=== PATIENT | female | born 1995 | race Caucasian/White ===

== ENCOUNTER 2024-03-23 15:34 | Emergency (ER) | payer BC, SELFPAY ==
[2024-03-23 16:20] VITALS: BP 113/81; PULSE 93; TEMP 36.9; O2SAT 99; BMI 24.4
== END 2024-03-23 18:02 | disposition left against medical advice (07) ==
PROVIDERS: Emergency Provider Emergency Medicine; PCP Family Medicine
DX: Z53.21 Procedure and treatment not carried out due to patient leaving prior to being seen by health care provider (principal)
CPT/HCPCS: 80048

== ENCOUNTER 2024-04-03 11:41 | Outpatient (OUT) | payer BC, SELFPAY ==
--- OUTSIDE RECORDS SUMMARY | 2024-04-03 12:04 | XMS_ITS | CCD ---
Author Organization [facility] [employer] Care Team Providers Care Portfolio Management Marketing Name Role Phone PRIYANKA, CHRISTOPHER Unavailable Unavailable PRIYANKA, CHRISTOPHER Unavailable Unavailable PRIYANKA, CHRISTOPHER Unavailable Unavailable PRIYANKA, CHRISTOPHER Unavailable Unavailable KARASIK, DR EASTON Attending Unavailable KARASIK, DR EASTON Admitting Unavailable KARASIK, DR EASTON Consulting Unavailable KARASIK, DR EASTON Attending Unavailable KARASIK, DR EASTON Admitting Unavailable KARASIK, DR EASTON Consulting Unavailable ZIEBER, DR BAILEY Potter Consulting Unavailable KARASIK, DR EASTON Admitting Unavailable KARASIK, DR EASTON Consulting Unavailable KARASIK, DR EASTON Attending Unavailable REQUEST, DR NONE LISTED Primary Care Unavaila ble ZIEBER, DR BAILEY Potter Consulting Unavailable INGRID, DR PIERRE Admitting Unavailable REQUEST, NONE LISTED Primary Care Unavaila ble INGRID, DR PIERRE Consulting Unavailable INGRID, DR PIERRE Attending Unavailable REQUEST, NONE LISTED Primary Care Unavaila ble INGRID, DR PIERRE Consulting Unavailable INGRID, DR PIERRE Attending Unavailable INGRID, DR PIERRE Admitting Unavailable KARASIK, DR EASTON Admitting Unavailable KARASIK, DR EASTON Consulting Unavailable KARASIK, DR EASTON Attending Unavailable KARASIK, DR EASTON Admitting Unavailable KARASIK, DR EASTON Consulting Unavailable KARASIK, DR EASTON Attending Unavailable REQUEST, NONE LISTED Primary Care Unavaila ble INGRID, DR PIERRE Admitting Unavailable REQUEST, NONE LISTED Primary Care Unavaila ble INGRID, DR PIERRE Attending Unavailable INGRID, DR PIERRE Procedure Practitioner Unavailab le REQUEST, NONE LISTED Primary Care Unavaila ble INGRID, DR PIERRE Attending Unavailable INGRID, DR PIERRE Consulting Unavailable INGRID, DR PIERRE Admitting Unavailable AGUBOSIMLIANE Consulting Unavailable KULWANTKOSKSHIREEN PERSAUD Consulting Unavailable KANDACE LOPEZ Consulting Unavailable KARASIK, DR EASTON Admitting Unavailable KARASIK, DR EASTON Consulting Unavailable KARASIK, DR EASTON Attending Unavailable REQUEST, NONE LISTED Primary Care Unavaila ble KARASIK, DR EASTON Admitting Unavailable KARASIK, DR EASTON Consulting Unavailable KARASIK, DR EASTON Attending Unavailable REQUEST, NONE LISTED Primary Care Unavaila ble KARASIK, DR EASTON Admitting Unavailable KARASIK, DR EASTON Consulting Unavailable KARASIK, DR EASTON Attending Unavailable REQUEST, NONE LISTED Primary Care Unavaila ble WEST, DR DESTINY Childs Consulting Unavailable Nabil Mcgraw Unavailable Adin Gan Unavailable DO Adin Gan Primary Care Provider DO Adin Gan Attending Provider Claribel Mora Unavailable DO Yaz Hollis Primary Care Provider CHARLEEN Genao Emergency Provider Yaz Hollis Primary Care Unavailable Surjit Stanton Attending Unavailable Surjit Stanton Admitting Unavailable Vianney Genao Admitting Unavailable Yaz Hollis Primary Care Unavailable Vianney Genao Attending Unavailable John Hollis DO Primary Care Provider Enoch Villalobos DO Unavailable JOHN HOLLIS Attending Unavailable JOHN HOLLIS Referring Unavailable RICARDO POWELL Attending Unavailable JOHN HOLLIS Referring Unavailable RICARDO PWOELL Attending Unavailable RICARDO POWELL Referring Unavailable Allergies Allergy Classification Reported Allergen(s) Allergy Type Date of Onset Reaction(s) Facility (1 source) black walnut pollen extract Drug Allergy [facility] Repository (3 sources) Codeine Drug Allergy 04-28-19 21 Hives [facility] (3 sources) Penicillins Drug allergy (disorder) 04-28-19 21 Hives [facility] (1 source) Plasmin Drug Allergy 10-17-19 22 [facility] (1 source) Sulfamethoxazole / Trimethoprim Drug Allergy 10-17-19 22 [facility] (1 source) Sulfonamides (Antibiotic) Drug allergy (disorder) 10-17-19 [facility] (10 sources) Codeine Drug Allergy 04-07-19 24 hives, Unknown [facility] Healthcare Work Phone: (9 sources) Penicillin Drug Allergy [facility] [employer] Other (9 sources) Sulfamethoxazole / Trimethoprim Drug Allergy [facility] [employer] Other (3 sources) Sulfamethoxazole; Translations: [sulfamethoxazole] Drug Allergy 04-28-19 21 Swelling of Lip/Tongue/Thr oat, Swelling of Lip/Tongue/Thr oat, [facility] (3 sources) Trimethoprim; Translations: [trimethoprim] Drug Allergy 04-28-19 21 Swelling of Lip/Tongue/Thr oat, Swelling of Lip/Tongue/Thr oat, [facility] (1 source) Codeine Drug Allergy 03-04-20 [facility] Repository (1 source) Penicillins Drug allergy (disorder) 03-04-20 [facility] Repository (1 source) penicillAMINE Drug Allergy 04-07-19 24 Unknown [facility] Healthcare (1 source) Penicillin G Drug Allergy 04-12-19 [facility] Healthcare Work Phone: (1 source) Sulfamethoxazole / Trimethoprim Drug Allergy 04-12-19 [facility] Healthcare (1 source) Sulfonamides (Antibiotic) Drug Allergy 04-07-19 Unknown [facility] (1 source) SUMAtriptan Drug Allergy 04-07-19 [facility] Healthcare Medications Current Medications Medication Drug Class(es) Dates Sig (Normalized) Sig (Original) busPIRone hydrochloride 5 mg oral tablet (6 sources) Start: 05-25-2022 take 1 tablet by mouth every twelve hours busPIRone HCl 5 MG 1 tablet Orally Twice a day for 30 days May, Active citalopram 20 mg oral tablet (8 sources) Serotonin Reuptake Inhibitor Start: 04-12-2023 take 1 tablet by mouth in the morning citalopram (CeleXA) 20 MG tablet Indications: Moderately severe depression (CMS/HCC) Take 1 tablet (20 mg) by mouth in the morning. 90 tablet 1 04/12/2023 Active Start: 06-04-2022 take 1 tablet by deshawn th every twenty-four hours Citalopram Hydrobromide 20 MG 1 tablet Orally Once a day May, Active take 1 tablet by deshawn th every twenty-four hours Citalopram Hydrobromide 40 MG 1 tablet Orally Once a day for 90 days Active cyclobenzaprine hydrochloride 10 mg oral tablet (2 sources) Muscle Relaxant Start: 10-05-2023 take 10 mg by mouth three times daily Cyclobenzaprine Active 10 MG PO Three times daily November 25, 2023 12:00am escitalopram 10 mg oral tablet (1 source) Serotonin Reuptake Inhibitor Start: 05-07-2022 take 1 tablet by mouth every twenty-four hours Escitalopram Oxalate 10 MG 1 tablet Orally Once a day for 30 day(s) Apr, Active ethinyl estradiol 0.035 mg / norgestimate 0.25 mg oral tablet (11 sources) Progestin, Estrogen Start: 03-16-2023 take 1 tablet by mouth in the morning Sprintec 28 0.25-35 MG-MCG tablet Take 1 tablet by mouth in the morning. 03/16/2023 Active Start: 05-25-2022 take 1 tablet by deshawn th every twenty-four hours Sprintec 28 0.25-35 MG-MCG 1 tablet Orally Once a day for 28 days May, Active Start: 04-28-2020 End: 06-14-2023 take 1 tablet by mouth once daily Norgestimate-Ethinyl Estradiol (Sprintec (28)) 0.25-35 mg-mcg tablet Discontinued 1 TAB PO Daily April 28, 2020 1:00am June 14, 2023 11:44am Start: 04-28-2020 take 1 tablet by mouth once da shannon Norgestimate-Ethinyl Estradiol (Sprintec (28)) 0.25-35 mg-mcg tablet Active 1 TAB PO Daily April 28, 2020 1:00am fluconazole 50 mg oral tablet (1 source) Azole Antifungal Start: 12-02-2022 Fluconazole 50 MG 1 tablet Orally once, can repeat dose in 2-3 days if symptoms are persisting for 2 days Nov, Active fluticasone propionate 0.05 mg/actuat metered dose nasal spray (1 source) Corticosteroid Start: 06-16-2023 take 1-2 spray(s) nasal route once daily fluticasone (Flonase) 50 MCG/ACT nasal spray Indications: Strep pharyngitis Administer 1-2 sprays into each nostril Daily Shake gently. Before first use, prime pump. After use, clean tip and replace cap 16 g 3 06/16/2023 Active methylPREDNISolone 4 mg oral tablet (1 source) Corticosteroid Start: 11-25-2023 take 1 tablet by mouth once Methylprednisolone (Medrol (Jose Ramon)) 4 mg tablets,dose pack Active 0 PO .COMPLEX November 25, 2023 12:00am orally per package directions metoclopramide 10 mg oral tablet (1 source) Dopamine-2 Receptor Antagonist Start: 03-10-2024 End: 04-09-2024 metoclopramide (Reglan) 10 MG tablet Indications: Nausea and vomiting in Take 1 tablet (10 mg) by mouth in the morning and 1 tablet (10 mg) at noon and 1 tablet (10 mg) in the evening. Take before meals. Take 1 tablet by mouth 30 minutes prior to meals 3 times daily as needed for nausea.. 90 tablet 03/10/2024 04/09/2024 Active Norgest[employer]-Ethinyl Estradiol (Sprintec (28)) 0.25-35 mg-mcg tablet (1 source) Start: 06-14-2023 take 1 tablet by mouth once daily Norgestimate-Ethinyl Estradiol (Sprintec (28)) 0.25-35 mg-mcg tablet Active 1 TAB PO Daily June 14, 2023 11:44am promethazine hydrochloride 12.5 mg oral tablet (1 source) Phenothiazine Start: 03-08-2024 End: 06-06-2024 take 1 tablet by mouth every six hours as needed for nausea and nausea, then take 1 tablet by mouth every six hours as needed for nausea and nausea promethazine (Phenergan) 12.5 MG tablet Indications: Nausea and vomiting in Take 1 tablet (12.5 mg) by mouth every 6 (six) hours if needed for nausea or vomiting Take 1 tablet by mouth every 6 hours as needed for nausea. 30 tablet 2 03/08/2024 06/06/2024 Active valACYclovir 500 mg oral tablet (1 source) Herpesvirus Nucleoside Analog DNA Polymerase Inhibitor, Herpes Simplex Virus Nucleoside Analog DNA Polymerase Inhibitor, Herpes Zoster Virus Nucleoside Analog DNA Polymerase Inhibitor Start: 07-27-2023 take 1 tablet by mouth twice daily at bedtime valACYclovir (Valtrex) 500 MG tablet Indications: Recurrent cold sores TAKE 1 TABLET BY MOUTH 2 TIMES A DAY IN THE MORNING AND BEFORE BEDTIME FOR 3 DAYS 6 tablet 07/27/2023 Active Completed/Discontinued Medications Medication Drug Class(es) Dates Sig (Normalized) Sig (Original) acetaminophen 500 mg oral tablet (2 sources) Start: 07-01-2019 End: 04-28-2020 take 1000 mg by mouth every six hours Acetaminophen Discontinued 1000 MG PO Q6H July 01, 2019 12:00am April 28, 2020 4:44pm ciprofloxacin 250 mg oral tablet (2 sources) Quinolone Antimicrobial Start: 06-05-2017 End: 07-01-2018 take 1 tablet by mouth every twelve hours Ciprofloxacin Hcl (Cipro) 250 mg Tablet Discontinued 250 MG PO Q12H June 05, 2017 12:00am July 01, 2018 7:28pm docusate sodium 100 mg oral capsule (2 sources) Start: 07-01-2019 End: 04-28-2020 take 1 capsule by mouth once daily at bedtime Docusate Sodium (Dok) 100 mg Capsule Discontinued 100 MG PO Daily at bedtime July 01, 2019 12:00am April 28, 2020 4:44pm doxycycline hyclate 100 mg oral capsule (2 sources) Tetracycline-class Drug Start: 05-09-2017 End: 06-05-2017 take 100 mg by mouth twice daily Doxycycline Hyclate Discontinued 100 MG PO Twice daily 20 May 09, 2017 1:00am June 05, 2017 1:56pm ibuprofen 600 mg oral tablet (2 sources) Nonsteroidal Anti-inflammatory Drug Start: 07-01-2019 End: 04-28-2020 take 600 mg by mouth every six hours Ibuprofen Discontinued 600 MG PO Every 6 hours July 01, 2019 12:00am April 28, 2020 4:44pm metroNIDAZOLE 500 mg oral tablet (2 sources) Nitroimidazole Antimicrobial Start: 05-09-2017 End: 05-16-2017 take 1 tablet by mouth twice daily Metronidazole (Flagyl) 500 mg tablet Discontinued 500 MG PO Twice daily 14 May 09, 2017 1:00am May 16, 2017 1:07am Vo-Ll-Kkvf-Fa-Herba l Cmplx#190 (Vitamin D3 Complete) 18 mg iron-800 mcg-150 mg Tablet (2 sources) Start: 05-09-2017 End: 06-05-2017 Dv-Zi-Witm-FaLin jose Cmplx#190 (Vitamin D3 Complete) 18 mg iron-800 mcg-150 mg Tablet Discontinued TABLET May 09, 2017 1:00am June 05, 2017 1:56pm nitrofurantoin, macrocrystals 50 mg oral capsule (2 sources) Nitrofuran Antibacterial Start: 05-09-2017 End: 06-05-2017 take 50 mg by mouth every six hours Nitrofurantoin Macrocrystal Discontinued 50 MG PO Q6H May 09, 2017 1:00am June 05, 2017 1:56pm ondansetron 4 mg oral tablet (3 sources) Serotonin-3 Receptor Antagonist Start: 06-29-2019 End: 07-01-2019 Ondansetron Hcl (Zofran) 4 mg Tablet Discontinued 4 MG PO every 6 to 8 hours June 29, 2019 12:00am July 01, 2019 12:44pm take 1 tablet by deshawn th every eight hours as needed for nausea and vomiting ondansetron ODT (Zofran-ODT) 4 MG disintegrating tablet Take 4 mg by mouth every 8 (eight) hours if needed for nausea or vomiting Active phenazopyridine hydrochloride 200 mg oral tablet (2 sources) Start: 05-09-2017 End: 06-05-2017 take 1 tablet by mouth three times daily Phenazopyridine (Pyridium) 200 mg tablet Discontinued 200 MG PO Three times daily 10 May 09, 2017 1:00am June 05, 2017 1:56pm administer with a full glass of water with each meal Problems Active Problems Problem Classification Problem Date Documented Da te Episodic/Chronic Anxiety disorders (14 sources) Generalized anxiety disorder; Translations: [Generalized anxiety disorder] Chronic Contraceptive and procreative management (2 sources) Encounter for other contraceptive management; Translations: [Patient encounter status] Episodic Esophageal disorders (1 source) Gastroesophageal reflux disease; Translations: [Gastro-esophageal reflux disease without esophagitis] Onset: 04-07-2023 Chronic Headache; including migraine (4 sources) Tension-type headache; Translations: [Tension-type headache, unspecified, not intractable] Onset: 4 Chronic Headache; including migraine (1 source) Headache; Translations: [Headache] 11-25-2023 Episodic Headache; including migraine (1 source) Headache; including migraine; Translations: [Headache, unspecified] Onset: 4 Hepatitis (9 sources) Chronic hepatitis C; Translations: [Chronic viral hepatitis C] Chronic Immunizations and screening for infectious disease (5 sources) Encounter for screening for human papillomavirus (HPV); Translations: [Encounter for screening for infections with a predominantly sexual mode of transmission] Onset: 2 Episodic Inflammatory diseases of female pelvic organs (2 sources) Bacterial vaginosis; Translations: [Acute vaginitis] 05-09-2017 Episodic Malaise and fatigue (8 sources) Fatigue; Translations: [Chronic fatigue, unspecified] Chronic Menstrual disorders (2 sources) Missed period; Translations: [Irregular menstruation, unspecified] Onset: 4 03-24-2024 Chronic Mood disorders (1 source) Moderately severe depression; Translations: [Moderately severe depression] Onset: 4 04-07-2023 Chronic Nausea and vomiting (1 source) Nausea with vomiting, unspecified; Translations: [Nausea with vomiting, unspecified] Onset: 4 Episodic Open wounds of head; neck; and trunk (2 sources) Laceration - injury; Translations: [Laceration] 04-28-2020 Episodic Other complications of (1 source) Vomiting of , unspecified; Translations: [Unspecified vomiting of , unspecified as to episode of care or not applicable] 03-24-2024 Episodic Other congenital anomalies (1 source) Birthmark; Translations: [Congenital non-neoplastic nevus] Onset: 4 04-07-2023 Chronic Other gastrointestinal disorders (1 source) Constipation, unspecified Episodic Other infections; including parasitic (2 sources) Personal history of other infectious and parasitic diseases; Translations: [PERSONAL HX OTH INF AND PARASITIC DZ] Onset: 2 Episodic Other infections; including parasitic (9 sources) History of hepatitis C; Translations: [Personal history of other infectious and parasitic diseases] Episodic Other nervous system disorders (1 source) Reduced concentration; Translations: [Attention and concentration deficit] Chronic Other nervous system disorders (1 source) Attention and concentration deficit Chronic Other and delivery including normal (11 sources) Encounter for routine follow-up; Translations: [Single live ] Onset: 2 Episodic Other screening for suspected conditions (not mental disorders or infectious disease) (19 sources) Encounter for screening for malignant neoplasm of cervix; Translations: [Encounter for screening for Streptococcus B] Onset: 2 Episodic Otitis media and related conditions (1 source) Other specified disorders of Eustachian tube, unspecified ear Episodic Residual codes; unclassified (1 source) Gestation period, 8 weeks; Translations: [8 weeks gestation of ] 03-24-2024 Episodic Spontaneous (2 sources) with abortive outcome; Translations: [Incomplete spontaneous without complication] 07-05-2018 Episodic Thyroid disorders (1 source) Goiter; Translations: [Nontoxic goiter, unspecified] Onset: 4 04-07-2023 Chronic Unclassified (1 source) Unknown / UNK(Unknown) Onset: 8 Unclassified (1 source) CONTACT W/AND (SUSP) EXPOS COVID-19; Translations: [CONTACT W/AND (SUSP) EXPOS COVID-19] Onset: 2 Urinary tract infections (2 sources) Urinary tract infectious disease; Translations: [Urinary tract infection, site not specified] 05-09-2017 Episodic Past or Other Problems Problem Classification Problem Date Documented Da te Episodic/Chronic Diabetes mellitus without complication (4 sources) Hyperglycemia, unspecified; Translations: [HYPERGLYCEMIA UNSPECIFIED] Onset: 07-21-2021 Episodic Other gastrointestinal disorders (5 sources) Constipation; Translations: [Constipation, unspecified] Onset: 04-07-2023 06-05-2017 Episodic Polyhydramnios and other problems of amniotic cavity (8 sources) Other specified disorders of amniotic fluid and membranes, second trimester, not applicable or unspecified; Translations: [Other specified disorders of amniotic fluid and membranes, unspecified trimester, not applicable or unspecified] Onset: 04-03-2021 Episodic Previous (3 sources) Maternal care for unspecified type scar from previous delivery; Translations: [MAT CARE UNS TYPE SCAR PREV C-SECT] Onset: 10-16-2021 Episodic Residual codes; unclassified (1 source) 39 weeks gestation of ; Translations: [39 WEEKS GESTATION OF ] Onset: 10-22-2021 Episodic Residual codes; unclassified (1 source) 16 weeks gestation of ; Translations: [16 WEEKS GESTATION OF ] Onset: 05-13-2021 Episodic Residual codes; unclassified (1 source) 11 weeks gestation of ; Translations: [11 WEEKS GESTATION OF ] Onset: 04-08-2021 Episodic Spondylosis; intervertebral disc disorders; other back problems (2 sources) Cervical radiculopathy; Translations: [Radiculopathy, cervical region] Onset: 11-25-2023 11-25-2023 Episodic Unclassified (1 source) Z02.83 F19.21 Z13.6 N39.0 Onset: 04-21-2017 Unclassified (1 source) Vaginal ab B37.31 Results Test Name Value Interpretation Reference Range Facility HCG ( test) Ql (U)o n 03-24-2024 Interpretation and review of laboratory results Abnormal [facility] Preg Test, Ur Positive Negative [facility] OB TRANSVAGINALon 025 US OB TRANSVAGINAL TITLE OF EXAM: US OB TRANSVAGINAL REASON FOR EXAM: Dating TECHNIQUE: Grayscale, color, and M-mode Doppler evaluation of the pelvis COMPARISON: None PATIENT : 1995 PREGNANCIES: : 5, Para: 2, Aborta: 2 LMP: 01/21/2024 ALINA by LMP: 10/27/2024 GA by LMP: 9 weeks, 0 days FINDINGS: AUA: 8 weeks, 5 days (+/-5 days) ALINA by US: 10/29/2024 Uterus: There is a gestational sac and 0.4 cm yolk sac within the uterine body/fundus. Live embryo within the gestational sac without evident abnormality. Gestational sac 3.2 x 2.3 x 5.5 cm (8 weeks, 6 days). [place] rump length is 2.1 cm (8 weeks, 5 days). heart rate is 164 bpm. No appreciable subchorionic hemorrhage or other abnormality. Cervical length 4.1 cm. No appreciable funneling. Right ovary: 3.0 x 2.2 x 1.5 cm (volume 5.3 mL. Normal color flow. Thin-walled, anechoic, avascular simple cyst or corpus luteum, 1.4 cm. Left ovary: 2.0 x 1.4 x 1.5 cm (volume 2.2 mL). Normal color flow. No appreciable nodule/mass. IMPRESSION: Single live intrauterine gestation sonographically measuring 8 weeks, 5 days. No appreciable abnormality of the evaluated and maternal structures. DICTATED ON: 03/24/2024 9:33 AM This report has been electronically signed and approved by the interpreting radiologist. Normal Not Available Comment on above: Order Comment: US OB TRANSVAGINAL No LMP recorded. Urinalysis macro (dipstick) panel (U)on 03-24-2024 Bilirubin, UA Positive Negative - 4(70) +++ mg/dL [facility] Comment on above: small Blood, UA Negative Negative - 50 Jsoiah/mcL [facility] Clarity, UA Clear [facility] Color, UA Yellow [facility] Glucose, UA Negative Negative - 2000(110) ++++ mg/dL [facility] Interpretation and review of laboratory results Abnormal [facility] Ketones, UA Positive Negative - 160(16) ++++ mg/dL [facility] Comment on above: trace Leukocytes, UA Positive Negative - 500+++ Archana/mcL [facility] Comment on above: small Nitrite, UA Negative Negative - Positive [facility] pH, UA 6.5 5 - 9 [facility] Protein, UA Positive Negative - 2000(20) ++++ mg/dL [facility] Comment on above: 30 mg Spec Grav, UA 1.025 1 - 1.03 [facility] Urobilinogen, UA 1.0 0.2 - 12 mg/dL [facility] Basic Metabolic Panelon - Anion gap [Moles/Vol] 12.2 mmol/L Normal 6.0-15.0 [facility] Comment on above: Performed By: #### L IPASE, HCGQNT, BMP, HEPATIC, SCAN CBC #### [facility] [address] Calcium [Mass/Vol] 9.4 mg/dL Normal 8.6-10.3 [facility] Comment on above: Performed By: #### L IPASE, HCGQNT, BMP, HEPATIC, SCAN CBC #### [facility] [address] [place] [address] [place] Chloride [Moles/Vol] 109 mmol/L High 98-107 [facility] Comment on above: Performed By: #### L IPASE, HCGQNT, BMP, HEPATIC, SCAN CBC #### [facility] [address] CO2 [Moles/Vol] 21.1 mmol/L Normal 21.0-31.0 [facility] Comment on above: Performed By: #### L IPASE, HCGQNT, BMP, HEPATIC, SCAN CBC #### [facility] [address] [place] [address] [place] Creatinine [Mass/Vol] 0.60 mg/dL Normal 0.60-1.20 [facility] Comment on above: Performed By: #### L IPASE, HCGQNT, BMP, HEPATIC, SCAN CBC #### [place] [address] [place] Creatinine Clr Calc Pharmacy 122.59 Normal [facility] Comment on above: Performed By: #### L IPASE, HCGQNT, BMP, HEPATIC, SCAN CBC #### [facility] [address] [place] [address] [place] GFR/1.73 sq M.predicted MDRD (S/P/Bld) [Vol rate/Area] mL/min/{1.73_m2} Normal [facility] Comment on above: Performed By: #### L IPASE, HCGQNT, BMP, HEPATIC, SCAN CBC #### [place] [address] [place] Glucose [Mass/Vol] 134 mg/dL High 70-100 [facility] Comment on above: Result Comment: [place] Glucose Reference Range is dependent on time and content of last meal. Glucose of more than 200 mg/dL in a nonstressed, ambulatory subject supports the diagnosis of Diabetes Mellitus. ADA recommended reference range Performed By: #### L IPASE, HCGQNT, BMP, HEPATIC, SCAN CBC #### [facility] [address] Potassium [Moles/Vol] 3.3 mmol/L Low 3.5-5.1 [facility] Comment on above: Performed By: #### L IPASE, HCGQNT, BMP, HEPATIC, SCAN CBC #### [facility] [address] [place] [address] [place] Sodium [Moles/Vol] 139 mmol/L Normal 136-145 [facility] Comment on above: Performed By: #### L IPASE, HCGQNT, BMP, HEPATIC, SCAN CBC #### [facility] [address] [place] [address] [place] Urea nitrogen [Mass/Vol] 8 mg/dL Normal 7-25 [facility] Comment on above: Performed By: #### L IPASE, HCGQNT, BMP, HEPATIC, SCAN CBC #### [place] [address] [place] Dipstick and Microscopicon 1 05-05-2023 Appearance (U) Clear Normal Clear [facility] Comment on above: Order Comment: Name Collection Type:: Clean-Voided Midstream Performed By: #### A DDONUAPLUS #### [address] Bacteria,Urine Rare Normal None Seen [facility] Comment on above: Order Comment: Name Collection Type:: Clean-Voided Midstream Performed By: #### A DDONUAPLUS #### [address] Bilirubin,Urine Negative Normal Negative [facility] Comment on above: Order Comment: Name Collection Type:: Clean-Voided Midstream Performed By: #### A DDONUAPLUS #### [place] [address] [place] Color (U) Light-Yellow Normal Yellow [facility] Comment on above: Order Comment: Name Collection Type:: Clean-Voided Midstream Performed By: #### A DDONUAPLUS #### [place] [address] [place] Glucose Ql (U) Normal Normal Normal [facility] Comment on above: Order Comment: Name Collection Type:: Clean-Voided Midstream Performed By: #### A DDONUAPLUS #### [facility] [address] [place] [address] [place] Hyaline Casts,Urine None Normal 0-8 [facility] Comment on above: Order Comment: Name Collection Type:: Clean-Voided Midstream Performed By: #### A DDONUAPLUS #### [facility] [address] [place] [address] [place] Ketones Ql (U) 2+ High Negative [facility] Comment on above: Order Comment: Name Collection Type:: Clean-Voided Midstream Performed By: #### A DDONUAPLUS #### [place] [id number] [place] Leukocyte esterase Test strip Ql (U) Negative Normal Negative [facility] Comment on above: Order Comment: Name Collection Type:: Clean-Voided Midstream Performed By: #### A DDONUAPLUS #### [place] [address] [place] Mucus,Urine 2+ Critically abnormal [facility] Comment on above: Order Comment: Name Collection Type:: Clean-Voided Midstream Result Comment: PERF ORMED BY: [place] [address] PATHOLOGIST PARK WORKER SUPERVISOR SARAH ANDREWS M.D. Performed By: #### A DDONUAPLUS #### [place] [address] [place] Nitrite,Urine Negative Normal Negative [facility] Comment on above: Order Comment: Name Collection Type:: Clean-Voided Midstream Performed By: #### A DDONUAPLUS #### [place] [id number] [place] Occult Blood,Urine Negative Normal Negative [facility] Comment on above: Order Comment: Name Collection Type:: Clean-Voided Midstream Result Comment: PERF ORMED BY: [place] [address] PATHOLOGIST PARK WORKER SUPERVISOR SARAH ANDREWS M.D. Performed By: #### A DDONUAPLUS #### [address] [address] [place] pH (U) 8.5 [pH] Normal 5.0-9.0 [facility] Comment on above: Order Comment: Name Collection Type:: Clean-Voided Midstream Performed By: #### A DDONUAPLUS #### [address] Protein (U) [Mass/Vol] 20 mg/dL High Negative [facility] Comment on above: Order Comment: Name Collection Type:: Clean-Voided Midstream Performed By: #### A DDONUAPLUS #### [address] RBC,Urine 3 [HPF] Normal 0-4 [facility] Comment on above: Order Comment: Name Collection Type:: Clean-Voided Midstream Performed By: #### A DDONUAPLUS #### [address] Specificy [place],Urine 1.023 Normal 1.001-1.03 0 [facility] Comment on above: Order Comment: Name Collection Type:: Clean-Voided Midstream Performed By: #### A DDONUAPLUS #### [address] Squamous Epithelial Cell,Urine 5 [HPF] High 0-2 [facility] Comment on above: Order Comment: Name Collection Type:: Clean-Voided Midstream Performed By: #### A DDONUAPLUS #### [address] Urobilinogen,Urine Normal Normal Normal [facility] Comment on above: Order Comment: Name Collection Type:: Clean-Voided Midstream Performed By: #### A DDONUAPLUS #### [address] WBC,Urine 1 [HPF] Normal 0-4 [facility] Comment on above: Order Comment: Name Collection Type:: Clean-Voided Midstream Performed By: #### A DDONUAPLUS #### [address] HCG,Quantitativeon 4 HCG,Quantitative [address].00 m[iU]/mL Normal T he [facility] Comment on above: Result Comment: Appr oximate Approximate hCG Gestational Age Range (mIU/ml) (weeks) 0.2-1 5-50 1-2 50-500 2-3 100-5,000 3-4 500-10,000 4-5 1,000-50,000 5-6 10,000-100,000 6-8 15,000-200,000 8-12 10,000-100,000 PERFORMED BY: [place] [address] PATHOLOGIST PARK WORKER SUPERVISOR SARAH ANDREWS M.D. Performed By: #### L IPASE, HCGQNT, BMP, HEPATIC, SCAN CBC #### [address] Hepatic Panelon 03-04-2024 Albumin [Mass/Vol] 4.6 g/dL Normal 3.5-5.7 [facility] Comment on above: Performed By: #### L IPASE, HCGQNT, BMP, HEPATIC, SCAN CBC #### [address] Albumin/Globulin [Mass ratio] 1.6 {ratio} Normal [facility] Comment on above: Performed By: #### L IPASE, HCGQNT, BMP, HEPATIC, SCAN CBC #### [facility] [address] [place] [address] [place] ALP [Catalytic activity/Vol] 32 U/L Low 34-104 [facility] Comment on above: Performed By: #### L IPASE, HCGQNT, BMP, HEPATIC, SCAN CBC #### [facility] [address] [place] [address] [place] ALT [Catalytic activity/Vol] 16 U/L Normal 7-52 [facility] Comment on above: Performed By: #### L IPASE, HCGQNT, BMP, HEPATIC, SCAN CBC #### [place] [address] [place] AST [Catalytic activity/Vol] 14 U/L Normal 13-39 [facility] Comment on above: Performed By: #### L IPASE, HCGQNT, BMP, HEPATIC, SCAN CBC #### [address] Bilirubin [Mass/Vol] 0.7 mg/dL Normal 0.3-1.0 [facility] Comment on above: Performed By: #### L IPASE, HCGQNT, BMP, HEPATIC, SCAN CBC #### [address] Bilirubin,Indirect 0.6 mg/dL Normal [facility] Comment on above: Performed By: #### L IPASE, HCGQNT, BMP, HEPATIC, SCAN CBC #### [address] Bilirubin.indirect [Mass/Vol] 0.10 mg/dL Normal 0.03-0.18 [facility] Comment on above: Performed By: #### L IPASE, HCGQNT, BMP, HEPATIC, SCAN CBC #### [address] Globulin (S) [Mass/Vol] 2.9 g/dL Normal [facility] Comment on above: Performed By: #### L IPASE, HCGQNT, BMP, HEPATIC, SCAN CBC #### [address] Protein [Mass/Vol] 7.5 g/dL Normal 6.4-8.9 [facility] Comment on above: Performed By: #### L IPASE, HCGQNT, BMP, HEPATIC, SCAN CBC #### [address] Lipaseon 03-04-2024 Lipase [Catalytic activity/Vol] 15.0 U/L Normal 11.0-82.0 [facility] Comment on above: Performed By: #### L IPASE, HCGQNT, BMP, HEPATIC, SCAN CBC #### [address] Scan and CBCon 03-04-2024 Anisocytosis Ql (Bld) Slight Normal [facility] Comment on above: Performed By: #### L IPASE, HCGQNT, BMP, HEPATIC, SCAN CBC #### [address] Basophils (Bld) [#/Vol] 0.0 10*3/uL Normal 0.0-0.2 [facility] Comment on above: Performed By: #### L IPASE, HCGQNT, BMP, HEPATIC, SCAN CBC #### [address] Basophils/100 WBC (Bld) 0.6 % Normal . [facility] Comment on above: Performed By: #### L IPASE, HCGQNT, BMP, HEPATIC, SCAN CBC #### [address] Eosinophils (Bld) [#/Vol] 0.0 10*3/uL Normal 0.0-0.45 [facility] Comment on above: Performed By: #### L IPASE, HCGQNT, BMP, HEPATIC, SCAN CBC #### [address] Eosinophils/100 WBC (Bld) 0.2 % Normal . [facility] Comment on above: Performed By: #### L IPASE, HCGQNT, BMP, HEPATIC, SCAN CBC #### [address] Erythrocyte distribution width (RBC) [Ratio] 14.6 % Normal 11.9-15.3 [facility] Comment on above: Performed By: #### L IPASE, HCGQNT, BMP, HEPATIC, SCAN CBC #### [address] Hematocrit (Bld) [Volume fraction] 38.2 % Normal 34.0-46.4 [facility] Comment on above: Performed By: #### L IPASE, HCGQNT, BMP, HEPATIC, SCAN CBC #### [address] Hemoglobin (Bld) [Mass/Vol] 12.9 g/dL Normal 11.8-15.4 [facility] Comment on above: Performed By: #### L IPASE, HCGQNT, BMP, HEPATIC, SCAN CBC #### [address] Lymphocytes (Bld) [#/Vol] 1.3 10*3/uL Normal 1.00-4.8 [facility] Comment on above: Performed By: #### L IPASE, HCGQNT, BMP, HEPATIC, SCAN CBC #### [address] Lymphocytes/100 WBC (Bld) 17.1 % Normal . [facility] Comment on above: Performed By: #### L IPASE, HCGQNT, BMP, HEPATIC, SCAN CBC #### [address] MCH (RBC) [Entitic mass] 29.4 pg Normal 24.7-34.3 [facility] Comment on above: Performed By: #### L IPASE, HCGQNT, BMP, HEPATIC, SCAN CBC #### [address] MCV (RBC) [Entitic vol] 86.9 fL Normal 80-100 [facility] Comment on above: Performed By: #### L IPASE, HCGQNT, BMP, HEPATIC, SCAN CBC #### [address] Mean Corpuscular HGB Conc 33.8 g/dL Normal 32.0-35.0 [facility] Comment on above: Performed By: #### L IPASE, HCGQNT, BMP, HEPATIC, SCAN CBC #### [address] Microcytosis Slight Normal [facility] Comment on above: Performed By: #### L IPASE, HCGQNT, BMP, HEPATIC, SCAN CBC #### [address] Monocytes (Bld) [#/Vol] 0.3 10*3/uL Normal 0.0-0.8 [facility] Comment on above: Performed By: #### L IPASE, HCGQNT, BMP, HEPATIC, SCAN CBC #### [place] [address] [place] Monocytes/100 WBC (Bld) 15.87 % Normal 0.00-20.00 [facility] Comment on above: Performed By: #### L IPASE, HCGQNT, BMP, HEPATIC, SCAN CBC #### [address] Monocytes/100 WBC (Bld) 4.4 % Normal . [facility] Comment on above: Performed By: #### L IPASE, HCGQNT, BMP, HEPATIC, SCAN CBC #### [address] Neutrophils (Bld) [#/Vol] 6.0 10*3/uL Normal 1.8-7.7 [facility] Comment on above: Performed By: #### L IPASE, HCGQNT, BMP, HEPATIC, SCAN CBC #### [address] Neutrophils/100 WBC (Bld) 77.7 % Normal . [facility] Comment on above: Performed By: #### L IPASE, HCGQNT, BMP, HEPATIC, SCAN CBC #### [address] NRBC% 0.0 /100{WBC} Normal 0-0.5 [facility] Comment on above: Performed By: #### L IPASE, HCGQNT, BMP, HEPATIC, SCAN CBC #### [address] Platelet Estimate Normal Normal Normal [facility] Comment on above: Performed By: #### L IPASE, HCGQNT, BMP, HEPATIC, SCAN CBC #### [address] Platelet mean volume (Bld) [Entitic vol] 11.5 fL High 6.3-10.[address] [facility] Comment on above: Performed By: #### L IPASE, HCGQNT, BMP, HEPATIC, SCAN CBC #### [address] Platelet Morphology Normal Normal Normal [facility] Comment on above: Result Comment: PERF ORMED BY: [place] [address] PATHOLOGIST PARK WORKER SUPERVISOR SARAH ANDREWS M.D. Performed By: #### L IPASE, HCGQNT, BMP, HEPATIC, SCAN CBC #### [address] Platelets (Bld) [#/Vol] 182 10*3/uL Normal 150-450 [facility] Comment on above: Performed By: #### L IPASE, HCGQNT, BMP, HEPATIC, SCAN CBC #### [address] RBC (Bld) [#/Vol] 4.40 10*6/uL Normal 3.60-5.00 [facility] Comment on above: Performed By: #### L IPASE, HCGQNT, BMP, HEPATIC, SCAN CBC #### [address] RBC morphology finding Nom (Bld) Normal Normal Normal [facility] Comment on above: Performed By: #### L IPASE, HCGQNT, BMP, HEPATIC, SCAN CBC #### [address] WBC (Bld) [#/Vol] 7.7 10*3/uL Normal 3.8-11.6 [facility] Comment on above: Performed By: #### L IPASE, HCGQNT, BMP, HEPATIC, SCAN CBC #### [address] cervical spine wo conon 0 11-25-2023 CT cervical spine wo con [facility] [employer] [address] [place] [address] CT Scan Report Signed Patient: Nicole Farris MR#: [id number] : 1995 Acct:[id number] Age/Sex: 28 / F ADM Date: 11/25/23 Loc: ER Room: Type: [facility] ER Attending Dr: Copies to: Vianney Genao APRN Ordering Provider: Vianney Genao APRN Date of Service: 11/25/23 CT/CT cervical spine wo con: increased pain ([id number]) CT/CT head/brain wo con: pain CLINICAL DATA: Migraine headaches and neck pain since yesterday. CT BRAIN WITHOUT CONTRAST: COMPARISON: None TECHNIQUE: Contiguous axial unenhanced images were obtained through the brain. This CT exam was performed using one or more following dose reduction techniques: Automated exposure control, adjustment of the mA and/or kV according to patient size, or use of iterative reconstruction technique. FINDINGS: The ventricles are normal in size and position. There are no areas of abnormal attenuation. There is no hemorrhage, mass effect or extra-axial collections. The imaged paranasal sinuses t mastoid air cells are clear. CT/CT head/brain wo con IMPRESSION: NO ACUTE INTRACRANIAL ABNORMALITY. CT CERVICAL SPINE WITHOUT CONTRAST WITH 3D RECONSTRUCTIONS: COMPARISON: None TECHNIQUE: Spiral axial unenhanced images were obtained through the cervical spine. Sagittal, coronal and 3D volume-rendered reconstructions were also reviewed. This CT exam was performed using one or more following dose reduction techniques: Automated exposure control, adjustment of the mA and/or kV according to patient size, or use of iterative reconstruction technique. FINDINGS: There is slight cervicothoracic dextroscoliotic curvature. There is straightening of the normal cervical lordosis. Alignment is maintained in the sagittal plane. No fractures are identified. The disc spaces are uniform. No significant discovertebral degenerative change is identified. The atlantoaxial relationship is maintained. No prevertebral soft tissue swelling is seen. Shotty cervical lymph nodes are present. The upper imaged lungs show no contributory findings. IMPRESSION: LOSS OF NORMAL CERVICAL CURVATURE. THIS COULD BE RELATED TO POSITIONING OR MUSCLE SPASM. NO ACUTE BONY FINDINGS. Impression dictated by: Priscila Barbosa M.D.11/25/2023 7:01 PM Dictation Location: [place] [address] Transcribed By: [facility] 11/25/231900 Dictated By: Priscila Barbosa MD 11/25/23 367 Signed By: 11/25/231900 Normal [facility] XR CERVICAL SPINE 2-3 VIEWSo n 10-05-2023 XR CERVICAL SPINE 2-3 VIEWS FINDINGS: Vertebral bodies are normally aligned. Vertebral body heights and disc space heights are well maintained. No significant osteophyte formation. Minimal diffuse facet arthropathy. No acute fracture or dislocation is identified. Soft tissues are unremarkable. IMPRESSION: Minimal arthritis, normal alignment TRANSCRIBED BY: ELECTRONICALLY SIGNED BY: Davon Coles MD Normal Not Available Alanine aminotransferase [En zymatic activity/volume] in Serum or PlasmaOrdered By: Adin Gan on 06-04-2022 ALT [Catalytic activity/Vol] 47 U/L Normal 7-52 U/L [facility] Albumin [Mass/volume] in Ser um or Plasma by Bromocresol green (BCG) dye binding methoOrdered By: Adin Gan on 06-04-2022 Albumin BCG dye [Mass/Vol] 4.9 g/dL 3.5-5.7 [facility] Alkaline phosphatase [Enzyma tic activity/volume] in Serum or PlasmaOrdered By: Adin Gan on 06-04-2022 ALP [Catalytic activity/Vol] 104 U/L Normal 34-104 U/L [facility] Aspartate aminotransferase [ Enzymatic activity/volume] in Serum or PlasmaOrdered By: Adin Gan on 06-04-2022 AST [Catalytic activity/Vol] 23 U/L Normal 13-39 U/L [facility] Bilirubin.total [Mass/volume ] in Serum or PlasmaOrdered By: Adin Gan on 06-04-2022 Bilirubin [Mass/Vol] 0.5 mg/dL 0.3-1.0 [facility] Calcium [Mass/volume] in Ser um or PlasmaOrdered By: Adin Gan on 06-04-2022 Calcium [Mass/Vol] 9.7 mg/dL 8.6-10.3 [facility] Carbon dioxide, total [Moles /volume] in Serum or PlasmaOrdered By: Adin Gan on 06-04-2022 CO2 [Moles/Vol] 27.2 mmol/L 21.0-31.0 [facility] Chloride [Moles/volume] in S mayte or PlasmaOrdered By: Adin Gan on 06-04-2022 Chloride [Moles/Vol] 104 mmol/L Normal 98-107 mmol/L [facility] Comprehensive Metabolic Pane blanquita 06-04-2022 Albumin [Mass/Vol] 4.512982 g/dL Normal 3.5-5.7 g/dL [facility] Bilirubin [Mass/Vol] 0.9569165 mg/dL Normal 0.3- 1.0 mg/dL [facility] Calcium [Mass/Vol] 9.7229944 mg/dL Normal 8.6-10 .3 mg/dL [facility] CO2 [Moles/Vol] 27.17943240 mmol/L Normal 21.0-3 1.0 mmol/L [facility] Creatinine [Mass/Vol] 0.48121366 mg/dL Normal 0. 60-1.20 mg/dL [facility] Potassium [Moles/Vol] 4.98641668 mmol/L Normal 3 .5-5.1 mmol/L [facility] Protein [Mass/Vol] 7.521185 g/dL Normal 6.4-8.9 g/dL [facility] Other Comprehensive Metabolic Panel 3.0 g/dL [facility] Creatinine [Mass/volume] in Serum or PlasmaOrdered By: Adin Gan on 06-04-2022 Creatinine [Mass/Vol] 0.71 mg/dL 0.60-1.20 [facility] Erythrocyte distribution wid th Auto (RBC) [Ratio]Ordered By: Adin Gan on 06-04-2022 Erythrocyte distribution width (RBC) [Ratio] 13.5 % 11.9-15.3 [facility] Erythrocytes [#/volume] in B lood by Automated countOrdered By: Adin Gan on 06-04-2022 RBC (Bld) [#/Vol] 4.44 10*6/uL Normal 3.60-5.00 [facility] Globulin Calc (S) [Mass/Vol] Ordered By: Adin Gan on 06-04-2022 Globulin (S) [Mass/Vol] 3.0 g/dL [facility] Glucose [Mass/volume] in Ser um or PlasmaOrdered By: Adin Gan on 06-04-2022 Glucose [Mass/Vol] 89 mg/dL Normal 74-109 mg/dL [facility] Comment on above: ADA recommended refe rence rangeRandom Glucose Reference Range is dependent on time and content of last meal. Glucose of more than 200 mg/dL in a nonstressed, ambulatory subject supports the diagnosis of Diabetes Mellitus. Hematocrit Auto (Bld) [Volum e fraction]Ordered By: Adin Gan on 06-04-2022 Hematocrit (Bld) [Volume fraction] 38.5 % 34.0-46.4 [facility] Hemoglobin [Mass/volume] in BloodOrdered By: Adin Gan on 06-04-2022 Hemoglobin (Bld) [Mass/Vol] 12.8 g/dL 11.8-15.4 [facility] Hemogram CBC Without Diffon 06-04-2022 Erythrocyte distribution width (RBC) [Ratio] 13.500 % Normal 11.9-15.3 % [facility] Hematocrit (Bld) [Volume fraction] 38.500 % Normal 34.0-46.4 % [facility] Hemoglobin (Bld) [Mass/Vol] 12.726929 g/dL Normal 11.8-15.4 g/dL [facility] MCH (RBC) [Entitic mass] 28.7000 pg Normal 24.7-34.3 pg [facility] MCV (RBC) [Entitic vol] 86.7000 fL Normal 80-100 fL [facility] Other Platelet mean volume (Bld) [Entitic vol] 11.1000 fL High 6.3-10.7 fL [facility] WBC (Bld) [#/Vol] 6.591317364 10*3/uL Normal 3.8 -11.6 10*3/uL [facility] Hemogram CBC Without Diff 33.1 g/dL Normal 32.0-35.0 g/dL [facility] [employer] Other Laboratory - Chemistry and C hemistry - challengeOrdered By: Adin Gan on 06-04-2022 GFR/1.73 sq M.predicted MDRD (S/P/Bld) [Vol rate/Area] mL/min/{1.73_m2} [facility] Leukocytes [#/volume] correc rossy for nucleated erythrocytes in Blood by Automated counOrdered By: Adin Gan on 06-04-2022 WBC corrected for nucl RBC Auto (Bld) [#/Vol] 6.6 10*3/uL 3.8-11.6 [facility] MCH Auto (RBC) [Entitic mass ]Ordered By: Adin Gan on 06-04-2022 MCH (RBC) [Entitic mass] 28.7 pg 24.7-34.3 [facility] MCHC Auto (RBC) [Mass/Vol]Or dered By: Adin Gan on 06-04-2022 MCHC (RBC) [Mass/Vol] 33.1 g/dL 32.0-35.0 [facility] MCV Auto (RBC) [Entitic vol] Ordered By: Adin Gan on 06-04-2022 MCV (RBC) [Entitic vol] 86.7 fL 80-100 [facility] No Panel InformationOrdered By: Adin Gan on 06-04-2022 Pharmacy Creatinine Clearance (Chem N/A [facility] Platelet mean volume Auto (B ld) [Entitic vol]Ordered By: Adin Gan on 06-04-2022 Platelet mean volume (Bld) [Entitic vol] 11.1 fL 6.3-10.7 [facility] Platelets [#/volume] in Bloo d by Automated countOrdered By: Adin Gan on 06-04-2022 Platelets (Bld) [#/Vol] 196 10*3/uL Normal 150-450 10*3/uL [facility] Potassium [Moles/volume] in Serum or PlasmaOrdered By: Adin Gan on 06-04-2022 Potassium [Moles/Vol] 4.1 mmol/L 3.5-5.1 [facility] Protein [Mass/volume] in Ser um or PlasmaOrdered By: Adin Gan on 06-04-2022 Protein [Mass/Vol] 7.9 g/dL 6.4-8.9 [facility] Serum or plasma albumin/glob ulin mass ratioOrdered By: Adin Gan on 06-04-2022 Albumin/Globulin [Mass ratio] 1.6 {ratio} [facility] Serum or plasma anion gap de terminationOrdered By: Adin Gan on 06-04-2022 Anion gap [Moles/Vol] 12.9 mmol/L 6.0-15.0 [facility] Sodium [Moles/volume] in Ser um or PlasmaOrdered By: Adin Gan on 06-04-2022 Sodium [Moles/Vol] 140 mmol/L Normal 136-145 mmol/L [facility] Thyroid Stim Hormone w/Rflxo n 06-04-2022 Thyroid Stim Hormone w/Rflx 0.93 u[iU]/mL Normal 0.45-5.33 u[iU]/mL [facility] Thyrotropin [Units/volume] i n Serum or PlasmaOrdered By: Adin Gan on 06-04-2022 TSH Qn 0.93 m[IU]/L 0.45-5.33 [facility] Urea nitrogen [Mass/volume] in Serum or PlasmaOrdered By: Adin Gan on 06-04-2022 Urea nitrogen [Mass/Vol] 15 mg/dL Normal 7-25 mg/dL [facility] PAP ACOG PANEL 2: 21 to 29on 02-24-2022 . . Normal [facility] Comment on above: Performed By: #### [id number] #### [facility] [address] [place] [address] [address] Lilia Calvillo Age Gdln ACOG Testing - Normal [facility] Comment on above: Performed By: #### [id number] #### [facility] [address] [place] [address] [address] Lilia Calvillo DIAGNOSIS: Comment Normal [facility] Comment on above: Result Comment: NEGA TIVE FOR INTRAEPITHELIAL LESION OR MALIGNANCY. Performed By: #### [id number] #### [facility] [address] [place] [address] Dr. Lilia Calvillo Methodology: Comment Normal [facility] Comment on above: Result Comment: This liquid based ThinPrep(R) pap test was screened with the use of an image guided system. Performed By: #### [id number] #### [facility] [address] [place] [address] Dr. Lilia Calvillo Note: Comment Normal [facility] Comment on above: Result Comment: The Pap smear is a screening test designed to aid in the detection of premalignant and malignant conditions of the uterine cervix. It is not a diagnostic procedure and should not be used as the sole means of detecting cervical cancer. Both false-positive and false-negative reports do occur. . Performed By: #### [id number] #### [facility] [address] [place] [address] Dr. Lilia Calvillo Performed by: Comment Normal [facility] Comment on above: Result Comment: Philippe Garcia [employer] (ASCP) Performed By: #### [id number] #### [facility] [address] [place] [address] Dr. Lilia Calvillo Reflex Criteria: Comment Normal [facility] Comment on above: Result Comment: The HPV DNA reflex criteria were not met with this specimen result therefore, no HPV testing was performed. . Performed By: #### [id number] #### [facility] [address] [place] [address] Dr. Lilia Calvillo Specimen adequacy: Comment Normal [facility] Comment on above: Result Comment: Sati sfactory for evaluation. No endocervical component is identified. Performed By: #### [id number] #### [facility] [address] [place] [address] Dr. Lilia Calvillo CBC AUTO DIFFon 10-17-2021 BASO # 0.0 103/ul Normal 0.0-0.1 [facility] Comment on above: Performed By: #### C BC #### [facility] [address] [place] [address] Dr. Lilia Calvillo Basophils/100 WBC (Bld) 0.4 % Normal 0.2-2.0 [facility] Comment on above: Performed By: #### C BC #### [facility] [address] [place] [address] Dr. Lilia Calvillo EO # 0.2 103/ul Normal 0.0-0.7 [facility] Comment on above: Performed By: #### C BC #### [facility] [address] [place] [address] Dr. Lilia Calvillo Eosinophils/100 WBC (Bld) 2.1 % Normal 0.9-7.0 [facility] Comment on above: Performed By: #### C BC #### [facility] [address] [place] [address] Dr. Lilia Calvillo Erythrocyte distribution width (RBC) [Ratio] 14.4 % Normal 11.0-15.0 [facility] Comment on above: Performed By: #### C BC #### [facility] [address] [place] [address] Dr. Lilia Calvillo Hematocrit (Bld) [Volume fraction] 27.2 % Critically low 36.0-48.0 [facility] Comment on above: Performed By: #### C BC #### [facility] [address] [place] [address] Dr. Lilia Calvillo Hemoglobin (Bld) [Mass/Vol] 9.0 g/dL Critically low 12.0-16.0 [facility] Comment on above: Performed By: #### C BC #### [facility] [address] [place] [address] Dr. Lilia Calvillo IG # 0.03 10e3/ul Normal 0.00-0.03 [facility] Comment on above: Performed By: #### C BC #### [facility] [address] [place] [address] Dr. Lilia Calvillo IG % 0.4 % Normal 0.0-0.5 [facility] Comment on above: Performed By: #### C BC #### [facility] [address] [place] [address] Dr. Lilia Calvillo LYMPH # 1.6 103/ul Normal 1.2-3.8 [facility] Comment on above: Performed By: #### C BC #### [facility] [address] [place] [address] Dr. Lilia Calvillo Lymphocytes/100 WBC (Bld) 20.2 % Critically low 20.5-60.0 [facility] Comment on above: Performed By: #### C BC #### [facility] [address] [place] [address] Dr. Lilia Calvillo MANUAL DIFF REQ NO Normal [facility] Comment on above: Performed By: #### C BC #### [facility] [address] [place] [address] Dr. Lilia Calvillo MCH (RBC) [Entitic mass] 29.3 pg Normal 26.7-34.0 [facility] Comment on above: Performed By: #### C BC #### [facility] [address] [place] [address] Dr. Lilia Calvillo MCHC (RBC) [Mass/Vol] 33.1 g/dL Normal 29.9-35.2 [facility] Comment on above: Performed By: #### C BC #### [facility] [address] [place] [address] Dr. Lilia Calvillo MCV (RBC) [Entitic vol] 88.6 fL Normal 81.0-99.0 [facility] Comment on above: Performed By: #### C BC #### [facility] [address] [place] [address] Dr. Lilia Calvillo MONO # 0.5 103/ul Normal 0.3-0.8 [facility] Comment on above: Performed By: #### C BC #### [facility] [address] [place] [address] Dr. Lilia Calvillo Monocytes/100 WBC (Bld) 5.7 % Normal 1.7-12.0 [facility] Comment on above: Performed By: #### C BC #### [facility] [address] [place] [address] Dr. Lilia Calvillo NEUT # 5.8 103/ul Normal 1.4-6.5 [facility] Comment on above: Performed By: #### C BC #### [facility] [address] [place] [address] Dr. Lilia Calvillo Neutrophils/100 WBC (Bld) 71.2 % Normal 43.0-75.0 [facility] Comment on above: Performed By: #### C BC #### [facility] [address] [place] [address] Dr. Lilia Calvillo Platelet mean volume (Bld) [Entitic vol] 13.1 fL Normal 9.5-13.5 [facility] Comment on above: Performed By: #### C BC #### [facility] [address] [place] [address] Dr. Lilia Calvillo PLT 109 103/ul Critically low 150-450 [facility] Comment on above: Performed By: #### C BC #### [facility] [address] [place] [address] Dr. Lilia Calvillo RBC 3.07 106/ul Critically low 4.20-5.40 [facility] Comment on above: Performed By: #### C BC #### [facility] [address] [place] [address] Dr. Lilia Calvillo WBC 8.1 103/ul Normal 4.0-11.0 [facility] Comment on above: Performed By: #### C BC #### [facility] [address] [place] [address] Dr. Lilia Calvillo CBC AUTO DIFFon 10-16-2021 BASO # 0.0 103/ul Normal 0.0-0.1 [facility] Comment on above: Performed By: #### G TT3P #### [facility] [address] [place] [address] Dr. Lilia Calvillo Basophils/100 WBC (Bld) 0.2 % Normal 0.2-2.0 [facility] Comment on above: Performed By: #### G TT3P #### [facility] [address] [place] [address] Dr. Lilia Calvillo EO # 0.1 103/ul Normal 0.0-0.7 [facility] Comment on above: Performed By: #### G TT3P #### [facility] [address] [place] [address] Dr. Lilia Calvillo Eosinophils/100 WBC (Bld) 0.6 % Critically low 0.9-7.0 [facility] Comment on above: Performed By: #### G TT3P #### [facility] [address] [place] [address] Dr. Lilia Calvillo Erythrocyte distribution width (RBC) [Ratio] 14.5 % Normal 11.0-15.0 [facility] Comment on above: Performed By: #### G TT3P #### [facility] [address] [place] [address] Dr. Lilia Calvillo Hematocrit (Bld) [Volume fraction] 36.2 % Normal 36.0-48.0 [facility] Comment on above: Performed By: #### G TT3P #### [facility] [address] [place] [address] Dr. Lilia Calvillo Hemoglobin (Bld) [Mass/Vol] 11.8 g/dL Critically low 12.0-16.0 [facility] Comment on above: Performed By: #### G TT3P #### [facility] [address] [place] [address] Dr. Lilia Calvillo IG # 0.05 10e3/ul Critically high 0.00-0.03 [facility] Comment on above: Performed By: #### G TT3P #### [facility] [address] [place] [address] Dr. Lilia Calvillo IG % 0.5 % Normal 0.0-0.5 [facility] Comment on above: Performed By: #### G TT3P #### [facility] [address] [place] [address] Dr. Lilia Calvillo LYMPH # 2.0 103/ul Normal 1.2-3.8 [facility] Comment on above: Performed By: #### G TT3P #### [facility] [address] [place] [address] Dr. Lilia Calvillo Lymphocytes/100 WBC (Bld) 20.7 % Normal 20.5-60.0 [facility] Comment on above: Performed By: #### G TT3P #### [facility] [address] [place] [address] Dr. Lilia Calvillo MANUAL DIFF REQ NO Normal [facility] Comment on above: Performed By: #### G TT3P #### [facility] [address] [place] [address] Dr. Lilia Calvilol MCH (RBC) [Entitic mass] 28.7 pg Normal 26.7-34.0 [facility] Comment on above: Performed By: #### G TT3P #### [facility] [address] [place] [address] Dr. Lilia Calvillo MCHC (RBC) [Mass/Vol] 32.6 g/dL Normal 29.9-35.2 [facility] Comment on above: Performed By: #### G TT3P #### [facility] [address] [place] [address] Dr. Lilia Calvillo MCV (RBC) [Entitic vol] 88.1 fL Normal 81.0-99.0 [facility] Comment on above: Performed By: #### G TT3P #### [facility] [address] [place] [address] Dr. Lilia Calvillo MONO # 0.5 103/ul Normal 0.3-0.8 [facility] Comment on above: Performed By: #### G TT3P #### [facility] [address] [place] [address] Dr. Lilia Calvillo Monocytes/100 WBC (Bld) 5.7 % Normal 1.7-12.0 [facility] Comment on above: Performed By: #### G TT3P #### [facility] [address] [place] [address] Dr. Lilia Calvillo NEUT # 6.8 103/ul Critically high 1.4-6.5 [facility] Comment on above: Performed By: #### G TT3P #### [facility] [address] [place] [address] Dr. Lilia Calvillo Neutrophils/100 WBC (Bld) 72.3 % Normal 43.0-75.0 [facility] Comment on above: Performed By: #### G TT3P #### [facility] [address] [place] [address] Dr. Lilia Calvillo Platelet mean volume (Bld) [Entitic vol] 13.2 fL Normal 9.5-13.5 [facility] Comment on above: Performed By: #### G TT3P #### [facility] [address] [address] [address] Lilia Calvillo PLT 130 103/ul Critically low 150-450 [facility] Comment on above: Performed By: #### G TT3P #### [facility] [address] [place] [address] Dr. Lilia Calvillo RBC 4.11 106/ul Critically low 4.20-5.40 [facility] Comment on above: Performed By: #### G TT3P #### [facility] [address] [place] [address] Dr. Lilia Calvillo WBC 9.5 103/ul Normal 4.0-11.0 [facility] Comment on above: Performed By: #### G TT3P #### [facility] [address] [place] [address] Dr. Lilia Calvillo DRUG SCREEN RAPID (URINE)on 10-16-2021 AMP Negative Normal NEGATIVE [facility] Comment on above: Performed By: #### G TT3P #### [facility] [address] [place] [address] Dr. Lilia Calvillo BAR Negative Normal NEGATIVE [facility] Comment on above: Performed By: #### G TT3P #### [facility] [address] [place] [address] Dr. Lilia Calvillo BUP Negative Normal NEGATIVE [facility] Comment on above: Performed By: #### G TT3P #### [facility] [address] [place] [address] Dr. Lilia Calvillo BZO Negative Normal NEGATIVE [facility] Comment on above: Performed By: #### G TT3P #### [facility] [address] [place] [address] Dr. Lilia Calvillo LAWANDA Negative Normal NEGATIVE [facility] Comment on above: Performed By: #### G TT3P #### [facility] [address] [place] [address] Dr. Lilia Calvillo CUT-OFFS SEE BELOW Normal [facility] Comment on above: Result Comment: AMP (Amphetamine): 500ng/mL, BAR (Barbituates): 200 ng/mL, BZO (Benzodiazepines): 150 ng/mL, BUP (Buprenorphine): 10 ng/mL, LAWANDA (Cocaine): 150 ng/mL, mAMP (Methamphetamine): 500 ng/mL, MTD (Methadone): 200 ng/mL, OPI (Opiates): 100 ng/mL, OXY (Oxycodone): 100 ng/mL, PCP (Phencyclidine): 25 ng/mL, PPX (Propoxyphene): 300 ng/mL, THC (Cannabinoids): 50 ng/mL, TCA (Trycyclic Antidepressants): 300 ng/mL Performed By: #### G TT3P #### [facility] [address] [place] [address] Dr. Lilia Calvillo DRUG CUT HEADER DRUG CLASS TEST SYST EM CUT-OFF CONCENTRATIONS ARE FOLLOWS: Normal [facility] Comment on above: Performed By: #### G TT3P #### [facility] [address] [place] [address] Dr. Lilia Calvillo mAMP Negative Normal NEGATIVE [facility] Comment on above: Performed By: #### G TT3P #### [facility] [address] [place] [address] Dr. Lilia Calvillo MTD Negative Normal NEGATIVE [facility] Comment on above: Performed By: #### G TT3P #### [facility] [address] [place] [address] Dr. Lilia Calvillo OPI Negative Normal NEGATIVE [facility] Comment on above: Performed By: #### G TT3P #### [facility] [address] [place] [address] Dr. Lilia Calvillo OXY Negative Normal NEGATIVE [facility] Comment on above: Performed By: #### G TT3P #### [facility] [address] [place] [address] Dr. Lilia Calvillo PCP Negative Normal NEGATIVE [facility] Comment on above: Performed By: #### G TT3P #### [facility] [address] [place] [address] Dr. Lilia Calvillo PPX Negative Normal NEGATIVE [facility] Comment on above: Performed By: #### G TT3P #### [facility] [address] [place] [address] Dr. Lilia Calvillo TCA Negative Normal NEGATIVE [facility] Comment on above: Performed By: #### G TT3P #### [facility] [address] [place] [address] Dr. Lilia Calvillo THC Negative Normal NEGATIVE [facility] Comment on above: Performed By: #### G TT3P #### [facility] [address] [place] [address] Dr. Lilia Calvillo TYPE AND SCREENon 10-16-2021 TYPE AND SCREEN Negative Normal [facility] Comment on above: Performed By: #### G TT3P #### [facility] [address] [place] [address] Dr. Lilia Calvillo UA (CLEAN/CATCH) PATTERNMAKER APPRENTICE METAL/MICRO I F IND.on 10-16-2021 Bilirubin Ql (U) Negative Normal NEGATIVE [facility] Comment on above: Performed By: #### U ACSIND #### [facility] [address] [place] [address] Dr. Lilia Calvillo Clarity (U) CLEAR Normal CLEAR [facility] Comment on above: Performed By: #### U ACSIND #### [facility] [address] [place] [address] Dr. Lilia Calvillo Color (U) LT. YELLOW Normal YELLOW [facility] Comment on above: Performed By: #### U ACSIND #### [facility] [address] [place] [address] Dr. Lilia Calvillo Glucose Ql (U) Negative Normal NEGATIVE [facility] Comment on above: Performed By: #### U ACSIND #### [facility] [address] [place] [address] Dr. Lilia Calvillo Hemoglobin Ql (U) Negative Normal NEGATIVE [facility] Comment on above: Performed By: #### U ACSIND #### [facility] [address] [address] [address] Lilia Calvillo Ketones Ql (U) Negative Normal NEGATIVE [facility] Comment on above: Performed By: #### U ACSIND #### [facility] [address] [address] [address] Lilia Calvillo LEUKOCYTES Negative Normal NEGATIVE [facility] Comment on above: Performed By: #### U ACSIND #### [facility] [address] [address] [address] Lilia Calvillo Nitrite Ql (U) Negative Normal NEGATIVE [facility] Comment on above: Performed By: #### U ACSIND #### [facility] [address] [place] [address] Dr. Lilia Calvillo pH (U) 6.5 [pH] Normal 5-9 [facility] Comment on above: Performed By: #### U ACSIND #### [facility] [address] [place] [address] Dr. Lilia Calvillo SPEC GRAVITY 1.020 Normal 1.005-<=1. 025 [facility] Comment on above: Performed By: #### U ACSIND #### [facility] [address] [place] [address] Dr. Lilia Calvillo UA PROTEIN Negative Normal NEGATIVE/ TRACE [facility] Comment on above: Performed By: #### U ACSIND #### [facility] [address] [address] [address] Lilia Calvillo UR MICRO IND NOT INDICATED Normal [facility] Comment on above: Performed By: #### U ACSIND #### [facility] [address] [address] [address] Lilia Calvillo Urobilinogen Qn (U) 0.2 {Ann'U}/dL Normal 0.2 - 1. 0 [facility] Comment on above: Performed By: #### U ACSIND #### [facility] [address] [place] [address] Dr. Lilia Calvillo Covid-19 PCR (CVDTB)on 09-20 SARS-CoV-2 (COVID-19) RNA TORRES+probe Ql (Unsp spec) Not detected Normal NOT DETECTED [facility] Comment on above: Result Comment: This test is not yet approved or cleared by the [place] FDA. When there are no FDA-approved or cleared tests available, and other criteria are met, FDA can make tests available under an emergency access mechanism called an Emergency Use Authorization (EUA). The EUA for this test is supported by the [place] of Health and Human Service's (HHS's) declaration that circumstances exist to justify the emergency use of in vitro diagnostics for the detection and/or diagnosis of the virus that causes COVID-19. This EUA will remain in effect (meaning this test can be used) for the duration of the COVID-19 declaration justifying emergency of IVDs, unless it is terminated or revoked by FDA (after which the test may no longer be used). When diagnostic testing is negative, the possibility of a false negative should be considered in the context of a patient's recent exposures and the presence of clinical signs and symptoms consistent with SARS-CoV-2. Performed By: #### G TT3P #### [facility] [address] [place] [address] Dr. Lilia Calvillo CHLAMYDIA/GONOCOCCUS TORRES (SW AB/URINE/PAPon 09-27-2021 Chlamydia trachomatis, TORRES Negative Normal Negative [facility] Comment on above: Performed By: #### C T/NGNA #### [facility] [address] [place] [address] Dr. Lilia Calvillo Neisseria gonorrhoeae, TORRES Negative Normal Negative [facility] Comment on above: Performed By: #### C T/NGNA #### [facility] [address] [place] [address] Dr. Lilia Calvillo GROUP B STREP CULTUREon S. agalactiae Ag Ql (Unsp spec) Culture Observations: NEGATIVE FOR GROUP B STREPTOCOCCUS. Normal [facility] Comment on above: Performed By: #### G TT3P #### [facility] [address] [place] [address] Dr. Lilia Calvillo GTT 3 HR PREGon 07-21-2021 Glucose [Mass/Vol] 92 mg/dL Normal 74-106 [facility] Comment on above: Performed By: #### G TT3P #### [facility] [address] [place] [address] Dr. Lilia Calvillo Glucose [Mass/Vol] 193 mg/dL Normal [facility] Comment on above: Performed By: #### G TT3P #### [facility] [address] [place] [address] Dr. Lilia Calvillo Glucose [Mass/Vol] 146 mg/dL Normal [facility] Comment on above: Performed By: #### G TT3P #### [facility] [address] [place] [address] Dr. Lilia Calvillo Glucose [Mass/Vol] 123 mg/dL Normal [facility] Comment on above: Performed By: #### G TT3P #### [facility] [address] [place] [address] Dr. Lilia Calvillo GLUCOSE - 1HRon 07-09-2021 Glucose [Mass/Vol] 167 mg/dL Critically high 74-106 [facility] Comment on above: Performed By: #### G LU1HR #### [facility] [address] [place] [address] Dr. Lilia Calvillo HEMOGRAM AND PLATELon 2021 Hematocrit (Bld) [Volume fraction] 33.9 % Critically low 36.0-48.0 [facility] Comment on above: Performed By: #### H H #### [facility] [address] [place] [address] Dr. Lilia Calvillo Hemoglobin (Bld) [Mass/Vol] 10.9 g/dL Critically low 12.0-16.0 [facility] Comment on above: Performed By: #### H H #### [facility] [address] [place] [address] Dr. Lilia Calvillo MCH (RBC) [Entitic mass] 29.9 pg Normal 26.7-34.0 [facility] Comment on above: Performed By: #### H H #### [facility] [address] [address] [address] Lilia Calvillo MCHC (RBC) [Mass/Vol] 32.2 g/dL Normal 29.9-35.2 [facility] Comment on above: Performed By: #### H H #### [facility] [address] [address] [address] Lilia Calvillo MCV (RBC) [Entitic vol] 93.1 fL Normal 81.0-99.0 [facility] Comment on above: Performed By: #### H H #### [facility] [address] [address] [address] Lilia Calvillo PLT 153 103/ul Normal 150-450 [facility] Comment on above: Performed By: #### H H #### [facility] [address] [address] [address] Lilia Calvillo RBC 3.64 106/ul Critically low 4.20-5.40 [facility] Comment on above: Performed By: #### H H #### [facility] [address] [address] [address] Lilia Calvillo WBC 8.4 103/ul Normal 4.0-11.0 [facility] Comment on above: Performed By: #### H H #### [facility] [address] [place] [address] Dr. Lilia Calvillo US PREG ANATOMY SINGLEon US PREG ANATOMY SINGLE EXAMINATION: US PREG ANATOMY SINGLE HISTORY: screening COMPARISON: No relevant comparison available. TECHNIQUE: Transabdominal sonographic examination was performed for obstetrical and evaluation. FINDINGS: Number: 1 Heart Rate: 148 H.B. /min Amniotic Fluid Volume: Subjectively normal position: Breech presentation, longitudinal lie Placental Location: Fundal, grade 0. The placental edge is 7.0 cm from the cervical os Cervix Length: 4.2 cm, closed Normal structures: Cerebellum. Choroid plexus. Cisterna magna. Lateral cerebral ventricles. Orbits. Midline falx. Hard palate. 4-chamber heart. RVOT. LVOT. Stomach. Kidneys. Bladder. Umbilical cord insertion into abdomen. 3 vessel cord. Cervical spine. Thoracic spine. Lumbar spine. Sacral spine. Right upper extremity. Left upper extremity. Right lower extremity. Left lower extremity. Suboptimally seen: None. Abnormalities/Other: None BIOMETRY: BPD: 4.5 cm 19 weeks 3 days HC: 17.1 cm 19 weeks 4 days AC: 14.5 cm 19 weeks 5 days FL: 3.2 cm 20 weeks 0 days EFW:11 ounces, 65% by ultrasound, 40% by expected EDC; FL/AC: 0.720206 FL/BPD: 0.332856 HC/AC: 1.226313 GESTATIONAL AGE: Age by EDC: 20 weeks 0 days ALINA by EDC: 10/23/2021 Age by current US: 19 weeks 4 days ALINA by current US: 10/26/2021 IMPRESSION: Normal anatomy scan *Reference: [facility] Practice Guideline for the performance of Obstetric Ultrasound Examinations, December 20, 2006. Electronically authenticated by: DESTINY BAILEY Date: 2021-06-05 16:17 Normal [facility] AFP MATERNAL FOR SPINA BIFID Aon 05-30-2021 AFP MoM 1.33 Normal [facility] Comment on above: Performed By: #### A FPMAT #### [facility] [address] [address] [address] Lilia Calvillo AFP Value 63.0 ng/mL Normal [facility] Comment on above: Performed By: #### A FPMAT #### [facility] [address] [address] [address] Lilia Calvlilo AFP, Serum for Spina Bifida Report Normal [facility] Comment on above: Performed By: #### A FPMAT #### [facility] [address] [address] [address] Lilia Calvillo Comment Comment Normal [facility] Comment on above: Result Comment: Hamlet Sinclair, Ph.D., [facility] Director . References: Available Upon Request. . Multiples Of Median Cutoffs For AFP Elevations Sandoval 2.5 Black 2.8 IDD 2.0 Twins 4.5 Abbreviation Definitions IDD - Insulin Dep Diabetes OSBR - Open Spina Bifida Risk . For further inquiries contact [employer] at [phone]. Performed By: #### A FPMAT #### [facility] [address] [address] [address] Lilia Calvillo Gest Age Collection Date 18.9 weeks Normal [facility] Comment on above: Performed By: #### A FPMAT #### [facility] [address] [address] [address] Lilia Calvillo Gestat, Age Based on Ultrasound Normal [facility] Comment on above: Result Comment: 18.9 on 05/28/2021 Recalculations are not recommended when gestational dating by LMP and ultrasound are within 10 days. Performed By: #### A FPMAT #### [facility] [address] [address] [address] Lilia Calvillo Insulin Dep Diabetes No Normal [facility] Comment on above: Performed By: #### A FPMAT #### [facility] [address] [place] [address] Dr. Lilia Calvillo Interpretation Comment Normal [facility] Comment on above: Result Comment: Inte rpretation: Screen Negative . This result is screen negative for OSB. The AFP MoM calculated is based on the gestational age provided. MS-AFP can identify up to 80% of open neural tube defects. Closed neural tube defects and some open defects may not be detected by this test. This test does not screen for Down Syndrome or Trisomy 18. If screening for Down Syndrome or Trisomy 18 is desired, contact [employer] to discuss available options. The [employer] recommends amniocentesis be offered to women age 35 and older. Performed By: #### A FPMAT #### [facility] [address] [place] [address] Dr. Lilia Calvillo [age] Normal [facility] Comment on above: Performed By: #### A FPMAT #### [facility] [address] [place] [address] Dr. Lilia Calvillo Multiple Gestation No Normal [facility] Comment on above: Performed By: #### A FPMAT #### [facility] [address] [place] [address] Dr. Lilia Calvillo OSBR Risk 1 [place] 4399 Normal [facility] Comment on above: Performed By: #### A FPMAT #### [facility] [address] [address] [address] Lilia Calvillo PDF . [facility] Comment on above: Result Comment: This test was developed and its performance characteristics determined by [facility]. It has not been cleared or approved by the Food and Drug Administration. Performed By: #### A FPMAT #### [facility] [address] [place] [address] Dr. Lilia Calvillo Race [facility] Comment on above: Performed By: #### A FPMAT #### [facility] [address] [place] [address] Dr. Lilia Calvillo Test Results: Negative [facility] Comment on above: Performed By: #### A FPMAT #### [facility] [address] [place] [address] Dr. Lilia Calvillo Q - CULTURE,URINE,ROUTINEon 05-21-2021 CULTURE, URINE, ROUTINE SEE NOTE Normal [facility] Psychology Technician Comment on above: Order Comment: [facility] performed at: [facility], [address] [place] [address], [id number], Junior Paralegal: Wilber Wilson MD [facility] Collection Date/Time: [facility] Results Received Date/Time: [facility] Reported Date/Time: Result Comment: CULT URE, URINE, ROUTINE Micro Number: [id number] Test Status: Final Specimen Source: Urine Specimen Quality: Adequate Result: Mixed genital yair isolated. These superficial bacteria are not indicative of a urinary tract infection. No further organism identification is warranted on this specimen. If clinically indicated, recollect clean-catch, mid-stream urine and transfer immediately to Urine Culture Transport Tube. Performed By: #### 3 020X, 6304R, %SBCULI #### [facility] [address] [place] [address] Q - UR CULT [id number] 2021 REFLEXIVE URINE CULTURE SEE NOTE Normal [facility] Psychology Technician Comment on above: Order Comment: [facility] performed at: [facility], [address] , [address] [place] [address], [address] [place] [address], Junior Paralegal: Wilber Wilson MD [facility] Collection Date/Time: [facility] Results Received Date/Time: [facility] Reported Date/Time: Result Comment: CULT URE INDICATED - RESULTS TO FOLLOW Performed By: #### 3 020X, 6304R, %SBCULI #### [facility] Default [address] [place] [address] Q - URINALYSIS,COMPLETE,WITH REFLEX TO CULTUREon 05-21-2021 Appearance (U) TURBID Abnormal CLEAR [facility] Psychology Technician Comment on above: Order Comment: [facility] performed at: [employer], behaview [facility], [address] , [address] [place] [address], [address] [place] [address], Junior Paralegal: Wilber Wilson MD [facility] Collection Date/Time: [facility] Results Received Date/Time: [facility] Reported Date/Time: Performed By: #### 3 020X, 6304R, %SBCULI #### [facility] Default [address] [place] [address] BACTERIA MODERATE Abnormal NONE SEEN [facility] Psychology Technician Comment on above: Order Comment: [facility] performed at: [employer], behaview [facility], [address] , [address] [place] [address], [address] [place] [address], Junior Paralegal: Wilber Wilson MD [facility] Collection Date/Time: [facility] Results Received Date/Time: [facility] Reported Date/Time: Performed By: #### 3 020X, 6304R, %SBCULI #### [facility] Default [address] [place] [address] Bilirubin Ql (U) Negative Normal NEGATIVE [facility] Psychology Technician Comment on above: Order Comment: [facility] performed at: [employer], behaview [facility], [address] , [address] [place] [address], [address] [place] [address], Junior Paralegal: Wilber Wilson MD [facility] Collection Date/Time: [facility] Results Received Date/Time: [facility] Reported Date/Time: Performed By: #### 3 020X, 6304R, %SBCULI #### [facility] Default [address] [place] [address] Color (U) YELLOW Normal YELLOW [facility] Psychology Technician Comment on above: Order Comment: [facility] performed at: [employer], behaview [facility], [address] , [address] [place] [address], [address] [place] [address], Junior Paralegal: Wilber Wilson MD [facility] Collection Date/Time: [facility] Results Received Date/Time: [facility] Reported Date/Time: Performed By: #### 3 020X, 6304R, %SBCULI #### [facility] Default [address] [place] [address] Glucose Ql (U) Negative Normal NEGATIVE [facility] Psychology Technician Comment on above: Order Comment: [facility] performed at: [employer], behaview [facility], [address] , [address] [place] [address], [address] [place] [address], Junior Paralegal: Wilber Wilson MD [facility] Collection Date/Time: [facility] Results Received Date/Time: [facility] Reported Date/Time: Performed By: #### 3 020X, 6304R, %SBCULI #### [facility] Default [address] [place] [address] HYALINE CAST NONE SEEN Normal NONE SEEN [facility] Psychology Technician Comment on above: Order Comment: [facility] performed at: [employer], behaview [facility], [address] , [address] [place] [address], [address] [place] [address], Junior Paralegal: Wilber Wilson MD [facility] Collection Date/Time: [facility] Results Received Date/Time: [facility] Reported Date/Time: Performed By: #### 3 020X, 6304R, %SBCULI #### [facility] Default [address] [place] [address] Ketones Ql (U) TRACE Abnormal NEGATIVE [facility] Psychology Technician Comment on above: Order Comment: [facility] performed at: [employer], behaview [facility], [address] , [address] [place] [address], [address] [place] [address], Junior Paralegal: Wilber Wilson MD [facility] Collection Date/Time: [facility] Results Received Date/Time: [facility] Reported Date/Time: Performed By: #### 3 020X, 6304R, %SBCULI #### [facility] Default [address] [place] [address] Leukocyte esterase Test strip Ql (U) 2+ Abnormal NEGATIVE [facility] Psychology Technician Comment on above: Order Comment: [facility] performed at: [employer], behaview [facility], [address] [place] [address], [address] [place] [address], [address] [place] [address], Junior Paralegal: Wilber Wilson MD [facility] Collection Date/Time: [facility] Results Received Date/Time: [facility] Reported Date/Time: Performed By: #### 3 020X, 6304R, %SBCULI #### [facility] Default [address] [place] [address] Nitrite Ql (U) Negative Normal NEGATIVE [facility] Psychology Technician Comment on above: Order Comment: [facility] performed at: [facility], [address] , [address] [place] [address], [address] [place] [address], Junior Paralegal: Wilber Wilson MD [facility] Collection Date/Time: [facility] Results Received Date/Time: [facility] Reported Date/Time: Performed By: #### 3 020X, 6304R, %SBCULI #### [facility] Default [address] [place] [address] OCCULT BLOOD Negative Normal NEGATIVE [facility] Psychology Technician Comment on above: Order Comment: [facility] performed at: [facility], [address] , [address] [place] [address], [address] [place] [address], Junior Paralegal: Wilber Wilson MD [facility] Collection Date/Time: [facility] Results Received Date/Time: [facility] Reported Date/Time: Performed By: #### 3 020X, 6304R, %SBCULI #### [facility] Default [address] [place] [address] pH (U) 5.5 [pH] Normal 5.0-8.0 [facility] Psychology Technician Comment on above: Order Comment: [facility] performed at: [employer], behaview [facility], [address] [place] [address], [address] [place] [address], [address] [place] [address], Junior Paralegal: Wilber Wilson MD [facility] Collection Date/Time: [facility] Results Received Date/Time: [facility] Reported Date/Time: Performed By: #### 3 020X, 6304R, %SBCULI #### [facility] Default [address] [place] [address] Protein Ql (U) Negative Normal NEGATIVE [facility] Psychology Technician Comment on above: Order Comment: [facility] performed at: [employer], behaview [facility], [address] [facility], [address] [place] [address], [address] [place] [address], Junior Paralegal: Wilber Wilson MD [facility] Collection Date/Time: [facility] Results Received Date/Time: [facility] Reported Date/Time: Performed By: #### 3 020X, 6304R, %SBCULI #### [facility] Default [address] [place] [address] RBC NONE SEEN Normal < OR = 2 [facility] Psychology Technician Comment on above: Order Comment: [facility] performed at: [employer], behaview [facility], [address] , [address] [place] [address], [address] [place] [address], Junior Paralegal: Wilber Wilson MD [facility] Collection Date/Time: [facility] Results Received Date/Time: [facility] Reported Date/Time: Performed By: #### 3 020X, 6304R, %SBCULI #### [facility] Default [address] [place] [address] Specific gravity (U) [Rel density] 1.029 Normal 1.001-1.03 5 [facility] Psychology Technician Comment on above: Order Comment: [facility] performed at: [employer], behaview [facility], [address] [facility], [address] [place] [address], [address] [place] [address], Junior Paralegal: Wilber Wilson MD [facility] Collection Date/Time: [facility] Results Received Date/Time: [facility] Reported Date/Time: Performed By: #### 3 020X, 6304R, %SBCULI #### [facility] Default [address] [place] [address] SQUAMOUS EPITHELIAL CELLS 10-20 Abnormal < OR = 5 [facility] Specialist Comment on above: Order Comment: [facility] performed at: [employer], behaview [facility], [address] [place] [address], [address] [place] [address], [address] [place] [address], Junior Paralegal: Wilber Wilson MD [facility] Collection Date/Time: [facility] Results Received Date/Time: [facility] Reported Date/Time: Performed By: #### 3 020X, 6304R, %SBCULI #### [facility] Default [address] [place] [address] WBC 20-40 Abnormal < OR = 5 [facility] Specialist Comment on above: Order Comment: [facility] performed at: [employer], behaview [facility], [address] [place] [address], [address] [place] [address], [address] [place] [address], Junior Paralegal: Wilber Wilson MD [facility] Collection Date/Time: [facility] Results Received Date/Time: [facility] Reported Date/Time: Performed By: #### 3 020X, 6304R, %SBCULI #### [facility] Default [address] [place] [address] US PREG LIMITEDon 05-09-2021 US PREG LIMITED EXAMINATION: US PREG LIMITED HISTORY: Subchorionic hematoma follow-up COMPARISON: Ultrasound transvaginal 04/03/2021 FINDINGS: CARDIAC: 146 bpm UTERUS: Posterior placenta without subchorionic hematoma or evidence of abruption. OTHER: None. AGE BY LMP: 16 weeks, 1 day ALINA BY LMP: 10/23/2021 IMPRESSION: 1. Resolution of previously seen subchorionic hematoma. 2. Single live intrauterine . Electronically authenticated by: BAILEY OTERO Date: 2021-05-09 10:39 Normal [facility] HEPATITIS C VIRUS AB W/ REFL EX QUANTon 04-08-2021 HCV AB >11.0 Critically high 0.0-0.9 [facility] Comment on above: Result Comment: . Performed By: #### H CVPCRR #### [facility] [address] [address] [address] Lilia Calvillo HCV log10 Normal [facility] Comment on above: Performed By: #### H CVPCRR #### [facility] [address] [address] [address] Lilia Calvillo Hep C Quantitation Not detected Normal [facility] Comment on above: Performed By: #### H CVPCRR #### [facility] [address] [address] [address] Lilia Calvillo Interpretation Comment Normal [facility] Comment on above: Result Comment: Posi tive HCV antibody screen without the presence of HCV RNA is consistent with a resolved past infection or a false positive HCV antibody. Consider repeat testing after one month. Performed By: #### H CVPCRR #### [facility] [address] [address] [address] Lilia Calvillo Test Information: Comment Normal [facility] Comment on above: Result Comment: The quantitative range of this assay is 15 IU/mL to 100 million IU/mL. Performed By: #### H CVPCRR #### [facility] [address] [address] [address] Lilia Calvillo RUBI BOX TEST PT SEND OUTo n 04-03-2021 SENT TO REF LAB 04/03/2021 Normal [facility] Comment on above: Performed By: #### G TT3P #### [facility] [address] [address] [address] Lilia Calvillo US PREG TVon 04-03-2021 US PREG TV EXAMINATION: US PREG TV HISTORY: Disorder of amniotic cavity AND/OR membrane COMPARISON: No relevant comparison available. FINDINGS: GESTATIONAL SAC: Present and normal appearing. POLE: Present and normal appearing. YOLK SAC: Present. CARDIAC: Present. UTERUS: Normal size and appearance. OVARIES: Right: Normal. Left: Normal. CERVIX: 4.3 cm in length and closed. CUL-DE-SAC: Normal. OTHER: Small irregular hypoechoic area adjacent the gestational sac likely residual subchorionic hematoma.. AGE BY LMP: 11 weeks, 1 day ALINA BY LMP: 10/22/2021 AGE BY US CRL: 11 weeks, 2 days ALINA BY US CRL: 10/21/2021 IMPRESSION: 1. Single live intrauterine . 2. Small subchorionic hematoma suspected. No suspicious findings. Electronically authenticated by: BAILEY OTERO Date: 2021-04-03 14:48 Normal [facility] Drug Screen Comprehensive Ur ineon 04-23-2017 Adulterants Negative Normal [facility] Comment on above: Result Comment: Adul terant Decision Limit: General Oxidants 200 ug/mL The adulterant assay tests for General Oxidants, including Chromates and Nitrites. Adulterants are substances either ingested or added directly to a urine specimen to prevent the detection of drug use.The comprehensive urine drug screen includes qualitativeanalysis for the drugs listed below. Acetaminophen MDA 6-Acetylmorphine MDEA Amphetamine MDMA Amitriptyline Methylphenidate Barbiturates Meperidine Benzodiazepines Meprobamate Beta-Norma Methadone Bupropion Methamphetamine Caffeine Methocarbamol Carbamazepine/Oxcarbazepine Metronidazole Carisoprodol Mirtazapine Chlorpheniramine Morphine Citalopram Nicotine Clindamycin Nortriptyline Clomipramine Olanzapine Clozapine Opiates Codeine Oxycodone Cocaine Metabolite Paroxetine Cotinine Phencyclidine(PCP) Cyclobenzaprine Phenylpropanolamine(Ppa) Desipramine Propoxyphene/Norpropoxyphene Dextromethorphan Phenytoin Diltiazem Pentazocine Doxepine Phenothiazines Doxylamine Pseudoephedrine/Ephedrine DPH/Orphenadrine Quetiapine Ethanol Quinine/Quinidine Fentanyl Ranitidine Flouxetin Sertraline Fluconazole Spironolactone Gabapentin THC (Cannabis) Guafenesin Tramadol Ibuprofen Trazadone/Nefazodone Imipramine Trihexyphenidyl Ketamine Trimipramine Lamotrigine Venlafaxine Lidocaine Verapamil LevetiracetamIf applicable, any drug confirmation testing reportedhere was developed and the performance characteristicsdetermined by [facility]. Thisconfirmation testing has not been cleared or approvedby the FDA. The laboratory is regulated under CLIA asqualified to perform high-complexity testing. This testis used for patient testing purposes. It should not beregarded as investigational or for research.Test performed at [facility],[address] [address] Gkbatzy G. Finn, MD - [employer] Tr[employer] Performed By: #### 6 9742-5, 46578-6, 10364-0, 46179-0, 63703-8, 29957-6, 79125-5, 60248-4 ####[facility] [address], [place]#### [address]331-2, 88836-0 ####[facility], [address], [place] Creatinine Urine - Toxicology 48 mg/dL [facility] Comment on above: Performed By: #### 6 9742-5, 07238-9, 01155-8, 52630-2, 40685- 4, 79164-6, 33586-3, 25897-0 ####[facility] [address], [place]#### [address]9640-3, 09205-8 ####[facility], [facility] [address] [facility], [place] Drug Scr Urine SeeBelow Normal [facility] Comment on above: Result Comment: Drug s Detected in Urine: THC Cotinine Caffeine All drugs identified should be considered presumptive positives unless they have been identified by an alternate chemical method. These drugs have been qualitatively identified by either or both immunoassay or gas chromatography/mass spectrometry (GC/MS) Performed By: #### 6 9742-5, 56024-0, 60089-3, 06863-4, 30526-7, 40895-4, 36464-0, 89687-7 ####[facility] [address], [place]#### 87970-0, 06215-3 ####[facility], [address] [place], [place] Hepatitis C RNA (PCR) Quanti tativeon 04-23-2017 Hepatitis C PCR Log IU/ml 3.34 see fn High <1.08 [facility] Comment on above: Result Comment: Unit s: Log (10) IU/mLThis procedure utilizes a real-time polymerase chainreaction test from [employer]. The amplificationtarget is a conserved region of the HCV genome. The lowerlimit of quantitation is 12 IU/mL (1.08 Log IU/mL) and theupper limit of quantitation is 100 million IU/mL (8.00 LogIU/mL). The qualitative limit of detection is 12 IU/mL(1.08 Log IU/mL).Specimens reported as DETECTED but <12 IU/mL containdetectable levels of hepatitis C RNA but the viral load isbelow the limit of quantitation. A Not detected resultdoes not rule out infection.Test performed at [facility],[address] [place] [address] Qpkesim Yaz Martinez MD - [employer] Tr[employer] Performed By: #### 6 9742-5, 84827-3, 86039-6, 71065-2, 38810-0, 81759-2, 05237-5, 45756-9 ####[facility] [address], [place]#### 46535-9, 77737-5 ####[facility], [address] [place] [address] Hepatitis C RNA PCR seefn High <12 [facility] Comment on above: Result Comment: Resu lt: 2,182 Performed By: #### 6 9742-5, 45097-7, 20356-7, 89458-7, 05010-7, 42490-6, 52600-6, 84657-6 ####[facility] [address], [place]#### 60218-7, 72231-9 ####[facility], [address], [place] Hepatitis C Virus RNA Ql DETECTED Abnormal seefn [facility] Comment on above: Result Comment: Ref Range: Not detected Performed By: #### 6 9742-5, 94962-1, 32063-9, 12225-8, 56645-4, 38097-3, 13052-3, 06840-1 ####[facility] [address], [place]#### 40882-3, 57211-2 ####[facility], [address], [place] Hepatitis A Antibody Totalon 04-22-2017 Hepatitis A Antibody Negative Normal Negative [facility] Comment on above: Result Comment: Test performed at [facility],[address] [place] [address] Lyfdptw G. Finn, MD - [employer] Tr[employer] Performed By: #### 6 9742-5, 36899-2, 85650-5, 42466-9, 22630-1, 30274-1, 58330-6, 79939-7 ####[facility] [address], [place]#### 21358-7, 40956-0 ####[facility], [address], [place] Hepatitis B Core Antibody Ig Mon 04-21-2017 Interpretation and review of laboratory results Negative Normal NEGATIVE [facility] Comment on above: Result Comment: Hepa titis B Interpretation Guide 10/11/07HBs Antigen HBc Antibody HBc Antibody HBs Antibody IgM Total Interpretation ACUTE INFECTION: POS NEG NEG NEG Very early POS POS POS NEG Acute Infection POS NEG POS NEG Past Infection NEG NEG POS POS Resolution CHRONIC INFECTION: POS NEG POS NEG Typical profile NEG NEG POS POS Resolution NEG NEG NEG POS VACCINATION Performed By: #### 6 9742-5, 93039-3, 75407-6, 68507-3, 31644-2, 09974-0, 56541-4, 28804-5 ####[facility] [address], [place]#### 95293-4, 49446-5 ####[facility], [address] [facility].[place], [place] Hepatitis C Antibodyon 04-21 Hepatitis C Antibody Positive Abnormal NEGATIVE [facility] Comment on above: Result Comment: For a Positive Hepatitis C Antibody test, in order to confirm active HepatitisC infection, please order Hepatitis C RNA(PCR)Quantitative(Powerchartdisplay).This test requires a dedicated sample. Specimens used in other assays can notbe tested. The confirmatory test used previously, Hepatitis C Antibody(RIBA)is no longer available.For a Positive Hepatitis C Antibody test, in order to confirm active HepatitisC infection, please order Hepatitis C RNA(PCR)Quantitative(Powerchartdisplay).This test requires a dedicated sample. Specimens used in other assays can notbe tested. The confirmatory test used previously, Hepatitis C Antibody(RIBA)is no longer available. Performed By: #### 6 9742-5, 51086-9, 65736-2, 90109-7, 52230-5, 71981-4, 45307-2, 15848-5 ####[facility] [address], [place]#### 62203-2, 01694-1 ####[facility], [address] [facility].[place], [place] Hepatitis C Antibody Positive Abnormal NEGATIVE [facility] Comment on above: Result Comment: For a Positive Hepatitis C Antibody test, in order to confirm active HepatitisC infection, please order Hepatitis C RNA(PCR)Quantitative(Powerchartdisplay).This test requires a dedicated sample. Specimens used in other assays can notbe tested. The confirmatory test used previously, Hepatitis C Antibody(RIBA)is no longer available.For a Positive Hepatitis C Antibody test, in order to confirm active HepatitisC infection, please order Hepatitis C RNA(PCR)Quantitative(Powerchartdisplay).This test requires a dedicated sample. Specimens used in other assays can notbe tested. The confirmatory test used previously, Hepatitis C Antibody(RIBA)is no longer available. Performed By: #### 6 9742-5, 29643-0, 28102-4, 71141-2, 41022-5, 68153-2, 10103-1, 90368-8 ####[facility] [address], [place]#### 68837-1, 32499-3 ####[facility], [address], [place] CBC with Differentialon 03-24 Basophils Auto #/vol (Bld) 0.00 thou/mcL Normal 0.00-0.20 [facility] Comment on above: Performed By: #### 6 9742-5, 51683-6, 44248-6, 12629-4, 08374- 4, 61862-6, 75165-4, 00696-8 ####[facility] [address], [place]#### 60500-4, 87070-6 ####[facility], [facility], [place] Basophils/100 WBC Auto (Bld) 0.2 % Normal 0.0-2.0 [facility] Comment on above: Performed By: #### 6 9742-5, 04640-6, 28478-4, 57102-7, 85405- 4, 84257-4, 54855-9, 53182-6 ####[facility] [address], [place]#### 93108-2, 19597-4 ####[facility], [facility]. [facility], [place] Eosinophils 0.10 thou/mcL Normal 0.00-0.70 [facility] Comment on above: Performed By: #### 6 9742-5, 30627-2, 65138-8, 59409-5, 02679- 4, 91391-5, 36278-1, 42463-5 ####[facility] [address], [place]#### 47571-1, 45968-4 ####[facility], [address], [place] Eosinophils/100 leukocytes 1.8 % Normal 0.0-7.0 [facility] Comment on above: Performed By: #### 6 9742-5, 90402-4, 40171-0, 73545-7, 74944- 4, 40592-4, 75878-1, 02036-0 ####[facility] [address], [place]#### 57888-6, 86102-8 ####[facility], [facility] [address], [place] Erythrocyte distribution width Auto Ratio (RBC) 13.7 % Normal 11.0-14.8 [facility] Comment on above: Performed By: #### 6 9742-5, 93135-0, 74001-8, 03605-7, 90159- 4, 62801-6, 65139-0, 95924-2 ####[facility] [address], [place]#### 37333-8, 45039-6 ####[facility], [facility] [address] [place], [place] Erythrocytes (RBC) 4.15 million/mcL Normal 3.80-5.10 [facility] Comment on above: Performed By: #### 6 9742-5, 31967-6, 74780-4, 07384-2, 57946- 4, 02257-6, 37350-5, 08980-6 ####[facility] [address], [place]#### 01999-1, 86646-9 ####[facility], [facility] [address], [place] Hematocrit (HCT) 37.0 % Normal 35.0-45.0 [facility] Comment on above: Performed By: #### 6 9742-5, 78438-4, 18475-2, 43500-8, 63232- 4, 03053-2, 07739-8, 72672-0 ####[facility] [address], [place]#### 76693-2, 04949-9 ####[facility], [address], [place] Hemoglobin mass conc (Bld) 12.2 g/dL Normal 12.0-16.0 [facility] Comment on above: Performed By: #### 6 9742-5, 02197-9, 14517-2, 15181-9, 56619- 4, 06402-7, 05957-5, 71693-0 ####[facility] [address], [place]#### 51941-2, 13836-1 ####[facility], [address], [place] Lymphocytes 1.80 thou/mcL Normal 1.00-4.80 [facility] Comment on above: Performed By: #### 6 9742-5, 75444-0, 56784-2, 82349-6, 56774- 4, 63359-6, 92639-8, 53033-8 ####[facility] [address], [place]#### 28686-7, 10962-7 ####[facility], [address], [place] Lymphocytes/100 leukocytes 34.6 % Normal 22.0-44.0 [facility] Comment on above: Performed By: #### 6 9742-5, 77248-6, 11758-8, 34360-7, 53220- 4, 21371-6, 62494-3, 87819-7 ####[facility] [address], [place]#### 98876-5, 68414-9 ####[facility], [address], [place] MCH 29.4 Picograms Normal 27.0-34.0 [facility] Comment on above: Performed By: #### 6 9742-5, 52254-3, 57248-0, 93892-6, 87406- 4, 69115-1, 85768-0, 53930-5 ####[facility] [address], [place]#### 86986-5, 41302-5 ####[facility], [address], [place] MCHC mass conc (RBC) 33.0 g/dL Normal 32.0-36.0 [facility] Comment on above: Performed By: #### 6 9742-5, 65042-8, 52193-7, 58877-4, 73246- 4, 36636-0, 19129-2, 21882-3 ####[facility] [address], [place]#### 14857-0, 48716-6 ####[facility], [address], [place] MCV 89.2 fL Normal 80.0-97.0 [facility] Comment on above: Performed By: #### 6 9742-5, 27095-7, 91862-0, 58552-3, 13143- 4, 72002-1, 37868-3, 65721-3 ####[facility] [address], [place]#### 95710-2, 14788-7 ####[facility], [address], [place] Monocytes 0.30 thou/mcL Normal 0.00-0.90 [facility] Comment on above: Performed By: #### 6 9742-5, 76400-4, 49602-2, 28431-8, 49367- 4, 70288-6, 26695-2, 34382-3 ####[facility] [address], [place]#### 20769-5, 75996-8 ####[facility], [address], [place] Monocytes/100 leukocytes 6.0 % Normal 0.0-12.0 [facility] Comment on above: Performed By: #### 6 9742-5, 29318-8, 21024-2, 18710-5, 10734- 4, 77572-7, 50905-4, 04436-4 ####[facility] [address], [place]#### 03331-7, 91993-3 ####[facility], [address], [place] Neutrophils 3.00 thou/mcL Normal 1.80-7.70 [facility] Comment on above: Performed By: #### 6 9742-5, 47388-9, 65332-0, 89771-9, 78440- 4, 76076-9, 20696-1, 35454-3 ####[facility] [address], [place]#### 52700-1, 45871-6 ####[facility], [address], [place] Neutrophils/100 WBC Auto (Bld) 57.4 % Normal 40.0-70.0 [facility] Comment on above: Performed By: #### 6 9742-5, 89343-7, 35492-3, 53969-4, 65913- 4, 14721-3, 10879-0, 69860-1 ####[facility] [address], [place]#### 36387-3, 71141-6 ####[facility], [address], [place] Platelet mean volume (PMV) 11.9 fL Normal 6.2-12.1 [facility] Comment on above: Performed By: #### 6 9742-5, 21311-3, 33935-9, 13430-7, 85029- 4, 69770-5, 28250-5, 85254-4 ####[facility] [address], [place]#### 78623-8, 08446-4 ####[facility], [facility] [address], [place] Platelets 173 thou/mcL Normal 142-424 [facility] Comment on above: Performed By: #### 6 9742-5, 22333-4, 79756-7, 75309-3, 70633- 4, 55265-5, 41204-3, 96143-8 ####[facility] [address], [place]#### 89658-7, 09553-2 ####[facility], [address], [place] WBC (Leukocytes) 5.2 thou/mcL Normal 4.6-10.2 [facility] Comment on above: Performed By: #### 6 9742-5, 82774-4, 89569-1, 94112-9, 37143- 4, 99116-3, 11770-7, 74609-5 ####[facility] [address], [place]#### 81758-0, 50143-0 ####[facility], [address], [place] Comprehensive Metabolic Pane blanquita 04-20-2017 Alanine aminotransferase (ALT) 37 Units/L Normal 14-63 [facility] Comment on above: Performed By: #### 6 9742-5, 53678-0, 81277-1, 76697-5, 81739- 4, 30909-8, 64563-4, 34984-7 ####[facility] [address], [place]#### 92880-1, 43631-0 ####[facility], [address], [place] Albumin 4.2 g/dL Normal 3.5-4.8 [facility] Comment on above: Performed By: #### 6 9742-5, 98111-8, 20705-6, 79882-9, 72058- 4, 27425-4, 91141-8, 00491-1 ####[facility] [address], [place]#### 77857-5, 22385-9 ####[facility], [address], [place] Alkaline phosphatase (ALP) 45 Units/L Normal 32-91 [facility] Comment on above: Performed By: #### 6 9742-5, 83404-8, 18918-3, 92913-1, 20767- 4, 51629-0, 83009-5, 27575-9 ####[facility] [address], [place]#### 66593-2, 35949-5 ####[facility], [address], [place] Anion gap 10.0 mmol/L Normal 6.0-18.0 [facility] Comment on above: Result Comment: KADEN CHAMBERS NOTE:The calculated Anion Gap(AGAP) does not include Potassium. Performed By: #### 6 9742-5, 52809-0, 28604-4, 75866-1, 55652-9, 16991-0, 57940-4, 61961-5 ####[facility] [address] [place], [place]#### 49003-8, 75247-3 ####[facility], [address], [place] Aspartate aminotransferase (AST) 29 Units/L Normal 15-41 [facility] Comment on above: Performed By: #### 6 9742-5, 83138-4, 27139-1, 71627-1, 66465- 4, 36417-3, 49628-4, 67582-2 ####[facility] [address] [place], [place]#### 86036-5, 47610-2 ####[facility], [address], [place] Bilirubin (total) 0.5 mg/dL Normal 0.3-1.2 [facility] Comment on above: Performed By: #### 6 9742-5, 12340-9, 22409-6, 81254-9, 21467- 4, 59859-0, 48582-8, 62328-9 ####[facility] [address], [place]#### 25662-7, 32332-2 ####[facility], [address], [place] Calcium 9.4 mg/dL Normal 8.9-10.3 [facility] Comment on above: Performed By: #### 6 9742-5, 19474-6, 04591-5, 44234-7, 98583- 4, 04329-7, 89465-8, 05708-6 ####[facility] [address], [place]#### 85202-8, 36159-7 ####[facility], [address], [place] Chloride 102 mmol/L Normal 98-107 [facility] Comment on above: Performed By: #### 6 9742-5, 09533-9, 18790-6, 02851-2, 97151- 4, 27442-9, 16118-3, 25247-3 ####[facility] [address], [place]#### 87731-9, 65917-3 ####[facility], [address], [place] CO2 26 mmol/L Normal 22-32 [facility] Comment on above: Performed By: #### 6 9742-5, 57432-9, 96934-3, 98927-3, 64988- 4, 46415-8, 96638-2, 13953-8 ####[facility] [address], [place]#### 84211-3, 93831-5 ####[facility], [address], [place] Creatinine 0.67 mg/dL Normal 0.60-1.30 [facility] Comment on above: Performed By: #### 6 9742-5, 36080-2, 64667-6, 54538-9, 74975- 4, 06953-7, 35399-7, 00528-3 ####[facility] [address], [place]#### 22516-0, 68539-4 ####[facility], [address], [place] Glucose mass conc 119 mg/dL High 70-110 [facility] Comment on above: Performed By: #### 6 9742-5, 70150-2, 63713-4, 58105-1, 85467- 4, 78315-3, 73025-5, 37148-1 ####[facility] [address], [place]#### 86312-2, 37284-4 ####[facility], [address], [place] Potassium molar conc 4.2 mmol/L Normal 3.6-5.1 [facility] Comment on above: Performed By: #### 6 9742-5, 54515-2, 95409-4, 77666-6, 31667- 4, 85822-4, 45885-5, 99913-9 ####[facility] [address], [place]#### 04557-5, 66428-8 ####[facility], [address], [place] Protein 6.7 g/dL Normal 6.1-7.9 [facility] Comment on above: Performed By: #### 6 9742-5, 26709-9, 36317-9, 32654-4, 87589- 4, 84724-5, 24314-6, 29915-2 ####[facility] [address], [place]#### 02401-7, 96185-0 ####[facility], [address], [place] Sodium 138 mmol/L Normal 136-145 [facility] Comment on above: Performed By: #### 6 9742-5, 03231-9, 31546-3, 27007-0, 51321- 4, 13295-7, 37993-1, 82929-1 ####[facility] [address], [place]#### 18300-9, 57340-0 ####[facility], [address], [place] Urea nitrogen 9 mg/dL Normal 8-20 [facility] Comment on above: Performed By: #### 6 9742-5, 98905-1, 56210-6, 45989-4, 29245- 4, 90189-8, 11614-4, 69761-3 ####[facility] [address] [place], [place]#### 67997-3, 46666-2 ####[facility], [facility] [address], [place] Culture Urine + Susceptibili tyon 04-20-2017 Urine culture, bacteria [facility] MicrobiologyPROCEDURE: Culture Urine + SusceptibilitySOURCE: Urine BODY SITE:COLLECTED DATE/TIME: 04/20/2017 09:07 EST RECEIVED DATE/TIME: 04/20/2017 09:07 ESTSTART DATE/TIME: 04/20/2017 09:07 EST FREE TEXT SOURCE: URINE-URINEINTERFACED REPORTSFinal Report []Verified Date/Time/Personnel: 04/21/2017 18:58 EST CONTRIBUTOR_SYSTEM, CO_PNNO GROWTH Normal [facility] Comment on above: Performed By: #### 6 9742-5, 27310-8, 86831-2, 19455-8, 68644- 4, 41864-7, 24508-7, 05285-6 ####[address] [place], [place]#### 11173-9, 49562-6 ####[facility], [address] [place] [address] GFRaaon 04-20-2017 eGFR (black) mL/min/{1.73_m2} Normal [facility] Comment on above: Result Comment: The MDRD equation has not been validated for those over 70 years, women, patients with serious co-morbid conditions, or with extremes of bodysize, muscle mass of nutritional status. Performed By: #### 6 9742-5, 02737-0, 58234-4, 30264-3, 53490-2, 86425-4, 19998-2, 74013-0 ####[facility] [address] [place], [place]#### 74360-9, 33554-2 ####[facility], [address] [place], [place] GFRbbon 04-20-2017 eGFR (non-black) mL/min/{1.73_m2} Normal [facility] Comment on above: Performed By: #### 6 9742-5, 13892-3, 97964-3, 74121-8, 05703- 4, 89479-1, 84751-3, 06327-0 ####[facility] [address], [place]#### 60228-4, 36337-3 ####[facility], [address] [place], [place] HCG Quantitativeon 8 HCG Qn m[IU]/mL Normal [facility] Comment on above: Result Comment: Preg edna Reference Ranges Negative = < 5 mIU/ml Positive = > OR EQUAL TO 5 mIU/mlThe concentration of HCG rises rapidly during early .A maximum level of 5,000 to 200,000 mIU/ML is reached at 6-8weeks. This is followed by a slow decline to levels of 1,000 to 50,000mIU/ML during the third trimester.This test should be used only for the diagnosis and monitoring of .It should not be used for monitoring of neoplastic conditions includinggestational trophoblastic disease(partial mole, complete hydatidiform mole,choriocarcinoma) or other tumors. For monitoring of neoplastic disease aBeta subunit HCG test should be ordered.Results obtained using different immunoassay methods arenot interchangeable. Patient results should not be trended usingvalues obtained with a different immunoassay method. Performed By: #### 6 9742-5, 42206-0, 16171-2, 04283-5, 63600-5, 41714-7, 39735-7, 79553-3 ####[facility] [address], [place]#### 34132-6, 12627-9 ####[facility], [address] [place], [place] HIV 1 Antibodyon 04-20-2017 HIV Screen NONREAC Normal NONREAC [facility] Comment on above: Result Comment: This is a 4th generation test (P24 AG,HIV-1 AB, HIV-2 AB)Specimens with preliminary reactive results will be confirmed by HIV1/2Differentiation test ([employer]). THE IDENTITY OF A PERSON ON WHOM AN HIV TEST HAS BEEN ORDERED AND THERESULTS OF THAT TEST ARE CONFIDENTIALThis information is confidential and protected from disclosure by state law.You shall make no further disclosure of this information without thespecific written and informed release of the individual tested or asotherwise permitted by law. A person who knowingly violates thisconfidentiality may be found liable in a civil action and be responsible forcompensitory damages and equitable relief. Performed By: #### 6 9742-5, 87090-6, 23450-9, 54064-9, 96442-8, 12462-4, 49491-4, 24459-7 ####[facility] [address] [place], [place]#### 23562-3, 99001-7 ####[facility], [address], [place] Hepatitis A (HAAb) Antibody IgMon 04-20-2017 Hepatitis A (HAAb) Antibody IgM Negative Normal NEGATIVE [facility] Comment on above: Result Comment: Hepa titis A Virus Antibody-IgM Specific. Performed By: #### 6 9742-5, 79229-5, 05636-6, 47530-1, 18583-2, 94317-8, 48647-7, 68369-3 ####[facility] [address], [place]#### 01270-6, 85326-0 ####[facility], [address], [place] Hepatitis B Core Antibody To shirley 04-20-2017 Interpretation and review of laboratory results Negative Normal NEGATIVE [facility] Comment on above: Performed By: #### 6 9742-5, 33901-8, 86347-2, 61146-0, 42269- 4, 85527-9, 93656-9, 36146-2 ####[facility] [address], [place]#### 21371-4, 17137-7 ####[facility], [address] [place], [place] Hepatitis B Surface Antibody on 04-20-2017 Hepatitis B Surface Antibody Interp Negative Normal NEGATIVE [facility] Comment on above: Performed By: #### 6 9742-5, 94516-9, 09716-9, 97945-9, 76120- 4, 64690-5, 92376-0, 10492-9 ####[facility] [address] [place], [place]#### 64030-4, 81475-7 ####[facility], [address], [place] Magnesium Levelon 04-20-2017 Magnesium 2.0 mg/dL Normal 1.8-2.5 [facility] Comment on above: Performed By: #### 6 9742-5, 19262-8, 39067-7, 77583-6, 24530- 4, 33009-3, 20350-2, 18898-1 ####[facility] [address] [place], [place]#### 22379-7, 21849-3 ####[facility], [address], [place] Phosphorus Levelon 8 Phosphorus Level 3.8 mg/dL Normal 2.4-4.7 [facility] Comment on above: Performed By: #### 6 9742-5, 27900-3, 74559-7, 41515-1, 86814- 4, 94071-2, 86334-3, 54278-2 ####[facility] [address] [place], [place]#### 95146-7, 01801-0 ####[facility], [address] [place], [place] Syphilis Screenon 04-20-2017 Syphilis Screen NONREAC Normal NONREAC [facility] Comment on above: Result Comment: No s erologic evidence of syphilis. Performed By: #### 6 9742-5, 03223-2, 10878-1, 14346-7, 85265-5, 91409-7, 73835-5, 75173-4 ####[facility] [address], [place]#### 54214-7, 92760-6 ####[facility], [address] [place], [place] Vital Signs Date Time Vital Sign Value Performing Clinician Facility 03-24-2024 11:29-0500 Body mass index (BMI) [Ratio] 24.49 kg/m2 [facility] 03-24-2024 11:29-0500 Body weight 61.24 kg [facility] Nurse [facility] 03-24-2024 11:29-0500 Diastolic blood pressure 68 mm[Hg] [facility] Nurse [facility] 03-24-2024 11:290500 Systolic blood pressure 112 mm[Hg] [facility] Nurse [facility] 11-25-2023 17:46-0400 Body height 160.02 cm DO Yaz Enoch Herrerapadilla Work Phone: [facility] 11-25-2023 17:46-0400 Body temperature 98 [degF] DO JimyAdeline Herreratoniemadeline Work Phone: [facility] 11-25-2023 17:46-0400 Body weight 65.77 kg DO Yaz Herreratoniemadeline Work Phone: [facility] 11-25-2023 17:46-0400 Diastolic blood pressure 71 mm[Hg] DO JimyAdeline Herrerapadilla Work Phone: [facility] 11-25-2023 17:46-0400 Heart rate 68 /min DO Yaz Enoch Bunny Work Phone: [facility] 11-25-2023 17:46-0400 Respiratory rate 18 /min DO Yaz Enoch Bunny Work Phone: [facility] 11-25-2023 17:46-0400 SaO2% (BldA) [Mass fraction] 97 % DO Yaz Enoch Herrerapadilla Work Phone: [facility] 11-25-2023 17:46-0400 Systolic blood pressure 107 mm[Hg] DO Yaz Hollis Work Phone: [facility] 12-02-2022 13:15-0400 Body height 160.02 cm Claribeljessica Mora Other [facility] Other 12-02-2022 13:15-0400 Body mass index (BMI) [Ratio] 25.86 kg/m2 Claribel Mora Other [facility] Other 12-02-2022 13:15-0400 Body weight 66.23 kg Claribel Mora Other [facility] Other 12-02-2022 13:15-0400 Diastolic blood pressure 66 mm[Hg] Claribeljessica Mora Other [facility] Other 12-02-2022 13:15-0400 Respiratory rate 18 /min Claribeljessica Mora Other [facility] Other 12-02-2022 13:15-0400 SaO2% (BldA) [Mass fraction] 98 % Claribelbrie Mora Other [facility] Other 12-02-2022 13:15-0400 Systolic blood pressure 100 mm[Hg] Claribel Abby Other [facility] Other 07-16-2022 14:45-0400 Body height 160.02 cm Claribel Abby Other [facility] Other 07-16-2022 14:45-0400 Body mass index (BMI) [Ratio] 27.22 kg/m2 Claribeljessica Mora Other [facility] Other 07-16-2022 14:45-0400 Body weight 69.72 kg Claribeljessica Mora Other [facility] Other 07-16-2022 14:45-0400 Diastolic blood pressure 64 mm[Hg] Claribeljessica Mora Other [facility] Other 07-16-2022 14:45-0400 Respiratory rate 18 /min Claribeljessica Mora Other [facility] Other 07-16-2022 14:45-0400 SaO2% (BldA) [Mass fraction] 97 % Claribeljessica Mora Other [facility] Other 07-16-2022 14:45-0400 Systolic blood pressure 104 mm[Hg] Claribel Abby Other [facility] Other 06-04-2022 15:15-0400 Body height 160.02 cm Adin Gan Other [facility] Other 06-04-2022 15:15-0400 Body mass index (BMI) [Ratio] 27.28 kg/m2 Adin Gan Other [facility] Other 06-04-2022 15:15-0400 Body weight 69.85 kg Adin Gan Other [facility] Other 06-04-2022 15:15-0400 Diastolic blood pressure 80 mm[Hg] Adin Gan Other [facility] Other 06-04-2022 15:15-0400 Respiratory rate 18 /min Adin Gan Other [facility] Other 06-04-2022 15:15-0400 SaO2% (BldA) [Mass fraction] 98 % Adin Gan Other [facility] Other 06-04-2022 15:15-0400 Systolic blood pressure 126 mm[Hg] Adin Gan Other [facility] Other 05-25-2022 15:30-0500 Body height 160.02 cm Adin Gan Other [facility] Other 05-25-2022 15:30-0500 Body mass index (BMI) [Ratio] 27.28 kg/m2 Adin Gan Other [facility] Other 05-25-2022 15:30-0500 Body weight 69.85 kg Adin Gan Other [facility] Other 05-25-2022 15:30-0500 Diastolic blood pressure 80 mm[Hg] Adin Gan Other [facility] Other 05-25-2022 15:30-0500 Respiratory rate 18 /min Adin Gan Other [facility] Other 05-25-2022 15:30-0500 SaO2% (BldA) [Mass fraction] 99 % Adin Gan Other [facility] Other 05-25-2022 15:30-0500 Systolic blood pressure 124 mm[Hg] Adin Gan Other [facility] Other 05-30-2021 03:06-0500 Body weight 72.[address] RUSTAM SCALES [facility] Comment on above: Performed By: #### AFPMAT #### [facility] [address] [place], [place] [id number] Dr. Lilia Calvillo Encounters Encounter Date Encounter Type Care Provider Facility Start: 03-24-2024 End: 03-24-2024 ambulatory [facility] Ingrid Nurse [facility] Comment on above: GA: [id number] Start: 03-04-2024 End: 03-04-2024 Emergency department patient visit Yaz Hollis Facility:[facility] Start: 11-25-2023 End: 11-25-2023 Emergency department patient visit DO Yaz Hollis Work Phone: [facility] Work Phone: Start: 10-05-2023 End: 10-05-2023 ambulatory RICARDO POWELL Not Available Start: 06-16-2023 End: 06-16-2023 ambulatory RICARDO POWELL Not Available Start: 04-12-2023 End: 04-12-2023 ambulatory JOHN HERRERAPADILLA Not Available Start: 12-02-2022 End: 12-02-2022 ambulatory Claribel Mora Other [facility] Other Start: 12-02-2022 Office outpatient vi sit 25 minutes Claribel Mora [facility] [place] Start: 07-16-2022 End: 07-16-2022 ambulatory Claribel Mora Other [facility] Other Start: 07-16-2022 Office outpatient vi sit 25 minutes Claribel Mora [facility] [place] Start: 06-08-2022 End: 06-08-2022 ambulatory Adin Gan Other [facility] Other Start: 06-08-2022 Telephone encounter Adin Ahn [facility] [place] Start: 06-05-2022 End: 06-05-2022 ambulatory Adin Gan Other [facility] Other Start: 06-05-2022 Telephone encounter Adin Ahn [facility] Start: 06-04-2022 End: 06-04-2022 Patient encounter procedure DO Adin Gan Work Phone: [facility] Start: 06-04-2022 End: 06-04-2022 ambulatory DO Adin Tariq Malik Work Phone: [facility] Work Phone: Start: 06-04-2022 Office outpatient vi sit 15 minutes Adin Gan [facility] Start: 05-25-2022 End: 05-25-2022 ambulatory Adin Gan Other [facility] Other Start: 05-25-2022 Office outpatient vi sit 15 minutes Adin Gan [facility] Start: 05-22-2022 End: 05-22-2022 ambulatory Adin Gan Other [facility] Other Start: 05-22-2022 Telephone encounter Adin MA [facility] [place] Start: 05-07-2022 End: 05-07-2022 ambulatory Adin Gan Other [facility] Other Start: 05-07-2022 Telephone encounter Adin MA [facility] [place] Start: 04-01-2022 End: 04-01-2022 ambulatory Nabil Mcgraw Other [facility] Other Start: 04-01-2022 Telephone encounter Nabil Mcgraw [facility] [place] Start: 02-17-2022 End: 02-17-[address] JAGUAR QUINTERO Facility:[facility] Start: 10-22-2021 Encounter for preprocedural laboratory examination DR JAGUAR QUINTERO [facility] Start: 10-21-2021 End: 10-21-[address] JAGUAR QUINTERO Facility:[facility] Start: 10-16-2021 End: 10-18-2021 Evaluation and management of inpatient DR JAGUAR QUINTERO Facility:[facility] Start: 10-14-2021 Encounter for preprocedural laboratory examination DR JAGUAR QUINTERO [facility] Start: 10-13-2021 End: 10-14-2021 ambulatory NONE LISTED REQUEST Facility:[facility] Start: 10-13-2021 End: 10-14-2021 Encounter for preprocedural laboratory examination NONE LISTED REQUEST Facility:[facility] Start: 09-25-2021 End: 09-25-[address] RUSTAM SCALES Facility:[facility] Start: 07-21-2021 End: 07-22-[address] RUSTAM SCALES Facility:[facility] Start: 07-09-2021 End: 07-10-[address] RUSTAM SCALES Facility:[facility] Start: 06-05-2021 End: 06-06-[address] RUSTAM SCALES Facility:[facility] Start: 05-28-2021 End: 05-29-[address] RUSTAM SCALES Facility:[facility] Start: 05-09-2021 End: 05-10-[address] RUSTAM SCALES Facility:[facility] Start: 04-03-2021 End: 04-04-[address] RUSTAM SCALES Facility:[facility] Start: 04-03-2021 End: 04-04-[address] RUSTAM SCALES Facility:[facility] Start: 04-22-2017 End: 04-22-2017 Ambulatory HOME [facility]W Facility:[facility] Start: 04-21-2017 End: 04-21-2017 Ambulatory [facility]W Facility:[facility] Procedures Date Procedure Procedure Detail Performing Clinician Start: 03-24-2024 End: 03-24-2024 Urnls dip stick/tablet rgnt non-auto w/o micrscp Jaguar Quintero DO Work Phone: Start: 11-25-2023 CT cervical spine without contrast DO Yaz Hollis Work Phone: Start: 11-25-2023 CT of head without contrast DO Yaz Hollis Work Phone: Start: 10-16-2021 Extraction of Produc ts of Conception, Low Cervical, Open Approach DR RUSTAM SCALES H/O: section Status pos t delivery DO Adin Gan Work Phone: Plan of Treatment Date Care Activity Detail Author Start: 01-02-2026 Screening for malign ant neoplasm of cervix [facility] Start: 04-24-2024 End: 04-24-2024 Patient encounter procedure 04/24/2024 2:20 PM EST Routine [facility] [address] [place] [id number] Jaguar Quintero, DO [address] [place] [address] [facility] Start: 03-24-2024 End: 03-24-2025 ABO/Rh ABO/Rh Lab Routine Missed menses , unspecified gestational age Expected: 03/24/2024 (Approximate), Expires: 03/24/2025 [facility] Comment on above: Expected: 03/24/2024 (Approximate), Expires: 03/24/2025 Start: 03-24-2024 End: 03-24-2025 Blood type and Indirect antibody screen panel - Blood Type and screen Lab Routine Missed menses , unspecified gestational age Expected: 03/24/2024 (Approximate), Expires: 03/24/2025 [facility] Work Phone: Comment on above: Expected: 03/24/2024 (Approximate), Expires: 03/24/2025 Start: 03-24-2024 End: 03-24-2025 Drugs of abuse panel - Urine by Screen method Rapid drug screen, urine Lab Routine , unspecified gestational age Encounter for supervision of normal first in first trimester Expected: 03/24/2024 (Approximate), Expires: 03/24/2025 [facility] Comment on above: Expected: 03/24/2024 (Approximate), Expires: 03/24/2025 Start: 11-21-2023 Influenza vaccination Influenza Vacc ine (#1) [facility] Start: 2014 Screening for malign ant neoplasm of cervix Pap Smear [facility] Bacteria identified in Urine by Culture Urine culture Microbiology Routine Missed menses Ordered: 03/24/2024 [facility] Comment on above: Ordered: 03/24/2024 CBC W Auto Different ial panel - Blood CBC and differential Lab Routine Missed menses , unspecified gestational age Ordered: 03/24/2024 [facility] Comment on above: Ordered: 03/24/2024 Hemoglobin A1c/Hemoglobin.total in Blood Hemoglobin A1c Lab Routine Missed menses , unspecified gestational age Ordered: 03/24/2024 [facility] Comment on above: Ordered: 03/24/2024 Hepatitis B virus surface Ag [Presence] in Serum or Plasma by Immunoassay Hepatitis B surface antigen Lab Routine Missed menses , unspecified gestational age Ordered: 03/24/2024 [facility] Comment on above: Ordered: 03/24/2024 Hepatitis C virus Ab [Presence] in Serum or Plasma by Immunoassay Hepatitis C antibody Lab Routine Missed menses , unspecified gestational age Ordered: 03/24/2024 [facility] Comment on above: Ordered: 03/24/2024 HIV-1/HIV-2 antigen/antibody combination immunoassay HIV-1 and HIV-2 antibodies Lab Routine Missed menses , unspecified gestational age Ordered: 03/24/2024 [facility] Comment on above: Ordered: 03/24/2024 Patient Education Radiculopathy (DC) [facility] Work Phone: Patient referral [facility] Work Phone: Reagin Ab [Presence] in Serum by RPR RPR Lab Routine Missed menses , unspecified gestational age Ordered: 03/24/2024 [facility] Comment on above: Ordered: 03/24/2024 Rubella antibody, IgG Rubella an tibody, IgG Lab Routine Missed menses , unspecified gestational age Ordered: 03/24/2024 [facility] Comment on above: Ordered: 03/24/2024 Immunizations Immunization Date Immunization Notes Care Provider [facility] 06-30-2019 tetanus toxoid, reduced diphtheria toxoid, and acellular pertussis vaccine, adsorbed DO Adin Gan Work Phone: [facility] 05-12-2013 influenza, seasonal, injectable, preservative free [facility] 05-12-2013 influenza virus vaccine, unspecified formulation [facility] 10-19-2012 tetanus toxoid, reduced diphtheria toxoid, and acellular pertussis vaccine, adsorbed [facility] 02-25-2012 influenza, seasonal, injectable [facility] 01-09-2011 influenza virus vaccine, live, attenuated, for intranasal use [facility] 02-28-2007 influenza, seasonal, injectable [facility] 02-01-2006 influenza, seasonal, injectable [facility] NEGATED: Highlighted row has not occurred!07-16-2022 influenza, seasonal, injectable Patient Objection Claribel Mora Other [facility] Other Payers Date Payer Category Payer [facility] er [id number] 2023 Unknown [id number] 2023 Private Health Insurance [id number] 2022 Medicaid [id number] 2017 Unknown [id number] 1993 Unknown [id number] 2.16.840.1.233539.3.579.2. 593 1993 Unknown [id number] .16.840.1.370905.3.579.2. 593 1993 Unknown [id number] 2.16.840.1.044106.3.579.2. 593 1993 Unknown [id number] 2.16.840.1.800384.3.579.2. 593 1993 Unknown [id number] 2.16.840.1.236337.3.579.2. 593 1993 Unknown [id number] 2.16.840.1.607845.3.579.2. 593 1993 Unknown [id number] 2.16.840.1.659712.3.579.2. 593 1993 Unknown [id number] 2.16.840.1.265466.3.579.2. 593 1993 Unknown [id number] 2.16.840.1.138220.3.579.2. 593 1993 Unknown [id number] 2.16.840.1.815606.3.579.2. 593 1993 Unknown [id number] 2.16.840.1.320089.3.579.2. 593 1993 Unknown [id number] 2.16.840.1.525542.3.579.2. 1259 1993 Unknown [id number] 2.16.840.1.939307.3.579.2. 1259 1993 Unknown [id number] 2.16.840.1.973462.3.579.2. 125 1993 Unknown [id number] 2.16.840.1.945991.3.579.2. 1259 1993 Unknown [id number] 2.16.840.1.522658.3.579.2. 1259 1993 Unknown [id number] 2.16.840.1.163160.3.579.2. 1259 1959 Self-pay 1959 Unknown [id number] 1959 Unknown [id number] Medicaid [employer] [id number] [facility] [id number] Unknown [id number] 2.16.840.1.967449.3.579.2. 593 Unknown [id number] 2.16.840.1.303898.3.579.2. 531 Unknown [id number] 2.16.840.1.254628.3.579.2. 531 Social History Date Type Detail Facility Start: 10-05-2023 Sex Assigned At [facility] Other Start: 04-28-2020 Tobacco smoking status [facility] Never smoked tobacco (finding) [facility] Start: 1995 Sex Assigned At Female [facility] Start: 11-25-2023 End: 03-22-2017 Tobacco smoking status PAIS Smoker (finding) [facility] Start: 10-05-2023 Tobacco smoking status [facility] Ex-smoker [facility] End: 03-22-2017 History of tobacco use Cigarette Smoker [facility] Start: 10-05-2023 Tobacco use and exposure Smokeless tobacco non-user [facility] Start: 03-24-2024 Alcoholic beverage intake Ex-drinker (finding) [facility] Start: 10-05-2023 History of Social function [facility] Start: 06-20-2023 Education 21 [facility] Start: 06-20-2023 Tobacco Comment Last smoked : 1- 5 years [facility] Start: 06-20-2023 Alcohol Comment caffeine intake : 1-2 cups per day [facility] Start: 02-04-2024 [facility] Start: 07-12-2023 Gender identity Identifies as female gender (finding) [facility] Start: 07-12-2023 Sexual orientation Heterosexual (finding) [facility] Clinical Notes 08-20-2017 to 03-24-2024 Chrissy Gomez MA - 03/24/2024 11:00 AM EST Note Date & Type Note Facility 03-24-2024 History of Presen t illness Narrative Reason for Appointment: Patient ID: Nicole Farris is a 28 y.o. female who presents for Amenorrhea Patient presents today for a Nurse OB Intake appointment. Patient is 9w0d with a Estimated Date of Delivery: 10/27/24 OB History Para Term AB Living 3 2 SAB IAB Ectopic Multiple Live Births # Outcome Date GA Lbr Lai/2nd Weight Sex Type Anes PTL Lv 3 Current 2 1 Current Medications: has a current medication list which includes the following prescription(s): citalopram, cyclobenzaprine, fluticasone, metoclopramide, ondansetron odt, promethazine, sprintec 28, and valacyclovir. Medical History: Active Ambulatory Problems Diagnosis Date Noted Amenorrhea 04/07/2023 Birthmark of skin 04/07/2023 Constipation 04/07/2023 Chronic GERD 04/07/2023 Goiter ([facility]) 04/07/2023 Migraine without aura and without status migrainosus, not intractable ([facility]) 04/07/2023 Moderately severe depression ([facility]/H[facility]) 04/07/2023 Resolved Ambulatory Problems Diagnosis Date Noted No Resolved Ambulatory Problems Past Medical History: Diagnosis Date Allergic Depression ([facility]) Drug addiction ([facility]) Enlarged thyroid ([facility]) Hepatitis C ([facility]) Hepatitis C ([facility]) Hx of abnormal cervical Pap smear 2014 Migraine ([facility]) Seasonal allergies UTI (urinary tract infection) Vaccine for VZV (varicella-zoster virus) Family History Problem Relation Name Age of Onset Thyroid disease Mother Fibromyalgia Mother Asthma Mother Alcohol abuse Father Uterine cancer Mother's Sister Hypertension Maternal Grandmother Bone cancer Maternal Grandmother Bone cancer Maternal Grandfather Lung cancer Paternal Grandfather Bone cancer Paternal Grandfather Hypertension Paternal Grandfather Social History Tobacco Use Smoking status: Former Current packs/day: 0.00 Types: Cigarettes Quit date: 03/22/2017 Years since quittin.0 Smokeless tobacco: Never Tobacco comments: Last smoked : 1- 5 years Vaping Use Vaping status: Never Used Substance Use Topics Alcohol use: Not Currently Comment: caffeine intake : 1-2 cups per day Drug use: Not Currently Comment: hx of cocaine, heroin, alcohol addiction, quit in 2015 Past Surgical History: Procedure Laterality Date CERVICAL BIOPSY W/ LOOP ELECTRODE EXCISION 2015 SECTION, CLASSIC 06/29/2019 SECTION, LOW TRANSVERSE 10/16/2021 CYSTOSCOPY 2017 to stretch bladder TONSILLECTOMY age 3 Allergies Allergen Reactions Codeine Unknown Penicillamine Unknown Penicillin G Hives Sulfa Antibiotics Unknown Sulfamethoxazole-Trimethoprim Other Reaction(s): lips swelling Sumatriptan Other Reaction(s): paresthesias, felt weird Vitals: Estimated body mass index is 24.49 kg/m as calculated from the following: Height as of 06/16/23: 5' 2.25 . Weight as of this encounter: 135 lb. BP: 112/68 Patient's last menstrual period was 01/21/2024. Assessment/Plan Diagnoses and all orders for this visit: Missed menses - Type and screen; Future - ABO/Rh; Future - CBC and differential - Hemoglobin A1c - RPR - Rubella antibody, IgG - Hepatitis B surface antigen - Hepatitis C antibody - HIV-1 and HIV-2 antibodies - Urine culture - POCT , urine manually resulted - POCT urinalysis dipstick manually resulted 8 weeks gestation of , unspecified gestational age - Type and screen; Future - ABO/Rh; Future - CBC and differential - Hemoglobin A1c - RPR - Rubella antibody, IgG - Hepatitis B surface antigen - Hepatitis C antibody - HIV-1 and HIV-2 antibodies - Rapid drug screen, urine; Future Encounter for supervision of normal first in first trimester - Rapid drug screen, urine; Future Nausea and vomiting in Nurse Note: Patient has stated that she has been having nausea/vomiting since she found out she became . Pt has tried taking the zofran, promethazine and reglan as prescribed. However, patient has been to the ER due to vomiting and medication not helping. Patient has been advised that [employer] will be contacted so she can get on the Zofran pump. Pt verbally understood and stated she will try anything just in order to be able to eat and feel better. [employer] referral was sent out on 03/24/2024. OB Intake: Patient presents today for first OB visit. Patients history has been reviewed in great detail including any potential risks. Patient signed consent forms and patient desires testing in both trimesters. Patient currently has no complaints and has been advised to drink 6-8 glasses of water a day, eat no raw or undercooked meat, and stay away from [facility]. Patient has also been advised to not change litter boxes and eat 6 small meals a day. Patient has been consulted regarding the do's and don'ts of . Patient was given labs and all questions and concerns were answered. Follow Up: Patient is to return in 4 weeks for routine OB appointment. Follow Up: Patient is to have labs drawn at directed and return to office for initial OB appointment with provider. Patient may call office as needed with any concerns or questions. Nurse Visit Completed by: Chrissy Gomez MA documented in this encounter [facility] 12-02-2022 Evaluation note Encounter Date Diagnosis Assessment Notes Nov, Vaginal ab (ICD-10 - B37.31) Will treat with oral fluconazole, if not improving after treatment to follow up for evaluation Nov, Eustachian tube dysfunction (ICD-10 - H69.80) Recommend daily flonase Nov, SEEMA (generalized anxiety disorder) (ICD-10 - F41.1) Discussed uncontrolled anxiety vs ADHD could explain symptoms. She does not express any actual manic type symptoms. She feels moods are up and down. We will refer to psychology for formal evaluation and will trial increasing dose of celexa to 40mg daily. We will plan to f/u after evaluation by psych to discuss med recommendations . To call with any issues with new dose of Celexa in the mean time. Nov, Concentration deficit (ICD-10 - R41.840) [facility] Other 04-27-2023 Evaluation note* Encounter Date Diagnosis Assessment Notes Treatment Notes Treatment Clinical Notes Jun, Constipation (ICD-10 - K59.00) Recommend starting daily miralax and can titrate dosing down as needed, recommend increasing water intake as well. Follow up if no improvement or worsening symptoms Jun, SEEMA (generalized anxiety disorder) (ICD-10 - F41.1) Well controlled on current dose of Citalopram, will continue Jun, Tension type headache (ICD-10 - G44.209) Recommend staying well hydrated, regular gentle neck stretches. Can use OTC meds PRN, f/u if no improvement or worsening symptoms. [facility] Other 03-16-2023 Evaluation note* Encounter Date Diagnosis Assessment Notes Treatment Notes Treatment Clinical Notes May, SEEMA (generalized anxiety disorder) (ICD-10 - F41.1) We discussed that benefit from the citalopram will take a few weeks so she can continue the buspirone in the meantime. We will call with the lab results May, Screening for diabetes mellitus (ICD-10 - Z13.1) May, History of hepatitis C (ICD-10 - Z86.19) May, Chronic fatigue (ICD-10 - R53.82) [facility] Other 03-06-2023 Evaluation note* Encounter Date Diagnosis Assessment Notes Treatment Notes Treatment Clinical Notes May, SEEMA (generalized anxiety disorder) (ICD-10 - F41.1) She will call if this does not adequately control her symptoms May, Encounter for other contraceptive management (ICD-10 - Z30.8) [facility] Other 02-16-2023 Evaluation note* Encounter Date Diagnosis Assessment Notes Treatment Notes Treatment Clinical Notes Apr, SEEMA (generalized anxiety disorder) (ICD-10 - F41.1) [facility] Other 07-28-2022 NoteOPERATIVE NOTE OPERATION DATE: 10/16/2021 PROCEDURE: Repeat low transverse section. PREOPERATIVE DIAGNOSIS: 1. Intrauterine at 39 weeks. 2. Previous . POSTOPERATIVE DIAGNOSIS: 1. Intrauterine at 39 weeks. 2. Previous . ANESTHESIA: Spinal with Duramorph. SURGEON: Jaguar Quintero D.O. HAND BUTTON SPLITTER: KATHERINE Dao URINE OUTPUT: Yellow and clear. BLOOD LOSS: 600 mL. FINDINGS: Viable female. Apgars 9 at 1, 10 at 5. Weight unknown at this time. SPECIMEN: Placenta. PROCEDURE: Patient was taken back to the Operating Room where she was given a spinal anesthesia with Duramorph without difficulty. She was prepped and draped in the normal sterile fashion. A Pfannenstiel skin incision was then made 2 cm above the symphysis pubis and carried down to underlying rectus fascia using a Bovie. The fascia was incised in the midline and extended laterally using Montanez scissors. Two Cathi clamps were placed on the superior aspect of the fascia and dissected off the underlying rectus muscles. The same was performed on the inferior aspect as well. The muscles were then in the midline. Peritoneum was identified and entered bluntly. The peritoneum was then extended superiorly and inferiorly with good visualization of the bladder. The bladder blade was inserted. A low transverse incision was made on the patient's uterus and extended laterally digitally. The was then delivered atraumatically after the bladder blade was removed in the cephalic position. The cord was clamped and cut. Cord blood was obtained. The was handed off to awaiting team. The patient's placenta was spontaneously delivered. The uterus was then exteriorized. The uterus was cleared of all clots and debris. The bladder blade was reinserted. The patient's uterine incision was closed using #0 Vicryl in a running lock fashion. Excellent hemostasis was assured. The uterus was then returned to the patient's abdomen. The patient's abdomen was copiously irrigated using warm saline. Peritoneal gutters were cleared of all clots and debris. Again excellent hemostasis was assured. The patient's peritoneum was closed using 3-0 Vicryl in a running fashion. The patient's fascia was closed using #0 Vicryl in a running fashion. The patient's skin was closed using 4-0 Vicryl subcuticularly. The patient tolerated the procedure well. Sponge, lap, and needle counts were correct x2. The patient was taken to the Recovery Room in stable condition.[id number] Note DISCHARGE DATE: 10/18/2021 PRIMARY DIAGNOSES: 1. Uterine 39 weeks. 2. Previous . PROCEDURE: Repat low transverse section. HOSPITAL COURSE: As expected. Please see chart for full details. LABORATORY DATA: Please see chart. COMPLICATIONS: None. DISCHARGE CONDITION: Stable. CONSULTATION: Anesthesia. DISCHARGE INSTRUCTIONS: 1. Diet: Regular. 2. Medications: a. Percocet 5/325 one to two p.o. every 4-6 hours p.r.n. pain. b. Motrin 800 one p.o. every 8 hours p.r.n. pain. 3. Follow-p in one week. Restrictions: Pelvic rest for 6 weeks. No heavy lifting. May drive when pain free and no longer on narcotics.[id number] History general Narrative - Reported* Type Description Date Medical History Hep C - cured as of August 2017 Medical History Miscarriage 06/2018 Surgical History Pre cancerous cells removed- ou tpatient Derm procedure 2012 Surgical History csection 10/16/2021 [facility] [employer] Other 06-01-2018 History general Narrative - Reported* Type Description Date Medical History Hep C - cured as of August 2017 Medical History Miscarriage 06/2018 Surgical History Pre cancerous cells removed- outpatient Derm procedure 2012 Surgical History x 2 10/16/2021 Surgical History tonsillectomy Hospitalization History see above Hospitalization History child x 2 [facility] Other Evaluation noteNo [facility] [employer] Other Evaluation noteNo assessment information available [facility] Work Phone: Evaluation note* Diagnosis Missed menses 8 weeks gestation of , unspecified gestational age Encounter for supervision of normal first in first trimester Nausea and vomiting in Unspecified vomiting of , unspecified as to episode of care [facility] Additional Instructions Flexeril for needed for muscle spasms You cannot work or drive when taking Flexeril Ice for the next 24 hours and then rotate heat Tylenol or Motrin if needed for pain Take steroids as directed Follow-up with your doctor Gentle range of motion Avoid heavy lifting Return here if any problems persist [facility]sen[facility] Work Phone: Summary Purpose Family History No Family History Records Found Relationship Condition Age at Onset Recorded Date/T joe Not Specified No pertinent family history Unknown Advance Directives No Advanced Directives Records Found Advance Directive Response Recorded Date/ Time Advance Directives No April 2:38pm Chief Complaint and Reason for Visit Chief Complaint F41.1 R53.82 Chief Complaint pain back of neck,he adache Reason for Referral Reason concentration issues , uncontrolled anxiety, eval for ADHD Diagnosis 1 Concentration defici t (R41.840) Referral Organization [facility] Family Winsome Barbosa Referring Provider First Name Claribel Referring Provider Last Name Abby Referring Provider Specialty Family Medi cine Referred Organization [facility] Referred Address [address],[place],[address] Referred Provider Specialty Psychologist Referral Priority Routine Additional Source Comments INFORMATION SOURCE (unrecogn ized section and content) DATE CREATED AUTHOR 09/13/2017 [facility] DATE CREATED AUTHOR AUTHOR'S ORGANIZ ATION 05/25/2021 [facility] DATE CREATED AUTHOR AUTHOR'S ORGANIZ ATION 02/27/2022 [facility] DATE CREATED AUTHOR AUTHOR'S ORGANIZ ATION 03/13/2024 [facility] DATE CREATED AUTHOR AUTHOR'S ORGANIZ ATION 03/31/2024 [facility] EPIC REASON FOR VISIT (unrecogniz ed section and content) Reason Comments Amenorrhea Care Teams (unrecognized sec tion and content) Team Status: Active Member Role Status Dates Adin Gan DO Primary Care Provider Active Team Status: Inactive Member Role Status Dates Adin Gan DO Primary Care Provider, Attending Provider Active Team Status: Active Member Role Status Dates Yaz Hollis DO Primary Care Provider Active Team Status: Inactive Member Role Status Dates Yaz Hollis DO Primary Care Provider Active Start: November 25, 2023 End: November 25, 2023 Vianney Genao APRN Emergency Provider Active Start: November 25, 2023 End: November 25, 2023 [employer] Marketing Relationship Specialty Start Date End Date John Hollis DO [address] [place] [address] PCP - General Family Medicine 04/12/23 Enoch Villalobos DO [address] [place] [address] PCP - [facility] 06/21/23 Goals (unrecognized section and content) Goals may be documented in a n alternate section FOR RECORDS PERTAINING TO PATIENTS WHO ARE OR HAVE BEEN ENROLLED IN A CHEMICAL DEPENDENCY/SUBSTANCEABUSE PROGRAM, SOME INFORMATION MAY BE OMITTED. This clinical summary was aggregated from multiple sources. Caution should be exercised in using it in the provision of clinical care. This summary normalizes information from multiple sources, and as a consequence, information in this document may materially change the coding, format and clinical context of patient data. In addition, data may be omitted in some cases. CLINICAL DECISIONS SHOULD BE BASED ON THE PRIMARY CLINICAL RECORDS. [facility] provides no warranty or guarantee of the accuracy or completeness of information in this document.
[2024-04-03 12:24] LABS: BOX Test Reference Lab UNITY; BOX Test Sent Out UNITY
[2024-04-03 12:32] LABS: Basophils Percent Auto 0.1 % (0.2-2.0); Eosinophils Absolute Auto 0.1 10^3/uL (0.0-0.7); Eosinophils Percent Auto 1.1 % (0.9-7.0); Hematocrit 34.2 % (36.0-48.0); Hemoglobin 11.1 g/dL (12.0-16.0); Immature Granulocytes Abs Auto 0.04 10^3/uL (0.00-0.03); Immature Granulocytes Pct Auto 0.5 % (0.0-0.5); Lymphocytes Absolute Auto 1.4 10^3/uL (1.2-3.8); Lymphocytes Percent Auto 18.4 % (20.5-60.0); Mean Corpuscular HGB Conc 32.5 g/dL (29.9-35.2); Mean Corpuscular Volume 89.3 fL (81.0-99.0); Mean Platelet Volume 12.9 fL (9.5-13.5); Monocytes Absolute Auto 0.4 10^3/uL (0.3-0.8); Monocytes Percent Auto 5.6 % (1.7-12.0); Neutrophils Absolute Auto 5.5 10^3/uL (1.4-6.5); Neutrophils Percent Auto 74.3 % (43.0-75.0); Platelet Count 195 10^3/uL (150-450); Red Blood Count 3.83 10^6/uL (4.20-5.40); Red Cell Distribution Width 14.4 % (11.0-15.0); White Blood Count 7.4 10^3/uL (4.0-11.0)
[2024-04-03 12:44] LABS: Amphetamine Screen Urine NEGATIVE (NEGATIVE); Barbiturates Screen Urine NEGATIVE (NEGATIVE); Benzodiazepines Screen Urine NEGATIVE (NEGATIVE); Buprenorphine Screen Urine NEGATIVE (NEGATIVE); Cannabinoid Screen Urine POSITIVE (NEGATIVE); Cocaine Screen Urine NEGATIVE (NEGATIVE); Methadone Screen Urine NEGATIVE (NEGATIVE); Methamphetamines Screen Urine NEGATIVE (NEGATIVE); Opiate Screen Urine NEGATIVE (NEGATIVE); Oxycodone Screen Urine NEGATIVE (NEGATIVE); Phencyclidine Screen Urine NEGATIVE (NEGATIVE); Tricyclic Antidepressant Urine NEGATIVE (NEGATIVE)
[2024-04-03 12:55] LABS: Estimated Average Glucose 111 mg/dL; Glycohemoglobin A1C 5.5 % (4.5-6.2)
[2024-04-04 06:08] LABS: HBsAg Screen Negative (Negative); HIV Ab/p24 Ag Screen Non Reactive (Non Reactive)
[2024-04-04 07:09] LABS: Rubella Antibodies, IgG 1.46 index (Immune >0.99)
[2024-04-04 12:08] LABS: Rapid Plasma Reagin, Quant Non Reactive titer (NonRea<1:1)
[2024-04-05 22:07] LABS: HCV Ab Reactive (Non Reactive)
== END 2024-04-03 11:42 | disposition home or self-care (01) ==
LOC: LAB 11:43
PROVIDERS: PCP Family Medicine; Visit Provider Obstetrics & Gynecology
DX: Z34.01 Encounter for supervision of normal first pregnancy, first trimester (principal); Z36.0 Encounter for antenatal screening for chromosomal anomalies; N92.6 Irregular menstruation, unspecified
CPT/HCPCS: 36415; 80307; 80349; 83036; 85025; 86592; 86762; 86803; 86850; 86900; 86901; 87086; 87340; 87389

== ENCOUNTER 2024-05-25 18:42 | Outpatient (REF) | payer BC, SELFPAY ==
--- OUTSIDE RECORDS SUMMARY | 2024-05-25 18:48 | XMS_ITS | CCD ---
Author Organization [facility] Care Team Providers Care Drift Miner Name Role Phone PRIYANKA, CHRISTOPHER Unavailable Unavailable [...] Primary Care Provider CHARLEEN Genao Emergency Provider John Hollis DO Primary Care Provider Enoch Villalobos DO Unavailable [phone] Yaz Hollis DO Primary Care Provider [phone] Surjit Stanton DO Emergency Provider Parminder Florence PA-C Emergency Provider JAGUAR QUINTERO Attending Unavailable RICARDO POWELL Attending Unavailable JOHN HOLLIS Referring Unavailable RICARDO POWELL Attending Unavailable RICARDO POWELL Referring Unavailable Enoch Villalobos DO Unavailable [phone] Glenn Abdullahi APRN Emergency Provider [phone] Yaz Hollis Primary Care Unavailable Glenn Abdullahi Admitting Unavailable Glenn Abdullahi Attending Unavailable Glenn Abdullahi Admitting Unavailable Glenn Abdullahi Attending Unavailable Yaz Hollis Primary Care Unavailable Parminder Powell Admitting Unavailable Parminder Powell Attending Unavailable Yaz Hollis Primary Care Unavailable Surjit Stanton Admitting Unavailable Surjit Stanton Attending Unavailable Yaz Hollis Primary Care Unavailable Yaz Hollis Primary Care Unavailable Vianney Genao Admitting Unavailable Vianney Genao Attending Unavailable Allergies Allergy Classification Reported Allergen(s) Allergy Type Date of Onset Reaction(s) Facility (1 source) black walnut pollen extract Drug Allergy [facility] Repository (6 sources) Codeine Drug Allergy 04-28-19 21 [facility] (6 sources) Penicillins Drug allergy (disorder) 04-28-19 21 [facility] Repository (1 source) Plasmin Drug Allergy 10-17-19 22 [facility] Repository (1 source) Sulfamethoxazole / Trimethoprim Drug Allergy 10-17-19 22 [facility] Repository (1 source) Sulfonamides (Antibiotic) Drug allergy (disorder) 10-17-19 22 [facility] Repository (14 sources) Codeine Drug Allergy 04-07-19 24 hives, Unknown [facility] Work Phone: (9 sources) Penicillin Drug Allergy [facility] Other (9 sources) Sulfamethoxazole / Trimethoprim Drug Allergy [facility] Other (6 sources) Sulfamethoxazole; Translations: [sulfamethoxazole] Drug Allergy 04-28-19 21 Swelling of Lip/Tongue/Thr oat, Swelling of Lip/Tongue/Thr oat, [facility] (6 sources) Trimethoprim; Translations: [trimethoprim] Drug Allergy 04-28-19 21 Swelling of Lip/Tongue/Thr oat, Swelling of Lip/Tongue/Thr oat, [facility] (5 sources) penicillAMINE Drug Allergy 04-07-19 24 Unknown [facility] Healthcare (5 sources) Penicillin G Drug Allergy 04-12-19 24 [facility] Work Phone: (5 sources) Sulfamethoxazole / Trimethoprim Drug Allergy 04-12-19 24 [facility] (5 sources) Sulfonamides (Antibiotic) Drug Allergy 04-07-19 24 Unknown [facility] (5 sources) SUMAtriptan Drug Allergy 04-07-19 24 [facility] (1 source) Codeine Drug Allergy 05-19-19 25 [facility] Repository (1 source) Penicillins Drug allergy (disorder) 05-19-19 [facility] Repository Medications Current Medications Medication Drug Class(es) Dates Sig (Normalized) Sig (Original) busPIRone hydrochloride 5 mg oral tablet (6 sources) Start: 05-25-2022 take 1 tablet by mouth every twelve hours busPIRone HCl 5 MG 1 tablet Orally Twice a day for 30 days May, Active citalopram 20 mg oral tablet (12 sources) Serotonin Reuptake Inhibitor Start: 04-12-2023 take [...] Active cyclobenzaprine hydrochloride 10 mg oral tablet (9 sources) Muscle Relaxant Start: 10-05-2023 take 1 tablet by mouth three times daily as needed for muscle spasms Cyclobenzaprine 10 mg tablet Active 10 MG PO Three times daily as needed for muscle spasm November 24, 2023 11:00pm escitalopram 10 mg oral tablet (1 source) Serotonin Reuptake Inhibitor Start: 05-07-2022 take 1 tablet by mouth every twenty-four hours Escitalopram Oxalate 10 MG 1 tablet Orally Once a day for 30 day(s) Apr, Active Norgestimate-Ethinyl Estradiol (20 sources) Progestin, Estrogen Start: 12-09-2023 take 1 tablet by mouth once daily Norgestimate-Ethinyl Estradiol (Sprintec (28)) 0.25-35 mg-mcg tablet Active 0 .ROUTE .COMPLEX 84 December 09, 2023 10:32am TAKE 1 TABLET BY MOUTH DAILY Start: 03-16-2023 take 1 tablet by deshawn th in the morning Sprintec 28 0.25-35 MG-MCG [...] 1 TAB PO Daily April 28, 2020 12:00am June 14, 2023 10:44am Start: 04-28-2020 End: 06-14-2023 take 1 tablet by mouth once daily Norgestimate-Ethinyl Estradiol (Sprintec (28)) 0.25-35 mg-mcg tablet Discontinued 1 TAB PO Daily April 28, 2020 1:00am June 14, 2023 11:44am Start: 04-28-2020 take 1 tablet by deshawn th once daily Norgestimate-Ethinyl Estradiol (Sprintec (28)) 0.25-35 mg-mcg tablet Active 1 TAB PO Daily April 28, 2020 1:00am fluconazole 50 mg oral tablet (1 source) Azole Antifungal Start: 12-02-2022 Fluconazole 50 MG 1 tablet Orally once, can repeat dose in 2-3 days if symptoms are persisting for 2 days Nov, Active fluticasone propionate 0.05 mg/actuat metered dose nasal spray (5 sources) Corticosteroid Start: 06-16-2023 take 1-2 spray(s) nasal route once daily fluticasone (Flonase) 50 MCG/ACT nasal spray Indications: Strep pharyngitis Administer 1-2 sprays into each nostril Daily Shake gently. Before first use, prime pump. After use, clean tip and replace cap 16 g 3 06/16/2023 Active methylPREDNISolone 4 mg oral tablet (4 sources) Corticosteroid Start: 11-25-2023 take 1 tablet by mouth once Methylprednisolone (Medrol (Jose Ramon)) 4 mg tablets,dose pack Active 0 PO .COMPLEX November 24, 2023 11:00pm orally per package directions metoclopramide 10 mg oral tablet (5 sources) Dopamine-2 Receptor Antagonist Start: 03-10-2024 End: 04-09-2024 [...] as needed for nausea.. 90 tablet 03/10/2024 Active ondansetron 4 mg disintegrating oral tablet (18 sources) Serotonin-3 Receptor Antagonist Start: 05-16-2024 take 1 tablet by mouth every eight hours as needed for nausea and vomiting Ondansetron 4 mg tablet,disintegrating Active 4 MG PO Every 8 hours as needed for nausea and vomiting May 16, 2024 12:54pm Start: 04-05-2024 take 1 tablet by deshawn th four times daily as needed for nausea and vomiting Ondansetron 4 mg tablet,disintegrating Active 4 MG PO Four times daily as needed for nausea and vomiting April 05, 2024 12:00am Start: 03-04-2024 take 1 tablet by dehsawn th every eight hours as needed for nausea and vomiting Ondansetron Hcl 4 mg tablet Active 4 MG PO Every 8 hours as needed for nausea and vomiting 03 08March 04, 2024 12:00am Start: 06-29-2019 End: 07-01-2019 Ondansetron Hcl (Zofran) 4 m g Tablet Discontinued 4 MG PO every 6 to 8 hours as needed for Nausea June 28, 2019 11:00pm July 01, 2019 11:44am take 1 tablet by deshawn th every eight hours as needed for nausea and vomiting ondansetron ODT (Zofran-ODT) 4 MG disintegrating tablet Take 4 mg by mouth every 8 (eight) hours if needed for nausea or vomiting Active promethazine hydrochloride 12.5 mg oral tablet (5 sources) Phenothiazine Start: 03-08-2024 End: 06-06-2024 take 1 [...] 06/06/2024 Active valACYclovir 500 mg oral tablet (5 sources) Herpesvirus Nucleoside Analog DNA Polymerase Inhibitor, Herpes [...] Sig (Original) acetaminophen 500 mg oral tablet (5 sources) Start: 07-01-2019 End: 04-28-2020 take 2 tablets by mouth every six hours as needed for pain Acetaminophen 500 mg Tablet Discontinued 1000 MG PO Q6H as needed for Fever Or Mild Pain (1 - 3) June 30, 2019 11:00pm April 28, 2020 3:44pm Start: 07-01-2019 End: 04-28-2020 take 1000 mg by mouth every six hours Acetaminophen Discontinued 1000 MG PO Q6H July 01, 2019 12:00am April 28, 2020 4:44pm ciprofloxacin 250 mg oral tablet (5 sources) Quinolone Antimicrobial Start: 06-05-2017 End: 07-01-2018 take 1 tablet by mouth every twelve hours Ciprofloxacin Hcl (Cipro) 250 mg Tablet Discontinued 250 MG PO Q12H June 04, 2017 11:00pm July 01, 2018 6:28pm docusate sodium 100 mg oral capsule (5 sources) Start: 07-01-2019 End: 04-28-2020 take 1 capsule by mouth once daily at bedtime as needed for constipation Docusate Sodium (Dok) 100 mg Capsule Discontinued 100 MG PO Daily at bedtime as needed for Constipation June 30, 2019 11:00pm April 28, 2020 3:44pm doxycycline hyclate 100 mg oral capsule (5 sources) Tetracycline-class Drug Start: 05-09-2017 End: 06-05-2017 take 1 capsule by mouth twice daily Doxycycline Hyclate 100 mg capsule Discontinued 100 MG PO Twice daily 08 01May 09, 2017 12:00am June 05, 2017 12:56pm ibuprofen 600 mg oral tablet (5 sources) Nonsteroidal Anti-inflammatory Drug Start: 07-01-2019 End: 04-28-2020 take 1 tablet by mouth every six hours Ibuprofen 600 mg Tablet Discontinued 600 MG PO Every 6 hours June 30, 2019 11:00pm April 28, 2020 3:44pm metroNIDAZOLE 500 mg oral tablet (5 sources) Nitroimidazole Antimicrobial Start: 05-09-2017 End: 05-16-2017 take 1 tablet by mouth twice daily Metronidazole (Flagyl) 500 mg tablet Discontinued 500 MG PO Twice daily 14 7 May 09, 2017 12:00am May 15, 2017 12:00am May 16, 2017 12:07am Eq-Dz-Ajjc-Fa-Herb al Cmplx#190 (Vitamin D3 Complete) 18 mg iron-800 mcg-150 mg Tablet (5 sources) Start: 05-09-2017 End: 06-05-2017 Tm-Qa-Zlal-Fa-Her bal Cmplx#190 (Vitamin D3 Complete) 18 mg iron-800 mcg-150 mg Tablet Discontinued TABLET May 09, 2017 12:00am June 05, 2017 12:56pm Start: 05-09-2017 End: 06-05-2017 Pt-Gg-Mlnw-Fa-Herbal Cmplx#1 90 (Vitamin D3 Complete) 18 mg iron-800 mcg-150 mg Tablet Discontinued TABLET May 09, 2017 1:00am June 05, 2017 1:56pm nitrofurantoin, macrocrystals 50 mg oral capsule (5 sources) Nitrofuran Antibacterial Start: 05-09-2017 End: 06-05-2017 take 1 capsule by mouth every six hours Nitrofurantoin Macrocrystal 50 mg Capsule Discontinued 50 MG PO Q6H May 09, 2017 12:00am June 05, 2017 12:56pm Norgestimate-Ethinyl Estradiol (Sprintec (28)) 0.25-35 mg-mcg tablet (4 sources) Start: 06-14-2023 End: 12-09-2023 take 1 tablet by mouth once daily Norgestimate-Ethiny l Estradiol (Sprintec (28)) 0.25-35 mg-mcg tablet Discontinued 1 TAB PO Daily June 14, 2023 10:44am December 09, 2023 10:33am Start: 06-14-2023 take 1 tablet by deshawn once daily Norgestimate-Ethinyl Estradiol (Sprintec (28)) 0.25-35 mg-mcg tablet Active 1 TAB PO Daily June 14, 2023 11:44am phenazopyridine hydrochloride 200 mg oral tablet (5 sources) Start: 05-09-2017 End: 06-05-2017 take 1 tablet by mouth three times daily as needed for pain Phenazopyridine (Pyridium) 200 mg tablet Discontinued 200 MG PO Three times daily as needed for pain 10 May 09, 2017 12:00am June 05, 2017 12:56pm administer with a full glass of water with each meal Problems Active Problems Problem Classification Problem Date Documented Da te Episodic/Chronic Anxiety disorders (14 sources) Generalized anxiety disorder; Translations: [Generalized anxiety disorder] Chronic Contraceptive and procreative management (5 sources) Encounter for other contraceptive management; Translations: [Patient encounter status] Episodic Esophageal disorders (5 sources) Gastroesophageal reflux disease; Translations: [Gastro-esophageal reflux disease without esophagitis] Onset: 4 04-07-2023 Chronic Fluid and electrolyte disorders (3 sources) Acute hypokalemia; Translations: [Hypokalemia] 03-12-2024 Episodic Headache; including migraine (8 sources) Tension-type headache; Translations: [Tension-type headache, unspecified, not intractable] Onset: 4 Chronic Headache; including migraine (4 sources) Headache; Translations: [Headache] 11-25-2023 Episodic Headache; including [...] Episodic Inflammatory diseases of female pelvic organs (5 sources) Bacterial vaginosis; Translations: [Acute vaginitis] 05-09-2017 Episodic Comment on above: Problem List clean-u p per request of Phys. EHR Cmte Malaise and fatigue (8 sources) Fatigue; Translations: [Chronic fatigue, unspecified] Chronic Menstrual disorders (6 sources) Missed period; Translations: [Irregular menstruation, unspecified] Onset: 4 03-24-2024 Chronic Mood disorders (5 sources) Moderately severe depression; Translations: [Moderately severe depression] Onset: 4 04-07-2023 Chronic Nausea and vomiting (1 source) Nausea with vomiting, unspecified; Translations: [Nausea with vomiting, unspecified] Onset: 4 Episodic Open wounds of head; neck; and trunk (5 sources) Laceration - injury; Translations: [Laceration] 04-28-2020 Episodic Comment on above: Problem List clean-u p per request of Phys. EHR Cmte Other complications of (5 sources) Vomiting of , unspecified; Translations: [Unspecified vomiting of , unspecified as to episode of care or not applicable] Onset: 5 03-24-2024 Episodic Other complications of (5 sources) Hyperemesis gravidarum; Translations: [Mild hyperemesis gravidarum] 04-05-2024 Episodic Other congenital anomalies (5 sources) Birthmark; Translations: [Congenital non-neoplastic nevus] Onset: 4 04-07-2023 Chronic Other gastrointestinal disorders (12 sources) Constipation; Translations: [Constipation, unspecified] Onset: 4 06-05-2017 Episodic Comment on above: Problem List clean-u p per request of Phys. EHR Cmte Other gastrointestinal disorders (1 source) Constipation, unspecified [...] deficit Chronic Other and delivery including normal (13 sources) Encounter for routine follow-up; Translations: [Single [...] [8 weeks gestation of ] 03-24-2024 Episodic Residual codes; unclassified (2 sources) Gestation period, 13 weeks; Translations: [13 weeks gestation of ] 04-24-2024 Episodic Spontaneous (5 sources) with abortive outcome; Translations: [Incomplete spontaneous without complication] 07-05-2018 Episodic Comment on above: Problem List clean-u p per request of Phys. EHR Cmte Thyroid disorders (5 sources) Goiter; Translations: [Nontoxic goiter, unspecified] Onset: 4 04-07-2023 Chronic Unclassified (1 source) Unknown / UNK(Unknown) Onset: 8 Unclassified (1 source) CONTACT W/AND (SUSP) EXPOS COVID-19; Translations: [CONTACT W/AND (SUSP) EXPOS COVID-19] Onset: 2 Urinary tract infections (5 sources) Urinary tract infectious disease; Translations: [Urinary tract infection, site not specified] 05-09-2017 Episodic Comment on above: Problem List clean-u p per request of Phys. EHR Cmte Viral infection (3 sources) Disease due to Rhinovirus; Translations: [Other viral infections of unspecified site] 04-05-2024 Episodic Past or Other Problems Problem Classification Problem Date Documented Da te Episodic/Chronic Diabetes mellitus without complication (4 sources) Hyperglycemia, unspecified; Translations: [HYPERGLYCEMIA UNSPECIFIED] Onset: 07-21-2021 Episodic Polyhydramnios and other problems of amniotic [...] Spondylosis; intervertebral disc disorders; other back problems (5 sources) Cervical radiculopathy; Translations: [Radiculopathy, cervical region] Onset: 11-25-2023 11-25-2023 Episodic Unclassified (1 source) Z02.83 F19.21 Z13.6 N39.0 Onset: 04-21-2017 Unclassified (1 source) Vaginal ab B37.31 Results Test Name Value Interpretation Reference Range Facility Alanine aminotransferase [En zymatic activity/volume] in Serum or PlasmaOrdered By: Glenn Abdullahi on 05-19-2024 ALT [Catalytic activity/Vol] Alanine aminotransferase [Enzymatic activity/volume] in Serum or Plasma 7-52 [facility] Albumin [Mass/volume] in Ser um or Plasma by Bromocresol green (BCG) dye binding methoOrdered By: Glenn Abdullahi on 05-19-2024 Albumin BCG dye [Mass/Vol] Albumin [Mass/volume] in Serum or Plasma by Bromocresol green (BCG) dye binding metho 3.5-5.7 [facility] Alkaline phosphatase [Enzyma tic activity/volume] in Serum or PlasmaOrdered By: Glenn Abdullahi on 05-19-2024 ALP [Catalytic activity/Vol] Alkaline phosphatase [Enzymatic activity/volume] in Serum or Plasma 34-104 [facility] Amphetamine Screen Ql (U)Ord ered By: Glenn Abdullahi on 05-19-2024 Amphetamines Ql (U) Amphetamines screen Negativ e [facility] Appearance of UrineOrdered B y: Glenn Abdullahi on 05-19-2024 Appearance (U) Urine appearance Abnormal Clear [facility] Aspartate aminotransferase [ Enzymatic activity/volume] in Serum or PlasmaOrdered By: Glenn Abdullahi on 05-19-2024 AST [Catalytic activity/Vol] Aspartate aminotransferase [Enzymatic activity/volume] in Serum or Plasma Low 13-39 [facility] Bacteria [Presence] in Urine by AutomatedOrdered By: Glenn Abdullahi on 05-19-2024 Bacteria Auto Ql (U) Bacteria [Presence] in Urine by Automated None Seen [facility] Barbiturates [Presence] in U rine by Screen methodOrdered By: Glenn Abdullahi on 05-19-2024 Barbiturates Screen Ql (U) Barbiturates [Presence] in Urine by Screen method Negative [facility] Basophils Auto (Bld) [#/Vol] Ordered By: Glenn Abdullahi on 05-19-2024 Basophils (Bld) [#/Vol] Automated basophil count 0.0-0.2 [facility] Basophils/100 WBC Auto (Bld) Ordered By: Glenn Abdullahi on 05-19-2024 Basophils/100 WBC (Bld) Automated basophil % . [facility] Benzodiazepines Screen Ql (U )Ordered By: Glenn Abdullahi on 05-19-2024 Benzodiazepines Ql (U) Benzodiazepines [Presence] in Urine by Screen method Negative [facility] Benzoylecgonine [Presence] i n Urine by Screen methodOrdered By: Glenn Abdullahi on 05-19-2024 Benzoylecgonine Screen Ql (U) Benzoylecgonine [Presence] in Urine by Screen method Negative [facility] Bilirubin Test strip Ql (U)O rdered By: Glenn Abdullahi on 05-19-2024 Bilirubin Ql (U) Bilirubin.total [Pre sence] in Urine by Test strip Negative [facility] Bilirubin.direct [Mass/volum e] in Serum or PlasmaOrdered By: Glenn Abdullahi on 05-19-2024 Bilirubin.direct [Mass/Vol] Bilirubin.direct [Mass/volume] in Serum or Plasma Low 0.03-0.18 [facility] Comment on above: If the DBIL is less than 0.1, IBIL is not able to becalculated. Bilirubin.total [Mass/volume ] in Serum or PlasmaOrdered By: Glenn Abdullahi on 05-19-2024 Bilirubin [Mass/Vol] Bilirubin.total [Mass/volume] in Serum or Plasma 0.3-1.0 [facility] Calcium [Mass/volume] in Ser um or PlasmaOrdered By: Glenn Abdullahi on 05-19-2024 Calcium [Mass/Vol] Calcium [Mass/volume ] in Serum or Plasma 8.6-10.3 [facility] Cannabinoids [Presence] in U rine by Screen methodOrdered By: Glenn Abdullahi on 05-19-2024 Cannabinoids Screen Ql (U) Cannabinoids [Presence] in Urine by Screen method High Negative [facility] Comment on above: These are unconfirme d results and should not be used for legal purposes. Drug Cut-Off Concentration: AMPH 1000 ng/mL DENIS 200 ng/mL DIOR 200 ng/mL COCM 300 ng/mL OP 300 ng/mL PCP 25 ng/mL THC 20 ng/mL Carbon dioxide, total [Moles /volume] in Serum or PlasmaOrdered By: Glenn Abdullahi on 05-19-2024 CO2 [Moles/Vol] Carbon dioxide, tota l [Moles/volume] in Serum or Plasma Low 21.0-31.0 [facility] Chloride [Moles/volume] in S mayte or PlasmaOrdered By: Glenn Abdullahi on 05-19-2024 Chloride [Moles/Vol] Chloride [Moles/vol ume] in Serum or Plasma 98-107 [facility] Choriogonadotropin.beta subu nit [Units/volume] in Serum or PlasmaOrdered By: Glenn Abdullahi on 05-19-2024 HCG.beta subunit Qn Choriogonadotropin.b eta subunit [Units/volume] in Serum or Plasma [facility] Comment on above: Approximate Approxim ate hCG Gestational Age Range (mIU/ml) (weeks)0.2-1 5-50 1-2 50-500 2-3 100-5,000 3-4 500-10,000 4-5 1,000-50,000 5-6 10,000-100,000 6-8 15,000-200,000 8-12 10,000-100,000 Color Auto (U)Ordered By: Toro Abdullahi on 05-19-2024 Color (U) Color of Urine by Auto Abnormal Yellow [facility] Complete Blood Count Auto Di ffon 05-19-2024 Basophils (Bld) [#/Vol] 0.1 10*3/uL Normal 0.0-0.2 [facility] Comment on above: Result Comment: PERF ORMED BY: [facility] [address] [place] [address] PATHOLOGIST PRO[employer] MANAGEMENT IT SPECIALIST SARAH ANDREWS M.D. Performed By: #### R SHAKIRA PANEL UPP., BIOFIRECOVNOTDE #### [address] Basophils/100 WBC (Bld) 1.4 % Normal . [facility] Comment on above: Performed By: #### R SHAKIRA PANEL UPP., BIOFIRECOVNOTDE #### [address] Eosinophils (Bld) [#/Vol] 0.0 10*3/uL Normal 0.0-0.45 [facility] Comment on above: Performed By: #### R SHAKIRA PANEL UPP., BIOFIRECOVNOTDE #### [address] Eosinophils/100 WBC (Bld) 0.3 % Normal . [facility] Comment on above: Performed By: #### R SHAKIRA PANEL UPP., BIOFIRECOVNOTDE #### [address] Erythrocyte distribution width (RBC) [Ratio] 13.7 % Normal 11.9-15.3 [facility] Comment on above: Performed By: #### R SHAKIRA PANEL UPP., BIOFIRECOVNOTDE #### [address] Hematocrit (Bld) [Volume fraction] 33.1 % Low 34.0-46.4 [facility] Comment on above: Performed By: #### R SHAKIRA PANEL UPP., BIOFIRECOVNOTDE #### [address] Hemoglobin (Bld) [Mass/Vol] 11.6 g/dL Low 11.8-15.4 [facility] Comment on above: Performed By: #### R SHAKIAR PANEL UPP., BIOFIRECOVNOTDE #### [address] Lymphocytes (Bld) [#/Vol] 1.3 10*3/uL Normal 1.00-4.8 [facility] Comment on above: Performed By: #### R SHAKIRA PANEL UPP., BIOFIRECOVNOTDE #### [address] Lymphocytes/100 WBC (Bld) 14.1 % Normal . [facility] Comment on above: Performed By: #### R SHAKIRA PANEL UPP., BIOFIRECOVNOTDE #### [address] MCH (RBC) [Entitic mass] 30.0 pg Normal 24.7-34.3 [facility] Comment on above: Performed By: #### R SHAKIRA PANEL UPP., BIOFIRECOVNOTDE #### [address] MCV (RBC) [Entitic vol] 85.6 fL Normal 80-100 [facility] Comment on above: Performed By: #### R SHAKIRA PANEL UPP., BIOFIRECOVNOTDE #### [address] Mean Corpuscular HGB Conc 35.0 g/dL Normal 32.0-35.0 [facility] Comment on above: Performed By: #### R SHAKIRA PANEL UPP., BIOFIRECOVNOTDE #### [address] Monocytes (Bld) [#/Vol] 0.4 10*3/uL Normal 0.0-0.8 [facility] Comment on above: Performed By: #### R SHAIKRA PANEL UPP., BIOFIRECOVNOTDE #### [address] Monocytes/100 WBC (Bld) 15.92 % Normal 0.00-20.00 [facility] Comment on above: Performed By: #### R SHAKIRA PANEL UPP., BIOFIRECOVNOTDE #### [address] Monocytes/100 WBC (Bld) 4.2 % Normal . [facility] Comment on above: Performed By: #### R SHAKIRA PANEL UPP., BIOFIRECOVNOTDE #### [address] Neutrophils (Bld) [#/Vol] 7.1 10*3/uL Normal 1.8-7.7 [facility] Comment on above: Performed By: #### R SHAKIRA PANEL UPP., BIOFIRECOVNOTDE #### [address] Neutrophils/100 WBC (Bld) 80.0 % Normal . [facility] Comment on above: Performed By: #### R SHAKIRA PANEL UPP., BIOFIRECOVNOTDE #### [address] NRBC% 0.1 /100{WBC} Normal 0-0.5 [facility] Comment on above: Performed By: #### R SHAKIRA PANEL UPP., BIOFIRECOVNOTDE #### [address] Platelet mean volume (Bld) [Entitic vol] 11.0 fL High 6.3-10.7 [facility] Comment on above: Performed By: #### R SHAKIRA PANEL UPP., BIOFIRECOVNOTDE #### [place] [address] [place] Platelets (Bld) [#/Vol] 161 10*3/uL Normal 150-450 [facility] Comment on above: Performed By: #### R SHAKIRA PANEL UPP., BIOFIRECOVNOTDE #### [place] [address] [place] RBC (Bld) [#/Vol] 3.87 10*6/uL Normal 3.60-5.00 [facility] Comment on above: Performed By: #### R SHAKIRA PANEL UPP., BIOFIRECOVNOTDE #### [address] WBC (Bld) [#/Vol] 8.9 10*3/uL Normal 3.8-11.6 [facility] Comment on above: Performed By: #### R SHAKIRA PANEL UPP., BIOFIRECOVNOTDE #### [address] [facility] blanquita 05-19-2024 Albumin [Mass/Vol] 3.8 g/dL Normal 3.5-5.7 [facility] Comment on above: Performed By: #### R SHAKIRA PANEL UPP., BIOFIRECOVNOTDE #### [address] Albumin/Globulin [Mass ratio] 1.3 {ratio} Normal [facility] Comment on above: Performed By: #### R SHAKIRA PANEL UPP., BIOFIRECOVNOTDE #### [address] ALP [Catalytic activity/Vol] 38 U/L Normal 34-104 [facility] Comment on above: Performed By: #### R SHAKIRA PANEL UPP., BIOFIRECOVNOTDE #### [address] ALT [Catalytic activity/Vol] 8 U/L Normal 7-52 [facility] Comment on above: Performed By: #### R SHAKIRA PANEL UPP., BIOFIRECOVNOTDE #### [address] Anion gap [Moles/Vol] 13.4 mmol/L Normal 6.0-15.0 [facility] Comment on above: Performed By: #### R SHAKIRA PANEL UPP., BIOFIRECOVNOTDE #### [address] AST [Catalytic activity/Vol] 10 U/L Low 13-39 [facility] Comment on above: Performed By: #### R SHAKIRA PANEL UPP., BIOFIRECOVNOTDE #### [address] Bilirubin [Mass/Vol] 0.3 mg/dL Normal 0.3-1.0 [facility] Comment on above: Performed By: #### R SHAKIRA PANEL UPP., BIOFIRECOVNOTDE #### [address] Calcium [Mass/Vol] 9.3 mg/dL Normal 8.6-10.3 [facility] Comment on above: Performed By: #### R SHAKIRA PANEL UPP., BIOFIRECOVNOTDE #### [facility] [address] Chloride [Moles/Vol] 107 mmol/L Normal 98-107 [facility] Comment on above: Performed By: #### R SHAKIRA PANEL UPP., BIOFIRECOVNOTDE #### [address] CO2 [Moles/Vol] 18.9 mmol/L Low 21.0-31.0 [facility] Comment on above: Performed By: #### R SHAKIRA PANEL UPP., BIOFIRECOVNOTDE #### [address] Creatinine [Mass/Vol] 0.53 mg/dL Low 0.60-1.20 [facility] Comment on above: Performed By: #### R SHAKIRA PANEL UPP., BIOFIRECOVNOTDE #### [place] [address] [place] Creatinine Clr Calc Pharm[facility] 143.53 Normal [facility] Comment on above: Performed By: #### R SHAKIRA PANEL UPP., BIOFIRECOVNOTDE #### [address] GFR/1.73 sq M.predicted MDRD (S/P/Bld) [Vol rate/Area] mL/min/{1.73_m2} Normal [facility] Comment on above: Performed By: #### R SHAKIRA PANEL UPP., BIOFIRECOVNOTDE #### [place] [address] [place] Globulin (S) [Mass/Vol] 2.9 g/dL Normal [facility] Comment on above: Performed By: #### R SHAKIRA PANEL UPP., BIOFIRECOVNOTDE #### [place] [address] [place] Glucose [Mass/Vol] 135 mg/dL High 70-100 [facility] Comment on above: Result Comment: [place] Glucose Reference Range is dependent on time and content of last meal. Glucose of more than 200 mg/dL in a nonstressed, ambulatory subject supports the diagnosis of Diabetes Mellitus. ADA recommended reference range Performed By: #### R SHAKIRA PANEL UPP., BIOFIRECOVNOTDE #### [address] Potassium [Moles/Vol] 3.3 mmol/L Low 3.5-5.1 [facility] Comment on above: Performed By: #### R SHAKIRA PANEL UPP., BIOFIRECOVNOTDE #### [address] Protein [Mass/Vol] 6.7 g/dL Normal 6.4-8.9 [facility] Comment on above: Performed By: #### R SHAKIRA PANEL UPP., BIOFIRECOVNOTDE #### [address] Sodium [Moles/Vol] 136 mmol/L Normal 136-145 [facility] Comment on above: Performed By: #### R SHAKIRA PANEL UPP., BIOFIRECOVNOTDE #### [address] Urea nitrogen [Mass/Vol] 8 mg/dL Normal 7-25 [facility] Comment on above: Performed By: #### R SHAKIRA PANEL UPP., BIOFIRECOVNOTDE #### [address] Creatinine [Mass/volume] in Serum or PlasmaOrdered By: Glenn Abdullahi on 05-19-2024 Creatinine [Mass/Vol] Creatinine [Mass/v olume] in Serum or Plasma Low 0.60-1.20 [facility] Dipstick and Microscopicon 0 05-19-2024 Appearance (U) Turbid Critically abnormal Clear [facility] Comment on above: Order Comment: Name Collection Type:: Clean-Voided Midstream Performed By: #### H EPATIC, SCAN CBC, LIPASE, HCGQNT, BMP #### [facility] [address] [place] [address] [place] Bacteria,Urine None Seen Normal None Seen [facility] Comment on above: Order Comment: Name Collection Type:: Clean-Voided Midstream Performed By: #### H EPATIC, SCAN CBC, LIPASE, HCGQNT, BMP #### [facility] [address] [place] [address] [place] Bilirubin,Urine Negative Normal Negative [facility] Comment on above: Order Comment: Name Collection Type:: Clean-Voided Midstream Performed By: #### H EPATIC, SCAN CBC, LIPASE, HCGQNT, BMP #### [facility] [address] Color (U) [place] Critically abnormal Yellow [facility] Comment on above: Order Comment: Name Collection Type:: Clean-Voided Midstream Performed By: #### H EPATIC, SCAN CBC, LIPASE, HCGQNT, BMP #### [address] Glucose Ql (U) Normal Normal Normal [facility] Comment on above: Order Comment: Name Collection Type:: Clean-Voided Midstream Performed By: #### H EPATIC, SCAN CBC, LIPASE, HCGQNT, BMP #### [place] [address] [place] Hyaline Casts,Urine None Normal 0-8 [facility] Comment on above: Order Comment: Name Collection Type:: Clean-Voided Midstream Performed By: #### H EPATIC, SCAN CBC, LIPASE, HCGQNT, BMP #### [facility] [address] [place] [address] [place] Ketones Ql (U) 2+ High Negative [facility] Comment on above: Order Comment: Name Collection Type:: Clean-Voided Midstream Performed By: #### H EPATIC, SCAN CBC, LIPASE, HCGQNT, BMP #### [facility] [address] [place] [address] Leukocyte esterase Test strip Ql (U) Negative Normal Negative [facility] Comment on above: Order Comment: Name Collection Type:: Clean-Voided Midstream Performed By: #### H EPATIC, SCAN CBC, LIPASE, HCGQNT, BMP #### [place] [address] [place] Mucus,Urine Rare Normal [facility] Comment on above: Order Comment: Name Collection Type:: Clean-Voided Midstream Result Comment: PERF ORMED BY: [place] [address] PATHOLOGIST PRO[employer] MANAGEMENT IT SPECIALIST SARAH ANDREWS M.D. Performed By: #### H EPATIC, SCAN CBC, LIPASE, HCGQNT, BMP #### [place] [address] [place] Nitrite,Urine Negative Normal Negative [facility] Comment on above: Order Comment: Name Collection Type:: Clean-Voided Midstream Performed By: #### H EPATIC, SCAN CBC, LIPASE, HCGQNT, BMP #### [place] [address] [place] Occult Blood,Urine Negative Normal Negative [facility] Comment on above: Order Comment: Name Collection Type:: Clean-Voided Midstream Result Comment: PERF ORMED BY: [place] [address] PATHOLOGIST PROJECT MANAGEMENT IT SPECIALIST SARAH ANDREWS M.D. Performed By: #### H EPATIC, SCAN CBC, LIPASE, HCGQNT, BMP #### [address] pH (U) 8.0 [pH] Normal 5.0-9.0 [facility] Comment on above: Order Comment: Name Collection Type:: Clean-Voided Midstream Performed By: #### H EPATIC, SCAN CBC, LIPASE, HCGQNT, BMP #### [place] [address] [place] Protein,Urine Negative Normal Negative [facility] Comment on above: Order Comment: Name Collection Type:: Clean-Voided Midstream Performed By: #### H EPATIC, SCAN CBC, LIPASE, HCGQNT, BMP #### [facility] [address] [place] [address] RBC,Urine 3-4 Normal 0-4 [facility] Comment on above: Order Comment: Name Collection Type:: Clean-Voided Midstream Performed By: #### H EPATIC, SCAN CBC, LIPASE, HCGQNT, BMP #### [facility] [address] [place] [address] Specificy [place],Urine 1.014 Normal 1.001-1.03 0 [facility] Comment on above: Order Comment: Name Collection Type:: Clean-Voided Midstream Performed By: #### H EPATIC, SCAN CBC, LIPASE, HCGQNT, BMP #### [facility] [address] [place] [address] Squamous Epithelial Cell,Urine 1-2 Normal 0-2 [facility] Comment on above: Order Comment: Name Collection Type:: Clean-Voided Midstream Performed By: #### H EPATIC, SCAN CBC, LIPASE, HCGQNT, BMP #### [facility] [address] [place] [address] Urobilinogen,Urine Normal Normal Normal [facility] Comment on above: Order Comment: Name Collection Type:: Clean-Voided Midstream Performed By: #### H EPATIC, SCAN CBC, LIPASE, HCGQNT, BMP #### [facility] [address] [place] [address] WBC,Urine None Seen Normal 0-4 [facility] Comment on above: Order Comment: Name Collection Type:: Clean-Voided Midstream Performed By: #### H EPATIC, SCAN CBC, LIPASE, HCGQNT, BMP #### [facility] [address] [place] [address] Drug Screen,Urineon 05-19-19 25 Amphetamine Screen,Urine Negative Normal Negative [facility] Comment on above: Performed By: #### H EPATIC, SCAN CBC, LIPASE, HCGQNT, BMP #### [facility] [address] [place] [address] Barbiturate Screen,Urine Negative Normal Negative [facility] Comment on above: Performed By: #### H EPATIC, SCAN CBC, LIPASE, HCGQNT, BMP #### [address] Benzodiazepines Screen,Urine Negative Normal Negative [facility] Comment on above: Performed By: #### H EPATIC, SCAN CBC, LIPASE, HCGQNT, BMP #### [address] Cannabinoid Screen,Urine Positive High Negative [facility] Comment on above: Result Comment: Thes e are unconfirmed results and should not be used for legal purposes. Drug Cut-Off Concentration: AMPH 1000 ng/mL DENIS 200 ng/mL DIOR 200 ng/mL COCM 300 ng/mL OP 300 ng/mL PCP 25 ng/mL THC 20 ng/mL PERFORMED BY: [place] [address] PATHOLOGIST PRO[employer] MANAGEMENT IT SPECIALIST SARAH ANDREWS M.D. Performed By: #### H EPATIC, SCAN CBC, LIPASE, HCGQNT, BMP #### [address] Cocaine Screen,Urine Negative Normal Negative [facility] Comment on above: Performed By: #### H EPATIC, SCAN CBC, LIPASE, HCGQNT, BMP #### [address] Opiate Screen,Urine Negative Normal Negative [facility] Comment on above: Performed By: #### H EPATIC, SCAN CBC, LIPASE, HCGQNT, BMP #### [address] Phencyclidine Screen,Urine Negative Normal Negative [facility] Comment on above: Performed By: #### H EPATIC, SCAN CBC, LIPASE, HCGQNT, BMP #### [address] Eosinophils Auto (Bld) [#/Vo l]Ordered By: Glenn Abdullahi on 05-19-2024 Eosinophils (Bld) [#/Vol] Automated eosinophil count 0.0-0.45 [facility] Eosinophils/100 WBC Auto (Bl d)Ordered By: Glenn Abdullahi on 05-19-2024 Eosinophils/100 WBC (Bld) Automated eosinophil % . [facility] Epithelial cells.squamous [# /area] in Urine sediment by Automated countOrdered By: Glenn Abdullahi on 05-19-2024 Epithelial cells.squamous Auto (Urine sed) [#/Area] Epithelial cells.squamous [#/area] in Urine sediment by Automated count 0-2 [facility] Erythrocyte distribution wid th Auto (RBC) [Ratio]Ordered By: Glenn Abdullahi on 05-19-2024 Erythrocyte distribution width (RBC) [Ratio] Erythrocyte distribution width [Ratio] by Automated count 11.9-15.3 [facility] Erythrocytes [#/area] in Uri ne sediment by Automated countOrdered By: Glenn Abdullahi on 05-19-2024 RBC Auto (Urine sed) [#/Area] Erythrocytes [#/area] in Urine sediment by Automated count 0-4 [facility] Globulin Calc (S) [Mass/Vol] Ordered By: Glenn Abdullahi on 05-19-2024 Globulin (S) [Mass/Vol] Serum globulin measurement by calculation (mass/volume) [facility] Glucose [Mass/volume] in Ser um or PlasmaOrdered By: Glenn Abdullahi on 05-19-2024 Glucose [Mass/Vol] Glucose [Mass/volume ] in Serum or Plasma High 70-100 [facility] Comment on above: ADA recommended refe rence rangeRandom Glucose Reference Range is dependent on time and content of last meal. Glucose of more than 200 mg/dL in a nonstressed, ambulatory subject supports the diagnosis of Diabetes Mellitus. Glucose [Mass/volume] in Uri ne by Test stripOrdered By: Glenn Abdullaih on 05-19-2024 Glucose Test strip (U) [Mass/Vol] Glucose [Mass/volume] in Urine by Test strip Normal [facility] HCG,Quantitativeon HCG,Quantitative 50882.00 m[iU]/mL Normal T [facility] Comment on above: Result Comment: Appr oximate Approximate hCG Gestational Age Range (mIU/ml) (weeks) 0.2-1 5-50 1-2 50-500 2-3 100-5,000 3-4 500-10,000 4-5 1,000-50,000 5-6 10,000-100,000 6-8 15,000-200,000 8-12 10,000-100,000 PERFORMED BY: [place] [address] PATHOLOGIST PROJECT MANAGEMENT IT SPECIALIST SARAH ANDREWS M.D. Performed By: #### R SHAKIRA PANEL UPP., BIOFIRECOVNOTDE #### [address] Hematocrit Auto (Bld) [Volum e fraction]Ordered By: Glenn Abdullahi on 05-19-2024 Hematocrit (Bld) [Volume fraction] Hematocrit [Volume Fraction] of Blood by Automated count Low 34.0-46.4 [facility] Hemoglobin Test strip Ql (U) Ordered By: Glenn Abdullahi on 05-19-2024 Hemoglobin Ql (U) Hemoglobin [Presence ] in Urine by Test strip Negative [facility] Hemoglobin [Mass/volume] in BloodOrdered By: Glenn Abdullahi on 05-19-2024 Hemoglobin (Bld) [Mass/Vol] Hemoglobin [Mass/volume] in Blood Low 11.8-15.4 [facility] Hepatic Panelon 05-19-2024 Bilirubin,Indirect 0.3 mg/dL Normal [facility] Comment on above: Performed By: #### R SHAKIRA PANEL UPP., BIOFIRECOVNOTDE #### [address] Bilirubin.indirect [Mass/Vol] 0.00 mg/dL Low 0.03-0.18 [facility] Comment on above: Result Comment: If t he DBIL is less than 0.1, IBIL is not able to be calculated. Performed By: #### R SHAIKRA PANEL UPP., BIOFIRECOVNOTDE #### [address] Hyaline casts [#/area] in Ur ine sediment by Automated countOrdered By: Glenn Abdullahi on 05-19-2024 Hyaline casts Auto (Urine sed) [#/Area] Hyaline casts [#/area] in Urine sediment by Automated count 0-8 [facility] Ketones Test strip Ql (U)Ord ered By: Glenn Abdullahi on 05-19-2024 Ketones Ql (U) Ketones [Presence] i n Urine by Test strip High Negative [facility] Leukocyte esterase [Presence ] in Urine by Test stripOrdered By: Glenn Abdullahi on 05-19-2024 Leukocyte esterase Test strip Ql (U) Leukocyte esterase [Presence] in Urine by Test strip Negative [facility] Leukocytes [#/area] in Urine sediment by Automated countOrdered By: Glenn Abdullahi on 05-19-2024 WBC Auto (Urine sed) [#/Area] Leukocytes [#/area] in Urine sediment by Automated count 0-4 [facility] Leukocytes [#/volume] correc rossy for nucleated erythrocytes in Blood by Automated counOrdered By: Glenn Abdullahi on 05-19-2024 WBC corrected for nucl RBC Auto (Bld) [#/Vol] Leukocytes [#/volume] corrected for nucleated erythrocytes in Blood by Automated coun 3.8-11.6 [facility] Lipaseon 05-19-2024 Lipase [Catalytic activity/Vol] 20.0 U/L Normal 11.0-82.0 [facility] Comment on above: Performed By: #### R SHAKIRA PANEL UPP., BIOFIRECOVNOTDE #### [address] Lipase [Enzymatic activity/v olume] in Serum or PlasmaOrdered By: Glenn Abdullahi on 05-19-2024 Lipase [Catalytic activity/Vol] Lipase [Enzymatic activity/volume] in Serum or Plasma 11.0-82.0 [facility] Lymphocytes Auto (Bld) [#/Vo l]Ordered By: Glenn Abdullahi on 05-19-2024 Lymphocytes (Bld) [#/Vol] Lymphocytes [#/volume] in Blood by Automated count 1.00-4.8 [facility] Lymphocytes/100 WBC Auto (Bl d)Ordered By: Glenn Abdullahi on 05-19-2024 Lymphocytes/100 WBC (Bld) Lymphocytes/100 leukocytes in Blood by Automated count . [facility] MCH Auto (RBC) [Entitic mass ]Ordered By: Glenn Abdullahi on 05-19-2024 MCH (RBC) [Entitic mass] MCH [Entitic mass] by Automated count 24.7-34.3 [facility] MCHC Auto (RBC) [Mass/Vol]Or dered By: Glenn Abdullahi on 05-19-2024 MCHC (RBC) [Mass/Vol] MCHC [Mass/volume] by Automated count 32.0-35.0 [facility] MCV Auto (RBC) [Entitic vol] Ordered By: Glenn Abdullahi on 05-19-2024 MCV (RBC) [Entitic vol] MCV [Entitic volume] by Automated count 80-100 [facility] Magnesiumon 05-19-2024 Magnesium [Mass/Vol] 1.4 mg/dL Low 1.9-2.7 [facility] Comment on above: Performed By: #### R SHAKIRA PANEL UPP., BIOFIRECOVNOTDE #### [address] Magnesium [Mass/volume] in S mayte or PlasmaOrdered By: Glenn Abdullahi on 05-19-2024 Magnesium [Mass/Vol] Magnesium [Mass/vol ume] in Serum or Plasma Low 1.9-2.7 [facility] Monocyte distribution width [Entitic volume] in Blood by AutomatedOrdered By: Glenn Abdullahi on 05-19-2024 Monocyte distribution width Auto (Bld) [Entitic vol] Monocyte distribution width [Entitic volume] in Blood by Automated 0.00-20.00 [facility] Monocytes Auto (Bld) [#/Vol] Ordered By: Glenn Abdullahi on 05-19-2024 Monocytes (Bld) [#/Vol] Automated blood monocyte count 0.0-0.8 [facility] Monocytes/100 WBC Auto (Bld) Ordered By: Glenn Abdullahi on 05-19-2024 Monocytes/100 WBC (Bld) Automated monocyte % . [facility] Mucus [Presence] in Urine by AutomatedOrdered By: Glenn Abdullahi on 05-19-2024 Mucus Auto Ql (U) Mucus [Presence] in Urine by Automated [facility] Neutrophils Auto (Bld) [#/Vo l]Ordered By: Glenn Abdullahi on 02-28-2025 Neutrophils (Bld) [#/Vol] Neutrophils [#/volume] in Blood by Automated count 1.8-7.7 [facility] Neutrophils/100 WBC Auto (Bl d)Ordered By: Glenn Abdullahi on 05-19-2024 Neutrophils/100 WBC (Bld) Automated neutrophil % . [facility] Nitrite Test strip Ql (U)Ord ered By: Glenn Abdullahi on 05-19-2024 Nitrite Ql (U) Nitrite [Presence] i n Urine by Test strip Negative [facility] No Panel InformationOrdered By: Glenn Abdullahi on 05-19-2024 Estimated GFR (CKD-EPI) > 60.0 mL/Min [facility] Creatinine Clearance (Chem 143.53 [facility] Nucleated erythrocytes [Pres ence] in Blood by Automated countOrdered By: Glenn Abdullahi on 05-19-2024 Nucleated RBC Auto Ql (Bld) Nucleated erythrocytes [Presence] in Blood by Automated count 0-0.5 [facility] Opiates [Presence] in Urine by Screen methodOrdered By: Glenn Abdullahi on 05-19-2024 Opiates Screen Ql (U) Opiates [Presence] in Urine by Screen method Negative [facility] Phencyclidine Screen Ql (U)O rdered By: Glenn Abdullahi on 05-19-2024 Phencyclidine Ql (U) Phencyclidine [Pres ence] in Urine by Screen method Negative [facility] Platelet mean volume Auto (B ld) [Entitic vol]Ordered By: Glenn Abdullahi on 05-19-2024 Platelet mean volume (Bld) [Entitic vol] Platelet mean volume [Entitic volume] in Blood by Automated count High 6.3-10.7 [facility] Platelets Auto (Bld) [#/Vol] Ordered By: Glenn Abdullahi on 05-19-2024 Platelets (Bld) [#/Vol] Platelets [#/volume] in Blood by Automated count 150-450 [facility] Potassium [Moles/volume] in Serum or PlasmaOrdered By: Glenn Abdullahi on 05-19-2024 Potassium [Moles/Vol] Potassium [Moles/v olume] in Serum or Plasma Low 3.5-5.1 [facility] Protein Test strip (U) [Mass /Vol]Ordered By: Glenn Abdullahi on 05-19-2024 Protein (U) [Mass/Vol] Protein [Mass/volume] in Urine by Test strip Negative [facility] Protein [Mass/volume] in Ser um or PlasmaOrdered By: Glenn Abdullahi on 05-19-2024 Protein [Mass/Vol] Protein [Mass/volume ] in Serum or Plasma 6.4-8.9 [facility] RBC Auto (Bld) [#/Vol]Ordere d By: Glenn Abdullahi on 05-19-2024 RBC (Bld) [#/Vol] Erythrocytes [#/volu me] in Blood by Automated count 3.60-5.00 [facility] Serum or plasma albumin/glob ulin mass ratioOrdered By: Glenn Abdullahi on 05-19-2024 Albumin/Globulin [Mass ratio] Serum or plasma albumin/globulin mass ratio [facility] Serum or plasma anion gap de terminationOrdered By: Glenn Abdullahi 05-19-2024 Anion gap [Moles/Vol] Serum or plasma an ion gap determination 6.0-15.0 [facility] Serum or plasma non-glucuron idated bilirubin measurement (mass/volume)Ordered By: Glenn Abdullahi 05-19-2024 Bilirubin.indirect [Mass/Vol] Serum or plasma non-glucuronidated bilirubin measurement (mass/volume) [facility] Sodium [Moles/volume] in Ser um or PlasmaOrdered By: Glenn Abdullahi 05-19-2024 Sodium [Moles/Vol] Sodium [Moles/volume ] in Serum or Plasma 136-145 [facility] Specific gravity Test strip (U) [Rel density]Ordered By: Glenn Abdullahi 05-19-2024 Specific gravity (U) [Rel density] Specific gravity of Urine by Test strip 1.001-1.03 0 [facility] Urea nitrogen [Mass/volume] in Serum or PlasmaOrdered By: Glenn Abdullahi 05-19-2024 Urea nitrogen [Mass/Vol] Urea nitrogen [Mass/volume] in Serum or Plasma 7-25 [facility] Urobilinogen Test strip (U) [Mass/Vol]Ordered By: Glenn Abdullahi 05-19-2024 Urobilinogen (U) [Mass/Vol] Urobilinogen [Mass/volume] in Urine by Test strip Normal [facility] WBC Auto (Bld) [#/Vol]Ordere d By: Glenn Abdullahi on 05-19-2024 WBC (Bld) [#/Vol] Leukocytes [#/volume ] in Blood by Automated count 3.8-11.6 [facility] pH Test strip (U)Ordered By: Glenn Abdullahi on 05-19-2024 pH (U) pH of Urine by Test strip 5.0-9.0 [facility] Alanine aminotransferase [En zymatic activity/volume] in Serum or PlasmaOrdered By: Glenn Abdullahi on 05-16-2024 ALT [Catalytic activity/Vol] Alanine aminotransferase [Enzymatic activity/volume] in Serum or Plasma 7-52 [facility] Albumin [Mass/volume] in Ser um or Plasma by Bromocresol green (BCG) dye binding methoOrdered By: Glenn Abdullahi on 05-16-2024 Albumin BCG dye [Mass/Vol] Albumin [Mass/volume] in Serum or Plasma by Bromocresol green (BCG) dye binding metho 3.5-5.7 [facility] Alkaline phosphatase [Enzyma tic activity/volume] in Serum or PlasmaOrdered By: Glenn Abdullahi on 05-16-2024 ALP [Catalytic activity/Vol] Alkaline phosphatase [Enzymatic activity/volume] in Serum or Plasma 34-104 [facility] Appearance of UrineOrdered B y: Glenn Abdullahi on 05-16-2024 Appearance (U) Urine appearance Clear [facility] Aspartate aminotransferase [ Enzymatic activity/volume] in Serum or PlasmaOrdered By: Glenn Abdullahi on 05-16-2024 AST [Catalytic activity/Vol] Aspartate aminotransferase [Enzymatic activity/volume] in Serum or Plasma 13-39 [facility] Basophils Auto (Bld) [#/Vol] Ordered By: Glenn Abdullahi on 05-16-2024 Basophils (Bld) [#/Vol] Automated basophil count 0.0-0.2 [facility] Basophils/100 WBC Auto (Bld) Ordered By: Glenn Abdullahi on 05-16-2024 Basophils/100 WBC (Bld) Automated basophil % . [facility] Bilirubin Test strip Ql (U)O rdered By: Glenn Abdullahi on 05-16-2024 Bilirubin Ql (U) Bilirubin.total [Pre sence] in Urine by Test strip Negative [facility] Bilirubin.direct [Mass/volum e] in Serum or PlasmaOrdered By: Glenn Abdullahi on 05-16-2024 Bilirubin.direct [Mass/Vol] Bilirubin.direct [Mass/volume] in Serum or Plasma Low 0.03-0.18 [facility] Comment on above: If the DBIL is less than 0.1, IBIL is not able to becalculated. Bilirubin.total [Mass/volume ] in Serum or PlasmaOrdered By: Glenn Abdullahi on 05-16-2024 Bilirubin [Mass/Vol] Bilirubin.total [Mass/volume] in Serum or Plasma 0.3-1.0 [facility] Calcium [Mass/volume] in Ser um or PlasmaOrdered By: Glenn Abdullahi on 05-16-2024 Calcium [Mass/Vol] Calcium [Mass/volume ] in Serum or Plasma 8.6-10.3 [facility] Carbon dioxide, total [Moles /volume] in Serum or PlasmaOrdered By: Glenn Abdullahi 05-16-2024 CO2 [Moles/Vol] Carbon dioxide, tota l [Moles/volume] in Serum or Plasma Low 21.0-31.0 [facility] Chloride [Moles/volume] in S mayte or PlasmaOrdered By: Glenn Abdullahi 05-16-2024 Chloride [Moles/Vol] Chloride [Moles/vol ume] in Serum or Plasma 98-107 [facility] Choriogonadotropin.beta subu nit [Units/volume] in Serum or PlasmaOrdered By: Glenn Abdullahi on 05-16-2024 HCG.beta subunit Qn Choriogonadotropin.b eta subunit [Units/volume] in Serum or Plasma [facility] Comment on above: Approximate Approxim ate hCG Gestational Age Range (mIU/ml) (weeks)0.2-1 5-50 1-2 50-500 2-3 100-5,000 3-4 500-10,000 4-5 1,000-50,000 5-6 10,000-100,000 6-8 15,000-200,000 8-12 10,000-100,000 Color Auto (U)Ordered By: Toro Abdullahi on 05-16-2024 Color (U) Color of Urine by Auto Yellow [facility] Complete Blood Count Auto Di ffon 05-16-2024 Basophils (Bld) [#/Vol] 0.0 10*3/uL Normal 0.0-0.2 [facility] Comment on above: Result Comment: PERF ORMED BY: [place] [address] PATHOLOGIST PROJECT MANAGEMENT IT SPECIALIST SARAH ANDREWS M.D. Performed By: #### H EPATIC, SCAN CBC, LIPASE, HCGQNT, BMP #### [address] Basophils/100 WBC (Bld) 0.0 % Normal . [facility] Comment on above: Performed By: #### H EPATIC, SCAN CBC, LIPASE, HCGQNT, BMP #### [address] Eosinophils (Bld) [#/Vol] 0.0 10*3/uL Normal 0.0-0.45 [facility] Comment on above: Performed By: #### H EPATIC, SCAN CBC, LIPASE, HCGQNT, BMP #### [address] Eosinophils/100 WBC (Bld) 0.0 % Normal . [facility] Comment on above: Performed By: #### H EPATIC, SCAN CBC, LIPASE, HCGQNT, BMP #### [address] Erythrocyte distribution width (RBC) [Ratio] 13.7 % Normal 11.9-15.3 [facility] Comment on above: Performed By: #### H EPATIC, SCAN CBC, LIPASE, HCGQNT, BMP #### [address] Hematocrit (Bld) [Volume fraction] 33.8 % Low 34.0-46.4 [facility] Comment on above: Performed By: #### H EPATIC, SCAN CBC, LIPASE, HCGQNT, BMP #### [address] Hemoglobin (Bld) [Mass/Vol] 11.7 g/dL Low 11.8-15.4 [facility] Comment on above: Performed By: #### H EPATIC, SCAN CBC, LIPASE, HCGQNT, BMP #### [address] Lymphocytes (Bld) [#/Vol] 0.6 10*3/uL Low 1.00-4.8 [facility] Comment on above: Performed By: #### H EPATIC, SCAN CBC, LIPASE, HCGQNT, BMP #### [address] Lymphocytes/100 WBC (Bld) 4.6 % Normal . [facility] Comment on above: Performed By: #### H EPATIC, SCAN CBC, LIPASE, HCGQNT, BMP #### [address] MCH (RBC) [Entitic mass] 29.7 pg Normal 24.7-34.3 [facility] Comment on above: Performed By: #### H EPATIC, SCAN CBC, LIPASE, HCGQNT, BMP #### [address] MCV (RBC) [Entitic vol] 86.3 fL Normal 80-100 [facility] Comment on above: Performed By: #### H EPATIC, SCAN CBC, LIPASE, HCGQNT, BMP #### [address] Mean Corpuscular HGB Conc 34.5 g/dL Normal 32.0-35.0 [facility] Comment on above: Performed By: #### H EPATIC, SCAN CBC, LIPASE, HCGQNT, BMP #### [address] Monocyte Distribution Width Not performed Normal 0.00-20.00 [facility] Comment on above: Result Comment: Unab le to calculate MDW because the Absolute Monocyte Count is <0.8. Performed By: #### H EPATIC, SCAN CBC, LIPASE, HCGQNT, BMP #### [address] Monocytes (Bld) [#/Vol] 0.2 10*3/uL Normal 0.0-0.8 [facility] Comment on above: Performed By: #### H EPATIC, SCAN CBC, LIPASE, HCGQNT, BMP #### [address] Monocytes/100 WBC (Bld) 1.2 % Normal . [facility] Comment on above: Performed By: #### H EPATIC, SCAN CBC, LIPASE, HCGQNT, BMP #### [address] Neutrophils (Bld) [#/Vol] 13.0 10*3/uL High 1.8-7.7 [facility] Comment on above: Performed By: #### H EPATIC, SCAN CBC, LIPASE, HCGQNT, BMP #### [address] Neutrophils/100 WBC (Bld) 94.2 % Normal . [facility] Comment on above: Performed By: #### H EPATIC, SCAN CBC, LIPASE, HCGQNT, BMP #### [address] NRBC% 0.0 /100{WBC} Normal 0-0.5 [facility] Comment on above: Performed By: #### H EPATIC, SCAN CBC, LIPASE, HCGQNT, BMP #### [place] [address] [place] Platelet mean volume (Bld) [Entitic vol] 11.1 fL High 6.3-10.7 [facility] Comment on above: Performed By: #### H EPATIC, SCAN CBC, LIPASE, HCGQNT, BMP #### [place] [address] [place] Platelets (Bld) [#/Vol] 186 10*3/uL Normal 150-450 [facility] Comment on above: Performed By: #### H EPATIC, SCAN CBC, LIPASE, HCGQNT, BMP #### [address] RBC (Bld) [#/Vol] 3.92 10*6/uL Normal 3.60-5.00 [facility] Comment on above: Performed By: #### H EPATIC, SCAN CBC, LIPASE, HCGQNT, BMP #### [address] WBC (Bld) [#/Vol] 13.8 10*3/uL High 3.8-11.6 [facility] Comment on above: Performed By: #### H EPATIC, SCAN CBC, LIPASE, HCGQNT, BMP #### [address] Comprehensive Metabolic Pane blanquita 05-16-2024 Albumin [Mass/Vol] 4.2 g/dL Normal 3.5-5.7 [facility] Comment on above: Performed By: #### H EPATIC, SCAN CBC, LIPASE, HCGQNT, BMP #### [address] Albumin/Globulin [Mass ratio] 1.2 {ratio} Normal [facility] Comment on above: Performed By: #### H EPATIC, SCAN CBC, LIPASE, HCGQNT, BMP #### [address] ALP [Catalytic activity/Vol] 46 U/L Normal 34-104 [facility] Comment on above: Performed By: #### H EPATIC, SCAN CBC, LIPASE, HCGQNT, BMP #### [address] ALT [Catalytic activity/Vol] 9 U/L Normal 7-52 [facility] Comment on above: Performed By: #### H EPATIC, SCAN CBC, LIPASE, HCGQNT, BMP #### [address] Anion gap [Moles/Vol] 17.4 mmol/L High 6.0-15.0 [facility] Comment on above: Performed By: #### H EPATIC, SCAN CBC, LIPASE, HCGQNT, BMP #### [address] AST [Catalytic activity/Vol] 17 U/L Normal 13-39 [facility] Comment on above: Performed By: #### H EPATIC, SCAN CBC, LIPASE, HCGQNT, BMP #### [address] Bilirubin [Mass/Vol] 0.4 mg/dL Normal 0.3-1.0 [facility] Comment on above: Performed By: #### H EPATIC, SCAN CBC, LIPASE, HCGQNT, BMP #### [address] Calcium [Mass/Vol] 9.4 mg/dL Normal 8.6-10.3 [facility] Comment on above: Performed By: #### H EPATIC, SCAN CBC, LIPASE, HCGQNT, BMP #### [address] Chloride [Moles/Vol] 106 mmol/L Normal 98-107 [facility] Comment on above: Performed By: #### H EPATIC, SCAN CBC, LIPASE, HCGQNT, BMP #### [address] CO2 [Moles/Vol] 16.0 mmol/L Low 21.0-31.0 [facility] Comment on above: Performed By: #### H EPATIC, SCAN CBC, LIPASE, HCGQNT, BMP #### [address] Creatinine [Mass/Vol] 0.52 mg/dL Low 0.60-1.20 [facility] Comment on above: Performed By: #### H EPATIC, SCAN CBC, LIPASE, HCGQNT, BMP #### [address] Creatinine Clr Calc Pharmacy 146.48 Normal [facility] Comment on above: Performed By: #### H EPATIC, SCAN CBC, LIPASE, HCGQNT, BMP #### [facility] [address] [place] [address] [place] GFR/1.73 sq M.predicted MDRD (S/P/Bld) [Vol rate/Area] mL/min/{1.73_m2} Normal [facility] Comment on above: Performed By: #### H EPATIC, SCAN CBC, LIPASE, HCGQNT, BMP #### [facility] [address] Globulin (S) [Mass/Vol] 3.4 g/dL Normal [facility] Comment on above: Performed By: #### H EPATIC, SCAN CBC, LIPASE, HCGQNT, BMP #### [address] Glucose [Mass/Vol] 160 mg/dL High 70-100 [facility] Comment on above: Result Comment: [facility] Glucose Reference Range is dependent on time and content of last meal. Glucose of more than 200 mg/dL in a nonstressed, ambulatory subject supports the diagnosis of Diabetes Mellitus. ADA recommended reference range Performed By: #### H EPATIC, SCAN CBC, LIPASE, HCGQNT, BMP #### [address] Potassium [Moles/Vol] 3.4 mmol/L Low 3.5-5.1 [facility] Comment on above: Result Comment: Hemo lysis is present at a level that could interfere with the result. Contact lab if redraw is required Performed By: #### H EPATIC, SCAN CBC, LIPASE, HCGQNT, BMP #### [facility] [address] Protein [Mass/Vol] 7.6 g/dL Normal 6.4-8.9 [facility] Comment on above: Performed By: #### H EPATIC, SCAN CBC, LIPASE, HCGQNT, BMP #### [address] Sodium [Moles/Vol] 136 mmol/L Normal 136-145 [facility] Comment on above: Performed By: #### H EPATIC, SCAN CBC, LIPASE, HCGQNT, BMP #### [facility] [address] [place] [address] [place] Urea nitrogen [Mass/Vol] 9 mg/dL Normal 7-25 [facility] Comment on above: Performed By: #### H EPATIC, SCAN CBC, LIPASE, HCGQNT, BMP #### [facility] [address] [place] [address] [place] Creatinine [Mass/volume] in Serum or PlasmaOrdered By: Glenn Abdullahi on 05-16-2024 Creatinine [Mass/Vol] Creatinine [Mass/v olume] in Serum or Plasma Low 0.60-1.20 [facility] Eosinophils Auto (Bld) [#/Vo l]Ordered By: Glenn Abdullahi on 05-16-2024 Eosinophils (Bld) [#/Vol] Automated eosinophil count 0.0-0.45 [facility] Eosinophils/100 WBC Auto (Bl d)Ordered By: Glenn Abdullahi on 05-16-2024 Eosinophils/100 WBC (Bld) Automated eosinophil % . [facility] Erythrocyte distribution wid th Auto (RBC) [Ratio]Ordered By: Glenn Abdullahi on 05-16-2024 Erythrocyte distribution width (RBC) [Ratio] Erythrocyte distribution width [Ratio] by Automated count 11.9-15.3 [facility] Globulin Calc (S) [Mass/Vol] Ordered By: Glenn Abdullahi on 05-16-2024 Globulin (S) [Mass/Vol] Serum globulin measurement by calculation (mass/volume) [facility] Glucose [Mass/volume] in Ser um or PlasmaOrdered By: Glenn Abdullahi on 05-16-2024 Glucose [Mass/Vol] Glucose [Mass/volume ] in Serum or Plasma High 70-100 [facility] Comment on above: ADA recommended refe rence rangeRandom Glucose Reference Range is dependent on time and content of last meal. Glucose of more than 200 mg/dL in a nonstressed, ambulatory subject supports the diagnosis of Diabetes Mellitus. Glucose [Mass/volume] in Uri ne by Test stripOrdered By: Glenn Abdullahi on 05-16-2024 Glucose Test strip (U) [Mass/Vol] Glucose [Mass/volume] in Urine by Test strip High Normal [facility] HCG,Quantitativeon HCG,Quantitative 94689.00 m[iU]/mL Normal [facility] Comment on above: Result Comment: Appr oximate Approximate hCG Gestational Age Range (mIU/ml) (weeks) 0.2-1 5-50 1-2 50-500 2-3 100-5,000 3-4 500-10,000 4-5 1,000-50,000 5-6 10,000-100,000 6-8 15,000-200,000 8-12 10,000-100,000 PERFORMED BY: [place] [address] PATHOLOGIST PROJECT MANAGEMENT IT SPECIALIST SARAH ANDREWS M.D. Performed By: #### H EPATIC, SCAN CBC, LIPASE, HCGQNT, BMP #### [facility] [address] [place] [address] Hematocrit Auto (Bld) [Volum e fraction]Ordered By: Glenn Abdullahi on 05-16-2024 Hematocrit (Bld) [Volume fraction] Hematocrit [Volume Fraction] of Blood by Automated count Low 34.0-46.4 [facility] Hemoglobin Test strip Ql (U) Ordered By: Glenn Abdullahi on 05-16-2024 Hemoglobin Ql (U) Hemoglobin [Presence ] in Urine by Test strip Negative [facility] Hemoglobin [Mass/volume] in BloodOrdered By: Glenn Abdullahi on 05-16-2024 Hemoglobin (Bld) [Mass/Vol] Hemoglobin [Mass/volume] in Blood Low 11.8-15.4 [facility] Hepatic Panelon 05-16-2024 Bilirubin,Indirect 0.4 mg/dL Normal [facility] Comment on above: Performed By: #### H EPATIC, SCAN CBC, LIPASE, HCGQNT, BMP #### [facility] [address] [place] [address] Bilirubin.indirect [Mass/Vol] 0.00 mg/dL Low 0.03-0.18 [facility] Comment on above: Result Comment: If t he DBIL is less than 0.1, IBIL is not able to be calculated. Performed By: #### H EPATIC, SCAN CBC, LIPASE, HCGQNT, BMP #### [facility] [address] Ketones Test strip Ql (U)Ord ered By: Glenn Abdullahi on 05-16-2024 Ketones Ql (U) Ketones [Presence] i n Urine by Test strip High Negative [facility] Leukocyte esterase [Presence ] in Urine by Test stripOrdered By: Glenn Abdullahi on 05-16-2024 Leukocyte esterase Test strip Ql (U) Leukocyte esterase [Presence] in Urine by Test strip Negative [facility] Leukocytes [#/volume] correc rossy for nucleated erythrocytes in Blood by Automated counOrdered By: Glenn Abdullahi on 05-16-2024 WBC corrected for nucl RBC Auto (Bld) [#/Vol] Leukocytes [#/volume] corrected for nucleated erythrocytes in Blood by Automated coun High 3.8-11.6 [facility] Lipaseon 05-16-2024 Lipase [Catalytic activity/Vol] 25.0 U/L Normal 11.0-82.0 [facility] Comment on above: Performed By: #### H EPATIC, SCAN CBC, LIPASE, HCGQNT, BMP #### [facility] [address] [place] [address] Lipase [Enzymatic activity/v olume] in Serum or PlasmaOrdered By: Glenn Abdullahi on 05-16-2024 Lipase [Catalytic activity/Vol] Lipase [Enzymatic activity/volume] in Serum or Plasma 11.0-82.0 [facility] Lymphocytes Auto (Bld) [#/Vo l]Ordered By: Glenn Abdullahi on 05-16-2024 Lymphocytes (Bld) [#/Vol] Lymphocytes [#/volume] in Blood by Automated count Low 1.00-4.8 [facility] Lymphocytes/100 WBC Auto (Bl d)Ordered By: Glenn Abdullahi on 05-16-2024 Lymphocytes/100 WBC (Bld) Lymphocytes/100 leukocytes in Blood by Automated count . [facility] MCH Auto (RBC) [Entitic mass ]Ordered By: Glenn Abdullahi on 05-16-2024 MCH (RBC) [Entitic mass] MCH [Entitic mass] by Automated count 24.7-34.3 [facility] MCHC Auto (RBC) [Mass/Vol]Or dered By: Glenn Abdullahi on 05-16-2024 MCHC (RBC) [Mass/Vol] MCHC [Mass/volume] by Automated count 32.0-35.0 [facility] MCV Auto (RBC) [Entitic vol] Ordered By: Glenn Abdullahi on 05-16-2024 MCV (RBC) [Entitic vol] MCV [Entitic volume] by Automated count 80-100 [facility] Monocyte distribution width [Entitic volume] in Blood by AutomatedOrdered By: Glenn Abdullahi on 05-16-2024 Monocyte distribution width Auto (Bld) [Entitic vol] Monocyte distribution width [Entitic volume] in Blood by Automated 0.00-20.00 [facility] Comment on above: Unable to calculate MDW because the Absolute Monocyte Count is <0.8. Monocytes Auto (Bld) [#/Vol] Ordered By: Glenn Abdullahi on 05-16-2024 Monocytes (Bld) [#/Vol] Automated blood monocyte count 0.0-0.8 [facility] Monocytes/100 WBC Auto (Bld) Ordered By: Glenn Abdullahi on 05-16-2024 Monocytes/100 WBC (Bld) Automated monocyte % . [facility] Neutrophils Auto (Bld) [#/Vo l]Ordered By: Glenn Abdullahi on 05-16-2024 Neutrophils (Bld) [#/Vol] Neutrophils [#/volume] in Blood by Automated count High 1.8-7.7 [facility] Neutrophils/100 WBC Auto (Bl d)Ordered By: Glenn Abdullahi on 05-16-2024 Neutrophils/100 WBC (Bld) Automated neutrophil % . [facility] Nitrite Test strip Ql (U)Ord ered By: Glenn Abdullahi on 05-16-2024 Nitrite Ql (U) Nitrite [Presence] i n Urine by Test strip Negative [facility] No Panel InformationOrdered By: Glenn Abdullahi on 05-16-2024 Estimated GFR (CKD-EPI) > 60.0 mL/Min [facility] Creatinine Clearance (Chem 146.48 [facility] Nucleated erythrocytes [Pres ence] in Blood by Automated countOrdered By: Glenn Abdullahi on 05-16-2024 Nucleated RBC Auto Ql (Bld) Nucleated erythrocytes [Presence] in Blood by Automated count 0-0.5 [facility] Platelet mean volume Auto (B ld) [Entitic vol]Ordered By: Glenn Abdullahi on 05-16-2024 Platelet mean volume (Bld) [Entitic vol] Platelet mean volume [Entitic volume] in Blood by Automated count High 6.3-10.7 [facility] Platelets Auto (Bld) [#/Vol] Ordered By: Glenn Abdullahi on 05-16-2024 Platelets (Bld) [#/Vol] Platelets [#/volume] in Blood by Automated count 150-450 [facility] Potassium [Moles/volume] in Serum or PlasmaOrdered By: Glenn Abdullahi on 05-16-2024 Potassium [Moles/Vol] Potassium [Moles/v olume] in Serum or Plasma Low 3.5-5.1 [facility] Comment on above: Hemolysis is present at a level that could interfere with the result.Contact lab if redraw is required Protein Test strip (U) [Mass /Vol]Ordered By: Glenn Abdullahi on 05-16-2024 Protein (U) [Mass/Vol] Protein [Mass/volume] in Urine by Test strip Negative [facility] Protein [Mass/volume] in Ser um or PlasmaOrdered By: Glenn Abdullahi on 05-16-2024 Protein [Mass/Vol] Protein [Mass/volume ] in Serum or Plasma 6.4-8.9 [facility] RBC Auto (Bld) [#/Vol]Ordere d By: Glenn Abdullahi on 05-16-2024 RBC (Bld) [#/Vol] Erythrocytes [#/volu me] in Blood by Automated count 3.60-5.00 [facility] Serum or plasma albumin/glob ulin mass ratioOrdered By: Glenn Abdullahi on 05-16-2024 Albumin/Globulin [Mass ratio] Serum or plasma albumin/globulin mass ratio [facility] Serum or plasma anion gap de terminationOrdered By: Glenn Abdullahi on 05-16-2024 Anion gap [Moles/Vol] Serum or plasma an ion gap determination High 6.0-15.0 [facility] Serum or plasma non-glucuron idated bilirubin measurement (mass/volume)Ordered By: Glenn Abdullahi on 05-16-2024 Bilirubin.indirect [Mass/Vol] Serum or plasma non-glucuronidated bilirubin measurement (mass/volume) [facility] Sodium [Moles/volume] in Ser um or PlasmaOrdered By: Glenn Abdullahi on 05-16-2024 Sodium [Moles/Vol] Sodium [Moles/volume ] in Serum or Plasma 136-145 [facility] Specific gravity Test strip (U) [Rel density]Ordered By: Glenn Abdullahi on 05-16-2024 Specific gravity (U) [Rel density] Specific gravity of Urine by Test strip 1.001-1.03 0 [facility] Urea nitrogen [Mass/volume] in Serum or PlasmaOrdered By: Glenn Abdullahi on 05-16-2024 Urea nitrogen [Mass/Vol] Urea nitrogen [Mass/volume] in Serum or Plasma 7-25 [facility] Urinalysison 05-16-2024 Appearance (U) Clear Normal Clear [facility] Comment on above: Order Comment: Name Collection Type:: Clean-Voided Midstream Performed By: #### R SHAKIRA PANEL UPP., BIOFIRECOVNOTDE #### [facility] [address] [place] [address] [place] Bilirubin,Urine Negative Normal Negative [facility] Comment on above: Order Comment: Name Collection Type:: Clean-Voided Midstream Performed By: #### R SHAKIRA PANEL UPP., BIOFIRECOVNOTDE #### [facility] [address] [place] [id number] [place] Color (U) Light-Yellow Normal Yellow [facility] Comment on above: Order Comment: Name Collection Type:: Clean-Voided Midstream Performed By: #### R SHAKIRA PANEL UPP., BIOFIRECOVNOTDE #### [facility] [address] [place] [id number] [place] Glucose Ql (U) 500 mg/dL High Normal [facility] Comment on above: Order Comment: Name Collection Type:: Clean-Voided Midstream Performed By: #### R SHAKIRA PANEL UPP., BIOFIRECOVNOTDE #### [address] Ketones Ql (U) 4+ High Negative [facility] Comment on above: Order Comment: Name Collection Type:: Clean-Voided Midstream Performed By: #### R SHAKIRA PANEL UPP., BIOFIRECOVNOTDE #### [address] Leukocyte esterase Test strip Ql (U) Negative Normal Negative [facility] Comment on above: Order Comment: Name Collection Type:: Clean-Voided Midstream Performed By: #### R SHAKIRA PANEL UPP., BIOFIRECOVNOTDE #### [place] [address] [place] Nitrite,Urine Negative Normal Negative [facility] Comment on above: Order Comment: Name Collection Type:: Clean-Voided Midstream Performed By: #### R SHAKIRA PANEL UPP., BIOFIRECOVNOTDE #### [place] [address] [place] Occult Blood,Urine Negative Normal Negative [facility] Comment on above: Order Comment: Name Collection Type:: Clean-Voided Midstream Result Comment: PERF ORMED BY: [place] [address] PATHOLOGIST PROJECT MANAGEMENT IT SPECIALIST SARAH ANDREWS M.D. Performed By: #### R SHAKIRA PANEL UPP., BIOFIRECOVNOTDE #### [place] [address] [place] pH (U) 8.0 [pH] Normal 5.0-9.0 [facility] Comment on above: Order Comment: Name Collection Type:: Clean-Voided Midstream Performed By: #### R SHAKIRA PANEL UPP., BIOFIRECOVNOTDE #### [place] [address] [place] Protein,Urine Negative Normal Negative [facility] Comment on above: Order Comment: Name Collection Type:: Clean-Voided Midstream Performed By: #### R SHAKIRA PANEL UPP., BIOFIRECOVNOTDE #### [facility] [address] Specificy [place],Urine 1.020 Normal 1.001-1.03 0 [facility] Comment on above: Order Comment: Name Collection Type:: Clean-Voided Midstream Performed By: #### R SHAKIRA PANEL UPP., BIOFIRECOVNOTDE #### [facility] [address] Urobilinogen,Urine Normal Normal Normal [facility] Comment on above: Order Comment: Name Collection Type:: Clean-Voided Midstream Performed By: #### R SHAKIRA PANEL UPP., BIOFIRECOVNOTDE #### [address] Urobilinogen Test strip (U) [Mass/Vol]Ordered By: Glenn Abdullahi on 05-16-2024 Urobilinogen (U) [Mass/Vol] Urobilinogen [Mass/volume] in Urine by Test strip Normal [facility] WBC Auto (Bld) [#/Vol]Ordere d By: Glenn Abdullahi on 05-16-2024 WBC (Bld) [#/Vol] Leukocytes [#/volume ] in Blood by Automated count High 3.8-11.6 [facility] pH Test strip (U)Ordered By: Glenn Abdullahi on 05-16-2024 pH (U) pH of Urine by Test strip 5.0-9.0 [facility] Urinalysis macro (dipstick) panel (U)Ordered By: Gloria Garcias on 04-24-2024 Bilirubin, UA Negative Negative - 4(70) +++ mg/dL [facility] Work Phone: Blood, UA Negative Negative - 50 Josiah/mcL [facility] Work Phone: Clarity, UA Clear [facility] Work Phone: Color, UA Yellow [facility] Work Phone: Glucose, UA Negative Negative - 2000(110) ++++ mg/dL [facility] Work Phone: Interpretation and review of laboratory results Abnormal [facility] Work Phone: Ketones, UA Negative Negative - 160(16) ++++ mg/dL [facility] Work Phone: Leukocytes, UA Negative Negative - 500+++ Archana/mcL [facility] Work Phone: Nitrite, UA Negative Negative - Positive [facility] Work Phone: pH, UA 6 5 - 9 [facility] Work Phone: Protein, UA Negative Negative - 2000(20) ++++ mg/dL [facility] Work Phone: Spec Grav, UA 1.03 1 - 1.03 [facility] Work Phone: Urobilinogen, UA 1.0 0.2 - 12 mg/dL [facility] Work Phone: [facility] Work Phone: Alanine aminotransferase [En zymatic activity/volume] in Serum or PlasmaOrdered By: Parminder Powell on 04-05-2024 ALT [Catalytic activity/Vol] Alanine aminotransferase [Enzymatic activity/volume] in Serum or Plasma 7-52 [facility] Albumin [Mass/volume] in Ser um or Plasma by Bromocresol green (BCG) dye binding methoOrdered By: Parminder Powell on 04-05-2024 Albumin BCG dye [Mass/Vol] Albumin [Mass/volume] in Serum or Plasma by Bromocresol green (BCG) dye binding metho 3.5-5.7 [facility] Alkaline phosphatase [Enzyma tic activity/volume] in Serum or PlasmaOrdered By: Parminder Powell on 04-05-2024 ALP [Catalytic activity/Vol] Alkaline phosphatase [Enzymatic activity/volume] in Serum or Plasma 34-104 [facility] Appearance of UrineOrdered B y: Parminder Powell on 04-05-2024 Appearance (U) Urine appearance Clear [facility] Aspartate aminotransferase [ Enzymatic activity/volume] in Serum or PlasmaOrdered By: Parminder Powell on 04-05-2024 AST [Catalytic activity/Vol] Aspartate aminotransferase [Enzymatic activity/volume] in Serum or Plasma 13-39 [facility] Bacteria [Presence] in Urine by AutomatedOrdered By: Parminder Powell on 04-05-2024 Bacteria Auto Ql (U) Bacteria [Presence] in Urine by Automated None Seen [facility] Basophils Auto (Bld) [#/Vol] Ordered By: Parminder Powell on 04-05-2024 Basophils (Bld) [#/Vol] Automated basophil count 0.0-0.2 [facility] Basophils/100 WBC Auto (Bld) Ordered By: Parminder Powell on 04-05-2024 Basophils/100 WBC (Bld) Automated basophil % . [facility] Bilirubin Test strip Ql (U)O rdered By: Parminder Powell on 04-05-2024 Bilirubin Ql (U) Bilirubin.total [Pre sence] in Urine by Test strip Negative [facility] Bilirubin.total [Mass/volume ] in Serum or PlasmaOrdered By: Parminder Powell on 04-05-2024 Bilirubin [Mass/Vol] Bilirubin.total [Mass/volume] in Serum or Plasma 0.3-1.0 [facility] BioFire Not Detectedon 04-05 BioFire Not Detected Not detected Normal Not Detecte [facility] Comment on above: Result Comment: This is a duplicate RP2.1 COVID (PCR) result to be used for statistical tracking purpose only. PERFORMED BY: [place] [address] PATHOLOGIST PRO[employer]NA[employer]EMENT IT SPECIALIST SARAH ANDREWS M.D. Performed By: #### R SHAKIRA PANEL UPP., BIOFIRECOVNOTDE #### [address] COVID-19 Detected/Not Detect edOrdered By: Parminder Powell on 04-05-2024 SARS-CoV-2 (COVID-19) RNA TORRES+non-probe Ql (Nph) Not detected Not Detecte [facility] Comment on above: This is a duplicate RP2.1 COVID (PCR) result to be used for statistical tracking purpose only. Calcium [Mass/volume] in Ser um or PlasmaOrdered By: Parminder Powell on 04-05-2024 Calcium [Mass/Vol] Calcium [Mass/volume ] in Serum or Plasma 8.6-10.3 [facility] Carbon dioxide, total [Moles /volume] in Serum or PlasmaOrdered By: Parminder Powell on 04-05-2024 CO2 [Moles/Vol] Carbon dioxide, tota l [Moles/volume] in Serum or Plasma Low 21.0-31.0 [facility] Chloride [Moles/volume] in S mayte or PlasmaOrdered By: Parminder Powell on 04-05-2024 Chloride [Moles/Vol] Chloride [Moles/vol ume] in Serum or Plasma 98-107 [facility] Color Auto (U)Ordered By: Eduar Powell on 04-05-2024 Color (U) Color of Urine by Auto Yellow [facility] Complete Blood Count Auto Di ffon 04-05-2024 Basophils (Bld) [#/Vol] 0.0 10*3/uL Normal 0.0-0.2 [facility] Comment on above: Result Comment: PERF ORMED BY: [place] [address] PATHOLOGIST PROJECT MANAGEMENT IT SPECIALIST SARAH ANDREWS M.D. Performed By: #### R SHAKIRA PANEL UPP., BIOFIRECOVNOTDE #### [address] Basophils/100 WBC (Bld) 0.2 % Normal . [facility] Comment on above: Performed By: #### R SHAKIRA PANEL UPP., BIOFIRECOVNOTDE #### [facility] [address] Eosinophils (Bld) [#/Vol] 0.0 10*3/uL Normal 0.0-0.45 [facility] Comment on above: Performed By: #### R SHAKIRA PANEL UPP., BIOFIRECOVNOTDE #### [place] [address] [place] Eosinophils/100 WBC (Bld) 0.0 % Normal . [facility] Comment on above: Performed By: #### R SHAKIRA PANEL UPP., BIOFIRECOVNOTDE #### [address] Erythrocyte distribution width (RBC) [Ratio] 14.5 % Normal 11.9-15.3 [facility] Comment on above: Performed By: #### R SHAKIRA PANEL UPP., BIOFIRECOVNOTDE #### [address] Hematocrit (Bld) [Volume fraction] 34.4 % Normal 34.0-46.4 [facility] Comment on above: Performed By: #### R SHAKIRA PANEL UPP., BIOFIRECOVNOTDE #### [address] Hemoglobin (Bld) [Mass/Vol] 11.4 g/dL Low 11.8-15.4 [facility] Comment on above: Performed By: #### R SHAKIRA PANEL UPP., BIOFIRECOVNOTDE #### [address] Lymphocytes (Bld) [#/Vol] 0.8 10*3/uL Low 1.00-4.8 [facility] Comment on above: Performed By: #### R SHAKIRA PANEL UPP., BIOFIRECOVNOTDE #### [address] Lymphocytes/100 WBC (Bld) 6.0 % Normal . [facility] Comment on above: Performed By: #### R SHAKIRA PANEL UPP., BIOFIRECOVNOTDE #### [address] MCH (RBC) [Entitic mass] 28.9 pg Normal 24.7-34.3 [facility] Comment on above: Performed By: #### R SHAKIRA PANEL UPP., BIOFIRECOVNOTDE #### [address] MCV (RBC) [Entitic vol] 86.9 fL Normal 80-100 [facility] Comment on above: Performed By: #### R SHAKIRA PANEL UPP., BIOFIRECOVNOTDE #### [address] Mean Corpuscular HGB Conc 33.2 g/dL Normal 32.0-35.0 [facility] Comment on above: Performed By: #### R SHAKIRA PANEL UPP., BIOFIRECOVNOTDE #### [address] Monocytes (Bld) [#/Vol] 0.3 10*3/uL Normal 0.0-0.8 [facility] Comment on above: Performed By: #### R SHAKIRA PANEL UPP., BIOFIRECOVNOTDE #### [address] Monocytes/100 WBC (Bld) 19.24 % Normal 0.00-20.00 [facility] Comment on above: Performed By: #### R SHAKIRA PANEL UPP., BIOFIRECOVNOTDE #### [address] Monocytes/100 WBC (Bld) 2.1 % Normal . [facility] Comment on above: Performed By: #### R SHAKIRA PANEL UPP., BIOFIRECOVNOTDE #### [address] Neutrophils (Bld) [#/Vol] 11.7 10*3/uL High 1.8-7.7 [facility] Comment on above: Performed By: #### R SHAKIRA PANEL UPP., BIOFIRECOVNOTDE #### [place] [address] [place] Neutrophils/100 WBC (Bld) 91.7 % Normal . [facility] Comment on above: Performed By: #### R SHAKIRA PANEL UPP., BIOFIRECOVNOTDE #### [place] [address] [place] NRBC% 0.0 /100{WBC} Normal 0-0.5 [facility] Comment on above: Performed By: #### R SHAKIRA PANEL UPP., BIOFIRECOVNOTDE #### [place] [address] [place] Platelet mean volume (Bld) [Entitic vol] 11.2 fL High 6.3-10.7 [facility] Comment on above: Performed By: #### R SHAKIRA PANEL UPP., BIOFIRECOVNOTDE #### [facility] [address] Platelets (Bld) [#/Vol] 205 10*3/uL Normal 150-450 [facility] Comment on above: Performed By: #### R SHAKIRA PANEL UPP., BIOFIRECOVNOTDE #### [address] RBC (Bld) [#/Vol] 3.95 10*6/uL Normal 3.60-5.00 [facility] Comment on above: Performed By: #### R SHAKIRA PANEL UPP., BIOFIRECOVNOTDE #### [address] WBC (Bld) [#/Vol] 12.7 10*3/uL High 3.8-11.6 [facility] Comment on above: Performed By: #### R SHAKIRA PANEL UPP., BIOFIRECOVNOTDE #### [address] Comprehensive Metabolic Pane blanquita 04-05-2024 Albumin [Mass/Vol] 4.2 g/dL Normal 3.5-5.7 [facility] Comment on above: Performed By: #### R SHAKIRA PANEL UPP., BIOFIRECOVNOTDE #### [address] Albumin/Globulin [Mass ratio] 1.3 {ratio} Normal [facility] Comment on above: Performed By: #### R SHAKIRA PANEL UPP., BIOFIRECOVNOTDE #### [address] ALP [Catalytic activity/Vol] 60 U/L Normal 34-104 [facility] Comment on above: Performed By: #### R SHAKIRA PANEL UPP., BIOFIRECOVNOTDE #### [address] ALT [Catalytic activity/Vol] 20 U/L Normal 7-52 [facility] Comment on above: Performed By: #### R SHAKIRA PANEL UPP., BIOFIRECOVNOTDE #### [address] Anion gap [Moles/Vol] 15.3 mmol/L High 6.0-15.0 [facility] Comment on above: Performed By: #### R SHAKIRA PANEL UPP., BIOFIRECOVNOTDE #### [address] AST [Catalytic activity/Vol] 13 U/L Normal 13-39 [facility] Comment on above: Performed By: #### R SHAKIRA PANEL UPP., BIOFIRECOVNOTDE #### [address] Bilirubin [Mass/Vol] 0.5 mg/dL Normal 0.3-1.0 [facility] Comment on above: Performed By: #### R SHAKIRA PANEL UPP., BIOFIRECOVNOTDE #### [address] Calcium [Mass/Vol] 9.1 mg/dL Normal 8.6-10.3 [facility] Comment on above: Performed By: #### R SHAKIRA PANEL UPP., BIOFIRECOVNOTDE #### [place] [address] [place] Chloride [Moles/Vol] 106 mmol/L Normal 98-107 [facility] Comment on above: Performed By: #### R SHAKIRA PANEL UPP., BIOFIRECOVNOTDE #### [place] [address] [place] CO2 [Moles/Vol] 19.0 mmol/L Low 21.0-31.0 [facility] Comment on above: Performed By: #### R SHAKIRA PANEL UPP., BIOFIRECOVNOTDE #### [address] Creatinine [Mass/Vol] 0.41 mg/dL Low 0.60-1.20 [facility] Comment on above: Performed By: #### R SHAKIRA PANEL UPP., BIOFIRECOVNOTDE #### [address] Creatinine Clr Calc Pharmacy 181.93 Normal [facility] Comment on above: Performed By: #### R SHAKIRA PANEL UPP., BIOFIRECOVNOTDE #### [address] GFR/1.73 sq M.predicted MDRD (S/P/Bld) [Vol rate/Area] mL/min/{1.73_m2} Normal [facility] Comment on above: Performed By: #### R SHAKIRA PANEL UPP., BIOFIRECOVNOTDE #### [address] Globulin (S) [Mass/Vol] 3.2 g/dL Normal [facility] Comment on above: Performed By: #### R SHAKIRA PANEL UPP., BIOFIRECOVNOTDE #### [address] Glucose [Mass/Vol] 138 mg/dL High 70-100 [facility] Comment on above: Result Comment: Pooler Glucose Reference Range is dependent on time and content of last meal. Glucose of more than 200 mg/dL in a nonstressed, ambulatory subject supports the diagnosis of Diabetes Mellitus. ADA recommended reference range Performed By: #### R SHAKIRA PANEL UPP., BIOFIRECOVNOTDE #### [address] Potassium [Moles/Vol] 3.3 mmol/L Low 3.5-5.1 [facility] Comment on above: Performed By: #### R SHAKIRA PANEL UPP., BIOFIRECOVNOTDE #### [address] Protein [Mass/Vol] 7.4 g/dL Normal 6.4-8.9 [facility] Comment on above: Performed By: #### R SHAKIRA PANEL UPP., BIOFIRECOVNOTDE #### [facility] [address] [place] [address] [place] Sodium [Moles/Vol] 137 mmol/L Normal 136-145 [facility] Comment on above: Performed By: #### R SHAKIRA PANEL UPP., BIOFIRECOVNOTDE #### [place] [address] [place] Urea nitrogen [Mass/Vol] 9 mg/dL Normal 7-25 [facility] Comment on above: Performed By: #### R SHAKIRA PANEL UPP., BIOFIRECOVNOTDE #### [place] [address] [place] Creatinine [Mass/volume] in Serum or PlasmaOrdered By: Parminder Powell on 04-05-2024 Creatinine [Mass/Vol] Creatinine [Mass/v olume] in Serum or Plasma Low 0.60-1.20 [facility] Dipstick and Microscopicon 0 04-05-2024 Appearance (U) Clear Normal Clear [facility] Comment on above: Order Comment: Name Collection Type:: Clean-Voided Midstream Performed By: #### A DDONUAPLUS #### [place] [address] [place] Bacteria,Urine None Seen Normal None Seen [facility] Comment on above: Order Comment: Name Collection Type:: Clean-Voided Midstream Performed By: #### A DDONUAPLUS #### [place] [address] [place] Bilirubin,Urine Negative Normal Negative [facility] Comment on above: Order Comment: Name Collection Type:: Clean-Voided Midstream Performed By: #### A DDONUAPLUS #### [place] [address] [place] Color (U) Light-Yellow Normal Yellow [facility] Comment on above: Order Comment: Name Collection Type:: Clean-Voided Midstream Performed By: #### A DDONUAPLUS #### [place] [address] [place] Glucose Ql (U) 150 mg/dL High Normal [facility] Comment on above: Order Comment: Name Collection Type:: Clean-Voided Midstream Performed By: #### A DDONUAPLUS #### [place] [address] [place] Hyaline Casts,Urine None Normal 0-8 [facility] Comment on above: Order Comment: Name Collection Type:: Clean-Voided Midstream Performed By: #### A DDONUAPLUS #### [address] Ketones Ql (U) 4+ High Negative [facility] Comment on above: Order Comment: Name Collection Type:: Clean-Voided Midstream Performed By: #### A DDONUAPLUS #### [place] [address] [place] Leukocyte esterase Test strip Ql (U) 3+ High Negative [facility] Comment on above: Order Comment: Name Collection Type:: Clean-Voided Midstream Performed By: #### A DDONUAPLUS #### [place] [address] [place] Mucus,Urine Rare Normal [facility] Comment on above: Order Comment: Name Collection Type:: Clean-Voided Midstream Result Comment: PERF ORMED BY: [place] [address] PATHOLOGIST PROJECT MANAGEMENT IT SPECIALIST SARAH ANDREWS M.D. Performed By: #### A DDONUAPLUS #### [place] [address] [place] Nitrite,Urine Negative Normal Negative [facility] Comment on above: Order Comment: Name Collection Type:: Clean-Voided Midstream Performed By: #### A DDONUAPLUS #### [place] [address] [place] Occult Blood,Urine Negative Normal Negative [facility] Comment on above: Order Comment: Name Collection Type:: Clean-Voided Midstream Result Comment: PERF ORMED BY: [place] [address] PATHOLOGIST PROJECT MANAGEMENT IT SPECIALIST SARAH ANDREWS M.D. Performed By: #### A DDONUAPLUS #### [address] pH (U) 6.5 [pH] Normal 5.0-9.0 [facility] Comment on above: Order Comment: Name Collection Type:: Clean-Voided Midstream Performed By: #### A DDONUAPLUS #### [address] Protein,Urine Negative Normal Negative [facility] Comment on above: Order Comment: Name Collection Type:: Clean-Voided Midstream Performed By: #### A DDONUAPLUS #### [address] RBC,Urine 1 [HPF] Normal 0-4 [facility] Comment on above: Order Comment: Name Collection Type:: Clean-Voided Midstream Performed By: #### A DDONUAPLUS #### [address] Specificy [place],Urine 1.018 Normal 1.001-1.03 0 [facility] Comment on above: Order Comment: Name Collection Type:: Clean-Voided Midstream Performed By: #### A DDONUAPLUS #### [address] Squamous Epithelial Cell,Urine 3 [HPF] High 0-2 [facility] Comment on above: Order Comment: Name Collection Type:: Clean-Voided Midstream Performed By: #### A DDONUAPLUS #### [address] Urobilinogen,Urine Normal Normal Normal [facility] Comment on above: Order Comment: Name Collection Type:: Clean-Voided Midstream Performed By: #### A DDONUAPLUS #### [address] WBC,Urine 3 [HPF] Normal 0-4 [facility] Comment on above: Order Comment: Name Collection Type:: Clean-Voided Midstream Performed By: #### A DDONUAPLUS #### [facility] [address] Eosinophils Auto (Bld) [#/Vo l]Ordered By: Parminder Powell on 04-05-2024 Eosinophils (Bld) [#/Vol] Automated eosinophil count 0.0-0.45 [facility] Eosinophils/100 WBC Auto (Bl d)Ordered By: Parminder Powell on 04-05-2024 Eosinophils/100 WBC (Bld) Automated eosinophil % . [facility] Epithelial cells.squamous [# /area] in Urine sediment by Automated countOrdered By: Parminder Powell on 04-05-2024 Epithelial cells.squamous Auto (Urine sed) [#/Area] Epithelial cells.squamous [#/area] in Urine sediment by Automated count High 0-2 [facility] Erythrocyte distribution wid th Auto (RBC) [Ratio]Ordered By: Parminder Powell on 04-05-2024 Erythrocyte distribution width (RBC) [Ratio] Erythrocyte distribution width [Ratio] by Automated count 11.9-15.3 [facility] Erythrocytes [#/area] in Uri ne sediment by Automated countOrdered By: Parminder Powell on 04-05-2024 RBC Auto (Urine sed) [#/Area] Erythrocytes [#/area] in Urine sediment by Automated count 0-4 [facility] Globulin Calc (S) [Mass/Vol] Ordered By: Parminder Powell on 04-05-2024 Globulin (S) [Mass/Vol] Serum globulin measurement by calculation (mass/volume) [facility] Glucose [Mass/volume] in Ser um or PlasmaOrdered By: Parminder Powell on 04-05-2024 Glucose [Mass/Vol] Glucose [Mass/volume ] in Serum or Plasma High 70-100 [facility] Comment on above: ADA recommended refe rence rangeRandom Glucose Reference Range is dependent on time and content of last meal. Glucose of more than 200 mg/dL in a nonstressed, ambulatory subject supports the diagnosis of Diabetes Mellitus. Glucose [Mass/volume] in Uri ne by Test stripOrdered By: Parminder Powell on 04-05-2024 Glucose Test strip (U) [Mass/Vol] Glucose [Mass/volume] in Urine by Test strip High Normal [facility] Hematocrit Auto (Bld) [Volum e fraction]Ordered By: Parminder Powell on 04-05-2024 Hematocrit (Bld) [Volume fraction] Hematocrit [Volume Fraction] of Blood by Automated count 34.0-46.4 [facility] Hemoglobin Test strip Ql (U) Ordered By: Parminder Powell on 04-05-2024 Hemoglobin Ql (U) Hemoglobin [Presence ] in Urine by Test strip Negative [facility] Hemoglobin [Mass/volume] in BloodOrdered By: Parminder Powell on 04-05-2024 Hemoglobin (Bld) [Mass/Vol] Hemoglobin [Mass/volume] in Blood Low 11.8-15.4 [facility] Hyaline casts [#/area] in Ur ine sediment by Automated countOrdered By: Parmindre Powell on 04-05-2024 Hyaline casts Auto (Urine sed) [#/Area] Hyaline casts [#/area] in Urine sediment by Automated count 0-8 [facility] Ketones Test strip Ql (U)Ord ered By: Parminder Powell on 04-05-2024 Ketones Ql (U) Ketones [Presence] i n Urine by Test strip High Negative [facility] Leukocyte esterase [Presence ] in Urine by Test stripOrdered By: Parminder Powell on 04-05-2024 Leukocyte esterase Test strip Ql (U) Leukocyte esterase [Presence] in Urine by Test strip High Negative [facility] Leukocytes [#/area] in Urine sediment by Automated countOrdered By: Parminder Powell on 04-05-2024 WBC Auto (Urine sed) [#/Area] Leukocytes [#/area] in Urine sediment by Automated count 0-4 [facility] Leukocytes [#/volume] correc rossy for nucleated erythrocytes in Blood by Automated counOrdered By: Parminder Powell on 04-05-2024 WBC corrected for nucl RBC Auto (Bld) [#/Vol] Leukocytes [#/volume] corrected for nucleated erythrocytes in Blood by Automated coun High 3.8-11.6 [facility] Lipaseon 04-05-2024 Lipase [Catalytic activity/Vol] 11.0 U/L Normal 11.0-82.0 [facility] Comment on above: Result Comment: PERF ORMED BY: [facility] [address] [place] [address] PATHOLOGIST PROJECT MANAGEMENT IT SPECIALIST SARAH ANDREWS M.D. Performed By: #### R SHAKIRA PANEL UPP., BIOFIRECOVNOTDE #### [address] Lipase [Enzymatic activity/v olume] in Serum or PlasmaOrdered By: Parminder Powell on 04-05-2024 Lipase [Catalytic activity/Vol] Lipase [Enzymatic activity/volume] in Serum or Plasma 11.0-82.0 [facility] Lymphocytes Auto (Bld) [#/Vo l]Ordered By: Parminder Powell on 04-05-2024 Lymphocytes (Bld) [#/Vol] Lymphocytes [#/volume] in Blood by Automated count Low 1.00-4.8 [facility] Lymphocytes/100 WBC Auto (Bl d)Ordered By: Parminder Powell on 04-05-2024 Lymphocytes/100 WBC (Bld) Lymphocytes/100 leukocytes in Blood by Automated count . [facility] MCH Auto (RBC) [Entitic mass ]Ordered By: Parminder Powell on 04-05-2024 MCH (RBC) [Entitic mass] MCH [Entitic mass] by Automated count 24.7-34.3 [facility] MCHC Auto (RBC) [Mass/Vol]Or dered By: Parminder Powell on 04-05-2024 MCHC (RBC) [Mass/Vol] MCHC [Mass/volume] by Automated count 32.0-35.0 [facility] MCV Auto (RBC) [Entitic vol] Ordered By: Parminder Powell on 04-05-2024 MCV (RBC) [Entitic vol] MCV [Entitic volume] by Automated count 80-100 [facility] Monocyte distribution width [Entitic volume] in Blood by AutomatedOrdered By: Parminder Powell on 04-05-2024 Monocyte distribution width Auto (Bld) [Entitic vol] Monocyte distribution width [Entitic volume] in Blood by Automated 0.00-20.00 [facility] Monocytes Auto (Bld) [#/Vol] Ordered By: Parminder Powell on 04-05-2024 Monocytes (Bld) [#/Vol] Automated blood monocyte count 0.0-0.8 [facility] Monocytes/100 WBC Auto (Bld) Ordered By: Parminder Powell on 04-05-2024 Monocytes/100 WBC (Bld) Automated monocyte % . [facility] Mucus [Presence] in Urine by AutomatedOrdered By: Parminder Powell on 04-05-2024 Mucus Auto Ql (U) Mucus [Presence] in Urine by Automated [facility] Neutrophils Auto (Bld) [#/Vo l]Ordered By: Parminder Powell on 04-05-2024 Neutrophils (Bld) [#/Vol] Neutrophils [#/volume] in Blood by Automated count High 1.8-7.7 [facility] Neutrophils/100 WBC Auto (Bl d)Ordered By: Parminder Powell on 04-05-2024 Neutrophils/100 WBC (Bld) Automated neutrophil % . [facility] Nitrite Test strip Ql (U)Ord ered By: Parminder Powell on 04-05-2024 Nitrite Ql (U) Nitrite [Presence] i n Urine by Test strip Negative [facility] No Panel InformationOrdered By: Parminder Powell on 04-05-2024 Estimated GFR (CKD-EPI) > 60.0 mL/Min [facility] Creatinine Clearance (Chem 181.93 [facility] Nucleated erythrocytes [Pres ence] in Blood by Automated countOrdered By: Parminder Powell on 04-05-2024 Nucleated RBC Auto Ql (Bld) Nucleated erythrocytes [Presence] in Blood by Automated count 0-0.5 [facility] Platelet mean volume Auto (B ld) [Entitic vol]Ordered By: Parminder Powell on 04-05-2024 Platelet mean volume (Bld) [Entitic vol] Platelet mean volume [Entitic volume] in Blood by Automated count High 6.3-10.7 [facility] Platelets Auto (Bld) [#/Vol] Ordered By: Pamrinder Powell on 04-05-2024 Platelets (Bld) [#/Vol] Platelets [#/volume] in Blood by Automated count 150-450 [facility] Potassium [Moles/volume] in Serum or PlasmaOrdered By: Parminder Powell on 04-05-2024 Potassium [Moles/Vol] Potassium [Moles/v olume] in Serum or Plasma Low 3.5-5.1 [facility] Protein Test strip (U) [Mass /Vol]Ordered By: Parminder Powell on 04-05-2024 Protein (U) [Mass/Vol] Protein [Mass/volume] in Urine by Test strip Negative [facility] Protein [Mass/volume] in Ser um or PlasmaOrdered By: Parminder Powell on 04-05-2024 Protein [Mass/Vol] Protein [Mass/volume ] in Serum or Plasma 6.4-8.9 [facility] RBC Auto (Bld) [#/Vol]Ordere d By: Parminder Powell on 04-05-2024 RBC (Bld) [#/Vol] Erythrocytes [#/volu me] in Blood by Automated count 3.60-5.00 [facility] Respiratory (Upper) Panel, P CRon 04-05-2024 Respiratory (Upper) Panel, PCR Adenovirus Not detected Bordetella parapertussis Not detected Chlamydia pneumoniae Not detected Coronavirus 229E Not detected Coronavirus HKU1 Not detected Coronavirus NL63 Not detected Coronavirus OC43 Not detected Influenza A Not detected Influenza B Not detected Human Metapneumovirus Not detected Mycoplasma pneumoniae Not detected Parainfluenza Virus 1 Not detected Parainfluenza Virus 2 Not detected Parainfluenza Virus 3 Not detected Parainfluenza Virus 4 Not detected Bordetella pertussis-ptxP Not detected Human Rhino/Enterovirus Detected Resp. Syncytial Virus Not detected COVID-19 Detected/Not Detected Not detected Blank Space -- FLUA TEST INCLUDES Influenza A tests for the following clinically FLUA TEST INCLUDES significant subtypes: FLUA TEST INCLUDES - Influenza A FLUA TEST INCLUDES - Influenza A H1 FLUA TEST INCLUDES - Influenza A H1 2009 FLUA TEST INCLUDES - Influenza A H3 Blank Space -- PERFORMED BY: [facility] [place] [address] PATHOLOGIST PROJECT MANAGEMENT IT SPECIALIST SARAH ANDREWS M.D. Normal [facility] Comment on above: Performed By: #### R SHAKIRA PANEL UPP., BIOFIRECOVNOTDE #### [facility] [address] Respiratory pathogens DNA an d RNA panel - Nasopharynx by TORRES with non-probe detectionOrdered By: Parminder Powell on 04-05-2024 Respiratory pathogens DNA and RNA panel TORRES+non-probe (Nph) Respiratory pathogens DNA and RNA panel - Nasopharynx by TORRES with non-probe detection [facility] Serum or plasma albumin/glob ulin mass ratioOrdered By: Parminder Powell on 04-05-2024 Albumin/Globulin [Mass ratio] Serum or plasma albumin/globulin mass ratio [facility] Serum or plasma anion gap de terminationOrdered By: Parminder Powell on 04-05-2024 Anion gap [Moles/Vol] Serum or plasma an ion gap determination High 6.0-15.0 [facility] Sodium [Moles/volume] in Ser um or PlasmaOrdered By: Parminder Powell on 04-05-2024 Sodium [Moles/Vol] Sodium [Moles/volume ] in Serum or Plasma 136-145 [facility] Specific gravity Test strip (U) [Rel density]Ordered By: Parminder Powell on 04-05-2024 Specific gravity (U) [Rel density] Specific gravity of Urine by Test strip 1.001-1.03 0 [facility] Urea nitrogen [Mass/volume] in Serum or PlasmaOrdered By: Parminder Powell on 04-05-2024 Urea nitrogen [Mass/Vol] Urea nitrogen [Mass/volume] in Serum or Plasma 7-25 [facility] Urobilinogen Test strip (U) [Mass/Vol]Ordered By: Parminder Powell on 04-05-2024 Urobilinogen (U) [Mass/Vol] Urobilinogen [Mass/volume] in Urine by Test strip Normal [facility] WBC Auto (Bld) [#/Vol]Ordere d By: Parminder Powell on 04-05-2024 WBC (Bld) [#/Vol] Leukocytes [#/volume ] in Blood by Automated count High 3.8-11.6 [facility] pH Test strip (U)Ordered By: Parminder Powell on 04-05-2024 pH (U) pH of Urine by Test strip 5.0-9.0 [facility] BOX TESTon 04-03-2024 BOX TEST SENT OUT [facility] [address] [facility] [address] 04/03/24 [facility] HCG ( test) Ql (U)o n 03-24-2024 Interpretation and review of laboratory results Abnormal [facility] Preg Test, Ur Positive Negative [facility] US OB TRANSVAGINALon 025 US OB TRANSVAGINAL TITLE [...] x 5.5 cm (8 weeks, 6 days). [place] rump length is 2.1 cm (8 weeks, [...] UA Positive Negative - 4(70) +++ mg/dL [facility] Comment on above: small Blood, UA Negative Negative - 50 Josiah/mcL [facility] Clarity, UA Clear [facility] Color, UA Yellow [facility] Glucose, UA Negative Negative - 2000(110) ++++ mg/dL [facility] Interpretation and review of laboratory results Abnormal [facility] Ketones, UA Positive Negative - 160(16) ++++ mg/dL [facility] Comment on above: trace Leukocytes, UA Positive Negative - 500+++ Archana/mcL [facility] Comment on above: small Nitrite, UA Negative Negative - Positive [facility] pH, UA 6.5 5 - 9 [facility] Protein, UA Positive Negative - 2000(20) ++++ mg/dL [facility] Comment on above: 30 mg Spec Grav, UA 1.025 1 - 1.03 [facility] Urobilinogen, UA 1.0 0.2 - 12 mg/dL [facility] Alanine aminotransferase [En zymatic activity/volume] in Serum or PlasmaOrdered By: Surjit Stanton on 03-04-2024 ALT [Catalytic activity/Vol] Alanine aminotransferase [Enzymatic activity/volume] in Serum or Plasma [facility] Albumin [Mass/volume] in Ser um or Plasma by Bromocresol green (BCG) dye binding methoOrdered By: Surjit Stanton on 03-04-2024 Albumin BCG dye [Mass/Vol] Albumin [Mass/volume] in Serum or Plasma by Bromocresol green (BCG) dye binding metho 3.5-5.7 [facility] Alkaline phosphatase [Enzyma tic activity/volume] in Serum or PlasmaOrdered By: Surjit Stanton on 03-04-2024 ALP [Catalytic activity/Vol] Alkaline phosphatase [Enzymatic activity/volume] in Serum or Plasma Low 34-104 [facility] Anisocytosis LM Ql (Bld)Orde red By: Surjit Stanton on 03-04-2024 Anisocytosis Ql (Bld) Anisocytosis [Pres ence] in Blood by Light microscopy [facility] Appearance of UrineOrdered B y: Surjit Polancoarthy on 03-04-2024 Appearance (U) Urine appearance Clear [facility] Aspartate aminotransferase [ Enzymatic activity/volume] in Serum or PlasmaOrdered By: Surjit Romy on 03-04-2024 AST [Catalytic activity/Vol] Aspartate aminotransferase [Enzymatic activity/volume] in Serum or Plasma 39 [facility] Bacteria [Presence] in Urine by AutomatedOrdered By: Surjit Romy on 03-04-2024 Bacteria Auto Ql (U) Bacteria [Presence] in Urine by Automated None Seen [facility] Basic Metabolic Panelon 02-19 Anion gap [Moles/Vol] 12.2 mmol/L Normal 6.0-15.0 [facility] Comment on above: Performed By: #### H EPATIC, SCAN CBC, LIPASE, HCGQNT, BMP #### [facility] [address] Calcium [Mass/Vol] 9.4 mg/dL Normal 8.6-10.3 [facility] Comment on above: Performed By: #### H EPATIC, SCAN CBC, LIPASE, HCGQNT, BMP #### [facility] [address] [place] [address] [place] Chloride [Moles/Vol] 109 mmol/L High 98-107 [facility] Comment on above: Performed By: #### H EPATIC, SCAN CBC, LIPASE, HCGQNT, BMP #### [facility] [address] [place] [id number] [place] CO2 [Moles/Vol] 21.1 mmol/L Normal 21.0-31.0 [facility] Comment on above: Performed By: #### H EPATIC, SCAN CBC, LIPASE, HCGQNT, BMP #### [facility] [address] [place] [id number] [place] Creatinine [Mass/Vol] 0.60 mg/dL Normal 0.60-1.20 [facility] Comment on above: Performed By: #### H EPATIC, SCAN CBC, LIPASE, HCGQNT, BMP #### [facility] [address] [place] [id number] [place] Creatinine Clr Calc Pharmacy 122.59 Normal [facility] Comment on above: Performed By: #### H EPATIC, SCAN CBC, LIPASE, HCGQNT, BMP #### [facility] [address] [place] [address] [place] GFR/1.73 sq M.predicted MDRD (S/P/Bld) [Vol rate/Area] mL/min/{1.73_m2} Normal [facility] Comment on above: Performed By: #### H EPATIC, SCAN CBC, LIPASE, HCGQNT, BMP #### [facility] [address] Glucose [Mass/Vol] 134 mg/dL High 70-100 [facility] Comment on above: Result Comment: [facility] Glucose Reference Range is dependent on time and content of last meal. Glucose of more than 200 mg/dL in a nonstressed, ambulatory subject supports the diagnosis of Diabetes Mellitus. ADA recommended reference range Performed By: #### H EPATIC, SCAN CBC, LIPASE, HCGQNT, BMP #### [facility] [address] Potassium [Moles/Vol] 3.3 mmol/L Low 3.5-5.1 [facility] Comment on above: Performed By: #### H EPATIC, SCAN CBC, LIPASE, HCGQNT, BMP #### [facility] [address] Sodium [Moles/Vol] 139 mmol/L Normal 136-145 [facility] Comment on above: Performed By: #### H EPATIC, SCAN CBC, LIPASE, HCGQNT, BMP #### [facility] [address] Urea nitrogen [Mass/Vol] 8 mg/dL Normal 7-25 [facility] Comment on above: Performed By: #### H EPATIC, SCAN CBC, LIPASE, HCGQNT, BMP #### [facility] [address] Basophils Auto (Bld) [#/Vol] Ordered By: Surjit Stanton on 03-04-2024 Basophils (Bld) [#/Vol] Automated basophil count 0.0-0.2 [facility] Basophils/100 WBC Auto (Bld) Ordered By: Surjit Stanton on 03-04-2024 Basophils/100 WBC (Bld) Automated basophil % . [facility] Bilirubin Test strip Ql (U)O rdered By: Surjit Stanton on 03-04-2024 Bilirubin Ql (U) Bilirubin.total [Pre sence] in Urine by Test strip Negative [facility] Bilirubin.direct [Mass/volum e] in Serum or PlasmaOrdered By: Surjit Stanton on 03-04-2024 Bilirubin.direct [Mass/Vol] Bilirubin.direct [Mass/volume] in Serum or Plasma 0.03-0.18 [facility] Bilirubin.total [Mass/volume ] in Serum or PlasmaOrdered By: Surjit Stanton on 03-04-2024 Bilirubin [Mass/Vol] Bilirubin.total [Mass/volume] in Serum or Plasma 0.3-1.0 [facility] Calcium [Mass/volume] in Ser um or PlasmaOrdered By: Surjit Stanton on 03-04-2024 Calcium [Mass/Vol] Calcium [Mass/volume ] in Serum or Plasma 8.6-10.3 [facility] Carbon dioxide, total [Moles /volume] in Serum or PlasmaOrdered By: Surjit Stanton on 03-04-2024 CO2 [Moles/Vol] Carbon dioxide, tota l [Moles/volume] in Serum or Plasma 21.0-31.0 [facility] Chloride [Moles/volume] in S mayte or PlasmaOrdered By: Surjit Stanton on 03-04-2024 Chloride [Moles/Vol] Chloride [Moles/vol ume] in Serum or Plasma High 98-107 [facility] Choriogonadotropin.beta subu nit [Units/volume] in Serum or PlasmaOrdered By: Surjit Stanton on 03-04-2024 HCG.beta subunit Qn Choriogonadotropin.b eta subunit [Units/volume] in Serum or Plasma [facility] Comment on above: Approximate Approxim ate hCG Gestational Age Range (mIU/ml) (weeks)0.2-1 5-50 1-2 50-500 2-3 100-5,000 3-4 500-10,000 4-5 1,000-50,000 5-6 10,000-100,000 6-8 15,000-200,000 8-12 10,000-100,000 Color Auto (U)Ordered By: Neri Stanton on 03-04-2024 Color (U) Color of Urine by Auto Yellow [facility] Creatinine [Mass/volume] in Serum or PlasmaOrdered By: Surjit Stanton on 03-04-2024 Creatinine [Mass/Vol] Creatinine [Mass/v olume] in Serum or Plasma 0.60-1.20 [facility] Dipstick and Microscopicon 1 05-05-2023 Appearance (U) Clear Normal Clear [facility] Comment on above: Order Comment: Name Collection Type:: Clean-Voided Midstream Performed By: #### A DDONUAPLUS #### [facility] [address] [place] [address] [place] Bacteria,Urine Rare Normal None Seen [facility] Comment on above: Order Comment: Name Collection Type:: Clean-Voided Midstream Performed By: #### A DDONUAPLUS #### [facility] [address] [place] [id number] [place] Bilirubin,Urine Negative Normal Negative [facility] Comment on above: Order Comment: Name Collection Type:: Clean-Voided Midstream Performed By: #### A DDONUAPLUS #### [facility] [address] [place] [address] [place] Color (U) Light-Yellow Normal Yellow [facility] Comment on above: Order Comment: Name Collection Type:: Clean-Voided Midstream Performed By: #### A DDONUAPLUS #### [facility] [address] [place] [address] [place] Glucose Ql (U) Normal Normal Normal [facility] Comment on above: Order Comment: Name Collection Type:: Clean-Voided Midstream Performed By: #### A DDONUAPLUS #### [facility] [address] [place] [address] [place] Hyaline Casts,Urine None Normal 0-8 [facility] Comment on above: Order Comment: Name Collection Type:: Clean-Voided Midstream Performed By: #### A DDONUAPLUS #### [address] Ketones Ql (U) 2+ High Negative [facility] Comment on above: Order Comment: Name Collection Type:: Clean-Voided Midstream Performed By: #### A DDONUAPLUS #### [address] Leukocyte esterase Test strip Ql (U) Negative Normal Negative [facility] Comment on above: Order Comment: Name Collection Type:: Clean-Voided Midstream Performed By: #### A DDONUAPLUS #### [address] Mucus,Urine 2+ Critically abnormal [facility] Comment on above: Order Comment: Name Collection Type:: Clean-Voided Midstream Result Comment: PERF ORMED BY: [place] [address] PATHOLOGIST PROJECT MANAGEMENT IT SPECIALIST SARAH ANDREWS M.D. Performed By: #### A DDONUAPLUS #### [place] [address] [place] Nitrite,Urine Negative Normal Negative [facility] Comment on above: Order Comment: Name Collection Type:: Clean-Voided Midstream Performed By: #### A DDONUAPLUS #### [place] [address] [place] Occult Blood,Urine Negative Normal Negative [facility] Comment on above: Order Comment: Name Collection Type:: Clean-Voided Midstream Result Comment: PERF ORMED BY: [place] [address] PATHOLOGIST PROJECT MANAGEMENT IT SPECIALIST SARAH ANDREWS M.D. Performed By: #### A DDONUAPLUS #### [place] [address] [place] pH (U) 8.5 [pH] Normal 5.0-9.0 [facility] Comment on above: Order Comment: Name Collection Type:: Clean-Voided Midstream Performed By: #### A DDONUAPLUS #### [address] Protein (U) [Mass/Vol] 20 mg/dL High Negative [facility] Comment on above: Order Comment: Name Collection Type:: Clean-Voided Midstream Performed By: #### A DDONUAPLUS #### [address] RBC,Urine 3 [HPF] Normal 0-4 [facility] Comment on above: Order Comment: Name Collection Type:: Clean-Voided Midstream Performed By: #### A DDONUAPLUS #### [address] Specificy [place],Urine 1.023 Normal 1.001-1.03 0 [facility] Comment on above: Order Comment: Name Collection Type:: Clean-Voided Midstream Performed By: #### A DDONUAPLUS #### [address] Squamous Epithelial Cell,Urine 5 [HPF] High 0-2 [facility] Comment on above: Order Comment: Name Collection Type:: Clean-Voided Midstream Performed By: #### A DDONUAPLUS #### [address] Urobilinogen,Urine Normal Normal Normal [facility] Comment on above: Order Comment: Name Collection Type:: Clean-Voided Midstream Performed By: #### A DDONUAPLUS #### [address] WBC,Urine 1 [HPF] Normal 0-4 [facility] Comment on above: Order Comment: Name Collection Type:: Clean-Voided Midstream Performed By: #### A DDONUAPLUS #### [address] Eosinophils Auto (Bld) [#/Vo l]Ordered By: Surjit Stanton on 03-04-2024 Eosinophils (Bld) [#/Vol] Automated eosinophil count 0.0-0.45 [facility] Eosinophils/100 WBC Auto (Bl d)Ordered By: Surjit Stanton on 03-04-2024 Eosinophils/100 WBC (Bld) Automated eosinophil % . [facility] Epithelial cells.squamous [# /area] in Urine sediment by Automated countOrdered By: Surjit Stanton on 03-04-2024 Epithelial cells.squamous Auto (Urine sed) [#/Area] Epithelial cells.squamous [#/area] in Urine sediment by Automated count High 0-2 [facility] Erythrocyte distribution wid th Auto (RBC) [Ratio]Ordered By: Surjit Stanton on 03-04-2024 Erythrocyte distribution width (RBC) [Ratio] Erythrocyte distribution width [Ratio] by Automated count 11.9-15.3 [facility] Erythrocyte morphology findi ng [Identifier] in BloodOrdered By: Surjit Stanton on 03-04-2024 RBC morphology finding Nom (Bld) RBC morphology Normal [facility] Erythrocytes [#/area] in Uri ne sediment by Automated countOrdered By: Surjit Stanton on 03-04-2024 RBC Auto (Urine sed) [#/Area] Erythrocytes [#/area] in Urine sediment by Automated count 0-4 [facility] Globulin Calc (S) [Mass/Vol] Ordered By: Surjit Stanton on 03-04-2024 Globulin (S) [Mass/Vol] Serum globulin measurement by calculation (mass/volume) [facility] Glucose [Mass/volume] in Ser um or PlasmaOrdered By: Surjit Stanton on 03-04-2024 Glucose [Mass/Vol] Glucose [Mass/volume ] in Serum or Plasma High 70-100 [facility] Comment on above: ADA recommended refe rence rangeRandom Glucose Reference Range is dependent on time and content of last meal. Glucose of more than 200 mg/dL in a nonstressed, ambulatory subject supports the diagnosis of Diabetes Mellitus. Glucose [Mass/volume] in Uri ne by Test stripOrdered By: Surjit Stanton on 03-04-2024 Glucose Test strip (U) [Mass/Vol] Glucose [Mass/volume] in Urine by Test strip Normal [facility] HCG,Quantitativeon 4 HCG,Quantitative 32077.00 m[iU]/mL Normal T [facility] Comment on above: Result Comment: Appr oximate Approximate hCG Gestational Age Range (mIU/ml) (weeks) 0.2-1 5-50 1-2 50-500 2-3 100-5,000 3-4 500-10,000 4-5 1,000-50,000 5-6 10,000-100,000 6-8 15,000-200,000 8-12 10,000-100,000 PERFORMED BY: [place] [address] PATHOLOGIST PROJECT MANAGEMENT IT SPECIALIST SARAH ANDREWS M.D. Performed By: #### H EPATIC, SCAN CBC, LIPASE, HCGQNT, BMP #### [facility] [address] [place] [address] Hematocrit Auto (Bld) [Volum e fraction]Ordered By: Surjit Stanton on 03-04-2024 Hematocrit (Bld) [Volume fraction] Hematocrit [Volume Fraction] of Blood by Automated count 34.0-46.4 [facility] Hemoglobin Test strip Ql (U) Ordered By: Surjit Stanton on 03-04-2024 Hemoglobin Ql (U) Hemoglobin [Presence ] in Urine by Test strip Negative [facility] Hemoglobin [Mass/volume] in BloodOrdered By: Surjit Stanton on 03-04-2024 Hemoglobin (Bld) [Mass/Vol] Hemoglobin [Mass/volume] in Blood 11.8-15.4 [facility] Hepatic Panelon 03-04-2024 Albumin [Mass/Vol] 4.6 g/dL Normal 3.5-5.7 [facility] Comment on above: Performed By: #### H EPATIC, SCAN CBC, LIPASE, HCGQNT, BMP #### [facility] [address] [place] [address] Albumin/Globulin [Mass ratio] 1.6 {ratio} Normal [facility] Comment on above: Performed By: #### H EPATIC, SCAN CBC, LIPASE, HCGQNT, BMP #### [facility] [address] [place] [address] ALP [Catalytic activity/Vol] 32 U/L Low 34-104 [facility] Comment on above: Performed By: #### H EPATIC, SCAN CBC, LIPASE, HCGQNT, BMP #### [address] ALT [Catalytic activity/Vol] 16 U/L Normal 7-52 [facility] Comment on above: Performed By: #### H EPATIC, SCAN CBC, LIPASE, HCGQNT, BMP #### [address] AST [Catalytic activity/Vol] 14 U/L Normal 13-39 [facility] Comment on above: Performed By: #### H EPATIC, SCAN CBC, LIPASE, HCGQNT, BMP #### [address] Bilirubin [Mass/Vol] 0.7 mg/dL Normal 0.3-1.0 [facility] Comment on above: Performed By: #### H EPATIC, SCAN CBC, LIPASE, HCGQNT, BMP #### [address] Bilirubin,Indirect 0.6 mg/dL Normal [facility] Comment on above: Performed By: #### H EPATIC, SCAN CBC, LIPASE, HCGQNT, BMP #### [address] Bilirubin.indirect [Mass/Vol] 0.10 mg/dL Normal 0.03-0.18 [facility] Comment on above: Performed By: #### H EPATIC, SCAN CBC, LIPASE, HCGQNT, BMP #### [place] [address] [place] Globulin (S) [Mass/Vol] 2.9 g/dL Normal [facility] Comment on above: Performed By: #### H EPATIC, SCAN CBC, LIPASE, HCGQNT, BMP #### [address] Protein [Mass/Vol] 7.5 g/dL Normal 6.4-8.9 [facility] Comment on above: Performed By: #### H EPATIC, SCAN CBC, LIPASE, HCGQNT, BMP #### [facility] [address] [place] [address] [place] Hyaline casts [#/area] in Ur ine sediment by Automated countOrdered By: Surjit Stanton on 03-04-2024 Hyaline casts Auto (Urine sed) [#/Area] Hyaline casts [#/area] in Urine sediment by Automated count 0-8 [facility] Ketones Test strip Ql (U)Ord ered By: Surjit Stanton on 03-04-2024 Ketones Ql (U) Ketones [Presence] i n Urine by Test strip High Negative [facility] Leukocyte esterase [Presence ] in Urine by Test stripOrdered By: Surjit Stanton on 03-04-2024 Leukocyte esterase Test strip Ql (U) Leukocyte esterase [Presence] in Urine by Test strip Negative [facility] Leukocytes [#/area] in Urine sediment by Automated countOrdered By: Surjit Stanton on 03-04-2024 WBC Auto (Urine sed) [#/Area] Leukocytes [#/area] in Urine sediment by Automated count 0-4 [facility] Leukocytes [#/volume] correc rossy for nucleated erythrocytes in Blood by Automated counOrdered By: Surjit Stanton on 03-04-2024 WBC corrected for nucl RBC Auto (Bld) [#/Vol] Leukocytes [#/volume] corrected for nucleated erythrocytes in Blood by Automated coun 3.8-11.6 [facility] Lipaseon 03-04-2024 Lipase [Catalytic activity/Vol] 15.0 U/L Normal 11.0-82.0 [facility] Comment on above: Performed By: #### H EPATIC, SCAN CBC, LIPASE, HCGQNT, BMP #### [facility] [address] [place] [address] [place] Lipase [Enzymatic activity/v olume] in Serum or PlasmaOrdered By: Surjit Stanton on 03-04-2024 Lipase [Catalytic activity/Vol] Lipase [Enzymatic activity/volume] in Serum or Plasma 11.0-82.0 [facility] Lymphocytes Auto (Bld) [#/Vo l]Ordered By: Surjit Stanton on 03-04-2024 Lymphocytes (Bld) [#/Vol] Lymphocytes [#/volume] in Blood by Automated count 1.00-4.8 [facility] Lymphocytes/100 WBC Auto (Bl d)Ordered By: Surjit Stanton on 03-04-2024 Lymphocytes/100 WBC (Bld) Lymphocytes/100 leukocytes in Blood by Automated count . [facility] MCH Auto (RBC) [Entitic mass ]Ordered By: Surjit Stanton on 03-04-2024 MCH (RBC) [Entitic mass] MCH [Entitic mass] by Automated count 24.7-34.3 [facility] MCHC Auto (RBC) [Mass/Vol]Or dered By: Surjit Stanton on 03-04-2024 MCHC (RBC) [Mass/Vol] MCHC [Mass/volume] by Automated count 32.0-35.0 [facility] MCV Auto (RBC) [Entitic vol] Ordered By: Surjit Stanton on 03-04-2024 MCV (RBC) [Entitic vol] MCV [Entitic volume] by Automated count 80-100 [facility] Microcytes LM Ql (Bld)Ordere d By: Surjit Stanton on 03-04-2024 Microcytes Ql (Bld) Microcytes [Presence ] in Blood by Light microscopy [facility] Monocyte distribution width [Entitic volume] in Blood by AutomatedOrdered By: Surjit Stanton on 03-04-2024 Monocyte distribution width Auto (Bld) [Entitic vol] Monocyte distribution width [Entitic volume] in Blood by Automated 0.00-20.00 [facility] Monocytes Auto (Bld) [#/Vol] Ordered By: Surjit Stanton on 03-04-2024 Monocytes (Bld) [#/Vol] Automated blood monocyte count 0.0-0.8 [facility] Monocytes/100 WBC Auto (Bld) Ordered By: Sujrit Stanton on 03-04-2024 Monocytes/100 WBC (Bld) Automated monocyte % . [facility] Mucus [Presence] in Urine by AutomatedOrdered By: Surjit Stanton on 03-04-2024 Mucus Auto Ql (U) Mucus [Presence] in Urine by Automated Abnormal [facility] Neutrophils Auto (Bld) [#/Vo l]Ordered By: Surjit Stanton on 03-04-2024 Neutrophils (Bld) [#/Vol] Neutrophils [#/volume] in Blood by Automated count 1.8-7.7 [facility] Neutrophils/100 WBC Auto (Bl d)Ordered By: Surjit Stanton on 03-04-2024 Neutrophils/100 WBC (Bld) Automated neutrophil % . [facility] Nitrite Test strip Ql (U)Ord ered By: Surjit Stanton on 03-04-2024 Nitrite Ql (U) Nitrite [Presence] i n Urine by Test strip Negative [facility] No Panel InformationOrdered By: Surjit Stanton on 03-04-2024 Estimated GFR (CKD-EPI) > 60.0 mL/Min [facility] Creatinine Clearance (Chem 122.59 [facility] Nucleated erythrocytes [Pres ence] in Blood by Automated countOrdered By: Surjit Stanton on 03-04-2024 Nucleated RBC Auto Ql (Bld) Nucleated erythrocytes [Presence] in Blood by Automated count 0-0.5 [facility] Platelet adequacy [Presence] in Blood by Light microscopyOrdered By: Surjit Stanton on 03-04-2024 Platelets LM Ql (Bld) Platelet adequacy [Presence] in Blood by Light microscopy Normal [facility] Platelet mean volume Auto (B ld) [Entitic vol]Ordered By: Surjit Stanton on 03-04-2024 Platelet mean volume (Bld) [Entitic vol] Platelet mean volume [Entitic volume] in Blood by Automated count High 6.3-10.7 [facility] Platelet morphology finding [Identifier] in BloodOrdered By: Surjit Stanton on 03-04-2024 Platelet morphology finding Nom (Bld) Platelet morphology finding [Identifier] in Blood Normal [facility] Platelets Auto (Bld) [#/Vol] Ordered By: Surjit Stanton on 03-04-2024 Platelets (Bld) [#/Vol] Platelets [#/volume] in Blood by Automated count 150-450 [facility] Potassium [Moles/volume] in Serum or PlasmaOrdered By: Surjit Stanton on 03-04-2024 Potassium [Moles/Vol] Potassium [Moles/v olume] in Serum or Plasma Low 3.5-5.1 [facility] Protein Test strip (U) [Mass /Vol]Ordered By: Surjit Stanton on 03-04-2024 Protein (U) [Mass/Vol] Protein [Mass/volume] in Urine by Test strip High Negative [facility] Protein [Mass/volume] in Ser um or PlasmaOrdered By: Surjit Stanton on 03-04-2024 Protein [Mass/Vol] Protein [Mass/volume ] in Serum or Plasma 6.4-8.9 [facility] RBC Auto (Bld) [#/Vol]Ordere d By: Surjit Stanton on 03-04-2024 RBC (Bld) [#/Vol] Erythrocytes [#/volu me] in Blood by Automated count 3.60-5.00 [facility] Scan and CBCon 03-04-2024 Anisocytosis Ql (Bld) Slight Normal [facility] Comment on above: Performed By: #### H EPATIC, SCAN CBC, LIPASE, HCGQNT, BMP #### [place] [address] [place] Basophils (Bld) [#/Vol] 0.0 10*3/uL Normal 0.0-0.2 [facility] Comment on above: Performed By: #### H EPATIC, SCAN CBC, LIPASE, HCGQNT, BMP #### [facility] [address] [place] [address] [place] Basophils/100 WBC (Bld) 0.6 % Normal . [facility] Comment on above: Performed By: #### H EPATIC, SCAN CBC, LIPASE, HCGQNT, BMP #### [place] [address] [place] Eosinophils (Bld) [#/Vol] 0.0 10*3/uL Normal 0.0-0.45 [facility] Comment on above: Performed By: #### H EPATIC, SCAN CBC, LIPASE, HCGQNT, BMP #### [place] [address] [place] Eosinophils/100 WBC (Bld) 0.2 % Normal . [facility] Comment on above: Performed By: #### H EPATIC, SCAN CBC, LIPASE, HCGQNT, BMP #### [address] Erythrocyte distribution width (RBC) [Ratio] 14.6 % Normal 11.9-15.3 [facility] Comment on above: Performed By: #### H EPATIC, SCAN CBC, LIPASE, HCGQNT, BMP #### [address] Hematocrit (Bld) [Volume fraction] 38.2 % Normal 34.0-46.4 [facility] Comment on above: Performed By: #### H EPATIC, SCAN CBC, LIPASE, HCGQNT, BMP #### [address] Hemoglobin (Bld) [Mass/Vol] 12.9 g/dL Normal 11.8-15.4 [facility] Comment on above: Performed By: #### H EPATIC, SCAN CBC, LIPASE, HCGQNT, BMP #### [address] Lymphocytes (Bld) [#/Vol] 1.3 10*3/uL Normal 1.00-4.8 [facility] Comment on above: Performed By: #### H EPATIC, SCAN CBC, LIPASE, HCGQNT, BMP #### [address] Lymphocytes/100 WBC (Bld) 17.1 % Normal . [facility] Comment on above: Performed By: #### H EPATIC, SCAN CBC, LIPASE, HCGQNT, BMP #### [address] MCH (RBC) [Entitic mass] 29.4 pg Normal 24.7-34.3 [facility] Comment on above: Performed By: #### H EPATIC, SCAN CBC, LIPASE, HCGQNT, BMP #### [address] MCV (RBC) [Entitic vol] 86.9 fL Normal 80-100 [facility] Comment on above: Performed By: #### H EPATIC, SCAN CBC, LIPASE, HCGQNT, BMP #### [address] Mean Corpuscular HGB Conc 33.8 g/dL Normal 32.0-35.0 [facility] Comment on above: Performed By: #### H EPATIC, SCAN CBC, LIPASE, HCGQNT, BMP #### [address] Microcytosis Slight Normal [facility] Comment on above: Performed By: #### H EPATIC, SCAN CBC, LIPASE, HCGQNT, BMP #### [address] Monocytes (Bld) [#/Vol] 0.3 10*3/uL Normal 0.0-0.8 [facility] Comment on above: Performed By: #### H EPATIC, SCAN CBC, LIPASE, HCGQNT, BMP #### [address] Monocytes/100 WBC (Bld) 15.87 % Normal 0.00-20.00 [facility] Comment on above: Performed By: #### H EPATIC, SCAN CBC, LIPASE, HCGQNT, BMP #### [address] Monocytes/100 WBC (Bld) 4.4 % Normal . [facility] Comment on above: Performed By: #### H EPATIC, SCAN CBC, LIPASE, HCGQNT, BMP #### [address] Neutrophils (Bld) [#/Vol] 6.0 10*3/uL Normal 1.8-7.7 [facility] Comment on above: Performed By: #### H EPATIC, SCAN CBC, LIPASE, HCGQNT, BMP #### [address] Neutrophils/100 WBC (Bld) 77.7 % Normal . [facility] Comment on above: Performed By: #### H EPATIC, SCAN CBC, LIPASE, HCGQNT, BMP #### [address] NRBC% 0.0 /100{WBC} Normal 0-0.5 [facility] Comment on above: Performed By: #### H EPATIC, SCAN CBC, LIPASE, HCGQNT, BMP #### [address] Platelet Estimate Normal Normal Normal [facility] Comment on above: Performed By: #### H EPATIC, SCAN CBC, LIPASE, HCGQNT, BMP #### [address] Platelet mean volume (Bld) [Entitic vol] 11.5 fL High 6.3-10.7 [facility] Comment on above: Performed By: #### H EPATIC, SCAN CBC, LIPASE, HCGQNT, BMP #### [address] Platelet Morphology Normal Normal Normal [facility] Comment on above: Result Comment: PERF ORMED BY: [place] [address] PATHOLOGIST PROJECT MANAGEMENT IT SPECIALIST SARAH ANDREWS M.D. Performed By: #### H EPATIC, SCAN CBC, LIPASE, HCGQNT, BMP #### [address] Platelets (Bld) [#/Vol] 182 10*3/uL Normal 150-450 [facility] Comment on above: Performed By: #### H EPATIC, SCAN CBC, LIPASE, HCGQNT, BMP #### [address] RBC (Bld) [#/Vol] 4.40 10*6/uL Normal 3.60-5.00 [facility] Comment on above: Performed By: #### H EPATIC, SCAN CBC, LIPASE, HCGQNT, BMP #### [address] [place] [address] [place] RBC morphology finding Nom (Bld) Normal Normal Normal [facility] Comment on above: Performed By: #### H EPATIC, SCAN CBC, LIPASE, HCGQNT, BMP #### [facility] [address] WBC (Bld) [#/Vol] 7.7 10*3/uL Normal 3.8-11.6 [facility] Comment on above: Performed By: #### H EPATIC, SCAN CBC, LIPASE, HCGQNT, BMP #### [facility] [address] Serum or plasma albumin/glob ulin mass ratioOrdered By: Surjit Stanton on 03-04-2024 Albumin/Globulin [Mass ratio] Serum or plasma albumin/globulin mass ratio [facility] Serum or plasma anion gap de terminationOrdered By: Surjit Stanton on 03-04-2024 Anion gap [Moles/Vol] Serum or plasma an ion gap determination 6.0-15.0 [facility] Serum or plasma non-glucuron idated bilirubin measurement (mass/volume)Ordered By: Surjit Stanton on 03-04-2024 Bilirubin.indirect [Mass/Vol] Serum or plasma non-glucuronidated bilirubin measurement (mass/volume) [facility] Sodium [Moles/volume] in Ser um or PlasmaOrdered By: Surjit Stanton on 03-04-2024 Sodium [Moles/Vol] Sodium [Moles/volume ] in Serum or Plasma 136-145 [facility] Specific gravity Test strip (U) [Rel density]Ordered By: Surjit Stanton on 03-04-2024 Specific gravity (U) [Rel density] Specific gravity of Urine by Test strip 1.001-1.03 0 [facility] Urea nitrogen [Mass/volume] in Serum or PlasmaOrdered By: Surjit Stanton on 03-04-2024 Urea nitrogen [Mass/Vol] Urea nitrogen [Mass/volume] in Serum or Plasma 7-25 [facility] Urobilinogen Test strip (U) [Mass/Vol]Ordered By: Surjit Stanton on 03-04-2024 Urobilinogen (U) [Mass/Vol] Urobilinogen [Mass/volume] in Urine by Test strip Normal [facility] WBC Auto (Bld) [#/Vol]Ordere d By: Surjit Stanton on 03-04-2024 WBC (Bld) [#/Vol] Leukocytes [#/volume ] in Blood by Automated count 3.8-11.6 [facility] pH Test strip (U)Ordered By: Surjit Stanton on 03-04-2024 pH (U) pH of Urine by Test strip 5.0-9.0 [facility] CT cervical spine wo conon 0 11-25-2023 CT cervical spine wo con [facility] [place] [address] CT Scan Report Signed Patient: Nicole Farris MR#: [id number] : 1995 Acct:[id number] Age/Sex: 28 / F ADM Date: 11/25/23 Loc: ER Room: Type: [facility] ER Attending Dr: Copies to: Vianney Genao APRN Ordering Provider: Vianney Genao APRN Date of Service: 11/25/23 CT/CT cervical spine wo con: increased pain ([id number]) CT/CT head/brain wo con: pain CLINICAL DATA: [...] Priscila Barbosa M.D.11/25/2023 7:01 PM Dictation Location: [place] [address] Transcribed By: [facility] 11/25/231900 Dictated By: Priscila Barbosa MD 11/25/231852 Signed By: 11/25/231900 Normal [facility] XR CERVICAL SPINE 2-3 VIEWSo [...] [Catalytic activity/Vol] 47 U/L Normal 7-52 U/L [facility] Albumin [Mass/volume] in Ser um or Plasma by Bromocresol green (BCG) dye binding methoOrdered By: Adin Gan on 06-04-2022 Albumin BCG dye [Mass/Vol] 4.9 g/dL 3.5-5.7 [facility] Alkaline phosphatase [Enzyma tic activity/volume] in Serum or PlasmaOrdered By: Adin Gan on 06-04-2022 ALP [Catalytic activity/Vol] 104 U/L Normal 34-104 U/L [facility] Aspartate aminotransferase [ Enzymatic activity/volume] in Serum or PlasmaOrdered By: Adin Gan on 06-04-2022 AST [Catalytic activity/Vol] 23 U/L Normal 13-39 U/L [facility] Bilirubin.total [Mass/volume ] in Serum or PlasmaOrdered By: Adin Gan on 06-04-2022 Bilirubin [Mass/Vol] 0.5 mg/dL 0.3-1.0 [facility] Calcium [Mass/volume] in Ser um or PlasmaOrdered By: Adin Gan on 06-04-2022 Calcium [Mass/Vol] 9.7 mg/dL 8.6-10.3 [facility] Carbon dioxide, total [Moles /volume] in Serum or PlasmaOrdered By: Adin Gan on 06-04-2022 CO2 [Moles/Vol] 27.2 mmol/L 21.0-31.0 [facility] Chloride [Moles/volume] in S mayte or PlasmaOrdered By: Adin Gan on 06-04-2022 Chloride [Moles/Vol] 104 mmol/L Normal 98-107 mmol/L [facility] Comprehensive Metabolic Pane blanquita 06-04-2022 Albumin [Mass/Vol] 4.082429 g/dL Normal 3.5-5.7 g/dL [facility] Other Bilirubin [Mass/Vol] 0.6583546 mg/dL Normal 0.3- 1.0 mg/dL [facility] Other Calcium [Mass/Vol] 9.2622073 mg/dL Normal 8.6-10 .3 mg/dL [facility] Other CO2 [Moles/Vol] 27.88230647 mmol/L Normal 21.0-3 1.0 mmol/L [facility] Other Creatinine [Mass/Vol] 0.65700698 mg/dL Normal 0. 60-1.20 mg/dL [facility] Other Potassium [Moles/Vol] 4.13222534 mmol/L Normal 3 .5-5.1 mmol/L [facility] Other Protein [Mass/Vol] 7.884502 g/dL Normal 6.4-8.9 g/dL [facility] Other Comprehensive Metabolic Panel 3.0 g/dL [facility] Other Creatinine [Mass/volume] in Serum or PlasmaOrdered By: Adin Gan on 06-04-2022 Creatinine [Mass/Vol] 0.71 mg/dL 0.60-1.20 [facility] Erythrocyte distribution wid th Auto (RBC) [Ratio]Ordered By: Adin Gan on 06-04-2022 Erythrocyte distribution width (RBC) [Ratio] 13.5 % 11.9-15.3 [facility] Erythrocytes [#/volume] in B lood by Automated countOrdered By: Adin Gan on 06-04-2022 RBC (Bld) [#/Vol] 4.44 10*6/uL Normal 3.60-5.00 [facility] Globulin Calc (S) [Mass/Vol] Ordered By: Adin Gan on 06-04-2022 Globulin (S) [Mass/Vol] 3.0 g/dL [facility] Glucose [Mass/volume] in Ser um or PlasmaOrdered By: Adin Gan on 06-04-2022 Glucose [Mass/Vol] 89 mg/dL Normal 74-109 mg/dL [facility] Comment on above: ADA recommended refe rence rangeRandom Glucose Reference Range is dependent on time and content of last meal. Glucose of more than 200 mg/dL in a nonstressed, ambulatory subject supports the diagnosis of Diabetes Mellitus. Hematocrit Auto (Bld) [Volum e fraction]Ordered By: Adin Gan on 06-04-2022 Hematocrit (Bld) [Volume fraction] 38.5 % 34.0-46.4 [facility] Hemoglobin [Mass/volume] in BloodOrdered By: Adin Gan on 06-04-2022 Hemoglobin (Bld) [Mass/Vol] 12.8 g/dL 11.8-15.4 [facility] Hemogram CBC Without Diffon 06-04-2022 Erythrocyte distribution width (RBC) [Ratio] 13.500 % Normal 11.9-15.3 % [facility] Other Hematocrit (Bld) [Volume fraction] 38.500 % Normal 34.0-46.4 % [facility] Other Hemoglobin (Bld) [Mass/Vol] 12.735895 g/dL Normal 11.8-15.4 g/dL [facility] Other MCH (RBC) [Entitic mass] 28.7000 pg Normal 24.7-34.3 pg [facility] Other MCV (RBC) [Entitic vol] 86.7000 fL Normal 80-100 fL [facility] Other Platelet mean volume (Bld) [Entitic vol] 11.1000 fL High 6.3-10.7 fL [facility] Other WBC (Bld) [#/Vol] 6.040800100 10*3/uL Normal 3.8 -11.6 10*3/uL [facility] Other Hemogram CBC Without Diff 33.1 g/dL Normal 32.0-35.0 g/dL [facility] Other Laboratory - Chemistry and C hemistry - challengeOrdered By: Adin Gan on 06-04-2022 GFR/1.73 sq M.predicted MDRD (S/P/Bld) [Vol rate/Area] mL/min/{1.73_m2} [facility] Leukocytes [#/volume] correc rossy for nucleated erythrocytes in Blood by Automated counOrdered By: Adin Gan on 06-04-2022 WBC corrected for nucl RBC Auto (Bld) [#/Vol] 6.6 10*3/uL 3.8-11.6 [facility] MCH Auto (RBC) [Entitic mass ]Ordered By: Adin Gan on 06-04-2022 MCH (RBC) [Entitic mass] 28.7 pg 24.7-34.3 [facility] MCHC Auto (RBC) [Mass/Vol]Or dered By: Adin Gan on 06-04-2022 MCHC (RBC) [Mass/Vol] 33.1 g/dL 32.0-35.0 [facility] MCV Auto (RBC) [Entitic vol] Ordered By: Adin Gan on 06-04-2022 MCV (RBC) [Entitic vol] 86.7 fL 80-100 [facility] No Panel InformationOrdered By: Adin Gan on 06-04-2022 Pharmacy Creatinine Clearance (Chem N/A [facility] Platelet mean volume Auto (B ld) [Entitic vol]Ordered By: Adin Gan on 06-04-2022 Platelet mean volume (Bld) [Entitic vol] 11.1 fL 6.3-10.7 [facility] Platelets [#/volume] in Bloo d by Automated countOrdered By: Adin Gan on 06-04-2022 Platelets (Bld) [#/Vol] 196 10*3/uL Normal 150-450 10*3/uL [facility] Potassium [Moles/volume] in Serum or PlasmaOrdered By: Adin Gan on 06-04-2022 Potassium [Moles/Vol] 4.1 mmol/L 3.5-5.1 [facility] Protein [Mass/volume] in Ser um or PlasmaOrdered By: Adin Gan on 06-04-2022 Protein [Mass/Vol] 7.9 g/dL 6.4-8.9 [facility] Serum or plasma albumin/glob ulin mass ratioOrdered By: Adin Gan on 06-04-2022 Albumin/Globulin [Mass ratio] 1.6 {ratio} [facility] Serum or plasma anion gap de terminationOrdered By: Adin Gan on 06-04-2022 Anion gap [Moles/Vol] 12.9 mmol/L 6.0-15.0 [facility] Sodium [Moles/volume] in Ser um or PlasmaOrdered By: Adin Gan on 06-04-2022 Sodium [Moles/Vol] 140 mmol/L Normal 136-145 mmol/L [facility] Thyroid Stim Hormone w/Rflxo n 06-04-2022 Thyroid Stim Hormone w/Rflx 0.93 u[iU]/mL Normal 0.45-5.33 u[iU]/mL [facility] Other Thyrotropin [Units/volume] i n Serum or PlasmaOrdered By: Adin Gan on 06-04-2022 TSH Qn 0.93 m[IU]/L 0.45-5.33 [facility] Urea nitrogen [Mass/volume] in Serum or PlasmaOrdered By: Adin Gan on 06-04-2022 Urea nitrogen [Mass/Vol] 15 mg/dL Normal 7-25 mg/dL [facility] PAP ACOG PANEL 2: 21 to 29on 02-24-2022 . . Normal [facility] Comment on above: Performed By: #### [id number] #### [facility] [address] [place] [address] Dr. Lilia Calvillo Age Gdln ACOG Testing 19- [facility] Comment on above: Performed By: #### [id number] #### [facility] [address] [place] [address] Dr. Lilia Calvillo DIAGNOSIS: Comment [facility] Comment on above: Result Comment: NEGA TIVE FOR INTRAEPITHELIAL LESION OR MALIGNANCY. Performed By: #### [id number] #### [facility] [address] [place] [address] Dr. Lilia Calvillo Methodology: Comment [facility] Comment on above: Result Comment: This liquid based ThinPrep(R) pap test was screened with the use of an image guided system. Performed By: #### [id number] #### [facility] [address] [place] [address] Dr. Lilia Calvillo Note: Comment [facility] Comment on above: Result Comment: The Pap smear is a screening test designed to aid in the detection of premalignant and malignant conditions of the uterine cervix. It is not a diagnostic procedure and should not be used as the sole means of detecting cervical cancer. Both false-positive and false-negative reports do occur. . Performed By: #### [id number] #### [facility] [address] [place] [address] Dr. Lilia Calvillo Performed by: Comment Normal [facility] Comment on above: Result Comment: Philippe Garcia Plastic Cnc Machine Operator (ASCP) Performed By: #### [id number] #### [facility] [address] [place] [address] Dr. Lilia Calvillo Reflex Criteria: Comment Normal [facility] Comment on above: Result Comment: The HPV DNA reflex criteria were not met with this specimen result therefore, no HPV testing was performed. . Performed By: #### [id number] #### [facility] [address] [place] [address] Dr. Lilia Calvillo Specimen adequacy: Comment Normal [facility] Comment on above: Result Comment: Sati sfactory for evaluation. No endocervical component is identified. Performed By: #### [id number] #### [facility] [address] [place] [address] Dr. Lilia Calvillo CBC AUTO DIFFon 10-17-2021 BASO # 0.0 103/ul Normal 0.0-0.1 [facility] Comment on above: Performed By: #### C BC #### [facility] [address] [place] [address] Dr. Lilia Calvillo Basophils/100 WBC (Bld) 0.4 % Normal 0.2-2.0 [facility] Comment on above: Performed By: #### C BC #### [facility] [address] [place] [address] Dr. Lilia Calvillo EO # 0.2 103/ul Normal 0.0-0.7 [facility] Comment on above: Performed By: #### C BC #### [facility] [address] [place] [address] Dr. Lilia Calvillo Eosinophils/100 WBC (Bld) 2.1 % Normal 0.9-7.0 [facility] Comment on above: Performed By: #### C BC #### [facility] [address] [place] [address] Dr. Lilia Calvillo Erythrocyte distribution width (RBC) [Ratio] 14.4 % Normal 11.0-15.0 [facility] Comment on above: Performed By: #### C BC #### [facility] [address] [place] [address] Dr. Lilia Calvillo Hematocrit (Bld) [Volume fraction] 27.2 % Critically low 36.0-48.0 [facility] Comment on above: Performed By: #### C BC #### [facility] [address] [place] [address] [address] Lilia Calvillo Hemoglobin (Bld) [Mass/Vol] 9.0 g/dL Critically low 12.0-16.0 [facility] Comment on above: Performed By: #### C BC #### [facility] [address] [place] [address] [address] Lilia Calvillo IG # 0.03 10e3/ul Normal 0.00-0.03 [facility] Comment on above: Performed By: #### C BC #### [facility] [address] [place] [address] Dr. Lilia Calvillo IG % 0.4 % Normal 0.0-0.5 [facility] Comment on above: Performed By: #### C BC #### [facility] [address] [place] [address] Dr. Lilia Calvillo LYMPH # 1.6 103/ul Normal 1.2-3.8 [facility] Comment on above: Performed By: #### C BC #### [facility] [address] [place] [address] Dr. Lilia Calvillo Lymphocytes/100 WBC (Bld) 20.2 % Critically low 20.5-60.0 [facility] Comment on above: Performed By: #### C BC #### [facility] [address] [place] [address] Dr. Lilia Calvillo MANUAL DIFF REQ NO Normal [facility] Comment on above: Performed By: #### C BC #### [facility] [address] [place] [address] Dr. Lilia Calvillo MCH (RBC) [Entitic mass] 29.3 pg Normal 26.7-34.0 [facility] Comment on above: Performed By: #### C BC #### [facility] [address] [place] [address] Dr. Lilia Calvillo MCHC (RBC) [Mass/Vol] 33.1 g/dL Normal 29.9-35.2 [facility] Comment on above: Performed By: #### C BC #### [facility] [address] [place] [address] [address] Lilia Calvillo MCV (RBC) [Entitic vol] 88.6 fL Normal 81.0-99.0 [facility] Comment on above: Performed By: #### C BC #### [facility] [address] [place] [address] [address] Lilia Calvillo MONO # 0.5 103/ul Normal 0.3-0.8 [facility] Comment on above: Performed By: #### C BC #### [facility] [address] [place] [address] [address] Lilia Calvillo Monocytes/100 WBC (Bld) 5.7 % Normal 1.7-12.0 [facility] Comment on above: Performed By: #### C BC #### [facility] [address] [place] [address] Dr. Lilia Calvillo NEUT # 5.8 103/ul Normal 1.4-6.5 [facility] Comment on above: Performed By: #### C BC #### [facility] [address] [place] [address] Dr. Lilia Calvillo Neutrophils/100 WBC (Bld) 71.2 % Normal 43.0-75.0 [facility] Comment on above: Performed By: #### C BC #### [facility] [address] [place] [address] Dr. Lilia Calvillo Platelet mean volume (Bld) [Entitic vol] 13.1 fL Normal 9.5-13.5 [facility] Comment on above: Performed By: #### C BC #### [facility] [address] [place] [address] Dr. Lilia Calvillo PLT 109 103/ul Critically low 150-450 [facility] Comment on above: Performed By: #### C BC #### [facility] [address] [address] [address] Lilia Calvillo RBC 3.07 106/ul Critically low 4.20-5.40 [facility] Comment on above: Performed By: #### C BC #### [facility] [address] [place] [address] Dr. Lilia Calvillo WBC 8.1 103/ul Normal 4.0-11.0 [facility] Comment on above: Performed By: #### C BC #### [facility] [address] [place] [address] Dr. Lilia Calvillo CBC AUTO DIFFon 10-16-2021 BASO # 0.0 103/ul Normal 0.0-0.1 [facility] Comment on above: Performed By: #### G TT3P #### [facility] [address] [place] [address] Dr. Lilia Calvillo Basophils/100 WBC (Bld) 0.2 % Normal 0.2-2.0 [facility] Comment on above: Performed By: #### G TT3P #### [facility] [address] [place] [address] Dr. Lilia Calvillo EO # 0.1 103/ul Normal 0.0-0.7 [facility] Comment on above: Performed By: #### G TT3P #### [facility] [address] [place] [address] Dr. Lilia Calvillo Eosinophils/100 WBC (Bld) 0.6 % Critically low 0.9-7.0 [facility] Comment on above: Performed By: #### G TT3P #### [facility] [address] [place] [address] Dr. Lilia Calvillo Erythrocyte distribution width (RBC) [Ratio] 14.5 % Normal 11.0-15.0 [facility] Comment on above: Performed By: #### G TT3P #### [facility] [address] [place] [address] Dr. Lliia Calvillo Hematocrit (Bld) [Volume fraction] 36.2 % Normal 36.0-48.0 [facility] Comment on above: Performed By: #### G TT3P #### [facility] [address] [place] [address] Dr. Lilia Calvillo Hemoglobin (Bld) [Mass/Vol] 11.8 g/dL Critically low 12.0-16.0 [facility] Comment on above: Performed By: #### G TT3P #### [facility] [address] [address] [address] Lilia Calvillo IG # 0.05 10e3/ul Critically high 0.00-0.03 [facility] Comment on above: Performed By: #### G TT3P #### [facility] [address] [address] [address] Lilia Calvillo IG % 0.5 % Normal 0.0-0.5 [facility] Comment on above: Performed By: #### G TT3P #### [facility] [address] [address] [address] Lilia Calvillo LYMPH # 2.0 103/ul Normal 1.2-3.8 [facility] Comment on above: Performed By: #### G TT3P #### [facility] [address] [place] [address] Dr. Lilia Calvillo Lymphocytes/100 WBC (Bld) 20.7 % Normal 20.5-60.0 [facility] Comment on above: Performed By: #### G TT3P #### [facility] [address] [place] [address] Dr. Lilia Calvillo MANUAL DIFF REQ NO Normal [facility] Comment on above: Performed By: #### G TT3P #### [facility] [address] [place] [address] Dr. Lilia Calvillo MCH (RBC) [Entitic mass] 28.7 pg Normal 26.7-34.0 [facility] Comment on above: Performed By: #### G TT3P #### [facility] [address] [place] [address] Dr. Lilia Calvillo MCHC (RBC) [Mass/Vol] 32.6 g/dL Normal 29.9-35.2 [facility] Comment on above: Performed By: #### G TT3P #### [facility] [address] [place] [address] Dr. Lilia Calvillo MCV (RBC) [Entitic vol] 88.1 fL Normal 81.0-99.0 [facility] Comment on above: Performed By: #### G TT3P #### [facility] [address] [address] [address] Lilia Calvillo MONO # 0.5 103/ul Normal 0.3-0.8 [facility] Comment on above: Performed By: #### G TT3P #### [facility] [address] [address] [address] Lilia Calvillo Monocytes/100 WBC (Bld) 5.7 % Normal 1.7-12.0 [facility] Comment on above: Performed By: #### G TT3P #### [facility] [address] [address] [address] Lilia Calvillo NEUT # 6.8 103/ul Critically high 1.4-6.5 [facility] Comment on above: Performed By: #### G TT3P #### [facility] [address] [place] [address] Dr. Lilia Calvillo Neutrophils/100 WBC (Bld) 72.3 % Normal 43.0-75.0 [facility] Comment on above: Performed By: #### G TT3P #### [facility] [address] [place] [address] Dr. Lilia Calvillo Platelet mean volume (Bld) [Entitic vol] 13.2 fL Normal 9.5-13.5 [facility] Comment on above: Performed By: #### G TT3P #### [facility] [address] [address] [address] Lilia Calvillo PLT 130 103/ul Critically low 150-450 [facility] Comment on above: Performed By: #### G TT3P #### [facility] [address] [address] [address] Lilia Calvillo RBC 4.11 106/ul Critically low 4.20-5.40 [facility] Comment on above: Performed By: #### G TT3P #### [facility] [address] [address] [address] Lilia Calvillo WBC 9.5 103/ul Normal 4.0-11.0 [facility] Comment on above: Performed By: #### G TT3P #### [facility] [address] [address] [address] Lilia Calvillo DRUG SCREEN RAPID (URINE)on 10-16-2021 AMP Negative Normal NEGATIVE [facility] Comment on above: Performed By: #### G TT3P #### [facility] [address] [address] [address] Lilia Calvillo BAR Negative Normal NEGATIVE [facility] Comment on above: Performed By: #### G TT3P #### [facility] [address] [address] [address] Lilia Calvillo BUP Negative Normal NEGATIVE [facility] Comment on above: Performed By: #### G TT3P #### [facility] [address] [place] [address] Dr. Lilia Calvillo BZO Negative Normal NEGATIVE [facility] Comment on above: Performed By: #### G TT3P #### [facility] [address] [place] [address] Dr. Lilia Calvillo LAWANDA Negative Normal NEGATIVE [facility] Comment on above: Performed By: #### G TT3P #### [facility] [address] [place] [address] Dr. Lilia Calvillo CUT-OFFS SEE BELOW Normal [facility] Comment on above: Result Comment: AMP (Amphetamine): 500ng/mL, BAR (Barbituates): 200 ng/mL, BZO (Benzodiazepines): 150 ng/mL, BUP (Buprenorphine): 10 ng/mL, LAWANDA (Cocaine): 150 ng/mL, mAMP (Methamphetamine): 500 ng/mL, MTD (Methadone): 200 ng/mL, OPI (Opiates): 100 ng/mL, OXY (Oxycodone): 100 ng/mL, PCP (Phencyclidine): 25 ng/mL, PPX (Propoxyphene): 300 ng/mL, THC (Cannabinoids): 50 ng/mL, TCA (Trycyclic Antidepressants): 300 ng/mL Performed By: #### G TT3P #### [facility] [address] [place] [address] Dr. Lilia Calvillo DRUG CUT HEADER DRUG CLASS TEST SYST EM CUT-OFF CONCENTRATIONS ARE FOLLOWS: Normal [facility] Comment on above: Performed By: #### G TT3P #### [facility] [address] [address] [address] Lilia Calvillo mAMP Negative Normal NEGATIVE [facility] Comment on above: Performed By: #### G TT3P #### [facility] [address] [address] [address] Lilia Calvillo MTD Negative Normal NEGATIVE [facility] Comment on above: Performed By: #### G TT3P #### [facility] [address] [place] [address] Dr. Lilia Calvillo OPI Negative Normal NEGATIVE [facility] Comment on above: Performed By: #### G TT3P #### [facility] [address] [place] [address] Dr. Lilia Calvillo OXY Negative Normal NEGATIVE [facility] Comment on above: Performed By: #### G TT3P #### [facility] [address] [place] [address] Dr. Lilia Calvillo PCP Negative Normal NEGATIVE [facility] Comment on above: Performed By: #### G TT3P #### [facility] [address] [place] [address] Dr. Lilia Calvillo PPX Negative Normal NEGATIVE [facility] Comment on above: Performed By: #### G TT3P #### [facility] [address] [place] [address] Dr. Lilia Calvillo TCA Negative Normal NEGATIVE [facility] Comment on above: Performed By: #### G TT3P #### [facility] [address] [place] [address] Dr. Lilia Calvillo THC Negative Normal NEGATIVE [facility] Comment on above: Performed By: #### G TT3P #### [facility] [address] [place] [address] Dr. Lilia Calvillo TYPE AND SCREENon 10-16-2021 TYPE AND SCREEN Negative Normal [facility] Comment on above: Performed By: #### G TT3P #### [facility] [address] [place] [address] Dr. 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 Lilia Calvillo Clarity (U) CLEAR Normal CLEAR [facility] Comment on above: Performed By: #### U ACSIND #### [facility] [address] [address] [address] Lilia Calvillo Color (U) LT. YELLOW Normal YELLOW [facility] Comment on above: Performed By: #### U ACSIND #### [facility] [address] [address] [address] Lilia Calvillo Glucose Ql (U) Negative Normal NEGATIVE [facility] Comment on above: Performed By: #### U ACSIND #### [facility] [address] [place] [address] Dr. Lilia Calvillo Hemoglobin Ql (U) Negative Normal NEGATIVE [facility] Comment on above: Performed By: #### U ACSIND #### [facility] [address] [place] [address] Dr. Lilia Calvillo Ketones Ql (U) Negative Normal NEGATIVE [facility] Comment on above: Performed By: #### U ACSIND #### [facility] [address] [place] [address] Dr. Lilia Calvillo LEUKOCYTES Negative Normal NEGATIVE [facility] Comment on above: Performed By: #### U ACSIND #### [facility] [address] [place] [address] Dr. Lilia Calvillo Nitrite Ql (U) Negative Normal NEGATIVE [facility] Comment on above: Performed By: #### U ACSIND #### [facility] [address] [address] [address] Lilia Calvillo pH (U) 6.5 [pH] Normal 5-9 [facility] Comment on above: Performed By: #### U ACSIND #### [facility] [address] [place] [address] Dr. Lilia Calvillo SPEC GRAVITY 1.020 Normal 1.005-<=1. 025 [facility] Comment on above: Performed By: #### U ACSIND #### [facility] [address] [place] [address] Dr. Lilia Calvillo UA PROTEIN Negative Normal NEGATIVE/ TRACE [facility] Comment on above: Performed By: #### U ACSIND #### [facility] [address] [address] [address] Lilia Calvillo UR MICRO IND NOT INDICATED Normal [facility] Comment on above: Performed By: #### U ACSIND #### [facility] [address] [place] [address] Dr. Lilia Calvillo Urobilinogen Qn (U) 0.2 {Ann'U}/dL Normal 0.2 - 1. 0 [facility] Comment on above: Performed By: #### U ACSIND #### [facility] [address] [place] [address] Dr. Lilia Calvillo Covid-19 PCR ([facility])on 09-20 SARS-CoV-2 (COVID-19) RNA TORRES+probe Ql (Unsp spec) Not detected Normal NOT DETECTED [facility] Comment on above: Result Comment: This test is not yet approved or cleared by the [place] FDA. When there are no FDA-approved or cleared tests available, and other criteria are met, FDA can make tests available under an emergency access mechanism called an Emergency Use Authorization (EUA). The EUA for this test is supported by the [employer] of Health and Human Service's (HHS's) declaration [...] SARS-CoV-2. Performed By: #### G TT3P #### [facility] [address] [place] [address] Dr. Lilia Calvillo CHLAMYDIA/GONOCOCCUS TORRES (SW AB/URINE/PAPon 09-27-2021 Chlamydia trachomatis, TORRES Negative Normal Negative [facility] Comment on above: Performed By: #### C T/NGNA #### [facility] [address] [place] [address] Dr. Lilia Calvillo Neisseria gonorrhoeae, TORRES Negative Normal Negative [facility] Comment on above: Performed By: #### C T/NGNA #### [facility] [address] [address] [address] Lilia Calvillo GROUP B STREP CULTUREon S. agalactiae Ag Ql (Unsp spec) Culture Observations: NEGATIVE FOR GROUP B STREPTOCOCCUS. Normal [facility] Comment on above: Performed By: #### G TT3P #### [facility] [address] [place] [address] Dr. Lilia Calvillo GTT 3 HR PREGon 07-21-2021 Glucose [Mass/Vol] 92 mg/dL Normal 74-106 [facility] Comment on above: Performed By: #### G TT3P #### [facility] [address] [address] [address] Lilia Calvillo Glucose [Mass/Vol] 193 mg/dL Normal [facility] Comment on above: Performed By: #### G TT3P #### [facility] [address] [place] [address] Dr. Lilia Calvillo Glucose [Mass/Vol] 146 mg/dL Normal [facility] Comment on above: Performed By: #### G TT3P #### [facility] [address] [address] [address] Lilia Calvillo Glucose [Mass/Vol] 123 mg/dL Normal [facility] Comment on above: Performed By: #### G TT3P #### [facility] [address] [place] [address] Dr. Lilia Calvillo GLUCOSE - 1HRon 07-09-2021 Glucose [Mass/Vol] 167 mg/dL Critically high 74-106 [facility] Comment on above: Performed By: #### G LU1HR #### [facility] [address] [place] [address] Dr. Lilia Calvillo HEMOGRAM AND PLATELon 2021 Hematocrit (Bld) [Volume fraction] 33.9 % Critically low 36.0-48.0 [facility] Comment on above: Performed By: #### H H #### [facility] [address] [place] [address] Dr. Lilia Calvillo Hemoglobin (Bld) [Mass/Vol] 10.9 g/dL Critically low 12.0-16.0 [facility] Comment on above: Performed By: #### H H #### [facility] [address] [place] [address] Dr. Lilia Calvillo MCH (RBC) [Entitic mass] 29.9 pg Normal 26.7-34.0 [facility] Comment on above: Performed By: #### H H #### [facility] [address] [place] [address] Dr. Lilia Calvillo MCHC (RBC) [Mass/Vol] 32.2 g/dL Normal 29.9-35.2 [facility] Comment on above: Performed By: #### H H #### [facility] [address] [place] [address] Dr. Lilia Calvillo MCV (RBC) [Entitic vol] 93.1 fL Normal 81.0-99.0 [facility] Comment on above: Performed By: #### H H #### [facility] [address] [place] [address] Dr. Lilia Calvillo PLT 153 103/ul Normal 150-450 [facility] Comment on above: Performed By: #### H H #### [facility] [address] [place] [address] Dr. Lilia Calvillo RBC 3.64 106/ul Critically low 4.20-5.40 [facility] Comment on above: Performed By: #### H H #### [facility] [address] [place] [address] Dr. Lilia Calvillo WBC 8.4 103/ul Normal 4.0-11.0 [facility] Comment on above: Performed By: #### H H #### [facility] [address] [address] [address] Lilia Calvillo US PREG ANATOMY SINGLEon [...] by ultrasound, 40% by expected EDC; FL/AC: 0.540148 FL/BPD: 0.801430 HC/AC: 1.516245 GESTATIONAL AGE: Age by EDC: 20 weeks 0 days ALINA by EDC: 10/23/2021 Age by current US: 19 weeks 4 days ALINA by current US: 10/26/2021 IMPRESSION: Normal anatomy scan *Reference: [employer] Practice Guideline for the performance of Obstetric Ultrasound Examinations, December 20, 2006. Electronically authenticated by: DESTINY BAILEY Date: 2021-06-05 16:17 Normal [facility] AFP MATERNAL FOR SPINA BIFID Aon 05-30-2021 AFP MoM 1.33 Normal [facility] Comment on above: Performed By: #### A FPMAT #### [facility] [address] [address] [address] Lilia Calvillo AFP Value 63.0 ng/mL Normal [facility] Comment on above: Performed By: #### A FPMAT #### [facility] [address] [address] [address] Lilia Calvillo AFP, Serum for Spina Bifida Report Normal [facility] Comment on above: Performed By: #### A FPMAT #### [facility] [address] [address] [address] Lilia Calvillo Comment Comment Normal [facility] Comment on above: Result Comment: Hamlet Sinclair, Ph.D., [facility] Director . References: Available Upon Request. . Multiples Of Median Cutoffs For AFP Elevations Sandoval 2.5 Black 2.8 IDD 2.0 Twins 4.5 Abbreviation Definitions IDD - Insulin Dep Diabetes OSBR - Open Spina Bifida Risk . For further inquiries contact [employer] [facility] at [phone]. Performed By: #### A FPMAT #### [facility] [address] [address] [address] Lilia Calvillo Gest Age Collection Date 18.9 weeks Normal [facility] Comment on above: Performed By: #### A FPMAT #### [facility] [address] [address] [address] Lilia Calvillo Gestat, Age Based on Ultrasound Normal [facility] Comment on above: Result Comment: 18.9 on 05/28/2021 Recalculations are not recommended when gestational dating by LMP and ultrasound are within 10 days. Performed By: #### A FPMAT #### [facility] [address] [address] [address] Lilia Calvillo Insulin Dep Diabetes No Normal [facility] Comment on above: Performed By: #### A FPMAT #### [facility] [address] [address] [address] Lilia Calvillo Interpretation Comment Normal [facility] Comment on above: Result Comment: Inte rpretation: [...] Customer Services to discuss available options. The [place] [employer] recommends amniocentesis be offered to women age 35 and older. Performed By: #### A FPMAT #### [facility] [address] [place] [address] Dr. Lilia Calvillo [age] Normal [facility] Comment on above: Performed By: #### A FPMAT #### [facility] [address] [place] [address] Dr. Lilia Calvillo Multiple Gestation No Normal [facility] Comment on above: Performed By: #### A FPMAT #### [facility] [address] [place] [address] Dr. Lilia Calvillo OSBR Risk 1 [place] 4399 Normal [facility] Comment on above: Performed By: #### A FPMAT #### [facility] [address] [place] [address] Dr. Lilai Calvillo PDF . Normal [facility] Comment on above: Result Comment: This test was developed and its performance characteristics determined by [employer]. It has not been cleared or approved by the Food and Drug Administration. Performed By: #### A FPMAT #### [facility] [address] [place] [address] Dr. Lilia Calvillo Race Normal [facility] Comment on above: Performed By: #### A FPMAT #### [facility] [address] [place] [address] Dr. Lilia Calvillo Test Results: Negative Normal [facility] Comment on above: Performed By: #### A FPMAT #### [facility] [address] [place], [place] [id number] Dr. Lilia Calvillo Q - CULTURE,URINE,ROUTINEon 05-21-2021 CULTURE, URINE, ROUTINE SEE NOTE Normal [facility] [employer] Comment on above: Order Comment: [facility] performed at: [facility], [facility], [address] [place] [address], [address] [place] [address], [address] [place] [address], Administrative Liaison: Wilber Wilson MD [facility] Collection Date/Time: [facility] Results Received Date/Time: [facility] Reported Date/Time: Result Comment: CULT URE, URINE, ROUTINE Micro Number: [id number] Test Status: Final Specimen Source: Urine Specimen Quality: Adequate Result: Mixed genital yair isolated. These superficial bacteria are not indicative of a urinary tract infection. No further organism identification is warranted on this specimen. If clinically indicated, recollect clean-catch, mid-stream urine and transfer immediately to Urine Culture Transport Tube. Performed By: #### 3 020X, 6304R, %SBCULI #### [facility] [address] [place] [address] Q - UR CULT [id number] 2021 REFLEXIVE URINE CULTURE SEE NOTE Normal [facility] [employer] Comment on above: Order Comment: [facility] performed at: [employer] [employer], [address], [address] [place] [address], [address] [place] [address], Administrative Liaison: Wilber Wilson MD [facility] Collection Date/Time: [facility] Results Received Date/Time: [facility] Reported Date/Time: Result Comment: CULT URE INDICATED - RESULTS TO FOLLOW Performed By: #### 3 020X, 6304R, %SBCULI #### [facility] [address] [place] [address] Q - URINALYSIS,COMPLETE,WITH REFLEX TO CULTUREon 05-21-2021 Appearance (U) TURBID Abnormal CLEAR [facility] [employer] Comment on above: Order Comment: [facility] performed at: [employer], [employer], [address], [address] [place] [address], [address] [place] [address], Administrative Liaison: Wilber Wilson MD [facility] Date/Time: [facility] Results Received Date/Time: [facility] Reported Date/Time: Performed By: #### 3 020X, 6304R, %SBCULI #### [facility] [address] [place] [address] BACTERIA MODERATE Abnormal NONE SEEN [facility] [employer] Comment on above: Order Comment: [facility] performed at: [employer], [facility], [address] , [address] [place] [address], [address] [place] [address], Administrative Liaison: Wilber Wilson MD [facility] Date/Time: [facility] Results Received Date/Time: [facility] Reported Date/Time: Performed By: #### 3 020X, 6304R, %SBCULI #### [facility] [address] [place] [address] Bilirubin Ql (U) Negative Normal NEGATIVE [facility] [employer] Comment on above: Order Comment: [facility] performed at: [employer], [facility], [address] , [address] [place] [address], [address] [place] [address], Administrative Liaison: Wilber Wilson MD [facility] Collection Date/Time: [facility] Results Received Date/Time: [facility] Reported Date/Time: Performed By: #### 3 020X, 6304R, %SBCULI #### [facility] Default [address] [place] [address] Color (U) YELLOW Normal YELLOW [facility] [employer] Operator Comment on above: Order Comment: [facility] Testing performed at: [employer], [facility], [address] , [address] [place] [address], [address] [place] [address], Administrative Liaison: Wilber Wilson MD [facility] Date/Time: [facility] Results Received Date/Time: [facility] Reported Date/Time: Performed By: #### 3 020X, 6304R, %SBCULI #### [facility] Default [address] [place] [address] Glucose Ql (U) Negative Normal NEGATIVE [facility] [employer] Comment on above: Order Comment: [facility] Testing performed at: [employer], [facility], [address] , [address] [place] [address], [address] [place] [address], Administrative Liaison: Wilber Wilson MD [facility] Date/Time: [facility] Results Received Date/Time: [facility] Reported Date/Time: Performed By: #### 3 020X, 6304R, %SBCULI #### [facility] Default [address] [place] [address] HYALINE CAST NONE SEEN Normal NONE SEEN [facility] [employer] Operator Comment on above: Order Comment: [facility] Testing performed at: [employer], [facility], [address] [facility], [address] [place] [address], [address] [place] [address], Administrative Liaison: Wilber Wilson MD [facility] Date/Time: [facility] Results Received Date/Time: [facility] Reported Date/Time: Performed By: #### 3 020X, 6304R, %SBCULI #### [facility] Default [address] [place] [address] Ketones Ql (U) TRACE Abnormal NEGATIVE [facility] Specialist Comment on above: Order Comment: [facility] Testing performed at: [employer], [facility], [address] [facility], [address] [place] [address], [address] [place] [address], Administrative Liaison: Wilber Wilson MD [facility] Date/Time: [facility] Results Received Date/Time: [facility] Reported Date/Time: Performed By: #### 3 020X, 6304R, %SBCULI #### [facility] Default [address] [place] [id number] Leukocyte esterase Test strip Ql (U) 2+ Abnormal NEGATIVE [facility] Specialist Comment on above: Order Comment: [facility] Testing performed at: [employer], [facility], [address] [facility], [address] [place] [address], [address] [place] [address], Administrative Liaison: Wilber Wilson MD [facility] Date/Time: [facility] Results Received Date/Time: [facility] Reported Date/Time: Performed By: #### 3 020X, 6304R, %SBCULI #### [facility] Default [address] [place] [address] Nitrite Ql (U) Negative Normal NEGATIVE [facility] [employer] Operator Comment on above: Order Comment: [facility] Testing performed at: [employer], [facility], [address] [place] [address], [address] [place] [address], [address] [place] [address], Administrative Liaison: Wilber Wilson MD [facility] Date/Time: [facility] Results Received Date/Time: [facility] Reported Date/Time: Performed By: #### 3 020X, 6304R, %SBCULI #### [facility] Default [address] [place] [address] OCCULT BLOOD Negative Normal NEGATIVE [facility] [employer] Operator Comment on above: Order Comment: [facility] Testing performed at: [employer], [facility], [address] [place] [address], [address] [place] [address], [address] [place] [address], Administrative Liaison: Wilber Wilson MD [facility] Date/Time: [facility] Results Received Date/Time: [facility] Reported Date/Time: Performed By: #### 3 020X, 6304R, %SBCULI #### [facility] Default [address] [place] [address] pH (U) 5.5 [pH] Normal 5.0-8.0 [facility] [employer] Operator Comment on above: Order Comment: [facility] Testing performed at: [employer], [facility], [address] [place] [address], [address] [place] [address], [address] [place] [address], Administrative Liaison: Wilber Wilson MD [facility] Date/Time: [facility] Results Received Date/Time: [facility] Reported Date/Time: Performed By: #### 3 020X, 6304R, %SBCULI #### [facility] Default [address] [place] [address] Protein Ql (U) Negative Normal NEGATIVE [facility] [employer] Operator Comment on above: Order Comment: [facility] Testing performed at: [facility], [facility], [address] , [address] [place] [address], [address] [place] [address], Administrative Liaison: Wilber Wilson MD [facility] Date/Time: [facility] Results Received Date/Time: [facility] Reported Date/Time: Performed By: #### 3 020X, 6304R, %SBCULI #### [facility] Default [address] [place] [address] RBC NONE SEEN Normal < OR = 2 [facility] [employer] Operator Comment on above: Order Comment: [facility] Testing performed at: [employer], [employer], [address] [facility], [address] [place] [address], [address] [place] [address], Administrative Liaison: Wilber Wilson MD [facility] Collection Date/Time: [facility] Results Received Date/Time: [facility] Reported Date/Time: Performed By: #### 3 020X, 6304R, %SBCULI #### [facility] Default [address] [place] [address] Specific gravity (U) [Rel density] 1.029 Normal 1.001-1.03 5 [facility] [employer] Operator Comment on above: Order Comment: [facility] Testing performed at: [employer], [facility], [address] [facility], [address] [place] [address], [address] [place] [address], Administrative Liaison: Wilber Wilson MD [facility] Date/Time: [facility] Results Received Date/Time: [facility] Reported Date/Time: Performed By: #### 3 020X, 6304R, %SBCULI #### [facility] Default [address] [place] [address] SQUAMOUS EPITHELIAL CELLS 10-20 Abnormal < OR = 5 [facility] [employer] Operator Comment on above: Order Comment: [facility] Testing performed at: [employer], [facility], [address] , [address] [place] [address], [address], Administrative Liaison: Wilber Wilson MD [facility] Date/Time: [facility] Results Received Date/Time: [facility] Reported Date/Time: Performed By: #### 3 020X, 6304R, %SBCULI #### [facility] Default [address] [place] [address] WBC 20-40 Abnormal < OR = 5 [facility] [employer] Operator Comment on above: Order Comment: [facility] Testing performed at: QPT, [employer], [address] [facility], [address] [place] [address], [place], [address], Administrative Liaison: Wilber Wilson MD [facility] Date/Time: [facility] Results Received Date/Time: [facility] Reported Date/Time: Performed By: #### 3 020X, 6304R, %SBCULI #### [facility] Default [address] [place] [address] US PREG LIMITEDon 05-09-2021 US PREG LIMITED [...] BAILEY OTERO Date: 2021-05-09 10:39 Normal [facility] HEPATITIS C VIRUS AB W/ REFL EX QUANTon 04-08-2021 HCV AB >11.0 Critically high 0.0-0.9 [facility] Comment on above: Result Comment: . Performed By: #### H CVPCRR #### [facility] [address] [place] [address] Dr. Lilia Calvillo HCV log10 Normal [facility] Comment on above: Performed By: #### H CVPCRR #### [facility] [address] [address] [address] Lilia Calvillo Hep C Quantitation Not detected Normal [facility] Comment on above: Performed By: #### H CVPCRR #### [facility] [address] [address] [address] Lilia Calvillo Interpretation Comment Normal [facility] Comment on above: Result Comment: Posi tive HCV antibody screen without the presence of HCV RNA is consistent with a resolved past infection or a false positive HCV antibody. Consider repeat testing after one month. Performed By: #### H CVPCRR #### [facility] [address] [address] [address] Lilia Calvillo Test Information: Comment Normal [facility] Comment on above: Result Comment: The quantitative range of this assay is 15 IU/mL to 100 million IU/mL. Performed By: #### H CVPCRR #### [facility] [address] [address] [address] Lilia Calvillo RUBI BOX TEST PT SEND OUTo n 04-03-2021 SENT TO REF LAB 04/03/2021 Normal [facility] Comment on above: Performed By: #### G TT3P #### [facility] [address] [address] [address] Lilia Calvillo US PREG TVon 04-03-2021 [...] BAILEY OTERO Date: 2021-04-03 14:48 Normal [facility] Drug Screen Comprehensive Ur ineon 04-23-2017 Adulterants Negative Normal [facility] Comment on above: Result Comment: Adul terant [...] was developed and the performance characteristicsdetermined by [facility]. Thisconfirmation testing has not been cleared or approvedby the FDA. The laboratory is regulated under CLIA asqualified to perform high-complexity testing. This testis used for patient testing purposes. It should not beregarded as investigational or for research.Test performed at [facility],[address], [place] [address] Rthybca G. Finn, MD - [employer] Performed By: #### 6 9742-5, 56964-5, 27488-4, 42909-6, 98088-2, 39811-5, 55586-2, 31602-8 ####[facility] [address], [place]#### [address]-9, 84553-8 ####[facility], [address], [place] Creatinine Urine - Toxicology 48 mg/dL Normal [facility] Comment on above: Performed By: #### 6 9742-5, 49026-3, 80325-0, 73038-9, 23620- 4, 21580-4, 13055-8, 07661-9 ####[facility] [address], [place]#### 20554-1, 06675-5 ####[facility], [address], [place] Drug Scr Urine SeeBelow Normal [facility] Comment on above: Result Comment: Drug s Detected in Urine: THC Cotinine Caffeine All drugs identified should be considered presumptive positives unless they have been identified by an alternate chemical method. These drugs have been qualitatively identified by either or both immunoassay or gas chromatography/mass spectrometry (GC/MS) Performed By: #### 6 9742-5, 99906-7, 50005-5, 39203-5, 68510-1, 50856-0, 32123-1, 37419-9 ####[facility] [address], [place]#### 94845-3, 76539-7 ####[facility], [address], [place] Hepatitis C RNA (PCR) Quanti tativeon 04-23-2017 Hepatitis C PCR Log IU/ml 3.34 see fn High <1.08 [facility] Comment on above: Result Comment: Unit s: Log (10) IU/mLThis procedure utilizes a real-time polymerase chainreaction test from [employer]. The amplificationtarget is a conserved region of [...] resultdoes not rule out infection.Test performed at [facility],[address] [place] [address] Dijjwvc G. Finn, MD - [employer] Performed By: #### 6 9742-5, 09241-8, 83646-1, 68462-7, 84514-8, 35302-6, 90440-5, 21531-4 ####[facility] [address], [place]#### 74017-0, 35276-2 ####[facility], [address], [place] Hepatitis C RNA PCR seefn High <12 [facility] Comment on above: Result Comment: Resu lt: 2,182 Performed By: #### 6 9742-5, 79175-5, 55866-0, 76924-4, 00219-4, 78335-4, 58825-0, 27553-1 ####[facility] [address] [place], [place]#### 71315-7, 56562-9 ####[facility], [address], [place] Hepatitis C Virus RNA Ql DETECTED Abnormal [facility] Comment on above: Result Comment: Ref Range: Not detected Performed By: #### 6 9742-5, 00090-3, 96412-6, 51434-9, 17402-2, 78162-1, 45616-1, 19490-8 ####[facility] [address], [place]#### 06838-8, 58397-4 ####[facility], [address], [place] Hepatitis A Antibody Totalon 04-22-2017 Hepatitis A Antibody Negative Normal Negative [facility] Comment on above: Result Comment: Test performed at [facility],[address] [place] [address] Dznuliq G. Finn, MD - [employer] Performed By: #### 6 9742-5, 10108-6, 02957-0, 25328-5, 33163-0, 84574-4, 35486-5, 88454-6 ####[facility] [address] [place], [place]#### 60395-8, 61351-8 ####[facility], [address] [facility], [place] Hepatitis B Core Antibody Ig Mon 04-21-2017 Interpretation and review of laboratory results Negative Normal NEGATIVE [facility] Comment on above: Result Comment: Hepa titis [...] POS VACCINATION Performed By: #### 6 9742-5, 80758-9, 81566-1, 56052-7, 02415-1, 10663-7, 13283-9, 64845-6 ####[facility] [address] [place], [place]#### 39171-4, 91410-3 ####[facility], [address], [place] Hepatitis C Antibodyon 04-21 Hepatitis C Antibody Positive Abnormal NEGATIVE [facility] Comment on above: Result Comment: For a [...] longer available. Performed By: #### 6 9742-5, 16478-3, 53281-8, 56999-8, 69612-8, 55797-2, 37749-7, 43704-9 ####[facility] [address] [place], [place]#### 75152-8, 73772-6 ####[facility], [facility][note 3] [address] [place], [place] Hepatitis C Antibody Positive Abnormal NEGATIVE [facility] Comment on above: Result Comment: For a [...] longer available. Performed By: #### 6 9742-5, 74715-8, 24796-3, 03080-3, 99185-9, 02144-1, 33884-6, 76481-9 ####[address] [address] [place], [place]#### 42376-8, 75397-7 ####[facility], [address] [place], [place] CBC with Differentialon - Basophils Auto #/vol (Bld) 0.00 thou/mcL Normal 0.00-0.20 [facility] Comment on above: Performed By: #### 6 9742-5, 99162-3, 70280-9, 42373-9, 15242- 4, 75368-0, 81870-0, 52245-2 ####[facility] [address] [place], [place]#### 45185-3, 51424-3 ####[facility], [address], [place] Basophils/100 WBC Auto (Bld) 0.2 % Normal 0.0-2.0 [facility] Comment on above: Performed By: #### 6 9742-5, 52700-1, 23298-5, 52619-2, 64562- 4, 92449-7, 63187-4, 44645-2 ####[facility] [address] [place], [place]#### 41489-5, 40865-1 ####[facility], [address], [place] Eosinophils 0.10 thou/mcL Normal 0.00-0.70 [facility] Comment on above: Performed By: #### 6 9742-5, 75135-1, 25246-8, 91982-5, 33151- 4, 97271-2, 86578-0, 33544-1 ####[facility]ITAL[facility]ATHANDEREK [facility] [address] [place], [place]#### 48367-6, 02439-1 ####[facility], [address], [place] Eosinophils/100 leukocytes 1.8 % Normal 0.0-7.0 [facility] Comment on above: Performed By: #### 6 9742-5, 45612-3, 72643-2, 82253-0, 97197- 4, 72583-3, 84341-9, 51481-6 ####[address] [place], [place]#### 54904-5, 36876-1 ####[facility], [address], [place] Erythrocyte distribution width Auto Ratio (RBC) 13.7 % Normal 11.0-14.8 [facility] Comment on above: Performed By: #### 6 9742-5, 55256-4, 46148-8, 97979-9, 04276- 4, 82457-5, 75337-4, 02808-1 ####[facility] [address] [place], [place]#### 53474-4, 37756-0 ####[facility], [address], [place] Erythrocytes (RBC) 4.15 million/mcL Normal 3.80-5.10 [facility] Comment on above: Performed By: #### 6 9742-5, 62781-6, 80975-5, 38004-8, 84035- 4, 59807-5, 87425-3, 38608-4 ####[facility] [address] [place], [place]#### 63337-5, 93406-1 ####[facility], [address], [place] Hematocrit (HCT) 37.0 % Normal 35.0-45.0 [facility] Comment on above: Performed By: #### 6 9742-5, 10862-5, 76526-8, 12471-8, 64551- 4, 47630-0, 81761-2, 64771-4 ####[facility] [address], [place]#### 56897-1, 39950-9 ####[facility], [address], [place] Hemoglobin mass conc (Bld) 12.2 g/dL Normal 12.0-16.0 [facility] Comment on above: Performed By: #### 6 9742-5, 77371-4, 50086-5, 64412-4, 13696- 4, 47456-6, 27848-3, 24119-1 ####[facility] [address] [place], [place]#### 46046-7, 39130-8 ####[facility], [address], [place] Lymphocytes 1.80 thou/mcL Normal 1.00-4.80 [facility] Comment on above: Performed By: #### 6 9742-5, 64361-0, 32117-9, 70199-4, 15114- 4, 84648-3, 40962-7, 50128-8 ####[facility] [address], [place]#### 97848-7, 05287-5 ####[facility], [address], [place] Lymphocytes/100 leukocytes 34.6 % Normal 22.0-44.0 [facility] Comment on above: Performed By: #### 6 9742-5, 17727-8, 37796-6, 11394-8, 52707- 4, 51795-2, 77778-6, 51403-6 ####[facility] [address] [place], [place]#### 00611-3, 42694-1 ####[facility], [address], [place] MCH 29.4 Picograms Normal 27.0-34.0 [facility] Comment on above: Performed By: #### 6 9742-5, 18193-2, 40005-0, 83504-0, 77544- 4, 57875-9, 02332-0, 70745-5 ####[facility] [address] [place], [place]#### 79414-6, 06461-5 ####[facility], [address], [place] MCHC mass conc (RBC) 33.0 g/dL Normal 32.0-36.0 [facility] Comment on above: Performed By: #### 6 9742-5, 64351-3, 12648-1, 40119-3, 56610- 4, 21822-0, 70716-6, 21378-5 ####[facility] [address] [place], [place]#### 88640-0, 32082-6 ####[facility], [address], [place] MCV 89.2 fL Normal 80.0-97.0 [facility] Comment on above: Performed By: #### 6 9742-5, 50873-5, 25741-9, 58026-5, 68364- 4, 31492-3, 04909-8, 58628-4 ####[facility] [address] [place], [place]#### 27564-0, 44499-8 ####[facility], [address], [place] Monocytes 0.30 thou/mcL Normal 0.00-0.90 [facility] Comment on above: Performed By: #### 6 9742-5, 77515-7, 84308-1, 26617-9, 73592- 4, 74702-7, 56712-8, 45253-8 ####[facility] [address], [place]#### 83638-9, 70601-6 ####[facility], [facility][note 3] [address], [place] Monocytes/100 leukocytes 6.0 % Normal 0.0-12.0 [facility] Comment on above: Performed By: #### 6 9742-5, 18755-5, 63761-6, 50500-0, 66613- 4, 36317-9, 02952-5, 30046-0 ####[facility] [address] [place], [place]#### 94758-3, 51640-6 ####[facility], [facility][note 3] [address], [place] Neutrophils 3.00 thou/mcL Normal 1.80-7.70 [facility] Comment on above: Performed By: #### 6 9742-5, 64554-6, 64710-6, 82051-6, 92818- 4, 80365-6, 24514-4, 97057-6 ####[facility] [address] [place], [place]#### 75606-4, 67834-8 ####[facility], [facility][note 3] [address], [place] Neutrophils/100 WBC Auto (Bld) 57.4 % Normal 40.0-70.0 [facility] Comment on above: Performed By: #### 6 9742-5, 43249-5, 20874-9, 07660-0, 81598- 4, 69016-4, 57108-3, 67294-9 ####[facility] [address] [place], [place]#### 33232-7, 98055-8 ####[facility], [facility][note 3] [address] [place], [place] Platelet mean volume (PMV) 11.9 fL Normal 6.2-12.1 [facility] Comment on above: Performed By: #### 6 9742-5, 44255-1, 19730-6, 96538-8, 43486- 4, 02030-6, 37737-5, 42721-0 ####[facility] [address] [place], [place]#### 98534-9, 36758-0 ####[facility], [facility] [address], [place] Platelets 173 thou/mcL Normal 142-424 [facility] Comment on above: Performed By: #### 6 9742-5, 78764-4, 07855-9, 67832-7, 53330- 4, 79057-3, 98258-2, 56716-1 ####[facility] [address] [place], [place]#### 76158-0, 43769-7 ####[facility], [facility][note 3] [address] [place], [place] WBC (Leukocytes) 5.2 thou/mcL Normal 4.6-10.2 [facility] Comment on above: Performed By: #### 6 9742-5, 22607-0, 79771-7, 52894-5, 34811- 4, 67312-1, 14442-2, 26547-0 ####[facility] [address] [place], [place]#### 50567-1, 00896-2 ####[facility], [facility] [address], [place] Comprehensive Metabolic Pane blanquita 04-20-2017 Alanine aminotransferase (ALT) 37 Units/L Normal 14-63 [facility] Comment on above: Performed By: #### 6 9742-5, 09967-4, 64177-3, 46214-4, 97123- 4, 83943-6, 95917-9, 05373-6 ####[facility] [address], [place]#### 22549-3, 19004-3 ####[facility], [address], [place] Albumin 4.2 g/dL Normal 3.5-4.8 [facility] Comment on above: Performed By: #### 6 9742-5, 71032-6, 13670-8, 34997-6, 87489- 4, 55239-0, 92808-5, 17456-8 ####[facility] [address], [place]#### 36720-0, 08019-0 ####[facility], [address], [place] Alkaline phosphatase (ALP) 45 Units/L Normal 32-91 [facility] Comment on above: Performed By: #### 6 9742-5, 52031-5, 35682-2, 97633-8, 36719- 4, 93636-5, 01009-5, 78330-7 ####[facility] [address], [place]#### 36946-4, 06722-6 ####[facility], [address], [place] Anion gap 10.0 mmol/L Normal 6.0-18.0 [facility] Comment on above: Result Comment: KADEN CHAMBERS NOTE:The calculated Anion Gap(AGAP) does not include Potassium. Performed By: #### 6 9742-5, 89785-7, 41811-2, 06826-5, 16022-2, 36964-9, 86404-6, 40203-4 ####[facility] [address], [place]#### 78330-0, 88218-2 ####[facility], [address], [place] Aspartate aminotransferase (AST) 29 Units/L Normal 15-41 [facility] Comment on above: Performed By: #### 6 9742-5, 45483-5, 33787-6, 78986-1, 97594- 4, 79325-3, 20716-0, 18277-8 ####[facility] [address], [place]#### 04754-3, 94943-1 ####[facility], [address] [place], [place] Bilirubin (total) 0.5 mg/dL Normal 0.3-1.2 [facility] Comment on above: Performed By: #### 6 9742-5, 55330-9, 89855-9, 06889-0, 69003- 4, 29147-0, 82904-1, 34438-9 ####[facility] [address], [place]#### 65230-7, 41195-3 ####[facility], [address], [place] Calcium 9.4 mg/dL Normal 8.9-10.3 [facility] Comment on above: Performed By: #### 6 9742-5, 26740-4, 90134-7, 59596-8, 81492- 4, 05827-8, 55553-9, 24261-2 ####[facility] LAB [address], [place]#### 14699-6, 06900-8 ####[facility], [address], [place] Chloride 102 mmol/L Normal 98-107 [facility] Comment on above: Performed By: #### 6 9742-5, 29343-3, 66005-6, 11848-2, 61312- 4, 28584-6, 05325-9, 17905-9 ####[facility] [address], [place]#### 18038-6, 27407-5 ####[facility], [address], [place] CO2 26 mmol/L Normal 22-32 [facility] Comment on above: Performed By: #### 6 9742-5, 68709-4, 84325-4, 90063-6, 93366- 4, 68708-5, 58128-2, 46972-1 ####[facility] [address], [place]#### 08795-6, 00665-4 ####[facility], [address], [place] Creatinine 0.67 mg/dL Normal 0.60-1.30 [facility] Comment on above: Performed By: #### 6 9742-5, 01438-7, 78620-0, 57793-9, 10765- 4, 77076-8, 16970-5, 22744-7 ####[facility] [address], [place]#### 22723-8, 83467-6 ####[facility], [address], [place] Glucose mass conc 119 mg/dL High 70-110 [facility] Comment on above: Performed By: #### 6 9742-5, 32004-4, 41365-9, 95997-1, 12055- 4, 36674-2, 90493-6, 17138-3 ####[facility] [address], [place]#### 88569-6, 17131-2 ####[facility], [address], [place] Potassium molar conc 4.2 mmol/L Normal 3.6-5.1 [facility] Comment on above: Performed By: #### 6 9742-5, 51163-2, 12988-5, 55879-5, 64654- 4, 22910-9, 55950-5, 72894-4 ####[facility] [address], [place]#### 13123-3, 36232-4 ####[facility], [address], [place] Protein 6.7 g/dL Normal 6.1-7.9 [facility] Comment on above: Performed By: #### 6 9742-5, 67527-0, 46865-6, 41946-1, 66163- 4, 88463-1, 60456-4, 00693-1 ####[facility] [address], [place]#### 74493-7, 30810-1 ####[facility], [address], [place] Sodium 138 mmol/L Normal 136-145 [facility] Comment on above: Performed By: #### 6 9742-5, 75299-3, 63815-4, 22320-2, 48798- 4, 97188-3, 06510-7, 14210-2 ####[facility] [address], [place]#### 79072-2, 86877-5 ####[facility], [facility][note 3] [address], [place] Urea nitrogen 9 mg/dL Normal 8-20 [facility] Comment on above: Performed By: #### 6 9742-5, 59739-1, 27358-2, 51807-9, 11172- 4, 46208-8, 22920-8, 20275-7 ####[facility] [address], [place]#### 08899-8, 27014-0 ####[facility], [facility][note 3] [address], [place] Culture Urine + Susceptibili tyon 04-20-2017 Urine culture, bacteria [facility] MicrobiologyPROCEDURE: Culture Urine + SusceptibilitySOURCE: Urine BODY SITE:COLLECTED DATE/TIME: 04/20/2017 09:07 EST RECEIVED DATE/TIME: 04/20/2017 09:07 ESTSTART DATE/TIME: 04/20/2017 09:07 EST FREE TEXT SOURCE: URINE-URINEINTERFACED REPORTSFinal Report []Verified Date/Time/Personnel: 04/21/2017 18:58 EST CONTRIBUTOR_SYSTEM, CO_PNNO GROWTH Normal [facility] Comment on above: Performed By: #### 6 9742-5, 38417-8, 30677-4, 28229-3, 13896- 4, 83300-5, 04976-0, 01375-2 ####[facility] [address], [place]#### 52649-2, 60675-0 ####[facility], [address], [place] GFRaaon 04-20-2017 eGFR (black) mL/min/{1.73_m2} Normal [facility] Comment on above: Result Comment: The MDRD equation has not been validated for those over 70 years, women, patients with serious co-morbid conditions, or with extremes of bodysize, muscle mass of nutritional status. Performed By: #### 6 9742-5, 34790-4, 95076-5, 35132-6, 95845-6, 48347-0, 01794-6, 45686-7 ####[facility] [address], [place]#### 56591-9, 48287-0 ####[facility], [address] [facility], [place] GFRbbon 04-20-2017 eGFR (non-black) mL/min/{1.73_m2} Normal [facility] Comment on above: Performed By: #### 6 9742-5, 53381-6, 07367-9, 82711-5, 49130- 4, 77600-2, 36101-0, 01906-6 ####[facility] [address], [place]#### 44741-1, 51059-4 ####[facility], [address] [facility], [place] HCG Quantitativeon 8 HCG Qn m[IU]/mL Normal [facility] Comment on above: Result Comment: Preg edna [...] immunoassay method. Performed By: #### 6 9742-5, 97880-8, 34470-4, 04044-0, 69332-8, 43674-9, 75829-8, 06264-2 ####[facility] [address], [place]#### 07790-3, 51136-8 ####[facility], [address], [place] HIV 1 Antibodyon 04-20-2017 HIV Screen NONREAC Normal NONREAC [facility] Comment on above: Result Comment: This is a 4th generation test (P24 AG,HIV-1 AB, HIV-2 AB)Specimens with preliminary reactive results will be confirmed by HIV1/2Differentiation test (Frilp). THE IDENTITY OF A PERSON ON WHOM [...] equitable relief. Performed By: #### 6 9742-5, 06123-6, 43620-1, 11208-7, 90230-4, 72208-0, 99897-0, 32346-7 ####[facility] [address], [place]#### 25162-9, 67696-9 ####[facility], [address] [place], [place] Hepatitis A (HAAb) Antibody IgMon 04-20-2017 Hepatitis A (HAAb) Antibody IgM Negative Normal NEGATIVE [facility] Comment on above: Result Comment: Hepa titis A Virus Antibody-IgM Specific. Performed By: #### 6 9742-5, 53054-2, 91491-5, 05577-6, 51305-5, 68738-8, 18179-1, 00511-8 ####[facility] [address] [place], [place]#### 71745-8, 02136-3 ####[facility], [facility][note 3] [address], [place] Hepatitis B Core Antibody To shirley 04-20-2017 Interpretation and review of laboratory results Negative Normal NEGATIVE [facility] Comment on above: Performed By: #### 6 9742-5, 65286-4, 42789-9, 26285-1, 97031- 4, 93944-0, 89587-1, 88894-0 ####[facility] [address] [place], [place]#### 02082-0, 93043-8 ####[facility], [facility][note 3] [address], [place] Hepatitis B Surface Antibody on 04-20-2017 Hepatitis B Surface Antibody Interp Negative Normal NEGATIVE [facility] Comment on above: Performed By: #### 6 9742-5, 70393-3, 24461-1, 25854-2, 17590- 4, 68992-5, 18227-9, 35072-0 ####[facility] [address] [place], [place]#### 03836-0, 27765-4 ####[facility], [facility][note 3] [address], [place] Magnesium Levelon 04-20-2017 Magnesium 2.0 mg/dL Normal 1.8-2.5 [facility] Comment on above: Performed By: #### 6 9742-5, 92541-0, 61709-5, 47506-1, 03480- 4, 21684-4, 24537-7, 92178-7 ####[place] [place] [address] [place], [place]#### 04983-7, 23051-0 ####[facility], [facility][note 3] [address], [place] Phosphorus Levelon 8 Phosphorus Level 3.8 mg/dL Normal 2.4-4.7 [facility] Comment on above: Performed By: #### 6 9742-5, 43338-8, 87232-1, 23297-9, 46704- 4, 76666-2, 36268-2, 06691-4 ####[facility] [address], [place]#### 86145-7, 74532-5 ####[facility], [address] [place], [place] Syphilis Screenon 04-20-2017 Syphilis Screen NONREAC Normal NONREAC [facility] Comment on above: Result Comment: No s erologic evidence of syphilis. Performed By: #### 6 9742-5, 44822-3, 66829-8, 69090-5, 50448-9, 49850-2, 30994-0, 58843-9 ####[facility] [address], [place]#### 70543-0, 95457-9 ####[facility], [address] [place], [place] Vital Signs Date Time Vital Sign Value Performing Clinician Facility 05-19-2024 12:23-0500 Diastolic blood pressure 55 mm[Hg] Yaz Smallguy DO Work Phone: [facility] 05-19-2024 12:23-0500 Heart rate 94 /min Yaz Smallguy DO Work Phone: [facility] 05-19-2024 12:23-0500 Respiratory rate 18 /min Yaz Smallguy DO Work Phone: [facility] 05-19-2024 12:23-0500 SaO2% (BldA) [Mass fraction] 99 % Yaz Smallguy DO Work Phone: [facility] 05-19-2024 12:23-0500 Systolic blood pressure 97 mm[Hg] Yaz Smallguy DO Work Phone: [facility] 05-19-2024 08:55-0500 Body height 160.02 cm Yaz Hollis DO Work Phone: [facility] 05-19-2024 08:55-0500 Body temperature 97.9 [degF] Yaz Hollis DO Work Phone: [facility] 05-19-2024 08:55-0500 Body weight 67.85 kg Yaz Hollis DO Work Phone: [facility] 05-16-2024 12:56-0500 Diastolic blood pressure 80 mm[Hg] Yaz Hollis DO Work Phone: [facility] 05-16-2024 12:56-0500 Heart rate 94 /min Yaz Hollis DO Work Phone: [facility] 05-16-2024 12:56-0500 Respiratory rate 16 /min Yaz Hollis DO Work Phone: [facility] 05-16-2024 12:56-0500 SaO2% (BldA) [Mass fraction] 99 % Yaz Hollis DO Work Phone: [facility] 05-16-2024 12:56-0500 Systolic blood pressure 122 mm[Hg] Yaz Hollis DO Work Phone: [facility] 05-16-2024 10:08-0500 Body height 160.02 cm Yaz Hollis DO Work Phone: [facility] 05-16-2024 10:08-0500 Body temperature 97.7 [degF] Yaz Hollis DO Work Phone: [facility] 05-16-2024 10:08-0500 Body weight 68.03 kg Yaz Hollis DO Work Phone: [facility] 04-24-2024 14:45-0500 Body mass index (BMI) [Ratio] 27.16 kg/m2 Jaguar Ingrid DO Work Phone: [facility] 04-24-2024 14:45-0500 Body weight 67.9 kg Jaguar Ingrid DO Work Phone: [facility] 04-24-2024 14:45-0500 Diastolic blood pressure 66 mm[Hg] Jaguar Ingrid DO Work Phone: [facility] 04-24-2024 14:45-0500 Systolic blood pressure 108 mm[Hg] Jaguar Ingrid DO Work Phone: [facility] 04-05-2024 19:16-0500 Diastolic blood pressure 71 mm[Hg] Yaz Hollis DO Work Phone: [facility] 04-05-2024 19:16-0500 Heart rate 87 /min Yaz Hollis DO Work Phone: [facility] 04-05-2024 19:16-0500 Respiratory rate 20 /min Yaz Hollis DO Work Phone: [facility] 04-05-2024 19:16-0500 SaO2% (BldA) [Mass fraction] 97 % Yaz Hollis DO Work Phone: [facility] 04-05-2024 19:16-0500 Systolic blood pressure 106 mm[Hg] Yaz Hollis DO Work Phone: [facility] 04-05-2024 14:46-0500 Body height 160.02 cm Yaz Hollis DO Work Phone: [facility] 04-05-2024 14:46-0500 Body temperature 97.9 [degF] Yaz Hollis DO Work Phone: [facility] 04-05-2024 14:46-0500 Body weight 65 kg Yaz Hollis DO Work Phone: [facility] 03-24-2024 11:29-0500 Body mass index (BMI) [Ratio] 24.49 kg/m2 [facility] Nurse [facility] 03-24-2024 11:29-0500 Body weight 61.24 kg [facility] Nurse [facility] 03-24-2024 11:29-0500 Diastolic blood pressure 68 mm[Hg] [facility] Nurse [facility] 03-24-2024 11:29-0500 Systolic blood pressure 112 mm[Hg] [facility] Nurse [facility] 03-04-2024 13:32-0500 Diastolic blood pressure 70 mm[Hg] Yaz Hollis DO Work Phone: 6(274)826-459051 [place] [address] 03-04-2024 13:32-0500 Heart rate 76 /min Yaz Hollis DO Work Phone: 7(254)442-626195 [address] 03-04-2024 13:32-0500 Respiratory rate 20 /min Yaz Hollis DO Work Phone: 0(982)736-444582 [place] [address] 03-04-2024 13:32-0500 SaO2% (BldA) [Mass fraction] 100 % Yaz Hollis DO Work Phone: 5(167)494-802451 [place] [address] 03-04-2024 13:32-0500 Systolic blood pressure 115 mm[Hg] Yaz Hollis DO Work Phone: 1(541)045-868551 [place] [address] 03-04-2024 11:14-0500 Body height 160.02 cm Yaz Hollis DO Work Phone: 0(086)038-480895 [address] 03-04-2024 11:14-0500 Body temperature 97.9 [degF] Yaz Hollis DO Work Phone: 4(154)461-652151 [place] [address] 03-04-2024 11:14-0500 Body weight 63 kg Yaz Hollis DO Work Phone: 8(778)887-228651 [place] [address] 11-25-2023 17:46-0400 Body height 160.02 cm DO Yaz Smalltoniemadeline Work Phone: 3(017)227-993351 [place] [address] 11-25-2023 17:46-0400 Body temperature 98 [degF] DO Yaz Hollis Work Phone: 1(059)425-535451 [place] [address] 11-25-2023 17:46-0400 Body weight 65.77 kg DO Yaz Smalltoniemadeline Work Phone: [facility] 11-25-2023 17:46-0400 Diastolic blood pressure 71 mm[Hg] DO Yaz Hollis Work Phone: [facility] 11-25-2023 17:46-0400 Heart rate 68 /min DO Yaz Hollis Work Phone: [facility] 11-25-2023 17:46-0400 Respiratory rate 18 /min DO Yaz Hollis Work Phone: [facility] 11-25-2023 17:46-0400 SaO2% (BldA) [Mass fraction] 97 % DO Yaz Hollis Work Phone: [facility] 11-25-2023 17:46-0400 Systolic blood pressure 107 mm[Hg] DO Yaz Hollis Work Phone: [facility] 12-02-2022 13:15-0400 Body height 160.02 cm Claribel Mora Other [employer] Other 12-02-2022 13:15-0400 Body mass index (BMI) [Ratio] 25.86 kg/m2 Claribel Mora Other [employer] Other 12-02-2022 13:15-0400 Body weight 66.23 kg Claribel Mora Other [employer] Other 12-02-2022 13:15-0400 Diastolic blood pressure 66 mm[Hg] Claribel Mora Other [employer] Other 12-02-2022 13:15-0400 Respiratory rate 18 /min Claribel Mora Other [employer] Other 12-02-2022 13:15-0400 SaO2% (BldA) [Mass fraction] 98 % Claribel Mora Other [employer] Other 12-02-2022 13:15-0400 Systolic blood pressure 100 mm[Hg] Claribel Abby Other [employer] Other 07-16-2022 14:45-0400 Body height 160.02 cm Claribelbrie Mora Other [employer] Other 07-16-2022 14:45-0400 Body mass index (BMI) [Ratio] 27.22 kg/m2 Claribelbrie Mora Other [employer] Other 07-16-2022 14:45-0400 Body weight 69.72 kg Claribel Mora Other [employer] Other 07-16-2022 14:45-0400 Diastolic blood pressure 64 mm[Hg] Claribel Abby Other [employer] Other 07-16-2022 14:45-0400 Respiratory rate 18 /min Claribel Mora Other [employer] Other 07-16-2022 14:45-0400 SaO2% (BldA) [Mass fraction] 97 % Claribelbrie Mora Other [employer] Other 07-16-2022 14:45-0400 Systolic blood pressure 104 mm[Hg] Claribel Abby Other [employer] Other 06-04-2022 15:15-0400 Body height 160.02 cm Adin Gan Other [employer] Other 06-04-2022 15:15-0400 Body mass index (BMI) [Ratio] 27.28 kg/m2 Adin Gan Other [employer] Other 06-04-2022 15:15-0400 Body weight 69.85 kg Adin Gan Other [employer] Other 06-04-2022 15:15-0400 Diastolic blood pressure 80 mm[Hg] Adin Gan Other [employer] Other 06-04-2022 15:15-0400 Respiratory rate 18 /min Adin Gan Other [employer] Other 06-04-2022 15:15-0400 SaO2% (BldA) [Mass fraction] 98 % Adin Gan Other [employer] Other 06-04-2022 15:15-0400 Systolic blood pressure 126 mm[Hg] Adin Gan Other [employer] Other 05-25-2022 15:30-0500 Body height 160.02 cm Adin Gan Other [employer] Other 05-25-2022 15:30-0500 Body mass index (BMI) [Ratio] 27.28 kg/m2 Adin Gan Other [employer] Other 05-25-2022 15:30-0500 Body weight 69.85 kg Adin Gan Other [employer] Other 05-25-2022 15:30-0500 Diastolic blood pressure 80 mm[Hg] Adin Gan Other [employer] Other 05-25-2022 15:30-0500 Respiratory rate 18 /min Adin Singhley Other [employer] Other 05-25-2022 15:30-0500 SaO2% (BldA) [Mass fraction] 99 % Adin Gan Other [employer] Other 05-25-2022 15:30-0500 Systolic blood pressure 124 mm[Hg] Adin Singhley Other [employer] Other 05-30-2021 03:06-0500 Body weight 72.[address] RUSTAM SCALES [facility] Comment on above: Performed By: #### AFPMAT #### [facility] [address] [place] [address] Dr. Lilia Calvillo Encounters Encounter Date Encounter Type Care Provider Facility Start: 05-19-2024 End: 05-19-2024 Emergency department patient visit Yaz Hollis DO Work Phone: [facility] Work Phone: Start: 05-16-2024 End: 05-16-2024 Emergency department patient visit Yaz Hollis DO Work Phone: [facility] Work Phone: Start: 04-24-2024 End: 04-24-2024 flow sheet Jaguar Ingrid DO Work Phone: [facility] Comment on above: 13 weeks gestation o f ; First trimester Start: 04-24-2024 End: 04-24-2024 ambulatory JAGUAR INGRID Not Available Start: 04-24-2024 End: 04-24-2024 Bamboo flowsheet Jaguar Ingrid DO Work Phone: [facility] Start: 04-24-2024 End: 04-24-2024 Bamboo flowsheet Jaguar Ingrid DO Work Phone: [facility] Start: 04-05-2024 End: 04-05-2024 Emergency department patient visit Yaz Hollis DO Work Phone: [facility] Work Phone: Start: 04-03-2024 End: 04-03-2024 Clinisync Result Encounter Generic External Data Provider [facility] External Department Unsolicited Start: 04-03-2024 End: 04-03-2024 Clinisync Result Encounter Generic External Data Provider [facility] External Department Unsolicited Start: 03-24-2024 End: 03-24-2024 ambulatory [facility] Ingrid Nurse [facility] Comment on above: GA: 9w0d Start: 03-04-2024 End: 03-04-2024 Emergency department patient visit Yaz Hollis DO Work Phone: [facility] Work Phone: Start: 11-25-2023 End: 11-25-2023 Emergency department patient visit DO Yaz Hollis Work Phone: [facility] Work Phone: Start: 10-05-2023 End: 10-05-2023 ambulatory RICARDO POWELL Not Available Start: 06-16-2023 End: 06-16-2023 ambulatory RICARDO POWELL Not Available Start: 12-02-2022 End: 12-02-2022 ambulatory Claribel Mora Other [employer] Other Start: 12-02-2022 Office outpatient vi sit 25 minutes Claribelbrie Mora [facility] Start: 07-16-2022 End: 07-16-2022 ambulatory Claribel Mora Other [employer] Other Start: 07-16-2022 Office outpatient vi sit 25 minutes Claribel Mora [facility] Start: 06-08-2022 End: 06-08-2022 ambulatory Adin Gan Other [employer] Other Start: 06-08-2022 Telephone encounter Adin [facility] Start: 06-05-2022 End: 06-05-2022 ambulatory Adin Gan Other [employer] Other Start: 06-05-2022 Telephone encounter Adin MA [facility] [place] Start: 06-04-2022 End: 06-04-2022 Patient encounter procedure DO Adin Gan Work Phone: [facility] Start: 06-04-2022 End: 06-04-2022 ambulatory DO Adin aGn Work Phone: [facility] Work Phone: Start: 06-04-2022 Office outpatient vi sit 15 minutes Adin Gan [facility] [place] Start: 05-25-2022 End: 05-25-2022 ambulatory Adin Gan Other [employer] Other Start: 05-25-2022 Office outpatient vi sit 15 minutes Adin Gan [facility] [place] Start: 05-22-2022 End: 05-22-2022 ambulatory Adin Gan Other [facility] Other Start: 05-22-2022 Telephone encounter Adin [facility] Start: 05-07-2022 End: 05-07-2022 ambulatory Adin Gan Other [facility] Other Start: 05-07-2022 Telephone encounter Adin [facility] [place] Start: 04-01-2022 End: 04-01-2022 ambulatory Nabil Mcgraw Other [employer] Other Start: 04-01-2022 Telephone encounter Nabil Mcgraw [facility] [place] Start: 02-17-2022 End: 02-17-[address] JAGUAR QUINTERO Facility:[facility] Start: 10-22-2021 Encounter for preprocedural laboratory examination DR JAGUAR QUINTERO [facility] Start: 10-21-2021 End: 10-21-[address] JAGUAR QUINTERO Facility:[facility] Start: 10-16-2021 End: 10-18-2021 Evaluation and management of inpatient DR JAGUAR QUINTERO Facility:[facility] Start: 10-14-2021 Encounter for preprocedural laboratory examination DR JAGUAR QUINTERO [facility] Start: 10-13-2021 End: 10-14-2021 ambulatory NONE LISTED [...] Date Procedure Procedure Detail Performing Clinician Start: 04-24-2024 Urnls dip stick/tabl et rgnt non-auto w/o micrscp Sulema PATEL Work Phone: Start: 04-05-2024 Respiratory Panel (PCR) Yaz Hollis DO Work Phone: Start: 04-03-2024 BOX TEST Jaguar burnham DO Work Phone: Start: 03-24-2024 End: 03-24-2024 Urnls dip stick/tablet rgnt non-auto w/o micrscp Jaguar Ingrid DO Work Phone: Start: 11-25-2023 CT cervical spine without contrast DO Yaz Hollis Work Phone: Start: 11-25-2023 CT of head without contrast DO Yaz Hollis Work Phone: Start: 10-16-2021 Extraction of Produc ts of Conception, Low Cervical, Open Approach DR RUSTAM SCALES H/O: section Status pos t delivery DO Adin Gan Work Phone: Comment on above: Problem List clean-u p per request of Phys. EHR Cmte Plan of Treatment Date Care Activity Detail Author Start: 01-02-2026 Screening for malign ant neoplasm of cervix [facility] Start: 05-25-2024 End: 05-25-2024 Patient encounter procedure 05/25/2024 1:30 PM EST Routine [facility] [address] [place] [id number] Sulema Mendenhall PA [address] [place], [place] [id number] [facility] Start: 04-24-2024 End: 04-24-2024 Patient encounter procedure [facility] Comment on above: Arrived Start: 03-24-2024 End: 03-24-2025 ABO/Rh ABO/Rh Lab Routine Missed menses , unspecified gestational age Expected: 03/24/2024 (Approximate), Expires: 03/24/2025 [facility] Comment on above: Expected: 03/24/2024 (Approximate), Expires: 03/24/2025 Start: 03-24-2024 End: 03-24-2025 Blood type and Indirect antibody screen panel - Blood Type and screen Lab Routine Missed menses , unspecified gestational age Expected: 03/24/2024 (Approximate), Expires: 03/24/2025 [facility] Work Phone: Comment on above: Expected: 03/24/2024 (Approximate), Expires: 03/24/2025 Start: 03-24-2024 End: 03-24-2025 Drugs of abuse panel - Urine by Screen method Rapid drug screen, urine Lab Routine , unspecified gestational age Encounter for supervision of normal first in first trimester Expected: 03/24/2024 (Approximate), Expires: 03/24/2025 [facility] Comment on above: Expected: 03/24/2024 (Approximate), Expires: 03/24/2025 Start: 11-21-2023 Influenza vaccination Influenza Vacc ine (#1) [facility] Start: 2014 Screening for malign ant neoplasm of cervix Pap Smear [facility] Bacteria identified in Urine by Culture Urine culture Microbiology Routine Missed menses Ordered: 03/24/2024 [facility] Comment on above: Ordered: 03/24/2024 CBC W Auto Different ial panel - Blood CBC and differential Lab Routine Missed menses , unspecified gestational age Ordered: 03/24/2024 [facility] Comment on above: Ordered: 03/24/2024 Hemoglobin A1c/Hemoglobin.total in Blood Hemoglobin A1c Lab Routine Missed menses , unspecified gestational age Ordered: 03/24/2024 [facility] Comment on above: Ordered: 03/24/2024 Hepatitis B virus surface Ag [Presence] in Serum or Plasma by Immunoassay Hepatitis B surface antigen Lab Routine Missed menses , unspecified gestational age Ordered: 03/24/2024 [facility] Comment on above: Ordered: 03/24/2024 Hepatitis C virus Ab [Presence] in Serum or Plasma by Immunoassay Hepatitis C antibody Lab Routine Missed menses , unspecified gestational age Ordered: 03/24/2024 [facility] Comment on above: Ordered: 03/24/2024 HIV-1/HIV-2 antigen/antibody combination immunoassay HIV-1 and HIV-2 antibodies Lab Routine Missed menses , unspecified gestational age Ordered: 03/24/2024 [facility] Comment on above: Ordered: 03/24/2024 Patient Education [facility] Work Phone: Patient referral [facility] Work Phone: Reagin Ab [Presence] in Serum by RPR RPR Lab Routine Missed menses , unspecified gestational age Ordered: 03/24/2024 [facility] Comment on above: Ordered: 03/24/2024 Rubella antibody, IgG Rubella an tibody, IgG Lab Routine Missed menses , unspecified gestational age Ordered: 03/24/2024 [facility] Comment on above: Ordered: 03/24/2024 Immunizations Immunization Date Immunization Notes Care Provider [facility] 06-30-2019 tetanus toxoid, reduced diphtheria toxoid, and acellular pertussis vaccine, adsorbed DO Adin Gan Work Phone: [facility] 05-12-2013 influenza, seasonal, injectable, preservative free [facility] 05-12-2013 influenza virus vaccine, unspecified formulation [facility] 10-19-2012 tetanus toxoid, reduced diphtheria toxoid, and acellular pertussis vaccine, adsorbed [facility] Nurse [facility] 02-25-2012 influenza, seasonal, injectable [facility] 01-09-2011 influenza virus vaccine, live, attenuated, for intranasal use [facility] 02-28-2007 influenza, seasonal, injectable [facility] 02-01-2006 influenza, seasonal, injectable [facility] NEGATED: Highlighted row has not occurred!07-16-2022 influenza, seasonal, injectable Patient Objection Claribel Mora Other [facility] Other Payers Date Payer Category Payer [facility] er [id number] 2023 Unknown [id number] 2023 Private Health Insurance [id number] 2022 Medicaid [id number] 2017 Unknown [id number] 1993 Unknown [id number] 2.16.840.1.218313.3.579.2. 593 1993 Unknown [id number] 2.16.840.1.325408.3.579.2. 593 1993 Unknown [id number] 2.16.840.1.330161.3.579.2. 593 1993 Unknown [id number] 2.16.840.1.184582.3.579.2. 593 1993 Unknown [id number] 2.16.840.1.775739.3.579.2. 593 1993 Unknown [id number] 2.16.840.1.968787.3.579.2. 593 1993 Unknown [id number] 2.16.840.1.000716.3.579.2. 593 1993 Unknown [id number] 2.16.840.1.056164.3.579.2. 593 1993 Unknown [id number] 2.16.840.1.844648.3.579.2. 593 1993 Unknown [id number] 2.16.840.1.142316.3.579.2. 593 1993 Unknown [id number] 2.16.840.1.314986.3.579.2. 593 1993 Unknown [id number] 2.16.840.1.545424.3.579.2. 9 1993 Unknown [id number] 2.16.840.1.877467.3.579.2. 9 1993 Unknown [id number] 2.16.840.1.346638.3.579.2. 1258 1993 Unknown [id number] 2.16.840.1.864478.3.579.2. 1258 1993 Unknown [id number] 2.16.840.1.030780.3.579.2. 1258 1993 Unknown [id number] 2.16.840.1.750379.3.579.2. 9 1959 Self-pay 1959 Unknown [id number] 1959 Unknown [id number] Medicaid [place] [employer] [id number] 401 [id number] Unknown [id number] 2.16.840.1.719733.3.579.2. 593 Unknown [id number] 2.16.840.1.999205.3.579.2. 531 Unknown [id number] 2.16.840.1.635793.3.579.2. 531 Unknown [id number] 2.16.840.1.951243.3.579.2. 531 Unknown [id number] 2.16840.1.472634.3.579.2. 531 Unknown [id number] 2.16840.1.517775.3.579.2. 531 Social History Date Type Detail Facility Start: 10-05-2023 Sex Assigned At [facility] Other Start: 04-28-2020 End: 05-19-2024 Tobacco smoking status NHIS Never smoked tobacco (finding) [facility] Start: 1995 Sex Assigned At Female [facility] Start: 11-25-2023 End: 03-22-2017 Tobacco smoking status IDIS Smoker (finding) [facility] Start: 10-05-2023 Tobacco smoking status [facility] Ex-smoker [facility] End: 03-22-2017 History of tobacco use Cigarette Smoker [facility] Start: 10-05-2023 Tobacco use and exposure Smokeless tobacco non-user [facility] Start: 03-24-2024 Alcoholic beverage intake Ex-drinker (finding) [facility] Start: 10-05-2023 History of Social function [facility] Start: 06-20-2023 Education 21 [facility] Start: 06-20-2023 Tobacco Comment Last smoked : 1- 5 years [facility] Start: 06-20-2023 Alcohol Comment caffeine intake : 1-2 cups per day [facility] Start: 02-04-2024 [facility] Start: 07-12-2023 Gender identity Identifies as female gender (finding) [facility] Start: 07-12-2023 Sexual orientation Heterosexual (finding) [facility] Start: 04-05-2024 End: 05-19-2024 Sex Female (finding) [facility] Clinical Notes 08-20-2017 to 04-24-2024 Pat Jaime PR - 04/24/2024 2:20 PM Wanda Gomez MA - 03/24/2024 11:00 AM EST Note Date & Type Note Facility 04-24-2024 History of Presen t illness Narrative Reason for Appointment: Patient ID: Nicole Farris is a 28 y.o. female who presents for Routine Visit Patient presents today for Return OB appointment. MEDICATIONS Current Outpatient Medications Medication Instructions citalopram (CELEXA) 20 mg, Oral, Daily cyclobenzaprine (FLEXERIL) 10 mg, Oral, 3 times daily PRN fluticasone (Flonase) 50 MCG/ACT nasal spray 1-2 sprays, Each Nostril, Daily, Shake gently. Before first use, prime pump. After use, clean tip and replace cap metoclopramide (REGLAN) 10 mg, Oral, 3 times daily before meals, Take 1 tablet by mouth 30 minutes prior to meals 3 times daily as needed for nausea. ondansetron ODT (ZOFRAN-ODT) 4 mg, Oral, Every 8 hours PRN promethazine (PHENERGAN) 12.5 mg, Oral, Every 6 hours PRN, Take 1 tablet by mouth every 6 hours as needed for nausea. Sprintec 28 0.25-35 MG-MCG tablet 1 tablet, Oral, Daily valACYclovir (Valtrex) 500 MG tablet TAKE 1 TABLET BY MOUTH 2 TIMES A DAY IN THE MORNING AND BEFORE BEDTIME FOR 3 DAYS ALLERGIES Allergies Allergen Reactions Codeine Unknown Penicillamine Unknown Penicillin G Hives Sulfa Antibiotics Unknown Sulfamethoxazole-Trimethoprim Other Reaction(s): lips swelling Sumatriptan Other Reaction(s): paresthesias, felt weird PROBLEMS Active Ambulatory Problems Diagnosis Date Noted Amenorrhea 04/07/2023 Birthmark of skin 04/07/2023 Constipation 04/07/2023 Chronic GERD 04/07/2023 Goiter ([facility]/HCC) 04/07/2023 Migraine without aura and without status migrainosus, not intractable ([facility]/HCC) 04/07/2023 Moderately severe depression ([facility]/HCC) 04/07/2023 Resolved Ambulatory Problems Diagnosis Date Noted No Resolved Ambulatory Problems Past Medical History: Diagnosis Date Allergic Depression (CMS/HCC) Drug addiction (CMS/HCC) Enlarged thyroid (CMS/HCC) Hepatitis C (CMS/HCC) Hepatitis C (CMS/HCC) Hx of abnormal cervical Pap smear 2014 Migraine (CMS/HCC) Seasonal allergies UTI (urinary tract infection) Vaccine for VZV (varicella-zoster virus) HISTORY PAST MEDICAL HISTORY SOCIAL HISTORY Past Medical History: Diagnosis Date Allergic Depression (CMS/HCC) Drug addiction (CMS/HCC) Heroin , alcohol sober 2015 to 2019 Enlarged thyroid (CMS/HCC) Hepatitis C (CMS/HCC) treatment 2018 Hepatitis C (CMS/HCC) treatment 2018 Hx of abnormal cervical Pap smear 2014 had laser cervix for pre cancerous changes Migraine (CMS/HCC) Seasonal allergies UTI (urinary tract infection) Vaccine for VZV (varicella-zoster virus) Social History Tobacco Use Smoking status: Former Current packs/day: 0.00 Types: Cigarettes Quit date: 03/22/2017 Years since quittin.0 Smokeless tobacco: Never Tobacco comments: Last smoked : 1- 5 years Vaping Use Vaping status: Never Used Substance Use Topics Alcohol use: Not Currently Comment: caffeine intake : 1-2 cups per day Drug use: Not Currently Comment: hx of cocaine, heroin, alcohol addiction, quit in 2016 FAMILY HISTORY Family History Problem Relation Name Age of Onset Thyroid disease Mother Fibromyalgia Mother Asthma Mother Alcohol abuse Father Uterine cancer Mother's Sister Hypertension Maternal Grandmother Bone cancer Maternal Grandmother Bone cancer Maternal Grandfather Lung cancer Paternal Grandfather Bone cancer Paternal Grandfather Hypertension Paternal Grandfather SURGICAL HISTORY Past Surgical History: Procedure Laterality Date CERVICAL BIOPSY W/ LOOP ELECTRODE EXCISION 2014 SECTION, CLASSIC 06/29/2019 SECTION, LOW TRANSVERSE 10/16/2021 CYSTOSCOPY 2018 to stretch bladder TONSILLECTOMY age 3 REVIEW OF SYSTEMS Review of Systems: Review of Systems OBJECTIVE Objective: OBGyn Exam Vitals: Estimated body mass index is 24.49 kg/m as calculated from the following: Height as of 06/16/23: 5' 2.25 . Weight as of 03/24/24: 135 lb. BP: Patient's last menstrual period was 01/21/2024. ASSESSMENT & PLAN ICD-10-CM 1. 13 weeks gestation of Z3A.13 2. First trimester Z34.91 New OB: Patient presents today for 1st time obstetrics appointment with provider. Patient is currently 13w3d . Patients history has been reviewed in great detail including any potential risks. Patient stated she currently has no complaints. Expectations throughout regarding labs, ultrasounds, and appointments have been discussed with the patient in detail. It was reiterated that the patient is to drink 6-8 glasses of water a day, eat 6 small meals a day, do not consume raw or undercooked meat, and stay away from [facility]. Patient has been consulted regarding any further do's and don'ts of . Patient voiced understanding and all questions and concerns were answered. No orders of the defined types were placed in this encounter. Follow Up: Patient is to return in 4 weeks for routine OB appointment. Documented by Pat Jaime MA on behalf of: Jaguar Quintero DO documented in this encounter [facility] 03-24-2024 History of Presen t illness Narrative [...] 04/07/2023 Constipation 04/07/2023 Chronic GERD 04/07/2023 Goiter ([facility]/HCC) 04/07/2023 Migraine without aura and without status migrainosus, not intractable (CMS/HCC) 04/07/2023 Moderately severe depression (CMS/HCC) 04/07/2023 Resolved Ambulatory Problems Diagnosis Date Noted No Resolved Ambulatory Problems Past Medical History: Diagnosis Date Allergic Depression (CMS/HCC) Drug addiction (CMS/HCC) Enlarged thyroid (CMS/HCC) Hepatitis C (CMS/HCC) Hepatitis C (CMS/HCC) Hx of abnormal cervical Pap smear 2014 Migraine (CMS/HCC) Seasonal allergies UTI (urinary tract infection) Vaccine [...] or undercooked meat, and stay away from [facility]. Patient has also been advised to not [...] Chrissy Gomez MA documented in this encounter [facility] 12-02-2022 Evaluation note Encounter Date Diagnosis Assessment [...] time. Nov, Concentration deficit (ICD-10 - R41.840) [facility] Other 04-27-2023 Evaluation note* Encounter Date Diagnosis [...] f/u if no improvement or worsening symptoms. [facility] Other 03-16-2023 Evaluation note* Encounter Date Diagnosis [...] Z86.19) May, Chronic fatigue (ICD-10 - R53.82) [facility] Other 03-06-2023 Evaluation note* Encounter Date Diagnosis Assessment Notes Treatment Notes Treatment Clinical Notes May, SEEMA (generalized anxiety disorder) (ICD-10 - F41.1) She will call if this does not adequately control her symptoms May, Encounter for other contraceptive management (ICD-10 - Z30.8) [facility] Other 02-16-2023 Evaluation note* Encounter Date Diagnosis Assessment Notes Treatment Notes Treatment Clinical Notes Apr, SEEMA (generalized anxiety disorder) (ICD-10 - F41.1) [facility] Other 07-28-2022 NoteOPERATIVE NOTE OPERATION DATE: 10/16/2021 PROCEDURE: Repeat low transverse section. PREOPERATIVE DIAGNOSIS: 1. Intrauterine at 39 weeks. 2. Previous . POSTOPERATIVE DIAGNOSIS: 1. Intrauterine at 39 weeks. 2. Previous . ANESTHESIA: Spinal with Duramorph. SURGEON: Jaguar Quintero D.O. PACKERHEAD MACHINE OPERATOR: KATHERINE Dao URINE OUTPUT: Yellow and clear. [...] patient's uterus and extended laterally digitally. The infant was then delivered atraumatically after the bladder [...] to the Recovery Room [facility] stable condition.[id number] Note DISCHARGE DATE: 10/18/2021 PRIMARY DIAGNOSES: 1. [...] pain free and no longer on narcotics.[id number] History general Narrative - Reported* Type Description Date Medical History Hep C - cured as of August 2017 Medical History Miscarriage 06/2018 Surgical History Pre cancerous cells removed- ou tpatient Derm procedure 2012 Surgical History csection 10/16/2021 [facility] Other [id number] History general Narrative - Reported* Type Description Date Medical History Hep C - cured as of August 2017 Medical History Miscarriage 06/2018 Surgical History Pre cancerous cells removed- outpatient Derm procedure 2012 Surgical History x 2 10/16/2021 Surgical History tonsillectomy Hospitalization History see above Hospitalization History child x 2 [facility] Other Evaluation noteNo InformationNort [employer] Other Evaluation noteNo assessment information available [facility] Work Phone: Evaluation note* Diagnosis Missed menses 8 weeks gestation of , unspecified gestational age Encounter for supervision of normal first in first trimester Nausea and vomiting in Unspecified vomiting of , unspecified as to episode of care documented in this encounter [facility] Healthcare[facility]* Diagnosis 13 weeks gestation of First trimester state, incidental [facility] Additional Instructions Flexeril for needed for muscle spasms You cannot work or drive when taking Flexeril Ice for the next 24 hours and then rotate heat Tylenol or Motrin if needed for pain Take steroids as directed Follow-up with your doctor Gentle range of motion Avoid heavy lifting Return here [facility] any problems persist [facility] Work Phone: Summary Purpose Family History No Family History Records Found Relationship Condition Age at Onset Recorded Date/T joe Not Specified No pertinent family history Unknown Advance Directives No Advanced Directives Records Found Advance Directive Response Recorded Date/ Time Advance Directives No April 2:38pm Advance Directive Response Recorded Date/ Time Advance Directives No April 1:38pm Chief Complaint and Reason for Visit Chief Complaint F41.1 R53.82 Chief Complaint pain back of neck,he adache Chief Complaint Admit Date vomiting March 04, 2024 10:59am Vomiting, 11 wks April 05, 2024 2:35pm Chief Complaint Admit Date vomiting March 04, 2024 10:59am Vomiting, 11 wks April 05, 2024 2:35pm hard time urinating, vomiting, 18 wks pr egnant May 16, 2024 9:54am Chief Complaint Admit Date vomiting March 04, 2024 10:59am Vomiting, 11 wks April 05, 2024 2:35pm hard time urinating, vomiting, 18 wks pr egnant May 16, 2024 9:54am 17 wks iup vomiting May 19, 2024 8:48am Reason for Referral Reason concentration issues , uncontrolled anxiety, eval for ADHD Diagnosis 1 Concentration defici t (R41.840) Referral Organization [facility] [place] Referring Provider First Name Claribel Referring Provider Last Name Abby Referring Provider Specialty Family Medi cine Referred Organization [facility] [place] Referred Address [address], [place],[address] Referred Provider Specialty Psychologist Referral Priority Routine Additional Source Comments INFORMATION SOURCE (unrecogn ized section and content) DATE CREATED AUTHOR 09/13/2017 [facility] DATE CREATED AUTHOR AUTHOR'S ORGANIZ ATION 05/25/2021 [facility] DATE CREATED AUTHOR AUTHOR'S ORGANIZ ATION 02/27/2022 [facility] DATE CREATED AUTHOR AUTHOR'S ORGANIZ ATION 04/25/2024 [facility] EPIC DATE CREATED AUTHOR AUTHOR'S ORGANIZ ATION 05/21/2024 [facility] REASON FOR VISIT (unrecogniz ed section and content) Reason Comments Amenorrhea Reason Comments Routine Visit Care Teams (unrecognized sec tion and content) [...] November 25, 2023 End: November 25, 2023 Drift Miner Relationship Specialty Start Date End Date John Hollis DO [address] [place] [address] PCP - General Family Medicine 04/12/23 Enoch Villalobos DO [address] [place] [address] PCP - JOSE Cody [facility] 06/21/23 Drift Miner Relationship Specialty Start Date End Date John Hollis DO [address] [place] [address] PCP - General Family Medicine 04/12/23 Enoch Villalobos DO [address] [place] [address] PCP - JOSE Cody [facility] 06/21/23 Team Status: Inactive Member Role Status Dates Yaz Hollis DO Primary Care Provider Active Start: March 04, 2024 End: March 04, 2024 Surjit Stanton DO Emergency Provider Active Start: March 04, 2024 End: March 04, 2024 Team Status: Inactive Member Role Status Dates Yaz Hollis DO Primary Care Provider Active Start: April 05, 2024 End: April 05, 2024 Parminder Powell PA-C Emergency Provider Active Start: April 05, 2024 End: April 05, 2024 Drift Miner Relationship Specialty Start Date End Date John Hollis DO [address] [place] [address] PCP - General Family Medicine 04/12/23 Enoch Villalobos DO [address] [place] [address] PCP Sruthi Cody [facility] 06/21/23 5 Team Status: Inactive Member Role Status Dates Yaz Hollis DO Primary Care Provider Active Start: May 16, 2024 End: May 16, 2024 Glenn Abdullahi APRN Emergency Provider Active Start: May 16, 2024 End: May 16, 2024 Team Status: Inactive Member Role Status Dates Yaz Hollis DO Primary Care Provider Active Start: May 19, 2024 End: May 19, 2024 Glenn Abdullahi APRN Emergency Provider Active Start: May 19, 2024 End: May 19, 2024 Goals (unrecognized section and content) Goals may [...] BE BASED ON THE PRIMARY CLINICAL RECORDS. [employer] provides no warranty or guarantee of the accuracy or completeness of information in this document.
[2024-06-01 10:08] LABS: Age Gdln ACOG Testing Note (.); HPV Aptima Negative (Negative); IGP, Aptima HPV, rfx 16/18,45 Note (.)
== END 2024-05-25 18:43 | disposition home or self-care (01) ==
LOC: LAB 18:42
PROVIDERS: PCP Family Medicine; Visit Provider Physician Assistant
DX: Z01.419 Encounter for gynecological examination (general) (routine) without abnormal findings (principal)
CPT/HCPCS: 87624; 88175

== ENCOUNTER 2024-06-08 10:37 | Outpatient (OUT) | payer BC, SELFPAY ==
[2024-06-10 01:07] LABS: AFP Value 82.9 ng/mL (.); Gest. Age on Collection Date 19.9 weeks (.); Insulin Dep Diabetes No (.); Maternal Age At EDD 31.2 yr (.); OSBR Risk 1 IN 2661 (.); Results Report (.)
== END 2024-06-08 10:38 | disposition home or self-care (01) ==
PROVIDERS: PCP Family Medicine; Visit Provider Physician Assistant
DX: Z34.92 Encounter for supervision of normal pregnancy, unspecified, second trimester (principal)
CPT/HCPCS: 36415; 82105

== ENCOUNTER 2024-08-10 11:46 | Observation (INO) | payer BC, SELFPAY ==
--- OUTSIDE RECORDS SUMMARY | 2024-08-10 10:44 | XMS_ITS ---
Author Name Auto Generated Organization [place] Support Name Relationship Address Phone LUIS FARRIS Next of Kin [address] [place] [address] + SHANITA GARCIA Next of Kin Unknown [phone] LUIS FARRIS Next of Kin [address] [place] [address] + SHANITA GARCIA Next of Kin Unknown [phone] LUIS FARRIS Next of Kin [address] [place] [address] + MANJU GARCIALOJAYDEN Next of Kin Unknown [phone] Luis Farris Next of Kin [address] [place] [address] + Shanita Garcia Next of Kin [address] [place] [address] + LUIS FARRIS Next of Kin [address] [place] [address] + SHANITA GARCIA Next of Kin Unknown [phone] BRENTON LUIS Next of Kin [address] [place] [address] + MANJU GARCIALOJAYDEN Next of Kin Unknown [phone] Brenton Luis Next of Kin [address] [place] [address] + Grosswiler, Laloni Next of Kin [address] [place] [address] + FARRIS, LUIS Next of Kin [address] [place] [address] + GROSSWILER, LALONI Next of Kin Unknown [phone] Farris, Luis Next of Kin [address] [place] [address] + Aleishawiler, Laloni Next of Kin [address] [place] [address] + Farris, Luis Next of Kin [address] [place] [address] + Grosswiler, Laloni Next of Kin [address] [place] [address] + FARRIS, LUIS Next of Kin [address] [place] [address] + ALEISHAWILER, LALONI Next of Kin Unknown [phone] Farris, Luis Next of Kin [address] [place] [address] + Aleishawiler, Laloni Next of Kin [address] [place] [address] + FARRIS, LUIS Next of Kin [address] [place] [address] + GROSSWILER, LALONI Next of Kin Unknown [phone] FARRIS, LUIS Next of Kin [address] [place] [address] + GROSSWILER, LALONI Next of Kin Unknown [phone] Farris, Luis Next of Kin [address] [place] [address] + Aleishawiler, Laloni Next of Kin [address] [place] [address] + Cattano, [place] [address] + Shanita Garcia Next of Kin [address] [place] [address] + LUIS FARRIS Next of Kin [address] [place] [address] + SHANITA GARCIA Next of Kin Unknown [phone] LUIS FARRIS Next of Kin [address] [facility] [place] [address] + SHANITA GARCIA Next of Kin Unknown [phone] Care Team Providers Care Design Drafter Name Role Phone GABBY GONSALVES Attending Unavailable YANIV LAU Attending Unavailable GABBY GONSALVES Attending Unavailable GABBY GONSALVES Referring Unavailable CORBY CAUSEY Attending Unavailable RICARDO POWELL Attending Unavailable RICARDO POWELL Referring Unavailable GABBY GONSALVES Attending Unavailable Yaz Hollis Primary Care Unavailable Surjit Stanton Admitting Unavailable Surjit Stanton Attending Unavailable Yaz Hollis Primary Care Unavailable Parminder Powell Admitting Unavailable Parminder Powell Attending Unavailable Yaz Hollis Primary Care Unavailable Kaylen, Glenn Admitting Unavailable Minesh Abdullahiothy Attending Unavailable Yaz Hollis Primary Care Unavailable Kaylen, Glenn Admitting Unavailable Kaylen, Glenn Attending Unavailable Yaz Hollis Primary Care Unavailable Mateo Navas Admitting Unavailable Mateo Navas Attending Unavailable Yaz Hollis Primary Care Unavailable Parminder Powell Admitting Unavailable Parminder Powell Attending Unavailable Vianney Genao Admitting Unavailable Vianney Genao Attending Unavailable Yaz Hollis Primary Care Unavailable PROBLEMS DATE TYPE CONDITION / CODE ATTENDING STATUS [facility] 04/05/2024 Unknown Vomiting of , unspecified / O21.9(ICD-10) Parminder Powell [facility] 03/04/2024 Unknown Nausea with vomi ting, unspecified / R11.2(ICD-10) Surjit Stanton [facility] 11/25/2023 Unknown Headache, unspec ified / R51.9(ICD-10) Vianney Genao [facility] 11/25/2023 Unknown Cervicalgia / M54.2(ICD-10) Vianney Genao [facility] PROCEDURES No Procedure Records Found RESULTS US OB LIMITED 1+ FETUSES Observed: 07/19 9:13 AM Status: F Source: [facility] EPIC Order Comment: US OB PLACENT A W US OB TRANSVAGINAL Estimated Date of Delivery: 10/27/24 Gestational Age as of 06/21/2024: 21w5d EXAM: US OB LIMITED 1+ FETUS ES HISTORY: Low-lying placenta. ALINA 10/27/2024. . x2. COMPARISON: U/S OB 06/12/2024. TECHNIQUE: Two-dimensional transabdominal grayscale ultrasound imaging of the pelvis was performed. FINDINGS: Gestation: Single Presentation: Cephalic Cardiac Activity: 150 beats per minute Placental Location: Posterior with no sonographic abnormalities identified. Distance from Placental Tip to Cervix: 3.9 cm Cervical Length: 4.7 cm Amniotic Fluid Index: Not measured, appears visually adequate IMPRESSION: 1. Single, live intrauterine gestation 25 weeks, 5 days by LMP. 2. Unremarkable placenta. Placenta previous is no longer demonstrated. Interpreted by: Electronically signed by REMEDIOS JO II, MD, PHD at 23-Jul-2024 08:53:16 PM [facility] DIPSTICK AND MICROSCOPIC Collected: 12/2024 4:27 PM Status: F Source: [facility] Order Comment: Name Collecti on Type:: Clean-Voided Midstream TYPE CODE TESTS RESULT OUT OF RANGE REFERENCE UNITS LAB UCOL Color,Urine Light-Yellow Yellow LAB UAPP Appearance,Uri ne Cloudy Abnormal Alert Clear LAB USG Specificy [place],Urine 1.019 Normal 1.001-1.030 LAB UPH pH,Urine 8.5 Normal 5.0-9.0 LAB ULE Leukocyte Esterase,Urine 3+ High Negative LAB UNIT Nitrite,Urine Negative Negative LAB UPRO Protein,Urine 30 High Negative mg/dL LAB UGL Glucose,Urine (UA) 50 High Normal mg/dL LAB UKET Ketones,Urine 4+ High Negative LAB UURO Urobilinogen,U rine Normal Normal LAB UBIL Bilirubin,Urin e Negative Negative LAB UBLD Occult Blood,Urine Negative Negative Result Comment: PERFORMED BY : [place] [address] PATHOLOGIST HEATER TENDER SARAH ANDREWS M.D. LAB URBC RBC,Urine 3-4 0-4 [HPF] LAB UWBC WBC,Urine 10-19 High 0-4 [HPF] LAB USQEPI Squamous Epithelial Cell,Urine 5-9 High 0-2 [HPF] LAB UCRY Othe Crystals,Urine 2+ LAB UBACT Bacteria,Urine Rare None Seen LAB UHYALC Hyaline Casts,Urine None 0-8 LAB MUCUS Mucus,Urine Rare Result Comment: PERFORMED BY : [address] [address] PATHOLOGIST HEATER TENDER SARAH ANDREWS M.D. Performed By: #### ADDONUAPL US, URDS, CUU #### [place] [id number] [facility] DRUG SCREEN,URINE Collected: 06/29/2024 4:27 PM Stat us: F Source: [facility] TYPE CODE TESTS RESULT OUT OF RANGE REFERENCE UNITS LAB URAMPS Amphetamine Screen,Urine Negative Negative LAB URBARBS Barbiturate Screen,Urine Negative Negative LAB URBENZS Benzodiazepines Screen,Urine Negative Negative LAB URCOCS Cocaine Screen,Urine Negative Negative LAB UROPIS Opiate Screen,Urine Negative Negative LAB URPCPS Phencyclidine Screen,Urine Negative Negative LAB URTHCS Cannabinoid Screen,Urine Positive High Negative Result Comment: These are un confirmed results and should not be used for legal purposes. Drug Cut-Off Concentration: AMPH 1000 ng/mL DENIS 200 ng/mL DIOR 200 ng/mL COCM 300 ng/mL OP 300 ng/mL PCP 25 ng/mL THC 20 ng/mL PERFORMED BY: [place] [id number] PATHOLOGIST HEATER TENDER SARAH ANDREWS M.D. Performed By: #### ADDONUAPL US, URDS, CUU #### [place] [id number] [facility] URINE CULTURE Observed: 06/29/2024 4:27 PM Status: F Source: [facility] <9,000 colonies/ml mixed bacterial skin contaminants 2 Days PERFORMED BY: [place] [address] PATHOLOGIST HEATER TENDER SARAH ANDREWS M.D. Performed By: #### ADDONUAPL US, URDS, CUU #### [facility] [address] [place] [address] REDRAW POTASSIUM Collected: 06/29/2024 4:27 PM Statu s: F Source: [facility] TYPE CODE TESTS RESULT OUT OF RANGE REFERENCE UNITS LAB REDRAW K Redraw Potassium 3.8 Normal 3.5-5.1 mmol/L Performed By: #### REDRAW MG , REDRAW K, REDRAW AST #### [facility] [address] [place] [address] REDRAW MAGNESIUM Collected: 06/29/2024 4:27 PM Statu s: F Source: [facility] TYPE CODE TESTS RESULT OUT OF RANGE REFERENCE UNITS LAB REDRAW MG Redraw Magnesium 1.7 Low 1.9-2.7 mg/dL Performed By: #### REDRAW MG , REDRAW K, REDRAW AST #### [facility] [address] [place] [address] REDRAW AST Collected: 4:27 PM Status: F Source: [facility] TYPE CODE TESTS RESULT OUT OF RANGE REFERENCE UNITS LAB REDRAW AST Redraw AST 10 Low 13-39 U/L Result Comment: PERFORMED BY : [place] [address] PATHOLOGIST HEATER TENDER SARAH ANDREWS M.D. Performed By: #### REDRAW MG , REDRAW K, REDRAW AST #### [facility] [address] [place], [place] [id number] [facility] COMPLETE BLOOD COUNT AUTO DIFF Collected: 06/29/2024 4:27 PM Status: F Source: F [facility] TYPE CODE TESTS RESULT OUT OF RANGE REFERENCE UNITS LAB WBC White Blood Count 11.4 Normal 3.8-11.6 10*3/uL LAB UNWBC Uncorrected WBC 11.4 Normal 3.8-11.6 10*3/uL LAB RBC Red Blood Count 3.69 Normal 3.60-5.00 10*6/u L LAB HGB Hemoglobin 10.3 Low 11.8-15.4 g/dL LAB HCT Hematocrit 31.2 Low 34.0-46.4 % LAB MCV Mean Corpuscular Volume 84.8 Normal 80-100 fL LAB MCH Mean Corpuscular Hemoglobin 27.9 Normal 24.7-34.3 pg LAB MCHC Mean Corpuscular HGB Conc 32.9 Normal 32.0-35.0 g/dL LAB RDW Red Cell Distribution Width 14.2 Normal 11.9-15.3 % LAB PLT Platelet Count 206 Normal 150-450 10*3/uL LAB MPV Mean Platelet Volume 11.0 High 6.3-10.7 fL LAB MDW Monocyte Distribution Width 20.01 High 0.00-20.00 % Result Comment: For adults i n ED, MDW > 20.0 may be associated with a higher risk of sepsis during the first 12 hrs of hospital admission LAB NE% Neutrophils % (Auto) 91.8 . % LAB LY% Lymphocytes % (Auto) 6.0 . % LAB MO% Monocytes % (Auto) 1.9 . % LAB EO% Eosinophils % (Auto) 0.0 . % LAB BA% Basophils % (Auto) 0.3 . % LAB NRBC% NRBC% 0.1 Normal 0-0.5 /100{WBC } LAB NE# Neutrophils # (Auto) 10.5 High 1.8-7.7 10*3/uL LAB LY# Lymphocytes # (Auto) 0.7 Low 1.00-4.8 10*3/uL LAB MO# Monocytes # (Auto) 0.2 Normal 0.0-0.8 10*3/uL LAB EO# Eosinophils # (Auto) 0.0 Normal 0.0-0.45 10*3/uL LAB BA# Basophils # (Auto) 0.0 Normal 0.0-0.2 10*3/uL Result Comment: PERFORMED BY : [facility] [place] [place] [address] PATHOLOGIST HEATER TENDER SARAH ANDREWS M.D. Performed By: #### CMP, CBC, MG #### [facility] [address] COMPREHENSIVE METABOLIC PANEL Collected: 06/29/2024 3 :13 PM Status: F Source: [facility] TYPE CODE TESTS RESULT OUT OF RANGE REFERENCE UNITS LAB GLU Glucose 130 High 70-100 mg/dL Result Comment: Random Gluco se Reference Range is dependent on time and content of last meal. Glucose of more than 200 mg/dL in a nonstressed, ambulatory subject supports the diagnosis of Diabetes Mellitus. ADA recommended reference range LAB BUN Blood Urea Nitrogen 8 Normal 7-25 mg/d L LAB CREATT Creatinine 0.44 Low 0.60-1.20 mg/dL LAB GFReNR Estimated GFR >60.0 mL/Min LAB NA Sodium 138 Normal 136-145 mmol/L LAB K Potassium 3.5-5.1 Result Comment: Specimen hem olyzed, redraw requested LAB CL Chloride 106 Normal 98-107 mmol/L LAB CO2 Carbon Dioxide 19.4 Low 21.0-31.0 mmol/L LAB GAP Anion Gap Test not performed 6.0-15.0 LAB CA Calcium 9.5 Normal 8.6-10.3 mg/dL LAB TP Total Protein 7.5 Normal 6.4-8.9 g/dL LAB ALB Albumin Level 3.8 Normal 3.5-5.7 g/dL LAB GLOB Globulin 3.7 g/dL LAB AGRATIO Albumin/Globulin Ratio 1.0 LAB BILIT Bilirubin,Total 0.5 Normal 0.3-1.0 mg/dL LAB AST Aspartate Amino Transferase 13-39 Result Comment: Specimen hem olyzed, redraw requested LAB ALT Alanine Aminotransferase 7 Normal 7-52 U/L LAB ALP Alkaline Phosphatase 53 Normal 34-104 U/L LAB CRCLPHA Creatinine Clr C [facility] Pharmacy 173.12 Performed By: #### CMP, CBC, MG #### [facility] [address] [place] [id number] [facility] MAGNESIUM Collected: 3:13 PM Status: F Source: [facility] TYPE CODE TESTS RESULT OUT OF RANGE REFERENCE UNITS LAB MG Magnesium 1.9-2.7 Result Comment: Specimen hem olyzed, redraw requested PERFORMED BY: [place] [address] PATHOLOGIST HEATER TENDER SARAH ANDREWS M.D. Performed By: #### CMP, CBC, MG #### [facility] [address] [place] [address] ECG 12 LEAD ECG Observed: 06/29/2024 3:09 PM Status: COMPLETED Source: [facility] [place] [address] [place] [address] Electrocardiograph Report Signed Patient: Nicole Farris MR#: [id number] : 1995 Acct:[id number] Age/Sex: 28 / F ADM Date: 06/29/24 Loc: ER Room: Type: [facility] ER Attending Dr: Ordering Provider: Parminder Powell PA-C Date of Service: 06/29/2401/13/1509 ECG/ECG 12 lead ECG: Nausea/Vomiting/Diarrhea Copies to: Test Reason : Blood Pressure : 127/84 mmHG Vent. Rate : 95 BPM Atrial Rate : 95 BPM P-R Int : 118 ms QRS Dur : 72 ms QT Int : 392 ms P-R-T Axes : 44 76 45 degrees QTcB Int : 492 ms Normal sinus rhythm Prolonged QT Abnormal ECG No previous ECGs available Confirmed by SALUD SCHWARZ DO ([id number]) on 06/30/2024 7:11:38 PM Referred By: Electronically Signed By: SALUD SCHWARZ DO Transcribed By: MUS Signed By Salud Schwarz DO 06/30 DRUG SCREEN,URINE Collected: 06/07/2024 12:13 PM Sta tus: F Source: [facility] TYPE CODE TESTS RESULT OUT OF RANGE REFERENCE UNITS LAB URAMPS Amphetamine Screen,Urine Negative Negative LAB URBARBS Barbiturate Screen,Urine Negative Negative LAB URBENZS Benzodiazepines Screen,Urine Negative Negative LAB URCOCS Cocaine Screen,Urine Negative Negative LAB UROPIS Opiate Screen,Urine Negative Negative LAB URPCPS Phencyclidine Screen,Urine Negative Negative LAB URTHCS Cannabinoid Screen,Urine Positive High Negative Result Comment: These are un confirmed results and should not be used for legal purposes. Drug Cut-Off Concentration: AMPH 1000 ng/mL DENIS 200 ng/mL DIOR 200 ng/mL COCM 300 ng/mL OP 300 ng/mL PCP 25 ng/mL THC 20 ng/mL PERFORMED BY: [place] [address] PATHOLOGIST HEATER TENDER SARAH ANDREWS M.D. Performed By: #### URDS #### [place] [id number] [facility] URINALYSIS Collected: 12:13 PM Status: F Source: [facility] Order Comment: Name Collecti on Type:: Clean-Voided Midstream TYPE CODE TESTS RESULT OUT OF RANGE REFERENCE UNITS LAB UCOL Color,Urine Light-Yellow Yellow LAB UAPP Appearance,Uri ne Clear Clear LAB USG Specificy [place],Urine 1.020 Normal 1.001-1.030 LAB UPH pH,Urine 8.0 Normal 5.0-9.0 LAB ULE Leukocyte Esterase,Urine Negative Negative LAB UNIT Nitrite,Urine Negative Negative LAB UPRO Protein,Urine Negative Negative LAB UGL Glucose,Urine (UA) 200 High Normal mg/dL LAB UKET Ketones,Urine 4+ High Negative LAB UURO Urobilinogen,U rine Normal Normal LAB UBIL Bilirubin,Urin e Negative Negative LAB UBLD Occult Blood,Urine Negative Negative Result Comment: PERFORMED BY : [place] [address] PATHOLOGIST HEATER TENDER SARAH ANDREWS M.D. Performed By: #### UA #### [place] [id number] [facility] COMPLETE BLOOD COUNT AUTO DIFF Collected: 06/07/2024 11:21 AM Status: F Source: [facility] TYPE CODE TESTS RESULT OUT OF RANGE REFERENCE UNITS LAB WBC White Blood Count 12.3 High 3.8-11.6 10*3/uL LAB UNWBC Uncorrected WBC 12.3 High 3.8-11.6 10*3/uL LAB RBC Red Blood Count 3.92 Normal 3.60-5.00 10*6/u L LAB HGB Hemoglobin 11.4 Low 11.8-15.4 g/dL LAB HCT Hematocrit 33.6 Low 34.0-46.4 % LAB MCV Mean Corpuscular Volume 85.7 Normal 80-100 fL LAB MCH Mean Corpuscular Hemoglobin 29.1 Normal 24.7-34.3 pg LAB MCHC Mean Corpuscular HGB Conc 34.0 Normal 32.0-35.0 g/dL LAB RDW Red Cell Distribution Width 13.6 Normal 11.9-15.3 % LAB PLT Platelet Count 190 Normal 150-450 10*3/uL LAB MPV Mean Platelet Volume 11.1 High 6.3-10.7 fL LAB MDW Monocyte Distribution Width 22.40 High 0.00-20.00 % Result Comment: For adults i n ED, MDW > 20.0 may be associated with a higher risk of sepsis during the first 12 hrs of hospital admission LAB NE% Neutrophils % (Auto) 90.3 . % LAB LY% Lymphocytes % (Auto) 7.2 . % LAB MO% Monocytes % (Auto) 2.4 . % LAB EO% Eosinophils % (Auto) 0.0 . % LAB BA% Basophils % (Auto) 0.1 . % LAB NRBC% NRBC% 0.1 Normal 0-0.5 /100{WBC } LAB NE# Neutrophils # (Auto) 11.1 High 1.8-7.7 10*3/uL LAB LY# Lymphocytes # (Auto) 0.9 Low 1.00-4.8 10*3/uL LAB MO# Monocytes # (Auto) 0.3 Normal 0.0-0.8 10*3/uL LAB EO# Eosinophils # (Auto) 0.0 Normal 0.0-0.45 10*3/uL LAB BA# Basophils # (Auto) 0.0 Normal 0.0-0.2 10*3/uL Result Comment: PERFORMED BY : [place] [address] PATHOLOGIST HEATER TENDER SARAH ANDREWS M.D. Performed By: #### HEPATIC, CBC, BMP, LIPASE #### [address] HEPATIC PANEL Collected: 06/07/2024 11:21 AM Status: F Source: [facility] TYPE CODE TESTS RESULT OUT OF RANGE REFERENCE UNITS LAB TP Total Protein 7.1 Normal 6.4-8.9 g/dL LAB ALB Albumin Level 3.9 Normal 3.5-5.7 g/dL LAB GLOB Globulin 3.2 g/dL LAB AGRATIO Albumin/Globulin Ratio 1.2 LAB BILIT Bilirubin,Total 0.3 Normal 0.3-1.0 mg/dL LAB BILID Bilirubin,Direct 0.00 Low 0.03-0.18 mg/dL Result Comment: If the DBIL is less than 0.1, IBIL is not able to be calculated. LAB BILII Bilirubin,Indirect 0.3 mg/dL LAB AST Aspartate Amino Transferase 11 Low 13-39 U/L LAB ALT Alanine Aminotransferase 7 Normal 7-52 U/L LAB ALP Alkaline Phosphatase 44 Normal 34-104 U/L Performed By: #### HEPATIC, CBC, BMP, LIPASE #### [facility] [address] [place] [id number] [facility] BASIC METABOLIC PANEL Collected: 2024 11:21 AM Status: F Source: [facility] TYPE CODE TESTS RESULT OUT OF RANGE REFERENCE UNITS LAB GLU Glucose 156 High 70-100 mg/dL Result Comment: Random Gluco se Reference Range is dependent on time and content of last meal. Glucose of more than 200 mg/dL in a nonstressed, ambulatory subject supports the diagnosis of Diabetes Mellitus. ADA recommended reference range LAB BUN Blood Urea Nitrogen 6 Low 7-25 mg/dL LAB CREATT Creatinine 0.46 Low 0.60-1.20 mg/dL LAB GFReNR Estimated GFR >60.0 mL/Min LAB NA Sodium 138 Normal 136-145 mmol/L LAB K Potassium 3.4 Low 3.5-5.1 mmol/L LAB CL Chloride 109 High 98-107 mmol/L LAB CO2 Carbon Dioxide 19.6 Low 21.0-31.0 mmol/L LAB GAP Anion Gap 12.8 Normal 6.0-15.0 meq/L LAB CA Calcium 8.7 Normal 8.6-10.3 mg/dL LAB CRCLPHA Creatinine Clr Calc Pharmacy 167.01 Performed By: #### HEPATIC, CBC, BMP, LIPASE #### [facility] [address] [place] [id number] [facility] LIPASE Collected: 11:21 AM Status: F Source: [facility] TYPE CODE TESTS RESULT OUT OF RANGE REFERENCE UNITS LAB LIPASE Lipase 13.0 Normal 11.0-82.0 U/L Result Comment: PERFORMED BY : [place] [address] PATHOLOGIST HEATER TENDER SARAH ANDREWS M.D. Performed By: #### HEPATIC, CBC, BMP, LIPASE #### [facility] [address] [place] [id number] [facility] US OB 14+ WEEKS ANATOMY SCAN Observed: 0 05/25/2024 1:27 PM Status: F Source: [facility] EPIC Order Comment: US OB ANATOMY SINGLE W US OB CERVICAL LENGTH Estimated Date of Delivery: 10/27/24 Gestational Age as of 05/25/2024: 17w6d EXAM: US OB 14+ WEEKS ANATOM Y SCAN HISTORY: anatomy. COMPARISON: OB ultrasound 03/24/2024. TECHNIQUE: Two-dimensional transabdominal grayscale ultrasound imaging of the pelvis was performed. FINDINGS: Gestation: Single Presentation: Cephalic Cardiac Activity: 148 beats per minute Placental Location: Posterior with marginal previa Distance from Placental Tip to Cervix: 1.7 cm Cervical Length: 4.0 cm Amniotic Fluid: Appears adequate MEASUREMENTS: BPD: 4.7 cm EGA: 20 weeks 1 days HC: 17.9 cm EGA: 20 weeks 3 days AC: 15.1 cm EGA: 20 weeks 2 days FL: 3.4 cm EGA: 20 weeks 5 days HC/AC Ratio: 1.19 The gestational age by today's ultrasound is 20 weeks 3 days (+/- 10 days gestation). Estimated Weight: 357 grams, +/- 54 grams ( 0 lb 13 oz). Weight Percentile for gestational age: 48 % ANATOMY C-Spine: Unremarkable T-Spine: Unremarkable L-Spine: Unremarkable Sacrum: Unremarkable Four Chamber Heart: Unremarkable LVOT: Unremarkable RVOT: Unremarkable Stomach: Unremarkable Kidneys: Unremarkable Bladder: Unremarkable Diaphragm: Unremarkable Cord insertion: Unremarkable Cord vessels: Three Lateral Ventricles: Unremarkable Cerebellum: Unremarkable Cisterna Magna: Unremarkable Posterior Fossa: Unremarkable Right Femur: Unremarkable Left Femur: Unremarkable Right Tib/Fib: Unremarkable Left Tib/Fib: Unremarkable Right Rad/Ulnar: Unremarkable Left Rad/Ulnar: Unremarkable Right Humerus: Unremarkable Left Humerus: Unremarkable Nose/Lips: Unremarkable Orbits: Unremarkable IMPRESSION: 1. Single, live intrauterine gestation 20 weeks, 3 days by LMP. Today's ultrasound measurements correlate with a gestational age of 20 weeks 3 days. Estimated weight is 357 grams, +/- 54 grams ( 0 lb 13 oz) which correlates to 48 %. ALINA is 10/27/2024. 2. Unremarkable ultrasound of the anatomy. 3. Marginal placental previa. Electronically Signed:Electronically signed by REMEDIOS JO II, MD, PHD at 13-Jun-2024 09:57:02 AM [facility] DIPSTICK AND MICROSCOPIC Collected: 9:45 AM Status: F Source: [facility] Order Comment: Name Collecti on Type:: Clean-Voided Midstream TYPE CODE TESTS RESULT OUT OF RANGE REFERENCE UNITS LAB UCOL Color,Urine Light-[place] Abnormal Alert Yellow LAB UAPP Appearance,Uri ne Turbid Abnormal Alert Clear LAB USG Specificy [place],Urine 1.014 Normal 1.001-1.030 LAB UPH pH,Urine 8.0 Normal 5.0-9.0 LAB ULE Leukocyte Esterase,Urine Negative Negative LAB UNIT Nitrite,Urine Negative Negative LAB UPRO Protein,Urine Negative Negative LAB UGL Glucose,Urine (UA) Normal Normal LAB UKET Ketones,Urine 2+ High Negative LAB UURO Urobilinogen,U rine Normal Normal LAB UBIL Bilirubin,Urin e Negative Negative LAB UBLD Occult Blood,Urine Negative Negative Result Comment: PERFORMED BY : [facility] [address] [place] [address] PATHOLOGIST HEATER TENDER SARAH ANDREWS M.D. LAB URBC RBC,Urine 3-4 0-4 [HPF] LAB UWBC WBC,Urine None Seen 0-4 LAB USQEPI Squamous Epithelial Cell,Urine 1-2 0-2 [HPF] LAB UBACT Bacteria,Urine None Seen None Seen LAB UHYALC Hyaline Casts,Urine None 0-8 LAB MUCUS Mucus,Urine Rare Result Comment: PERFORMED BY : [facility] [address] [place] [address] PATHOLOGIST HEATER TENDER SARAH ANDREWS M.D. Performed By: #### ADDONUAPL #### [address] [address] [facility] DRUG SCREEN,URINE Collected: 05/19/2024 9:45 AM Stat us: F Source: [facility] TYPE CODE TESTS RESULT OUT OF RANGE REFERENCE UNITS LAB URAMPS Amphetamine Screen,Urine Negative Negative LAB URBARBS Barbiturate Screen,Urine Negative Negative LAB URBENZS Benzodiazepines Screen,Urine Negative Negative LAB URCOCS Cocaine Screen,Urine Negative Negative LAB UROPIS Opiate Screen,Urine Negative Negative LAB URPCPS Phencyclidine Screen,Urine Negative Negative LAB URTHCS Cannabinoid Screen,Urine Positive High Negative Result Comment: These are un confirmed results and should not be used for legal purposes. Drug Cut-Off Concentration: AMPH 1000 ng/mL DENIS 200 ng/mL DIOR 200 ng/mL COCM 300 ng/mL OP 300 ng/mL PCP 25 ng/mL THC 20 ng/mL PERFORMED BY: [place] [address] PATHOLOGIST HEATER TENDER SARAH ANDREWS M.D. Performed By: #### URDS #### [address] COMPLETE BLOOD COUNT AUTO DIFF Collected: 05/19/2024 9:15 AM Status: F Source: F [facility] TYPE CODE TESTS RESULT OUT OF RANGE REFERENCE UNITS LAB WBC White Blood Count 8.9 Normal 3.8-11.6 10*3/uL LAB UNWBC Uncorrected WBC 8.9 Normal 3.8-11.6 10*3/uL LAB RBC Red Blood Count 3.87 Normal 3.60-5.00 10*6/u L LAB HGB Hemoglobin 11.6 Low 11.8-15.4 g/dL LAB HCT Hematocrit 33.1 Low 34.0-46.4 % LAB MCV Mean Corpuscular Volume 85.6 Normal 80-100 fL LAB MCH Mean Corpuscular Hemoglobin 30.0 Normal 24.7-34.3 pg LAB MCHC Mean Corpuscular HGB Conc 35.0 Normal 32.0-35.0 g/dL LAB RDW Red Cell Distribution Width 13.7 Normal 11.9-15.3 % LAB PLT Platelet Count 161 Normal 150-450 10*3/uL LAB MPV Mean Platelet Volume 11.0 High 6.3-10.7 fL LAB MDW Monocyte Distribution Width 15.92 Normal 0.00-20.00 % LAB NE% Neutrophils % (Auto) 80.0 . % LAB LY% Lymphocytes % (Auto) 14.1 . % LAB MO% Monocytes % (Auto) 4.2 . % LAB EO% Eosinophils % (Auto) 0.3 . % LAB BA% Basophils % (Auto) 1.4 . % LAB NRBC% NRBC% 0.1 Normal 0-0.5 /100{WBC } LAB NE# Neutrophils # (Auto) 7.1 Normal 1.8-7.7 10*3/uL LAB LY# Lymphocytes # (Auto) 1.3 Normal 1.00-4.8 10*3/uL LAB MO# Monocytes # (Auto) 0.4 Normal 0.0-0.8 10*3/uL LAB EO# Eosinophils # (Auto) 0.0 Normal 0.0-0.45 10*3/uL LAB BA# Basophils # (Auto) 0.1 Normal 0.0-0.2 10*3/uL Result Comment: PERFORMED BY : [place] [address] PATHOLOGIST HEATER TENDER SARAH ANDREWS M.D. Performed By: #### HCGQNT, H EPATIC, LIPASE, CBC, CMP, MG #### [facility] [address] COMPREHENSIVE METABOLIC PANEL Collected: 05/19/2024 9 :15 AM Status: F Source: [facility] TYPE CODE TESTS RESULT OUT OF RANGE REFERENCE UNITS LAB GLU Glucose 135 High 70-100 mg/dL Result Comment: Random Gluco se Reference Range is dependent on time and content of last meal. Glucose of more than 200 mg/dL in a nonstressed, ambulatory subject supports the diagnosis of Diabetes Mellitus. ADA recommended reference range LAB BUN Blood Urea Nitrogen 8 Normal 7-25 mg/d L LAB CREATT Creatinine 0.53 Low 0.60-1.20 mg/dL LAB GFReNR Estimated GFR >60.0 mL/Min LAB NA Sodium 136 Normal 136-145 mmol/L LAB K Potassium 3.3 Low 3.5-5.1 mmol/L LAB CL Chloride 107 Normal 98-107 mmol/L LAB CO2 Carbon Dioxide 18.9 Low 21.0-31.0 mmol/L LAB GAP Anion Gap 13.4 Normal 6.0-15.0 meq/L LAB CA Calcium 9.3 Normal 8.6-10.3 mg/dL LAB TP Total Protein 6.7 Normal 6.4-8.9 g/dL LAB ALB Albumin Level 3.8 Normal 3.5-5.7 g/dL LAB GLOB Globulin 2.9 g/dL LAB AGRATIO Albumin/Globulin Ratio 1.3 LAB BILIT Bilirubin,Total 0.3 Normal 0.3-1.0 mg/dL LAB AST Aspartate Amino Transferase 10 Low 13-39 U/L LAB ALT Alanine Aminotransferase 8 Normal 7-52 U/L LAB ALP Alkaline Phosphatase 38 Normal 34-104 U/L LAB CRCLPHA Creatinine Clr C alc Pharmacy 143.53 Performed By: #### HCGQNT, H EPATIC, LIPASE, CBC, CMP, MG #### [address] HEPATIC PANEL Collected: 05/19/2024 9:15 AM Status: F Source: [facility] TYPE CODE TESTS RESULT OUT OF RANGE REFERENCE UNITS LAB BILID Bilirubin,Dir ect 0.00 Low 0.03-0.18 mg/dL Result Comment: If the DBIL is less than 0.1, IBIL is not able to be calculated. LAB BILII Bilirubin,Ind irect 0.3 mg/dL Performed By: #### HCGQNT, H EPATIC, LIPASE, CBC, CMP, MG #### [address] MAGNESIUM Collected: 9:15 AM Status: F Source: [facility] TYPE CODE TESTS RESULT OUT OF RANGE REFERENCE UNITS LAB MG Magnesium 1.4 Low 1.9-2.7 mg/dL Performed By: #### HCGQNT, H EPATIC, LIPASE, CBC, CMP, MG #### [address] LIPASE Collected: 9:15 AM Status: F Source: [facility] TYPE CODE TESTS RESULT OUT OF RANGE REFERENCE UNITS LAB LIPASE Lipase 20.0 Normal 11.0-82.0 U/L Performed By: #### HCGQNT, H EPATIC, LIPASE, CBC, CMP, MG #### [address] HCG,QUANTITATIVE Collected: 9:15 AM Status: F Source: [facility] TYPE CODE TESTS RESULT OUT OF RANGE REFERENCE UNITS LAB HCGQNT HCG,Quantit ative 76135.00 m[iU]/mL Result Comment: Approximate Approximate hCG Gestational Age Range (mIU/ml) (weeks) 0.2-1 5-50 1-2 50-500 2-3 100-5,000 3-4 500-10,000 4-5 1,000-50,000 5-6 10,000-100,000 6-8 15,000-200,000 8-12 10,000-100,000 PERFORMED BY: [place] [address] PATHOLOGIST HEATER TENDER SARAH ANDREWS M.D. Performed By: #### HCGQNT, H EPATIC, LIPASE, CBC, CMP, MG #### [facility] [address] [place], [place] [id number] [facility] URINALYSIS Collected: 11:38 AM Status: F Source: [facility] Order Comment: Name Collecti on Type:: Clean-Voided Midstream TYPE CODE TESTS RESULT OUT OF RANGE REFERENCE UNITS LAB UCOL Color,Urine Light-Yellow Yellow LAB UAPP Appearance,Uri ne Clear Clear LAB USG Specificy [place],Urine 1.020 Normal 1.001-1.030 LAB UPH pH,Urine 8.0 Normal 5.0-9.0 LAB ULE Leukocyte Esterase,Urine Negative Negative LAB UNIT Nitrite,Urine Negative Negative LAB UPRO Protein,Urine Negative Negative LAB UGL Glucose,Urine (UA) 500 High Normal mg/dL LAB UKET Ketones,Urine 4+ High Negative LAB UURO Urobilinogen,U rine Normal Normal LAB UBIL Bilirubin,Urin e Negative Negative LAB UBLD Occult Blood,Urine Negative Negative Result Comment: PERFORMED BY : [place] [id number] PATHOLOGIST HEATER TENDER SARAH ANDREWS M.D. Performed By: #### UA #### [facility] [address] [place], [place] [id number] [facility] COMPLETE BLOOD COUNT AUTO DIFF Collected: 05/16/2024 10:54 AM Status: F Source: [facility] TYPE CODE TESTS RESULT OUT OF RANGE REFERENCE UNITS LAB WBC White Blood Count 13.8 High 3.8-11.6 10*3/uL LAB UNWBC Uncorrected WBC 13.8 High 3.8-11.6 10*3/uL LAB RBC Red Blood Count 3.92 Normal 3.60-5.00 10*6/u L LAB HGB Hemoglobin 11.7 Low 11.8-15.4 g/dL LAB HCT Hematocrit 33.8 Low 34.0-46.4 % LAB MCV Mean Corpuscular Volume 86.3 Normal 80-100 fL LAB MCH Mean Corpuscular Hemoglobin 29.7 Normal 24.7-34.3 pg LAB MCHC Mean Corpuscular HGB Conc 34.5 Normal 32.0-35.0 g/dL LAB RDW Red Cell Distribution Width 13.7 Normal 11.9-15.3 % LAB PLT Platelet Count 186 Normal 150-450 10*3/uL LAB MPV Mean Platelet Volume 11.1 High 6.3-10.7 fL LAB MDW Monocyte Distribution Width Test Not Performed Normal 0.00-20.00 Result Comment: Unable to ca lculate MDW because the Absolute Monocyte Count is <0.8. LAB NE% Neutrophils % (Auto) 94.2 . % LAB LY% Lymphocytes % (Auto) 4.6 . % LAB MO% Monocytes % (Auto) 1.2 . % LAB EO% Eosinophils % (Auto) 0.0 . % LAB BA% Basophils % (Auto) 0.0 . % LAB NRBC% NRBC% 0.0 Normal 0-0.5 /100{WBC } LAB NE# Neutrophils # (Auto) 13.0 High 1.8-7.7 10*3/uL LAB LY# Lymphocytes # (Auto) 0.6 Low 1.00-4.8 10*3/uL LAB MO# Monocytes # (Auto) 0.2 Normal 0.0-0.8 10*3/uL LAB EO# Eosinophils # (Auto) 0.0 Normal 0.0-0.45 10*3/uL LAB BA# Basophils # (Auto) 0.0 Normal 0.0-0.2 10*3/uL Result Comment: PERFORMED BY : [facility] [place] [address] PATHOLOGIST HEATER TENDER SARAH ANDREWS M.D. Performed By: #### HCGQNT, L IPASE, HEPATIC, CBC, CMP #### [facility] [address] [place] [id number] [facility] COMPREHENSIVE METABOLIC PANEL Collected: 05/16/2024 1 0:54 AM Status: F Source: [facility] TYPE CODE TESTS RESULT OUT OF RANGE REFERENCE UNITS LAB GLU Glucose 160 High 70-100 mg/dL Result Comment: Random Gluco se Reference Range is dependent on time and content of last meal. Glucose of more than 200 mg/dL in a nonstressed, ambulatory subject supports the diagnosis of Diabetes Mellitus. ADA recommended reference range LAB BUN Blood Urea Nitrogen 9 Normal 7-25 mg/d L LAB CREATT Creatinine 0.52 Low 0.60-1.20 mg/dL LAB GFReNR Estimated GFR >60.0 mL/Min LAB NA Sodium 136 Normal 136-145 mmol/L LAB K Potassium 3.4 Low 3.5-5.1 mmol/L Result Comment: Hemolysis is present at a level that could interfere with the result. Contact lab if redraw is required LAB CL Chloride 106 Normal 98-107 mmol/L LAB CO2 Carbon Dioxide 16.0 Low 21.0-31.0 mmol/L LAB GAP Anion Gap 17.4 High 6.0-15.0 meq/L LAB CA Calcium 9.4 Normal 8.6-10.3 mg/dL LAB TP Total Protein 7.6 Normal 6.4-8.9 g/dL LAB ALB Albumin Level 4.2 Normal 3.5-5.7 g/dL LAB GLOB Globulin 3.4 g/dL LAB AGRATIO Albumin/Globulin Ratio 1.2 LAB BILIT Bilirubin,Total 0.4 Normal 0.3-1.0 mg/dL LAB AST Aspartate Amino Transferase 17 Normal 13-39 U/L LAB ALT Alanine Aminotransferase 9 Normal 7-52 U/L LAB ALP Alkaline Phosphatase 46 Normal 34-104 U/L LAB CRCLPHA Creatinine Clr C alc Pharmacy 146.48 Performed By: #### HCGQNT, L IPASE, HEPATIC, CBC, CMP #### [facility] [address] [place] [id number] [facility] HEPATIC PANEL Collected: 5 10:54 AM Status: F Source: [facility] TYPE CODE TESTS RESULT OUT OF RANGE REFERENCE UNITS LAB BILID Bilirubin,Dir ect 0.00 Low 0.03-0.18 mg/dL Result Comment: If the DBIL is less than 0.1, IBIL is not able to be calculated. LAB BILII Bilirubin,Ind irect 0.4 mg/dL Performed By: #### HCGQNT, L IPASE, HEPATIC, CBC, CMP #### [facility] [address] [place] [address] LIPASE Collected: 10:54 AM Status: F Source: [facility] TYPE CODE TESTS RESULT OUT OF RANGE REFERENCE UNITS LAB LIPASE Lipase 25.0 Normal 11.0-82.0 U/L Performed By: #### HCGQNT, L IPASE, HEPATIC, CBC, CMP #### [address] HCG,QUANTITATIVE Collected: 10:54 AM Status: F Source: [facility] TYPE CODE TESTS RESULT OUT OF RANGE REFERENCE UNITS LAB HCGQNT HCG,Quantit ative 63287.00 m[iU]/mL Result Comment: Approximate Approximate hCG Gestational Age Range (mIU/ml) (weeks) 0.2-1 5-50 1-2 50-500 2-3 100-5,000 3-4 500-10,000 4-5 1,000-50,000 5-6 10,000-100,000 6-8 15,000-200,000 8-12 10,000-100,000 PERFORMED BY: [place] [address] PATHOLOGIST HEATER TENDER SARAH ANDREWS M.D. Performed By: #### HCGQNT, L IPASE, HEPATIC, CBC, CMP #### [address] DIPSTICK AND MICROSCOPIC Collected: 5:44 PM Status: F Source: [facility] Order Comment: Name Collecti on Type:: Clean-Voided Midstream TYPE CODE TESTS RESULT OUT OF RANGE REFERENCE UNITS LAB UCOL Color,Urine Light-Yellow Yellow LAB UAPP Appearance,Uri ne Clear Clear LAB USG Specificy [place],Urine 1.018 Normal 1.001-1.030 LAB UPH pH,Urine 6.5 Normal 5.0-9.0 LAB ULE Leukocyte Esterase,Urine 3+ High Negative LAB UNIT Nitrite,Urine Negative Negative LAB UPRO Protein,Urine Negative Negative LAB UGL Glucose,Urine (UA) 150 High Normal mg/dL LAB UKET Ketones,Urine 4+ High Negative LAB UURO Urobilinogen,U rine Normal Normal LAB UBIL Bilirubin,Urin e Negative Negative LAB UBLD Occult Blood,Urine Negative Negative Result Comment: PERFORMED BY : [place] [address] PATHOLOGIST HEATER TENDER SARAH ANDREWS M.D. LAB URBC RBC,Urine 1 0-4 [HPF] LAB UWBC WBC,Urine 3 0-4 [HPF] LAB USQEPI Squamous Epithelial Cell,Urine 3 High 0-2 [HPF] LAB UBACT Bacteria,Urine None Seen None Seen LAB UHYALC Hyaline Casts,Urine None 0-8 LAB MUCUS Mucus,Urine Rare Result Comment: PERFORMED BY : [place] [address] PATHOLOGIST HEATER TENDER SARAH ANDREWS M.D. Performed By: #### ADDONUAPL #### [address] RESPIRATORY (UPPER) PANEL, PCR Observed: 04/05/2024 3:52 PM Status: F Source: [facility] Adenovirus Not detected Bordetella parapertussis Not detected [...] COVID-19 Detected/Not Detected Not detected Blank Space FLUA TEST INCLUDES Influenza A tests for the following clinically FLUA TEST INCLUDES significant subtypes: FLUA TEST INCLUDES - Influenza A FLUA TEST INCLUDES - Influenza A H1 FLUA TEST INCLUDES - Influenza A H1 2009 FLUA TEST INCLUDES - Influenza A H3 Blank Space PERFORMED BY: [place] [address] PATHOLOGIST HEATER TENDER SARAH ANDREWS M.D. Performed By: #### BIOFIRECO VNOTDE, RESP PANEL UPP. #### [address] BIOFIRE NOT DETECTED Collected: 04/05/2024 3:52 PM S tatus: F Source: [facility] TYPE CODE TESTS RESULT OUT OF RANGE REFERENCE UNITS LAB BIOFIRECOVNOTDE BioFire Not Detected Not Detected Not Detecte Result Comment: This is a du plicate RP2.1 COVID (PCR) result to be used for statistical tracking purpose only. PERFORMED BY: [place] [address] PATHOLOGIST HEATER TENDER SARAH ANDREWS M.D. Performed By: #### BIOFIRECO VNOTDE, RESP PANEL UPP. #### [address] COMPLETE BLOOD COUNT AUTO DIFF Collected: 04/05/2024 3:45 PM Status: F Source: F [facility] TYPE CODE TESTS RESULT OUT OF RANGE REFERENCE UNITS LAB WBC White Blood Count 12.7 High 3.8-11.6 10*3/uL LAB UNWBC Uncorrected WBC 12.7 High 3.8-11.6 10*3/uL LAB RBC Red Blood Count 3.95 Normal 3.60-5.00 10*6/u L LAB HGB Hemoglobin 11.4 Low 11.8-15.4 g/dL LAB HCT Hematocrit 34.4 Normal 34.0-46.4 % LAB MCV Mean Corpuscular Volume 86.9 Normal 80-100 fL LAB MCH Mean Corpuscular Hemoglobin 28.9 Normal 24.7-34.3 pg LAB MCHC Mean Corpuscular HGB Conc 33.2 Normal 32.0-35.0 g/dL LAB RDW Red Cell Distribution Width 14.5 Normal 11.9-15.3 % LAB PLT Platelet Count 205 Normal 150-450 10*3/uL LAB MPV Mean Platelet Volume 11.2 High 6.3-10.7 fL LAB MDW Monocyte Distribution Width 19.24 Normal 0.00-20.00 % LAB NE% Neutrophils % (Auto) 91.7 . % LAB LY% Lymphocytes % (Auto) 6.0 . % LAB MO% Monocytes % (Auto) 2.1 . % LAB EO% Eosinophils % (Auto) 0.0 . % LAB BA% Basophils % (Auto) 0.2 . % LAB NRBC% NRBC% 0.0 Normal 0-0.5 /100{WBC } LAB NE# Neutrophils # (Auto) 11.7 High 1.8-7.7 10*3/uL LAB LY# Lymphocytes # (Auto) 0.8 Low 1.00-4.8 10*3/uL LAB MO# Monocytes # (Auto) 0.3 Normal 0.0-0.8 10*3/uL LAB EO# Eosinophils # (Auto) 0.0 Normal 0.0-0.45 10*3/uL LAB BA# Basophils # (Auto) 0.0 Normal 0.0-0.2 10*3/uL Result Comment: PERFORMED BY : [place] [address] PATHOLOGIST HEATER TENDER SARAH ANDREWS M.D. Performed By: #### CBC, CMP, LIPASE #### [address] COMPREHENSIVE METABOLIC PANEL Collected: 04/05/2024 3 :45 PM Status: F Source: [facility] TYPE CODE TESTS RESULT OUT OF RANGE REFERENCE UNITS LAB GLU Glucose 138 High 70-100 mg/dL Result Comment: Random Gluco se Reference Range is dependent on time and content of last meal. Glucose of more than 200 mg/dL in a nonstressed, ambulatory subject supports the diagnosis of Diabetes Mellitus. ADA recommended reference range LAB BUN Blood Urea Nitrogen 9 Normal 7-25 mg/d L LAB CREATT Creatinine 0.41 Low 0.60-1.20 mg/dL LAB GFReNR Estimated GFR >60.0 mL/Min LAB NA Sodium 137 Normal 136-145 mmol/L LAB K Potassium 3.3 Low 3.5-5.1 mmol/L LAB CL Chloride 106 Normal 98-107 mmol/L LAB CO2 Carbon Dioxide 19.0 Low 21.0-31.0 mmol/L LAB GAP Anion Gap 15.3 High 6.0-15.0 meq/L LAB CA Calcium 9.1 Normal 8.6-10.3 mg/dL LAB TP Total Protein 7.4 Normal 6.4-8.9 g/dL LAB ALB Albumin Level 4.2 Normal 3.5-5.7 g/dL LAB GLOB Globulin 3.2 g/dL LAB AGRATIO Albumin/Globulin Ratio 1.3 LAB BILIT Bilirubin,Total 0.5 Normal 0.3-1.0 mg/dL LAB AST Aspartate Amino Transferase 13 Normal 13-39 U/L LAB ALT Alanine Aminotransferase 20 Normal 7-52 U/L LAB ALP Alkaline Phosphatase 60 Normal 34-104 U/L LAB CRCLPHA Creatinine Clr C alc Pharmacy 181.93 Performed By: #### CBC, CMP, LIPASE #### [facility] [address] [place] [id number] [facility] LIPASE Collected: 5 3:45 PM Status: F Source: [facility] TYPE CODE TESTS RESULT OUT OF RANGE REFERENCE UNITS LAB LIPASE Lipase 11.0 Normal 11.0-82.0 U/L Result Comment: PERFORMED BY : [place] [address] PATHOLOGIST HEATER TENDER SARAH ANDREWS M.D. Performed By: #### CBC, CMP, LIPASE #### [facility] [address] [place] [address] [facility] US OB TRANSVAGINAL Observed: 03/24/2024 10:10 AM Status: F Source: [facility] EP[facility] Order Comment: US OB TRANSVA GINAL No LMP recorded. TITLE OF EXAM: US OB TRANSVA GINAL REASON FOR EXAM: Dating TECHNIQUE: Grayscale, color, [...] x 5.5 cm (8 weeks, 6 days). Stow rump length is 2.1 cm (8 weeks, [...] signed and approved by the interpreting radiologist. DIPSTICK AND MICROSCOPIC Collected: 12:30 PM Status: F Source: [facility] Order Comment: Name Collecti on Type:: Clean-Voided Midstream TYPE CODE TESTS RESULT OUT OF RANGE REFERENCE UNITS LAB UCOL Color,Urine Light-Yellow Yellow LAB UAPP Appearance,Uri ne Clear Clear LAB USG Specificy [place],Urine 1.023 Normal 1.001-1.030 LAB UPH pH,Urine 8.5 Normal 5.0-9.0 LAB ULE Leukocyte Esterase,Urine Negative Negative LAB UNIT Nitrite,Urine Negative Negative LAB UPRO Protein,Urine 20 High Negative mg/dL LAB UGL Glucose,Urine (UA) Normal Normal LAB UKET Ketones,Urine 2+ High Negative LAB UURO Urobilinogen,U rine Normal Normal LAB UBIL Bilirubin,Urin e Negative Negative LAB UBLD Occult Blood,Urine Negative Negative Result Comment: PERFORMED BY : [place] [address] PATHOLOGIST HEATER TENDER SARAH ANDREWS M.D. LAB URBC RBC,Urine 3 0-4 [HPF] LAB UWBC WBC,Urine 1 0-4 [HPF] LAB USQEPI Squamous Epithelial Cell,Urine 5 High 0-2 [HPF] LAB UBACT Bacteria,Urine Rare None Seen LAB UHYALC Hyaline Casts,Urine None 0-8 LAB MUCUS Mucus,Urine 2+ Abnormal Alert Result Comment: PERFORMED BY : [place] [address] PATHOLOGIST HEATER TENDER SARAH ANDREWS M.D. Performed By: #### ADDONUAPL #### [address] HEPATIC PANEL Collected: 03/04/2024 11:30 AM Status: F Source: [facility] TYPE CODE TESTS RESULT OUT OF RANGE REFERENCE UNITS LAB TP Total Protein 7.5 Normal 6.4-8.9 g/dL LAB ALB Albumin Level 4.6 Normal 3.5-5.7 g/dL LAB GLOB Globulin 2.9 g/dL LAB AGRATIO Albumin/Globulin Ratio 1.6 LAB BILIT Bilirubin,Total 0.7 Normal 0.3-1.0 mg/dL LAB BILID Bilirubin,Direct 0.10 Normal 0.03-0.18 mg/dL LAB BILII Bilirubin,Indirect 0.6 mg/dL LAB AST Aspartate Amino Transferase 14 Normal 13-39 U/L LAB ALT Alanine Aminotransferase 16 Normal 7-52 U/L LAB ALP Alkaline Phosphatase 32 Low 34-104 U/L Performed By: #### SCAN CBC, HCGQNT, BMP, HEPATIC, LIPASE #### [facility] [address] [place] [address] BASIC METABOLIC PANEL Collected: 2023 11:30 AM Status: F Source: [facility] TYPE CODE TESTS RESULT OUT OF RANGE REFERENCE UNITS LAB GLU Glucose 134 High 70-100 mg/dL Result Comment: Random Gluco se Reference Range is dependent on time and content of last meal. Glucose of more than 200 mg/dL in a nonstressed, ambulatory subject supports the diagnosis of Diabetes Mellitus. ADA recommended reference range LAB BUN Blood Urea Nitrogen 8 Normal 7-25 mg/dL LAB CREATT Creatinine 0.60 Normal 0.60-1.20 mg/dL LAB GFReNR Estimated GFR >60.0 mL/Min LAB NA Sodium 139 Normal 136-145 mmol/L LAB K Potassium 3.3 Low 3.5-5.1 mmol/L LAB CL Chloride 109 High 98-107 mmol/L LAB CO2 Carbon Dioxide 21.1 Normal 21.0-31.0 mmol/L LAB GAP Anion Gap 12.2 Normal 6.0-15.0 meq/L LAB CA Calcium 9.4 Normal 8.6-10.3 mg/dL LAB CRCLPHA Creatinine Clr Calc Pharmacy 122.59 Performed By: #### SCAN CBC, HCGQNT, BMP, HEPATIC, LIPASE #### [address] LIPASE Collected: 4 11:30 AM Status: F Source: [facility] TYPE CODE TESTS RESULT OUT OF RANGE REFERENCE UNITS LAB LIPASE Lipase 15.0 Normal 11.0-82.0 U/L Performed By: #### SCAN CBC, HCGQNT, BMP, HEPATIC, LIPASE #### [place] [id number] [facility] HCG,QUANTITATIVE Collected: 4 11:30 AM Status: F Source: [facility] TYPE CODE TESTS RESULT OUT OF RANGE REFERENCE UNITS LAB HCGQNT HCG,Quantit ative 52076.00 m[iU]/mL Result Comment: Approximate Approximate hCG Gestational Age Range (mIU/ml) (weeks) 0.2-1 5-50 1-2 50-500 2-3 100-5,000 3-4 500-10,000 4-5 1,000-50,000 5-6 10,000-100,000 6-8 15,000-200,000 8-12 10,000-100,000 PERFORMED BY: [place] [address] PATHOLOGIST HEATER TENDER SARAH ANDREWS M.D. Performed By: #### SCAN CBC, HCGQNT, BMP, HEPATIC, LIPASE #### [facility] [address] SCAN AND CBC Collected: 03/04/2024 11:30 AM Status: F Source: [facility] TYPE CODE TESTS RESULT OUT OF RANGE REFERENCE UNITS LAB WBC White Blood Count 7.7 Normal 3.8-11.6 10*3/uL LAB UNWBC Uncorrected WBC 7.7 Normal 3.8-11.6 10*3/uL LAB RBC Red Blood Count 4.40 Normal 3.60-5.00 10*6/u L LAB HGB Hemoglobin 12.9 Normal 11.8-15.4 g/dL LAB HCT Hematocrit 38.2 Normal 34.0-46.4 % LAB MCV Mean Corpuscular Volume 86.9 Normal 80-100 fL LAB MCH Mean Corpuscular Hemoglobin 29.4 Normal 24.7-34.3 pg LAB MCHC Mean Corpuscular HGB Conc 33.8 Normal 32.0-35.0 g/dL LAB RDW Red Cell Distribution Width 14.6 Normal 11.9-15.3 % LAB PLT Platelet Count 182 Normal 150-450 10*3/uL LAB MPV Mean Platelet Volume 11.5 High 6.3-10.7 fL LAB MDW Monocyte Distribution Width 15.87 Normal 0.00-20.00 % LAB NE% Neutrophils % (Auto) 77.7 . % LAB LY% Lymphocytes % (Auto) 17.1 . % LAB MO% Monocytes % (Auto) 4.4 . % LAB EO% Eosinophils % (Auto) 0.2 . % LAB BA% Basophils % (Auto) 0.6 . % LAB NRBC% NRBC% 0.0 Normal 0-0.5 /100{WBC } LAB NE# Neutrophils # (Auto) 6.0 Normal 1.8-7.7 10*3/uL LAB LY# Lymphocytes # (Auto) 1.3 Normal 1.00-4.8 10*3/uL LAB MO# Monocytes # (Auto) 0.3 Normal 0.0-0.8 10*3/uL LAB EO# Eosinophils # (Auto) 0.0 Normal 0.0-0.45 10*3/uL LAB BA# Basophils # (Auto) 0.0 Normal 0.0-0.2 10*3/uL LAB RM RBC Morphology Normal Normal LAB ANISO Anisocytosis Slight LAB MICR Microcytosis Slight LAB PLT EST Platelet Estimate Normal Normal LAB PLTM Platelet Morphology Normal Normal Result Comment: PERFORMED BY : [place] [address] PATHOLOGIST HEATER TENDER SARAH ANDREWS M.D. Performed By: #### SCAN CBC, HCGQNT, BMP, HEPATIC, LIPASE #### [facility] [address] [place] [address] CT CERVICAL SPINE WO CON Observed: 11/24 6:53 PM Status: COMPLETED Source: [facility] [place] [address] [place] [address] CT Scan Report Signed Patient: Nicole Farris MR#: [id number] : 1995 Acct:[id number] Age/Sex: 28 / F ADM Date: 11/25/23 Loc: ER Room: Type: [facility] ER Attending Dr: Copies to: Vianney Genao APRN Ordering Provider: Vianney Genao APRN Date of Service: 11/25/23 CT/CT cervical spine wo con: increased pain ([id number]) CT/CT head/brain wo con: pain CLINICAL DATA: [...] Priscila Barbosa M.D.11/25/2023 7:01 PM Dictation Location: [place] [address] Transcribed By: [facility] 11/25/231900 Dictated By: Priscila Barbosa MD 11/25/231852 Signed By: <Electronically signed by MD Priscila Brabosa in OV> 11/25/231900 XR CERVICAL SPINE 2-3 VIEWS Observed: 10/05/2023 2:15 PM Status: F Source: [facility] FINDINGS: Vertebral bodies are normally aligned. Vertebral body heights and disc space heights are well maintained. No significant osteophyte formation. Minimal diffuse facet arthropathy. No acute fracture or dislocation is identified. Soft tissues are unremarkable. IMPRESSION: Minimal arthritis, normal alignment TRANSCRIBED BY: ELECTRONICALLY SIGNED BY: Davon Coles MD ALLERGIES DATE TYPE / CODE NAME / CODE REACTION SEVERITY SOURCE 06/29/2024 Drug Allergy/364426 002(SNOMED CT) Penicillins/F0 [id number](RXNOR M) Hives Unknown [facility] 06/29/2024 Drug Allergy/637669 002(SNOMED CT) codeine/[id number] 1550(RXNORM) Hives Unknown [facility] 06/29/2024 Drug Allergy/131408 002(SNOMED CT) sulfamethoxazo le/[id number]( RXNORM) Swelling of Lip/Tongue/Throat, hives [facility] 06/29/2024 Drug Allergy/289588 002(SNOMED CT) trimethoprim/F [id number](RXNO RM) Swelling of Lip/Tongue/Throat, hives Unknown [facility] ENCOUNTERS ADMIT/DISCHARGE ACCOUNT NUMBER ADMITTING ENCOUNTER CLASS LOCATION SOURCE 08/10/2024/08/11/19 [id number] Ambulatory Building:[facility] 07/19/2024/07/20/19 25 [id number] Ambulatory Building:[facility] 07/19/2024/07/20/19 25 [id number] Ambulatory Building:[facility] 06/29/2024/06/30/19 25 [id number] [facility] 06/21/2024/06/22/19 [id number] Ambulatory Building:[facility] 06/12/2024/06/13/19 [id number] Ambulatory Building:[facility] 06/07/2024/06/08/19 25 [id number] [facility]/2024/05/26/19 25 [id number] Ambulatory Building:[facility] 05/19/2024/05/19/19 25 [id number] [facility] 05/16/2024/05/16/19 25 [id number] [facility] Our [facility] 04/24/2024/04/24/19 25 [id number] Ambulatory Building:[facility] 04/05/2024/04/05/19 25 [id number] [facility]24/03/24/19 [id number] Ambulatory Building:[facility] 03/24/2024/03/24/19 25 [id number] Ambulatory Building:[facility] 03/04/2024/03/04/20 24 [id number] [facility]jit [facility] 11/25/2023/11/25/19 24 [id number] Vianney Genao Singh [facility]EDFTRoom: EDQCI [facility] 10/05/2023/10/05/19 24 [id number] Ambulatory Building:[facility] S[facility] 10/05/2023/10/05/19 24 [id number] Ambulatory Building:[facility] FAMMED [facility] PAYERS ENCOUNTER GUARANTOR PAYER SUBSCRIBER SOURCE 08/10/2024 NICOLE SALESB: [place] [address]Sol: (HP) Primary Insurance:BCBSPolicy Number: [id number] Date:2023-11-21 LUIS FARRISDOB: [id number] [place] [address] [facility] 07/19/2024 NICOLE SALESB: [id number] [place] [address]Iqe: (HP) Primary Insurance:BCBSPolicy Number: [id number] Date:2023-11-21 LUIS FARRISDOB: [id number] [place] [address] [facility] 07/19/2024 NICOLE SALESB: [id number] [place] [address]Gei: (HP) Primary Insurance:BCBSPolicy Number: [id number] Date:2023-11-21 LUIS FARRISDOB: [id number] [place] [address] [facility] 06/29/2024 Nicole Farris3613 [facility] [place] [address]Aul: () Primary Insurance:Escobar PA/Elysey Number: [id number] Date:2024-06-29 Luis MondragondoDOB: [id number] [facility] [place] [address]Vjw: () [facility] 06/29/2024 Secondary Insurance:Self PayPolicy Number: Effective Date:2024-06-29 NOT GIVENUNK [facility] 06/21/2024 NICOLE MONDRAGONDOB: [place] [address]Jvl: () Primary Insurance:BCBSPolicy Number: [id number] Date:2023-11-21 LUIS BRENTONDOB: [id number] [place] [address] [facility] 06/12/2024 NICOLE Kaye ALANNADODOB: [place] [address]Wfg: () Primary Insurance:BCBSPolicy Number: [id number] Date:2023-11-21 LUIS BOTELLODORINDADODOB: [id number] [place] [address] [facility] 06/07/2024 Nicole Kaye [id number] [place] [address]Kid: () Primary Insurance:Escobra PA/Elysey Number: [id number] Date:2024-06-07 Luis Martin AyandorindadoDOB: [id number] [facility] [place] [address]Nbm: () [facility] 06/07/2024 Secondary Insurance:Self PayPolicy Number: Effective [facility]:2024-06-07 [facility]25/2024 NICOLE FARRISDOB: [place] [address]Mra: (HP) Primary Insurance:BCBSPolicy Number: [id number] Date:2023-11-21 LUIS BRENTONDOB: [id number] [place] [address] [facility] 05/19/2024 Nicole Farris3613 [place] [address]Dnv: (HP) Primary Insurance:Escobar PA/BSPolicy Number: [id number] Date:2024-05-19 Luis Martin BrentonDOB: [id number] [place] [address]Pny: (HP) [facility] 05/19/2024 Secondary Insurance:Self PayPolicy Number: Effective Date:2024-05-19 [facility] 05/16/2024 Nicole Farris3613 [place] [address]Liw: (HP) Primary Insurance:Escobar PA/BSPolicy Number: [id number] Date:2024-05-16 Luis Martin AyanyesicaDOB: [id number] [place] [address]Ujq: (HP) [facility] 05/16/2024 Secondary Insurance:Self PayPolicy Number: Effective Date:2024-05-16 [facility] 04/24/2024 NICOLE FARRISDOB: [place] [address]Pko: (HP) Primary Insurance:BCBSPolicy Number: [id number] Date:2023-11-21 LUIS ALANNADODOB: [id number] [place] [address] [facility] 04/05/2024 Nicole Botellogado3613 [facility] [place] [address]Zbs: (HP) Primary Insurance:Escobar PA/BSPolicy Number: [id number] Date:2024-04-05 Luis Martin BrentonDOB: [id number] [place] [address]Ucm: (HP) [facility] 04/05/2024 Secondary Insurance:Self PayPolicy Number: Effective Date:2024-04-05 NOT GIVENUNK [facility] 03/24/2024 NICOLE Kaye BRENTONDOB: [place] [address]Sdc: (HP) Primary Insurance:BCBSPolicy Number: [id number] Date:2023-11-21 LUIS BRENTONDOB: [id number] [place] [address] [facility] 03/24/2024 NICOLE Kaye BRENTONDOB: [id number] [place] [address]Sdb: (HP) Primary Insurance:BCBSPolicy Number: [id number] Date:2023-11-21 LUIS ALANNADODOB: [id number] [place] [address] [facility] 03/04/2024 Nicole Kaye [id number] [place] [address]Ttf: (HP) Primary Insurance:[place] BC/BSPolicy Number: [id number] Date:2024-03-04 Luis J BrentonDOB: [id number] [place] [address]Pgd: () [facility] 03/04/2024 Secondary Insurance:Self PayPolicy Number: Effective Date:2024-03-04 NOT GIVENUNK [facility] 11/25/2023 Nicole Botellogado3613 [place] [address]Ymj: (HP) Primary Insurance:[place] BC/BSPolicy Number: [id number] Date:2023-11-25 Luis FarrisDOB: [id number] [place] [address]Cuz: (HP) [facility] 11/25/2023 Secondary Insurance:Self PayPolicy Number: Effective Date:2023-11-25 NOT GIVENUNK [facility] 10/05/2023 NICOLE H BRENTONDOB: [id number] [place] [address]Qsk: () [facility] Number: [id number] Date:2023-10-05 NICOLE H BRENTONDOB: [id number] [place] [address] [facility] 10/05/2023 NICOLE H BRENTONDOB: [id number] [place] [address]Xha: () Primary Insurance:[facility]Policy Number: [id number] Date:2023-10-05 NICOLE FARRISDOB: [id number] [place] [address] [facility]
[2024-08-10 11:55] VITALS: TEMP 36.4
[2024-08-10] MEDS: 0.9 % SODIUM CHLORIDE 1,000 ML 999 ML IV (12:15)
[2024-08-10 12:38] LABS: Basophils Percent Auto 0.2 % (0.2-2.0); Eosinophils Absolute Auto 0.1 10^3/uL (0.0-0.7); Eosinophils Percent Auto 0.5 % (0.9-7.0); Hematocrit 29.8 % (36.0-48.0); Hemoglobin 9.8 g/dL (12.0-16.0); Immature Granulocytes Abs Auto 0.08 10^3/uL (0.00-0.03); Immature Granulocytes Pct Auto 0.9 % (0.0-0.5); Lymphocytes Absolute Auto 1.6 10^3/uL (1.2-3.8); Lymphocytes Percent Auto 17.3 % (20.5-60.0); Mean Corpuscular HGB Conc 32.9 g/dL (29.9-35.2); Mean Corpuscular Hemoglobin 26.8 pg (26.7-34.0); Mean Corpuscular Volume 81.4 fL (81.0-99.0); Mean Platelet Volume 12.6 fL (9.5-13.5); Monocytes Absolute Auto 0.6 10^3/uL (0.3-0.8); Monocytes Percent Auto 6.7 % (1.7-12.0); Neutrophils Absolute Auto 6.8 10^3/uL (1.4-6.5); Neutrophils Percent Auto 74.4 % (43.0-75.0); Platelet Count 174 10^3/uL (150-450); Red Blood Count 3.66 10^6/uL (4.20-5.40); Red Cell Distribution Width 14.2 % (11.0-15.0); White Blood Count 9.2 10^3/uL (4.0-11.0)
[2024-08-10] MEDS: ONDANSETRON PF 4 MG/2 ML VIAL IV (12:40)
[2024-08-10 12:49] LABS: Estimated Average Glucose 131 mg/dL; Glycohemoglobin A1C 6.2 % (4.5-6.2)
[2024-08-10 13:10] LABS: Amylase 79 U/L (25-115); BUN Creatinine Ratio 20.6; Calcium 8.4 mg/dL (8.5-10.1); Carbon Dioxide 24.8 mmol/L (21.0-32.0); Chloride 107 mmol/L (98-107); Estimated GFR (African America >60 (>=60 mL/min/1.73m^2); Estimated GFR (Non-African Ame >60 (>=60 mL/min/1.73m^2); Glucose 108 mg/dL (74-106); Potassium 3.8 mmol/L (3.5-5.1); Sodium 138 mmol/L (136-145)
[2024-08-10 13:11] LABS: Alanine Aminotransferase 13 U/L (14-59); Aspartate Amino Transferase 10 U/L (15-37); Estimated GFR (African America >60 (>=60 mL/min/1.73m^2); Estimated GFR (Non-African Ame >60 (>=60 mL/min/1.73m^2)
[2024-08-10] MEDS: 0.9 % SODIUM CHLORIDE 1,000 ML 150 ML IV (13:15)
[2024-08-10 13:20] VITALS: BP 123/81; PULSE 87; TEMP 36.4
[2024-08-10] MEDS: METOCLOPRAMIDE HCL 10 MG/2 ML VIAL IVP (13:30)
[2024-08-10 14:45] VITALS: TEMP 36.9
[2024-08-10 15:20] VITALS: BP 123/71; PULSE 98
--- NOTE | 2024-08-10 16:24 | PC.NURSE ---
1155- Pt arrives to [facility] following sent over from the office. Orders received prior to arrival from Shilpi PATEL for IV start, 1000ml/hr bolus for total volume of 1000ml, and CBC/Hgb A1C. Pt arrives via wheelchair with emesis bag. Pt taken to room 253. Pt unable to sit still due to vomiting. Pt shakey. Pt voices experiencing diarrhea and vomiting since this AM. Pt states she has been experiencing nausea and vomiting throughout . Pt states she has been tx prior at [facility] for nausea and vomiting. Pt denies taking medication for nausea today or other medications. Pt reports active movement and pt states heart tones at office were 130s. Pt denies cxt's. Pt denies vaginal bleeding or leaking of fluid. Pt sitting in bed at time; RN prepares for IV start. Pt refuses FHR/UC monitors at this time.
--- NOTE | 2024-08-10 16:59 | PC.NURSE ---
1535- Pt continuing to refuse FHR/UC monitors due to being uncomfortable. Pt reports feeling active movement. Cervical exam performed; cervix closed and thick. No vaginal discharge noted with exam. Pt states she is starting to feel better at this time. Pt request to get back into bath tub at this time; RN assists pt to tub at this time.
--- NOTE | 2024-08-10 17:02 | PC.NURSE ---
1445- Ice chips and chk broth given to pt at this time. Pt continuing to move around in bed to get comfortable. Pt states she would like to go home if able to and states she would be much more comfortable at home.
--- NOTE | 2024-08-10 17:04 | PC.NURSE ---
Pt IV out at this time; pt pulls IV out accidentally when rolling to side. Pt tells Ale GAYTAN that she would like to go home.
--- NOTE | 2024-08-10 17:45 | PC.NURSE ---
1550- RN updates pt on plan of care and physician order for discharge. Pt status appears improved; pt able to talk to nurse and sitting still in bed. Pt states she feels much better at this time and opts for discharge home. Discharge instructions at this time. Discharge instructions signed per pt with support person present; pt reminded to pick-up prescriptions at this time. 1605- Pt discharged home at this time. Pt ambulates with support person.
== END 2024-08-10 16:05 | disposition home or self-care (01) ==
LOC: FBC 11:48
PROVIDERS: Admitting Provider Obstetrics & Gynecology; PCP Family Medicine; Visit Provider Obstetrics & Gynecology
DX: O21.2 Late vomiting of pregnancy (principal); Z3A.28 28 weeks gestation of pregnancy
CPT/HCPCS: 36415; 59025; 80048; 82150; 82565; 83036; 83690; 84450; 84460; 84520; 85025; 87045; 87046; 87427; 96361; 96374; 96375; G0378; G0379; J2405; J2765

== ENCOUNTER 2024-09-05 13:51 | Outpatient (OUT) | payer BC, SELFPAY ==
--- NOTE | 2024-09-05 | US_ITS ---
[address] [address] Patient Name: ABBE VALENZUELA MRN: [id number] date: 1995 Sex: F Assigned Patient Location: [facility] Current Patient Location: [facility] Accession/Order Number: [id number] Exam Date: 09/06/2024 07:48 Report Date: 09/06/2024 07:50 At the request of: CORBY CAUSEY Procedure: US OB growth Limited ultrasound HISTORY: Assessment for growth. The a few cysts in cephalic presentation. The amniotic fluid index is 15.7 cm within normal limits. Largest fluid pocket is 4.4 cm. The heart rate 136 bpm. The average gestational age is 32 weeks 4 days. Estimated date of delivery 10/27/2024. Estimated weight 2075 g with weight percentile 51%. US/US OB growth IMPRESSION: Single live intrauterine gestation 32 weeks 4 days. Impression dictated by: Mikie Hurtado M.D. 09/06/2024 7:50 AM Dictation Location: [employer] Electronically authenticated by: [id number] Y Date: 09/06/2024 07:50
--- NOTE | 2024-09-05 | US_ITS ---
[place] [id number] Patient Name: ABBE VALENZUELA MRN: [facility]:[id number] date: 1995 Sex: F Assigned Patient Location: [facility] Current Patient Location: [facility] Accession/Order Number: [id number] Exam Date: 09/06/2024 07:51 Report Date: 09/06/2024 07:55 At the request of: CORBY CAUSEY Procedure: US OB BPP w non-stress Ultrasound biophysical profile HISTORY: Anemia affecting Adequate gross body movement, tone and amniotic fluid volume for total score of 6 out of 8. Inadequate breathing movement The amniotic fluid index is 15.7cm within normal limits. The heart rate 136 bpm. US/US OB BPP w non-stress IMPRESSION: Suboptimal ultrasound biophysical profile. Inadequate breathing movement. Impression dictated by: Mikie Hurtado M.D. 09/06/2024 7:55 AM Dictation Location: [email or web address] Electronically authenticated by: [id number] Y Date: 09/06/2024 07:55
[2024-09-05 15:01] VITALS: BP 105/58; PULSE 80
== END 2024-09-05 15:56 | disposition home or self-care (01) ==
LOC: US 13:51 → FBC 13:55
PROVIDERS: PCP Family Medicine; Visit Provider Nurse Practitioner Family
DX: O24.419 Gestational diabetes mellitus in pregnancy, unspecified control (principal); O99.013 Anemia complicating pregnancy, third trimester; Z3A.32 32 weeks gestation of pregnancy
CPT/HCPCS: 76816; 76818

== ENCOUNTER 2024-09-07 17:50 | Outpatient (OUT) | payer MEDICAID, SELFPAY ==
--- NOTE | 2024-09-07 17:54 | US_ITS ---
[place] [id number] Patient Name: ABBE VALENZUELA MRN: [facility]:[id number] date: 1995 Sex: F Assigned Patient Location: [facility] Current Patient Location: [facility] Accession/Order Number: [id number] Exam Date: 09/08/2024 08:20 Report Date: 09/08/2024 08:22 At the request of: GABBY GONSALVES DO Procedure: US OB BPP w non-stress BIOPHYSICAL PROFILE: CLINICAL INFORMATION: 08/27 on previous BPP COMPARISON: 09/05/2024 There is a single live intrauterine gestation in cephalic presentation. The reported gestational age is 32 weeks 6 days. The heart rate measures 134 beats per minute. FINDINGS: TONE: 1 or more episodes of activity extension and flexion of extremity or opening and closing of the hand [Y] 2/2 GROSS BODY MOVEMENTS: 3 or more discrete body or limb movements [Y] 2/2 BREATHING MOVEMENTS: 1 or more episodes of breathing lasting at least 30 seconds [Y] 2/2 CINDY: A single deepest vertical pocket of amniotic fluid greater than 2 cm [Y] 2/2 CINDY: 17.8 cm. This is in upper normal range. Total score: 10/27 US/US OB BPP w non-stress IMPRESSION: NORMAL BIOPHYSICAL PROFILE. Impression dictated by: Priscila Barbosa M.D. 09/08/2024 8:22 AM Dictation Location: [place] [address] Electronically authenticated by: [id number] Y Date: 09/08/2024 08:22
--- OUTSIDE RECORDS SUMMARY | 2024-09-07 17:55 | XMS_ITS | Patient Health Record ---
Author Organization [facility] Address [address] [place] [address] Care Team Providers Care Marketing Project Specialist Name Role Phone [facility] Primary Care Provide r Unavailable Allergies Allergen (clinical drug ingredient) Drug/Non Drug Allergy documented on EMR Reaction Allergy Type Onset Date Status sulfamethoxazole / trimethoprim Bactrim DS lips swelling Drug Allergy Active Penicillin hives Drug Allergy Active Reason For Referral No Information Medications Medication SIG (Take, Route, Frequency, Duration) Notes Start Date End Date Status Sprintec 28 0.25-35 MG-MCG 1 tablet Orally Once a day Active CeleXA 20 MG 1 tablet Orally Once a day Active Immunizations Vaccine Route Administration Date Status Comme [facility] z2022 Fluzone Quad PFS (0.5m L Admin) 6 months & older Unknown 08/25/2022 Refused Social History Tobacco Use: Social History Observation Description Date Details (start date - stop date) Former Smoker NA - NA Tobacco Use Question Answer Notes Are you a Former smoker How long has it been since you last smoked? 5-10 years Problems Problem Type SNOMED Code ICD Code Onset Dates Problem Status W/U Status Risk Notes Problem Mixed anxiety and depressive disorder (521715969) Anxiety and depression (F41.8) Active confirmed Plan Of Treatment No Information Insurance Providers Payer Name Payer Address Payer Phone Subscriber Number Group Number Insured Name Patient Relationship to Insured Coverage Start Date Coverage End Date [facility] [address] [place] [address] [id number] Nicole Farris Self - patient is the insured [employer] [place] [address] [place] [address] [phone] [id number] Nicole Farris Self - patient is the insured Medical (General) History Medical History History ICD Code Anxiety and depression F41.8 Surgical History Surgery Date(Month/Year) C section 10/16/2021 Hospitalization History Reason Date(Month/Year) surgeries
--- OUTSIDE RECORDS SUMMARY | 2024-09-07 17:56 | XMS_ITS | CCD ---
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 Name Role Phone PRIYANKA, CHRISTOPHER Unavailable Unavailable [...] Consulting Unavailable INGRID, DR PIERRE Admitting Unavailable AGUBOSIM, LIANE Consulting Unavailable DORKOSKSHIREEN PERSAUD Consulting Unavailable KANDACE LOPEZ Consulting Unavailable [...] Primary Care Provider CHARLEEN Genao Emergency Provider Kb Hollis DO Primary Care Provider Enoch Villalobos DO Unavailable Yaz Hollis DO Primary Care Provider Surjit Stanton DO Emergency Provider Unavai Parminder Sorto PA-C Emergency Provider Enoch Villalobos DO Unavailable [phone] Glenn Abdullahi APRN Emergency Provider Yaz Hollis DO Primary Care Provider [phone] Parminder Serrano PA-C Emergency Provider [phone] Glenn Abdullahi APRN Emergency Provider [phone] Mateo Navas DO Emergency Provider Yaz Hollis Primary Care Unavailable Surjit Stanton Admitting Unavailable Surjit Stanton Attending Unavailable Yaz Hollis Primary Care Unavailable Parminder Serrano Admitting Unavailable Parminder Serrano Attending Unavailable Yaz Hollis Primary Care Unavailable Kaylen, Glenn Admitting Unavailable Glenn Abdullahi Attending Unavailable Yaz Hollis Primary Care Unavailable Kaylen, Glenn Admitting Unavailable Kaylen, Glenn Attending Unavailable Yaz Hollis Primary Care Unavailable Mateo Navas M Admitting Unavailable Mateo Navas M Attending Unavailable Yaz Hollis Primary Care Unavailable Parminder Serrano Admitting Unavailable Parminder Serrano Attending Unavailable Vianney Genao Admitting Unavailable Vianney Genao Attending Unavailable Yaz Hollis Primary Care Unavailable JAGUAR QUINTERO Attending Unavailable SULEMA MENDENHALL Attending Unavailable INGRID, JAGUAR Attending Unavailable INGRID, JAGUAR Referring Unavailable CORBY ROYAL Attending Unavailable INGRID, JAGUAR Attending Unavailable INGRID, JAGUAR Attending Unavailable RICARDO SERRANO Attending Unavailable RICARDO SERRANO Referring Unavailable Allergies Allergy Classification Reported Allergen(s) Allergy Type Date of Onset Reaction(s) Facility (1 source) black walnut pollen extract Drug Allergy [facility] Repository (8 sources) Codeine Drug Allergy 04-28-19 21 Hives [facility] Repository (8 sources) Penicillins Drug allergy (disorder) 04-28-19 21 [facility] Repository (1 source) Plasmin Drug Allergy 10-17-19 22 [facility] Repository (1 source) Sulfamethoxazole / Trimethoprim Drug Allergy 10-17-19 22 [facility] Repository (1 source) Sulfonamides (Antibiotic) Drug allergy (disorder) 10-17-19 22 [facility] Repository (20 sources) Codeine Drug Allergy 04-07-19 24 hives, Unknown [facility] Work Phone: (9 sources) Penicillin Drug Allergy [facility] Contractually Other (9 sources) Sulfamethoxazole / Trimethoprim Drug Allergy [facility] Contractually Other (12 sources) Sulfamethoxazole; Translations: [sulfamethoxazole] Drug Allergy 04-28-19 21 Swelling of Lip/Tongue/Thr oat, Swelling of Lip/Tongue/Thr oat, [facility] (12 sources) Trimethoprim; Translations: [trimethoprim] Drug Allergy 04-28-19 21 Swelling of Lip/Tongue/Thr oat, Swelling of Lip/Tongue/Thr oat, hives [facility] (17 sources) penicillAMINE Drug Allergy 04-07-19 Unknown [facility] (17 sources) Penicillin G Drug Allergy 04-12-19 [facility] Work Phone: (17 sources) Sulfamethoxazole / Trimethoprim Drug Allergy 04-12-19 [facility] (17 sources) Sulfonamides (Antibiotic) Drug Allergy 04-07-19 Unknown [facility] (17 sources) SUMAtriptan Drug Allergy 04-07-19 [facility] (1 source) Codeine Drug Allergy 06-30-19 [facility] Repository (1 source) Penicillins Drug allergy (disorder) 06-30-19 [facility] Repository (4 sources) Penicillins Drug Allergy 11-25-19 [facility] Medications Current Medications Medication Drug Class(es) Dates Sig (Normalized) Sig (Original) azithromycin 250 mg oral tablet (2 sources) Macrolide Antimicrobial Start: 07-19-2024 End: 07-24-2024 azithromycin (Zithromax) 250 MG tablet Indications: Upper respiratory tract infection, unspecified type Take 2 tablets on the first day, then 1 tablet daily for 4 days. 6 tablet 07/19/2024 07/24/2024 Active Blood Glucose Monitoring Suppl (D-Care Glucometer) w/Device kit (3 sources) Start: 08-28-2024 End: 08-28-2025 Blood Glucose Monitoring Suppl (D-Care Glucometer) w/Device kit Indications: Third trimester ([facility]) , Gestational diabetes mellitus (GDM), antepartum, gestational diabetes method of control unspecified ([facility]) , Elevated glucose tolerance test 1 kit Daily Use four times daily to check FSBS. In the morning prior to breakfast & 1 hour after each meal for a total of 4times daily. 1 kit 08/28/2024 08/28/2025 Active Start: 08-28-2024 End: 08-28-[address] (D-Care Glucometer) w/Device kit Indications: Third trimester , Gestational diabetes mellitus (GDM), antepartum, gestational diabetes method of control unspecified , Elevated glucose tolerance test 1 kit Daily Use four times daily to check FSBS. In the morning prior to breakfast & 1 hour after each meal for a total of 4times daily. 1 kit 08/28/2024 08/28/2025 Active busPIRone hydrochloride 5 mg oral tablet (6 sources) Start: 05-25-2022 take 1 tablet by mouth every twelve hours busPIRone HCl 5 MG 1 tablet Orally Twice a day for 30 days May, Active citalopram 40 mg oral tablet (20 sources) Serotonin Reuptake Inhibitor Start: 07-06-2024 End: 08-05-2024 take 1 tablet by mouth once daily citalopram (CeleXA) 40 MG tablet Indications: Nausea and vomiting in ([facility]) , Anxiety, generalized Take 1 tablet (40 mg) by mouth Daily 30 tablet 5 07/06/2024 Active Start: 06-21-2024 take 1 tablet by deshawn th once daily citalopram (CeleXA) 20 MG tablet Indications: Moderately severe depression (CMS/HCC) Take 1 tablet (20 mg) by mouth Daily 90 tablet 1 06/21/2024 Active Start: 06-21-2024 take 1 tablet by deshawn th once daily citalopram (CeleXA) 20 MG tablet Indications: Moderately severe depression (CMS/HCC) Take 1 tablet (20 mg) by mouth Daily 90 tablet 1 06/21/2024 Active Start: 04-12-2023 End: 06-21-2024 take 1 tablet by mouth in the morning citalopram (CeleXA) 20 MG tablet Indications: Moderately severe depression (CMS/HCC) Take 1 tablet (20 mg) by mouth in the morning. 90 tablet 1 04/12/2023 06/21/2024 Discontinued (Reorder) Start: 06-04-2022 take 1 tablet by deshawn th every twenty-four hours Citalopram Hydrobromide 20 MG 1 tablet Orally Once a day May, Active take 1 tablet by deshawn th every twenty-four hours Citalopram Hydrobromide 40 MG 1 tablet Orally Once a day for 90 days Active cyclobenzaprine hydrochloride 10 mg oral tablet (13 sources) Muscle Relaxant Start: 10-05-2023 End: 05-25-2024 take 1 tablet by mouth three times daily as needed for muscle spasms Cyclobenzaprine 10 mg tablet Active 10 MG PO Three times daily as needed for muscle spasm November 25, 2023 12:00am escitalopram 10 mg [...] 0.25-35 mg-mcg tablet Active 0 .ROUTE .COMPLEX December 09, 2023 11:32am TAKE 1 TABLET BY MOUTH DAILY Start: 12-09-2023 take 1 tablet by deshawn th once daily Norgestimate-Ethinyl Estradiol (Sprintec (28)) 0.25-35 mg-mcg tablet Active 0 .ROUTE .COMPLEX December 09, 2023 10:32am TAKE 1 TABLET BY MOUTH DAILY Start: 03-16-2023 End: 05-25-2024 take 1 tablet by mouth in the morning Sprintec 28 0.25-35 MG-MCG tablet Take 1 tablet by mouth in the morning. 03/16/2023 05/25/2024 Discontinued Start: 05-25-2022 take 1 tablet by deshawn [...] (1 source) Azole Antifungal Start: 12-02-2022 Fluconazole 5 0 MG 1 tablet Orally once, can repeat dose in 2-3 days if symptoms are persisting for 2 days Nov, Active fluticasone propionate 0.05 mg/actuat metered dose nasal spray (17 sources) Corticosteroid Start: 06-16-2023 take 1-2 spray(s) nasal route once daily fluticasone (Flonase) 50 MCG/ACT nasal spray Indications: Strep pharyngitis Administer 1-2 sprays into each nostril Daily Shake gently. Before first use, prime pump. After use, clean tip and replace cap 16 g 3 06/16/2023 Active isopropyl alcohol 0.7 ml/ml medicated pad (3 sources) Start: 08-28-2024 Alcohol Swabs (Alcohol Prep Pad) 70 % pads Indications: Third trimester ([facility]) , Gestational diabetes mellitus (GDM), antepartum, gestational diabetes method of control unspecified ([facility]) , Elevated glucose tolerance test Apply 1 Pad topically Daily Use four times daily to check FSBS. 150 each 3 08/28/2024 Active Start: 08-28-2024 Alcohol Swabs (Alcohol Prep Pad) 70 % pads Indications: Third trimester , Gestational diabetes mellitus (GDM), antepartum, gestational diabetes method of control unspecified , Elevated glucose tolerance test Apply 1 Pad topically Daily Use four times daily to check FSBS. 150 each 3 08/28/2024 Active methylPREDNISolone 4 mg oral tablet (6 sources) Corticosteroid Start: 11-25-2023 take 1 tablet by mouth once Methylprednisolone (Medrol (Jose Ramon)) 4 mg tablets,dose pack Active 0 PO .COMPLEX November 25, 2023 12:00am orally per package directions metoclopramide 10 mg oral tablet (18 sources) Dopamine-2 Receptor Antagonist Start: 03-10-2024 End: 04-09-2024 metoclopramide (Reglan) 10 MG tablet Indications: Nausea and vomiting in ([facility]) Take 1 tablet (10 mg) by mouth in the morning and 1 tablet (10 mg) at noon and 1 tablet (10 mg) in the evening. Take before meals. Take 1 tablet by mouth 30 minutes prior to meals 3 times daily as needed for nausea.. 90 tablet 03/10/2024 Active ondansetron 4 mg oral tablet (20 sources) Serotonin-3 Receptor Antagonist Start: 07-19-2024 End: 09-09-2024 take 1 tablet by mouth every six hours ondansetron (Zofran) 4 MG tablet Indications: Nausea and vomiting during ([facility]) Take 1 tablet (4 mg) by mouth every 6 (six) hours 30 tablet 2 08/10/2024 09/09/2024 Active Start: 07-06-2024 take 1 tablet by deshawn th every eight hours for nausea ondansetron ODT (Zofran-ODT) 4 MG disintegrating tablet Indications: Nausea and vomiting in ([facility]) Take 1 tablet (4 mg) by mouth every 8 (eight) hours if needed for nausea or vomiting 20 tablet 3 07/06/2024 Active Start: 06-21-2024 take 1 tablet by deshawn th every eight hours for nausea ondansetron ODT (Zofran-ODT) 4 MG disintegrating tablet Indications: Nausea and vomiting in Take 1 tablet (4 mg) by mouth every 8 (eight) hours if needed for nausea or vomiting 20 tablet 3 06/21/2024 Active Start: 06-21-2024 take 1 tablet by deshawn th every eight hours for nausea ondansetron ODT (Zofran-ODT) 4 MG disintegrating tablet Indications: Nausea and vomiting in Take 1 tablet (4 mg) by mouth every 8 (eight) hours if needed for nausea or vomiting 20 tablet 3 06/21/2024 Active Start: 05-16-2024 End: 06-21-2024 take 1 tablet by mouth every eight hours as needed for nausea and vomiting Ondansetron 4 mg tablet,disintegrating Active 4 MG PO Every 8 hours as needed for nausea and vomiting May 16, 2024 1:54pm Start: 04-05-2024 take 1 tablet by deshawn th four times daily as needed for nausea and vomiting Ondansetron 4 mg tablet,disintegrating Active 4 MG PO Four times daily as needed for nausea and vomiting April 05, 2024 1:00am Start: 03-04-2024 Ondansetron Hc l 4 mg tablet Active 4 MG PO every 6 to 8 hours as needed for nausea and vomiting June 07, 2024 12:00am Start: 06-29-2019 End: 07-01-2019 Ondansetron Hcl (Zofran) 4 m g Tablet Discontinued 4 MG PO every 6 to 8 hours as needed for Nausea June 29, 2019 12:00am July 01, 2019 12:44pm polysaccharide iron complex 391 mg oral capsule (3 sources) Start: 08-28-2024 End: 09-27-2024 take 1 capsule by mouth once daily iron polysaccharides (ProFe) 391.3 (180 Fe) MG capsule Indications: Third trimester ([facility]) , Anemia affecting in third trimester ([facility]) Take 1 capsule (391.3 mg) by mouth Daily 30 capsule 6 08/28/2024 09/27/2024 Active promethazine hydrochloride 12.5 mg oral tablet (16 sources) Phenothiazine Start: 06-21-2024 End: 09-19-2024 take 1 tablet by mouth every six hours for nausea promethazine (Phenergan) 12.5 MG tablet Indications: Nausea and vomiting in ([facility]) Take 1 tablet (12.5 mg) by mouth every 6 (six) hours if needed for nausea or vomiting 180 tablet 1 06/21/2024 09/19/2024 Active Start: 03-08-2024 End: 06-06-2024 take 1 tablet [...] 06/06/2024 Active valACYclovir 500 mg oral tablet (17 sources) Herpesvirus Nucleoside Analog DNA Polymerase Inhibitor, [...] Sig (Original) acetaminophen 500 mg oral tablet (7 sources) Start: 07-01-2019 End: 04-28-2020 take 2 tablets by mouth every six hours as needed for pain Acetaminophen 500 mg Tablet Discontinued 1000 MG PO Q6H as needed for Fever Or Mild Pain (1 - 3) July 01, 2019 12:00am April 28, 2020 4:44pm Start: 07-01-2019 End: 04-28-2020 take 1000 mg by mouth every six hours Acetaminophen Discontinued 1000 MG PO Q6H July 01, 2019 12:00am April 28, 2020 4:44pm ciprofloxacin 250 mg oral tablet (7 sources) Quinolone Antimicrobial Start: 06-05-2017 End: 07-01-2018 take 1 tablet by mouth every twelve hours Ciprofloxacin Hcl (Cipro) 250 mg Tablet Discontinued 250 MG PO Q12H June 05, 2017 12:00am July 01, 2018 7:28pm docusate sodium 100 mg oral capsule (7 sources) Start: 07-01-2019 End: 04-28-2020 take 1 capsule by mouth once daily at bedtime as needed for constipation Docusate Sodium (Dok) 100 mg Capsule Discontinued 100 MG PO Daily at bedtime as needed for Constipation July 01, 2019 12:00am April 28, 2020 4:44pm doxycycline hyclate 100 mg oral capsule (7 sources) Tetracycline-class Drug Start: 05-09-2017 End: 06-05-2017 take 1 capsule by mouth twice daily Doxycycline Hyclate 100 mg capsule Discontinued 100 MG PO Twice daily 08 01May 09, 2017 1:00am June 05, 2017 1:56pm ibuprofen 600 mg oral tablet (7 sources) Nonsteroidal Anti-inflammatory Drug Start: 07-01-2019 End: 04-28-2020 take 1 tablet by mouth every six hours Ibuprofen 600 mg Tablet Discontinued 600 MG PO Every 6 hours July 01, 2019 12:00am April 28, 2020 4:44pm metroNIDAZOLE 500 mg oral tablet (7 sources) Nitroimidazole Antimicrobial Start: 05-09-2017 End: 05-16-2017 take 1 tablet by mouth twice daily Metronidazole (Flagyl) 500 mg tablet Discontinued 500 MG PO Twice daily 14 May 09, 2017 1:00am May 15, 2017 1:00am May 16, 2017 1:07am Ll-Zh-Rvse-Fa-Herb al Cmplx#190 (Vitamin D3 Complete) 18 mg iron-800 mcg-150 mg Tablet (7 sources) Start: 05-09-2017 End: 06-05-2017 Wj-Rk-Buva-Fa-Her bal Cmplx#190 (Vitamin D3 Complete) 18 mg iron-800 mcg-150 mg Tablet Discontinued TABLET May 09, 2017 12:00am June 05, 2017 12:56pm Start: 05-09-2017 End: 06-05-2017 Zm-Yh-Vvct-Fa-Herbal Cmplx#1 90 (Vitamin D3 Complete) 18 mg iron-800 mcg-150 mg Tablet Discontinued TABLET May 09, 2017 1:00am June 05, 2017 1:56pm nitrofurantoin, macrocrystals 50 mg oral capsule (7 sources) Nitrofuran Antibacterial Start: 05-09-2017 End: 06-05-2017 take 1 capsule by mouth every six hours Nitrofurantoin Macrocrystal 50 mg Capsule Discontinued 50 MG PO Q6H May 09, 2017 1:00am June 05, 2017 1:56pm Norgestimate-Ethinyl Estradiol (Sprintec (28)) 0.25-35 mg-mcg tablet (6 sources) Start: 06-14-2023 End: 12-09-2023 take 1 tablet by mouth once daily Norgestimate-Ethiny l Estradiol (Sprintec (28)) 0.25-35 mg-mcg tablet Discontinued 1 TAB PO Daily June 14, 2023 11:44am December 09, 2023 11:33am Start: 06-14-2023 End: 12-09-2023 take 1 tablet by mouth once daily Norgestimate-Ethinyl Estradiol (Sprintec (28)) 0.25-35 mg-mcg tablet Discontinued 1 TAB PO Daily June 14, 2023 10:44am December 09, 2023 10:33am Start: 06-14-2023 take 1 tablet by deshawn th once daily Norgestimate-Ethinyl Estradiol (Sprintec (28)) 0.25-35 mg-mcg tablet Active 1 TAB PO Daily June 14, 2023 11:44am phenazopyridine hydrochloride 200 mg oral tablet (7 sources) Start: 05-09-2017 End: 06-05-2017 take 1 tablet by mouth three times daily as needed for pain Phenazopyridine (Pyridium) 200 mg tablet Discontinued 200 MG PO Three times daily as needed for pain 10 May 09, 2017 1:00am June 05, 2017 1:56pm administer with a full glass of water with each meal Problems Active Problems Problem Classification Problem Date Documented Da te Episodic/Chronic Anxiety disorders (14 sources) Generalized anxiety disorder; Translations: [Generalized anxiety disorder] Chronic Contraceptive and procreative management (7 sources) Encounter for other contraceptive management; Translations: [Patient encounter status] Episodic Diabetes mellitus without complication (6 sources) Hyperglycemia, unspecified; Translations: [Abnormal glucose tolerance test] Onset: 2 Episodic Diabetes or abnormal glucose tolerance complicating ; childbirth; or the puerperium (2 sources) Gestational diabetes mellitus; Translations: [Gestational diabetes mellitus in , unspecified control] 08-28-2024 Episodic Esophageal disorders (17 sources) Gastroesophageal reflux disease; Translations: [Gastro-esophageal reflux disease without esophagitis] Onset: 4 04-07-2023 Chronic Fluid and electrolyte disorders (5 sources) Acute hypokalemia; Translations: [Hypokalemia] 03-12-2024 Episodic Headache; including migraine (20 sources) Tension-type headache; Translations: [Tension-type headache, unspecified, not intractable] Onset: 4 Chronic Headache; including migraine (6 sources) Headache; Translations: [Headache] 11-25-2023 Episodic Headache; including migraine (1 source) Headache; including migraine; Translations: [Headache, unspecified] Onset: 4 Hemorrhage during ; abruptio placenta; placenta previa (2 sources) Low lying placenta; Translations: [Low lying placenta NOS or without hemorrhage, unspecified trimester] 06-21-2024 Episodic Hepatitis (9 sources) Chronic hepatitis C; Translations: [Chronic viral hepatitis C] Chronic Immunizations and screening for infectious disease (6 sources) Encounter for screening for human papillomavirus (HPV); Translations: [Encounter for screening for infections with a predominantly sexual mode of transmission] Onset: 2 Episodic Inflammatory diseases of female pelvic organs (7 sources) Bacterial vaginosis; Translations: [Acute vaginitis] 05-09-2017 Episodic Comment on above: Problem List clean-u p per request of Phys. EHR Cmte Malaise and fatigue (8 sources) Fatigue; Translations: [Chronic fatigue, unspecified] Chronic Menstrual disorders (18 sources) Missed period; Translations: [Irregular menstruation, unspecified] Onset: 4 03-24-2024 Chronic Mood disorders (19 sources) Moderately severe depression; Translations: [Moderately severe depression] Onset: 4 04-07-2023 Chronic Open wounds of head; neck; and trunk (7 sources) Laceration - injury; Translations: [Laceration] 04-28-2020 Episodic Comment on above: Problem List clean-u p per request of Phys. EHR Cmte Other complications of (2 sources) Anemia in mother complicating , childbirth AND/OR puerperium; Translations: [Anemia complicating , third trimester] 08-28-2024 Chronic Other complications of (2 sources) Vomiting of ; Translations: [Vomiting of , unspecified] 07-19-2024 Episodic Other congenital anomalies (17 sources) Birthmark; Translations: [Congenital non-neoplastic nevus] Onset: 4 04-07-2023 Chronic Other female genital disorders (1 source) Vaginal discharge; Translations: [Other specified noninflammatory disorders of vagina] 05-25-2024 Episodic Other gastrointestinal disorders (1 source) Constipation, unspecified [...] deficit Chronic Other and delivery including normal (20 sources) Encounter for routine follow-up; Translations: [Single live ] Onset: 2 Episodic Other screening for suspected conditions (not mental disorders or infectious disease) (20 sources) Encounter for screening for malignant neoplasm of cervix; Translations: [Encounter for screening for Streptococcus B] Onset: 2 Episodic Other upper respiratory infections (2 sources) Upper respiratory infection; Translations: [Acute upper respiratory infection, unspecified] 07-19-2024 Episodic Otitis media and related conditions (1 source) Other specified disorders of Eustachian tube, unspecified ear Episodic Residual codes; unclassified (1 source) Gestation period, 8 weeks; Translations: [8 weeks gestation of ] 03-24-2024 Episodic Residual codes; unclassified (2 sources) Gestation period, 13 weeks; Translations: [13 weeks gestation of ] 04-24-2024 Episodic Residual codes; unclassified (1 source) Gestation period, 17 weeks; Translations: [17 weeks gestation of ] 05-25-2024 Episodic Residual codes; unclassified (2 sources) Gestation period, 21 weeks; Translations: [21 weeks gestation of ] 06-21-2024 Episodic Residual codes; unclassified (2 sources) Gestation period, 25 weeks; Translations: [25 weeks gestation of ] 07-19-2024 Episodic Residual codes; unclassified (2 sources) Gestation period, 31 weeks; Translations: [31 weeks gestation of ] 08-28-2024 Episodic Spontaneous (7 sources) with abortive outcome; Translations: [Incomplete spontaneous without complication] 07-05-2018 Episodic Comment on above: Problem List clean-u p per request of Phys. EHR Cmte Substance-related disorders (1 source) Cannabis abuse; Translations: [Cannabis abuse, uncomplicated] 06-29-2024 Chronic Thyroid disorders (17 sources) Goiter; Translations: [Nontoxic goiter, unspecified] Onset: 4 04-07-2023 Chronic Unclassified (1 source) Unknown / UNK(Unknown) Onset: 8 Unclassified (1 source) CONTACT W/AND (SUSP) EXPOS COVID-19; Translations: [CONTACT W/AND (SUSP) EXPOS COVID-19] Onset: 2 Urinary tract infections (7 sources) Urinary tract infectious disease; Translations: [Urinary tract infection, site not specified] 05-09-2017 Episodic Comment on above: Problem List clean-u p per request of Phys. EHR Cmte Viral infection (5 sources) Disease due to Rhinovirus; Translations: [Other viral infections of unspecified site] 04-05-2024 Episodic Past or Other Problems Problem Classification Problem Date Documented Da te Episodic/Chronic Nausea and vomiting (2 sources) Nausea and vomiting; Translations: [Nausea with vomiting, unspecified] Onset: 03-04-2024 06-29-2024 Episodic Other complications of (9 sources) Vomiting of , unspecified; Translations: [Unspecified vomiting of , unspecified as to episode of care or not applicable] Onset: 04-05-2024 03-24-2024 Episodic Other complications of (20 sources) Hyperemesis gravidarum; Translations: [Mild hyperemesis gravidarum] Onset: 05-19-2024 04-05-2024 Episodic Other gastrointestinal disorders (20 sources) Constipation; Translations: [Constipation, unspecified] Onset: 04-07-2023 06-05-2017 Episodic Comment on above: Problem List clean-u p per request of Phys. EHR Cmte Polyhydramnios and other problems of amniotic cavity [...] Spondylosis; intervertebral disc disorders; other back problems (7 sources) Cervical radiculopathy; Translations: [Radiculopathy, cervical region] Onset: 11-25-2023 11-25-2023 Episodic Unclassified (1 source) Z02.83 F19.21 Z13.6 N39.0 Onset: 04-21-2017 Unclassified (1 source) Vaginal ab B37.31 Results Test Name Value Interpretation Reference Range Facility [facility] 09-06-[address] [address] Ultrasound Report Signed Patient: NICOLE FARRIS MR#: [id number] : 1995 Acct:[id number] Age/Sex: 29 / F ADM Date: 09/05/24 Loc: US Attending Dr: Corby Royal Ordering Physician: Corby Royal Date of Service: 09/05/24 Procedure(s): US OB growth Accession Number(s): [id number] cc: Corby Royal; Jimy HOLLIS [place] [id number] Patient Name: NICOLE FARRIS MRN: [facility]:[id number] date: 1995 Sex: F Assigned Patient Location: [facility] Current Patient Location: [facility] [place]Order Number: [id number] Exam Date: 09/06/2024 07:48 Report Date: 09/06/2024 07:50 At the request of: CORBY ROYAL Procedure: US OB growth Limited ultrasound HISTORY: Assessment for growth. The a few cysts in cephalic presentation. The amniotic fluid index is 15.7 cm within normal limits. Largest fluid pocket is 4.4 cm. The heart rate 136 bpm. The average gestational age is 32 weeks 4 days. Estimated date of delivery 10/27/2024. Estimated weight 2075 g with weight percentile 51%. US/US OB growth IMPRESSION: Single live intrauterine gestation 32 weeks 4 days. Impression dictated by: Mikie Hurtado M.D. 09/06/2024 7:50 AM Dictation Location: [place] [address] Electronically authenticated by: [id number] Y Date: 09/06/2024 07:50 Dictated By: Mikie Hurtado D.O. Signed By: 09/06/24 0753 DD/ 0750 TD/TT: Senior Planner: [facility] Radiology, Radiologparth cifuentes MD - 09/06/2024 [address] [place] [address] Ultrasound Report Signed Patient: NICOLE FARRIS MR#: [id number] : 1995 Acct:[id number] Age/Sex: 29 / F ADM Date: 09/05/24 Loc: US Attending Dr: Corby Royal Ordering Physician: Corby Royal Date of Service: 09/05/24 Procedure(s): US OB growth Accession Number(s): [id number] cc: Corby Royal; Jimy HOLLIS [address] [address] Patient Name: NICOLE FARRIS MRN: [id number] date: 1995 Sex: F Assigned Patient Location: [facility] [place] [facility] [place]ion/Order Number: [id number] Exam Date: 09/06/2024 07:48 Report Date: 09/06/2024 07:50 At the request of: CORBY ROYAL Procedure: US OB growth Limited ultrasound HISTORY: Assessment for growth. The a few cysts in cephalic presentation. The amniotic fluid index is 15.7 cm within normal limits. Largest fluid pocket is 4.4 cm. The heart rate 136 bpm. The average gestational age is 32 weeks 4 days. Estimated date of delivery 10/27/2024. Estimated weight 2075 g with weight percentile 51%. US/US OB growth IMPRESSION: Single live intrauterine gestation 32 weeks 4 days. Impression dictated by: Mikie Hurtado M.D. 09/06/2024 7:50 AM Dictation Location: [employer] Electronically authenticated by: [id number] Y Date: 09/06/2024 07:50 Dictated By: Mikie Hurtado D.O. Signed By: 09/06/24 0753 DD/ 075 TD/TT: Senior Planner: [facility] Study observation (narrative) [facility] US OB GROWTHOrdered By: Chidi [email or web address] Radiology on 09-06-2024 [facility] Work Phone: Urinalysis macro (dipstick) panel (U)on 08-28-2024 Bilirubin, UA Negative Negative - 4(70) +++ mg/dL [facility] Blood, UA Negative Negative - 50 Josiah/mcL [facility] Clarity, UA Clear [facility] Color, UA Felisha [facility] Glucose, UA Negative Negative - 1999(110) ++++ mg/dL [facility] Interpretation and review of laboratory results Abnormal [facility] Ketones, UA Positive Negative - 160(16) ++++ mg/dL [facility] Comment on above: 15 Leukocytes, UA Positive Negative - 500+++ Archana/mcL [facility] Comment on above: small Nitrite, UA Negative Negative - Positive [facility] pH, UA 6.5 5 - 9 [facility] Protein, UA Trace Negative - 1999(20) ++++ mg/dL [facility] Spec Grav, UA 1.025 1 - 1.03 [facility] Urobilinogen, UA 1.0 0.2 - 12 mg/dL [facility] US OB LIMITED 1+ FETUSESon 0 07-19-2024 US OB LIMITED 1+ FETUSES EXAM: US OB LIMITED 1+ FETUSES HISTORY: Low-lying placenta. ALINA 10/27/2024. . x2. [...] II, MD, PHD at 23-Jul-2024 08:53:16 PM [facility] Normal Not Available Comment on above: Order Comment: US OB PLACENTA W US OB TRANSVAGINAL Estimated Date of Delivery: 10/27/24 Gestational Age as of 06/21/2024: 21w5d Urinalysis macro (dipstick) panel (U)on 07-19-2024 Bilirubin, UA Negative Negative - 4(70) +++ mg/dL [facility] Blood, UA Negative Negative - 50 Josiah/mcL [facility] Clarity, UA Clear [facility] Color, UA Yellow [facility] Glucose, UA Negative Negative - 1999(110) ++++ mg/dL [facility] Interpretation and review of laboratory results Abnormal [facility] Ketones, UA Negative Negative - 160(16) ++++ mg/dL [facility] Leukocytes, UA Trace Negative - 500+++ Archana/mcL [facility] Nitrite, UA Negative Negative - Positive [facility] pH, UA 7 5 - 9 [facility] Protein, UA Negative Negative - 1999(20) ++++ mg/dL [facility] Spec Grav, UA 1.02 1 - 1.03 [facility] Urobilinogen, UA 0.2 0.2 - 12 mg/dL [facility] Alanine aminotransferase [En zymatic activity/volume] in Serum or PlasmaOrdered By: Parminder Serrano on 06-29-2024 ALT [Catalytic activity/Vol] Alanine aminotransferase [Enzymatic activity/volume] in Serum or Plasma 7-52 [facility] Albumin [Mass/volume] in Ser um or Plasma by Bromocresol green (BCG) dye binding methoOrdered By: Parminder Serrano on 06-29-2024 Albumin BCG dye [Mass/Vol] Albumin [Mass/volume] in Serum or Plasma by Bromocresol green (BCG) dye binding metho 3.5-5.7 [facility] Alkaline phosphatase [Enzyma tic activity/volume] in Serum or PlasmaOrdered By: Parminder Serrano 06-29-2024 ALP [Catalytic activity/Vol] Alkaline phosphatase [Enzymatic activity/volume] in Serum or Plasma 34-104 [facility] Amphetamine Screen Ql (U)Ord ered By: Parminder Serrano on 06-29-2024 Amphetamines Ql (U) Amphetamines screen Negativ e [facility] Appearance of UrineOrdered B y: Parminder Serrano on 06-29-2024 Appearance (U) Urine appearance Abnormal Clear [facility] Aspartate aminotransferase [ Enzymatic activity/volume] in Serum or PlasmaOrdered By: Parminder Serrano on 06-29-2024 AST [Catalytic activity/Vol] Aspartate aminotransferase [Enzymatic activity/volume] in Serum or Plasma Low 13-39 [facility] Bacteria [Presence] in Urine by AutomatedOrdered By: Parminder Serrano on 06-29-2024 Bacteria Auto Ql (U) Bacteria [Presence] in Urine by Automated None Seen [facility] Barbiturates [Presence] in U rine by Screen methodOrdered By: Parminder Serrano on 06-29-2024 Barbiturates Screen Ql (U) Barbiturates [Presence] in Urine by Screen method Negative [facility] Basophils Auto (Bld) [#/Vol] Ordered By: Parminder Serrano on 06-29-2024 Basophils (Bld) [#/Vol] Automated basophil count 0.0-0.2 [facility] Basophils/100 WBC Auto (Bld) Ordered By: Parminder Serrano on 06-29-2024 Basophils/100 WBC (Bld) Automated basophil % . [facility] Benzodiazepines Screen Ql (U )Ordered By: Parminder Serrano on 06-29-2024 Benzodiazepines Ql (U) Benzodiazepines [Presence] in Urine by Screen method Negative [facility] Benzoylecgonine [Presence] i n Urine by Screen methodOrdered By: Parminder Serrano on 06-29-2024 Benzoylecgonine Screen Ql (U) Benzoylecgonine [Presence] in Urine by Screen method Negative [facility] Bilirubin Test strip Ql (U)O rdered By: Parminder Serrano on 06-29-2024 Bilirubin Ql (U) Bilirubin.total [Pre sence] in Urine by Test strip Negative [facility] Bilirubin.total [Mass/volume ] in Serum or PlasmaOrdered By: Parminder Serrano 06-29-2024 Bilirubin [Mass/Vol] Bilirubin.total [Mass/volume] in Serum or Plasma 0.3-1.0 [facility] Calcium [Mass/volume] in Ser um or PlasmaOrdered By: Parminder Serrano 06-29-2024 Calcium [Mass/Vol] Calcium [Mass/volume ] in Serum or Plasma 8.6-10.3 [facility] Cannabinoids [Presence] in U rine by Screen methodOrdered By: Parminder Serrano on 06-29-2024 Cannabinoids Screen Ql (U) Cannabinoids [Presence] in Urine by Screen method High Negative [facility] Comment on above: These are unconfirme d results and should not be used for legal purposes. Drug Cut-Off Concentration: AMPH 1000 ng/mL DENIS 200 ng/mL DIOR 200 ng/mL COCM 300 ng/mL OP 300 ng/mL PCP 25 ng/mL THC 20 ng/mL Carbon dioxide, total [Moles /volume] in Serum or PlasmaOrdered By: Parminder Serrano on 06-29-2024 CO2 [Moles/Vol] Carbon dioxide, tota l [Moles/volume] in Serum or Plasma Low 21.0-31.0 [facility] Chloride [Moles/volume] in S mayte or PlasmaOrdered By: Parminder Serrano on 06-29-2024 Chloride [Moles/Vol] Chloride [Moles/vol ume] in Serum or Plasma 98-107 [facility] Color Auto (U)Ordered By: Eduar Serrano on 06-29-2024 Color (U) Color of Urine by Auto Yellow [facility] Blood Count Auto Di ffon 06-29-2024 Basophils (Bld) [#/Vol] 0.0 10*3/uL Normal 0.0-0.2 [facility] Comment on above: Result Comment: PERF ORMED BY: [place] [address] PATHOLOGIST [employer] SARAH ANDREWS M.D. Performed By: #### H EPATIC, CBC, BMP, LIPASE #### [address] Basophils/100 WBC (Bld) 0.3 % Normal . [facility] Comment on above: Performed By: #### H EPATIC, CBC, BMP, LIPASE #### [facility] [address] Eosinophils (Bld) [#/Vol] 0.0 10*3/uL Normal 0.0-0.45 [facility] Comment on above: Performed By: #### H EPATIC, CBC, BMP, LIPASE #### [address] Eosinophils/100 WBC (Bld) 0.0 % Normal . [facility] Comment on above: Performed By: #### H EPATIC, CBC, BMP, LIPASE #### [address] Erythrocyte distribution width (RBC) [Ratio] 14.2 % Normal 11.9-15.3 [facility] Comment on above: Performed By: #### H EPATIC, CBC, BMP, LIPASE #### [address] Hematocrit (Bld) [Volume fraction] 31.2 % Low 34.0-46.4 [facility] Comment on above: Performed By: #### H EPATIC, CBC, BMP, LIPASE #### [address] Hemoglobin (Bld) [Mass/Vol] 10.3 g/dL Low 11.8-15.4 [facility] Comment on above: Performed By: #### H EPATIC, CBC, BMP, LIPASE #### [address] Lymphocytes (Bld) [#/Vol] 0.7 10*3/uL Low 1.00-4.8 [facility] Comment on above: Performed By: #### H EPATIC, CBC, BMP, LIPASE #### [address] Lymphocytes/100 WBC (Bld) 6.0 % Normal . [facility] Comment on above: Performed By: #### H EPATIC, CBC, BMP, LIPASE #### [address] MCH (RBC) [Entitic mass] 27.9 pg Normal 24.7-34.3 [facility] Comment on above: Performed By: #### H EPATIC, CBC, BMP, LIPASE #### [address] MCV (RBC) [Entitic vol] 84.8 fL Normal 80-100 [facility] Comment on above: Performed By: #### H EPATIC, CBC, BMP, LIPASE #### [address] Mean Corpuscular HGB Conc 32.9 g/dL Normal 32.0-35.0 [facility] Comment on above: Performed By: #### H EPATIC, CBC, BMP, LIPASE #### [address] Monocytes (Bld) [#/Vol] 0.2 10*3/uL Normal 0.0-0.8 [facility] Comment on above: Performed By: #### H EPATIC, CBC, BMP, LIPASE #### [address] Monocytes/100 WBC (Bld) 20.01 % High 0.00-20.00 [facility] Comment on above: Result Comment: For adults in ED, MDW > 20.0 may be associated with a higher risk of sepsis during the first 12 hrs of hospital admission Performed By: #### H EPATIC, CBC, BMP, LIPASE #### [address] Monocytes/100 WBC (Bld) 1.9 % Normal . [facility] Comment on above: Performed By: #### H EPATIC, CBC, BMP, LIPASE #### [address] Neutrophils (Bld) [#/Vol] 10.5 10*3/uL High 1.8-7.7 [facility] Comment on above: Performed By: #### H EPATIC, CBC, BMP, LIPASE #### [address] Neutrophils/100 WBC (Bld) 91.8 % Normal . [facility] Comment on above: Performed By: #### H EPATIC, CBC, BMP, LIPASE #### [address] NRBC% 0.1 /100{WBC} Normal 0-0.5 [facility] Comment on above: Performed By: #### H EPATIC, CBC, BMP, LIPASE #### [address] Platelet mean volume (Bld) [Entitic vol] 11.0 fL High 6.3-10.7 [facility] Comment on above: Performed By: #### H EPATIC, CBC, BMP, LIPASE #### [address] Platelets (Bld) [#/Vol] 206 10*3/uL Normal 150-450 [facility] Comment on above: Performed By: #### H EPATIC, CBC, BMP, LIPASE #### [address] RBC (Bld) [#/Vol] 3.69 10*6/uL Normal 3.60-5.[address] [facility] Comment on above: Performed By: #### H EPATIC, CBC, BMP, LIPASE #### [address] WBC (Bld) [#/Vol] 11.4 10*3/uL Normal 3.8-11.[address] [facility] Comment on above: Performed By: #### H EPATIC, CBC, BMP, LIPASE #### [address] Comprehensive Metabolic Pane blanquita 06-29-2024 Albumin [Mass/Vol] 3.8 g/dL Normal 3.5-5.7 [facility] Comment on above: Performed By: #### H EPATIC, CBC, BMP, LIPASE #### [address] Albumin/Globulin [Mass ratio] 1.0 {ratio} Normal [facility] Comment on above: Performed By: #### H EPATIC, CBC, BMP, LIPASE #### [address] ALP [Catalytic activity/Vol] 53 U/L Normal 34-104 [facility] Comment on above: Performed By: #### H EPATIC, CBC, BMP, LIPASE #### [address] ALT [Catalytic activity/Vol] 7 U/L Normal 7-52 [facility] Comment on above: Performed By: #### H EPATIC, CBC, BMP, LIPASE #### [facility] [address] Anion gap [Moles/Vol] Not performed Normal 6.0-15.0 [facility] Comment on above: Performed By: #### H EPATIC, CBC, BMP, LIPASE #### [address] Aspartate Amino Transferase Normal 13-39 [facility] Comment on above: Result Comment: Spec imen hemolyzed, redraw requested Performed By: #### H EPATIC, CBC, BMP, LIPASE #### [address] Bilirubin [Mass/Vol] 0.5 mg/dL Normal 0.3-1.0 [facility] Comment on above: Performed By: #### H EPATIC, CBC, BMP, LIPASE #### [address] Calcium [Mass/Vol] 9.5 mg/dL Normal 8.6-10.3 [facility] Comment on above: Performed By: #### H EPATIC, CBC, BMP, LIPASE #### [address] Chloride [Moles/Vol] 106 mmol/L Normal 98-107 [facility] Comment on above: Performed By: #### H EPATIC, CBC, BMP, LIPASE #### [address] CO2 [Moles/Vol] 19.4 mmol/L Low 21.0-31.0 [facility] Comment on above: Performed By: #### H EPATIC, CBC, BMP, LIPASE #### [address] Creatinine [Mass/Vol] 0.44 mg/dL Low 0.60-1.20 [facility] Comment on above: Performed By: #### H EPATIC, CBC, BMP, LIPASE #### [address] Creatinine Clr Calc Pharmacy 173.12 Normal [facility] Comment on above: Performed By: #### H EPATIC, CBC, BMP, LIPASE #### [address] GFR/1.73 sq M.predicted MDRD (S/P/Bld) [Vol rate/Area] mL/min/{1.73_m2} Normal [facility] Comment on above: Performed By: #### H EPATIC, CBC, BMP, LIPASE #### [address] Globulin (S) [Mass/Vol] 3.7 g/dL Normal [facility] Comment on above: Performed By: #### H EPATIC, CBC, BMP, LIPASE #### [address] Glucose [Mass/Vol] 130 mg/dL High 70-100 [facility] Comment on above: Result Comment: [facility] Glucose Reference Range is dependent on time and content of last meal. Glucose of more than 200 mg/dL in a nonstressed, ambulatory subject supports the diagnosis of Diabetes Mellitus. ADA recommended reference range Performed By: #### H EPATIC, CBC, BMP, LIPASE #### [address] Potassium Normal 3.5-5.1 [facility] Comment on above: Result Comment: Spec imen hemolyzed, redraw requested Performed By: #### H EPATIC, CBC, BMP, LIPASE #### [address] Protein [Mass/Vol] 7.5 g/dL Normal 6.4-8.9 [facility] Comment on above: Performed By: #### H EPATIC, CBC, BMP, LIPASE #### [address] Sodium [Moles/Vol] 138 mmol/L Normal 136-145 [facility] Comment on above: Performed By: #### H EPATIC, CBC, BMP, LIPASE #### [address] Urea nitrogen [Mass/Vol] 8 mg/dL Normal 7-25 [facility] Comment on above: Performed By: #### H EPATIC, CBC, BMP, LIPASE #### [address] Creatinine [Mass/volume] in Serum or PlasmaOrdered By: Parminder Serrano on 06-29-2024 Creatinine [Mass/Vol] Creatinine [Mass/v olume] in Serum or Plasma Low 0.60-1.20 [facility] Crystals [Presence] in Urine by AutomatedOrdered By: Parminder Serrano on 06-29-2024 Crystals Auto Ql (U) Crystals [Presence] in Urine by Automated [facility] Dipstick and Microscopicon 0 06-29-2024 Appearance (U) Cloudy Critically abnormal Clear [facility] Comment on above: Order Comment: Name Collection Type:: Clean-Voided Midstream Performed By: #### A DDONUAPLUS, URDS, CUU #### [address] Bacteria,Urine Rare Normal None Seen [facility] Comment on above: Order Comment: Name Collection Type:: Clean-Voided Midstream Performed By: #### A DDONUAPLUS, URDS, CUU #### [place] [address] [place] Bilirubin,Urine Negative Normal Negative [facility] Comment on above: Order Comment: Name Collection Type:: Clean-Voided Midstream Performed By: #### A DDONUAPLUS, URDS, CUU #### [address] Color (U) Light-Yellow Normal Yellow [facility] Comment on above: Order Comment: Name Collection Type:: Clean-Voided Midstream Performed By: #### A DDONUAPLUS, URDS, CUU #### [address] Glucose Ql (U) 50 mg/dL High Normal [facility] Comment on above: Order Comment: Name Collection Type:: Clean-Voided Midstream Performed By: #### A DDONUAPLUS, URDS, CUU #### [place] [address] [place] Hyaline Casts,Urine None Normal 0-8 [facility] Comment on above: Order Comment: Name Collection Type:: Clean-Voided Midstream Performed By: #### A DDONUAPLUS, URDS, CUU #### [address] Ketones Ql (U) 4+ High Negative [facility] Comment on above: Order Comment: Name Collection Type:: Clean-Voided Midstream Performed By: #### A DDONUAPLUS, URDS, CUU #### [address] Leukocyte esterase Test strip Ql (U) 3+ High Negative [facility] Comment on above: Order Comment: Name Collection Type:: Clean-Voided Midstream Performed By: #### A DDONUAPLUS, URDS, CUU #### [place] [address] [place] Mucus,Urine Rare Normal [facility] Comment on above: Order Comment: Name Collection Type:: Clean-Voided Midstream Result Comment: PERF ORMED BY: [place] [address] PATHOLOGIST [employer] SARAH ANDREWS M.D. Performed By: #### A DDONUAPLUS, URDS, CUU #### [place] [address] [place] Nitrite,Urine Negative Normal Negative [facility] Comment on above: Order Comment: Name Collection Type:: Clean-Voided Midstream Performed By: #### A DDONUAPLUS, URDS, CUU #### [place] [address] [place] Occult Blood,Urine Negative Normal Negative [facility] Comment on above: Order Comment: Name Collection Type:: Clean-Voided Midstream Result Comment: PERF ORMED BY: [place] [address] PATHOLOGIST [employer] SARAH ANDREWS M.D. Performed By: #### A DDONUAPLUS, URDS, CUU #### [address] Othe Crystals,Urine 2+ Normal [facility] Comment on above: Order Comment: Name Collection Type:: Clean-Voided Midstream Performed By: #### A DDONUAPLUS, URDS, CUU #### [address] pH (U) 8.5 [pH] Normal 5.0-9.0 [facility] Comment on above: Order Comment: Name Collection Type:: Clean-Voided Midstream Performed By: #### A DDONUAPLUS, URDS, CUU #### [address] Protein (U) [Mass/Vol] 30 mg/dL High Negative [facility] Comment on above: Order Comment: Name Collection Type:: Clean-Voided Midstream Performed By: #### A DDONUAPLUS, URDS, CUU #### [address] RBC,Urine 3-4 Normal 0-4 [facility] Comment on above: Order Comment: Name Collection Type:: Clean-Voided Midstream Performed By: #### A DDONUAPLUS, URDS, CUU #### [address] Specificy [place],Urine 1.019 Normal 1.001-1.03 0 [facility] Comment on above: Order Comment: Name Collection Type:: Clean-Voided Midstream Performed By: #### A DDONUAPLUS, URDS, CUU #### [address] Squamous Epithelial Cell,Urine 5-9 High 0-2 [facility] Comment on above: Order Comment: Name Collection Type:: Clean-Voided Midstream Performed By: #### A DDONUAPLUS, URDS, CUU #### [address] Urobilinogen,Urine Normal Normal Normal [facility] Comment on above: Order Comment: Name Collection Type:: Clean-Voided Midstream Performed By: #### A DDONUAPLUS, URDS, CUU #### [place] [address] [place] WBC,Urine 10-19 High 0-4 [facility] Comment on above: Order Comment: Name Collection Type:: Clean-Voided Midstream Performed By: #### A DDONUAPLUS, URDS, CUU #### [place] [address] [place] Drug Screen,Urineon 06-30-19 Amphetamine Screen,Urine Negative Normal Negative [facility] Comment on above: Performed By: #### A DDONUAPLUS, URDS, CUU #### [address] Barbiturate Screen,Urine Negative Normal Negative [facility] Comment on above: Performed By: #### A DDONUAPLUS, URDS, CUU #### [place] [address] [place] Benzodiazepines Screen,Urine Negative Normal Negative [facility] Comment on above: Performed By: #### A DDONUAPLUS, URDS, CUU #### [address] Cannabinoid Screen,Urine Positive High Negative [facility] Comment on above: Result Comment: Thes e are unconfirmed results and should not be used for legal purposes. Drug Cut-Off Concentration: AMPH 1000 ng/mL DENIS 200 ng/mL DIOR 200 ng/mL COCM 300 ng/mL OP 300 ng/mL PCP 25 ng/mL THC 20 ng/mL PERFORMED BY: [place] [address] PATHOLOGIST [employer] SARAH ANDREWS M.D. Performed By: #### A DDONUAPLUS, URDS, CUU #### [place] [address] [place] Cocaine Screen,Urine Negative Normal Negative [facility] Comment on above: Performed By: #### A DDONUAPLUS, URDS, CUU #### [facility] [address] Opiate Screen,Urine Negative Normal Negative [facility] Comment on above: Performed By: #### A DDONUAPLUS, URDS, CUU #### [facility] [address] Phencyclidine Screen,Urine Negative Normal Negative [facility] Comment on above: Performed By: #### A DDONUAPLUS, URDS, CUU #### [facility] [address] ECG 12 lead ECGon 06-29-2024 ECG 12 lead ECG [facility] Main [place] [address] [place] [address] Electrocardiograph Report Signed Patient: Nicole Farris MR#: [id number] : 1995 Acct:[id number] Age/Sex: 28 / F ADM Date: 06/29/24 Loc: ER Room: Type: [facility] ER Attending Dr: Ordering Provider: Parminder Serrano PA-C Date of Service: 06/29/2401/13/1509 ECG/ECG 12 [...] ECGs available Confirmed by SALUD SCHWARZ DO ([id number]) on 06/30/2024 7:11:38 PM Referred By: Electronically Signed By: SALUD SCHWARZ DO Transcribed By: MUS Signed By Salud Schwarz DO 06/30 Normal [facility] Eosinophils Auto (Bld) [#/Vo l]Ordered By: Parminder Serrano on 06-29-2024 Eosinophils (Bld) [#/Vol] Automated eosinophil count 0.0-0.45 [facility] Eosinophils/100 WBC Auto (Bl d)Ordered By: Parminder Serrano on 06-29-2024 Eosinophils/100 WBC (Bld) Automated eosinophil % . [facility] Epithelial cells.squamous [# /area] in Urine sediment by Automated countOrdered By: Parminder Serrano on 06-29-2024 Epithelial cells.squamous Auto (Urine sed) [#/Area] Epithelial cells.squamous [#/area] in Urine sediment by Automated count High 0-2 [facility] Erythrocyte distribution wid th Auto (RBC) [Ratio]Ordered By: Parminder Serrano on 06-29-2024 Erythrocyte distribution width (RBC) [Ratio] Erythrocyte distribution width [Ratio] by Automated count 11.9-15.3 [facility] Erythrocytes [#/area] in Uri ne sediment by Automated countOrdered By: Parminder Serrano on 06-29-2024 RBC Auto (Urine sed) [#/Area] Erythrocytes [#/area] in Urine sediment by Automated count 0-4 [facility] Globulin Calc (S) [Mass/Vol] Ordered By: Parminder Serrano 06-29-2024 Globulin (S) [Mass/Vol] Serum globulin measurement by calculation (mass/volume) [facility] Glucose [Mass/volume] in Ser um or PlasmaOrdered By: Parminder Serrano 06-29-2024 Glucose [Mass/Vol] Glucose [Mass/volume ] in Serum or Plasma High 70-100 [facility] Comment on above: ADA recommended refe rence rangeRandom Glucose Reference Range is dependent on time and content of last meal. Glucose of more than 200 mg/dL in a nonstressed, ambulatory subject supports the diagnosis of Diabetes Mellitus. Glucose [Mass/volume] in Uri ne by Test stripOrdered By: Parminder Serrano on 06-29-2024 Glucose Test strip (U) [Mass/Vol] Glucose [Mass/volume] in Urine by Test strip High Normal [facility] Hematocrit Auto (Bld) [Volum e fraction]Ordered By: Parminder Serrano 06-29-2024 Hematocrit (Bld) [Volume fraction] Hematocrit [Volume Fraction] of Blood by Automated count Low 34.0-46.4 [facility] Hemoglobin Test strip Ql (U) Ordered By: Pamrinder Serrano 06-29-2024 Hemoglobin Ql (U) Hemoglobin [Presence ] in Urine by Test strip Negative [facility] Hemoglobin [Mass/volume] in BloodOrdered By: Parminder Serrano on 06-29-2024 Hemoglobin (Bld) [Mass/Vol] Hemoglobin [Mass/volume] in Blood Low 11.8-15.4 [facility] Hyaline casts [#/area] in Ur ine sediment by Automated countOrdered By: Parminder Serrano on 06-29-2024 Hyaline casts Auto (Urine sed) [#/Area] Hyaline casts [#/area] in Urine sediment by Automated count 0-8 [facility] Ketones Test strip Ql (U)Ord ered By: Parminder Serrano on 06-29-2024 Ketones Ql (U) Ketones [Presence] i n Urine by Test strip High Negative [facility] Leukocyte esterase [Presence ] in Urine by Test stripOrdered By: Parminder Serrano on 06-29-2024 Leukocyte esterase Test strip Ql (U) Leukocyte esterase [Presence] in Urine by Test strip High Negative [facility] Leukocytes [#/area] in Urine sediment by Automated countOrdered By: Parminder Serrano on 06-29-2024 WBC Auto (Urine sed) [#/Area] Leukocytes [#/area] in Urine sediment by Automated count High 0-4 [facility] Leukocytes [#/volume] correc rossy for nucleated erythrocytes in Blood by Automated counOrdered By: Parminder Serrano on 06-29-2024 WBC corrected for nucl RBC Auto (Bld) [#/Vol] Leukocytes [#/volume] corrected for nucleated erythrocytes in Blood by Automated coun 3.8-11.6 [facility] Lymphocytes Auto (Bld) [#/Vo l]Ordered By: Parminder Serrano on 06-29-2024 Lymphocytes (Bld) [#/Vol] Lymphocytes [#/volume] in Blood by Automated count Low 1.00-4.8 [facility] Lymphocytes/100 WBC Auto (Bl d)Ordered By: Parminder Serrano on 06-29-2024 Lymphocytes/100 WBC (Bld) Lymphocytes/100 leukocytes in Blood by Automated count . [facility] MCH Auto (RBC) [Entitic mass ]Ordered By: Parminder Serrano on 06-29-2024 MCH (RBC) [Entitic mass] MCH [Entitic mass] by Automated count 24.7-34.3 [facility] MCHC Auto (RBC) [Mass/Vol]Or dered By: Parminder Serrano on 06-29-2024 MCHC (RBC) [Mass/Vol] MCHC [Mass/volume] by Automated count 32.0-35.0 [facility] MCV Auto (RBC) [Entitic vol] Ordered By: Parminder Serrano on 06-29-2024 MCV (RBC) [Entitic vol] MCV [Entitic volume] by Automated count 80-100 [facility] Magnesiumon 06-29-2024 Magnesium Normal 1.9-2.7 [facility] Comment on above: Result Comment: Spec imen hemolyzed, redraw requested PERFORMED BY: [facility] [address] [place] [address] PATHOLOGIST [employer] SARAH ANDREWS M.D. Performed By: #### H EPATIC, CBC, BMP, LIPASE #### [facility] [address] Magnesium [Mass/volume] in S mayte or PlasmaOrdered By: Parminder Serrano on 06-29-2024 Magnesium [Mass/Vol] Magnesium [Mass/vol ume] in Serum or Plasma Low 1.9-2.7 [facility] Monocyte distribution width [Entitic volume] in Blood by AutomatedOrdered By: Parminder Serrano on 06-29-2024 Monocyte distribution width Auto (Bld) [Entitic vol] Monocyte distribution width [Entitic volume] in Blood by Automated High 0.00-20.00 [facility] Comment on above: For adults in ED, MD W > 20.0 may be associated with a higher risk of sepsis during the first 12 hrs of hospital admission Monocytes Auto (Bld) [#/Vol] Ordered By: Parminder Serrano on 06-29-2024 Monocytes (Bld) [#/Vol] Automated blood monocyte count 0.0-0.8 [facility] Monocytes/100 WBC Auto (Bld) Ordered By: Parminder Serrano on 06-29-2024 Monocytes/100 WBC (Bld) Automated monocyte % . [facility] Mucus [Presence] in Urine by AutomatedOrdered By: Parminder Serrano on 06-29-2024 Mucus Auto Ql (U) Mucus [Presence] in Urine by Automated [facility] Neutrophils Auto (Bld) [#/Vo l]Ordered By: Parminder Serrano on 06-29-2024 Neutrophils (Bld) [#/Vol] Neutrophils [#/volume] in Blood by Automated count High 1.8-7.7 [facility] Neutrophils/100 WBC Auto (Bl d)Ordered By: Parminder Serrano on 06-29-2024 Neutrophils/100 WBC (Bld) Automated neutrophil % . [facility] Nitrite Test strip Ql (U)Ord ered By: Parminder Serrano on 06-29-2024 Nitrite Ql (U) Nitrite [Presence] i n Urine by Test strip Negative [facility] No Panel InformationOrdered By: Parminder Serrano on 06-29-2024 Estimated GFR (CKD-EPI) > 60.0 mL/Min [facility] Creatinine Clearance (Chem 173.12 [facility] Nucleated erythrocytes [Pres ence] in Blood by Automated countOrdered By: Parminder Serrano on 06-29-2024 Nucleated RBC Auto Ql (Bld) Nucleated erythrocytes [Presence] in Blood by Automated count 0-0.5 [facility] Opiates [Presence] in Urine by Screen methodOrdered By: Parminder Serrano on 06-29-2024 Opiates Screen Ql (U) Opiates [Presence] in Urine by Screen method Negative [facility] Phencyclidine Screen Ql (U)O rdered By: Parminder Serrano on 06-29-2024 Phencyclidine Ql (U) Phencyclidine [Pres ence] in Urine by Screen method Negative [facility] Platelet mean volume Auto (B ld) [Entitic vol]Ordered By: Parminder Serrano on 06-29-2024 Platelet mean volume (Bld) [Entitic vol] Platelet mean volume [Entitic volume] in Blood by Automated count High 6.3-10.7 [facility] Platelets Auto (Bld) [#/Vol] Ordered By: Parminder Serrano on 06-29-2024 Platelets (Bld) [#/Vol] Platelets [#/volume] in Blood by Automated count 150-450 [facility] Potassium [Moles/volume] in Serum or PlasmaOrdered By: Parminder Serrano on 06-29-2024 Potassium [Moles/Vol] Potassium [Moles/v olume] in Serum or Plasma 3.5-5.1 [facility] Protein Test strip (U) [Mass /Vol]Ordered By: Parminder Serrano on 06-29-2024 Protein (U) [Mass/Vol] Protein [Mass/volume] in Urine by Test strip High Negative [facility] Protein [Mass/volume] in Ser um or PlasmaOrdered By: Parminder Serrano on 06-29-2024 Protein [Mass/Vol] Protein [Mass/volume ] in Serum or Plasma 6.4-8.9 [facility] RBC Auto (Bld) [#/Vol]Ordere d By: Parminder Serrano on 06-29-2024 RBC (Bld) [#/Vol] Erythrocytes [#/volu me] in Blood by Automated count 3.60-5.00 [facility] Redraw Shine 06-29-2024 AST [Catalytic activity/Vol] 10 U/L Low 13-39 [facility] Comment on above: Result Comment: PERF ORMED BY: [place] [address] PATHOLOGIST [employer] SARAH ANDREWS M.D. Performed By: #### H EPATIC, CBC, BMP, LIPASE #### [address] Redraw Magnesiumon 5 Magnesium [Mass/Vol] 1.7 mg/dL Low 1.9-2.7 [facility] Comment on above: Performed By: #### H EPATIC, CBC, BMP, LIPASE #### [address] Redraw Potassiumon 5 Potassium [Moles/Vol] 3.8 mmol/L Normal 3.5-5.1 [facility] Comment on above: Performed By: #### H EPATIC, CBC, BMP, LIPASE #### [address] Serum or plasma albumin/glob ulin mass ratioOrdered By: Parminder Serrano on 06-29-2024 Albumin/Globulin [Mass ratio] Serum or plasma albumin/globulin mass ratio [facility] Serum or plasma anion gap de terminationOrdered By: Parminder Serrano on 06-29-2024 Anion gap [Moles/Vol] Serum or plasma an ion gap determination [facility] Comment on above: Test not performed Sodium [Moles/volume] in Ser um or PlasmaOrdered By: Parminder Serrano on 06-29-2024 Sodium [Moles/Vol] Sodium [Moles/volume ] in Serum or Plasma 136-145 [facility] Specific gravity Test strip (U) [Rel density]Ordered By: Parminder Serrano on 06-29-2024 Specific gravity (U) [Rel density] Specific gravity of Urine by Test strip 1.001-1.03 0 [facility] Urea nitrogen [Mass/volume] in Serum or PlasmaOrdered By: Parminder Serrano on 06-29-2024 Urea nitrogen [Mass/Vol] Urea nitrogen [Mass/volume] in Serum or Plasma 7-25 [facility] Urine Cultureon 06-29-2024 Bacteria identified Cx Nom (U) <9,000 colonies/ml mixed bacterial skin contaminants 2 Days PERFORMED BY: [place] [address] PATHOLOGIST [employer] SARAH ANDREWS M.D. Normal [facility] Comment on above: Performed By: #### A DDONUAPLUS, URDS, CUU #### [address] Urobilinogen Test strip (U) [Mass/Vol]Ordered By: Parminder Serrano on 06-29-2024 Urobilinogen (U) [Mass/Vol] Urobilinogen [Mass/volume] in Urine by Test strip Normal [facility] WBC Auto (Bld) [#/Vol]Ordere d By: Parminder Serrano on 06-29-2024 WBC (Bld) [#/Vol] Leukocytes [#/volume ] in Blood by Automated count 3.8-11.6 [facility] pH Test strip (U)Ordered By: Parminder Serrano on 06-29-2024 pH (U) pH of Urine by Test strip 5.0-9.0 [facility] Urinalysis macro (dipstick) panel (U)on 06-21-2024 Bilirubin, UA Negative Negative - 4(70) +++ mg/dL [facility] Blood, UA Negative Negative - 50 Josiah/mcL [facility] Clarity, UA Clear [facility] Color, UA Yellow [facility] Glucose, UA Negative Negative - 1999(110) ++++ mg/dL [facility] Interpretation and review of laboratory results Abnormal [facility] Ketones, UA Negative Negative - 160(16) ++++ mg/dL [facility] Leukocytes, UA Trace Negative - 500+++ Archana/mcL [facility] Nitrite, UA Negative Negative - Positive [facility] pH, UA 7 5 - 9 [facility] Protein, UA Trace Negative - 1999(20) ++++ mg/dL [facility] Spec Grav, UA 1.025 1 - 1.03 [facility] Urobilinogen, UA 0.2 0.2 - 12 mg/dL [facility] Alanine aminotransferase [En zymatic activity/volume] in Serum or PlasmaOrdered By: Mateo Navas on 06-07-2024 ALT [Catalytic activity/Vol] Alanine aminotransferase [Enzymatic activity/volume] in Serum or Plasma 7-52 [facility] Albumin [Mass/volume] in Ser um or Plasma by Bromocresol green (BCG) dye binding methoOrdered By: Mateo Navas on 06-07-2024 Albumin BCG dye [Mass/Vol] Albumin [Mass/volume] in Serum or Plasma by Bromocresol green (BCG) dye binding metho 3.5-5.7 [facility] Alkaline phosphatase [Enzyma tic activity/volume] in Serum or PlasmaOrdered By: Mateo Navas on 06-07-2024 ALP [Catalytic activity/Vol] Alkaline phosphatase [Enzymatic activity/volume] in Serum or Plasma 34-104 [facility] Amphetamine Screen Ql (U)Ord ered By: Mateo Navas on 06-07-2024 Amphetamines Ql (U) Amphetamines screen Negativ e [facility] Appearance of UrineOrdered B y: Mateo Navas on 06-07-2024 Appearance (U) Urine appearance Clear [facility] Aspartate aminotransferase [ Enzymatic activity/volume] in Serum or PlasmaOrdered By: Mateo Navas on 06-07-2024 AST [Catalytic activity/Vol] Aspartate aminotransferase [Enzymatic activity/volume] in Serum or Plasma Low 13-39 [facility] Barbiturates [Presence] in U rine by Screen methodOrdered By: Mateo Navas on 06-07-2024 Barbiturates Screen Ql (U) Barbiturates [Presence] in Urine by Screen method Negative [facility] Basic Metabolic Panelon 05-20 Anion gap [Moles/Vol] 12.8 mmol/L Normal 6.0-15.0 [facility] Comment on above: Performed By: #### H EPATIC, CBC, BMP, LIPASE #### [facility] [address] Calcium [Mass/Vol] 8.7 mg/dL Normal 8.6-10.3 [facility] Comment on above: Performed By: #### H EPATIC, CBC, BMP, LIPASE #### [facility] [address] [place] [address] [place] Chloride [Moles/Vol] 109 mmol/L High 98-107 [facility] Comment on above: Performed By: #### H EPATIC, CBC, BMP, LIPASE #### [facility] [address] [place] [address] [place] CO2 [Moles/Vol] 19.6 mmol/L Low 21.0-31.0 [facility] Comment on above: Performed By: #### H EPATIC, CBC, BMP, LIPASE #### [facility] [address] [place] [address] [place] Creatinine [Mass/Vol] 0.46 mg/dL Low 0.60-1.20 [facility] Comment on above: Performed By: #### H EPATIC, CBC, BMP, LIPASE #### [facility] [address] [place] [address] [place] Creatinine Clr Calc Pharmacy 167.01 Normal [facility] Comment on above: Performed By: #### H EPATIC, CBC, BMP, LIPASE #### [facility] [address] [place] [address] [place] GFR/1.73 sq M.predicted MDRD (S/P/Bld) [Vol rate/Area] mL/min/{1.73_m2} Normal [facility] Comment on above: Performed By: #### H EPATIC, CBC, BMP, LIPASE #### [address] Glucose [Mass/Vol] 156 mg/dL High 70-100 [facility] Comment on above: Result Comment: [place] Glucose Reference Range is dependent on time and content of last meal. Glucose of more than 200 mg/dL in a nonstressed, ambulatory subject supports the diagnosis of Diabetes Mellitus. ADA recommended reference range Performed By: #### H EPATIC, CBC, BMP, LIPASE #### [address] Potassium [Moles/Vol] 3.4 mmol/L Low 3.5-5.1 [facility] Comment on above: Performed By: #### H EPATIC, CBC, BMP, LIPASE #### [address] Sodium [Moles/Vol] 138 mmol/L Normal 136-145 [facility] Comment on above: Performed By: #### H EPATIC, CBC, BMP, LIPASE #### [address] Urea nitrogen [Mass/Vol] 6 mg/dL Low 7-25 [facility] Comment on above: Performed By: #### H EPATIC, CBC, BMP, LIPASE #### [place] [address] [place] Basophils Auto (Bld) [#/Vol] Ordered By: Mateo Navas on 06-07-2024 Basophils (Bld) [#/Vol] Automated basophil count 0.0-0.2 [facility] Basophils/100 WBC Auto (Bld) Ordered By: Mateo Navas on 06-07-2024 Basophils/100 WBC (Bld) Automated basophil % . [facility] Benzodiazepines Screen Ql (U )Ordered By: Mateo Navas on 06-07-2024 Benzodiazepines Ql (U) Benzodiazepines [Presence] in Urine by Screen method Negative [facility] Benzoylecgonine [Presence] i n Urine by Screen methodOrdered By: Mateo Navas on 06-07-2024 Benzoylecgonine Screen Ql (U) Benzoylecgonine [Presence] in Urine by Screen method Negative [facility] Bilirubin Test strip Ql (U)O rdered By: Mateo Navas on 06-07-2024 Bilirubin Ql (U) Bilirubin.total [Pre sence] in Urine by Test strip Negative [facility] Bilirubin.direct [Mass/volum e] in Serum or PlasmaOrdered By: Mateo Navas on 06-07-2024 Bilirubin.direct [Mass/Vol] Bilirubin.direct [Mass/volume] in Serum or Plasma Low 0.03-0.18 [facility] Comment on above: If the DBIL is less than 0.1, IBIL is not able to becalculated. Bilirubin.total [Mass/volume ] in Serum or PlasmaOrdered By: Mateo Navas on 06-07-2024 Bilirubin [Mass/Vol] Bilirubin.total [Mass/volume] in Serum or Plasma 0.3-1.0 [facility] Calcium [Mass/volume] in Ser um or PlasmaOrdered By: Mateo Navas on 06-07-2024 Calcium [Mass/Vol] Calcium [Mass/volume ] in Serum or Plasma 8.6-10.3 [facility] Cannabinoids [Presence] in U rine by Screen methodOrdered By: Mateo Navas on 06-07-2024 Cannabinoids Screen Ql (U) Cannabinoids [Presence] in Urine by Screen method High Negative [facility] Comment on above: These are unconfirme d results and should not be used for legal purposes. Drug Cut-Off Concentration: AMPH 1000 ng/mL DENIS 200 ng/mL DIOR 200 ng/mL COCM 300 ng/mL OP 300 ng/mL PCP 25 ng/mL THC 20 ng/mL Carbon dioxide, total [Moles /volume] in Serum or PlasmaOrdered By: Mateo Navas on 06-07-2024 CO2 [Moles/Vol] Carbon dioxide, tota l [Moles/volume] in Serum or Plasma Low 21.0-31.0 [facility] Chloride [Moles/volume] in S mayte or PlasmaOrdered By: Mateo Navas on 06-07-2024 Chloride [Moles/Vol] Chloride [Moles/vol ume] in Serum or Plasma High 98-107 [facility] Color Auto (U)Ordered By: Lamont Navas on 06-07-2024 Color (U) Color of Urine by Auto Yellow Fi [facility] Complete Blood Count Auto Di ffon 06-07-2024 Basophils (Bld) [#/Vol] 0.0 10*3/uL Normal 0.0-0.2 [facility] Comment on above: Result Comment: PERF ORMED BY: [place] [address] PATHOLOGIST [employer] SARAH ANDREWS M.D. Performed By: #### H EPATIC, CBC, BMP, LIPASE #### [address] Basophils/100 WBC (Bld) 0.1 % Normal . [facility] Comment on above: Performed By: #### H EPATIC, CBC, BMP, LIPASE #### [address] Eosinophils (Bld) [#/Vol] 0.0 10*3/uL Normal 0.0-0.45 [facility] Comment on above: Performed By: #### H EPATIC, CBC, BMP, LIPASE #### [address] Eosinophils/100 WBC (Bld) 0.0 % Normal . [facility] Comment on above: Performed By: #### H EPATIC, CBC, BMP, LIPASE #### [address] Erythrocyte distribution width (RBC) [Ratio] 13.6 % Normal 11.9-15.3 [facility] Comment on above: Performed By: #### H EPATIC, CBC, BMP, LIPASE #### [address] Hematocrit (Bld) [Volume fraction] 33.6 % Low 34.0-46.4 [facility] Comment on above: Performed By: #### H EPATIC, CBC, BMP, LIPASE #### [address] Hemoglobin (Bld) [Mass/Vol] 11.4 g/dL Low 11.8-15.4 [facility] Comment on above: Performed By: #### H EPATIC, CBC, BMP, LIPASE #### [address] Lymphocytes (Bld) [#/Vol] 0.9 10*3/uL Low 1.00-4.8 [facility] Comment on above: Performed By: #### H EPATIC, CBC, BMP, LIPASE #### [address] Lymphocytes/100 WBC (Bld) 7.2 % Normal . [facility] Comment on above: Performed By: #### H EPATIC, CBC, BMP, LIPASE #### [address] MCH (RBC) [Entitic mass] 29.1 pg Normal 24.7-34.3 [facility] Comment on above: Performed By: #### H EPATIC, CBC, BMP, LIPASE #### [address] MCV (RBC) [Entitic vol] 85.7 fL Normal 80-100 [facility] Comment on above: Performed By: #### H EPATIC, CBC, BMP, LIPASE #### [address] Mean Corpuscular HGB Conc 34.0 g/dL Normal 32.0-35.0 [facility] Comment on above: Performed By: #### H EPATIC, CBC, BMP, LIPASE #### [address] Monocytes (Bld) [#/Vol] 0.3 10*3/uL Normal 0.0-0.8 [facility] Comment on above: Performed By: #### H EPATIC, CBC, BMP, LIPASE #### [address] Monocytes/100 WBC (Bld) 22.40 % High 0.00-20.00 [facility] Comment on above: Result Comment: For adults in ED, MDW > 20.0 may be associated with a higher risk of sepsis during the first 12 hrs of hospital admission Performed By: #### H EPATIC, CBC, BMP, LIPASE #### [address] Monocytes/100 WBC (Bld) 2.4 % Normal . [facility] Comment on above: Performed By: #### H EPATIC, CBC, BMP, LIPASE #### [address] Neutrophils (Bld) [#/Vol] 11.1 10*3/uL High 1.8-7.7 [facility] Comment on above: Performed By: #### H EPATIC, CBC, BMP, LIPASE #### [place] [address] [place] Neutrophils/100 WBC (Bld) 90.3 % Normal . [facility] Comment on above: Performed By: #### H EPATIC, CBC, BMP, LIPASE #### [place] [address] [place] NRBC% 0.1 /100{WBC} Normal 0-0.5 [facility] Comment on above: Performed By: #### H EPATIC, CBC, BMP, LIPASE #### [place] [address] [place] Platelet mean volume (Bld) [Entitic vol] 11.1 fL High 6.3-10.7 [facility] Comment on above: Performed By: #### H EPATIC, CBC, BMP, LIPASE #### [place] [address] [place] Platelets (Bld) [#/Vol] 190 10*3/uL Normal 150-450 [facility] Comment on above: Performed By: #### H EPATIC, CBC, BMP, LIPASE #### [place] [address] [place] RBC (Bld) [#/Vol] 3.92 10*6/uL Normal 3.60-5.[address] [facility] Comment on above: Performed By: #### H EPATIC, CBC, BMP, LIPASE #### [address] WBC (Bld) [#/Vol] 12.3 10*3/uL High 3.8-11.[address] [facility] Comment on above: Performed By: #### H EPATIC, CBC, BMP, LIPASE #### [address] Creatinine [Mass/volume] in Serum or PlasmaOrdered By: Mateo Navas on 06-07-2024 Creatinine [Mass/Vol] Creatinine [Mass/v olume] in Serum or Plasma Low 0.60-1.20 [facility] Drug Screen,Urineon 06-08-19 25 Amphetamine Screen,Urine Negative Normal Negative [facility] Comment on above: Performed By: #### H EPATIC, CBC, BMP, LIPASE #### [address] Barbiturate Screen,Urine Negative Normal Negative [facility] [facility] Comment on above: Performed By: #### H EPATIC, CBC, BMP, LIPASE #### [address] Benzodiazepines Screen,Urine Negative Normal Negative [facility] Comment on above: Performed By: #### H EPATIC, CBC, BMP, LIPASE #### [address] Cannabinoid Screen,Urine Positive High Negative [facility] Comment on above: Result Comment: Thes e are unconfirmed results and should not be used for legal purposes. Drug Cut-Off Concentration: AMPH 1000 ng/mL DENIS 200 ng/mL DIOR 200 ng/mL COCM 300 ng/mL OP 300 ng/mL PCP 25 ng/mL THC 20 ng/mL PERFORMED BY: [place] [address] PATHOLOGIST [employer] SARAH ANDREWS M.D. Performed By: #### H EPATIC, CBC, BMP, LIPASE #### [facility] [address] Cocaine Screen,Urine Negative Normal Negative [facility] Comment on above: Performed By: #### H EPATIC, CBC, BMP, LIPASE #### [facility] [address] Opiate Screen,Urine Negative Normal Negative The [facility] Comment on above: Performed By: #### H EPATIC, CBC, BMP, LIPASE #### [facility] [address] Phencyclidine Screen,Urine Negative Normal Negative [facility] Comment on above: Performed By: #### H EPATIC, CBC, BMP, LIPASE #### [facility] [address] Eosinophils Auto (Bld) [#/Vo l]Ordered By: Mateo Navas on 06-07-2024 Eosinophils (Bld) [#/Vol] Automated eosinophil count 0.0-0.45 [facility] Eosinophils/100 WBC Auto (Bl d)Ordered By: Mateo Navas on 06-07-2024 Eosinophils/100 WBC (Bld) Automated eosinophil % . [facility] Erythrocyte distribution wid th Auto (RBC) [Ratio]Ordered By: Mateo Navas on 06-07-2024 Erythrocyte distribution width (RBC) [Ratio] Erythrocyte distribution width [Ratio] by Automated count 11.9-15.3 [facility] Globulin Calc (S) [Mass/Vol] Ordered By: Mateo Navas on 06-07-2024 Globulin (S) [Mass/Vol] Serum globulin measurement by calculation (mass/volume) [facility] Glucose [Mass/volume] in Ser um or PlasmaOrdered By: Mateo Navas on 06-07-2024 Glucose [Mass/Vol] Glucose [Mass/volume ] in Serum or Plasma High 70-100 [facility] Comment on above: ADA recommended refe rence rangeRandom Glucose Reference Range is dependent on time and content of last meal. Glucose of more than 200 mg/dL in a nonstressed, ambulatory subject supports the diagnosis of Diabetes Mellitus. Glucose [Mass/volume] in Uri ne by Test stripOrdered By: Mateo Navas on 06-07-2024 Glucose Test strip (U) [Mass/Vol] Glucose [Mass/volume] in Urine by Test strip High Normal [facility] Hematocrit Auto (Bld) [Volum e fraction]Ordered By: Mateo Navas on 06-07-2024 Hematocrit (Bld) [Volume fraction] Hematocrit [Volume Fraction] of Blood by Automated count Low 34.0-46.4 [facility] Hemoglobin Test strip Ql (U) Ordered By: Mateo Navas on 06-07-2024 Hemoglobin Ql (U) Hemoglobin [Presence ] in Urine by Test strip Negative [facility] Hemoglobin [Mass/volume] in BloodOrdered By: Mateo Navas on 06-07-2024 Hemoglobin (Bld) [Mass/Vol] Hemoglobin [Mass/volume] in Blood Low 11.8-15.4 [facility] Hepatic Panelon 06-07-2024 Albumin [Mass/Vol] 3.9 g/dL Normal 3.5-5.7 [facility] Comment on above: Performed By: #### H EPATIC, CBC, BMP, LIPASE #### [address] Albumin/Globulin [Mass ratio] 1.2 {ratio} Normal [facility] Comment on above: Performed By: #### H EPATIC, CBC, BMP, LIPASE #### [address] ALP [Catalytic activity/Vol] 44 U/L Normal 34-104 [facility] Comment on above: Performed By: #### H EPATIC, CBC, BMP, LIPASE #### [address] ALT [Catalytic activity/Vol] 7 U/L Normal 7-52 [facility] Comment on above: Performed By: #### H EPATIC, CBC, BMP, LIPASE #### [address] AST [Catalytic activity/Vol] 11 U/L Low 13-39 [facility] Comment on above: Performed By: #### H EPATIC, CBC, BMP, LIPASE #### [address] [address] [place] Bilirubin [Mass/Vol] 0.3 mg/dL Normal 0.3-1.0 [facility] Comment on above: Performed By: #### H EPATIC, CBC, BMP, LIPASE #### [address] Bilirubin,Indirect 0.3 mg/dL Normal [facility] Comment on above: Performed By: #### H EPATIC, CBC, BMP, LIPASE #### [address] Bilirubin.indirect [Mass/Vol] 0.00 mg/dL Low 0.03-0.18 [facility] Comment on above: Result Comment: If t he DBIL is less than 0.1, IBIL is not able to be calculated. Performed By: #### H EPATIC, CBC, BMP, LIPASE #### [address] Globulin (S) [Mass/Vol] 3.2 g/dL Normal [facility] Comment on above: Performed By: #### H EPATIC, CBC, BMP, LIPASE #### [address] Protein [Mass/Vol] 7.1 g/dL Normal 6.4-8.9 [facility] Comment on above: Performed By: #### H EPATIC, CBC, BMP, LIPASE #### [address] Ketones Test strip Ql (U)Ord ered By: Mateo Navas on 06-07-2024 Ketones Ql (U) Ketones [Presence] i n Urine by Test strip High Negative [facility] Leukocyte esterase [Presence ] in Urine by Test stripOrdered By: Mateo Navas on 06-07-2024 Leukocyte esterase Test strip Ql (U) Leukocyte esterase [Presence] in Urine by Test strip Negative [facility] Leukocytes [#/volume] correc rossy for nucleated erythrocytes in Blood by Automated counOrdered By: Mateo Navas on 06-07-2024 WBC corrected for nucl RBC Auto (Bld) [#/Vol] Leukocytes [#/volume] corrected for nucleated erythrocytes in Blood by Automated coun High 3.8-11.6 [facility] Lipaseon 06-07-2024 Lipase [Catalytic activity/Vol] 13.0 U/L Normal 11.0-82.0 [facility] Comment on above: Result Comment: PERF ORMED BY: [place] [address] PATHOLOGIST [employer] SARAH ANDREWS M.D. Performed By: #### H EPATIC, CBC, BMP, LIPASE #### [facility] [address] Lipase [Enzymatic activity/v olume] in Serum or PlasmaOrdered By: Mateo Navas on 06-07-2024 Lipase [Catalytic activity/Vol] Lipase [Enzymatic activity/volume] in Serum or Plasma 11.0-82.0 [facility] Lymphocytes Auto (Bld) [#/Vo l]Ordered By: Mateo Navas on 06-07-2024 Lymphocytes (Bld) [#/Vol] Lymphocytes [#/volume] in Blood by Automated count Low 1.00-4.8 [facility] Lymphocytes/100 WBC Auto (Bl d)Ordered By: Mateo Navas on 06-07-2024 Lymphocytes/100 WBC (Bld) Lymphocytes/100 leukocytes in Blood by Automated count . [facility] MCH Auto (RBC) [Entitic mass ]Ordered By: Mateo Navas on 06-07-2024 MCH (RBC) [Entitic mass] MCH [Entitic mass] by Automated count 24.7-34.3 [facility] MCHC Auto (RBC) [Mass/Vol]Or dered By: Mateo Navas on 06-07-2024 MCHC (RBC) [Mass/Vol] MCHC [Mass/volume] by Automated count 32.0-35.0 [facility] MCV Auto (RBC) [Entitic vol] Ordered By: Mateo Navas on 06-07-2024 MCV (RBC) [Entitic vol] MCV [Entitic volume] by Automated count 80-100 [facility] Monocyte distribution width [Entitic volume] in Blood by AutomatedOrdered By: Mateo Navas on 06-07-2024 Monocyte distribution width Auto (Bld) [Entitic vol] Monocyte distribution width [Entitic volume] in Blood by Automated High 0.00-20.00 [facility] Comment on above: For adults in ED, MD W > 20.0 may be associated with a higher risk of sepsis during the first 12 hrs of hospital admission Monocytes Auto (Bld) [#/Vol] Ordered By: Mateo Navas on 06-07-2024 Monocytes (Bld) [#/Vol] Automated blood monocyte count 0.0-0.8 [facility] Monocytes/100 WBC Auto (Bld) Ordered By: Mateo Navas on 06-07-2024 Monocytes/100 WBC (Bld) Automated monocyte % . [facility] Neutrophils Auto (Bld) [#/Vo l]Ordered By: Mateo Navas on 06-07-2024 Neutrophils (Bld) [#/Vol] Neutrophils [#/volume] in Blood by Automated count High 1.8-7.7 [facility] Neutrophils/100 WBC Auto (Bl d)Ordered By: Mateo Navas on 06-07-2024 Neutrophils/100 WBC (Bld) Automated neutrophil % . [facility] Nitrite Test strip Ql (U)Ord ered By: Mateo Navas on 06-07-2024 Nitrite Ql (U) Nitrite [Presence] i n Urine by Test strip Negative [facility] No Panel InformationOrdered By: Mateo Navas on 06-07-2024 Estimated GFR (CKD-EPI) > 60.0 mL/Min [facility] Creatinine Clearance (Chem 167.01 [facility] Nucleated erythrocytes [Pres ence] in Blood by Automated countOrdered By: Mateo Navas on 06-07-2024 Nucleated RBC Auto Ql (Bld) Nucleated erythrocytes [Presence] in Blood by Automated count 0-0.5 [facility] Opiates [Presence] in Urine by Screen methodOrdered By: Mateo Navas on 06-07-2024 Opiates Screen Ql (U) Opiates [Presence] in Urine by Screen method Negative [facility] Phencyclidine Screen Ql (U)O rdered By: Mateo Navas on 06-07-2024 Phencyclidine Ql (U) Phencyclidine [Pres ence] in Urine by Screen method Negative [facility] Platelet mean volume Auto (B ld) [Entitic vol]Ordered By: Mateo Navas on 06-07-2024 Platelet mean volume (Bld) [Entitic vol] Platelet mean volume [Entitic volume] in Blood by Automated count High 6.3-10.7 [facility] Platelets Auto (Bld) [#/Vol] Ordered By: Mateo Navas on 06-07-2024 Platelets (Bld) [#/Vol] Platelets [#/volume] in Blood by Automated count 150-450 [facility] Potassium [Moles/volume] in Serum or PlasmaOrdered By: Mateo Navas on 06-07-2024 Potassium [Moles/Vol] Potassium [Moles/v olume] in Serum or Plasma Low 3.5-5.1 [facility] Protein Test strip (U) [Mass /Vol]Ordered By: Mateo Navas on 06-07-2024 Protein (U) [Mass/Vol] Protein [Mass/volume] in Urine by Test strip Negative [facility] Protein [Mass/volume] in Ser um or PlasmaOrdered By: Mateo Navas on 06-07-2024 Protein [Mass/Vol] Protein [Mass/volume ] in Serum or Plasma 6.4-8.9 [facility] RBC Auto (Bld) [#/Vol]Ordere d By: Mateo Navas on 06-07-2024 RBC (Bld) [#/Vol] Erythrocytes [#/volu me] in Blood by Automated count 3.60-5.00 [facility] Serum or plasma albumin/glob ulin mass ratioOrdered By: Mateo Navas on 06-07-2024 Albumin/Globulin [Mass ratio] Serum or plasma albumin/globulin mass ratio [facility] Serum or plasma anion gap de terminationOrdered By: Mateo Navas on 06-07-2024 Anion gap [Moles/Vol] Serum or plasma an ion gap determination 6.0-15.0 [facility] Serum or plasma non-glucuron idated bilirubin measurement (mass/volume)Ordered By: Mateo Navas on 06-07-2024 Bilirubin.indirect [Mass/Vol] Serum or plasma non-glucuronidated bilirubin measurement (mass/volume) [facility] Sodium [Moles/volume] in Ser um or PlasmaOrdered By: Mateo Navas on 06-07-2024 Sodium [Moles/Vol] Sodium [Moles/volume ] in Serum or Plasma 136-145 [facility] Specific gravity Test strip (U) [Rel density]Ordered By: Mateo Navas on 06-07-2024 Specific gravity (U) [Rel density] Specific gravity of Urine by Test strip 1.001-1.03 0 [facility] Urea nitrogen [Mass/volume] in Serum or PlasmaOrdered By: Mateo Navas on 06-07-2024 Urea nitrogen [Mass/Vol] Urea nitrogen [Mass/volume] in Serum or Plasma Low 7-25 [facility] Urinalysison 06-07-2024 Appearance (U) Clear Normal Clear [facility] Comment on above: Order Comment: Name Collection Type:: Clean-Voided Midstream Performed By: #### H EPATIC, CBC, BMP, LIPASE #### [facility] [address] Bilirubin,Urine Negative Normal Negative [facility] Comment on above: Order Comment: Name Collection Type:: Clean-Voided Midstream Performed By: #### H EPATIC, CBC, BMP, LIPASE #### [facility] [address] [place] [address] [place] Color (U) Light-Yellow Normal Yellow [facility] Comment on above: Order Comment: Name Collection Type:: Clean-Voided Midstream Performed By: #### H EPATIC, CBC, BMP, LIPASE #### [facility] [address] [place] [address] [place] Glucose Ql (U) 200 mg/dL High Normal [facility] Comment on above: Order Comment: Name Collection Type:: Clean-Voided Midstream Performed By: #### H EPATIC, CBC, BMP, LIPASE #### [facility] [address] [place] [address] [place] Ketones Ql (U) 4+ High Negative [facility] Comment on above: Order Comment: Name Collection Type:: Clean-Voided Midstream Performed By: #### H EPATIC, CBC, BMP, LIPASE #### [address] Leukocyte esterase Test strip Ql (U) Negative Normal Negative [facility] Comment on above: Order Comment: Name Collection Type:: Clean-Voided Midstream Performed By: #### H EPATIC, CBC, BMP, LIPASE #### [address] Nitrite,Urine Negative Normal Negative [facility] Comment on above: Order Comment: Name Collection Type:: Clean-Voided Midstream Performed By: #### H EPATIC, CBC, BMP, LIPASE #### [address] Occult Blood,Urine Negative Normal Negative [facility] Comment on above: Order Comment: Name Collection Type:: Clean-Voided Midstream Result Comment: PERF ORMED BY: [place] [address] PATHOLOGIST [employer] SARAH ANDREWS M.D. Performed By: #### H EPATIC, CBC, BMP, LIPASE #### [address] pH (U) 8.0 [pH] Normal 5.0-9.0 [facility] Comment on above: Order Comment: Name Collection Type:: Clean-Voided Midstream Performed By: #### H EPATIC, CBC, BMP, LIPASE #### [address] Protein,Urine Negative Normal Negative [facility] Comment on above: Order Comment: Name Collection Type:: Clean-Voided Midstream Performed By: #### H EPATIC, CBC, BMP, LIPASE #### [address] Specificy [place],Urine 1.020 Normal 1.001-1.03 0 [facility] Comment on above: Order Comment: Name Collection Type:: Clean-Voided Midstream Performed By: #### H EPATIC, CBC, BMP, LIPASE #### [place] [id number] [place] Urobilinogen,Urine Normal Normal Normal [facility] Comment on above: Order Comment: Name Collection Type:: Clean-Voided Midstream Performed By: #### H EPATIC, CBC, BMP, LIPASE #### [facility] [address] Urobilinogen Test strip (U) [Mass/Vol]Ordered By: Mateo Navas on 06-07-2024 Urobilinogen (U) [Mass/Vol] Urobilinogen [Mass/volume] in Urine by Test strip Normal [facility] WBC Auto (Bld) [#/Vol]Ordere d By: Mateo Navas on 06-07-2024 WBC (Bld) [#/Vol] Leukocytes [#/volume ] in Blood by Automated count High 3.8-11.6 [facility] pH Test strip (U)Ordered By: Mateo Navas on 06-07-2024 pH (U) pH of Urine by Test strip 5.0-9.0 [facility] IGP,APTIMA HPV,AGE GDLNon AGE GDLN ACOG TESTING Note . [facility] Comment on above: TESTS RESULT FLAG UN ITS REF RANGE LAB Clinician Provided Cytology Information Source.............Cervix No. of containers..01 ThinPrep Vial Age Algo ACOG Katharina... FLAG LEGEND: L-Low Normal,H-High Normal,LL-Alert Low,HH-Alert High <-Panic Low,>-Panic High,A-Abnormal,AA-Critical Abnormal Performed at: 01 =[address] [place] [address] Naina Arthur MD, HPV APTIMA Negative Negative [facility] Comment on above: This nucleic acid am plification test detects fourteen high- risk HPV types (16,18,31,33,35,39,45,51,52,56,58,59,66,68) without differentiation. Performed at: =[address] [id number] Senior Abap Developer: Naina Arthur MD, Phone: [phone] Performed at: [address] [id number] Senior Abap Developer: Naina Arthur MD, Phone: [phone] IGP, APTIMA HPV, RFX 16/18,45 Note . [facility] Comment on above: TESTS RESULT FLAG UN ITS REF RANGE LAB DIAGNOSIS: 02 NEGATIVE FOR INTRAEPITHELIAL LESION OR MALIGNANCY. THIS SPECIMEN WAS RESCREENED PART OF OUR SCALE EXPERT PROGRAM. Specimen adequacy: 02 Satisfactory for evaluation. No endocervical component is identified. Performed by: 02 Yakelin Ramey Barrel Rifler Operator (ASCP) QC reviewed by: 02 Nash Guerra Barrel Rifler Operator (ASCP) . 02 Note: Note 02 The Pap smear is a screening test designed to aid in the detection of premalignant and malignant conditions of the uterine cervix. It is not a diagnostic procedure and should not be used as the sole means of detecting cervical cancer. Both false-positive and false-negative reports do occur. Test Methodology: Note 02 This liquid based ThinPrep(R) pap test was screened with the use of an image guided system. HPV Genotype Reflex Note 02 Criteria not met, HPV Genotype not performed. FLAG LEGEND: L-Low Normal,H-High Normal,LL-Alert Low,HH-Alert High <-Panic Low,>-Panic High,A-Abnormal,AA-Critical Abnormal Performed at: [address] [address] Naina Arthur MD, SPATULA-ALONE CERVIX [facility] US OB 14+ WEEKS ANATOMY SCAN on 05-25-2024 US OB 14+ WEEKS ANATOMY SCAN EXAM: US OB 14+ WEEKS ANATOMY SCAN HISTORY: anatomy. COMPARISON: OB ultrasound 03/24/2024. [...] II, MD, PHD at 13-Jun-2024 09:57:02 AM [facility] Normal Not Available Comment on above: Order Comment: US OB ANATOMY SINGLE W US OB CERVICAL LENGTH Estimated Date of Delivery: 10/27/24 Gestational Age as of 05/25/2024: 17w6d Urinalysis macro (dipstick) panel (U)on 05-25-2024 Bilirubin, UA Negative Negative - 4(70) +++ mg/dL [facility] Blood, UA Negative Negative - 50 Josiah/mcL [facility] Clarity, UA Clear [facility] Color, UA Yellow [facility] Glucose, UA Negative Negative - 1999(110) ++++ mg/dL [facility] Interpretation and review of laboratory results Abnormal [facility] Ketones, UA Negative Negative - 160(16) ++++ mg/dL [facility] Leukocytes, UA Negative Negative - 500+++ Archana/mcL [facility] Nitrite, UA Negative Negative - Positive [facility] pH, UA 7 5 - 9 [facility] Protein, UA Trace Negative - 2000(20) ++++ mg/dL [facility] Spec Grav, UA 1.025 1 - 1.03 [facility] Urobilinogen, UA 0.2 0.2 - 12 mg/dL [facility] Alanine aminotransferase [En zymatic activity/volume] in Serum or PlasmaOrdered By: Glenn Abdullahi on 05-19-2024 ALT [Catalytic activity/Vol] Alanine aminotransferase [Enzymatic activity/volume] in Serum or Plasma [facility] Albumin [Mass/volume] in Ser um or Plasma by Bromocresol green (BCG) dye binding methoOrdered By: Glenn Abdullahi on 05-19-2024 Albumin BCG dye [Mass/Vol] Albumin [Mass/volume] in Serum or Plasma by Bromocresol green (BCG) dye binding metho 3.5-5.7 [facility] Alkaline phosphatase [Enzyma tic activity/volume] in Serum or PlasmaOrdered By: Glenn Abdullahi on 05-19-2024 ALP [Catalytic activity/Vol] Alkaline phosphatase [Enzymatic activity/volume] in Serum or Plasma 34-104 [facility] Amphetamine Screen Ql (U)Ord ered By: Glenn Abdullahi on 05-19-2024 Amphetamines Ql (U) Amphetamines screen Negativ e [facility] Appearance of UrineOrdered B y: Glenn Abdullahi on 05-19-2024 Appearance (U) Urine appearance Abnormal Clear [facility] Aspartate aminotransferase [ Enzymatic activity/volume] in Serum or PlasmaOrdered By: Glenn Abdullahi on 05-19-2024 AST [Catalytic activity/Vol] Aspartate aminotransferase [Enzymatic activity/volume] in Serum or Plasma Low 13-39 [facility] Bacteria [Presence] in Urine by AutomatedOrdered By: Glenn Abdullahi on 05-19-2024 Bacteria Auto Ql (U) Bacteria [Presence] in Urine by Automated None Seen [facility] Barbiturates [Presence] in U rine by Screen methodOrdered By: Glenn Abdullahi on 05-19-2024 Barbiturates Screen Ql (U) Barbiturates [Presence] in Urine by Screen method Negative [facility] Basophils Auto (Bld) [#/Vol] Ordered By: Glenn Abdullahi on 05-19-2024 Basophils (Bld) [#/Vol] Automated basophil count 0.0-0.2 [facility] Basophils/100 WBC Auto (Bld) Ordered By: Glenn Abdullahi on 05-19-2024 Basophils/100 WBC (Bld) Automated basophil % . [facility] Benzodiazepines Screen Ql (U )Ordered By: Glenn Abdullahi on 05-19-2024 Benzodiazepines Ql (U) Benzodiazepines [Presence] in Urine by Screen method Negative [facility] Benzoylecgonine [Presence] i n Urine by Screen methodOrdered By: Glenn Abdullahi on 05-19-2024 Benzoylecgonine Screen Ql (U) Benzoylecgonine [Presence] in Urine by Screen method Negative [facility] Bilirubin Test strip Ql (U)O rdered By: Glenn Abdullahi on 05-19-2024 Bilirubin Ql (U) Bilirubin.total [Pre sence] in Urine by Test strip Negative [facility] Bilirubin.direct [Mass/volum e] in Serum or PlasmaOrdered By: Glenn Abdullahi on 05-19-2024 Bilirubin.direct [Mass/Vol] Bilirubin.direct [Mass/volume] in Serum or Plasma Low 0.03-0.18 [facility] Comment on above: If the DBIL is less than 0.1, IBIL is not able to becalculated. Bilirubin.total [Mass/volume ] in Serum or PlasmaOrdered By: Glenn Abdullahi on 05-19-2024 Bilirubin [Mass/Vol] Bilirubin.total [Mass/volume] in Serum or Plasma 0.3-1.0 [facility] Calcium [Mass/volume] in Ser um or PlasmaOrdered By: Glenn Abdullahi on 05-19-2024 Calcium [Mass/Vol] Calcium [Mass/volume ] in Serum or Plasma 8.6-10.3 [facility] Cannabinoids [Presence] in U rine by Screen methodOrdered By: Glenn Abdullahi on 05-19-2024 Cannabinoids Screen Ql (U) Cannabinoids [Presence] in Urine by Screen method High Negative [facility] Comment on above: These are unconfirme [...] [Moles/volume] in Serum or Plasma Low 21.0-31.0 [facility] Chloride [Moles/volume] in S mayte or PlasmaOrdered By: Glenn Abdullahi on 02-28-2025 Chloride [Moles/Vol] Chloride [Moles/vol ume] in Serum or Plasma 98-107 [facility] Choriogonadotropin.beta subu nit [Units/volume] in Serum or PlasmaOrdered By: Glenn Abdullahi on 05-19-2024 HCG.beta subunit Qn Choriogonadotropin.b eta subunit [Units/volume] in Serum or Plasma [facility] Comment on above: Approximate Approxim ate hCG Gestational Age Range (mIU/ml) (weeks)0.2-1 5-50 1-2 50-500 2-3 100-5,000 3-4 500-10,000 4-5 1,000-50,000 5-6 10,000-100,000 6-8 15,000-200,000 8-12 10,000-100,000 Color Auto (U)Ordered By: oTro Abdullahi on 05-19-2024 Color (U) Color of Urine by Auto Abnormal Yellow Fi [facility] Complete Blood Count Auto Di ffon 05-19-2024 Basophils (Bld) [#/Vol] 0.1 10*3/uL Normal 0.0-0.2 [facility] Comment on above: Result Comment: PERF ORMED BY: [place] [address] PATHOLOGIST [employer] SARAH ANDREWS M.D. Performed By: #### H EPATIC, CBC, BMP, LIPASE #### [facility] [address] [place] [address] Basophils/100 WBC (Bld) 1.4 % Normal . [facility] Comment on above: Performed By: #### H EPATIC, CBC, BMP, LIPASE #### [facility] [address] [place] [address] [place] Eosinophils (Bld) [#/Vol] 0.0 10*3/uL Normal 0.0-0.45 [facility] Comment on above: Performed By: #### H EPATIC, CBC, BMP, LIPASE #### [facility] [address] [place] [address] [place] Eosinophils/100 WBC (Bld) 0.3 % Normal . [facility] Comment on above: Performed By: #### H EPATIC, CBC, BMP, LIPASE #### [address] Erythrocyte distribution width (RBC) [Ratio] 13.7 % Normal 11.9-15.3 [facility] Comment on above: Performed By: #### H EPATIC, CBC, BMP, LIPASE #### [address] Hematocrit (Bld) [Volume fraction] 33.1 % Low 34.0-46.4 [facility] Comment on above: Performed By: #### H EPATIC, CBC, BMP, LIPASE #### [address] Hemoglobin (Bld) [Mass/Vol] 11.6 g/dL Low 11.8-15.4 [facility] Comment on above: Performed By: #### H EPATIC, CBC, BMP, LIPASE #### [address] Lymphocytes (Bld) [#/Vol] 1.3 10*3/uL Normal 1.00-4.8 [facility] Comment on above: Performed By: #### H EPATIC, CBC, BMP, LIPASE #### [address] Lymphocytes/100 WBC (Bld) 14.1 % Normal . [facility] Comment on above: Performed By: #### H EPATIC, CBC, BMP, LIPASE #### [address] MCH (RBC) [Entitic mass] 30.0 pg Normal 24.7-34.3 [facility] Comment on above: Performed By: #### H EPATIC, CBC, BMP, LIPASE #### [address] MCV (RBC) [Entitic vol] 85.6 fL Normal 80-100 [facility] Comment on above: Performed By: #### H EPATIC, CBC, BMP, LIPASE #### [address] Mean Corpuscular HGB Conc 35.0 g/dL Normal 32.0-35.0 [facility] Comment on above: Performed By: #### H EPATIC, CBC, BMP, LIPASE #### [address] Monocytes (Bld) [#/Vol] 0.4 10*3/uL Normal 0.0-0.8 [facility] Comment on above: Performed By: #### H EPATIC, CBC, BMP, LIPASE #### [address] Monocytes/100 WBC (Bld) 15.92 % Normal 0.00-20.00 [facility] Comment on above: Performed By: #### H EPATIC, CBC, BMP, LIPASE #### [address] Monocytes/100 WBC (Bld) 4.2 % Normal . [facility] Comment on above: Performed By: #### H EPATIC, CBC, BMP, LIPASE #### [address] Neutrophils (Bld) [#/Vol] 7.1 10*3/uL Normal 1.8-7.7 [facility] Comment on above: Performed By: #### H EPATIC, CBC, BMP, LIPASE #### [address] Neutrophils/100 WBC (Bld) 80.0 % Normal . [facility] Comment on above: Performed By: #### H EPATIC, CBC, BMP, LIPASE #### [address] NRBC% 0.1 /100{WBC} Normal 0-0.5 [facility] Comment on above: Performed By: #### H EPATIC, CBC, BMP, LIPASE #### [address] Platelet mean volume (Bld) [Entitic vol] 11.0 fL High 6.3-10.7 [facility] Comment on above: Performed By: #### H EPATIC, CBC, BMP, LIPASE #### [address] Platelets (Bld) [#/Vol] 161 10*3/uL Normal 150-450 [facility] Comment on above: Performed By: #### H EPATIC, CBC, BMP, LIPASE #### [address] RBC (Bld) [#/Vol] 3.87 10*6/uL Normal 3.60-5.[address] [facility] Comment on above: Performed By: #### H EPATIC, CBC, BMP, LIPASE #### [address] WBC (Bld) [#/Vol] 8.9 10*3/uL Normal 3.8-11.6 [facility] Comment on above: Performed By: #### H EPATIC, CBC, BMP, LIPASE #### [address] Comprehensive Metabolic Pane blanquita 05-19-2024 Albumin [Mass/Vol] 3.8 g/dL Normal 3.5-5.7 [facility] Comment on above: Performed By: #### H EPATIC, CBC, BMP, LIPASE #### [address] Albumin/Globulin [Mass ratio] 1.3 {ratio} Normal [facility] Comment on above: Performed By: #### H EPATIC, CBC, BMP, LIPASE #### [address] ALP [Catalytic activity/Vol] 38 U/L Normal 34-104 [facility] Comment on above: Performed By: #### H EPATIC, CBC, BMP, LIPASE #### [address] ALT [Catalytic activity/Vol] 8 U/L Normal 7-52 [facility] Comment on above: Performed By: #### H EPATIC, CBC, BMP, LIPASE #### [address] [place] [address] [place] Anion gap [Moles/Vol] 13.4 mmol/L Normal 6.0-15.0 Th e [facility] Comment on above: Performed By: #### H EPATIC, CBC, BMP, LIPASE #### [address] AST [Catalytic activity/Vol] 10 U/L Low 13-39 [facility] Comment on above: Performed By: #### H EPATIC, CBC, BMP, LIPASE #### [address] Bilirubin [Mass/Vol] 0.3 mg/dL Normal 0.3-1.0 [facility] Comment on above: Performed By: #### H EPATIC, CBC, BMP, LIPASE #### [address] Calcium [Mass/Vol] 9.3 mg/dL Normal 8.6-10.3 [facility] Comment on above: Performed By: #### H EPATIC, CBC, BMP, LIPASE #### [address] Chloride [Moles/Vol] 107 mmol/L Normal 98-107 [facility] Comment on above: Performed By: #### H EPATIC, CBC, BMP, LIPASE #### [address] CO2 [Moles/Vol] 18.9 mmol/L Low 21.0-31.0 [facility] Comment on above: Performed By: #### H EPATIC, CBC, BMP, LIPASE #### [address] Creatinine [Mass/Vol] 0.53 mg/dL Low 0.60-1.20 [facility] Comment on above: Performed By: #### H EPATIC, CBC, BMP, LIPASE #### [address] Creatinine Clr Calc Pharmacy 143.53 Normal [facility] Comment on above: Performed By: #### H EPATIC, CBC, BMP, LIPASE #### [facility] [address] GFR/1.73 sq M.predicted MDRD (S/P/Bld) [Vol rate/Area] mL/min/{1.73_m2} Normal [facility] Comment on above: Performed By: #### H EPATIC, CBC, BMP, LIPASE #### [address] Globulin (S) [Mass/Vol] 2.9 g/dL Normal [facility] Comment on above: Performed By: #### H EPATIC, CBC, BMP, LIPASE #### [address] Glucose [Mass/Vol] 135 mg/dL High 70-100 [facility] Comment on above: Result Comment: [facility] Glucose Reference Range is dependent on time and content of last meal. Glucose of more than 200 mg/dL in a nonstressed, ambulatory subject supports the diagnosis of Diabetes Mellitus. ADA recommended reference range Performed By: #### H EPATIC, CBC, BMP, LIPASE #### [address] Potassium [Moles/Vol] 3.3 mmol/L Low 3.5-5.1 [facility] Comment on above: Performed By: #### H EPATIC, CBC, BMP, LIPASE #### [address] Protein [Mass/Vol] 6.7 g/dL Normal 6.4-8.9 [facility] Comment on above: Performed By: #### H EPATIC, CBC, BMP, LIPASE #### [address] Sodium [Moles/Vol] 136 mmol/L Normal 136-145 [facility] Comment on above: Performed By: #### H EPATIC, CBC, BMP, LIPASE #### [address] Urea nitrogen [Mass/Vol] 8 mg/dL Normal 7-25 [facility] Comment on above: Performed By: #### H EPATIC, CBC, BMP, LIPASE #### [address] Creatinine [Mass/volume] in Serum or PlasmaOrdered By: Glenn Abdullahi on 05-19-2024 Creatinine [Mass/Vol] Creatinine [Mass/v olume] in Serum or Plasma Low 0.60-1.20 [facility] Dipstick and Microscopicon 0 05-19-2024 Appearance (U) Turbid Critically abnormal Clear [facility] Comment on above: Order Comment: Name Collection Type:: Clean-Voided Midstream Performed By: #### H EPATIC, CBC, BMP, LIPASE #### [address] Bacteria,Urine None Seen Normal None Seen [facility] Comment on above: Order Comment: Name Collection Type:: Clean-Voided Midstream Performed By: #### H EPATIC, CBC, BMP, LIPASE #### [address] Bilirubin,Urine Negative Normal Negative [facility] Comment on above: Order Comment: Name Collection Type:: Clean-Voided Midstream Performed By: #### H EPATIC, CBC, BMP, LIPASE #### [address] Color (U) [place] Critically abnormal Yellow [facility] Comment on above: Order Comment: Name Collection Type:: Clean-Voided Midstream Performed By: #### H EPATIC, CBC, BMP, LIPASE #### [address] Glucose Ql (U) Normal Normal Normal [facility] Comment on above: Order Comment: Name Collection Type:: Clean-Voided Midstream Performed By: #### H EPATIC, CBC, BMP, LIPASE #### [address] Hyaline Casts,Urine None Normal 0-8 [facility] Comment on above: Order Comment: Name Collection Type:: Clean-Voided Midstream Performed By: #### H EPATIC, CBC, BMP, LIPASE #### [address] Ketones Ql (U) 2+ High Negative [facility] Comment on above: Order Comment: Name Collection Type:: Clean-Voided Midstream Performed By: #### H EPATIC, CBC, BMP, LIPASE #### [address] Leukocyte esterase Test strip Ql (U) Negative Normal Negative [facility] Comment on above: Order Comment: Name Collection Type:: Clean-Voided Midstream Performed By: #### H EPATIC, CBC, BMP, LIPASE #### [place] [address] [place] Mucus,Urine Rare Normal [facility] Comment on above: Order Comment: Name Collection Type:: Clean-Voided Midstream Result Comment: PERF ORMED BY: [place] [address] PATHOLOGIST [employer] SARAH ANDREWS M.D. Performed By: #### H EPATIC, CBC, BMP, LIPASE #### [address] Nitrite,Urine Negative Normal Negative [facility] Comment on above: Order Comment: Name Collection Type:: Clean-Voided Midstream Performed By: #### H EPATIC, CBC, BMP, LIPASE #### [place] [address] [place] Occult Blood,Urine Negative Normal Negative [facility] Comment on above: Order Comment: Name Collection Type:: Clean-Voided Midstream Result Comment: PERF ORMED BY: [place] [address] PATHOLOGIST [employer] SARAH ANDREWS M.D. Performed By: #### H EPATIC, CBC, BMP, LIPASE #### [place] [address] [place] pH (U) 8.0 [pH] Normal 5.0-9.0 [facility] Comment on above: Order Comment: Name Collection Type:: Clean-Voided Midstream Performed By: #### H EPATIC, CBC, BMP, LIPASE #### [address] Protein,Urine Negative Normal Negative [facility] Comment on above: Order Comment: Name Collection Type:: Clean-Voided Midstream Performed By: #### H EPATIC, CBC, BMP, LIPASE #### [address] RBC,Urine 3-4 Normal 0-4 [facility] Comment on above: Order Comment: Name Collection Type:: Clean-Voided Midstream Performed By: #### H EPATIC, CBC, BMP, LIPASE #### [address] Specificy [place],Urine 1.014 Normal 1.001-1.03 0 [facility] Comment on above: Order Comment: Name Collection Type:: Clean-Voided Midstream Performed By: #### H EPATIC, CBC, BMP, LIPASE #### [address] Squamous Epithelial Cell,Urine 1-2 Normal 0-2 [facility] Comment on above: Order Comment: Name Collection Type:: Clean-Voided Midstream Performed By: #### H EPATIC, CBC, BMP, LIPASE #### [address] Urobilinogen,Urine Normal Normal Normal [facility] Comment on above: Order Comment: Name Collection Type:: Clean-Voided Midstream Performed By: #### H EPATIC, CBC, BMP, LIPASE #### [address] WBC,Urine None Seen Normal 0-4 [facility] Comment on above: Order Comment: Name Collection Type:: Clean-Voided Midstream Performed By: #### H EPATIC, CBC, BMP, LIPASE #### [address] Drug Screen,Urineon 05-19-19 25 Amphetamine Screen,Urine Negative Normal Negative [facility] Comment on above: Performed By: #### H EPATIC, CBC, BMP, LIPASE #### [address] Barbiturate Screen,Urine Negative Normal Negative [facility] Comment on above: Performed By: #### H EPATIC, CBC, BMP, LIPASE #### [address] Benzodiazepines Screen,Urine Negative Normal Negative [facility] Comment on above: Performed By: #### H EPATIC, CBC, BMP, LIPASE #### [address] Cannabinoid Screen,Urine Positive High Negative [facility] Comment on above: Result Comment: Thes e are unconfirmed results and should not be used for legal purposes. Drug Cut-Off Concentration: AMPH 1000 ng/mL DENIS 200 ng/mL DIOR 200 ng/mL COCM 300 ng/mL OP 300 ng/mL PCP 25 ng/mL THC 20 ng/mL PERFORMED BY: [place] [address] PATHOLOGIST [employer] SARAH ANDREWS M.D. Performed By: #### H EPATIC, CBC, BMP, LIPASE #### [address] Cocaine Screen,Urine Negative Normal Negative [facility] Comment on above: Performed By: #### H EPATIC, CBC, BMP, LIPASE #### [address] Opiate Screen,Urine Negative Normal Negative The [facility] Comment on above: Performed By: #### H EPATIC, CBC, BMP, LIPASE #### [address] Phencyclidine Screen,Urine Negative Normal Negative [facility] Comment on above: Performed By: #### H EPATIC, CBC, BMP, LIPASE #### [address] Eosinophils Auto (Bld) [#/Vo l]Ordered By: Glenn Abdullahi on 05-19-2024 Eosinophils (Bld) [#/Vol] Automated eosinophil count 0.0-0.45 [facility] Eosinophils/100 WBC Auto (Bl d)Ordered By: Glenn Abdullahi on 05-19-2024 Eosinophils/100 WBC (Bld) Automated eosinophil % . [facility] Epithelial cells.squamous [# /area] in Urine sediment by Automated countOrdered By: Glenn Abdullahi on 05-19-2024 Epithelial cells.squamous Auto (Urine sed) [#/Area] Epithelial cells.squamous [#/area] in Urine sediment by Automated count 0-2 [facility] Erythrocyte distribution wid th Auto (RBC) [Ratio]Ordered By: Glenn Abdullahi on 05-19-2024 Erythrocyte distribution width (RBC) [Ratio] Erythrocyte distribution width [Ratio] by Automated count 11.9-15.3 [facility] Erythrocytes [#/area] in Uri ne sediment by Automated countOrdered By: Glenn Abdullahi on 05-19-2024 RBC Auto (Urine sed) [#/Area] Erythrocytes [#/area] in Urine sediment by Automated count 0-4 [facility] Globulin Calc (S) [Mass/Vol] Ordered By: Glenn Abdullahi on 05-19-2024 Globulin (S) [Mass/Vol] Serum globulin measurement by calculation (mass/volume) [facility] Glucose [Mass/volume] in Ser um or PlasmaOrdered By: Glenn Abdullahi on 05-19-2024 Glucose [Mass/Vol] Glucose [Mass/volume ] in Serum or Plasma High 70-100 [facility] Comment on above: ADA recommended refe rence rangeRandom Glucose Reference Range is dependent on time and content of last meal. Glucose of more than 200 mg/dL in a nonstressed, ambulatory subject supports the diagnosis of Diabetes Mellitus. Glucose [Mass/volume] in Uri ne by Test stripOrdered By: Glenn Abdullahi on 05-19-2024 Glucose Test strip (U) [Mass/Vol] Glucose [Mass/volume] in Urine by Test strip Normal [facility] HCG,Quantitativeon HCG,Quantitative 30451.00 m[iU]/mL Normal [facility] Comment on above: Result Comment: Appr oximate Approximate hCG Gestational Age Range (mIU/ml) (weeks) 0.2-1 5-50 1-2 50-500 2-3 100-5,000 3-4 500-10,000 4-5 1,000-50,000 5-6 10,000-100,000 6-8 15,000-200,000 8-12 10,000-100,000 PERFORMED BY: [place] [address] PATHOLOGIST [employer] SARAH ANDREWS M.D. Performed By: #### H EPATIC, CBC, BMP, LIPASE #### [address] Hematocrit Auto (Bld) [Volum e fraction]Ordered By: Glenn Abdullahi on 05-19-2024 Hematocrit (Bld) [Volume fraction] Hematocrit [Volume Fraction] of Blood by Automated count Low 34.0-46.4 [facility] Hemoglobin Test strip Ql (U) Ordered By: Glenn Abdullahi on 05-19-2024 Hemoglobin Ql (U) Hemoglobin [Presence ] in Urine by Test strip Negative [facility] Hemoglobin [Mass/volume] in BloodOrdered By: Glenn Abdullahi on 05-19-2024 Hemoglobin (Bld) [Mass/Vol] Hemoglobin [Mass/volume] in Blood Low 11.8-15.4 [facility] Hepatic Panelon 05-19-2024 Bilirubin,Indirect 0.3 mg/dL Normal [facility] Comment on above: Performed By: #### H EPATIC, CBC, BMP, LIPASE #### [address] Bilirubin.indirect [Mass/Vol] 0.00 mg/dL Low 0.03-0.18 [facility] Comment on above: Result Comment: If t he DBIL is less than 0.1, IBIL is not able to be calculated. Performed By: #### H EPATIC, CBC, BMP, LIPASE #### [address] Hyaline casts [#/area] in Ur ine sediment by Automated countOrdered By: Glenn Abdullahi on 05-19-2024 Hyaline casts Auto (Urine sed) [#/Area] Hyaline casts [#/area] in Urine sediment by Automated count 0-8 [facility] Ketones Test strip Ql (U)Ord ered By: Glenn Abdullahi on 05-19-2024 Ketones Ql (U) Ketones [Presence] i n Urine by Test strip High Negative [facility] Leukocyte esterase [Presence ] in Urine by Test stripOrdered By: Glenn Abdullahi on 05-19-2024 Leukocyte esterase Test strip Ql (U) Leukocyte esterase [Presence] in Urine by Test strip Negative [facility] Leukocytes [#/area] in Urine sediment by Automated countOrdered By: Glenn Abdullahi on 05-19-2024 WBC Auto (Urine sed) [#/Area] Leukocytes [#/area] in Urine sediment by Automated count 0-4 [facility] Leukocytes [#/volume] correc rossy for nucleated erythrocytes in Blood by Automated counOrdered By: Glenn Abdullahi on 05-19-2024 WBC corrected for nucl RBC Auto (Bld) [#/Vol] Leukocytes [#/volume] corrected for nucleated erythrocytes in Blood by Automated coun 3.8-11.6 [facility] Lipaseon 05-19-2024 Lipase [Catalytic activity/Vol] 20.0 U/L Normal 11.0-82.0 [facility] Comment on above: Performed By: #### H EPATIC, CBC, BMP, LIPASE #### [address] Lipase [Enzymatic activity/v olume] in Serum or PlasmaOrdered By: Glenn Abdullahi on 05-19-2024 Lipase [Catalytic activity/Vol] Lipase [Enzymatic activity/volume] in Serum or Plasma 11.0-82.0 [facility] Lymphocytes Auto (Bld) [#/Vo l]Ordered By: Glenn Abdullahi on 05-19-2024 Lymphocytes (Bld) [#/Vol] Lymphocytes [#/volume] in Blood by Automated count 1.00-4.8 [facility] Lymphocytes/100 WBC Auto (Bl d)Ordered By: Glenn Abdullahi on 05-19-2024 Lymphocytes/100 WBC (Bld) Lymphocytes/100 leukocytes in Blood by Automated count . [facility] MCH Auto (RBC) [Entitic mass ]Ordered By: Glenn Abdullahi on 05-19-2024 MCH (RBC) [Entitic mass] MCH [Entitic mass] by Automated count 24.7-34.3 [facility] MCHC Auto (RBC) [Mass/Vol]Or dered By: Glenn Abdullahi on 05-19-2024 MCHC (RBC) [Mass/Vol] MCHC [Mass/volume] by Automated count 32.0-35.0 [facility] MCV Auto (RBC) [Entitic vol] Ordered By: Glenn Abdullahi on 05-19-2024 MCV (RBC) [Entitic vol] MCV [Entitic volume] by Automated count 80-100 [facility] Magnesiumon 05-19-2024 Magnesium [Mass/Vol] 1.4 mg/dL Low 1.9-2.7 [facility] Comment on above: Performed By: #### H EPATIC, CBC, BMP, LIPASE #### [address] Magnesium [Mass/volume] in S mayte or PlasmaOrdered By: Glenn Abdullahi on 05-19-2024 Magnesium [Mass/Vol] Magnesium [Mass/vol ume] in Serum or Plasma Low 1.9-2.7 [facility] Monocyte distribution width [Entitic volume] in Blood by AutomatedOrdered By: Glenn Abdullahi on 05-19-2024 Monocyte distribution width Auto (Bld) [Entitic vol] Monocyte distribution width [Entitic volume] in Blood by Automated 0.00-20.00 [facility] Monocytes Auto (Bld) [#/Vol] Ordered By: Glenn Abdullahi on 05-19-2024 Monocytes (Bld) [#/Vol] Automated blood monocyte count 0.0-0.8 [facility] Monocytes/100 WBC Auto (Bld) Ordered By: Glenn Abdullahi on 05-19-2024 Monocytes/100 WBC (Bld) Automated monocyte % . [facility] Mucus [Presence] in Urine by AutomatedOrdered By: lGenn Abdullahi on 05-19-2024 Mucus Auto Ql (U) Mucus [Presence] in Urine by Automated [facility] Neutrophils Auto (Bld) [#/Vo l]Ordered By: Glenn Abdullahi on 05-19-2024 Neutrophils (Bld) [#/Vol] Neutrophils [#/volume] in Blood by Automated count 1.8-7.7 [facility] Neutrophils/100 WBC Auto (Bl d)Ordered By: Glenn Abdullahi on 05-19-2024 Neutrophils/100 WBC (Bld) Automated neutrophil % . [facility] Nitrite Test strip Ql (U)Ord ered By: Glenn Abdullahi on 05-19-2024 Nitrite Ql (U) Nitrite [Presence] i n Urine by Test strip Negative [facility] No Panel InformationOrdered By: Glenn Abdullahi on 05-19-2024 Estimated GFR (CKD-EPI) > 60.0 mL/Min [facility] Creatinine Clearance (Chem 143.53 [facility] Nucleated erythrocytes [Pres ence] in Blood by Automated countOrdered By: Glenn Abdullahi on 05-19-2024 Nucleated RBC Auto Ql (Bld) Nucleated erythrocytes [Presence] in Blood by Automated count 0-0.5 [facility] Opiates [Presence] in Urine by Screen methodOrdered By: Glenn Abdullahi on 05-19-2024 Opiates Screen Ql (U) Opiates [Presence] in Urine by Screen method Negative [facility] Phencyclidine Screen Ql (U)O rdered By: Glenn Abdullahi on 05-19-2024 Phencyclidine Ql (U) Phencyclidine [Pres ence] in Urine by Screen method Negative [facility] Platelet mean volume Auto (B ld) [Entitic vol]Ordered By: Glenn Abdullahi on 05-19-2024 Platelet mean volume (Bld) [Entitic vol] Platelet mean volume [Entitic volume] in Blood by Automated count High 6.3-10.7 [facility] Platelets Auto (Bld) [#/Vol] Ordered By: Glenn Abdullahi on 05-19-2024 Platelets (Bld) [#/Vol] Platelets [#/volume] in Blood by Automated count 150-450 [facility] Potassium [Moles/volume] in Serum or PlasmaOrdered By: Glenn Abdullahi on 05-19-2024 Potassium [Moles/Vol] Potassium [Moles/v olume] in Serum or Plasma Low 3.5-5.1 [facility] Protein Test strip (U) [Mass /Vol]Ordered By: Glenn Abdullahi on 05-19-2024 Protein (U) [Mass/Vol] Protein [Mass/volume] in Urine by Test strip Negative [facility] Protein [Mass/volume] in Ser um or PlasmaOrdered By: Glenn Abdullahi on 05-19-2024 Protein [Mass/Vol] Protein [Mass/volume ] in Serum or Plasma 6.4-8.9 [facility] RBC Auto (Bld) [#/Vol]Ordere d By: Glenn Abdullahi on 05-19-2024 RBC (Bld) [#/Vol] Erythrocytes [#/volu me] in Blood by Automated count 3.60-5.00 [facility] Serum or plasma albumin/glob ulin mass ratioOrdered By: Glenn Abdullahi 05-19-2024 Albumin/Globulin [Mass ratio] Serum or plasma albumin/globulin mass ratio [facility] Serum or plasma anion gap de terminationOrdered By: Glenn Abdullahi 05-19-2024 Anion gap [Moles/Vol] Serum or plasma an ion gap determination 6.0-15.0 [facility] Serum or plasma non-glucuron idated bilirubin measurement (mass/volume)Ordered By: Glenn Abdullahi 05-19-2024 Bilirubin.indirect [Mass/Vol] Serum or plasma non-glucuronidated bilirubin measurement (mass/volume) [facility] Sodium [Moles/volume] in Ser um or PlasmaOrdered By: Glenn Abdullahi 05-19-2024 Sodium [Moles/Vol] Sodium [Moles/volume ] in Serum or Plasma 136-145 [facility] Specific gravity Test strip (U) [Rel density]Ordered By: Glenn Abdullahi 05-19-2024 Specific gravity (U) [Rel density] Specific gravity of Urine by Test strip 1.001-1.03 0 [facility] Urea nitrogen [Mass/volume] in Serum or PlasmaOrdered By: Glenn Abdullahi 05-19-2024 Urea nitrogen [Mass/Vol] Urea nitrogen [Mass/volume] in Serum or Plasma 7-25 [facility] Urobilinogen Test strip (U) [Mass/Vol]Ordered By: Glenn Abdullahi on 05-19-2024 Urobilinogen (U) [Mass/Vol] Urobilinogen [Mass/volume] in Urine by Test strip Normal [facility] WBC Auto (Bld) [#/Vol]Ordere d By: Glenn Abdullahi on 05-19-2024 WBC (Bld) [#/Vol] Leukocytes [#/volume ] in Blood by Automated count 3.8-11.6 [facility] pH Test strip (U)Ordered By: Glenn Abdullahi on 05-19-2024 pH (U) pH of Urine by Test strip 5.0-9.0 [facility] Alanine aminotransferase [En zymatic activity/volume] in Serum or PlasmaOrdered By: Glenn Abdullahi on 05-16-2024 ALT [Catalytic activity/Vol] Alanine aminotransferase [Enzymatic activity/volume] in Serum or Plasma 7-52 [facility] Albumin [Mass/volume] in Ser um or Plasma by Bromocresol green (BCG) dye binding methoOrdered By: Glenn Abdullahi on 05-16-2024 Albumin BCG dye [Mass/Vol] Albumin [Mass/volume] in Serum or Plasma by Bromocresol green (BCG) dye binding metho 3.5-5.7 [facility] Alkaline phosphatase [Enzyma tic activity/volume] in Serum or PlasmaOrdered By: Glenn Abdullahi on 05-16-2024 ALP [Catalytic activity/Vol] Alkaline phosphatase [Enzymatic activity/volume] in Serum or Plasma 34-104 [facility] Appearance of UrineOrdered B y: Glenn Abdullahi on 05-16-2024 Appearance (U) Urine appearance Clear [facility] Aspartate aminotransferase [ Enzymatic activity/volume] in Serum or PlasmaOrdered By: Glenn Abdullahi on 05-16-2024 AST [Catalytic activity/Vol] Aspartate aminotransferase [Enzymatic activity/volume] in Serum or Plasma 13-39 [facility] Basophils Auto (Bld) [#/Vol] Ordered By: Glenn Abdullahi on 05-16-2024 Basophils (Bld) [#/Vol] Automated basophil count 0.0-0.2 [facility] Basophils/100 WBC Auto (Bld) Ordered By: Glenn Abdullahi on 05-16-2024 Basophils/100 WBC (Bld) Automated basophil % . [facility] Bilirubin Test strip Ql (U)O rdered By: Glenn Abdullahi on 05-16-2024 Bilirubin Ql (U) Bilirubin.total [Pre sence] in Urine by Test strip Negative [facility] Bilirubin.direct [Mass/volum e] in Serum or PlasmaOrdered By: Glenn Abdullahi on 05-16-2024 Bilirubin.direct [Mass/Vol] Bilirubin.direct [Mass/volume] in Serum or Plasma Low 0.03-0.18 [facility] Comment on above: If the DBIL is less than 0.1, IBIL is not able to becalculated. Bilirubin.total [Mass/volume ] in Serum or PlasmaOrdered By: Glenn Abdullahi on 05-16-2024 Bilirubin [Mass/Vol] Bilirubin.total [Mass/volume] in Serum or Plasma 0.3-1.0 [facility] Calcium [Mass/volume] in Ser um or PlasmaOrdered By: Glenn Abdullahi on 05-16-2024 Calcium [Mass/Vol] Calcium [Mass/volume ] in Serum or Plasma 8.6-10.3 [facility] Carbon dioxide, total [Moles /volume] in Serum or PlasmaOrdered By: Glenn Abdullahi 05-16-2024 CO2 [Moles/Vol] Carbon dioxide, tota l [Moles/volume] in Serum or Plasma Low 21.0-31.0 [facility] Chloride [Moles/volume] in S mayte or PlasmaOrdered By: Glenn Abdullahi 05-16-2024 Chloride [Moles/Vol] Chloride [Moles/vol ume] in Serum or Plasma 98-107 [facility] Choriogonadotropin.beta subu nit [Units/volume] in Serum or PlasmaOrdered By: Glenn Abdullahi on 05-16-2024 HCG.beta subunit Qn Choriogonadotropin.b eta subunit [Units/volume] in Serum or Plasma [facility] Comment on above: Approximate Approxim ate hCG Gestational Age Range (mIU/ml) (weeks)0.2-1 5-50 1-2 50-500 2-3 100-5,000 3-4 500-10,000 4-5 1,000-50,000 5-6 10,000-100,000 6-8 15,000-200,000 8-12 10,000-100,000 Color Auto (U)Ordered By: Toro Abdullahi on 05-16-2024 Color (U) Color of Urine by Auto Yellow [facility] Complete Blood Count Auto Di ffon 05-16-2024 Basophils (Bld) [#/Vol] 0.0 10*3/uL Normal 0.0-0.2 [facility] Comment on above: Result Comment: PERF ORMED BY: [place] [address] PATHOLOGIST [employer] SARAH ANDREWS M.D. Performed By: #### H EPATIC, CBC, BMP, LIPASE #### [address] Basophils/100 WBC (Bld) 0.0 % Normal . [facility] Comment on above: Performed By: #### H EPATIC, CBC, BMP, LIPASE #### [address] Eosinophils (Bld) [#/Vol] 0.0 10*3/uL Normal 0.0-0.45 [facility] Comment on above: Performed By: #### H EPATIC, CBC, BMP, LIPASE #### [address] Eosinophils/100 WBC (Bld) 0.0 % Normal . [facility] Comment on above: Performed By: #### H EPATIC, CBC, BMP, LIPASE #### [address] Erythrocyte distribution width (RBC) [Ratio] 13.7 % Normal 11.9-15.3 [facility] Comment on above: Performed By: #### H EPATIC, CBC, BMP, LIPASE #### [address] Hematocrit (Bld) [Volume fraction] 33.8 % Low 34.0-46.4 [facility] Comment on above: Performed By: #### H EPATIC, CBC, BMP, LIPASE #### [address] Hemoglobin (Bld) [Mass/Vol] 11.7 g/dL Low 11.8-15.4 [facility] Comment on above: Performed By: #### H EPATIC, CBC, BMP, LIPASE #### [address] Lymphocytes (Bld) [#/Vol] 0.6 10*3/uL Low 1.00-4.8 [facility] Comment on above: Performed By: #### H EPATIC, CBC, BMP, LIPASE #### [address] Lymphocytes/100 WBC (Bld) 4.6 % Normal . [facility] Comment on above: Performed By: #### H EPATIC, CBC, BMP, LIPASE #### [address] MCH (RBC) [Entitic mass] 29.7 pg Normal 24.7-34.3 [facility] Comment on above: Performed By: #### H EPATIC, CBC, BMP, LIPASE #### [address] MCV (RBC) [Entitic vol] 86.3 fL Normal 80-100 [facility] Comment on above: Performed By: #### H EPATIC, CBC, BMP, LIPASE #### [address] Mean Corpuscular HGB Conc 34.5 g/dL Normal 32.0-35.0 [facility] Comment on above: Performed By: #### H EPATIC, CBC, BMP, LIPASE #### [address] Monocyte Distribution Width Not performed Normal 0.00-20.00 [facility] Comment on above: Result Comment: Unab le to calculate MDW because the Absolute Monocyte Count is <0.8. Performed By: #### H EPATIC, CBC, BMP, LIPASE #### [address] Monocytes (Bld) [#/Vol] 0.2 10*3/uL Normal 0.0-0.8 [facility] Comment on above: Performed By: #### H EPATIC, CBC, BMP, LIPASE #### [address] Monocytes/100 WBC (Bld) 1.2 % Normal . [facility] Comment on above: Performed By: #### H EPATIC, CBC, BMP, LIPASE #### [address] Neutrophils (Bld) [#/Vol] 13.0 10*3/uL High 1.8-7.7 [facility] Comment on above: Performed By: #### H EPATIC, CBC, BMP, LIPASE #### [address] Neutrophils/100 WBC (Bld) 94.2 % Normal . [facility] Comment on above: Performed By: #### H EPATIC, CBC, BMP, LIPASE #### [address] NRBC% 0.0 /100{WBC} Normal 0-0.5 [facility] Comment on above: Performed By: #### H EPATIC, CBC, BMP, LIPASE #### [address] Platelet mean volume (Bld) [Entitic vol] 11.1 fL High 6.3-10.7 [facility] Comment on above: Performed By: #### H EPATIC, CBC, BMP, LIPASE #### [place] [address] [place] Platelets (Bld) [#/Vol] 186 10*3/uL Normal 150-450 [facility] Comment on above: Performed By: #### H EPATIC, CBC, BMP, LIPASE #### [address] RBC (Bld) [#/Vol] 3.92 10*6/uL Normal 3.60-5.[address] [facility] Comment on above: Performed By: #### H EPATIC, CBC, BMP, LIPASE #### [address] WBC (Bld) [#/Vol] 13.8 10*3/uL High 3.8-11.[address] [facility] Comment on above: Performed By: #### H EPATIC, CBC, BMP, LIPASE #### [address] Comprehensive Metabolic Pane blanquita 05-16-2024 Albumin [Mass/Vol] 4.2 g/dL Normal 3.5-5.7 [facility] Comment on above: Performed By: #### H EPATIC, CBC, BMP, LIPASE #### [address] Albumin/Globulin [Mass ratio] 1.2 {ratio} Normal [facility] Comment on above: Performed By: #### H EPATIC, CBC, BMP, LIPASE #### [address] ALP [Catalytic activity/Vol] 46 U/L Normal 34-104 [facility] Comment on above: Performed By: #### H EPATIC, CBC, BMP, LIPASE #### [address] ALT [Catalytic activity/Vol] 9 U/L Normal 7-52 [facility] Comment on above: Performed By: #### H EPATIC, CBC, BMP, LIPASE #### [address] Anion gap [Moles/Vol] 17.4 mmol/L High 6.0-15.0 [facility] Comment on above: Performed By: #### H EPATIC, CBC, BMP, LIPASE #### [address] AST [Catalytic activity/Vol] 17 U/L Normal 13-39 [facility] Comment on above: Performed By: #### H EPATIC, CBC, BMP, LIPASE #### [address] Bilirubin [Mass/Vol] 0.4 mg/dL Normal 0.3-1.0 [facility] Comment on above: Performed By: #### H EPATIC, CBC, BMP, LIPASE #### [address] Calcium [Mass/Vol] 9.4 mg/dL Normal 8.6-10.3 [facility] Comment on above: Performed By: #### H EPATIC, CBC, BMP, LIPASE #### [address] Chloride [Moles/Vol] 106 mmol/L Normal 98-107 [facility] Comment on above: Performed By: #### H EPATIC, CBC, BMP, LIPASE #### [address] CO2 [Moles/Vol] 16.0 mmol/L Low 21.0-31.0 [facility] Comment on above: Performed By: #### H EPATIC, CBC, BMP, LIPASE #### [address] Creatinine [Mass/Vol] 0.52 mg/dL Low 0.60-1.20 [facility] Comment on above: Performed By: #### H EPATIC, CBC, BMP, LIPASE #### [address] Creatinine Clr Calc Pharmacy 146.48 Normal [facility] Comment on above: Performed By: #### H EPATIC, CBC, BMP, LIPASE #### [address] GFR/1.73 sq M.predicted MDRD (S/P/Bld) [Vol rate/Area] mL/min/{1.73_m2} Normal [facility] Comment on above: Performed By: #### H EPATIC, CBC, BMP, LIPASE #### [address] Globulin (S) [Mass/Vol] 3.4 g/dL Normal [facility] Comment on above: Performed By: #### H EPATIC, CBC, BMP, LIPASE #### [facility] [address] Glucose [Mass/Vol] 160 mg/dL High 70-100 [facility] Comment on above: Result Comment: [place] Glucose Reference Range is dependent on time and content of last meal. Glucose of more than 200 mg/dL in a nonstressed, ambulatory subject supports the diagnosis of Diabetes Mellitus. ADA recommended reference range Performed By: #### H EPATIC, CBC, BMP, LIPASE #### [address] Potassium [Moles/Vol] 3.4 mmol/L Low 3.5-5.1 [facility] Comment on above: Result Comment: Hemo lysis is present at a level that could interfere with the result. Contact lab if redraw is required Performed By: #### H EPATIC, CBC, BMP, LIPASE #### [address] Protein [Mass/Vol] 7.6 g/dL Normal 6.4-8.9 [facility] Comment on above: Performed By: #### H EPATIC, CBC, BMP, LIPASE #### [address] Sodium [Moles/Vol] 136 mmol/L Normal 136-145 [facility] Comment on above: Performed By: #### H EPATIC, CBC, BMP, LIPASE #### [place] [address] [place] Urea nitrogen [Mass/Vol] 9 mg/dL Normal 7-25 [facility] Comment on above: Performed By: #### H EPATIC, CBC, BMP, LIPASE #### [place] [address] [place] Creatinine [Mass/volume] in Serum or PlasmaOrdered By: Glenn Abdullahi on 05-16-2024 Creatinine [Mass/Vol] Creatinine [Mass/v olume] in Serum or Plasma Low 0.60-1.20 [facility] Eosinophils Auto (Bld) [#/Vo l]Ordered By: Glenn Abdullahi on 05-16-2024 Eosinophils (Bld) [#/Vol] Automated eosinophil count 0.0-0.45 [facility] Eosinophils/100 WBC Auto (Bl d)Ordered By: Glenn Abdullahi on 05-16-2024 Eosinophils/100 WBC (Bld) Automated eosinophil % . [facility] Erythrocyte distribution wid th Auto (RBC) [Ratio]Ordered By: Glenn Abdullahi on 05-16-2024 Erythrocyte distribution width (RBC) [Ratio] Erythrocyte distribution width [Ratio] by Automated count 11.9-15.3 [facility] Globulin Calc (S) [Mass/Vol] Ordered By: Glenn Abdullahi on 05-16-2024 Globulin (S) [Mass/Vol] Serum globulin measurement by calculation (mass/volume) [facility] Glucose [Mass/volume] in Ser um or PlasmaOrdered By: Glenn Abdullahi on 05-16-2024 Glucose [Mass/Vol] Glucose [Mass/volume ] in Serum or Plasma High 70-100 [facility] Comment on above: ADA recommended refe [...] in Urine by Test strip High Normal [facility] HCG,Quantitativeon HCG,Quantitative 14326.00 m[iU]/mL Normal T [facility] Comment on above: Result Comment: Appr oximate Approximate hCG Gestational Age Range (mIU/ml) (weeks) 0.2-1 5-50 1-2 50-500 2-3 100-5,000 3-4 500-10,000 4-5 1,000-50,000 5-6 10,000-100,000 6-8 15,000-200,000 8-12 10,000-100,000 PERFORMED BY: [facility] [place] [address] PATHOLOGIST [employer] SARAH ANDREWS M.D. Performed By: #### H EPATIC, CBC, BMP, LIPASE #### [facility] [address] Hematocrit Auto (Bld) [Volum e fraction]Ordered By: Glenn Abdullahi on 05-16-2024 Hematocrit (Bld) [Volume fraction] Hematocrit [Volume Fraction] of Blood by Automated count Low 34.0-46.4 [facility] Hemoglobin Test strip Ql (U) Ordered By: Glenn Abdullahi on 05-16-2024 Hemoglobin Ql (U) Hemoglobin [Presence ] in Urine by Test strip Negative [facility] Hemoglobin [Mass/volume] in BloodOrdered By: Glenn Abdullahi on 05-16-2024 Hemoglobin (Bld) [Mass/Vol] Hemoglobin [Mass/volume] in Blood Low 11.8-15.4 [facility] Hepatic Panelon 05-16-2024 Bilirubin,Indirect 0.4 mg/dL Normal [facility] Comment on above: Performed By: #### H EPATIC, CBC, BMP, LIPASE #### [address] Bilirubin.indirect [Mass/Vol] 0.00 mg/dL Low 0.03-0.18 [facility] Comment on above: Result Comment: If t he DBIL is less than 0.1, IBIL is not able to be calculated. Performed By: #### H EPATIC, CBC, BMP, LIPASE #### [address] Ketones Test strip Ql (U)Ord ered By: Glenn Abdullahi on 05-16-2024 Ketones Ql (U) Ketones [Presence] i n Urine by Test strip High Negative [facility] Leukocyte esterase [Presence ] in Urine by Test stripOrdered By: Glenn Abdullahi on 05-16-2024 Leukocyte esterase Test strip Ql (U) Leukocyte esterase [Presence] in Urine by Test strip Negative [facility] Leukocytes [#/volume] correc rossy for nucleated erythrocytes in Blood by Automated counOrdered By: Glenn Abdullahi on 05-16-2024 WBC corrected for nucl RBC Auto (Bld) [#/Vol] Leukocytes [#/volume] corrected for nucleated erythrocytes in Blood by Automated coun High 3.8-11.6 [facility] Lipaseon 05-16-2024 Lipase [Catalytic activity/Vol] 25.0 U/L Normal 11.0-82.0 [facility] Comment on above: Performed By: #### H EPATIC, CBC, BMP, LIPASE #### [facility] [address] Lipase [Enzymatic activity/v olume] in Serum or PlasmaOrdered By: Glenn Abdullahi on 05-16-2024 Lipase [Catalytic activity/Vol] Lipase [Enzymatic activity/volume] in Serum or Plasma 11.0-82.0 [facility] Lymphocytes Auto (Bld) [#/Vo l]Ordered By: Glenn Abdullahi on 05-16-2024 Lymphocytes (Bld) [#/Vol] Lymphocytes [#/volume] in Blood by Automated count Low 1.00-4.8 [facility] Lymphocytes/100 WBC Auto (Bl d)Ordered By: Glenn Abdullahi on 05-16-2024 Lymphocytes/100 WBC (Bld) Lymphocytes/100 leukocytes in Blood by Automated count . [facility] MCH Auto (RBC) [Entitic mass ]Ordered By: Glenn Abdullahi on 05-16-2024 MCH (RBC) [Entitic mass] MCH [Entitic mass] by Automated count 24.7-34.3 [facility] MCHC Auto (RBC) [Mass/Vol]Or dered By: Glenn Abdullahi on 05-16-2024 MCHC (RBC) [Mass/Vol] MCHC [Mass/volume] by Automated count 32.0-35.0 [facility] MCV Auto (RBC) [Entitic vol] Ordered By: Glenn Abdullahi on 05-16-2024 MCV (RBC) [Entitic vol] MCV [Entitic volume] by Automated count 80-100 [facility] Monocyte distribution width [Entitic volume] in Blood by AutomatedOrdered By: Glenn Abdullahi on 05-16-2024 Monocyte distribution width Auto (Bld) [Entitic vol] Monocyte distribution width [Entitic volume] in Blood by Automated 0.00-20.00 [facility] Comment on above: Unable to calculate MDW because the Absolute Monocyte Count is <0.8. Monocytes Auto (Bld) [#/Vol] Ordered By: Glenn Abdullahi on 05-16-2024 Monocytes (Bld) [#/Vol] Automated blood monocyte count 0.0-0.8 [facility] Monocytes/100 WBC Auto (Bld) Ordered By: Glenn Abdullahi on 05-16-2024 Monocytes/100 WBC (Bld) Automated monocyte % . [facility] Neutrophils Auto (Bld) [#/Vo l]Ordered By: Glenn Abdullahi on 05-16-2024 Neutrophils (Bld) [#/Vol] Neutrophils [#/volume] in Blood by Automated count High 1.8-7.7 [facility] Neutrophils/100 WBC Auto (Bl d)Ordered By: Glenn Abdullahi on 05-16-2024 Neutrophils/100 WBC (Bld) Automated neutrophil % . [facility] Nitrite Test strip Ql (U)Ord ered By: Glenn Abdullahi on 05-16-2024 Nitrite Ql (U) Nitrite [Presence] i n Urine by Test strip Negative [facility] No Panel InformationOrdered By: Glenn Abdullahi on 05-16-2024 Estimated GFR (CKD-EPI) > 60.0 mL/Min [facility] Creatinine Clearance (Chem 146.48 [facility] Nucleated erythrocytes [Pres ence] in Blood by Automated countOrdered By: Glenn Abdullahi on 05-16-2024 Nucleated RBC Auto Ql (Bld) Nucleated erythrocytes [Presence] in Blood by Automated count 0-0.5 [facility] Platelet mean volume Auto (B ld) [Entitic vol]Ordered By: Glenn Abdullahi on 05-16-2024 Platelet mean volume (Bld) [Entitic vol] Platelet mean volume [Entitic volume] in Blood by Automated count High 6.3-10.7 [facility] Platelets Auto (Bld) [#/Vol] Ordered By: Glenn Abdullahi on 05-16-2024 Platelets (Bld) [#/Vol] Platelets [#/volume] in Blood by Automated count 150-450 [facility] Potassium [Moles/volume] in Serum or PlasmaOrdered By: Glenn Abdullahi on 05-16-2024 Potassium [Moles/Vol] Potassium [Moles/v olume] in Serum or Plasma Low 3.5-5.1 [facility] Comment on above: Hemolysis is present at a level that could interfere with the result.Contact lab if redraw is required Protein Test strip (U) [Mass /Vol]Ordered By: Glenn Abdullahi on 05-16-2024 Protein (U) [Mass/Vol] Protein [Mass/volume] in Urine by Test strip Negative [facility] Protein [Mass/volume] in Ser um or PlasmaOrdered By: Glenn Abdullahi on 05-16-2024 Protein [Mass/Vol] Protein [Mass/volume ] in Serum or Plasma 6.4-8.9 [facility] RBC Auto (Bld) [#/Vol]Ordere d By: Glenn Abdullahi on 05-16-2024 RBC (Bld) [#/Vol] Erythrocytes [#/volu me] in Blood by Automated count 3.60-5.00 [facility] Serum or plasma albumin/glob ulin mass ratioOrdered By: Glenn Abdullahi on 05-16-2024 Albumin/Globulin [Mass ratio] Serum or plasma albumin/globulin mass ratio [facility] Serum or plasma anion gap de terminationOrdered By: Glenn Abdullahi 05-16-2024 Anion gap [Moles/Vol] Serum or plasma an ion gap determination High 6.0-15.0 [facility] Serum or plasma non-glucuron idated bilirubin measurement (mass/volume)Ordered By: Glenn Abdullahi 05-16-2024 Bilirubin.indirect [Mass/Vol] Serum or plasma non-glucuronidated bilirubin measurement (mass/volume) [facility] Sodium [Moles/volume] in Ser um or PlasmaOrdered By: Glenn Abdullahi 05-16-2024 Sodium [Moles/Vol] Sodium [Moles/volume ] in Serum or Plasma 136-145 [facility] Specific gravity Test strip (U) [Rel density]Ordered By: Glenn Abdullahi 05-16-2024 Specific gravity (U) [Rel density] Specific gravity of Urine by Test strip 1.001-1.03 0 [facility] Urea nitrogen [Mass/volume] in Serum or PlasmaOrdered By: Glenn Abdullahi 05-16-2024 Urea nitrogen [Mass/Vol] Urea nitrogen [Mass/volume] in Serum or Plasma 10-13 [facility] Urinalysison 05-16-2024 Appearance (U) Clear Normal Clear [facility] Comment on above: Order Comment: Name Collection Type:: Clean-Voided Midstream Performed By: #### U A #### [facility] [address] [place] [address] [place] Bilirubin,Urine Negative Normal Negative [facility] Comment on above: Order Comment: Name Collection Type:: Clean-Voided Midstream Performed By: #### U A #### [facility] [address] [place] [address] [place] Color (U) Light-Yellow Normal Yellow [facility] Comment on above: Order Comment: Name Collection Type:: Clean-Voided Midstream Performed By: #### U A #### [place] [address] [place] Glucose Ql (U) 500 mg/dL High Normal [facility] Comment on above: Order Comment: Name Collection Type:: Clean-Voided Midstream Performed By: #### U A #### [place] [id number] [place] Ketones Ql (U) 4+ High Negative [facility] Comment on above: Order Comment: Name Collection Type:: Clean-Voided Midstream Performed By: #### U A #### [place] [id number] [place] Leukocyte esterase Test strip Ql (U) Negative Normal Negative [facility] Comment on above: Order Comment: Name Collection Type:: Clean-Voided Midstream Performed By: #### U A #### [facility] [address] [place] [id number] [place] Nitrite,Urine Negative Normal Negative [facility] Comment on above: Order Comment: Name Collection Type:: Clean-Voided Midstream Performed By: #### U A #### [address] [address] [place] Occult Blood,Urine Negative Normal Negative [facility] Comment on above: Order Comment: Name Collection Type:: Clean-Voided Midstream Result Comment: PERF ORMED BY: [place] [address] PATHOLOGIST [employer] SARAH ANDREWS M.D. Performed By: #### U A #### [address] pH (U) 8.0 [pH] Normal 5.0-9.0 [facility] Comment on above: Order Comment: Name Collection Type:: Clean-Voided Midstream Performed By: #### U A #### [address] Protein,Urine Negative Normal Negative [facility] Comment on above: Order Comment: Name Collection Type:: Clean-Voided Midstream Performed By: #### U A #### [address] Specificy [place],Urine 1.020 Normal 1.001-1.03 0 [facility] Comment on above: Order Comment: Name Collection Type:: Clean-Voided Midstream Performed By: #### U A #### [address] Urobilinogen,Urine Normal Normal Normal [facility] Comment on above: Order Comment: Name Collection Type:: Clean-Voided Midstream Performed By: #### U A #### [address] Urobilinogen Test strip (U) [Mass/Vol]Ordered By: Glenn Abdullahi on 05-16-2024 Urobilinogen (U) [Mass/Vol] Urobilinogen [Mass/volume] in Urine by Test strip Normal [facility] [facility] WBC Auto (Bld) [#/Vol]Ordere d By: Glenn Abdullahi on 05-16-2024 WBC (Bld) [#/Vol] Leukocytes [#/volume ] in Blood by Automated count High 3.8-11.6 [facility] pH Test strip (U)Ordered By: Glenn Abdullahi on 05-16-2024 pH (U) pH of Urine by Test strip 5.0-9.0 [facility] Urinalysis macro (dipstick) panel (U)Ordered By: Gloria Garcias on 04-24-2024 Bilirubin, UA Negative Negative - 4(70) +++ mg/dL [facility] Work Phone: Blood, UA Negative Negative - 50 Josiah/mcL [facility] Work Phone: Clarity, UA Clear [facility] Work Phone: Color, UA Yellow [facility] Work Phone: Glucose, UA Negative Negative - 1999(110) ++++ mg/dL [facility] Work Phone: Interpretation and review of laboratory results Abnormal [facility] Work Phone: Ketones, UA Negative Negative - 160(16) ++++ mg/dL [facility] Work Phone: Leukocytes, UA Negative Negative - 500+++ Archana/mcL [facility] Work Phone: Nitrite, UA Negative Negative - Positive [facility] Work Phone: pH, UA 6 5 - 9 [facility] Work Phone: Protein, UA Negative Negative - 2000(20) ++++ mg/dL [facility] Work Phone: Spec Grav, UA 1.03 1 - 1.03 [facility] Work Phone: Urobilinogen, UA 1.0 0.2 - 12 mg/dL [facility] Work Phone: [facility] Work Phone: Alanine aminotransferase [En zymatic activity/volume] in Serum or PlasmaOrdered By: Parminder Serrano on 04-05-2024 ALT [Catalytic activity/Vol] Alanine aminotransferase [Enzymatic activity/volume] in Serum or Plasma [facility] Albumin [Mass/volume] in Ser um or Plasma by Bromocresol green (BCG) dye binding methoOrdered By: Parmindre Serrano on 04-05-2024 Albumin BCG dye [Mass/Vol] Albumin [Mass/volume] in Serum or Plasma by Bromocresol green (BCG) dye binding metho 3.5-5.7 [facility] Alkaline phosphatase [Enzyma tic activity/volume] in Serum or PlasmaOrdered By: Parminder Serrano on 04-05-2024 ALP [Catalytic activity/Vol] Alkaline phosphatase [Enzymatic activity/volume] in Serum or Plasma 34-104 [facility] Appearance of UrineOrdered B y: Parminder Serrano on 04-05-2024 Appearance (U) Urine appearance Clear [facility] Aspartate aminotransferase [ Enzymatic activity/volume] in Serum or PlasmaOrdered By: Parminder Serrano on 04-05-2024 AST [Catalytic activity/Vol] Aspartate aminotransferase [Enzymatic activity/volume] in Serum or Plasma 13-39 [facility] Bacteria [Presence] in Urine by AutomatedOrdered By: Parminder Serrano on 04-05-2024 Bacteria Auto Ql (U) Bacteria [Presence] in Urine by Automated None Seen [facility] Basophils Auto (Bld) [#/Vol] Ordered By: Parminder Serrano on 04-05-2024 Basophils (Bld) [#/Vol] Automated basophil count 0.0-0.2 [facility] Basophils/100 WBC Auto (Bld) Ordered By: Parminder Serrano on 04-05-2024 Basophils/100 WBC (Bld) Automated basophil % . [facility] Bilirubin Test strip Ql (U)O rdered By: Parminder Serrano on 04-05-2024 Bilirubin Ql (U) Bilirubin.total [Pre sence] in Urine by Test strip Negative [facility] Bilirubin.total [Mass/volume ] in Serum or PlasmaOrdered By: Parminder Serrano on 04-05-2024 Bilirubin [Mass/Vol] Bilirubin.total [Mass/volume] in Serum or Plasma 0.3-1.0 [facility] BioFire Not Detectedon 04-05 BioFire Not Detected Not detected Normal Not Detecte [facility] Comment on above: Result Comment: This is a duplicate RP2.1 COVID (PCR) result to be used for statistical tracking purpose only. PERFORMED BY: [address] [place] [address] PATHOLOGIST [employer] SARAH ANDREWS M.D. Performed By: #### A DDONUAPLUS, URDS, CUU #### [facility] [address] COVID-19 Detected/Not Detect edOrdered By: Parminder Serrano on 04-05-2024 SARS-CoV-2 (COVID-19) RNA TORRES+non-probe Ql (Nph) Not detected Not Detecte [facility] Comment on above: This is a duplicate RP2.1 COVID (PCR) result to be used for statistical tracking purpose only. Calcium [Mass/volume] in Ser um or PlasmaOrdered By: Parminder Serrano on 04-05-2024 Calcium [Mass/Vol] Calcium [Mass/volume ] in Serum or Plasma 8.6-10.3 [facility] Carbon dioxide, total [Moles /volume] in Serum or PlasmaOrdered By: Parminder Serrano on 04-05-2024 CO2 [Moles/Vol] Carbon dioxide, tota l [Moles/volume] in Serum or Plasma Low 21.0-31.0 [facility] Chloride [Moles/volume] in S mayte or PlasmaOrdered By: Parminder Serrano on 04-05-2024 Chloride [Moles/Vol] Chloride [Moles/vol ume] in Serum or Plasma 98-107 [facility] Color Auto (U)Ordered By: Eduar Serrano on 04-05-2024 Color (U) Color of Urine by Auto [facility] Blood Count Auto Di ffon 04-05-2024 Basophils (Bld) [#/Vol] 0.0 10*3/uL Normal 0.0-0.2 [facility] Comment on above: Result Comment: PERF ORMED BY: [facility] [address] [place] [address] PATHOLOGIST [employer] SARAH ANDREWS M.D. Performed By: #### H EPATIC, CBC, BMP, LIPASE #### [facility] [address] Basophils/100 WBC (Bld) 0.2 % Normal . [facility] Comment on above: Performed By: #### H EPATIC, CBC, BMP, LIPASE #### [address] Eosinophils (Bld) [#/Vol] 0.0 10*3/uL Normal 0.0-0.45 [facility] Comment on above: Performed By: #### H EPATIC, CBC, BMP, LIPASE #### [address] Eosinophils/100 WBC (Bld) 0.0 % Normal . [facility] Comment on above: Performed By: #### H EPATIC, CBC, BMP, LIPASE #### [address] Erythrocyte distribution width (RBC) [Ratio] 14.5 % Normal 11.9-15.3 [facility] Comment on above: Performed By: #### H EPATIC, CBC, BMP, LIPASE #### [address] Hematocrit (Bld) [Volume fraction] 34.4 % Normal 34.0-46.4 [facility] Comment on above: Performed By: #### H EPATIC, CBC, BMP, LIPASE #### [address] Hemoglobin (Bld) [Mass/Vol] 11.4 g/dL Low 11.8-15.4 [facility] Comment on above: Performed By: #### H EPATIC, CBC, BMP, LIPASE #### [address] Lymphocytes (Bld) [#/Vol] 0.8 10*3/uL Low 1.00-4.8 [facility] Comment on above: Performed By: #### H EPATIC, CBC, BMP, LIPASE #### [address] Lymphocytes/100 WBC (Bld) 6.0 % Normal . [facility] Comment on above: Performed By: #### H EPATIC, CBC, BMP, LIPASE #### [address] MCH (RBC) [Entitic mass] 28.9 pg Normal 24.7-34.3 [facility] Comment on above: Performed By: #### H EPATIC, CBC, BMP, LIPASE #### [address] MCV (RBC) [Entitic vol] 86.9 fL Normal 80-100 [facility] Comment on above: Performed By: #### H EPATIC, CBC, BMP, LIPASE #### [address] Mean Corpuscular HGB Conc 33.2 g/dL Normal 32.0-35.0 [facility] Comment on above: Performed By: #### H EPATIC, CBC, BMP, LIPASE #### [address] Monocytes (Bld) [#/Vol] 0.3 10*3/uL Normal 0.0-0.8 [facility] Comment on above: Performed By: #### H EPATIC, CBC, BMP, LIPASE #### [address] Monocytes/100 WBC (Bld) 19.24 % Normal 0.00-20.00 [facility] Comment on above: Performed By: #### H EPATIC, CBC, BMP, LIPASE #### [address] Monocytes/100 WBC (Bld) 2.1 % Normal . [facility] Comment on above: Performed By: #### H EPATIC, CBC, BMP, LIPASE #### [address] Neutrophils (Bld) [#/Vol] 11.7 10*3/uL High 1.8-7.7 [facility] Comment on above: Performed By: #### H EPATIC, CBC, BMP, LIPASE #### [address] Neutrophils/100 WBC (Bld) 91.7 % Normal . [facility] Comment on above: Performed By: #### H EPATIC, CBC, BMP, LIPASE #### [address] NRBC% 0.0 /100{WBC} Normal 0-0.5 [facility] Comment on above: Performed By: #### H EPATIC, CBC, BMP, LIPASE #### [address] Platelet mean volume (Bld) [Entitic vol] 11.2 fL High 6.3-10.7 [facility] Comment on above: Performed By: #### H EPATIC, CBC, BMP, LIPASE #### [address] Platelets (Bld) [#/Vol] 205 10*3/uL Normal 150-450 [facility] Comment on above: Performed By: #### H EPATIC, CBC, BMP, LIPASE #### [address] RBC (Bld) [#/Vol] 3.95 10*6/uL Normal 3.60-5.[address] [facility] Comment on above: Performed By: #### H EPATIC, CBC, BMP, LIPASE #### [address] WBC (Bld) [#/Vol] 12.7 10*3/uL High 3.8-11.[address] [facility] Comment on above: Performed By: #### H EPATIC, CBC, BMP, LIPASE #### [address] Comprehensive Metabolic Pane blanquita 04-05-2024 Albumin [Mass/Vol] 4.2 g/dL Normal 3.5-5.7 [facility] Comment on above: Performed By: #### H EPATIC, CBC, BMP, LIPASE #### [address] Albumin/Globulin [Mass ratio] 1.3 {ratio} Normal [facility] Comment on above: Performed By: #### H EPATIC, CBC, BMP, LIPASE #### [address] ALP [Catalytic activity/Vol] 60 U/L Normal 34-104 [facility] Comment on above: Performed By: #### H EPATIC, CBC, BMP, LIPASE #### [address] ALT [Catalytic activity/Vol] 20 U/L Normal 7-52 [facility] Comment on above: Performed By: #### H EPATIC, CBC, BMP, LIPASE #### [address] Anion gap [Moles/Vol] 15.3 mmol/L High 6.0-15.0 [facility] Comment on above: Performed By: #### H EPATIC, CBC, BMP, LIPASE #### [address] AST [Catalytic activity/Vol] 13 U/L Normal 13-39 [facility] Comment on above: Performed By: #### H EPATIC, CBC, BMP, LIPASE #### [address] Bilirubin [Mass/Vol] 0.5 mg/dL Normal 0.3-1.0 [facility] Comment on above: Performed By: #### H EPATIC, CBC, BMP, LIPASE #### [address] Calcium [Mass/Vol] 9.1 mg/dL Normal 8.6-10.3 [facility] Comment on above: Performed By: #### H EPATIC, CBC, BMP, LIPASE #### [address] Chloride [Moles/Vol] 106 mmol/L Normal 98-107 [facility] Comment on above: Performed By: #### H EPATIC, CBC, BMP, LIPASE #### [address] CO2 [Moles/Vol] 19.0 mmol/L Low 21.0-31.0 [facility] Comment on above: Performed By: #### H EPATIC, CBC, BMP, LIPASE #### [facility] [address] Creatinine [Mass/Vol] 0.41 mg/dL Low 0.60-1.20 [facility] Comment on above: Performed By: #### H EPATIC, CBC, BMP, LIPASE #### [facility] [address] [place] [address] [place] Creatinine Clr Calc Pharmacy 181.93 Normal [facility] Comment on above: Performed By: #### H EPATIC, CBC, BMP, LIPASE #### [facility] [address] [place] [address] [place] GFR/1.73 sq M.predicted MDRD (S/P/Bld) [Vol rate/Area] mL/min/{1.73_m2} Normal [facility] Comment on above: Performed By: #### H EPATIC, CBC, BMP, LIPASE #### [address] Globulin (S) [Mass/Vol] 3.2 g/dL Normal [facility] Comment on above: Performed By: #### H EPATIC, CBC, BMP, LIPASE #### [address] Glucose [Mass/Vol] 138 mg/dL High 70-100 [facility] Comment on above: Result Comment: [facility] Glucose Reference Range is dependent on time and content of last meal. Glucose of more than 200 mg/dL in a nonstressed, ambulatory subject supports the diagnosis of Diabetes Mellitus. ADA recommended reference range Performed By: #### H EPATIC, CBC, BMP, LIPASE #### [address] Potassium [Moles/Vol] 3.3 mmol/L Low 3.5-5.1 [facility] Comment on above: Performed By: #### H EPATIC, CBC, BMP, LIPASE #### [facility] [address] Protein [Mass/Vol] 7.4 g/dL Normal 6.4-8.9 [facility] Comment on above: Performed By: #### H EPATIC, CBC, BMP, LIPASE #### [facility] [address] [place] [address] [place] Sodium [Moles/Vol] 137 mmol/L Normal 136-145 [facility] Comment on above: Performed By: #### H EPATIC, CBC, BMP, LIPASE #### [facility] [address] [place] [address] [place] Urea nitrogen [Mass/Vol] 9 mg/dL Normal 7-25 [facility] Comment on above: Performed By: #### H EPATIC, CBC, BMP, LIPASE #### [facility] [address] [place] [address] [place] Creatinine [Mass/volume] in Serum or PlasmaOrdered By: Parminder Serrano on 04-05-2024 Creatinine [Mass/Vol] Creatinine [Mass/v olume] in Serum or Plasma Low 0.60-1.20 [facility] Dipstick and Microscopicon 0 04-05-2024 Appearance (U) Clear Normal Clear [facility] Comment on above: Order Comment: Name Collection Type:: Clean-Voided Midstream Performed By: #### A DDONUAPLUS #### [place] [address] [place] Bacteria,Urine None Seen Normal None Seen [facility] Comment on above: Order Comment: Name Collection Type:: Clean-Voided Midstream Performed By: #### A DDONUAPLUS #### [place] [address] [place] Bilirubin,Urine Negative Normal Negative [facility] Comment on above: Order Comment: Name Collection Type:: Clean-Voided Midstream Performed By: #### A DDONUAPLUS #### [place] [address] [place] Color (U) Light-Yellow Normal Yellow [facility] Comment on above: Order Comment: Name Collection Type:: Clean-Voided Midstream Performed By: #### A DDONUAPLUS #### [place] [address] [place] Glucose Ql (U) 150 mg/dL High Normal [facility] Comment on above: Order Comment: Name Collection Type:: Clean-Voided Midstream Performed By: #### A DDONUAPLUS #### [place] [address] [place] Hyaline Casts,Urine None Normal 0-8 [facility] Comment on above: Order Comment: Name Collection Type:: Clean-Voided Midstream Performed By: #### A DDONUAPLUS #### [place] [address] [place] Ketones Ql (U) 4+ High Negative [facility] Comment on above: Order Comment: Name Collection Type:: Clean-Voided Midstream Performed By: #### A DDONUAPLUS #### [place] [address] [place] Leukocyte esterase Test strip Ql (U) 3+ High Negative [facility] Comment on above: Order Comment: Name Collection Type:: Clean-Voided Midstream Performed By: #### A DDONUAPLUS #### [place] [address] [place] Mucus,Urine Rare Normal [facility] Comment on above: Order Comment: Name Collection Type:: Clean-Voided Midstream Result Comment: PERF ORMED BY: [place] [address] PATHOLOGIST [employer] SARAH ANDREWS M.D. Performed By: #### A DDONUAPLUS #### [place] [address] [place] Nitrite,Urine Negative Normal Negative [facility] Comment on above: Order Comment: Name Collection Type:: Clean-Voided Midstream Performed By: #### A DDONUAPLUS #### [place] [id number] [place] Occult Blood,Urine Negative Normal Negative [facility] Comment on above: Order Comment: Name Collection Type:: Clean-Voided Midstream Result Comment: PERF ORMED BY: [place] [address] PATHOLOGIST [employer] SARAH ANDREWS M.D. Performed By: #### A DDONUAPLUS #### [address] pH (U) 6.5 [pH] Normal 5.0-9.0 [facility] Comment on above: Order Comment: Name Collection Type:: Clean-Voided Midstream Performed By: #### A DDONUAPLUS #### [address] Protein,Urine Negative Normal Negative [facility] Comment on above: Order Comment: Name Collection Type:: Clean-Voided Midstream Performed By: #### A DDONUAPLUS #### [address] RBC,Urine 1 [HPF] Normal 0-4 [facility] Comment on above: Order Comment: Name Collection Type:: Clean-Voided Midstream Performed By: #### A DDONUAPLUS #### [address] Specificy [place],Urine 1.018 Normal 1.001-1.03 0 [facility] Comment on above: Order Comment: Name Collection Type:: Clean-Voided Midstream Performed By: #### A DDONUAPLUS #### [address] Squamous Epithelial Cell,Urine 3 [HPF] High 0-2 [facility] Comment on above: Order Comment: Name Collection Type:: Clean-Voided Midstream Performed By: #### A DDONUAPLUS #### [address] Urobilinogen,Urine Normal Normal Normal [facility] Comment on above: Order Comment: Name Collection Type:: Clean-Voided Midstream Performed By: #### A DDONUAPLUS #### [address] WBC,Urine 3 [HPF] Normal 0-4 [facility] Comment on above: Order Comment: Name Collection Type:: Clean-Voided Midstream Performed By: #### A DDONUAPLUS #### [facility] [address] [place] [id number] [facility] Eosinophils Auto (Bld) [#/Vo l]Ordered By: Parminder Serrano on 04-05-2024 Eosinophils (Bld) [#/Vol] Automated eosinophil count 0.0-0.45 [facility] Eosinophils/100 WBC Auto (Bl d)Ordered By: Parminder Serrano on 04-05-2024 Eosinophils/100 WBC (Bld) Automated eosinophil % . [facility] Epithelial cells.squamous [# /area] in Urine sediment by Automated countOrdered By: Parminder Serrano on 04-05-2024 Epithelial cells.squamous Auto (Urine sed) [#/Area] Epithelial cells.squamous [#/area] in Urine sediment by Automated count High 0-2 [facility] Erythrocyte distribution wid th Auto (RBC) [Ratio]Ordered By: Parminder Serrano on 04-05-2024 Erythrocyte distribution width (RBC) [Ratio] Erythrocyte distribution width [Ratio] by Automated count 11.9-15.3 [facility] Erythrocytes [#/area] in Uri ne sediment by Automated countOrdered By: Parminder Serrano on 04-05-2024 RBC Auto (Urine sed) [#/Area] Erythrocytes [#/area] in Urine sediment by Automated count 0-4 [facility] Globulin Calc (S) [Mass/Vol] Ordered By: Parminder Serrano on 04-05-2024 Globulin (S) [Mass/Vol] Serum globulin measurement by calculation (mass/volume) [facility] Glucose [Mass/volume] in Ser um or PlasmaOrdered By: Parminder Serrano on 04-05-2024 Glucose [Mass/Vol] Glucose [Mass/volume ] in Serum or Plasma High 70-100 [facility] Comment on above: ADA recommended refe rence rangeRandom Glucose Reference Range is dependent on time and content of last meal. Glucose of more than 200 mg/dL in a nonstressed, ambulatory subject supports the diagnosis of Diabetes Mellitus. Glucose [Mass/volume] in Uri ne by Test stripOrdered By: Parminder Serrano on 04-05-2024 Glucose Test strip (U) [Mass/Vol] Glucose [Mass/volume] in Urine by Test strip High Normal [facility] Hematocrit Auto (Bld) [Volum e fraction]Ordered By: Parminder Serrano on 04-05-2024 Hematocrit (Bld) [Volume fraction] Hematocrit [Volume Fraction] of Blood by Automated count 34.0-46.4 [facility] Hemoglobin Test strip Ql (U) Ordered By: Parminder Serrano on 04-05-2024 Hemoglobin Ql (U) Hemoglobin [Presence ] in Urine by Test strip Negative [facility] Hemoglobin [Mass/volume] in BloodOrdered By: Parminder Serrano on 04-05-2024 Hemoglobin (Bld) [Mass/Vol] Hemoglobin [Mass/volume] in Blood Low 11.8-15.4 [facility] Hyaline casts [#/area] in Ur ine sediment by Automated countOrdered By: Parminder Serrano on 04-05-2024 Hyaline casts Auto (Urine sed) [#/Area] Hyaline casts [#/area] in Urine sediment by Automated count 0-8 [facility] Ketones Test strip Ql (U)Ord ered By: Parminder Serrano on 04-05-2024 Ketones Ql (U) Ketones [Presence] i n Urine by Test strip High Negative [facility] Leukocyte esterase [Presence ] in Urine by Test stripOrdered By: Parminder Serrano on 04-05-2024 Leukocyte esterase Test strip Ql (U) Leukocyte esterase [Presence] in Urine by Test strip High Negative [facility] Leukocytes [#/area] in Urine sediment by Automated countOrdered By: Parminder Serrano on 04-05-2024 WBC Auto (Urine sed) [#/Area] Leukocytes [#/area] in Urine sediment by Automated count 0-4 [facility] Leukocytes [#/volume] correc rossy for nucleated erythrocytes in Blood by Automated counOrdered By: Parminder Serrano on 04-05-2024 WBC corrected for nucl RBC Auto (Bld) [#/Vol] Leukocytes [#/volume] corrected for nucleated erythrocytes in Blood by Automated coun High 3.8-11.6 [facility] Lipaseon 04-05-2024 Lipase [Catalytic activity/Vol] 11.0 U/L Normal 11.0-82.0 [facility] Comment on above: Result Comment: PERF ORMED BY: [facility] [address] [place] [address] PATHOLOGIST [employer] SARAH ANDREWS M.D. Performed By: #### H EPATIC, CBC, BMP, LIPASE #### [facility] [address] Lipase [Enzymatic activity/v olume] in Serum or PlasmaOrdered By: Parminder Serrano on 04-05-2024 Lipase [Catalytic activity/Vol] Lipase [Enzymatic activity/volume] in Serum or Plasma 11.0-82.0 [facility] Lymphocytes Auto (Bld) [#/Vo l]Ordered By: Parminder Serrano on 04-05-2024 Lymphocytes (Bld) [#/Vol] Lymphocytes [#/volume] in Blood by Automated count Low 1.00-4.8 [facility] Lymphocytes/100 WBC Auto (Bl d)Ordered By: Parminder Serrano on 04-05-2024 Lymphocytes/100 WBC (Bld) Lymphocytes/100 leukocytes in Blood by Automated count . [facility] MCH Auto (RBC) [Entitic mass ]Ordered By: Parminder Serrano on 04-05-2024 MCH (RBC) [Entitic mass] MCH [Entitic mass] by Automated count 24.7-34.3 [facility] MCHC Auto (RBC) [Mass/Vol]Or dered By: Parminder Serrano on 04-05-2024 MCHC (RBC) [Mass/Vol] MCHC [Mass/volume] by Automated count 32.0-35.0 [facility] MCV Auto (RBC) [Entitic vol] Ordered By: Parminder Serrano on 04-05-2024 MCV (RBC) [Entitic vol] MCV [Entitic volume] by Automated count 80-100 [facility] Monocyte distribution width [Entitic volume] in Blood by AutomatedOrdered By: Parminder Serrano on 04-05-2024 Monocyte distribution width Auto (Bld) [Entitic vol] Monocyte distribution width [Entitic volume] in Blood by Automated 0.00-20.00 [facility] Monocytes Auto (Bld) [#/Vol] Ordered By: Parminder Serrano on 04-05-2024 Monocytes (Bld) [#/Vol] Automated blood monocyte count 0.0-0.8 [facility] Monocytes/100 WBC Auto (Bld) Ordered By: Parminder Serrano on 04-05-2024 Monocytes/100 WBC (Bld) Automated monocyte % . [facility] Mucus [Presence] in Urine by AutomatedOrdered By: Parminder Serrano on 04-05-2024 Mucus Auto Ql (U) Mucus [Presence] in Urine by Automated [facility] Neutrophils Auto (Bld) [#/Vo l]Ordered By: Parminder Serrano on 04-05-2024 Neutrophils (Bld) [#/Vol] Neutrophils [#/volume] in Blood by Automated count High 1.8-7.7 [facility] Neutrophils/100 WBC Auto (Bl d)Ordered By: Parminder Serrano on 04-05-2024 Neutrophils/100 WBC (Bld) Automated neutrophil % . [facility] Nitrite Test strip Ql (U)Ord ered By: Parminder Serrano on 04-05-2024 Nitrite Ql (U) Nitrite [Presence] i n Urine by Test strip Negative [facility] No Panel InformationOrdered By: Parminder Serrano on 04-05-2024 Estimated GFR (CKD-EPI) > 60.0 mL/Min [facility] Creatinine Clearance (Chem 181.93 [facility] Nucleated erythrocytes [Pres ence] in Blood by Automated countOrdered By: Parminder Serrano on 04-05-2024 Nucleated RBC Auto Ql (Bld) Nucleated erythrocytes [Presence] in Blood by Automated count 0-0.5 [facility] Platelet mean volume Auto (B ld) [Entitic vol]Ordered By: Parminder Serrano on 04-05-2024 Platelet mean volume (Bld) [Entitic vol] Platelet mean volume [Entitic volume] in Blood by Automated count High 6.3-10.7 [facility] Platelets Auto (Bld) [#/Vol] Ordered By: Parminder Serrano on 04-05-2024 Platelets (Bld) [#/Vol] Platelets [#/volume] in Blood by Automated count 150-450 [facility] Potassium [Moles/volume] in Serum or PlasmaOrdered By: Parminder Serrano on 04-05-2024 Potassium [Moles/Vol] Potassium [Moles/v olume] in Serum or Plasma Low 3.5-5.1 [facility] Protein Test strip (U) [Mass /Vol]Ordered By: Parminder Serrano on 04-05-2024 Protein (U) [Mass/Vol] Protein [Mass/volume] in Urine by Test strip Negative [facility] Protein [Mass/volume] in Ser um or PlasmaOrdered By: Parminder Serrano on 04-05-2024 Protein [Mass/Vol] Protein [Mass/volume ] in Serum or Plasma 6.4-8.9 [facility] RBC Auto (Bld) [#/Vol]Ordere d By: Parminder Serrano on 04-05-2024 RBC (Bld) [#/Vol] Erythrocytes [#/volu me] in Blood by Automated count 3.60-5.00 [facility] Respiratory (Upper) Panel, P CRon 04-05-2024 [...] FLUA TEST INCLUDES - Influenza A H1 2008 FLUA TEST INCLUDES - Influenza A H3 Blank Space -- PERFORMED BY: [facility] [place] [address] PATHOLOGIST [employer] SARAH ANDREWS M.D. Normal [facility] Comment on above: Performed By: #### A DDONUAPLUS, URDS, CUU #### [facility] [address] Respiratory pathogens DNA an d RNA panel - Nasopharynx by TORRES with non-probe detectionOrdered By: Parminder Serrano on 04-05-2024 Respiratory pathogens DNA and RNA panel TORRES+non-probe (Nph) Respiratory pathogens DNA and RNA panel - Nasopharynx by TORRES with non-probe detection [facility] Respiratory pathogens DNA and RNA panel TORRES+non-probe (Nph) Respiratory pathogens DNA and RNA panel - Nasopharynx by TORRES with non-probe detection [facility] Serum or plasma albumin/glob ulin mass ratioOrdered By: Parminder Serrano on 04-05-2024 Albumin/Globulin [Mass ratio] Serum or plasma albumin/globulin mass ratio [facility] Serum or plasma anion gap de terminationOrdered By: Parminder Serrano on 04-05-2024 Anion gap [Moles/Vol] Serum or plasma an ion gap determination High 6.0-15.0 [facility] Sodium [Moles/volume] in Ser um or PlasmaOrdered By: Parminder Serrano on 04-05-2024 Sodium [Moles/Vol] Sodium [Moles/volume ] in Serum or Plasma 136-145 [facility] Specific gravity Test strip (U) [Rel density]Ordered By: Parminder Serrano on 04-05-2024 Specific gravity (U) [Rel density] Specific gravity of Urine by Test strip 1.001-1.03 0 [facility] Urea nitrogen [Mass/volume] in Serum or PlasmaOrdered By: Parminder Serrano on 04-05-2024 Urea nitrogen [Mass/Vol] Urea nitrogen [Mass/volume] in Serum or Plasma 7-25 [facility] Urobilinogen Test strip (U) [Mass/Vol]Ordered By: Parminder Serrano on 04-05-2024 Urobilinogen (U) [Mass/Vol] Urobilinogen [Mass/volume] in Urine by Test strip Normal [facility] WBC Auto (Bld) [#/Vol]Ordere d By: Parminder Serrano on 04-05-2024 WBC (Bld) [#/Vol] Leukocytes [#/volume ] in Blood by Automated count High 3.8-11.6 [facility] pH Test strip (U)Ordered By: Parminder Serrano on 04-05-2024 pH (U) pH of Urine by Test strip 5.0-9.0 [facility] BOX TESTon 04-03-2024 BOX TEST SENT OUT [facility] BOX1 [facility] BOX2 04/03/24 [facility] HCG ( test) Ql (U)o n 03-24-2024 Interpretation and review of laboratory results Abnormal [facility] Preg Test, Ur Positive Negative [facility] US OB TRANSVAGINALon 025 US [...] x 5.5 cm (8 weeks, 6 days). [place] rump length is 2.1 cm (8 weeks, [...] UA Positive Negative - 4(70) +++ mg/dL [facility] Comment on above: small Blood, UA Negative Negative - 50 Josiah/mcL [facility] Clarity, UA Clear [facility] Color, UA Yellow [facility] Glucose, UA Negative Negative - 2000(110) ++++ mg/dL [facility] Interpretation and review of laboratory results Abnormal [facility] Ketones, UA Positive Negative - 160(16) ++++ mg/dL [facility] Comment on above: trace Leukocytes, UA Positive Negative - 500+++ Archana/mcL [facility] Comment on above: small Nitrite, UA Negative Negative - Positive [facility] pH, UA 6.5 5 - 9 [facility] Protein, UA Positive Negative - 2000(20) ++++ mg/dL [facility] Comment on above: 30 mg Spec Grav, UA 1.025 1 - 1.03 [facility] Urobilinogen, UA 1.0 0.2 - 12 mg/dL [facility] Alanine aminotransferase [En zymatic activity/volume] in Serum or PlasmaOrdered By: Surjit Stanton on 03-04-2024 ALT [Catalytic activity/Vol] Alanine aminotransferase [Enzymatic activity/volume] in Serum or Plasma 7-52 [facility] Albumin [Mass/volume] in Ser um or Plasma by Bromocresol green (BCG) dye binding methoOrdered By: Surjit Stanton on 03-04-2024 Albumin BCG dye [Mass/Vol] Albumin [Mass/volume] in Serum or Plasma by Bromocresol green (BCG) dye binding metho 3.5-5.7 [facility] Alkaline phosphatase [Enzyma tic activity/volume] in Serum or PlasmaOrdered By: Surjit Stanton on 03-04-2024 ALP [Catalytic activity/Vol] Alkaline phosphatase [Enzymatic activity/volume] in Serum or Plasma Low 34-104 [facility] Anisocytosis LM Ql (Bld)Orde red By: Surjit Stanton on 03-04-2024 Anisocytosis Ql (Bld) Anisocytosis [Pres ence] in Blood by Light microscopy [facility] Appearance of UrineOrdered B y: Surjit Stanton on 03-04-2024 Appearance (U) Urine appearance Clear [facility] Aspartate aminotransferase [ Enzymatic activity/volume] in Serum or PlasmaOrdered By: Surjit Stanton on 03-04-2024 AST [Catalytic activity/Vol] Aspartate aminotransferase [Enzymatic activity/volume] in Serum or Plasma 13-39 [facility] Bacteria [Presence] in Urine by AutomatedOrdered By: Surjit Romy on 03-04-2024 Bacteria Auto Ql (U) Bacteria [Presence] in Urine by Automated None Seen [facility] Basic Metabolic Panelon 02-19 Anion gap [Moles/Vol] 12.2 mmol/L Normal 6.0-15.0 e [facility] Comment on above: Performed By: #### H EPATIC, CBC, BMP, LIPASE #### [facility] [address] [place] [address] [place] Calcium [Mass/Vol] 9.4 mg/dL Normal 8.6-10.3 [facility] Comment on above: Performed By: #### H EPATIC, CBC, BMP, LIPASE #### [facility] [address] [place] [id number] [place] Chloride [Moles/Vol] 109 mmol/L High 98-107 [facility] Comment on above: Performed By: #### H EPATIC, CBC, BMP, LIPASE #### [facility] [address] [place] [id number] [place] CO2 [Moles/Vol] 21.1 mmol/L Normal 21.0-31.0 [facility] Comment on above: Performed By: #### H EPATIC, CBC, BMP, LIPASE #### [facility] [address] [place] [id number] [place] Creatinine [Mass/Vol] 0.60 mg/dL Normal 0.60-1.20 [facility] Comment on above: Performed By: #### H EPATIC, CBC, BMP, LIPASE #### [facility] [address] [place] [phone] [place] Creatinine Clr Calc Pharmacy 122.59 Normal [facility] Comment on above: Performed By: #### H EPATIC, CBC, BMP, LIPASE #### [address] GFR/1.73 sq M.predicted MDRD (S/P/Bld) [Vol rate/Area] mL/min/{1.73_m2} Normal [facility] Comment on above: Performed By: #### H EPATIC, CBC, BMP, LIPASE #### [address] Glucose [Mass/Vol] 134 mg/dL High 70-100 [facility] Comment on above: Result Comment: [facility] Glucose Reference Range is dependent on time and content of last meal. Glucose of more than 200 mg/dL in a nonstressed, ambulatory subject supports the diagnosis of Diabetes Mellitus. ADA recommended reference range Performed By: #### H EPATIC, CBC, BMP, LIPASE #### [address] Potassium [Moles/Vol] 3.3 mmol/L Low 3.5-5.1 [facility] Comment on above: Performed By: #### H EPATIC, CBC, BMP, LIPASE #### [address] Sodium [Moles/Vol] 139 mmol/L Normal 136-145 [facility] Comment on above: Performed By: #### H EPATIC, CBC, BMP, LIPASE #### [address] Urea nitrogen [Mass/Vol] 8 mg/dL Normal 7-25 [facility] Comment on above: Performed By: #### H EPATIC, CBC, BMP, LIPASE #### [place] [address] [place] Basophils Auto (Bld) [#/Vol] Ordered By: Surjit Stanton on 03-04-2024 Basophils (Bld) [#/Vol] Automated basophil count 0.0-0.2 [facility] Basophils/100 WBC Auto (Bld) Ordered By: Surjit Stanton on 03-04-2024 Basophils/100 WBC (Bld) Automated basophil % . [facility] Bilirubin Test strip Ql (U)O rdered By: Surjit Stanton on 03-04-2024 Bilirubin Ql (U) Bilirubin.total [Pre sence] in Urine by Test strip Negative [facility] Bilirubin.direct [Mass/volum e] in Serum or PlasmaOrdered By: Surjit Stanton on 03-04-2024 Bilirubin.direct [Mass/Vol] Bilirubin.direct [Mass/volume] in Serum or Plasma 0.03-0.18 [facility] Bilirubin.total [Mass/volume ] in Serum or PlasmaOrdered By: Surjit Stanton on 03-04-2024 Bilirubin [Mass/Vol] Bilirubin.total [Mass/volume] in Serum or Plasma 0.3-1.0 [facility] Calcium [Mass/volume] in Ser um or PlasmaOrdered By: Surjit Stanton on 03-04-2024 Calcium [Mass/Vol] Calcium [Mass/volume ] in Serum or Plasma 8.6-10.3 [facility] Carbon dioxide, total [Moles /volume] in Serum or PlasmaOrdered By: Surjit Stanton on 03-04-2024 CO2 [Moles/Vol] Carbon dioxide, tota l [Moles/volume] in Serum or Plasma 21.0-31.0 [facility] Chloride [Moles/volume] in S mayte or PlasmaOrdered By: Surjit Stanton on 03-04-2024 Chloride [Moles/Vol] Chloride [Moles/vol ume] in Serum or Plasma High 98-107 [facility] Choriogonadotropin.beta subu nit [Units/volume] in Serum or PlasmaOrdered By: Surjit Stanton on 03-04-2024 HCG.beta subunit Qn Choriogonadotropin.b eta subunit [Units/volume] in Serum or Plasma [facility] Comment on above: Approximate Approxim ate hCG Gestational Age Range (mIU/ml) (weeks)0.2-1 5-50 1-2 50-500 2-3 100-5,000 3-4 500-10,000 4-5 1,000-50,000 5-6 10,000-100,000 6-8 15,000-200,000 -12 10,000-100,000 Color Auto (U)Ordered By: Ashvin pantojaarabella Romy on 03-04-2024 Color (U) Color of Urine by Auto Yellow [facility] Creatinine [Mass/volume] in Serum or PlasmaOrdered By: Surjit Romy on 03-04-2024 Creatinine [Mass/Vol] Creatinine [Mass/v olume] in Serum or Plasma 0.60-1.20 [facility] Dipstick and Microscopicon 1 05-05-2023 Appearance (U) Clear Normal Clear [facility] Comment on above: Order Comment: Name Collection Type:: Clean-Voided Midstream Performed By: #### A DDONUAPLUS #### [place] [address] [place] Bacteria,Urine Rare Normal None Seen [facility] Comment on above: Order Comment: Name Collection Type:: Clean-Voided Midstream Performed By: #### A DDONUAPLUS #### [place] [address] [place] Bilirubin,Urine Negative Normal Negative [facility] Comment on above: Order Comment: Name Collection Type:: Clean-Voided Midstream Performed By: #### A DDONUAPLUS #### [place] [address] [place] Color (U) Light-Yellow Normal Yellow [facility] Comment on above: Order Comment: Name Collection Type:: Clean-Voided Midstream Performed By: #### A DDONUAPLUS #### [place] [address] [place] Glucose Ql (U) Normal Normal Normal [facility] Comment on above: Order Comment: Name Collection Type:: Clean-Voided Midstream Performed By: #### A DDONUAPLUS #### [place] [address] [place] Hyaline Casts,Urine None Normal 0-8 [facility] Comment on above: Order Comment: Name Collection Type:: Clean-Voided Midstream Performed By: #### A DDONUAPLUS #### [place] [address] [place] Ketones Ql (U) 2+ High Negative [facility] Comment on above: Order Comment: Name Collection Type:: Clean-Voided Midstream Performed By: #### A DDONUAPLUS #### [address] Leukocyte esterase Test strip Ql (U) Negative Normal Negative [facility] Comment on above: Order Comment: Name Collection Type:: Clean-Voided Midstream Performed By: #### A DDONUAPLUS #### [place] [address] [place] Mucus,Urine 2+ Critically abnormal [facility] Comment on above: Order Comment: Name Collection Type:: Clean-Voided Midstream Result Comment: PERF ORMED BY: [place] [address] PATHOLOGIST [employer] SARAH ANDREWS M.D. Performed By: #### A DDONUAPLUS #### [place] [address] [place] Nitrite,Urine Negative Normal Negative [facility] Comment on above: Order Comment: Name Collection Type:: Clean-Voided Midstream Performed By: #### A DDONUAPLUS #### [place] [address] [place] Occult Blood,Urine Negative Normal Negative [facility] Comment on above: Order Comment: Name Collection Type:: Clean-Voided Midstream Result Comment: PERF ORMED BY: [place] [address] PATHOLOGIST [employer] SARAH ANDREWS M.D. Performed By: #### A DDONUAPLUS #### [place] [address] [place] pH (U) 8.5 [pH] Normal 5.0-9.0 [facility] Comment on above: Order Comment: Name Collection Type:: Clean-Voided Midstream Performed By: #### A DDONUAPLUS #### [address] Protein (U) [Mass/Vol] 20 mg/dL High Negative [facility] Comment on above: Order Comment: Name Collection Type:: Clean-Voided Midstream Performed By: #### A DDONUAPLUS #### [address] RBC,Urine 3 [HPF] Normal 0-4 [facility] Comment on above: Order Comment: Name Collection Type:: Clean-Voided Midstream Performed By: #### A DDONUAPLUS #### [address] Specificy [place],Urine 1.023 Normal 1.001-1.03 0 [facility] Comment on above: Order Comment: Name Collection Type:: Clean-Voided Midstream Performed By: #### A DDONUAPLUS #### [address] Squamous Epithelial Cell,Urine 5 [HPF] High 0-2 [facility] Comment on above: Order Comment: Name Collection Type:: Clean-Voided Midstream Performed By: #### A DDONUAPLUS #### [address] Urobilinogen,Urine Normal Normal Normal [facility] Comment on above: Order Comment: Name Collection Type:: Clean-Voided Midstream Performed By: #### A DDONUAPLUS #### [address] WBC,Urine 1 [HPF] Normal 0-4 [facility] Comment on above: Order Comment: Name Collection Type:: Clean-Voided Midstream Performed By: #### A DDONUAPLUS #### [place] [address] [place] Eosinophils Auto (Bld) [#/Vo l]Ordered By: Surjit Stanton on 03-04-2024 Eosinophils (Bld) [#/Vol] Automated eosinophil count 0.0-0.45 [facility] Eosinophils/100 WBC Auto (Bl d)Ordered By: Surjit Stanton on 03-04-2024 Eosinophils/100 WBC (Bld) Automated eosinophil % . [facility] Epithelial cells.squamous [# /area] in Urine sediment by Automated countOrdered By: Surjit Stanton on 03-04-2024 Epithelial cells.squamous Auto (Urine sed) [#/Area] Epithelial cells.squamous [#/area] in Urine sediment by Automated count High 0-2 [facility] Erythrocyte distribution wid th Auto (RBC) [Ratio]Ordered By: Surjit Stanton on 03-04-2024 Erythrocyte distribution width (RBC) [Ratio] Erythrocyte distribution width [Ratio] by Automated count 11.9-15.3 [facility] Erythrocyte morphology findi ng [Identifier] in BloodOrdered By: Surjit Stanton on 03-04-2024 RBC morphology finding Nom (Bld) RBC morphology Normal [facility] Erythrocytes [#/area] in Uri ne sediment by Automated countOrdered By: Surjit Stanton on 03-04-2024 RBC Auto (Urine sed) [#/Area] Erythrocytes [#/area] in Urine sediment by Automated count 0-4 [facility] Globulin Calc (S) [Mass/Vol] Ordered By: Surjit Stanton on 03-04-2024 Globulin (S) [Mass/Vol] Serum globulin measurement by calculation (mass/volume) [facility] Glucose [Mass/volume] in Ser um or PlasmaOrdered By: Surjit Stanton on 03-04-2024 Glucose [Mass/Vol] Glucose [Mass/volume ] in Serum or Plasma High 70-100 [facility] Comment on above: ADA recommended refe [...] [Mass/volume] in Urine by Test strip Normal [facility] HCG,Quantitativeon HCG,Quantitative 78456.00 m[iU]/mL Normal [facility] Comment on above: Result Comment: Appr oximate Approximate hCG Gestational Age Range (mIU/ml) (weeks) 0.2-1 5-50 1-2 50-500 2-3 100-5,000 3-4 500-10,000 4-5 1,000-50,000 5-6 10,000-100,000 6-8 15,000-200,000 8-12 10,000-100,000 PERFORMED BY: [place] [address] PATHOLOGIST [employer] SARAH ANDREWS M.D. Performed By: #### H EPATIC, CBC, BMP, LIPASE #### [address] Hematocrit Auto (Bld) [Volum e fraction]Ordered By: Surjit Stanton on 03-04-2024 Hematocrit (Bld) [Volume fraction] Hematocrit [Volume Fraction] of Blood by Automated count 34.0-46.4 [facility] Hemoglobin Test strip Ql (U) Ordered By: Surjit Stanton on 03-04-2024 Hemoglobin Ql (U) Hemoglobin [Presence ] in Urine by Test strip Negative [facility] Hemoglobin [Mass/volume] in BloodOrdered By: Surjit Stanton on 03-04-2024 Hemoglobin (Bld) [Mass/Vol] Hemoglobin [Mass/volume] in Blood 11.8-15.4 [facility] Hepatic Panelon 03-04-2024 Albumin [Mass/Vol] 4.6 g/dL Normal 3.5-5.7 [facility] Comment on above: Performed By: #### H EPATIC, CBC, BMP, LIPASE #### [address] Albumin/Globulin [Mass ratio] 1.6 {ratio} Normal [facility] Comment on above: Performed By: #### H EPATIC, CBC, BMP, LIPASE #### [address] ALP [Catalytic activity/Vol] 32 U/L Low 34-104 [facility] Comment on above: Performed By: #### H EPATIC, CBC, BMP, LIPASE #### [address] [place] [address] [place] ALT [Catalytic activity/Vol] 16 U/L Normal 7-52 [facility] Comment on above: Performed By: #### H EPATIC, CBC, BMP, LIPASE #### [address] AST [Catalytic activity/Vol] 14 U/L Normal 13-39 [facility] Comment on above: Performed By: #### H EPATIC, CBC, BMP, LIPASE #### [address] Bilirubin [Mass/Vol] 0.7 mg/dL Normal 0.3-1.0 [facility] Comment on above: Performed By: #### H EPATIC, CBC, BMP, LIPASE #### [address] Bilirubin,Indirect 0.6 mg/dL Normal [facility] Comment on above: Performed By: #### H EPATIC, CBC, BMP, LIPASE #### [address] Bilirubin.indirect [Mass/Vol] 0.10 mg/dL Normal 0.03-0.18 [facility] Comment on above: Performed By: #### H EPATIC, CBC, BMP, LIPASE #### [address] Globulin (S) [Mass/Vol] 2.9 g/dL Normal [facility] Comment on above: Performed By: #### H EPATIC, CBC, BMP, LIPASE #### [address] Protein [Mass/Vol] 7.5 g/dL Normal 6.4-8.9 [facility] Comment on above: Performed By: #### H EPATIC, CBC, BMP, LIPASE #### [address] Hyaline casts [#/area] in Ur ine sediment by Automated countOrdered By: Surjit Stanton on 03-04-2024 Hyaline casts Auto (Urine sed) [#/Area] Hyaline casts [#/area] in Urine sediment by Automated count 0-8 [facility] Ketones Test strip Ql (U)Ord ered By: Surjit Stanton on 03-04-2024 Ketones Ql (U) Ketones [Presence] i n Urine by Test strip High Negative [facility] Leukocyte esterase [Presence ] in Urine by Test stripOrdered By: Surjit Stanton on 03-04-2024 Leukocyte esterase Test strip Ql (U) Leukocyte esterase [Presence] in Urine by Test strip Negative [facility] Leukocytes [#/area] in Urine sediment by Automated countOrdered By: Surjit Stanton on 03-04-2024 WBC Auto (Urine sed) [#/Area] Leukocytes [#/area] in Urine sediment by Automated count 0-4 [facility] Leukocytes [#/volume] correc rossy for nucleated erythrocytes in Blood by Automated counOrdered By: Surjit Stanton on 03-04-2024 WBC corrected for nucl RBC Auto (Bld) [#/Vol] Leukocytes [#/volume] corrected for nucleated erythrocytes in Blood by Automated coun 3.8-11.6 [facility] Lipaseon 03-04-2024 Lipase [Catalytic activity/Vol] 15.0 U/L Normal 11.0-82.0 [facility] Comment on above: Performed By: #### H EPATIC, CBC, BMP, LIPASE #### [address] Lipase [Enzymatic activity/v olume] in Serum or PlasmaOrdered By: Surjit Stanton on 03-04-2024 Lipase [Catalytic activity/Vol] Lipase [Enzymatic activity/volume] in Serum or Plasma 11.0-82.0 [facility] Lymphocytes Auto (Bld) [#/Vo l]Ordered By: Surjit Stanton on 03-04-2024 Lymphocytes (Bld) [#/Vol] Lymphocytes [#/volume] in Blood by Automated count 1.00-4.8 [facility] Lymphocytes/100 WBC Auto (Bl d)Ordered By: Surjit Stanton on 03-04-2024 Lymphocytes/100 WBC (Bld) Lymphocytes/100 leukocytes in Blood by Automated count . [facility] MCH Auto (RBC) [Entitic mass ]Ordered By: Surjit Stanton on 03-04-2024 MCH (RBC) [Entitic mass] MCH [Entitic mass] by Automated count 24.7-34.3 [facility] MCHC Auto (RBC) [Mass/Vol]Or dered By: Surjit Stanton on 03-04-2024 MCHC (RBC) [Mass/Vol] MCHC [Mass/volume] by Automated count 32.0-35.0 [facility] MCV Auto (RBC) [Entitic vol] Ordered By: Surjit Stanton on 03-04-2024 MCV (RBC) [Entitic vol] MCV [Entitic volume] by Automated count 80-100 [facility] Microcytes LM Ql (Bld)Ordere d By: Surjit Stanton on 03-04-2024 Microcytes Ql (Bld) Microcytes [Presence ] in Blood by Light microscopy [facility] Monocyte distribution width [Entitic volume] in Blood by AutomatedOrdered By: Surjit Stanton on 03-04-2024 Monocyte distribution width Auto (Bld) [Entitic vol] Monocyte distribution width [Entitic volume] in Blood by Automated 0.00-20.00 [facility] Monocytes Auto (Bld) [#/Vol] Ordered By: Surjit Stanton on 03-04-2024 Monocytes (Bld) [#/Vol] Automated blood monocyte count 0.0-0.8 [facility] [facility] Monocytes/100 WBC Auto (Bld) Ordered By: Surjit Stanton on 03-04-2024 Monocytes/100 WBC (Bld) Automated monocyte % . [facility] Mucus [Presence] in Urine by AutomatedOrdered By: Surjit Stanton on 03-04-2024 Mucus Auto Ql (U) Mucus [Presence] in Urine by Automated Abnormal [facility] Neutrophils Auto (Bld) [#/Vo l]Ordered By: Surjit [place] on 03-04-2024 Neutrophils (Bld) [#/Vol] Neutrophils [#/volume] in Blood by Automated count 1.8-7.7 [facility] Neutrophils/100 WBC Auto (Bl d)Ordered By: Surjit [place] on 03-04-2024 Neutrophils/100 WBC (Bld) Automated neutrophil % . [facility] Nitrite Test strip Ql (U)Ord ered By: Surjit Stanton on 03-04-2024 Nitrite Ql (U) Nitrite [Presence] i n Urine by Test strip Negative [facility] No Panel InformationOrdered By: Surjit Stanton on 03-04-2024 Estimated GFR (CKD-EPI) > 60.0 mL/Min [facility] Creatinine Clearance (Chem 122.59 [facility] Nucleated erythrocytes [Pres ence] in Blood by Automated countOrdered By: Surjit Stanton on 03-04-2024 Nucleated RBC Auto Ql (Bld) Nucleated erythrocytes [Presence] in Blood by Automated count 0-0.5 [facility] Platelet adequacy [Presence] in Blood by Light microscopyOrdered By: Surjit Stanton on 03-04-2024 Platelets LM Ql (Bld) Platelet adequacy [Presence] in Blood by Light microscopy Normal [facility] Platelet mean volume Auto (B ld) [Entitic vol]Ordered By: Surjit Stanton on 03-04-2024 Platelet mean volume (Bld) [Entitic vol] Platelet mean volume [Entitic volume] in Blood by Automated count High 6.3-10.7 [facility] Platelet morphology finding [Identifier] in BloodOrdered By: Surjit Stanton on 03-04-2024 Platelet morphology finding Nom (Bld) Platelet morphology finding [Identifier] in Blood Normal [facility] Platelets Auto (Bld) [#/Vol] Ordered By: Surjit Stanton on 03-04-2024 Platelets (Bld) [#/Vol] Platelets [#/volume] in Blood by Automated count 150-450 [facility] Potassium [Moles/volume] in Serum or PlasmaOrdered By: Surjit Stanton on 03-04-2024 Potassium [Moles/Vol] Potassium [Moles/v olume] in Serum or Plasma Low 3.5-5.1 [facility] Protein Test strip (U) [Mass /Vol]Ordered By: Surjit Stanton on 03-04-2024 Protein (U) [Mass/Vol] Protein [Mass/volume] in Urine by Test strip High Negative [facility] Protein [Mass/volume] in Ser um or PlasmaOrdered By: Surjit Stanton on 03-04-2024 Protein [Mass/Vol] Protein [Mass/volume ] in Serum or Plasma 6.4-8.9 [facility] RBC Auto (Bld) [#/Vol]Ordere d By: Surjit Stanton on 03-04-2024 RBC (Bld) [#/Vol] Erythrocytes [#/volu me] in Blood by Automated count 3.60-5.00 [facility] Scan and CBCon 03-04-2024 Anisocytosis Ql (Bld) Slight Normal [facility] Comment on above: Performed By: #### A RAFAEL GORDON, CUU #### [place] [address] [place] Basophils (Bld) [#/Vol] 0.0 10*3/uL Normal 0.0-0.2 [facility] Comment on above: Performed By: #### A RAFAEL GORDON, CUU #### [address] Basophils/100 WBC (Bld) 0.6 % Normal . [facility] Comment on above: Performed By: #### A RAFAEL GORDON, CUU #### [place] [address] [place] Eosinophils (Bld) [#/Vol] 0.0 10*3/uL Normal 0.0-0.45 [facility] Comment on above: Performed By: #### A RAFAEL GORDON, CUU #### [place] [address] [place] Eosinophils/100 WBC (Bld) 0.2 % Normal . [facility] Comment on above: Performed By: #### A RAFAEL GORDON, CUU #### [address] Erythrocyte distribution width (RBC) [Ratio] 14.6 % Normal 11.9-15.3 [facility] Comment on above: Performed By: #### A DDONUAPLUS, URDS, CUU #### [address] Hematocrit (Bld) [Volume fraction] 38.2 % Normal 34.0-46.4 [facility] Comment on above: Performed By: #### A DDONUAPLUS, URDS, CUU #### [address] Hemoglobin (Bld) [Mass/Vol] 12.9 g/dL Normal 11.8-15.4 [facility] Comment on above: Performed By: #### A DDONUAPLUS, URDS, CUU #### [address] Lymphocytes (Bld) [#/Vol] 1.3 10*3/uL Normal 1.00-4.8 [facility] Comment on above: Performed By: #### A DDONUAPLUS, URDS, CUU #### [address] Lymphocytes/100 WBC (Bld) 17.1 % Normal . [facility] Comment on above: Performed By: #### A DDONUAPLUS, URDS, CUU #### [address] MCH (RBC) [Entitic mass] 29.4 pg Normal 24.7-34.3 [facility] Comment on above: Performed By: #### A DDONUAPLUS, URDS, CUU #### [address] MCV (RBC) [Entitic vol] 86.9 fL Normal 80-100 [facility] Comment on above: Performed By: #### A DDONUAPLUS, URDS, CUU #### [address] Mean Corpuscular HGB Conc 33.8 g/dL Normal 32.0-35.0 [facility] Comment on above: Performed By: #### A DDONUAPLUS, URDS, CUU #### [address] Microcytosis Slight Normal [facility] Comment on above: Performed By: #### A RAFAEL GORDON, CUU #### [address] Monocytes (Bld) [#/Vol] 0.3 10*3/uL Normal 0.0-0.8 [facility] Comment on above: Performed By: #### A RAFAEL GORDON, CUU #### [place] [address] [place] Monocytes/100 WBC (Bld) 15.87 % Normal 0.00-20.00 [facility] Comment on above: Performed By: #### A RAFAEL GORDON, CUU #### [address] Monocytes/100 WBC (Bld) 4.4 % Normal . [facility] Comment on above: Performed By: #### A RAFAEL GORDON, CUU #### [address] Neutrophils (Bld) [#/Vol] 6.0 10*3/uL Normal 1.8-7.7 [facility] Comment on above: Performed By: #### A RAFAEL GORDON, CUU #### [address] Neutrophils/100 WBC (Bld) 77.7 % Normal . [facility] Comment on above: Performed By: #### A RAFAEL GORDON, CUU #### [place] [address] [place] NRBC% 0.0 /100{WBC} Normal 0-0.5 [facility] Comment on above: Performed By: #### A RAFAEL GORDON, CUU #### [address] Platelet Estimate Normal Normal Normal [facility] Comment on above: Performed By: #### A RAFAEL GORDON, CUU #### [address] Platelet mean volume (Bld) [Entitic vol] 11.5 fL High 6.3-10.7 [facility] Comment on above: Performed By: #### A RAFAEL GORDON, CUU #### [address] Platelet Morphology Normal Normal Normal [facility] Comment on above: Result Comment: PERF ORMED BY: [place] [address] PATHOLOGIST [employer] SARAH ANDREWS M.D. Performed By: #### A RAFAEL GORDON, CUU #### [address] Platelets (Bld) [#/Vol] 182 10*3/uL Normal 150-450 [facility] Comment on above: Performed By: #### A RAFAEL GORDON, CUU #### [address] RBC (Bld) [#/Vol] 4.40 10*6/uL Normal 3.60-5.[address] [facility] Comment on above: Performed By: #### A RAFAEL GORDON, CUU #### [address] RBC morphology finding Nom (Bld) Normal Normal Normal [facility] Comment on above: Performed By: #### A RAFAEL GORDON, CUU #### [address] WBC (Bld) [#/Vol] 7.7 10*3/uL Normal 3.8-11.6 [facility] Comment on above: Performed By: #### A RAFAEL GORDON, CUU #### [address] Serum or plasma albumin/glob ulin mass ratioOrdered By: Surjit Stanton on 03-04-2024 Albumin/Globulin [Mass ratio] Serum or plasma albumin/globulin mass ratio [facility] Serum or plasma anion gap de terminationOrdered By: Surjit Stanton on 03-04-2024 Anion gap [Moles/Vol] Serum or plasma an ion gap determination 6.0-15.0 [facility] Serum or plasma non-glucuron idated bilirubin measurement (mass/volume)Ordered By: Surjit Stanton on 03-04-2024 Bilirubin.indirect [Mass/Vol] Serum or plasma non-glucuronidated bilirubin measurement (mass/volume) [facility] Sodium [Moles/volume] in Ser um or PlasmaOrdered By: Surjit Stanton on 03-04-2024 Sodium [Moles/Vol] Sodium [Moles/volume ] in Serum or Plasma 136-145 [facility] Specific gravity Test strip (U) [Rel density]Ordered By: Surjit Stanton on 03-04-2024 Specific gravity (U) [Rel density] Specific gravity of Urine by Test strip 1.001-1.03 0 [facility] Urea nitrogen [Mass/volume] in Serum or PlasmaOrdered By: Surjit Stanton on 03-04-2024 Urea nitrogen [Mass/Vol] Urea nitrogen [Mass/volume] in Serum or Plasma 7-25 [facility] Urobilinogen Test strip (U) [Mass/Vol]Ordered By: Surjit Stanton on 03-04-2024 Urobilinogen (U) [Mass/Vol] Urobilinogen [Mass/volume] in Urine by Test strip Normal [facility] WBC Auto (Bld) [#/Vol]Ordere d By: Surjit Stanton on 03-04-2024 WBC (Bld) [#/Vol] Leukocytes [#/volume ] in Blood by Automated count 3.8-11.6 [facility] pH Test strip (U)Ordered By: Surjit Stanton on 03-04-2024 pH (U) pH of Urine by Test strip 5.0-9.[address] [facility] [address] cervical spine wo conon 0 11-25-2023 [place] [address] CT Scan Report Signed Patient: Nicole Farris MR#: [id number] : 1995 Acct:[id number] Age/Sex: 28 / F ADM Date: 11/25/23 Loc: ER Room: Type: [facility] ER Attending Dr: Copies to: Vianney Genao APRN Ordering Provider: Vianney Genao APRN Date of Service: 11/25/23 CT/CT cervical spine wo con: increased pain ([id number]) CT/CT head/brain wo con: pain CLINICAL DATA: [...] Priscila Barbosa M.D.11/25/2023 7:01 PM Dictation Location: [place] [address] Transcribed By: ISABELLA [id number] Dictated By: Priscila Barbosa MD 11/25/231852 Signed By: 11/25/231900 Normal [facility] XR CERVICAL SPINE 2-3 VIEWSo [...] [Catalytic activity/Vol] 47 U/L Normal 7-52 U/L [facility] Albumin [Mass/volume] in Ser um or Plasma by Bromocresol green (BCG) dye binding methoOrdered By: Adin Gan on 06-04-2022 Albumin BCG dye [Mass/Vol] 4.9 g/dL 3.5-5.7 [facility] Alkaline phosphatase [Enzyma tic activity/volume] in Serum or PlasmaOrdered By: Adin Gan on 06-04-2022 ALP [Catalytic activity/Vol] 104 U/L Normal 34-104 U/L [facility] Aspartate aminotransferase [ Enzymatic activity/volume] in Serum or PlasmaOrdered By: Adin Gan on 06-04-2022 AST [Catalytic activity/Vol] 23 U/L Normal 13-39 U/L [facility] Bilirubin.total [Mass/volume ] in Serum or PlasmaOrdered By: Adin Gan on 06-04-2022 Bilirubin [Mass/Vol] 0.5 mg/dL 0.3-1.0 [facility] Calcium [Mass/volume] in Ser um or PlasmaOrdered By: Adin Gan on 06-04-2022 Calcium [Mass/Vol] 9.7 mg/dL 8.6-10.[address] [facility] Carbon dioxide, total [Moles /volume] in Serum or PlasmaOrdered By: Adin Gan on 06-04-2022 CO2 [Moles/Vol] 27.2 mmol/L 21.0-31.0 [facility] Chloride [Moles/volume] in S mayte or PlasmaOrdered By: Adin Gan on 06-04-2022 Chloride [Moles/Vol] 104 mmol/L Normal 98-107 mmol/L [facility] Comprehensive Metabolic Pane blanquita 06-04-2022 Albumin [Mass/Vol] 4.928995 g/dL Normal 3.5-5.7 g/dL [facility] Bilirubin [Mass/Vol] 0.2694180 mg/dL Normal 0.3- 1.0 mg/dL [facility] Calcium [Mass/Vol] 9.9150189 mg/dL Normal 8.6-10 .3 mg/dL [facility] CO2 [Moles/Vol] 27.59068314 mmol/L Normal 21.0-3 1.0 mmol/L [facility] Creatinine [Mass/Vol] 0.44617655 mg/dL Normal 0. 60-1.20 mg/dL [facility] Potassium [Moles/Vol] 4.60365448 mmol/L Normal 3 .5-5.1 mmol/L [facility] Protein [Mass/Vol] 7.924337 g/dL Normal 6.4-8.9 g/dL [facility] Comprehensive Metabolic Panel 3.0 g/dL [facility] Creatinine [Mass/volume] in Serum or PlasmaOrdered By: Adin Gan on 06-04-2022 Creatinine [Mass/Vol] 0.71 mg/dL 0.60-1.20 [place] Erythrocyte distribution wid th Auto (RBC) [Ratio]Ordered By: Adin Gan on 06-04-2022 Erythrocyte distribution width (RBC) [Ratio] 13.5 % 11.9-15.3 [facility] Erythrocytes [#/volume] in B lood by Automated countOrdered By: Adin Gan on 06-04-2022 RBC (Bld) [#/Vol] 4.44 10*6/uL Normal 3.60-5.00 [facility] Globulin Calc (S) [Mass/Vol] Ordered By: Adin Gan on 06-04-2022 Globulin (S) [Mass/Vol] 3.0 g/dL [facility] Glucose [Mass/volume] in Ser um or PlasmaOrdered By: Adin Gan on 06-04-2022 Glucose [Mass/Vol] 89 mg/dL Normal 74-109 mg/dL [facility] Comment on above: ADA recommended refe rence rangeRandom Glucose Reference Range is dependent on time and content of last meal. Glucose of more than 200 mg/dL in a nonstressed, ambulatory subject supports the diagnosis of Diabetes Mellitus. Hematocrit Auto (Bld) [Volum e fraction]Ordered By: Adin Gan on 06-04-2022 Hematocrit (Bld) [Volume fraction] 38.5 % 34.0-46.4 [facility] Hemoglobin [Mass/volume] in BloodOrdered By: Adin Gan on 06-04-2022 Hemoglobin (Bld) [Mass/Vol] 12.8 g/dL 11.8-15.4 [facility] Hemogram CBC Without Diffon 06-04-2022 Erythrocyte distribution width (RBC) [Ratio] 13.500 % Normal 11.9-15.3 % [facility] Hematocrit (Bld) [Volume fraction] 38.500 % Normal 34.0-46.4 % [facility] Hemoglobin (Bld) [Mass/Vol] 12.601642 g/dL Normal 11.8-15.4 g/dL [facility] MCH (RBC) [Entitic mass] 28.7000 pg Normal 24.7-34.3 pg [facility] MCV (RBC) [Entitic vol] 86.7000 fL Normal 80-100 fL [facility] Platelet mean volume (Bld) [Entitic vol] 11.1000 fL High 6.3-10.7 fL [facility] WBC (Bld) [#/Vol] 6.531447030 10*3/uL Normal 3.8 -11.6 10*3/uL [facility] [facility] Contract[facility] Other Hemogram CBC Without Diff 33.1 g/dL Normal 32.0-35.0 g/dL [facility] Other Laboratory - Chemistry and C hemistry - challengeOrdered By: Adin Gan on 06-04-2022 GFR/1.73 sq M.predicted MDRD (S/P/Bld) [Vol rate/Area] mL/min/{1.73_m2} [facility] Leukocytes [#/volume] correc rossy for nucleated erythrocytes in Blood by Automated counOrdered By: Adin Gan on 06-04-2022 WBC corrected for nucl RBC Auto (Bld) [#/Vol] 6.6 10*3/uL 3.8-11.6 [facility] MCH Auto (RBC) [Entitic mass ]Ordered By: Adin Gan on 06-04-2022 MCH (RBC) [Entitic mass] 28.7 pg 24.7-34.3 [facility] MCHC Auto (RBC) [Mass/Vol]Or dered By: Adin Gan on 06-04-2022 MCHC (RBC) [Mass/Vol] 33.1 g/dL 32.0-35.0 [place] MCV Auto (RBC) [Entitic vol] Ordered By: Adin Gan on 06-04-2022 MCV (RBC) [Entitic vol] 86.7 fL 80-100 [facility] No Panel InformationOrdered By: Adin Gan on 06-04-2022 Pharmacy Creatinine Clearance (Chem N/A [facility] Platelet mean volume Auto (B ld) [Entitic vol]Ordered By: Adin Gan on 06-04-2022 Platelet mean volume (Bld) [Entitic vol] 11.1 fL 6.3-10.7 [facility] Platelets [#/volume] in Bloo d by Automated countOrdered By: Adin Gan on 06-04-2022 Platelets (Bld) [#/Vol] 196 10*3/uL Normal 150-450 10*3/uL [facility] Potassium [Moles/volume] in Serum or PlasmaOrdered By: Adin Gan on 06-04-2022 Potassium [Moles/Vol] 4.1 mmol/L 3.5-5.1 [place] Protein [Mass/volume] in Ser um or PlasmaOrdered By: Adin Gan on 06-04-2022 Protein [Mass/Vol] 7.9 g/dL 6.4-8.[address] [facility] Serum or plasma albumin/glob ulin mass ratioOrdered By: Adin Gan on 06-04-2022 Albumin/Globulin [Mass ratio] 1.6 {ratio} [facility] Serum or plasma anion gap de terminationOrdered By: Adin Gan on 06-04-2022 Anion gap [Moles/Vol] 12.9 mmol/L 6.0-15.0 [facility] Sodium [Moles/volume] in Ser um or PlasmaOrdered By: Adin Gan on 06-04-2022 Sodium [Moles/Vol] 140 mmol/L Normal 136-145 mmol/L [facility] Thyroid Stim Hormone w/Rflxo n 06-04-2022 Thyroid Stim Hormone w/Rflx 0.93 u[iU]/mL Normal 0.45-5.33 u[iU]/mL [facility] Thyrotropin [Units/volume] i n Serum or PlasmaOrdered By: Adin Gan on 06-04-2022 TSH Qn 0.93 m[IU]/L 0.45-5.33 [facility] Urea nitrogen [Mass/volume] in Serum or PlasmaOrdered By: Adin Gan on 06-04-2022 Urea nitrogen [Mass/Vol] 15 mg/dL Normal 7-25 mg/dL [facility] PAP ACOG PANEL 2: 21 to 29on 02-24-2022 . . Normal [facility] Comment on above: Performed By: #### [id number] #### [facility] [address] [place] [address] [address] Lilia Calvillo Age Gdln ACOG Testing 21-29 Normal [facility] Comment on above: Performed By: #### [id number] #### [facility] [address] [place] [address] Dr. Lilia Calvillo DIAGNOSIS: Comment Normal [facility] Comment on above: Result Comment: NEGA TIVE FOR INTRAEPITHELIAL LESION OR MALIGNANCY. Performed By: #### [id number] #### [facility] [address] [place] [address] Dr. Lilia Calvillo Methodology: Comment Normal [facility] Comment on above: Result Comment: This liquid based ThinPrep(R) pap test was screened with the use of an image guided system. Performed By: #### [id number] #### [facility] [address] [place] [address] Dr. Lilia Calvillo Note: Comment Normal [facility] Comment on above: Result Comment: The Pap smear is a screening test designed to aid in the detection of premalignant and malignant conditions of the uterine cervix. It is not a diagnostic procedure and should not be used as the sole means of detecting cervical cancer. Both false-positive and false-negative reports do occur. . Performed By: #### [id number] #### [facility] [address] [place] [address] Dr. Lilia Calvillo Performed by: Comment Normal [facility] Comment on above: Result Comment: Philippe [employer] Rifler Operator (ASCP) Performed By: #### [id number] #### [facility] [address] [place] [address] Dr. Lilia Calvillo Reflex Criteria: Comment Normal [facility] Comment on above: Result Comment: The HPV DNA reflex criteria were not met with this specimen result therefore, no HPV testing was performed. . Performed By: #### [id number] #### [facility] [address] [place] [address] Dr. Lilia Calvillo Specimen adequacy: Comment Normal [facility] Comment on above: Result Comment: Sati sfactory for evaluation. No endocervical component is identified. Performed By: #### [id number] #### [facility] [address] [place] [address] Dr. Lilia Calvillo CBC AUTO DIFFon 10-17-2021 BASO # 0.0 103/ul Normal 0.0-0.1 [facility] Comment on above: Performed By: #### C BC #### [facility] [address] [place] [address] Dr. Lilia Calvillo Basophils/100 WBC (Bld) 0.4 % Normal 0.2-2.0 [facility] Comment on above: Performed By: #### C BC #### [facility] [address] [place] [address] Dr. Lilia Calvillo EO # 0.2 103/ul Normal 0.0-0.7 [facility] Comment on above: Performed By: #### C BC #### [facility] [address] [place] [address] Dr. Lilia Calvillo Eosinophils/100 WBC (Bld) 2.1 % Normal 0.9-7.0 [facility] Comment on above: Performed By: #### C BC #### [facility] [address] [place] [address] Dr. Lilia Calvillo Erythrocyte distribution width (RBC) [Ratio] 14.4 % Normal 11.0-15.0 [facility] Comment on above: Performed By: #### C BC #### [facility] [address] [place] [address] Dr. Lilia Calvillo Hematocrit (Bld) [Volume fraction] 27.2 % Critically low 36.0-48.0 [facility] Comment on above: Performed By: #### C BC #### [facility] [address] [place] [address] Dr. Lilia Calvillo Hemoglobin (Bld) [Mass/Vol] 9.0 g/dL Critically low 12.0-16.0 [facility] Comment on above: Performed By: #### C BC #### [facility] [address] [place] [address] Dr. Lilia Calvillo IG # 0.03 10e3/ul Normal 0.00-0.03 [facility] Comment on above: Performed By: #### C BC #### [facility] [address] [place] [address] Dr. Lilia Calvillo IG % 0.4 % Normal 0.0-0.5 [facility] Comment on above: Performed By: #### C BC #### [facility] [address] [place] [address] Dr. Lilia Calvillo LYMPH # 1.6 103/ul Normal 1.2-3.8 [facility] Comment on above: Performed By: #### C BC #### [facility] [address] [place] [address] Dr. Lliia Calvillo Lymphocytes/100 WBC (Bld) 20.2 % Critically low 20.5-60.0 [facility] Comment on above: Performed By: #### C BC #### [facility] [address] [place] [address] Dr. Lilia Calvillo MANUAL DIFF REQ NO Normal [facility] Comment on above: Performed By: #### C BC #### [facility] [address] [place] [address] Dr. Lilia Calvillo MCH (RBC) [Entitic mass] 29.3 pg Normal 26.7-34.0 [facility] Comment on above: Performed By: #### C BC #### [facility] [address] [place] [address] Dr. Lilia Calvillo MCHC (RBC) [Mass/Vol] 33.1 g/dL Normal 29.9-35.2 [facility] Comment on above: Performed By: #### C BC #### [facility] [address] [place] [address] Dr. Lilia Calvillo MCV (RBC) [Entitic vol] 88.6 fL Normal 81.0-99.0 [facility] Comment on above: Performed By: #### C BC #### [facility] [address] [place] [address] Dr. Lilia Calvillo MONO # 0.5 103/ul Normal 0.3-0.8 [facility] Comment on above: Performed By: #### C BC #### [facility] [address] [place] [address] Dr. Lilia Calvillo Monocytes/100 WBC (Bld) 5.7 % Normal 1.7-12.0 [facility] Comment on above: Performed By: #### C BC #### [facility] [address] [place] [address] [address] Lilia Calvillo NEUT # 5.8 103/ul Normal 1.4-6.5 [facility] Comment on above: Performed By: #### C BC #### [facility] [address] [address] [address] Lilia Calvillo Neutrophils/100 WBC (Bld) 71.2 % Normal 43.0-75.0 [facility] Comment on above: Performed By: #### C BC #### [facility] [address] [place] [address] Dr. Lilia Calvillo Platelet mean volume (Bld) [Entitic vol] 13.1 fL Normal 9.5-13.5 [facility] Comment on above: Performed By: #### C BC #### [facility] [address] [place] [address] Dr. Lilia Calvillo PLT 109 103/ul Critically low 150-450 [facility] Comment on above: Performed By: #### C BC #### [facility] [address] [place] [address] Dr. Lilia Calvillo RBC 3.07 106/ul Critically low 4.20-5.40 [facility] Comment on above: Performed By: #### C BC #### [facility] [address] [place] [address] Dr. Lilia Calvillo WBC 8.1 103/ul Normal 4.0-11.0 [facility] Comment on above: Performed By: #### C BC #### [facility] [address] [place] [address] Dr. Lilia Calvillo CBC AUTO DIFFon 10-16-2021 BASO # 0.0 103/ul Normal 0.0-0.1 [facility] Comment on above: Performed By: #### G TT3P #### [facility] [address] [place] [address] Dr. Lilia Calvillo Basophils/100 WBC (Bld) 0.2 % Normal 0.2-2.0 [facility] Comment on above: Performed By: #### G TT3P #### [facility] [address] [address] [address] Lilia Calvillo EO # 0.1 103/ul Normal 0.0-0.7 [facility] Comment on above: Performed By: #### G TT3P #### [facility] [address] [place] [address] Dr. Lilia Calvillo Eosinophils/100 WBC (Bld) 0.6 % Critically low 0.9-7.0 [facility] Comment on above: Performed By: #### G TT3P #### [facility] [address] [place] [address] Dr. Lilia Calvillo Erythrocyte distribution width (RBC) [Ratio] 14.5 % Normal 11.0-15.0 [facility] Comment on above: Performed By: #### G TT3P #### [facility] [address] [place] [address] Dr. Lilia Calvillo Hematocrit (Bld) [Volume fraction] 36.2 % Normal 36.0-48.0 [facility] Comment on above: Performed By: #### G TT3P #### [facility] [address] [place] [address] Dr. Lilia Calvillo Hemoglobin (Bld) [Mass/Vol] 11.8 g/dL Critically low 12.0-16.0 [facility] Comment on above: Performed By: #### G TT3P #### [facility] [address] [place] [address] Dr. Lilia Calvillo IG # 0.05 10e3/ul Critically high 0.00-0.03 [facility] Comment on above: Performed By: #### G TT3P #### [facility] [address] [place] [address] Dr. Lilia Calvillo IG % 0.5 % Normal 0.0-0.5 [facility] Comment on above: Performed By: #### G TT3P #### [facility] [address] [place] [address] Dr. Lilia Calvillo LYMPH # 2.0 103/ul Normal 1.2-3.8 [facility] Comment on above: Performed By: #### G TT3P #### [facility] [address] [place] [address] Dr. Lilia Calvillo Lymphocytes/100 WBC (Bld) 20.7 % Normal 20.5-60.0 [facility] Comment on above: Performed By: #### G TT3P #### [facility] [address] [place] [address] Dr. Lilia Calvillo MANUAL DIFF REQ NO Normal [facility] Comment on above: Performed By: #### G TT3P #### [facility] [address] [address] [address] Lilia Calvillo MCH (RBC) [Entitic mass] 28.7 pg Normal 26.7-34.0 [facility] Comment on above: Performed By: #### G TT3P #### [facility] [address] [place] [address] Dr. Lilia Calvillo MCHC (RBC) [Mass/Vol] 32.6 g/dL Normal 29.9-35.2 [facility] Comment on above: Performed By: #### G TT3P #### [facility] [address] [place] [address] Dr. Lilia Calvillo MCV (RBC) [Entitic vol] 88.1 fL Normal 81.0-99.0 [facility] Comment on above: Performed By: #### G TT3P #### [facility] [address] [place] [address] Dr. Lilia Calvillo MONO # 0.5 103/ul Normal 0.3-0.8 [facility] Comment on above: Performed By: #### G TT3P #### [facility] [address] [place] [address] Dr. Lilia Calvillo Monocytes/100 WBC (Bld) 5.7 % Normal 1.7-12.0 [facility] Comment on above: Performed By: #### G TT3P #### [facility] [address] [place] [address] Dr. Lilia Calvillo NEUT # 6.8 103/ul Critically high 1.4-6.5 [facility] Comment on above: Performed By: #### G TT3P #### [facility] [address] [address] [address] Lilia Calvillo Neutrophils/100 WBC (Bld) 72.3 % Normal 43.0-75.0 [facility] Comment on above: Performed By: #### G TT3P #### [facility] [address] [address] [address] Lilia Calvillo Platelet mean volume (Bld) [Entitic vol] 13.2 fL Normal 9.5-13.5 [facility] Comment on above: Performed By: #### G TT3P #### [facility] [address] [address] [address] Lilia Calvillo PLT 130 103/ul Critically low 150-450 [facility] Comment on above: Performed By: #### G TT3P #### [facility] [address] [place] [address] Dr. Lilia Calvillo RBC 4.11 106/ul Critically low 4.20-5.40 [facility] Comment on above: Performed By: #### G TT3P #### [facility] [address] [address] [address] Lilia Calvillo WBC 9.5 103/ul Normal 4.0-11.0 [facility] Comment on above: Performed By: #### G TT3P #### [facility] [address] [place] [address] Dr. Lilia Calvillo DRUG SCREEN RAPID (URINE)on 10-16-2021 AMP Negative Normal NEGATIVE [facility] Comment on above: Performed By: #### G TT3P #### [facility] [address] [place] [address] Dr. Lilia Calvillo BAR Negative Normal NEGATIVE [facility] Comment on above: Performed By: #### G TT3P #### [facility] [address] [place] [address] Dr. Lilia Calvillo BUP Negative Normal NEGATIVE [facility] Comment on above: Performed By: #### G TT3P #### [facility] [address] [place] [address] Dr. Lilia Calvillo BZO Negative Normal NEGATIVE [facility] Comment on above: Performed By: #### G TT3P #### [facility] [address] [place] [address] Dr. Lilia Calvillo LAWANDA Negative Normal NEGATIVE [facility] Comment on above: Performed By: #### G TT3P #### [facility] [address] [place] [address] Dr. Lilia Calvillo CUT-OFFS SEE BELOW Normal [facility] Comment on above: Result Comment: AMP (Amphetamine): 500ng/mL, BAR (Barbituates): 200 ng/mL, BZO (Benzodiazepines): 150 ng/mL, BUP (Buprenorphine): 10 ng/mL, LAWANDA (Cocaine): 150 ng/mL, mAMP (Methamphetamine): 500 ng/mL, MTD (Methadone): 200 ng/mL, OPI (Opiates): 100 ng/mL, OXY (Oxycodone): 100 ng/mL, PCP (Phencyclidine): 25 ng/mL, PPX (Propoxyphene): 300 ng/mL, THC (Cannabinoids): 50 ng/mL, TCA (Trycyclic Antidepressants): 300 ng/mL Performed By: #### G TT3P #### [facility] [address] [place] [address] Dr. Lilia Calvillo DRUG CUT HEADER DRUG CLASS TEST SYST EM CUT-OFF CONCENTRATIONS ARE FOLLOWS: Normal [facility] Comment on above: Performed By: #### G TT3P #### [facility] [address] [place] [address] Dr. Lilia Calvillo mAMP Negative Normal NEGATIVE [facility] Comment on above: Performed By: #### G TT3P #### [facility] [address] [place] [address] Dr. Lilia Calvillo MTD Negative Normal NEGATIVE [facility] Comment on above: Performed By: #### G TT3P #### [facility] [address] [place] [address] Dr. Lilia Calvillo OPI Negative Normal NEGATIVE [facility] Comment on above: Performed By: #### G TT3P #### [facility] [address] [place] [address] Dr. Lilia Calvillo OXY Negative Normal NEGATIVE [facility] Comment on above: Performed By: #### G TT3P #### [facility] [address] [place] [address] Dr. Lilia Calvillo PCP Negative Normal NEGATIVE [facility] Comment on above: Performed By: #### G TT3P #### [facility] [address] [place] [address] Dr. Lilia Calvillo PPX Negative Normal NEGATIVE [facility] Comment on above: Performed By: #### G TT3P #### [facility] [address] [place] [address] Dr. Lilia Calvillo TCA Negative Normal NEGATIVE [facility] Comment on above: Performed By: #### G TT3P #### [facility] [address] [place] [address] Dr. Lilia Calvillo THC Negative Normal NEGATIVE [facility] Comment on above: Performed By: #### G TT3P #### [facility] [address] [place] [address] Dr. Liila Calvillo TYPE AND SCREENon 10-16-2021 TYPE AND SCREEN Negative Normal [facility] Comment on above: Performed By: #### G TT3P #### [facility] [address] [place] [address] Dr. Lilia Calvillo UA (CLEAN/CATCH) DECK SCALER/MICRO I F IND.on 10-16-2021 Bilirubin Ql (U) Negative Normal NEGATIVE [facility] Comment on above: Performed By: #### U ACSIND #### [facility] [address] [place] [address] Dr. Lilia Calvillo Clarity (U) CLEAR Normal CLEAR [facility] Comment on above: Performed By: #### U ACSIND #### [facility] [address] [place] [address] Dr. Lilia Calvillo Color (U) LT. YELLOW Normal YELLOW [facility] Comment on above: Performed By: #### U ACSIND #### [facility] [address] [place] [address] Dr. Lilia Calvillo Glucose Ql (U) Negative Normal NEGATIVE [facility] Comment on above: Performed By: #### U ACSIND #### [facility] [address] [address] [address] Lilia Calvillo Hemoglobin Ql (U) Negative Normal NEGATIVE [facility] Comment on above: Performed By: #### U ACSIND #### [facility] [address] [address] [address] Lilia Calvillo Ketones Ql (U) Negative Normal NEGATIVE [facility] Comment on above: Performed By: #### U ACSIND #### [facility] [address] [address] [address] Lilia Calvillo LEUKOCYTES Negative Normal NEGATIVE [facility] Comment on above: Performed By: #### U ACSIND #### [facility] [address] [address] [address] Lilia Calvillo Nitrite Ql (U) Negative Normal NEGATIVE [facility] Comment on above: Performed By: #### U ACSIND #### [facility] [address] [address] [address] Lilia Calvillo pH (U) 6.5 [pH] Normal 5-9 [facility] Comment on above: Performed By: #### U ACSIND #### [facility] [address] [address] [address] Lilia Calvillo SPEC GRAVITY 1.020 Normal 1.005-<=1. 025 [facility] Comment on above: Performed By: #### U ACSIND #### [facility] [address] [address] [address] Lilia Calvillo UA PROTEIN Negative Normal NEGATIVE/ TRACE [facility] Comment on above: Performed By: #### U ACSIND #### [facility] [address] [address] [address] Lilia Calvillo UR MICRO IND NOT INDICATED Normal [facility] Comment on above: Performed By: #### U ACSIND #### [facility] [address] [place] [address] Dr. Lilia Calvillo Urobilinogen Qn (U) 0.2 {Ann'U}/dL Normal 0.2 - 1. 0 [facility] Comment on above: Performed By: #### U ACSIND #### [facility] [address] [place] [address] Dr. Lilia Calvillo Covid-19 PCR ([facility])on 09-20 SARS-CoV-2 (COVID-19) RNA TORRES+probe Ql (Unsp spec) Not detected Normal NOT DETECTED [facility] Comment on above: Result Comment: This test is not yet approved or cleared by the [place] FDA. When there are no FDA-approved or cleared tests available, and other criteria are met, FDA can make tests available under an emergency access mechanism called an Emergency Use Authorization (EUA). The EUA for this test is supported by the [employer] Developer of Health and Human Service's (HHS's) declaration [...] SARS-CoV-2. Performed By: #### G TT3P #### [facility] [address] [place] [address] Dr. Lilia Calvillo CHLAMYDIA/GONOCOCCUS TORRES (SW AB/URINE/PAPon 09-27-2021 Chlamydia trachomatis, TORRES Negative Normal Negative [facility] Comment on above: Performed By: #### C T/NGNA #### [facility] [address] [place] [address] Dr. Lilia Calvillo Neisseria gonorrhoeae, TORRES Negative Normal Negative [facility] Comment on above: Performed By: #### C T/NGNA #### [facility] [address] [place] [address] Dr. Lilia Calvillo GROUP B STREP CULTUREon S. agalactiae Ag Ql (Unsp spec) Culture Observations: NEGATIVE FOR GROUP B STREPTOCOCCUS. Normal [facility] Comment on above: Performed By: #### G TT3P #### [facility] [address] [address] [address] Lilia Calvillo GTT 3 HR PREGon 07-21-2021 Glucose [Mass/Vol] 92 mg/dL Normal 74-106 [facility] Comment on above: Performed By: #### G TT3P #### [facility] [address] [address] [address] Lilia Calvillo Glucose [Mass/Vol] 193 mg/dL Normal [facility] Comment on above: Performed By: #### G TT3P #### [facility] [address] [address] [address] Lilia Calvillo Glucose [Mass/Vol] 146 mg/dL Normal [facility] Comment on above: Performed By: #### G TT3P #### [facility] [address] [place] [address] Dr. Lilia Calvillo Glucose [Mass/Vol] 123 mg/dL Normal [facility] Comment on above: Performed By: #### G TT3P #### [facility] [address] [address] [address] Lilia Calvillo GLUCOSE - 1HRon 07-09-2021 Glucose [Mass/Vol] 167 mg/dL Critically high 74-106 [facility] Comment on above: Performed By: #### G LU1HR #### [facility] [address] [place] [address] Dr. Lilia Calvillo HEMOGRAM AND PLATELon 2021 Hematocrit (Bld) [Volume fraction] 33.9 % Critically low 36.0-48.0 [facility] Comment on above: Performed By: #### H H #### [facility] [address] [address] [address] Lilia Calvillo Hemoglobin (Bld) [Mass/Vol] 10.9 g/dL Critically low 12.0-16.0 [facility] Comment on above: Performed By: #### H H #### [facility] [address] [address] [address] Lilia Calvillo MCH (RBC) [Entitic mass] 29.9 pg Normal 26.7-34.0 [facility] Comment on above: Performed By: #### H H #### [facility] [address] [address] [address] Lilia Calvillo MCHC (RBC) [Mass/Vol] 32.2 g/dL Normal 29.9-35.2 [facility] Comment on above: Performed By: #### H H #### [facility] [address] [address] [address] Lilia Calvillo MCV (RBC) [Entitic vol] 93.1 fL Normal 81.0-99.0 [facility] Comment on above: Performed By: #### H H #### [facility] [address] [address] [address] Lilia Calvillo PLT 153 103/ul Normal 150-450 [facility] Comment on above: Performed By: #### H H #### [facility] [address] [address] [address] Lilia Calvillo RBC 3.64 106/ul Critically low 4.20-5.40 [facility] Comment on above: Performed By: #### H H #### [facility] [address] [address] [address] Lilia Calvillo WBC 8.4 103/ul Normal 4.0-11.0 [facility] Comment on above: Performed By: #### H H #### [facility] [address] [address] [address] Lilia Calvillo US PREG ANATOMY SINGLEon [...] by ultrasound, 40% by expected EDC; FL/AC: 0.210538 FL/BPD: 0.205598 HC/AC: 1.264331 GESTATIONAL AGE: Age by EDC: 20 weeks 0 days ALINA by EDC: 10/23/2021 Age by current US: 19 weeks 4 days ALINA by current US: 10/26/2021 IMPRESSION: Normal anatomy scan *Reference: [employer] Practice Guideline for the performance of Obstetric Ultrasound Examinations, December 20, 2006. Electronically authenticated by: DESTINY BAILEY Date: 2021-06-05 16:17 Normal [facility] AFP MATERNAL FOR SPINA BIFID Aon 05-30-2021 AFP MoM 1.33 Normal [facility] Comment on above: Performed By: #### A FPMAT #### [facility] [address] [address] [address] Lilia Calvillo AFP Value 63.0 ng/mL Normal [facility] Comment on above: Performed By: #### A FPMAT #### [facility] [address] [address] [address] Lilia Calvillo AFP, Serum for Spina Bifida Report Normal [facility] Comment on above: Performed By: #### A FPMAT #### [facility] [address] [address] [address] Lilia Calvillo Comment Comment Normal [facility] Comment on above: Result Comment: Hamlet Sinclair, Ph.D., [facility] Director . References: Available Upon Request. . Multiples Of Median Cutoffs For AFP Elevations Sandoval 2.5 Black 2.8 IDD 2.0 Twins 4.5 Abbreviation Definitions IDD - Insulin Dep Diabetes OSBR - Open Spina Bifida Risk . For further inquiries contact [facility] at [phone]. Performed By: #### A FPMAT #### [facility] [address] [place] [address] Dr. Lilia Lyn Age Collection Date 18.9 weeks Normal [facility] Comment on above: Performed By: #### A FPMAT #### [facility] [address] [place] [address] Dr. Lilia Calvillo Gestat, Age Based on Ultrasound Normal [facility] Comment on above: Result Comment: 18.9 on 05/28/2021 Recalculations are not recommended when gestational dating by LMP and ultrasound are within 10 days. Performed By: #### A FPMAT #### [facility] [address] [place] [address] Dr. Lilia Calvillo Insulin Dep Diabetes No Normal [facility] Comment on above: Performed By: #### A FPMAT #### [facility] [address] [place] [address] Dr. Lilia Calvillo Interpretation Comment Normal [facility] Comment on above: Result [...] Customer Services to discuss available options. The [employer] recommends amniocentesis be offered to women age 35 and older. Performed By: #### A FPMAT #### [facility] [address] [place] [address] Dr. Lilia Calvillo [age] Normal [facility] Comment on above: Performed By: #### A FPMAT #### [facility] [address] [place] [address] Dr. Lilia Calvillo Multiple Gestation No Normal [facility] Comment on above: Performed By: #### A FPMAT #### [facility] [address] [id number] Lilia Calvillo OSBR Risk 1 [place] [address] Normal [facility] Comment on above: Performed By: #### A FPMAT #### [facility] [address], [place] [address] Dr. Lilia Calvillo PDF . Normal [facility] Comment on above: Result Comment: This test was developed and its performance characteristics determined by [facility]. It has not been cleared or approved by the Food and Drug Administration. Performed By: #### A FPMAT #### [facility] [address], [place] [address] Dr. Lilia Calvillo Race Normal [facility] Comment on above: Performed By: #### A FPMAT #### [facility] [address] [id number] Lilia Calvillo Test Results: Negative Normal [facility] Comment on above: Performed By: #### A FPMAT #### [facility] [address] [id number] Lilia Calvillo Q - CULTURE,URINE,ROUTINEon 05-21-2021 CULTURE, URINE, ROUTINE SEE NOTE Normal [facility] Comment on above: Order Comment: [facility] performed at: [facility], [facility] [employer] [facility], [address] [place] [address], [address] [place] [address], [id number], [employer]: Wilber Wilson MD [facility] Collection Date/Time: [facility] Results Received Date/Time: [facility] Reported Date/Time: Result Comment: CULT URE, URINE, ROUTINE Micro Number: [id number] Test Status: Final Specimen Source: Urine Specimen Quality: Adequate Result: Mixed genital yair isolated. These superficial bacteria are not indicative of a urinary tract infection. No further organism identification is warranted on this specimen. If clinically indicated, recollect clean-catch, mid-stream urine and transfer immediately to Urine Culture Transport Tube. Performed By: #### 3 020X, 6304R, %SBCULI #### [facility] [address] [place] [address] Q - UR CULT [id number] 2021 REFLEXIVE URINE CULTURE SEE NOTE Normal [facility] Comment on above: Order Comment: [facility] performed at: [employer] [employer] [facility], [address] [facility], [address] [place] [address], [address] [place] [address], [employer]: Wilber Wilson MD [facility] Collection Date/Time: [facility] Results Received Date/Time: [facility] Reported Date/Time: Result Comment: CULT URE INDICATED - RESULTS TO FOLLOW Performed By: #### 3 020X, 6304R, %SBCULI #### [facility] [address] [place] [address] Q - URINALYSIS,COMPLETE,WITH REFLEX TO CULTUREon 05-21-2021 Appearance (U) TURBID Abnormal CLEAR [facility] Comment on above: Order Comment: [facility] performed at: [facility], [address] [facility], [address] [place] [address], [address] [place] [address], [employer]isher: Wilber Wilson MD [facility] Collection Date/Time: [facility] Results Received Date/Time: [facility] Reported Date/Time: Performed By: #### 3 020X, 6304R, %SBCULI #### [facility] [address] [place] [address] BACTERIA MODERATE Abnormal NONE SEEN [facility] Comment on above: Order Comment: [facility] performed at: [facility] [facility], [address] , [address] [place] [address], [address] [place] [address], [employer]isher: Wibler Wilson MD [facility] Collection Date/Time: [facility] Results Received Date/Time: [facility] Reported Date/Time: Performed By: #### 3 020X, 6304R, %SBCULI #### [facility] [address] [place] [address] Bilirubin Ql (U) Negative Normal NEGATIVE [facility] Comment on above: Order Comment: [facility] performed at: [facility] [facility], [address] , [address] [place] [address], [address] [place] [address], [employer]isher: Wilber Wilson MD [facility] Date/Time: [facility] Results Received Date/Time: [facility] Reported Date/Time: Performed By: #### 3 020X, 6304R, %SBCULI #### [facility] [address] [place] [address] Color (U) YELLOW Normal YELLOW [facility] Comment on above: Order Comment: [facility] performed at: [employer] [facility], [address] , [address] [place] [address], [address] [place] [address], [employer]: Wilber Wilson MD [facility] Date/Time: [facility] Results Received Date/Time: [facility] Reported Date/Time: Performed By: #### 3 020X, 6304R, %SBCULI #### [facility] [address] [place] [address] Glucose Ql (U) Negative Normal NEGATIVE [facility] Comment on above: Order Comment: [facility] Testing performed at: [facility], [address] , [address] [place] [address], [address] [place] [address], Jet Blade Polisher: Wilber Wilson MD [facility] Collection Date/Time: [facility] Results Received Date/Time: [facility] Reported Date/Time: Performed By: #### 3 020X, 6304R, %SBCULI #### [facility] Default [address] [place] [address] HYALINE CAST NONE SEEN Normal NONE SEEN [facility] Surgical Dressing Maker Comment on above: Order Comment: [facility] Testing performed at: [employer], [facility], [address] , [address] [place] [address], [address] [place] [address], Jet Blade Polisher: Wilber Wilson MD [facility] Collection Date/Time: [facility] Results Received Date/Time: [facility] Reported Date/Time: Performed By: #### 3 020X, 6304R, %SBCULI #### [facility] [address] [place] [address] Ketones Ql (U) TRACE Abnormal NEGATIVE [facility] Surgical Dressing Maker Comment on above: Order Comment: [facility] Testing performed at: [employer], [facility], [address] , [address] [place] [address], [address] [place] [address], Jet Blade Polisher: Wilber Wilson MD [facility] Collection Date/Time: [facility] Results Received Date/Time: [facility] Reported Date/Time: Performed By: #### 3 020X, 6304R, %SBCULI #### [facility] [address] [place] [address] Leukocyte esterase Test strip Ql (U) 2+ Abnormal NEGATIVE [facility] Surgical Dressing Maker Comment on above: Order Comment: [facility] Testing performed at: [employer], [facility], [address] , [address] [place] [address], [address] [place] [address], Jet Blade Polisher: Wilber Wilson MD [facility] Collection Date/Time: [facility] Results Received Date/Time: [facility] Reported Date/Time: Performed By: #### 3 020X, 6304R, %SBCULI #### [facility] [address] [place] [address] Nitrite Ql (U) Negative Normal NEGATIVE [facility] Surgical Dressing Maker Comment on above: Order Comment: [facility] Testing performed at: [employer], [facility], [address] , [address] [place] [address], [address] [place] [address], Jet Blade Polisher: Wilber Wilson MD [facility] Collection Date/Time: [facility] Results Received Date/Time: [facility] Reported Date/Time: Performed By: #### 3 020X, 6304R, %SBCULI #### [facility] [address] [place] [address] OCCULT BLOOD Negative Normal NEGATIVE [facility] Surgical Dressing Maker Comment on above: Order Comment: [facility] Testing performed at: [employer], [facility], [address] [facility], [address] [place] [address], [phone], Jet Blade Polisher: Wilber Wilson MD [facility] Collection Date/Time: [facility] Results Received Date/Time: [facility] Reported Date/Time: Performed By: #### 3 020X, 6304R, %SBCULI #### [facility] [address] [place] [address] pH (U) 5.5 [pH] Normal 5.0-8.0 [facility] Surgical Dressing Maker Comment on above: Order Comment: [facility] Testing performed at: [employer], [facility], [address] [facility], [address] [place] [address], [phone], Jet Blade Polisher: Wilber Wilson MD [facility] Collection Date/Time: [facility] Results Received Date/Time: [facility] Reported Date/Time: Performed By: #### 3 020X, 6304R, %SBCULI #### [facility] [address] [place] [address] Protein Ql (U) Negative Normal NEGATIVE [facility] Surgical Dressing Maker Comment on above: Order Comment: [facility] Testing performed at: [employer], [facility], [address] [facility], [address] [place] [address], [phone], Jet Blade Polisher: Wilber Wilson MD [facility] Collection Date/Time: [facility] Results Received Date/Time: [facility] Reported Date/Time: Performed By: #### 3 020X, 6304R, %SBCULI #### [facility] Default [address] [place] [address] RBC NONE SEEN Normal < OR = 2 [facility] Surgical Dressing Maker Comment on above: Order Comment: [facility] Testing performed at: [facility], [facility], [address] [facility], [address] [place] [address], [address] [place] [address], Jet Blade Polisher: Wilber Wilson MD [facility] Collection Date/Time: [facility] Results Received Date/Time: [facility] Reported Date/Time: Performed By: #### 3 020X, 6304R, %SBCULI #### [facility] [address] [place] [address] Specific gravity (U) [Rel density] 1.029 Normal 1.001-1.03 5 [facility] Surgical Dressing Maker Comment on above: Order Comment: [facility] Testing performed at: [employer], [facility], [address] [place] [address], [address] [place] [address], [address] [place] [address], Jet Blade Polisher: Wilber Wilson MD [facility] Collection Date/Time: [facility] Results Received Date/Time: [facility] Reported Date/Time: Performed By: #### 3 020X, 6304R, %SBCULI #### [facility] [address] [place] [address] SQUAMOUS EPITHELIAL CELLS 10-20 Abnormal < OR = 5 [facility] Specialist Comment on above: Order Comment: [facility] Testing performed at: [employer], [facility], [address] [place] [address], [address] [place] [address], [address] [place] [address], Jet Blade Polisher: Wilber Wilson MD [facility] Collection Date/Time: [facility] Results Received Date/Time: [facility] Reported Date/Time: Performed By: #### 3 020X, 6304R, %SBCULI #### [facility] Default [address] [place] [address] WBC 20-40 Abnormal < OR = 5 [facility] Surgical Dressing Maker Comment on above: Order Comment: [facility] Testing performed at: [employer], [facility], [address] [place] [address], [address] [place] [address], [address] [place] [address], Jet Blade Polisher: Wilber Wilson MD [facility] Collection Date/Time: [facility] Results Received Date/Time: [facility] Reported Date/Time: Performed By: #### 3 020X, 6304R, %SBCULI #### [facility] Default [address] [place] [address] US PREG LIMITEDon 05-09-2021 US PREG LIMITED [...] BAILEY OTERO Date: 2021-05-09 10:39 Normal [facility] HEPATITIS C VIRUS AB W/ REFL EX QUANTon 04-08-2021 HCV AB >11.0 Critically high 0.0-0.9 [facility] Comment on above: Result Comment: . Performed By: #### H CVPCRR #### [facility] [address] [place] [address] Dr. Lilia Calvillo HCV log10 Normal [facility] Comment on above: Performed By: #### H CVPCRR #### [facility] [address] [address] [address] Lilia Calvillo Hep C Quantitation Not detected Normal [facility] Comment on above: Performed By: #### H CVPCRR #### [facility] [address] [address] [address] Lilia Calvillo Interpretation Comment Normal [facility] Comment on above: Result Comment: Posi tive HCV antibody screen without the presence of HCV RNA is consistent with a resolved past infection or a false positive HCV antibody. Consider repeat testing after one month. Performed By: #### H CVPCRR #### [facility] [address] [address] [address] Lilia Calvillo Test Information: Comment Normal [facility] Comment on above: Result Comment: The quantitative range of this assay is 15 IU/mL to 100 million IU/mL. Performed By: #### H CVPCRR #### [facility] [address] [address] [address] Lilia Calvillo RUBI BOX TEST PT SEND OUTo n 04-03-2021 SENT TO REF LAB 04/03/2021 Normal [facility] Comment on above: Performed By: #### G TT3P #### [facility] [address] [address] [address] Lilia Calvillo US PREG TVon 04-03-2021 [...] BAILEY OTERO Date: 2021-04-03 14:48 Normal [facility] Drug Screen Comprehensive Ur ineon 04-23-2017 Adulterants Negative Normal [facility] Comment on above: Result Comment: Adul terant [...] was developed and the performance characteristicsdetermined by [facility]. Thisconfirmation testing has not been cleared or approvedby the FDA. The laboratory is regulated under CLIA asqualified to perform high-complexity testing. This testis used for patient testing purposes. It should not beregarded as investigational or for research.Test performed at [facility],[address] [place] [address] Emrnzcw G. Finn, MD - Police Liaison Officer Performed By: #### 6 9742-5, 49695-7, 27609-7, 11745-6, 84202-4, 28229-5, 08665-4, 97037-4 ####[facility] [address] [place], [place]#### 73104-3, 75242-5 ####[facility], [facility] [address] [place], [place] Creatinine Urine - Toxicology 48 mg/dL Normal [facility] Comment on above: Performed By: #### 6 9742-5, 79911-3, 61728-5, 89489-0, 00493- 4, 79827-6, 69005-9, 81843-6 ####[facility] [address] [place], [place]#### 21363-0, 90211-0 ####[facility], [facility] [address], [place] Drug Scr Urine SeeBelow Normal [facility] Comment on above: Result Comment: Drug s Detected in Urine: THC Cotinine Caffeine All drugs identified should be considered presumptive positives unless they have been identified by an alternate chemical method. These drugs have been qualitatively identified by either or both immunoassay or gas chromatography/mass spectrometry (GC/MS) Performed By: #### 6 9742-5, 30071-9, 11409-7, 30462-5, 96604-5, 32786-3, 89792-4, 87075-0 ####[facility] [address], [place]#### 25134-8, 74533-1 ####[facility], [address], [place] Hepatitis C RNA (PCR) Quanti tativeon 04-23-2017 Hepatitis C PCR Log IU/ml 3.34 see fn High <1.08 [facility] Comment on above: Result Comment: Unit s: Log (10) IU/mLThis procedure utilizes a real-time polymerase chainreaction test from [employer]. The amplificationtarget is a conserved region of [...] resultdoes not rule out infection.Test performed at [facility],[address] [place] [address] Noyujvv G. Finn, MD - Police Liaison Officer Performed By: #### 6 9742-5, 54265-7, 38405-0, 11608-1, 01785-0, 61531-8, 28730-0, 47617-4 ####[facility] [address], [place]#### 51583-2, 85021-1 ####[facility], [address], [place] Hepatitis C RNA PCR seefn High <12 [facility] Comment on above: Result Comment: Resu lt: 2,182 Performed By: #### 6 9742-5, 96088-0, 05793-2, 84516-4, 94246-2, 82500-6, 69260-6, 20016-2 ####[facility] [address], [place]#### 19909-8, 48230-6 ####[facility], [address], [place] Hepatitis C Virus RNA Ql DETECTED Abnormal seefn [facility] Comment on above: Result Comment: Ref Range: Not detected Performed By: #### 6 9742-5, 91970-7, 52263-2, 11195-7, 97623-4, 31399-3, 29642-5, 05166-2 ####[facility] [address], [place]#### 51299-6, 37352-4 ####[facility], [address], [place] Hepatitis A Antibody Totalon 04-22-2017 Hepatitis A Antibody Negative Normal Negative [facility] Comment on above: Result Comment: Test performed at [facility],[address] [place] [address] Nzxvfsq G. Finn, MD - Police Liaison Officer Performed By: #### 6 9742-5, 15169-6, 77303-5, 48360-3, 05231-0, 73065-1, 40532-6, 19491-8 ####[facility] [address], [place]#### 08287-4, 76212-5 ####[facility], [address], [place] Hepatitis B Core Antibody Ig Mon 04-21-2017 Interpretation and review of laboratory results Negative Normal NEGATIVE [facility] Comment on above: Result Comment: Hepa titis [...] POS VACCINATION Performed By: #### 6 9742-5, 73240-9, 25691-8, 44394-4, 00901-8, 24584-9, 75223-1, 49245-2 ####[facility] [address] [place], [place]#### 25383-6, 77549-4 ####[facility], [address], [place] Hepatitis C Antibodyon 04-21 Hepatitis C Antibody Positive Abnormal NEGATIVE [facility] Comment on above: Result Comment: For [...] longer available. Performed By: #### 6 9742-5, 46105-8, 37999-6, 80010-1, 88968-0, 21819-6, 23410-5, 80256-3 ####[facility] [address] [place], [place]#### 15011-4, 13371-3 ####[facility], [address], [place] Hepatitis C Antibody Positive Abnormal NEGATIVE [facility] Comment on above: Result Comment: For [...] longer available. Performed By: #### 6 9742-5, 28070-8, 62498-4, 26601-9, 62861-6, 07478-3, 57711-7, 71270-4 ####[facility] [address] [place], [place]#### 74422-6, 40725-3 ####[facility], [facility] [address] [place], [place] CBC with Differentialon 03-24 Basophils Auto #/vol (Bld) 0.00 thou/mcL Normal 0.00-0.20 [facility] Comment on above: Performed By: #### 6 9742-5, 88396-4, 96586-5, 03260-9, 89256- 4, 73334-2, 90703-7, 38269-3 ####[facility] [address] [place], [place]#### 60536-2, 57839-3 ####[facility], [facility] [address] [place], [place] Basophils/100 WBC Auto (Bld) 0.2 % Normal 0.0-2.0 [facility] Comment on above: Performed By: #### 6 9742-5, 04859-1, 68138-5, 05503-2, 41513- 4, 06028-9, 54776-2, 02948-8 ####[facility] [address] [place], [place]#### 04773-3, 07441-9 ####[facility], [facility]. [address] [place], [place] Eosinophils 0.10 thou/mcL Normal 0.00-0.70 [facility] Comment on above: Performed By: #### 6 9742-5, 60579-2, 85270-0, 13523-8, 33384- 4, 05501-8, 04304-6, 16581-6 ####[facility] [address] [place], [place]#### 75786-6, 13765-3 ####[facility], [address], [place] Eosinophils/100 leukocytes 1.8 % Normal 0.0-7.0 [facility] Comment on above: Performed By: #### 6 9742-5, 16773-6, 07908-7, 07875-3, 78006- 4, 71359-2, 48445-8, 33178-3 ####[facility] [address] [place], [place]#### 85794-9, 03471-4 ####[facility], [facility] [address], [place] Erythrocyte distribution width Auto Ratio (RBC) 13.7 % Normal 11.0-14.8 [facility] Comment on above: Performed By: #### 6 9742-5, 26332-8, 85754-8, 03860-9, 61929- 4, 46931-1, 25975-5, 81525-3 ####[facility] [address] [place], [place]#### 20829-4, 49889-0 ####[facility], [facility] [address], [place] Erythrocytes (RBC) 4.15 million/mcL Normal 3.80-5.10 [facility] Comment on above: Performed By: #### 6 9742-5, 96037-0, 24056-0, 16290-2, 28750- 4, 33960-4, 57696-0, 91200-6 ####[facility] [address], [place]#### 35365-4, 18367-0 ####[facility], [facility] [address], [place] Hematocrit (HCT) 37.0 % Normal 35.0-45.0 [facility] Comment on above: Performed By: #### 6 9742-5, 81370-8, 73570-1, 81537-4, 22357- 4, 04283-5, 62741-3, 60621-4 ####[facility] [address] [place], [place]#### 85410-0, 42202-9 ####[facility], [address], [place] Hemoglobin mass conc (Bld) 12.2 g/dL Normal 12.0-16.0 [facility] Comment on above: Performed By: #### 6 9742-5, 54133-1, 59763-8, 63788-8, 32153- 4, 46022-7, 87030-7, 38325-4 ####[facility] [address] [place], [place]#### 71953-9, 34294-8 ####[facility], [address], [place] Lymphocytes 1.80 thou/mcL Normal 1.00-4.80 [facility] Comment on above: Performed By: #### 6 9742-5, 32877-6, 43047-3, 40505-2, 12652- 4, 81504-7, 60515-6, 54092-4 ####[facility] [address] [place], [place]#### 96352-8, 94940-6 ####[facility], [address], [place] Lymphocytes/100 leukocytes 34.6 % Normal 22.0-44.0 [facility] Comment on above: Performed By: #### 6 9742-5, 01995-3, 45226-6, 22068-9, 71735- 4, 60702-5, 81291-9, 45102-8 ####[facility] [address] [place], [place]#### 23819-2, 09760-8 ####[facility], [address], [place] MCH 29.4 Picograms Normal 27.0-34.0 [facility] Comment on above: Performed By: #### 6 9742-5, 32890-7, 92034-2, 86918-3, 86447- 4, 99083-5, 84198-5, 38833-6 ####[facility] [address] [place], [place]#### 93826-4, 36108-2 ####[facility], [address], [place] MCHC mass conc (RBC) 33.0 g/dL Normal 32.0-36.0 [facility] Comment on above: Performed By: #### 6 9742-5, 84359-3, 35822-8, 16974-8, 34920- 4, 65724-5, 80518-3, 20085-0 ####[facility] [address] [place], [place]#### 17924-9, 76006-4 ####[facility], [address], [place] MCV 89.2 fL Normal 80.0-97.0 [facility] Comment on above: Performed By: #### 6 9742-5, 21809-3, 85344-3, 08328-4, 55361- 4, 39199-2, 27829-0, 42243-1 ####[facility] [address] [place], [place]#### 24501-0, 71887-3 ####[facility], [address], [place] Monocytes 0.30 thou/mcL Normal 0.00-0.90 [facility] Comment on above: Performed By: #### 6 9742-5, 98122-1, 90692-4, 96272-9, 70580- 4, 01559-1, 44748-8, 21624-9 ####[facility] [address] [place], [place]#### 82893-5, 37878-8 ####[facility], [address], [place] Monocytes/100 leukocytes 6.0 % Normal 0.0-12.0 [facility] Comment on above: Performed By: #### 6 9742-5, 48251-4, 17835-8, 19900-7, 72749- 4, 55976-4, 24607-3, 22991-6 ####[facility] [address] [place], [place]#### 44438-6, 15520-6 ####[facility], [facility] [address], [place] Neutrophils 3.00 thou/mcL Normal 1.80-7.70 [facility] Comment on above: Performed By: #### 6 9742-5, 07090-8, 80373-2, 02426-4, 96041- 4, 65856-3, 54639-1, 66825-4 ####[address] [place], [place]#### 61657-5, 49813-4 ####[facility], [facility] [address], [place] Neutrophils/100 WBC Auto (Bld) 57.4 % Normal 40.0-70.0 [facility] Comment on above: Performed By: #### 6 9742-5, 21972-8, 31497-9, 63656-3, 41193- 4, 51870-9, 65221-1, 56907-0 ####[facility] [address] [place], [place]#### 57898-5, 94928-0 ####[facility], [facility] [address], [place] Platelet mean volume (PMV) 11.9 fL Normal 6.2-12.1 [facility] Comment on above: Performed By: #### 6 9742-5, 26668-5, 28321-3, 00220-2, 87260- 4, 79047-7, 44044-1, 75689-7 ####[facility] [address] [place], [place]#### 38830-3, 07219-4 ####[facility], [address], [place] Platelets 173 thou/mcL Normal 142-424 [facility] Comment on above: Performed By: #### 6 9742-5, 33806-7, 75004-7, 85688-5, 68548- 4, 79494-0, 18534-6, 26464-2 ####[facility] [address] [place], [place]#### 55017-9, 63413-0 ####[facility], [address], [place] WBC (Leukocytes) 5.2 thou/mcL Normal 4.6-10.2 [facility] Comment on above: Performed By: #### 6 9742-5, 79685-1, 77504-5, 92945-7, 49708- 4, 89889-4, 78590-4, 78226-0 ####[facility] [address] [place], [place]#### 85404-9, 11646-7 ####[facility], [facility] [address], [place] Comprehensive Metabolic Pane blanquita 04-20-2017 Alanine aminotransferase (ALT) 37 Units/L Normal 14-63 [facility] Comment on above: Performed By: #### 6 9742-5, 65825-5, 72252-2, 38192-2, 41610- 4, 23476-2, 60636-6, 41841-8 ####[facility] [address], [place]#### 37292-7, 96618-1 ####[facility], [address], [place] Albumin 4.2 g/dL Normal 3.5-4.8 [facility] Comment on above: Performed By: #### 6 9742-5, 92505-7, 81199-1, 59519-8, 88443- 4, 10778-8, 56353-5, 18389-7 ####[facility] [address], [place]#### 26675-8, 87127-3 ####[facility], [address] [place], [place] Alkaline phosphatase (ALP) 45 Units/L Normal 32-91 [facility] Comment on above: Performed By: #### 6 9742-5, 58194-0, 58153-3, 35174-2, 90193- 4, 37411-7, 96842-4, 58984-2 ####[facility] [address] [place], [place]#### 17426-7, 09163-9 ####[facility], [address], [place] Anion gap 10.0 mmol/L Normal 6.0-18.0 [facility] Comment on above: Result Comment: KADEN CHAMBERS NOTE:The calculated Anion Gap(AGAP) does not include Potassium. Performed By: #### 6 9742-5, 90718-9, 80311-3, 61702-2, 21425-6, 40285-3, 86431-8, 32240-0 ####[facility] [address] [place], [place]#### 19973-2, 99247-6 ####[facility], [address], [place] Aspartate aminotransferase (AST) 29 Units/L Normal 15-41 [facility] Comment on above: Performed By: #### 6 9742-5, 41271-8, 99735-6, 82635-9, 46339- 4, 89548-3, 99230-6, 59397-6 ####[facility] [address] [place], [place]#### 06599-6, 34534-7 ####[facility], [address], [place] Bilirubin (total) 0.5 mg/dL Normal 0.3-1.2 [facility] Comment on above: Performed By: #### 6 9742-5, 04982-9, 69710-0, 13185-0, 93429- 4, 84811-8, 76317-8, 21871-8 ####[facility] [address], [place]#### 34186-0, 98064-2 ####[facility], [address], [place] Calcium 9.4 mg/dL Normal 8.9-10.3 [facility] Comment on above: Performed By: #### 6 9742-5, 36897-8, 51979-8, 85128-9, 24192- 4, 67795-3, 61055-8, 55721-8 ####[facility] [address] [place], [place]#### 27281-4, 58345-7 ####[facility], [address], [place] Chloride 102 mmol/L Normal 98-107 [facility] Comment on above: Performed By: #### 6 9742-5, 17445-6, 63643-9, 97334-2, 29045- 4, 27537-9, 32676-3, 60117-3 ####[facility] [address] [place], [place]#### 01580-3, 29769-9 ####[facility], [address], [place] CO2 26 mmol/L Normal 22-32 [facility] Comment on above: Performed By: #### 6 9742-5, 12346-9, 79109-1, 14879-5, 13974- 4, 53449-2, 01652-7, 57797-0 ####[facility] [address], [place]#### 35049-0, 22289-7 ####[facility], [address] [address], [place] Creatinine 0.67 mg/dL Normal 0.60-1.30 [facility] Comment on above: Performed By: #### 6 9742-5, 39961-7, 43525-6, 95431-3, 30653- 4, 93558-5, 39968-0, 50253-9 ####[facility] [address], [place]#### 11898-0, 32693-0 ####[facility], [address], [place] Glucose mass conc 119 mg/dL High 70-110 [facility] Comment on above: Performed By: #### 6 9742-5, 56139-1, 90984-4, 50634-7, 79486- 4, 86959-1, 75008-3, 86487-3 ####[facility] [address] [place], [place]#### 70963-1, 64185-1 ####[facility], [address], [place] Potassium molar conc 4.2 mmol/L Normal 3.6-5.1 [facility] Comment on above: Performed By: #### 6 9742-5, 85109-7, 34287-6, 08433-7, 40776- 4, 08660-5, 79025-5, 34747-3 ####[facility] [address] [place], [place]#### 85199-5, 65799-0 ####[facility], [address], [place] Protein 6.7 g/dL Normal 6.1-7.9 [facility] Comment on above: Performed By: #### 6 9742-5, 12952-9, 13075-6, 02606-5, 57324- 4, 91631-6, 08378-0, 75142-9 ####[facility] [address] [place], [place]#### 03353-0, 09219-8 ####[facility], [address], [place] Sodium 138 mmol/L Normal 136-145 [facility] Comment on above: Performed By: #### 6 9742-5, 74334-7, 93756-4, 36958-0, 63014- 4, 24419-1, 13762-0, 72593-0 ####[facility] [address] [place], [place]#### 31480-6, 38747-2 ####[facility], [address] [place], [place] Urea nitrogen 9 mg/dL Normal 8-20 [facility] Comment on above: Performed By: #### 6 9742-5, 52579-4, 89718-3, 90104-5, 91331- 4, 90095-3, 35730-2, 93898-8 ####[facility] [address], [place]#### 68757-6, 25050-0 ####[facility], [address], [place] Culture Urine + Susceptibili tyon 04-20-2017 Urine culture, bacteria [facility] MicrobiologyPROCEDURE: Culture Urine + SusceptibilitySOURCE: Urine BODY SITE:COLLECTED DATE/TIME: 04/20/2017 09:07 EST RECEIVED DATE/TIME: 04/20/2017 09:07 ESTSTART DATE/TIME: 04/20/2017 09:07 EST FREE TEXT SOURCE: URINE-URINEINTERFACED REPORTSFinal Report []Verified Date/Time/Personnel: 04/21/2017 18:58 EST CONTRIBUTOR_SYSTEM, CO_PNNO GROWTH Normal [facility] Comment on above: Performed By: #### 6 9742-5, 44630-8, 41259-8, 36616-7, 55829- 4, 64253-5, 28422-0, 59849-4 ####[facility] [address], [place]#### 16866-3, 55327-0 ####[facility], [address], [place] GFRaaon 04-20-2017 eGFR (black) mL/min/{1.73_m2} Normal [facility] Comment on above: Result Comment: The MDRD equation has not been validated for those over 70 years, women, patients with serious co-morbid conditions, or with extremes of bodysize, muscle mass of nutritional status. Performed By: #### 6 9742-5, 23321-7, 51027-6, 94119-4, 40007-5, 25707-9, 81568-7, 99382-5 ####[facility] [address], [place]#### 12170-2, 04123-9 ####[facility], [address], [place] GFRbbon 04-20-2017 eGFR (non-black) mL/min/{1.73_m2} Normal [facility] Comment on above: Performed By: #### 6 9742-5, 08799-8, 47034-1, 03644-9, 49515- 4, 14915-1, 12784-6, 37477-7 ####[facility] [address], [place]#### 29005-2, 40508-4 ####[facility], [address], [place] HCG Quantitativeon 8 HCG Qn m[IU]/mL Normal [facility] Comment on above: Result Comment: Preg edna [...] immunoassay method. Performed By: #### 6 9742-5, 86686-9, 81400-9, 58963-7, 71310-6, 07851-8, 15170-5, 90852-0 ####[facility] [address], [place]#### 21531-7, 94509-5 ####[facility], [address], [place] HIV 1 Antibodyon 04-20-2017 HIV Screen NONREAC Normal NONREAC [facility] Comment on above: Result Comment: This is a 4th generation test (P24 AG,HIV-1 AB, HIV-2 AB)Specimens with preliminary reactive results will be confirmed by HIV1/2Differentiation test (Infrafone). THE IDENTITY OF A PERSON ON WHOM [...] equitable relief. Performed By: #### 6 9742-5, 41278-4, 77644-8, 75827-2, 28273-4, 60360-8, 54682-3, 98402-8 ####[facility] [address], [place]#### 85077-5, 44898-0 ####[facility], [address], [place], [place] Hepatitis A (HAAb) Antibody IgMon 04-20-2017 Hepatitis A (HAAb) Antibody IgM Negative Normal NEGATIVE [facility] Comment on above: Result Comment: Hepa titis A Virus Antibody-IgM Specific. Performed By: #### 6 9742-5, 52380-6, 01348-9, 24174-6, 80407-8, 56914-4, 08817-5, 14908-2 ####[facility] [address], [place]#### 65313-6, 65552-6 ####[facility], [address] Hepatitis B Core Antibody To shirley 04-20-2017 Interpretation and review of laboratory results Negative Normal NEGATIVE [facility] Comment on above: Performed By: #### 6 9742-5, 26939-5, 65797-2, 22133-3, 46388- 4, 88337-8, 82387-7, 49737-3 ####[facility] [address], [place]#### 94810-4, 39338-0 ####[facility], [address], [place] Hepatitis B Surface Antibody on 04-20-2017 Hepatitis B Surface Antibody Interp Negative Normal NEGATIVE [facility] Comment on above: Performed By: #### 6 9742-5, 78543-5, 25266-1, 52368-8, 13997- 4, 74699-8, 80504-9, 51278-6 ####[facility] [address], [place]#### 57934-7, 75061-4 ####[facility], [address], [place] Magnesium Levelon 04-20-2017 Magnesium 2.0 mg/dL Normal 1.8-2.5 [facility] Comment on above: Performed By: #### 6 9742-5, 61862-0, 94078-2, 77008-3, 98293- 4, 18090-3, 98838-6, 99321-2 ####[facility] [address], [place]#### 02318-8, 31161-8 ####[facility], [address], [place] Phosphorus Levelon 8 Phosphorus Level 3.8 mg/dL Normal 2.4-4.7 [facility] Comment on above: Performed By: #### 6 9742-5, 12541-3, 14438-2, 18057-7, 69179- 4, 95484-8, 57476-8, 11452-1 ####[facility] [address], [place]#### 19130-1, 59076-4 ####[facility], [address], [place] Syphilis Screenon 04-20-2017 Syphilis Screen NONREAC Normal NONREAC [facility] Comment on above: Result Comment: No s erologic evidence of syphilis. Performed By: #### 6 9742-5, 68798-2, 49583-3, 75067-0, 79745-8, 78764-6, 67720-8, 96475-1 ####[facility] [address], [place]#### 66109-9, 05144-7 ####[facility], [address] [place], [place] Vital Signs Date Time Vital Sign Value Performing Clinician Facility 08-28-2024 10:35-0400 Body mass index (BMI) [Ratio] 29.94 kg/m2 Jaguar Ingrid DO Work Phone: [facility] 08-28-2024 10:35-0400 Body weight 74.84 kg Jaguar Ingrid DO Work Phone: [facility] 08-28-2024 10:35-0400 Diastolic blood pressure 72 mm[Hg] Jaguar Ingrid DO Work Phone: [facility] 08-28-2024 10:35-0400 Systolic blood pressure 118 mm[Hg] Jaguar Ingrid DO Work Phone: [facility] 07-19-2024 10:03-0400 Body mass index (BMI) [Ratio] 28.8 kg/m2 Corby Royal [employer] Work Phone: [facility] 07-19-2024 10:03-0400 Body weight 72.01 kg Corby Genny [employer] Work Phone: [facility] 07-19-2024 10:03-0400 Diastolic blood pressure 60 mm[Hg] Corby Genny [employer] Work Phone: [facility] 07-19-2024 10:03-0400 Systolic blood pressure 100 mm[Hg] Corby Genny [employer] Work Phone: [facility] 06-29-2024 17:00-0400 Diastolic blood pressure 46 mm[Hg] Yaz Hollis DO Work Phone: [facility] 06-29-2024 17:00-0400 Heart rate 85 /min Yaz Hollis DO Work Phone: [facility] 06-29-2024 17:00-0400 Respiratory rate 16 /min Yaz Hollis DO Work Phone: [facility] 06-29-2024 17:00-0400 SaO2% (BldA) [Mass fraction] 98 % Yza Hollis DO Work Phone: [facility] 06-29-2024 17:00-0400 Systolic blood pressure 114 mm[Hg] Yaz Hollis DO Work Phone: [facility] 06-29-2024 15:13-0400 Body temperature 97.8 [degF] Yaz Hollis DO Work Phone: [facility] 06-29-2024 15:07-0400 Body height 160.02 cm Yaz Hollis DO Work Phone: [facility] 06-29-2024 15:07-0400 Body weight 68.03 kg Yaz Hollis DO Work Phone: [facility] 06-21-2024 13:01-0400 Body mass index (BMI) [Ratio] 27.67 kg/m2 Jaguarsorin Peaceo DO Work Phone: [facility] 06-21-2024 13:01-0400 Body weight 69.17 kg Jaguar Ingrid DO Work Phone: [facility] 06-21-2024 13:01-0400 Diastolic blood pressure 66 mm[Hg] Jaguar Ingrid DO Work Phone: [facility] 06-21-2024 13:01-0400 Systolic blood pressure 104 mm[Hg] Jaguar Ingrid DO Work Phone: [facility] 06-07-2024 14:10-0400 Body temperature 97.9 [degF] Yaz Hollis DO Work Phone: [facility] 06-07-2024 14:10-0400 Diastolic blood pressure 72 mm[Hg] Yaz Hollis DO Work Phone: [facility] 06-07-2024 14:10-0400 Heart rate 88 /min Yaz Hollis DO Work Phone: [facility] 06-07-2024 14:10-0400 Respiratory rate 20 /min Yaz Hollis DO Work Phone: [facility] 06-07-2024 14:10-0400 SaO2% (BldA) [Mass fraction] 98 % Yaz Hollis DO Work Phone: [facility] 06-07-2024 14:10-0400 Systolic blood pressure 119 mm[Hg] Yaz Hollis DO Work Phone: [facility] 06-07-2024 11:07-0400 Body height 160.02 cm Yaz Hollis DO Work Phone: [facility] 06-07-2024 11:07-0400 Body weight 69.3 kg Yaz Hollis DO Work Phone: [facility] 05-25-2024 13:40-0500 Body mass index (BMI) [Ratio] 28.27 kg/m2 Sulema Mendenhall PA Work Phone: [facility] 05-25-2024 13:40-0500 Body weight 70.67 kg Sulema Mendenhall PA Work Phone: [facility] 05-25-2024 13:40-0500 Diastolic blood pressure 60 mm[Hg] Sulema Mendenhall PA Work Phone: [facility] 05-25-2024 13:40-0500 Systolic blood pressure 110 mm[Hg] Sulema Mendenhall PA Work Phone: [facility] 05-19-2024 12:23-0500 Diastolic blood pressure 55 mm[Hg] Yaz Hollis DO Work Phone: [facility] 05-19-2024 12:23-0500 Heart rate 94 /min Yaz Hollis DO Work Phone: [facility] 05-19-2024 12:23-0500 Respiratory rate 18 /min Yaz Hollis DO Work Phone: [facility] 05-19-2024 12:23-0500 SaO2% (BldA) [Mass fraction] 99 % Yaz Hollis DO Work Phone: [facility] 05-19-2024 12:23-0500 Systolic blood pressure 97 mm[Hg] G. Enoch Hollis DO Work Phone: [facility] 05-19-2024 08:55-0500 Body height 160.02 cm GAdeline Hollis DO Work Phone: [facility] 05-19-2024 08:55-0500 Body temperature 97.9 [degF] Yaz Hollis DO Work Phone: [facility] 05-19-2024 08:55-0500 Body weight 67.85 kg Yaz Hollis DO Work Phone: [facility] 05-16-2024 12:56-0500 Diastolic blood pressure 80 mm[Hg] Yaz Hollis DO Work Phone: [facility] 05-16-2024 12:56-0500 Heart rate 94 /min Yaz Hollis DO Work Phone: [facility] 05-16-2024 12:56-0500 Respiratory rate 16 /min Yaz Hollis DO Work Phone: [facility] 05-16-2024 12:56-0500 SaO2% (BldA) [Mass fraction] 99 % Yaz Hollis DO Work Phone: [facility] 05-16-2024 12:56-0500 Systolic blood pressure 122 mm[Hg] Yaz Hollis DO Work Phone: [facility] 05-16-2024 10:08-0500 Body height 160.02 cm Yaz Smithan DO Work Phone: [facility] 05-16-2024 10:08-0500 Body temperature 97.7 [degF] Yaz Hollis DO Work Phone: [facility] 05-16-2024 10:08-0500 Body weight 68.03 kg Yaz Hollis DO Work Phone: [facility] 04-24-2024 14:45-0500 Body mass index (BMI) [Ratio] 27.16 kg/m2 Jaguarsorin Peaceo DO Work Phone: [facility] 04-24-2024 14:45-0500 Body weight 67.9 kg Jaguar Ingrid DO Work Phone: [facility] 04-24-2024 14:45-0500 Diastolic blood pressure 66 mm[Hg] Jaguar Ingrid DO Work Phone: [facility] 04-24-2024 14:45-0500 Systolic blood pressure 108 mm[Hg] Jaguar Ingrid DO Work Phone: [facility] 04-05-2024 19:16-0500 Diastolic blood pressure 71 mm[Hg] Yaz Hollis DO Work Phone: [facility] 04-05-2024 19:16-0500 Heart rate 87 /min Yaz Hollis DO Work Phone: [facility] 04-05-2024 19:16-0500 Respiratory rate 20 /min Yaz Hollis DO Work Phone: [facility] 04-05-2024 19:16-0500 SaO2% (BldA) [Mass fraction] 97 % Yaz Hollis DO Work Phone: [facility] 04-05-2024 19:16-0500 Systolic blood pressure 106 mm[Hg] Yaz Hollis DO Work Phone: [facility] 04-05-2024 14:46-0500 Body height 160.02 cm Yaz Hollis DO Work Phone: 5(856)643-362285 [address] 04-05-2024 14:46-0500 Body temperature 97.9 [degF] Yaz Hollis DO Work Phone: 1(829)659-094396 [place] [address] 04-05-2024 14:46-0500 Body weight 65 kg Yaz Hollis DO Work Phone: 7(990)275-364796 [place] [address] 03-24-2024 11:29-0500 Body mass index (BMI) [Ratio] 24.49 kg/m2 [facility] 03-24-2024 11:29-0500 Body weight 61.24 kg [facility] 03-24-2024 11:29-0500 Diastolic blood pressure 68 mm[Hg] [facility] 03-24-2024 11:29-0500 Systolic blood pressure 112 mm[Hg] [facility] 03-04-2024 13:32-0500 Diastolic blood pressure 70 mm[Hg] Yaz Hollis DO Work Phone: 4(426)932-651496 [place] [address] 03-04-2024 13:32-0500 Heart rate 76 /min Yaz Hollis DO Work Phone: 9(608)122-276896 [place] [address] 03-04-2024 13:32-0500 Respiratory rate 20 /min Yaz Hollis DO Work Phone: 2(554)413-896582 [place] [address] 03-04-2024 13:32-0500 SaO2% (BldA) [Mass fraction] 100 % Yaz Hollis DO Work Phone: 6(891)392-531582 [place] [address] 03-04-2024 13:32-0500 Systolic blood pressure 115 mm[Hg] Yaz Hollis DO Work Phone: 6(668)095-451482 [place] [address] 03-04-2024 11:14-0500 Body height 160.02 cm Yaz Hollis DO Work Phone: 4(790)100-521682 [place] [address] 03-04-2024 11:14-0500 Body temperature 97.9 [degF] Yaz Hollis DO Work Phone: 2(826)940-637382 [place] [address] 03-04-2024 11:14-0500 Body weight 63 kg Yaz Hollis DO Work Phone: [facility] 11-25-2023 17:46-0400 Body height 160.02 cm DO Yaz Hollis Work Phone: [facility] 11-25-2023 17:46-0400 Body temperature 98 [degF] DO Yaz Hollis Work Phone: [facility] 11-25-2023 17:46-0400 Body weight 65.77 kg DO Yaz Hollis Work Phone: [facility] 11-25-2023 17:46-0400 Diastolic blood pressure 71 mm[Hg] DO Yaz Hollis Work Phone: [facility] 11-25-2023 17:46-0400 Heart rate 68 /min DO Yaz Hollis Work Phone: [facility] 11-25-2023 17:46-0400 Respiratory rate 18 /min DO Yaz Hollis Work Phone: [facility] 11-25-2023 17:46-0400 SaO2% (BldA) [Mass fraction] 97 % DO Yaz Hollis Work Phone: [facility] 11-25-2023 17:46-0400 Systolic blood pressure 107 mm[Hg] DO Yaz Hollis Work Phone: [facility] 12-02-2022 13:15-0400 Body height 160.02 cm Claribel Mora Other [facility] Other 12-02-2022 13:15-0400 Body mass index (BMI) [Ratio] 25.86 kg/m2 Claribel Mora Other [facility] Other 12-02-2022 13:15-0400 Body weight 66.23 kg Claribel Mora Other [facility] Other 12-02-2022 13:15-0400 Diastolic blood pressure 66 mm[Hg] Claribel Mora Other [facility] Other 12-02-2022 13:15-0400 Respiratory rate 18 /min Claribel Mora Other [facility] Other 12-02-2022 13:15-0400 SaO2% (BldA) [Mass fraction] 98 % Claribel Mora Other [facility] Other 12-02-2022 13:15-0400 Systolic blood pressure 100 mm[Hg] Claribel Mora Other [facility] Other 07-16-2022 14:45-0400 Body height 160.02 cm Claribel Mora Other [facility] Other 07-16-2022 14:45-0400 Body mass index (BMI) [Ratio] 27.22 kg/m2 Claribel Mora Other [facility] Other 07-16-2022 14:45-0400 Body weight 69.72 kg Claribel Mora Other [facility] Other 07-16-2022 14:45-0400 Diastolic blood pressure 64 mm[Hg] Claribel Mora Other [facility] Other 07-16-2022 14:45-0400 Respiratory rate 18 /min Claribel Mora Other [facility] Other 07-16-2022 14:45-0400 SaO2% (BldA) [Mass fraction] 97 % Claribel Mora Other [facility] Other 07-16-2022 14:45-0400 Systolic blood pressure 104 mm[Hg] Claribel Mora Other [facility] Other 06-04-2022 15:15-0400 Body height 160.02 cm Adin Gan Other [facility] Other 06-04-2022 15:15-0400 Body mass index (BMI) [Ratio] 27.28 kg/m2 Adin Gan Other [facility] Other 06-04-2022 15:15-0400 Body weight 69.85 kg Adin Gan Other [facility] Other 06-04-2022 15:15-0400 Diastolic blood pressure 80 mm[Hg] Adin Gan Other [facility] Other 06-04-2022 15:15-0400 Respiratory rate 18 /min Adin Gan Other [facility] Other 06-04-2022 15:15-0400 SaO2% (BldA) [Mass fraction] 98 % Adin Gan Other [facility] Other 06-04-2022 15:15-0400 Systolic blood pressure 126 mm[Hg] Adin Gan Other [facility] Other 05-25-2022 15:30-0500 Body height 160.02 cm Adin Gan Other [facility] Other 05-25-2022 15:30-0500 Body mass index (BMI) [Ratio] 27.28 kg/m2 Adin Gan Other [facility] Other 05-25-2022 15:30-0500 Body weight 69.85 kg Adin Gan Other [facility] Other 05-25-2022 15:30-0500 Diastolic blood pressure 80 mm[Hg] Adin Gan Other [facility] Other 05-25-2022 15:30-0500 Respiratory rate 18 /min Adin Gan Other [facility] Other 05-25-2022 15:30-0500 SaO2% (BldA) [Mass fraction] 99 % Adin Gan Other [facility] Other 05-25-2022 15:30-0500 Systolic blood pressure 124 mm[Hg] Adin Gan Other [facility] Other 05-30-2021 03:06-0500 Body weight 72.[address] RUSTAM SCALES [facility] Comment on above: Performed By: #### AFPMAT #### [facility] [address] [place] [address] Dr. Lilia Calvillo Encounters Encounter Date Encounter Type Care Provider Facility Start: 09-06-2024 End: 09-06-2024 Clinisync Result Encounter Generic External Data Provider [facility] External Department Unsolicited Start: 09-06-2024 End: 09-06-2024 Clinisync Result Encounter Generic External Data Provider [facility] External Department Unsolicited Start: 08-28-2024 End: 08-28-2024 Bamboo flowsheet Jaguar Ingrid DO Work Phone: [facility] Start: 08-28-2024 End: 08-28-2024 Bamboo flowsheet Jaguar Ingrid DO Work Phone: [facility] Start: 08-28-2024 End: 08-28-2024 flow sheet Jaguar Ingrid DO Work Phone: [facility] Comment on above: Gestational diabetes mellitus (GDM), antepartum, gestational diabetes method of control unspecified (Primary Dx); Third trimester ; 31 weeks gestation of ; Elevated glucose tolerance test; Anemia affecting in third trimester Start: 08-28-2024 End: 08-28-2024 ambulatory JAGUAR INGRID Not Available Start: 08-10-2024 End: 08-10-2024 ambulatory JAGUAR INGRID Not Available Start: 07-19-2024 End: 07-19-2024 flow sheet Corby Royal [employer] WORK[employer] Work Phone: [facility] Comment on above: Upper respiratory tr act infection, unspecified type (Primary Dx); Second trimester ; 25 weeks gestation of ; Vomiting complicating Start: 07-19-2024 End: 07-19-2024 ambulatory CORBY ROYAL Not Available Start: 06-29-2024 End: 06-29-2024 Emergency department patient visit Yaz Smalltoniemadeline DO Work Phone: [facility] Work Phone: Start: 06-21-2024 End: 06-21-2024 Bamboo flowsheet Jaguar Ingrid DO Work Phone: [facility] Start: 06-21-2024 End: 06-21-2024 Bamboo flowsheet Jaguar Ingrid DO Work Phone: [facility] Start: 06-21-2024 End: 06-21-2024 flow sheet Jaguar Ingrid DO Work Phone: [facility] Comment on above: Second trimester pre gnancy; 21 weeks gestation of ; Moderately severe depression (CMS/HCC); Nausea and vomiting in ; Diabetes mellitus screening; Low-lying placenta Start: 06-21-2024 End: 06-21-2024 ambulatory JAGUAR INGRID Not Available Start: 06-12-2024 End: 06-12-2024 ambulatory JAGUAR INGRID Not Available Start: 06-07-2024 End: 06-07-2024 Emergency department patient visit Yaz Hollis DO Work Phone: [facility] Work Phone: Start: 05-25-2024 End: 05-25-2024 Bamboo flowsheet Sulema PATEL Work Phone: [facility] Start: 05-25-2024 End: 06-01-2024 Bamboo flowsheet Sulema PATEL Work Phone: [facility] Start: 05-25-2024 End: 06-01-2024 Clinisync Result Encounter Generic External Data Provider [facility] External Department Unsolicited Start: 05-25-2024 End: 05-25-2024 Office outpatient visit 15 minutes Sulema PATEL Work Phone: [facility] Comment on above: 17 weeks gestation o f ; Second trimester ; Well woman exam with routine gynecological exam; Screening, , for anatomic survey; Exposure to STD; Vaginal discharge Start: 05-25-2024 End: 05-25-2024 Patient encounter procedure Suelma PATEL Work Phone: [facility] Start: 05-25-2024 End: 05-25-2024 ambulatory SULEMA MENDENHALL Not Available Start: 05-19-2024 End: 05-19-2024 Emergency department patient visit Yaz Hollis DO Work Phone: [facility] Work Phone: Start: 05-16-2024 End: 05-16-2024 Emergency department patient visit Yaz Hollis DO Work Phone: [facility] Work Phone: Start: 04-24-2024 End: 04-24-2024 [...] patient visit Yaz Hollis DO Work Phone: [facility] Work Phone: Start: 04-03-2024 End: 04-03-2024 [...] patient visit Yaz Hollis DO Work Phone: [facility] Work Phone: Start: 11-25-2023 End: 11-25-2023 Emergency department patient visit DO Yaz Hollis Work Phone: [facility] Work Phone: Start: 10-05-2023 End: 10-05-2023 ambulatory RICARDO SERRANO Not Available Start: 12-02-2022 End: 12-02-2022 ambulatory Claribel Mora Other [facility] Other Start: 12-02-2022 Office outpatient vi sit 25 minutes Claribel Mora [facility] Start: 07-16-2022 End: 07-16-2022 ambulatory Claribel Mora Other [facility] Other Start: 07-16-2022 Office outpatient vi sit 25 minutes Claribel Mora [facility] [place] Start: 06-08-2022 End: 06-08-2022 ambulatory Adin Gan Other [facility] Other Start: 06-08-2022 Telephone encounter [facility] [place] Start: 06-05-2022 End: 06-05-2022 ambulatory Adin Gan Other [facility] Other Start: 06-05-2022 Telephone encounter Adin Ahn [facility] [place] Start: 06-04-2022 End: 06-04-2022 Patient encounter procedure DO Adin Gan Work Phone: [facility] Start: 06-04-2022 End: 06-04-2022 ambulatory DO Adin Gan Work Phone: [facility] Work Phone: Start: 06-04-2022 Office outpatient vi sit 15 minutes Adin Gan [facility] [place] Start: 05-25-2022 End: 05-25-2022 ambulatory Adin Gan Other [facility] Other Start: 05-25-2022 Office outpatient vi sit 15 minutes Adin Gan [facility] [place] Start: 05-22-2022 End: 05-22-2022 ambulatory Adin Gan Other [facility] Other Start: 05-22-2022 Telephone encounter [facility] [place] Start: 05-07-2022 End: 05-07-2022 ambulatory Adin Gan Other [facility] Other Start: 05-07-2022 Telephone encounter [facility] [facility] [place] Start: 04-01-2022 End: 04-01-2022 ambulatory Nabil Mcgraw Other [employer] Other Start: 04-01-2022 Telephone encounter Nabil Mcgraw [facility] Ignacio Start: 02-17-2022 End: 02-17-[address] JAGUAR QUINTERO Facility:[facility]1 Start: 10-22-2021 Encounter for preprocedural laboratory examination DR JAGUAR QUINTERO [facility] Start: 10-21-2021 End: 10-21-[address] JAGUAR QUINTERO Facility:[facility] Start: 10-16-2021 End: 10-18-2021 Evaluation and management of inpatient DR JAGUAR QUINTERO Facility:[facility] Start: 10-14-2021 Encounter for preprocedural laboratory examination DR JAGUAR QUINTERO [facility] Start: 10-13-2021 End: 10-14-[address] NONE LISTED REQUEST Facility:[facility] Start: 10-13-2021 End: [...] Start: 04-21-2017 End: 04-21-2017 Ambulatory HOME MATHEW Facility:[facility] Procedures Date Procedure Procedure Detail Performing Clinician Start: 09-06-2024 US OB GROWTH Generic Ex ternal Data Provider Start: 08-28-2024 Urnls dip stick/tabl et rgnt non-auto w/o micrscp Jaguar Ingrid DO Work Phone: Start: 07-19-2024 Urnls dip stick/tabl et rgnt non-auto w/o micrscp Corby Royal [employer] WORK[employer] Work Phone: Start: 06-21-2024 Urnls dip stick/tabl et rgnt non-auto w/o micrscp Jaguar Ingrid DO Work Phone: Start: 05-25-2024 Urnls dip stick/tabl et rgnt non-auto w/o micrscp Sulema PATEL Work Phone: Start: 05-25-2024 IGP,APTIMA HPV,AGE GDLN Sulema PATEL Work Phone: Start: 05-25-2024 Microscopic observat ion [Identifier] in Cervix by Cyto stain Jaguar Ingrid DO Work Phone: Start: 04-24-2024 Urnls dip stick/tabl et rgnt non-auto w/o micrscp Sulema PATEL Work Phone: Start: 04-05-2024 Respiratory Panel (PCR) Yaz Hollis DO Work Phone: Start: 04-03-2024 BOX TEST Jaguar Fazi o DO Work Phone: Start: 03-24-2024 End: 03-24-2024 [...] Treatment Date Care Activity Detail Author Start: 05-25-2029 Screening for malign ant neoplasm of cervix [facility] Start: 01-02-2026 Screening for malign ant neoplasm of cervix [facility] Start: 11-20-2024 Influenza vaccination Influenz a Vaccine (Season Ended) [facility] Start: 09-11-2024 End: 09-11-2024 Patient encounter procedure 09/11/2024 1:50 PM EDT Routine [facility] OB [address] [place] [place] [id number] Sulema Mendenhall, PA [address] [place], [place] [id number] [facility] Start: 09-11-2024 End: 09-11-2024 Patient encounter procedure 09/11/2024 9:30 AM EDT Routine [facility] [address] [place] [id number] Sulema Mendenhall, PA [address] [place] [address] [facility] Start: 08-28-2024 End: 08-28-2025 Transferrin [Mass/volume] in Serum or Plasma Transferrin Lab Routine Third trimester Gestational diabetes mellitus (GDM), antepartum, gestational diabetes method of control unspecified Elevated glucose tolerance test Anemia affecting in third trimester Expected: 08/28/2024 (Approximate), Expires: 08/28/2025 [facility] Comment on above: Expected: 08/28/2024 (Approximate), Expires: 08/28/2025 Start: 08-28-2024 End: 02-27-2025 US biophysical profile w non stress test US biophysical profile w non stress test Imaging Routine Third trimester Anemia affecting in third trimester Expected: 08/28/2024 (Approximate), Expires: 02/27/2025 [facility] Work Phone: Comment on above: Expected: 08/28/2024 (Approximate), Expires: 02/27/2025 Start: 08-28-2024 End: 12-28-2024 US for US OB follow up transabdominal approach Imaging Routine Third trimester Gestational diabetes mellitus (GDM), antepartum, gestational diabetes method of control unspecified Elevated glucose tolerance test Anemia affecting in third trimester Expected: 08/28/2024, Expires: 12/28/2024 [facility] Comment on above: Expected: 08/28/2024 , Expires: 12/28/2024 Start: 08-28-2024 End: 08-28-2024 Patient encounter procedure 08/28/2024 10:50 AM EDT Routine [facility] [address] [place] [id number] Jaguar Quintero, DO [address] [place] [address] Arrived [facility] Comment on above: Arrived Start: 08-10-2024 End: 08-10-2024 Patient encounter procedure 08/10/2024 11:10 AM EDT Routine [facility] [address] [place] [phone] Jaguar Quintero, DO [address] [place] [address] [facility] Start: 07-19-2024 End: 07-19-2024 Patient encounter procedure 07/19/2024 10:30 AM EDT Routine [facility] [address] [place] [phone] uSlema Mendenhall PA [address] [place] [address] [facility] Start: 07-19-2024 End: 07-19-2024 Professional / ancillary services management 07/19/2024 9:30 AM EDT Ancillary Procedure [facility] [address] [place] [address] [facility] Start: 06-29-2024 Urine culture [facility] Start: 06-29-2024 Bacteria identified in Urine by Culture Urine Culture [facility] Start: 06-21-2024 End: 06-21-2025 CBC panel - Blood by Automated count CBC Lab Routine Diabetes mellitus screening Expected: 06/21/2024 (Approximate), Expires: 06/21/2025 [facility] Comment on above: Expected: 06/21/2024 (Approximate), Expires: 06/21/2025 Start: 06-21-2024 End: 06-21-2025 Measurement of glucose 1 hour after glucose challenge for glucose tolerance test Glucose tolerance, 1 hour Lab Routine Diabetes mellitus screening Expected: 06/21/2024 (Approximate), Expires: 06/21/2025 [facility] Comment on above: Expected: 06/21/2024 (Approximate), Expires: 06/21/2025 Start: 06-21-2024 End: 06-21-2025 US for US OB limited 1+ fetuses Imaging Routine Low-lying placenta Expected: 06/21/2024, Expires: 06/21/2025 [facility] Work Phone: Comment on above: Expected: 06/21/2024 , Expires: 06/21/2025 Start: 06-21-2024 End: 06-21-2024 Patient encounter procedure [facility] Comment on above: Arrived Start: 06-12-2024 End: 06-12-2024 Professional / ancillary services management 06/12/2024 2:30 PM EDT Ancillary Procedure [facility] [address] [place] [address] [facility] Start: 05-25-2024 End: 05-25-2025 Alpha fetoprotein, maternal Alpha fetoprotein, maternal Lab Routine 17 weeks gestation of Second trimester Expected: 05/25/2024 (Approximate), Expires: 05/25/2025 [facility] Comment on above: Expected: 05/25/2024 (Approximate), Expires: 05/25/2025 Start: 05-25-2024 End: 05-25-2025 US for US OB 14+ weeks anatomy scan Imaging Routine Screening, , for anatomic survey Expected: 05/25/2024, Expires: 05/25/2025 [facility] Comment on above: Expected: 05/25/2024 , Expires: 05/25/2025 Start: 05-25-2024 End: 05-25-2024 Patient encounter procedure [facility] Comment on above: Arrived Start: 04-24-2024 End: 04-24-2024 Patient encounter procedure [facility] Comment on above: Arrived Start: 03-24-2024 End: 03-24-2025 ABO/Rh ABO/Rh Lab Routine Missed menses , unspecified gestational age Expected: 03/24/2024 (Approximate), Expires: 03/24/2025 [facility] Comment on above: Expected: 03/24/2024 (Approximate), Expires: 03/24/2025 Start: 03-24-2024 End: 03-24-2025 Blood type and Indirect antibody screen panel - Blood Type and screen Lab Routine Missed menses , unspecified gestational age Expected: 03/24/2024 (Approximate), Expires: 03/24/2025 [facility] Work Phone: Comment on above: Expected: 03/24/2024 (Approximate), Expires: 03/24/2025 Start: 03-24-2024 End: 03-24-2025 Drugs of abuse panel - Urine by Screen method Rapid drug screen, urine Lab Routine , unspecified gestational age Encounter for supervision of normal first in first trimester Expected: 03/24/2024 (Approximate), Expires: 03/24/2025 [facility] Comment on above: Expected: 03/24/2024 (Approximate), Expires: 03/24/2025 Start: 11-21-2023 Influenza vaccination Influenza Vacc ine (#1) [facility] Start: 2014 Screening for malign ant neoplasm [facility]ix [facility] Bacteria identified in Urine by Culture Urine culture Microbiology Routine Missed menses Ordered: 03/24/2024 [facility] Comment on above: Ordered: 03/24/2024 CBC W Auto Different ial panel - Blood CBC and differential Lab Routine Missed menses , unspecified gestational age Ordered: 03/24/2024 [facility] Comment on above: Ordered: 03/24/2024 CHLAMYDIA TRACHOMATI S (GENITO/STI) CHLAMYDIA TRACHOMATIS (GENITO/STI) Lab Routine Exposure to STD Ordered: 05/25/2024 [facility] Comment on above: Ordered: 05/25/2024 Cytology Cervical or vaginal smear or scraping study Pap Smear Pathology and Cytology Routine Well woman exam with routine gynecological exam Ordered: 05/25/2024 [facility] Comment on above: Ordered: 05/25/2024 Ferritin [Mass/volum e] in Serum or Plasma Ferritin Lab Routine Third trimester Anemia affecting in third trimester Ordered: 08/28/2024 [facility] Comment on above: Ordered: 08/28/2024 Hemoglobin A1c/Hemoglobin.total in Blood Hemoglobin A1c Lab Routine Missed menses , unspecified gestational age Ordered: 03/24/2024 [facility] Comment on above: Ordered: 03/24/2024 Hepatitis B virus surface Ag [Presence] in Serum or Plasma by Immunoassay Hepatitis B surface antigen Lab Routine Missed menses , unspecified gestational age Ordered: 03/24/2024 [facility] Comment on above: Ordered: 03/24/2024 Hepatitis C virus Ab [Presence] in Serum or Plasma by Immunoassay Hepatitis C antibody Lab Routine Missed menses , unspecified gestational age Ordered: 03/24/2024 [facility] Comment on above: Ordered: 03/24/2024 HIV-1/HIV-2 antigen/antibody combination immunoassay HIV-1 and HIV-2 antibodies Lab Routine Missed menses , unspecified gestational age Ordered: 03/24/2024 [facility] Comment on above: Ordered: 03/24/2024 Human papilloma viru s DNA [Presence] in Unspecified specimen by Probe with amplification HPV DNA probe, amplified Microbiology Routine Well woman exam with routine gynecological exam Ordered: 05/25/2024 [facility] Comment on above: Ordered: 05/25/2024 Neisseria gonorrhoea e DNA [Presence] in Unspecified specimen by TORRES with probe detection Neisseria gonorrhea DNA probe, direct Lab Routine Exposure to STD Ordered: 05/25/2024 [facility] Comment on above: Ordered: 05/25/2024 Patient Education [facility] Work Phone: Patient referral [facility] Work Phone: Reagin Ab [Presence] in Serum by RPR RPR Lab Routine Missed menses , unspecified gestational age Ordered: 03/24/2024 [facility] Comment on above: Ordered: 03/24/2024 Rubella antibody, IgG Rubella an tibody, IgG Lab Routine Missed menses , unspecified gestational age Ordered: 03/24/2024 [facility] Comment on above: Ordered: 03/24/2024 SURESWAB(R) ADVANCED VAGINITIS PLUS, TMA SURESWAB(R) ADVANCED VAGINITIS PLUS, TMA Pathology and Cytology Routine Vaginal discharge Ordered: 05/25/2024 [facility] Work Phone: Comment on above: Ordered: 05/25/2024 Immunizations Immunization Date Immunization Notes Care Provider [facility] 06-30-2019 tetanus toxoid, reduced diphtheria toxoid, and acellular pertussis vaccine, adsorbed DO Adin Gan Work Phone: [facility] 05-12-2013 influenza, seasonal, injectable, preservative free [facility] 05-12-2013 influenza virus vaccine, unspecified formulation [facility] Nurse [facility] 10-19-2012 tetanus toxoid, reduced diphtheria toxoid, and acellular pertussis vaccine, adsorbed [facility] 02-25-2012 influenza, seasonal, injectable [facility] Nurse [facility] 01-09-2011 influenza virus vaccine, live, attenuated, for intranasal use [facility] 02-28-2007 influenza, seasonal, injectable [facility] Nurse [facility] 02-01-2006 influenza, seasonal, injectable [facility] Nurse [facility] NEGATED: Highlighted row has not occurred!07-16-2022 influenza, seasonal, injectable Patient Objection Claribel Mora Other [employer] Other Payers Date Payer Category Payer [facility] [id number] 2023 Unknown [id number] 2023 Private Health Insurance [id number] 2017 Unknown [id number] 1993 Unknown [id number] 2.16.840.1.737950.3.579.2. 593 1993 Unknown [id number] 2.16.840.1.215497.3.579.2. 593 1993 Unknown [id number] 2.16.840.1.241127.3.579.2. 593 1993 Unknown [id number] 2.16.840.1.126566.3.579.2. 593 1993 Unknown [id number] 2.16.840.1.475264.3.579.2. 593 1993 Unknown [id number] 2.16.840.1.603883.3.579.2. 593 1993 Unknown [id number] 2.16.840.1.895061.3.579.2. 593 1993 Unknown [id number] 2.16.840.1.764200.3.579.2. 593 1993 Unknown [id number] 2.16.840.1.638342.3.579.2. 593 1993 Unknown [id number] 2.16.840.1.020724.3.579.2. 593 1993 Unknown [id number] 2.16.840.1.578768.3.579.2. 593 1993 Unknown [id number] 2.16.840.1.949337.3.579.2. 9 1993 Unknown [id number] 2.16.840.1.439241.3.579.2. 1258 1993 Unknown [id number] 2.16.840.1.856700.3.579.2. 1258 1993 Unknown [id number] 2.16.840.1.797790.3.579.2. 1258 1993 Unknown [id number] 2.16.840.1.026321.3.579.2. 1258 1993 Unknown [id number] 2.16.840.1.474147.3.579.2. 1258 1993 Unknown [id number] 2.16.840.1.094233.3.579.2. 1258 1993 Unknown [id number] 2.16.840.1.767099.3.579.2. 1258 1993 Unknown [id number] 2.16.840.1.668291.3.579.2. 1258 1993 Unknown [id number] 2.16.840.1.781051.3.579.2. 1258 1993 Unknown [id number] 2.16.840.1.792318.3.579.2. 1258 1993 Unknown [id number] 2.16.840.1.226062.3.579.2. 9 1959 Self-pay 1959 Unknown [id number] 1959 Unknown [id number] Medicaid [id number] Advantage [id number] [facility] [id number] Unknown [id number] 2.16.840.1.659816.3.579.2. 593 Unknown [id number] 2.16.840.1.090445.3.579.2. 531 Unknown [id number] 2.16.840.1.510126.3.579.2. 531 Unknown [id number] 2.16.840.1.962407.3.579.2. 531 Unknown [id number] 2.16.840.1.698778.3.579.2. 531 Unknown [id number] 2.16.840.1.722664.3.579.2. 531 Unknown [id number] 2.16.840.1.987910.3.579.2. 531 Unknown [id number] 2.16.840.1.285094.3.579.2. 531 Social History Date Type Detail Facility Start: 10-05-2023 Sex Assigned At [place] [facility] Other Start: 04-28-2020 End: 06-29-2024 Tobacco smoking status [facility] Never smoked tobacco (finding) [facility] Start: 1995 Sex Assigned At Female [facility] Start: 11-25-2023 End: 03-22-2017 Tobacco smoking status KYIS Smoker (finding) [facility] Start: 10-05-2023 Tobacco smoking status [facility] Ex-smoker [facility] End: 03-22-2017 History of tobacco use Cigarette Smoker [facility] Start: 10-05-2023 Tobacco use and exposure Smokeless tobacco non-user [facility] Start: 03-24-2024 End: 08-10-2024 Alcoholic beverage intake Ex-drinker (finding) [facility] Start: 10-05-2023 History of Social function [facility] Start: 06-20-2023 Education 21 [facility] Start: 06-20-2023 Tobacco Comment Last smoked : 1- 5 years [facility] Start: 06-20-2023 Alcohol Comment caffeine intake : 1-2 cups per day [facility] Start: 02-04-2024 [facility] Start: 07-12-2023 Gender identity Identifies as female gender (finding) [facility] Start: 07-12-2023 Sexual orientation Heterosexual (finding) [facility] Start: 04-05-2024 End: 06-29-2024 Sex Female (finding) [facility] Medical Equipment Procedure Code Equipment Code Equipment Origin al Text Equipment Identifier Dates 1 strip by In Vi tro route Daily Use in the morning prior to breakfast, 1 hour after each meal for a total of 4times daily. [id number] Start: 08-28-2024 End: 09-27-2024 1 each by In Vit ro route Daily Use to check FSBS four times daily [id number] Start: 08-28-2024 End: 09-27-2024 Clinical Notes 08-20-2017 to 08-28-2024 Chrissy Gomez, ASHVIN - 08/28/2024 10:50 AM Sue Royal NP - 07/19/2024 10:30 AM Osvaldo Mercado LPN - 06/21/2024 1:20 PM JORGE Castellanos - 05/25/2024 1:30 PM EST Note Date & Type Note Facility 08-28-2024 History of Presen t illness Narrative Reason for Appointment: Patient ID: Nicole Farris is a 29 y.o. female who presents for Routine Visit Patient presents today for Return OB appointment. MEDICATIONS Current Outpatient Medications Medication Instructions Alcohol Swabs (Alcohol Prep Pad) 70 % pads 1 Pad, Topical, Daily, Use four times daily to check FSBS. Blood Glucose Monitoring Suppl (D-Care Glucometer) w/Device kit 1 kit, Does not apply, Daily, Use four times daily to check FSBS. In the morning prior to breakfast & 1 hour after each meal for a total of 4times daily. citalopram (CELEXA) 40 mg, Oral, Daily fluticasone (Flonase) 50 MCG/ACT nasal spray 1-2 sprays, Each Nostril, Daily, Shake gently. Before first use, prime pump. After use, clean tip and replace cap Glucose Blood (Blood Glucose Test) strip 1 strip, In Vitro, Daily, Use in the morning prior to breakfast, 1 hour after each meal for a total of 4times daily. iron polysaccharides (PROFE) 391.3 mg, Oral, Daily Lancets Ultra Thin misc 1 each, In Vitro, Daily, Use to check FSBS four times daily metoclopramide (REGLAN) 10 mg, Oral, 3 times daily before meals, Take 1 tablet by mouth 30 minutes prior to meals 3 times daily as needed for nausea. ondansetron (ZOFRAN) 4 mg, Oral, Every 6 hours PRN, Take 1 tablet by mouth every 6 hours as needed for nausea. ondansetron (ZOFRAN) 4 mg, Oral, Every 6 hours ondansetron ODT (ZOFRAN-ODT) 4 mg, Oral, Every 8 hours PRN promethazine (PHENERGAN) 12.5 mg, Oral, Every 6 hours PRN valACYclovir (Valtrex) 500 MG tablet TAKE 1 TABLET BY MOUTH 2 TIMES A DAY IN THE MORNING AND BEFORE BEDTIME FOR 3 DAYS ALLERGIES Allergies Allergen Reactions Codeine Unknown Other Reaction(s): Hives Penicillamine Unknown Penicillin G Hives Penicillins Other Reaction(s): Hives, Unknown Sulfa Antibiotics Unknown Sulfamethoxazole Other Reaction(s): Swelling of Lip/Tongue/Throat, hives Sulfamethoxazole-Trimethoprim Other Reaction(s): lips swelling Other Reaction(s): Unknown Sumatriptan Other Reaction(s): paresthesias, felt weird Trimethoprim Other Reaction(s): Swelling of Lip/Tongue/Throat, hives PROBLEMS Active Ambulatory Problems Diagnosis Date Noted Amenorrhea 04/07/2023 Birthmark of skin 04/07/2023 Constipation 04/07/2023 Chronic GERD 04/07/2023 Goiter ([facility]) 04/07/2023 Migraine without aura and without status migrainosus, not intractable ([facility]) 04/07/2023 Moderately severe depression ([facility]) 04/07/2023 Hyperemesis gravidarum 05/19/2024 Resolved Ambulatory Problems Diagnosis Date Noted No Resolved Ambulatory Problems Past Medical History: Diagnosis Date Allergic Depression ([facility]CC) Drug addiction ([facility]CC) Enlarged thyroid (CMS/HCC) Hepatitis C (CMS/HCC) Hepatitis C (CMS/[facility]) Hx of abnormal cervical Pap smear 2014 Migraine Seasonal allergies UTI (urinary tract infection) Vaccine for VZV (varicella-zoster virus) HISTORY PAST MEDICAL HISTORY SOCIAL HISTORY Past Medical History: Diagnosis Date Allergic Depression ([facility]/HCC) Drug addiction ([facility]/HCC) Heroin , alcohol sober 2015 to 2019 Enlarged thyroid (CMS/HCC) Hepatitis C (CMS/HCC) treatment 2018 Hepatitis C (CMS/HCC) treatment 2018 Hx of abnormal cervical Pap smear 2014 had laser cervix for pre cancerous changes Migraine Seasonal allergies UTI (urinary tract infection) Vaccine for VZV (varicella-zoster virus) Social History Tobacco Use Smoking status: Former Current packs/day: 0.00 Types: Cigarettes Quit date: 03/22/2017 Years since quittin.4 Smokeless tobacco: Never Tobacco comments: Last smoked : 1- 5 years Vaping Use Vaping status: Never Used Substance Use Topics Alcohol use: Not Currently Comment: caffeine intake : 1-2 cups per day Drug use: Not Currently Comment: hx of cocaine, heroin, alcohol addiction, quit in 2015 FAMILY HISTORY Family History Problem Relation Name [...] SYSTEMS Review of Systems: Review of Systems All other systems reviewed and are negative. OBJECTIVE Objective: Physical Exam Constitutional: Appearance: Normal appearance. She is well-developed. Cardiovascular: Rate and Rhythm: Normal rate and regular rhythm. Pulmonary: Effort: Pulmonary effort is normal. Breath sounds: Normal breath sounds. Abdominal: General: Bowel sounds are normal. There is no distension. Palpations: Abdomen is soft. Tenderness: There is no abdominal tenderness. There is no guarding or rebound. Musculoskeletal: General: No swelling. Normal range of motion. Right lower leg: No edema. Left lower leg: No edema. Neurological: Mental Status: She is alert and oriented to person, place, and time. Skin: General: Skin is warm and dry. Psychiatric: Mood and Affect: Mood normal. Behavior: Behavior normal. Vitals and nursing note reviewed. Exam conducted with a vacuum bottle assembler present. Vitals: Estimated body mass index is 29.94 kg/m as calculated from the following: Height as of 06/16/23: 5' 2.25 . Weight as of this encounter: 165 lb. BP: 118/72 Patient's last menstrual period was 01/21/2024. ASSESSMENT & PLAN ICD-10-CM 1. Gestational diabetes mellitus (GDM), antepartum, gestational diabetes method of control unspecified O24.419 Lancets Ultra Thin misc Alcohol Swabs (Alcohol Prep Pad) 70 % pads Glucose Blood (Blood Glucose Test) strip Blood Glucose Monitoring Suppl (D-Care Glucometer) w/Device kit US OB follow up transabdominal approach Transferrin Transferrin 2. Third trimester Z34.93 Lancets Ultra Thin misc Alcohol Swabs (Alcohol Prep Pad) 70 % pads Glucose Blood (Blood Glucose Test) strip Blood Glucose Monitoring Suppl (D-Care Glucometer) w/Device kit iron polysaccharides (ProFe) 391.3 (180 Fe) MG capsule US biophysical profile w non stress test US OB follow up transabdominal approach Transferrin Ferritin Transferrin 3. 31 weeks gestation of Z3A.31 POCT urinalysis dipstick manually resulted 4. Elevated glucose tolerance test R73.09 Lancets Ultra Thin misc Alcohol Swabs (Alcohol Prep Pad) 70 % pads Glucose Blood (Blood Glucose Test) strip Blood Glucose Monitoring Suppl (D-Care Glucometer) w/Device kit US OB follow up transabdominal approach Transferrin Transferrin 5. Anemia affecting in third trimester O99.013 iron polysaccharides (ProFe) 391.3 (180 Fe) MG capsule US biophysical profile w non stress test US OB follow up transabdominal approach Transferrin Ferritin Transferrin Return OB: Patient presents today for a routine obstetrics appointment. Patient is currently 31w3d . Patient states she is doing well but has complaints of being tired due to current . Patient has verbalizes frequent movement. labor precautions was discussed/given and patient was instructed to perform kick counts three times a day. Patient with recent HgbA1c 6. Discussed with patient having NST/BPP and growth scans. Patient given orders and orders sent to [facility] Scheduling and [facility]. Patient was given orders for Transferrin and Ferratin. Patient educated on how to check FSBS and given direct extension to senior property manager for any questions/concerns. Nursing will reach out to [facility] to see if they are performing Diabetic Education locally again. Will await for Anabel from [facility] to contact office and then patient will be notified. Orders Placed This Encounter Procedures US biophysical profile w non stress test US OB follow up transabdominal approach Transferrin Ferritin POCT urinalysis dipstick manually resulted Follow Up: Patient is to return to office in 3 week for routine OB appointment. Documented by Chrissy Gomez MA on behalf of: Jaguar Quintero DO documented in this [facility] History of Presen t illness Narrative Reason for Appointment: Patient ID: Nicole Farris is a 28 y.o. female who presents for Routine Visit Patient presents today for Return OB appointment. MEDICATIONS Current Outpatient Medications Medication Instructions citalopram (CELEXA) 40 mg, Oral, Daily fluticasone (Flonase) 50 MCG/ACT nasal spray 1-2 [...] (PHENERGAN) 12.5 mg, Oral, Every 6 hours PRN valACYclovir (Valtrex) 500 MG tablet TAKE 1 [...] 04/07/2023 Constipation 04/07/2023 Chronic GERD 04/07/2023 Goiter ([facility]) 04/07/2023 Migraine without aura and without status migrainosus, not intractable ([facility]) 04/07/2023 Moderately severe depression ([facility]) 04/07/2023 Hyperemesis gravidarum 05/19/2024 Resolved Ambulatory Problems Diagnosis Date Noted No [...] Types: Cigarettes Quit date: 03/22/2017 Years since quittin.3 Smokeless tobacco: Never Tobacco comments: Last smoked : 1- 5 years Vaping Use Vaping status: Never Used Substance Use Topics Alcohol use: Not Currently Comment: caffeine intake : 1-2 cups per day Drug use: Not Currently Comment: hx of cocaine, heroin, alcohol addiction, quit in 2015 FAMILY HISTORY Family History Problem Relation Name [...] SYSTEMS Review of Systems: Review of Systems Constitutional: Negative. HENT: Positive for congestion, postnasal drip and sinus pain. Cough Eyes: Negative. Respiratory: Negative. Cardiovascular: Negative. Gastrointestinal: Positive for nausea. Genitourinary: Negative. Musculoskeletal: Negative. Skin: Negative. Neurological: Negative. All other systems reviewed and are negative. Hematological: Negative. Endocrine: Negative. Allergic/Immunologic: Negative. OBJECTIVE Objective: Physical Exam Constitutional: Appearance: Normal appearance. She is well-developed. Cardiovascular: Rate and Rhythm: Normal rate and regular rhythm. Pulmonary: Effort: Pulmonary effort is normal. Breath sounds: Wheezing present. Abdominal: General: Bowel sounds are normal. There is no distension. Palpations: Abdomen is soft. Tenderness: There is no abdominal tenderness. There is no guarding or rebound. Musculoskeletal: General: No swelling. Normal range of motion. Right lower leg: No edema. Left lower leg: No edema. Neurological: Mental Status: She is alert and oriented to person, place, and time. Skin: General: Skin is warm and dry. Psychiatric: Mood and Affect: Mood normal. Behavior: Behavior normal. Vitals and nursing note reviewed. Exam conducted with a vacuum bottle assembler present. Vitals: Estimated body mass index is 28.8 kg/m as calculated from the following: Height as of 06/16/23: 5' 2.25 . Weight as of this encounter: 158 lb 12 oz. BP: 100/60 Patient's last menstrual period was 01/21/2024. ASSESSMENT & PLAN ICD-10-CM 1. Second trimester Z34.92 POCT urinalysis dipstick manually resulted 2. 25 weeks gestation of Z3A.25 Return OB: Patient presents today for a routine obstetrics appointment. Patient is currently 25w5d . Patient states she is doing well but has complaints of being tired due to current . Patient has verbalizes frequent movement. labor precautions was discussed/given and patient was instructed to perform kick counts three times a day. Orders Placed This Encounter Procedures POCT urinalysis dipstick manually resulted Follow Up: Patient is to return to office in 3 week for routine OB appointment. Patient with repeat anatomy scan today. She reports URI symptoms with mild wheezing that clears with cough and nasal congestion. She is afebrile and otherwise well appearing. She continues with some complaints of nausea without vomiting and Zofran has continued to help with her symptoms. Azithromycin and zofran was sent to her pharmacy. She is going to obtain 1 hour GTT and CBC. Documented by Corby Royal NP on behalf of: Corby Royal NP documented in this encounter [facility] 06-21-[facility]24 History of Presen t illness Narrative Reason for Appointment: Patient ID: Nicole Farris is a 28 y.o. female who presents for Routine Visit Patient presents today for Return OB appointment. MEDICATIONS Current Outpatient Medications Medication Instructions citalopram (CELEXA) 20 mg, Oral, Daily fluticasone (Flonase) 50 MCG/ACT nasal spray 1-2 sprays, Each Nostril, Daily, Shake gently. Before first use, prime pump. After use, clean tip and replace cap metoclopramide (REGLAN) 10 mg, Oral, 3 times daily before meals, Take 1 tablet by mouth 30 minutes prior to meals 3 times daily as needed for nausea. ondansetron ODT (ZOFRAN-ODT) 4 mg, Oral, Every 8 hours PRN valACYclovir (Valtrex) 500 MG tablet TAKE 1 [...] 04/07/2023 Constipation 04/07/2023 Chronic GERD 04/07/2023 Goiter (CMS/HCC) 04/07/2023 Migraine without aura and without status migrainosus, not intractable (CMS/HCC) 04/07/2023 Moderately severe depression (CMS/HCC) 04/07/2023 Hyperemesis gravidarum 05/19/2024 Resolved Ambulatory Problems Diagnosis Date Noted No [...] Types: Cigarettes Quit date: 03/22/2017 Years since quittin.2 Smokeless tobacco: Never Tobacco comments: Last smoked [...] SYSTEMS Review of Systems: Review of Systems Constitutional: Negative. HENT: Negative. Eyes: Negative. Respiratory: Negative. Cardiovascular: Negative. Gastrointestinal: Negative. Genitourinary: Negative. Musculoskeletal: Negative. Skin: Negative. Neurological: Negative. All other systems reviewed and are negative. Hematological: Negative. Endocrine: Negative. Allergic/Immunologic: Negative. OBJECTIVE Objective: Physical Exam Constitutional: Appearance: Normal appearance. She is well-developed. Cardiovascular: Rate and Rhythm: Normal rate and regular rhythm. Pulmonary: Effort: Pulmonary effort is normal. Breath sounds: Normal breath sounds. Abdominal: General: Bowel sounds are normal. There is no distension. Palpations: Abdomen is soft. Tenderness: There is no abdominal tenderness. There is no guarding or rebound. Musculoskeletal: General: No swelling. Normal range of motion. Right lower leg: No edema. Left lower leg: No edema. Neurological: Mental Status: She is alert and oriented to person, place, and time. Skin: General: Skin is warm and dry. Psychiatric: Mood and Affect: Mood normal. Behavior: Behavior normal. Vitals and nursing note reviewed. Exam conducted with a vacuum bottle assembler present. Vitals: Estimated body mass index is 27.67 kg/m as calculated from the following: Height as of 06/16/23: 5' 2.25 . Weight as of this encounter: 152 lb 8 oz. BP: 104/66 Patient's last menstrual period was 01/21/2024. ASSESSMENT & PLAN ICD-10-CM 1. Second trimester Z34.92 POCT urinalysis dipstick manually resulted 2. 21 weeks gestation of Z3A.21 3. Moderately severe depression (CMS/HCC) F32.A citalopram (CeleXA) 20 MG tablet 4. Nausea and vomiting in O21.9 ondansetron ODT (Zofran-ODT) 4 MG disintegrating tablet Patient presents today for a routine obstetrics appointment. Patient is currently 21w5d with a Estimated Date of Delivery: 10/27/24. Pt still nauseated, rx for zofran and phenergan. Pt given ultrasound for low lying placenta. Pt given glucola order with instructions. Documented by Priscila Mercado LPN on behalf of: Jaguar Quintero DO documented in this encounter [facility] 05-25-2024 History of Presen t illness Narrative Reason for Appointment: Patient ID: Nicole Farris is a 28 y.o. female who presents for No chief complaint on file. Patient presents today for Annual Exam. and Return OB appointment. MEDICATIONS Current Outpatient Medications Medication Instructions citalopram (CELEXA) 20 mg, Oral, Daily fluticasone (Flonase) 50 MCG/ACT nasal spray 1-2 sprays, Each Nostril, Daily, Shake gently. Before first use, prime pump. After use, clean tip and replace cap metoclopramide (REGLAN) 10 mg, Oral, 3 times daily before meals, Take 1 tablet by mouth 30 minutes prior to meals 3 times daily as needed for nausea. ondansetron ODT (ZOFRAN-ODT) 4 mg, Every 8 hours PRN promethazine (PHENERGAN) 12.5 mg, Oral, Every 6 hours PRN, Take 1 tablet by mouth every 6 hours as needed for nausea. valACYclovir (Valtrex) 500 MG tablet TAKE 1 [...] 04/07/2023 Constipation 04/07/2023 Chronic GERD 04/07/2023 Goiter ([facility]) 04/07/2023 Migraine without aura and without status migrainosus, not intractable (CMS/HCC) 04/07/2023 Moderately severe depression ([facility]) 04/07/2023 Hyperemesis gravidarum 05/19/2024 Resolved Ambulatory Problems Diagnosis Date Noted No [...] Types: Cigarettes Quit date: 03/22/2017 Years since quittin.1 Smokeless tobacco: Never Tobacco comments: Last smoked : 1- 5 years Vaping Use Vaping status: Never Used Substance Use Topics Alcohol use: Not Currently Comment: caffeine intake : 1-2 cups per day Drug use: Not Currently Comment: hx of cocaine, heroin, alcohol addiction, quit in 2015 FAMILY HISTORY Family History Problem Relation Name [...] SYSTEMS Review of Systems: Review of Systems All other systems reviewed and are negative. OBJECTIVE Objective: Physical Exam Constitutional: Appearance: Normal appearance. She is well-developed. Genitourinary: Vulva normal. Right Adnexa: not tender and no mass present. Left Adnexa: not tender and no mass present. No cervical discharge. Breasts: Breasts are soft. Right: Normal. Left: Normal. HENT: Head: Normocephalic. Nose: Nose normal. Mouth/Throat: Mouth: Mucous membranes are moist. Cardiovascular: Rate and Rhythm: Normal rate and regular rhythm. Pulmonary: Effort: Pulmonary effort is normal. Breath sounds: Normal breath sounds. Abdominal: General: Bowel sounds are normal. There is no distension. Palpations: Abdomen is soft. Tenderness: There is no abdominal tenderness. There is no guarding or rebound. Musculoskeletal: General: No swelling. Normal range of motion. Cervical back: Normal range of motion. Right lower leg: No edema. Left lower leg: No edema. Neurological: General: No focal deficit present. Mental Status: She is alert and oriented to person, place, and time. Skin: General: Skin is warm and dry. Psychiatric: Mood and Affect: Mood normal. Behavior: Behavior normal. Vitals and nursing note reviewed. Exam conducted with a vacuum bottle assembler present. Vitals: Estimated body mass index is 28.27 kg/m as calculated from the following: Height as of 06/16/23: 5' 2.25 . Weight as of this encounter: 155 lb 12.8 oz. BP: 110/60 Patient's last menstrual period was 01/21/2024. ASSESSMENT & PLAN ICD-10-CM 1. 17 weeks gestation of Z3A.17 POCT urinalysis dipstick manually resulted Alpha fetoprotein, maternal Alpha fetoprotein, maternal 2. Second trimester Z34.92 POCT urinalysis dipstick manually resulted Alpha fetoprotein, maternal Alpha fetoprotein, maternal 3. Well woman exam with routine gynecological exam Z01.419 Pap Smear HPV DNA probe, amplified 4. Screening, , for anatomic survey Z36.89 US OB 14+ weeks anatomy scan US OB 14+ weeks anatomy scan 5. Exposure to STD Z20.2 CHLAMYDIA TRACHOMATIS (GENITO/STI) Neisseria gonorrhea DNA probe, direct 6. Vaginal discharge N89.8 SURESWAB(R) ADVANCED VAGINITIS PLUS, TMA Return OB/Annual Exam: Patient presents today for an annual exam/routine obstetrics appointment. Patient is currently 17w6d . Patient is doing well and states she has no complaints. Pap/cultures was obtained without difficulty and [facility]. Orders Placed This Encounter Procedures HPV DNA probe, amplified US OB 14+ weeks anatomy scan CHLAMYDIA TRACHOMATIS (GENITO/STI) Neisseria gonorrhea DNA probe, direct Alpha fetoprotein, maternal POCT urinalysis dipstick manually resulted Follow Up: Patient is to return to our office in 4 weeks for routine OB appointment Documented by Kelli Santiago LPN on behalf of: JORGE Coon documented in this encounter [facility] 04-24-2024 History of Presen t illness Narrative [...] 04/07/2023 Constipation 04/07/2023 Chronic GERD 04/07/2023 Goiter (CMS/HCC) 04/07/2023 Migraine without aura and without status [...] cocaine, heroin, alcohol addiction, quit in 2015 FAMILY HISTORY Family History Problem Relation Name [...] undercooked meat, and stay away from [facility]. Patient has been consulted regarding any further do's and don'ts of . Patient voiced understanding and all questions and concerns were answered. No orders of the defined types were placed in this encounter. Follow Up: Patient is to return in 4 weeks for routine OB appointment. Documented by Pat Jaime MA on behalf of: Jaguar Quintero DO documented in this encounter [facility] 03-24-2024 History of Presen t illness Narrative [...] 04/07/2023 Constipation 04/07/2023 Chronic GERD 04/07/2023 Goiter ([facility]) 04/07/2023 Migraine without aura and without status [...] 2018 to stretch bladder TONSILLECTOMY age 3 Allergies [...] undercooked meat, and stay away from [facility]. Patient has also been advised to [...] Chrissy Gomez MA documented in this encounter [facility] 12-02-2022 Evaluation note Encounter Date Diagnosis Assessment [...] time. Nov, Concentration deficit (ICD-10 - R41.840) [facility] 04-27-2023 Evaluation note* Encounter Date Diagnosis [...] f/u if no improvement or worsening symptoms. [facility] Other 03-16-2023 Evaluation note* Encounter Date Diagnosis [...] Z86.19) May, Chronic fatigue (ICD-10 - R53.82) [facility] Other 03-06-2023 Evaluation note* Encounter Date Diagnosis Assessment Notes Treatment Notes Treatment Clinical Notes May, SEEMA (generalized anxiety disorder) (ICD-10 - F41.1) She will call if this does not adequately control her symptoms May, Encounter for other contraceptive management (ICD-10 - Z30.8) [facility] Other 02-16-2023 Evaluation note* Encounter Date Diagnosis Assessment Notes Treatment Notes Treatment Clinical Notes Apr, SEEMA (generalized anxiety disorder) (ICD-10 - F41.1) [facility] Other 07-28-2022 NoteOPERATIVE NOTE OPERATION DATE: 10/16/2021 PROCEDURE: Repeat low transverse section. PREOPERATIVE DIAGNOSIS: 1. Intrauterine at 39 weeks. 2. Previous . POSTOPERATIVE DIAGNOSIS: 1. Intrauterine at 39 weeks. 2. Previous . ANESTHESIA: Spinal with Duramorph. SURGEON: Jaguar Quintero D.O. NEEDLE LOOM OPERATOR: KATHERINE Dao URINE OUTPUT: Yellow and [...] and cut. Cord blood was obtained. The infant was handed off to awaiting team. The [...] to the Recovery Room in stable condition.[id number] Note DISCHARGE DATE: 10/18/2021 PRIMARY DIAGNOSES: 1. [...] pain free and no longer on narcotics.[id number] History general Narrative - Reported* Type Description Date Medical History Hep C - cured as of August 2017 Medical History Miscarriage 06/2018 Surgical History Pre cancerous cells removed- ou tpatient Derm procedure 2012 Surgical History csection 10/16/2021 [facility] Other 06-01-2018 History general Narrative - Reported* Type Description Date Medical History Hep C - cured as of August 2017 Medical History Miscarriage 06/2018 Surgical History Pre cancerous cells removed- outpatient Derm procedure 2012 Surgical History x 2 10/16/2021 Surgical History tonsillectomy Hospitalization History see above Hospitalization History child x 2 [facility] Contractually Other [facility]No [facility] Other Evaluation noteNo assessment information available [facility] Work Phone: Evaluation note* Diagnosis Missed menses 8 weeks gestation of , unspecified gestational age Encounter for supervision of normal first in first trimester Nausea and vomiting in Unspecified vomiting of , unspecified as to episode of care documented in this encounter [facility]* Diagnosis 13 weeks gestation of First trimester state, incidental documented in this encounter [facility]* Diagnosis 17 weeks gestation of Second trimester state, incidental Well woman exam with routine gynecological exam Routine gynecological examination Screening, , for anatomic survey Encounter for anatomic survey Exposure to STD Vaginal discharge Leukorrhea, not specified as infective documented in this encounter [facility] HealthcareEvaluation note* Diagnosis Second trimester state, incidental 21 weeks gestation of Moderately severe depression (CMS/HCC) Nausea and vomiting in Unspecified vomiting of , unspecified as to episode of care Diabetes mellitus screening Screening for diabetes mellitus Low-lying placenta Hemorrhage from placenta previa, unspecified as to episode of care documented in this encounter [facility] Healthcare[facility]* Diagnosis Upper respiratory tract infection, unspecified type- Primary Second trimester state, incidental 25 weeks gestation of Vomiting complicating Unspecified vomiting of , unspecified as to episode of care documented in this encounter [facility] Healthcare[facility]* Diagnosis Gestational diabetes mellitus (GDM), antepartum, gestational diabetes method of control unspecified- Primary Third trimester state, incidental 31 weeks gestation of Elevated glucose tolerance test Impaired glucose tolerance test Anemia affecting in third trimester [facility] Additional Instructions Flexeril for needed for muscle spasms You cannot work or drive when taking Flexeril Ice for the next 24 hours and then rotate heat Tylenol or Motrin if needed for pain Take steroids as directed Follow-up with your doctor Gentle range of motion Avoid heavy lifting Return here if any problems persist [facility] Work Phone: Hospital Discharge instructions Additional Instructions Follow up with your OB-LOWERATOR OPERATOR Return to the ED if you develop worsening symptoms or [facility] Work Phone: Summary Purpose Family History Relationship Condition Age at Onset Recorded Date/T joe Not Specified No pertinent family history Unknown Advance Directives Advance Directive Response Recorded Date/ Time Advance [...] wks iup vomiting May 19, 2024 8:48am Chief Complaint Admit Date Vomiting, 11 wks April 05, 2024 2:35pm hard time urinating, vomiting, 18 wks pr egnant May 16, 2024 9:54am 17 wks iup vomiting May 19, 2024 8:48am vomiting June 07, 2024 10: 51am Chief Complaint Admit Date Vomiting, 11 wks April 05, 2024 2:35pm hard time urinating, vomiting, 18 wks pr egnant May 16, 2024 9:54am 17 wks iup vomiting May 19, 2024 8:48am vomiting June 07, 2024 10: 51am 24 wks preg vomiting, sob June 29 3:02pm Reason for Referral Reason concentration issues , uncontrolled anxiety, eval for ADHD Diagnosis 1 Concentration defici t (R41.840) Referral Organization [facility] [place] Referring Provider First Name Claribel Referring Provider Last Name Abby Referring Provider Specialty Family [facility] cine Referred Organization [facility] [place] Referred Address [address] [place], [place],[address] Referred Provider Specialty Psychologist Referral Priority Routine Additional Source Comments INFORMATION SOURCE (unrecogn ized section and content) DATE CREATED AUTHOR 09/13/2017 [place] [facility] DATE CREATED AUTHOR AUTHOR'S ORGANIZ ATION 05/25/2021 [facility] dical Specialist DATE CREATED AUTHOR AUTHOR'S ORGANIZ ATION 02/27/2022 [facility] DATE CREATED AUTHOR AUTHOR'S ORGANIZ ATION 07/15/2024 [facility] DATE CREATED AUTHOR AUTHOR'S ORGANIZ ATION 08/28/2024 [facility] dical Specialists EPIC REASON FOR VISIT (unrecogniz [...] November 25, 2023 End: November 25, 2023 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 Relationship Specialty Start Date End Date Kb Hollis DO [address] [place] [address] PCP - General Family Medicine 04/12/23 Enoch Villalobos DO [address] [place] [address] PCP - JOSE Cody [facility] 06/21/23 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 Relationship Specialty Start Date End Date Kb Hollis DO [address] [place] [address] PCP - General Family Medicine 04/12/23 Enoch Villalobos DO [address] [place] [address] PCP - [facility]OM[facility] [employer] 06/21/23 Team Status: Inactive Member Role Status Dates Yaz Hollis DO Primary Care Provider Active Start: March 04, 2024 End: March 04, 2024 Surjit Stanton DO Emergency Provider Active Start: March 04, 2024 End: March 04, 2024 Team Status: Inactive Member Role Status Dates Yaz Hollis DO Primary Care Provider Active Start: April 05, 2024 End: April 05, 2024 Parminder Serrano PA-C Emergency Provider Active Start: April 05, 2024 End: April 05, 2024 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 Relationship Specialty Start Date End Date Kb Hollis DO [address] [place] [address] PCP - General Family Medicine 04/12/23 Enoch Villalobos DO [address] [place] [address] PCP - JOSE Cody [facility] 06/21/23 5 Team Status: Inactive Member Role [...] May 19, 2024 End: May 19, 2024 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 Relationship Specialty Start Date End Date Kb Hollis DO [address] [place] [address] PCP - General Family Medicine 04/12/23 Enoch Villalobos DO [address] [place] [address] PCP - [facility] [place] [employer] 06/21/23 5 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 Relationship Specialty Start Date End Date Kb Hollis DO [address] [place] [address] PCP - General Family Medicine 04/12/23 Enoch Villalobos DO [address] [place] [address] PCP - [facility] 06/21/23 5 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 Relationship Specialty Start Date End Date Kb Hollis DO [address] [place] [address] PCP - General Family Medicine 04/12/23 Enoch Villalobos DO [address] [place] [address] PCP - [facility] 06/21/23 5 Team Status: Inactive Member Role Status Hilda Hollis DO Primary Care Provider Active Start: June 07, 2024 End: June 07, 2024 Mateo Navas DO Emergency Provider Active Sta rt: June 07, 2024 End: June 07, 2024 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 Relationship Specialty Start Date End Date Kb Hollis DO [address] [place] [address] PCP - General Family Medicine 04/12/23 Enoch Villalobos DO [address] [place] [address] PCP - [facility] [place] [employer] 06/21/23 5 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 Relationship Specialty Start Date End Date Kb Hollis DO [address] [place] [address] PCP - General Family Medicine 04/12/23 Enoch Villalobos DO [address] [place] [address] PCP - [facility] [place] [employer] 06/21/23 5 Team Status: Inactive Member Role Status Hilda Hollis DO Primary Care Provider Active Start: June 29, 2024 End: June 29, 2024 Parminder Serrano PA-C Emergency Provider Active Start: June 29, 2024 End: June 29, 2024 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 Relationship Specialty Start Date End Date Kb Hollis DO [address] [place] [address] PCP - General Family Medicine 04/12/23 Enoch Villalobos DO [address] [place] [address] PCP - [facility] [place] [employer] 06/21/23 5 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 Relationship Specialty Start Date End Date Kb Hollis DO [address] [place] [address] PCP - General Family Medicine 04/12/23 Enoch Villalobos DO [address] [place] [address] PCP - [facility] [place] [employer] 06/21/23 5 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 Relationship Specialty Start Date End Date Kb Hollis DO [address] [place] [address] PCP - General Family Medicine 04/12/23 Enoch Villalobos, DO [address] [place] [address] PCP - [facility] 06/21/232 5 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 [facility] [employer] [facility]. provides no warranty or guarantee of the accuracy or completeness of information in this document.
[2024-09-07 18:02] VITALS: BP 109/67; PULSE 112
== END 2024-09-07 18:55 | disposition home or self-care (01) ==
LOC: FBC 18:59 → FBCO 09-08 08:52
PROVIDERS: PCP Family Medicine; Visit Provider Obstetrics & Gynecology
DX: Z34.93 Encounter for supervision of normal pregnancy, unspecified, third trimester (principal); Z3A.32 32 weeks gestation of pregnancy
CPT/HCPCS: 76818

== ENCOUNTER 2024-09-08 16:10 | Observation (INO) | payer MEDICAID, SELFPAY ==
--- OUTSIDE RECORDS SUMMARY | 2024-09-08 16:14 | XMS_ITS | Patient Health Record ---
Author Organization [facility] Address [address] [place] [address] Care Team Providers Care Bed Placement Coordinator Name Role Phone [facility] Primary Care [...] Immunizations Vaccine Route Administration Date Status Comme [facility] [id number] Fluzone Quad PFS (0.5m L Admin) [...] Problem Status W/U Status Risk Notes Problem Anxiety and depression (F41.8) Active confirmed Plan Of Treatment No Information Insurance Providers Payer Name Payer Address Payer Phone Subscriber Number Group Number Insured Name Patient Relationship to Insured Coverage Start Date Coverage End Date [facility] [address] [place] [address] [id number] Nicole Farris Self - patient is the insured [employer] [place] [address] [place] [address] [phone] [id number] Nicole Farris Self - patient is the insured Medical (General) History Medical History History ICD Code Anxiety and depression F41.8 Surgical History Surgery Date(Month/Year) C section 10/16/2021 Hospitalization History Reason Date(Month/Year) surgeries
--- OUTSIDE RECORDS SUMMARY | 2024-09-08 16:21 | XMS_ITS | CCD ---
Author Organization [facility] Care Team Providers Care Acid Leveler Name Role Phone PRIYANKA, CHRISTOPHER Unavailable Unavailable [...] LISTED Primary Care Unavaila ble INGRID, DR PEIRRE Admitting Unavailable REQUEST, NONE LISTED Primary Care [...] Care Provider DO Adin Gan Attending Provider [phone] Claribel Mora Unavailable DO Yaz Hollis Primary Care Provider CHARLEEN Genao Emergency Provider Kb Hollis DO Primary Care Provider Enoch Villalobos DO Unavailable [phone] Yaz Hollis DO Primary Care Provider Surjit Stanton DO Emergency Provider Unavai Parminder Sorto PA-C Emergency Provider [phone] Enoch Villalobos DO Unavailable Glenn Abdullahi APRN Emergency Provider [phone] Yaz Hollis DO Primary Care Provider Parminder Powell PA-C Emergency Provider [phone] Glenn Abdullahi APRN Emergency Provider [phone] Mateo Navas DO Emergency Provider Yaz Hollis [...] Care Unavailable JAGUAR QUINTERO Attending Unavailable SULEMA LAU Attending Unavailable INGRID, JAGUAR Attending Unavailable INGRID, JAGUAR Referring Unavailable CORBY ROYAL Attending Unavailable INGRID, JAGUAR Attending Unavailable INGRID, JAGUAR Attending Unavailable RICARDO POWELL Attending Unavailable RICARDO POWELL Referring Unavailable Allergies Allergy Classification Reported Allergen(s) Allergy Type Date of Onset Reaction(s) Facility (1 source) black walnut pollen extract Drug Allergy [facility] Repository (8 sources) Codeine Drug Allergy 04-28-19 [address] [facility] Repository (8 sources) Penicillins Drug allergy (disorder) 04-28-19 21 [facility] Repository (1 source) Plasmin Drug Allergy 10-17-19 22 [facility] Repository (1 source) Sulfamethoxazole / Trimethoprim Drug Allergy 10-17-19 22 [facility] Repository (1 source) Sulfonamides (Antibiotic) Drug allergy (disorder) 10-17-19 22 [facility] Repository (20 sources) Codeine Drug Allergy 04-07-19 24 hives, Unknown [facility] Work Phone: (9 sources) Penicillin Drug Allergy [facility] [employer] Other (9 sources) Sulfamethoxazole / Trimethoprim Drug Allergy [facility] [employer] Other (13 sources) Sulfamethoxazole; Translations: [sulfamethoxazole] Drug Allergy 04-28-19 21 Swelling of Lip/Tongue/Thr oat, Swelling of Lip/Tongue/Thr oat, [facility] (13 sources) Trimethoprim; Translations: [trimethoprim] Drug Allergy 04-28-19 21 Swelling of Lip/Tongue/Thr oat, Swelling of Lip/Tongue/Thr oat, hives [facility] (18 sources) penicillAMINE Drug Allergy 04-07-19 Unknown [facility] (18 sources) Penicillin G Drug Allergy 04-12-19 [facility] Work Phone: (18 sources) Sulfamethoxazole / Trimethoprim Drug Allergy 04-12-19 [facility] (18 sources) Sulfonamides (Antibiotic) Drug Allergy 04-07-19 Unknown [facility] (18 sources) SUMAtriptan Drug Allergy 04-07-19 [facility] (1 source) Codeine Drug Allergy 06-30-19 [facility] Repository (1 source) Penicillins Drug allergy (disorder) 06-30-19 [facility] Repository (5 sources) Penicillins Drug Allergy 11-25-19 [facility] Medications Current Medications Medication Drug Class(es) Dates Sig (Normalized) Sig (Original) azithromycin 250 mg oral tablet (2 sources) Macrolide Antimicrobial Start: 07-19-2024 End: 07-24-2024 azithromycin (Zithromax) 250 MG tablet Indications: Upper respiratory tract infection, unspecified type Take 2 tablets on the first day, then 1 tablet daily for 4 days. 6 tablet 07/19/2024 07/24/2024 Active Blood Glucose Monitoring Suppl (D-Care Glucometer) w/Device kit (4 sources) Start: 08-28-2024 End: 08-28-2025 Blood Glucose Monitoring Suppl (D-Care Glucometer) w/Device kit Indications: Third trimester ([facility]) , Gestational diabetes mellitus (GDM), antepartum, gestational diabetes method of control unspecified ([facility]) , Elevated glucose tolerance test 1 kit [...] propionate 0.05 mg/actuat metered dose nasal spray (18 sources) Corticosteroid Start: 06-16-2023 take 1-2 spray(s) nasal route once daily fluticasone (Flonase) 50 MCG/ACT nasal spray Indications: Strep pharyngitis Administer 1-2 sprays into each nostril Daily Shake gently. Before first use, prime pump. After use, clean tip and replace cap 16 g 3 06/16/2023 Active isopropyl alcohol 0.7 ml/ml medicated pad (4 sources) Start: 08-28-2024 Alcohol Swabs (Alcohol Prep Pad) 70 % pads Indications: Third trimester ([facility]) , Gestational diabetes mellitus (GDM), antepartum, gestational diabetes method of control unspecified ([facility]) , Elevated glucose tolerance test Apply 1 Pad topically Daily Use four times daily to check FSBS. 150 each 3 08/28/2024 Active methylPREDNISolone 4 mg oral tablet (6 sources) Corticosteroid Start: 11-25-2023 take 1 tablet by mouth once Methylprednisolone (Medrol (Joes Ramon)) 4 mg tablets,dose pack Active 0 PO .COMPLEX November 25, 2023 12:00am orally per package directions metoclopramide 10 mg oral tablet (19 sources) Dopamine-2 Receptor Antagonist Start: 03-10-2024 End: 04-09-2024 metoclopramide (Reglan) 10 MG tablet Indications: Nausea and vomiting in ([facility]) Take 1 tablet (10 mg) by mouth [...] MG tablet Indications: Nausea and vomiting during ([facility]) Take 1 tablet (4 mg) by mouth every 6 (six) hours 30 tablet 2 08/10/2024 09/09/2024 Active Start: 07-06-2024 take 1 tablet by deshawn th every eight hours for nausea ondansetron ODT (Zofran-ODT) 4 MG disintegrating tablet Indications: Nausea and vomiting in ([facility]) Take 1 tablet (4 mg) by mouth [...] polysaccharide iron complex 391 mg oral capsule (4 sources) Start: 08-28-2024 End: 09-27-2024 take 1 capsule by mouth once daily iron polysaccharides (ProFe) 391.3 (180 Fe) MG capsule Indications: Third trimester ([facility]) , Anemia affecting in third trimester ([facility]) Take 1 capsule (391.3 mg) by mouth Daily 30 capsule 6 08/28/2024 09/27/2024 Active promethazine hydrochloride 12.5 mg oral tablet (17 sources) Phenothiazine Start: 06-21-2024 End: 09-19-2024 take 1 tablet by mouth every six hours for nausea promethazine (Phenergan) 12.5 MG tablet Indications: Nausea and vomiting in ([facility]) Take 1 tablet (12.5 mg) by mouth [...] 06/06/2024 Active valACYclovir 500 mg oral tablet (18 sources) Herpesvirus Nucleoside Analog DNA Polymerase Inhibitor, [...] capsule Discontinued 100 MG PO Twice daily 20 [...] 15, 2017 1:00am May 16, 2017 1:07am Qk-Te-Pnda-Fa-Herb al Cmplx#190 (Vitamin D3 Complete) 18 mg iron-800 mcg-150 mg Tablet (7 sources) Start: 05-09-2017 End: 06-05-2017 Sd-Ug-Awsf-Fa-Her bal Cmplx#190 (Vitamin D3 Complete) 18 mg iron-800 mcg-150 mg Tablet Discontinued TABLET May 09, 2017 12:00am June 05, 2017 12:56pm Start: 05-09-2017 End: 06-05-2017 Jp-Gr-Oyxf-Fa-Herbal Cmplx#1 90 (Vitamin D3 Complete) 18 mg [...] Three times daily as needed for pain May 09, 2017 1:00am June 05, 2017 [...] , unspecified control] 08-28-2024 Episodic Esophageal disorders (18 sources) Gastroesophageal reflux disease; Translations: [Gastro-esophageal reflux [...] Translations: [Chronic fatigue, unspecified] Chronic Menstrual disorders (19 sources) Missed period; Translations: [Irregular menstruation, unspecified] Onset: 4 03-24-2024 Chronic Mood disorders (20 sources) Moderately severe depression; Translations: [Moderately severe [...] , unspecified] 07-19-2024 Episodic Other congenital anomalies (18 sources) Birthmark; Translations: [Congenital non-neoplastic nevus] Onset: [...] [Cannabis abuse, uncomplicated] 06-29-2024 Chronic Thyroid disorders (18 sources) Goiter; Translations: [Nontoxic goiter, unspecified] Onset: [...] Value Interpretation Reference Range Facility US OB BPP W NON-STRESS on 09-08-2024 [place] [address] Ultrasound Report Signed Patient: NICOLE FARRIS MR#: [id number] : 1995 Acct:[id number] Age/Sex: 29 / F ADM Date: Loc: [facility] 250-[address]: Jaguar Quintero D.O. Ordering Physician: Jaguar Quintero D.O. Date of Service: 09/07/24 Procedure(s): US OB BPP w non-stress Accession Number(s): [id number] cc: Jaguar Quintero D.O.; Jimy HOLLIS [place] [address] Patient Name: NICOLE FARRIS MRN: [facility]:[id number] date: 1995 Sex: F Assigned Patient Location: [facility] Current Patient Location: [facility] Accession/Order Number: [id number] Exam Date: 09/08/2024 08:20 Report Date: 09/08/2024 08:22 At the request of: JAGUAR QUINTERO DO Procedure: US OB BPP w non-stress BIOPHYSICAL PROFILE: CLINICAL INFORMATION: 08/27 on previous BPP COMPARISON: 09/05/2024 There is a single live intrauterine gestation in cephalic presentation. The reported gestational age is 32 weeks 6 days. The heart rate measures 134 beats per minute. FINDINGS: TONE: 1 or more episodes of activity extension and flexion of extremity or opening and closing of the hand [Y] 2/2 GROSS BODY MOVEMENTS: 3 or more discrete body or limb movements [Y] 2/2 BREATHING MOVEMENTS: 1 or more episodes of breathing lasting at least 30 seconds [Y] 2/2 CINDY: A single deepest vertical pocket of amniotic fluid greater than 2 cm [Y] 2/2 CINDY: 17.8 cm. This is in upper normal range. Total score: 10/27 US/US OB BPP w non-stress IMPRESSION: NORMAL BIOPHYSICAL PROFILE. Impression dictated by: Priscila Barbosa M.D. 09/08/2024 8:22 AM Dictation Location: [place] [address] Electronically authenticated by: [id number] Y Date: 09/08/2024 08:22 Dictated By: Priscila Barbosa M.D. Signed By: 09/08/2424 DD/ 0822 TD/TT: Thermal Cutting Machine Operator: [facility] Radiology, Radiologparth cifuentes MD - 09/08/2024 [place] [address] Ultrasound Report Signed Patient: NICOLE FARRIS MR#: [id number] : 1995 Acct:[id number] Age/Sex: 29 / F ADM Date: Loc: [facility] 250-[address]: Jaguar Quintero D.O. Ordering Physician: Jaguar Quinetro D.O. Date of Service: 09/07/24 Procedure(s): US OB BPP w non-stress Accession Number(s): [id number] cc: Jaguar Quintero D.O.; Jimy HOLLIS [place] [id number] Patient Name: NICOLE FARRIS MRN: [facility]:[id number] date: 1995 Sex: F Assigned Patient Location: [facility] Current Patient Location: [facility] Accession/Order Number: [id number] Exam Date: 09/08/2024 08:20 Report Date: 09/08/2024 08:22 At the request of: JAGUAR QUINTERO DO Procedure: US OB BPP w non-stress BIOPHYSICAL PROFILE: CLINICAL INFORMATION: 08/27 on previous BPP COMPARISON: 09/05/2024 There is a single live intrauterine gestation in cephalic presentation. The reported gestational age is 32 weeks 6 days. The heart rate measures 134 beats per minute. FINDINGS: TONE: 1 or more episodes of activity extension and flexion of extremity or opening and closing of the hand [Y] 2/2 GROSS BODY MOVEMENTS: 3 or more discrete body or limb movements [Y] 2/2 BREATHING MOVEMENTS: 1 or more episodes of breathing lasting at least 30 seconds [Y] 2/2 CINDY: A single deepest vertical pocket of amniotic fluid greater than 2 cm [Y] 2/2 CINDY: 17.8 cm. This is in upper normal range. Total score: 10/27 US/US OB BPP w non-stress IMPRESSION: NORMAL BIOPHYSICAL PROFILE. Impression dictated by: Priscila Barbosa M.D. 09/08/2024 8:22 AM Dictation Location: [place] [address] Electronically authenticated by: [id number] Y Date: 09/08/2024 08:22 Dictated By: Priscila Barbosa M.D. Signed By: 09/08/24823 DD/ 1 TD/TT: Thermal Cutting Machine Operator: [facility] Radiology Study observation (narrative) [facility] US OB BPP W NON-STRESS Ordered By: Radiologist Radiology on 09-08-2024 [facility] Work Phone: US OB GROWTHon 09-06-2024 [place] [address] Ultrasound Report Signed Patient: NICOLE FARRIS MR#: [id number] : 1995 Acct:[id number] Age/Sex: 29 / F ADM Date: 09/05/24 Loc: US Attending Dr: Corby Royal Ordering Physician: Corby Royal Date of Service: 09/05/24 Procedure(s): US OB growth Accession Number(s): [id number] cc: Corby Royal; Jimy HOLLIS [place] [id number] Patient Name: NICOLE FARRIS MRN: [id number] date: 1995 Sex: F Assigned Patient Location: [facility] Current Patient Location: [facility] Accession/Order Number: [id number] Exam Date: 09/06/2024 07:48 Report Date: 09/06/2024 [...] Hurtado M.D. 09/06/2024 7:50 AM Dictation Location: [place] [address] Electronically authenticated by: [id number] Y Date: 09/06/2024 07:50 Dictated By: Mikie Hurtado D.O. Signed By: 09/06/24 0753 DD/ 0750 TD/TT: Thermal Cutting Machine Operator: [facility] Radiology, Radiologparth cifuentes MD - 09/06/2024 [place] [address] Ultrasound Report Signed Patient: NICOLE FARRIS MR#: [id number] : 1995 Acct:[id number] Age/Sex: 29 / F ADM Date: 09/05/24 Loc: US Attending Dr: Corby Royal Ordering Physician: Corby Royal Date of Service: 09/05/24 Procedure(s): US OB growth Accession Number(s): [id number] cc: Corby Royal; Jimy HOLLIS [place] [id number] Patient Name: NICOLE FARRIS MRN: [facility]:[id number] date: 1995 Sex: F Assigned Patient Location: [facility] Current Patient Location: [facility] Accession/Order Number: [id number] Exam Date: 09/06/2024 07:48 Report Date: 09/06/2024 [...] Hurtado M.D. 09/06/2024 7:50 AM Dictation Location: [place] [address] Electronically authenticated by: [id number] Y Date: 09/06/2024 07:50 Dictated By: Mikie Hurtado D.O. Signed By: 09/06/24 0753 DD/ 9 TD/TT: Thermal Cutting Machine Operator: [facility] Radiology Study observation (narrative) [facility] OB GROWTHOrdered By: Radi ologist Radiology on 09-06-2024 [facility] Work Phone: Urinalysis macro (dipstick) panel (U)on 08-28-2024 Bilirubin, UA Negative Negative - 4(70) +++ mg/dL [facility] Blood, UA Negative Negative - 50 Josiah/mcL [facility] Clarity, UA Clear [facility] Color, UA Felisha [facility] Glucose, UA Negative Negative - 2000(110) ++++ mg/dL [facility] Interpretation and review of laboratory results Abnormal [facility] Ketones, UA Positive Negative - 160(16) ++++ mg/dL [facility] Comment on above: 15 Leukocytes, UA Positive Negative - 500+++ Archana/mcL [facility] Comment on above: small Nitrite, UA Negative Negative - Positive [facility] pH, UA 6.5 5 - 9 [facility] Protein, UA Trace Negative - 2000(20) ++++ mg/dL [facility] Spec Grav, UA 1.025 1 - 1.03 [facility] Urobilinogen, UA 1.0 0.2 - 12 mg/dL Count includes the [facility] US OB LIMITED 1+ FETUSESon 0 [...] II, MD, PHD at 23-Jul-2024 08:53:16 PM [facility] Normal Not Available Comment on above: Order Comment: US OB PLACENTA W US OB TRANSVAGINAL Estimated Date of Delivery: 10/27/24 Gestational Age as of 06/21/2024: 21w5d Urinalysis macro (dipstick) panel (U)on 07-19-2024 Bilirubin, UA Negative Negative - 4(70) +++ mg/dL [facility] Blood, UA Negative Negative - 50 Josiah/mcL [facility] Clarity, UA Clear [facility] Color, UA Yellow [facility] Glucose, UA Negative Negative - 2000(110) ++++ mg/dL [facility] Interpretation and review of laboratory results Abnormal [facility] Ketones, UA Negative Negative - 160(16) ++++ mg/dL [facility] Leukocytes, UA Trace Negative - 500+++ Archana/mcL [facility] Nitrite, UA Negative Negative - Positive [facility] pH, UA 7 5 - 9 [facility] Protein, UA Negative Negative - 2000(20) ++++ mg/dL [facility] Spec Grav, UA 1.02 1 - 1.03 [facility] Urobilinogen, UA 0.2 0.2 - 12 mg/dL [facility] Alanine aminotransferase [En zymatic activity/volume] in Serum or PlasmaOrdered By: Parminder Powell on 06-29-2024 ALT [Catalytic activity/Vol] Alanine aminotransferase [Enzymatic activity/volume] in Serum or Plasma 7-52 [facility] Albumin [Mass/volume] in Ser um or Plasma by Bromocresol green (BCG) dye binding methoOrdered By: Parminder Powell on 06-29-2024 Albumin BCG dye [Mass/Vol] Albumin [Mass/volume] in Serum or Plasma by Bromocresol green (BCG) dye binding metho 3.5-5.7 [facility] Alkaline phosphatase [Enzyma tic activity/volume] in Serum or PlasmaOrdered By: Parminder Powell on 06-29-2024 ALP [Catalytic activity/Vol] Alkaline phosphatase [Enzymatic activity/volume] in Serum or Plasma 34-104 [facility] Amphetamine Screen Ql (U)Ord ered By: Parminder Powell on 06-29-2024 Amphetamines Ql (U) Amphetamines screen Negativ e [facility] Appearance of UrineOrdered B y: Parminder Powell on 06-29-2024 Appearance (U) Urine appearance Abnormal Clear [facility] Aspartate aminotransferase [ Enzymatic activity/volume] in Serum or PlasmaOrdered By: Parminder Powell on 06-29-2024 AST [Catalytic activity/Vol] Aspartate aminotransferase [Enzymatic activity/volume] in Serum or Plasma Low 13-39 [facility] Bacteria [Presence] in Urine by AutomatedOrdered By: Parminder Powell on 06-29-2024 Bacteria Auto Ql (U) Bacteria [Presence] in Urine by Automated None Seen [facility] Barbiturates [Presence] in U rine by Screen methodOrdered By: Parminder Powell on 06-29-2024 Barbiturates Screen Ql (U) Barbiturates [Presence] in Urine by Screen method Negative [facility] Basophils Auto (Bld) [#/Vol] Ordered By: Parminder Powell on 06-29-2024 Basophils (Bld) [#/Vol] Automated basophil count 0.0-0.2 [facility] Basophils/100 WBC Auto (Bld) Ordered By: Parminder Powell on 06-29-2024 Basophils/100 WBC (Bld) Automated basophil % . [facility] Benzodiazepines Screen Ql (U )Ordered By: Parminder Powell on 06-29-2024 Benzodiazepines Ql (U) Benzodiazepines [Presence] in Urine by Screen method Negative [facility] Benzoylecgonine [Presence] i n Urine by Screen methodOrdered By: Parminder Powell on 06-29-2024 Benzoylecgonine Screen Ql (U) Benzoylecgonine [Presence] in Urine by Screen method Negative [facility] Bilirubin Test strip Ql (U)O rdered By: Parminder Powell on 06-29-2024 Bilirubin Ql (U) Bilirubin.total [Pre sence] in Urine by Test strip Negative [facility] Bilirubin.total [Mass/volume ] in Serum or PlasmaOrdered By: Parminder Powell on 06-29-2024 Bilirubin [Mass/Vol] Bilirubin.total [Mass/volume] in Serum or Plasma 0.3-1.0 [facility] Calcium [Mass/volume] in Ser um or PlasmaOrdered By: Parminder Powell on 06-29-2024 Calcium [Mass/Vol] Calcium [Mass/volume ] in Serum or Plasma 8.6-10.3 [facility] Cannabinoids [Presence] in U rine by Screen methodOrdered By: Parminder Powell on 06-29-2024 Cannabinoids Screen Ql (U) Cannabinoids [Presence] in Urine by Screen method High Negative [facility] Comment on above: These are unconfirme d results and should not be used for legal purposes. Drug Cut-Off Concentration: AMPH 1000 ng/mL DENIS 200 ng/mL DIOR 200 ng/mL COCM 300 ng/mL OP 300 ng/mL PCP 25 ng/mL THC 20 ng/mL Carbon dioxide, total [Moles /volume] in Serum or PlasmaOrdered By: Parminder Powell on 06-29-2024 CO2 [Moles/Vol] Carbon dioxide, tota l [Moles/volume] in Serum or Plasma Low 21.0-31.0 [facility] Chloride [Moles/volume] in S mayte or PlasmaOrdered By: Parminder Powell on 06-29-2024 Chloride [Moles/Vol] Chloride [Moles/vol ume] in Serum or Plasma 98-107 [facility] Color Auto (U)Ordered By: Eduar Powell on 06-29-2024 Color (U) Color of Urine by [facility] Blood Count Auto Di ffon 06-29-2024 Basophils (Bld) [#/Vol] 0.0 10*3/uL Normal 0.0-0.2 [facility] Comment on above: Result Comment: PERF ORMED BY: [place] [address] PATHOLOGIST SENIOR SALES OPERATIONS MANAGER SARAH ANDREWS M.D. Performed By: #### H EPATIC, CBC, BMP, LIPASE #### [facility] [address] Basophils/100 WBC (Bld) 0.3 % Normal . [facility] Comment on above: Performed By: #### H EPATIC, CBC, BMP, LIPASE #### [address] Eosinophils (Bld) [#/Vol] 0.0 10*3/uL Normal 0.0-0.45 [facility] Comment on above: Performed By: #### H EPATIC, CBC, BMP, LIPASE #### [address] Eosinophils/100 WBC (Bld) 0.0 % Normal . [facility] Comment on above: Performed By: #### H EPATIC, CBC, BMP, LIPASE #### [address] Erythrocyte distribution width (RBC) [Ratio] 14.2 % Normal 11.9-15.3 [facility] Comment on above: Performed By: #### H EPATIC, CBC, BMP, LIPASE #### [address] Hematocrit (Bld) [Volume fraction] 31.2 % Low 34.0-46.4 [facility] Comment on above: Performed By: #### H EPATIC, CBC, BMP, LIPASE #### [address] Hemoglobin (Bld) [Mass/Vol] 10.3 g/dL Low 11.8-15.4 [facility] Comment on above: Performed By: #### H EPATIC, CBC, BMP, LIPASE #### [address] Lymphocytes (Bld) [#/Vol] 0.7 10*3/uL Low 1.00-4.8 [facility] Comment on above: Performed By: #### H EPATIC, CBC, BMP, LIPASE #### [address] Lymphocytes/100 WBC (Bld) 6.0 % Normal . [facility] Comment on above: Performed By: #### H EPATIC, CBC, BMP, LIPASE #### [address] MCH (RBC) [Entitic mass] 27.9 pg Normal 24.7-34.3 [facility] Comment on above: Performed By: #### H EPATIC, CBC, BMP, LIPASE #### [address] MCV (RBC) [Entitic vol] 84.8 fL Normal 80-100 [facility] Comment on above: Performed By: #### H EPATIC, CBC, BMP, LIPASE #### [address] Mean Corpuscular HGB Conc 32.9 g/dL Normal 32.0-35.0 [facility] Comment on above: Performed By: #### H EPATIC, CBC, BMP, LIPASE #### [address] Monocytes (Bld) [#/Vol] 0.2 10*3/uL Normal 0.0-0.8 [facility] Comment on above: Performed By: #### H EPATIC, CBC, BMP, LIPASE #### [address] Monocytes/100 WBC (Bld) 20.01 % High 0.00-20.00 [facility] Comment on above: Result Comment: For adults in ED, MDW > 20.0 may be associated with a higher risk of sepsis during the first 12 hrs of hospital admission Performed By: #### H EPATIC, CBC, BMP, LIPASE #### [address] Monocytes/100 WBC (Bld) 1.9 % Normal . [facility] Comment on above: Performed By: #### H EPATIC, CBC, BMP, LIPASE #### [address] Neutrophils (Bld) [#/Vol] 10.5 10*3/uL High 1.8-7.7 [facility] Comment on above: Performed By: #### H EPATIC, CBC, BMP, LIPASE #### [address] Neutrophils/100 WBC (Bld) 91.8 % Normal . [facility] Comment on above: Performed By: #### H EPATIC, CBC, BMP, LIPASE #### [address] NRBC% 0.1 /100{WBC} Normal 0-0.5 [facility] Comment on above: Performed By: #### H EPATIC, CBC, BMP, LIPASE #### [address] Platelet mean volume (Bld) [Entitic vol] 11.0 fL High 6.3-10.7 [facility] Comment on above: Performed By: #### H EPATIC, CBC, BMP, LIPASE #### [address] Platelets (Bld) [#/Vol] 206 10*3/uL Normal 150-450 [facility] Comment on above: Performed By: #### H EPATIC, CBC, BMP, LIPASE #### [address] RBC (Bld) [#/Vol] 3.69 10*6/uL Normal 3.60-5.00 [facility] Comment on above: Performed By: #### H EPATIC, CBC, BMP, LIPASE #### [address] WBC (Bld) [#/Vol] 11.4 10*3/uL Normal 3.8-11.6 [facility] Comment on above: Performed By: #### H EPATIC, CBC, BMP, LIPASE #### [address] Comprehensive Metabolic Pane blanquita 06-29-2024 Albumin [Mass/Vol] 3.8 g/dL Normal 3.5-5.7 [facility] Comment on above: Performed By: #### H EPATIC, CBC, BMP, LIPASE #### [address] Albumin/Globulin [Mass ratio] 1.0 {ratio} Normal [facility] Comment on above: Performed By: #### H EPATIC, CBC, BMP, LIPASE #### [address] ALP [Catalytic activity/Vol] 53 U/L Normal 34-104 [facility] Comment on above: Performed By: #### H EPATIC, CBC, BMP, LIPASE #### [address] ALT [Catalytic activity/Vol] 7 U/L Normal 7-52 [facility] Comment on above: Performed By: #### H EPATIC, CBC, BMP, LIPASE #### [address] Anion gap [Moles/Vol] Not performed Normal 6.0-15.0 [facility] Comment on above: Performed By: #### H EPATIC, CBC, BMP, LIPASE #### [address] Aspartate Amino Transferase Normal 13-39 [facility] Comment on above: Result Comment: Spec imen hemolyzed, redraw requested Performed By: #### H EPATIC, CBC, BMP, LIPASE #### [address] Bilirubin [Mass/Vol] 0.5 mg/dL Normal 0.3-1.0 [facility] Comment on above: Performed By: #### H EPATIC, CBC, BMP, LIPASE #### [address] Calcium [Mass/Vol] 9.5 mg/dL Normal 8.6-10.3 [facility] Comment on above: Performed By: #### H EPATIC, CBC, BMP, LIPASE #### [address] Chloride [Moles/Vol] 106 mmol/L Normal 98-107 [facility] Comment on above: Performed By: #### H EPATIC, CBC, BMP, LIPASE #### [place] [address] [place] CO2 [Moles/Vol] 19.4 mmol/L Low 21.0-31.0 The [facility] Comment on above: Performed By: #### H EPATIC, CBC, BMP, LIPASE #### [facility] [address] Creatinine [Mass/Vol] 0.44 mg/dL Low 0.60-1.20 [facility] Comment on above: Performed By: #### H EPATIC, CBC, BMP, LIPASE #### [address] Creatinine Clr Calc Pharmacy 173.12 Normal [facility] Comment on above: Performed By: #### H EPATIC, CBC, BMP, LIPASE #### [address] GFR/1.73 sq M.predicted MDRD (S/P/Bld) [Vol rate/Area] mL/min/{1.73_m2} Normal [facility] Comment on above: Performed By: #### H EPATIC, CBC, BMP, LIPASE #### [address] Globulin (S) [Mass/Vol] 3.7 g/dL Normal [facility] Comment on above: Performed By: #### H EPATIC, CBC, BMP, LIPASE #### [address] Glucose [Mass/Vol] 130 mg/dL High 70-100 [facility] Comment on above: Result Comment: [facility] Glucose Reference Range is dependent on time and content of last meal. Glucose of more than 200 mg/dL in a nonstressed, ambulatory subject supports the diagnosis of Diabetes Mellitus. ADA recommended reference range Performed By: #### H EPATIC, CBC, BMP, LIPASE #### [address] Potassium Normal 3.5-5.1 [facility] Comment on above: Result Comment: Spec imen hemolyzed, redraw requested Performed By: #### H EPATIC, CBC, BMP, LIPASE #### [address] Protein [Mass/Vol] 7.5 g/dL Normal 6.4-8.9 [facility] Comment on above: Performed By: #### H EPATIC, CBC, BMP, LIPASE #### [facility] [address] Sodium [Moles/Vol] 138 mmol/L Normal 136-145 [facility] Comment on above: Performed By: #### H EPATIC, CBC, BMP, LIPASE #### [facility] [address] Urea nitrogen [Mass/Vol] 8 mg/dL Normal 7-25 [facility] Comment on above: Performed By: #### H EPATIC, CBC, BMP, LIPASE #### [address] Creatinine [Mass/volume] in Serum or PlasmaOrdered By: Parminder Powell on 06-29-2024 Creatinine [Mass/Vol] Creatinine [Mass/v olume] in Serum or Plasma Low 0.60-1.20 [facility] Crystals [Presence] in Urine by AutomatedOrdered By: Parminder Powell on 06-29-2024 Crystals Auto Ql (U) Crystals [Presence] in Urine by Automated [facility] Dipstick and Microscopicon 0 06-29-2024 Appearance (U) Cloudy Critically abnormal Clear [facility] Comment on above: Order Comment: Name Collection Type:: Clean-Voided Midstream Performed By: #### A DDONUAPLUS, URDS, CUU #### [facility] [address] [place] [address] [place] Bacteria,Urine Rare Normal None Seen The [facility] Comment on above: Order Comment: Name Collection Type:: Clean-Voided Midstream Performed By: #### A DDONUAPLUS, URDS, CUU #### [facility] [address] [place] [address] [place] Bilirubin,Urine Negative Normal Negative [facility] Comment on above: Order Comment: Name Collection Type:: Clean-Voided Midstream Performed By: #### A DDONUAPLUS, URDS, CUU #### [address] Color (U) Light-Yellow Normal Yellow [facility] Comment on above: Order Comment: Name Collection Type:: Clean-Voided Midstream Performed By: #### A DDONUAPLUS, URDS, CUU #### [address] Glucose Ql (U) 50 mg/dL High Normal The [facility] Comment on above: Order Comment: Name Collection Type:: Clean-Voided Midstream Performed By: #### A DDONUAPLUS, URDS, CUU #### [place] [address] [place] Hyaline Casts,Urine None Normal 0-8 [facility] Comment on above: Order Comment: Name Collection Type:: Clean-Voided Midstream Performed By: #### A DDONUAPLUS, URDS, CUU #### [address] Ketones Ql (U) 4+ High Negative [facility] Comment on above: Order Comment: Name Collection Type:: Clean-Voided Midstream Performed By: #### A DDONUAPLUS, URDS, CUU #### [address] Leukocyte esterase Test strip Ql (U) 3+ High Negative [facility] Comment on above: Order Comment: Name Collection Type:: Clean-Voided Midstream Performed By: #### A DDONUAPLUS, URDS, CUU #### [place] [address] [place] Mucus,Urine Rare Normal [facility] Comment on above: Order Comment: Name Collection Type:: Clean-Voided Midstream Result Comment: PERF ORMED BY: [place] [address] PATHOLOGIST SENIOR SALES OPERATIONS MANAGER SARAH ANDREWS M.D. Performed By: #### A DDONUAPLUS, URDS, CUU #### [place] [address] [place] Nitrite,Urine Negative Normal Negative [facility] Comment on above: Order Comment: Name Collection Type:: Clean-Voided Midstream Performed By: #### A DDONUAPLUS, URDS, CUU #### [address] Occult Blood,Urine Negative Normal Negative [facility] Comment on above: Order Comment: Name Collection Type:: Clean-Voided Midstream Result Comment: PERF ORMED BY: [place] [address] PATHOLOGIST SENIOR SALES OPERATIONS MANAGER SARAH ANDREWS M.D. Performed By: #### A DDONUAPLUS, URDS, CUU #### [address] Othe Crystals,Urine 2+ Normal [facility] Comment on above: Order Comment: Name Collection Type:: Clean-Voided Midstream Performed By: #### A DDONUAPLUS, URDS, CUU #### [place] [address] [place] pH (U) 8.5 [pH] Normal 5.0-9.0 [facility] Comment on above: Order Comment: Name Collection Type:: Clean-Voided Midstream Performed By: #### A DDONUAPLUS, URDS, CUU #### [address] Protein (U) [Mass/Vol] 30 mg/dL High Negative [facility] Comment on above: Order Comment: Name Collection Type:: Clean-Voided Midstream Performed By: #### A DDONUAPLUS, URDS, CUU #### [place] [address] [place] RBC,Urine 3-4 Normal 0-4 [facility] Comment on above: Order Comment: Name Collection Type:: Clean-Voided Midstream Performed By: #### A DDONUAPLUS, URDS, CUU #### [place] [address] [place] Specificy [place],Urine 1.019 Normal 1.001-1.03 0 [facility] Comment on above: Order Comment: Name Collection Type:: Clean-Voided Midstream Performed By: #### A DDONUAPLUS, URDS, CUU #### [address] Squamous Epithelial Cell,Urine 5-9 High 0-2 [facility] Comment on above: Order Comment: Name Collection Type:: Clean-Voided Midstream Performed By: #### A DDONUAPLUS, URDS, CUU #### [place] [address] [place] Urobilinogen,Urine Normal Normal Normal [facility] Comment on above: Order Comment: Name Collection Type:: Clean-Voided Midstream Performed By: #### A DDONUAPLUS, URDS, CUU #### [address] WBC,Urine 10-19 High 0-4 [facility] Comment on above: Order Comment: Name Collection Type:: Clean-Voided Midstream Performed By: #### A DDONUAPLUS, URDS, CUU #### [place] [address] [place] Drug Screen,Urineon 06-30-19 25 Amphetamine Screen,Urine Negative Normal Negative [facility] Comment on above: Performed By: #### A DDONUAPLUS, URDS, CUU #### [place] [address] [place] Barbiturate Screen,Urine Negative Normal Negative [facility] Comment on above: Performed By: #### A DDONUAPLUS, URDS, CUU #### [place] [address] [place] Benzodiazepines Screen,Urine Negative Normal Negative [facility] Comment on above: Performed By: #### A DDONUAPLUS, URDS, CUU #### [address] Cannabinoid Screen,Urine Positive High Negative [facility] Comment on above: Result Comment: Thes e are unconfirmed results and should not be used for legal purposes. Drug Cut-Off Concentration: AMPH 1000 ng/mL DENIS 200 ng/mL DIOR 200 ng/mL COCM 300 ng/mL OP 300 ng/mL PCP 25 ng/mL THC 20 ng/mL PERFORMED BY: [place] [address] PATHOLOGIST S[employer]IOR SALES OPERATIONS MANAGER SARAH ANDREWS M.D. Performed By: #### A DDONUAPLUS, URDS, CUU #### [address] Cocaine Screen,Urine Negative Normal Negative [facility] Comment on above: Performed By: #### A DDONUAPLUS, URDS, CUU #### [address] Opiate Screen,Urine Negative Normal Negative [facility] Comment on above: Performed By: #### A DDONUAPLUS, URDS, CUU #### [address] Phencyclidine Screen,Urine Negative Normal Negative [facility] Comment on above: Performed By: #### A DDONUAPLUS, URDS, CUU #### [address] ECG 12 lead ECGon 06-29-2024 ECG 12 lead ECG [facility] [place] [address] Electrocardiograph Report Signed Patient: Nicole Farris MR#: [id number] : 1995 Acct:[id number] Age/Sex: 28 / F ADM Date: 06/29/24 Loc: ER Room: Type: [facility] ER Attending Dr: Ordering Provider: Parminder Powell [...] ECGs available Confirmed by SALUD SCHWARZ DO ([id number]) on 06/30/2024 7:11:38 PM Referred By: Electronically Signed By: SALUD SCHWARZ DO Transcribed By: MUS Signed By Salud Schwarz DO 06/30 191 Normal [facility] Eosinophils Auto (Bld) [#/Vo l]Ordered By: Parminder Powell on 06-29-2024 Eosinophils (Bld) [#/Vol] Automated eosinophil count 0.0-0.45 [facility] Eosinophils/100 WBC Auto (Bl d)Ordered By: Parminder Powell on 06-29-2024 Eosinophils/100 WBC (Bld) Automated eosinophil % . [facility] Epithelial cells.squamous [# /area] in Urine sediment by Automated countOrdered By: Parminder Powell on 06-29-2024 Epithelial cells.squamous Auto (Urine sed) [#/Area] Epithelial cells.squamous [#/area] in Urine sediment by Automated count High 0-2 [facility] Erythrocyte distribution wid th Auto (RBC) [Ratio]Ordered By: Parminder Powell on 06-29-2024 Erythrocyte distribution width (RBC) [Ratio] Erythrocyte distribution width [Ratio] by Automated count 11.9-15.3 [facility] Erythrocytes [#/area] in Uri ne sediment by Automated countOrdered By: Parminder Powell on 06-29-2024 RBC Auto (Urine sed) [#/Area] Erythrocytes [#/area] in Urine sediment by Automated count 0-4 [facility] Globulin Calc (S) [Mass/Vol] Ordered By: Parminder Powell on 06-29-2024 Globulin (S) [Mass/Vol] Serum globulin measurement by calculation (mass/volume) [facility] Glucose [Mass/volume] in Ser um or PlasmaOrdered By: Parminder Powell on 06-29-2024 Glucose [Mass/Vol] Glucose [Mass/volume ] in Serum or Plasma High 70-100 [facility] Comment on above: ADA recommended refe rence rangeRandom Glucose Reference Range is dependent on time and content of last meal. Glucose of more than 200 mg/dL in a nonstressed, ambulatory subject supports the diagnosis of Diabetes Mellitus. Glucose [Mass/volume] in Uri ne by Test stripOrdered By: Parminder Powell on 06-29-2024 Glucose Test strip (U) [Mass/Vol] Glucose [Mass/volume] in Urine by Test strip High Normal [facility] Hematocrit Auto (Bld) [Volum e fraction]Ordered By: Parminder Powell on 06-29-2024 Hematocrit (Bld) [Volume fraction] Hematocrit [Volume Fraction] of Blood by Automated count Low 34.0-46.4 [facility] Hemoglobin Test strip Ql (U) Ordered By: Parminder Powell on 06-29-2024 Hemoglobin Ql (U) Hemoglobin [Presence ] in Urine by Test strip Negative [facility] Hemoglobin [Mass/volume] in BloodOrdered By: Parminder Powell on 06-29-2024 Hemoglobin (Bld) [Mass/Vol] Hemoglobin [Mass/volume] in Blood Low 11.8-15.4 [facility] Hyaline casts [#/area] in Ur ine sediment by Automated countOrdered By: Parminder Powell on 06-29-2024 Hyaline casts Auto (Urine sed) [#/Area] Hyaline casts [#/area] in Urine sediment by Automated count 0-8 [facility] Ketones Test strip Ql (U)Ord ered By: Parminder Powell on 06-29-2024 Ketones Ql (U) Ketones [Presence] i n Urine by Test strip High Negative [facility] Leukocyte esterase [Presence ] in Urine by Test stripOrdered By: Parminder Powell on 06-29-2024 Leukocyte esterase Test strip Ql (U) Leukocyte esterase [Presence] in Urine by Test strip High Negative [facility] Leukocytes [#/area] in Urine sediment by Automated countOrdered By: Parminder Powell on 06-29-2024 WBC Auto (Urine sed) [#/Area] Leukocytes [#/area] in Urine sediment by Automated count High 0-4 [facility] Leukocytes [#/volume] correc rossy for nucleated erythrocytes in Blood by Automated counOrdered By: Parminder Powell on 06-29-2024 WBC corrected for nucl RBC Auto (Bld) [#/Vol] Leukocytes [#/volume] corrected for nucleated erythrocytes in Blood by Automated coun 3.8-11.6 [facility] Lymphocytes Auto (Bld) [#/Vo l]Ordered By: Parminder Powell on 06-29-2024 Lymphocytes (Bld) [#/Vol] Lymphocytes [#/volume] in Blood by Automated count Low 1.00-4.8 [facility] Lymphocytes/100 WBC Auto (Bl d)Ordered By: Parminder Powell on 06-29-2024 Lymphocytes/100 WBC (Bld) Lymphocytes/100 leukocytes in Blood by Automated count . [facility] MCH Auto (RBC) [Entitic mass ]Ordered By: Parminder Powell on 06-29-2024 MCH (RBC) [Entitic mass] MCH [Entitic mass] by Automated count 24.7-34.3 [facility] MCHC Auto (RBC) [Mass/Vol]Or dered By: Parminder Powell on 06-29-2024 MCHC (RBC) [Mass/Vol] MCHC [Mass/volume] by Automated count 32.0-35.0 [facility] MCV Auto (RBC) [Entitic vol] Ordered By: Parminder Powell on 06-29-2024 MCV (RBC) [Entitic vol] MCV [Entitic volume] by Automated count 80-100 [facility] Magnesiumon 06-29-2024 Magnesium Normal 1.9-2.7 [facility] Comment on above: Result Comment: Spec imen hemolyzed, redraw requested PERFORMED BY: [place] [address] PATHOLOGIST SENIOR SALES OPERATIONS MANAGER SARAH ANDREWS M.D. Performed By: #### H EPATIC, CBC, BMP, LIPASE #### [facility] [address] [place] [address] Magnesium [Mass/volume] in S mayte or PlasmaOrdered By: Parminder Powell on 06-29-2024 Magnesium [Mass/Vol] Magnesium [Mass/vol ume] in Serum or Plasma Low 1.9-2.7 [facility] Monocyte distribution width [Entitic volume] in Blood by AutomatedOrdered By: Parminder Powell on 06-29-2024 Monocyte distribution width Auto (Bld) [Entitic vol] Monocyte distribution width [Entitic volume] in Blood by Automated High 0.00-20.00 [facility] Comment on above: For adults in ED, MD W > 20.0 may be associated with a higher risk of sepsis during the first 12 hrs of hospital admission Monocytes Auto (Bld) [#/Vol] Ordered By: Parminder Powell on 06-29-2024 Monocytes (Bld) [#/Vol] Automated blood monocyte count 0.0-0.8 [facility] Monocytes/100 WBC Auto (Bld) Ordered By: Parminder Powell on 06-29-2024 Monocytes/100 WBC (Bld) Automated monocyte % . [facility] Mucus [Presence] in Urine by AutomatedOrdered By: Parminder Powell on 06-29-2024 Mucus Auto Ql (U) Mucus [Presence] in Urine by Automated [facility] Neutrophils Auto (Bld) [#/Vo l]Ordered By: Parminder Powell on 06-29-2024 Neutrophils (Bld) [#/Vol] Neutrophils [#/volume] in Blood by Automated count High 1.8-7.7 [facility] Neutrophils/100 WBC Auto (Bl d)Ordered By: Parminder Powell on 06-29-2024 Neutrophils/100 WBC (Bld) Automated neutrophil % . [facility] Nitrite Test strip Ql (U)Ord ered By: Parminder Powell on 06-29-2024 Nitrite Ql (U) Nitrite [Presence] i n Urine by Test strip Negative [facility] No Panel InformationOrdered By: Parminder Powell on 06-29-2024 Estimated GFR (CKD-EPI) > 60.0 mL/Min [facility] Creatinine Clearance (Chem 173.12 [facility] Nucleated erythrocytes [Pres ence] in Blood by Automated countOrdered By: Parminder Powell on 06-29-2024 Nucleated RBC Auto Ql (Bld) Nucleated erythrocytes [Presence] in Blood by Automated count 0-0.5 [facility] Opiates [Presence] in Urine by Screen methodOrdered By: Parminder Powell on 06-29-2024 Opiates Screen Ql (U) Opiates [Presence] in Urine by Screen method Negative [facility] Phencyclidine Screen Ql (U)O rdered By: Parminder Powell on 06-29-2024 Phencyclidine Ql (U) Phencyclidine [Pres ence] in Urine by Screen method Negative [facility] Platelet mean volume Auto (B ld) [Entitic vol]Ordered By: Parminder Powell on 06-29-2024 Platelet mean volume (Bld) [Entitic vol] Platelet mean volume [Entitic volume] in Blood by Automated count High 6.3-10.7 [facility] Platelets Auto (Bld) [#/Vol] Ordered By: Parminder Powell on 06-29-2024 Platelets (Bld) [#/Vol] Platelets [#/volume] in Blood by Automated count 150-450 [facility] Potassium [Moles/volume] in Serum or PlasmaOrdered By: Parminder Powell on 06-29-2024 Potassium [Moles/Vol] Potassium [Moles/v olume] in Serum or Plasma 3.5-5.1 [facility] Protein Test strip (U) [Mass /Vol]Ordered By: Parminder Powell on 06-29-2024 Protein (U) [Mass/Vol] Protein [Mass/volume] in Urine by Test strip High Negative [facility] Protein [Mass/volume] in Ser um or PlasmaOrdered By: Parminder Powell on 06-29-2024 Protein [Mass/Vol] Protein [Mass/volume ] in Serum or Plasma 6.4-8.9 [facility] RBC Auto (Bld) [#/Vol]Ordere d By: Parminder Powell on 06-29-2024 RBC (Bld) [#/Vol] Erythrocytes [#/volu me] in Blood by Automated count 3.60-5.00 [facility] Redraw Shine 06-29-2024 AST [Catalytic activity/Vol] 10 U/L Low 13-39 [facility] Comment on above: Result Comment: PERF ORMED BY: [place] [address] PATHOLOGIST SENIOR SALES OPERATIONS MANAGER SARAH ANDREWS M.D. Performed By: #### H EPATIC, CBC, BMP, LIPASE #### [facility] [address] Redraw Magnesiumon Magnesium [Mass/Vol] 1.7 mg/dL Low 1.9-2.7 [facility] Comment on above: Performed By: #### H EPATIC, CBC, BMP, LIPASE #### [facility] [address] Redraw Potassiumon Potassium [Moles/Vol] 3.8 mmol/L Normal 3.5-5.1 [facility] Comment on above: Performed By: #### H EPATIC, CBC, BMP, LIPASE #### [facility] [address] Serum or plasma albumin/glob ulin mass ratioOrdered By: Parminder Powell on 06-29-2024 Albumin/Globulin [Mass ratio] Serum or plasma albumin/globulin mass ratio [facility] Serum or plasma anion gap de terminationOrdered By: Parminder Powell on 06-29-2024 Anion gap [Moles/Vol] Serum or plasma an ion gap determination [facility] Comment on above: Test not performed Sodium [Moles/volume] in Ser um or PlasmaOrdered By: Parminder Powell on 06-29-2024 Sodium [Moles/Vol] Sodium [Moles/volume ] in Serum or Plasma 136-145 [facility] Specific gravity Test strip (U) [Rel density]Ordered By: aPrminder Powell on 06-29-2024 Specific gravity (U) [Rel density] Specific gravity of Urine by Test strip 1.001-1.03 0 [facility] Urea nitrogen [Mass/volume] in Serum or PlasmaOrdered By: Parminder Powell on 06-29-2024 Urea nitrogen [Mass/Vol] Urea nitrogen [Mass/volume] in Serum or Plasma 7-25 [facility] Urine Cultureon 06-29-2024 Bacteria identified Cx Nom (U) <9,000 colonies/ml mixed bacterial skin contaminants 2 Days PERFORMED BY: [facility] [address] [place] [address] PATHOLOGIST SENIOR SALES OPERATIONS MANAGER SARAH ANDREWS M.D. Normal [facility] Comment on above: Performed By: #### A DDONUAPLUS, URDS, CUU #### [facility] [address] Urobilinogen Test strip (U) [Mass/Vol]Ordered By: Parminder Powell on 06-29-2024 Urobilinogen (U) [Mass/Vol] Urobilinogen [Mass/volume] in Urine by Test strip Normal [facility] WBC Auto (Bld) [#/Vol]Ordere d By: Parminder Powell on 06-29-2024 WBC (Bld) [#/Vol] Leukocytes [#/volume ] in Blood by Automated count 3.8-11.6 [facility] pH Test strip (U)Ordered By: Parminder Powell on 06-29-2024 pH (U) pH of Urine by Test strip 5.0-9.0 [facility] Urinalysis macro (dipstick) panel (U)on 06-21-2024 Bilirubin, UA Negative Negative - 4(70) +++ mg/dL [facility] Blood, UA Negative Negative - 50 Josiah/mcL [facility] Clarity, UA Clear [facility] Color, UA Yellow [facility] Glucose, UA Negative Negative - 2000(110) ++++ mg/dL [facility] Interpretation and review of laboratory results Abnormal [facility] Ketones, UA Negative Negative - 160(16) ++++ mg/dL [facility] Leukocytes, UA Trace Negative - 500+++ Archana/mcL [facility] Nitrite, UA Negative Negative - Positive [facility] pH, UA 7 5 - 9 [facility] Protein, UA Trace Negative - 1999(20) ++++ mg/dL [facility] Spec Grav, UA 1.025 1 - 1.03 [facility] Urobilinogen, UA 0.2 0.2 - 12 mg/dL Count includes the [facility] Alanine aminotransferase [En zymatic activity/volume] in Serum or PlasmaOrdered By: Mateo Navas on 06-07-2024 ALT [Catalytic activity/Vol] Alanine aminotransferase [Enzymatic activity/volume] in Serum or Plasma 7 [facility] Albumin [Mass/volume] in Ser um or Plasma by Bromocresol green (BCG) dye binding methoOrdered By: Mateo Navas on 06-07-2024 Albumin BCG dye [Mass/Vol] Albumin [Mass/volume] in Serum or Plasma by Bromocresol green (BCG) dye binding metho 3.5-5.7 [facility] Alkaline phosphatase [Enzyma tic activity/volume] in Serum or PlasmaOrdered By: Mateo Navas on 06-07-2024 ALP [Catalytic activity/Vol] Alkaline phosphatase [Enzymatic activity/volume] in Serum or Plasma 34-104 [facility] Amphetamine Screen Ql (U)Ord ered By: Mateo Navas on 06-07-2024 Amphetamines Ql (U) Amphetamines screen Negativ e [facility] Appearance of UrineOrdered B y: Mateo Navas on 06-07-2024 Appearance (U) Urine appearance Clear [facility] Aspartate aminotransferase [ Enzymatic activity/volume] in Serum or PlasmaOrdered By: Mateo Navas on 06-07-2024 AST [Catalytic activity/Vol] Aspartate aminotransferase [Enzymatic activity/volume] in Serum or Plasma Low 13-39 [facility] Barbiturates [Presence] in U rine by Screen methodOrdered By: Mateo Navas on 06-07-2024 Barbiturates Screen Ql (U) Barbiturates [Presence] in Urine by Screen method Negative [facility] Basic Metabolic Panelon 05-20 Anion gap [Moles/Vol] 12.8 mmol/L Normal 6.0-15.0 [facility] Comment on above: Performed By: #### H EPATIC, CBC, BMP, LIPASE #### [facility] [address] Calcium [Mass/Vol] 8.7 mg/dL Normal 8.6-10.3 [facility] Comment on above: Performed By: #### H EPATIC, CBC, BMP, LIPASE #### [facility] [address] [place] [address] [place] Chloride [Moles/Vol] 109 mmol/L High 98-107 [facility] Comment on above: Performed By: #### H EPATIC, CBC, BMP, LIPASE #### [facility] [address] [place] [id number] [place] CO2 [Moles/Vol] 19.6 mmol/L Low 21.0-31.0 [facility] Comment on above: Performed By: #### H EPATIC, CBC, BMP, LIPASE #### [facility] [address] [place] [id number] [place] Creatinine [Mass/Vol] 0.46 mg/dL Low 0.60-1.20 [facility] Comment on above: Performed By: #### H EPATIC, CBC, BMP, LIPASE #### [address] Creatinine Clr Calc Pharmacy 167.01 Normal [facility] Comment on above: Performed By: #### H EPATIC, CBC, BMP, LIPASE #### [address] GFR/1.73 sq M.predicted MDRD (S/P/Bld) [Vol rate/Area] mL/min/{1.73_m2} Normal [facility] Comment on above: Performed By: #### H EPATIC, CBC, BMP, LIPASE #### [address] Glucose [Mass/Vol] 156 mg/dL High 70-100 [facility] Comment on above: Result Comment: [place] Glucose Reference Range is dependent on time and content of last meal. Glucose of more than 200 mg/dL in a nonstressed, ambulatory subject supports the diagnosis of Diabetes Mellitus. ADA recommended reference range Performed By: #### H EPATIC, CBC, BMP, LIPASE #### [address] Potassium [Moles/Vol] 3.4 mmol/L Low 3.5-5.1 [facility] Comment on above: Performed By: #### H EPATIC, CBC, BMP, LIPASE #### [address] Sodium [Moles/Vol] 138 mmol/L Normal 136-145 [facility] Comment on above: Performed By: #### H EPATIC, CBC, BMP, LIPASE #### [address] Urea nitrogen [Mass/Vol] 6 mg/dL Low 7-25 [facility] Comment on above: Performed By: #### H EPATIC, CBC, BMP, LIPASE #### [address] Basophils Auto (Bld) [#/Vol] Ordered By: Mateo Navas on 06-07-2024 Basophils (Bld) [#/Vol] Automated basophil count 0.0-0.2 [facility] Basophils/100 WBC Auto (Bld) Ordered By: Mateo Navas on 06-07-2024 Basophils/100 WBC (Bld) Automated basophil % . [facility] Benzodiazepines Screen Ql (U )Ordered By: Mateo Navas on 06-07-2024 Benzodiazepines Ql (U) Benzodiazepines [Presence] in Urine by Screen method Negative [facility] Benzoylecgonine [Presence] i n Urine by Screen methodOrdered By: Mateo Navas on 06-07-2024 Benzoylecgonine Screen Ql (U) Benzoylecgonine [Presence] in Urine by Screen method Negative [facility] Bilirubin Test strip Ql (U)O rdered By: Mateo Navas on 06-07-2024 Bilirubin Ql (U) Bilirubin.total [Pre sence] in Urine by Test strip Negative [facility] Bilirubin.direct [Mass/volum e] in Serum or PlasmaOrdered By: Mateo Navas on 06-07-2024 Bilirubin.direct [Mass/Vol] Bilirubin.direct [Mass/volume] in Serum or Plasma Low 0.03-0.18 [facility] Comment on above: If the DBIL is less than 0.1, IBIL is not able to becalculated. Bilirubin.total [Mass/volume ] in Serum or PlasmaOrdered By: Mateo Navas on 06-07-2024 Bilirubin [Mass/Vol] Bilirubin.total [Mass/volume] in Serum or Plasma 0.3-1.0 [facility] Calcium [Mass/volume] in Ser um or PlasmaOrdered By: Mateo Navas on 06-07-2024 Calcium [Mass/Vol] Calcium [Mass/volume ] in Serum or Plasma 8.6-10.3 [facility] Cannabinoids [Presence] in U rine by Screen methodOrdered By: Mateo Navas on 06-07-2024 Cannabinoids Screen Ql (U) Cannabinoids [Presence] in Urine by Screen method High Negative [facility] Comment on above: These are unconfirme [...] Serum or Plasma Low 21.0-31.0 [facility] Chloride [Moles/volume] in S mayte or PlasmaOrdered By: Mateo Navas on 06-07-2024 Chloride [Moles/Vol] Chloride [Moles/vol ume] in Serum or Plasma High 98-107 [facility] Color Auto (U)Ordered By: Lamont Navas on 06-07-2024 Color (U) Color of Urine by [facility] Auto Di ffon 06-07-2024 Basophils (Bld) [#/Vol] 0.0 10*3/uL Normal 0.0-0.2 [facility] Comment on above: Result Comment: PERF ORMED BY: [place] [address] PATHOLOGIST [employer] SAL[employer]PERATIONS MANAGER SARAH ANDREWS M.D. Performed By: #### H EPATIC, CBC, BMP, LIPASE #### [address] Basophils/100 WBC (Bld) 0.1 % Normal . [facility] Comment on above: Performed By: #### H EPATIC, CBC, BMP, LIPASE #### [facility] [address] [place] [address] [place] Eosinophils (Bld) [#/Vol] 0.0 10*3/uL Normal 0.0-0.45 [facility] Comment on above: Performed By: #### H EPATIC, CBC, BMP, LIPASE #### [place] [address] [place] Eosinophils/100 WBC (Bld) 0.0 % Normal . [facility] Comment on above: Performed By: #### H EPATIC, CBC, BMP, LIPASE #### [address] Erythrocyte distribution width (RBC) [Ratio] 13.6 % Normal 11.9-15.3 [facility] Comment on above: Performed By: #### H EPATIC, CBC, BMP, LIPASE #### [address] Hematocrit (Bld) [Volume fraction] 33.6 % Low 34.0-46.4 [facility] Comment on above: Performed By: #### H EPATIC, CBC, BMP, LIPASE #### [address] Hemoglobin (Bld) [Mass/Vol] 11.4 g/dL Low 11.8-15.4 [facility] Comment on above: Performed By: #### H EPATIC, CBC, BMP, LIPASE #### [address] Lymphocytes (Bld) [#/Vol] 0.9 10*3/uL Low 1.00-4.8 [facility] Comment on above: Performed By: #### H EPATIC, CBC, BMP, LIPASE #### [address] Lymphocytes/100 WBC (Bld) 7.2 % Normal . [facility] Comment on above: Performed By: #### H EPATIC, CBC, BMP, LIPASE #### [address] MCH (RBC) [Entitic mass] 29.1 pg Normal 24.7-34.3 [facility] Comment on above: Performed By: #### H EPATIC, CBC, BMP, LIPASE #### [address] MCV (RBC) [Entitic vol] 85.7 fL Normal 80-100 [facility] Comment on above: Performed By: #### H EPATIC, CBC, BMP, LIPASE #### [address] Mean Corpuscular HGB Conc 34.0 g/dL Normal 32.0-35.0 [facility] Comment on above: Performed By: #### H EPATIC, CBC, BMP, LIPASE #### [address] Monocytes (Bld) [#/Vol] 0.3 10*3/uL Normal 0.0-0.8 [facility] Comment on above: Performed By: #### H EPATIC, CBC, BMP, LIPASE #### [address] Monocytes/100 WBC (Bld) 22.40 % High 0.00-20.00 [facility] Comment on above: Result Comment: For adults in ED, MDW > 20.0 may be associated with a higher risk of sepsis during the first 12 hrs of hospital admission Performed By: #### H EPATIC, CBC, BMP, LIPASE #### [address] Monocytes/100 WBC (Bld) 2.4 % Normal . [facility] Comment on above: Performed By: #### H EPATIC, CBC, BMP, LIPASE #### [address] Neutrophils (Bld) [#/Vol] 11.1 10*3/uL High 1.8-7.7 [facility] Comment on above: Performed By: #### H EPATIC, CBC, BMP, LIPASE #### [address] Neutrophils/100 WBC (Bld) 90.3 % Normal . [facility] Comment on above: Performed By: #### H EPATIC, CBC, BMP, LIPASE #### [address] NRBC% 0.1 /100{WBC} Normal 0-0.5 [facility] Comment on above: Performed By: #### H EPATIC, CBC, BMP, LIPASE #### [address] Platelet mean volume (Bld) [Entitic vol] 11.1 fL High 6.3-10.7 [facility] Comment on above: Performed By: #### H EPATIC, CBC, BMP, LIPASE #### [address] Platelets (Bld) [#/Vol] 190 10*3/uL Normal 150-450 [facility] Comment on above: Performed By: #### H EPATIC, CBC, BMP, LIPASE #### [address] RBC (Bld) [#/Vol] 3.92 10*6/uL Normal 3.60-5.00 [facility] Comment on above: Performed By: #### H EPATIC, CBC, BMP, LIPASE #### [address] WBC (Bld) [#/Vol] 12.3 10*3/uL High 3.8-11.6 [facility] Comment on above: Performed By: #### H EPATIC, CBC, BMP, LIPASE #### [address] Creatinine [Mass/volume] in Serum or PlasmaOrdered By: Mateo Navas on 06-07-2024 Creatinine [Mass/Vol] Creatinine [Mass/v olume] in Serum or Plasma Low 0.60-1.20 [facility] Drug Screen,Urineon 06-08-19 25 Amphetamine Screen,Urine Negative Normal Negative [facility] Comment on above: Performed By: #### H EPATIC, CBC, BMP, LIPASE #### [address] Barbiturate Screen,Urine Negative Normal Negative [facility] Comment on above: Performed By: #### H EPATIC, CBC, BMP, LIPASE #### [address] Benzodiazepines Screen,Urine Negative Normal Negative [facility] Comment on above: Performed By: #### H EPATIC, CBC, BMP, LIPASE #### [address] Cannabinoid Screen,Urine Positive High Negative [facility] Comment on above: Result Comment: Thes e are unconfirmed results and should not be used for legal purposes. Drug Cut-Off Concentration: AMPH 1000 ng/mL DENIS 200 ng/mL DIOR 200 ng/mL COCM 300 ng/mL OP 300 ng/mL PCP 25 ng/mL THC 20 ng/mL PERFORMED BY: [place] [address] PATHOLOGIST [employer]PERATIONS MANAGER SARAH ANDREWS M.D. Performed By: #### H EPATIC, CBC, BMP, LIPASE #### [address] Cocaine Screen,Urine Negative Normal Negative [facility] Comment on above: Performed By: #### H EPATIC, CBC, BMP, LIPASE #### [address] Opiate Screen,Urine Negative Normal Negative [facility] Comment on above: Performed By: #### H EPATIC, CBC, BMP, LIPASE #### [address] Phencyclidine Screen,Urine Negative Normal Negative [facility] Comment on above: Performed By: #### H EPATIC, CBC, BMP, LIPASE #### [address] Eosinophils Auto (Bld) [#/Vo l]Ordered By: Mateo Navas on 06-07-2024 Eosinophils (Bld) [#/Vol] Automated eosinophil count 0.0-0.45 [facility] Eosinophils/100 WBC Auto (Bl d)Ordered By: Mateo Navas on 06-07-2024 Eosinophils/100 WBC (Bld) Automated eosinophil % . [facility] Erythrocyte distribution wid th Auto (RBC) [Ratio]Ordered By: Mateo Navas on 06-07-2024 Erythrocyte distribution width (RBC) [Ratio] Erythrocyte distribution width [Ratio] by Automated count 11.9-15.3 [facility] Globulin Calc (S) [Mass/Vol] Ordered By: Mateo Navas on 03-19-2025 Globulin (S) [Mass/Vol] Serum globulin measurement by calculation (mass/volume) [facility] Glucose [Mass/volume] in Ser um or PlasmaOrdered By: Mateo Navas on 06-07-2024 Glucose [Mass/Vol] Glucose [Mass/volume ] in Serum or Plasma High 70-100 [facility] Comment on above: ADA recommended refe [...] by Test strip High Normal [facility] Hematocrit Auto (Bld) [Volum e fraction]Ordered By: Mateo Navas on 06-07-2024 Hematocrit (Bld) [Volume fraction] Hematocrit [Volume Fraction] of Blood by Automated count Low 34.0-46.4 [facility] Hemoglobin Test strip Ql (U) Ordered By: Mateo Navas on 06-07-2024 Hemoglobin Ql (U) Hemoglobin [Presence ] in Urine by Test strip Negative [facility] Hemoglobin [Mass/volume] in BloodOrdered By: Mateo Navas on 06-07-2024 Hemoglobin (Bld) [Mass/Vol] Hemoglobin [Mass/volume] in Blood Low 11.8-15.4 [facility] Hepatic Panelon 06-07-2024 Albumin [Mass/Vol] 3.9 g/dL Normal 3.5-5.7 [facility] Comment on above: Performed By: #### H EPATIC, CBC, BMP, LIPASE #### [facility] [address] [place] [address] [place] Albumin/Globulin [Mass ratio] 1.2 {ratio} Normal [facility] Comment on above: Performed By: #### H EPATIC, CBC, BMP, LIPASE #### [facility] [address] [place] [id number] [place] ALP [Catalytic activity/Vol] 44 U/L Normal 34-104 [facility] Comment on above: Performed By: #### H EPATIC, CBC, BMP, LIPASE #### [address] ALT [Catalytic activity/Vol] 7 U/L Normal 7-52 [facility] Comment on above: Performed By: #### H EPATIC, CBC, BMP, LIPASE #### [address] AST [Catalytic activity/Vol] 11 U/L Low 13-39 [facility] Comment on above: Performed By: #### H EPATIC, CBC, BMP, LIPASE #### [address] Bilirubin [Mass/Vol] 0.3 mg/dL Normal 0.3-1.0 [facility] Comment on above: Performed By: #### H EPATIC, CBC, BMP, LIPASE #### [address] Bilirubin,Indirect 0.3 mg/dL Normal [facility] Comment on above: Performed By: #### H EPATIC, CBC, BMP, LIPASE #### [address] Bilirubin.indirect [Mass/Vol] 0.00 mg/dL Low 0.03-0.18 [facility] Comment on above: Result Comment: If t he DBIL is less than 0.1, IBIL is not able to be calculated. Performed By: #### H EPATIC, CBC, BMP, LIPASE #### [address] Globulin (S) [Mass/Vol] 3.2 g/dL Normal [facility] Comment on above: Performed By: #### H EPATIC, CBC, BMP, LIPASE #### [address] Protein [Mass/Vol] 7.1 g/dL Normal 6.4-8.9 [facility] Comment on above: Performed By: #### H EPATIC, CBC, BMP, LIPASE #### [address] Ketones Test strip Ql (U)Ord ered By: Mateo Navas on 06-07-2024 Ketones Ql (U) Ketones [Presence] i n Urine by Test strip High Negative [facility] Leukocyte esterase [Presence ] in Urine by Test stripOrdered By: Mateo Navas on 06-07-2024 Leukocyte esterase Test strip Ql (U) Leukocyte esterase [Presence] in Urine by Test strip Negative [facility] Leukocytes [#/volume] correc rossy for nucleated erythrocytes in Blood by Automated counOrdered By: Mateo Navas on 06-07-2024 WBC corrected for nucl RBC Auto (Bld) [#/Vol] Leukocytes [#/volume] corrected for nucleated erythrocytes in Blood by Automated coun High 3.8-11.6 [facility] Lipaseon 06-07-2024 Lipase [Catalytic activity/Vol] 13.0 U/L Normal 11.0-82.0 [facility] Comment on above: Result Comment: PERF ORMED BY: [place] [address] PATHOLOGIST S[employer] SAL[employer] OPERATIONS MANAGER SARAH ANDREWS M.D. Performed By: #### H EPATIC, CBC, BMP, LIPASE #### [address] Lipase [Enzymatic activity/v olume] in Serum or PlasmaOrdered By: Mateo Navas on 06-07-2024 Lipase [Catalytic activity/Vol] Lipase [Enzymatic activity/volume] in Serum or Plasma 11.0-82.0 [facility] Lymphocytes Auto (Bld) [#/Vo l]Ordered By: Mateo Navas on 06-07-2024 Lymphocytes (Bld) [#/Vol] Lymphocytes [#/volume] in Blood by Automated count Low 1.00-4.8 [facility] Lymphocytes/100 WBC Auto (Bl d)Ordered By: Mateo Navas on 06-07-2024 Lymphocytes/100 WBC (Bld) Lymphocytes/100 leukocytes in Blood by Automated count . [facility] MCH Auto (RBC) [Entitic mass ]Ordered By: Mateo Navas on 06-07-2024 MCH (RBC) [Entitic mass] MCH [Entitic mass] by Automated count 24.7-34.3 [facility] MCHC Auto (RBC) [Mass/Vol]Or dered By: Mateo Navas on 06-07-2024 MCHC (RBC) [Mass/Vol] MCHC [Mass/volume] by Automated count 32.0-35.0 [facility] MCV Auto (RBC) [Entitic vol] Ordered By: Mateo Navas on 06-07-2024 MCV (RBC) [Entitic vol] MCV [Entitic volume] by Automated count 80-100 [facility] Monocyte distribution width [Entitic volume] in Blood by AutomatedOrdered By: Mateo Navas on 06-07-2024 Monocyte distribution width Auto (Bld) [Entitic vol] Monocyte distribution width [Entitic volume] in Blood by Automated High 0.00-20.00 [facility] Comment on above: For adults in ED, MD W > 20.0 may be associated with a higher risk of sepsis during the first 12 hrs of hospital admission Monocytes Auto (Bld) [#/Vol] Ordered By: Mateo Navas on 06-07-2024 Monocytes (Bld) [#/Vol] Automated blood monocyte count 0.0-0.8 [facility] Monocytes/100 WBC Auto (Bld) Ordered By: Mateo Navas on 06-07-2024 Monocytes/100 WBC (Bld) Automated monocyte % . [facility] Neutrophils Auto (Bld) [#/Vo l]Ordered By: Mateo Navas on 06-07-2024 Neutrophils (Bld) [#/Vol] Neutrophils [#/volume] in Blood by Automated count High 1.8-7.7 [facility] Neutrophils/100 WBC Auto (Bl d)Ordered By: Mateo Navas on 06-07-2024 Neutrophils/100 WBC (Bld) Automated neutrophil % . [facility] Nitrite Test strip Ql (U)Ord ered By: Mateo Navas on 06-07-2024 Nitrite Ql (U) Nitrite [Presence] i n Urine by Test strip Negative [facility] No Panel InformationOrdered By: Mateo Navas on 06-07-2024 Estimated GFR (CKD-EPI) > 60.0 mL/Min [facility] Creatinine Clearance (Chem 167.01 [facility] Nucleated erythrocytes [Pres ence] in Blood by Automated countOrdered By: Mateo Navas on 06-07-2024 Nucleated RBC Auto Ql (Bld) Nucleated erythrocytes [Presence] in Blood by Automated count 0-0.5 [facility] Opiates [Presence] in Urine by Screen methodOrdered By: Mateo Navas on 06-07-2024 Opiates Screen Ql (U) Opiates [Presence] in Urine by Screen method Negative [facility] Phencyclidine Screen Ql (U)O rdered By: Mateo Navas on 06-07-2024 Phencyclidine Ql (U) Phencyclidine [Pres ence] in Urine by Screen method Negative [facility] Platelet mean volume Auto (B ld) [Entitic vol]Ordered By: Mateo Navas on 06-07-2024 Platelet mean volume (Bld) [Entitic vol] Platelet mean volume [Entitic volume] in Blood by Automated count High 6.3-10.7 [facility] Platelets Auto (Bld) [#/Vol] Ordered By: Mateo Navas on 06-07-2024 Platelets (Bld) [#/Vol] Platelets [#/volume] in Blood by Automated count 150-450 [facility] Potassium [Moles/volume] in Serum or PlasmaOrdered By: Mateo Navas on 06-07-2024 Potassium [Moles/Vol] Potassium [Moles/v olume] in Serum or Plasma Low 3.5-5.1 [facility] Protein Test strip (U) [Mass /Vol]Ordered By: Mateo Navas on 06-07-2024 Protein (U) [Mass/Vol] Protein [Mass/volume] in Urine by Test strip Negative [facility] Protein [Mass/volume] in Ser um or PlasmaOrdered By: Mateo Navas on 06-07-2024 Protein [Mass/Vol] Protein [Mass/volume ] in Serum or Plasma 6.4-8.9 [facility] RBC Auto (Bld) [#/Vol]Ordere d By: Mateo Navas on 06-07-2024 RBC (Bld) [#/Vol] Erythrocytes [#/volu me] in Blood by Automated count 3.60-5.00 [facility] Serum or plasma albumin/glob ulin mass ratioOrdered By: Mateo Navas on 06-07-2024 Albumin/Globulin [Mass ratio] Serum or plasma albumin/globulin mass ratio [facility] Serum or plasma anion gap de terminationOrdered By: Mateo Navas on 06-07-2024 Anion gap [Moles/Vol] Serum or plasma an ion gap determination 6.0-15.0 [facility] Serum or plasma non-glucuron idated bilirubin measurement (mass/volume)Ordered By: Mateo Navas on 06-07-2024 Bilirubin.indirect [Mass/Vol] Serum or plasma non-glucuronidated bilirubin measurement (mass/volume) [facility] Sodium [Moles/volume] in Ser um or PlasmaOrdered By: Mateo Navas on 06-07-2024 Sodium [Moles/Vol] Sodium [Moles/volume ] in Serum or Plasma 136-145 [facility] Specific gravity Test strip (U) [Rel density]Ordered By: Mateo Navas on 06-07-2024 Specific gravity (U) [Rel density] Specific gravity of Urine by Test strip 1.001-1.03 0 [facility] Urea nitrogen [Mass/volume] in Serum or PlasmaOrdered By: Mateo Navas on 06-07-2024 Urea nitrogen [Mass/Vol] Urea nitrogen [Mass/volume] in Serum or Plasma Low 7-25 [facility] Urinalysison 06-07-2024 Appearance (U) Clear Normal Clear [facility] Comment on above: Order Comment: Name Collection Type:: Clean-Voided Midstream Performed By: #### H EPATIC, CBC, BMP, LIPASE #### [facility] [address] [place] [address] [place] Bilirubin,Urine Negative Normal Negative [facility] Comment on above: Order Comment: Name Collection Type:: Clean-Voided Midstream Performed By: #### H EPATIC, CBC, BMP, LIPASE #### [facility] [address] [place] [id number] [place] Color (U) Light-Yellow Normal Yellow [facility] Comment on above: Order Comment: Name Collection Type:: Clean-Voided Midstream Performed By: #### H EPATIC, CBC, BMP, LIPASE #### [address] Glucose Ql (U) 200 mg/dL High Normal [facility] Comment on above: Order Comment: Name Collection Type:: Clean-Voided Midstream Performed By: #### H EPATIC, CBC, BMP, LIPASE #### [address] Ketones Ql (U) 4+ High Negative [facility] Comment on above: Order Comment: Name Collection Type:: Clean-Voided Midstream Performed By: #### H EPATIC, CBC, BMP, LIPASE #### [address] Leukocyte esterase Test strip Ql (U) Negative Normal Negative [facility] Comment on above: Order Comment: Name Collection Type:: Clean-Voided Midstream Performed By: #### H EPATIC, CBC, BMP, LIPASE #### [address] Nitrite,Urine Negative Normal Negative [facility] Comment on above: Order Comment: Name Collection Type:: Clean-Voided Midstream Performed By: #### H EPATIC, CBC, BMP, LIPASE #### [address] Occult Blood,Urine Negative Normal Negative [facility] Comment on above: Order Comment: Name Collection Type:: Clean-Voided Midstream Result Comment: PERF ORMED BY: [place] [address] PATHOLOGIST SENIOR SALES OPERATIONS MANAGER SARAH ANDREWS M.D. Performed By: #### H EPATIC, CBC, BMP, LIPASE #### [address] pH (U) 8.0 [pH] Normal 5.0-9.0 [facility] Comment on above: Order Comment: Name Collection Type:: Clean-Voided Midstream Performed By: #### H EPATIC, CBC, BMP, LIPASE #### [address] Protein,Urine Negative Normal Negative [facility] Comment on above: Order Comment: Name Collection Type:: Clean-Voided Midstream Performed By: #### H EPATIC, CBC, BMP, LIPASE #### [facility] [address] Specificy [place],Urine 1.020 Normal 1.001-1.03 0 [facility] Comment on above: Order Comment: Name Collection Type:: Clean-Voided Midstream Performed By: #### H EPATIC, CBC, BMP, LIPASE #### [facility] [address] Urobilinogen,Urine Normal Normal Normal [facility] Comment on above: Order Comment: Name Collection Type:: Clean-Voided Midstream Performed By: #### H EPATIC, CBC, BMP, LIPASE #### [facility] [address] [place] [address] Urobilinogen Test strip (U) [Mass/Vol]Ordered By: Mateo Navas on 06-07-2024 Urobilinogen (U) [Mass/Vol] Urobilinogen [Mass/volume] in Urine by Test strip Normal [facility] WBC Auto (Bld) [#/Vol]Ordere d By: Mateo Navas on 06-07-2024 WBC (Bld) [#/Vol] Leukocytes [#/volume ] in Blood by Automated count High 3.8-11.6 [facility] pH Test strip (U)Ordered By: Mateo Navas on 06-07-2024 pH (U) pH of Urine by Test strip 5.0-9.0 [facility] IGP,APTIMA HPV,AGE GDLNon AGE GDLN ACOG TESTING Note . [facility] Comment on above: TESTS RESULT FLAG UN ITS REF RANGE LAB Clinician Provided Cytology Information Source.............Cervix No. of containers..01 ThinPrep Vial Age Izabela BYNUM Katharina... 28 01 FLAG LEGEND: L-Low Normal,H-High Normal,LL-Alert Low,HH-Alert High <-Panic Low,>-Panic High,A-Abnormal,AA-Critical Abnormal Performed at: 01 =[address] [id number] Naina Arthur MD, HPV APTIMA Negative Negative [facility] Comment on above: This nucleic acid am plification test detects fourteen high- risk HPV types (16,18,31,33,35,39,45,51,52,56,58,59,66,68) without differentiation. Performed at: =[address] [id number] Sales Trainer: Naina Arthur MD, Phone: [phone] Performed at: [address] [id number] Sales Trainer: Naina Arthur MD, Phone: [phone] IGP, APTIMA HPV, RFX 16/18,45 Note . [facility] Comment on above: TESTS RESULT FLAG UN ITS REF RANGE LAB DIAGNOSIS: 02 NEGATIVE FOR INTRAEPITHELIAL LESION OR MALIGNANCY. THIS SPECIMEN WAS RESCREENED PART OF OUR HOSPICE CARE SALES CONSULTANT PROGRAM. Specimen adequacy: 02 Satisfactory for evaluation. No endocervical component is identified. Performed by: 02 Yakelin Ramey, Food Counselor (ASCP) QC reviewed by: 02 Nash Guerra Food Counselor (ASCP) . 02 Note: Note 02 The [...] <-Panic Low,>-Panic High,A-Abnormal,AA-Critical Abnormal Performed at: [address] [phone] Naina Arthur MD, SPATULA-ALONE CERVIX [facility] US OB 14+ WEEKS ANATOMY SCAN on [...] II, MD, PHD at 13-Jun-2024 09:57:02 AM [facility] Normal Not Available Comment on above: Order Comment: US OB ANATOMY SINGLE W US OB CERVICAL LENGTH Estimated Date of Delivery: 10/27/24 Gestational Age as of 05/25/2024: 17w6d Urinalysis macro (dipstick) panel (U)on 05-25-2024 Bilirubin, UA Negative Negative - 4(70) +++ mg/dL [facility] Blood, UA Negative Negative - 50 Josiah/mcL [facility] Clarity, UA Clear [facility] Color, UA Yellow [facility] Glucose, UA Negative Negative - 2000(110) ++++ mg/dL [facility] Interpretation and review of laboratory results Abnormal [facility] Ketones, UA Negative Negative - 160(16) ++++ mg/dL [facility] Leukocytes, UA Negative Negative - 500+++ Archana/mcL [facility] Nitrite, UA Negative Negative - Positive [facility] pH, UA 7 5 - 9 [facility] Protein, UA Trace Negative - 2000(20) ++++ mg/dL [facility] Spec Grav, UA 1.025 1 - 1.03 [facility] Urobilinogen, UA 0.2 0.2 - 12 mg/dL Count includes the [facility] Alanine aminotransferase [En zymatic activity/volume] in Serum or PlasmaOrdered By: Glenn Abdullahi on 05-19-2024 ALT [Catalytic activity/Vol] Alanine aminotransferase [Enzymatic activity/volume] in Serum or Plasma 7-52 [facility] Albumin [Mass/volume] in Ser um or Plasma by Bromocresol green (BCG) dye binding methoOrdered By: Glenn Abdullahi on 05-19-2024 Albumin BCG dye [Mass/Vol] Albumin [Mass/volume] in Serum or Plasma by Bromocresol green (BCG) dye binding metho 3.5-5.7 [facility] Alkaline phosphatase [Enzyma tic activity/volume] in Serum or PlasmaOrdered By: Glenn Abdullahi on 05-19-2024 ALP [Catalytic activity/Vol] Alkaline phosphatase [Enzymatic activity/volume] in Serum or Plasma 34-104 [facility] Amphetamine Screen Ql (U)Ord ered By: Glenn Abdullahi on 05-19-2024 Amphetamines Ql (U) Amphetamines screen Negativ e [facility] Appearance of UrineOrdered B y: Glenn Abdullahi on 05-19-2024 Appearance (U) Urine appearance Abnormal Clear [facility] Aspartate aminotransferase [ Enzymatic activity/volume] in Serum or PlasmaOrdered By: Glenn Abdullahi on 05-19-2024 AST [Catalytic activity/Vol] Aspartate aminotransferase [Enzymatic activity/volume] in Serum or Plasma Low 13-39 [facility] Bacteria [Presence] in Urine by AutomatedOrdered By: Glenn Abdullahi on 05-19-2024 Bacteria Auto Ql (U) Bacteria [Presence] in Urine by Automated None Seen [facility] Barbiturates [Presence] in U rine by Screen methodOrdered By: Glenn Abdullahi on 05-19-2024 Barbiturates Screen Ql (U) Barbiturates [Presence] in Urine by Screen method Negative [facility] Basophils Auto (Bld) [#/Vol] Ordered By: Glenn Abdullahi on 05-19-2024 Basophils (Bld) [#/Vol] Automated basophil count 0.0-0.2 [facility] Basophils/100 WBC Auto (Bld) Ordered By: Glenn Abdullahi on 05-19-2024 Basophils/100 WBC (Bld) Automated basophil % . [facility] Benzodiazepines Screen Ql (U )Ordered By: Glenn Abdullahi on 05-19-2024 Benzodiazepines Ql (U) Benzodiazepines [Presence] in Urine by Screen method Negative [facility] Benzoylecgonine [Presence] i n Urine by Screen methodOrdered By: Glenn Abdullahi on 05-19-2024 Benzoylecgonine Screen Ql (U) Benzoylecgonine [Presence] in Urine by Screen method Negative [facility] Bilirubin Test strip Ql (U)O rdered By: Glenn Abdullahi on 05-19-2024 Bilirubin Ql (U) Bilirubin.total [Pre sence] in Urine by Test strip Negative [facility] Bilirubin.direct [Mass/volum e] in Serum or PlasmaOrdered By: Glenn Abdullahi on 05-19-2024 Bilirubin.direct [Mass/Vol] Bilirubin.direct [Mass/volume] in Serum or Plasma Low 0.03-0.18 [facility] Comment on above: If the DBIL is less than 0.1, IBIL is not able to becalculated. Bilirubin.total [Mass/volume ] in Serum or PlasmaOrdered By: Glenn Abdullahi on 05-19-2024 Bilirubin [Mass/Vol] Bilirubin.total [Mass/volume] in Serum or Plasma 0.3-1.0 [facility] Calcium [Mass/volume] in Ser um or PlasmaOrdered By: Glenn Abdullahi on 05-19-2024 Calcium [Mass/Vol] Calcium [Mass/volume ] in Serum or Plasma 8.6-10.3 [facility] Cannabinoids [Presence] in U rine by Screen methodOrdered By: Glenn Abdullahi on 05-19-2024 Cannabinoids Screen Ql (U) Cannabinoids [Presence] in Urine by Screen method High Negative [facility] Comment on above: These are unconfirme [...] Serum or Plasma Low 21.0-31.0 [facility] Chloride [Moles/volume] in S mayte or PlasmaOrdered By: Glenn Abdullahi on 05-19-2024 Chloride [Moles/Vol] Chloride [Moles/vol ume] in Serum or Plasma 98-107 [facility] Choriogonadotropin.beta subu nit [Units/volume] in Serum or PlasmaOrdered By: Glenn Abdullahi on 05-19-2024 HCG.beta subunit Qn Choriogonadotropin.b eta subunit [Units/volume] in Serum or Plasma [facility] Comment on above: Approximate Approxim ate hCG Gestational Age Range (mIU/ml) (weeks)0.2-1 5-50 1-2 50-500 2-3 100-5,000 3-4 500-10,000 4-5 1,000-50,000 5-6 10,000-100,000 6-8 15,000-200,000 8-12 10,000-100,000 Color Auto (U)Ordered By: Toro Abdullahi on 05-19-2024 Color (U) Color of Urine by Auto Abnormal Yellow Fi [facility] Complete Blood Count Auto Di ffon 05-19-2024 Basophils (Bld) [#/Vol] 0.1 10*3/uL Normal 0.0-0.2 [facility] Comment on above: Result Comment: PERF ORMED BY: [place] [address] PATHOLOGIST SENIOR SALES OPERATIONS MANAGER SARAH ANDREWS M.D. Performed By: #### H EPATIC, CBC, BMP, LIPASE #### [address] Basophils/100 WBC (Bld) 1.4 % Normal . [facility] Comment on above: Performed By: #### H EPATIC, CBC, BMP, LIPASE #### [address] Eosinophils (Bld) [#/Vol] 0.0 10*3/uL Normal 0.0-0.45 [facility] Comment on above: Performed By: #### H EPATIC, CBC, BMP, LIPASE #### [address] Eosinophils/100 WBC (Bld) 0.3 % Normal . [facility] Comment on above: Performed By: #### H EPATIC, CBC, BMP, LIPASE #### [address] Erythrocyte distribution width (RBC) [Ratio] 13.7 % Normal 11.9-15.3 [facility] Comment on above: Performed By: #### H EPATIC, CBC, BMP, LIPASE #### [address] Hematocrit (Bld) [Volume fraction] 33.1 % Low 34.0-46.4 [facility] Comment on above: Performed By: #### H EPATIC, CBC, BMP, LIPASE #### [address] Hemoglobin (Bld) [Mass/Vol] 11.6 g/dL Low 11.8-15.4 [facility] Comment on above: Performed By: #### H EPATIC, CBC, BMP, LIPASE #### [address] Lymphocytes (Bld) [#/Vol] 1.3 10*3/uL Normal 1.00-4.8 [facility] Comment on above: Performed By: #### H EPATIC, CBC, BMP, LIPASE #### [address] Lymphocytes/100 WBC (Bld) 14.1 % Normal . [facility] Comment on above: Performed By: #### H EPATIC, CBC, BMP, LIPASE #### [address] MCH (RBC) [Entitic mass] 30.0 pg Normal 24.7-34.3 [facility] Comment on above: Performed By: #### H EPATIC, CBC, BMP, LIPASE #### [address] MCV (RBC) [Entitic vol] 85.6 fL Normal 80-100 [facility] Comment on above: Performed By: #### H EPATIC, CBC, BMP, LIPASE #### [address] Mean Corpuscular HGB Conc 35.0 g/dL Normal 32.0-35.0 [facility] Comment on above: Performed By: #### H EPATIC, CBC, BMP, LIPASE #### [address] Monocytes (Bld) [#/Vol] 0.4 10*3/uL Normal 0.0-0.8 [facility] Comment on above: Performed By: #### H EPATIC, CBC, BMP, LIPASE #### [address] Monocytes/100 WBC (Bld) 15.92 % Normal 0.00-20.00 [facility] Comment on above: Performed By: #### H EPATIC, CBC, BMP, LIPASE #### [address] Monocytes/100 WBC (Bld) 4.2 % Normal . [facility] Comment on above: Performed By: #### H EPATIC, CBC, BMP, LIPASE #### [address] Neutrophils (Bld) [#/Vol] 7.1 10*3/uL Normal 1.8-7.7 [facility] Comment on above: Performed By: #### H EPATIC, CBC, BMP, LIPASE #### [address] Neutrophils/100 WBC (Bld) 80.0 % Normal . [facility] Comment on above: Performed By: #### H EPATIC, CBC, BMP, LIPASE #### [address] NRBC% 0.1 /100{WBC} Normal 0-0.5 [facility] Comment on above: Performed By: #### H EPATIC, CBC, BMP, LIPASE #### [address] Platelet mean volume (Bld) [Entitic vol] 11.0 fL High 6.3-10.7 [facility] Comment on above: Performed By: #### H EPATIC, CBC, BMP, LIPASE #### [address] Platelets (Bld) [#/Vol] 161 10*3/uL Normal 150-450 [facility] Comment on above: Performed By: #### H EPATIC, CBC, BMP, LIPASE #### [address] RBC (Bld) [#/Vol] 3.87 10*6/uL Normal 3.60-5.00 [facility] Comment on above: Performed By: #### H EPATIC, CBC, BMP, LIPASE #### [address] WBC (Bld) [#/Vol] 8.9 10*3/uL Normal 3.8-11.6 [facility] Comment on above: Performed By: #### H EPATIC, CBC, BMP, LIPASE #### [address] Comprehensive Metabolic Pane blanquita 05-19-2024 Albumin [Mass/Vol] 3.8 g/dL Normal 3.5-5.7 [facility] Comment on above: Performed By: #### H EPATIC, CBC, BMP, LIPASE #### [address] Albumin/Globulin [Mass ratio] 1.3 {ratio} Normal [facility] Comment on above: Performed By: #### H EPATIC, CBC, BMP, LIPASE #### [address] ALP [Catalytic activity/Vol] 38 U/L Normal 34-104 [facility] Comment on above: Performed By: #### H EPATIC, CBC, BMP, LIPASE #### [address] ALT [Catalytic activity/Vol] 8 U/L Normal 7-52 [facility] Comment on above: Performed By: #### H EPATIC, CBC, BMP, LIPASE #### [address] Anion gap [Moles/Vol] 13.4 mmol/L Normal 6.0-15.0 [facility] Comment on above: Performed By: #### H EPATIC, CBC, BMP, LIPASE #### [address] AST [Catalytic activity/Vol] 10 U/L Low 13-39 [facility] Comment on above: Performed By: #### H EPATIC, CBC, BMP, LIPASE #### [address] Bilirubin [Mass/Vol] 0.3 mg/dL Normal 0.3-1.0 [facility] Comment on above: Performed By: #### H EPATIC, CBC, BMP, LIPASE #### [address] Calcium [Mass/Vol] 9.3 mg/dL Normal 8.6-10.3 [facility] Comment on above: Performed By: #### H EPATIC, CBC, BMP, LIPASE #### [place] [address] [place] Chloride [Moles/Vol] 107 mmol/L Normal 98-107 [facility] Comment on above: Performed By: #### H EPATIC, CBC, BMP, LIPASE #### [address] CO2 [Moles/Vol] 18.9 mmol/L Low 21.0-31.0 [facility] Comment on above: Performed By: #### H EPATIC, CBC, BMP, LIPASE #### [facility] [address] Creatinine [Mass/Vol] 0.53 mg/dL Low 0.60-1.20 [facility] Comment on above: Performed By: #### H EPATIC, CBC, BMP, LIPASE #### [facility] [address] Creatinine Clr Calc Pharmacy 143.53 Normal [facility] Comment on above: Performed By: #### H EPATIC, CBC, BMP, LIPASE #### [facility] [address] GFR/1.73 sq M.predicted MDRD (S/P/Bld) [Vol rate/Area] mL/min/{1.73_m2} Normal [facility] Comment on above: Performed By: #### H EPATIC, CBC, BMP, LIPASE #### [facility] [address] Globulin (S) [Mass/Vol] 2.9 g/dL Normal [facility] Comment on above: Performed By: #### H EPATIC, CBC, BMP, LIPASE #### [facility] [address] Glucose [Mass/Vol] 135 mg/dL High 70-100 [facility] Comment on above: Result Comment: [facility] Glucose Reference Range is dependent on time and content of last meal. Glucose of more than 200 mg/dL in a nonstressed, ambulatory subject supports the diagnosis of Diabetes Mellitus. ADA recommended reference range Performed By: #### H EPATIC, CBC, BMP, LIPASE #### [facility] [address] Potassium [Moles/Vol] 3.3 mmol/L Low 3.5-5.1 [facility] Comment on above: Performed By: #### H EPATIC, CBC, BMP, LIPASE #### [facility] [address] Protein [Mass/Vol] 6.7 g/dL Normal 6.4-8.9 [facility] Comment on above: Performed By: #### H EPATIC, CBC, BMP, LIPASE #### [address] Sodium [Moles/Vol] 136 mmol/L Normal 136-145 [facility] Comment on above: Performed By: #### H EPATIC, CBC, BMP, LIPASE #### [address] Urea nitrogen [Mass/Vol] 8 mg/dL Normal 7-25 [facility] Comment on above: Performed By: #### H EPATIC, CBC, BMP, LIPASE #### [place] [address] [place] Creatinine [Mass/volume] in Serum or PlasmaOrdered By: Glenn Abdullahi on 05-19-2024 Creatinine [Mass/Vol] Creatinine [Mass/v olume] in Serum or Plasma Low 0.60-1.20 [facility] Dipstick and Microscopicon 0 05-19-2024 Appearance (U) Turbid Critically abnormal Clear [facility] Comment on above: Order Comment: Name Collection Type:: Clean-Voided Midstream Performed By: #### H EPATIC, CBC, BMP, LIPASE #### [address] Bacteria,Urine None Seen Normal None Seen [facility] Comment on above: Order Comment: Name Collection Type:: Clean-Voided Midstream Performed By: #### H EPATIC, CBC, BMP, LIPASE #### [place] [address] [place] Bilirubin,Urine Negative Normal Negative [facility] Comment on above: Order Comment: Name Collection Type:: Clean-Voided Midstream Performed By: #### H EPATIC, CBC, BMP, LIPASE #### [place] [address] [place] Color (U) Light-Gosper Critically abnormal Yellow [facility] Comment on above: Order Comment: Name Collection Type:: Clean-Voided Midstream Performed By: #### H EPATIC, CBC, BMP, LIPASE #### [facility] [address] Glucose Ql (U) Normal Normal Normal [facility] Comment on above: Order Comment: Name Collection Type:: Clean-Voided Midstream Performed By: #### H EPATIC, CBC, BMP, LIPASE #### [facility] [address] Hyaline Casts,Urine None Normal 0-8 [facility] Comment on above: Order Comment: Name Collection Type:: Clean-Voided Midstream Performed By: #### H EPATIC, CBC, BMP, LIPASE #### [address] Ketones Ql (U) 2+ High Negative [facility] Comment on above: Order Comment: Name Collection Type:: Clean-Voided Midstream Performed By: #### H EPATIC, CBC, BMP, LIPASE #### [address] Leukocyte esterase Test strip Ql (U) Negative Normal Negative [facility] Comment on above: Order Comment: Name Collection Type:: Clean-Voided Midstream Performed By: #### H EPATIC, CBC, BMP, LIPASE #### [address] Mucus,Urine Rare Normal [facility] Comment on above: Order Comment: Name Collection Type:: Clean-Voided Midstream Result Comment: PERF ORMED BY: [place] [address] PATHOLOGIST SENIOR SALES OPERATIONS MANAGER SARAH ANDREWS M.D. Performed By: #### H EPATIC, CBC, BMP, LIPASE #### [address] Nitrite,Urine Negative Normal Negative [facility] Comment on above: Order Comment: Name Collection Type:: Clean-Voided Midstream Performed By: #### H EPATIC, CBC, BMP, LIPASE #### [address] Occult Blood,Urine Negative Normal Negative [facility] Comment on above: Order Comment: Name Collection Type:: Clean-Voided Midstream Result Comment: PERF ORMED BY: [place] [address] PATHOLOGIST SENIOR SALES OPERATIONS MANAGER SARAH ANDREWS M.D. Performed By: #### H EPATIC, CBC, BMP, LIPASE #### [address] pH (U) 8.0 [pH] Normal 5.0-9.0 [facility] Comment on above: Order Comment: Name Collection Type:: Clean-Voided Midstream Performed By: #### H EPATIC, CBC, BMP, LIPASE #### [address] Protein,Urine Negative Normal Negative [facility] Comment on above: Order Comment: Name Collection Type:: Clean-Voided Midstream Performed By: #### H EPATIC, CBC, BMP, LIPASE #### [address] RBC,Urine 3-4 Normal 0-4 [facility] Comment on above: Order Comment: Name Collection Type:: Clean-Voided Midstream Performed By: #### H EPATIC, CBC, BMP, LIPASE #### [address] Specificy [place],Urine 1.014 Normal 1.001-1.03 0 [facility] Comment on above: Order Comment: Name Collection Type:: Clean-Voided Midstream Performed By: #### H EPATIC, CBC, BMP, LIPASE #### [address] Squamous Epithelial Cell,Urine 1-2 Normal 0-2 [facility] Comment on above: Order Comment: Name Collection Type:: Clean-Voided Midstream Performed By: #### H EPATIC, CBC, BMP, LIPASE #### [address] Urobilinogen,Urine Normal Normal Normal [facility] Comment on above: Order Comment: Name Collection Type:: Clean-Voided Midstream Performed By: #### H EPATIC, CBC, BMP, LIPASE #### [address] WBC,Urine None Seen Normal 0-4 [facility] Comment on above: Order Comment: Name Collection Type:: Clean-Voided Midstream Performed By: #### H EPATIC, CBC, BMP, LIPASE #### [address] Drug Screen,Urineon 05-19-19 25 Amphetamine Screen,Urine Negative Normal Negative [facility] Comment on above: Performed By: #### H EPATIC, CBC, BMP, LIPASE #### [address] Barbiturate Screen,Urine Negative Normal Negative [facility] Comment on above: Performed By: #### H EPATIC, CBC, BMP, LIPASE #### [address] Benzodiazepines Screen,Urine Negative Normal Negative [facility] Comment on above: Performed By: #### H EPATIC, CBC, BMP, LIPASE #### [address] Cannabinoid Screen,Urine Positive High Negative [facility] Comment on above: Result Comment: Thes e are unconfirmed results and should not be used for legal purposes. Drug Cut-Off Concentration: AMPH 1000 ng/mL DENIS 200 ng/mL DIOR 200 ng/mL COCM 300 ng/mL OP 300 ng/mL PCP 25 ng/mL THC 20 ng/mL PERFORMED BY: [place] [address] PATHOLOGIST SENIOR SALES OPERATIONS MANAGER SARAH ANDREWS M.D. Performed By: #### H EPATIC, CBC, BMP, LIPASE #### [address] Cocaine Screen,Urine Negative Normal Negative [facility] Comment on above: Performed By: #### H EPATIC, CBC, BMP, LIPASE #### [address] Opiate Screen,Urine Negative Normal Negative [facility] Comment on above: Performed By: #### H EPATIC, CBC, BMP, LIPASE #### [facility] [address] Phencyclidine Screen,Urine Negative Normal Negative [facility] Comment on above: Performed By: #### H EPATIC, CBC, BMP, LIPASE #### [facility] [address] [place] [address] [place] Eosinophils Auto (Bld) [#/Vo l]Ordered By: Glenn Abdullahi on 05-19-2024 Eosinophils (Bld) [#/Vol] Automated eosinophil count 0.0-0.45 [facility] Eosinophils/100 WBC Auto (Bl d)Ordered By: Glenn Abdullahi on 05-19-2024 Eosinophils/100 WBC (Bld) Automated eosinophil % . [facility] Epithelial cells.squamous [# /area] in Urine sediment by Automated countOrdered By: Glenn Abdullahi on 05-19-2024 Epithelial cells.squamous Auto (Urine sed) [#/Area] Epithelial cells.squamous [#/area] in Urine sediment by Automated count 0-2 [facility] Erythrocyte distribution wid th Auto (RBC) [Ratio]Ordered By: Glenn Abdullahi on 05-19-2024 Erythrocyte distribution width (RBC) [Ratio] Erythrocyte distribution width [Ratio] by Automated count 11.9-15.3 [facility] Erythrocytes [#/area] in Uri ne sediment by Automated countOrdered By: Glenn Abdullahi on 05-19-2024 RBC Auto (Urine sed) [#/Area] Erythrocytes [#/area] in Urine sediment by Automated count 0-4 [facility] Globulin Calc (S) [Mass/Vol] Ordered By: Glenn Abdullahi on 05-19-2024 Globulin (S) [Mass/Vol] Serum globulin measurement by calculation (mass/volume) [facility] Glucose [Mass/volume] in Ser um or PlasmaOrdered By: Glenn Abdullahi on 05-19-2024 Glucose [Mass/Vol] Glucose [Mass/volume ] in Serum or Plasma High 70-100 [facility] Comment on above: ADA recommended refe [...] Urine by Test strip Normal [facility] HCG,Quantitativeon HCG,Quantitative 34465.00 m[iU]/mL Normal T he [facility] Comment on above: Result Comment: Appr oximate Approximate hCG Gestational Age Range (mIU/ml) (weeks) 0.2-1 5-50 1-2 50-500 2-3 100-5,000 3-4 500-10,000 4-5 1,000-50,000 5-6 10,000-100,000 6-8 15,000-200,000 8-12 10,000-100,000 PERFORMED BY: [place] [address] PATHOLOGIST SENIOR SALES OPERATIONS MANAGER SARAH ANDREWS M.D. Performed By: #### H EPATIC, CBC, BMP, LIPASE #### [facility] [address] [place] [address] Hematocrit Auto (Bld) [Volum e fraction]Ordered By: Glenn Abdullahi on 05-19-2024 Hematocrit (Bld) [Volume fraction] Hematocrit [Volume Fraction] of Blood by Automated count Low 34.0-46.4 [facility] Hemoglobin Test strip Ql (U) Ordered By: Glenn Abdullahi on 05-19-2024 Hemoglobin Ql (U) Hemoglobin [Presence ] in Urine by Test strip Negative [facility] Hemoglobin [Mass/volume] in BloodOrdered By: Glenn Abdullahi on 05-19-2024 Hemoglobin (Bld) [Mass/Vol] Hemoglobin [Mass/volume] in Blood Low 11.8-15.4 [facility] Hepatic Panelon 05-19-2024 Bilirubin,Indirect 0.3 mg/dL Normal [facility] Comment on above: Performed By: #### H EPATIC, CBC, BMP, LIPASE #### [facility] [address] [place] [address] Bilirubin.indirect [Mass/Vol] 0.00 mg/dL Low 0.03-0.18 [facility] Comment on above: Result Comment: If t he DBIL is less than 0.1, IBIL is not able to be calculated. Performed By: #### H EPATIC, CBC, BMP, LIPASE #### [facility] [address] [place] [address] Hyaline casts [#/area] in Ur ine sediment by Automated countOrdered By: Glenn Abdullahi on 05-19-2024 Hyaline casts Auto (Urine sed) [#/Area] Hyaline casts [#/area] in Urine sediment by Automated count 0-8 [facility] Ketones Test strip Ql (U)Ord ered By: Glenn Abdullahi on 05-19-2024 Ketones Ql (U) Ketones [Presence] i n Urine by Test strip High Negative [facility] Leukocyte esterase [Presence ] in Urine by Test stripOrdered By: Glenn Abdullahi on 05-19-2024 Leukocyte esterase Test strip Ql (U) Leukocyte esterase [Presence] in Urine by Test strip Negative [facility] Leukocytes [#/area] in Urine sediment by Automated countOrdered By: Glenn Abdullahi on 05-19-2024 WBC Auto (Urine sed) [#/Area] Leukocytes [#/area] in Urine sediment by Automated count 0-4 [facility] Leukocytes [#/volume] correc rossy for nucleated erythrocytes in Blood by Automated counOrdered By: Glenn Abdullahi on 05-19-2024 WBC corrected for nucl RBC Auto (Bld) [#/Vol] Leukocytes [#/volume] corrected for nucleated erythrocytes in Blood by Automated coun 3.8-11.6 [facility] Lipaseon 05-19-2024 Lipase [Catalytic activity/Vol] 20.0 U/L Normal 11.0-82.0 [facility] Comment on above: Performed By: #### H EPATIC, CBC, BMP, LIPASE #### [address] Lipase [Enzymatic activity/v olume] in Serum or PlasmaOrdered By: Glenn Abdullahi on 05-19-2024 Lipase [Catalytic activity/Vol] Lipase [Enzymatic activity/volume] in Serum or Plasma 11.0-82.0 [facility] Lymphocytes Auto (Bld) [#/Vo l]Ordered By: Glenn Abdullahi on 05-19-2024 Lymphocytes (Bld) [#/Vol] Lymphocytes [#/volume] in Blood by Automated count 1.00-4.8 [facility] Lymphocytes/100 WBC Auto (Bl d)Ordered By: Glenn Abdullahi on 05-19-2024 Lymphocytes/100 WBC (Bld) Lymphocytes/100 leukocytes in Blood by Automated count . [facility] MCH Auto (RBC) [Entitic mass ]Ordered By: Glenn Abdullahi on 05-19-2024 MCH (RBC) [Entitic mass] MCH [Entitic mass] by Automated count 24.7-34.3 [facility] MCHC Auto (RBC) [Mass/Vol]Or dered By: Glenn Abdullahi on 05-19-2024 MCHC (RBC) [Mass/Vol] MCHC [Mass/volume] by Automated count 32.0-35.0 [facility] MCV Auto (RBC) [Entitic vol] Ordered By: Glenn Abdullahi on 05-19-2024 MCV (RBC) [Entitic vol] MCV [Entitic volume] by Automated count 80-100 [facility] Magnesiumon 05-19-2024 Magnesium [Mass/Vol] 1.4 mg/dL Low 1.9-2.7 [facility] Comment on above: Performed By: #### H EPATIC, CBC, BMP, LIPASE #### [address] Magnesium [Mass/volume] in S mayte or PlasmaOrdered By: Glenn Abdullahi on 05-19-2024 Magnesium [Mass/Vol] Magnesium [Mass/vol ume] in Serum or Plasma Low 1.9-2.7 [facility] Monocyte distribution width [Entitic volume] in Blood by AutomatedOrdered By: Glenn Abdullahi on 05-19-2024 Monocyte distribution width Auto (Bld) [Entitic vol] Monocyte distribution width [Entitic volume] in Blood by Automated 0.00-20.00 [facility] Monocytes Auto (Bld) [#/Vol] Ordered By: Glenn Abdullahi on 05-19-2024 Monocytes (Bld) [#/Vol] Automated blood monocyte count 0.0-0.8 [facility] Monocytes/100 WBC Auto (Bld) Ordered By: Glenn Abdullahi on 05-19-2024 Monocytes/100 WBC (Bld) Automated monocyte % . [facility] Mucus [Presence] in Urine by AutomatedOrdered By: Glenn Abdullahi on 05-19-2024 Mucus Auto Ql (U) Mucus [Presence] in Urine by Automated [facility] Neutrophils Auto (Bld) [#/Vo l]Ordered By: Glenn Abdullahi on 05-19-2024 Neutrophils (Bld) [#/Vol] Neutrophils [#/volume] in Blood by Automated count 1.8-7.7 [facility] Neutrophils/100 WBC Auto (Bl d)Ordered By: Glenn Abdullahi on 05-19-2024 Neutrophils/100 WBC (Bld) Automated neutrophil % . [facility] Nitrite Test strip Ql (U)Ord ered By: Glenn Abdullahi on 05-19-2024 Nitrite Ql (U) Nitrite [Presence] i n Urine by Test strip Negative [facility] No Panel InformationOrdered By: Glenn Abdullahi on 05-19-2024 Estimated GFR (CKD-EPI) > 60.0 mL/Min [facility] Creatinine Clearance (Chem 143.53 [facility] Nucleated erythrocytes [Pres ence] in Blood by Automated countOrdered By: Glenn Abdullahi on 05-19-2024 Nucleated RBC Auto Ql (Bld) Nucleated erythrocytes [Presence] in Blood by Automated count 0-0.5 [facility] Opiates [Presence] in Urine by Screen methodOrdered By: Glenn Abdullahi on 05-19-2024 Opiates Screen Ql (U) Opiates [Presence] in Urine by Screen method Negative [facility] Phencyclidine Screen Ql (U)O rdered By: Glenn Abdullahi on 05-19-2024 Phencyclidine Ql (U) Phencyclidine [Pres ence] in Urine by Screen method Negative [facility] Platelet mean volume Auto (B ld) [Entitic vol]Ordered By: Glenn Abdullahi on 05-19-2024 Platelet mean volume (Bld) [Entitic vol] Platelet mean volume [Entitic volume] in Blood by Automated count High 6.3-10.7 [facility] Platelets Auto (Bld) [#/Vol] Ordered By: Glenn Abdullahi on 05-19-2024 Platelets (Bld) [#/Vol] Platelets [#/volume] in Blood by Automated count 150-450 [facility] Potassium [Moles/volume] in Serum or PlasmaOrdered By: Glenn Abdullahi on 05-19-2024 Potassium [Moles/Vol] Potassium [Moles/v olume] in Serum or Plasma Low 3.5-5.1 [facility] Protein Test strip (U) [Mass /Vol]Ordered By: Glenn Abdullahi on 05-19-2024 Protein (U) [Mass/Vol] Protein [Mass/volume] in Urine by Test strip Negative [facility] Protein [Mass/volume] in Ser um or PlasmaOrdered By: Glenn Abdullahi on 05-19-2024 Protein [Mass/Vol] Protein [Mass/volume ] in Serum or Plasma 6.4-8.9 [facility] RBC Auto (Bld) [#/Vol]Ordere d By: Glenn Abdullahi on 05-19-2024 RBC (Bld) [#/Vol] Erythrocytes [#/volu me] in Blood by Automated count 3.60-5.00 [facility] Serum or plasma albumin/glob ulin mass ratioOrdered By: Glenn Abdullahi 05-19-2024 Albumin/Globulin [Mass ratio] Serum or plasma albumin/globulin mass ratio [facility] Serum or plasma anion gap de terminationOrdered By: Glenn Abdullahi 05-19-2024 Anion gap [Moles/Vol] Serum or plasma an ion gap determination 6.0-15.0 [facility] Serum or plasma non-glucuron idated bilirubin measurement (mass/volume)Ordered By: Glenn Abdullahi on 05-19-2024 Bilirubin.indirect [Mass/Vol] Serum or plasma non-glucuronidated bilirubin measurement (mass/volume) [facility] Sodium [Moles/volume] in Ser um or PlasmaOrdered By: Glenn Abdullahi 05-19-2024 Sodium [Moles/Vol] Sodium [Moles/volume ] in Serum or Plasma 136-145 [facility] Specific gravity Test strip (U) [Rel density]Ordered By: Glenn Abdullahi on 05-19-2024 Specific gravity (U) [Rel density] Specific gravity of Urine by Test strip 1.001-1.03 0 [facility] Urea nitrogen [Mass/volume] in Serum or PlasmaOrdered By: Glenn Abdullahi on 05-19-2024 Urea nitrogen [Mass/Vol] Urea nitrogen [Mass/volume] in Serum or Plasma 10-13 [facility] Urobilinogen Test strip (U) [Mass/Vol]Ordered By: Glenn Abdullahi on 05-19-2024 Urobilinogen (U) [Mass/Vol] Urobilinogen [Mass/volume] in Urine by Test strip Normal [facility] WBC Auto (Bld) [#/Vol]Ordere d By: Glenn Abdullahi on 05-19-2024 WBC (Bld) [#/Vol] Leukocytes [#/volume ] in Blood by Automated count 3.8-11.6 [facility] pH Test strip (U)Ordered By: Glenn Abdullahi on 05-19-2024 pH (U) pH of Urine by Test strip 5.0-9.0 [facility] Alanine aminotransferase [En zymatic activity/volume] in Serum or PlasmaOrdered By: Glenn Abdullahi on 05-16-2024 ALT [Catalytic activity/Vol] Alanine aminotransferase [Enzymatic activity/volume] in Serum or Plasma [facility] Albumin [Mass/volume] in Ser um or Plasma by Bromocresol green (BCG) dye binding methoOrdered By: Glenn Abdullahi on 05-16-2024 Albumin BCG dye [Mass/Vol] Albumin [Mass/volume] in Serum or Plasma by Bromocresol green (BCG) dye binding metho 3.5-5.7 [facility] Alkaline phosphatase [Enzyma tic activity/volume] in Serum or PlasmaOrdered By: Glenn Abdullahi on 05-16-2024 ALP [Catalytic activity/Vol] Alkaline phosphatase [Enzymatic activity/volume] in Serum or Plasma 34-104 [facility] Appearance of UrineOrdered B y: Glenn Abdullahi on 02-25-2025 Appearance (U) Urine appearance Clear [facility] Aspartate aminotransferase [ Enzymatic activity/volume] in Serum or PlasmaOrdered By: Glenn Abdullahi on 05-16-2024 AST [Catalytic activity/Vol] Aspartate aminotransferase [Enzymatic activity/volume] in Serum or Plasma 13-39 [facility] Basophils Auto (Bld) [#/Vol] Ordered By: Glenn Abdullahi on 05-16-2024 Basophils (Bld) [#/Vol] Automated basophil count 0.0-0.2 [facility] Basophils/100 WBC Auto (Bld) Ordered By: Glenn Abdullahi on 05-16-2024 Basophils/100 WBC (Bld) Automated basophil % . [facility] Bilirubin Test strip Ql (U)O rdered By: Glenn Abdullahi on 05-16-2024 Bilirubin Ql (U) Bilirubin.total [Pre sence] in Urine by Test strip Negative [facility] Bilirubin.direct [Mass/volum e] in Serum or PlasmaOrdered By: Glenn Abdullahi on 05-16-2024 Bilirubin.direct [Mass/Vol] Bilirubin.direct [Mass/volume] in Serum or Plasma Low 0.03-0.18 [facility] Comment on above: If the DBIL is less than 0.1, IBIL is not able to becalculated. Bilirubin.total [Mass/volume ] in Serum or PlasmaOrdered By: Glenn Abdullahi 05-16-2024 Bilirubin [Mass/Vol] Bilirubin.total [Mass/volume] in Serum or Plasma 0.3-1.0 [facility] Calcium [Mass/volume] in Ser um or PlasmaOrdered By: Glenn Abdullahi 05-16-2024 Calcium [Mass/Vol] Calcium [Mass/volume ] in Serum or Plasma 8.6-10.3 [facility] Carbon dioxide, total [Moles /volume] in Serum or PlasmaOrdered By: Glenn Abdullahi 05-16-2024 CO2 [Moles/Vol] Carbon dioxide, tota l [Moles/volume] in Serum or Plasma Low 21.0-31.0 [facility] Chloride [Moles/volume] in S mayte or PlasmaOrdered By: Glenn Abdullahi 05-16-2024 Chloride [Moles/Vol] Chloride [Moles/vol ume] in Serum or Plasma 98-107 [facility] Choriogonadotropin.beta subu nit [Units/volume] in Serum or PlasmaOrdered By: Glenn Abdullahi on 05-16-2024 HCG.beta subunit Qn Choriogonadotropin.b eta subunit [Units/volume] in Serum or Plasma [facility] Comment on above: Approximate Approxim ate hCG Gestational Age Range (mIU/ml) (weeks)0.2-1 5-50 1-2 50-500 2-3 100-5,000 3-4 500-10,000 4-5 1,000-50,000 5-6 10,000-100,000 6-8 15,000-200,000 8-12 10,000-100,000 Color Auto (U)Ordered By: Toro Abdullahi on 05-16-2024 Color (U) Color of Urine by Auto Yellow Fi [facility] Complete Blood Count Auto Di ffon 05-16-2024 Basophils (Bld) [#/Vol] 0.0 10*3/uL Normal 0.0-0.2 [facility] Comment on above: Result Comment: PERF ORMED BY: [place] [address] PATHOLOGIST SENIOR SALES OPERATIONS MANAGER SARAH ANDREWS M.D. Performed By: #### H EPATIC, CBC, BMP, LIPASE #### [facility] [address] [place] [address] Basophils/100 WBC (Bld) 0.0 % Normal . [facility] Comment on above: Performed By: #### H EPATIC, CBC, BMP, LIPASE #### [facility] [address] [place] [address] Eosinophils (Bld) [#/Vol] 0.0 10*3/uL Normal 0.0-0.45 [facility] Comment on above: Performed By: #### H EPATIC, CBC, BMP, LIPASE #### [facility] [address] [place] [address] Eosinophils/100 WBC (Bld) 0.0 % Normal . [facility] Comment on above: Performed By: #### H EPATIC, CBC, BMP, LIPASE #### [address] Erythrocyte distribution width (RBC) [Ratio] 13.7 % Normal 11.9-15.3 [facility] Comment on above: Performed By: #### H EPATIC, CBC, BMP, LIPASE #### [address] Hematocrit (Bld) [Volume fraction] 33.8 % Low 34.0-46.4 [facility] Comment on above: Performed By: #### H EPATIC, CBC, BMP, LIPASE #### [address] Hemoglobin (Bld) [Mass/Vol] 11.7 g/dL Low 11.8-15.4 [facility] Comment on above: Performed By: #### H EPATIC, CBC, BMP, LIPASE #### [address] Lymphocytes (Bld) [#/Vol] 0.6 10*3/uL Low 1.00-4.8 [facility] Comment on above: Performed By: #### H EPATIC, CBC, BMP, LIPASE #### [address] Lymphocytes/100 WBC (Bld) 4.6 % Normal . [facility] Comment on above: Performed By: #### H EPATIC, CBC, BMP, LIPASE #### [address] MCH (RBC) [Entitic mass] 29.7 pg Normal 24.7-34.3 [facility] Comment on above: Performed By: #### H EPATIC, CBC, BMP, LIPASE #### [address] MCV (RBC) [Entitic vol] 86.3 fL Normal 80-100 [facility] Comment on above: Performed By: #### H EPATIC, CBC, BMP, LIPASE #### [address] Mean Corpuscular HGB Conc 34.5 g/dL Normal 32.0-35.0 [facility] Comment on above: Performed By: #### H EPATIC, CBC, BMP, LIPASE #### [address] Monocyte Distribution Width Not performed Normal 0.00-20.00 [facility] Comment on above: Result Comment: Unab le to calculate MDW because the Absolute Monocyte Count is <0.8. Performed By: #### H EPATIC, CBC, BMP, LIPASE #### [address] Monocytes (Bld) [#/Vol] 0.2 10*3/uL Normal 0.0-0.8 [facility] Comment on above: Performed By: #### H EPATIC, CBC, BMP, LIPASE #### [address] Monocytes/100 WBC (Bld) 1.2 % Normal . [facility] Comment on above: Performed By: #### H EPATIC, CBC, BMP, LIPASE #### [address] Neutrophils (Bld) [#/Vol] 13.0 10*3/uL High 1.8-7.7 [facility] Comment on above: Performed By: #### H EPATIC, CBC, BMP, LIPASE #### [address] Neutrophils/100 WBC (Bld) 94.2 % Normal . [facility] Comment on above: Performed By: #### H EPATIC, CBC, BMP, LIPASE #### [address] NRBC% 0.0 /100{WBC} Normal 0-0.5 [facility] Comment on above: Performed By: #### H EPATIC, CBC, BMP, LIPASE #### [address] Platelet mean volume (Bld) [Entitic vol] 11.1 fL High 6.3-10.7 [facility] Comment on above: Performed By: #### H EPATIC, CBC, BMP, LIPASE #### [address] Platelets (Bld) [#/Vol] 186 10*3/uL Normal 150-450 [facility] Comment on above: Performed By: #### H EPATIC, CBC, BMP, LIPASE #### [address] RBC (Bld) [#/Vol] 3.92 10*6/uL Normal 3.60-5.00 [facility] Comment on above: Performed By: #### H EPATIC, CBC, BMP, LIPASE #### [address] WBC (Bld) [#/Vol] 13.8 10*3/uL High 3.8-11.6 [facility] Comment on above: Performed By: #### H EPATIC, CBC, BMP, LIPASE #### [address] Comprehensive Metabolic Pane blanquita 05-16-2024 Albumin [Mass/Vol] 4.2 g/dL Normal 3.5-5.7 [facility] Comment on above: Performed By: #### H EPATIC, CBC, BMP, LIPASE #### [address] Albumin/Globulin [Mass ratio] 1.2 {ratio} Normal [facility] Comment on above: Performed By: #### H EPATIC, CBC, BMP, LIPASE #### [address] ALP [Catalytic activity/Vol] 46 U/L Normal 34-104 [facility] Comment on above: Performed By: #### H EPATIC, CBC, BMP, LIPASE #### [address] ALT [Catalytic activity/Vol] 9 U/L Normal 7-52 [facility] Comment on above: Performed By: #### H EPATIC, CBC, BMP, LIPASE #### [facility] [address] [place] [address] Anion gap [Moles/Vol] 17.4 mmol/L High 6.0-15.0 [facility] Comment on above: Performed By: #### H EPATIC, CBC, BMP, LIPASE #### [address] AST [Catalytic activity/Vol] 17 U/L Normal 13-39 [facility] Comment on above: Performed By: #### H EPATIC, CBC, BMP, LIPASE #### [address] Bilirubin [Mass/Vol] 0.4 mg/dL Normal 0.3-1.0 [facility] Comment on above: Performed By: #### H EPATIC, CBC, BMP, LIPASE #### [address] Calcium [Mass/Vol] 9.4 mg/dL Normal 8.6-10.3 [facility] Comment on above: Performed By: #### H EPATIC, CBC, BMP, LIPASE #### [address] Chloride [Moles/Vol] 106 mmol/L Normal 98-107 [facility] Comment on above: Performed By: #### H EPATIC, CBC, BMP, LIPASE #### [address] CO2 [Moles/Vol] 16.0 mmol/L Low 21.0-31.0 [facility] Comment on above: Performed By: #### H EPATIC, CBC, BMP, LIPASE #### [address] Creatinine [Mass/Vol] 0.52 mg/dL Low 0.60-1.20 [facility] Comment on above: Performed By: #### H EPATIC, CBC, BMP, LIPASE #### [address] Creatinine Clr Calc Pharmacy 146.48 Normal [facility] Comment on above: Performed By: #### H EPATIC, CBC, BMP, LIPASE #### [address] GFR/1.73 sq M.predicted MDRD (S/P/Bld) [Vol rate/Area] mL/min/{1.73_m2} Normal [facility] Comment on above: Performed By: #### H EPATIC, CBC, BMP, LIPASE #### [address] Globulin (S) [Mass/Vol] 3.4 g/dL Normal [facility] Comment on above: Performed By: #### H EPATIC, CBC, BMP, LIPASE #### [address] Glucose [Mass/Vol] 160 mg/dL High 70-100 [facility] Comment on above: Result Comment: [facility] Glucose Reference Range is dependent on time and content of last meal. Glucose of more than 200 mg/dL in a nonstressed, ambulatory subject supports the diagnosis of Diabetes Mellitus. ADA recommended reference range Performed By: #### H EPATIC, CBC, BMP, LIPASE #### [address] Potassium [Moles/Vol] 3.4 mmol/L Low 3.5-5.1 [facility] Comment on above: Result Comment: Hemo lysis is present at a level that could interfere with the result. Contact lab if redraw is required Performed By: #### H EPATIC, CBC, BMP, LIPASE #### [address] Protein [Mass/Vol] 7.6 g/dL Normal 6.4-8.9 [facility] Comment on above: Performed By: #### H EPATIC, CBC, BMP, LIPASE #### [address] Sodium [Moles/Vol] 136 mmol/L Normal 136-145 [facility] Comment on above: Performed By: #### H EPATIC, CBC, BMP, LIPASE #### [address] Urea nitrogen [Mass/Vol] 9 mg/dL Normal 7-25 [facility] Comment on above: Performed By: #### H EPATIC, CBC, BMP, LIPASE #### [facility] [address] Creatinine [Mass/volume] in Serum or PlasmaOrdered By: Glenn Abdullahi on 05-16-2024 Creatinine [Mass/Vol] Creatinine [Mass/v olume] in Serum or Plasma Low 0.60-1.20 [facility] Eosinophils Auto (Bld) [#/Vo l]Ordered By: Glenn Abdullahi on 05-16-2024 Eosinophils (Bld) [#/Vol] Automated eosinophil count 0.0-0.45 [facility] Eosinophils/100 WBC Auto (Bl d)Ordered By: Glenn Abdullahi on 05-16-2024 Eosinophils/100 WBC (Bld) Automated eosinophil % . [facility] Erythrocyte distribution wid th Auto (RBC) [Ratio]Ordered By: Glenn Abdullahi on 05-16-2024 Erythrocyte distribution width (RBC) [Ratio] Erythrocyte distribution width [Ratio] by Automated count 11.9-15.3 [facility] Globulin Calc (S) [Mass/Vol] Ordered By: Glenn Abdullahi on 05-16-2024 Globulin (S) [Mass/Vol] Serum globulin measurement by calculation (mass/volume) [facility] Glucose [Mass/volume] in Ser um or PlasmaOrdered By: Glenn Abdullahi 05-16-2024 Glucose [Mass/Vol] Glucose [Mass/volume ] in Serum or Plasma High 70-100 [facility] Comment on above: ADA recommended refe [...] by Test strip High Normal [facility] HCG,Quantitativeon HCG,Quantitative 89845.00 m[iU]/mL Normal T he [facility] Comment on above: Result Comment: Appr oximate Approximate hCG Gestational Age Range (mIU/ml) (weeks) 0.2-1 5-50 1-2 50-500 2-3 100-5,000 3-4 500-10,000 4-5 1,000-50,000 5-6 10,000-100,000 6-8 15,000-200,000 8-12 10,000-100,000 PERFORMED BY: [place] [address] PATHOLOGIST SENIOR SALES OPERATIONS MANAGER SARAH ANDREWS M.D. Performed By: #### H EPATIC, CBC, BMP, LIPASE #### [address] Hematocrit Auto (Bld) [Volum e fraction]Ordered By: Glenn Abdullahi on 05-16-2024 Hematocrit (Bld) [Volume fraction] Hematocrit [Volume Fraction] of Blood by Automated count Low 34.0-46.4 [facility] Hemoglobin Test strip Ql (U) Ordered By: Glenn Abdullahi on 05-16-2024 Hemoglobin Ql (U) Hemoglobin [Presence ] in Urine by Test strip Negative [facility] Hemoglobin [Mass/volume] in BloodOrdered By: Glenn Abdullahi on 05-16-2024 Hemoglobin (Bld) [Mass/Vol] Hemoglobin [Mass/volume] in Blood Low 11.8-15.4 [facility] Hepatic Panelon 05-16-2024 Bilirubin,Indirect 0.4 mg/dL Normal [facility] Comment on above: Performed By: #### H EPATIC, CBC, BMP, LIPASE #### [address] Bilirubin.indirect [Mass/Vol] 0.00 mg/dL Low 0.03-0.18 [facility] Comment on above: Result Comment: If t DBIL is less than 0.1, IBIL is not able to be calculated. Performed By: #### H EPATIC, CBC, BMP, LIPASE #### [address] Ketones Test strip Ql (U)Ord ered By: Glenn Abdullahi on 05-16-2024 Ketones Ql (U) Ketones [Presence] i n Urine by Test strip High Negative [facility] Leukocyte esterase [Presence ] in Urine by Test stripOrdered By: Glenn Abdullahi on 05-16-2024 Leukocyte esterase Test strip Ql (U) Leukocyte esterase [Presence] in Urine by Test strip Negative [facility] Leukocytes [#/volume] correc rossy for nucleated erythrocytes in Blood by Automated counOrdered By: Glenn Abdullahi on 05-16-2024 WBC corrected for nucl RBC Auto (Bld) [#/Vol] Leukocytes [#/volume] corrected for nucleated erythrocytes in Blood by Automated coun High 3.8-11.6 [facility] Lipaseon 05-16-2024 Lipase [Catalytic activity/Vol] 25.0 U/L Normal 11.0-82.0 [facility] Comment on above: Performed By: #### H EPATIC, CBC, BMP, LIPASE #### [address] Lipase [Enzymatic activity/v olume] in Serum or PlasmaOrdered By: Glenn Abdullahi on 05-16-2024 Lipase [Catalytic activity/Vol] Lipase [Enzymatic activity/volume] in Serum or Plasma 11.0-82.0 [facility] Lymphocytes Auto (Bld) [#/Vo l]Ordered By: Glenn Abdullahi on 05-16-2024 Lymphocytes (Bld) [#/Vol] Lymphocytes [#/volume] in Blood by Automated count Low 1.00-4.8 [facility] Lymphocytes/100 WBC Auto (Bl d)Ordered By: Glenn Abdullahi on 05-16-2024 Lymphocytes/100 WBC (Bld) Lymphocytes/100 leukocytes in Blood by Automated count . [facility] MCH Auto (RBC) [Entitic mass ]Ordered By: Glenn Abdullahi on 05-16-2024 MCH (RBC) [Entitic mass] MCH [Entitic mass] by Automated count 24.7-34.3 [facility] MCHC Auto (RBC) [Mass/Vol]Or dered By: Glenn Abdullahi on 05-16-2024 MCHC (RBC) [Mass/Vol] MCHC [Mass/volume] by Automated count 32.0-35.0 [facility] MCV Auto (RBC) [Entitic vol] Ordered By: Glenn Abdullahi on 05-16-2024 MCV (RBC) [Entitic vol] MCV [Entitic volume] by Automated count 80-100 [facility] Monocyte distribution width [Entitic volume] in Blood by AutomatedOrdered By: Glenn Abdullahi on 05-16-2024 Monocyte distribution width Auto (Bld) [Entitic vol] Monocyte distribution width [Entitic volume] in Blood by Automated 0.00-20.00 [facility] Comment on above: Unable to calculate MDW because the Absolute Monocyte Count is <0.8. Monocytes Auto (Bld) [#/Vol] Ordered By: Glenn Abdullahi on 05-16-2024 Monocytes (Bld) [#/Vol] Automated blood monocyte count 0.0-0.8 [facility] Monocytes/100 WBC Auto (Bld) Ordered By: Glenn Abdullahi on 05-16-2024 Monocytes/100 WBC (Bld) Automated monocyte % . [facility] Neutrophils Auto (Bld) [#/Vo l]Ordered By: Glenn Abdullahi on 05-16-2024 Neutrophils (Bld) [#/Vol] Neutrophils [#/volume] in Blood by Automated count High 1.8-7.7 [facility] Neutrophils/100 WBC Auto (Bl d)Ordered By: Glenn Abdullahi on 05-16-2024 Neutrophils/100 WBC (Bld) Automated neutrophil % . [facility] Nitrite Test strip Ql (U)Ord ered By: Glenn Abdullahi on 05-16-2024 Nitrite Ql (U) Nitrite [Presence] i n Urine by Test strip Negative [facility] No Panel InformationOrdered By: Glenn Abdullahi on 05-16-2024 Estimated GFR (CKD-EPI) > 60.0 mL/Min [facility] Creatinine Clearance (Chem 146.48 [facility] Nucleated erythrocytes [Pres ence] in Blood by Automated countOrdered By: Glenn Abdullahi on 05-16-2024 Nucleated RBC Auto Ql (Bld) Nucleated erythrocytes [Presence] in Blood by Automated count 0-0.5 [facility] Platelet mean volume Auto (B ld) [Entitic vol]Ordered By: Glenn Abdullahi on 05-16-2024 Platelet mean volume (Bld) [Entitic vol] Platelet mean volume [Entitic volume] in Blood by Automated count High 6.3-10.7 [facility] Platelets Auto (Bld) [#/Vol] Ordered By: Glenn Abdullahi on 05-16-2024 Platelets (Bld) [#/Vol] Platelets [#/volume] in Blood by Automated count 150-450 [facility] Potassium [Moles/volume] in Serum or PlasmaOrdered By: Glenn Abdullahi on 05-16-2024 Potassium [Moles/Vol] Potassium [Moles/v olume] in Serum or Plasma Low 3.5-5.1 [facility] Comment on above: Hemolysis is present at a level that could interfere with the result.Contact lab if redraw is required Protein Test strip (U) [Mass /Vol]Ordered By: Glenn Abdullahi on 05-16-2024 Protein (U) [Mass/Vol] Protein [Mass/volume] in Urine by Test strip Negative [facility] Protein [Mass/volume] in Ser um or PlasmaOrdered By: Glenn Abdullahi on 05-16-2024 Protein [Mass/Vol] Protein [Mass/volume ] in Serum or Plasma 6.4-8.9 [facility] RBC Auto (Bld) [#/Vol]Ordere d By: Glenn Abdullahi on 05-16-2024 RBC (Bld) [#/Vol] Erythrocytes [#/volu me] in Blood by Automated count 3.60-5.00 [facility] Serum or plasma albumin/glob ulin mass ratioOrdered By: Glenn Abdullahi 05-16-2024 Albumin/Globulin [Mass ratio] Serum or plasma albumin/globulin mass ratio [facility] Serum or plasma anion gap de terminationOrdered By: Glenn Abdullahi on 05-16-2024 Anion gap [Moles/Vol] Serum or plasma an ion gap determination High 6.0-15.0 [facility] Serum or plasma non-glucuron idated bilirubin measurement (mass/volume)Ordered By: Glenn Abdullahi on 05-16-2024 Bilirubin.indirect [Mass/Vol] Serum or plasma non-glucuronidated bilirubin measurement (mass/volume) [facility] Sodium [Moles/volume] in Ser um or PlasmaOrdered By: Glenn Abdullahi on 05-16-2024 Sodium [Moles/Vol] Sodium [Moles/volume ] in Serum or Plasma 136-145 [facility] Specific gravity Test strip (U) [Rel density]Ordered By: Glenn Abdullahi on 05-16-2024 Specific gravity (U) [Rel density] Specific gravity of Urine by Test strip 1.001-1.03 0 [facility] Urea nitrogen [Mass/volume] in Serum or PlasmaOrdered By: Glenn Abdullahi on 05-16-2024 Urea nitrogen [Mass/Vol] Urea nitrogen [Mass/volume] in Serum or Plasma 7-25 [facility] Urinalysison 05-16-2024 Appearance (U) Clear Normal Clear [facility] Comment on above: Order Comment: Name Collection Type:: Clean-Voided Midstream Performed By: #### U A #### [facility] [address] [place] [address] [place] Bilirubin,Urine Negative Normal Negative [facility] Comment on above: Order Comment: Name Collection Type:: Clean-Voided Midstream Performed By: #### U A #### [facility] [address] [place] [address] [place] Color (U) Light-Yellow Normal Yellow [facility] Comment on above: Order Comment: Name Collection Type:: Clean-Voided Midstream Performed By: #### U A #### [facility] [address] [place] [id number] [place] Glucose Ql (U) 500 mg/dL High Normal [facility] Comment on above: Order Comment: Name Collection Type:: Clean-Voided Midstream Performed By: #### U A #### [facility] [address] [place] [id number] [place] Ketones Ql (U) 4+ High Negative [facility] Comment on above: Order Comment: Name Collection Type:: Clean-Voided Midstream Performed By: #### U A #### [facility] [address] [place] [id number] [place] Leukocyte esterase Test strip Ql (U) Negative Normal Negative [facility] Comment on above: Order Comment: Name Collection Type:: Clean-Voided Midstream Performed By: #### U A #### [place] [address] [place] Nitrite,Urine Negative Normal Negative [facility] Comment on above: Order Comment: Name Collection Type:: Clean-Voided Midstream Performed By: #### U A #### [address] Occult Blood,Urine Negative Normal Negative [facility] Comment on above: Order Comment: Name Collection Type:: Clean-Voided Midstream Result Comment: PERF ORMED BY: [place] [address] PATHOLOGIST S[employer] SAL[employer] OPERATIONS MANAGER SARAH ANDREWS M.D. Performed By: #### U A #### [address] pH (U) 8.0 [pH] Normal 5.0-9.0 [facility] Comment on above: Order Comment: Name Collection Type:: Clean-Voided Midstream Performed By: #### U A #### [address] Protein,Urine Negative Normal Negative [facility] Comment on above: Order Comment: Name Collection Type:: Clean-Voided Midstream Performed By: #### U A #### [place] [address] [place] Specificy [place],Urine 1.020 Normal 1.001-1.03 0 [facility] Comment on above: Order Comment: Name Collection Type:: Clean-Voided Midstream Performed By: #### U A #### [place] [address] [place] Urobilinogen,Urine Normal Normal Normal [facility] Comment on above: Order Comment: Name Collection Type:: Clean-Voided Midstream Performed By: #### U A #### [address] Urobilinogen Test strip (U) [Mass/Vol]Ordered By: Glenn Abdullahi on 05-16-2024 Urobilinogen (U) [Mass/Vol] Urobilinogen [Mass/volume] in Urine by Test strip Normal [facility] WBC Auto (Bld) [#/Vol]Ordere d By: Glenn Abdullahi on 05-16-2024 WBC (Bld) [#/Vol] Leukocytes [#/volume ] in Blood by Automated count High 3.8-11.6 [facility] pH Test strip (U)Ordered By: Glenn Abdullahi on 05-16-2024 pH (U) pH of Urine by Test strip 5.0-9.0 [facility] Urinalysis macro (dipstick) panel (U)Ordered By: Gloria Garcias on 04-24-2024 Bilirubin, UA Negative Negative - 4(70) +++ mg/dL [facility] Work Phone: Blood, UA Negative Negative - 50 Josiah/mcL [facility] Work Phone: Clarity, UA Clear [facility] Work Phone: Color, UA Yellow [facility] Work Phone: Glucose, UA Negative Negative - 1999(110) ++++ mg/dL [facility] Work Phone: Interpretation and review of laboratory results Abnormal [facility] Work Phone: Ketones, UA Negative Negative - 160(16) ++++ mg/dL [facility] Work Phone: Leukocytes, UA Negative Negative - 500+++ Archana/mcL [facility] Work Phone: Nitrite, UA Negative Negative - Positive [facility] Work Phone: pH, UA 6 5 - 9 [facility] Work Phone: Protein, UA Negative Negative - 2000(20) ++++ mg/dL [facility] Work Phone: Spec Grav, UA 1.03 1 - 1.03 [facility] Work Phone: Urobilinogen, UA 1.0 0.2 - 12 mg/dL [facility] Work Phone: [facility] Work Phone: Alanine aminotransferase [En zymatic activity/volume] in Serum or PlasmaOrdered By: Parminder Powell on 04-05-2024 ALT [Catalytic activity/Vol] Alanine aminotransferase [Enzymatic activity/volume] in Serum or Plasma 7-52 [facility] Albumin [Mass/volume] in Ser um or Plasma by Bromocresol green (BCG) dye binding methoOrdered By: Parminder Powell on 04-05-2024 Albumin BCG dye [Mass/Vol] Albumin [Mass/volume] in Serum or Plasma by Bromocresol green (BCG) dye binding metho 3.5-5.7 [facility] Alkaline phosphatase [Enzyma tic activity/volume] in Serum or PlasmaOrdered By: Parminder Powell on 04-05-2024 ALP [Catalytic activity/Vol] Alkaline phosphatase [Enzymatic activity/volume] in Serum or Plasma 34-104 [facility] Appearance of UrineOrdered B y: Parminder Powell on 04-05-2024 Appearance (U) Urine appearance Clear [facility] Aspartate aminotransferase [ Enzymatic activity/volume] in Serum or PlasmaOrdered By: Parminder Powell on 04-05-2024 AST [Catalytic activity/Vol] Aspartate aminotransferase [Enzymatic activity/volume] in Serum or Plasma 13-39 [facility] Bacteria [Presence] in Urine by AutomatedOrdered By: Parminder Powell on 04-05-2024 Bacteria Auto Ql (U) Bacteria [Presence] in Urine by Automated None Seen [facility] Basophils Auto (Bld) [#/Vol] Ordered By: Parminder Powell on 04-05-2024 Basophils (Bld) [#/Vol] Automated basophil count 0.0-0.2 [facility] Basophils/100 WBC Auto (Bld) Ordered By: Parminder Powell on 04-05-2024 Basophils/100 WBC (Bld) Automated basophil % . [facility] Bilirubin Test strip Ql (U)O rdered By: Parminder Powell on 04-05-2024 Bilirubin Ql (U) Bilirubin.total [Pre sence] in Urine by Test strip Negative [facility] Bilirubin.total [Mass/volume ] in Serum or PlasmaOrdered By: Parminder Powell on 04-05-2024 Bilirubin [Mass/Vol] Bilirubin.total [Mass/volume] in Serum or Plasma 0.3-1.0 [facility] BioFire Not Detectedon 04-05 BioFire Not Detected Not detected Normal Not Detecte [facility] Comment on above: Result Comment: This is a duplicate RP2.1 COVID (PCR) result to be used for statistical tracking purpose only. PERFORMED BY: [place] [address] PATHOLOGIST SENIOR SALES OPERATIONS MANAGER SARAH ANDREWS M.D. Performed By: #### A DDONUAPLUS, URDS, CUU #### [address] COVID-19 Detected/Not Detect edOrdered By: Parminder Powell on 04-05-2024 SARS-CoV-2 (COVID-19) RNA TORRES+non-probe Ql (Nph) Not detected Not Detecte [facility] Comment on above: This is a duplicate RP2.1 COVID (PCR) result to be used for statistical tracking purpose only. Calcium [Mass/volume] in Ser um or PlasmaOrdered By: Parminder Powell on 04-05-2024 Calcium [Mass/Vol] Calcium [Mass/volume ] in Serum or Plasma 8.6-10.3 [facility] Carbon dioxide, total [Moles /volume] in Serum or PlasmaOrdered By: Parminder Powell on 04-05-2024 CO2 [Moles/Vol] Carbon dioxide, tota l [Moles/volume] in Serum or Plasma Low 21.0-31.0 [facility] Chloride [Moles/volume] in S mayte or PlasmaOrdered By: Parminder Powell on 04-05-2024 Chloride [Moles/Vol] Chloride [Moles/vol ume] in Serum or Plasma 98-107 [facility] Color Auto (U)Ordered By: Eduar Powell on 04-05-2024 Color (U) Color of Urine by [facility] Count Auto Di ffon 04-05-2024 Basophils (Bld) [#/Vol] 0.0 10*3/uL Normal 0.0-0.2 [facility] Comment on above: Result Comment: PERF ORMED BY: [place] [address] PATHOLOGIST SENIOR SALES OPERATIONS MANAGER SARAH ANDREWS M.D. Performed By: #### H EPATIC, CBC, BMP, LIPASE #### [address] Basophils/100 WBC (Bld) 0.2 % Normal . [facility] Comment on above: Performed By: #### H EPATIC, CBC, BMP, LIPASE #### [address] Eosinophils (Bld) [#/Vol] 0.0 10*3/uL Normal 0.0-0.45 [facility] Comment on above: Performed By: #### H EPATIC, CBC, BMP, LIPASE #### [address] Eosinophils/100 WBC (Bld) 0.0 % Normal . [facility] Comment on above: Performed By: #### H EPATIC, CBC, BMP, LIPASE #### [address] Erythrocyte distribution width (RBC) [Ratio] 14.5 % Normal 11.9-15.3 [facility] Comment on above: Performed By: #### H EPATIC, CBC, BMP, LIPASE #### [address] Hematocrit (Bld) [Volume fraction] 34.4 % Normal 34.0-46.4 [facility] Comment on above: Performed By: #### H EPATIC, CBC, BMP, LIPASE #### [address] Hemoglobin (Bld) [Mass/Vol] 11.4 g/dL Low 11.8-15.4 [facility] Comment on above: Performed By: #### H EPATIC, CBC, BMP, LIPASE #### [address] Lymphocytes (Bld) [#/Vol] 0.8 10*3/uL Low 1.00-4.8 [facility] Comment on above: Performed By: #### H EPATIC, CBC, BMP, LIPASE #### [address] Lymphocytes/100 WBC (Bld) 6.0 % Normal . [facility] Comment on above: Performed By: #### H EPATIC, CBC, BMP, LIPASE #### [address] MCH (RBC) [Entitic mass] 28.9 pg Normal 24.7-34.3 [facility] Comment on above: Performed By: #### H EPATIC, CBC, BMP, LIPASE #### [address] MCV (RBC) [Entitic vol] 86.9 fL Normal 80-100 [facility] Comment on above: Performed By: #### H EPATIC, CBC, BMP, LIPASE #### [address] Mean Corpuscular HGB Conc 33.2 g/dL Normal 32.0-35.0 [facility] Comment on above: Performed By: #### H EPATIC, CBC, BMP, LIPASE #### [address] Monocytes (Bld) [#/Vol] 0.3 10*3/uL Normal 0.0-0.8 [facility] Comment on above: Performed By: #### H EPATIC, CBC, BMP, LIPASE #### [address] Monocytes/100 WBC (Bld) 19.24 % Normal 0.00-20.00 [facility] Comment on above: Performed By: #### H EPATIC, CBC, BMP, LIPASE #### [address] Monocytes/100 WBC (Bld) 2.1 % Normal . [facility] Comment on above: Performed By: #### H EPATIC, CBC, BMP, LIPASE #### [address] Neutrophils (Bld) [#/Vol] 11.7 10*3/uL High 1.8-7.7 [facility] Comment on above: Performed By: #### H EPATIC, CBC, BMP, LIPASE #### [address] Neutrophils/100 WBC (Bld) 91.7 % Normal . [facility] Comment on above: Performed By: #### H EPATIC, CBC, BMP, LIPASE #### [address] NRBC% 0.0 /100{WBC} Normal 0-0.5 [facility] Comment on above: Performed By: #### H EPATIC, CBC, BMP, LIPASE #### [address] Platelet mean volume (Bld) [Entitic vol] 11.2 fL High 6.3-10.7 [facility] Comment on above: Performed By: #### H EPATIC, CBC, BMP, LIPASE #### [place] [address] [place] Platelets (Bld) [#/Vol] 205 10*3/uL Normal 150-450 [facility] [facility] Comment on above: Performed By: #### H EPATIC, CBC, BMP, LIPASE #### [address] RBC (Bld) [#/Vol] 3.95 10*6/uL Normal 3.60-5.00 [facility] Comment on above: Performed By: #### H EPATIC, CBC, BMP, LIPASE #### [address] WBC (Bld) [#/Vol] 12.7 10*3/uL High 3.8-11.6 [facility] Comment on above: Performed By: #### H EPATIC, CBC, BMP, LIPASE #### [address] [address] [place] Comprehensive Metabolic Pane blanquita 04-05-2024 Albumin [Mass/Vol] 4.2 g/dL Normal 3.5-5.7 [facility] Comment on above: Performed By: #### H EPATIC, CBC, BMP, LIPASE #### [address] Albumin/Globulin [Mass ratio] 1.3 {ratio} Normal [facility] Comment on above: Performed By: #### H EPATIC, CBC, BMP, LIPASE #### [address] ALP [Catalytic activity/Vol] 60 U/L Normal 34-104 [facility] Comment on above: Performed By: #### H EPATIC, CBC, BMP, LIPASE #### [address] ALT [Catalytic activity/Vol] 20 U/L Normal 7-52 [facility] Comment on above: Performed By: #### H EPATIC, CBC, BMP, LIPASE #### [address] Anion gap [Moles/Vol] 15.3 mmol/L High 6.0-15.0 [facility] Comment on above: Performed By: #### H EPATIC, CBC, BMP, LIPASE #### [address] AST [Catalytic activity/Vol] 13 U/L Normal 13-39 [facility] Comment on above: Performed By: #### H EPATIC, CBC, BMP, LIPASE #### [address] Bilirubin [Mass/Vol] 0.5 mg/dL Normal 0.3-1.0 [facility] Comment on above: Performed By: #### H EPATIC, CBC, BMP, LIPASE #### [address] Calcium [Mass/Vol] 9.1 mg/dL Normal 8.6-10.3 [facility] Comment on above: Performed By: #### H EPATIC, CBC, BMP, LIPASE #### [facility] [address] Chloride [Moles/Vol] 106 mmol/L Normal 98-107 [facility] Comment on above: Performed By: #### H EPATIC, CBC, BMP, LIPASE #### [facility] [address] CO2 [Moles/Vol] 19.0 mmol/L Low 21.0-31.0 The [facility] Comment on above: Performed By: #### H EPATIC, CBC, BMP, LIPASE #### [address] Creatinine [Mass/Vol] 0.41 mg/dL Low 0.60-1.20 [facility] Comment on above: Performed By: #### H EPATIC, CBC, BMP, LIPASE #### [address] Creatinine Clr Calc Pharmacy 181.93 Normal [facility] Comment on above: Performed By: #### H EPATIC, CBC, BMP, LIPASE #### [place] [address] [place] GFR/1.73 sq M.predicted MDRD (S/P/Bld) [Vol rate/Area] mL/min/{1.73_m2} Normal [facility] Comment on above: Performed By: #### H EPATIC, CBC, BMP, LIPASE #### [address] Globulin (S) [Mass/Vol] 3.2 g/dL Normal [facility] Comment on above: Performed By: #### H EPATIC, CBC, BMP, LIPASE #### [address] Glucose [Mass/Vol] 138 mg/dL High 70-100 [facility] Comment on above: Result Comment: [place] Glucose Reference Range is dependent on time and content of last meal. Glucose of more than 200 mg/dL in a nonstressed, ambulatory subject supports the diagnosis of Diabetes Mellitus. ADA recommended reference range Performed By: #### H EPATIC, CBC, BMP, LIPASE #### [address] Potassium [Moles/Vol] 3.3 mmol/L Low 3.5-5.1 [facility] Comment on above: Performed By: #### H EPATIC, CBC, BMP, LIPASE #### [address] Protein [Mass/Vol] 7.4 g/dL Normal 6.4-8.9 [facility] Comment on above: Performed By: #### H EPATIC, CBC, BMP, LIPASE #### [address] Sodium [Moles/Vol] 137 mmol/L Normal 136-145 [facility] Comment on above: Performed By: #### H EPATIC, CBC, BMP, LIPASE #### [address] Urea nitrogen [Mass/Vol] 9 mg/dL Normal 7-25 [facility] Comment on above: Performed By: #### H EPATIC, CBC, BMP, LIPASE #### [address] Creatinine [Mass/volume] in Serum or PlasmaOrdered By: Parminder Powell on 04-05-2024 Creatinine [Mass/Vol] Creatinine [Mass/v olume] in Serum or Plasma Low 0.60-1.20 [facility] Dipstick and Microscopicon 0 04-05-2024 Appearance (U) Clear Normal Clear The [facility] Comment on above: Order Comment: Name Collection Type:: Clean-Voided Midstream Performed By: #### A DDONUAPLUS #### [address] Bacteria,Urine None Seen Normal None Seen [facility] Comment on above: Order Comment: Name Collection Type:: Clean-Voided Midstream Performed By: #### A DDONUAPLUS #### [address] Bilirubin,Urine Negative Normal Negative The [facility] Comment on above: Order Comment: Name Collection Type:: Clean-Voided Midstream Performed By: #### A DDONUAPLUS #### [address] Color (U) Light-Yellow Normal Yellow [facility] Comment on above: Order Comment: Name Collection Type:: Clean-Voided Midstream Performed By: #### A DDONUAPLUS #### [address] Glucose Ql (U) 150 mg/dL High Normal The [facility] Comment on above: Order Comment: Name Collection Type:: Clean-Voided Midstream Performed By: #### A DDONUAPLUS #### [place] [address] [place] Hyaline Casts,Urine None Normal 0-8 [facility] Comment on above: Order Comment: Name Collection Type:: Clean-Voided Midstream Performed By: #### A DDONUAPLUS #### [address] Ketones Ql (U) 4+ High Negative The [facility] Comment on above: Order Comment: Name Collection Type:: Clean-Voided Midstream Performed By: #### A DDONUAPLUS #### [address] Leukocyte esterase Test strip Ql (U) 3+ High Negative [facility] Comment on above: Order Comment: Name Collection Type:: Clean-Voided Midstream Performed By: #### A DDONUAPLUS #### [place] [address] [place] Mucus,Urine Rare Normal [facility] Comment on above: Order Comment: Name Collection Type:: Clean-Voided Midstream Result Comment: PERF ORMED BY: [place] [address] PATHOLOGIST SENIOR SALES OPERATIONS MANAGER SARAH ANDREWS M.D. Performed By: #### A DDONUAPLUS #### [place] [address] [place] Nitrite,Urine Negative Normal Negative The [facility] Comment on above: Order Comment: Name Collection Type:: Clean-Voided Midstream Performed By: #### A DDONUAPLUS #### [address] Occult Blood,Urine Negative Normal Negative [facility] Comment on above: Order Comment: Name Collection Type:: Clean-Voided Midstream Result Comment: PERF ORMED BY: [place] [address] PATHOLOGIST SENIOR SALES OPERATIONS MANAGER SARAH ANDREWS M.D. Performed By: #### A DDONUAPLUS #### [address] pH (U) 6.5 [pH] Normal 5.0-9.0 [facility] Comment on above: Order Comment: Name Collection Type:: Clean-Voided Midstream Performed By: #### A DDONUAPLUS #### [address] Protein,Urine Negative Normal Negative The [facility] Comment on above: Order Comment: Name Collection Type:: Clean-Voided Midstream Performed By: #### A DDONUAPLUS #### [address] RBC,Urine 1 [HPF] Normal 0-4 [facility] Comment on above: Order Comment: Name Collection Type:: Clean-Voided Midstream Performed By: #### A DDONUAPLUS #### [place] [address] [place] Specificy [place],Urine 1.018 Normal 1.001-1.03 0 [facility] Comment on above: Order Comment: Name Collection Type:: Clean-Voided Midstream Performed By: #### A DDONUAPLUS #### [place] [address] [place] Squamous Epithelial Cell,Urine 3 [HPF] High 0-2 [facility] Comment on above: Order Comment: Name Collection Type:: Clean-Voided Midstream Performed By: #### A DDONUAPLUS #### [facility] [address] Urobilinogen,Urine Normal Normal Normal [facility] Comment on above: Order Comment: Name Collection Type:: Clean-Voided Midstream Performed By: #### A DDONUAPLUS #### [facility] [address] WBC,Urine 3 [HPF] Normal 0-4 [facility] Comment on above: Order Comment: Name Collection Type:: Clean-Voided Midstream Performed By: #### A DDONUAPLUS #### [facility] [address] Eosinophils Auto (Bld) [#/Vo l]Ordered By: Parminder Powell on 04-05-2024 Eosinophils (Bld) [#/Vol] Automated eosinophil count 0.0-0.45 [facility] Eosinophils/100 WBC Auto (Bl d)Ordered By: Parminder Powell on 04-05-2024 Eosinophils/100 WBC (Bld) Automated eosinophil % . [facility] Epithelial cells.squamous [# /area] in Urine sediment by Automated countOrdered By: Parminder Powell on 04-05-2024 Epithelial cells.squamous Auto (Urine sed) [#/Area] Epithelial cells.squamous [#/area] in Urine sediment by Automated count High 0-2 [facility] Erythrocyte distribution wid th Auto (RBC) [Ratio]Ordered By: Parminder Powell on 04-05-2024 Erythrocyte distribution width (RBC) [Ratio] Erythrocyte distribution width [Ratio] by Automated count 11.9-15.3 [facility] Erythrocytes [#/area] in Uri ne sediment by Automated countOrdered By: Parminder Powell on 04-05-2024 RBC Auto (Urine sed) [#/Area] Erythrocytes [#/area] in Urine sediment by Automated count 0-4 [facility] Globulin Calc (S) [Mass/Vol] Ordered By: Parminder Powell on 04-05-2024 Globulin (S) [Mass/Vol] Serum globulin measurement by calculation (mass/volume) [facility] Glucose [Mass/volume] in Ser um or PlasmaOrdered By: Parminder Powell on 04-05-2024 Glucose [Mass/Vol] Glucose [Mass/volume ] in Serum or Plasma High 70-100 [facility] Comment on above: ADA recommended refe [...] by Test strip High Normal [facility] Hematocrit Auto (Bld) [Volum e fraction]Ordered By: Parminder Powell on 04-05-2024 Hematocrit (Bld) [Volume fraction] Hematocrit [Volume Fraction] of Blood by Automated count 34.0-46.4 [facility] Hemoglobin Test strip Ql (U) Ordered By: Parminder Powell on 04-05-2024 Hemoglobin Ql (U) Hemoglobin [Presence ] in Urine by Test strip Negative [facility] Hemoglobin [Mass/volume] in BloodOrdered By: Parminder Powell on 04-05-2024 Hemoglobin (Bld) [Mass/Vol] Hemoglobin [Mass/volume] in Blood Low 11.8-15.4 [facility] Hyaline casts [#/area] in Ur ine sediment by Automated countOrdered By: Parminder Powell on 04-05-2024 Hyaline casts Auto (Urine sed) [#/Area] Hyaline casts [#/area] in Urine sediment by Automated count 0-8 [facility] Ketones Test strip Ql (U)Ord ered By: Parminder Powell on 04-05-2024 Ketones Ql (U) Ketones [Presence] i n Urine by Test strip High Negative [facility] Leukocyte esterase [Presence ] in Urine by Test stripOrdered By: Parminder Powell on 04-05-2024 Leukocyte esterase Test strip Ql (U) Leukocyte esterase [Presence] in Urine by Test strip High Negative [facility] Leukocytes [#/area] in Urine sediment by Automated countOrdered By: Parminder Powell on 04-05-2024 WBC Auto (Urine sed) [#/Area] Leukocytes [#/area] in Urine sediment by Automated count 0-4 [facility] Leukocytes [#/volume] correc rossy for nucleated erythrocytes in Blood by Automated counOrdered By: Parminder Powell on 04-05-2024 WBC corrected for nucl RBC Auto (Bld) [#/Vol] Leukocytes [#/volume] corrected for nucleated erythrocytes in Blood by Automated coun High 3.8-11.6 [facility] Lipaseon 04-05-2024 Lipase [Catalytic activity/Vol] 11.0 U/L Normal 11.0-82.0 [facility] Comment on above: Result Comment: PERF ORMED BY: [place] [address] PATHOLOGIST SENIOR SALES OPERATIONS MANAGER SARAH ANDREWS M.D. Performed By: #### H EPATIC, CBC, BMP, LIPASE #### [address] Lipase [Enzymatic activity/v olume] in Serum or PlasmaOrdered By: Parminder Powell on 04-05-2024 Lipase [Catalytic activity/Vol] Lipase [Enzymatic activity/volume] in Serum or Plasma 11.0-82.0 [facility] Lymphocytes Auto (Bld) [#/Vo l]Ordered By: Parminder Powell on 04-05-2024 Lymphocytes (Bld) [#/Vol] Lymphocytes [#/volume] in Blood by Automated count Low 1.00-4.8 [facility] Lymphocytes/100 WBC Auto (Bl d)Ordered By: Parminder Powell on 04-05-2024 Lymphocytes/100 WBC (Bld) Lymphocytes/100 leukocytes in Blood by Automated count . [facility] MCH Auto (RBC) [Entitic mass ]Ordered By: Parminder Powell on 04-05-2024 MCH (RBC) [Entitic mass] MCH [Entitic mass] by Automated count 24.7-34.3 [facility] MCHC Auto (RBC) [Mass/Vol]Or dered By: Parminder Powell on 04-05-2024 MCHC (RBC) [Mass/Vol] MCHC [Mass/volume] by Automated count 32.0-35.0 [facility] MCV Auto (RBC) [Entitic vol] Ordered By: Parminder Powell on 04-05-2024 MCV (RBC) [Entitic vol] MCV [Entitic volume] by Automated count 80-100 [facility] Monocyte distribution width [Entitic volume] in Blood by AutomatedOrdered By: Parminder Powell on 04-05-2024 Monocyte distribution width Auto (Bld) [Entitic vol] Monocyte distribution width [Entitic volume] in Blood by Automated 0.00-20.00 [facility] Monocytes Auto (Bld) [#/Vol] Ordered By: Parminder Powell on 04-05-2024 Monocytes (Bld) [#/Vol] Automated blood monocyte count 0.0-0.8 [facility] Monocytes/100 WBC Auto (Bld) Ordered By: Parminder Powell on 04-05-2024 Monocytes/100 WBC (Bld) Automated monocyte % . [facility] Mucus [Presence] in Urine by AutomatedOrdered By: Parminder Powell on 04-05-2024 Mucus Auto Ql (U) Mucus [Presence] in Urine by Automated [facility] Neutrophils Auto (Bld) [#/Vo l]Ordered By: Parminder Powell on 04-05-2024 Neutrophils (Bld) [#/Vol] Neutrophils [#/volume] in Blood by Automated count High 1.8-7.7 [facility] Neutrophils/100 WBC Auto (Bl d)Ordered By: Parminder Powell on 04-05-2024 Neutrophils/100 WBC (Bld) Automated neutrophil % . [facility] Nitrite Test strip Ql (U)Ord ered By: Parminder Powell on 04-05-2024 Nitrite Ql (U) Nitrite [Presence] i n Urine by Test strip Negative [facility] No Panel InformationOrdered By: Parminder Powell on 04-05-2024 Estimated GFR (CKD-EPI) > 60.0 mL/Min [facility] Creatinine Clearance (Chem 181.93 [facility] Nucleated erythrocytes [Pres ence] in Blood by Automated countOrdered By: Parminder Powell on 04-05-2024 Nucleated RBC Auto Ql (Bld) Nucleated erythrocytes [Presence] in Blood by Automated count 0-0.5 [facility] Platelet mean volume Auto (B ld) [Entitic vol]Ordered By: Parminder Powell on 04-05-2024 Platelet mean volume (Bld) [Entitic vol] Platelet mean volume [Entitic volume] in Blood by Automated count High 6.3-10.7 [facility] Platelets Auto (Bld) [#/Vol] Ordered By: Parminder Powell on 04-05-2024 Platelets (Bld) [#/Vol] Platelets [#/volume] in Blood by Automated count 150-450 [facility] Potassium [Moles/volume] in Serum or PlasmaOrdered By: Parminder Powell on 04-05-2024 Potassium [Moles/Vol] Potassium [Moles/v olume] in Serum or Plasma Low 3.5-5.1 [facility] Protein Test strip (U) [Mass /Vol]Ordered By: Parminder Powell on 04-05-2024 Protein (U) [Mass/Vol] Protein [Mass/volume] in Urine by Test strip Negative [facility] Protein [Mass/volume] in Ser um or PlasmaOrdered By: Parminder Powell on 04-05-2024 Protein [Mass/Vol] Protein [Mass/volume ] in Serum or Plasma 6.4-8.9 [facility] RBC Auto (Bld) [#/Vol]Ordere d By: Parminder Powell on 04-05-2024 RBC (Bld) [#/Vol] Erythrocytes [#/volu me] in Blood by Automated count 3.60-5.00 [facility] Respiratory (Upper) Panel, P CRon 04-05-2024 [...] A H3 Blank Space -- PERFORMED BY: [facility] [address] [place] [address] PATHOLOGIST SENIOR SALES OPERATIONS MANAGER SARAH ANDREWS M.D. Normal [facility] Comment on above: Performed By: #### A RAFAEL GORDON CUU #### [address] Respiratory pathogens DNA an d RNA panel - Nasopharynx by TORRES with non-probe detectionOrdered By: Parminder Powell on 04-05-2024 Respiratory pathogens DNA and RNA panel TORRES+non-probe (Nph) Respiratory pathogens DNA and RNA panel - Nasopharynx by TORRES with non-probe detection [facility] Respiratory pathogens DNA and RNA panel TORRES+non-probe (Nph) Respiratory pathogens DNA and RNA panel - Nasopharynx by TORRES with non-probe detection [facility] Serum or plasma albumin/glob ulin mass ratioOrdered By: Parminder Powell 04-05-2024 Albumin/Globulin [Mass ratio] Serum or plasma albumin/globulin mass ratio [facility] Serum or plasma anion gap de terminationOrdered By: Parminder Powell 04-05-2024 Anion gap [Moles/Vol] Serum or plasma an ion gap determination High 6.0-15.0 [facility] Sodium [Moles/volume] in Ser um or PlasmaOrdered By: Parminder Powell 04-05-2024 Sodium [Moles/Vol] Sodium [Moles/volume ] in Serum or Plasma 136-145 [facility] Specific gravity Test strip (U) [Rel density]Ordered By: Parminder Powell on 04-05-2024 Specific gravity (U) [Rel density] Specific gravity of Urine by Test strip 1.001-1.03 0 [facility] Urea nitrogen [Mass/volume] in Serum or PlasmaOrdered By: Parminder Powell on 04-05-2024 Urea nitrogen [Mass/Vol] Urea nitrogen [Mass/volume] in Serum or Plasma 10-13 [facility] Urobilinogen Test strip (U) [Mass/Vol]Ordered By: Parminder Powell on 04-05-2024 Urobilinogen (U) [Mass/Vol] Urobilinogen [Mass/volume] in Urine by Test strip Normal [facility] WBC Auto (Bld) [#/Vol]Ordere d By: Parminder Powell on 04-05-2024 WBC (Bld) [#/Vol] Leukocytes [#/volume ] in Blood by Automated count High 3.8-11.6 [facility] pH Test strip (U)Ordered By: Parminder Powell on 04-05-2024 pH (U) pH of Urine by Test strip 5.0-9.0 [facility] BOX TESTon 04-03-2024 BOX TEST SENT OUT [facility] BOX1 [facility] BOX2 04/03/24 [facility] HCG ( test) Ql (U)o n 03-24-2024 Interpretation and review of laboratory results Abnormal [facility] Preg Test, Ur Positive Negative Count includes the [facility] US OB TRANSVAGINALon 025 US OB [...] x 5.5 cm (8 weeks, 6 days). [employer] rump length is 2.1 cm (8 weeks, [...] UA Positive Negative - 4(70) +++ mg/dL [facility] Comment on above: small Blood, UA Negative Negative - 50 Josiah/mcL [facility] Clarity, UA Clear [facility] Color, UA Yellow [facility] Glucose, UA Negative Negative - 2000(110) ++++ mg/dL [facility] Interpretation and review of laboratory results Abnormal [facility] Ketones, UA Positive Negative - 160(16) ++++ mg/dL [facility] Comment on above: trace Leukocytes, UA Positive Negative - 500+++ Archana/mcL [facility] Comment on above: small Nitrite, UA Negative Negative - Positive [facility] pH, UA 6.5 5 - 9 [facility] Protein, UA Positive Negative - 2000(20) ++++ mg/dL [facility] Comment on above: 30 mg Spec Grav, UA 1.025 1 - 1.03 [facility] Urobilinogen, UA 1.0 0.2 - 12 mg/dL Count includes the [facility] Alanine aminotransferase [En zymatic activity/volume] in Serum or PlasmaOrdered By: Surjit Stanton on 03-04-2024 ALT [Catalytic activity/Vol] Alanine aminotransferase [Enzymatic activity/volume] in Serum or Plasma [facility] Albumin [Mass/volume] in Ser um or Plasma by Bromocresol green (BCG) dye binding methoOrdered By: Surjit Stanton on 03-04-2024 Albumin BCG dye [Mass/Vol] Albumin [Mass/volume] in Serum or Plasma by Bromocresol green (BCG) dye binding metho 3.5-5.7 [facility] Alkaline phosphatase [Enzyma tic activity/volume] in Serum or PlasmaOrdered By: Surjit Stanton on 03-04-2024 ALP [Catalytic activity/Vol] Alkaline phosphatase [Enzymatic activity/volume] in Serum or Plasma Low 34-104 [facility] Anisocytosis LM Ql (Bld)Orde red By: Surjit Stanton on 03-04-2024 Anisocytosis Ql (Bld) Anisocytosis [Pres ence] in Blood by Light microscopy [facility] Appearance of UrineOrdered B y: Surjit Stanton on 03-04-2024 Appearance (U) Urine appearance Clear [facility] Aspartate aminotransferase [ Enzymatic activity/volume] in Serum or PlasmaOrdered By: Surjit Stanton on 03-04-2024 AST [Catalytic activity/Vol] Aspartate aminotransferase [Enzymatic activity/volume] in Serum or Plasma 13-39 [facility] Bacteria [Presence] in Urine by AutomatedOrdered By: Surjit Stanton on 03-04-2024 Bacteria Auto Ql (U) Bacteria [Presence] in Urine by Automated None Seen [facility] Basic Metabolic Panelon 02-19 Anion gap [Moles/Vol] 12.2 mmol/L Normal 6.0-15.0 Th e [facility] Comment on above: Performed By: #### H EPATIC, CBC, BMP, LIPASE #### [facility] [address] Calcium [Mass/Vol] 9.4 mg/dL Normal 8.6-10.3 [facility] Comment on above: Performed By: #### H EPATIC, CBC, BMP, LIPASE #### [facility] [address] [place] [address] [place] Chloride [Moles/Vol] 109 mmol/L High 98-107 [facility] Comment on above: Performed By: #### H EPATIC, CBC, BMP, LIPASE #### [facility] [address] [place] [address] [place] CO2 [Moles/Vol] 21.1 mmol/L Normal 21.0-31.0 [facility] Comment on above: Performed By: #### H EPATIC, CBC, BMP, LIPASE #### [facility] [address] Creatinine [Mass/Vol] 0.60 mg/dL Normal 0.60-1.20 [facility] Comment on above: Performed By: #### H EPATIC, CBC, BMP, LIPASE #### [place] [address] [place] Creatinine Clr Calc Pharmacy 122.59 Normal [facility] Comment on above: Performed By: #### H EPATIC, CBC, BMP, LIPASE #### [place] [address] [place] GFR/1.73 sq M.predicted MDRD (S/P/Bld) [Vol rate/Area] mL/min/{1.73_m2} Normal [facility] Comment on above: Performed By: #### H EPATIC, CBC, BMP, LIPASE #### [address] Glucose [Mass/Vol] 134 mg/dL High 70-100 [facility] Comment on above: Result Comment: [place] Glucose Reference Range is dependent on time and content of last meal. Glucose of more than 200 mg/dL in a nonstressed, ambulatory subject supports the diagnosis of Diabetes Mellitus. ADA recommended reference range Performed By: #### H EPATIC, CBC, BMP, LIPASE #### [address] Potassium [Moles/Vol] 3.3 mmol/L Low 3.5-5.1 [facility] Comment on above: Performed By: #### H EPATIC, CBC, BMP, LIPASE #### [address] Sodium [Moles/Vol] 139 mmol/L Normal 136-145 [facility] Comment on above: Performed By: #### H EPATIC, CBC, BMP, LIPASE #### [address] [place] [address] [facility] Urea nitrogen [Mass/Vol] 8 mg/dL Normal 7-25 [facility] Comment on above: Performed By: #### H EPATIC, CBC, BMP, LIPASE #### [facility] [address] Basophils Auto (Bld) [#/Vol] Ordered By: Surjit Stanton on 03-04-2024 Basophils (Bld) [#/Vol] Automated basophil count 0.0-0.2 [facility] Basophils/100 WBC Auto (Bld) Ordered By: Surjit Stanton on 03-04-2024 Basophils/100 WBC (Bld) Automated basophil % . [facility] Bilirubin Test strip Ql (U)O rdered By: Surjit Stanton on 03-04-2024 Bilirubin Ql (U) Bilirubin.total [Pre sence] in Urine by Test strip Negative [facility] Bilirubin.direct [Mass/volum e] in Serum or PlasmaOrdered By: Surjit Stanton on 03-04-2024 Bilirubin.direct [Mass/Vol] Bilirubin.direct [Mass/volume] in Serum or Plasma 0.03-0.18 [facility] Bilirubin.total [Mass/volume ] in Serum or PlasmaOrdered By: Surjit Stanton on 03-04-2024 Bilirubin [Mass/Vol] Bilirubin.total [Mass/volume] in Serum or Plasma 0.3-1.0 [facility] Calcium [Mass/volume] in Ser um or PlasmaOrdered By: Surjit Stanton on 03-04-2024 Calcium [Mass/Vol] Calcium [Mass/volume ] in Serum or Plasma 8.6-10.3 [facility] Carbon dioxide, total [Moles /volume] in Serum or PlasmaOrdered By: Surjit Stanton on 03-04-2024 CO2 [Moles/Vol] Carbon dioxide, tota l [Moles/volume] in Serum or Plasma 21.0-31.0 [facility] Chloride [Moles/volume] in S mayte or PlasmaOrdered By: Surjit Stanton on 03-04-2024 Chloride [Moles/Vol] Chloride [Moles/vol ume] in Serum or Plasma High 98-107 [facility] Choriogonadotropin.beta subu nit [Units/volume] in Serum or PlasmaOrdered By: Surjit Stanton on 03-04-2024 HCG.beta subunit Qn Choriogonadotropin.b eta subunit [Units/volume] in Serum or Plasma [facility] Comment on above: Approximate Approxim ate hCG Gestational Age Range (mIU/ml) (weeks)0.2-1 5-50 1-2 50-500 2-3 100-5,000 3-4 500-10,000 4-5 1,000-50,000 5-6 10,000-100,000 6-8 15,000-200,000 8-12 10,000-100,000 Color Auto (U)Ordered By: Neri Stanton on 03-04-2024 Color (U) Color of Urine by Auto Yellow [facility] Creatinine [Mass/volume] in Serum or PlasmaOrdered By: Surjit Stanton on 03-04-2024 Creatinine [Mass/Vol] Creatinine [Mass/v olume] in Serum or Plasma 0.60-1.20 [facility] Dipstick and Microscopicon 1 05-05-2023 Appearance (U) Clear Normal Clear [facility] Comment on above: Order Comment: Name Collection Type:: Clean-Voided Midstream Performed By: #### A DDONUAPLUS #### [facility] [address] [place] [id number] [place] Bacteria,Urine Rare Normal None Seen [facility] Comment on above: Order Comment: Name Collection Type:: Clean-Voided Midstream Performed By: #### A DDONUAPLUS #### [facility] [address] [place] [address] [place] Bilirubin,Urine Negative Normal Negative [facility] Comment on above: Order Comment: Name Collection Type:: Clean-Voided Midstream Performed By: #### A DDONUAPLUS #### [facility] [address] [place] [address] [place] Color (U) Light-Yellow Normal Yellow [facility] Comment on above: Order Comment: Name Collection Type:: Clean-Voided Midstream Performed By: #### A DDONUAPLUS #### [facility] [address] Glucose Ql (U) Normal Normal Normal [facility] Comment on above: Order Comment: Name Collection Type:: Clean-Voided Midstream Performed By: #### A DDONUAPLUS #### [facility] [address] [place] [address] [place] Hyaline Casts,Urine None Normal 0-8 [facility] Comment on above: Order Comment: Name Collection Type:: Clean-Voided Midstream Performed By: #### A DDONUAPLUS #### [place] [address] [place] Ketones Ql (U) 2+ High Negative [facility] Comment on above: Order Comment: Name Collection Type:: Clean-Voided Midstream Performed By: #### A DDONUAPLUS #### [place] [address] [place] Leukocyte esterase Test strip Ql (U) Negative Normal Negative [facility] Comment on above: Order Comment: Name Collection Type:: Clean-Voided Midstream Performed By: #### A DDONUAPLUS #### [place] [address] [place] Mucus,Urine 2+ Critically abnormal [facility] Comment on above: Order Comment: Name Collection Type:: Clean-Voided Midstream Result Comment: PERF ORMED BY: [place] [address] PATHOLOGIST SENIOR SALES OPERATIONS MANAGER SARAH ANDREWS M.D. Performed By: #### A DDONUAPLUS #### [place] [address] [place] Nitrite,Urine Negative Normal Negative [facility] Comment on above: Order Comment: Name Collection Type:: Clean-Voided Midstream Performed By: #### A DDONUAPLUS #### [place] [address] [place] Occult Blood,Urine Negative Normal Negative [facility] Comment on above: Order Comment: Name Collection Type:: Clean-Voided Midstream Result Comment: PERF ORMED BY: [place] [address] PATHOLOGIST SENIOR SALES OPERATIONS MANAGER SARAH ANDREWS M.D. Performed By: #### A DDONUAPLUS #### [address] pH (U) 8.5 [pH] Normal 5.0-9.0 [facility] Comment on above: Order Comment: Name Collection Type:: Clean-Voided Midstream Performed By: #### A DDONUAPLUS #### [address] Protein (U) [Mass/Vol] 20 mg/dL High Negative [facility] Comment on above: Order Comment: Name Collection Type:: Clean-Voided Midstream Performed By: #### A DDONUAPLUS #### [address] RBC,Urine 3 [HPF] Normal 0-4 [facility] Comment on above: Order Comment: Name Collection Type:: Clean-Voided Midstream Performed By: #### A DDONUAPLUS #### [address] Specificy [place],Urine 1.023 Normal 1.001-1.03 0 [facility] Comment on above: Order Comment: Name Collection Type:: Clean-Voided Midstream Performed By: #### A DDONUAPLUS #### [place] [address] [place] Squamous Epithelial Cell,Urine 5 [HPF] High 0-2 [facility] Comment on above: Order Comment: Name Collection Type:: Clean-Voided Midstream Performed By: #### A DDONUAPLUS #### [address] Urobilinogen,Urine Normal Normal Normal [facility] Comment on above: Order Comment: Name Collection Type:: Clean-Voided Midstream Performed By: #### A DDONUAPLUS #### [place] [address] [place] WBC,Urine 1 [HPF] Normal 0-4 [facility] Comment on above: Order Comment: Name Collection Type:: Clean-Voided Midstream Performed By: #### A DDONUAPLUS #### [facility] [address] Eosinophils Auto (Bld) [#/Vo l]Ordered By: Surjit Stanton on 03-04-2024 Eosinophils (Bld) [#/Vol] Automated eosinophil count 0.0-0.45 [facility] Eosinophils/100 WBC Auto (Bl d)Ordered By: Surjit Stanton on 03-04-2024 Eosinophils/100 WBC (Bld) Automated eosinophil % . [facility] Epithelial cells.squamous [# /area] in Urine sediment by Automated countOrdered By: Surjit Stanton on 03-04-2024 Epithelial cells.squamous Auto (Urine sed) [#/Area] Epithelial cells.squamous [#/area] in Urine sediment by Automated count High 0-2 [facility] Erythrocyte distribution wid th Auto (RBC) [Ratio]Ordered By: Surjit Stanton on 03-04-2024 Erythrocyte distribution width (RBC) [Ratio] Erythrocyte distribution width [Ratio] by Automated count 11.9-15.3 [facility] Erythrocyte morphology findi ng [Identifier] in BloodOrdered By: Surjit Stanton on 03-04-2024 RBC morphology finding Nom (Bld) RBC morphology Normal [facility] Erythrocytes [#/area] in Uri ne sediment by Automated countOrdered By: Surjit Stanton on 03-04-2024 RBC Auto (Urine sed) [#/Area] Erythrocytes [#/area] in Urine sediment by Automated count 0-4 [facility] Globulin Calc (S) [Mass/Vol] Ordered By: Surjit Stanton on 03-04-2024 Globulin (S) [Mass/Vol] Serum globulin measurement by calculation (mass/volume) [facility] Glucose [Mass/volume] in Ser um or PlasmaOrdered By: Surjit Stanton on 03-04-2024 Glucose [Mass/Vol] Glucose [Mass/volume ] in Serum or Plasma High 70-100 [facility] Comment on above: ADA recommended refe [...] Urine by Test strip Normal [facility] HCG,Quantitativeon HCG,Quantitative 29214.00 m[iU]/mL Normal T he [facility] Comment on above: Result Comment: Appr oximate Approximate hCG Gestational Age Range (mIU/ml) (weeks) 0.2-1 5-50 1-2 50-500 2-3 100-5,000 3-4 500-10,000 4-5 1,000-50,000 5-6 10,000-100,000 6-8 15,000-200,000 8-12 10,000-100,000 PERFORMED BY: [place] [address] PATHOLOGIST SENIOR SALES OPERATIONS MANAGER SARAH ANDREWS M.D. Performed By: #### H EPATIC, CBC, BMP, LIPASE #### [address] Hematocrit Auto (Bld) [Volum e fraction]Ordered By: Surjit Stanton on 03-04-2024 Hematocrit (Bld) [Volume fraction] Hematocrit [Volume Fraction] of Blood by Automated count 34.0-46.4 [facility] Hemoglobin Test strip Ql (U) Ordered By: Surjit Stanton on 03-04-2024 Hemoglobin Ql (U) Hemoglobin [Presence ] in Urine by Test strip Negative [facility] Hemoglobin [Mass/volume] in BloodOrdered By: Surjit Stanton on 03-04-2024 Hemoglobin (Bld) [Mass/Vol] Hemoglobin [Mass/volume] in Blood 11.8-15.4 [facility] Hepatic Panelon 03-04-2024 Albumin [Mass/Vol] 4.6 g/dL Normal 3.5-5.7 [facility] Comment on above: Performed By: #### H EPATIC, CBC, BMP, LIPASE #### [address] Albumin/Globulin [Mass ratio] 1.6 {ratio} Normal [facility] Comment on above: Performed By: #### H EPATIC, CBC, BMP, LIPASE #### [address] ALP [Catalytic activity/Vol] 32 U/L Low 34-104 [facility] Comment on above: Performed By: #### H EPATIC, CBC, BMP, LIPASE #### [address] ALT [Catalytic activity/Vol] 16 U/L Normal 7-52 [facility] Comment on above: Performed By: #### H EPATIC, CBC, BMP, LIPASE #### [address] AST [Catalytic activity/Vol] 14 U/L Normal 13-39 [facility] Comment on above: Performed By: #### H EPATIC, CBC, BMP, LIPASE #### [address] Bilirubin [Mass/Vol] 0.7 mg/dL Normal 0.3-1.0 [facility] Comment on above: Performed By: #### H EPATIC, CBC, BMP, LIPASE #### [address] Bilirubin,Indirect 0.6 mg/dL Normal [facility] Comment on above: Performed By: #### H EPATIC, CBC, BMP, LIPASE #### [address] Bilirubin.indirect [Mass/Vol] 0.10 mg/dL Normal 0.03-0.18 [facility] Comment on above: Performed By: #### H EPATIC, CBC, BMP, LIPASE #### [address] Globulin (S) [Mass/Vol] 2.9 g/dL Normal [facility] Comment on above: Performed By: #### H EPATIC, CBC, BMP, LIPASE #### [facility] [address] Protein [Mass/Vol] 7.5 g/dL Normal 6.4-8.9 [facility] Comment on above: Performed By: #### H EPATIC, CBC, BMP, LIPASE #### [facility] [address] Hyaline casts [#/area] in Ur ine sediment by Automated countOrdered By: Surjit Stanton on 03-04-2024 Hyaline casts Auto (Urine sed) [#/Area] Hyaline casts [#/area] in Urine sediment by Automated count 0-8 [facility] Ketones Test strip Ql (U)Ord ered By: Surjit Stanton on 03-04-2024 Ketones Ql (U) Ketones [Presence] i n Urine by Test strip High Negative [facility] Leukocyte esterase [Presence ] in Urine by Test stripOrdered By: Surjit Stanton on 03-04-2024 Leukocyte esterase Test strip Ql (U) Leukocyte esterase [Presence] in Urine by Test strip Negative [facility] Leukocytes [#/area] in Urine sediment by Automated countOrdered By: Surjit Stanton on 03-04-2024 WBC Auto (Urine sed) [#/Area] Leukocytes [#/area] in Urine sediment by Automated count 0-4 [facility] Leukocytes [#/volume] correc rossy for nucleated erythrocytes in Blood by Automated counOrdered By: Surjit Stanton on 03-04-2024 WBC corrected for nucl RBC Auto (Bld) [#/Vol] Leukocytes [#/volume] corrected for nucleated erythrocytes in Blood by Automated coun 3.8-11.6 [facility] Lipaseon 03-04-2024 Lipase [Catalytic activity/Vol] 15.0 U/L Normal 11.0-82.0 [facility] Comment on above: Performed By: #### H EPATIC, CBC, BMP, LIPASE #### [facility] [address] [place] [address] [place] Lipase [Enzymatic activity/v olume] in Serum or PlasmaOrdered By: Surjit Stanton on 03-04-2024 Lipase [Catalytic activity/Vol] Lipase [Enzymatic activity/volume] in Serum or Plasma 11.0-82.0 [facility] Lymphocytes Auto (Bld) [#/Vo l]Ordered By: Surjit Stanton on 03-04-2024 Lymphocytes (Bld) [#/Vol] Lymphocytes [#/volume] in Blood by Automated count 1.00-4.8 [facility] Lymphocytes/100 WBC Auto (Bl d)Ordered By: Surjit Stanton on 03-04-2024 Lymphocytes/100 WBC (Bld) Lymphocytes/100 leukocytes in Blood by Automated count . [facility] MCH Auto (RBC) [Entitic mass ]Ordered By: Surjit Stanton on 03-04-2024 MCH (RBC) [Entitic mass] MCH [Entitic mass] by Automated count 24.7-34.3 [facility] MCHC Auto (RBC) [Mass/Vol]Or dered By: Surjit Stanton on 03-04-2024 MCHC (RBC) [Mass/Vol] MCHC [Mass/volume] by Automated count 32.0-35.0 [facility] MCV Auto (RBC) [Entitic vol] Ordered By: Surjit Stanton on 03-04-2024 MCV (RBC) [Entitic vol] MCV [Entitic volume] by Automated count 80-100 [facility] Microcytes LM Ql (Bld)Ordere d By: Surjit Stanton on 03-04-2024 Microcytes Ql (Bld) Microcytes [Presence ] in Blood by Light microscopy [facility] Monocyte distribution width [Entitic volume] in Blood by AutomatedOrdered By: Surjit Stanton on 03-04-2024 Monocyte distribution width Auto (Bld) [Entitic vol] Monocyte distribution width [Entitic volume] in Blood by Automated 0.00-20.00 [facility] Monocytes Auto (Bld) [#/Vol] Ordered By: Surjit Stanton on 03-04-2024 Monocytes (Bld) [#/Vol] Automated blood monocyte count 0.0-0.8 [facility] Monocytes/100 WBC Auto (Bld) Ordered By: Surjit Stanton on 12-14-2024 Monocytes/100 WBC (Bld) Automated monocyte % . [facility] Mucus [Presence] in Urine by AutomatedOrdered By: Surjit Stanton on 03-04-2024 Mucus Auto Ql (U) Mucus [Presence] in Urine by Automated Abnormal [facility] Neutrophils Auto (Bld) [#/Vo l]Ordered By: Surjit Stanton on 03-04-2024 Neutrophils (Bld) [#/Vol] Neutrophils [#/volume] in Blood by Automated count 1.8-7.7 [facility] Neutrophils/100 WBC Auto (Bl d)Ordered By: Surjit Stanton on 03-04-2024 Neutrophils/100 WBC (Bld) Automated neutrophil % . [facility] Nitrite Test strip Ql (U)Ord ered By: Surjit Stanton on 03-04-2024 Nitrite Ql (U) Nitrite [Presence] i n Urine by Test strip Negative [facility] No Panel InformationOrdered By: Surjit Stanton on 03-04-2024 Estimated GFR (CKD-EPI) > 60.0 mL/Min [facility] Creatinine Clearance (Chem 122.59 [facility] Nucleated erythrocytes [Pres ence] in Blood by Automated countOrdered By: Surjit Stanton on 03-04-2024 Nucleated RBC Auto Ql (Bld) Nucleated erythrocytes [Presence] in Blood by Automated count 0-0.5 [facility] Platelet adequacy [Presence] in Blood by Light microscopyOrdered By: Surjit Stanton on 03-04-2024 Platelets LM Ql (Bld) Platelet adequacy [Presence] in Blood by Light microscopy Normal [facility] Platelet mean volume Auto (B ld) [Entitic vol]Ordered By: Surjit Stanton on 03-04-2024 Platelet mean volume (Bld) [Entitic vol] Platelet mean volume [Entitic volume] in Blood by Automated count High 6.3-10.7 [facility] Platelet morphology finding [Identifier] in BloodOrdered By: Surjit Stanton on 03-04-2024 Platelet morphology finding Nom (Bld) Platelet morphology finding [Identifier] in Blood Normal [facility] Platelets Auto (Bld) [#/Vol] Ordered By: Surjit Stanton on 03-04-2024 Platelets (Bld) [#/Vol] Platelets [#/volume] in Blood by Automated count 150-450 [facility] Potassium [Moles/volume] in Serum or PlasmaOrdered By: Surjit Stanton on 03-04-2024 Potassium [Moles/Vol] Potassium [Moles/v olume] in Serum or Plasma Low 3.5-5.1 [facility] Protein Test strip (U) [Mass /Vol]Ordered By: Surjit Stanton on 03-04-2024 Protein (U) [Mass/Vol] Protein [Mass/volume] in Urine by Test strip High Negative [facility] Protein [Mass/volume] in Ser um or PlasmaOrdered By: Surjit Stanton on 03-04-2024 Protein [Mass/Vol] Protein [Mass/volume ] in Serum or Plasma 6.4-8.9 [facility] RBC Auto (Bld) [#/Vol]Ordere d By: Surjit Stanton on 03-04-2024 RBC (Bld) [#/Vol] Erythrocytes [#/volu me] in Blood by Automated count 3.60-5.00 [facility] Scan and CBCon 03-04-2024 Anisocytosis Ql (Bld) Slight Normal [facility] Comment on above: Performed By: #### A RAFAEL GORDON, CUU #### [facility] [address] [place] [address] [place] Basophils (Bld) [#/Vol] 0.0 10*3/uL Normal 0.0-0.2 [facility] Comment on above: Performed By: #### A RAFAEL GORDON, CUU #### [facility] [address] [place] [address] [place] Basophils/100 WBC (Bld) 0.6 % Normal . [facility] Comment on above: Performed By: #### A RAFAEL GORDON, CUU #### [facility] [address] [place] [address] [place] Eosinophils (Bld) [#/Vol] 0.0 10*3/uL Normal 0.0-0.45 [facility] Comment on above: Performed By: #### A CHETNAUAPLUS, URDS, CUU #### [address] Eosinophils/100 WBC (Bld) 0.2 % Normal . [facility] Comment on above: Performed By: #### A DDONUAPLUS, URDS, CUU #### [address] Erythrocyte distribution width (RBC) [Ratio] 14.6 % Normal 11.9-15.3 [facility] Comment on above: Performed By: #### A DDONUAPLUS, URDS, CUU #### [address] Hematocrit (Bld) [Volume fraction] 38.2 % Normal 34.0-46.4 [facility] Comment on above: Performed By: #### A DDONUAPLUS, URDS, CUU #### [address] Hemoglobin (Bld) [Mass/Vol] 12.9 g/dL Normal 11.8-15.4 [facility] Comment on above: Performed By: #### A DDONUAPLUS URDS, CUU #### [address] Lymphocytes (Bld) [#/Vol] 1.3 10*3/uL Normal 1.00-4.8 [facility] Comment on above: Performed By: #### A DDONUAPLUS, URDS, CUU #### [address] Lymphocytes/100 WBC (Bld) 17.1 % Normal . [facility] Comment on above: Performed By: #### A DDONUAPLUS, URDS, CUU #### [address] MCH (RBC) [Entitic mass] 29.4 pg Normal 24.7-34.3 [facility] Comment on above: Performed By: #### A DDONUAPLUS, URDS, CUU #### [address] MCV (RBC) [Entitic vol] 86.9 fL Normal 80-100 [facility] Comment on above: Performed By: #### A RAFAEL GORDON, CUU #### [address] Mean Corpuscular HGB Conc 33.8 g/dL Normal 32.0-35.0 [facility] Comment on above: Performed By: #### A RAFAEL GORDON, CUU #### [address] Microcytosis Slight Normal [facility] Comment on above: Performed By: #### A RAFAEL GORDON, CUU #### [address] Monocytes (Bld) [#/Vol] 0.3 10*3/uL Normal 0.0-0.8 [facility] Comment on above: Performed By: #### A RAFAEL GORDON, CUU #### [address] Monocytes/100 WBC (Bld) 15.87 % Normal 0.00-20.00 [facility] Comment on above: Performed By: #### A RAFAEL GORDON, CUU #### [address] Monocytes/100 WBC (Bld) 4.4 % Normal . [facility] Comment on above: Performed By: #### A RAFAEL GORDON, CUU #### [place] [address] [place] Neutrophils (Bld) [#/Vol] 6.0 10*3/uL Normal 1.8-7.7 [facility] Comment on above: Performed By: #### A RAFAEL GORDON, CUU #### [place] [address] [place] Neutrophils/100 WBC (Bld) 77.7 % Normal . [facility] Comment on above: Performed By: #### A DDONUAPLUS, URDS, CUU #### [address] NRBC% 0.0 /100{WBC} Normal 0-0.5 [facility] Comment on above: Performed By: #### A DDONUAPLUS, URDS, CUU #### [address] Platelet Estimate Normal Normal Normal [facility] Comment on above: Performed By: #### A DDONUAPLUS, URDS, CUU #### [address] Platelet mean volume (Bld) [Entitic vol] 11.5 fL High 6.3-10.7 [facility] Comment on above: Performed By: #### A DDONUAPLUS, URDS, CUU #### [address] Platelet Morphology Normal Normal Normal [facility] Comment on above: Result Comment: PERF ORMED BY: [place] [address] PATHOLOGIST S[employer]IOR SALES OPERATIONS MANAGER SARAH ANDREWS M.D. Performed By: #### A DDONUAPLUS, URDS, CUU #### [address] Platelets (Bld) [#/Vol] 182 10*3/uL Normal 150-450 [facility] Comment on above: Performed By: #### A DDONUAPLUS, URDS, CUU #### [address] RBC (Bld) [#/Vol] 4.40 10*6/uL Normal 3.60-5.00 [facility] Comment on above: Performed By: #### A DDONUAPLUS, URDS, CUU #### [address] RBC morphology finding Nom (Bld) Normal Normal Normal [facility] Comment on above: Performed By: #### A DDONUAPLUS, URDS, CUU #### [facility] [address] WBC (Bld) [#/Vol] 7.7 10*3/uL Normal 3.8-11.6 [facility] Comment on above: Performed By: #### A DDONUAPLUS, URDS, CUU #### [facility] [address] Serum or plasma albumin/glob ulin mass ratioOrdered By: Surjit Stanton on 03-04-2024 Albumin/Globulin [Mass ratio] Serum or plasma albumin/globulin mass ratio [facility] Serum or plasma anion gap de terminationOrdered By: Surjit Stanton on 03-04-2024 Anion gap [Moles/Vol] Serum or plasma an ion gap determination 6.0-15.0 [facility] Serum or plasma non-glucuron idated bilirubin measurement (mass/volume)Ordered By: Surjit Stanton on 03-04-2024 Bilirubin.indirect [Mass/Vol] Serum or plasma non-glucuronidated bilirubin measurement (mass/volume) [facility] Sodium [Moles/volume] in Ser um or PlasmaOrdered By: Surjit Stanton on 03-04-2024 Sodium [Moles/Vol] Sodium [Moles/volume ] in Serum or Plasma 136-145 [facility] Specific gravity Test strip (U) [Rel density]Ordered By: Surjit Stanton on 03-04-2024 Specific gravity (U) [Rel density] Specific gravity of Urine by Test strip 1.001-1.03 0 [facility] Urea nitrogen [Mass/volume] in Serum or PlasmaOrdered By: Surjit Stanton on 03-04-2024 Urea nitrogen [Mass/Vol] Urea nitrogen [Mass/volume] in Serum or Plasma 7-25 [facility] Urobilinogen Test strip (U) [Mass/Vol]Ordered By: Surjit Stanton on 03-04-2024 Urobilinogen (U) [Mass/Vol] Urobilinogen [Mass/volume] in Urine by Test strip Normal [facility] WBC Auto (Bld) [#/Vol]Ordere d By: Surjit Romy on 03-04-2024 WBC (Bld) [#/Vol] Leukocytes [#/volume ] in Blood by Automated count 3.8-11.6 [facility] pH Test strip (U)Ordered By: Surjitpreethi Stanton on 03-04-2024 pH (U) pH of Urine by Test strip 5.0-9.0 [facility] CT cervical spine wo conon 0 11-25-2023 CT cervical spine wo con [facility] [place] [address] [place] [address] CT Scan Report Signed Patient: Nicole Farris MR#: [id number] : 1995 Acct:[id number] Age/Sex: 28 / F ADM Date: 11/25/23 Loc: ER Room: Type: [facility] ER Attending Dr: Copies to: Vianney Genao APRN Ordering Provider: Vianney Genao APRN Date of Service: 11/25/23 CT/CT cervical spine wo con: increased pain ([id number]) CT/CT head/brain wo con: pain CLINICAL DATA: [...] Priscila Barbosa M.D.11/25/2023 7:01 PM Dictation Location: [place] [address] Transcribed By: [facility] 11/25/231900 Dictated By: Priscila Barbosa MD 11/25/231852 Signed By: 11/25/231900 Normal [facility] XR CERVICAL SPINE 2-3 VIEWSo [...] 47 U/L Normal 7-52 U/L [facility] Albumin [Mass/volume] in Ser um or Plasma by Bromocresol green (BCG) dye binding methoOrdered By: Adin Gan on 06-04-2022 Albumin BCG dye [Mass/Vol] 4.9 g/dL 3.5-5.7 [facility] Alkaline phosphatase [Enzyma tic activity/volume] in Serum or PlasmaOrdered By: Adin Gan on 06-04-2022 ALP [Catalytic activity/Vol] 104 U/L Normal 34-104 U/L [facility] Aspartate aminotransferase [ Enzymatic activity/volume] in Serum or PlasmaOrdered By: Adin Gan on 06-04-2022 AST [Catalytic activity/Vol] 23 U/L Normal 13-39 U/L [facility] Bilirubin.total [Mass/volume ] in Serum or PlasmaOrdered By: Adin Gan on 06-04-2022 Bilirubin [Mass/Vol] 0.5 mg/dL 0.3-1.0 [facility] Calcium [Mass/volume] in Ser um or PlasmaOrdered By: Adin Gan on 06-04-2022 Calcium [Mass/Vol] 9.7 mg/dL 8.6-10.3 [facility] Carbon dioxide, total [Moles /volume] in Serum or PlasmaOrdered By: Adin Gan on 06-04-2022 CO2 [Moles/Vol] 27.2 mmol/L 21.0-31.0 [facility] Chloride [Moles/volume] in S mayte or PlasmaOrdered By: Adin Gan on 06-04-2022 Chloride [Moles/Vol] 104 mmol/L Normal 98-107 mmol/L [facility] Comprehensive Metabolic Pane blanquita 06-04-2022 Albumin [Mass/Vol] 4.174366 g/dL Normal 3.5-5.7 g/dL [employer] Other Bilirubin [Mass/Vol] 0.6022637 mg/dL Normal 0.3- 1.0 mg/dL [employer] Other Calcium [Mass/Vol] 9.3032632 mg/dL Normal 8.6-10 .3 mg/dL [employer] Other CO2 [Moles/Vol] 27.55572204 mmol/L Normal 21.0-3 1.0 mmol/L [employer] Other Creatinine [Mass/Vol] 0.96321932 mg/dL Normal 0. 60-1.20 mg/dL [employer] Other Potassium [Moles/Vol] 4.84469315 mmol/L Normal 3 .5-5.1 mmol/L [employer] Other Protein [Mass/Vol] 7.430186 g/dL Normal 6.4-8.9 g/dL [employer] Other Comprehensive Metabolic Panel 3.0 g/dL [employer] Other Creatinine [Mass/volume] in Serum or PlasmaOrdered By: Adin Gan on 06-04-2022 Creatinine [Mass/Vol] 0.71 mg/dL 0.60-1.20 [facility] Erythrocyte distribution wid th Auto (RBC) [Ratio]Ordered By: Adin Gan on 06-04-2022 Erythrocyte distribution width (RBC) [Ratio] 13.5 % 11.9-15.3 [facility] Erythrocytes [#/volume] in B lood by Automated countOrdered By: Adin Gan on 06-04-2022 RBC (Bld) [#/Vol] 4.44 10*6/uL Normal 3.60-5.00 [facility] Globulin Calc (S) [Mass/Vol] Ordered By: Adin Gan on 06-04-2022 Globulin (S) [Mass/Vol] 3.0 g/dL [facility] Glucose [Mass/volume] in Ser um or PlasmaOrdered By: Adin Gan on 06-04-2022 Glucose [Mass/Vol] 89 mg/dL Normal 74-109 mg/dL [facility] Comment on above: ADA recommended refe rence rangeRandom Glucose Reference Range is dependent on time and content of last meal. Glucose of more than 200 mg/dL in a nonstressed, ambulatory subject supports the diagnosis of Diabetes Mellitus. Hematocrit Auto (Bld) [Volum e fraction]Ordered By: Adin Gan on 06-04-2022 Hematocrit (Bld) [Volume fraction] 38.5 % 34.0-46.4 [facility] Hemoglobin [Mass/volume] in BloodOrdered By: Adin Gan on 06-04-2022 Hemoglobin (Bld) [Mass/Vol] 12.8 g/dL 11.8-15.4 [facility] Hemogram CBC Without Diffon 06-04-2022 Erythrocyte distribution width (RBC) [Ratio] 13.500 % Normal 11.9-15.3 % [employer] Other Hematocrit (Bld) [Volume fraction] 38.500 % Normal 34.0-46.4 % [employer] Other Hemoglobin (Bld) [Mass/Vol] 12.799138 g/dL Normal 11.8-15.4 g/dL [employer] Other MCH (RBC) [Entitic mass] 28.7000 pg Normal 24.7-34.3 pg [employer] Other MCV (RBC) [Entitic vol] 86.7000 fL Normal 80-100 fL [employer] Other Platelet mean volume (Bld) [Entitic vol] 11.1000 fL High 6.3-10.7 fL [employer] Other WBC (Bld) [#/Vol] 6.197336724 10*3/uL Normal 3.8 -11.6 10*3/uL [employer] Other Hemogram CBC Without Diff 33.1 g/dL Normal 32.0-35.0 g/dL [employer] Other Laboratory - Chemistry and C hemistry - challengeOrdered By: Adin Gan on 06-04-2022 GFR/1.73 sq M.predicted MDRD (S/P/Bld) [Vol rate/Area] mL/min/{1.73_m2} [facility] Leukocytes [#/volume] correc rossy for nucleated erythrocytes in Blood by Automated counOrdered By: Adin Gan on 06-04-2022 WBC corrected for nucl RBC Auto (Bld) [#/Vol] 6.6 10*3/uL 3.8-11.6 [facility] MCH Auto (RBC) [Entitic mass ]Ordered By: Adin Gan on 06-04-2022 MCH (RBC) [Entitic mass] 28.7 pg 24.7-34.3 [facility] MCHC Auto (RBC) [Mass/Vol]Or dered By: Adin Gan on 06-04-2022 MCHC (RBC) [Mass/Vol] 33.1 g/dL 32.0-35.0 [facility] MCV Auto (RBC) [Entitic vol] Ordered By: Adin Gan on 06-04-2022 MCV (RBC) [Entitic vol] 86.7 fL 80-100 [facility] No Panel InformationOrdered By: Adin Gan on 06-04-2022 Pharmacy Creatinine Clearance (Chem N/A [facility] Platelet mean volume Auto (B ld) [Entitic vol]Ordered By: Adin Gan on 06-04-2022 Platelet mean volume (Bld) [Entitic vol] 11.1 fL 6.3-10.7 [facility] Platelets [#/volume] in Bloo d by Automated countOrdered By: Adin Gan on 06-04-2022 Platelets (Bld) [#/Vol] 196 10*3/uL Normal 150-450 10*3/uL [facility] Potassium [Moles/volume] in Serum or PlasmaOrdered By: Adin Gan on 06-04-2022 Potassium [Moles/Vol] 4.1 mmol/L 3.5-5.1 [facility] Protein [Mass/volume] in Ser um or PlasmaOrdered By: Adin Gan on 06-04-2022 Protein [Mass/Vol] 7.9 g/dL 6.4-8.9 [facility] Serum or plasma albumin/glob ulin mass ratioOrdered By: Adin Gan on 06-04-2022 Albumin/Globulin [Mass ratio] 1.6 {ratio} [facility] Serum or plasma anion gap de terminationOrdered By: Adin Gan on 06-04-2022 Anion gap [Moles/Vol] 12.9 mmol/L 6.0-15.0 [facility] Sodium [Moles/volume] in Ser um or PlasmaOrdered By: Adin Gan on 06-04-2022 Sodium [Moles/Vol] 140 mmol/L Normal 136-145 mmol/L [facility] Thyroid Stim Hormone w/Rflxo n 06-04-2022 Thyroid Stim Hormone w/Rflx 0.93 u[iU]/mL Normal 0.45-5.33 u[iU]/mL [employer] Other Thyrotropin [Units/volume] i n Serum or PlasmaOrdered By: Adin Gan on 06-04-2022 TSH Qn 0.93 m[IU]/L 0.45-5.33 [facility] Urea nitrogen [Mass/volume] in Serum or PlasmaOrdered By: Adin Gan on 06-04-2022 Urea nitrogen [Mass/Vol] 15 mg/dL Normal 7-25 mg/dL [facility] PAP ACOG PANEL 2: 21 to 29on 02-24-2022 . . Normal [facility] Comment on above: Performed By: #### [id number] #### [facility] [address] [place] [address] [address] Lilia Calvillo Age Gdln ACOG Testing - [facility] Comment on above: Performed By: #### [id number] #### [facility] [address] [place] [address] [address] Lilia Calvillo DIAGNOSIS: Comment [facility] Comment on above: Result Comment: NEGA TIVE FOR INTRAEPITHELIAL LESION OR MALIGNANCY. Performed By: #### [id number] #### [facility] [address] [place] [address] Dr. Lilia Calvillo Methodology: Comment [facility] Comment on above: Result Comment: This liquid based ThinPrep(R) pap test was screened with the use of an image guided system. Performed By: #### [id number] #### [facility] [address] [place] [address] Dr. Lilia Calvillo Note: Comment [facility] Comment on above: Result Comment: The Pap smear is a screening test designed to aid in the detection of premalignant and malignant conditions of the uterine cervix. It is not a diagnostic procedure and should not be used as the sole means of detecting cervical cancer. Both false-positive and false-negative reports do occur. . Performed By: #### [id number] #### [facility] [address] [place] [address] [address] Lilia Calvillo Performed by: Comment [facility] Comment on above: Result Comment: Philippe Garcia Food Counselor (ASCP) Performed By: #### [id number] #### [facility] [address] [place] [address] Dr. Lilia Calvillo Reflex Criteria: Comment [facility] Comment on above: Result Comment: The HPV DNA reflex criteria were not met with this specimen result therefore, no HPV testing was performed. . Performed By: #### [id number] #### [facility] [address] [place] [address] Dr. Lilia Calvillo Specimen adequacy: Comment Normal [facility] Comment on above: Result Comment: Sati sfactory for evaluation. No endocervical component is identified. Performed By: #### [id number] #### [facility] [address] [place] [address] Dr. Lilia Calvillo CBC AUTO DIFFon 10-17-2021 BASO # 0.0 103/ul Normal 0.0-0.[address] [facility] Comment on above: Performed By: #### C BC #### [facility] [address] [place] [address] Dr. Lilia Calvillo Basophils/100 WBC (Bld) 0.4 % Normal 0.2-2.[address] [facility] Comment on above: Performed By: #### C BC #### [facility] [address] [place] [address] Dr. Lilia Calvillo EO # 0.2 103/ul Normal 0.0-0.[address] [facility] Comment on above: Performed By: #### C BC #### [facility] [address] [place] [address] Dr. Lilia Calvillo Eosinophils/100 WBC (Bld) 2.1 % Normal 0.9-7.[address] [facility] Comment on above: Performed By: #### C BC #### [facility] [address] [place] [address] Dr. Lilia Calvillo Erythrocyte distribution width (RBC) [Ratio] 14.4 % Normal 11.0-15.[address] [facility] Comment on above: Performed By: #### C BC #### [facility] [address] [place] [address] Dr. Lilia Calvillo Hematocrit (Bld) [Volume fraction] 27.2 % Critically low 36.0-48.[address] [facility] Comment on above: Performed By: #### C BC #### [facility] [address] [place] [address] Dr. Lilia Calvillo Hemoglobin (Bld) [Mass/Vol] 9.0 g/dL Critically low 12.0-16.[address] [facility] Comment on above: Performed By: #### C BC #### [facility] [address] [place] [address] Dr. Lilia Calvillo IG # 0.03 10e3/ul Normal 0.00-0.[address] [facility] Comment on above: Performed By: #### C BC #### [facility] [address] [place] [address] Dr. Lilia Calvillo IG % 0.4 % Normal 0.0-0.[address] [facility] Comment on above: Performed By: #### C BC #### [facility] [address] [place] [address] Dr. Lilia Calvillo LYMPH # 1.6 103/ul Normal 1.2-3.[address] [facility] Comment on above: Performed By: #### C BC #### [facility] [address] [place] [address] Dr. Lilia Calvillo Lymphocytes/100 WBC (Bld) 20.2 % Critically low 20.5-60.[address] [facility] Comment on above: Performed By: #### C BC #### [facility] [address] [place] [address] Dr. Lilia Calvillo MANUAL DIFF REQ NO Normal [facility] Comment on above: Performed By: #### C BC #### [facility] [address] [place] [address] Dr. Lilia Calvillo MCH (RBC) [Entitic mass] 29.3 pg Normal 26.7-34.[address] [facility] Comment on above: Performed By: #### C BC #### [facility] [address] [place] [address] Dr. Lilia Calvillo MCHC (RBC) [Mass/Vol] 33.1 g/dL Normal 29.9-35.[address] [facility] Comment on above: Performed By: #### C BC #### [facility] [address] [place] [address] Dr. Lilia Calvillo MCV (RBC) [Entitic vol] 88.6 fL Normal 81.0-99.[address] [facility] Comment on above: Performed By: #### C BC #### [facility] [address] [place] [address] Dr. Lilia Calvillo MONO # 0.5 103/ul Normal 0.3-0.[address] [facility] Comment on above: Performed By: #### C BC #### [facility] [address] [place] [address] Dr. Lilia Calvillo Monocytes/100 WBC (Bld) 5.7 % Normal 1.7-12.[address] [facility] Comment on above: Performed By: #### C BC #### [facility] [address] [place] [address] Dr. Lilia Calvillo NEUT # 5.8 103/ul Normal 1.4-6.[address] [facility] Comment on above: Performed By: #### C BC #### [facility] [address] [place] [address] Dr. Lilia Calvillo Neutrophils/100 WBC (Bld) 71.2 % Normal 43.0-75.[address] [facility] Comment on above: Performed By: #### C BC #### [facility] [address] [place] [address] Dr. Lilia Calvillo Platelet mean volume (Bld) [Entitic vol] 13.1 fL Normal 9.5-13.5 [facility] Comment on above: Performed By: #### C BC #### [facility] [address] [place] [address] Dr. Lilia Calvillo PLT 109 103/ul Critically low 150-450 [facility] Comment on above: Performed By: #### C BC #### [facility] [address] [place] [address] Dr. Lilia Calvillo RBC 3.07 106/ul Critically low 4.20-5.40 [facility] Comment on above: Performed By: #### C BC #### [facility] [address] [place] [address] Dr. Lilia Calvillo WBC 8.1 103/ul Normal 4.0-11.0 [facility] Comment on above: Performed By: #### C BC #### [facility] [address] [place] [address] Dr. Lilia Calvillo CBC AUTO DIFFon 10-16-2021 BASO # 0.0 103/ul Normal 0.0-0.[address] [facility] Comment on above: Performed By: #### G TT3P #### [facility] [address] [place] [address] Dr. Lilia Calvillo Basophils/100 WBC (Bld) 0.2 % Normal 0.2-2.[address] [facility] Comment on above: Performed By: #### G TT3P #### [facility] [address] [place] [address] Dr. Lilia Calvillo EO # 0.1 103/ul Normal 0.0-0.[address] [facility] Comment on above: Performed By: #### G TT3P #### [facility] [address] [place] [address] Dr. Lilia Calvillo Eosinophils/100 WBC (Bld) 0.6 % Critically low 0.9-7.[address] [facility] Comment on above: Performed By: #### G TT3P #### [facility] [address] [place] [address] Dr. Lilia Calvillo Erythrocyte distribution width (RBC) [Ratio] 14.5 % Normal 11.0-15.[address] [facility] Comment on above: Performed By: #### G TT3P #### [facility] [address] [place] [address] Dr. Lilia Calvillo Hematocrit (Bld) [Volume fraction] 36.2 % Normal 36.0-48.[address] [facility] Comment on above: Performed By: #### G TT3P #### [facility] [address] [place] [address] Dr. Lilia Calvillo Hemoglobin (Bld) [Mass/Vol] 11.8 g/dL Critically low 12.0-16.[address] [facility] Comment on above: Performed By: #### G TT3P #### [facility] [address] [place] [address] Dr. Lilia Calvillo IG # 0.05 10e3/ul Critically high 0.00-0.03 [place] Comment on above: Performed By: #### G TT3P #### [facility] [address] [place] [address] Dr. Lilia Calvillo IG % 0.5 % Normal 0.0-0.[address] [facility] Comment on above: Performed By: #### G TT3P #### [facility] [address] [place] [address] Dr. Lilia Calvillo LYMPH # 2.0 103/ul Normal 1.2-3.[address] [facility] Comment on above: Performed By: #### G TT3P #### [facility] [address] [place] [address] Dr. Lilia Calvillo Lymphocytes/100 WBC (Bld) 20.7 % Normal 20.5-60.[address] [facility] Comment on above: Performed By: #### G TT3P #### [facility] [address] [place] [address] Dr. Lilia Calvillo MANUAL DIFF REQ NO Normal [facility] Comment on above: Performed By: #### G TT3P #### [facility] [address] [place] [address] Dr. Lilia Calvillo MCH (RBC) [Entitic mass] 28.7 pg Normal 26.7-34.[address] [facility] Comment on above: Performed By: #### G TT3P #### [facility] [address] [place] [address] Dr. Lilia Calvillo MCHC (RBC) [Mass/Vol] 32.6 g/dL Normal 29.9-35.[address] [facility] Comment on above: Performed By: #### G TT3P #### [facility] [address] [place] [address] Dr. Lilia Calvillo MCV (RBC) [Entitic vol] 88.1 fL Normal 81.0-99.[address] [facility] Comment on above: Performed By: #### G TT3P #### [facility] [address] [place] [address] Dr. Lilia Calvillo MONO # 0.5 103/ul Normal 0.3-0.[address] [facility] Comment on above: Performed By: #### G TT3P #### [facility] [address] [place] [address] Dr. Lilia Calvillo Monocytes/100 WBC (Bld) 5.7 % Normal 1.7-12.[address] [facility] Comment on above: Performed By: #### G TT3P #### [facility] [address] [place] [address] Dr. Lilia Calvillo NEUT # 6.8 103/ul Critically high 1.4-6.5 [facility] Comment on above: Performed By: #### G TT3P #### [facility] [address] [place] [address] Dr. Lilia Calvillo Neutrophils/100 WBC (Bld) 72.3 % Normal 43.0-75.[address] [facility] Comment on above: Performed By: #### G TT3P #### [facility] [address] [place] [address] Dr. Lilia Calvillo Platelet mean volume (Bld) [Entitic vol] 13.2 fL Normal 9.5-13.5 [facility] Comment on above: Performed By: #### G TT3P #### [facility] [address] [place] [address] Dr. Lilia Calvillo PLT 130 103/ul Critically low 150-450 [facility] Comment on above: Performed By: #### G TT3P #### [facility] [address] [place] [address] Dr. Lilia Calvillo RBC 4.11 106/ul Critically low 4.20-5.40 [facility] Comment on above: Performed By: #### G TT3P #### [facility] [address] [place] [address] Dr. Lilia Calvillo WBC 9.5 103/ul Normal 4.0-11.0 [facility] Comment on above: Performed By: #### G TT3P #### [facility] [address] [place] [address] Dr. Lilia Calvillo DRUG SCREEN RAPID (URINE)on 10-16-2021 AMP Negative Normal NEGATIVE [facility] Comment on above: Performed By: #### G TT3P #### [facility] [address] [place] [address] Dr. Lilia Calvillo BAR Negative Normal NEGATIVE [facility] Comment on above: Performed By: #### G TT3P #### [facility] [address] [place] [address] Dr. Lilia Calvillo BUP Negative Normal NEGATIVE [facility] Comment on above: Performed By: #### G TT3P #### [facility] [address] [place] [address] Dr. Lilia Calvillo BZO Negative Normal NEGATIVE [facility] Comment on above: Performed By: #### G TT3P #### [facility] [address] [place] [address] Dr. Lilia Calvillo LAWANDA Negative Normal NEGATIVE [facility] Comment on above: Performed By: #### G TT3P #### [facility] [address] [place] [address] Dr. Lliia Calvillo CUT-OFFS SEE BELOW Normal [facility] Comment on above: Result Comment: AMP [...] ng/mL Performed By: #### G TT3P #### [facility] [address] [place] [address] Dr. Lilia Calvillo DRUG CUT HEADER DRUG CLASS TEST SYST EM CUT-OFF CONCENTRATIONS ARE FOLLOWS: Normal [facility] Comment on above: Performed By: #### G TT3P #### [facility] [address] [place] [address] Dr. Lilia Calvillo mAMP Negative Normal NEGATIVE [facility] Comment on above: Performed By: #### G TT3P #### [facility] Laboratory [address] [place] [address] Dr. Lilia Calvillo MTD Negative Normal NEGATIVE [facility] Comment on above: Performed By: #### G TT3P #### [facility] [address] [place] [address] Dr. Lilia Calvillo OPI Negative Normal NEGATIVE [facility] Comment on above: Performed By: #### G TT3P #### [facility] [address] [place] [address] Dr. Lilia Calvillo OXY Negative Normal NEGATIVE [facility] Comment on above: Performed By: #### G TT3P #### [facility] [address] [place] [address] Dr. Lilia Calvillo PCP Negative Normal NEGATIVE [facility] Comment on above: Performed By: #### G TT3P #### [facility] [address] [place] [address] Dr. Lilia Calvillo PPX Negative Normal NEGATIVE [facility] Comment on above: Performed By: #### G TT3P #### [facility] [address] [place] [address] Dr. Lilia Calvillo TCA Negative Normal NEGATIVE [facility] Comment on above: Performed By: #### G TT3P #### [facility] [address] [place] [address] Dr. Lilia Calvillo THC Negative Normal NEGATIVE [facility] Comment on above: Performed By: #### G TT3P #### [facility] [address] [place] [address] Dr. Lilia Calvillo TYPE AND SCREENon 10-16-2021 TYPE AND SCREEN Negative Normal [facility] Comment on above: Performed By: #### G TT3P #### [facility] [address] [place] [address] Dr. Lilia Calvillo UA (CLEAN/CATCH) FUEL CELL REPAIRER/MICRO I F IND.on 10-16-2021 Bilirubin Ql (U) Negative Normal NEGATIVE [facility] Comment on above: Performed By: #### U ACSIND #### [facility] [address] [address] [address] Lilia Calvillo Clarity (U) CLEAR Normal CLEAR [facility] Comment on above: Performed By: #### U ACSIND #### [facility] [address] [address] [address] Lilia Calvillo Color (U) LT. YELLOW Normal YELLOW [facility] Comment on above: Performed By: #### U ACSIND #### [facility] [address] [address] [address] Lilia Calvillo Glucose Ql (U) Negative Normal NEGATIVE [facility] Comment on above: Performed By: #### U ACSIND #### [facility] [address] [place] [address] Dr. Lilia Calvillo Hemoglobin Ql (U) Negative Normal NEGATIVE [place] Comment on above: Performed By: #### U ACSIND #### [facility] [address] [place] [address] Dr. Lilia Calvillo Ketones Ql (U) Negative Normal NEGATIVE [facility] Comment on above: Performed By: #### U ACSIND #### [facility] [address] [address] [address] Lilia Calvillo LEUKOCYTES Negative Normal NEGATIVE [facility] Comment on above: Performed By: #### U ACSIND #### [facility] [address] [place] [address] Dr. Lilia Calvillo Nitrite Ql (U) Negative Normal NEGATIVE [facility] Comment on above: Performed By: #### U ACSIND #### [facility] [address] [place] [address] Dr. Lilia Calvillo pH (U) 6.5 [pH] Normal 5-[address] [facility] Comment on above: Performed By: #### U ACSIND #### [facility] [address] [place] [address] Dr. Lilia Calvillo SPEC GRAVITY 1.020 Normal 1.005-<=1. [address] [facility] Comment on above: Performed By: #### U ACSIND #### [facility] [address] [place] [address] Dr. Lilia Calvillo UA PROTEIN Negative Normal NEGATIVE/ TRACE [facility] Comment on above: Performed By: #### U ACSIND #### [facility] [address] [place] [address] Dr. Lilia Calvillo UR MICRO IND NOT INDICATED Normal [facility] Comment on above: Performed By: #### U ACSIND #### [facility] [address] [place] [address] Dr. Lilia Calvillo Urobilinogen Qn (U) 0.2 {Ann'U}/dL Normal 0.2 - 1. [address] [facility] Comment on above: Performed By: #### U ACSIND #### [facility] [address] [place] [address] Dr. Lilia Calvillo Covid-19 PCR ([facility])on 09-20 SARS-CoV-2 (COVID-19) RNA TORRES+probe Ql (Unsp spec) Not detected Normal NOT DETECTED [facility] Comment on above: Result Comment: This test is not yet approved or cleared by the [place] FDA. When there are no FDA-approved or cleared tests available, and other criteria are met, FDA can make tests available under an emergency access mechanism called an Emergency Use Authorization (EUA). The EUA for this test is supported by the Emergency Management Coordinator of Health and Human Service's (HHS's) declaration [...] SARS-CoV-2. Performed By: #### G TT3P #### [facility] [address] [place] [address] Dr. Lilia Calvillo CHLAMYDIA/GONOCOCCUS TORRES (SW AB/URINE/PAPon 09-27-2021 Chlamydia trachomatis, TORRES Negative Normal Negative [facility] Comment on above: Performed By: #### C T/NGNA #### [facility] [address] [address] [address] Lilia Calvillo Neisseria gonorrhoeae, OTRRES Negative Normal Negative [facility] Comment on above: Performed By: #### C T/NGNA #### [facility] [address] [place] [address] Dr. Lilia Calvillo GROUP B STREP CULTUREon 07-0 S. agalactiae Ag Ql (Unsp spec) Culture Observations: NEGATIVE FOR GROUP B STREPTOCOCCUS. Normal [facility] Comment on above: Performed By: #### G TT3P #### [facility] [address] [place] [address] Dr. Lilia Calvillo GTT 3 HR PREGon 07-21-2021 Glucose [Mass/Vol] 92 mg/dL Normal 74-106 [facility] Comment on above: Performed By: #### G TT3P #### [facility] [address] [place] [address] Dr. Lilia Calvillo Glucose [Mass/Vol] 193 mg/dL Normal [facility] Comment on above: Performed By: #### G TT3P #### [facility] [address] [place] [address] Dr. Lilia Calvillo Glucose [Mass/Vol] 146 mg/dL Normal [facility] Comment on above: Performed By: #### G TT3P #### [facility] [address] [address] [address] Lilia Calvillo Glucose [Mass/Vol] 123 mg/dL Normal [facility] Comment on above: Performed By: #### G TT3P #### [facility] [address] [place] [address] Dr. Lilia Calvillo GLUCOSE - 1HRon 07-09-2021 Glucose [Mass/Vol] 167 mg/dL Critically high 74-106 [facility] Comment on above: Performed By: #### G LU1HR #### [facility] [address] [place] [address] Dr. Lilia Calvillo HEMOGRAM AND PLATELon 04-20- 2022 Hematocrit (Bld) [Volume fraction] 33.9 % Critically low 36.0-48.[address] [facility] Comment on above: Performed By: #### H H #### [facility] [address] [place] [address] Dr. Lilia Calvillo Hemoglobin (Bld) [Mass/Vol] 10.9 g/dL Critically low 12.0-16.[address] [facility] Comment on above: Performed By: #### H H #### [facility] [address] [place] [address] Dr. Lilia Calvillo MCH (RBC) [Entitic mass] 29.9 pg Normal 26.7-34.[address] [facility] Comment on above: Performed By: #### H H #### [facility] [address] [place] [address] Dr. Lilia Calvillo MCHC (RBC) [Mass/Vol] 32.2 g/dL Normal 29.9-35.[address] [facility] Comment on above: Performed By: #### H H #### [facility] [address] [place] [address] Dr. Lilia Calvillo MCV (RBC) [Entitic vol] 93.1 fL Normal 81.0-99.0 [facility] Comment on above: Performed By: #### H H #### [facility] [address] [place] [address] Dr. Lilia Calvillo PLT 153 103/ul Normal 150-450 [facility] Comment on above: Performed By: #### H H #### [facility] [address] [place] [address] Dr. Lilia Calvillo RBC 3.64 106/ul Critically low 4.20-5.40 [facility] Comment on above: Performed By: #### H H #### [facility] [address] [place] [address] Dr. Lilia Calvillo WBC 8.4 103/ul Normal 4.0-11.0 [facility] Comment on above: Performed By: #### H H #### [facility] [address] [place] [address] Dr. Lilia Calvillo US PREG ANATOMY SINGLEon [...] by ultrasound, 40% by expected EDC; FL/AC: [id number] FL/BPD: 0.522600 HC/AC: 1.732269 GESTATIONAL AGE: Age by EDC: 20 weeks 0 days ALINA by EDC: 10/23/2021 Age by current US: 19 weeks 4 days ALINA by current US: 10/26/2021 IMPRESSION: Normal anatomy scan *Reference: [employer]UM Practice Guideline for the performance of Obstetric Ultrasound Examinations, December 20, 2006. Electronically authenticated by: DESTINY BAILEY Date: 2021-06-05 16:17 Normal [facility] AFP MATERNAL FOR SPINA BIFID Aon 05-30-2021 AFP MoM 1.[address] [facility] Comment on above: Performed By: #### A FPMAT #### [facility] [address] [address] [address] Lilia Calvillo AFP Value 63.0 ng/mL Normal [facility] Comment on above: Performed By: #### A FPMAT #### [facility] [address] [address] [address] Lilia Calvillo AFP, Serum for Spina Bifida Report Normal [facility] Comment on above: Performed By: #### A FPMAT #### [facility] [address] [address] [address] Lilia Calvillo Comment Comment Normal [facility] Comment on above: Result Comment: Hamlet Sinclair, Ph.D., [facility] Director . References: Available Upon Request. . Multiples Of Median Cutoffs For AFP Elevations Sandoval 2.5 Black 2.8 IDD 2.0 Twins 4.5 Abbreviation Definitions IDD - Insulin Dep Diabetes OSBR - Open Spina Bifida Risk . For further inquiries contact [employer] at [phone]. Performed By: #### A FPMAT #### [facility] [address] [address] [address] Lilia Calvillo Gest Age Collection Date 18.9 weeks Normal [facility] Comment on above: Performed By: #### A FPMAT #### [facility] [address] [address] [address] Lilia Calvillo Gestat, Age Based on Ultrasound Normal [facility] Comment on above: Result Comment: 18.9 on 05/28/2021 Recalculations are not recommended when gestational dating by LMP and ultrasound are within 10 days. Performed By: #### A FPMAT #### [facility] [address] [place] [address] Dr. Lilia Calvillo Insulin Dep Diabetes No Normal [facility] Comment on above: Performed By: #### A FPMAT #### [facility] [address] [place] [address] Dr. Lilia Calvillo Interpretation Comment Normal [facility] Comment on above: Result Comment: Inte [...] Customer Services to discuss available options. The [employer] recommends amniocentesis be offered to women age 35 and older. Performed By: #### A FPMAT #### [facility] [address] [place] [address] Dr. Lilia Calvillo [age] Normal [facility] Comment on above: Performed By: #### A FPMAT #### [facility] [address] [place], [place] [id number] Dr. Lilia Calvillo Multiple Gestation No Normal [facility] Comment on above: Performed By: #### A FPMAT #### [facility] [address] [place] [address] Dr. Lilia Calvillo OSBR Risk 1 [place] [address] [facility] Comment on above: Performed By: #### A FPMAT #### [facility] [address] [place] [address] Dr. Lilia Calvillo PDF . [facility] Comment on above: Result Comment: This test was developed and its performance characteristics determined by [employer]. It has not been cleared or approved by the Food and Drug Administration. Performed By: #### A FPMAT #### [facility] [address] [place] [address] Dr. Lilia Calvillo [employer] [facility] Comment on above: Performed By: #### A FPMAT #### [facility] [address] [place] [address] Dr. Lilia Calvillo Test Results: Negative [facility] Comment on above: Performed By: #### A FPMAT #### [facility] [address] [place] [address] Dr. Lilia Calvillo Q - CULTURE,URINE,ROUTINEon 05-21-2021 CULTURE, URINE, ROUTINE SEE NOTE Normal [facility] [employer] Comment on above: Order Comment: [facility] performed at: [facility] [address], [address] [place] [address], [address] [place] [address], [place], [id number], [employer] G[employer]er: Wilber Wilson MD [facility] Collection Date/Time: [id number] [facility] Results Received Date/Time: [facility] Reported Date/Time: Result Comment: CULT URE, URINE, ROUTINE Micro Number: [id number] Test Status: Final Specimen Source: Urine Specimen Quality: Adequate Result: Mixed genital yair isolated. These superficial bacteria are not indicative of a urinary tract infection. No further organism identification is warranted on this specimen. If clinically indicated, recollect clean-catch, mid-stream urine and transfer immediately to Urine Culture Transport Tube. Performed By: #### 3 020X, 6304R, %SBCULI #### [facility] Default [address] [place] [address] Q - UR CULT [id number] 2021 REFLEXIVE URINE CULTURE SEE NOTE Normal [facility] [employer] Comment on above: Order Comment: [facility] performed at: [employer] [facility] [address], [address] [place] [address], [address] [place] [address], [phone], [employer]er: Wilber Wilson MD [facility] Collection Date/Time: [facility] Results Received Date/Time: [facility] Reported Date/Time: Result Comment: CULT URE INDICATED - RESULTS TO FOLLOW Performed By: #### 3 020X, 6304R, %SBCULI #### [facility] Default [address] [place] [address] Q - URINALYSIS,COMPLETE,WITH REFLEX TO CULTUREon 05-21-2021 Appearance (U) TURBID Abnormal CLEAR [facility] [employer] Comment on above: Order Comment: [facility] performed at: [employer] [facility] [address], [facility], [address] [place] [address], [phone], [employer]er: Wilber Wilson MD [facility] Collection Date/Time: [facility] Results Received Date/Time: [facility] Reported Date/Time: Performed By: #### 3 020X, 6304R, %SBCULI #### [facility] Default [address] [place] [address] BACTERIA MODERATE Abnormal NONE SEEN [facility] [employer] Comment on above: Order Comment: [facility] performed at: [employer] [facility] [address], [address], [address] [place] [address], [address] [place] [address], [employer]er: Wilber Wilson MD [facility] Collection Date/Time: [facility] Results Received Date/Time: [facility] Reported Date/Time: Performed By: #### 3 020X, 6304R, %SBCULI #### [facility] Default [address] [place] [address] Bilirubin Ql (U) Negative Normal NEGATIVE [facility] [employer] Comment on above: Order Comment: [facility] performed at: [employer] [facility] [address], [address] , [address] [place] [address], [address] [place] [address], [employer]er: Wilber Wilson MD [facility] Collection Date/Time: [facility] Results Received Date/Time: [facility] Reported Date/Time: Performed By: #### 3 020X, 6304R, %SBCULI #### [facility] Default [address] [place] [address] Color (U) YELLOW Normal YELLOW [facility] [employer] [facility] Comment on above: Order Comment: [facility] performed at: [employer] [facility] [address], [address] , [address] [place] [address], [address] [place] [address], [employer]er: Wilber Wilson MD [facility] Collection Date/Time: [facility] Results Received Date/Time: [facility] Reported Date/Time: Performed By: #### 3 020X, 6304R, %SBCULI #### [facility] Default [address] [place] [address] Glucose Ql (U) Negative Normal NEGATIVE [facility] [employer] Comment on above: Order Comment: [facility] performed at: [employer] [facility] [address], [address], [address] [place] [address], [address] [place] [address], [employer]er: Wilber Wilson MD [facility] Collection Date/Time: [facility] Results Received Date/Time: [facility] Reported Date/Time: Performed By: #### 3 020X, 6304R, %SBCULI #### [facility] Default [address] [place] [address] HYALINE CAST NONE SEEN Normal NONE SEEN [facility] [employer] Comment on above: Order Comment: [facility] performed at: [employer] [facility] [address], [address] , [address] [place] [address], [address] [place] [address], [employer]er: Wilber Wilson MD [facility] Collection Date/Time: [facility] Results Received Date/Time: [facility] Reported Date/Time: Performed By: #### 3 020X, 6304R, %SBCULI #### [facility] Default [address] [place] [address] Ketones Ql (U) TRACE Abnormal NEGATIVE [facility] [employer] Comment on above: Order Comment: [facility] performed at: [employer] [facility] [address], [address] , [address] [place] [address], [address] [place] [address], [employer] G[employer]er: Wilber Wilson MD [facility] Collection Date/Time: [facility] Results Received Date/Time: [facility] Reported Date/Time: Performed By: #### 3 020X, 6304R, %SBCULI #### [facility] Default [address] [place] [address] Leukocyte esterase Test strip Ql (U) 2+ Abnormal NEGATIVE [facility] Comment on above: Order Comment: [facility] performed at: [employer] [facility] [address], [address] , [address] [place] [address], [address] [place] [address], [employer]er: Wilber Wilson MD [facility] Collection Date/Time: [facility] Results Received Date/Time: [facility] Reported Date/Time: Performed By: #### 3 020X, 6304R, %SBCULI #### [facility] Default [address] [place] [address] Nitrite Ql (U) Negative Normal NEGATIVE [facility] [employer] Comment on above: Order Comment: [facility] performed at: [employer] [facility] [address], [address] [facility], [address] [place] [address], [address] [place] [address], [employer]er: Wilber Wilson MD [facility] Collection Date/Time: [facility] Results Received Date/Time: [facility] Reported Date/Time: Performed By: #### 3 020X, 6304R, %SBCULI #### [facility] Default [address] [place] [address] OCCULT BLOOD Negative Normal NEGATIVE [facility] [employer] Comment on above: Order Comment: [facility] performed at: [employer] [facility] [address], [address] [facility], [address] [place] [address], [address] [place] [address], [employer]er: Wilber Wilson MD [facility] Collection Date/Time: [facility] Results Received Date/Time: [facility] Reported Date/Time: Performed By: #### 3 020X, 6304R, %SBCULI #### [facility] Default [address] [place] [address] pH (U) 5.5 [pH] Normal 5.0-8.0 [facility] [employer] [facility] Comment on above: Order Comment: [facility] performed at: [employer] [facility] [address], [address] [place] [address], [address] [place] [address], [phone], [employer] G[employer]er: Wilber Wilson MD [facility] Collection Date/Time: [facility] Results Received Date/Time: [facility] Reported Date/Time: Performed By: #### 3 020X, 6304R, %SBCULI #### [facility] Default [address] [place] [address] Protein Ql (U) Negative Normal NEGATIVE [facility] [employer] Comment on above: Order Comment: [facility] performed at: [employer] [facility] [address], [address] [facility], [address] [place] [address], [address] [place] [address], [employer]er: Wilber Wilson MD [facility] Collection Date/Time: [facility] Results Received Date/Time: [facility] Reported Date/Time: Performed By: #### 3 020X, 6304R, %SBCULI #### [facility] Default [address] [place] [address] RBC NONE SEEN Normal < OR = 2 [facility] [employer] [facility] Comment on above: Order Comment: [facility] performed at: [employer] [facility] [address], [address] [facility], [address] [place] [address], [address] [place] [address], [employer] G[employer]er: Wilber Wilson MD [facility] Date/Time: [facility] Results Received Date/Time: [facility] Reported Date/Time: Performed By: #### 3 020X, 6304R, %SBCULI #### [facility] Default [address] [place] [address] Specific gravity (U) [Rel density] 1.029 Normal 1.001-1.03 5 [facility] [employer] Comment on above: Order Comment: [facility] performed at: [employer] [facility] [address], [address] [place] [address], [address] [place] [address], [address] [place] [address], [employer] G[employer]er: Wilber Wilson MD [facility] Collection Date/Time: [facility] Results Received Date/Time: [facility] Reported Date/Time: Performed By: #### 3 020X, 6304R, %SBCULI #### [facility] Default [address] [place] [address] SQUAMOUS EPITHELIAL CELLS 10-20 Abnormal < OR = 5 [facility] [employer] [facility] Comment on above: Order Comment: [facility] performed at: [employer] [facility] [address], [address] , [address] [place] [address], [address] [place] [address], [employer] G[employer]er: Wilber Wilson MD [facility] Collection Date/Time: [facility] Results Received Date/Time: [facility] Reported Date/Time: Performed By: #### 3 020X, 6304R, %SBCULI #### [facility] Default [address] [place] [address] WBC 20-40 Abnormal < OR = 5 [facility] [employer] [facility] Comment on above: Order Comment: [facility] performed at: [facility] [address], [address] [facility], [address] [facility], [place], [address], Zinc Plate Grainer: Wilber Wilson MD [facility] Collection Date/Time: [facility] Results Received Date/Time: [facility] Reported Date/Time: Performed By: #### 3 020X, 6304R, %SBCULI #### [facility] Default [address] [place] [address] US PREG LIMITEDon 05-09-2021 US PREG LIMITED [...] BAILEY OTERO Date: 2021-05-09 10:39 Normal [facility] HEPATITIS C VIRUS AB W/ REFL EX QUANTon 04-08-2021 HCV AB >11.0 Critically high 0.0-0.9 [facility] Comment on above: Result Comment: . Performed By: #### H CVPCRR #### [facility] [address] [address] [address] Lilia Calvillo HCV log10 Normal [facility] Comment on above: Performed By: #### H CVPCRR #### [facility] [address] [address] [address] Lilia Calvillo Hep C Quantitation Not detected Normal [facility] Comment on above: Performed By: #### H CVPCRR #### [facility] [address] [address] [address] Lilia Calvillo Interpretation Comment Normal [facility] Comment on above: Result Comment: Posi tive HCV antibody screen without the presence of HCV RNA is consistent with a resolved past infection or a false positive HCV antibody. Consider repeat testing after one month. Performed By: #### H CVPCRR #### [facility] [address] [address] [address] Lilia Calvillo Test Information: Comment Normal [place] Comment on above: Result Comment: The quantitative range of this assay is 15 IU/mL to 100 million IU/mL. Performed By: #### H CVPCRR #### [facility] [address] [address] [address] Lilia Calvillo RUBI BOX TEST PT SEND OUTo n 04-03-2021 SENT TO REF LAB 04/03/2021 Normal [facility] Comment on above: Performed By: #### G TT3P #### [facility] [address] [place] [address] Dr. Lilia Calvillo US PREG TVon 04-03-2021 [...] BAILEY OTERO Date: 2021-04-03 14:48 Normal [facility] Drug Screen Comprehensive Ur ineon 04-23-2017 Adulterants Negative Normal [facility] Comment on above: Result Comment: Adul [...] was developed and the performance characteristicsdetermined by [facility]. Thisconfirmation testing has not been cleared or approvedby the FDA. The laboratory is regulated under CLIA asqualified to perform high-complexity testing. This testis used for patient testing purposes. It should not beregarded as investigational or for research.Test performed at [facility],[address] [place] [address] Enzbbrm G. Finn, MD - Geotechnical Intern Performed By: #### 6 9742-5, 15251-3, 03452-4, 59671-7, 60388-7, 66345-0, 46527-9, 80649-0 ####[facility] [address], [place]#### [address]-1, 32677-3 ####[facility], [address] [place], [place] Creatinine Urine - Toxicology 48 mg/dL Normal [facility] Comment on above: Performed By: #### 6 9742-5, 53672-3, 08529-7, 70222-8, 99827- 4, 04440-5, 51910-9, 90989-0 ####[facility] [address], [place]#### [address]-5, [address]67-8 ####[facility], [address], [place] Drug Scr Urine SeeBelow Normal [facility] Comment on above: Result Comment: Drug s Detected in Urine: THC Cotinine Caffeine All drugs identified should be considered presumptive positives unless they have been identified by an alternate chemical method. These drugs have been qualitatively identified by either or both immunoassay or gas chromatography/mass spectrometry (GC/MS) Performed By: #### 6 9742-5, 63214-7, 10657-3, 72563-9, 07475-9, 96794-9, 40360-8, 29808-5 ####[facility] [address], [place]#### [address]48[address]-2, 02030-5 ####[facility], [address], [place] Hepatitis C RNA (PCR) Quanti tativeon 04-23-2017 Hepatitis C PCR Log IU/ml 3.34 see fn High <1.08 [facility] Comment on above: Result Comment: Unit s: Log (10) IU/mLThis procedure utilizes a real-time polymerase chainreaction test from [employer]. The amplificationtarget is a conserved region of [...] resultdoes not rule out infection.Test performed at [facility],[address] [place] [address] Uncrkup G. Finn, MD - Geotechnical Intern Performed By: #### 6 9742-5, 62753-0, 73352-1, 47513-6, 70794-4, 42575-0, 09362-2, 59379-3 ####[facility] [address], [place]#### 04207-2, 58004-3 ####[facility], [address] [place], [place] Hepatitis C RNA PCR seefn High <12 [facility] Comment on above: Result Comment: Resu lt: 2,182 Performed By: #### 6 9742-5, 52919-8, 92652-3, 04600-7, 06126-4, 96167-2, 93988-0, 77381-5 ####[facility] [address], [place]#### 34439-8, 53766-1 ####[facility], [facility] [place], [place] Hepatitis C Virus RNA Ql DETECTED Abnormal [facility] Comment on above: Result Comment: Ref Range: Not detected Performed By: #### 6 9742-5, 90360-7, 18235-2, 41954-3, 86220-6, 11326-2, 47648-3, 10676-9 ####[facility] [address], [place]#### 91475-1, 64763-5 ####[facility], [address] [place], [place] Hepatitis A Antibody Totalon 04-22-2017 Hepatitis A Antibody Negative Normal Negative [facility] Comment on above: Result Comment: Test performed at [facility],[address] [place] [address] Sucnxdv G. Finn, MD - Geotechnical Intern Performed By: #### 6 9742-5, 76884-5, 63083-9, 89712-5, 66973-1, 31965-2, 88636-1, 22301-0 ####[facility] [address] [place], [place]#### 55229-4, 41716-6 ####[facility], [address], [place] Hepatitis B Core Antibody Ig Mon 04-21-2017 Interpretation and review of laboratory results Negative Normal NEGATIVE [facility] Comment on above: Result Comment: Hepa [...] POS VACCINATION Performed By: #### 6 9742-5, 44834-6, 63066-2, 06269-0, 82597-5, 98138-2, 19545-6, 77226-5 ####[facility] [address] [place], [place]#### 37670-8, 15313-4 ####[facility], [address], [place] Hepatitis C Antibodyon 04-21 Hepatitis C Antibody Positive Abnormal NEGATIVE [facility] Comment on above: Result Comment: For [...] longer available. Performed By: #### 6 9742-5, 29013-6, 49980-9, 47570-1, 49788-3, 18957-7, 78448-5, 64264-0 ####[facility] [address], [place]#### 80195-9, 29871-9 ####[facility], [address] [place], [place] Hepatitis C Antibody Positive Abnormal NEGATIVE [facility] [place] Comment on above: Result Comment: For a [...] longer available. Performed By: #### 6 9742-5, 70918-3, 84122-4, 94456-9, 60647-8, 69805-2, 30005-0, 41045-0 ####[facility] [address] [place], [place]#### 17413-3, 76500-5 ####[facility], [address] [place], [place] CBC with Differentialon 03-24 Basophils Auto #/vol (Bld) 0.00 thou/mcL Normal 0.00-0.20 [facility] Comment on above: Performed By: #### 6 9742-5, 00829-0, 05516-7, 20003-0, 77412- 4, 56540-4, 23934-6, 39312-3 ####[facility] [address], [place]#### 10685-2, 30009-9 ####[facility], [facility] [place], [place] Basophils/100 WBC Auto (Bld) 0.2 % Normal 0.0-2.0 [facility] Comment on above: Performed By: #### 6 9742-5, 02765-1, 40107-5, 90878-6, 37504- 4, 65979-2, 00623-3, 74432-3 ####[facility] [address] [place], [place]#### 01449-9, 44767-9 ####[facility], [facility] [address] [place], [place] Eosinophils 0.10 thou/mcL Normal 0.00-0.70 [facility] Comment on above: Performed By: #### 6 9742-5, 20737-7, 61011-7, 26481-4, 39053- 4, 32945-5, 19107-7, 50147-9 ####[facility] [address] [place], [place]#### 25891-6, 85433-3 ####[facility], [facility] [address] [place], [place] Eosinophils/100 leukocytes 1.8 % Normal 0.0-7.0 [facility] Comment on above: Performed By: #### 6 9742-5, 98294-2, 26936-2, 85625-0, 31997- 4, 43845-8, 72658-2, 17662-4 ####[facility] [address] [place], [place]#### 25983-8, 92433-5 ####[facility], [facility] [address], [place] Erythrocyte distribution width Auto Ratio (RBC) 13.7 % Normal 11.0-14.8 [facility] Comment on above: Performed By: #### 6 9742-5, 30882-7, 95438-9, 53580-7, 83114- 4, 53778-9, 25067-9, 53167-0 ####[facility] [address] [place], [place]#### 27181-0, 38710-0 ####[facility], [facility] [address], [place] Erythrocytes (RBC) 4.15 million/mcL Normal 3.80-5.10 [facility] Comment on above: Performed By: #### 6 9742-5, 38689-3, 06833-7, 55725-8, 04724- 4, 76056-1, 45347-5, 96455-1 ####[facility] [address] [place], [place]#### 52667-0, 28080-0 ####[facility], [address], [place] Hematocrit (HCT) 37.0 % Normal 35.0-45.0 [facility] Comment on above: Performed By: #### 6 9742-5, 54409-0, 25354-0, 43548-7, 76163- 4, 17795-5, 81425-3, 09447-6 ####[facility] [address] [place], [place]#### 65724-2, 19889-7 ####[facility], [address], [place] Hemoglobin mass conc (Bld) 12.2 g/dL Normal 12.0-16.0 [facility] Comment on above: Performed By: #### 6 9742-5, 42539-1, 96997-7, 71313-6, 11025- 4, 08985-2, 23614-2, 98263-2 ####[facility] [address], [place]#### 55298-9, 42752-5 ####[facility], [address], [place] Lymphocytes 1.80 thou/mcL Normal 1.00-4.80 [facility] Comment on above: Performed By: #### 6 9742-5, 65869-8, 88079-8, 21884-2, 43854- 4, 94100-8, 69875-3, 37352-8 ####[facility] [address], [place]#### 24733-4, 86726-9 ####[facility], [facility] [address], [place] Lymphocytes/100 leukocytes 34.6 % Normal 22.0-44.0 [facility] Comment on above: Performed By: #### 6 9742-5, 47657-5, 53979-0, 91105-7, 74281- 4, 23403-9, 90395-0, 35740-6 ####[facility] [address], [place]#### 50907-9, 82182-7 ####[facility], [address], [place] MCH 29.4 Picograms Normal 27.0-34.0 [facility] Comment on above: Performed By: #### 6 9742-5, 07067-5, 84101-1, 96073-4, 06636- 4, 04694-7, 41930-0, 09491-0 ####[facility] [address], [place]#### 68878-8, 30047-4 ####[facility], [address], [place] MCHC mass conc (RBC) 33.0 g/dL Normal 32.0-36.0 [facility] Comment on above: Performed By: #### 6 9742-5, 65683-0, 45574-0, 74745-0, 10518- 4, 11005-9, 93065-6, 02486-8 ####[facility] [address] [place], [place]#### 00910-8, 22038-1 ####[facility], [address], [place] MCV 89.2 fL Normal 80.0-97.0 [facility] Comment on above: Performed By: #### 6 9742-5, 79808-4, 69023-2, 31928-2, 77142- 4, 00442-0, 10181-2, 23895-4 ####[facility] [address] [place], [place]#### 48261-2, 67382-8 ####[facility], [address], [place] Monocytes 0.30 thou/mcL Normal 0.00-0.90 [facility] Comment on above: Performed By: #### 6 9742-5, 13328-1, 79208-7, 00865-7, 59370- 4, 00818-2, 72845-8, 05394-5 ####[facility] [address], [place]#### 53918-6, 34069-7 ####[facility], [address], [place] Monocytes/100 leukocytes 6.0 % Normal 0.0-12.0 [facility] Comment on above: Performed By: #### 6 9742-5, 06074-0, 34528-8, 84715-7, 31558- 4, 96793-0, 71169-6, 46766-3 ####[address] [place], [place]#### 16191-8, 46274-7 ####[facility], [address], [place] Neutrophils 3.00 thou/mcL Normal 1.80-7.70 [facility] Comment on above: Performed By: #### 6 9742-5, 79687-6, 73770-2, 91200-6, 11564- 4, 25077-7, 10076-9, 87546-9 ####[facility] [address] [place], [place]#### 28840-5, 86215-0 ####[facility], [facility] [address], [place] Neutrophils/100 WBC Auto (Bld) 57.4 % Normal 40.0-70.0 [facility] Comment on above: Performed By: #### 6 9742-5, 55862-9, 70839-1, 89319-6, 43464- 4, 79962-1, 55152-9, 37057-4 ####[facility] [address] [place], [place]#### 22240-0, 51567-7 ####[facility], [address], [place] Platelet mean volume (PMV) 11.9 fL Normal 6.2-12.1 [facility] Comment on above: Performed By: #### 6 9742-5, 94190-9, 69175-8, 48343-5, 39380- 4, 11709-7, 35276-7, 56134-8 ####[facility] [address] [place], [place]#### 90701-6, 27123-1 ####[facility], [address], [place] Platelets 173 thou/mcL Normal 142-424 [facility] Comment on above: Performed By: #### 6 9742-5, 71289-4, 44453-2, 13875-8, 51999- 4, 95029-9, 30635-3, 43205-6 ####[facility] [address] [place], [place]#### 02941-5, 14591-3 ####[facility], [address], [place] WBC (Leukocytes) 5.2 thou/mcL Normal 4.6-10.2 [facility] Comment on above: Performed By: #### 6 9742-5, 53767-0, 11739-3, 96383-7, 81325- 4, 75817-5, 45402-5, 29532-3 ####[facility] [address] [place], [place]#### 35082-3, 24713-8 ####[facility], [address], [place] Comprehensive Metabolic Pane blanquita 04-20-2017 Alanine aminotransferase (ALT) 37 Units/L Normal 14-63 [facility] Comment on above: Performed By: #### 6 9742-5, 64848-6, 77427-4, 53712-2, 38885- 4, 19218-2, 63183-4, 75903-8 ####[facility] [address] [place], [place]#### 16820-7, 84380-3 ####[facility], [address], [place] Albumin 4.2 g/dL Normal 3.5-4.8 [facility] Comment on above: Performed By: #### 6 9742-5, 96765-3, 63039-3, 30857-1, 89604- 4, 08230-4, 84450-7, 61042-0 ####[facility] [address], [place]#### 16653-4, 23125-1 ####[facility], [address], [place] Alkaline phosphatase (ALP) 45 Units/L Normal 32-91 [facility] Comment on above: Performed By: #### 6 9742-5, 45115-1, 14771-5, 55521-3, 04896- 4, 93366-7, 93769-1, 39851-4 ####[facility] [address], [place]#### 56457-0, 12721-4 ####[facility], [address], [place] Anion gap 10.0 mmol/L Normal 6.0-18.0 [facility] Comment on above: Result Comment: PLEA NOTE:The calculated Anion Gap(AGAP) does not include Potassium. Performed By: #### 6 9742-5, 20468-9, 60010-2, 35697-1, 03056-3, 41394-3, 02118-8, 35356-5 ####[facility] [address], [place]#### 07535-9, 48531-1 ####[facility], [address], [place] Aspartate aminotransferase (AST) 29 Units/L Normal 15-41 [facility] Comment on above: Performed By: #### 6 9742-5, 82296-0, 81548-9, 22030-9, 01820- 4, 63128-3, 95529-3, 87216-0 ####[facility] [address] [place], [place]#### 85823-4, 14123-5 ####[facility], [address], [place] Bilirubin (total) 0.5 mg/dL Normal 0.3-1.2 [facility] Comment on above: Performed By: #### 6 9742-5, 32155-8, 27093-5, 50920-5, 63863- 4, 33122-0, 24460-1, 35402-8 ####[facility] [address] [place], [place]#### 84133-1, 20304-0 ####[facility], [address], [place] Calcium 9.4 mg/dL Normal 8.9-10.3 [facility] Comment on above: Performed By: #### 6 9742-5, 25152-6, 58034-3, 25887-1, 64832- 4, 24726-8, 80538-8, 33864-7 ####[facility] [address] [place], [place]#### 68647-7, 20813-0 ####[facility], [address], [place] Chloride 102 mmol/L Normal 98-107 [facility] Comment on above: Performed By: #### 6 9742-5, 15415-8, 91722-7, 51469-9, 05380- 4, 67633-4, 12529-6, 75389-0 ####[facility] [address] [place], [place]#### 14229-5, 12341-2 ####[facility], [address], [place] CO2 26 mmol/L Normal 22-32 [facility] Comment on above: Performed By: #### 6 9742-5, 69819-7, 69777-1, 77150-3, 27210- 4, 78520-3, 84874-1, 16175-8 ####[facility] [address] [place], [place]#### 02438-5, 68953-2 ####[facility], [address], [place] Creatinine 0.67 mg/dL Normal 0.60-1.30 [facility] Comment on above: Performed By: #### 6 9742-5, 62130-0, 15768-6, 20320-2, 50707- 4, 38627-2, 80047-2, 31307-4 ####[facility] [address] [place], [place]#### 35318-9, 13549-5 ####[facility], [address], [place] Glucose mass conc 119 mg/dL High 70-110 [facility] Comment on above: Performed By: #### 6 9742-5, 41261-9, 92851-2, 62486-2, 67661- 4, 76392-0, 15800-0, 50579-8 ####[facility] [address] [place], [place]#### 14343-6, 77331-7 ####[facility], [address], [place] Potassium molar conc 4.2 mmol/L Normal 3.6-5.1 [facility] Comment on above: Performed By: #### 6 9742-5, 91187-3, 50581-7, 34392-9, 19013- 4, 97508-5, 39222-5, 18209-9 ####[facility] [address] [place], [place]#### 40657-7, 69694-2 ####[facility], [address], [place] Protein 6.7 g/dL Normal 6.1-7.9 [facility] Comment on above: Performed By: #### 6 9742-5, 86013-9, 02171-7, 55818-7, 56682- 4, 51910-3, 18796-8, 01150-6 ####[facility] [address] [place], [place]#### 06213-1, 49629-7 ####[facility], [address], [place] Sodium 138 mmol/L Normal 136-145 [facility] Comment on above: Performed By: #### 6 9742-5, 32491-6, 95527-0, 76403-1, 55938- 4, 15467-1, 44649-1, 07207-3 ####[facility] [address] [place], [place]#### 43536-9, 44265-1 ####[facility], [address] Urea nitrogen 9 mg/dL Normal 8-20 [facility] Comment on above: Performed By: #### 6 9742-5, 86821-1, 04257-3, 89056-7, 02146- 4, 03683-1, 23045-4, 77118-3 ####[address] [place], [place]#### 42946-2, 69504-6 ####[facility], [address], [place] Culture Urine + Susceptibili tyon 04-20-2017 Urine culture, bacteria [facility] MicrobiologyPROCEDURE: Culture Urine + SusceptibilitySOURCE: Urine BODY SITE:COLLECTED DATE/TIME: 04/20/2017 09:07 EST RECEIVED DATE/TIME: 04/20/2017 09:07 ESTSTART DATE/TIME: 04/20/2017 09:07 EST FREE TEXT SOURCE: URINE-URINEINTERFACED REPORTSFinal Report []Verified Date/Time/Personnel: 04/21/2017 18:58 EST CONTRIBUTOR_SYSTEM, CO_PNNO GROWTH Normal [facility] Comment on above: Performed By: #### 6 9742-5, 89943-5, 68028-1, 00531-9, 34457- 4, 20089-6, 54521-5, 57871-4 ####[facility] [address] [place], [place]#### 00035-8, 76539-4 ####[facility], [address] [place], [place] GFRaaon 04-20-2017 eGFR (black) mL/min/{1.73_m2} Normal [facility] Comment on above: Result Comment: The MDRD equation has not been validated for those over 70 years, women, patients with serious co-morbid conditions, or with extremes of bodysize, muscle mass of nutritional status. Performed By: #### 6 9742-5, 26656-1, 18202-4, 25213-2, 36662-3, 57939-9, 47274-5, 19245-6 ####[facility] [address], [place]#### 83198-9, 81555-6 ####[facility], [address] [place], [place] GFRbbon 04-20-2017 eGFR (non-black) mL/min/{1.73_m2} Normal [facility] Comment on above: Performed By: #### 6 9742-5, 69512-2, 98185-6, 05404-7, 76979- 4, 02090-0, 01794-6, 36635-5 ####[facility] [address], [place]#### 13388-3, 95545-8 ####[facility], [address] [place], [place] HCG Quantitativeon 201 8 HCG Qn m[IU]/mL Normal [facility] Comment on above: Result Comment: Preg [...] immunoassay method. Performed By: #### 6 9742-5, 56953-1, 25315-7, 26890-1, 43100-0, 25907-8, 13394-1, 73197-1 ####[facility] [address], [place]#### 62112-3, 73412-9 ####[facility], [address] [place], [place] HIV 1 Antibodyon 04-20-2017 HIV Screen NONREAC Normal NONREAC [facility] Comment on above: Result Comment: This is a 4th generation test (P24 AG,HIV-1 AB, HIV-2 AB)Specimens with preliminary reactive results will be confirmed by HIV1/2Differentiation test ([employer]). THE IDENTITY OF A PERSON ON WHOM [...] equitable relief. Performed By: #### 6 9742-5, 68832-0, 54758-8, 01220-7, 81447-1, 65088-5, 11904-7, 36299-8 ####[facility] [address], [place]#### 84196-9, 92120-8 ####[facility], [address] [place], [place] Hepatitis A (HAAb) Antibody IgMon 04-20-2017 Hepatitis A (HAAb) Antibody IgM Negative Normal NEGATIVE [facility] Comment on above: Result Comment: Hepa titis A Virus Antibody-IgM Specific. Performed By: #### 6 9742-5, 37442-6, 71011-0, 80984-3, 39739-9, 58776-9, 60690-5, 06153-7 ####[facility] [address], [place]#### 47123-1, 22327-9 ####[facility], [address], [place] Hepatitis B Core Antibody To shirley 04-20-2017 Interpretation and review of laboratory results Negative Normal NEGATIVE [facility] Comment on above: Performed By: #### 6 9742-5, 73913-1, 19304-9, 45651-0, 78242- 4, 74874-3, 73220-0, 93226-1 ####[facility] [address], [place]#### 25095-5, 20256-5 ####[facility], [facility] [address], [place] Hepatitis B Surface Antibody on 04-20-2017 Hepatitis B Surface Antibody Interp Negative Normal NEGATIVE [facility] Comment on above: Performed By: #### 6 9742-5, 59520-1, 89888-2, 14147-1, 85971- 4, 30420-2, 79772-2, 45919-9 ####[facility] [address] [place], [place]#### 30700-3, 96782-2 ####[facility], [address], [place] Magnesium Levelon 04-20-2017 Magnesium 2.0 mg/dL Normal 1.8-2.5 [facility] Comment on above: Performed By: #### 6 9742-5, 97404-1, 11703-1, 12229-9, 52919- 4, 43775-0, 65988-1, 51372-4 ####[facility] [address], [place]#### 87545-3, 53089-2 ####[facility], [facility] [address], [place] Phosphorus Levelon 8 Phosphorus Level 3.8 mg/dL Normal 2.4-4.7 [facility] Comment on above: Performed By: #### 6 9742-5, 01693-8, 20650-7, 94130-0, 57997- 4, 16433-5, 44392-0, 93832-5 ####[facility] [address], [place]#### 17324-6, 21897-8 ####[facility], [address] [place], [place] Syphilis Screenon 04-20-2017 Syphilis Screen NONREAC Normal NONREAC [facility] Comment on above: Result Comment: No s erologic evidence of syphilis. Performed By: #### 6 9742-5, 34738-8, 41663-5, 50285-6, 04287-7, 00728-7, 70878-9, 20608-2 ####[facility] [address], [place]#### 53289-7, 63081-6 ####[facility], [address] [place], [place] Vital Signs Date Time Vital Sign Value Performing Clinician Facility 08-28-2024 10:35-0400 Body mass index (BMI) [Ratio] 29.94 kg/m2 Jaguar Ingrid DO Work Phone: [facility] 08-28-2024 10:35-0400 Body weight 74.84 kg Jaguar Ingrid DO Work Phone: [facility] 08-28-2024 10:35-0400 Diastolic blood pressure 72 mm[Hg] Jaguar Ingrid DO Work Phone: [facility] 08-28-2024 10:35-0400 Systolic blood pressure 118 mm[Hg] Jaguar Ingrid DO Work Phone: [facility] 07-19-2024 10:03-0400 Body mass index (BMI) [Ratio] 28.8 kg/m2 Corby Royal NP Work Phone: [facility] 07-19-2024 10:03-0400 Body weight 72.01 kg Corby Royal NP Work Phone: [facility] 07-19-2024 10:03-0400 Diastolic blood pressure 60 mm[Hg] Corby Royal SENIOR DIRECTOR FINANCE Work Phone: [facility] 07-19-2024 10:03-0400 Systolic blood pressure 100 mm[Hg] Corby Genny SENIOR DIRECTOR FINANCE Work Phone: [facility] 06-29-2024 17:00-0400 Diastolic blood pressure 46 mm[Hg] Yaz Hollis DO Work Phone: [facility] 06-29-2024 17:00-0400 Heart rate 85 /min GAdeline Hollis DO Work Phone: [facility] 06-29-2024 17:00-0400 Respiratory rate 16 /min Yaz Hollis DO Work Phone: [facility] 06-29-2024 17:00-0400 SaO2% (BldA) [Mass fraction] 98 % Yaz Hollis DO Work Phone: [facility] 06-29-2024 17:00-0400 Systolic blood pressure 114 mm[Hg] Yaz Hollis DO Work Phone: [facility] 06-29-2024 15:13-0400 Body temperature 97.8 [degF] Yaz Hollis DO Work Phone: [facility] 06-29-2024 15:07-0400 Body height 160.02 cm Yaz Hollis DO Work Phone: [facility] 06-29-2024 15:07-0400 Body weight 68.03 kg Yaz Hollis DO Work Phone: [facility] 06-21-2024 13:01-0400 Body mass index (BMI) [Ratio] 27.67 kg/m2 Jaguar Ingrid DO Work Phone: [facility] 06-21-2024 13:01-0400 Body weight 69.17 kg Jaguar Ingrid DO Work Phone: [facility] 06-21-2024 13:01-0400 Diastolic blood pressure 66 mm[Hg] Jaguar Ingrid DO Work Phone: [facility] 06-21-2024 13:01-0400 Systolic blood pressure 104 mm[Hg] Jaguar Ingrid DO Work Phone: [facility] 06-07-2024 14:10-0400 Body temperature 97.9 [degF] Yaz Hollis DO Work Phone: [facility] 06-07-2024 14:10-0400 Diastolic blood pressure 72 mm[Hg] Yaz Hollis DO Work Phone: [facility] 06-07-2024 14:10-0400 Heart rate 88 /min Yaz Hollis DO Work Phone: [facility] 06-07-2024 14:10-0400 Respiratory rate 20 /min Yaz Hollis DO Work Phone: [facility] 06-07-2024 14:10-0400 SaO2% (BldA) [Mass fraction] 98 % Yaz Hollis DO Work Phone: [facility] 06-07-2024 14:10-0400 Systolic blood pressure 119 mm[Hg] Yaz Hollis DO Work Phone: [facility] 06-07-2024 11:07-0400 Body height 160.02 cm Yaz Hollis DO Work Phone: [facility] 06-07-2024 11:07-0400 Body weight 69.3 kg Yaz Hollis DO Work Phone: [facility] 05-25-2024 13:40-0500 Body mass index (BMI) [Ratio] 28.27 kg/m2 Sulema PATEL Work Phone: [facility] 05-25-2024 13:40-0500 Body weight 70.67 kg Sulema PATEL Work Phone: [facility] 05-25-2024 13:40-0500 Diastolic blood pressure 60 mm[Hg] Sulema PATEL Work Phone: [facility] 05-25-2024 13:40-0500 Systolic blood pressure 110 mm[Hg] Sulema PATEL Work Phone: [facility] 05-19-2024 12:23-0500 Diastolic blood pressure 55 mm[Hg] GAdeline Hollis DO Work Phone: [facility] 05-19-2024 12:23-0500 Heart rate 94 /min G. Enoch Smallftan DO Work Phone: [facility] 05-19-2024 12:23-0500 Respiratory rate 18 /min G. Enoch Smallftan DO Work Phone: [facility] 05-19-2024 12:23-0500 SaO2% (BldA) [Mass fraction] 99 % GAdeline Smalltoniemadeline DO Work Phone: [facility] 05-19-2024 12:23-0500 Systolic blood pressure 97 mm[Hg] GAdeline Smithan DO Work Phone: [facility] 05-19-2024 08:55-0500 Body height 160.02 cm G. Enoch Hollis DO Work Phone: [facility] 05-19-2024 08:55-0500 Body temperature 97.9 [degF] Yaz Hollis DO Work Phone: [facility] 05-19-2024 08:55-0500 Body weight 67.85 kg Yaz Smithan DO Work Phone: [facility] 05-16-2024 12:56-0500 Diastolic blood pressure 80 mm[Hg] G. Enoch Smalltoniean DO Work Phone: [facility] 05-16-2024 12:56-0500 Heart rate 94 /min GAdeline Smallftan DO Work Phone: [facility] 05-16-2024 12:56-0500 Respiratory rate 16 /min GAdeline Smallftmadeline DO Work Phone: [facility] 05-16-2024 12:56-0500 SaO2% (BldA) [Mass fraction] 99 % Yaz Hollis DO Work Phone: [facility] 05-16-2024 12:56-0500 Systolic blood pressure 122 mm[Hg] Yaz Hollis DO Work Phone: [facility] 05-16-2024 10:08-0500 Body height 160.02 cm Yaz Hollis DO Work Phone: [facility] 05-16-2024 10:08-0500 Body temperature 97.7 [degF] aYz Hollis DO Work Phone: [facility] 05-16-2024 10:08-0500 Body weight 68.03 kg Yaz Hollis DO Work Phone: [facility] 04-24-2024 14:45-0500 Body mass index (BMI) [Ratio] 27.16 kg/m2 Jaguar Ingrid DO Work Phone: [facility] 04-24-2024 14:45-0500 Body weight 67.9 kg Jaguar Ingrid DO Work Phone: [facility] 04-24-2024 14:45-0500 Diastolic blood pressure 66 mm[Hg] Jaguar Ingrid DO Work Phone: [facility] 04-24-2024 14:45-0500 Systolic blood pressure 108 mm[Hg] Jaguar Ingrid DO Work Phone: [facility] 04-05-2024 19:16-0500 Diastolic blood pressure 71 mm[Hg] Yaz Hollis DO Work Phone: [facility] 04-05-2024 19:16-0500 Heart rate 87 /min Yaz Hollis DO Work Phone: [facility] 04-05-2024 19:16-0500 Respiratory rate 20 /min Yaz Hollis DO Work Phone: [facility] 04-05-2024 19:16-0500 SaO2% (BldA) [Mass fraction] 97 % Yaz Hollis DO Work Phone: [facility] 04-05-2024 19:16-0500 Systolic blood pressure 106 mm[Hg] Yza Hollis DO Work Phone: [facility] 04-05-2024 14:46-0500 Body height 160.02 cm Yaz Hollis DO Work Phone: [facility] 04-05-2024 14:46-0500 Body temperature 97.9 [degF] Yaz Hollis DO Work Phone: [facility] 04-05-2024 14:46-0500 Body weight 65 kg Yaz Hollis DO Work Phone: [facility] 03-24-2024 11:29-0500 Body mass index (BMI) [Ratio] 24.49 kg/m2 [facility] Nurse [facility] 03-24-2024 11:29-0500 Body weight 61.24 kg [facility] Nurse [facility] 03-24-2024 11:29-0500 Diastolic blood pressure 68 mm[Hg] [facility] 03-24-2024 11:29-0500 Systolic blood pressure 112 mm[Hg] [facility] 03-04-2024 13:32-0500 Diastolic blood pressure 70 mm[Hg] Yaz Hollis DO Work Phone: [facility] 03-04-2024 13:32-0500 Heart rate 76 /min Yaz Hollis DO Work Phone: [facility] 03-04-2024 13:32-0500 Respiratory rate 20 /min Yaz Hollis DO Work Phone: [facility] 03-04-2024 13:32-0500 SaO2% (BldA) [Mass fraction] 100 % Yaz Hollis DO Work Phone: 0(733)828-027154 [address] 03-04-2024 13:32-0500 Systolic blood pressure 115 mm[Hg] Yaz Hollis DO Work Phone: 5(192)749-450061 [place] [address] 03-04-2024 11:14-0500 Body height 160.02 cm Yaz Hollis DO Work Phone: 6(339)401-750861 [place] [address] 03-04-2024 11:14-0500 Body temperature 97.9 [degF] Yaz Hollis DO Work Phone: 5(607)929-358361 [place] [address] 03-04-2024 11:14-0500 Body weight 63 kg Yaz Hollis DO Work Phone: 6(096)551-338854 [address] 11-25-2023 17:46-0400 Body height 160.02 cm DO Yaz Hollis Work Phone: 9(385)287-113954 [address] 11-25-2023 17:46-0400 Body temperature 98 [degF] DO Yaz Hollis Work Phone: 6(329)950-034754 [address] 11-25-2023 17:46-0400 Body weight 65.77 kg DO Yaz Hollis Work Phone: 3(652)059-250561 [place] [address] 11-25-2023 17:46-0400 Diastolic blood pressure 71 mm[Hg] DO Yaz Hollis Work Phone: 4(301)515-799261 [place] [address] 11-25-2023 17:46-0400 Heart rate 68 /min DO Yaz Hollis Work Phone: [facility] 11-25-2023 17:46-0400 Respiratory rate 18 /min DO Yaz Hollis Work Phone: 4(217)533-758761 [place] [address] 11-25-2023 17:46-0400 SaO2% (BldA) [Mass fraction] 97 % DO Yaz Hollis Work Phone: [facility] 11-25-2023 17:46-0400 Systolic blood pressure 107 mm[Hg] DO Yaz Hollis Work Phone: [facility] 12-02-2022 13:15-0400 Body height 160.02 cm Claribelbrie Mora Other [employer] Other 12-02-2022 13:15-0400 Body mass index (BMI) [Ratio] 25.86 kg/m2 Claribel Mora Other [employer] Other 12-02-2022 13:15-0400 Body weight 66.23 kg Claribel Mora Other [employer] Other 12-02-2022 13:15-0400 Diastolic blood pressure 66 mm[Hg] Claribel Abby Other [employer] Other 12-02-2022 13:15-0400 Respiratory rate 18 /min Claribel Mora Other [employer] Other 12-02-2022 13:15-0400 SaO2% (BldA) [Mass fraction] 98 % Claribelbrie Mora Other [employer] Other 12-02-2022 13:15-0400 Systolic blood pressure 100 mm[Hg] Claribel Mora Other [employer] Other 07-16-2022 14:45-0400 Body height 160.02 cm Claribeljessica Mora Other [employer] Other 07-16-2022 14:45-0400 Body mass index (BMI) [Ratio] 27.22 kg/m2 Claribelbrie Mora Other [employer] Other 07-16-2022 14:45-0400 Body weight 69.72 kg Claribeljessica Mora Other [employer] Other 07-16-2022 14:45-0400 Diastolic blood pressure 64 mm[Hg] Claribel Mora Other [employer] Other 07-16-2022 14:45-0400 Respiratory rate 18 /min Claribel Mora Other [employer] Other 07-16-2022 14:45-0400 SaO2% (BldA) [Mass fraction] 97 % Claribel Mora Other [employer] Other 07-16-2022 14:45-0400 Systolic blood pressure 104 mm[Hg] Claribel Mora Other [employer] Other 06-04-2022 15:15-0400 Body height 160.02 cm Adin Gan Other [employer] Other 06-04-2022 15:15-0400 Body mass index (BMI) [Ratio] 27.28 kg/m2 Adin Gan Other [employer] Other 06-04-2022 15:15-0400 Body weight 69.85 kg Adin Gan Other [employer] Other 06-04-2022 15:15-0400 Diastolic blood pressure 80 mm[Hg] Adin Gan Other [employer] Other 06-04-2022 15:15-0400 Respiratory rate 18 /min Adin Gan Other [employer] Other 06-04-2022 15:15-0400 SaO2% (BldA) [Mass fraction] 98 % Adin Gan Other [employer] Other 06-04-2022 15:15-0400 Systolic blood pressure 126 mm[Hg] Adin Gan Other [employer] Other 05-25-2022 15:30-0500 Body height 160.02 cm Adin Gan Other [employer] Other 05-25-2022 15:30-0500 Body mass index (BMI) [Ratio] 27.28 kg/m2 Adin Gan Other [employer] Other 05-25-2022 15:30-0500 Body weight 69.85 kg Adin Gan Other [employer] Other 05-25-2022 15:30-0500 Diastolic blood pressure 80 mm[Hg] Adin Gan Other [employer] Other 05-25-2022 15:30-0500 Respiratory rate 18 /min Adin Gan Other [employer] Other 05-25-2022 15:30-0500 SaO2% (BldA) [Mass fraction] 99 % Adin Gan Other [employer] Other 05-25-2022 15:30-0500 Systolic blood pressure 124 mm[Hg] Adin Gan Other [employer] Other 05-30-2021 03:06-0500 Body weight 72.[address] RUSTAM SCALES [facility] Comment on above: Performed By: #### AFPMAT #### [facility] [address] [place] [address] Dr. Lilia Calvillo Encounters Encounter Date Encounter Type Care Provider Facility Start: 09-08-2024 End: 09-08-2024 Clinisync Result Encounter Jaguar Ingrid DO Work Phone: [facility] Unsolicited Start: 09-08-2024 End: 09-08-2024 Clinisync Result Encounter Jaguar Ingrid DO Work Phone: [facility] Unsolicited Start: 09-06-2024 End: [...] [facility] Start: 08-28-2024 End: 08-28-2024 flow sheet Jaguar Ingrid DO Work Phone: [facility] Comment on above: Gestational diabetes mellitus (GDM), antepartum, gestational diabetes method of control unspecified (Primary Dx); Third trimester ; 31 weeks gestation of ; Elevated glucose tolerance test; Anemia affecting in third trimester Start: 08-28-2024 End: 08-28-2024 ambulatory JAGUAR INGRID Not Available Start: 08-10-2024 End: 08-10-2024 ambulatory JAGUAR INGRID Not Available Start: 07-19-2024 End: 07-19-2024 flow sheet Corby Royal SENIOR DIRECTOR FINANCE Work Phone: [facility] Comment on above: Upper respiratory tr act infection, unspecified type (Primary Dx); Second trimester ; 25 weeks gestation of ; Vomiting complicating Start: 07-19-2024 End: 07-19-2024 ambulatory CORBY ROYAL Not Available Start: 06-29-2024 End: 06-29-2024 Emergency department patient visit Yaz Hollis DO Work Phone: [facility] Work Phone: Start: 06-21-2024 End: 06-21-2024 Bamboo flowsheet Jaguar Ingrid DO Work Phone: [facility] Start: 06-21-2024 End: 06-21-2024 Bamboo flowsheet Jaguar Ingrid DO Work Phone: [facility] Start: 06-21-2024 End: 06-21-2024 flow sheet Jaguar Ingrid DO Work Phone: [facility] Comment on above: Second trimester pre gnancy; 21 weeks gestation of ; Moderately severe depression (CMS/HCC); Nausea and vomiting in ; Diabetes mellitus screening; Low-lying placenta Start: 06-21-2024 End: 06-21-2024 ambulatory JAGUAR INGRID Not Available Start: 06-12-2024 End: 06-12-2024 ambulatory JAGUAR INGRID Not Available Start: 06-07-2024 End: 06-07-2024 Emergency department patient visit Yaz Hollis DO Work Phone: [facility] Work Phone: Start: 05-25-2024 End: [...] Start: 05-25-2024 End: 05-25-2024 Patient encounter procedure Sulema Za PA Work Phone: [facility] Start: 05-25-2024 End: 05-25-2024 ambulatory SULEMA LAU Not Available Start: 05-19-2024 End: 05-19-2024 Emergency department patient visit Yaz Hollis DO Work Phone: [facility] Work Phone: Start: 05-16-2024 End: 05-16-2024 Emergency department patient visit Yaz Hollis DO Work Phone: [facility] Work Phone: Start: 04-24-2024 End: [...] patient visit Yaz Hollis DO Work Phone: [facility] Work Phone: Start: 04-03-2024 End: [...] patient visit Yaz Hollis DO Work Phone: [facility] Work Phone: Start: 11-25-2023 End: 11-25-2023 Emergency department patient visit DO Yaz Hollis Work Phone: [facility] Work Phone: Start: 10-05-2023 End: 10-05-2023 ambulatory RICARDO POWELL Not Available Start: 12-02-2022 End: 12-02-2022 ambulatory Claribelbrie Mora Other [employer] Other Start: 12-02-2022 Office outpatient vi sit 25 minutes Claribelbrie Mora [facility] Start: 07-16-2022 End: 07-16-2022 ambulatory Claribel Mora Other [employer] Other Start: 07-16-2022 Office outpatient vi sit 25 minutes [facility] Start: 06-08-2022 End: 06-08-2022 ambulatory Adin Gan Other [employer] Other Start: 06-08-2022 Telephone encounter Adin Ahn [facility] [place] Start: 06-05-2022 End: 06-05-2022 ambulatory Adin Gan Other [employer] Other Start: 06-05-2022 Telephone encounter Adin Ahn [facility] [place] Start: 06-04-2022 End: 06-04-2022 Patient encounter procedure DO Adin Gan Work Phone: [facility] Start: 06-04-2022 End: 06-04-2022 ambulatory DO Adin Gan Work Phone: [facility] Work Phone: Start: 06-04-2022 Office outpatient vi sit 15 minutes Adin Gan [facility] [place] Start: 05-25-2022 End: 05-25-2022 ambulatory Adin Gan Other [employer] Other Start: 05-25-2022 Office outpatient vi sit 15 minutes Adin Gan [facility] [place] Start: 05-22-2022 End: 05-22-2022 ambulatory Adin Gan Other [employer] Other Start: 05-22-2022 Telephone encounter Adin MA [facility] [place] Start: 05-07-2022 End: 05-07-2022 ambulatory Adin Gan Other [employer] Other Start: 05-07-2022 Telephone encounter Adin MA G [facility] [place] Start: 04-01-2022 End: 04-01-2022 ambulatory Nabil Mcgraw Other [employer] Other Start: 04-01-2022 Telephone encounter Nbail Mcgraw [facility] [place] Start: 02-17-2022 End: 02-17-[address] JAGUAR QUINTERO Facility:[facility] Start: 10-22-2021 Encounter for preprocedural laboratory examination DR JAGUAR QUINTERO [facility] Start: 10-21-2021 End: 10-21-[address] JAGUAR QUINTERO Facility:[facility] Start: 10-16-2021 End: 10-18-2021 Evaluation and management of inpatient DR JAGUAR QUINTERO Facility:[facility] Start: 10-14-2021 Encounter for preprocedural laboratory examination DR JAGUAR QUINTERO [facility] Start: 10-13-2021 End: 10-14-2021 ambulatory NONE LISTED [...] Date Procedure Procedure Detail Performing Clinician Start: 09-08-2024 US OB BPP W NON-STRESS Jaguar Ingrid DO Work Phone: Start: 09-06-2024 US OB GROWTH Generic Ex ternal Data Provider Start: 08-28-2024 Urnls dip stick/tabl et rgnt non-auto w/o micrscp Jaguar Ingrid DO Work Phone: Start: 07-19-2024 Urnls dip stick/tabl et rgnt non-auto w/o micrscp Corby Royal SENIOR DIRECTOR FINANCE Work Phone: Start: 06-21-2024 Urnls dip stick/tabl et rgnt non-auto w/o micrscp Jaguar Ingrid DO Work Phone: Start: 05-25-2024 Urnls dip stick/tabl et rgnt non-auto w/o micrscp Sulema Lau PA Work Phone: Start: 05-25-2024 IGP,APTIMA HPV,AGE GDLN Sulema Za PA Work Phone: Start: 05-25-2024 Microscopic observat ion [Identifier] in Cervix by Cyto stain Jaguar Quintero DO Work Phone: Start: 04-24-2024 Urnls dip stick/tabl et rgnt non-auto w/o micrscp Sulema PATEL Work Phone: Start: 04-05-2024 Respiratory Panel (PCR) Yaz Hollis DO Work Phone: Start: 04-03-2024 BOX TEST Jaguar burnham DO Work Phone: Start: 03-24-2024 End: 03-24-2024 Urnls dip stick/tablet rgnt non-auto w/o micrscp Jaguar Quintero DO Work Phone: Start: 11-25-2023 CT cervical spine without contrast DO Yaz Kendall Ge[employer] Work Phone: Start: 11-25-2023 CT of head without contrast DO Yaz Smallguy Work Phone: Start: 10-16-2021 Extraction of Produc ts of Conception, Low Cervical, Open Approach DR RUSTAM SCALES H/O: section Status pos t delivery DO Adin Gan Work Phone: Comment on above: Problem List clean-u p per request of Phys. EHR Cmte Plan of Treatment Date Care Activity Detail Author Start: 05-25-2029 Screening for malign ant neoplasm of cervix [facility] Start: 01-02-2026 Screening for malign ant neoplasm of cervix [facility] Start: 11-20-2024 Influenza vaccination Influenz a Vaccine (Season Ended) [facility] Start: 09-11-2024 End: 09-11-2024 Patient encounter procedure 09/11/2024 1:50 PM EDT Routine [facility] [address] [place] [id number] Sulema Lau PA [address] [place] [address] [facility] Start: 09-11-2024 End: 09-11-2024 Patient encounter procedure 09/11/2024 9:30 AM EDT Routine [facility] [address] [place] [id number] Sulema Lau PA [address] [place] [address] [facility] Start: 08-28-2024 End: 08-28-2025 Transferrin [Mass/volume] in Serum or Plasma Transferrin Lab Routine Third trimester Gestational diabetes mellitus (GDM), antepartum, gestational diabetes method of control unspecified Elevated glucose tolerance test Anemia affecting in third trimester Expected: 08/28/2024 (Approximate), Expires: 08/28/2025 [facility] Comment on above: Expected: 08/28/2024 (Approximate), Expires: 08/28/2025 Start: 08-28-2024 End: 02-27-2025 US biophysical profile w non stress test US biophysical profile w non stress test Imaging Routine Third trimester Anemia affecting in third trimester Expected: 08/28/2024 (Approximate), Expires: 02/27/2025 [facility] Work Phone: Comment on above: Expected: 08/28/2024 (Approximate), Expires: 02/27/2025 Start: 08-28-2024 End: 12-28-2024 US for US OB follow up transabdominal approach Imaging Routine Third trimester Gestational diabetes mellitus (GDM), antepartum, gestational diabetes method of control unspecified Elevated glucose tolerance test Anemia affecting in third trimester Expected: 08/28/2024, Expires: 12/28/2024 [facility] Comment on above: Expected: 08/28/2024 , Expires: 12/28/2024 Start: 08-28-2024 End: 08-28-2024 Patient encounter procedure 08/28/2024 10:50 AM EDT Routine [facility] [address] [place] [id number] Jaguar Quintero DO [address] [place] [address] Arrived [facility] Comment on above: Arrived Start: 08-10-2024 End: 08-10-2024 Patient encounter procedure 08/10/2024 11:10 AM EDT Routine [facility] [address] [place] [id number] Jaguar Quintero DO [address] [facility] [address] [place] [address] [facility] Start: 07-19-2024 End: 07-19-2024 Patient encounter procedure 07/19/2024 10:30 AM EDT Routine [facility] [address] [place] [id number] Sulema Lau PA [address] [facility] [place] [address] [facility] Start: 07-19-2024 End: 07-19-2024 Professional / ancillary services management 07/19/2024 9:30 AM EDT Ancillary Procedure [facility] [address] [place] [id number] [facility] Start: 06-29-2024 Urine culture [facility] Start: 06-29-2024 Bacteria identified in Urine by Culture Urine Culture [facility] Start: 06-21-2024 End: 06-21-2025 CBC panel - Blood by Automated count CBC Lab Routine Diabetes mellitus screening Expected: 06/21/2024 (Approximate), Expires: 06/21/2025 [facility] Comment on above: Expected: 06/21/2024 (Approximate), Expires: 06/21/2025 Start: 06-21-2024 End: 06-21-2025 Measurement of glucose 1 hour after glucose challenge for glucose tolerance test Glucose tolerance, 1 hour Lab Routine Diabetes mellitus screening Expected: 06/21/2024 (Approximate), Expires: 06/21/2025 [facility] Comment on above: Expected: 06/21/2024 (Approximate), Expires: 06/21/2025 Start: 06-21-2024 End: 06-21-2025 US for US OB limited 1+ fetuses Imaging Routine Low-lying placenta Expected: 06/21/2024, Expires: 06/21/2025 [facility] Work Phone: Comment on above: Expected: 06/21/2024 , Expires: 06/21/2025 Start: 06-21-2024 End: 06-21-2024 Patient encounter procedure [facility] Comment on above: Arrived Start: 06-12-2024 End: 06-12-2024 Professional / ancillary services management 06/12/2024 2:30 PM EDT Ancillary Procedure [facility] [address] [place] [id number] [facility] Start: 05-25-2024 End: 05-25-2025 Alpha fetoprotein, maternal Alpha fetoprotein, maternal Lab Routine 17 weeks gestation of Second trimester Expected: 05/25/2024 (Approximate), Expires: 05/25/2025 [facility] Comment on above: Expected: 05/25/2024 (Approximate), Expires: 05/25/2025 Start: 05-25-2024 End: 05-25-2025 US for US OB 14+ weeks anatomy scan Imaging Routine Screening, , for anatomic survey Expected: 05/25/2024, Expires: 05/25/2025 [facility] Comment on above: Expected: 05/25/2024 , Expires: 05/25/2025 Start: 05-25-2024 End: 05-25-2024 Patient encounter procedure [facility] Comment on above: Arrived Start: 04-24-2024 End: 04-24-2024 Patient encounter procedure [facility] Comment on above: Arrived Start: 03-24-2024 End: 03-24-2025 ABO/Rh ABO/Rh Lab Routine Missed menses , unspecified gestational age Expected: 03/24/2024 (Approximate), Expires: 03/24/2025 [facility] Comment on above: Expected: 03/24/2024 (Approximate), Expires: 03/24/2025 Start: 03-24-2024 End: 03-24-2025 Blood type and Indirect antibody screen panel - Blood Type and screen Lab Routine Missed menses , unspecified gestational age Expected: 03/24/2024 (Approximate), Expires: 03/24/2025 [facility] Work Phone: Comment on above: Expected: 03/24/2024 (Approximate), Expires: 03/24/2025 Start: 03-24-2024 End: 03-24-2025 Drugs of abuse panel - Urine by Screen method Rapid drug screen, urine Lab Routine , unspecified gestational age Encounter for supervision of normal first in first trimester Expected: 03/24/2024 (Approximate), Expires: 03/24/2025 [facility] Comment on above: Expected: 03/24/2024 (Approximate), Expires: 03/24/2025 Start: 11-21-2023 Influenza vaccination Influenza Vacc ine (#1) [facility] Start: 2014 Screening for malign ant neoplasm of cervix Pap Smear [facility] Bacteria identified in Urine by Culture Urine culture Microbiology Routine Missed menses Ordered: 03/24/2024 [facility] Comment on above: Ordered: 03/24/2024 CBC W Auto Different ial panel - Blood CBC and differential Lab Routine Missed menses , unspecified gestational age Ordered: 03/24/2024 [facility] Comment on above: Ordered: 03/24/2024 CHLAMYDIA TRACHOMATI S (GENITO/STI) CHLAMYDIA TRACHOMATIS (GENITO/STI) Lab Routine Exposure to STD Ordered: 05/25/2024 [facility] Comment on above: Ordered: 05/25/2024 Cytology Cervical or vaginal smear or scraping study Pap Smear Pathology and Cytology Routine Well woman exam with routine gynecological exam Ordered: 05/25/2024 [facility] Comment on above: Ordered: 05/25/2024 Ferritin [Mass/volum e] in Serum or Plasma Ferritin Lab Routine Third trimester Anemia affecting in third trimester Ordered: 08/28/2024 [facility] Comment on above: Ordered: 08/28/2024 Hemoglobin A1c/Hemoglobin.total in Blood Hemoglobin A1c Lab Routine Missed menses , unspecified gestational age Ordered: 03/24/2024 [facility] Comment on above: Ordered: 03/24/2024 Hepatitis B virus surface Ag [Presence] in Serum or Plasma by Immunoassay Hepatitis B surface antigen Lab Routine Missed menses , unspecified gestational age Ordered: 03/24/2024 [facility] Comment on above: Ordered: 03/24/2024 Hepatitis C virus Ab [Presence] in Serum or Plasma by Immunoassay Hepatitis C antibody Lab Routine Missed menses , unspecified gestational age Ordered: 03/24/2024 [facility] Comment on above: Ordered: 03/24/2024 HIV-1/HIV-2 antigen/antibody combination immunoassay HIV-1 and HIV-2 antibodies Lab Routine Missed menses , unspecified gestational age Ordered: 03/24/2024 [facility] Comment on above: Ordered: 03/24/2024 Human papilloma viru s DNA [Presence] in Unspecified specimen by Probe with amplification HPV DNA probe, amplified Microbiology Routine Well woman exam with routine gynecological exam Ordered: 05/25/2024 [facility] Comment on above: Ordered: 05/25/2024 Neisseria gonorrhoea e DNA [Presence] in Unspecified specimen by TORRES with probe detection Neisseria gonorrhea DNA probe, direct Lab Routine Exposure to STD Ordered: 05/25/2024 [facility] Comment on above: Ordered: 05/25/2024 Patient Education [facility] Work Phone: Patient referral [facility] Work Phone: Reagin Ab [Presence] in Serum by RPR RPR Lab Routine Missed menses , unspecified gestational age Ordered: 03/24/2024 [facility] Comment on above: Ordered: 03/24/2024 Rubella antibody, IgG Rubella an tibody, IgG Lab Routine Missed menses , unspecified gestational age Ordered: 03/24/2024 [facility] Comment on above: Ordered: 03/24/2024 SURESWAB(R) ADVANCED VAGINITIS PLUS, TMA SURESWAB(R) ADVANCED VAGINITIS PLUS, TMA Pathology and Cytology Routine Vaginal discharge Ordered: 05/25/2024 [facility] Work Phone: Comment on above: Ordered: 05/25/2024 Immunizations Immunization Date Immunization Notes Care Provider Trace luis 06-30-2019 tetanus toxoid, reduced diphtheria toxoid, and acellular pertussis vaccine, adsorbed DO Adin Gan Work Phone: [facility] 05-12-2013 influenza, seasonal, injectable, preservative free [facility] 05-12-2013 influenza virus vaccine, unspecified formulation [facility] 10-19-2012 tetanus toxoid, reduced diphtheria toxoid, and acellular pertussis vaccine, adsorbed [facility] 02-25-2012 influenza, seasonal, injectable [facility] Nurse [facility] 01-09-2011 influenza virus vaccine, live, attenuated, for intranasal use [facility] Nurse [facility] 02-28-2007 influenza, seasonal, injectable [facility] Nurse [facility] 02-01-2006 influenza, seasonal, injectable [facility] Nurse [facility] NEGATED: Highlighted row has not occurred!07-16-2022 influenza, seasonal, injectable Patient Objection Claribel Mora Other [employer] Other Payers Date Payer Category Payer [facility] er [id number] 2023 Unknown [id number] 2023 Private Health Insurance [id number] 2017 Unknown [id number] 1993 Unknown [id number] 2.16.840.1.947459.3.579.2. 593 1993 Unknown [id number] .16.840.1.189495.3.579.2. 593 1993 Unknown [id number] 2.16.840.1.472249.3.579.2. 593 1993 Unknown [id number] 2.16.840.1.563207.3.579.2. 593 1993 Unknown [id number] 2.16.840.1.614340.3.579.2. 59 1993 Unknown [id number] 2.16.840.1.176374.3.579.2. 593 1993 Unknown [id number] 2.16.840.1.262847.3.579.2. 59 1993 Unknown [id number] 2.16.840.1.154231.3.579.2. 593 1993 Unknown [id number] 2.16840.1.515625.3.579.2. 59 1993 Unknown [id number] 2.16.840.1.845790.3.579.2. 593 1993 Unknown [id number] 2.16.840.1.040555.3.579.2. 59 1993 Unknown [id number] 2.16840.1.705016.3.579.2. 125 1993 Unknown [id number] 2.16840.1.761895.3.579.2. 125 1993 Unknown [id number] 2.16.840.1.049340.3.579.2. 125 1993 Unknown [id number] 2.16.840.1.548942.3.579.2. 1258 1993 Unknown [id number] 2.16.840.1.173806.3.579.2. 125 1993 Unknown [id number] 2.16.840.1.311562.3.579.2. 125 1993 Unknown [id number] 2.16.840.1.419707.3.579.2. 1258 1993 Unknown [id number] 2.840.1.799586.3.579.2. 1258 1993 Unknown [id number] 2.840.1.214830.3.579.2. 1258 1993 Unknown [id number] 2.840.1.227664.3.579.2. 1258 1993 Unknown [id number] 2.840.1.651348.3.579.2. 1258 1993 Unknown [id number] 2.0.1.736089.3.579.2. 1258 1959 Self-pay 1959 Unknown [id number] 1959 Unknown [id number] Medicaid [id number] Medicaid [place] [employer] [id number] 401 [id number] Unknown [id number] 2.0.1.821563.3.579.2. 593 Unknown [id number] 2.840.1.456966.3.579.2. 531 Unknown [id number] .840.1.164963.3.579.2. 531 Unknown [id number] .0.1.346111.3.579.2. 531 Unknown [id number] .840.1.747337.3.579.2. 531 Unknown [id number] 2.0.1.951726.3.579.2. 531 Unknown [id number] 2.840.1.811480.3.579.2. 531 Unknown [id number] 2.840.1.016656.3.579.2. 531 Social History Date Type Detail Facility Start: 10-05-2023 Sex Assigned At [employer] Other Start: 04-28-2020 End: 06-29-2024 Tobacco smoking status NHIS Never smoked tobacco (finding) [facility] Start: 1995 Sex Assigned At Female [facility] Start: 11-25-2023 End: 03-22-2017 Tobacco smoking status NHIS Smoker (finding) [facility] Start: 10-05-2023 Tobacco smoking status AKIS Ex-smoker [facility] End: 03-22-2017 History of tobacco use Cigarette Smoker [facility] Start: 10-05-2023 Tobacco use and exposure Smokeless tobacco non-user [facility] Start: 03-24-2024 End: 08-10-2024 Alcoholic beverage intake Ex-drinker (finding) [facility] Start: 10-05-2023 History of Social function [facility] Start: 06-20-2023 Education 21 [facility] Start: 06-20-2023 Tobacco Comment Last smoked : 1- 5 years [facility] Start: 06-20-2023 Alcohol Comment caffeine intake : 1-2 cups per day [facility] Start: 02-04-2024 [facility] Start: 07-12-2023 Gender identity Identifies as female gender (finding) [facility] Start: 07-12-2023 Sexual orientation Heterosexual (finding) [facility] Start: 04-05-2024 End: 06-29-2024 Sex Female (finding) [facility] Medical Equipment Procedure Code Equipment Code Equipment Origin al Text Equipment Identifier Dates 1 strip by In Vi tro route Daily Use in the morning prior to breakfast, 1 hour after each meal for a total of 4times daily. [id number] Start: 08-28-2024 End: 09-27-2024 1 each by In Vit ro route Daily Use to check FSBS four times daily [id number] Start: 08-28-2024 End: 09-27-2024 Clinical Notes 08-20-2017 to 08-28-2024 Chrissy Gomez MA - 08/28/2024 10:50 AM Sue Royal NP [...] to check FSBS. Blood Glucose Monitoring Suppl ([employer] Glucometer) w/Device kit 1 kit, Does not [...] 04/07/2023 Constipation 04/07/2023 Chronic GERD 04/07/2023 Goiter ([facility]/HCC) 04/07/2023 Migraine without aura and without status [...] 2018 Hx of abnormal cervical Pap smear 2015 had laser cervix for pre cancerous changes [...] nursing note reviewed. Exam conducted with a maintenance journeyman present. Vitals: Estimated body mass index is [...] Patient given orders and orders sent to [facility] Scheduling and [facility]BC. Patient was given orders for Transferrin and Ferratin. Patient educated on how to check FSBS and given direct extension to automotive services manager for any questions/concerns. Nursing will reach [...] Jaguar Quintero DO documented in this encounter [facility] 07-19-2024 History of Presen t illness Narrative [...] 04/07/2023 Constipation 04/07/2023 Chronic GERD 04/07/2023 Goiter ([facility]/HCC) 04/07/2023 Migraine without aura and without status migrainosus, not intractable ([facility]/HCC) 04/07/2023 Moderately severe depression ([facility]/HCC) 04/07/2023 Hyperemesis gravidarum 05/19/2024 Resolved Ambulatory Problems [...] Diagnosis Date Allergic Depression (CMS/HCC) Drug addiction ([facility]/HCC) Heroin , alcohol sober 2015 to 2019 [...] nursing note reviewed. Exam conducted with a maintenance journeyman present. Vitals: Estimated body mass index is [...] Corby Royal NP documented in this encounter [facility] 06-21-2024 History of Presen t illness Narrative [...] 04/07/2023 Constipation 04/07/2023 Chronic GERD 04/07/2023 Goiter ([facility]/HCC) 04/07/2023 Migraine without aura and without status [...] nursing note reviewed. Exam conducted with a maintenance journeyman present. Vitals: Estimated body mass index is [...] Jaguar Quintero DO documented in this encounter [facility] 05-25-2024 History of Presen t illness Narrative [...] 04/07/2023 Constipation 04/07/2023 Chronic GERD 04/07/2023 Goiter ([facility]/HCC) 04/07/2023 Migraine without aura and without status migrainosus, not intractable ([facility]/HCC) 04/07/2023 Moderately severe depression ([facility]/HCC) 04/07/2023 Hyperemesis gravidarum 05/19/2024 Resolved Ambulatory Problems [...] nursing note reviewed. Exam conducted with a maintenance journeyman present. Vitals: Estimated body mass index is [...] obtained without difficulty and patient was given msAFP order to have obtained. Orders Placed This [...] of: JORGE Coon documented in this encounter [facility] 04-24-2024 History of Presen t illness Narrative [...] 04/07/2023 Constipation 04/07/2023 Chronic GERD 04/07/2023 Goiter ([facility]/HCC) 04/07/2023 Migraine without aura and without status migrainosus, not intractable ([facility]/HCC) 04/07/2023 Moderately severe depression (CMS/HCC) 04/07/2023 Resolved [...] or undercooked meat, and stay away from [facility]. Patient has been consulted regarding any further do's and don'ts of . Patient voiced understanding and all questions and concerns were answered. No orders of the defined types were placed in this encounter. Follow Up: Patient is to return in 4 weeks for routine OB appointment. Documented by Pat Jaime MA on behalf of: Jaguar Quintero DO documented in this encounter [facility] 03-24-2024 History of Presen t illness [...] cocaine, heroin, alcohol addiction, quit in 2016 Past Surgical History: Procedure Laterality Date CERVICAL [...] or undercooked meat, and stay away from [facility]. Patient has also been advised to [...] Chrissy Gomez MA documented in this encounter [facility] 12-02-2022 Evaluation note Encounter Date Diagnosis [...] time. Nov, Concentration deficit (ICD-10 - R41.840) [employer] Other 04-27-2023 Evaluation note* Encounter Date Diagnosis [...] f/u if no improvement or worsening symptoms. [employer] Other 03-16-2023 Evaluation note* Encounter Date Diagnosis [...] Z86.19) May, Chronic fatigue (ICD-10 - R53.82) [employer] Other 03-06-2023 Evaluation note* Encounter Date Diagnosis Assessment Notes Treatment Notes Treatment Clinical Notes May, SEEMA (generalized anxiety disorder) (ICD-10 - F41.1) She will call if this does not adequately control her symptoms May, Encounter for other contraceptive management (ICD-10 - Z30.8) [employer] Other 02-16-2023 Evaluation note* Encounter Date Diagnosis Assessment Notes Treatment Notes Treatment Clinical Notes Apr, SEEMA (generalized anxiety disorder) (ICD-10 - F41.1) [employer] Other 07-28-2022 NoteOPERATIVE NOTE OPERATION DATE: 10/16/2021 PROCEDURE: Repeat low transverse section. PREOPERATIVE DIAGNOSIS: 1. Intrauterine at 39 weeks. 2. Previous . POSTOPERATIVE DIAGNOSIS: 1. Intrauterine at 39 weeks. 2. Previous . ANESTHESIA: Spinal with Duramorph. SURGEON: Jaguar Quintero D.O. PRESSURE TESTER: KATHERINE Dao URINE OUTPUT: Yellow and clear. [...] to the Recovery Room in stable condition.[id number] Note DISCHARGE DATE: 10/18/2021 PRIMARY DIAGNOSES: 1. [...] pain free and no longer on narcotics.[id number] History general Narrative - Reported* Type Description Date Medical History Hep C - cured as of August 2017 Medical History Miscarriage 06/2018 Surgical History Pre cancerous cells removed- ou tpatient Derm procedure 2012 Surgical History csection 10/16/2021 [facility] [employer] Other [id number] History general Narrative - Reported* Type Description Date Medical History Hep C - cured as of August 2017 Medical History Miscarriage 06/2018 Surgical History Pre cancerous cells removed- outpatient Derm procedure 2012 Surgical History x 2 10/16/2021 Surgical History tonsillectomy Hospitalization History see above Hospitalization History child x 2 [employer] Other Evaluation noteNo InformationNort [employer] Other evaluation noteNo assessment information available [facility] Work Phone: evaluation note* Diagnosis Missed menses 8 weeks gestation of , unspecified gestational age Encounter for supervision of normal first in first trimester Nausea and vomiting in Unspecified vomiting of , unspecified as to episode of care [facility] Diagnosis 13 weeks gestation of First trimester state, incidental [facility] Diagnosis 17 weeks gestation of Second trimester state, incidental Well woman exam with routine gynecological exam Routine gynecological examination Screening, , for anatomic survey Encounter for anatomic survey Exposure to STD Vaginal discharge Leukorrhea, not specified as infective [facility] Diagnosis Second trimester state, incidental 21 weeks gestation of Moderately severe depression (CMS/HCC) Nausea and vomiting in Unspecified vomiting of , unspecified as to episode of care Diabetes mellitus screening Screening for diabetes mellitus Low-lying placenta Hemorrhage from placenta previa, unspecified as to episode of care documented in this encounter [facility] note* Diagnosis Upper respiratory tract infection, unspecified type- Primary Second trimester state, incidental 25 weeks gestation of Vomiting complicating Unspecified vomiting of , unspecified as to episode of care documented in this encounter [facility]Evaluation note* Diagnosis Gestational diabetes mellitus (GDM), antepartum, gestational diabetes method of control unspecified- Primary Third trimester state, incidental 31 weeks gestation of Elevated glucose tolerance test Impaired glucose tolerance test Anemia affecting in third trimester documented in this encounter [facility] Discharge instructions Additional Instructions Flexeril for needed for muscle spasms You cannot work or drive when taking Flexeril Ice for the next 24 hours and then rotate heat Tylenol or Motrin if needed for pain Take steroids as directed Follow-up with your doctor Gentle range of motion Avoid heavy lifting [facility] or [facility] Discharge instructions Additional Instructions Follow up with your OB-COMMUNICATIONS ENGINEER Return to the ED if you develop worsening [facility] Work Phone: Summary Purpose Family [...] 1 Concentration defici t (R41.840) Referral Organization [facility] Family Medicin e [place] Referring Provider First Name Claribel Referring Provider Last Name Abby Referring Provider Specialty Family Medi cine Referred Organization [facility] Counseli ng and Recovery [place] Referred Address [address] [place], [place],[address] Referred Provider Specialty Psychologist Referral Priority Routine Additional Source Comments INFORMATION SOURCE (unrecogn ized section and content) DATE CREATED AUTHOR 09/13/2017 [facility] DATE CREATED AUTHOR AUTHOR'S ORGANIZ ATION 05/25/2021 [facility] dical Specialist DATE CREATED AUTHOR AUTHOR'S ORGANIZ ATION 02/27/2022 [facility] DATE CREATED AUTHOR AUTHOR'S ORGANIZ ATION 07/15/2024 [facility] DATE CREATED AUTHOR AUTHOR'S ORGANIZ ATION 08/28/2024 [facility] dical Specialists EPIC REASON FOR VISIT (unrecogniz [...] November 25, 2023 End: November 25, 2023 Acid Leveler Relationship Specialty Start Date End Date Kb Hollis DO [address] [place] [address] PCP - General Family Medicine 04/12/23 Enoch Villalobos DO [address] [place] [address] PCP - [facility] 06/21/23 Acid Leveler Relationship Specialty Start Date End Date Kb Hollis DO [address] [place] [address] PCP - General Family Medicine 04/12/23 Enoch Villalobos DO [address] [place] [address] PCP - [facility] 06/21/23 Team Status: Inactive Member Role Status [...] April 05, 2024 End: April 05, 2024 Acid Leveler Relationship Specialty Start Date End Date Kb Hollis DO [address] [place] [address] PCP - General Family Medicine 04/12/23 Enoch Villalobos DO [address] [place] [address] PCP - [facility] 06/21/23 5 Team Status: Inactive Member Role [...] May 19, 2024 End: May 19, 2024 Acid Leveler Relationship Specialty Start Date End Date Kb Hollis DO [address] [place] [address] PCP - General Family Medicine 04/12/23 Enoch Villalobos DO [address] [place] [address] PCP - [facility] 06/21/23 5 Acid Leveler Relationship Specialty Start Date End Date Kb Hollis DO [address] [place] [address] PCP - General Family Medicine 04/12/23 Enoch Villalobos DO [address] [place] [address] PCP - [facility] 06/21/23 5 Acid Leveler Relationship Specialty Start Date End Date Kb Hollis DO [address] [place] [address] PCP - General Family Medicine 04/12/23 Enoch Villalobos DO [address] [place] [address] PCP - [facility] 06/21/23 5 Team Status: Inactive Member Role Status Dates Yaz Hollis DO Primary Care Provider Active Start: June 07, 2024 End: June 07, 2024 Mateo Navas DO Emergency Provider Active Sta rt: June 07, 2024 End: June 07, 2024 Acid Leveler Relationship Specialty Start Date End Date Kb Hollis DO [address] [place] [address] PCP - General Family Medicine 04/12/23 Enoch Villalobos DO [address] [place] [address] PCP - [facility] 06/21/23 5 Acid Leveler Relationship Specialty Start Date End Date Kb Hollis DO [address] [place] [address] PCP - General Family Medicine 04/12/23 Enoch Villalobos DO [address] [place] [address] PCP - [facility] 06/21/23 5 Team Status: Inactive Member Role Status Dates Yaz Hollis DO Primary Care Provider Active Start: June 29, 2024 End: June 29, 2024 Parminder Powell PA-C Emergency Provider Active Start: June 29, 2024 End: June 29, 2024 Acid Leveler Relationship Specialty Start Date End Date Kb Hollis DO [address] [place] [address] PCP - General Family Medicine 04/12/23 Enoch Villalobos DO [address] [place] [address] PCP - [facility] 06/21/232 5 Acid Leveler Relationship Specialty Start Date End Date Kb Hollis DO [address] [place] [address] PCP - General Family Medicine 04/12/23 Enoch Villalobos DO [address] [place] [address] PCP - [facility] [place] [facility] 06/21/23 5 Acid Leveler Relationship Specialty Start Date End Date Kb Hollis DO [address] [place] [address] PCP - General Family Medicine 04/12/23 Enoch Villalobos, DO [address] [place] [address] PCP - [facility] [place] [facility] 06/21/23 5 Acid Leveler Relationship Specialty Start Date End Date Kb Hollis DO [address] [place] [address] PCP - General Family Medicine 04/12/23 Enoch Villalobos, [address] [place] [address] PCP - [facility] 06/21/23 5 Goals (unrecognized section and content) [...] BE BASED ON THE PRIMARY CLINICAL RECORDS. [employer] [facility]. provides no warranty or guarantee of the accuracy or completeness of [phone] in [phone] [id number]
[2024-09-08] MEDS: 0.9 % SODIUM CHLORIDE 1,000 ML 999 ML IV (16:52)
[2024-09-08] MEDS: ONDANSETRON PF 4 MG/2 ML VIAL IV (16:58)
[2024-09-08] MEDS: 0.9 % SODIUM CHLORIDE 1,000 ML 150 ML IV (18:04)
[2024-09-08] MEDS: PROMETHAZINE HCL 25 MG in 0.9 % SODIUM CHLORIDE 50 ML 204 MG IV (18:20)
== END 2024-09-08 19:55 | disposition home or self-care (01) ==
PROVIDERS: Admitting Provider Obstetrics & Gynecology; PCP Family Medicine; Visit Provider Obstetrics & Gynecology
DX: O21.2 Late vomiting of pregnancy (principal); Z3A.33 33 weeks gestation of pregnancy
CPT/HCPCS: 59025; 96361; 96365; 96366; 96375; G0378; G0379; J2405; J2550

== ENCOUNTER 2024-09-09 07:30 | Observation (INO) | payer MEDICAID, SELFPAY ==
[2024-09-09 07:34] VITALS: BP 127/79; PULSE 85; TEMP 36.9; O2SAT 99; BMI 29.2
--- OUTSIDE RECORDS SUMMARY | 2024-09-09 07:41 | XMS_ITS | CCD ---
Author Organization [facility] Care Team Providers Care Painter Maintenance Name Role Phone PRIYANKA, CHRISTOPHER Unavailable Unavailable [...] Provider Unavai Parminder Sorto PA-C Emergency Provider [phone] Enoch Villalobos DO Unavailable [phone] Glenn Abdullahi APRN Emergency Provider [phone] Yaz Hollis DO Primary Care Provider Parminder Powell PA-C Emergency Provider Glenn Abdullahi APRN Emergency Provider Mateo Navas DO Emergency Provider Yaz Hollis Primary Care Unavailable Surjit Stanton Admitting Unavailable Surjit Stanton Attending Unavailable Yaz Hollis Primary Care Unavailable Parminder Powell Admitting Unavailable Parminder Powell Attending Unavailable Yaz oHllis Primary Care Unavailable Kaylen, Glenn Admitting Unavailable [...] source) black walnut pollen extract Drug Allergy [facility] Repository (8 sources) Codeine Drug Allergy 04-28-19 21 Hives [facility] Repository (8 sources) Penicillins Drug allergy (disorder) 04-28-19 21 [facility] Repository (1 source) Plasmin Drug Allergy 10-17-19 22 [facility] Repository (1 source) Sulfamethoxazole / Trimethoprim Drug Allergy 10-17-19 22 [facility] Repository (1 source) Sulfonamides (Antibiotic) Drug allergy (disorder) 10-17-19 22 [facility] Repository (20 sources) Codeine Drug Allergy 04-07-19 24 hives, Unknown [facility] Work Phone: (9 sources) Penicillin Drug Allergy [facility] [employer] Other (9 sources) Sulfamethoxazole / Trimethoprim Drug Allergy [facility] [employer] Other (13 sources) Sulfamethoxazole; Translations: [sulfamethoxazole] Drug Allergy 04-28-19 21 Swelling of Lip/Tongue/Thr oat, Swelling of Lip/Tongue/Thr oat, [facility] (13 sources) Trimethoprim; Translations: [trimethoprim] Drug Allergy 04-28-19 21 Swelling of Lip/Tongue/Thr oat, Swelling of Lip/Tongue/Thr oat, hives [place] (18 sources) penicillAMINE Drug Allergy 04-07-19 Unknown [facility] (18 sources) Penicillin G Drug Allergy 04-12-19 [facility] Work Phone: (18 sources) Sulfamethoxazole / Trimethoprim Drug Allergy 04-12-19 [facility] (18 sources) Sulfonamides (Antibiotic) Drug Allergy 04-07-19 Unknown [facility] (18 sources) SUMAtriptan Drug Allergy 04-07-19 [facility] (1 source) Codeine Drug Allergy 06-30-19 [place] Repository (1 source) Penicillins Drug allergy (disorder) 06-30-19 [place] Repository (5 sources) Penicillins Drug Allergy 11-25-19 [facility] Medications Current Medications Medication Drug Class(es) Dates [...] (D-Care Glucometer) w/Device kit Indications: Third trimester ([facility]) , Gestational diabetes mellitus (GDM), antepartum, gestational diabetes method of control unspecified ([facility]) , Elevated glucose tolerance test 1 kit [...] Pad) 70 % pads Indications: Third trimester ([facility]) , Gestational diabetes mellitus (GDM), antepartum, gestational diabetes method of control unspecified ([facility]) , Elevated glucose tolerance test [...] MG tablet Indications: Nausea and vomiting in ([facility]) Take 1 tablet (10 mg) [...] MG tablet Indications: Nausea and vomiting during ([facility]) Take 1 tablet (4 mg) by mouth every 6 (six) hours 30 tablet 2 08/10/2024 09/09/2024 Active Start: 07-06-2024 take 1 tablet by deshawn th every eight hours for nausea ondansetron ODT (Zofran-ODT) 4 MG disintegrating tablet Indications: Nausea and vomiting in ([facility]) Take 1 tablet (4 mg) by mouth [...] (180 Fe) MG capsule Indications: Third trimester ([facility]) , Anemia affecting in third trimester ([facility]) Take 1 capsule (391.3 mg) by mouth Daily 30 capsule 6 08/28/2024 09/27/2024 Active promethazine hydrochloride 12.5 mg oral tablet (17 sources) Phenothiazine Start: 06-21-2024 End: 09-19-2024 take 1 tablet by mouth every six hours for nausea promethazine (Phenergan) 12.5 MG tablet Indications: Nausea and vomiting in ([facility]) Take 1 tablet (12.5 mg) by mouth [...] 15, 2017 1:00am May 16, 2017 1:07am Fk-Fd-Kvfe-Fa-Herb al Cmplx#190 (Vitamin D3 Complete) 18 mg iron-800 mcg-150 mg Tablet (7 sources) Start: 05-09-2017 End: 06-05-2017 Le-Tv-Iajd-Fa-Her bal Cmplx#190 (Vitamin D3 Complete) 18 mg iron-800 mcg-150 mg Tablet Discontinued TABLET May 09, 2017 12:00am June 05, 2017 12:56pm Start: 05-09-2017 End: 06-05-2017 Ae-Om-Qtfh-Fa-Herbal Cmplx#1 90 (Vitamin D3 Complete) 18 mg [...] OB BPP W NON-STRESS on 09-08-2024 [place] [address] Ultrasound Report Signed Patient: NICOLE FARRIS MR#: [id number] : 1995 Acct:[id number] Age/Sex: 29 / F ADM Date: Loc: [facility] 250-[address]: Jaguar Quintero D.O. Ordering Physician: Jaguar Quintero D.O. Date of Service: 09/07/24 Procedure(s): US OB BPP w non-stress Accession Number(s): [id number] cc: Jaguar Quintero D.O.; Jimy HOLLIS [place] [address] Patient Name: NICOLE FARRIS MRN: [facility]:[id number] date: 1995 Sex: F Assigned Patient Location: [facility] Current Patient Location: [facility] Accession/Order Number: [id number] Exam Date: 09/08/2024 08:20 Report Date: 09/08/2024 [...] Barbosa M.D. 09/08/2024 8:22 AM Dictation Location: [place] [address] Electronically authenticated by: [id number] Y Date: 09/08/2024 08:22 Dictated By: Priscila Barbosa M.D. Signed By: 09/08/2424 DD/ 0822 TD/TT: Nremt: [facility] Radiology, Radiologparth cifuentes MD - 09/08/2024 [place] [address] Ultrasound Report Signed Patient: NICOLE FARRIS MR#: [id number] : 1995 Acct:[id number] Age/Sex: 29 / F ADM Date: Loc: [facility] 250-[address]: Jaguar Quintero D.O. Ordering Physician: Jaguar Quintero D.O. Date of Service: 09/07/24 Procedure(s): US OB BPP w non-stress Accession Number(s): [id number] cc: Jaugar Quintero D.O.; Jimy HOLLIS [place] [id number] Patient Name: NICOLE FARRIS MRN: [facility]:[id number] date: 1995 Sex: F Assigned Patient Location: [facility] Current Patient Location: [facility] Accession/Order Number: [id number] Exam Date: 09/08/2024 08:20 Report Date: 09/08/2024 [...] Barbosa M.D. 09/08/2024 8:22 AM Dictation Location: [place] [address] Electronically authenticated by: [id number] Y Date: 09/08/2024 08:22 Dictated By: Priscila Barbosa M.D. Signed By: 09/08/24823 DD/ 1 TD/TT: Nremt: [facility] Radiology Study observation (narrative) [facility] US OB BPP W NON-STRESS Ordered By: Radiologist Radiology on 09-08-2024 [facility] Work Phone: US OB GROWTHon 09-06-2024 [place] [address] Ultrasound Report Signed Patient: NICOLE FARRIS MR#: [id number] : 1995 Acct:[id number] Age/Sex: 29 / F ADM Date: 09/05/24 Loc: US Attending Dr: Corby Royal Ordering Physician: Corby Royal Date of Service: 09/05/24 Procedure(s): US OB growth Accession Number(s): [id number] cc: Corby Royal; Jimy HOLLIS [place] [id number] Patient Name: NICOLE FARRIS MRN: [id number] date: 1995 Sex: F Assigned Patient Location: [facility] Current Patient Location: [facility] Accession/Order Number: [id number] Exam Date: 09/06/2024 07:48 Report Date: 09/06/2024 [...] Hurtado M.D. 09/06/2024 7:50 AM Dictation Location: [place] [address] Electronically authenticated by: [id number] Y Date: 09/06/2024 07:50 Dictated By: Mikie Hurtado D.O. Signed By: 09/06/24 0753 DD/ 0750 TD/TT: Nremt: [facility] Radiology, Radiologparth cifuentes MD - 09/06/2024 [place] [address] Ultrasound Report Signed Patient: NICOLE FARRIS MR#: [id number] : 1995 Acct:[id number] Age/Sex: 29 / F ADM Date: 09/05/24 Loc: US Attending Dr: Corby Royal Ordering Physician: Corby Royal Date of Service: 09/05/24 Procedure(s): US OB growth Accession Number(s): [id number] cc: Corby Royal; Jimy HOLLIS [place] [id number] Patient Name: NICOLE FARRIS MRN: [facility]:[id number] date: 1995 Sex: F Assigned Patient Location: [facility] Current Patient Location: [facility] Accession/Order Number: [id number] Exam Date: 09/06/2024 07:48 Report Date: 09/06/2024 [...] Hurtado M.D. 09/06/2024 7:50 AM Dictation Location: [place] [address] Electronically authenticated by: [id number] Y Date: 09/06/2024 07:50 Dictated By: Mikie Hurtado D.O. Signed By: 09/06/24 0753 DD/ 9 TD/TT: Nremt: [facility] Radiology Study observation (narrative) [facility] OB GROWTHOrdered By: Radi ologist Radiology on 09-06-2024 [facility] Work Phone: Urinalysis macro (dipstick) panel (U)on 08-28-2024 Bilirubin, UA Negative Negative - 4(70) +++ mg/dL [facility] Blood, UA Negative Negative - 50 Josiah/mcL [facility] Clarity, UA Clear [facility] Color, UA Felisha [facility] Glucose, UA Negative Negative - 2000(110) ++++ mg/dL [facility] Interpretation and review of laboratory results Abnormal [facility] Ketones, UA Positive Negative - 160(16) ++++ mg/dL [facility] Comment on above: 15 Leukocytes, UA Positive Negative - 500+++ Archana/mcL [facility] Comment on above: small Nitrite, UA Negative Negative - Positive [facility] pH, UA 6.5 5 - 9 [facility] Protein, UA Trace Negative - 2000(20) ++++ mg/dL [facility] Spec Grav, UA 1.025 1 - 1.03 [facility] Urobilinogen, UA 1.0 0.2 - 12 mg/dL [facility] US OB LIMITED 1+ FETUSESon 0 07-19-2024 [...] II, MD, PHD at 23-Jul-2024 08:53:16 PM [facility] Normal Not Available Comment on above: Order Comment: US OB PLACENTA W US OB TRANSVAGINAL Estimated Date of Delivery: 10/27/24 Gestational Age as of 06/21/2024: 21w5d Urinalysis macro (dipstick) panel (U)on 07-19-2024 Bilirubin, UA Negative Negative - 4(70) +++ mg/dL [facility] Blood, UA Negative Negative - 50 Josiah/mcL [facility] Clarity, UA Clear [facility] Color, UA Yellow [facility] Glucose, UA Negative Negative - 2000(110) ++++ mg/dL [facility] Interpretation and review of laboratory results Abnormal [facility] Ketones, UA Negative Negative - 160(16) ++++ mg/dL [facility] Leukocytes, UA Trace Negative - 500+++ Archana/mcL [facility] Nitrite, UA Negative Negative - Positive [facility] pH, UA 7 5 - 9 [facility] Protein, UA Negative Negative - 2000(20) ++++ mg/dL [facility] Spec Grav, UA 1.02 1 - 1.03 [facility] Urobilinogen, UA 0.2 0.2 - 12 mg/dL [facility] Alanine aminotransferase [En zymatic activity/volume] in Serum or PlasmaOrdered By: Parminedr Powell on 06-29-2024 ALT [Catalytic activity/Vol] Alanine aminotransferase [Enzymatic activity/volume] in Serum or Plasma 7-52 [place] Albumin [Mass/volume] in Ser um or Plasma by Bromocresol green (BCG) dye binding methoOrdered By: Parminder Powell on 06-29-2024 Albumin BCG dye [Mass/Vol] Albumin [Mass/volume] in Serum or Plasma by Bromocresol green (BCG) dye binding metho 3.5-5.7 [place] Alkaline phosphatase [Enzyma tic activity/volume] in Serum or PlasmaOrdered By: Parminder Powell on 06-29-2024 ALP [Catalytic activity/Vol] Alkaline phosphatase [Enzymatic activity/volume] in Serum or Plasma 34-104 [place] Amphetamine Screen Ql (U)Ord ered By: Parminder Powell on 06-29-2024 Amphetamines Ql (U) Amphetamines screen Negativ e [place] Appearance of UrineOrdered B y: Parminder Powell on 06-29-2024 Appearance (U) Urine appearance Abnormal Clear [facility] Aspartate aminotransferase [ Enzymatic activity/volume] in Serum or PlasmaOrdered By: Parminder Powell on 06-29-2024 AST [Catalytic activity/Vol] Aspartate aminotransferase [Enzymatic activity/volume] in Serum or Plasma Low 13-39 [place] Bacteria [Presence] in Urine by AutomatedOrdered By: Parminder Powell on 06-29-2024 Bacteria Auto Ql (U) Bacteria [Presence] in Urine by Automated None Seen [place] Barbiturates [Presence] in U rine by Screen methodOrdered By: Parminder Powell on 06-29-2024 Barbiturates Screen Ql (U) Barbiturates [Presence] in Urine by Screen method Negative [place] Basophils Auto (Bld) [#/Vol] Ordered By: Parminder Powell on 06-29-2024 Basophils (Bld) [#/Vol] Automated basophil count 0.0-0.2 [facility] Basophils/100 WBC Auto (Bld) Ordered By: Parminder Powell on 06-29-2024 Basophils/100 WBC (Bld) Automated basophil % . [place] Benzodiazepines Screen Ql (U )Ordered By: Parminder Powell on 06-29-2024 Benzodiazepines Ql (U) Benzodiazepines [Presence] in Urine by Screen method Negative [place] Benzoylecgonine [Presence] i n Urine by Screen methodOrdered By: Parminder Powell on 06-29-2024 Benzoylecgonine Screen Ql (U) Benzoylecgonine [Presence] in Urine by Screen method Negative [place] Bilirubin Test strip Ql (U)O rdered By: Parminder Powell on 06-29-2024 Bilirubin Ql (U) Bilirubin.total [Pre sence] in Urine by Test strip Negative [place] Bilirubin.total [Mass/volume ] in Serum or PlasmaOrdered By: Parminder Powell on 06-29-2024 Bilirubin [Mass/Vol] Bilirubin.total [Mass/volume] in Serum or Plasma 0.3-1.0 [place] Calcium [Mass/volume] in Ser um or PlasmaOrdered By: Parminder Powell on 06-29-2024 Calcium [Mass/Vol] Calcium [Mass/volume ] in Serum or Plasma 8.6-10.3 [place] Cannabinoids [Presence] in U rine by Screen methodOrdered By: Parimnder Powell on 06-29-2024 Cannabinoids Screen Ql (U) Cannabinoids [Presence] in Urine by Screen method High Negative [place] Comment on above: These are unconfirme d [...] [Moles/volume] in Serum or Plasma Low 21.0-31.0 [place] Chloride [Moles/volume] in S mayte or PlasmaOrdered By: Parminder Powell on 06-29-2024 Chloride [Moles/Vol] Chloride [Moles/vol ume] in Serum or Plasma 98-107 [place] Color Auto (U)Ordered By: Eduar Powell on 06-29-2024 Color (U) Color of Urine by Auto Yellow [facility] Count Auto Di ffon 06-29-2024 Basophils (Bld) [#/Vol] 0.0 10*3/uL Normal 0.0-0.2 [facility] Comment on above: Result Comment: PERF ORMED BY: [place] [address] PATHOLOGIST [employer] SARAH ANDREWS M.D. Performed By: #### H EPATIC, CBC, BMP, LIPASE #### [facility] [address] Basophils/100 WBC (Bld) 0.3 % Normal . [facility] Comment on above: Performed By: #### H EPATIC, CBC, BMP, LIPASE #### [address] Eosinophils (Bld) [#/Vol] 0.0 10*3/uL Normal 0.0-0.45 [facility] Comment on above: Performed By: #### H EPATIC, CBC, BMP, LIPASE #### [address] Eosinophils/100 WBC (Bld) 0.0 % Normal . [facility] Comment on above: Performed By: #### H EPATIC, CBC, BMP, LIPASE #### [address] Erythrocyte distribution width (RBC) [Ratio] 14.2 % Normal 11.9-15.3 [facility] Comment on above: Performed By: #### H EPATIC, CBC, BMP, LIPASE #### [address] Hematocrit (Bld) [Volume fraction] 31.2 % Low 34.0-46.4 [facility] Comment on above: Performed By: #### H EPATIC, CBC, BMP, LIPASE #### [address] Hemoglobin (Bld) [Mass/Vol] 10.3 g/dL Low 11.8-15.4 [facility] Comment on above: Performed By: #### H EPATIC, CBC, BMP, LIPASE #### [address] Lymphocytes (Bld) [#/Vol] 0.7 10*3/uL Low 1.00-4.8 [facility] Comment on above: Performed By: #### H EPATIC, CBC, BMP, LIPASE #### [address] Lymphocytes/100 WBC (Bld) 6.0 % Normal . [facility] Comment on above: Performed By: #### H EPATIC, CBC, BMP, LIPASE #### [address] MCH (RBC) [Entitic mass] 27.9 pg Normal 24.7-34.3 [facility] Comment on above: Performed By: #### H EPATIC, CBC, BMP, LIPASE #### [address] MCV (RBC) [Entitic vol] 84.8 fL Normal 80-100 [facility] Comment on above: Performed By: #### H EPATIC, CBC, BMP, LIPASE #### [address] Mean Corpuscular HGB Conc 32.9 g/dL Normal 32.0-35.0 [facility] Comment on above: Performed By: #### H EPATIC, CBC, BMP, LIPASE #### [address] Monocytes (Bld) [#/Vol] 0.2 10*3/uL Normal 0.0-0.8 [facility] Comment on above: Performed By: #### H EPATIC, CBC, BMP, LIPASE #### [address] Monocytes/100 WBC (Bld) 20.01 % High 0.00-20.00 [facility] Comment on above: Result Comment: For adults in ED, MDW > 20.0 may be associated with a higher risk of sepsis during the first 12 hrs of hospital admission Performed By: #### H EPATIC, CBC, BMP, LIPASE #### [address] Monocytes/100 WBC (Bld) 1.9 % Normal . [facility] Comment on above: Performed By: #### H EPATIC, CBC, BMP, LIPASE #### [address] Neutrophils (Bld) [#/Vol] 10.5 10*3/uL High 1.8-7.7 [facility] Comment on above: Performed By: #### H EPATIC, CBC, BMP, LIPASE #### [address] Neutrophils/100 WBC (Bld) 91.8 % Normal . [facility] Comment on above: Performed By: #### H EPATIC, CBC, BMP, LIPASE #### [address] NRBC% 0.1 /100{WBC} Normal 0-0.5 [facility] Comment on above: Performed By: #### H EPATIC, CBC, BMP, LIPASE #### [address] Platelet mean volume (Bld) [Entitic vol] 11.0 fL High 6.3-10.[address] [facility] Comment on above: Performed By: #### H EPATIC, CBC, BMP, LIPASE #### [address] Platelets (Bld) [#/Vol] 206 10*3/uL Normal 150-450 [facility] Comment on above: Performed By: #### H EPATIC, CBC, BMP, LIPASE #### [address] RBC (Bld) [#/Vol] 3.69 10*6/uL Normal 3.60-5.00 [facility] Comment on above: Performed By: #### H EPATIC, CBC, BMP, LIPASE #### [address] WBC (Bld) [#/Vol] 11.4 10*3/uL Normal 3.8-11.6 [facility] Comment on above: Performed By: #### H EPATIC, CBC, BMP, LIPASE #### [address] Comprehensive Metabolic Pane blanquita 06-29-2024 Albumin [Mass/Vol] 3.8 g/dL Normal 3.5-5.7 [facility] Comment on above: Performed By: #### H EPATIC, CBC, BMP, LIPASE #### [address] Albumin/Globulin [Mass ratio] 1.0 {ratio} Normal [facility] Comment on above: Performed By: #### H EPATIC, CBC, BMP, LIPASE #### [address] ALP [Catalytic activity/Vol] 53 U/L Normal 34-104 [facility] Comment on above: Performed By: #### H EPATIC, CBC, BMP, LIPASE #### [address] ALT [Catalytic activity/Vol] 7 U/L Normal 7-52 [facility] Comment on above: Performed By: #### H EPATIC, CBC, BMP, LIPASE #### [address] Anion gap [Moles/Vol] Not performed Normal 6.0-15.0 [facility] Comment on above: Performed By: #### H EPATIC, CBC, BMP, LIPASE #### [address] Aspartate Amino Transferase Normal 13-39 [facility] Comment on above: Result Comment: Spec imen hemolyzed, redraw requested Performed By: #### H EPATIC, CBC, BMP, LIPASE #### [address] Bilirubin [Mass/Vol] 0.5 mg/dL Normal 0.3-1.0 [facility] Comment on above: Performed By: #### H EPATIC, CBC, BMP, LIPASE #### [address] Calcium [Mass/Vol] 9.5 mg/dL Normal 8.6-10.3 [facility] Comment on above: Performed By: #### H EPATIC, CBC, BMP, LIPASE #### [address] Chloride [Moles/Vol] 106 mmol/L Normal 98-107 [facility] Comment on above: Performed By: #### H EPATIC, CBC, BMP, LIPASE #### [place] [address] [place] CO2 [Moles/Vol] 19.4 mmol/L Low 21.0-31.0 [facility] Comment on above: Performed By: #### H EPATIC, CBC, BMP, LIPASE #### [facility] [address] Creatinine [Mass/Vol] 0.44 mg/dL Low 0.60-1.20 [facility] Comment on above: Performed By: #### H EPATIC, CBC, BMP, LIPASE #### [address] Creatinine Clr Calc Pharmacy 173.12 Normal [facility] Comment on above: Performed By: #### H EPATIC, CBC, BMP, LIPASE #### [address] GFR/1.73 sq M.predicted MDRD (S/P/Bld) [Vol rate/Area] mL/min/{1.73_m2} Normal [facility] Comment on above: Performed By: #### H EPATIC, CBC, BMP, LIPASE #### [address] Globulin (S) [Mass/Vol] 3.7 g/dL Normal [facility] Comment on above: Performed By: #### H EPATIC, CBC, BMP, LIPASE #### [address] Glucose [Mass/Vol] 130 mg/dL High 70-100 [facility] Comment on above: Result Comment: [facility] Glucose Reference Range is dependent on time and content of last meal. Glucose of more than 200 mg/dL in a nonstressed, ambulatory subject supports the diagnosis of Diabetes Mellitus. ADA recommended reference range Performed By: #### H EPATIC, CBC, BMP, LIPASE #### [address] Potassium Normal 3.5-5.1 [facility] Comment on above: Result Comment: Spec imen hemolyzed, redraw requested Performed By: #### H EPATIC, CBC, BMP, LIPASE #### [address] Protein [Mass/Vol] 7.5 g/dL Normal 6.4-8.9 [facility] Comment on above: Performed By: #### H EPATIC, CBC, BMP, LIPASE #### [facility] [address] Sodium [Moles/Vol] 138 mmol/L Normal 136-145 [facility] Comment on above: Performed By: #### H EPATIC, CBC, BMP, LIPASE #### [facility] [address] Urea nitrogen [Mass/Vol] 8 mg/dL Normal 7-25 [facility] Comment on above: Performed By: #### H EPATIC, CBC, BMP, LIPASE #### [address] Creatinine [Mass/volume] in Serum or PlasmaOrdered By: Parminder Powell on 06-29-2024 Creatinine [Mass/Vol] Creatinine [Mass/v olume] in Serum or Plasma Low 0.60-1.20 [place] Crystals [Presence] in Urine by AutomatedOrdered By: Parminder Powell on 06-29-2024 Crystals Auto Ql (U) Crystals [Presence] in Urine by Automated [place] Dipstick and Microscopicon 0 06-29-2024 Appearance (U) Cloudy Critically abnormal Clear [facility] Comment on above: Order Comment: Name Collection Type:: Clean-Voided Midstream Performed By: #### A DDONUAPLUS, URDS, CUU #### [facility] [address] [place] [address] [place] Bacteria,Urine Rare Normal None Seen [facility] Comment on above: Order Comment: Name Collection Type:: Clean-Voided Midstream Performed By: #### A DDONUAPLUS, URDS, CUU #### [facility] [address] [place] [address] [place] Bilirubin,Urine Negative Normal Negative [facility] Comment on above: Order Comment: Name Collection Type:: Clean-Voided Midstream Performed By: #### A DDONUAPLUS, URDS, CUU #### [address] Color (U) Light-Yellow Normal Yellow [facility] Comment on above: Order Comment: Name Collection Type:: Clean-Voided Midstream Performed By: #### A DDONUAPLUS, URDS, CUU #### [address] Glucose Ql (U) 50 mg/dL High Normal [facility] Comment on above: Order Comment: Name Collection Type:: Clean-Voided Midstream Performed By: #### A DDONUAPLUS, URDS, CUU #### [place] [address] [place] Hyaline Casts,Urine None Normal 0-[address] [facility] Comment on above: Order Comment: Name Collection Type:: Clean-Voided Midstream Performed By: #### A DDONUAPLUS, URDS, CUU #### [address] Ketones Ql (U) 4+ High Negative [facility] Comment on above: Order Comment: Name Collection Type:: Clean-Voided Midstream Performed By: #### A DDONUAPLUS, URDS, CUU #### [address] Leukocyte esterase Test strip Ql (U) 3+ High Negative [facility] Comment on above: Order Comment: Name Collection Type:: Clean-Voided Midstream Performed By: #### A DDONUAPLUS, URDS, CUU #### [place] [address] [place] Mucus,Urine Rare Normal [facility] Comment on above: Order Comment: Name Collection Type:: Clean-Voided Midstream Result Comment: PERF ORMED BY: [place] [address] PATHOLOGIST [employer] SAL[employer] ASSOCIATE SARAH ANDREWS M.D. Performed By: #### A DDONUAPLUS, URDS, CUU #### [place] [address] [place] Nitrite,Urine Negative Normal Negative [facility] Comment on above: Order Comment: Name Collection Type:: Clean-Voided Midstream Performed By: #### A DDONUAPLUS, URDS, CUU #### [address] Occult Blood,Urine Negative Normal Negative [facility] Comment on above: Order Comment: Name Collection Type:: Clean-Voided Midstream Result Comment: PERF ORMED BY: [place] [address] PATHOLOGIST [employer] SALES ASSOCIATE SARAH ANDREWS M.D. Performed By: #### A DDONUAPLUS, URDS, CUU #### [address] Othe Crystals,Urine 2+ Normal [facility] Comment on above: Order Comment: Name Collection Type:: Clean-Voided Midstream Performed By: #### A DDONUAPLUS, URDS, CUU #### [place] [address] [place] pH (U) 8.5 [pH] Normal 5.0-9.0 [facility] Comment on above: Order Comment: Name Collection Type:: Clean-Voided Midstream Performed By: #### A DDONUAPLUS, URDS, CUU #### [address] Protein (U) [Mass/Vol] 30 mg/dL High Negative [facility] Comment on above: Order Comment: Name Collection Type:: Clean-Voided Midstream Performed By: #### A DDONUAPLUS, URDS, CUU #### [place] [address] [place] RBC,Urine 3-4 Normal 0-4 [facility] Comment on above: Order Comment: Name Collection Type:: Clean-Voided Midstream Performed By: #### A DDONUAPLUS, URDS, CUU #### [place] [address] [place] Specificy [place],Urine 1.019 Normal 1.001-1.03 0 [facility] Comment on above: Order Comment: Name Collection Type:: Clean-Voided Midstream Performed By: #### A DDONUAPLUS, URDS, CUU #### [address] Squamous Epithelial Cell,Urine 5-9 High 0-2 [facility] Comment on above: Order Comment: Name Collection Type:: Clean-Voided Midstream Performed By: #### A DDONUAPLUS, URDS, CUU #### [place] [address] [place] Urobilinogen,Urine Normal Normal Normal [facility] Comment on above: Order Comment: Name Collection Type:: Clean-Voided Midstream Performed By: #### A DDONUAPLUS, URDS, CUU #### [address] WBC,Urine 10-19 High 0-4 [facility] Comment on above: Order Comment: Name Collection Type:: Clean-Voided Midstream Performed By: #### A DDONUAPLUS, URDS, CUU #### [place] [address] [place] Drug Screen,Urineon 06-30-19 25 Amphetamine Screen,Urine Negative Normal Negative [facility] Comment on above: Performed By: #### A DDONUAPLUS, URDS, CUU #### [place] [address] [place] Barbiturate Screen,Urine Negative Normal Negative [facility] Comment on above: Performed By: #### A DDONUAPLUS, URDS, CUU #### [place] [address] [place] Benzodiazepines Screen,Urine Negative Normal Negative [facility] Comment on above: Performed By: #### A DDONUAPLUS, URDS, CUU #### [address] Cannabinoid Screen,Urine Positive High Negative [facility] Comment on above: Result Comment: Thes e are unconfirmed results and should not be used for legal purposes. Drug Cut-Off Concentration: AMPH 1000 ng/mL DENIS 200 ng/mL DIOR 200 ng/mL COCM 300 ng/mL OP 300 ng/mL PCP 25 ng/mL THC 20 ng/mL PERFORMED BY: [place] [address] PATHOLOGIST [employer] ASSOCIATE SARAH ANDREWS M.D. Performed By: #### A DDONUAPLUS, URDS, CUU #### [address] Cocaine Screen,Urine Negative Normal Negative [facility] Comment on above: Performed By: #### A DDONUAPLUS, URDS, CUU #### [address] Opiate Screen,Urine Negative Normal Negative [facility] Comment on above: Performed By: #### A DDONUAPLUS, URDS, CUU #### [address] Phencyclidine Screen,Urine Negative Normal Negative [facility] Comment on above: Performed By: #### A DDONUAPLUS, URDS, CUU #### [address] ECG 12 lead ECGon 06-29-2024 ECG 12 lead ECG [facility] [place] [address] Electrocardiograph Report Signed Patient: Nicole Farris MR#: [id number] : 1995 Acct:[id number] Age/Sex: 28 / F ADM Date: 06/29/24 Loc: ER Room: Type: [facility] ER Attending Dr: Ordering Provider: Parminder [...] ECGs available Confirmed by SALUD SCHWARZ DO ([id number]) on 06/30/2024 7:11:38 PM Referred By: Electronically Signed By: SALUD SCHWARZ DO Transcribed By: MUS Signed By Salud Schwarz DO 06/30 191 Normal [facility] Eosinophils Auto (Bld) [#/Vo l]Ordered By: Parminder Powell on 06-29-2024 Eosinophils (Bld) [#/Vol] Automated eosinophil count 0.0-0.45 [facility] Eosinophils/100 WBC Auto (Bl d)Ordered By: Parminder Powell on 06-29-2024 Eosinophils/100 WBC (Bld) Automated eosinophil % . [place] Epithelial cells.squamous [# /area] in Urine sediment by Automated countOrdered By: Parminder Powell on 06-29-2024 Epithelial cells.squamous Auto (Urine sed) [#/Area] Epithelial cells.squamous [#/area] in Urine sediment by Automated count High 0-2 [place] Erythrocyte distribution wid th Auto (RBC) [Ratio]Ordered By: Parminder Powell on 06-29-2024 Erythrocyte distribution width (RBC) [Ratio] Erythrocyte distribution width [Ratio] by Automated count 11.9-15.3 [place] Erythrocytes [#/area] in Uri ne sediment by Automated countOrdered By: Parminder Powell on 06-29-2024 RBC Auto (Urine sed) [#/Area] Erythrocytes [#/area] in Urine sediment by Automated count 0-4 [place] Globulin Calc (S) [Mass/Vol] Ordered By: Parminder Powell on 06-29-2024 Globulin (S) [Mass/Vol] Serum globulin measurement by calculation (mass/volume) [place] Glucose [Mass/volume] in Ser um or PlasmaOrdered By: Parminder Powell on 06-29-2024 Glucose [Mass/Vol] Glucose [Mass/volume ] in Serum or Plasma High 70-100 [place] Comment on above: ADA recommended refe rence [...] in Urine by Test strip High Normal [place] Hematocrit Auto (Bld) [Volum e fraction]Ordered By: Parminder Powell on 06-29-2024 Hematocrit (Bld) [Volume fraction] Hematocrit [Volume Fraction] of Blood by Automated count Low 34.0-46.4 [place] Hemoglobin Test strip Ql (U) Ordered By: Parminder Powell on 06-29-2024 Hemoglobin Ql (U) Hemoglobin [Presence ] in Urine by Test strip Negative [place] Hemoglobin [Mass/volume] in BloodOrdered By: Parminder Powell on 06-29-2024 Hemoglobin (Bld) [Mass/Vol] Hemoglobin [Mass/volume] in Blood Low 11.8-15.4 [place] Hyaline casts [#/area] in Ur ine sediment by Automated countOrdered By: Parminder Powell on 06-29-2024 Hyaline casts Auto (Urine sed) [#/Area] Hyaline casts [#/area] in Urine sediment by Automated count 0-8 [place] Ketones Test strip Ql (U)Ord ered By: Parminder Powell on 06-29-2024 Ketones Ql (U) Ketones [Presence] i n Urine by Test strip High Negative [place] Leukocyte esterase [Presence ] in Urine by Test stripOrdered By: Parminder Powell on 06-29-2024 Leukocyte esterase Test strip Ql (U) Leukocyte esterase [Presence] in Urine by Test strip High Negative [place] Leukocytes [#/area] in Urine sediment by Automated countOrdered By: Parminder Powell on 06-29-2024 WBC Auto (Urine sed) [#/Area] Leukocytes [#/area] in Urine sediment by Automated count High 0-4 [place] Leukocytes [#/volume] correc rossy for nucleated erythrocytes in Blood by Automated counOrdered By: Parminder Powell on 06-29-2024 WBC corrected for nucl RBC Auto (Bld) [#/Vol] Leukocytes [#/volume] corrected for nucleated erythrocytes in Blood by Automated coun 3.8-11.6 [place] Lymphocytes Auto (Bld) [#/Vo l]Ordered By: Parminder Powell on 06-29-2024 Lymphocytes (Bld) [#/Vol] Lymphocytes [#/volume] in Blood by Automated count Low 1.00-4.8 [place] Lymphocytes/100 WBC Auto (Bl d)Ordered By: Parminder Powell on 06-29-2024 Lymphocytes/100 WBC (Bld) Lymphocytes/100 leukocytes in Blood by Automated count . [place] MCH Auto (RBC) [Entitic mass ]Ordered By: Parminder Powell on 06-29-2024 MCH (RBC) [Entitic mass] MCH [Entitic mass] by Automated count 24.7-34.3 [place] MCHC Auto (RBC) [Mass/Vol]Or dered By: Parminder Powell on 06-29-2024 MCHC (RBC) [Mass/Vol] MCHC [Mass/volume] by Automated count 32.0-35.0 [place] MCV Auto (RBC) [Entitic vol] Ordered By: Parminder Powell on 06-29-2024 MCV (RBC) [Entitic vol] MCV [Entitic volume] by Automated count 80-100 [place] Magnesiumon 06-29-2024 Magnesium Normal 1.9-2.7 [facility] Comment on above: Result Comment: Spec imen hemolyzed, redraw requested PERFORMED BY: [place] [address] PATHOLOGIST [employer] ASSOCIATE SARAH ANDREWS M.D. Performed By: #### H EPATIC, CBC, BMP, LIPASE #### [facility] [address] [place] [address] Magnesium [Mass/volume] in S mayte or PlasmaOrdered By: Parminder Powell on 06-29-2024 Magnesium [Mass/Vol] Magnesium [Mass/vol ume] in Serum or Plasma Low 1.9-2.7 [place] Monocyte distribution width [Entitic volume] in Blood by AutomatedOrdered By: Parminder Powell on 06-29-2024 Monocyte distribution width Auto (Bld) [Entitic vol] Monocyte distribution width [Entitic volume] in Blood by Automated High 0.00-20.00 [place] Comment on above: For adults in ED, MD W > 20.0 may be associated with a higher risk of sepsis during the first 12 hrs of hospital admission Monocytes Auto (Bld) [#/Vol] Ordered By: Parminder Powell on 06-29-2024 Monocytes (Bld) [#/Vol] Automated blood monocyte count 0.0-0.8 [place] Monocytes/100 WBC Auto (Bld) Ordered By: Parminder Powell on 06-29-2024 Monocytes/100 WBC (Bld) Automated monocyte % . [place] Mucus [Presence] in Urine by AutomatedOrdered By: Parminder Powell on 06-29-2024 Mucus Auto Ql (U) Mucus [Presence] in Urine by Automated [place] Neutrophils Auto (Bld) [#/Vo l]Ordered By: Parminder Powell on 06-29-2024 Neutrophils (Bld) [#/Vol] Neutrophils [#/volume] in Blood by Automated count High 1.8-7.7 [place] Neutrophils/100 WBC Auto (Bl d)Ordered By: Parminder Powell on 06-29-2024 Neutrophils/100 WBC (Bld) Automated neutrophil % . [place] Nitrite Test strip Ql (U)Ord ered By: Parminder Powell on 06-29-2024 Nitrite Ql (U) Nitrite [Presence] i n Urine by Test strip Negative [place] No Panel InformationOrdered By: Parminder Powell on 06-29-2024 Estimated GFR (CKD-EPI) > 60.0 mL/Min [place] [facility] Creatinine Clearance (Chem 173.12 [place] Nucleated erythrocytes [Pres ence] in Blood by Automated countOrdered By: Parminder Powell on 06-29-2024 Nucleated RBC Auto Ql (Bld) Nucleated erythrocytes [Presence] in Blood by Automated count 0-0.5 [place] Opiates [Presence] in Urine by Screen methodOrdered By: Parminder Powell on 06-29-2024 Opiates Screen Ql (U) Opiates [Presence] in Urine by Screen method Negative [place] Phencyclidine Screen Ql (U)O rdered By: Parminder Powell on 06-29-2024 Phencyclidine Ql (U) Phencyclidine [Pres ence] in Urine by Screen method Negative [place] Platelet mean volume Auto (B ld) [Entitic vol]Ordered By: Parminder Powell on 06-29-2024 Platelet mean volume (Bld) [Entitic vol] Platelet mean volume [Entitic volume] in Blood by Automated count High 6.3-10.7 [place] Platelets Auto (Bld) [#/Vol] Ordered By: Parminder Powell on 06-29-2024 Platelets (Bld) [#/Vol] Platelets [#/volume] in Blood by Automated count 150-450 [place] Potassium [Moles/volume] in Serum or PlasmaOrdered By: Parminder Powell on 06-29-2024 Potassium [Moles/Vol] Potassium [Moles/v olume] in Serum or Plasma 3.5-5.1 [place] Protein Test strip (U) [Mass /Vol]Ordered By: Parminder Powell on 06-29-2024 Protein (U) [Mass/Vol] Protein [Mass/volume] in Urine by Test strip High Negative [place] Protein [Mass/volume] in Ser um or PlasmaOrdered By: Parminder Powell on 06-29-2024 Protein [Mass/Vol] Protein [Mass/volume ] in Serum or Plasma 6.4-8.9 [place] RBC Auto (Bld) [#/Vol]Ordere d By: Parminder Powell on 06-29-2024 RBC (Bld) [#/Vol] Erythrocytes [#/volu me] in Blood by Automated count 3.60-5.00 [place] Redraw Shine 06-29-2024 AST [Catalytic activity/Vol] 10 U/L Low 13-39 [facility] Comment on above: Result Comment: PERF ORMED BY: [place] [address] PATHOLOGIST [employer] ASSOCIATE SARAH ANDREWS M.D. Performed By: #### H EPATIC, CBC, BMP, LIPASE #### [facility] [address] Redraw Magnesiumon Magnesium [Mass/Vol] 1.7 mg/dL Low 1.9-2.7 [facility] Comment on above: Performed By: #### H EPATIC, CBC, BMP, LIPASE #### [facility] [address] Redraw Potassiumon Potassium [Moles/Vol] 3.8 mmol/L Normal 3.5-5.1 [facility] Comment on above: Performed By: #### H EPATIC, CBC, BMP, LIPASE #### [facility] [address] Serum or plasma albumin/glob ulin mass ratioOrdered By: Parminder Powell on 06-29-2024 Albumin/Globulin [Mass ratio] Serum or plasma albumin/globulin mass ratio [place] Serum or plasma anion gap de terminationOrdered By: Parminder Powell on 06-29-2024 Anion gap [Moles/Vol] Serum or plasma an ion gap determination [place] Comment on above: Test not performed Sodium [Moles/volume] in Ser um or PlasmaOrdered By: Parminder Powell on 06-29-2024 Sodium [Moles/Vol] Sodium [Moles/volume ] in Serum or Plasma 136-145 [place] Specific gravity Test strip (U) [Rel density]Ordered By: Parminder Powell on 06-29-2024 Specific gravity (U) [Rel density] Specific gravity of Urine by Test strip 1.001-1.03 0 [place] Urea nitrogen [Mass/volume] in Serum or PlasmaOrdered By: Parminder Powell on 06-29-2024 Urea nitrogen [Mass/Vol] Urea nitrogen [Mass/volume] in Serum or Plasma 7-25 [place] Urine Cultureon 06-29-2024 Bacteria identified Cx Nom (U) <9,000 colonies/ml mixed bacterial skin contaminants 2 Days PERFORMED BY: [facility] [address] [place] [address] PATHOLOGIST [employer] ASSOCIATE SARAH ANDREWS M.D. Normal [facility] Comment on above: Performed By: #### A DDONUAPLUS, URDS, CUU #### [facility] [address] Urobilinogen Test strip (U) [Mass/Vol]Ordered By: Parminder Powell on 06-29-2024 Urobilinogen (U) [Mass/Vol] Urobilinogen [Mass/volume] in Urine by Test strip Normal [place] WBC Auto (Bld) [#/Vol]Ordere d By: Parminder Powell on 06-29-2024 WBC (Bld) [#/Vol] Leukocytes [#/volume ] in Blood by Automated count 3.8-11.6 [place] pH Test strip (U)Ordered By: Parminder Powell on 06-29-2024 pH (U) pH of Urine by Test strip 5.0-9.0 [place] Urinalysis macro (dipstick) panel (U)on 06-21-2024 Bilirubin, UA Negative Negative - 4(70) +++ mg/dL [facility] Blood, UA Negative Negative - 50 Josiah/mcL [facility] Clarity, UA Clear [facility] Color, UA Yellow [facility] Glucose, UA Negative Negative - 2000(110) ++++ mg/dL [facility] Interpretation and review of laboratory results Abnormal [facility] Ketones, UA Negative Negative - 160(16) ++++ mg/dL [facility] Leukocytes, UA Trace Negative - 500+++ Archana/mcL [facility] Nitrite, UA Negative Negative - Positive [facility] pH, UA 7 5 - 9 [facility] Protein, UA Trace Negative - 1999(20) ++++ mg/dL [facility] Spec Grav, UA 1.025 1 - 1.03 [facility] Urobilinogen, UA 0.2 0.2 - 12 mg/dL [facility] Alanine aminotransferase [En zymatic activity/volume] in Serum or PlasmaOrdered By: Mateo Navas on 06-07-2024 ALT [Catalytic activity/Vol] Alanine aminotransferase [Enzymatic activity/volume] in Serum or Plasma 7 [place] Albumin [Mass/volume] in Ser um or Plasma by Bromocresol green (BCG) dye binding methoOrdered By: Mateo Navas on 06-07-2024 Albumin BCG dye [Mass/Vol] Albumin [Mass/volume] in Serum or Plasma by Bromocresol green (BCG) dye binding metho 3.5-5.7 [place] Alkaline phosphatase [Enzyma tic activity/volume] in Serum or PlasmaOrdered By: Mateo Navas on 06-07-2024 ALP [Catalytic activity/Vol] Alkaline phosphatase [Enzymatic activity/volume] in Serum or Plasma 34-104 [place] Amphetamine Screen Ql (U)Ord ered By: Mateo Navas on 06-07-2024 Amphetamines Ql (U) Amphetamines screen Negativ e [place] Appearance of UrineOrdered B y: Mateo Navas on 06-07-2024 Appearance (U) Urine appearance Clear [facility] Aspartate aminotransferase [ Enzymatic activity/volume] in Serum or PlasmaOrdered By: Mateo Navas on 06-07-2024 AST [Catalytic activity/Vol] Aspartate aminotransferase [Enzymatic activity/volume] in Serum or Plasma Low 13-39 [place] Barbiturates [Presence] in U rine by Screen methodOrdered By: Mateo Navas on 06-07-2024 Barbiturates Screen Ql (U) Barbiturates [Presence] in Urine by Screen method Negative [place] Basic Metabolic Panelon 05-20 Anion gap [Moles/Vol] 12.8 mmol/L Normal 6.0-15.0 [facility] Comment on above: Performed By: #### H EPATIC, CBC, BMP, LIPASE #### [facility] [address] Calcium [Mass/Vol] 8.7 mg/dL Normal 8.6-10.3 [facility] Comment on above: Performed By: #### H EPATIC, CBC, BMP, LIPASE #### [facility] [address] [place] [address] [place] Chloride [Moles/Vol] 109 mmol/L High 98-107 [facility] Comment on above: Performed By: #### H EPATIC, CBC, BMP, LIPASE #### [facility] [address] [place] [id number] [place] CO2 [Moles/Vol] 19.6 mmol/L Low 21.0-31.0 [facility] Comment on above: Performed By: #### H EPATIC, CBC, BMP, LIPASE #### [facility] [address] [place] [id number] [place] Creatinine [Mass/Vol] 0.46 mg/dL Low 0.60-1.20 [facility] Comment on above: Performed By: #### H EPATIC, CBC, BMP, LIPASE #### [address] Creatinine Clr Calc Pharmacy 167.01 Normal [facility] Comment on above: Performed By: #### H EPATIC, CBC, BMP, LIPASE #### [address] GFR/1.73 sq M.predicted MDRD (S/P/Bld) [Vol rate/Area] mL/min/{1.73_m2} Normal [facility] Comment on above: Performed By: #### H EPATIC, CBC, BMP, LIPASE #### [address] Glucose [Mass/Vol] 156 mg/dL High 70-100 [facility] Comment on above: Result Comment: [place] Glucose Reference Range is dependent on time and content of last meal. Glucose of more than 200 mg/dL in a nonstressed, ambulatory subject supports the diagnosis of Diabetes Mellitus. ADA recommended reference range Performed By: #### H EPATIC, CBC, BMP, LIPASE #### [address] Potassium [Moles/Vol] 3.4 mmol/L Low 3.5-5.1 [facility] Comment on above: Performed By: #### H EPATIC, CBC, BMP, LIPASE #### [address] Sodium [Moles/Vol] 138 mmol/L Normal 136-145 [facility] Comment on above: Performed By: #### H EPATIC, CBC, BMP, LIPASE #### [address] Urea nitrogen [Mass/Vol] 6 mg/dL Low 7-25 [facility] Comment on above: Performed By: #### H EPATIC, CBC, BMP, LIPASE #### [address] Basophils Auto (Bld) [#/Vol] Ordered By: Mateo aNvas on 06-07-2024 Basophils (Bld) [#/Vol] Automated basophil count 0.0-0.2 [facility] Basophils/100 WBC Auto (Bld) Ordered By: Mateo Navas on 06-07-2024 Basophils/100 WBC (Bld) Automated basophil % . [place] Benzodiazepines Screen Ql (U )Ordered By: Mateo Navas on 06-07-2024 Benzodiazepines Ql (U) Benzodiazepines [Presence] in Urine by Screen method Negative [place] Benzoylecgonine [Presence] i n Urine by Screen methodOrdered By: Mateo Navas on 06-07-2024 Benzoylecgonine Screen Ql (U) Benzoylecgonine [Presence] in Urine by Screen method Negative [place] Bilirubin Test strip Ql (U)O rdered By: Mateo Navas on 06-07-2024 Bilirubin Ql (U) Bilirubin.total [Pre sence] in Urine by Test strip Negative [place] Bilirubin.direct [Mass/volum e] in Serum or PlasmaOrdered By: Mateo Navas on 06-07-2024 Bilirubin.direct [Mass/Vol] Bilirubin.direct [Mass/volume] in Serum or Plasma Low 0.03-0.18 [place] Comment on above: If the DBIL is less than 0.1, IBIL is not able to becalculated. Bilirubin.total [Mass/volume ] in Serum or PlasmaOrdered By: Mateo Navas on 06-07-2024 Bilirubin [Mass/Vol] Bilirubin.total [Mass/volume] in Serum or Plasma 0.3-1.0 [place] Calcium [Mass/volume] in Ser um or PlasmaOrdered By: Mateo Navas on 06-07-2024 Calcium [Mass/Vol] Calcium [Mass/volume ] in Serum or Plasma 8.6-10.3 [place] Cannabinoids [Presence] in U rine by Screen methodOrdered By: Mateo Navas on 06-07-2024 Cannabinoids Screen Ql (U) Cannabinoids [Presence] in Urine by Screen method High Negative [place] Comment on above: These are unconfirme d [...] [Moles/volume] in Serum or Plasma Low 21.0-31.0 [place] Chloride [Moles/volume] in S mayte or PlasmaOrdered By: Mateo Navas on 06-07-2024 Chloride [Moles/Vol] Chloride [Moles/vol ume] in Serum or Plasma High 98-107 [place] Color Auto (U)Ordered By: Lamont Navas on 06-07-2024 Color (U) Color of Urine by Auto Yellow [facility] Blood Count Auto Di ffon 06-07-2024 Basophils (Bld) [#/Vol] 0.0 10*3/uL Normal 0.0-0.2 [facility] Comment on above: Result Comment: PERF ORMED BY: [place] [address] PATHOLOGIST [employer] SAL[employer] ASSOCIATE SARAH ANDREWS M.D. Performed By: #### H EPATIC, CBC, BMP, LIPASE #### [address] Basophils/100 WBC (Bld) 0.1 % Normal . [facility] Comment on above: Performed By: #### H EPATIC, CBC, BMP, LIPASE #### [facility] [address] [place] [address] [place] Eosinophils (Bld) [#/Vol] 0.0 10*3/uL Normal 0.0-0.45 [facility] Comment on above: Performed By: #### H EPATIC, CBC, BMP, LIPASE #### [place] [address] [place] Eosinophils/100 WBC (Bld) 0.0 % Normal . [facility] Comment on above: Performed By: #### H EPATIC, CBC, BMP, LIPASE #### [address] Erythrocyte distribution width (RBC) [Ratio] 13.6 % Normal 11.9-15.3 [facility] Comment on above: Performed By: #### H EPATIC, CBC, BMP, LIPASE #### [address] Hematocrit (Bld) [Volume fraction] 33.6 % Low 34.0-46.4 [facility] Comment on above: Performed By: #### H EPATIC, CBC, BMP, LIPASE #### [address] Hemoglobin (Bld) [Mass/Vol] 11.4 g/dL Low 11.8-15.4 [facility] Comment on above: Performed By: #### H EPATIC, CBC, BMP, LIPASE #### [address] Lymphocytes (Bld) [#/Vol] 0.9 10*3/uL Low 1.00-4.8 [facility] Comment on above: Performed By: #### H EPATIC, CBC, BMP, LIPASE #### [address] Lymphocytes/100 WBC (Bld) 7.2 % Normal . [facility] Comment on above: Performed By: #### H EPATIC, CBC, BMP, LIPASE #### [address] MCH (RBC) [Entitic mass] 29.1 pg Normal 24.7-34.3 [facility] Comment on above: Performed By: #### H EPATIC, CBC, BMP, LIPASE #### [address] MCV (RBC) [Entitic vol] 85.7 fL Normal 80-100 [facility] Comment on above: Performed By: #### H EPATIC, CBC, BMP, LIPASE #### [address] Mean Corpuscular HGB Conc 34.0 g/dL Normal 32.0-35.0 [facility] Comment on above: Performed By: #### H EPATIC, CBC, BMP, LIPASE #### [address] Monocytes (Bld) [#/Vol] 0.3 10*3/uL Normal 0.0-0.8 [facility] Comment on above: Performed By: #### H EPATIC, CBC, BMP, LIPASE #### [address] Monocytes/100 WBC (Bld) 22.40 % High 0.00-20.00 [facility] Comment on above: Result Comment: For adults in ED, MDW > 20.0 may be associated with a higher risk of sepsis during the first 12 hrs of hospital admission Performed By: #### H EPATIC, CBC, BMP, LIPASE #### [address] Monocytes/100 WBC (Bld) 2.4 % Normal . [facility] Comment on above: Performed By: #### H EPATIC, CBC, BMP, LIPASE #### [address] Neutrophils (Bld) [#/Vol] 11.1 10*3/uL High 1.8-7.7 [facility] Comment on above: Performed By: #### H EPATIC, CBC, BMP, LIPASE #### [address] Neutrophils/100 WBC (Bld) 90.3 % Normal . [facility] Comment on above: Performed By: #### H EPATIC, CBC, BMP, LIPASE #### [address] NRBC% 0.1 /100{WBC} Normal 0-0.5 [facility] Comment on above: Performed By: #### H EPATIC, CBC, BMP, LIPASE #### [address] Platelet mean volume (Bld) [Entitic vol] 11.1 fL High 6.3-10.[address] [facility] Comment on above: Performed By: #### H EPATIC, CBC, BMP, LIPASE #### [address] Platelets (Bld) [#/Vol] 190 10*3/uL Normal 150-450 [facility] Comment on above: Performed By: #### H EPATIC, CBC, BMP, LIPASE #### [address] RBC (Bld) [#/Vol] 3.92 10*6/uL Normal 3.60-5.00 [facility] Comment on above: Performed By: #### H EPATIC, CBC, BMP, LIPASE #### [address] WBC (Bld) [#/Vol] 12.3 10*3/uL High 3.8-11.6 [facility] Comment on above: Performed By: #### H EPATIC, CBC, BMP, LIPASE #### [address] Creatinine [Mass/volume] in Serum or PlasmaOrdered By: Mateo Navas on 06-07-2024 Creatinine [Mass/Vol] Creatinine [Mass/v olume] in Serum or Plasma Low 0.60-1.20 [place] Drug Screen,Urineon 06-08-19 25 Amphetamine Screen,Urine Negative Normal Negative [facility] Comment on above: Performed By: #### H EPATIC, CBC, BMP, LIPASE #### [address] Barbiturate Screen,Urine Negative Normal Negative [facility] Comment on above: Performed By: #### H EPATIC, CBC, BMP, LIPASE #### [address] Benzodiazepines Screen,Urine Negative Normal Negative [facility] Comment on above: Performed By: #### H EPATIC, CBC, BMP, LIPASE #### [address] Cannabinoid Screen,Urine Positive High Negative [facility] Comment on above: Result Comment: Thes e are unconfirmed results and should not be used for legal purposes. Drug Cut-Off Concentration: AMPH 1000 ng/mL DENIS 200 ng/mL DIRO 200 ng/mL COCM 300 ng/mL OP 300 ng/mL PCP 25 ng/mL THC 20 ng/mL PERFORMED BY: [place] [address] PATHOLOGIST [employer] ASSOCIATE SARAH ANDREWS M.D. Performed By: #### H EPATIC, CBC, BMP, LIPASE #### [address] Cocaine Screen,Urine Negative Normal Negative [facility] Comment on above: Performed By: #### H EPATIC, CBC, BMP, LIPASE #### [address] Opiate Screen,Urine Negative Normal Negative [facility] Comment on above: Performed By: #### H EPATIC, CBC, BMP, LIPASE #### [address] Phencyclidine Screen,Urine Negative Normal Negative [facility] Comment on above: Performed By: #### H EPATIC, CBC, BMP, LIPASE #### [address] Eosinophils Auto (Bld) [#/Vo l]Ordered By: Mateo Navas on 06-07-2024 Eosinophils (Bld) [#/Vol] Automated eosinophil count 0.0-0.45 [facility] Eosinophils/100 WBC Auto (Bl d)Ordered By: Mateo Navas on 06-07-2024 Eosinophils/100 WBC (Bld) Automated eosinophil % . [place] Erythrocyte distribution wid th Auto (RBC) [Ratio]Ordered By: Mateo Navas on 06-07-2024 Erythrocyte distribution width (RBC) [Ratio] Erythrocyte distribution width [Ratio] by Automated count 11.9-15.3 [place] Globulin Calc (S) [Mass/Vol] Ordered By: Mateo Navas on 03-19-2025 Globulin (S) [Mass/Vol] Serum globulin measurement by calculation (mass/volume) [place] Glucose [Mass/volume] in Ser um or PlasmaOrdered By: Mateo Navas on 06-07-2024 Glucose [Mass/Vol] Glucose [Mass/volume ] in Serum or Plasma High 70-100 [place] Comment on above: ADA recommended refe rence [...] in Urine by Test strip High Normal [place] Hematocrit Auto (Bld) [Volum e fraction]Ordered By: Mateo Navas on 06-07-2024 Hematocrit (Bld) [Volume fraction] Hematocrit [Volume Fraction] of Blood by Automated count Low 34.0-46.4 [place] Hemoglobin Test strip Ql (U) Ordered By: Mateo Navas on 06-07-2024 Hemoglobin Ql (U) Hemoglobin [Presence ] in Urine by Test strip Negative [place] Hemoglobin [Mass/volume] in BloodOrdered By: Mateo Navas on 06-07-2024 Hemoglobin (Bld) [Mass/Vol] Hemoglobin [Mass/volume] in Blood Low 11.8-15.4 [place] Hepatic Panelon 06-07-2024 Albumin [Mass/Vol] 3.9 g/dL Normal 3.5-5.7 [facility] Comment on above: Performed By: #### H EPATIC, CBC, BMP, LIPASE #### [facility] [address] [place] [address] [place] Albumin/Globulin [Mass ratio] 1.2 {ratio} Normal [facility] Comment on above: Performed By: #### H EPATIC, CBC, BMP, LIPASE #### [facility] [address] [place] [id number] [place] ALP [Catalytic activity/Vol] 44 U/L Normal 34-104 [facility] Comment on above: Performed By: #### H EPATIC, CBC, BMP, LIPASE #### [address] ALT [Catalytic activity/Vol] 7 U/L Normal 7-52 [facility] Comment on above: Performed By: #### H EPATIC, CBC, BMP, LIPASE #### [address] AST [Catalytic activity/Vol] 11 U/L Low 13-39 [facility] Comment on above: Performed By: #### H EPATIC, CBC, BMP, LIPASE #### [address] Bilirubin [Mass/Vol] 0.3 mg/dL Normal 0.3-1.0 [facility] Comment on above: Performed By: #### H EPATIC, CBC, BMP, LIPASE #### [address] Bilirubin,Indirect 0.3 mg/dL Normal [facility] Comment on above: Performed By: #### H EPATIC, CBC, BMP, LIPASE #### [address] Bilirubin.indirect [Mass/Vol] 0.00 mg/dL Low 0.03-0.18 [facility] Comment on above: Result Comment: If t he DBIL is less than 0.1, IBIL is not able to be calculated. Performed By: #### H EPATIC, CBC, BMP, LIPASE #### [address] Globulin (S) [Mass/Vol] 3.2 g/dL Normal [facility] Comment on above: Performed By: #### H EPATIC, CBC, BMP, LIPASE #### [address] Protein [Mass/Vol] 7.1 g/dL Normal 6.4-8.9 [facility] Comment on above: Performed By: #### H EPATIC, CBC, BMP, LIPASE #### [address] Ketones Test strip Ql (U)Ord ered By: Mateo Navas on 06-07-2024 Ketones Ql (U) Ketones [Presence] i n Urine by Test strip High Negative [place] Leukocyte esterase [Presence ] in Urine by Test stripOrdered By: Mateo Navas on 06-07-2024 Leukocyte esterase Test strip Ql (U) Leukocyte esterase [Presence] in Urine by Test strip Negative [place] Leukocytes [#/volume] correc rossy for nucleated erythrocytes in Blood by Automated counOrdered By: Mateo Navas on 06-07-2024 WBC corrected for nucl RBC Auto (Bld) [#/Vol] Leukocytes [#/volume] corrected for nucleated erythrocytes in Blood by Automated coun High 3.8-11.6 [place] Lipaseon 06-07-2024 Lipase [Catalytic activity/Vol] 13.0 U/L Normal 11.0-82.0 [facility] Comment on above: Result Comment: PERF ORMED BY: [place] [address] PATHOLOGIST [employer] ASSOCIATE SARAH ANDREWS M.D. Performed By: #### H EPATIC, CBC, BMP, LIPASE #### [address] Lipase [Enzymatic activity/v olume] in Serum or PlasmaOrdered By: Mateo Navas on 06-07-2024 Lipase [Catalytic activity/Vol] Lipase [Enzymatic activity/volume] in Serum or Plasma 11.0-82.0 [place] Lymphocytes Auto (Bld) [#/Vo l]Ordered By: Mateo Navas on 06-07-2024 Lymphocytes (Bld) [#/Vol] Lymphocytes [#/volume] in Blood by Automated count Low 1.00-4.8 [place] Lymphocytes/100 WBC Auto (Bl d)Ordered By: Mateo Navas on 06-07-2024 Lymphocytes/100 WBC (Bld) Lymphocytes/100 leukocytes in Blood by Automated count . [place] MCH Auto (RBC) [Entitic mass ]Ordered By: Mateo Navas on 06-07-2024 MCH (RBC) [Entitic mass] MCH [Entitic mass] by Automated count 24.7-34.3 [place] MCHC Auto (RBC) [Mass/Vol]Or dered By: Mateo Navas on 06-07-2024 MCHC (RBC) [Mass/Vol] MCHC [Mass/volume] by Automated count 32.0-35.0 [place] MCV Auto (RBC) [Entitic vol] Ordered By: Mateo Navas on 06-07-2024 MCV (RBC) [Entitic vol] MCV [Entitic volume] by Automated count 80-100 [place] Monocyte distribution width [Entitic volume] in Blood by AutomatedOrdered By: Mateo Navas on 06-07-2024 Monocyte distribution width Auto (Bld) [Entitic vol] Monocyte distribution width [Entitic volume] in Blood by Automated High 0.00-20.00 [place] Comment on above: For adults in ED, MD W > 20.0 may be associated with a higher risk of sepsis during the first 12 hrs of hospital admission Monocytes Auto (Bld) [#/Vol] Ordered By: Mateo Navas on 06-07-2024 Monocytes (Bld) [#/Vol] Automated blood monocyte count 0.0-0.8 [place] Monocytes/100 WBC Auto (Bld) Ordered By: Mateo Navas on 06-07-2024 Monocytes/100 WBC (Bld) Automated monocyte % . [place] Neutrophils Auto (Bld) [#/Vo l]Ordered By: Mateo Navas on 06-07-2024 Neutrophils (Bld) [#/Vol] Neutrophils [#/volume] in Blood by Automated count High 1.8-7.7 [place] Neutrophils/100 WBC Auto (Bl d)Ordered By: Mateo Navas on 06-07-2024 Neutrophils/100 WBC (Bld) Automated neutrophil % . [place] Nitrite Test strip Ql (U)Ord ered By: Mateo Navas on 06-07-2024 Nitrite Ql (U) Nitrite [Presence] i n Urine by Test strip Negative [place] No Panel InformationOrdered By: Mateo Navas on 06-07-2024 Estimated GFR (CKD-EPI) > 60.0 mL/Min [place] [facility] Creatinine Clearance (Chem 167.01 [place] Nucleated erythrocytes [Pres ence] in Blood by Automated countOrdered By: Mateo Navas on 06-07-2024 Nucleated RBC Auto Ql (Bld) Nucleated erythrocytes [Presence] in Blood by Automated count 0-0.5 [place] Opiates [Presence] in Urine by Screen methodOrdered By: Mateo Navas on 06-07-2024 Opiates Screen Ql (U) Opiates [Presence] in Urine by Screen method Negative [place] Phencyclidine Screen Ql (U)O rdered By: Mateo Navas on 06-07-2024 Phencyclidine Ql (U) Phencyclidine [Pres ence] in Urine by Screen method Negative [place] Platelet mean volume Auto (B ld) [Entitic vol]Ordered By: Mateo Navas on 06-07-2024 Platelet mean volume (Bld) [Entitic vol] Platelet mean volume [Entitic volume] in Blood by Automated count High 6.3-10.7 [place] Platelets Auto (Bld) [#/Vol] Ordered By: Mateo Navas on 06-07-2024 Platelets (Bld) [#/Vol] Platelets [#/volume] in Blood by Automated count 150-450 [place] Potassium [Moles/volume] in Serum or PlasmaOrdered By: Mateo Navas on 06-07-2024 Potassium [Moles/Vol] Potassium [Moles/v olume] in Serum or Plasma Low 3.5-5.1 [place] Protein Test strip (U) [Mass /Vol]Ordered By: Mateo Navas on 06-07-2024 Protein (U) [Mass/Vol] Protein [Mass/volume] in Urine by Test strip Negative [place] Protein [Mass/volume] in Ser um or PlasmaOrdered By: Mateo Navas on 06-07-2024 Protein [Mass/Vol] Protein [Mass/volume ] in Serum or Plasma 6.4-8.9 [place] RBC Auto (Bld) [#/Vol]Ordere d By: Mateo Navas on 06-07-2024 RBC (Bld) [#/Vol] Erythrocytes [#/volu me] in Blood by Automated count 3.60-5.00 [place] Serum or plasma albumin/glob ulin mass ratioOrdered By: Mateo Navas on 06-07-2024 Albumin/Globulin [Mass ratio] Serum or plasma albumin/globulin mass ratio [place] Serum or plasma anion gap de terminationOrdered By: Mateo Navas on 06-07-2024 Anion gap [Moles/Vol] Serum or plasma an ion gap determination 6.0-15.0 [place] Serum or plasma non-glucuron idated bilirubin measurement (mass/volume)Ordered By: Mateo Navas on 06-07-2024 Bilirubin.indirect [Mass/Vol] Serum or plasma non-glucuronidated bilirubin measurement (mass/volume) [place] Sodium [Moles/volume] in Ser um or PlasmaOrdered By: Mateo Navas on 06-07-2024 Sodium [Moles/Vol] Sodium [Moles/volume ] in Serum or Plasma 136-145 [place] Specific gravity Test strip (U) [Rel density]Ordered By: Mateo Navas on 06-07-2024 Specific gravity (U) [Rel density] Specific gravity of Urine by Test strip 1.001-1.03 0 [place] Urea nitrogen [Mass/volume] in Serum or PlasmaOrdered By: Mateo Navas on 06-07-2024 Urea nitrogen [Mass/Vol] Urea nitrogen [Mass/volume] in Serum or Plasma Low 7-25 [place] Urinalysison 06-07-2024 Appearance (U) Clear Normal Clear [facility] Comment on above: Order Comment: Name Collection Type:: Clean-Voided Midstream Performed By: #### H EPATIC, CBC, BMP, LIPASE #### [facility] [address] [place] [address] [place] Bilirubin,Urine Negative Normal Negative [facility] Comment on above: Order Comment: Name Collection Type:: Clean-Voided Midstream Performed By: #### H EPATIC, CBC, BMP, LIPASE #### [facility] [address] [place] [id number] [place] Color (U) Light-Yellow Normal Yellow [facility] Comment on above: Order Comment: Name Collection Type:: Clean-Voided Midstream Performed By: #### H EPATIC, CBC, BMP, LIPASE #### [address] Glucose Ql (U) 200 mg/dL High Normal [facility] Comment on above: Order Comment: Name Collection Type:: Clean-Voided Midstream Performed By: #### H EPATIC, CBC, BMP, LIPASE #### [address] Ketones Ql (U) 4+ High Negative [facility] Comment on above: Order Comment: Name Collection Type:: Clean-Voided Midstream Performed By: #### H EPATIC, CBC, BMP, LIPASE #### [address] Leukocyte esterase Test strip Ql (U) Negative Normal Negative [facility] Comment on above: Order Comment: Name Collection Type:: Clean-Voided Midstream Performed By: #### H EPATIC, CBC, BMP, LIPASE #### [address] Nitrite,Urine Negative Normal Negative [facility] Comment on above: Order Comment: Name Collection Type:: Clean-Voided Midstream Performed By: #### H EPATIC, CBC, BMP, LIPASE #### [address] Occult Blood,Urine Negative Normal Negative [facility] Comment on above: Order Comment: Name Collection Type:: Clean-Voided Midstream Result Comment: PERF ORMED BY: [place] [address] PATHOLOGIST [employer] SAL[employer] ASSOCIATE SARAH ANDREWS M.D. Performed By: #### H EPATIC, CBC, BMP, LIPASE #### [address] pH (U) 8.0 [pH] Normal 5.0-9.0 [facility] Comment on above: Order Comment: Name Collection Type:: Clean-Voided Midstream Performed By: #### H EPATIC, CBC, BMP, LIPASE #### [address] Protein,Urine Negative Normal Negative [facility] Comment on above: Order Comment: Name Collection Type:: Clean-Voided Midstream Performed By: #### H EPATIC, CBC, BMP, LIPASE #### [facility] [address] Specificy [place],Urine 1.020 Normal 1.001-1.03 0 [facility] Comment on above: Order Comment: Name Collection Type:: Clean-Voided Midstream Performed By: #### H EPATIC, CBC, BMP, LIPASE #### [facility] [address] Urobilinogen,Urine Normal Normal Normal [facility] Comment on above: Order Comment: Name Collection Type:: Clean-Voided Midstream Performed By: #### H EPATIC, CBC, BMP, LIPASE #### [facility] [address] [place] [address] Urobilinogen Test strip (U) [Mass/Vol]Ordered By: Maeto Navas on 06-07-2024 Urobilinogen (U) [Mass/Vol] Urobilinogen [Mass/volume] in Urine by Test strip Normal [place] WBC Auto (Bld) [#/Vol]Ordere d By: Mateo Navas on 06-07-2024 WBC (Bld) [#/Vol] Leukocytes [#/volume ] in Blood by Automated count High 3.8-11.6 [place] pH Test strip (U)Ordered By: Mateo Navas on 06-07-2024 pH (U) pH of Urine by Test strip 5.0-9.0 [place] IGP,APTIMA HPV,AGE GDLNon AGE GDLN ACOG TESTING Note . [facility] Comment on above: TESTS RESULT FLAG UN ITS REF RANGE LAB Clinician Provided Cytology Information Source.............Cervix No. of containers..01 ThinPrep Vial Age Izabela BYNUM Katharina... 28 01 FLAG LEGEND: L-Low Normal,H-High Normal,LL-Alert Low,HH-Alert High <-Panic Low,>-Panic High,A-Abnormal,AA-Critical Abnormal Performed at: 01 =[address] [phone] Naina Arthur MD, HPV APTIMA Negative Negative [facility] Comment on above: This nucleic acid am plification test detects fourteen high- risk HPV types (16,18,31,33,35,39,45,51,52,56,58,59,66,68) without differentiation. Performed at: =[address] [id number] [employer] Operator: Naina Arthur MD, Phone: [phone] Performed at: [address] [id number] [employer] Operator: Naina Arthur MD, Phone: [phone] IGP, APTIMA HPV, RFX 16/18,45 Note . [facility] Comment on above: TESTS RESULT FLAG UN ITS REF RANGE LAB DIAGNOSIS: 02 NEGATIVE FOR INTRAEPITHELIAL LESION OR MALIGNANCY. THIS SPECIMEN WAS RESCREENED PART OF OUR TRAUMA THERAPIST PROGRAM. Specimen adequacy: 02 Satisfactory for evaluation. No endocervical component is identified. Performed by: 02 Yakelin Ramey, Audit Officer (ASCP) QC reviewed by: 02 Nash Guerra Audit Officer (ASCP) . 02 Note: Note 02 The [...] <-Panic Low,>-Panic High,A-Abnormal,AA-Critical Abnormal Performed at: [address] [phone] Naina Arthur MD, SPATULA-ALONE CERVIX [facility] US OB 14+ WEEKS ANATOMY SCAN [...] II, MD, PHD at 13-Jun-2024 09:57:02 AM [facility] Normal Not Available Comment on above: [...] Negative Negative - 2000(110) ++++ mg/dL [facility] Interpretation and review of laboratory results Abnormal [facility] Ketones, UA Negative Negative - 160(16) ++++ mg/dL [facility] Leukocytes, UA Negative Negative - 500+++ Archana/mcL [facility] Nitrite, UA Negative Negative - Positive [facility] pH, UA 7 5 - 9 [facility] Protein, UA Trace Negative - 2000(20) ++++ mg/dL [facility] Spec Grav, UA 1.025 1 - 1.03 [facility] Urobilinogen, UA 0.2 0.2 - 12 mg/dL [facility] Alanine aminotransferase [En zymatic activity/volume] in Serum or PlasmaOrdered By: Glenn Abdullahi on 05-19-2024 ALT [Catalytic activity/Vol] Alanine aminotransferase [Enzymatic activity/volume] in Serum or Plasma 7-52 [place] Albumin [Mass/volume] in Ser um or Plasma by Bromocresol green (BCG) dye binding methoOrdered By: Glenn Abdullahi on 05-19-2024 Albumin BCG dye [Mass/Vol] Albumin [Mass/volume] in Serum or Plasma by Bromocresol green (BCG) dye binding metho 3.5-5.7 [place] Alkaline phosphatase [Enzyma tic activity/volume] in Serum or PlasmaOrdered By: Glenn Abdullahi on 05-19-2024 ALP [Catalytic activity/Vol] Alkaline phosphatase [Enzymatic activity/volume] in Serum or Plasma 34-104 [place] Amphetamine Screen Ql (U)Ord ered By: Glenn Abdullahi on 05-19-2024 Amphetamines Ql (U) Amphetamines screen Negativ e [place] Appearance of UrineOrdered B y: Glenn Abdullahi on 05-19-2024 Appearance (U) Urine appearance Abnormal Clear [facility] Aspartate aminotransferase [ Enzymatic activity/volume] in Serum or PlasmaOrdered By: Glenn Abdullahi on 05-19-2024 AST [Catalytic activity/Vol] Aspartate aminotransferase [Enzymatic activity/volume] in Serum or Plasma Low 13-39 [place] Bacteria [Presence] in Urine by AutomatedOrdered By: Glenn Abdullahi on 05-19-2024 Bacteria Auto Ql (U) Bacteria [Presence] in Urine by Automated None Seen [place] Barbiturates [Presence] in U rine by Screen methodOrdered By: Glenn Abdullahi on 05-19-2024 Barbiturates Screen Ql (U) Barbiturates [Presence] in Urine by Screen method Negative [place] Basophils Auto (Bld) [#/Vol] Ordered By: Glenn Abdullahi on 05-19-2024 Basophils (Bld) [#/Vol] Automated basophil count 0.0-0.2 [facility] Basophils/100 WBC Auto (Bld) Ordered By: Glenn Abdullahi on 05-19-2024 Basophils/100 WBC (Bld) Automated basophil % . [place] Benzodiazepines Screen Ql (U )Ordered By: Glenn Abdullahi on 05-19-2024 Benzodiazepines Ql (U) Benzodiazepines [Presence] in Urine by Screen method Negative [place] Benzoylecgonine [Presence] i n Urine by Screen methodOrdered By: Glenn Abdullahi on 05-19-2024 Benzoylecgonine Screen Ql (U) Benzoylecgonine [Presence] in Urine by Screen method Negative [place] Bilirubin Test strip Ql (U)O rdered By: Glenn Abdullahi on 05-19-2024 Bilirubin Ql (U) Bilirubin.total [Pre sence] in Urine by Test strip Negative [place] Bilirubin.direct [Mass/volum e] in Serum or PlasmaOrdered By: Glenn Abdullahi on 05-19-2024 Bilirubin.direct [Mass/Vol] Bilirubin.direct [Mass/volume] in Serum or Plasma Low 0.03-0.18 [place] Comment on above: If the DBIL is less than 0.1, IBIL is not able to becalculated. Bilirubin.total [Mass/volume ] in Serum or PlasmaOrdered By: Glenn Abdullahi on 05-19-2024 Bilirubin [Mass/Vol] Bilirubin.total [Mass/volume] in Serum or Plasma 0.3-1.0 [place] Calcium [Mass/volume] in Ser um or PlasmaOrdered By: Glenn Abdullahi on 05-19-2024 Calcium [Mass/Vol] Calcium [Mass/volume ] in Serum or Plasma 8.6-10.3 [place] Cannabinoids [Presence] in U rine by Screen methodOrdered By: Glenn Abdullahi on 05-19-2024 Cannabinoids Screen Ql (U) Cannabinoids [Presence] in Urine by Screen method High Negative [place] Comment on above: These are unconfirme d [...] [Moles/volume] in Serum or Plasma Low 21.0-31.0 [place] Chloride [Moles/volume] in S mayte or PlasmaOrdered By: Glenn Abdullahi on 05-19-2024 Chloride [Moles/Vol] Chloride [Moles/vol ume] in Serum or Plasma 98-107 [place] Choriogonadotropin.beta subu nit [Units/volume] in Serum or PlasmaOrdered By: Glenn Abdullahi on 05-19-2024 HCG.beta subunit Qn Choriogonadotropin.b eta subunit [Units/volume] in Serum or Plasma [place] Comment on above: Approximate Approxim ate hCG Gestational Age Range (mIU/ml) (weeks)0.2-1 5-50 1-2 50-500 2-3 100-5,000 3-4 500-10,000 4-5 1,000-50,000 5-6 10,000-100,000 6-8 15,000-200,000 8-12 10,000-100,000 Color Auto (U)Ordered By: Toro Abdullahi on 05-19-2024 Color (U) Color of Urine by Auto Abnormal Yellow Fi [facility] Complete Blood Count Auto Di ffon 05-19-2024 Basophils (Bld) [#/Vol] 0.1 10*3/uL Normal 0.0-0.2 [facility] Comment on above: Result Comment: PERF ORMED BY: [place] [address] PATHOLOGIST [employer]OCIATE SARAH ANDREWS M.D. Performed By: #### H EPATIC, CBC, BMP, LIPASE #### [address] Basophils/100 WBC (Bld) 1.4 % Normal . [facility] Comment on above: Performed By: #### H EPATIC, CBC, BMP, LIPASE #### [address] Eosinophils (Bld) [#/Vol] 0.0 10*3/uL Normal 0.0-0.45 [facility] Comment on above: Performed By: #### H EPATIC, CBC, BMP, LIPASE #### [address] Eosinophils/100 WBC (Bld) 0.3 % Normal . [facility] Comment on above: Performed By: #### H EPATIC, CBC, BMP, LIPASE #### [address] Erythrocyte distribution width (RBC) [Ratio] 13.7 % Normal 11.9-15.3 [facility] Comment on above: Performed By: #### H EPATIC, CBC, BMP, LIPASE #### [address] Hematocrit (Bld) [Volume fraction] 33.1 % Low 34.0-46.4 [facility] Comment on above: Performed By: #### H EPATIC, CBC, BMP, LIPASE #### [address] Hemoglobin (Bld) [Mass/Vol] 11.6 g/dL Low 11.8-15.4 [facility] Comment on above: Performed By: #### H EPATIC, CBC, BMP, LIPASE #### [address] Lymphocytes (Bld) [#/Vol] 1.3 10*3/uL Normal 1.00-4.8 [facility] Comment on above: Performed By: #### H EPATIC, CBC, BMP, LIPASE #### [address] Lymphocytes/100 WBC (Bld) 14.1 % Normal . [facility] Comment on above: Performed By: #### H EPATIC, CBC, BMP, LIPASE #### [address] MCH (RBC) [Entitic mass] 30.0 pg Normal 24.7-34.3 [facility] Comment on above: Performed By: #### H EPATIC, CBC, BMP, LIPASE #### [address] MCV (RBC) [Entitic vol] 85.6 fL Normal 80-100 [facility] Comment on above: Performed By: #### H EPATIC, CBC, BMP, LIPASE #### [address] Mean Corpuscular HGB Conc 35.0 g/dL Normal 32.0-35.0 [facility] Comment on above: Performed By: #### H EPATIC, CBC, BMP, LIPASE #### [address] Monocytes (Bld) [#/Vol] 0.4 10*3/uL Normal 0.0-0.8 [facility] Comment on above: Performed By: #### H EPATIC, CBC, BMP, LIPASE #### [address] Monocytes/100 WBC (Bld) 15.92 % Normal 0.00-20.00 [facility] Comment on above: Performed By: #### H EPATIC, CBC, BMP, LIPASE #### [address] Monocytes/100 WBC (Bld) 4.2 % Normal . [facility] Comment on above: Performed By: #### H EPATIC, CBC, BMP, LIPASE #### [address] Neutrophils (Bld) [#/Vol] 7.1 10*3/uL Normal 1.8-7.7 [facility] Comment on above: Performed By: #### H EPATIC, CBC, BMP, LIPASE #### [address] Neutrophils/100 WBC (Bld) 80.0 % Normal . [facility] Comment on above: Performed By: #### H EPATIC, CBC, BMP, LIPASE #### [address] NRBC% 0.1 /100{WBC} Normal 0-0.5 [facility] Comment on above: Performed By: #### H EPATIC, CBC, BMP, LIPASE #### [address] Platelet mean volume (Bld) [Entitic vol] 11.0 fL High 6.3-10.[address] [facility] Comment on above: Performed By: #### H EPATIC, CBC, BMP, LIPASE #### [address] Platelets (Bld) [#/Vol] 161 10*3/uL Normal 150-450 [facility] Comment on above: Performed By: #### H EPATIC, CBC, BMP, LIPASE #### [address] RBC (Bld) [#/Vol] 3.87 10*6/uL Normal 3.60-5.00 [facility] Comment on above: Performed By: #### H EPATIC, CBC, BMP, LIPASE #### [address] WBC (Bld) [#/Vol] 8.9 10*3/uL Normal 3.8-11.6 [facility] Comment on above: Performed By: #### H EPATIC, CBC, BMP, LIPASE #### [address] Comprehensive Metabolic Pane blanquita 05-19-2024 Albumin [Mass/Vol] 3.8 g/dL Normal 3.5-5.7 [facility] Comment on above: Performed By: #### H EPATIC, CBC, BMP, LIPASE #### [address] Albumin/Globulin [Mass ratio] 1.3 {ratio} Normal [facility] Comment on above: Performed By: #### H EPATIC, CBC, BMP, LIPASE #### [address] ALP [Catalytic activity/Vol] 38 U/L Normal 34-104 [facility] Comment on above: Performed By: #### H EPATIC, CBC, BMP, LIPASE #### [address] ALT [Catalytic activity/Vol] 8 U/L Normal 7-52 [facility] Comment on above: Performed By: #### H EPATIC, CBC, BMP, LIPASE #### [address] Anion gap [Moles/Vol] 13.4 mmol/L Normal 6.0-15.0 [facility] Comment on above: Performed By: #### H EPATIC, CBC, BMP, LIPASE #### [address] AST [Catalytic activity/Vol] 10 U/L Low 13-39 [facility] Comment on above: Performed By: #### H EPATIC, CBC, BMP, LIPASE #### [address] Bilirubin [Mass/Vol] 0.3 mg/dL Normal 0.3-1.0 [facility] Comment on above: Performed By: #### H EPATIC, CBC, BMP, LIPASE #### [address] Calcium [Mass/Vol] 9.3 mg/dL Normal 8.6-10.3 [facility] Comment on above: Performed By: #### H EPATIC, CBC, BMP, LIPASE #### [place] [address] [place] Chloride [Moles/Vol] 107 mmol/L Normal 98-107 [facility] Comment on above: Performed By: #### H EPATIC, CBC, BMP, LIPASE #### [address] CO2 [Moles/Vol] 18.9 mmol/L Low 21.0-31.0 [facility] Comment on above: Performed By: #### H EPATIC, CBC, BMP, LIPASE #### [facility] [address] Creatinine [Mass/Vol] 0.53 mg/dL Low 0.60-1.20 [facility] Comment on above: Performed By: #### H EPATIC, CBC, BMP, LIPASE #### [facility] [address] Creatinine Clr Calc Pharmacy 143.53 Normal [facility] Comment on above: Performed By: #### H EPATIC, CBC, BMP, LIPASE #### [facility] [address] GFR/1.73 sq M.predicted MDRD (S/P/Bld) [Vol rate/Area] mL/min/{1.73_m2} Normal [facility] Comment on above: Performed By: #### H EPATIC, CBC, BMP, LIPASE #### [facility] [address] Globulin (S) [Mass/Vol] 2.9 g/dL Normal [facility] Comment on above: Performed By: #### H EPATIC, CBC, BMP, LIPASE #### [facility] [address] Glucose [Mass/Vol] 135 mg/dL High 70-100 [facility] Comment on above: Result Comment: [facility] Glucose Reference Range is dependent on time and content of last meal. Glucose of more than 200 mg/dL in a nonstressed, ambulatory subject supports the diagnosis of Diabetes Mellitus. ADA recommended reference range Performed By: #### H EPATIC, CBC, BMP, LIPASE #### [facility] [address] Potassium [Moles/Vol] 3.3 mmol/L Low 3.5-5.1 [facility] Comment on above: Performed By: #### H EPATIC, CBC, BMP, LIPASE #### [facility] [address] Protein [Mass/Vol] 6.7 g/dL Normal 6.4-8.9 [facility] Comment on above: Performed By: #### H EPATIC, CBC, BMP, LIPASE #### [address] Sodium [Moles/Vol] 136 mmol/L Normal 136-145 [facility] Comment on above: Performed By: #### H EPATIC, CBC, BMP, LIPASE #### [address] Urea nitrogen [Mass/Vol] 8 mg/dL Normal 7-25 [facility] Comment on above: Performed By: #### H EPATIC, CBC, BMP, LIPASE #### [place] [address] [place] Creatinine [Mass/volume] in Serum or PlasmaOrdered By: Glenn Abdullahi on 05-19-2024 Creatinine [Mass/Vol] Creatinine [Mass/v olume] in Serum or Plasma Low 0.60-1.20 [place] Dipstick and Microscopicon 0 05-19-2024 Appearance (U) Turbid Critically abnormal Clear [facility] Comment on above: Order Comment: Name Collection Type:: Clean-Voided Midstream Performed By: #### H EPATIC, CBC, BMP, LIPASE #### [address] Bacteria,Urine None Seen Normal None Seen [facility] Comment on above: Order Comment: Name Collection Type:: Clean-Voided Midstream Performed By: #### H EPATIC, CBC, BMP, LIPASE #### [place] [address] [place] Bilirubin,Urine Negative Normal Negative [facility] Comment on above: Order Comment: Name Collection Type:: Clean-Voided Midstream Performed By: #### H EPATIC, CBC, BMP, LIPASE #### [place] [address] [place] Color (U) [place] Critically abnormal Yellow [facility] Comment on above: Order Comment: Name Collection Type:: Clean-Voided Midstream Performed By: #### H EPATIC, CBC, BMP, LIPASE #### [facility] [address] Glucose Ql (U) Normal Normal Normal [facility] Comment on above: Order Comment: Name Collection Type:: Clean-Voided Midstream Performed By: #### H EPATIC, CBC, BMP, LIPASE #### [facility] [address] Hyaline Casts,Urine None Normal 0-[address] [facility] Comment on above: Order Comment: Name Collection Type:: Clean-Voided Midstream Performed By: #### H EPATIC, CBC, BMP, LIPASE #### [address] Ketones Ql (U) 2+ High Negative [facility] Comment on above: Order Comment: Name Collection Type:: Clean-Voided Midstream Performed By: #### H EPATIC, CBC, BMP, LIPASE #### [address] Leukocyte esterase Test strip Ql (U) Negative Normal Negative [facility] Comment on above: Order Comment: Name Collection Type:: Clean-Voided Midstream Performed By: #### H EPATIC, CBC, BMP, LIPASE #### [address] Mucus,Urine Rare Normal [facility] Comment on above: Order Comment: Name Collection Type:: Clean-Voided Midstream Result Comment: PERF ORMED BY: [place] [address] PATHOLOGIST [employer] ASSOCIATE SARAH ANDREWS M.D. Performed By: #### H EPATIC, CBC, BMP, LIPASE #### [address] Nitrite,Urine Negative Normal Negative [facility] Comment on above: Order Comment: Name Collection Type:: Clean-Voided Midstream Performed By: #### H EPATIC, CBC, BMP, LIPASE #### [address] Occult Blood,Urine Negative Normal Negative [facility] Comment on above: Order Comment: Name Collection Type:: Clean-Voided Midstream Result Comment: PERF ORMED BY: [place] [address] PATHOLOGIST [employer] SAL[employer] ASSOCIATE SARAH ANDREWS M.D. Performed By: #### H EPATIC, CBC, BMP, LIPASE #### [address] pH (U) 8.0 [pH] Normal 5.0-9.0 [facility] Comment on above: Order Comment: Name Collection Type:: Clean-Voided Midstream Performed By: #### H EPATIC, CBC, BMP, LIPASE #### [address] Protein,Urine Negative Normal Negative [facility] Comment on above: Order Comment: Name Collection Type:: Clean-Voided Midstream Performed By: #### H EPATIC, CBC, BMP, LIPASE #### [address] RBC,Urine 3-4 Normal 0-4 [facility] Comment on above: Order Comment: Name Collection Type:: Clean-Voided Midstream Performed By: #### H EPATIC, CBC, BMP, LIPASE #### [address] Specificy [place],Urine 1.014 Normal 1.001-1.03 0 [facility] Comment on above: Order Comment: Name Collection Type:: Clean-Voided Midstream Performed By: #### H EPATIC, CBC, BMP, LIPASE #### [address] Squamous Epithelial Cell,Urine 1-2 Normal 0-2 [facility] Comment on above: Order Comment: Name Collection Type:: Clean-Voided Midstream Performed By: #### H EPATIC, CBC, BMP, LIPASE #### [address] Urobilinogen,Urine Normal Normal Normal [facility] Comment on above: Order Comment: Name Collection Type:: Clean-Voided Midstream Performed By: #### H EPATIC, CBC, BMP, LIPASE #### [address] WBC,Urine None Seen Normal 0-4 [facility] Comment on above: Order Comment: Name Collection Type:: Clean-Voided Midstream Performed By: #### H EPATIC, CBC, BMP, LIPASE #### [address] Drug Screen,Urineon 05-19-19 25 Amphetamine Screen,Urine Negative Normal Negative [facility] Comment on above: Performed By: #### H EPATIC, CBC, BMP, LIPASE #### [address] Barbiturate Screen,Urine Negative Normal Negative [facility] Comment on above: Performed By: #### H EPATIC, CBC, BMP, LIPASE #### [address] Benzodiazepines Screen,Urine Negative Normal Negative [facility] Comment on above: Performed By: #### H EPATIC, CBC, BMP, LIPASE #### [address] Cannabinoid Screen,Urine Positive High Negative [facility] Comment on above: Result Comment: Thes e are unconfirmed results and should not be used for legal purposes. Drug Cut-Off Concentration: AMPH 1000 ng/mL DENIS 200 ng/mL DIOR 200 ng/mL COCM 300 ng/mL OP 300 ng/mL PCP 25 ng/mL THC 20 ng/mL PERFORMED BY: [place] [address] PATHOLOGIST [employer] ASSOCIATE SARAH ANDREWS M.D. Performed By: #### H EPATIC, CBC, BMP, LIPASE #### [address] Cocaine Screen,Urine Negative Normal Negative [facility] Comment on above: Performed By: #### H EPATIC, CBC, BMP, LIPASE #### [address] Opiate Screen,Urine Negative Normal Negative [facility] Comment on above: Performed By: #### H EPATIC, CBC, BMP, LIPASE #### [facility] [address] Phencyclidine Screen,Urine Negative Normal Negative [facility] Comment on above: Performed By: #### H EPATIC, CBC, BMP, LIPASE #### [facility] [address] [place] [address] [place] Eosinophils Auto (Bld) [#/Vo l]Ordered By: Glenn Abdullahi on 05-19-2024 Eosinophils (Bld) [#/Vol] Automated eosinophil count 0.0-0.45 [facility] Eosinophils/100 WBC Auto (Bl d)Ordered By: Glenn Abdullahi on 05-19-2024 Eosinophils/100 WBC (Bld) Automated eosinophil % . [place] Epithelial cells.squamous [# /area] in Urine sediment by Automated countOrdered By: Glenn Abdullahi on 05-19-2024 Epithelial cells.squamous Auto (Urine sed) [#/Area] Epithelial cells.squamous [#/area] in Urine sediment by Automated count 0-2 [place] Erythrocyte distribution wid th Auto (RBC) [Ratio]Ordered By: Glenn Abdullahi on 05-19-2024 Erythrocyte distribution width (RBC) [Ratio] Erythrocyte distribution width [Ratio] by Automated count 11.9-15.3 [place] Erythrocytes [#/area] in Uri ne sediment by Automated countOrdered By: Glenn Abdullahi on 05-19-2024 RBC Auto (Urine sed) [#/Area] Erythrocytes [#/area] in Urine sediment by Automated count 0-4 [place] Globulin Calc (S) [Mass/Vol] Ordered By: Glenn Abdullahi on 05-19-2024 Globulin (S) [Mass/Vol] Serum globulin measurement by calculation (mass/volume) [place] Glucose [Mass/volume] in Ser um or PlasmaOrdered By: Glenn Abdullahi on 05-19-2024 Glucose [Mass/Vol] Glucose [Mass/volume ] in Serum or Plasma High 70-100 [place] Comment on above: ADA recommended refe rence rangeRandom Glucose Reference Range is dependent on time and content of last meal. Glucose of more than 200 mg/dL in a nonstressed, ambulatory subject supports the diagnosis of Diabetes Mellitus. Glucose [Mass/volume] in Uri ne by Test stripOrdered By: Glenn Abdullahi on 05-19-2024 Glucose Test strip (U) [Mass/Vol] Glucose [Mass/volume] in Urine by Test strip Normal [place] HCG,Quantitativeon HCG,Quantitative 22881.00 m[iU]/mL Normal T he [facility] Comment on above: Result Comment: Appr oximate Approximate hCG Gestational Age Range (mIU/ml) (weeks) 0.2-1 5-50 1-2 50-500 2-3 100-5,000 3-4 500-10,000 4-5 1,000-50,000 5-6 10,000-100,000 6-8 15,000-200,000 8-12 10,000-100,000 PERFORMED BY: [place] [address] PATHOLOGIST [employer] SAL[employer] ASSOCIATE SARAH ANDREWS M.D. Performed By: #### H EPATIC, CBC, BMP, LIPASE #### [facility] [address] [place] [address] Hematocrit Auto (Bld) [Volum e fraction]Ordered By: Glenn Abdullahi on 05-19-2024 Hematocrit (Bld) [Volume fraction] Hematocrit [Volume Fraction] of Blood by Automated count Low 34.0-46.4 [place] Hemoglobin Test strip Ql (U) Ordered By: Glenn Abdullahi on 05-19-2024 Hemoglobin Ql (U) Hemoglobin [Presence ] in Urine by Test strip Negative [place] Hemoglobin [Mass/volume] in BloodOrdered By: Glenn Abdullahi on 05-19-2024 Hemoglobin (Bld) [Mass/Vol] Hemoglobin [Mass/volume] in Blood Low 11.8-15.4 [place] Hepatic Panelon 05-19-2024 Bilirubin,Indirect 0.3 mg/dL Normal [facility] Comment on above: Performed By: #### H EPATIC, CBC, BMP, LIPASE #### [facility] [address] [place] [address] Bilirubin.indirect [Mass/Vol] 0.00 mg/dL Low 0.03-0.18 [facility] Comment on above: Result Comment: If t he DBIL is less than 0.1, IBIL is not able to be calculated. Performed By: #### H EPATIC, CBC, BMP, LIPASE #### [facility] [address] [place] [address] Hyaline casts [#/area] in Ur ine sediment by Automated countOrdered By: Glenn Abdullahi on 05-19-2024 Hyaline casts Auto (Urine sed) [#/Area] Hyaline casts [#/area] in Urine sediment by Automated count 0-8 [place] Ketones Test strip Ql (U)Ord ered By: Glenn Abdullahi on 05-19-2024 Ketones Ql (U) Ketones [Presence] i n Urine by Test strip High Negative [place] Leukocyte esterase [Presence ] in Urine by Test stripOrdered By: Glenn Abdullahi on 05-19-2024 Leukocyte esterase Test strip Ql (U) Leukocyte esterase [Presence] in Urine by Test strip Negative [place] Leukocytes [#/area] in Urine sediment by Automated countOrdered By: Glenn Abdullahi on 05-19-2024 WBC Auto (Urine sed) [#/Area] Leukocytes [#/area] in Urine sediment by Automated count 0-4 [place] Leukocytes [#/volume] correc rossy for nucleated erythrocytes in Blood by Automated counOrdered By: Glenn Abdullahi on 05-19-2024 WBC corrected for nucl RBC Auto (Bld) [#/Vol] Leukocytes [#/volume] corrected for nucleated erythrocytes in Blood by Automated coun 3.8-11.6 [place] Lipaseon 05-19-2024 Lipase [Catalytic activity/Vol] 20.0 U/L Normal 11.0-82.0 [facility] Comment on above: Performed By: #### H EPATIC, CBC, BMP, LIPASE #### [address] Lipase [Enzymatic activity/v olume] in Serum or PlasmaOrdered By: Glenn Abdullahi on 05-19-2024 Lipase [Catalytic activity/Vol] Lipase [Enzymatic activity/volume] in Serum or Plasma 11.0-82.0 [place] Lymphocytes Auto (Bld) [#/Vo l]Ordered By: Glenn Abdullahi on 05-19-2024 Lymphocytes (Bld) [#/Vol] Lymphocytes [#/volume] in Blood by Automated count 1.00-4.8 [place] Lymphocytes/100 WBC Auto (Bl d)Ordered By: Glenn Abdullahi on 05-19-2024 Lymphocytes/100 WBC (Bld) Lymphocytes/100 leukocytes in Blood by Automated count . [place] MCH Auto (RBC) [Entitic mass ]Ordered By: Glenn Abdullahi on 05-19-2024 MCH (RBC) [Entitic mass] MCH [Entitic mass] by Automated count 24.7-34.3 [place] MCHC Auto (RBC) [Mass/Vol]Or dered By: Glenn Abdullahi on 05-19-2024 MCHC (RBC) [Mass/Vol] MCHC [Mass/volume] by Automated count 32.0-35.0 [place] MCV Auto (RBC) [Entitic vol] Ordered By: Glenn Abdullahi on 05-19-2024 MCV (RBC) [Entitic vol] MCV [Entitic volume] by Automated count 80-100 [place] Magnesiumon 05-19-2024 Magnesium [Mass/Vol] 1.4 mg/dL Low 1.9-2.7 [facility] Comment on above: Performed By: #### H EPATIC, CBC, BMP, LIPASE #### [address] Magnesium [Mass/volume] in S mayte or PlasmaOrdered By: Glenn Abdullahi on 05-19-2024 Magnesium [Mass/Vol] Magnesium [Mass/vol ume] in Serum or Plasma Low 1.9-2.7 [place] Monocyte distribution width [Entitic volume] in Blood by AutomatedOrdered By: Glenn Abdullahi on 05-19-2024 Monocyte distribution width Auto (Bld) [Entitic vol] Monocyte distribution width [Entitic volume] in Blood by Automated 0.00-20.00 [place] Monocytes Auto (Bld) [#/Vol] Ordered By: Glenn Abdullahi on 05-19-2024 Monocytes (Bld) [#/Vol] Automated blood monocyte count 0.0-0.8 [place] Monocytes/100 WBC Auto (Bld) Ordered By: Glenn Abdullahi on 05-19-2024 Monocytes/100 WBC (Bld) Automated monocyte % . [place] Mucus [Presence] in Urine by AutomatedOrdered By: Glenn Abdullahi on 05-19-2024 Mucus Auto Ql (U) Mucus [Presence] in Urine by Automated [place] Neutrophils Auto (Bld) [#/Vo l]Ordered By: Glenn Abdullahi on 05-19-2024 Neutrophils (Bld) [#/Vol] Neutrophils [#/volume] in Blood by Automated count 1.8-7.7 [place] Neutrophils/100 WBC Auto (Bl d)Ordered By: Glenn Abdullahi on 05-19-2024 Neutrophils/100 WBC (Bld) Automated neutrophil % . [place] Nitrite Test strip Ql (U)Ord ered By: Glenn Abdullahi on 05-19-2024 Nitrite Ql (U) Nitrite [Presence] i n Urine by Test strip Negative [place] No Panel InformationOrdered By: Glenn Abdullahi on 05-19-2024 Estimated GFR (CKD-EPI) > 60.0 mL/Min [place] [facility] Creatinine Clearance (Chem 143.53 [place] Nucleated erythrocytes [Pres ence] in Blood by Automated countOrdered By: Glenn Abdullahi on 05-19-2024 Nucleated RBC Auto Ql (Bld) Nucleated erythrocytes [Presence] in Blood by Automated count 0-0.5 [place] Opiates [Presence] in Urine by Screen methodOrdered By: Glenn Abdullahi on 05-19-2024 Opiates Screen Ql (U) Opiates [Presence] in Urine by Screen method Negative [place] Phencyclidine Screen Ql (U)O rdered By: Glenn Abdullahi on 05-19-2024 Phencyclidine Ql (U) Phencyclidine [Pres ence] in Urine by Screen method Negative [place] Platelet mean volume Auto (B ld) [Entitic vol]Ordered By: Glenn Abdullahi on 05-19-2024 Platelet mean volume (Bld) [Entitic vol] Platelet mean volume [Entitic volume] in Blood by Automated count High 6.3-10.7 [place] Platelets Auto (Bld) [#/Vol] Ordered By: Glenn Abdullahi on 05-19-2024 Platelets (Bld) [#/Vol] Platelets [#/volume] in Blood by Automated count 150-450 [place] Potassium [Moles/volume] in Serum or PlasmaOrdered By: Glenn Abdullahi on 05-19-2024 Potassium [Moles/Vol] Potassium [Moles/v olume] in Serum or Plasma Low 3.5-5.1 [place] Protein Test strip (U) [Mass /Vol]Ordered By: Glenn Abdullahi on 05-19-2024 Protein (U) [Mass/Vol] Protein [Mass/volume] in Urine by Test strip Negative [place] Protein [Mass/volume] in Ser um or PlasmaOrdered By: Glenn Abdullahi on 05-19-2024 Protein [Mass/Vol] Protein [Mass/volume ] in Serum or Plasma 6.4-8.9 [place] RBC Auto (Bld) [#/Vol]Ordere d By: Glenn Abdullahi on 05-19-2024 RBC (Bld) [#/Vol] Erythrocytes [#/volu me] in Blood by Automated count 3.60-5.00 [place] Serum or plasma albumin/glob ulin mass ratioOrdered By: Glenn Abdullahi 05-19-2024 Albumin/Globulin [Mass ratio] Serum or plasma albumin/globulin mass ratio [place] Serum or plasma anion gap de terminationOrdered By: Glenn Abdullahi 05-19-2024 Anion gap [Moles/Vol] Serum or plasma an ion gap determination 6.0-15.0 [place] Serum or plasma non-glucuron idated bilirubin measurement (mass/volume)Ordered By: Glenn Abdullahi on 05-19-2024 Bilirubin.indirect [Mass/Vol] Serum or plasma non-glucuronidated bilirubin measurement (mass/volume) [place] Sodium [Moles/volume] in Ser um or PlasmaOrdered By: Glenn Abdullahi 05-19-2024 Sodium [Moles/Vol] Sodium [Moles/volume ] in Serum or Plasma 136-145 [place] Specific gravity Test strip (U) [Rel density]Ordered By: Glenn Abdullahi on 05-19-2024 Specific gravity (U) [Rel density] Specific gravity of Urine by Test strip 1.001-1.03 0 [place] Urea nitrogen [Mass/volume] in Serum or PlasmaOrdered By: Glenn Abdullahi on 05-19-2024 Urea nitrogen [Mass/Vol] Urea nitrogen [Mass/volume] in Serum or Plasma 10-13 [place] Urobilinogen Test strip (U) [Mass/Vol]Ordered By: Glenn Abdullahi on 05-19-2024 Urobilinogen (U) [Mass/Vol] Urobilinogen [Mass/volume] in Urine by Test strip Normal [place] WBC Auto (Bld) [#/Vol]Ordere d By: Glenn Abdullahi on 05-19-2024 WBC (Bld) [#/Vol] Leukocytes [#/volume ] in Blood by Automated count 3.8-11.6 [place] pH Test strip (U)Ordered By: Glenn Abdullahi on 05-19-2024 pH (U) pH of Urine by Test strip 5.0-9.0 [place] Alanine aminotransferase [En zymatic activity/volume] in Serum or PlasmaOrdered By: Glenn Abdullahi on 05-16-2024 ALT [Catalytic activity/Vol] Alanine aminotransferase [Enzymatic activity/volume] in Serum or Plasma [place] Albumin [Mass/volume] in Ser um or Plasma by Bromocresol green (BCG) dye binding methoOrdered By: Glenn Abdullahi on 05-16-2024 Albumin BCG dye [Mass/Vol] Albumin [Mass/volume] in Serum or Plasma by Bromocresol green (BCG) dye binding metho 3.5-5.7 [place] Alkaline phosphatase [Enzyma tic activity/volume] in Serum or PlasmaOrdered By: Glenn Abdullahi on 05-16-2024 ALP [Catalytic activity/Vol] Alkaline phosphatase [Enzymatic activity/volume] in Serum or Plasma 34-104 [place] Appearance of UrineOrdered B y: Glenn Abdullahi on 02-25-2025 Appearance (U) Urine appearance Clear [facility] Aspartate aminotransferase [ Enzymatic activity/volume] in Serum or PlasmaOrdered By: Glenn Abdullahi on 05-16-2024 AST [Catalytic activity/Vol] Aspartate aminotransferase [Enzymatic activity/volume] in Serum or Plasma 13-39 [place] Basophils Auto (Bld) [#/Vol] Ordered By: Glenn Abdullahi on 05-16-2024 Basophils (Bld) [#/Vol] Automated basophil count 0.0-0.2 [facility] Basophils/100 WBC Auto (Bld) Ordered By: Glenn Abdullahi on 05-16-2024 Basophils/100 WBC (Bld) Automated basophil % . [place] Bilirubin Test strip Ql (U)O rdered By: Glenn Abdullahi on 05-16-2024 Bilirubin Ql (U) Bilirubin.total [Pre sence] in Urine by Test strip Negative [place] Bilirubin.direct [Mass/volum e] in Serum or PlasmaOrdered By: Glenn Abdullahi on 05-16-2024 Bilirubin.direct [Mass/Vol] Bilirubin.direct [Mass/volume] in Serum or Plasma Low 0.03-0.18 [place] Comment on above: If the DBIL is less than 0.1, IBIL is not able to becalculated. Bilirubin.total [Mass/volume ] in Serum or PlasmaOrdered By: Glenn Abdullahi 05-16-2024 Bilirubin [Mass/Vol] Bilirubin.total [Mass/volume] in Serum or Plasma 0.3-1.0 [place] Calcium [Mass/volume] in Ser um or PlasmaOrdered By: Glenn Abdullahi 05-16-2024 Calcium [Mass/Vol] Calcium [Mass/volume ] in Serum or Plasma 8.6-10.3 [place] Carbon dioxide, total [Moles /volume] in Serum or PlasmaOrdered By: Glenn Abdullahi 05-16-2024 CO2 [Moles/Vol] Carbon dioxide, tota l [Moles/volume] in Serum or Plasma Low 21.0-31.0 [place] Chloride [Moles/volume] in S mayte or PlasmaOrdered By: Glenn Abdullahi 05-16-2024 Chloride [Moles/Vol] Chloride [Moles/vol ume] in Serum or Plasma 98-107 [place] Choriogonadotropin.beta subu nit [Units/volume] in Serum or PlasmaOrdered By: Glenn Abdullahi on 05-16-2024 HCG.beta subunit Qn Choriogonadotropin.b eta subunit [Units/volume] in Serum or Plasma [place] Comment on above: Approximate Approxim ate hCG Gestational Age Range (mIU/ml) (weeks)0.2-1 5-50 1-2 50-500 2-3 100-5,000 3-4 500-10,000 4-5 1,000-50,000 5-6 10,000-100,000 6-8 15,000-200,000 8-12 10,000-100,000 Color Auto (U)Ordered By: Toro Abdullahi on 05-16-2024 Color (U) Color of Urine by Auto Yellow Fi [facility] Complete Blood Count Auto Di ffon 05-16-2024 Basophils (Bld) [#/Vol] 0.0 10*3/uL Normal 0.0-0.2 [facility] Comment on above: Result Comment: PERF ORMED BY: [place] [address] PATHOLOGIST [employer] SARAH ANDREWS M.D. Performed By: #### H EPATIC, CBC, BMP, LIPASE #### [facility] [address] [place] [address] Basophils/100 WBC (Bld) 0.0 % Normal . [facility] Comment on above: Performed By: #### H EPATIC, CBC, BMP, LIPASE #### [facility] [address] [place] [address] Eosinophils (Bld) [#/Vol] 0.0 10*3/uL Normal 0.0-0.45 [facility] Comment on above: Performed By: #### H EPATIC, CBC, BMP, LIPASE #### [facility] [address] [place] [address] Eosinophils/100 WBC (Bld) 0.0 % Normal . [facility] Comment on above: Performed By: #### H EPATIC, CBC, BMP, LIPASE #### [address] Erythrocyte distribution width (RBC) [Ratio] 13.7 % Normal 11.9-15.3 [facility] Comment on above: Performed By: #### H EPATIC, CBC, BMP, LIPASE #### [address] Hematocrit (Bld) [Volume fraction] 33.8 % Low 34.0-46.4 [facility] Comment on above: Performed By: #### H EPATIC, CBC, BMP, LIPASE #### [address] Hemoglobin (Bld) [Mass/Vol] 11.7 g/dL Low 11.8-15.4 [facility] Comment on above: Performed By: #### H EPATIC, CBC, BMP, LIPASE #### [address] Lymphocytes (Bld) [#/Vol] 0.6 10*3/uL Low 1.00-4.8 [facility] Comment on above: Performed By: #### H EPATIC, CBC, BMP, LIPASE #### [address] Lymphocytes/100 WBC (Bld) 4.6 % Normal . [facility] Comment on above: Performed By: #### H EPATIC, CBC, BMP, LIPASE #### [address] MCH (RBC) [Entitic mass] 29.7 pg Normal 24.7-34.3 [facility] Comment on above: Performed By: #### H EPATIC, CBC, BMP, LIPASE #### [address] MCV (RBC) [Entitic vol] 86.3 fL Normal 80-100 [facility] Comment on above: Performed By: #### H EPATIC, CBC, BMP, LIPASE #### [address] Mean Corpuscular HGB Conc 34.5 g/dL Normal 32.0-35.0 [facility] Comment on above: Performed By: #### H EPATIC, CBC, BMP, LIPASE #### [address] Monocyte Distribution Width Not performed Normal 0.00-20.00 [facility] Comment on above: Result Comment: Unab le to calculate MDW because the Absolute Monocyte Count is <0.8. Performed By: #### H EPATIC, CBC, BMP, LIPASE #### [address] Monocytes (Bld) [#/Vol] 0.2 10*3/uL Normal 0.0-0.8 [facility] Comment on above: Performed By: #### H EPATIC, CBC, BMP, LIPASE #### [address] Monocytes/100 WBC (Bld) 1.2 % Normal . [facility] Comment on above: Performed By: #### H EPATIC, CBC, BMP, LIPASE #### [address] Neutrophils (Bld) [#/Vol] 13.0 10*3/uL High 1.8-7.7 [facility] Comment on above: Performed By: #### H EPATIC, CBC, BMP, LIPASE #### [address] Neutrophils/100 WBC (Bld) 94.2 % Normal . [facility] Comment on above: Performed By: #### H EPATIC, CBC, BMP, LIPASE #### [address] NRBC% 0.0 /100{WBC} Normal 0-0.5 [facility] Comment on above: Performed By: #### H EPATIC, CBC, BMP, LIPASE #### [address] Platelet mean volume (Bld) [Entitic vol] 11.1 fL High 6.3-10.[address] [facility] Comment on above: Performed By: #### H EPATIC, CBC, BMP, LIPASE #### [address] Platelets (Bld) [#/Vol] 186 10*3/uL Normal 150-450 [facility] Comment on above: Performed By: #### H EPATIC, CBC, BMP, LIPASE #### [address] RBC (Bld) [#/Vol] 3.92 10*6/uL Normal 3.60-5.00 [facility] Comment on above: Performed By: #### H EPATIC, CBC, BMP, LIPASE #### [address] WBC (Bld) [#/Vol] 13.8 10*3/uL High 3.8-11.6 [facility] Comment on above: Performed By: #### H EPATIC, CBC, BMP, LIPASE #### [address] Comprehensive Metabolic Pane blanquita 05-16-2024 Albumin [Mass/Vol] 4.2 g/dL Normal 3.5-5.7 [facility] Comment on above: Performed By: #### H EPATIC, CBC, BMP, LIPASE #### [address] Albumin/Globulin [Mass ratio] 1.2 {ratio} Normal [facility] Comment on above: Performed By: #### H EPATIC, CBC, BMP, LIPASE #### [address] ALP [Catalytic activity/Vol] 46 U/L Normal 34-104 [facility] Comment on above: Performed By: #### H EPATIC, CBC, BMP, LIPASE #### [address] ALT [Catalytic activity/Vol] 9 U/L Normal 7-52 [facility] Comment on above: Performed By: #### H EPATIC, CBC, BMP, LIPASE #### [facility] [address] [place] [address] Anion gap [Moles/Vol] 17.4 mmol/L High 6.0-15.0 [facility] e [facility] Comment on above: Performed By: #### H EPATIC, CBC, BMP, LIPASE #### [address] AST [Catalytic activity/Vol] 17 U/L Normal 13-39 [facility] Comment on above: Performed By: #### H EPATIC, CBC, BMP, LIPASE #### [address] Bilirubin [Mass/Vol] 0.4 mg/dL Normal 0.3-1.0 [facility] Comment on above: Performed By: #### H EPATIC, CBC, BMP, LIPASE #### [address] Calcium [Mass/Vol] 9.4 mg/dL Normal 8.6-10.3 [facility] Comment on above: Performed By: #### H EPATIC, CBC, BMP, LIPASE #### [address] Chloride [Moles/Vol] 106 mmol/L Normal 98-107 [facility] Comment on above: Performed By: #### H EPATIC, CBC, BMP, LIPASE #### [address] CO2 [Moles/Vol] 16.0 mmol/L Low 21.0-31.0 [facility] Comment on above: Performed By: #### H EPATIC, CBC, BMP, LIPASE #### [address] Creatinine [Mass/Vol] 0.52 mg/dL Low 0.60-1.20 [facility] Comment on above: Performed By: #### H EPATIC, CBC, BMP, LIPASE #### [address] Creatinine Clr Calc Pharmacy 146.48 Normal [facility] Comment on above: Performed By: #### H EPATIC, CBC, BMP, LIPASE #### [address] GFR/1.73 sq M.predicted MDRD (S/P/Bld) [Vol rate/Area] mL/min/{1.73_m2} Normal [facility] Comment on above: Performed By: #### H EPATIC, CBC, BMP, LIPASE #### [address] Globulin (S) [Mass/Vol] 3.4 g/dL Normal [facility] Comment on above: Performed By: #### H EPATIC, CBC, BMP, LIPASE #### [address] Glucose [Mass/Vol] 160 mg/dL High 70-100 [facility] Comment on above: Result Comment: [facility] Glucose Reference Range is dependent on time and content of last meal. Glucose of more than 200 mg/dL in a nonstressed, ambulatory subject supports the diagnosis of Diabetes Mellitus. ADA recommended reference range Performed By: #### H EPATIC, CBC, BMP, LIPASE #### [address] Potassium [Moles/Vol] 3.4 mmol/L Low 3.5-5.1 [facility] Comment on above: Result Comment: Hemo lysis is present at a level that could interfere with the result. Contact lab if redraw is required Performed By: #### H EPATIC, CBC, BMP, LIPASE #### [address] Protein [Mass/Vol] 7.6 g/dL Normal 6.4-8.9 [facility] Comment on above: Performed By: #### H EPATIC, CBC, BMP, LIPASE #### [address] Sodium [Moles/Vol] 136 mmol/L Normal 136-145 [facility] Comment on above: Performed By: #### H EPATIC, CBC, BMP, LIPASE #### [address] Urea nitrogen [Mass/Vol] 9 mg/dL Normal 7-25 [facility] Comment on above: Performed By: #### H EPATIC, CBC, BMP, LIPASE #### [facility] [address] Creatinine [Mass/volume] in Serum or PlasmaOrdered By: Glenn bAdullahi on 05-16-2024 Creatinine [Mass/Vol] Creatinine [Mass/v olume] in Serum or Plasma Low 0.60-1.20 [place] Eosinophils Auto (Bld) [#/Vo l]Ordered By: Glenn Abdullahi on 05-16-2024 Eosinophils (Bld) [#/Vol] Automated eosinophil count 0.0-0.45 [facility] Eosinophils/100 WBC Auto (Bl d)Ordered By: Glenn Abdullahi on 05-16-2024 Eosinophils/100 WBC (Bld) Automated eosinophil % . [place] Erythrocyte distribution wid th Auto (RBC) [Ratio]Ordered By: Glenn Abdullahi on 05-16-2024 Erythrocyte distribution width (RBC) [Ratio] Erythrocyte distribution width [Ratio] by Automated count 11.9-15.3 [place] Globulin Calc (S) [Mass/Vol] Ordered By: Glenn Abdullahi on 05-16-2024 Globulin (S) [Mass/Vol] Serum globulin measurement by calculation (mass/volume) [place] Glucose [Mass/volume] in Ser um or PlasmaOrdered By: Glenn Abdullahi 05-16-2024 Glucose [Mass/Vol] Glucose [Mass/volume ] in Serum or Plasma High 70-100 [place] Comment on above: ADA recommended refe rence [...] in Urine by Test strip High Normal [place] HCG,Quantitativeon HCG,Quantitative 25845.00 m[iU]/mL Normal T [facility] Comment on above: Result Comment: Appr oximate Approximate hCG Gestational Age Range (mIU/ml) (weeks) 0.2-1 5-50 1-2 50-500 2-3 100-5,000 3-4 500-10,000 4-5 1,000-50,000 5-6 10,000-100,000 6-8 15,000-200,000 8-12 10,000-100,000 PERFORMED BY: [place] [address] PATHOLOGIST [employer]OC[employer] SARAH ANDREWS M.D. Performed By: #### H EPATIC, CBC, BMP, LIPASE #### [address] Hematocrit Auto (Bld) [Volum e fraction]Ordered By: Glenn Abdullahi on 05-16-2024 Hematocrit (Bld) [Volume fraction] Hematocrit [Volume Fraction] of Blood by Automated count Low 34.0-46.4 [place] Hemoglobin Test strip Ql (U) Ordered By: Glenn Abdullahi on 05-16-2024 Hemoglobin Ql (U) Hemoglobin [Presence ] in Urine by Test strip Negative [place] Hemoglobin [Mass/volume] in BloodOrdered By: Glenn Abdullahi on 05-16-2024 Hemoglobin (Bld) [Mass/Vol] Hemoglobin [Mass/volume] in Blood Low 11.8-15.4 [place] Hepatic Panelon 05-16-2024 Bilirubin,Indirect 0.4 mg/dL Normal [facility] Comment on above: Performed By: #### H EPATIC, CBC, BMP, LIPASE #### [address] Bilirubin.indirect [Mass/Vol] 0.00 mg/dL Low 0.03-0.18 [facility] Comment on above: Result Comment: If t DBIL is less than 0.1, IBIL is not able to be calculated. Performed By: #### H EPATIC, CBC, BMP, LIPASE #### [address] Ketones Test strip Ql (U)Ord ered By: Glenn Abdullahi on 05-16-2024 Ketones Ql (U) Ketones [Presence] i n Urine by Test strip High Negative [place] Leukocyte esterase [Presence ] in Urine by Test stripOrdered By: Glenn Abdullahi on 05-16-2024 Leukocyte esterase Test strip Ql (U) Leukocyte esterase [Presence] in Urine by Test strip Negative [place] Leukocytes [#/volume] correc rossy for nucleated erythrocytes in Blood by Automated counOrdered By: Glenn Abdullahi on 05-16-2024 WBC corrected for nucl RBC Auto (Bld) [#/Vol] Leukocytes [#/volume] corrected for nucleated erythrocytes in Blood by Automated coun High 3.8-11.6 [place] Lipaseon 05-16-2024 Lipase [Catalytic activity/Vol] 25.0 U/L Normal 11.0-82.0 [facility] Comment on above: Performed By: #### H EPATIC, CBC, BMP, LIPASE #### [address] Lipase [Enzymatic activity/v olume] in Serum or PlasmaOrdered By: Glenn Abdullahi on 05-16-2024 Lipase [Catalytic activity/Vol] Lipase [Enzymatic activity/volume] in Serum or Plasma 11.0-82.0 [place] Lymphocytes Auto (Bld) [#/Vo l]Ordered By: Glenn Abdullahi on 05-16-2024 Lymphocytes (Bld) [#/Vol] Lymphocytes [#/volume] in Blood by Automated count Low 1.00-4.8 [place] Lymphocytes/100 WBC Auto (Bl d)Ordered By: Glenn Abdullahi on 05-16-2024 Lymphocytes/100 WBC (Bld) Lymphocytes/100 leukocytes in Blood by Automated count . [place] MCH Auto (RBC) [Entitic mass ]Ordered By: Glenn Abdullahi on 05-16-2024 MCH (RBC) [Entitic mass] MCH [Entitic mass] by Automated count 24.7-34.3 [place] MCHC Auto (RBC) [Mass/Vol]Or dered By: Glenn Abdullahi on 05-16-2024 MCHC (RBC) [Mass/Vol] MCHC [Mass/volume] by Automated count 32.0-35.0 [place] MCV Auto (RBC) [Entitic vol] Ordered By: Glenn Abdullahi on 05-16-2024 MCV (RBC) [Entitic vol] MCV [Entitic volume] by Automated count 80-100 [place] Monocyte distribution width [Entitic volume] in Blood by AutomatedOrdered By: Glenn Abdullahi on 05-16-2024 Monocyte distribution width Auto (Bld) [Entitic vol] Monocyte distribution width [Entitic volume] in Blood by Automated 0.00-20.00 [place] Comment on above: Unable to calculate MDW because the Absolute Monocyte Count is <0.8. Monocytes Auto (Bld) [#/Vol] Ordered By: Glenn Abdlulahi on 05-16-2024 Monocytes (Bld) [#/Vol] Automated blood monocyte count 0.0-0.8 [place] Monocytes/100 WBC Auto (Bld) Ordered By: Glenn Abdullahi on 05-16-2024 Monocytes/100 WBC (Bld) Automated monocyte % . [place] Neutrophils Auto (Bld) [#/Vo l]Ordered By: Glenn Abdullahi on 05-16-2024 Neutrophils (Bld) [#/Vol] Neutrophils [#/volume] in Blood by Automated count High 1.8-7.7 [place] Neutrophils/100 WBC Auto (Bl d)Ordered By: Glenn Abdullahi on 05-16-2024 Neutrophils/100 WBC (Bld) Automated neutrophil % . [place] Nitrite Test strip Ql (U)Ord ered By: Glenn Abdullahi on 05-16-2024 Nitrite Ql (U) Nitrite [Presence] i n Urine by Test strip Negative [place] No Panel InformationOrdered By: Glenn Abdullahi on 05-16-2024 Estimated GFR (CKD-EPI) > 60.0 mL/Min [place] [facility] Creatinine Clearance (Chem 146.48 [place] Nucleated erythrocytes [Pres ence] in Blood by Automated countOrdered By: Glenn Abdullahi on 05-16-2024 Nucleated RBC Auto Ql (Bld) Nucleated erythrocytes [Presence] in Blood by Automated count 0-0.5 [place] Platelet mean volume Auto (B ld) [Entitic vol]Ordered By: Glenn Abdullahi on 05-16-2024 Platelet mean volume (Bld) [Entitic vol] Platelet mean volume [Entitic volume] in Blood by Automated count High 6.3-10.7 [place] Platelets Auto (Bld) [#/Vol] Ordered By: Glenn Abdullahi on 05-16-2024 Platelets (Bld) [#/Vol] Platelets [#/volume] in Blood by Automated count 150-450 [place] Potassium [Moles/volume] in Serum or PlasmaOrdered By: Glenn Abdullahi on 05-16-2024 Potassium [Moles/Vol] Potassium [Moles/v olume] in Serum or Plasma Low 3.5-5.1 [place] Comment on above: Hemolysis is present at a level that could interfere with the result.Contact lab if redraw is required Protein Test strip (U) [Mass /Vol]Ordered By: Glenn Abdullahi on 05-16-2024 Protein (U) [Mass/Vol] Protein [Mass/volume] in Urine by Test strip Negative [place] Protein [Mass/volume] in Ser um or PlasmaOrdered By: Glenn Abdullahi on 05-16-2024 Protein [Mass/Vol] Protein [Mass/volume ] in Serum or Plasma 6.4-8.9 [place] RBC Auto (Bld) [#/Vol]Ordere d By: Glenn Abdullahi on 05-16-2024 RBC (Bld) [#/Vol] Erythrocytes [#/volu me] in Blood by Automated count 3.60-5.00 [place] Serum or plasma albumin/glob ulin mass ratioOrdered By: Glenn Abdullahi 05-16-2024 Albumin/Globulin [Mass ratio] Serum or plasma albumin/globulin mass ratio [place] Serum or plasma anion gap de terminationOrdered By: Glenn Abdullahi on 05-16-2024 Anion gap [Moles/Vol] Serum or plasma an ion gap determination High 6.0-15.0 [place] Serum or plasma non-glucuron idated bilirubin measurement (mass/volume)Ordered By: Glenn Abdullahi on 05-16-2024 Bilirubin.indirect [Mass/Vol] Serum or plasma non-glucuronidated bilirubin measurement (mass/volume) [place] Sodium [Moles/volume] in Ser um or PlasmaOrdered By: Glenn Abdullahi on 05-16-2024 Sodium [Moles/Vol] Sodium [Moles/volume ] in Serum or Plasma 136-145 [place] Specific gravity Test strip (U) [Rel density]Ordered By: Glenn Abdullahi on 05-16-2024 Specific gravity (U) [Rel density] Specific gravity of Urine by Test strip 1.001-1.03 0 [place] Urea nitrogen [Mass/volume] in Serum or PlasmaOrdered By: Glenn Abdullahi on 05-16-2024 Urea nitrogen [Mass/Vol] Urea nitrogen [Mass/volume] in Serum or Plasma 7-25 [place] Urinalysison 05-16-2024 Appearance (U) Clear Normal Clear [facility] Comment on above: Order Comment: Name Collection Type:: Clean-Voided Midstream Performed By: #### U A #### [facility] [address] [place] [address] [place] Bilirubin,Urine Negative Normal Negative [facility] Comment on above: Order Comment: Name Collection Type:: Clean-Voided Midstream Performed By: #### U A #### [facility] [address] [place] [address] [place] Color (U) Light-Yellow Normal Yellow [facility] Comment on above: Order Comment: Name Collection Type:: Clean-Voided Midstream Performed By: #### U A #### [facility] [address] [place] [id number] [place] Glucose Ql (U) 500 mg/dL High Normal [facility] Comment on above: Order Comment: Name Collection Type:: Clean-Voided Midstream Performed By: #### U A #### [facility] [address] [place] [id number] [place] Ketones Ql (U) 4+ High Negative [facility] Comment on above: Order Comment: Name Collection Type:: Clean-Voided Midstream Performed By: #### U A #### [facility] [address] [place] [id number] [place] Leukocyte esterase Test strip Ql (U) Negative Normal Negative [facility] Comment on above: Order Comment: Name Collection Type:: Clean-Voided Midstream Performed By: #### U A #### [place] [address] [place] Nitrite,Urine Negative Normal Negative [facility] Comment on above: Order Comment: Name Collection Type:: Clean-Voided Midstream Performed By: #### U A #### [address] Occult Blood,Urine Negative Normal Negative [facility] Comment on above: Order Comment: Name Collection Type:: Clean-Voided Midstream Result Comment: PERF ORMED BY: [place] [address] PATHOLOGIST [employer] SARAH ANDREWS M.D. Performed By: #### U A #### [address] pH (U) 8.0 [pH] Normal 5.0-9.0 [facility] Comment on above: Order Comment: Name Collection Type:: Clean-Voided Midstream Performed By: #### U A #### [address] Protein,Urine Negative Normal Negative [facility] Comment on above: Order Comment: Name Collection Type:: Clean-Voided Midstream Performed By: #### U A #### [place] [address] [place] Specificy [place],Urine 1.020 Normal 1.001-1.03 0 [facility] Comment on above: Order Comment: Name Collection Type:: Clean-Voided Midstream Performed By: #### U A #### [place] [address] [place] Urobilinogen,Urine Normal Normal Normal [facility] Comment on above: Order Comment: Name Collection Type:: Clean-Voided Midstream Performed By: #### U A #### [address] Urobilinogen Test strip (U) [Mass/Vol]Ordered By: Glenn Abdullahi on 05-16-2024 Urobilinogen (U) [Mass/Vol] Urobilinogen [Mass/volume] in Urine by Test strip Normal [place] WBC Auto (Bld) [#/Vol]Ordere d By: Glenn Abdullahi on 05-16-2024 WBC (Bld) [#/Vol] Leukocytes [#/volume ] in Blood by Automated count High 3.8-11.6 [place] pH Test strip (U)Ordered By: Glenn Abdullahi on 05-16-2024 pH (U) pH of Urine by Test strip 5.0-9.0 [place] Urinalysis macro (dipstick) panel (U)Ordered By: Gloria Garcias on 04-24-2024 Bilirubin, UA Negative Negative - 4(70) +++ mg/dL [facility] Work Phone: Blood, UA Negative Negative - 50 Josiah/mcL [facility] Work Phone: Clarity, UA Clear [facility] Work Phone: Color, UA Yellow [facility] Work Phone: Glucose, UA Negative Negative - 1999(110) ++++ mg/dL [facility] Work Phone: Interpretation and review of laboratory results Abnormal [facility] Work Phone: Ketones, UA Negative Negative - 160(16) ++++ mg/dL [facility] Work Phone: Leukocytes, UA Negative Negative - 500+++ Archana/mcL [facility] Work Phone: Nitrite, UA Negative Negative - Positive [facility] Work Phone: pH, UA 6 5 - 9 [facility] Work Phone: Protein, UA Negative Negative - 2000(20) ++++ mg/dL [facility] Work Phone: Spec Grav, UA 1.03 1 - 1.03 [facility] Work Phone: Urobilinogen, UA 1.0 0.2 - 12 mg/dL [facility] Work Phone: [facility] Work Phone: Alanine aminotransferase [En zymatic activity/volume] in Serum or PlasmaOrdered By: Parminder Powell on 04-05-2024 ALT [Catalytic activity/Vol] Alanine aminotransferase [Enzymatic activity/volume] in Serum or Plasma 7-52 [place] Albumin [Mass/volume] in Ser um or Plasma by Bromocresol green (BCG) dye binding methoOrdered By: Parminder Powell on 04-05-2024 Albumin BCG dye [Mass/Vol] Albumin [Mass/volume] in Serum or Plasma by Bromocresol green (BCG) dye binding metho 3.5-5.7 [place] Alkaline phosphatase [Enzyma tic activity/volume] in Serum or PlasmaOrdered By: Parminder Powell on 04-05-2024 ALP [Catalytic activity/Vol] Alkaline phosphatase [Enzymatic activity/volume] in Serum or Plasma 34-104 [place] Appearance of UrineOrdered B y: Parminder Powell on 04-05-2024 Appearance (U) Urine appearance Clear [facility] Aspartate aminotransferase [ Enzymatic activity/volume] in Serum or PlasmaOrdered By: Parminder Powell on 04-05-2024 AST [Catalytic activity/Vol] Aspartate aminotransferase [Enzymatic activity/volume] in Serum or Plasma 13-39 [place] Bacteria [Presence] in Urine by AutomatedOrdered By: Parminder Powell on 04-05-2024 Bacteria Auto Ql (U) Bacteria [Presence] in Urine by Automated None Seen [place] Basophils Auto (Bld) [#/Vol] Ordered By: Parmidner Powell on 04-05-2024 Basophils (Bld) [#/Vol] Automated basophil count 0.0-0.2 [facility] Basophils/100 WBC Auto (Bld) Ordered By: Parminder Powell on 04-05-2024 Basophils/100 WBC (Bld) Automated basophil % . [place] Bilirubin Test strip Ql (U)O rdered By: Parminder Powell on 04-05-2024 Bilirubin Ql (U) Bilirubin.total [Pre sence] in Urine by Test strip Negative [place] Bilirubin.total [Mass/volume ] in Serum or PlasmaOrdered By: Parminder Powell on 04-05-2024 Bilirubin [Mass/Vol] Bilirubin.total [Mass/volume] in Serum or Plasma 0.3-1.0 [place] BioFire Not Detectedon 04-05 BioFire Not Detected Not detected Normal Not Detecte [facility] Comment on above: Result Comment: This is a duplicate RP2.1 COVID (PCR) result to be used for statistical tracking purpose only. PERFORMED BY: [place] [address] PATHOLOGIST [employer]OCIATE SARAH ANDREWS M.D. Performed By: #### A DDONUAPLUS, URDS, CUU #### [address] COVID-19 Detected/Not Detect edOrdered By: Parminder Powell on 04-05-2024 SARS-CoV-2 (COVID-19) RNA TORRES+non-probe Ql (Nph) Not detected Not Detecte [place] Comment on above: This is a duplicate RP2.1 COVID (PCR) result to be used for statistical tracking purpose only. Calcium [Mass/volume] in Ser um or PlasmaOrdered By: Parminder Powell on 04-05-2024 Calcium [Mass/Vol] Calcium [Mass/volume ] in Serum or Plasma 8.6-10.3 [place] Carbon dioxide, total [Moles /volume] in Serum or PlasmaOrdered By: Parminder Powell on 04-05-2024 CO2 [Moles/Vol] Carbon dioxide, tota l [Moles/volume] in Serum or Plasma Low 21.0-31.0 [place] Chloride [Moles/volume] in S mayte or PlasmaOrdered By: Parminder Powell on 04-05-2024 Chloride [Moles/Vol] Chloride [Moles/vol ume] in Serum or Plasma 98-107 [place] Color Auto (U)Ordered By: Eduar Powell on 04-05-2024 Color (U) Color of Urine by Auto [facility] Auto Di ffon 04-05-2024 Basophils (Bld) [#/Vol] 0.0 10*3/uL Normal 0.0-0.2 [facility] Comment on above: Result Comment: PERF ORMED BY: [place] [address] PATHOLOGIST [employer] ASSOCIATE SARAH ANDREWS M.D. Performed By: #### H EPATIC, CBC, BMP, LIPASE #### [address] Basophils/100 WBC (Bld) 0.2 % Normal . [facility] Comment on above: Performed By: #### H EPATIC, CBC, BMP, LIPASE #### [address] Eosinophils (Bld) [#/Vol] 0.0 10*3/uL Normal 0.0-0.45 [facility] Comment on above: Performed By: #### H EPATIC, CBC, BMP, LIPASE #### [address] Eosinophils/100 WBC (Bld) 0.0 % Normal . [facility] Comment on above: Performed By: #### H EPATIC, CBC, BMP, LIPASE #### [address] Erythrocyte distribution width (RBC) [Ratio] 14.5 % Normal 11.9-15.3 [facility] Comment on above: Performed By: #### H EPATIC, CBC, BMP, LIPASE #### [address] Hematocrit (Bld) [Volume fraction] 34.4 % Normal 34.0-46.4 [facility] Comment on above: Performed By: #### H EPATIC, CBC, BMP, LIPASE #### [address] Hemoglobin (Bld) [Mass/Vol] 11.4 g/dL Low 11.8-15.4 [facility] Comment on above: Performed By: #### H EPATIC, CBC, BMP, LIPASE #### [address] Lymphocytes (Bld) [#/Vol] 0.8 10*3/uL Low 1.00-4.8 [facility] Comment on above: Performed By: #### H EPATIC, CBC, BMP, LIPASE #### [address] Lymphocytes/100 WBC (Bld) 6.0 % Normal . [facility] Comment on above: Performed By: #### H EPATIC, CBC, BMP, LIPASE #### [address] MCH (RBC) [Entitic mass] 28.9 pg Normal 24.7-34.3 [facility] Comment on above: Performed By: #### H EPATIC, CBC, BMP, LIPASE #### [address] MCV (RBC) [Entitic vol] 86.9 fL Normal 80-100 [facility] Comment on above: Performed By: #### H EPATIC, CBC, BMP, LIPASE #### [address] Mean Corpuscular HGB Conc 33.2 g/dL Normal 32.0-35.0 [facility] Comment on above: Performed By: #### H EPATIC, CBC, BMP, LIPASE #### [address] Monocytes (Bld) [#/Vol] 0.3 10*3/uL Normal 0.0-0.8 [facility] Comment on above: Performed By: #### H EPATIC, CBC, BMP, LIPASE #### [address] Monocytes/100 WBC (Bld) 19.24 % Normal 0.00-20.00 [facility] Comment on above: Performed By: #### H EPATIC, CBC, BMP, LIPASE #### [address] Monocytes/100 WBC (Bld) 2.1 % Normal . [facility] Comment on above: Performed By: #### H EPATIC, CBC, BMP, LIPASE #### [address] Neutrophils (Bld) [#/Vol] 11.7 10*3/uL High 1.8-7.7 [facility] Comment on above: Performed By: #### H EPATIC, CBC, BMP, LIPASE #### [address] Neutrophils/100 WBC (Bld) 91.7 % Normal . [facility] Comment on above: Performed By: #### H EPATIC, CBC, BMP, LIPASE #### [address] NRBC% 0.0 /100{WBC} Normal 0-0.5 [facility] Comment on above: Performed By: #### H EPATIC, CBC, BMP, LIPASE #### [address] Platelet mean volume (Bld) [Entitic vol] 11.2 fL High 6.3-10.[address] [facility] Comment on above: Performed By: #### H EPATIC, CBC, BMP, LIPASE #### [place] [address] [place] Platelets (Bld) [#/Vol] 205 10*3/uL Normal 150-450 [facility] Comment on above: Performed By: #### H EPATIC, CBC, BMP, LIPASE #### [address] RBC (Bld) [#/Vol] 3.95 10*6/uL Normal 3.60-5.00 [facility] Comment on above: Performed By: #### H EPATIC, CBC, BMP, LIPASE #### [address] WBC (Bld) [#/Vol] 12.7 10*3/uL High 3.8-11.6 [facility] Comment on above: Performed By: #### H EPATIC, CBC, BMP, LIPASE #### [address] [address] [place] Comprehensive Metabolic Pane blanquita 04-05-2024 Albumin [Mass/Vol] 4.2 g/dL Normal 3.5-5.7 [facility] Comment on above: Performed By: #### H EPATIC, CBC, BMP, LIPASE #### [address] Albumin/Globulin [Mass ratio] 1.3 {ratio} Normal [facility] Comment on above: Performed By: #### H EPATIC, CBC, BMP, LIPASE #### [address] ALP [Catalytic activity/Vol] 60 U/L Normal 34-104 [facility] Comment on above: Performed By: #### H EPATIC, CBC, BMP, LIPASE #### [address] ALT [Catalytic activity/Vol] 20 U/L Normal 7-52 [facility] Comment on above: Performed By: #### H EPATIC, CBC, BMP, LIPASE #### [address] Anion gap [Moles/Vol] 15.3 mmol/L High 6.0-15.0 [facility] Comment on above: Performed By: #### H EPATIC, CBC, BMP, LIPASE #### [address] AST [Catalytic activity/Vol] 13 U/L Normal 13-39 [facility] Comment on above: Performed By: #### H EPATIC, CBC, BMP, LIPASE #### [address] Bilirubin [Mass/Vol] 0.5 mg/dL Normal 0.3-1.0 [facility] Comment on above: Performed By: #### H EPATIC, CBC, BMP, LIPASE #### [address] Calcium [Mass/Vol] 9.1 mg/dL Normal 8.6-10.3 [facility] Comment on above: Performed By: #### H EPATIC, CBC, BMP, LIPASE #### [facility] [address] Chloride [Moles/Vol] 106 mmol/L Normal 98-107 [facility] Comment on above: Performed By: #### H EPATIC, CBC, BMP, LIPASE #### [facility] [address] CO2 [Moles/Vol] 19.0 mmol/L Low 21.0-31.0 [facility] Comment on above: Performed By: #### H EPATIC, CBC, BMP, LIPASE #### [address] Creatinine [Mass/Vol] 0.41 mg/dL Low 0.60-1.20 [facility] Comment on above: Performed By: #### H EPATIC, CBC, BMP, LIPASE #### [address] Creatinine Clr Calc Pharmacy 181.93 Normal [facility] Comment on above: Performed By: #### H EPATIC, CBC, BMP, LIPASE #### [place] [address] [place] GFR/1.73 sq M.predicted MDRD (S/P/Bld) [Vol rate/Area] mL/min/{1.73_m2} Normal [facility] Comment on above: Performed By: #### H EPATIC, CBC, BMP, LIPASE #### [address] Globulin (S) [Mass/Vol] 3.2 g/dL Normal [facility] Comment on above: Performed By: #### H EPATIC, CBC, BMP, LIPASE #### [address] Glucose [Mass/Vol] 138 mg/dL High 70-100 [facility] Comment on above: Result Comment: [place] Glucose Reference Range is dependent on time and content of last meal. Glucose of more than 200 mg/dL in a nonstressed, ambulatory subject supports the diagnosis of Diabetes Mellitus. ADA recommended reference range Performed By: #### H EPATIC, CBC, BMP, LIPASE #### [address] Potassium [Moles/Vol] 3.3 mmol/L Low 3.5-5.1 [facility] Comment on above: Performed By: #### H EPATIC, CBC, BMP, LIPASE #### [address] Protein [Mass/Vol] 7.4 g/dL Normal 6.4-8.9 [facility] Comment on above: Performed By: #### H EPATIC, CBC, BMP, LIPASE #### [address] Sodium [Moles/Vol] 137 mmol/L Normal 136-145 [facility] Comment on above: Performed By: #### H EPATIC, CBC, BMP, LIPASE #### [address] Urea nitrogen [Mass/Vol] 9 mg/dL Normal 7-25 [facility] Comment on above: Performed By: #### H EPATIC, CBC, BMP, LIPASE #### [address] Creatinine [Mass/volume] in Serum or PlasmaOrdered By: Parminder Powell on 04-05-2024 Creatinine [Mass/Vol] Creatinine [Mass/v olume] in Serum or Plasma Low 0.60-1.20 [place] Dipstick and Microscopicon 0 04-05-2024 Appearance (U) Clear Normal Clear [facility] Comment on above: Order Comment: Name Collection Type:: Clean-Voided Midstream Performed By: #### A DDONUAPLUS #### [address] Bacteria,Urine None Seen Normal None Seen [facility] Comment on above: Order Comment: Name Collection Type:: Clean-Voided Midstream Performed By: #### A DDONUAPLUS #### [address] Bilirubin,Urine Negative Normal Negative [facility] Comment on above: Order Comment: Name Collection Type:: Clean-Voided Midstream Performed By: #### A DDONUAPLUS #### [address] Color (U) Light-Yellow Normal Yellow [facility] Comment on above: Order Comment: Name Collection Type:: Clean-Voided Midstream Performed By: #### A DDONUAPLUS #### [address] Glucose Ql (U) 150 mg/dL High Normal [facility] Comment on above: Order Comment: Name Collection Type:: Clean-Voided Midstream Performed By: #### A DDONUAPLUS #### [place] [address] [place] Hyaline Casts,Urine None Normal 0-[address] [facility] Comment on above: Order Comment: Name Collection Type:: Clean-Voided Midstream Performed By: #### A DDONUAPLUS #### [address] Ketones Ql (U) 4+ High Negative [facility] Comment on above: Order Comment: Name Collection Type:: Clean-Voided Midstream Performed By: #### A DDONUAPLUS #### [address] Leukocyte esterase Test strip Ql (U) 3+ High Negative [facility] Comment on above: Order Comment: Name Collection Type:: Clean-Voided Midstream Performed By: #### A DDONUAPLUS #### [place] [address] [place] Mucus,Urine Rare Normal [facility] Comment on above: Order Comment: Name Collection Type:: Clean-Voided Midstream Result Comment: PERF ORMED BY: [place] [address] PATHOLOGIST [employer] ASSOCIATE SARAH ANDREWS M.D. Performed By: #### A DDONUAPLUS #### [place] [address] [place] Nitrite,Urine Negative Normal Negative [facility] Comment on above: Order Comment: Name Collection Type:: Clean-Voided Midstream Performed By: #### A DDONUAPLUS #### [address] Occult Blood,Urine Negative Normal Negative [facility] Comment on above: Order Comment: Name Collection Type:: Clean-Voided Midstream Result Comment: PERF ORMED BY: [place] [address] PATHOLOGIST [employer] SAL[employer] ASSOCIATE SARAH ANDREWS M.D. Performed By: #### A DDONUAPLUS #### [address] pH (U) 6.5 [pH] Normal 5.0-9.0 [facility] Comment on above: Order Comment: Name Collection Type:: Clean-Voided Midstream Performed By: #### A DDONUAPLUS #### [address] Protein,Urine Negative Normal Negative [facility] Comment on above: Order Comment: Name Collection Type:: Clean-Voided Midstream Performed By: #### A DDONUAPLUS #### [address] RBC,Urine 1 [HPF] Normal 0-4 [facility] Comment on above: Order Comment: Name Collection Type:: Clean-Voided Midstream Performed By: #### A DDONUAPLUS #### [place] [address] [place] Specificy [place],Urine 1.018 Normal 1.001-1.03 0 [facility] Comment on above: Order Comment: Name Collection Type:: Clean-Voided Midstream Performed By: #### A DDONUAPLUS #### [place] [address] [place] Squamous Epithelial Cell,Urine 3 [HPF] High 0-2 [facility] Comment on above: Order Comment: Name Collection Type:: Clean-Voided Midstream Performed By: #### A DDONUAPLUS #### [facility] [address] Urobilinogen,Urine Normal Normal Normal [facility] Comment on above: Order Comment: Name Collection Type:: Clean-Voided Midstream Performed By: #### A DDONUAPLUS #### [facility] [address] WBC,Urine 3 [HPF] Normal 0-4 [facility] Comment on above: Order Comment: Name Collection Type:: Clean-Voided Midstream Performed By: #### A DDONUAPLUS #### [facility] [address] Eosinophils Auto (Bld) [#/Vo l]Ordered By: Parminder Powell on 04-05-2024 Eosinophils (Bld) [#/Vol] Automated eosinophil count 0.0-0.45 [facility] Eosinophils/100 WBC Auto (Bl d)Ordered By: Parminder Powell on 04-05-2024 Eosinophils/100 WBC (Bld) Automated eosinophil % . [place] Epithelial cells.squamous [# /area] in Urine sediment by Automated countOrdered By: Parminder Powell on 04-05-2024 Epithelial cells.squamous Auto (Urine sed) [#/Area] Epithelial cells.squamous [#/area] in Urine sediment by Automated count High 0-2 [place] Erythrocyte distribution wid th Auto (RBC) [Ratio]Ordered By: Parminder Powell on 04-05-2024 Erythrocyte distribution width (RBC) [Ratio] Erythrocyte distribution width [Ratio] by Automated count 11.9-15.3 [place] Erythrocytes [#/area] in Uri ne sediment by Automated countOrdered By: Parminder Powell on 04-05-2024 RBC Auto (Urine sed) [#/Area] Erythrocytes [#/area] in Urine sediment by Automated count 0-4 [place] Globulin Calc (S) [Mass/Vol] Ordered By: Parminder Powell on 04-05-2024 Globulin (S) [Mass/Vol] Serum globulin measurement by calculation (mass/volume) [place] Glucose [Mass/volume] in Ser um or PlasmaOrdered By: Parminder Powell on 04-05-2024 Glucose [Mass/Vol] Glucose [Mass/volume ] in Serum or Plasma High 70-100 [place] Comment on above: ADA recommended refe rence [...] in Urine by Test strip High Normal [place] Hematocrit Auto (Bld) [Volum e fraction]Ordered By: Parminder Powell on 04-05-2024 Hematocrit (Bld) [Volume fraction] Hematocrit [Volume Fraction] of Blood by Automated count 34.0-46.4 [place] Hemoglobin Test strip Ql (U) Ordered By: Parminder Powell on 04-05-2024 Hemoglobin Ql (U) Hemoglobin [Presence ] in Urine by Test strip Negative [place] Hemoglobin [Mass/volume] in BloodOrdered By: Parminder Powell on 04-05-2024 Hemoglobin (Bld) [Mass/Vol] Hemoglobin [Mass/volume] in Blood Low 11.8-15.4 [place] Hyaline casts [#/area] in Ur ine sediment by Automated countOrdered By: Parminder Powell on 04-05-2024 Hyaline casts Auto (Urine sed) [#/Area] Hyaline casts [#/area] in Urine sediment by Automated count 0-8 [place] Ketones Test strip Ql (U)Ord ered By: Parminder Powell on 04-05-2024 Ketones Ql (U) Ketones [Presence] i n Urine by Test strip High Negative [place] Leukocyte esterase [Presence ] in Urine by Test stripOrdered By: Parminder Powell on 04-05-2024 Leukocyte esterase Test strip Ql (U) Leukocyte esterase [Presence] in Urine by Test strip High Negative [place] Leukocytes [#/area] in Urine sediment by Automated countOrdered By: Parminder Powell on 04-05-2024 WBC Auto (Urine sed) [#/Area] Leukocytes [#/area] in Urine sediment by Automated count 0-4 [place] Leukocytes [#/volume] correc rossy for nucleated erythrocytes in Blood by Automated counOrdered By: Parminder Powell on 04-05-2024 WBC corrected for nucl RBC Auto (Bld) [#/Vol] Leukocytes [#/volume] corrected for nucleated erythrocytes in Blood by Automated coun High 3.8-11.6 [place] Lipaseon 04-05-2024 Lipase [Catalytic activity/Vol] 11.0 U/L Normal 11.0-82.0 [facility] Comment on above: Result Comment: PERF ORMED BY: [place] [address] PATHOLOGIST [employer] ASSOCIATE SARAH ANDREWS M.D. Performed By: #### H EPATIC, CBC, BMP, LIPASE #### [address] Lipase [Enzymatic activity/v olume] in Serum or PlasmaOrdered By: Parminder Powell on 04-05-2024 Lipase [Catalytic activity/Vol] Lipase [Enzymatic activity/volume] in Serum or Plasma 11.0-82.0 [place] Lymphocytes Auto (Bld) [#/Vo l]Ordered By: Parminder Powell on 04-05-2024 Lymphocytes (Bld) [#/Vol] Lymphocytes [#/volume] in Blood by Automated count Low 1.00-4.8 [place] Lymphocytes/100 WBC Auto (Bl d)Ordered By: Parminder Powell on 04-05-2024 Lymphocytes/100 WBC (Bld) Lymphocytes/100 leukocytes in Blood by Automated count . [place] MCH Auto (RBC) [Entitic mass ]Ordered By: aPrminder Powell on 04-05-2024 MCH (RBC) [Entitic mass] MCH [Entitic mass] by Automated count 24.7-34.3 [place] MCHC Auto (RBC) [Mass/Vol]Or dered By: Parminder Powell on 04-05-2024 MCHC (RBC) [Mass/Vol] MCHC [Mass/volume] by Automated count 32.0-35.0 [place] MCV Auto (RBC) [Entitic vol] Ordered By: Parminder Powell on 04-05-2024 MCV (RBC) [Entitic vol] MCV [Entitic volume] by Automated count 80-100 [place] Monocyte distribution width [Entitic volume] in Blood by AutomatedOrdered By: Parminder oPwell on 04-05-2024 Monocyte distribution width Auto (Bld) [Entitic vol] Monocyte distribution width [Entitic volume] in Blood by Automated 0.00-20.00 [place] Monocytes Auto (Bld) [#/Vol] Ordered By: Parminder Powell on 04-05-2024 Monocytes (Bld) [#/Vol] Automated blood monocyte count 0.0-0.8 [place] Monocytes/100 WBC Auto (Bld) Ordered By: Parminder Powell on 04-05-2024 Monocytes/100 WBC (Bld) Automated monocyte % . [place] Mucus [Presence] in Urine by AutomatedOrdered By: Parminder Powell on 04-05-2024 Mucus Auto Ql (U) Mucus [Presence] in Urine by Automated [place] Neutrophils Auto (Bld) [#/Vo l]Ordered By: Parminder Powell on 04-05-2024 Neutrophils (Bld) [#/Vol] Neutrophils [#/volume] in Blood by Automated count High 1.8-7.7 [place] Neutrophils/100 WBC Auto (Bl d)Ordered By: Parminder Powell on 04-05-2024 Neutrophils/100 WBC (Bld) Automated neutrophil % . [place] Nitrite Test strip Ql (U)Ord ered By: Parminder Powell on 04-05-2024 Nitrite Ql (U) Nitrite [Presence] i n Urine by Test strip Negative [place] No Panel InformationOrdered By: Parminder Powell on 04-05-2024 Estimated GFR (CKD-EPI) > 60.0 mL/Min [facility] Creatinine Clearance (Chem 181.93 [place] Nucleated erythrocytes [Pres ence] in Blood by Automated countOrdered By: Parminder Powell on 04-05-2024 Nucleated RBC Auto Ql (Bld) Nucleated erythrocytes [Presence] in Blood by Automated count 0-0.5 [facility] Platelet mean volume Auto (B ld) [Entitic vol]Ordered By: Parminder Powell on 04-05-2024 Platelet mean volume (Bld) [Entitic vol] Platelet mean volume [Entitic volume] in Blood by Automated count High 6.3-10.7 [place] Platelets Auto (Bld) [#/Vol] Ordered By: Parminder Powell on 04-05-2024 Platelets (Bld) [#/Vol] Platelets [#/volume] in Blood by Automated count 150-450 [facility] Potassium [Moles/volume] in Serum or PlasmaOrdered By: Parminder Powell on 04-05-2024 Potassium [Moles/Vol] Potassium [Moles/v olume] in Serum or Plasma Low 3.5-5.1 [facility] Protein Test strip (U) [Mass /Vol]Ordered By: Parminder Powell on 04-05-2024 Protein (U) [Mass/Vol] Protein [Mass/volume] in Urine by Test strip Negative [facility] Protein [Mass/volume] in Ser um or PlasmaOrdered By: Parminder Powell on 04-05-2024 Protein [Mass/Vol] Protein [Mass/volume ] in Serum or Plasma 6.4-8.9 [place] RBC Auto (Bld) [#/Vol]Ordere d By: Parminder Powell on 04-05-2024 RBC (Bld) [#/Vol] Erythrocytes [#/volu me] in Blood by Automated count 3.60-5.00 [facility] Respiratory (Upper) Panel, P CRon 04-05-2024 Respiratory [...] A H3 Blank Space -- PERFORMED BY: [facility] [address] [place] [address] PATHOLOGIST [employer]OC[employer]ATE SARAH ANDREWS M.D. Normal [facility] Comment on above: Performed By: #### A RAFAEL GORDON CUU #### [address] Respiratory pathogens DNA an d RNA panel - Nasopharynx by TORRES with non-probe detectionOrdered By: Parminder Powell on 04-05-2024 Respiratory pathogens DNA and RNA panel TORRES+non-probe (Nph) Respiratory pathogens DNA and RNA panel - Nasopharynx by TORRES with non-probe detection [place] Respiratory pathogens DNA and RNA panel TORRES+non-probe (Nph) Respiratory pathogens DNA and RNA panel - Nasopharynx by TORRES with non-probe detection [place] Serum or plasma albumin/glob ulin mass ratioOrdered By: Parminder Powell 04-05-2024 Albumin/Globulin [Mass ratio] Serum or plasma albumin/globulin mass ratio [facility] Serum or plasma anion gap de terminationOrdered By: Parminder Powell 04-05-2024 Anion gap [Moles/Vol] Serum or plasma an ion gap determination High 6.0-15.0 [place] Sodium [Moles/volume] in Ser um or PlasmaOrdered By: Parminder Powell 04-05-2024 Sodium [Moles/Vol] Sodium [Moles/volume ] in Serum or Plasma 136-145 [place] Specific gravity Test strip (U) [Rel density]Ordered By: Parminder Powell on 04-05-2024 Specific gravity (U) [Rel density] Specific gravity of Urine by Test strip 1.001-1.03 0 [facility] Urea nitrogen [Mass/volume] in Serum or PlasmaOrdered By: Parminder Powell on 04-05-2024 Urea nitrogen [Mass/Vol] Urea nitrogen [Mass/volume] in Serum or Plasma 10-13 [place] Urobilinogen Test strip (U) [Mass/Vol]Ordered By: Parminder Powell on 04-05-2024 Urobilinogen (U) [Mass/Vol] Urobilinogen [Mass/volume] in Urine by Test strip Normal [facility] WBC Auto (Bld) [#/Vol]Ordere d By: Parminder Powell on 04-05-2024 WBC (Bld) [#/Vol] Leukocytes [#/volume ] in Blood by Automated count High 3.8-11.6 [place] pH Test strip (U)Ordered By: Parminder Powell on 04-05-2024 pH (U) pH of Urine by Test strip 5.0-9.0 [place] BOX TESTon 04-03-2024 BOX TEST SENT OUT [facility] BOX1 [facility] BOX2 04/03/24 [facility] HCG ( test) Ql (U)o n 03-24-2024 Interpretation and review of laboratory results Abnormal [facility] Preg Test, Ur Positive Negative [facility] US OB TRANSVAGINALon 025 US OB TRANSVAGINAL [...] x 5.5 cm (8 weeks, 6 days). [place] rump length is 2.1 cm (8 weeks, [...] UA Positive Negative - 4(70) +++ mg/dL [facility] Comment on above: small Blood, UA Negative Negative - 50 Josiah/mcL [facility] Clarity, UA Clear [facility] Color, UA Yellow [facility] Glucose, UA Negative Negative - 2000(110) ++++ mg/dL [facility] Interpretation and review of laboratory results Abnormal [facility] Ketones, UA Positive Negative - 160(16) ++++ mg/dL [facility] Comment on above: trace Leukocytes, UA Positive Negative - 500+++ Archana/mcL [facility] Comment on above: small Nitrite, UA Negative Negative - Positive [facility] pH, UA 6.5 5 - 9 [facility] Protein, UA Positive Negative - 2000(20) ++++ mg/dL [facility] Comment on above: 30 mg Spec Grav, UA 1.025 1 - 1.03 [facility] Urobilinogen, UA 1.0 0.2 - 12 mg/dL [facility] Alanine aminotransferase [En zymatic activity/volume] in Serum or PlasmaOrdered By: Surjit Stanton on 03-04-2024 ALT [Catalytic activity/Vol] Alanine aminotransferase [Enzymatic activity/volume] in Serum or Plasma [place] Albumin [Mass/volume] in Ser um or Plasma by Bromocresol green (BCG) dye binding methoOrdered By: Surjit Stanton on 03-04-2024 Albumin BCG dye [Mass/Vol] Albumin [Mass/volume] in Serum or Plasma by Bromocresol green (BCG) dye binding metho 3.5-5.7 [place] Alkaline phosphatase [Enzyma tic activity/volume] in Serum or PlasmaOrdered By: Surjit Stanton on 03-04-2024 ALP [Catalytic activity/Vol] Alkaline phosphatase [Enzymatic activity/volume] in Serum or Plasma Low 34-104 [place] Anisocytosis LM Ql (Bld)Orde red By: Surjit Stanton on 03-04-2024 Anisocytosis Ql (Bld) Anisocytosis [Pres ence] in Blood by Light microscopy [place] Appearance of UrineOrdered B y: Surjit Stanton on 03-04-2024 Appearance (U) Urine appearance Clear [facility] Aspartate aminotransferase [ Enzymatic activity/volume] in Serum or PlasmaOrdered By: Surjit Stanton on 03-04-2024 AST [Catalytic activity/Vol] Aspartate aminotransferase [Enzymatic activity/volume] in Serum or Plasma 13-39 [place] Bacteria [Presence] in Urine by AutomatedOrdered By: Surjit Stanton on 03-04-2024 Bacteria Auto Ql (U) Bacteria [Presence] in Urine by Automated None Seen [place] Basic Metabolic Panelon 02-19 Anion gap [Moles/Vol] 12.2 mmol/L Normal 6.0-15.0 [facility] Comment on above: Performed By: #### H EPATIC, CBC, BMP, LIPASE #### [facility] [address] Calcium [Mass/Vol] 9.4 mg/dL Normal 8.6-10.3 [facility] Comment on above: Performed By: #### H EPATIC, CBC, BMP, LIPASE #### [facility] [address] [place] [address] [place] Chloride [Moles/Vol] 109 mmol/L High 98-107 [facility] Comment on above: Performed By: #### H EPATIC, CBC, BMP, LIPASE #### [facility] [address] [place] [address] [place] CO2 [Moles/Vol] 21.1 mmol/L Normal 21.0-31.0 [facility] Comment on above: Performed By: #### H EPATIC, CBC, BMP, LIPASE #### [facility] [address] Creatinine [Mass/Vol] 0.60 mg/dL Normal 0.60-1.20 [facility] Comment on above: Performed By: #### H EPATIC, CBC, BMP, LIPASE #### [place] [address] [place] Creatinine Clr Calc Pharmacy 122.59 Normal [facility] Comment on above: Performed By: #### H EPATIC, CBC, BMP, LIPASE #### [place] [address] [place] GFR/1.73 sq M.predicted MDRD (S/P/Bld) [Vol rate/Area] mL/min/{1.73_m2} Normal [facility] Comment on above: Performed By: #### H EPATIC, CBC, BMP, LIPASE #### [address] Glucose [Mass/Vol] 134 mg/dL High 70-100 [facility] Comment on above: Result Comment: [place] Glucose Reference Range is dependent on time and content of last meal. Glucose of more than 200 mg/dL in a nonstressed, ambulatory subject supports the diagnosis of Diabetes Mellitus. ADA recommended reference range Performed By: #### H EPATIC, CBC, BMP, LIPASE #### [address] Potassium [Moles/Vol] 3.3 mmol/L Low 3.5-5.1 [facility] Comment on above: Performed By: #### H EPATIC, CBC, BMP, LIPASE #### [address] Sodium [Moles/Vol] 139 mmol/L Normal 136-145 [facility] Comment on above: Performed By: #### H EPATIC, CBC, BMP, LIPASE #### [address] [place] [address] [facility] Urea nitrogen [Mass/Vol] 8 mg/dL Normal 7-25 [facility] Comment on above: Performed By: #### H EPATIC, CBC, BMP, LIPASE #### [facility] [address] Basophils Auto (Bld) [#/Vol] Ordered By: Surjit Stanton on 03-04-2024 Basophils (Bld) [#/Vol] Automated basophil count 0.0-0.2 [facility] Basophils/100 WBC Auto (Bld) Ordered By: Surjit Stanton on 03-04-2024 Basophils/100 WBC (Bld) Automated basophil % . [place] Bilirubin Test strip Ql (U)O rdered By: Surjit Stanton on 03-04-2024 Bilirubin Ql (U) Bilirubin.total [Pre sence] in Urine by Test strip Negative [place] Bilirubin.direct [Mass/volum e] in Serum or PlasmaOrdered By: Surjit Stanton on 03-04-2024 Bilirubin.direct [Mass/Vol] Bilirubin.direct [Mass/volume] in Serum or Plasma 0.03-0.18 [place] Bilirubin.total [Mass/volume ] in Serum or PlasmaOrdered By: Surjit Stanton on 03-04-2024 Bilirubin [Mass/Vol] Bilirubin.total [Mass/volume] in Serum or Plasma 0.3-1.0 [place] Calcium [Mass/volume] in Ser um or PlasmaOrdered By: Surjit Stanton on 03-04-2024 Calcium [Mass/Vol] Calcium [Mass/volume ] in Serum or Plasma 8.6-10.3 [place] Carbon dioxide, total [Moles /volume] in Serum or PlasmaOrdered By: Surjit Stanton on 03-04-2024 CO2 [Moles/Vol] Carbon dioxide, tota l [Moles/volume] in Serum or Plasma 21.0-31.0 [place] Chloride [Moles/volume] in S mayte or PlasmaOrdered By: Surjit Stanton on 03-04-2024 Chloride [Moles/Vol] Chloride [Moles/vol ume] in Serum or Plasma High 98-107 [place] Choriogonadotropin.beta subu nit [Units/volume] in Serum or PlasmaOrdered By: Surjit Stanton on 03-04-2024 HCG.beta subunit Qn Choriogonadotropin.b eta subunit [Units/volume] in Serum or Plasma [facility] Comment on above: Approximate Approxim ate hCG Gestational Age Range (mIU/ml) (weeks)0.2-1 5-50 1-2 50-500 2-3 100-5,000 3-4 500-10,000 4-5 1,000-50,000 5-6 10,000-100,000 6-8 15,000-200,000 8-12 10,000-100,000 Color Auto (U)Ordered By: Neri Stanton on 03-04-2024 Color (U) Color of Urine by Auto Yellow [facility] Creatinine [Mass/volume] in Serum or PlasmaOrdered By: Surjit Stanton on 03-04-2024 Creatinine [Mass/Vol] Creatinine [Mass/v olume] in Serum or Plasma 0.60-1.20 [place] Dipstick and Microscopicon 1 05-05-2023 Appearance (U) Clear Normal Clear [facility] Comment on above: Order Comment: Name Collection Type:: Clean-Voided Midstream Performed By: #### A DDONUAPLUS #### [facility] [address] [place] [id number] [place] Bacteria,Urine Rare Normal None Seen [facility] Comment on above: Order Comment: Name Collection Type:: Clean-Voided Midstream Performed By: #### A DDONUAPLUS #### [facility] [address] [place] [address] [place] Bilirubin,Urine Negative Normal Negative [facility] Comment on above: Order Comment: Name Collection Type:: Clean-Voided Midstream Performed By: #### A DDONUAPLUS #### [facility] [address] [place] [address] [place] Color (U) Light-Yellow Normal Yellow [facility] Comment on above: Order Comment: Name Collection Type:: Clean-Voided Midstream Performed By: #### A DDONUAPLUS #### [facility] [address] Glucose Ql (U) Normal Normal Normal [facility] Comment on above: Order Comment: Name Collection Type:: Clean-Voided Midstream Performed By: #### A DDONUAPLUS #### [facility] [address] [place] [address] [place] Hyaline Casts,Urine None Normal 0-[address] [facility] Comment on above: Order Comment: Name Collection Type:: Clean-Voided Midstream Performed By: #### A DDONUAPLUS #### [place] [address] [place] Ketones Ql (U) 2+ High Negative [facility] Comment on above: Order Comment: Name Collection Type:: Clean-Voided Midstream Performed By: #### A DDONUAPLUS #### [place] [address] [place] Leukocyte esterase Test strip Ql (U) Negative Normal Negative [facility] Comment on above: Order Comment: Name Collection Type:: Clean-Voided Midstream Performed By: #### A DDONUAPLUS #### [place] [address] [place] Mucus,Urine 2+ Critically abnormal [facility] Comment on above: Order Comment: Name Collection Type:: Clean-Voided Midstream Result Comment: PERF ORMED BY: [place] [address] PATHOLOGIST [employer] SALES ASSOCIATE SARAH ANDREWS M.D. Performed By: #### A DDONUAPLUS #### [place] [address] [place] Nitrite,Urine Negative Normal Negative [facility] Comment on above: Order Comment: Name Collection Type:: Clean-Voided Midstream Performed By: #### A DDONUAPLUS #### [place] [address] [place] Occult Blood,Urine Negative Normal Negative [facility] Comment on above: Order Comment: Name Collection Type:: Clean-Voided Midstream Result Comment: PERF ORMED BY: [place] [address] PATHOLOGIST COMM[employer] SALES ASSOCIATE SARAH ANDREWS M.D. Performed By: #### A DDONUAPLUS #### [address] pH (U) 8.5 [pH] Normal 5.0-9.0 [facility] Comment on above: Order Comment: Name Collection Type:: Clean-Voided Midstream Performed By: #### A DDONUAPLUS #### [address] Protein (U) [Mass/Vol] 20 mg/dL High Negative [facility] Comment on above: Order Comment: Name Collection Type:: Clean-Voided Midstream Performed By: #### A DDONUAPLUS #### [address] RBC,Urine 3 [HPF] Normal 0-4 [facility] Comment on above: Order Comment: Name Collection Type:: Clean-Voided Midstream Performed By: #### A DDONUAPLUS #### [address] Specificy [place],Urine 1.023 Normal 1.001-1.03 0 [facility] Comment on above: Order Comment: Name Collection Type:: Clean-Voided Midstream Performed By: #### A DDONUAPLUS #### [place] [address] [place] Squamous Epithelial Cell,Urine 5 [HPF] High 0-2 [facility] Comment on above: Order Comment: Name Collection Type:: Clean-Voided Midstream Performed By: #### A DDONUAPLUS #### [address] Urobilinogen,Urine Normal Normal Normal [facility] Comment on above: Order Comment: Name Collection Type:: Clean-Voided Midstream Performed By: #### A DDONUAPLUS #### [place] [address] [place] WBC,Urine 1 [HPF] Normal 0-4 [facility] Comment on above: Order Comment: Name Collection Type:: Clean-Voided Midstream Performed By: #### A DDONUAPLUS #### [facility] [address] Eosinophils Auto (Bld) [#/Vo l]Ordered By: Surjit Stanton on 03-04-2024 Eosinophils (Bld) [#/Vol] Automated eosinophil count 0.0-0.45 [facility] Eosinophils/100 WBC Auto (Bl d)Ordered By: Surjit Stanton on 03-04-2024 Eosinophils/100 WBC (Bld) Automated eosinophil % . [place] Epithelial cells.squamous [# /area] in Urine sediment by Automated countOrdered By: Surjit Stanton on 03-04-2024 Epithelial cells.squamous Auto (Urine sed) [#/Area] Epithelial cells.squamous [#/area] in Urine sediment by Automated count High 0-2 [place] Erythrocyte distribution wid th Auto (RBC) [Ratio]Ordered By: Surjit Stanton on 03-04-2024 Erythrocyte distribution width (RBC) [Ratio] Erythrocyte distribution width [Ratio] by Automated count 11.9-15.3 [place] Erythrocyte morphology findi ng [Identifier] in BloodOrdered By: Surjit Stanton on 03-04-2024 RBC morphology finding Nom (Bld) RBC morphology Normal [place] Erythrocytes [#/area] in Uri ne sediment by Automated countOrdered By: Surjit Stanton on 03-04-2024 RBC Auto (Urine sed) [#/Area] Erythrocytes [#/area] in Urine sediment by Automated count 0-4 [place] Globulin Calc (S) [Mass/Vol] Ordered By: Surjit Stanton on 03-04-2024 Globulin (S) [Mass/Vol] Serum globulin measurement by calculation (mass/volume) [place] Glucose [Mass/volume] in Ser um or PlasmaOrdered By: Surjit Stanton on 03-04-2024 Glucose [Mass/Vol] Glucose [Mass/volume ] in Serum or Plasma High 70-100 [place] Comment on above: ADA recommended refe rence rangeRandom Glucose Reference Range is dependent on time and content of last meal. Glucose of more than 200 mg/dL in a nonstressed, ambulatory subject supports the diagnosis of Diabetes Mellitus. Glucose [Mass/volume] in Uri ne by Test stripOrdered By: Surjit Stanton on 03-04-2024 Glucose Test strip (U) [Mass/Vol] Glucose [Mass/volume] in Urine by Test strip Normal [place] HCG,Quantitativeon HCG,Quantitative 53630.00 m[iU]/mL Normal T [facility] Comment on above: Result Comment: Appr oximate Approximate hCG Gestational Age Range (mIU/ml) (weeks) 0.2-1 5-50 1-2 50-500 2-3 100-5,000 3-4 500-10,000 4-5 1,000-50,000 5-6 10,000-100,000 6-8 15,000-200,000 8-12 10,000-100,000 PERFORMED BY: [place] [address] PATHOLOGIST [employer] SAL[employer] ASSOCIATE SARAH ANDREWS M.D. Performed By: #### H EPATIC, CBC, BMP, LIPASE #### [address] Hematocrit Auto (Bld) [Volum e fraction]Ordered By: Surjit Stanton on 03-04-2024 Hematocrit (Bld) [Volume fraction] Hematocrit [Volume Fraction] of Blood by Automated count 34.0-46.4 [place] Hemoglobin Test strip Ql (U) Ordered By: Surjit Stanton on 03-04-2024 Hemoglobin Ql (U) Hemoglobin [Presence ] in Urine by Test strip Negative [place] Hemoglobin [Mass/volume] in BloodOrdered By: Surjit Stanton on 03-04-2024 Hemoglobin (Bld) [Mass/Vol] Hemoglobin [Mass/volume] in Blood 11.8-15.4 [place] Hepatic Panelon 03-04-2024 Albumin [Mass/Vol] 4.6 g/dL Normal 3.5-5.7 [facility] Comment on above: Performed By: #### H EPATIC, CBC, BMP, LIPASE #### [address] Albumin/Globulin [Mass ratio] 1.6 {ratio} Normal [facility] Comment on above: Performed By: #### H EPATIC, CBC, BMP, LIPASE #### [address] ALP [Catalytic activity/Vol] 32 U/L Low 34-104 [facility] Comment on above: Performed By: #### H EPATIC, CBC, BMP, LIPASE #### [address] ALT [Catalytic activity/Vol] 16 U/L Normal 7-52 [facility] Comment on above: Performed By: #### H EPATIC, CBC, BMP, LIPASE #### [address] AST [Catalytic activity/Vol] 14 U/L Normal 13-39 [facility] Comment on above: Performed By: #### H EPATIC, CBC, BMP, LIPASE #### [address] Bilirubin [Mass/Vol] 0.7 mg/dL Normal 0.3-1.0 [facility] Comment on above: Performed By: #### H EPATIC, CBC, BMP, LIPASE #### [address] Bilirubin,Indirect 0.6 mg/dL Normal [facility] Comment on above: Performed By: #### H EPATIC, CBC, BMP, LIPASE #### [address] Bilirubin.indirect [Mass/Vol] 0.10 mg/dL Normal 0.03-0.18 [facility] Comment on above: Performed By: #### H EPATIC, CBC, BMP, LIPASE #### [address] Globulin (S) [Mass/Vol] 2.9 g/dL Normal [facility] Comment on above: Performed By: #### H EPATIC, CBC, BMP, LIPASE #### [facility] [address] Protein [Mass/Vol] 7.5 g/dL Normal 6.4-8.9 [facility] Comment on above: Performed By: #### H EPATIC, CBC, BMP, LIPASE #### [facility] [address] Hyaline casts [#/area] in Ur ine sediment by Automated countOrdered By: Surjit Stanton on 03-04-2024 Hyaline casts Auto (Urine sed) [#/Area] Hyaline casts [#/area] in Urine sediment by Automated count 0-8 [place] Ketones Test strip Ql (U)Ord ered By: Surjit Stanton on 03-04-2024 Ketones Ql (U) Ketones [Presence] i n Urine by Test strip High Negative [place] Leukocyte esterase [Presence ] in Urine by Test stripOrdered By: Surjit Stanton on 03-04-2024 Leukocyte esterase Test strip Ql (U) Leukocyte esterase [Presence] in Urine by Test strip Negative [place] Leukocytes [#/area] in Urine sediment by Automated countOrdered By: Surjit Stanton on 03-04-2024 WBC Auto (Urine sed) [#/Area] Leukocytes [#/area] in Urine sediment by Automated count 0-4 [place] Leukocytes [#/volume] correc rossy for nucleated erythrocytes in Blood by Automated counOrdered By: Surjit Stanton on 03-04-2024 WBC corrected for nucl RBC Auto (Bld) [#/Vol] Leukocytes [#/volume] corrected for nucleated erythrocytes in Blood by Automated coun 3.8-11.6 [place] Lipaseon 03-04-2024 Lipase [Catalytic activity/Vol] 15.0 U/L Normal 11.0-82.0 [facility] Comment on above: Performed By: #### H EPATIC, CBC, BMP, LIPASE #### [facility] [address] [place] [address] [place] Lipase [Enzymatic activity/v olume] in Serum or PlasmaOrdered By: Surjit Stanton on 03-04-2024 Lipase [Catalytic activity/Vol] Lipase [Enzymatic activity/volume] in Serum or Plasma 11.0-82.0 [place] Lymphocytes Auto (Bld) [#/Vo l]Ordered By: Surjit Stanton on 03-04-2024 Lymphocytes (Bld) [#/Vol] Lymphocytes [#/volume] in Blood by Automated count 1.00-4.8 [place] Lymphocytes/100 WBC Auto (Bl d)Ordered By: Surjit Stanton on 03-04-2024 Lymphocytes/100 WBC (Bld) Lymphocytes/100 leukocytes in Blood by Automated count . [place] MCH Auto (RBC) [Entitic mass ]Ordered By: Surjit Stanton on 03-04-2024 MCH (RBC) [Entitic mass] MCH [Entitic mass] by Automated count 24.7-34.3 [place] MCHC Auto (RBC) [Mass/Vol]Or dered By: Surjit Stanton on 03-04-2024 MCHC (RBC) [Mass/Vol] MCHC [Mass/volume] by Automated count 32.0-35.0 [place] MCV Auto (RBC) [Entitic vol] Ordered By: Surjit Stanton on 03-04-2024 MCV (RBC) [Entitic vol] MCV [Entitic volume] by Automated count 80-100 [place] Microcytes LM Ql (Bld)Ordere d By: Surjit Stanton on 03-04-2024 Microcytes Ql (Bld) Microcytes [Presence ] in Blood by Light microscopy [place] Monocyte distribution width [Entitic volume] in Blood by AutomatedOrdered By: Surjit Stanton on 03-04-2024 Monocyte distribution width Auto (Bld) [Entitic vol] Monocyte distribution width [Entitic volume] in Blood by Automated 0.00-20.00 [place] Monocytes Auto (Bld) [#/Vol] Ordered By: Surjit Stanton on 03-04-2024 Monocytes (Bld) [#/Vol] Automated blood monocyte count 0.0-0.8 [place] Monocytes/100 WBC Auto (Bld) Ordered By: Surjit Stanton on 12-14-2024 Monocytes/100 WBC (Bld) Automated monocyte % . [place] Mucus [Presence] in Urine by AutomatedOrdered By: Surjit Stanton on 03-04-2024 Mucus Auto Ql (U) Mucus [Presence] in Urine by Automated Abnormal [place] Neutrophils Auto (Bld) [#/Vo l]Ordered By: Surjit Stanton on 03-04-2024 Neutrophils (Bld) [#/Vol] Neutrophils [#/volume] in Blood by Automated count 1.8-7.7 [place] Neutrophils/100 WBC Auto (Bl d)Ordered By: Surjit Stanton on 03-04-2024 Neutrophils/100 WBC (Bld) Automated neutrophil % . [place] Nitrite Test strip Ql (U)Ord ered By: Surjit Stanton on 03-04-2024 Nitrite Ql (U) Nitrite [Presence] i n Urine by Test strip Negative [place] No Panel InformationOrdered By: Surjit Stanton on 03-04-2024 Estimated GFR (CKD-EPI) > 60.0 mL/Min [facility] Creatinine Clearance (Chem 122.59 [place] Nucleated erythrocytes [Pres ence] in Blood by Automated countOrdered By: Surjit Stanton on 03-04-2024 Nucleated RBC Auto Ql (Bld) Nucleated erythrocytes [Presence] in Blood by Automated count 0-0.5 [place] Platelet adequacy [Presence] in Blood by Light microscopyOrdered By: Surjit Stanton on 03-04-2024 Platelets LM Ql (Bld) Platelet adequacy [Presence] in Blood by Light microscopy Normal [place] Platelet mean volume Auto (B ld) [Entitic vol]Ordered By: Surjit Stanton on 03-04-2024 Platelet mean volume (Bld) [Entitic vol] Platelet mean volume [Entitic volume] in Blood by Automated count High 6.3-10.7 [place] Platelet morphology finding [Identifier] in BloodOrdered By: Surjit Stanton on 03-04-2024 Platelet morphology finding Nom (Bld) Platelet morphology finding [Identifier] in Blood Normal [place] Platelets Auto (Bld) [#/Vol] Ordered By: Surjit Stanton on 03-04-2024 Platelets (Bld) [#/Vol] Platelets [#/volume] in Blood by Automated count 150-450 [place] Potassium [Moles/volume] in Serum or PlasmaOrdered By: Surjit Stanton on 03-04-2024 Potassium [Moles/Vol] Potassium [Moles/v olume] in Serum or Plasma Low 3.5-5.1 [place] Protein Test strip (U) [Mass /Vol]Ordered By: Surjit Stanton on 03-04-2024 Protein (U) [Mass/Vol] Protein [Mass/volume] in Urine by Test strip High Negative [place] Protein [Mass/volume] in Ser um or PlasmaOrdered By: Surjit Stanton on 03-04-2024 Protein [Mass/Vol] Protein [Mass/volume ] in Serum or Plasma 6.4-8.9 [place] RBC Auto (Bld) [#/Vol]Ordere d By: Surjit Stanton on 03-04-2024 RBC (Bld) [#/Vol] Erythrocytes [#/volu me] in Blood by Automated count 3.60-5.00 [place] Scan and CBCon 03-04-2024 Anisocytosis Ql (Bld) Slight Normal [facility] Comment on above: Performed By: #### A RAFAEL GORDON, CUU #### [facility] [address] [place] [address] [place] Basophils (Bld) [#/Vol] 0.0 10*3/uL Normal 0.0-0.2 [facility] Comment on above: Performed By: #### A RAFAEL GORDON, CUU #### [facility] [address] [place] [address] [place] Basophils/100 WBC (Bld) 0.6 % Normal . [facility] Comment on above: Performed By: #### A RAFAEL GORDON, CUU #### [facility] [address] [place] [address] [place] Eosinophils (Bld) [#/Vol] 0.0 10*3/uL Normal 0.0-0.45 [facility] Comment on above: Performed By: #### A CHETNAUAPLUS, URDS, CUU #### [address] Eosinophils/100 WBC (Bld) 0.2 % Normal . [facility] Comment on above: Performed By: #### A DDONUAPLUS, URDS, CUU #### [address] Erythrocyte distribution width (RBC) [Ratio] 14.6 % Normal 11.9-15.3 [facility] Comment on above: Performed By: #### A DDONUAPLUS, URDS, CUU #### [address] Hematocrit (Bld) [Volume fraction] 38.2 % Normal 34.0-46.4 [facility] Comment on above: Performed By: #### A DDONUAPLUS, URDS, CUU #### [address] Hemoglobin (Bld) [Mass/Vol] 12.9 g/dL Normal 11.8-15.4 [facility] Comment on above: Performed By: #### A DDONUAPLUS URDS, CUU #### [address] Lymphocytes (Bld) [#/Vol] 1.3 10*3/uL Normal 1.00-4.8 [facility] Comment on above: Performed By: #### A DDONUAPLUS, URDS, CUU #### [address] Lymphocytes/100 WBC (Bld) 17.1 % Normal . [facility] Comment on above: Performed By: #### A DDONUAPLUS, URDS, CUU #### [address] MCH (RBC) [Entitic mass] 29.4 pg Normal 24.7-34.3 [facility] Comment on above: Performed By: #### A DDONUAPLUS, URDS, CUU #### [address] MCV (RBC) [Entitic vol] 86.9 fL Normal 80-100 [facility] Comment on above: Performed By: #### A RAFAEL GORDON, CUU #### [address] Mean Corpuscular HGB Conc 33.8 g/dL Normal 32.0-35.0 [facility] Comment on above: Performed By: #### A RAFAEL GORDON, CUU #### [address] Microcytosis Slight Normal [facility] Comment on above: Performed By: #### A RAFAEL GORDON, CUU #### [address] Monocytes (Bld) [#/Vol] 0.3 10*3/uL Normal 0.0-0.8 [facility] Comment on above: Performed By: #### A RAFAEL GORDON, CUU #### [address] Monocytes/100 WBC (Bld) 15.87 % Normal 0.00-20.00 [facility] Comment on above: Performed By: #### A RAFAEL GORDON, CUU #### [address] Monocytes/100 WBC (Bld) 4.4 % Normal . [facility] Comment on above: Performed By: #### A RAFAEL GORDON, CUU #### [place] [address] [place] Neutrophils (Bld) [#/Vol] 6.0 10*3/uL Normal 1.8-7.7 [facility] Comment on above: Performed By: #### A RAFAEL GORDON, CUU #### [place] [address] [place] Neutrophils/100 WBC (Bld) 77.7 % Normal . [facility] Comment on above: Performed By: #### A DDONUAPLUS, URDS, CUU #### [address] NRBC% 0.0 /100{WBC} Normal 0-0.5 [facility] Comment on above: Performed By: #### A DDONUAPLUS, URDS, CUU #### [address] Platelet Estimate Normal Normal Normal [facility] Comment on above: Performed By: #### A DDONUAPLUS, URDS, CUU #### [address] Platelet mean volume (Bld) [Entitic vol] 11.5 fL High 6.3-10.[address] [facility] Comment on above: Performed By: #### A DDONUAPLUS, URDS, CUU #### [address] Platelet Morphology Normal Normal Normal [facility] Comment on above: Result Comment: PERF ORMED BY: [place] [address] PATHOLOGIST [employer] SARAH ANDREWS M.D. Performed By: #### A DDONUAPLUS, URDS, CUU #### [address] Platelets (Bld) [#/Vol] 182 10*3/uL Normal 150-450 [facility] Comment on above: Performed By: #### A DDONUAPLUS, URDS, CUU #### [address] RBC (Bld) [#/Vol] 4.40 10*6/uL Normal 3.60-5.00 [facility] Comment on above: Performed By: #### A DDONUAPLUS, URDS, CUU #### [address] RBC morphology finding Nom (Bld) Normal Normal Normal [facility] Comment on above: Performed By: #### A DDONUAPLUS, URDS, CUU #### [facility] [address] WBC (Bld) [#/Vol] 7.7 10*3/uL Normal 3.8-11.6 [facility] Comment on above: Performed By: #### A DDONUAPLUS, URDS, CUU #### [facility] [address] Serum or plasma albumin/glob ulin mass ratioOrdered By: Surjit Stanton on 03-04-2024 Albumin/Globulin [Mass ratio] Serum or plasma albumin/globulin mass ratio [place] Serum or plasma anion gap de terminationOrdered By: Surjit Stanton on 03-04-2024 Anion gap [Moles/Vol] Serum or plasma an ion gap determination 6.0-15.0 [place] Serum or plasma non-glucuron idated bilirubin measurement (mass/volume)Ordered By: Surjit Stanton on 03-04-2024 Bilirubin.indirect [Mass/Vol] Serum or plasma non-glucuronidated bilirubin measurement (mass/volume) [place] Sodium [Moles/volume] in Ser um or PlasmaOrdered By: Surjit Stanton on 03-04-2024 Sodium [Moles/Vol] Sodium [Moles/volume ] in Serum or Plasma 136-145 [place] Specific gravity Test strip (U) [Rel density]Ordered By: Surjit Stanton on 03-04-2024 Specific gravity (U) [Rel density] Specific gravity of Urine by Test strip 1.001-1.03 0 [place] Urea nitrogen [Mass/volume] in Serum or PlasmaOrdered By: Surjit Stanton on 03-04-2024 Urea nitrogen [Mass/Vol] Urea nitrogen [Mass/volume] in Serum or Plasma 7-25 [place] Urobilinogen Test strip (U) [Mass/Vol]Ordered By: Surjit Stanton on 03-04-2024 Urobilinogen (U) [Mass/Vol] Urobilinogen [Mass/volume] in Urine by Test strip Normal [place] WBC Auto (Bld) [#/Vol]Ordere d By: Surjit Romy on 03-04-2024 WBC (Bld) [#/Vol] Leukocytes [#/volume ] in Blood by Automated count 3.8-11.6 [place] pH Test strip (U)Ordered By: Surjitpreethi Stanton on 03-04-2024 pH (U) pH of Urine by Test strip 5.0-9.[address] [place] [address] cervical spine wo conon 0 11-25-2023 CT cervical spine wo con [facility] [address] [place] [address] CT Scan Report Signed Patient: Nicole Farris MR#: [id number] : 1995 Acct:[id number] Age/Sex: 28 / F ADM Date: 11/25/23 Loc: ER Room: Type: [facility] ER Attending Dr: Copies to: Vianney Genao APRN Ordering Provider: Vianney Genao APRN Date of Service: 11/25/23 CT/CT cervical spine wo con: increased pain ([id number]) CT/CT head/brain wo con: pain CLINICAL DATA: [...] Priscila Barbosa M.D.11/25/2023 7:01 PM Dictation Location: [place] [address] Transcribed By: [facility] 11/25/231900 Dictated By: Priscila Barbosa MD 11/25/231852 Signed By: 11/25/231900 Normal [facility] XR CERVICAL SPINE [...] [Catalytic activity/Vol] 47 U/L Normal 7-52 U/L [place] Albumin [Mass/volume] in Ser um or Plasma by Bromocresol green (BCG) dye binding methoOrdered By: Adin Gan on 06-04-2022 Albumin BCG dye [Mass/Vol] 4.9 g/dL 3.5-5.7 [place] Alkaline phosphatase [Enzyma tic activity/volume] in Serum or PlasmaOrdered By: Adin Gan on 06-04-2022 ALP [Catalytic activity/Vol] 104 U/L Normal 34-104 U/L [place] Aspartate aminotransferase [ Enzymatic activity/volume] in Serum or PlasmaOrdered By: Adin Gan on 06-04-2022 AST [Catalytic activity/Vol] 23 U/L Normal 13-39 U/L [place] Bilirubin.total [Mass/volume ] in Serum or PlasmaOrdered By: Adin Gan on 06-04-2022 Bilirubin [Mass/Vol] 0.5 mg/dL 0.3-1.0 [facility] Calcium [Mass/volume] in Ser um or PlasmaOrdered By: Adin Gan on 06-04-2022 Calcium [Mass/Vol] 9.7 mg/dL 8.6-10.3 [facility] Carbon dioxide, total [Moles /volume] in Serum or PlasmaOrdered By: Adin Gan on 06-04-2022 CO2 [Moles/Vol] 27.2 mmol/L 21.0-31.0 [facility] Chloride [Moles/volume] in S mayte or PlasmaOrdered By: Adin Gan on 06-04-2022 Chloride [Moles/Vol] 104 mmol/L Normal 98-107 mmol/L [place] Comprehensive Metabolic Pane blanquita 06-04-2022 Albumin [Mass/Vol] 4.641730 g/dL Normal 3.5-5.7 g/dL [facility] Other Bilirubin [Mass/Vol] 0.1211213 mg/dL Normal 0.3- 1.0 mg/dL [facility] Other Calcium [Mass/Vol] 9.3253588 mg/dL Normal 8.6-10 .3 mg/dL [facility] Other CO2 [Moles/Vol] 27.14775492 mmol/L Normal 21.0-3 1.0 mmol/L [facility] Other Creatinine [Mass/Vol] 0.88235538 mg/dL Normal 0. 60-1.20 mg/dL [facility] Other Potassium [Moles/Vol] 4.06947242 mmol/L Normal 3 .5-5.1 mmol/L [facility] Other Protein [Mass/Vol] 7.969940 g/dL Normal 6.4-8.9 g/dL [facility] Other Comprehensive Metabolic Panel 3.0 g/dL [facility] Other Creatinine [Mass/volume] in Serum or PlasmaOrdered By: Adin Gan on 06-04-2022 Creatinine [Mass/Vol] 0.71 mg/dL 0.60-1.20 [facility] Erythrocyte distribution wid th Auto (RBC) [Ratio]Ordered By: Adin Gan on 06-04-2022 Erythrocyte distribution width (RBC) [Ratio] 13.5 % 11.9-15.3 [place] Erythrocytes [#/volume] in B lood by Automated countOrdered By: Adin Gan on 06-04-2022 RBC (Bld) [#/Vol] 4.44 10*6/uL Normal 3.60-5.00 [facility] Globulin Calc (S) [Mass/Vol] Ordered By: Adin Gan on 06-04-2022 Globulin (S) [Mass/Vol] 3.0 g/dL [place] Glucose [Mass/volume] in Ser um or PlasmaOrdered By: Adin Gan on 06-04-2022 Glucose [Mass/Vol] 89 mg/dL Normal 74-109 mg/dL [place] Comment on above: ADA recommended refe rence rangeRandom Glucose Reference Range is dependent on time and content of last meal. Glucose of more than 200 mg/dL in a nonstressed, ambulatory subject supports the diagnosis of Diabetes Mellitus. Hematocrit Auto (Bld) [Volum e fraction]Ordered By: Adin Gan on 06-04-2022 Hematocrit (Bld) [Volume fraction] 38.5 % 34.0-46.4 [place] Hemoglobin [Mass/volume] in BloodOrdered By: Adin Gan on 06-04-2022 Hemoglobin (Bld) [Mass/Vol] 12.8 g/dL 11.8-15.4 [place] Hemogram CBC Without Diffon 06-04-2022 Erythrocyte distribution width (RBC) [Ratio] 13.500 % Normal 11.9-15.3 % [facility] Other Hematocrit (Bld) [Volume fraction] 38.500 % Normal 34.0-46.4 % [facility] Other Hemoglobin (Bld) [Mass/Vol] 12.031859 g/dL Normal 11.8-15.4 g/dL [facility] Other MCH (RBC) [Entitic mass] 28.7000 pg Normal 24.7-34.3 pg [employer] Other MCV (RBC) [Entitic vol] 86.7000 fL Normal 80-100 fL [facility] Other Platelet mean volume (Bld) [Entitic vol] 11.1000 fL High 6.3-10.7 fL [facility] Other WBC (Bld) [#/Vol] 6.067177463 10*3/uL Normal 3.8 -11.6 10*3/uL [facility] Other Hemogram CBC Without Diff 33.1 g/dL Normal 32.0-35.0 g/dL [facility] Other Laboratory - Chemistry and C hemistry - challengeOrdered By: Adin Gan on 06-04-2022 GFR/1.73 sq M.predicted MDRD (S/P/Bld) [Vol rate/Area] mL/min/{1.73_m2} [place] Leukocytes [#/volume] correc rossy for nucleated erythrocytes in Blood by Automated counOrdered By: Adin Gan on 06-04-2022 WBC corrected for nucl RBC Auto (Bld) [#/Vol] 6.6 10*3/uL 3.8-11.6 [place] MCH Auto (RBC) [Entitic mass ]Ordered By: Adin Gan on 06-04-2022 MCH (RBC) [Entitic mass] 28.7 pg 24.7-34.3 [place] MCHC Auto (RBC) [Mass/Vol]Or dered By: Adin Gan on 06-04-2022 MCHC (RBC) [Mass/Vol] 33.1 g/dL 32.0-35.[address] [facility] MCV Auto (RBC) [Entitic vol] Ordered By: Adin Gan on 06-04-2022 MCV (RBC) [Entitic vol] 86.7 fL 80-100 [place] No Panel InformationOrdered By: Adin Gan on 06-04-2022 Pharmacy Creatinine Clearance (Chem N/A [place] Platelet mean volume Auto (B ld) [Entitic vol]Ordered By: Adin Gan on 06-04-2022 Platelet mean volume (Bld) [Entitic vol] 11.1 fL 6.3-10.7 [place] Platelets [#/volume] in Bloo d by Automated countOrdered By: Adin Gan on 06-04-2022 Platelets (Bld) [#/Vol] 196 10*3/uL Normal 150-450 10*3/uL [place] Potassium [Moles/volume] in Serum or PlasmaOrdered By: Adin Gan on 06-04-2022 Potassium [Moles/Vol] 4.1 mmol/L 3.5-5.1 [facility] Protein [Mass/volume] in Ser um or PlasmaOrdered By: Adin Gan on 06-04-2022 Protein [Mass/Vol] 7.9 g/dL 6.4-8.9 [facility] Serum or plasma albumin/glob ulin mass ratioOrdered By: Adin Gan on 06-04-2022 Albumin/Globulin [Mass ratio] 1.6 {ratio} [place] Serum or plasma anion gap de terminationOrdered By: Adin Gan on 06-04-2022 Anion gap [Moles/Vol] 12.9 mmol/L 6.0-15.0 [facility] Sodium [Moles/volume] in Ser um or PlasmaOrdered By: Adin Gan on 06-04-2022 Sodium [Moles/Vol] 140 mmol/L Normal 136-145 mmol/L [place] Thyroid Stim Hormone w/Rflxo n 06-04-2022 Thyroid Stim Hormone w/Rflx 0.93 u[iU]/mL Normal 0.45-5.33 u[iU]/mL [facility] Other Thyrotropin [Units/volume] i n Serum or PlasmaOrdered By: Adin Gan on 06-04-2022 TSH Qn 0.93 m[IU]/L 0.45-5.33 [place] Urea nitrogen [Mass/volume] in Serum or PlasmaOrdered By: Adin Gan on 06-04-2022 Urea nitrogen [Mass/Vol] 15 mg/dL Normal 7-25 mg/dL [place] PAP ACOG PANEL 2: 21 to 29on 02-24-2022 . . Normal [facility] Comment on above: Performed By: #### [id number] #### [facility] [address] [place] [address] [address] Lilia Calvillo Age Gdln ACOG Testing - [facility] Comment on above: Performed By: #### [id number] #### [facility] [address] [place] [address] [address] Lilia Calvillo DIAGNOSIS: Comment [facility] Comment on above: Result Comment: NEGA TIVE FOR INTRAEPITHELIAL LESION OR MALIGNANCY. Performed By: #### [id number] #### [facility] [address] [place] [address] Dr. Lilia Calvillo Methodology: Comment [facility] Comment on above: Result Comment: This liquid based ThinPrep(R) pap test was screened with the use of an image guided system. Performed By: #### [id number] #### [facility] [address] [place] [address] Dr. Lilia Calvillo Note: Comment [facility] Comment on above: Result Comment: The Pap smear is a screening test designed to aid in the detection of premalignant and malignant conditions of the uterine cervix. It is not a diagnostic procedure and should not be used as the sole means of detecting cervical cancer. Both false-positive and false-negative reports do occur. . Performed By: #### [id number] #### [facility] [address] [place] [address] [address] Lilia Calvillo Performed by: Comment [facility] Comment on above: Result Comment: Philippe Garcia Audit Officer (ASCP) Performed By: #### [id number] #### [facility] [address] [place] [address] Dr. Lilia Calvillo Reflex Criteria: Comment [facility] Comment on above: Result Comment: The HPV DNA reflex criteria were not met with this specimen result therefore, no HPV testing was performed. . Performed By: #### [id number] #### [facility] [address] [place] [address] Dr. Lilia Calvillo Specimen adequacy: Comment Normal [facility] Comment on above: Result Comment: Sati sfactory for evaluation. No endocervical component is identified. Performed By: #### [id number] #### [facility] [address] [place] [address] Dr. Lilia Calvillo CBC AUTO DIFFon 10-17-2021 BASO # 0.0 103/ul Normal 0.0-0.1 [facility] Comment on above: Performed By: #### C BC #### [facility] [address] [place] [address] Dr. Lilia Calvillo Basophils/100 WBC (Bld) 0.4 % Normal 0.2-2.0 [facility] Comment on above: Performed By: #### C BC #### [facility] [address] [place] [address] Dr. Lilia Calvillo EO # 0.2 103/ul Normal 0.0-0.7 [facility] Comment on above: Performed By: #### C BC #### [facility] [address] [place] [address] Dr. Lilia Calvillo Eosinophils/100 WBC (Bld) 2.1 % Normal 0.9-7.0 [facility] Comment on above: Performed By: #### C BC #### [facility] [address] [place] [address] Dr. Lilia Calvillo Erythrocyte distribution width (RBC) [Ratio] 14.4 % Normal 11.0-15.0 [facility] Comment on above: Performed By: #### C BC #### [facility] [address] [place] [address] Dr. Lilia Calvillo Hematocrit (Bld) [Volume fraction] 27.2 % Critically low 36.0-48.0 [facility] Comment on above: Performed By: #### C BC #### [facility] [address] [place] [address] Dr. Lilia Calvillo Hemoglobin (Bld) [Mass/Vol] 9.0 g/dL Critically low 12.0-16.0 [facility] Comment on above: Performed By: #### C BC #### [facility] [address] [place] [address] Dr. Lilia Calvillo IG # 0.03 10e3/ul Normal 0.00-0.03 [facility] Comment on above: Performed By: #### C BC #### [facility] [address] [place] [address] Dr. Lilia Calvillo IG % 0.4 % Normal 0.0-0.5 [facility] Comment on above: Performed By: #### C BC #### [facility] [address] [place] [address] Dr. Lilia Calvillo LYMPH # 1.6 103/ul Normal 1.2-3.8 [facility] Comment on above: Performed By: #### C BC #### [facility] [address] [place] [address] Dr. Lilia Calvillo Lymphocytes/100 WBC (Bld) 20.2 % Critically low 20.5-60.0 [facility] Comment on above: Performed By: #### C BC #### [facility] [address] [place] [address] Dr. Lilia Calvillo MANUAL DIFF REQ NO Normal [facility] Comment on above: Performed By: #### C BC #### [facility] [address] [place] [address] Dr. Lilia Calvillo MCH (RBC) [Entitic mass] 29.3 pg Normal 26.7-34.0 [facility] Comment on above: Performed By: #### C BC #### [facility] [address] [place] [address] Dr. Lilia Calvillo MCHC (RBC) [Mass/Vol] 33.1 g/dL Normal 29.9-35.2 [facility] Comment on above: Performed By: #### C BC #### [facility] [address] [place] [address] Dr. Lilia Calvillo MCV (RBC) [Entitic vol] 88.6 fL Normal 81.0-99.0 [facility] Comment on above: Performed By: #### C BC #### [facility] [address] [place] [address] Dr. Lilia Calvillo MONO # 0.5 103/ul Normal 0.3-0.8 [facility] Comment on above: Performed By: #### C BC #### [facility] [address] [place] [address] Dr. Lilia Calvillo Monocytes/100 WBC (Bld) 5.7 % Normal 1.7-12.0 [facility] Comment on above: Performed By: #### C BC #### [facility] [address] [place] [address] Dr. Lilia Calvillo NEUT # 5.8 103/ul Normal 1.4-6.5 [facility] Comment on above: Performed By: #### C BC #### [facility] [address] [place] [address] Dr. Lilia Calvillo Neutrophils/100 WBC (Bld) 71.2 % Normal 43.0-75.0 [facility] Comment on above: Performed By: #### C BC #### [facility] [address] [place] [address] Dr. Lilia Calvillo Platelet mean volume (Bld) [Entitic vol] 13.1 fL Normal 9.5-13.5 [facility] Comment on above: Performed By: #### C BC #### [facility] [address] [place] [address] Dr. Lilia Calvillo PLT 109 103/ul Critically low 150-450 [facility] Comment on above: Performed By: #### C BC #### [facility] [address] [place] [address] Dr. Lilia Calvillo RBC 3.07 106/ul Critically low 4.20-5.[address] [facility] Comment on above: Performed By: #### C BC #### [facility] [address] [place] [address] Dr. Lilia Calvillo WBC 8.1 103/ul Normal 4.0-11.0 [facility] Comment on above: Performed By: #### C BC #### [facility] [address] [place] [address] Dr. Lilia Calvillo CBC AUTO DIFFon 10-16-2021 BASO # 0.0 103/ul Normal 0.0-0.1 [facility] Comment on above: Performed By: #### G TT3P #### [facility] [address] [place] [address] Dr. Lilia Calvillo Basophils/100 WBC (Bld) 0.2 % Normal 0.2-2.0 [facility] Comment on above: Performed By: #### G TT3P #### [facility] [address] [place] [address] Dr. Lilia Calvillo EO # 0.1 103/ul Normal 0.0-0.7 [facility] Comment on above: Performed By: #### G TT3P #### [facility] [address] [place] [address] Dr. Lilia Calvillo Eosinophils/100 WBC (Bld) 0.6 % Critically low 0.9-7.0 [facility] Comment on above: Performed By: #### G TT3P #### [facility] [facility] [address] [place] [address] Dr. Lilia Calvillo Erythrocyte distribution width (RBC) [Ratio] 14.5 % Normal 11.0-15.0 [facility] Comment on above: Performed By: #### G TT3P #### [facility] [address] [place] [address] Dr. Lilia Calvillo Hematocrit (Bld) [Volume fraction] 36.2 % Normal 36.0-48.0 [facility] Comment on above: Performed By: #### G TT3P #### [facility] [address] [place] [address] Dr. Lilia Calvillo Hemoglobin (Bld) [Mass/Vol] 11.8 g/dL Critically low 12.0-16.0 [facility] Comment on above: Performed By: #### G TT3P #### [facility] [address] [place] [address] Dr. Lilia Calvillo IG # 0.05 10e3/ul Critically high 0.00-0.03 [facility] Comment on above: Performed By: #### G TT3P #### [facility] [address] [place] [address] Dr. Lilia Calvillo IG % 0.5 % Normal 0.0-0.5 [facility] Comment on above: Performed By: #### G TT3P #### [facility] [address] [place] [address] Dr. Lilia Calvillo LYMPH # 2.0 103/ul Normal 1.2-3.8 [facility] Comment on above: Performed By: #### G TT3P #### [facility] [address] [place] [address] Dr. Lilia Calvillo Lymphocytes/100 WBC (Bld) 20.7 % Normal 20.5-60.0 [facility] Comment on above: Performed By: #### G TT3P #### [facility] [address] [place] [address] Dr. Lilia Calvillo MANUAL DIFF REQ NO Normal [facility] Comment on above: Performed By: #### G TT3P #### [facility] [address] [place] [address] Dr. Lilia Calvillo MCH (RBC) [Entitic mass] 28.7 pg Normal 26.7-34.0 [facility] Comment on above: Performed By: #### G TT3P #### [facility] [address] [place] [address] Dr. Lilia Calvillo MCHC (RBC) [Mass/Vol] 32.6 g/dL Normal 29.9-35.2 [facility] Comment on above: Performed By: #### G TT3P #### [facility] [address] [place] [address] Dr. Lilia Calvillo MCV (RBC) [Entitic vol] 88.1 fL Normal 81.0-99.0 [facility] Comment on above: Performed By: #### G TT3P #### [facility] [address] [place] [address] Dr. Lilia Calvillo MONO # 0.5 103/ul Normal 0.3-0.8 [facility] Comment on above: Performed By: #### G TT3P #### [facility] [address] [place] [address] Dr. Lilia Calvillo Monocytes/100 WBC (Bld) 5.7 % Normal 1.7-12.0 [facility] Comment on above: Performed By: #### G TT3P #### [facility] [address] [place] [address] Dr. Lilia Calvillo NEUT # 6.8 103/ul Critically high 1.4-6.5 [facility] Comment on above: Performed By: #### G TT3P #### [facility] [address] [place] [address] Dr. Lilia Calvillo Neutrophils/100 WBC (Bld) 72.3 % Normal 43.0-75.0 [facility] Comment on above: Performed By: #### G TT3P #### [facility] [address] [place] [address] Dr. Lilia Calvillo Platelet mean volume (Bld) [Entitic vol] 13.2 fL Normal 9.5-13.5 [facility] Comment on above: Performed By: #### G TT3P #### [facility] [address] [place] [address] Dr. Lilia Calvillo PLT 130 103/ul Critically low 150-450 [facility] Comment on above: Performed By: #### G TT3P #### [facility] [address] [place] [address] Dr. Lilia Calvillo RBC 4.11 106/ul Critically low 4.20-5.[address] [facility] Comment on above: Performed By: #### G TT3P #### [facility] [address] [place] [address] Dr. Lilia Calvillo WBC 9.5 103/ul Normal 4.0-11.0 [facility] Comment on above: Performed By: #### G TT3P #### [facility] [address] [place] [address] Dr. Lilia Calvillo DRUG SCREEN RAPID (URINE)on 10-16-2021 AMP Negative Normal NEGATIVE [facility] Comment on above: Performed By: #### G TT3P #### [facility] [address] [place] [address] Dr. Lilia Calvillo BAR Negative Normal NEGATIVE [facility] Comment on above: Performed By: #### G TT3P #### [facility] [address] [place] [address] Dr. Lilia Calvillo BUP Negative Normal NEGATIVE [facility] Comment on above: Performed By: #### G TT3P #### [facility] [address] [place] [address] Dr. Lilia Calvillo BZO Negative Normal NEGATIVE [facility] Comment on above: Performed By: #### G TT3P #### [facility] [address] [place] [address] Dr. Lilia Calvillo LAWANDA Negative Normal NEGATIVE [facility] Comment on above: Performed By: #### G TT3P #### [facility] [address] [place] [address] Dr. Lilia Calvillo CUT-OFFS SEE BELOW Normal [facility] Comment on above: Result Comment: AMP [...] ng/mL Performed By: #### G TT3P #### [facility] [address] [place] [address] Dr. Lilia Calvillo DRUG CUT HEADER DRUG CLASS TEST SYST EM CUT-OFF CONCENTRATIONS ARE FOLLOWS: Normal [facility] Comment on above: Performed By: #### G TT3P #### [facility] [address] [place] [address] Dr. Lilia Calvillo mAMP Negative Normal NEGATIVE [facility] Comment on above: Performed By: #### G TT3P #### [facility] [address] [place] [address] Dr. Lilia Calvillo MTD Negative Normal NEGATIVE [facility] Comment on above: Performed By: #### G TT3P #### [facility] [address] [place] [address] Dr. Lilia Calvillo OPI Negative Normal NEGATIVE [facility] Comment on above: Performed By: #### G TT3P #### [facility] [address] [place] [address] Dr. Lilia Calvillo OXY Negative Normal NEGATIVE [facility] Comment on above: Performed By: #### G TT3P #### [facility] [address] [place] [address] Dr. Lilia Calvillo PCP Negative Normal NEGATIVE [facility] Comment on above: Performed By: #### G TT3P #### [facility] [address] [place] [address] Dr. Lilia Calvillo PPX Negative Normal NEGATIVE [facility] Comment on above: Performed By: #### G TT3P #### [facility] [address] [place] [address] Dr. Lilia Calvillo TCA Negative Normal NEGATIVE [facility] Comment on above: Performed By: #### G TT3P #### [facility] [address] [place] [address] Dr. Lilia Calvillo THC Negative Normal NEGATIVE [facility] Comment on above: Performed By: #### G TT3P #### [facility] [address] [place] [address] Dr. Lilia Calvillo TYPE AND SCREENon 10-16-2021 TYPE AND SCREEN Negative Normal [facility] Comment on above: Performed By: #### G TT3P #### [facility] [address] [place] [address] Dr. Lilia Calvillo UA (CLEAN/CATCH) [employer]PER[employer]OR/MICRO I F IND.on 10-16-2021 Bilirubin Ql (U) Negative Normal NEGATIVE [facility] Comment on above: Performed By: #### U ACSIND #### [facility] [address] [address] [address] Lilia Calvillo Clarity (U) CLEAR Normal CLEAR [facility] Comment on above: Performed By: #### U ACSIND #### [facility] [address] [address] [address] Lilia Calvillo Color (U) LT. YELLOW Normal YELLOW [facility] Comment on above: Performed By: #### U ACSIND #### [facility] [address] [address] [address] Lilia Calvillo Glucose Ql (U) Negative Normal NEGATIVE [facility] Comment on above: Performed By: #### U ACSIND #### [facility] [address] [place] [address] Dr. Lilia Calvillo Hemoglobin Ql (U) Negative Normal NEGATIVE [facility] Comment on above: Performed By: #### U ACSIND #### [facility] [address] [place] [address] Dr. Lilia Calvillo Ketones Ql (U) Negative Normal NEGATIVE [facility] Comment on above: Performed By: #### U ACSIND #### [facility] [address] [address] [address] Lilia Calvillo LEUKOCYTES Negative Normal NEGATIVE [facility] Comment on above: Performed By: #### U ACSIND #### [facility] [address] [place] [address] Dr. Lilia Calvillo Nitrite Ql (U) Negative Normal NEGATIVE [facility] Comment on above: Performed By: #### U ACSIND #### [facility] [address] [place] [address] Dr. Lilia Calvillo pH (U) 6.5 [pH] Normal 5-9 [facility] Comment on above: Performed By: #### U ACSIND #### [facility] [address] [place] [address] Dr. Lilia Calvillo SPEC GRAVITY 1.020 Normal 1.005-<=1. 025 [facility] Comment on above: Performed By: #### U ACSIND #### [facility] [address] [place] [address] Dr. Lilia Calvillo UA PROTEIN Negative Normal NEGATIVE/ TRACE [facility] Comment on above: Performed By: #### U ACSIND #### [facility] [address] [place] [address] Dr. Lilia Calvillo UR MICRO IND NOT INDICATED Normal [facility] Comment on above: Performed By: #### U ACSIND #### [facility] [address] [place] [address] Dr. Lilia Calvillo Urobilinogen Qn (U) 0.2 {Ann'U}/dL Normal 0.2 - 1. 0 [facility] Comment on above: Performed By: #### U ACSIND #### [facility] [address] [place] [address] Dr. Lilia Calvillo Covid-19 PCR ([facility])on 09-20 SARS-CoV-2 (COVID-19) RNA TORRES+probe Ql (Unsp spec) Not detected Normal NOT DETECTED [facility] Comment on above: Result Comment: This test is not yet approved or cleared by the [place] FDA. When there are no FDA-approved or cleared tests available, and other criteria are met, FDA can make tests available under an emergency access mechanism called an Emergency Use Authorization (EUA). The EUA for this test is supported by the Loading And Unloading Supervisor of Health and Human Service's (HHS's) declaration [...] SARS-CoV-2. Performed By: #### G TT3P #### [facility] [address] [place] [address] Dr. Lilia Calvillo CHLAMYDIA/GONOCOCCUS TORRES (SW AB/URINE/PAPon 09-27-2021 Chlamydia trachomatis, TORRES Negative Normal Negative [facility] Comment on above: Performed By: #### C T/NGNA #### [facility] [address] [address] [address] Lilia Calvillo Neisseria gonorrhoeae, TORRES Negative Normal Negative [facility] Comment on above: Performed By: #### C T/NGNA #### [facility] [address] [place] [address] Dr. Lilia Calvillo GROUP B STREP CULTUREon 07-0 S. agalactiae Ag Ql (Unsp spec) Culture Observations: NEGATIVE FOR GROUP B STREPTOCOCCUS. Normal [facility] Comment on above: Performed By: #### G TT3P #### [facility] [address] [place] [address] Dr. Lilia Calvillo GTT 3 HR PREGon 07-21-2021 Glucose [Mass/Vol] 92 mg/dL Normal 74-106 [facility] Comment on above: Performed By: #### G TT3P #### [facility] [address] [place] [address] Dr. Lilia Calvillo Glucose [Mass/Vol] 193 mg/dL Normal [facility] Comment on above: Performed By: #### G TT3P #### [facility] [address] [place] [address] Dr. Lilia Calvillo Glucose [Mass/Vol] 146 mg/dL Normal [facility] Comment on above: Performed By: #### G TT3P #### [facility] [address] [address] [address] Lilia Calvillo Glucose [Mass/Vol] 123 mg/dL Normal [facility] Comment on above: Performed By: #### G TT3P #### [facility] [address] [place] [address] Dr. Lilia Calvillo GLUCOSE - 1HRon 07-09-2021 Glucose [Mass/Vol] 167 mg/dL Critically high 74-106 [facility] Comment on above: Performed By: #### G LU1HR #### [facility] [address] [place] [address] Dr. Lilia Calvillo HEMOGRAM AND PLATELon 04-20- 2022 Hematocrit (Bld) [Volume fraction] 33.9 % Critically low 36.0-48.0 [facility] Comment on above: Performed By: #### H H #### [facility] [address] [place] [address] Dr. Lilia Calvillo Hemoglobin (Bld) [Mass/Vol] 10.9 g/dL Critically low 12.0-16.0 [facility] Comment on above: Performed By: #### H H #### [facility] [address] [place] [address] Dr. Lilia Calvillo MCH (RBC) [Entitic mass] 29.9 pg Normal 26.7-34.0 [facility] Comment on above: Performed By: #### H H #### [facility] [address] [place] [address] Dr. Lilia Calvillo MCHC (RBC) [Mass/Vol] 32.2 g/dL Normal 29.9-35.2 [facility] Comment on above: Performed By: #### H H #### [facility] [address] [place] [address] Dr. Lilia Calvillo MCV (RBC) [Entitic vol] 93.1 fL Normal 81.0-99.0 [facility] Comment on above: Performed By: #### H H #### [facility] [address] [place] [address] Dr. Lilia Calvillo PLT 153 103/ul Normal 150-450 [facility] Comment on above: Performed By: #### H H #### [facility] [address] [place] [address] Dr. Lilia Calvillo RBC 3.64 106/ul Critically low 4.20-5.[address] [facility] Comment on above: Performed By: #### H H #### [facility] [address] [place] [address] Dr. Lilia Calvillo WBC 8.4 103/ul Normal 4.0-11.0 [facility] Comment on above: Performed By: #### H H #### [facility] [address] [place] [address] Dr. Lilia Calvillo US PREG ANATOMY SINGLEon [...] by ultrasound, 40% by expected EDC; FL/AC: 0.555672 FL/BPD: 0.611984 HC/AC: 1.622530 GESTATIONAL AGE: Age by EDC: 20 weeks 0 days ALINA by EDC: 10/23/2021 Age by current US: 19 weeks 4 days ALINA by current US: 10/26/2021 IMPRESSION: Normal anatomy scan *Reference: [facility] Practice Guideline for the performance of Obstetric Ultrasound Examinations, December 20, 2006. Electronically authenticated by: DESTINY BAILEY Date: 2021-06-05 16:17 Normal [facility] AFP MATERNAL FOR SPINA BIFID Aon 05-30-2021 AFP MoM 1.33 Normal [facility] Comment on above: Performed By: #### A FPMAT #### [facility] [address] [address] [address] Lilia Calvillo AFP Value 63.0 ng/mL Normal [facility] Comment on above: Performed By: #### A FPMAT #### [facility] [address] [address] [address] Lilia Calvillo AFP, Serum for Spina Bifida Report Normal [facility] Comment on above: Performed By: #### A FPMAT #### [facility] [address] [address] [address] Lilia Calvillo Comment Comment Normal [facility] Comment on above: Result Comment: Hamlet Sinclair, Ph.D., [facility] Director . References: Available Upon Request. . Multiples Of Median Cutoffs For AFP Elevations Sandoval 2.5 Black 2.8 IDD 2.0 Twins 4.5 Abbreviation Definitions IDD - Insulin Dep Diabetes OSBR - Open Spina Bifida Risk . For further inquiries contact Done In :[employer] at [phone]. Performed By: #### A FPMAT #### [facility] [address] [address] [address] Lilia Calvillo Gest Age Collection Date 18.9 weeks Normal [facility] Comment on above: Performed By: #### A FPMAT #### [facility] [address] [address] [address] Lilia Calvillo Gestat, Age Based on Ultrasound Normal [facility] Comment on above: Result Comment: 18.9 on 05/28/2021 Recalculations are not recommended when gestational dating by LMP and ultrasound are within 10 days. Performed By: #### A FPMAT #### [facility] [address] [place] [address] Dr. Lilia Calvillo Insulin Dep Diabetes No Normal [facility] Comment on above: Performed By: #### A FPMAT #### [facility] [address] [place] [address] Dr. Lilia Calvillo Interpretation Comment Normal [facility] Comment on above: Result Comment: Inte rpretation: [...] Customer Services to discuss available options. The [employer] recommends amniocentesis be offered to women age 35 and older. Performed By: #### A FPMAT #### [facility] [address] [place] [address] Dr. Lilia Calvillo [age] Normal [facility] Comment on above: Performed By: #### A FPMAT #### [facility] [address] [place], [place] [id number] Dr. Lilia Calvillo Multiple Gestation No Normal [facility] Comment on above: Performed By: #### A FPMAT #### [facility] [address] [place] [address] Dr. Lilia Calvillo OSBR Risk 1 [place] [address] [facility] Comment on above: Performed By: #### A FPMAT #### [facility] [address] [place] [address] Dr. Lilia Calvillo PDF . [facility] Comment on above: Result Comment: This test was developed and its performance characteristics determined by [employer]. It has not been cleared or approved by the Food and Drug Administration. Performed By: #### A FPMAT #### [facility] [address] [place] [address] Dr. Lilia Calvillo Race [facility] Comment on above: Performed By: #### A FPMAT #### [facility] [address] [place] [address] Dr. Lilia Calvillo Test Results: Negative [facility] Comment on above: Performed By: #### A FPMAT #### [facility] [address] [place] [address] Dr. Lilia Calvillo Q - CULTURE,URINE,ROUTINEon 05-21-2021 CULTURE, URINE, ROUTINE SEE NOTE Normal [facility] [employer] Comment on above: Order Comment: [facility] performed at: [facility] [employer] [facility], [address] [place] [address], [address] [place] [address], [place], [address], Curing Supervisor: Wilber Wilson MD [facility] Collection Date/Time: [id number] [facility] Results Received Date/Time: [facility] Reported Date/Time: Result Comment: CULT URE, URINE, ROUTINE Micro Number: [id number] Test Status: Final Specimen Source: Urine Specimen Quality: Adequate Result: Mixed genital yair isolated. These superficial bacteria are not indicative of a urinary tract infection. No further organism identification is warranted on this specimen. If clinically indicated, recollect clean-catch, mid-stream urine and transfer immediately to Urine Culture Transport Tube. Performed By: #### 3 020X, 6304R, %SBCULI #### [facility] [address] [place] [address] Q - UR CULT [id number] 2021 REFLEXIVE URINE CULTURE SEE NOTE Normal [facility] [employer] Comment on above: Order Comment: [facility] performed at: [facility], [address] [place] [address], [address] [place] [address], [phone], Curing Supervisor: Wilber Wilson MD [facility] Collection Date/Time: [facility] Results Received Date/Time: [facility] Reported Date/Time: Result Comment: CULT URE INDICATED - RESULTS TO FOLLOW Performed By: #### 3 020X, 6304R, %SBCULI #### [facility] [address] [place] [address] Q - URINALYSIS,COMPLETE,WITH REFLEX TO CULTUREon 05-21-2021 Appearance (U) TURBID Abnormal CLEAR [facility] [employer] Comment on above: Order Comment: [facility] performed at: [facility], [facility], [address] [place] [address], [phone], Curing Supervisor: Wilber Wilson MD [facility] Date/Time: [facility] Results Received Date/Time: [facility] Reported Date/Time: Performed By: #### 3 020X, 6304R, %SBCULI #### [facility] [address] [place] [address] BACTERIA MODERATE Abnormal NONE SEEN [facility] [employer] Comment on above: Order Comment: [facility] performed at: [facility], [address], [address] [place] [address], [address] [place] [address], Curing Supervisor: Wilber Wilson MD [facility] Date/Time: [facility] Results Received Date/Time: [facility] Reported Date/Time: Performed By: #### 3 020X, 6304R, %SBCULI #### [facility] [address] [place] [address] Bilirubin Ql (U) Negative Normal NEGATIVE [facility] Comment on above: Order Comment: [facility] performed at: [employer] [employer] [facility], [address] [place] [address], [address] [place] [address], Curing Supervisor: Wilber Wilson MD [facility] Date/Time: [facility] Results Received Date/Time: [facility] Reported Date/Time: Performed By: #### 3 020X, 6304R, %SBCULI #### [facility] Laboratory Default [address] [place] [address] Color (U) YELLOW Normal YELLOW [facility] Electrical Solderer Comment on above: Order Comment: [facility] Testing performed at: [employer], [address] , [address] [place] [address], [address] [place] [address], Curing Supervisor: Wilber Wilson MD [facility] Collection Date/Time: [facility] Results Received Date/Time: [facility] Reported Date/Time: Performed By: #### 3 020X, 6304R, %SBCULI #### [facility] Default [address] [place] [address] Glucose Ql (U) Negative Normal NEGATIVE [facility] [employer] Comment on above: Order Comment: [facility] Testing performed at: [employer], [facility], [address], [address] [place] [address], [address] [place] [address], Curing Supervisor: Wilber Wilson MD [facility] Collection Date/Time: [facility] Results Received Date/Time: [facility] Reported Date/Time: Performed By: #### 3 020X, 6304R, %SBCULI #### [facility] Default [address] [place] [address] HYALINE CAST NONE SEEN Normal NONE SEEN [facility] Electrical Solderer Comment on above: Order Comment: [facility] performed at: [employer], [facility], [address] , [address] [place] [address], [address] [place] [address], Curing Supervisor: Wilber Wilson MD [facility] Collection Date/Time: [facility] Results Received Date/Time: [facility] Reported Date/Time: Performed By: #### 3 020X, 6304R, %SBCULI #### [facility] Default [address] [place] [address] Ketones Ql (U) TRACE Abnormal NEGATIVE [facility] [employer] Comment on above: Order Comment: [facility] performed at: [employer], [facility], [address] , [address] [place] [address], [address] [place] [address], Curing Supervisor: Wilber Wilson MD [facility] Collection Date/Time: [facility] Results Received Date/Time: [facility] Reported Date/Time: Performed By: #### 3 020X, 6304R, %SBCULI #### [facility] Default [address] [place] [address] Leukocyte esterase Test strip Ql (U) 2+ Abnormal NEGATIVE [facility] Specialist Comment on above: Order Comment: [facility] performed at: [employer], [facility], [address] , [address] [place] [address], [address] [place] [address], Curing Supervisor: Wilber Wilson MD [facility] Collection Date/Time: [facility] Results Received Date/Time: [facility] Reported Date/Time: Performed By: #### 3 020X, 6304R, %SBCULI #### [facility] Default [address] [place] [address] Nitrite Ql (U) Negative Normal NEGATIVE [facility] Electrical [employer] Comment on above: Order Comment: [facility] performed at: [employer], [facility], [address] [facility], [address] [place] [address], [address] [place] [address], Curing Supervisor: Wilber Wilson MD [facility] Collection Date/Time: [facility] Results Received Date/Time: [facility] Reported Date/Time: Performed By: #### 3 020X, 6304R, %SBCULI #### [facility] Default [address] [place] [address] OCCULT BLOOD Negative Normal NEGATIVE [facility] Electrical [employer] Comment on above: Order Comment: [facility] performed at: [employer], [facility], [address] [facility], [address] [place] [address], [address] [place] [address], Curing Supervisor: Wilber Wilson MD [facility] Collection Date/Time: [facility] Results Received Date/Time: [facility] Reported Date/Time: Performed By: #### 3 020X, 6304R, %SBCULI #### [facility] Default [address] [place] [address] pH (U) 5.5 [pH] Normal 5.0-8.0 [facility] [employer] Comment on above: Order Comment: [facility] Testing performed at: [employer], [facility], [address] [place] [address], [address] [place] [address], [id number], Curing Supervisor: Wilber Wilson MD [facility] Collection Date/Time: [facility] Results Received Date/Time: [facility] Reported Date/Time: Performed By: #### 3 020X, 6304R, %SBCULI #### [facility] Default [address] [place] [address] Protein Ql (U) Negative Normal NEGATIVE [facility] Electrical [employer] Comment on above: Order Comment: [facility] Testing performed at: [employer], [facility], [address] [facility], [address] [place] [address], [address] [place] [address], Curing Supervisor: Wilber Wilson MD [facility] Collection Date/Time: [facility] Results Received Date/Time: [facility] Reported Date/Time: Performed By: #### 3 020X, 6304R, %SBCULI #### [facility] Default [address] [place] [address] RBC NONE SEEN Normal < OR = 2 [facility] [employer] Comment on above: Order Comment: [facility] performed at: [employer], [facility], [address] [facility], [address] [place] [address], [address] [place] [address], Curing Supervisor: Wilber Wilson MD [facility] Collection Date/Time: [facility] Results Received Date/Time: [facility] Reported Date/Time: Performed By: #### 3 020X, 6304R, %SBCULI #### [facility] Default [address] [place] [address] Specific gravity (U) [Rel density] 1.029 Normal 1.001-1.03 5 [facility] Electrical [employer] Comment on above: Order Comment: [facility] performed at: [employer], [facility], [address] [place] [address], [address] [place] [address], [address] [place] [address], Curing Supervisor: Wilber Wilson MD [facility] Collection Date/Time: [facility] Results Received Date/Time: [facility] Reported Date/Time: Performed By: #### 3 020X, 6304R, %SBCULI #### [facility] Default [address] [place] [address] SQUAMOUS EPITHELIAL CELLS 10-20 Abnormal < OR = 5 [facility] Electrical Solderer Comment on above: Order Comment: [facility] Testing performed at: [employer], [facility], [address] , [address] [place] [address], [address] [place] [address], Curing Supervisor: Wilber Wilson MD [facility] Collection Date/Time: [facility] Results Received Date/Time: [facility] Reported Date/Time: Performed By: #### 3 020X, 6304R, %SBCULI #### [facility] Default [address] [place] [address] WBC 20-40 Abnormal < OR = 5 [facility] Electrical Sol[employer] Comment on above: Order Comment: [facility] performed at: [facility], [address] [facility], [address] [facility], [place], [address], Curing Supervisor: Wilber Wilson MD [facility] Collection Date/Time: [facility] Results Received Date/Time: [facility] Reported Date/Time: Performed By: #### 3 020X, 6304R, %SBCULI #### [facility] Default [address] [place] [address] US PREG LIMITEDon 05-09-2021 US PREG LIMITED [...] BAILEY OTERO Date: 2021-05-09 10:39 Normal [facility] HEPATITIS C VIRUS AB W/ REFL EX QUANTon 04-08-2021 HCV AB >11.0 Critically high 0.0-0.[address] [facility] Comment on above: Result Comment: . Performed By: #### H CVPCRR #### [facility] Laboratory [address] [address] [address] Lilia Calvillo HCV log10 Normal [facility] Comment on above: Performed By: #### H CVPCRR #### [facility] Laboratory [address] [address] [address] Lilia Calvillo Hep C Quantitation Not detected Normal [facility] Comment on above: Performed By: #### H CVPCRR #### [facility] Laboratory [address] [address] [address] Lilia Calvillo Interpretation Comment Normal [facility] Comment on above: Result Comment: Posi tive HCV antibody screen without the presence of HCV RNA is consistent with a resolved past infection or a false positive HCV antibody. Consider repeat testing after one month. Performed By: #### H CVPCRR #### [facility] Laboratory [address] [address] [address] Lilia Calvillo Test Information: Comment Normal [facility] Comment on above: Result Comment: The quantitative range of this assay is 15 IU/mL to 100 million IU/mL. Performed By: #### H CVPCRR #### [facility] Laboratory [address] [address] [address] Lilia Calvillo RUBI BOX TEST PT SEND OUTo n 04-03-2021 SENT TO REF LAB 04/03/[address] [facility] Comment on above: Performed By: #### G TT3P #### [facility] Laboratory [address] [place] [address] Dr. Lilia Calvillo US PREG TVon 04-03-2021 [...] BAILEY OTERO Date: 2021-04-03 14:48 Normal [facility] Drug Screen Comprehensive Ur ineon 04-23-[address] [facility] Comment on above: Result Comment: Adul [...] was developed and the performance characteristicsdetermined by [facility]. Thisconfirmation testing has not been cleared or approvedby the FDA. The laboratory is regulated under CLIA asqualified to perform high-complexity testing. This testis used for patient testing purposes. It should not beregarded as investigational or for research.Test performed at [facility],[address] [place] [address] Kxstxgy G. Finn, MD - Agronomy Advisor Performed By: #### 6 9742-5, 68625-9, 91407-3, 40607-1, 37614-4, 02418-9, 65112-1, 90032-5 ####[facility] [address], [place]#### 44162-2, 32207-8 ####[facility], [address] [place], [place] Creatinine Urine - Toxicology 48 mg/dL Normal [facility] Comment on above: Performed By: #### 6 9742-5, 78717-6, 00235-3, 48632-1, 64545- 4, 94562-1, 36165-5, 11271-1 ####[facility] [address], [place]#### 93402-4, 69050-6 ####[facility], [address], [place] Drug Scr Urine SeeBelow Normal [facility] Comment on above: Result Comment: Drug s Detected in Urine: THC Cotinine Caffeine All drugs identified should be considered presumptive positives unless they have been identified by an alternate chemical method. These drugs have been qualitatively identified by either or both immunoassay or gas chromatography/mass spectrometry (GC/MS) Performed By: #### 6 9742-5, 93909-0, 63193-5, 76868-4, 04012-6, 69588-6, 32904-3, 18058-7 ####[facility] [address], [place]#### 90741-6, 88954-9 ####[facility], [address] [facility] [place], [place] Hepatitis C RNA (PCR) Quanti tativeon 04-23-2017 Hepatitis C PCR Log IU/ml 3.34 see fn High <1.08 [facility] Comment on above: Result Comment: Unit s: Log (10) IU/mLThis procedure utilizes a real-time polymerase chainreaction test from [employer]. The amplificationtarget is a conserved region of [...] resultdoes not rule out infection.Test performed at [facility],[address] [place] [address] Ymbvssq G. Finn, MD - Agronomy Advisor Performed By: #### 6 9742-5, 29457-2, 78793-7, 80772-5, 80824-8, 61624-1, 33928-7, 71993-2 ####[facility] [address], [place]#### 88302-3, 25495-8 ####[facility], [address], [place] Hepatitis C RNA PCR seefn High <12 [facility] Comment on above: Result Comment: Resu lt: 2,182 Performed By: #### 6 9742-5, 59068-1, 28070-2, 08318-8, 17484-4, 42778-0, 11740-0, 44958-2 ####[facility] [address], [place]#### 86736-8, 98475-5 ####[facility], [facility] [place], [place] Hepatitis C Virus RNA Ql DETECTED Abnormal [facility] Comment on above: Result Comment: Ref Range: Not detected Performed By: #### 6 9742-5, 20178-7, 81450-9, 18951-3, 85889-0, 95324-2, 24164-4, 08123-0 ####[facility] [address], [place]#### 73303-0, 42125-1 ####[facility], [address], [place] Hepatitis A Antibody Totalon 04-22-2017 Hepatitis A Antibody Negative Normal Negative [facility] Comment on above: Result Comment: Test performed at [facility],[address] [place] [address] Smrdumo G. Finn, MD - Agronomy Advisor Performed By: #### 6 9742-5, 19725-3, 22026-8, 15288-4, 07125-4, 42552-9, 27954-6, 48684-8 ####[facility] [address], [place]#### 40352-2, 51243-1 ####[facility], [address] [facility] [place] [address] [address], [place] Hepatitis B Core Antibody Ig Mon 04-21-2017 Interpretation and review of laboratory results Negative Normal NEGATIVE [facility] Comment on above: Result Comment: Hepa [...] POS VACCINATION Performed By: #### 6 9742-5, 64896-7, 83169-3, 84487-5, 06361-8, 49352-5, 37807-3, 19482-4 ####[facility] [address], [place]#### 90213-3, 87285-7 ####[facility], [address], [place] Hepatitis C Antibodyon 04-21 Hepatitis C Antibody Positive Abnormal NEGATIVE [facility] Comment on above: Result Comment: For [...] longer available. Performed By: #### 6 9742-5, 93813-5, 37983-5, 99410-2, 06351-1, 12517-5, 55161-5, 89723-3 ####[facility] [address], [place]#### 15373-5, 77038-2 ####[facility], [address], [place] Hepatitis C Antibody Positive Abnormal NEGATIVE [facility] Comment on above: Result Comment: For [...] longer available. Performed By: #### 6 9742-5, 06641-6, 54466-8, 20382-4, 05509-6, 83482-2, 72818-9, 57922-2 ####[facility] [address], [place]#### 43949-8, 92948-7 ####[facility], [address], [place] CBC with Differentialon 03-24 Basophils Auto #/vol (Bld) 0.00 thou/mcL Normal 0.00-0.20 [facility] Comment on above: Performed By: #### 6 9742-5, 62974-7, 68125-3, 50553-4, 68586- 4, 83174-2, 48715-4, 84584-9 ####[facility] [address], [place]#### 84981-3, 80056-6 ####[facility], [facility] [place], [place] Basophils/100 WBC Auto (Bld) 0.2 % Normal 0.0-2.0 [facility] Comment on above: Performed By: #### 6 9742-5, 15927-7, 85480-8, 84485-0, 60547- 4, 48309-0, 86154-2, 66170-9 ####[facility] [address], [place]#### 17429-9, 43489-5 ####[facility], [facility] [address] [place], [place] Eosinophils 0.10 thou/mcL Normal 0.00-0.70 [facility] Comment on above: Performed By: #### 6 9742-5, 76143-7, 30514-9, 73122-1, 16298- 4, 47364-6, 25534-9, 31893-9 ####[facility] [address], [place]#### 15528-8, 24008-5 ####[facility], [facility] [address] [place], [place] Eosinophils/100 leukocytes 1.8 % Normal 0.0-7.0 [facility] Comment on above: Performed By: #### 6 9742-5, 64830-7, 04995-3, 88825-4, 99455- 4, 36516-2, 46606-5, 27956-9 ####[facility] [address], [place]#### 78425-2, 05578-9 ####[facility], [facility] [address], [place] Erythrocyte distribution width Auto Ratio (RBC) 13.7 % Normal 11.0-14.8 [facility] Comment on above: Performed By: #### 6 9742-5, 73751-3, 96626-6, 85732-6, 79254- 4, 23270-9, 23170-9, 89559-0 ####[facility] [address], [place]#### 77134-2, 90450-8 ####[facility], [facility] [address], [place] Erythrocytes (RBC) 4.15 million/mcL Normal 3.80-5.10 [facility] Comment on above: Performed By: #### 6 9742-5, 88698-8, 12317-5, 42124-6, 15328- 4, 50750-7, 44374-4, 93299-9 ####[facility] [address], [place]#### 72280-7, 18248-5 ####[facility], [address], [place] Hematocrit (HCT) 37.0 % Normal 35.0-45.0 [facility] Comment on above: Performed By: #### 6 9742-5, 67199-4, 45392-5, 61510-8, 92850- 4, 14999-0, 59950-6, 07475-4 ####[facility] [address], [place]#### 53098-2, 62244-2 ####[facility], [address], [place] Hemoglobin mass conc (Bld) 12.2 g/dL Normal 12.0-16.0 [facility] Comment on above: Performed By: #### 6 9742-5, 76576-3, 81640-2, 86652-4, 91275- 4, 78863-9, 21438-8, 36745-2 ####[facility] [address], [place]#### 20492-2, 21647-2 ####[facility], [address], [place] Lymphocytes 1.80 thou/mcL Normal 1.00-4.80 [facility] Comment on above: Performed By: #### 6 9742-5, 84410-3, 39508-2, 14044-5, 80193- 4, 02474-8, 13352-9, 63793-1 ####[facility] [address], [place]#### 49307-9, 72640-3 ####[facility], [facility] [address], [place] Lymphocytes/100 leukocytes 34.6 % Normal 22.0-44.0 [facility] Comment on above: Performed By: #### 6 9742-5, 63241-0, 89522-4, 19538-0, 35089- 4, 55221-8, 30586-7, 38323-0 ####[facility] [address], [place]#### 36116-5, 36351-9 ####[facility], [address], [place] MCH 29.4 Picograms Normal 27.0-34.0 [facility] Comment on above: Performed By: #### 6 9742-5, 34668-6, 54870-0, 07212-8, 52448- 4, 11223-6, 63659-8, 11171-6 ####[facility] [address], [place]#### 82465-7, 29272-0 ####[facility], [address], [place] MCHC mass conc (RBC) 33.0 g/dL Normal 32.0-36.0 [facility] Comment on above: Performed By: #### 6 9742-5, 86161-1, 94980-2, 83993-4, 13529- 4, 40933-5, 96825-2, 15314-7 ####[facility] [address], [place]#### 41200-2, 03282-3 ####[facility], [address], [place] MCV 89.2 fL Normal 80.0-97.0 [facility] Comment on above: Performed By: #### 6 9742-5, 77910-7, 11113-2, 96828-6, 61484- 4, 74201-2, 97103-5, 27834-5 ####[facility] [address], [place]#### 43877-7, 65358-2 ####[facility], [address], [place] Monocytes 0.30 thou/mcL Normal 0.00-0.90 [facility] Comment on above: Performed By: #### 6 9742-5, 40956-5, 90205-5, 66093-3, 54488- 4, 39188-9, 42838-0, 26800-0 ####[facility] [address], [place]#### 26555-9, 19732-6 ####[facility], [address], [place] Monocytes/100 leukocytes 6.0 % Normal 0.0-12.0 [facility] Comment on above: Performed By: #### 6 9742-5, 80328-8, 18108-3, 20197-8, 31065- 4, 44407-3, 85121-2, 68103-1 ####[address] [place], [place]#### 29196-1, 91081-1 ####[facility], [address], [place] Neutrophils 3.00 thou/mcL Normal 1.80-7.70 [facility] Comment on above: Performed By: #### 6 9742-5, 63407-9, 50619-5, 68267-9, 96442- 4, 40190-2, 59124-2, 17904-9 ####[facility] [address], [place]#### 97439-1, 71641-4 ####[facility], [facility] [address], [place] Neutrophils/100 WBC Auto (Bld) 57.4 % Normal 40.0-70.0 [facility] Comment on above: Performed By: #### 6 9742-5, 04378-5, 84195-1, 57966-5, 95579- 4, 32554-9, 18180-4, 68594-2 ####[facility] [address], [place]#### 48255-6, 34901-7 ####[facility], [address], [place] Platelet mean volume (PMV) 11.9 fL Normal 6.2-12.1 [facility] Comment on above: Performed By: #### 6 9742-5, 59877-8, 95386-1, 79741-4, 99061- 4, 04839-3, 68729-9, 96379-9 ####[facility] [address], [place]#### 23044-5, 40307-0 ####[facility], [address], [place] Platelets 173 thou/mcL Normal 142-424 [facility] Comment on above: Performed By: #### 6 9742-5, 77107-6, 11195-6, 46358-9, 10995- 4, 75799-6, 80368-6, 47630-8 ####[facility] [address], [place]#### 70003-4, 57603-5 ####[facility], [address], [place] WBC (Leukocytes) 5.2 thou/mcL Normal 4.6-10.2 [facility] Comment on above: Performed By: #### 6 9742-5, 46357-0, 39421-2, 15485-7, 00342- 4, 59599-4, 99423-3, 16677-1 ####[facility] [address] [place], [place]#### 40310-3, 84600-7 ####[facility], [address], [place] Comprehensive Metabolic Pane blanquita 04-20-2017 Alanine aminotransferase (ALT) 37 Units/L Normal 14-63 [facility] Comment on above: Performed By: #### 6 9742-5, 39480-1, 89363-4, 14247-4, 86728- 4, 10682-0, 56005-4, 40827-5 ####[facility] [address] [place], [place]#### 57375-7, 53742-2 ####[facility], [address], [place] Albumin 4.2 g/dL Normal 3.5-4.8 [facility] Comment on above: Performed By: #### 6 9742-5, 78631-7, 56809-3, 68531-5, 60262- 4, 53792-6, 85577-1, 20657-5 ####[facility] [address], [place]#### 42733-9, 89019-2 ####[facility], [address], [place] Alkaline phosphatase (ALP) 45 Units/L Normal 32-91 [facility] Comment on above: Performed By: #### 6 9742-5, 48716-2, 41871-7, 29629-2, 26769- 4, 81204-3, 01943-8, 38141-5 ####[facility] [address], [place]#### 11119-1, 52793-5 ####[facility], [address], [place] Anion gap 10.0 mmol/L Normal 6.0-18.0 [facility] Comment on above: Result Comment: PLEA NOTE:The calculated Anion Gap(AGAP) does not include Potassium. Performed By: #### 6 9742-5, 98933-4, 58259-0, 83831-1, 05567-2, 76203-4, 06660-2, 98107-6 ####[facility] [address], [place]#### 77735-5, 84867-0 ####[facility], [address], [place] Aspartate aminotransferase (AST) 29 Units/L Normal 15-41 [facility] Comment on above: Performed By: #### 6 9742-5, 31858-3, 77176-3, 51752-8, 04801- 4, 70604-3, 05677-3, 96559-7 ####[facility] [address] [place], [place]#### 44297-4, 53009-2 ####[facility], [address], [place] Bilirubin (total) 0.5 mg/dL Normal 0.3-1.2 [facility] Comment on above: Performed By: #### 6 9742-5, 12090-7, 11477-4, 96943-9, 10918- 4, 25074-0, 54988-6, 86302-4 ####[facility] [address] [place], [place]#### 89271-2, 38492-4 ####[facility], [address], [place] Calcium 9.4 mg/dL Normal 8.9-10.3 [facility] Comment on above: Performed By: #### 6 9742-5, 68824-7, 12580-2, 77972-9, 35787- 4, 80021-6, 79428-9, 57168-3 ####[facility] [address] [place], [place]#### 36408-6, 04658-0 ####[facility], [address], [place] Chloride 102 mmol/L Normal 98-107 [facility] Comment on above: Performed By: #### 6 9742-5, 58510-8, 32514-6, 82227-0, 35604- 4, 15283-8, 78737-2, 19097-6 ####[facility] [address] [place], [place]#### 13041-3, 71981-6 ####[facility] LABORATORY, [address], [place] CO2 26 mmol/L Normal 22-32 [facility] Comment on above: Performed By: #### 6 9742-5, 05914-2, 63136-0, 45823-4, 23070- 4, 57791-1, 16017-8, 34926-9 ####[facility] [address] [place], [place]#### 24842-4, 99708-7 ####[facility], [address], [place] Creatinine 0.67 mg/dL Normal 0.60-1.30 [facility] Comment on above: Performed By: #### 6 9742-5, 26876-5, 41441-6, 17087-8, 53563- 4, 21955-4, 21206-4, 32090-7 ####[facility] [address] [place], [place]#### 47837-3, 82824-6 ####[facility], [address], [place] Glucose mass conc 119 mg/dL High 70-110 [facility] Comment on above: Performed By: #### 6 9742-5, 26577-3, 69115-9, 96870-6, 01220- 4, 60763-8, 57352-5, 74531-5 ####[facility] [address] [place], [place]#### 24746-5, 91755-7 ####[facility], [address], [place] Potassium molar conc 4.2 mmol/L Normal 3.6-5.1 [facility] Comment on above: Performed By: #### 6 9742-5, 81466-4, 20875-0, 83382-4, 15499- 4, 67082-5, 15646-4, 81390-3 ####[facility] [address] [place], [place]#### 10022-2, 55075-4 ####[facility], [address], [place] Protein 6.7 g/dL Normal 6.1-7.9 [facility] Comment on above: Performed By: #### 6 9742-5, 68104-6, 42553-5, 95561-8, 68659- 4, 09377-7, 02615-9, 26058-1 ####[facility] [address] [place], [place]#### 80846-2, 27017-7 ####[facility], [address], [place] Sodium 138 mmol/L Normal 136-145 [facility] Comment on above: Performed By: #### 6 9742-5, 95897-5, 36594-3, 41734-6, 32291- 4, 03366-6, 33027-1, 58170-7 ####[facility] [address] [place], [place]#### 22864-5, 32308-5 ####[facility], [address], [place] Urea nitrogen 9 mg/dL Normal 8-20 [facility] Comment on above: Performed By: #### 6 9742-5, 61755-8, 64110-8, 99651-8, 87407- 4, 57384-6, 50525-4, 10547-7 ####[place] [address] [place], [place]#### 26554-1, 09068-1 ####[facility], [address], [place] Culture Urine + Susceptibili tyon 04-20-2017 Urine culture, bacteria [facility] MicrobiologyPROCEDURE: Culture Urine + SusceptibilitySOURCE: Urine BODY SITE:COLLECTED DATE/TIME: 04/20/2017 09:07 EST RECEIVED DATE/TIME: 04/20/2017 09:07 ESTSTART DATE/TIME: 04/20/2017 09:07 EST FREE TEXT SOURCE: URINE-URINEINTERFACED REPORTSFinal Report []Verified Date/Time/Personnel: 04/21/2017 18:58 EST CONTRIBUTOR_SYSTEM, CO_PNNO GROWTH Normal [facility] Comment on above: Performed By: #### 6 9742-5, 44979-1, 93690-7, 69008-8, 34865- 4, 45230-7, 17170-9, 15921-4 ####[facility] [address] [place], [place]#### 04565-2, 03400-8 ####[facility], [address] [place], [place] GFRaaon 04-20-2017 eGFR (black) mL/min/{1.73_m2} Normal [facility] Comment on above: Result Comment: The MDRD equation has not been validated for those over 70 years, women, patients with serious co-morbid conditions, or with extremes of bodysize, muscle mass of nutritional status. Performed By: #### 6 9742-5, 10509-0, 86812-7, 92060-9, 04686-2, 29507-7, 40866-0, 32148-4 ####[facility] [address], [place]#### 65940-1, 84927-0 ####[facility], [address] [place], [place] GFRbbon 04-20-2017 eGFR (non-black) mL/min/{1.73_m2} Normal [facility] Comment on above: Performed By: #### 6 9742-5, 59742-9, 62223-6, 75237-1, 90801- 4, 76799-1, 36164-4, 74218-6 ####[facility] [address], [place]#### 41287-0, 17725-7 ####[facility], [address] [place], [place] HCG Quantitativeon 201 8 HCG Qn m[IU]/mL Normal [facility] Comment on above: Result Comment: Preg [...] immunoassay method. Performed By: #### 6 9742-5, 01097-2, 07271-3, 38196-2, 47271-1, 05080-4, 94552-7, 54270-5 ####[facility] [address], [place]#### 35609-1, 38082-1 ####[facility], [address] [place], [place] HIV 1 Antibodyon 04-20-2017 HIV Screen NONREAC Normal NONREAC [facility] Comment on above: Result Comment: This is a 4th generation test (P24 AG,HIV-1 AB, HIV-2 AB)Specimens with preliminary reactive results will be confirmed by HIV1/2Differentiation test ([employer]). THE IDENTITY OF A PERSON ON WHOM [...] equitable relief. Performed By: #### 6 9742-5, 92147-0, 04329-9, 61874-6, 19591-8, 04134-5, 70459-2, 33727-2 ####[facility] [address], [place]#### 50483-6, 42300-3 ####[facility], [address] [place], [place] Hepatitis A (HAAb) Antibody IgMon 04-20-2017 Hepatitis A (HAAb) Antibody IgM Negative Normal NEGATIVE [facility] Comment on above: Result Comment: Hepa titis A Virus Antibody-IgM Specific. Performed By: #### 6 9742-5, 25878-0, 98003-9, 58601-1, 10165-8, 80176-4, 51192-9, 12789-3 ####[facility] [address], [place]#### 74723-8, 46298-1 ####[facility], [address], [place] Hepatitis B Core Antibody To shirley 04-20-2017 Interpretation and review of laboratory results Negative Normal NEGATIVE [facility] Comment on above: Performed By: #### 6 9742-5, 48962-6, 85677-8, 86331-9, 32378- 4, 51590-7, 76818-1, 58254-5 ####[facility] [address] [place], [place]#### 86826-3, 83686-8 ####[facility], [facility] [address], [place] Hepatitis B Surface Antibody on 04-20-2017 Hepatitis B Surface Antibody Interp Negative Normal NEGATIVE [facility] Comment on above: Performed By: #### 6 9742-5, 06151-7, 46017-5, 81393-3, 00492- 4, 01011-3, 95645-2, 67801-6 ####[facility] [address] [place], [place]#### 87900-3, 08319-7 ####[facility], [address], [place] Magnesium Levelon 04-20-2017 Magnesium 2.0 mg/dL Normal 1.8-2.5 [facility] Comment on above: Performed By: #### 6 9742-5, 28054-0, 11015-7, 40275-0, 54323- 4, 96747-1, 61374-0, 57876-4 ####[facility] [address], [place]#### 43483-2, 58466-3 ####[facility], [facility] [address], [place] Phosphorus Levelon 8 Phosphorus Level 3.8 mg/dL Normal 2.4-4.7 [facility] Comment on above: Performed By: #### 6 9742-5, 46653-4, 71968-7, 94121-0, 20378- 4, 41072-7, 53002-5, 88716-3 ####[facility] [address], [place]#### 45209-8, 67222-1 ####[facility], [address] [place], [place] Syphilis Screenon 04-20-2017 Syphilis Screen NONREAC Normal NONREAC [facility] Comment on above: Result Comment: No s erologic evidence of syphilis. Performed By: #### 6 9742-5, 72183-0, 19015-2, 69523-4, 91496-1, 32213-3, 21030-8, 47140-4 ####[facility] [address], [place]#### 37835-8, 65241-3 ####[facility], [address] [place], [place] Vital Signs Date Time Vital Sign Value Performing Clinician Facility 08-28-2024 10:35-0400 Body mass index (BMI) [Ratio] 29.94 kg/m2 Jaguar Ingrid DO Work Phone: [facility] 08-28-2024 10:35-0400 Body weight 74.84 kg Jaguar Ingrid DO Work Phone: [facility] 08-28-2024 10:35-0400 Diastolic blood pressure 72 mm[Hg] Jaguar Ingrid DO Work Phone: [facility] 08-28-2024 10:35-0400 Systolic blood pressure 118 mm[Hg] Jaguar Ingrid DO Work Phone: [facility] 07-19-2024 10:03-0400 Body mass index (BMI) [Ratio] 28.8 kg/m2 Corby Royal NP Work Phone: [facility] 07-19-2024 10:03-0400 Body weight 72.01 kg Corby Royal NP Work Phone: [facility] 07-19-2024 10:03-0400 Diastolic blood pressure 60 mm[Hg] 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 Work Phone: [facility] 07-19-2024 10:03-0400 Systolic blood pressure 100 mm[Hg] Corby Genny ER MEDICAL TECHNICIAN Work Phone: [facility] 06-29-2024 17:00-0400 Diastolic blood pressure 46 mm[Hg] Yaz Hollis DO Work Phone: [place] 06-29-2024 17:00-0400 Heart rate 85 /min GAdeline Hollis DO Work Phone: [place] 06-29-2024 17:00-0400 Respiratory rate 16 /min Yaz Hollis DO Work Phone: [place] 06-29-2024 17:00-0400 SaO2% (BldA) [Mass fraction] 98 % Yaz Hollis DO Work Phone: [place] 06-29-2024 17:00-0400 Systolic blood pressure 114 mm[Hg] Yaz Hollis DO Work Phone: [place] 06-29-2024 15:13-0400 Body temperature 97.8 [degF] Yaz Hollis DO Work Phone: [place] 06-29-2024 15:07-0400 Body height 160.02 cm Yaz Hollis DO Work Phone: [place] 06-29-2024 15:07-0400 Body weight 68.03 kg Yaz Hollis DO Work Phone: [place] 06-21-2024 13:01-0400 Body mass index (BMI) [Ratio] 27.67 kg/m2 Jaguar Ingrid DO Work Phone: [facility] 06-21-2024 13:01-0400 Body weight 69.17 kg Jaguar Ingrid DO Work Phone: [facility] 06-21-2024 13:01-0400 Diastolic blood pressure 66 mm[Hg] Jaguar Ingrid DO Work Phone: [facility] 06-21-2024 13:01-0400 Systolic blood pressure 104 mm[Hg] Jaguar Ingrid DO Work Phone: [facility] 06-07-2024 14:10-0400 Body temperature 97.9 [degF] Yaz Hollis DO Work Phone: [place] 06-07-2024 14:10-0400 Diastolic blood pressure 72 mm[Hg] Yaz Hollis DO Work Phone: [place] 06-07-2024 14:10-0400 Heart rate 88 /min Yaz Hollis DO Work Phone: [place] 06-07-2024 14:10-0400 Respiratory rate 20 /min Yaz Hollis DO Work Phone: [place] 06-07-2024 14:10-0400 SaO2% (BldA) [Mass fraction] 98 % Yaz Hollis DO Work Phone: [place] 06-07-2024 14:10-0400 Systolic blood pressure 119 mm[Hg] Yaz Hollis DO Work Phone: [place] 06-07-2024 11:07-0400 Body height 160.02 cm Yaz Hollis DO Work Phone: [place] 06-07-2024 11:07-0400 Body weight 69.3 kg Yaz Hollis DO Work Phone: [place] 05-25-2024 13:40-0500 Body mass index (BMI) [Ratio] 28.27 kg/m2 Sulema PATEL Work Phone: [facility] 05-25-2024 13:40-0500 Body weight 70.67 kg Sulema PATEL Work Phone: [facility] 05-25-2024 13:40-0500 Diastolic blood pressure 60 mm[Hg] Sulema PATEL Work Phone: [facility] 05-25-2024 13:40-0500 Systolic blood pressure 110 mm[Hg] Sulema PATEL Work Phone: [facility] 05-19-2024 12:23-0500 Diastolic blood pressure 55 mm[Hg] GAdeline Hollis DO Work Phone: [place] 05-19-2024 12:23-0500 Heart rate 94 /min G. Enoch Smallftan DO Work Phone: [place] 05-19-2024 12:23-0500 Respiratory rate 18 /min G. Enoch Smallftan DO Work Phone: [place] 05-19-2024 12:23-0500 SaO2% (BldA) [Mass fraction] 99 % GAdeline Smalltoniemadeline DO Work Phone: [place] 05-19-2024 12:23-0500 Systolic blood pressure 97 mm[Hg] GAdeline Smithan DO Work Phone: [place] 05-19-2024 08:55-0500 Body height 160.02 cm G. Enoch Hollis DO Work Phone: [place] 05-19-2024 08:55-0500 Body temperature 97.9 [degF] Yaz Hollis DO Work Phone: [place] 05-19-2024 08:55-0500 Body weight 67.85 kg Yaz Smithan DO Work Phone: [place] 05-16-2024 12:56-0500 Diastolic blood pressure 80 mm[Hg] G. Enoch Smalltoniean DO Work Phone: [place] 05-16-2024 12:56-0500 Heart rate 94 /min GAdeline Smallftan DO Work Phone: [place] 05-16-2024 12:56-0500 Respiratory rate 16 /min GAdeline Smallftmadeline DO Work Phone: [place] 05-16-2024 12:56-0500 SaO2% (BldA) [Mass fraction] 99 % Yaz Hollis DO Work Phone: [place] 05-16-2024 12:56-0500 Systolic blood pressure 122 mm[Hg] Yaz Hollis DO Work Phone: [place] 05-16-2024 10:08-0500 Body height 160.02 cm Yaz Hollis DO Work Phone: [place] 05-16-2024 10:08-0500 Body temperature 97.7 [degF] Yaz Hollis DO Work Phone: [place] 05-16-2024 10:08-0500 Body weight 68.03 kg Yaz Hollis DO Work Phone: [place] 04-24-2024 14:45-0500 Body mass index (BMI) [Ratio] 27.16 kg/m2 Jaguar Ingrid DO Work Phone: [facility] 04-24-2024 14:45-0500 Body weight 67.9 kg Jaguar Ingrid DO Work Phone: [facility] 04-24-2024 14:45-0500 Diastolic blood pressure 66 mm[Hg] Jaguar Ingrid DO Work Phone: [facility] 04-24-2024 14:45-0500 Systolic blood pressure 108 mm[Hg] Jaguar Ingrid DO Work Phone: [facility] 04-05-2024 19:16-0500 Diastolic blood pressure 71 mm[Hg] Yaz Hollis DO Work Phone: [place] 04-05-2024 19:16-0500 Heart rate 87 /min Yaz Hollis DO Work Phone: [place] 04-05-2024 19:16-0500 Respiratory rate 20 /min Yaz Hollis DO Work Phone: [place] 04-05-2024 19:16-0500 SaO2% (BldA) [Mass fraction] 97 % Yaz Hollis DO Work Phone: [place] 04-05-2024 19:16-0500 Systolic blood pressure 106 mm[Hg] Yaz Hollis DO Work Phone: [place] 04-05-2024 14:46-0500 Body height 160.02 cm Yaz Hollis DO Work Phone: [place] 04-05-2024 14:46-0500 Body temperature 97.9 [degF] Yaz Hollis DO Work Phone: [place] 04-05-2024 14:46-0500 Body weight 65 kg Yaz Hollis DO Work Phone: [place] 03-24-2024 11:29-0500 Body mass index (BMI) [Ratio] 24.49 kg/m2 [facility] Nurse [facility] 03-24-2024 11:29-0500 Body weight 61.24 kg [facility] Nurse [facility] 03-24-2024 11:29-0500 Diastolic blood pressure 68 mm[Hg] [facility] Nurse [facility] 03-24-2024 11:29-0500 Systolic blood pressure 112 mm[Hg] [facility] 03-04-2024 13:32-0500 Diastolic blood pressure 70 mm[Hg] Yaz Hollis DO Work Phone: [place] 03-04-2024 13:32-0500 Heart rate 76 /min Yaz Hollis DO Work Phone: [place] 03-04-2024 13:32-0500 Respiratory rate 20 /min Yaz Hollis DO Work Phone: [place] 03-04-2024 13:32-0500 SaO2% (BldA) [Mass fraction] 100 % Yaz Hollis DO Work Phone: 8(624)710-222165 [address] 03-04-2024 13:32-0500 Systolic blood pressure 115 mm[Hg] Yaz Hollis DO Work Phone: 5(967)683-115582 [place] [address] 03-04-2024 11:14-0500 Body height 160.02 cm Yaz Hollis DO Work Phone: 3(461)838-310782 [place] [address] 03-04-2024 11:14-0500 Body temperature 97.9 [degF] Yaz Hollis DO Work Phone: 5(238)822-512582 [place] [address] 03-04-2024 11:14-0500 Body weight 63 kg Yaz Hollis DO Work Phone: 0(778)043-014865 [address] 11-25-2023 17:46-0400 Body height 160.02 cm DO Yaz Hollis Work Phone: 1(394)270-553265 [address] 11-25-2023 17:46-0400 Body temperature 98 [degF] DO Yaz Hollis Work Phone: 5(861)583-322265 [address] 11-25-2023 17:46-0400 Body weight 65.77 kg DO Yaz Hollis Work Phone: 4(520)615-330282 [place] [address] 11-25-2023 17:46-0400 Diastolic blood pressure 71 mm[Hg] DO Yaz Hollis Work Phone: 7(610)918-698682 [place] [address] 11-25-2023 17:46-0400 Heart rate 68 /min DO Yaz Hollis Work Phone: [place] 11-25-2023 17:46-0400 Respiratory rate 18 /min DO Yaz Hollis Work Phone: 4(509)471-907782 [place] [address] 11-25-2023 17:46-0400 SaO2% (BldA) [Mass fraction] 97 % DO Yaz Hollis Work Phone: [place] 11-25-2023 17:46-0400 Systolic blood pressure 107 mm[Hg] DO Yaz Hollis Work Phone: [place] 12-02-2022 13:15-0400 Body height 160.02 cm Claribelbrie Mora Other [employer] Other 12-02-2022 13:15-0400 Body mass index (BMI) [Ratio] 25.86 kg/m2 Claribel Mora Other [employer] Other 12-02-2022 13:15-0400 Body weight 66.23 kg Claribel Mora Other [employer] Other 12-02-2022 13:15-0400 Diastolic blood pressure 66 mm[Hg] Claribel Abby Other [employer] Other 12-02-2022 13:15-0400 Respiratory rate 18 /min Claribel Mora Other [employer] Other 12-02-2022 13:15-0400 SaO2% (BldA) [Mass fraction] 98 % Claribelbrie Mora Other [employer] Other 12-02-2022 13:15-0400 Systolic blood pressure 100 mm[Hg] Claribel Mora Other [employer] Other 07-16-2022 14:45-0400 Body height 160.02 cm Claribeljessica Mora Other [employer] Other 07-16-2022 14:45-0400 Body mass index (BMI) [Ratio] 27.22 kg/m2 Claribelbrie Mora Other [employer] Other 07-16-2022 14:45-0400 Body weight 69.72 kg Claribeljessica Mora Other [employer] Other 07-16-2022 14:45-0400 Diastolic blood pressure 64 mm[Hg] Claribel Mora Other [employer] Other 07-16-2022 14:45-0400 Respiratory rate 18 /min Claribel Mora Other [employer] Other 07-16-2022 14:45-0400 SaO2% (BldA) [Mass fraction] 97 % Claribel Mora Other [employer] Other 07-16-2022 14:45-0400 Systolic blood pressure 104 mm[Hg] Claribel Mora Other [employer] Other 06-04-2022 15:15-0400 Body height 160.02 cm Adin Gan Other [employer] Other 06-04-2022 15:15-0400 Body mass index (BMI) [Ratio] 27.28 kg/m2 Adin Gan Other [employer] Other 06-04-2022 15:15-0400 Body weight 69.85 kg Adin Gan Other [employer] Other 06-04-2022 15:15-0400 Diastolic blood pressure 80 mm[Hg] Adin Gan Other [employer] Other 06-04-2022 15:15-0400 Respiratory rate 18 /min Adin Gan Other [employer] Other 06-04-2022 15:15-0400 SaO2% (BldA) [Mass fraction] 98 % Adin Gan Other [employer] Other 06-04-2022 15:15-0400 Systolic blood pressure 126 mm[Hg] Adin Gan Other [employer] Other 05-25-2022 15:30-0500 Body height 160.02 cm Adin Gan Other [employer] Other 05-25-2022 15:30-0500 Body mass index (BMI) [Ratio] 27.28 kg/m2 Adin Gan Other [employer] Other 05-25-2022 15:30-0500 Body weight 69.85 kg Adin Gan Other [employer] Other 05-25-2022 15:30-0500 Diastolic blood pressure 80 mm[Hg] Adin Gan Other [employer] Other 05-25-2022 15:30-0500 Respiratory rate 18 /min Adin Gan Other [employer] Other 05-25-2022 15:30-0500 SaO2% (BldA) [Mass fraction] 99 % Adin Gan Other [employer] Other 05-25-2022 15:30-0500 Systolic blood pressure 124 mm[Hg] Adin Gan Other [employer] Other 05-30-2021 03:06-0500 Body weight 72.[address] RUSTAM SCALES [facility] Comment on above: Performed By: #### AFPMAT #### [facility] [address] [place] [address] Dr. 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: [facility] Comment on above: Upper respiratory tr act infection, unspecified type (Primary Dx); Second trimester ; 25 weeks gestation of ; Vomiting complicating Start: 07-19-2024 End: 07-19-2024 ambulatory CORBY ROYAL Not Available Start: 06-29-2024 End: 06-29-2024 Emergency department patient visit Yaz Hollis DO Work Phone: [facility] Work Phone: Start: 06-21-2024 [...] patient visit Yaz Hollis DO Work Phone: [facility] Work Phone: Start: 05-25-2024 End: 05-25-2024 [...] patient visit Yaz Hollis DO Work Phone: [facility] Work Phone: Start: 05-16-2024 End: 05-16-2024 Emergency department patient visit Yaz Hollis DO Work Phone: [facility] Work Phone: Start: 04-24-2024 End: 04-24-2024 [...] patient visit Yaz Hollis DO Work Phone: [facility] Work Phone: Start: 04-03-2024 End: 04-03-2024 [...] patient visit Yaz Hollis DO Work Phone: [facility] Work Phone: Start: 11-25-2023 End: 11-25-2023 Emergency department patient visit DO Yaz Hollis Work Phone: [facility] Work Phone: Start: 10-05-2023 End: 10-05-2023 ambulatory RICARDO POWELL Not Available Start: 12-02-2022 End: 12-02-2022 ambulatory Claribelbrie Mora Other [employer] Other Start: 12-02-2022 Office outpatient vi sit 25 minutes Claribelbrie Mora [facility] Start: 07-16-2022 End: 07-16-2022 ambulatory Claribel Mora Other [employer] Other Start: 07-16-2022 Office outpatient vi sit 25 minutes Claribel Mora [facility] Start: 06-08-2022 End: 06-08-2022 ambulatory Adin Gan Other [employer] Other Start: 06-08-2022 Telephone encounter Adin Ahn [facility] [place] Start: 06-05-2022 End: 06-05-2022 ambulatory Adin Gan Other [employer] Other Start: 06-05-2022 Telephone encounter Adin Ahn [facility] [place] Start: 06-04-2022 End: 06-04-2022 Patient encounter procedure DO Adin Gan Work Phone: [facility] Start: 06-04-2022 End: 06-04-2022 ambulatory DO Adin Gan Work Phone: [facility] Work Phone: Start: 06-04-2022 Office outpatient vi sit 15 minutes Adin Gan [facility] [place] Start: 05-25-2022 End: 05-25-2022 ambulatory Adin Gan Other [employer] Other Start: 05-25-2022 Office outpatient vi sit 15 minutes Adin Gan [facility] [place] Start: 05-22-2022 End: 05-22-2022 ambulatory Adin Gan Other [employer] Other Start: 05-22-2022 Telephone encounter Adin MA [facility] [place] Start: 05-07-2022 End: 05-07-2022 ambulatory Adin Gan Other [employer] Other Start: 05-07-2022 Telephone encounter Adin MA G [facility] [place] Start: 04-01-2022 End: 04-01-2022 ambulatory Nabil Mcgraw Other [employer] Other Start: 04-01-2022 Telephone encounter Nabil Mcgraw [facility] [place] Start: 02-17-2022 End: 02-17-[address] JAGUAR QUINTERO Facility:[facility] Start: 10-22-2021 Encounter for preprocedural laboratory examination DR JAGUAR QUINTERO [facility] Start: 10-21-2021 End: 10-21-[address] JAGUAR QUINTERO Facility:[facility] Start: 10-16-2021 End: 10-18-2021 Evaluation and management of inpatient DR JAGUAR QUINTERO Facility:[facility] Start: 10-14-2021 Encounter for preprocedural laboratory examination DR JAGUAR QUINTERO [facility] Start: 10-13-2021 End: 10-14-2021 ambulatory NONE [...] et rgnt non-auto w/o micrscp 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 Work Phone: Start: 06-21-2024 Urnls dip stick/tabl [...] Screening for malign ant neoplasm of cervix [facility] Start: 01-02-2026 Screening for malign ant neoplasm of cervix [facility] Start: 11-20-2024 Influenza vaccination Influenz a Vaccine (Season Ended) [facility] Start: 09-11-2024 End: 09-11-2024 Patient encounter procedure 09/11/2024 1:50 PM EDT Routine [facility] [address] [place] [id number] Sulema Lau PA [address] [place] [address] [facility] Start: 09-11-2024 End: 09-11-2024 Patient encounter procedure 09/11/2024 9:30 AM EDT Routine [facility] [address] [place] [id number] Sulema Lau PA [address] [place] [address] [facility] Start: 08-28-2024 End: 08-28-2025 Transferrin [Mass/volume] in Serum or Plasma Transferrin Lab Routine Third trimester Gestational diabetes mellitus (GDM), antepartum, gestational diabetes method of control unspecified Elevated glucose tolerance test Anemia affecting in third trimester Expected: 08/28/2024 (Approximate), Expires: 08/28/2025 [facility] Comment on above: Expected: 08/28/2024 (Approximate), Expires: 08/28/2025 Start: 08-28-2024 End: 02-27-2025 US biophysical profile w non stress test US biophysical profile w non stress test Imaging Routine Third trimester Anemia affecting in third trimester Expected: 08/28/2024 (Approximate), Expires: 02/27/2025 [facility] Work Phone: Comment on above: Expected: 08/28/2024 (Approximate), Expires: 02/27/2025 Start: 08-28-2024 End: 12-28-2024 US for US OB follow up transabdominal approach Imaging Routine Third trimester Gestational diabetes mellitus (GDM), antepartum, gestational diabetes method of control unspecified Elevated glucose tolerance test Anemia affecting in third trimester Expected: 08/28/2024, Expires: 12/28/2024 [facility] Comment on above: Expected: 08/28/2024 , Expires: 12/28/2024 Start: 08-28-2024 End: 08-28-2024 Patient encounter procedure 08/28/2024 10:50 AM EDT Routine [facility] [address] [id number] Jaguar Quintero DO [address] [place] [address] Arrived [facility] Comment on above: Arrived Start: 08-10-2024 End: 08-10-2024 Patient encounter procedure 08/10/2024 11:10 AM EDT Routine [facility] [address] [place] [id number] Jaguar Quintero DO [address] [place] [address] [facility] Start: 07-19-2024 End: 07-19-2024 Patient encounter procedure 07/19/2024 10:30 AM EDT Routine [facility] [address] [place] [id number] Sulema Lau PA [address] [place] [address] [facility] Start: 07-19-2024 End: 07-19-2024 Professional / ancillary services management 07/19/2024 9:30 AM EDT Ancillary Procedure [facility] [address] [place] [id number] [facility] Start: 06-29-2024 Urine culture [place] Start: 06-29-2024 Bacteria identified in Urine by Culture Urine Culture [place] Start: 06-21-2024 End: 06-21-2025 CBC panel - Blood by Automated count CBC Lab Routine Diabetes mellitus screening Expected: 06/21/2024 (Approximate), Expires: 06/21/2025 [facility] Comment on above: Expected: 06/21/2024 (Approximate), Expires: 06/21/2025 Start: 06-21-2024 End: 06-21-2025 Measurement of glucose 1 hour after glucose challenge for glucose tolerance test Glucose tolerance, 1 hour Lab Routine Diabetes mellitus screening Expected: 06/21/2024 (Approximate), Expires: 06/21/2025 [facility] Comment on above: Expected: 06/21/2024 [...] EDT Ancillary Procedure [facility] [address] [place] [id number] [facility] Start: 05-25-2024 End: 05-25-2025 [...] gestational age Expected: 03/24/2024 (Approximate), Expires: 03/24/2025 [facility] Work Phone: Comment on above: Expected: 03/24/2024 (Approximate), Expires: 03/24/2025 Start: 03-24-2024 End: 03-24-2025 Drugs of abuse panel - Urine by Screen method Rapid drug screen, urine Lab Routine , unspecified gestational age Encounter for supervision of normal first in first trimester Expected: 03/24/2024 (Approximate), Expires: 03/24/2025 [facility] Comment on above: Expected: 03/24/2024 (Approximate), Expires: 03/24/2025 Start: 11-21-2023 Influenza vaccination Influenza Vacc ine (#1) [facility] Start: 2014 Screening for malign ant neoplasm of cervix Pap Smear [facility] Bacteria identified in Urine by Culture Urine culture Microbiology Routine Missed menses Ordered: 03/24/2024 [facility] Comment on above: Ordered: 03/24/2024 CBC W Auto Different ial panel - Blood CBC and differential Lab Routine Missed menses , unspecified gestational age Ordered: 03/24/2024 [facility] Comment on above: Ordered: 03/24/2024 CHLAMYDIA TRACHOMATI S (GENITO/STI) CHLAMYDIA TRACHOMATIS (GENITO/STI) Lab Routine Exposure to STD Ordered: 05/25/2024 [facility] Comment on above: Ordered: 05/25/2024 Cytology Cervical or vaginal smear or scraping study Pap Smear Pathology and Cytology Routine Well woman exam with routine gynecological exam Ordered: 05/25/2024 [facility] Comment on above: Ordered: 05/25/2024 Ferritin [Mass/volum e] in Serum or Plasma Ferritin Lab Routine Third trimester Anemia affecting in third trimester Ordered: 08/28/2024 [facility] Comment on above: Ordered: 08/28/2024 Hemoglobin A1c/Hemoglobin.total in Blood Hemoglobin A1c Lab Routine Missed menses , unspecified gestational age Ordered: 03/24/2024 [facility] Comment on above: Ordered: 03/24/2024 Hepatitis B virus surface Ag [Presence] in Serum or Plasma by Immunoassay Hepatitis B surface antigen Lab Routine Missed menses , unspecified gestational age Ordered: 03/24/2024 [facility] Comment on above: Ordered: 03/24/2024 Hepatitis C virus Ab [Presence] in Serum or Plasma by Immunoassay Hepatitis C antibody Lab Routine Missed menses , unspecified gestational age Ordered: 03/24/2024 [facility] Comment on above: Ordered: 03/24/2024 HIV-1/HIV-2 antigen/antibody combination immunoassay HIV-1 and HIV-2 antibodies Lab Routine Missed menses , unspecified gestational age Ordered: 03/24/2024 [facility] Comment on above: Ordered: 03/24/2024 Human papilloma viru s DNA [Presence] in Unspecified specimen by Probe with amplification HPV DNA probe, amplified Microbiology Routine Well woman exam with routine gynecological exam Ordered: 05/25/2024 [facility] Comment on above: Ordered: 05/25/2024 Neisseria gonorrhoea e DNA [Presence] in Unspecified specimen by TORRES with probe detection Neisseria gonorrhea DNA probe, direct Lab Routine Exposure to STD Ordered: 05/25/2024 [facility] Comment on above: Ordered: 05/25/2024 Patient Education [facility] Work Phone: Patient referral [facility] Work Phone: Reagin Ab [Presence] in Serum by RPR RPR Lab Routine Missed menses , unspecified gestational age Ordered: 03/24/2024 [facility] Comment on above: Ordered: 03/24/2024 Rubella antibody, IgG Rubella an tibody, IgG Lab Routine Missed menses , unspecified gestational age Ordered: 03/24/2024 [facility] Comment on above: Ordered: 03/24/2024 SURESWAB(R) ADVANCED VAGINITIS PLUS, TMA SURESWAB(R) ADVANCED VAGINITIS PLUS, TMA Pathology and Cytology Routine Vaginal discharge Ordered: 05/25/2024 [facility] Work Phone: Comment on above: Ordered: 05/25/2024 Immunizations Immunization Date Immunization Notes Care Provider Trace luis 06-30-2019 tetanus toxoid, reduced diphtheria toxoid, and acellular pertussis vaccine, adsorbed DO Adin Gan Work Phone: [place] 05-12-2013 influenza, seasonal, injectable, preservative free [facility] 05-12-2013 influenza virus vaccine, unspecified formulation [facility] 10-19-2012 tetanus toxoid, reduced diphtheria toxoid, and acellular pertussis vaccine, adsorbed [facility] 02-25-2012 influenza, seasonal, injectable N[facility] Nurse [facility] 01-09-2011 influenza virus vaccine, live, attenuated, for intranasal use [facility] 02-28-2007 influenza, seasonal, injectable [facility] Nurse [facility] 02-01-2006 influenza, seasonal, injectable [facility] Nurse [facility] NEGATED: Highlighted row has not occurred!07-16-2022 influenza, seasonal, injectable Patient Objection Claribel Mora Other [employer] Other Payers Date Payer Category Payer [facility] er [id number] 2023 Unknown [id number] 2023 Private Health Insurance [id number] 2017 Unknown [id number] 1993 Unknown [id number] 2.16.840.1.022344.3.579.2. 593 1993 Unknown [id number] .16.840.1.028533.3.579.2. 593 1993 Unknown [id number] 2.16.840.1.271732.3.579.2. 593 1993 Unknown [id number] 2.16.840.1.975983.3.579.2. 593 1993 Unknown [id number] 2.16.840.1.803173.3.579.2. 59 1993 Unknown [id number] 2.16.840.1.255281.3.579.2. 593 1993 Unknown [id number] 2.16.840.1.933208.3.579.2. 59 1993 Unknown [id number] 2.16.840.1.553447.3.579.2. 593 1993 Unknown [id number] 2.16840.1.610262.3.579.2. 59 1993 Unknown [id number] 2.16.840.1.230959.3.579.2. 593 1993 Unknown [id number] 2.16.840.1.864115.3.579.2. 59 1993 Unknown [id number] 2.16840.1.385850.3.579.2. 125 1993 Unknown [id number] 2.16840.1.471568.3.579.2. 125 1993 Unknown [id number] 2.16.840.1.531096.3.579.2. 125 1993 Unknown [id number] 2.16.840.1.388759.3.579.2. 1258 1993 Unknown [id number] 2.16.840.1.996858.3.579.2. 125 1993 Unknown [id number] 2.16.840.1.266445.3.579.2. 125 1993 Unknown [id number] 2.16.840.1.552880.3.579.2. 1258 1993 Unknown [id number] 2.840.1.948836.3.579.2. 1258 1993 Unknown [id number] 2.840.1.180036.3.579.2. 1258 1993 Unknown [id number] 2.840.1.002260.3.579.2. 1258 1993 Unknown [id number] 2.840.1.226470.3.579.2. 1258 1993 Unknown [id number] 2.0.1.719670.3.579.2. 1258 1959 Self-pay 1959 Unknown [id number] 1959 Unknown [id number] Medicaid [id number] Medicaid [place] Advantage [id number] Unknown [id number] 2.0.1.514048.3.579.2. 593 Unknown [id number] 2.840.1.146652.3.579.2. 531 Unknown [id number] .840.1.904579.3.579.2. 531 Unknown [id number] .0.1.834617.3.579.2. 531 Unknown [id number] .840.1.308643.3.579.2. 531 Unknown [id number] 2.0.1.127653.3.579.2. 531 Unknown [id number] 2.840.1.279887.3.579.2. 531 Unknown [id number] 2.840.1.156823.3.579.2. 531 Social History Date Type Detail Facility Start: 10-05-2023 Sex Assigned At [employer] Other Start: 04-28-2020 End: 06-29-2024 Tobacco smoking status NHIS Never smoked tobacco (finding) [place] Start: 1995 Sex Assigned At Female [place] Start: 11-25-2023 End: 03-22-2017 Tobacco smoking status NHIS Smoker (finding) [place] Start: 10-05-2023 Tobacco smoking status SCIS Ex-smoker [facility] End: 03-22-2017 History of tobacco use Cigarette Smoker [facility] Start: 10-05-2023 Tobacco use and exposure Smokeless tobacco non-user [facility] Start: 03-24-2024 End: 08-10-2024 Alcoholic beverage intake Ex-drinker (finding) [facility] Start: 10-05-2023 History of Social function [facility] Start: 06-20-2023 Education 21 [facility] Start: 06-20-2023 Tobacco Comment Last smoked : 1- 5 years [facility] Start: 06-20-2023 Alcohol Comment caffeine intake : 1-2 cups per day [facility] Start: 02-04-2024 [place] Start: 07-12-2023 Gender identity Identifies as female gender (finding) [facility] Start: 07-12-2023 Sexual orientation Heterosexual (finding) [facility] Start: 04-05-2024 End: 06-29-2024 Sex Female (finding) [place] Medical Equipment Procedure Code Equipment Code Equipment Origin al Text Equipment Identifier Dates 1 strip by In Vi tro route Daily Use in the morning prior to breakfast, 1 hour after each meal for a total of 4times daily. [id number] Start: 08-28-2024 End: 09-27-2024 1 each by In Vit ro route Daily Use to check FSBS four times daily [id number] Start: 08-28-2024 End: 09-27-2024 Clinical Notes 08-20-2017 [...] to check FSBS. Blood Glucose Monitoring Suppl (D-Real Time Translation Glucometer) w/Device kit 1 kit, Does not [...] 04/07/2023 Constipation 04/07/2023 Chronic GERD 04/07/2023 Goiter ([facility]/HCC) 04/07/2023 Migraine without aura and without [...] nursing note reviewed. Exam conducted with a municipal maintenance worker present. Vitals: Estimated body mass index is [...] Patient given orders and orders sent to [facility] Scheduling and [facility] FBC. Patient was given orders for Transferrin and Ferratin. Patient educated on how to check FSBS and given direct extension to it infrastructure manager for any questions/concerns. Nursing will reach [...] Jaguar Quintero DO documented in this encounter [facility] 07-19-2024 History of Presen t illness Narrative [...] 04/07/2023 Constipation 04/07/2023 Chronic GERD 04/07/2023 Goiter ([facility]/HCC) 04/07/2023 Migraine without aura and without status migrainosus, not intractable ([facility]/HCC) 04/07/2023 Moderately severe depression ([facility]/HCC) 04/07/2023 Hyperemesis gravidarum 05/19/2024 Resolved Ambulatory [...] Diagnosis Date Allergic Depression (CMS/HCC) Drug addiction ([facility]/HCC) Heroin , alcohol sober 2015 to [...] nursing note reviewed. Exam conducted with a municipal maintenance worker present. Vitals: Estimated body mass index is [...] Corby Royal NP documented in this encounter [facility] 06-21-2024 History of Presen t illness Narrative [...] 04/07/2023 Constipation 04/07/2023 Chronic GERD 04/07/2023 Goiter ([facility]/HCC) 04/07/2023 Migraine without aura and without [...] nursing note reviewed. Exam conducted with a municipal maintenance worker present. Vitals: Estimated body mass index is [...] Jaguar Quintero DO documented in this encounter [facility] 05-25-2024 History of Presen t illness Narrative [...] 04/07/2023 Constipation 04/07/2023 Chronic GERD 04/07/2023 Goiter ([facility]/HCC) 04/07/2023 Migraine without aura and without status migrainosus, not intractable ([facility]/HCC) 04/07/2023 Moderately severe depression ([facility]/HCC) 04/07/2023 Hyperemesis gravidarum 05/19/2024 Resolved Ambulatory [...] nursing note reviewed. Exam conducted with a municipal maintenance worker present. Vitals: Estimated body mass index is [...] of: JORGE Coon documented in this encounter [facility] 04-24-2024 History of Presen t illness Narrative [...] 04/07/2023 Constipation 04/07/2023 Chronic GERD 04/07/2023 Goiter ([facility]/HCC) 04/07/2023 Migraine without aura and without status migrainosus, not intractable ([facility]/HCC) 04/07/2023 Moderately severe depression (CMS/HCC) 04/07/2023 [...] or undercooked meat, and stay away from [facility]. Patient has been consulted regarding any further do's and don'ts of . Patient voiced understanding and all questions and concerns were answered. No orders of the defined types were placed in this encounter. Follow Up: Patient is to return in 4 weeks for routine OB appointment. Documented by Pat Jaime MA on behalf of: Jaguar Quintero DO documented in this encounter [facility] 03-24-2024 History of Presen t illness Narrative [...] or undercooked meat, and stay away from [facility]. Patient has also been advised to [...] Chrissy Gomez MA documented in this encounter [facility] 12-02-2022 Evaluation note Encounter Date Diagnosis Assessment [...] time. Nov, Concentration deficit (ICD-10 - R41.840) [employer] Other 04-27-2023 Evaluation note* Encounter Date Diagnosis [...] f/u if no improvement or worsening symptoms. [employer] Other 03-16-2023 Evaluation note* Encounter Date Diagnosis [...] Z86.19) May, Chronic fatigue (ICD-10 - R53.82) [employer] Other 03-06-2023 Evaluation note* Encounter Date Diagnosis Assessment Notes Treatment Notes Treatment Clinical Notes May, SEEMA (generalized anxiety disorder) (ICD-10 - F41.1) She will call if this does not adequately control her symptoms May, Encounter for other contraceptive management (ICD-10 - Z30.8) [employer] Other 02-16-2023 Evaluation note* Encounter Date Diagnosis Assessment Notes Treatment Notes Treatment Clinical Notes Apr, SEEMA (generalized anxiety disorder) (ICD-10 - F41.1) [employer] Other 07-28-2022 NoteOPERATIVE NOTE OPERATION DATE: 10/16/2021 PROCEDURE: Repeat low transverse section. PREOPERATIVE DIAGNOSIS: 1. Intrauterine at 39 weeks. 2. Previous . POSTOPERATIVE DIAGNOSIS: 1. Intrauterine at 39 weeks. 2. Previous . ANESTHESIA: Spinal with Duramorph. SURGEON: Jaguar Quintero D.O. UNDERWATER WELDER: KATHERINE Dao URINE OUTPUT: Yellow and clear. [...] to the Recovery Room in stable condition.[id number] Note DISCHARGE DATE: 10/18/2021 PRIMARY DIAGNOSES: 1. [...] pain free and no longer on narcotics.[id number] History general Narrative - Reported* Type Description Date Medical History Hep C - cured as of August 2017 Medical History Miscarriage 06/2018 Surgical History Pre cancerous cells removed- ou tpatient Derm procedure 2012 Surgical History csection 10/16/2021 [facility] [employer] Other [id number] History general Narrative - Reported* Type Description Date Medical History Hep C - cured as of August 2017 Medical History Miscarriage 06/2018 Surgical History Pre cancerous cells removed- outpatient Derm procedure 2012 Surgical History x 2 10/16/2021 Surgical History tonsillectomy Hospitalization History see above Hospitalization History child x 2 [employer] Other Evaluation noteNo InformationN[employer] Other evaluation noteNo assessment information available [facility] Work Phone: evaluation note* Diagnosis Missed menses [...] episode of care documented in this encounter [facility] HealthcareEvaluation note* Diagnosis Upper respiratory tract infection, unspecified type- Primary Second trimester state, incidental 25 weeks gestation of Vomiting complicating Unspecified vomiting of , unspecified as to episode of care documented in this encounter [facility] HealthcareEvaluation note* Diagnosis Gestational diabetes mellitus (GDM), antepartum, gestational diabetes method of control unspecified- Primary Third trimester state, incidental 31 weeks gestation of Elevated glucose tolerance test Impaired glucose tolerance test Anemia affecting in third trimester documented in this encounter [facility] HealthcareHospital Discharge instructions Additional Instructions Flexeril for needed for muscle spasms You cannot work or drive when taking Flexeril Ice for the next 24 hours and then rotate heat Tylenol or Motrin if needed for pain Take steroids as directed Follow-up with your doctor Gentle range of motion Avoid heavy lifting [facility] Discharge instructions Additional Instructions Follow up with your OB-RESEARCH NUTRITIONIST Return to the ED if you develop worsening symptoms [facility] Work Phone: Summary Purpose Family [...] 1 Concentration defici t (R41.840) Referral Organization [facility] Family Medicin e [place] Referring Provider First Name Claribel Referring Provider Last Name Abby Referring Provider Specialty Family Medi cine Referred Organization [facility] Counseli ng and Recovery [place] Referred Address [address] [place], [place],[address] Referred Provider Specialty Psychologist Referral Priority Routine Additional Source Comments INFORMATION SOURCE (unrecogn ized section and content) DATE CREATED AUTHOR 09/13/2017 [facility] DATE CREATED AUTHOR AUTHOR'S ORGANIZ ATION 05/25/2021 [facility] dical Specialist DATE CREATED AUTHOR AUTHOR'S ORGANIZ ATION 02/27/2022 [facility] DATE CREATED AUTHOR AUTHOR'S ORGANIZ ATION 07/15/2024 [facility] DATE CREATED AUTHOR AUTHOR'S ORGANIZ ATION 08/28/2024 [facility] dical Specialists EPIC REASON FOR VISIT [...] November 25, 2023 End: November 25, 2023 Painter Maintenance Relationship Specialty Start Date End Date Kb Hollis DO [address] [place] [address] PCP - General Family Medicine 04/12/23 Enoch Villalobos DO [address] [place] [address] PCP - NOMMahesh Cody [facility] 06/21/23 Painter Maintenance Relationship Specialty Start Date End Date Kb Hollis DO [address] [place] [address] PCP - General Family Medicine 04/12/23 Enoch Villalobos DO [address] [place] [address] PCP - NOMMahesh Cody [facility] 06/21/23 Team Status: Inactive Member Role Status [...] April 05, 2024 End: April 05, 2024 Painter Maintenance Relationship Specialty Start Date End Date Kb Hollis DO [address] [place] [address] PCP - General Family Medicine 04/12/23 Enoch Villalobos DO [address] [place] [address] PCP - [facility] [place] [facility] 06/21/23 5 Team Status: Inactive Member Role [...] May 19, 2024 End: May 19, 2024 Painter Maintenance Relationship Specialty Start Date End Date Kb Hollis DO [address] [place] [address] PCP - General Family Medicine 04/12/23 Enoch Villalobos DO [address] [place] [address] PCP - [facility] [place] [facility] 06/21/23 5 Painter Maintenance Relationship Specialty Start Date End Date Kb Hollis DO [address] [place] [address] PCP - General Family Medicine 04/12/23 Enoch Villalobos DO [address] [place] [address] PCP - [facility] [place] [facility]IG[facility] CONSULTANT 06/21/23 5 Painter Maintenance Relationship Specialty Start Date End Date Kb Hollis DO [address] [place] [address] PCP - General Family Medicine 04/12/23 Enoch Villalobos DO [address] [place] [address] PCP - NOMMahesh Cody [facility] 06/21/23 5 Team Status: Inactive Member Role Status Dates Yaz Hollis DO Primary Care Provider Active Start: June 07, 2024 End: June 07, 2024 Mateo Navas DO Emergency Provider Active Sta rt: June 07, 2024 End: June 07, 2024 Painter Maintenance Relationship Specialty Start Date End Date Kb Hollis DO [address] [place] [address] PCP - General Family Medicine 04/12/23 Enoch Villalobos DO [address] [place] [address] PCP - NOMMahesh Cody [facility] 06/21/23 5 Painter Maintenance Relationship Specialty Start Date End Date Kb Hollis DO [address] [place] [address] PCP - General Family Medicine 04/12/23 Enoch Villalobos DO [address] [place] [address] PCP - NOMMahesh Cody ELIGIBILITY CONSULTANT 06/21/23 5 Team Status: Inactive Member Role Status Dates Yaz Hollis DO Primary Care Provider Active Start: June 29, 2024 End: June 29, 2024 Parminder Powell PA-C Emergency Provider Active Start: June 29, 2024 End: June 29, 2024 Painter Maintenance Relationship Specialty Start Date End Date Kb Hollis DO [address] [place] [address] PCP - General Family Medicine 04/12/23 Enoch Villalobos DO [address] [place] [address] PCP - [facility] [place] [facility] 06/21/232 5 Painter Maintenance Relationship Specialty Start Date End Date Kb Hollis DO [address] [place] [address] PCP - General Family Medicine 04/12/23 Enoch Villalobos DO [address] [place] [address] PCP - [facility] [place] [facility] 06/21/23 5 Painter Maintenance Relationship Specialty Start Date End Date Kb Hollis DO [address] [place] [address] PCP - General Family Medicine 04/12/23 Enoch Villalobos, DO [address] [place] [address] PCP - [facility] [place] [facility] 06/21/23 5 Painter Maintenance Relationship Specialty Start Date End Date Kb Hollis DO [address] [place] [address] PCP - General Family Medicine 04/12/23 Enoch Villalobos, [address] [place] [address] PCP - NOMMahesh Cody [facility] 06/21/23 5 Goals (unrecognized section and [...] BE BASED ON THE PRIMARY CLINICAL RECORDS. [facility]. provides no warranty or guarantee of the accuracy or completeness of information in this document.
--- NOTE | 2024-09-09 07:49 | ED_ITS ---
HPI HPI - General Adult General Chief complaint: Nausea/Vomiting/Diarrhea Stated complaint: throwing up Time Seen by Provider: 09/09/24 07:31 Source: patient Mode of arrival: Wheelchair History of Present Illness HPI narrative: 29-year-old female to the emergency department with chief complaint of vomiting. Patient reports she has been vomiting for the last 24 hours. She reports this has happened throughout her . She denies any abdominal pain or diarrhea. She is currently 33 weeks . Her OB is Dr. Quintero. She denies any fever, sweats, chills. No vaginal bleeding or discharge. Patient reports she was seen at the [facility] yesterday and was given a dose of Phenergan which made her feel much improved. She is here today because she continues to vomit and would like her baby checked on. Related Data Home Medications ?Medication ?Instructions ?Recorded ?Confirmed citalopram 20 mg tablet mg 03/23/24 citalopram 40 mg tablet mg 03/23/24 Allergies Allergy/AdvReac Type Severity Reaction Status Date / Time codeine Allergy Unknown Verified 03/23/24 16:20 Penicillins Allergy Unknown Verified 08/10/24 15:24 sulfamethoxazole (From Allergy Unknown Verified 08/10/24 15:24 Bactrim) trimethoprim (From Bactrim) Allergy Unknown Verified 08/10/24 15:24 Opioid HPI Opioid Management Most Recent Opioid Data: Urine Cannabinoids, (.) Positive A 04/03/24, 11:52 Ur Phencyclidine Scrn, (NEGATIVE) Negative , 11:52 Review of Systems ROS Status of ROS 10 or more systems reviewed and unremark able except as noted in history and below PFSH PFSH Social History Little interest or pleasure in doing things: not at all Feeling down, depressed, or hopeless: not at all Exam Narrative Exam Narrative: VITALS: I have reviewed the triage vital signs. GENERAL: Well developed, well appearing adult in no acute distress. NEURO: Alert and oriented. Moves all extremities. Face is symmetric and expressive. EYES: PERRL. No scleral icterus or conjunctival injection. No discharge. HENT: Normocephalic, atraumatic. Hearing is grossly intact. Nares grossly patent and without discharge. Mucous membranes moist. NECK: No JVD. Patient moves neck without restriction. CARDIO: Rhythm regular. Normal rate. No murmur, rub, or gallop. Pulses equal bilaterally in the upper and lower extremity. No lower extremity edema. PULM: Lungs clear to auscultation in all alexandre. No wheezes, rales, or rhonchi. No conversational dyspnea. No splinting, stridor, or accessory muscle use. GI/: Abdomen is soft and non-tender. Gravid uterus. Normoactive bowel sounds. EXTREMITIES: Symmetric muscle bulk. No joint swelling. No clubbing, cyanosis, or deformity. SKIN: Warm and dry. Normal turgor. No rash or lesions appreciated. PSYCH: Mood, affect, and interaction is appropriate to the setting. Constitutional Vital Signs, click to edit/add: Last Vital Signs Temp 98.4 F 09/09/24 07:34 Pulse 85 09/09/24 07:34 Resp 20 09/09/24 07:34 BP 127/79 09/09/24 07:34 Pulse Ox 99 09/09/24 07:34 O2 Del Method Room Air 09/09/24 07:34 Course Vital Signs Vital signs: Vital Signs Temperature 98.4 F 09/09/24 07:34 Pulse Rate 85 09/09/24 07:34 Respiratory Rate 20 09/09/24 07:34 Blood Pressure 127/79 09/09/24 07:34 Pulse Oximetry 99 09/09/24 07:34 Oxygen Delivery Method Room Air 09/09/24 07:34 Temperature 98.4 F 09/09/24 07:34 Pulse Rate 85 09/09/24 07:34 Respiratory Rate 20 09/09/24 07:34 Blood Pressure 127/79 09/09/24 07:34 Pulse Oximetry 99 09/09/24 07:34 Oxygen Delivery Method Room Air 09/09/24 07:34 Medical Decision Making [facility] Narrative Medical decision making narrative: Well-appearing 29-year-old female to the emergency department with chief complaint of nausea and vomiting. Vital stable, the patient is afebrile. Patient reports she was seen yesterday and responded well to Phenergan however was not given a prescription. She also wants to make sure her baby is okay. Basic labs, IV fluids, Phenergan ordered. Her abdominal examination is benign. Lab work reviewed and noted. She is mildly hypokalemic. She has significant ketones in the urine. Electrolytes otherwise within normal limits. Liver function test and lipase are without acute abnormalities. Patient initially felt better after Phenergan however vomiting resumed. Will begin IV replacement of her potassium. Fluids will be ordered. Case discussed with Dr. Quintero. Plan for admission to [facility]. Medical Records Medical records reviewed: Yes I reviewed the patient's medical records Lab Data Lab results reviewed: Yes I reviewed the patient's lab results Labs: Lab Results 09/09/24 09/09/24 Range/Units 07:54 09:13 WBC 10.4 (4.0-11.0) 10^3/uL RBC 3.42 L (4.20-5.40) 10^6/uL Hgb 8.6 L (12.0-16.0) g/dL Hct 26.9 L (36.0-48.0) % MCV 78.7 L (81.0-99.0) fL MCH 25.1 L (26.7-34.0) pg MCHC 32.0 (29.9-35.2) g/dL RDW 15.4 H (11.0-15.0) % Plt Count 189 (150-450) 10^3/uL MPV 12.5 (9.5-13.5) fL Neut % (Auto) 78.8 H (43.0-75.0) % Lymph % (Auto) 13.3 L (20.5-60.0) % [place] % (Auto) 6.6 (1.7-12.0) % Eos % (Auto) 0.1 L (0.9-7.0) % Baso % (Auto) 0.1 L (0.2-2.0) % Neut # (Auto) 8.2 H (1.4-6.5) 10^3/uL Lymph # (Auto) 1.4 (1.2-3.8) 10^3/uL [place] # (Auto) 0.7 (0.3-0.8) 10^3/uL Eos # (Auto) 0.0 (0.0-0.7) 10^3/uL Baso # (Auto) 0.0 (0.0-0.1) 10^3/uL Abs Immat Gran (auto) 0.11 H (0.00-0.03) 10^3/uL Imm/Tot Granulo (auto) 1.1 H (0.0-0.5) % Sodium 138 (136-145) mmol/L Potassium 3.3 L (3.5-5.1) mmol/L Chloride 102 (98-107) mmol/L Carbon Dioxide 20.3 L (21.0-32.0) mmol/L Anion Gap 19.0 BUN 8.0 (7.0-18.0) mg/dL Creatinine 0.35 L (0.55-1.02) mg/dL Est GFR ( Amer) >60 (>=60 mL/min/1.73m^2) Est GFR (Non-Af Amer) >60 (>=60 mL/min/1.73m^2) BUN/Creatinine Ratio 22.9 Glucose 113 H (74-106) mg/dL Calcium 8.1 L (8.5-10.1) mg/dL Total Bilirubin 0.7 (0.2-1.0) mg/dL AST 11 L (15-37) U/L ALT 14 (14-59) U/L Alkaline Phosphatase 79 (46-116) U/L Total Protein 6.3 L (6.4-8.2) g/dL Albumin 2.5 L (3.4-5.0) g/dL Globulin 3.8 g/dL Albumin/Globulin Ratio 0.7 Lipase 31.0 (16.0-77.0) U/L Urine Color Lt. yellow (YELLOW) Urine Clarity Clear (CLEAR) Urine pH 6.0 (5.0-9.0) Ur Specific [place] >=1.030 A (1.005-1.025) Urine Protein Trace (NEG/TRACE) mg/dL Urine Glucose (UA) Negative (NEGATIVE) mg/dL Urine Ketones >=80 A (NEGATIVE) mg/dL Urine Occult Blood Negative (NEGATIVE) Urine Nitrite Negative (NEGATIVE) Urine Bilirubin Negative (NEGATIVE) Urine Urobilinogen 0.2 (0.2-1.0) EU/dL Ur Leukocyte Esterase Trace A (NEGATIVE) Urine RBC 0-2 (0-2) #/HPF Urine WBC 2-5 A (NONE SEEN) #/HPF Ur Squamous Epith Cells Moderate A (NONE/RARE) #/LPF Urine Crystals None seen (None Seen) #/HPF Urine Bacteria None seen (NONE SEEN) #/HPF Urine Casts None seen (NONE SEEN) #/LPF Urine Mucus Small A (NONE SEEN) Ur Culture Indicated? No Discharge Plan Discharge Chief Complaint: Nausea/Vomiting/Diarrhea Clinical Impression: Intractable nausea and vomiting, Acute hypokalemia, Ketosis, Currently Patient Disposition: Admitted to [facility], OBS Time of Disposition Decision: 10:18 Condition: Good Mode of Transportation: Private Vehicle Prescriptions / Home Meds: No Action citalopram 40 mg tablet citalopram 20 mg tablet Print Language: Luxembourgish Referrals: Jimy NGUYEN [Primary Care Provider, Family Practice] - 1 week
[2024-09-09 08:02] LABS: Basophils Percent Auto 0.1 % (0.2-2.0); Eosinophils Percent Auto 0.1 % (0.9-7.0); Hematocrit 26.9 % (36.0-48.0); Hemoglobin 8.6 g/dL (12.0-16.0); Immature Granulocytes Abs Auto 0.11 10^3/uL (0.00-0.03); Immature Granulocytes Pct Auto 1.1 % (0.0-0.5); Lymphocytes Absolute Auto 1.4 10^3/uL (1.2-3.8); Lymphocytes Percent Auto 13.3 % (20.5-60.0); Mean Corpuscular Hemoglobin 25.1 pg (26.7-34.0); Mean Corpuscular Volume 78.7 fL (81.0-99.0); Mean Platelet Volume 12.5 fL (9.5-13.5); Monocytes Absolute Auto 0.7 10^3/uL (0.3-0.8); Monocytes Percent Auto 6.6 % (1.7-12.0); Neutrophils Absolute Auto 8.2 10^3/uL (1.4-6.5); Neutrophils Percent Auto 78.8 % (43.0-75.0); Platelet Count 189 10^3/uL (150-450); Red Blood Count 3.42 10^6/uL (4.20-5.40); Red Cell Distribution Width 15.4 % (11.0-15.0); White Blood Count 10.4 10^3/uL (4.0-11.0)
[2024-09-09] MEDS: PROMETHAZINE HCL 12.5 MG in 0.9 % SODIUM CHLORIDE 50 ML 202 MG IV ×3 (08:04→16:50)
[2024-09-09] MEDS: 0.9 % SODIUM CHLORIDE 1,000 ML 999 ML IV (08:05)
[2024-09-09 08:16] LABS: Alanine Aminotransferase 14 U/L (14-59); Albumin Globulin Ratio 0.7; Albumin Level 2.5 g/dL (3.4-5.0); Alkaline Phosphatase 79 U/L (46-116); Aspartate Amino Transferase 11 U/L (15-37); BUN Creatinine Ratio 22.9; Bilirubin Total 0.7 mg/dL (0.2-1.0); Calcium 8.1 mg/dL (8.5-10.1); Carbon Dioxide 20.3 mmol/L (21.0-32.0); Chloride 102 mmol/L (98-107); Estimated GFR (African America >60 (>=60 mL/min/1.73m^2); Estimated GFR (Non-African Ame >60 (>=60 mL/min/1.73m^2); Globulin 3.8 g/dL; Glucose 113 mg/dL (74-106); Potassium 3.3 mmol/L (3.5-5.1); Sodium 138 mmol/L (136-145); Total Protein 6.3 g/dL (6.4-8.2)
[2024-09-09] MEDS: POTASSIUM CHLORIDE 10 MEQ ER TABLET 40 MEQ PO (08:58)
[2024-09-09 09:22] LABS: Bilirubin Urine NEGATIVE (NEGATIVE); Blood Urine NEGATIVE (NEGATIVE); Clarity Urine CLEAR (CLEAR); Color Urine LT. YELLOW (YELLOW); Glucose Urine UA NEGATIVE (NEGATIVE); Ketones Urine >=80 mg/dL (NEGATIVE); Leukocyte Esterase Urine TRACE (NEGATIVE); Nitrite Urine NEGATIVE (NEGATIVE); Protein Urine TRACE mg/dL (NEG/TRACE); Specific Gravity Urine >=1.030 (1.005-1.025); Urobilinogen Urine 0.2 EU/dL (0.2-1.0)
[2024-09-09 09:35] LABS: Bacteria Urine NONE SEEN #/HPF (NONE SEEN); Crystals Seen? None Seen #/HPF (None Seen); Mucus Urine SMALL (NONE SEEN); RBC Urine 0-2 #/HPF (0-2); Squamous Epithelial Cell Urine MODERATE #/LPF (NONE/RARE)
[2024-09-09 09:36] LABS: Cast Seen? NONE SEEN #/LPF (NONE SEEN); Urine Culture Indicated NO
[2024-09-09] MEDS: POTASSIUM CHLORIDE 20 MEQ in 0.9 % SODIUM CHLORIDE 250 ML 130 MEQ IV (10:40)
--- OUTSIDE RECORDS SUMMARY | 2024-09-09 10:46 | XMS_ITS | CCD ---
Author Organization [facility] Care Team Providers Care Nurse Technician Name Role Phone PRIYANKA, CHRISTOPHER Unavailable Unavailable [...] Primary Care Provider CHARLEEN Genao Emergency Provider [phone] Kb Hollis DO Primary Care Provider Enoch Villalobos DO Unavailable [phone] Yaz Hollis DO Primary Care Provider Surjit Stanton DO Emergency Provider Unavai Parminder Sorto PA-C Emergency Provider Enoch Villalobos DO Unavailable [phone] Glenn Abdullahi APRN Emergency Provider Yaz Hollis DO Primary Care Provider Parminder Powell PA-C Emergency Provider Glenn Abdullahi APRN Emergency Provider Mateo Navas DO Emergency Provider Yaz Hollis Primary Care Unavailable Surjit Stanton Admitting Unavailable Surjit Stanton Attending Unavailable Yaz Hollis Primary Care Unavailable Parminder Powell Admitting Unavailable Parminder Powell Attending Unavailable Yaz Hollis Primary Care Unavailable Kaylen, Glenn Admitting Unavailable Glenn Abdullahi Attending Unavailable aYz Hollis Primary Care Unavailable Kaylen, Glenn Admitting [...] source) black walnut pollen extract Drug Allergy [facility] Repository (8 sources) Codeine Drug Allergy 04-28-19 21 Hives [facility] Repository (8 sources) Penicillins Drug allergy (disorder) 04-28-19 21 [facility] Repository (1 source) Plasmin Drug Allergy 10-17-19 22 [facility] Repository (1 source) Sulfamethoxazole / Trimethoprim Drug Allergy 10-17-19 22 [facility] Repository (1 source) Sulfonamides (Antibiotic) Drug allergy (disorder) 10-17-19 22 [facility] Repository (20 sources) Codeine Drug Allergy 04-07-19 24 hives, Unknown [facility] Work Phone: (9 sources) Penicillin Drug Allergy [facility] Other (9 sources) Sulfamethoxazole / Trimethoprim Drug Allergy [facility] Other (13 sources) Sulfamethoxazole; Translations: [sulfamethoxazole] Drug Allergy 04-28-19 21 Swelling of Lip/Tongue/Thr oat, Swelling of Lip/Tongue/Thr oat, [facility] (13 sources) Trimethoprim; Translations: [trimethoprim] Drug Allergy 04-28-19 21 Swelling of Lip/Tongue/Thr oat, Swelling of Lip/Tongue/Thr oat, hives [facility] (18 sources) penicillAMINE Drug Allergy 04-07-19 Unknown [facility] (18 sources) Penicillin G Drug Allergy 04-12-19 [facility] Work Phone: (18 sources) Sulfamethoxazole / Trimethoprim Drug Allergy 04-12-19 [facility] (18 sources) Sulfonamides (Antibiotic) Drug Allergy 04-07-19 Unknown [facility] (18 sources) SUMAtriptan Drug Allergy 04-07-19 [facility] (1 source) Codeine Drug Allergy 06-30-19 [facility] Repository (1 source) Penicillins Drug allergy (disorder) 06-30-19 [facility] Repository (5 sources) Penicillins Drug Allergy 11-25-19 [facility] Medications Current Medications Medication Drug Class(es) Dates [...] (D-Care Glucometer) w/Device kit Indications: Third trimester ([facility]) , Gestational diabetes mellitus (GDM), antepartum, gestational diabetes method of control unspecified ([facility]) , Elevated glucose tolerance test 1 kit [...] Pad) 70 % pads Indications: Third trimester ([facility]) , Gestational diabetes mellitus (GDM), antepartum, gestational diabetes method of control unspecified ([facility]) , Elevated glucose tolerance test Apply 1 [...] MG tablet Indications: Nausea and vomiting in ([facility]) Take 1 tablet (10 mg) by mouth [...] MG tablet Indications: Nausea and vomiting during ([facility]) Take 1 tablet (4 mg) by mouth every 6 (six) hours 30 tablet 2 08/10/2024 09/09/2024 Active Start: 07-06-2024 take 1 tablet by deshawn th every eight hours for nausea ondansetron ODT (Zofran-ODT) 4 MG disintegrating tablet Indications: Nausea and vomiting in ([facility]) Take 1 tablet (4 mg) by mouth [...] (180 Fe) MG capsule Indications: Third trimester ([facility]) , Anemia affecting in third trimester ([facility]) Take 1 capsule (391.3 mg) by mouth Daily 30 capsule 6 08/28/2024 09/27/2024 Active promethazine hydrochloride 12.5 mg oral tablet (17 sources) Phenothiazine Start: 06-21-2024 End: 09-19-2024 take 1 tablet by mouth every six hours for nausea promethazine (Phenergan) 12.5 MG tablet Indications: Nausea and vomiting in ([facility]) Take 1 tablet (12.5 mg) by mouth [...] 15, 2017 1:00am May 16, 2017 1:07am Jr-Xc-Cjoa-Fa-Herb al Cmplx#190 (Vitamin D3 Complete) 18 mg iron-800 mcg-150 mg Tablet (7 sources) Start: 05-09-2017 End: 06-05-2017 Th-Ea-Bvdo-Fa-Her bal Cmplx#190 (Vitamin D3 Complete) 18 mg iron-800 mcg-150 mg Tablet Discontinued TABLET May 09, 2017 12:00am June 05, 2017 12:56pm Start: 05-09-2017 End: 06-05-2017 Bl-Nv-Ewtb-Fa-Herbal Cmplx#1 90 (Vitamin D3 Complete) 18 mg [...] OB BPP W NON-STRESS on 09-08-2024 [place] [address] Ultrasound Report Signed Patient: NICOLE FARRIS MR#: [id number] : 1995 Acct:[id number] Age/Sex: 29 / F ADM Date: Loc: [facility] 250-[address]: Jaguar Quintero D.O. Ordering Physician: Jaguar Quintero D.O. Date of Service: 09/07/24 Procedure(s): US OB BPP w non-stress Accession Number(s): [id number] cc: Jaguar Quintero D.O.; Jimy HOLLIS [place] [address] Patient Name: NICOLE FARRIS MRN: [facility]:[id number] date: 1995 Sex: F Assigned Patient Location: [facility] Current Patient Location: [facility] Accession/Order Number: [id number] Exam Date: 09/08/2024 08:20 Report Date: 09/08/2024 [...] Barbosa M.D. 09/08/2024 8:22 AM Dictation Location: [place] [address] Electronically authenticated by: [id number] Y Date: 09/08/2024 08:22 Dictated By: Priscila Barbosa M.D. 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 Ordering Physician: Jaguar Quintero D.O. Date of Service: 09/07/24 Procedure(s): US OB BPP w non-stress Accession Number(s): [id number] cc: Jaguar Quintero D.O.; Jimy HOLLIS [place] [id number] Patient Name: NICOLE FARRIS MRN: [facility]:[id number] date: 1995 Sex: F Assigned Patient Location: [facility] Current Patient Location: [facility] Accession/Order Number: [id number] Exam Date: 09/08/2024 08:20 Report Date: 09/08/2024 [...] Barbosa M.D. 09/08/2024 8:22 AM Dictation Location: [place] [address] Electronically authenticated by: [id number] Y Date: 09/08/2024 08:22 Dictated By: Priscila Barbosa M.D. 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: [facility] Radiology Study observation (narrative) [facility] US OB BPP W NON-STRESS Ordered By: Radiologist Radiology on 09-08-2024 [facility] Work Phone: US OB GROWTHon 09-06-2024 [place] [address] Ultrasound Report Signed Patient: NICOLE FARRIS MR#: [id number] : 1995 Acct:[id number] Age/Sex: 29 / F ADM Date: 09/05/24 Loc: US Attending Dr: Corby Royal Ordering Physician: Corby Royal Date of Service: 09/05/24 Procedure(s): US OB growth Accession Number(s): [id number] cc: Corby Royal; Jimy HOLLIS [place] [id number] Patient Name: NICOLE FARRIS MRN: [id number] date: 1995 Sex: F Assigned Patient Location: [facility] Current Patient Location: [facility] Accession/Order Number: [id number] Exam Date: 09/06/2024 07:48 Report Date: 09/06/2024 [...] Hurtado M.D. 09/06/2024 7:50 AM Dictation Location: [place] [address] Electronically authenticated by: [id number] Y Date: 09/06/2024 07:50 Dictated By: Mikie Hurtado D.O. 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: [facility] Radiology, Radiologparth cifuentes MD - 09/06/2024 [place] [address] Ultrasound Report Signed Patient: NICOLE FARRIS MR#: [id number] : 1995 Acct:[id number] Age/Sex: 29 / F ADM Date: 09/05/24 Loc: US Attending Dr: Corby Royal Ordering Physician: Corby Royal Date of Service: 09/05/24 Procedure(s): US OB growth Accession Number(s): [id number] cc: Corby Royal; Jimy HOLLIS [place] [id number] Patient Name: NICOLE FARRIS MRN: [facility]:[id number] date: 1995 Sex: F Assigned Patient Location: [facility] Current Patient Location: [facility] Accession/Order Number: [id number] Exam Date: 09/06/2024 07:48 Report Date: 09/06/2024 [...] Hurtado M.D. 09/06/2024 7:50 AM Dictation Location: [place] [address] Electronically authenticated by: [id number] Y Date: 09/06/2024 07:50 Dictated By: Mikie Hurtado D.O. Signed By: 09/06/24 0753 DD/ 9 TD/TT: Heavy Truck Mechanic: [facility] Radiology Study observation (narrative) [facility] OB GROWTHOrdered By: Radi ologist Radiology on 09-06-2024 [facility] Work Phone: Urinalysis macro (dipstick) panel (U)on 08-28-2024 Bilirubin, UA Negative Negative - 4(70) +++ mg/dL [facility] Blood, UA Negative Negative - 50 Josiah/mcL [facility] Clarity, UA Clear [facility] Color, UA Felisha [facility] Glucose, UA Negative Negative - 2000(110) ++++ mg/dL [facility] Interpretation and review of laboratory results Abnormal [facility] Ketones, UA Positive Negative - 160(16) ++++ mg/dL [facility] Comment on above: 15 Leukocytes, UA Positive Negative - 500+++ Archana/mcL [facility] Comment on above: small Nitrite, UA Negative Negative - Positive [facility] pH, UA 6.5 5 - 9 [facility] Protein, UA Trace Negative - 2000(20) ++++ mg/dL [facility] Spec Grav, UA 1.025 1 - 1.03 [facility] Urobilinogen, UA 1.0 0.2 - 12 mg/dL [facility] US OB LIMITED 1+ FETUSESon 0 [...] II, MD, PHD at 23-Jul-2024 08:53:16 PM [facility] Normal Not Available Comment on above: Order Comment: US OB PLACENTA W US OB TRANSVAGINAL Estimated Date of Delivery: 10/27/24 Gestational Age as of 06/21/2024: 21w5d Urinalysis macro (dipstick) panel (U)on 07-19-2024 Bilirubin, UA Negative Negative - 4(70) +++ mg/dL [facility] Blood, UA Negative Negative - 50 Josiah/mcL [facility] Clarity, UA Clear [facility] Color, UA Yellow [facility] Glucose, UA Negative Negative - 2000(110) ++++ mg/dL [facility] Interpretation and review of laboratory results Abnormal [facility] Ketones, UA Negative Negative - 160(16) ++++ mg/dL [facility] Leukocytes, UA Trace Negative - 500+++ Archana/mcL [facility] Nitrite, UA Negative Negative - Positive [facility] pH, UA 7 5 - 9 [facility] Protein, UA Negative Negative - 2000(20) ++++ mg/dL [facility] Spec Grav, UA 1.02 1 - 1.03 [facility] Urobilinogen, UA 0.2 0.2 - 12 mg/dL [facility] Alanine aminotransferase [En zymatic activity/volume] in Serum or PlasmaOrdered By: Parminder Powell on 06-29-2024 ALT [Catalytic activity/Vol] Alanine aminotransferase [Enzymatic activity/volume] in Serum or Plasma 7-52 [facility] Albumin [Mass/volume] in Ser um or Plasma by Bromocresol green (BCG) dye binding methoOrdered By: Parminder Powell on 06-29-2024 Albumin BCG dye [Mass/Vol] Albumin [Mass/volume] in Serum or Plasma by Bromocresol green (BCG) dye binding metho 3.5-5.7 [facility] Alkaline phosphatase [Enzyma tic activity/volume] in Serum or PlasmaOrdered By: Parminder Powell on 06-29-2024 ALP [Catalytic activity/Vol] Alkaline phosphatase [Enzymatic activity/volume] in Serum or Plasma 34-104 [facility] Amphetamine Screen Ql (U)Ord ered By: Parminder Powell on 06-29-2024 Amphetamines Ql (U) Amphetamines screen Negativ e [facility] Appearance of UrineOrdered B y: Parminder Powell on 06-29-2024 Appearance (U) Urine appearance Abnormal Clear [facility] Aspartate aminotransferase [ Enzymatic activity/volume] in Serum or PlasmaOrdered By: Parminder Powell on 06-29-2024 AST [Catalytic activity/Vol] Aspartate aminotransferase [Enzymatic activity/volume] in Serum or Plasma Low 13-39 [facility] Bacteria [Presence] in Urine by AutomatedOrdered By: Parminder Powell on 06-29-2024 Bacteria Auto Ql (U) Bacteria [Presence] in Urine by Automated None Seen [facility] Barbiturates [Presence] in U rine by Screen methodOrdered By: Parminder Powell on 06-29-2024 Barbiturates Screen Ql (U) Barbiturates [Presence] in Urine by Screen method Negative [facility] Basophils Auto (Bld) [#/Vol] Ordered By: Parminder Powell on 06-29-2024 Basophils (Bld) [#/Vol] Automated basophil count 0.0-0.2 [facility] Basophils/100 WBC Auto (Bld) Ordered By: Parminder Powell on 06-29-2024 Basophils/100 WBC (Bld) Automated basophil % . [facility] Benzodiazepines Screen Ql (U )Ordered By: Parminder Powell on 06-29-2024 Benzodiazepines Ql (U) Benzodiazepines [Presence] in Urine by Screen method Negative [facility] Benzoylecgonine [Presence] i n Urine by Screen methodOrdered By: Parminder Powell on 06-29-2024 Benzoylecgonine Screen Ql (U) Benzoylecgonine [Presence] in Urine by Screen method Negative [facility] Bilirubin Test strip Ql (U)O rdered By: Parminder Powell on 06-29-2024 Bilirubin Ql (U) Bilirubin.total [Pre sence] in Urine by Test strip Negative [facility] Bilirubin.total [Mass/volume ] in Serum or PlasmaOrdered By: Parminder Powell on 06-29-2024 Bilirubin [Mass/Vol] Bilirubin.total [Mass/volume] in Serum or Plasma 0.3-1.0 [facility] Calcium [Mass/volume] in Ser um or PlasmaOrdered By: Parminder Powell on 06-29-2024 Calcium [Mass/Vol] Calcium [Mass/volume ] in Serum or Plasma 8.6-10.3 [facility] Cannabinoids [Presence] in U rine by Screen methodOrdered By: Parminder Powell on 06-29-2024 Cannabinoids Screen Ql (U) Cannabinoids [Presence] in Urine by Screen method High Negative [facility] Comment on above: These are unconfirme d [...] [Moles/volume] in Serum or Plasma Low 21.0-31.0 [facility] Chloride [Moles/volume] in S mayte or PlasmaOrdered By: Parminder Powell on 06-29-2024 Chloride [Moles/Vol] Chloride [Moles/vol ume] in Serum or Plasma 98-107 [facility] Color Auto (U)Ordered By: Eduar Powell on 06-29-2024 Color (U) Color of Urine by Auto Yellow [facility] Complete Blood Count Auto Di ffon 06-29-2024 Basophils (Bld) [#/Vol] 0.0 10*3/uL Normal 0.0-0.2 [facility] Comment on above: Result Comment: PERF ORMED BY: [place] [address] PATHOLOGIST PATIENT EXPERIENCE COORDINATOR SARAH ANDREWS M.D. Performed By: #### H EPATIC, CBC, BMP, LIPASE #### [facility] [address] Basophils/100 WBC (Bld) 0.3 % Normal . [facility] Comment on above: Performed By: #### H EPATIC, CBC, BMP, LIPASE #### [address] Eosinophils (Bld) [#/Vol] 0.0 10*3/uL Normal 0.0-0.45 [facility] Comment on above: Performed By: #### H EPATIC, CBC, BMP, LIPASE #### [address] Eosinophils/100 WBC (Bld) 0.0 % Normal . [facility] Comment on above: Performed By: #### H EPATIC, CBC, BMP, LIPASE #### [address] Erythrocyte distribution width (RBC) [Ratio] 14.2 % Normal 11.9-15.3 [facility] Comment on above: Performed By: #### H EPATIC, CBC, BMP, LIPASE #### [address] Hematocrit (Bld) [Volume fraction] 31.2 % Low 34.0-46.4 [facility] Comment on above: Performed By: #### H EPATIC, CBC, BMP, LIPASE #### [address] Hemoglobin (Bld) [Mass/Vol] 10.3 g/dL Low 11.8-15.4 [facility] Comment on above: Performed By: #### H EPATIC, CBC, BMP, LIPASE #### [address] Lymphocytes (Bld) [#/Vol] 0.7 10*3/uL Low 1.00-4.8 [facility] Comment on above: Performed By: #### H EPATIC, CBC, BMP, LIPASE #### [address] Lymphocytes/100 WBC (Bld) 6.0 % Normal . [facility] Comment on above: Performed By: #### H EPATIC, CBC, BMP, LIPASE #### [address] MCH (RBC) [Entitic mass] 27.9 pg Normal 24.7-34.3 [facility] Comment on above: Performed By: #### H EPATIC, CBC, BMP, LIPASE #### [address] MCV (RBC) [Entitic vol] 84.8 fL Normal 80-100 [facility] Comment on above: Performed By: #### H EPATIC, CBC, BMP, LIPASE #### [address] Mean Corpuscular HGB Conc 32.9 g/dL Normal 32.0-35.0 [facility] Comment on above: Performed By: #### H EPATIC, CBC, BMP, LIPASE #### [address] Monocytes (Bld) [#/Vol] 0.2 10*3/uL Normal 0.0-0.8 [facility] Comment on above: Performed By: #### H EPATIC, CBC, BMP, LIPASE #### [address] Monocytes/100 WBC (Bld) 20.01 % High 0.00-20.00 [facility] Comment on above: Result Comment: For adults in ED, MDW > 20.0 may be associated with a higher risk of sepsis during the first 12 hrs of hospital admission Performed By: #### H EPATIC, CBC, BMP, LIPASE #### [address] Monocytes/100 WBC (Bld) 1.9 % Normal . [facility] Comment on above: Performed By: #### H EPATIC, CBC, BMP, LIPASE #### [address] Neutrophils (Bld) [#/Vol] 10.5 10*3/uL High 1.8-7.7 [facility] Comment on above: Performed By: #### H EPATIC, CBC, BMP, LIPASE #### [address] Neutrophils/100 WBC (Bld) 91.8 % Normal . [facility] Comment on above: Performed By: #### H EPATIC, CBC, BMP, LIPASE #### [address] NRBC% 0.1 /100{WBC} Normal 0-0.5 [facility] Comment on above: Performed By: #### H EPATIC, CBC, BMP, LIPASE #### [address] Platelet mean volume (Bld) [Entitic vol] 11.0 fL High 6.3-10.7 [facility] Comment on above: Performed By: #### H EPATIC, CBC, BMP, LIPASE #### [address] Platelets (Bld) [#/Vol] 206 10*3/uL Normal 150-450 [facility] Comment on above: Performed By: #### H EPATIC, CBC, BMP, LIPASE #### [address] RBC (Bld) [#/Vol] 3.69 10*6/uL Normal 3.60-5.[address] [facility] Comment on above: Performed By: #### H EPATIC, CBC, BMP, LIPASE #### [address] WBC (Bld) [#/Vol] 11.4 10*3/uL Normal 3.8-11.[address] [facility] Comment on above: Performed By: #### H EPATIC, CBC, BMP, LIPASE #### [address] Comprehensive Metabolic Pane blanquita 06-29-2024 Albumin [Mass/Vol] 3.8 g/dL Normal 3.5-5.7 [facility] Comment on above: Performed By: #### H EPATIC, CBC, BMP, LIPASE #### [address] Albumin/Globulin [Mass ratio] 1.0 {ratio} Normal [facility] Comment on above: Performed By: #### H EPATIC, CBC, BMP, LIPASE #### [address] ALP [Catalytic activity/Vol] 53 U/L Normal 34-104 [facility] Comment on above: Performed By: #### H EPATIC, CBC, BMP, LIPASE #### [address] ALT [Catalytic activity/Vol] 7 U/L Normal 7-52 [facility] Comment on above: Performed By: #### H EPATIC, CBC, BMP, LIPASE #### [address] Anion gap [Moles/Vol] Not performed Normal 6.0-15.0 [facility] Comment on above: Performed By: #### H EPATIC, CBC, BMP, LIPASE #### [address] Aspartate Amino Transferase Normal 13-39 [facility] Comment on above: Result Comment: Spec imen hemolyzed, redraw requested Performed By: #### H EPATIC, CBC, BMP, LIPASE #### [address] Bilirubin [Mass/Vol] 0.5 mg/dL Normal 0.3-1.0 [facility] Comment on above: Performed By: #### H EPATIC, CBC, BMP, LIPASE #### [address] Calcium [Mass/Vol] 9.5 mg/dL Normal 8.6-10.3 [facility] Comment on above: Performed By: #### H EPATIC, CBC, BMP, LIPASE #### [address] Chloride [Moles/Vol] 106 mmol/L Normal 98-107 [facility] Comment on above: Performed By: #### H EPATIC, CBC, BMP, LIPASE #### [place] [address] [place] CO2 [Moles/Vol] 19.4 mmol/L Low 21.0-31.0 [facility] Comment on above: Performed By: #### H EPATIC, CBC, BMP, LIPASE #### [facility] [address] Creatinine [Mass/Vol] 0.44 mg/dL Low 0.60-1.20 [facility] Comment on above: Performed By: #### H EPATIC, CBC, BMP, LIPASE #### [address] Creatinine Clr Calc Pharmacy 173.12 Normal [facility] Comment on above: Performed By: #### H EPATIC, CBC, BMP, LIPASE #### [address] GFR/1.73 sq M.predicted MDRD (S/P/Bld) [Vol rate/Area] mL/min/{1.73_m2} Normal [facility] Comment on above: Performed By: #### H EPATIC, CBC, BMP, LIPASE #### [address] Globulin (S) [Mass/Vol] 3.7 g/dL Normal [facility] Comment on above: Performed By: #### H EPATIC, CBC, BMP, LIPASE #### [address] Glucose [Mass/Vol] 130 mg/dL High 70-100 [facility] Comment on above: Result Comment: [facility] Glucose Reference Range is dependent on time and content of last meal. Glucose of more than 200 mg/dL in a nonstressed, ambulatory subject supports the diagnosis of Diabetes Mellitus. ADA recommended reference range Performed By: #### H EPATIC, CBC, BMP, LIPASE #### [address] Potassium Normal 3.5-5.1 [facility] Comment on above: Result Comment: Spec imen hemolyzed, redraw requested Performed By: #### H EPATIC, CBC, BMP, LIPASE #### [address] Protein [Mass/Vol] 7.5 g/dL Normal 6.4-8.9 [facility] Comment on above: Performed By: #### H EPATIC, CBC, BMP, LIPASE #### [facility] [address] Sodium [Moles/Vol] 138 mmol/L Normal 136-145 [facility] Comment on above: Performed By: #### H EPATIC, CBC, BMP, LIPASE #### [facility] [address] Urea nitrogen [Mass/Vol] 8 mg/dL Normal 7-25 [facility] Comment on above: Performed By: #### H EPATIC, CBC, BMP, LIPASE #### [address] Creatinine [Mass/volume] in Serum or PlasmaOrdered By: Parminder Powell on 06-29-2024 Creatinine [Mass/Vol] Creatinine [Mass/v olume] in Serum or Plasma Low 0.60-1.20 [facility] Crystals [Presence] in Urine by AutomatedOrdered By: Parminder Powell on 06-29-2024 Crystals Auto Ql (U) Crystals [Presence] in Urine by Automated [facility] Dipstick and Microscopicon 0 06-29-2024 Appearance (U) Cloudy Critically abnormal Clear [facility] Comment on above: Order Comment: Name Collection Type:: Clean-Voided Midstream Performed By: #### A DDONUAPLUS, URDS, CUU #### [facility] [address] [place] [address] [place] Bacteria,Urine Rare Normal None Seen [facility] Comment on above: Order Comment: Name Collection Type:: Clean-Voided Midstream Performed By: #### A DDONUAPLUS, URDS, CUU #### [facility] [address] [place] [address] [place] Bilirubin,Urine Negative Normal Negative [facility] Comment on above: Order Comment: Name Collection Type:: Clean-Voided Midstream Performed By: #### A DDONUAPLUS, URDS, CUU #### [address] Color (U) Light-Yellow Normal Yellow [facility] Comment on above: Order Comment: Name Collection Type:: Clean-Voided Midstream Performed By: #### A DDONUAPLUS, URDS, CUU #### [address] Glucose Ql (U) 50 mg/dL High Normal [facility] Comment on above: Order Comment: Name Collection Type:: Clean-Voided Midstream Performed By: #### A DDONUAPLUS, URDS, CUU #### [place] [address] [place] Hyaline Casts,Urine None Normal 0-8 [facility] Comment on above: Order Comment: Name Collection Type:: Clean-Voided Midstream Performed By: #### A DDONUAPLUS, URDS, CUU #### [address] Ketones Ql (U) 4+ High Negative [facility] Comment on above: Order Comment: Name Collection Type:: Clean-Voided Midstream Performed By: #### A DDONUAPLUS, URDS, CUU #### [address] Leukocyte esterase Test strip Ql (U) 3+ High Negative [facility] Comment on above: Order Comment: Name Collection Type:: Clean-Voided Midstream Performed By: #### A DDONUAPLUS, URDS, CUU #### [place] [address] [place] Mucus,Urine Rare Normal [facility] Comment on above: Order Comment: Name Collection Type:: Clean-Voided Midstream Result Comment: PERF ORMED BY: [place] [address] PATHOLOGIST PATIENT EXPERIENCE COORDINATOR SARAH ANDREWS M.D. Performed By: #### A DDONUAPLUS, URDS, CUU #### [place] [address] [place] Nitrite,Urine Negative Normal Negative [facility] Comment on above: Order Comment: Name Collection Type:: Clean-Voided Midstream Performed By: #### A DDONUAPLUS, URDS, CUU #### [address] Occult Blood,Urine Negative Normal Negative [facility] Comment on above: Order Comment: Name Collection Type:: Clean-Voided Midstream Result Comment: PERF ORMED BY: [place] [address] PATHOLOGIST PATIENT EXPERIENCE COORDINATOR SARAH ANDREWS M.D. Performed By: #### A DDONUAPLUS, URDS, CUU #### [address] Othe Crystals,Urine 2+ Normal [facility] Comment on above: Order Comment: Name Collection Type:: Clean-Voided Midstream Performed By: #### A DDONUAPLUS, URDS, CUU #### [place] [address] [place] pH (U) 8.5 [pH] Normal 5.0-9.0 [facility] Comment on above: Order Comment: Name Collection Type:: Clean-Voided Midstream Performed By: #### A DDONUAPLUS, URDS, CUU #### [address] Protein (U) [Mass/Vol] 30 mg/dL High Negative [facility] Comment on above: Order Comment: Name Collection Type:: Clean-Voided Midstream Performed By: #### A DDONUAPLUS, URDS, CUU #### [place] [address] [place] RBC,Urine 3-4 Normal 0-4 [facility] Comment on above: Order Comment: Name Collection Type:: Clean-Voided Midstream Performed By: #### A DDONUAPLUS, URDS, CUU #### [place] [address] [place] Specificy [place],Urine 1.019 Normal 1.001-1.03 0 [facility] Comment on above: Order Comment: Name Collection Type:: Clean-Voided Midstream Performed By: #### A DDONUAPLUS, URDS, CUU #### [address] Squamous Epithelial Cell,Urine 5-9 High 0-2 [facility] Comment on above: Order Comment: Name Collection Type:: Clean-Voided Midstream Performed By: #### A DDONUAPLUS, URDS, CUU #### [place] [address] [place] Urobilinogen,Urine Normal Normal Normal [facility] Comment on above: Order Comment: Name Collection Type:: Clean-Voided Midstream Performed By: #### A DDONUAPLUS, URDS, CUU #### [address] WBC,Urine 10-19 High 0-4 [facility] Comment on above: Order Comment: Name Collection Type:: Clean-Voided Midstream Performed By: #### A DDONUAPLUS, URDS, CUU #### [place] [address] [place] Drug Screen,Urineon 06-30-19 25 Amphetamine Screen,Urine Negative Normal Negative [facility] Comment on above: Performed By: #### A DDONUAPLUS, URDS, CUU #### [place] [address] [place] Barbiturate Screen,Urine Negative Normal Negative [facility] Comment on above: Performed By: #### A DDONUAPLUS, URDS, CUU #### [place] [address] [place] Benzodiazepines Screen,Urine Negative Normal Negative [facility] Comment on above: Performed By: #### A DDONUAPLUS, URDS, CUU #### [address] Cannabinoid Screen,Urine Positive High Negative [facility] Comment on above: Result Comment: Thes e are unconfirmed results and should not be used for legal purposes. Drug Cut-Off Concentration: AMPH 1000 ng/mL DENIS 200 ng/mL DIOR 200 ng/mL COCM 300 ng/mL OP 300 ng/mL PCP 25 ng/mL THC 20 ng/mL PERFORMED BY: [place] [address] PATHOLOGIST PATIENT EXPERIENCE COORDINATOR SARAH ANDREWS M.D. Performed By: #### A DDONUAPLUS, URDS, CUU #### [address] Cocaine Screen,Urine Negative Normal Negative [facility] Comment on above: Performed By: #### A DDONUAPLUS, URDS, CUU #### [address] Opiate Screen,Urine Negative Normal Negative [facility] Comment on above: Performed By: #### A DDONUAPLUS, URDS, CUU #### [address] Phencyclidine Screen,Urine Negative Normal Negative [facility] Comment on above: Performed By: #### A DDONUAPLUS, URDS, CUU #### [address] ECG 12 lead ECGon 06-29-2024 ECG 12 lead ECG [facility] [address] Electrocardiograph Report Signed Patient: Nicole Farris MR#: [id number] : 1995 Acct:[id number] Age/Sex: 28 / F ADM Date: 06/29/24 Loc: ER Room: Type: [facility] ER Attending Dr: Ordering Provider: Parminder Powell [...] ECGs available Confirmed by SALUD SCHWARZ DO ([id number]) on 06/30/2024 7:11:38 PM Referred By: Electronically Signed By: SALUD SCHWARZ DO Transcribed By: MUS Signed By Salud Schwarz DO 06/30 191 Normal [facility] Eosinophils Auto (Bld) [#/Vo l]Ordered By: Parminder Powell on 06-29-2024 Eosinophils (Bld) [#/Vol] Automated eosinophil count 0.0-0.45 [facility] Eosinophils/100 WBC Auto (Bl d)Ordered By: Parminder Powell on 06-29-2024 Eosinophils/100 WBC (Bld) Automated eosinophil % . [facility] Epithelial cells.squamous [# /area] in Urine sediment by Automated countOrdered By: Parminder Powell on 06-29-2024 Epithelial cells.squamous Auto (Urine sed) [#/Area] Epithelial cells.squamous [#/area] in Urine sediment by Automated count High 0-2 [facility] Erythrocyte distribution wid th Auto (RBC) [Ratio]Ordered By: Parminder Powell on 06-29-2024 Erythrocyte distribution width (RBC) [Ratio] Erythrocyte distribution width [Ratio] by Automated count 11.9-15.3 [facility] Erythrocytes [#/area] in Uri ne sediment by Automated countOrdered By: Parminder Powell on 06-29-2024 RBC Auto (Urine sed) [#/Area] Erythrocytes [#/area] in Urine sediment by Automated count 0-4 [facility] Globulin Calc (S) [Mass/Vol] Ordered By: Parminder Powell on 06-29-2024 Globulin (S) [Mass/Vol] Serum globulin measurement by calculation (mass/volume) [facility] Glucose [Mass/volume] in Ser um or PlasmaOrdered By: Parminder Powell on 06-29-2024 Glucose [Mass/Vol] Glucose [Mass/volume ] in Serum or Plasma High 70-100 [facility] Comment on above: ADA recommended refe rence [...] in Urine by Test strip High Normal [facility] Hematocrit Auto (Bld) [Volum e fraction]Ordered By: Parminder Powell on 06-29-2024 Hematocrit (Bld) [Volume fraction] Hematocrit [Volume Fraction] of Blood by Automated count Low 34.0-46.4 [facility] Hemoglobin Test strip Ql (U) Ordered By: Parminder Powell on 06-29-2024 Hemoglobin Ql (U) Hemoglobin [Presence ] in Urine by Test strip Negative [facility] Hemoglobin [Mass/volume] in BloodOrdered By: Parminder Powell on 06-29-2024 Hemoglobin (Bld) [Mass/Vol] Hemoglobin [Mass/volume] in Blood Low 11.8-15.4 [facility] Hyaline casts [#/area] in Ur ine sediment by Automated countOrdered By: Parminder Powell on 06-29-2024 Hyaline casts Auto (Urine sed) [#/Area] Hyaline casts [#/area] in Urine sediment by Automated count 0-8 [facility] Ketones Test strip Ql (U)Ord ered By: Parminder Pwoell on 06-29-2024 Ketones Ql (U) Ketones [Presence] i n Urine by Test strip High Negative [facility] Leukocyte esterase [Presence ] in Urine by Test stripOrdered By: Parminder Powell on 06-29-2024 Leukocyte esterase Test strip Ql (U) Leukocyte esterase [Presence] in Urine by Test strip High Negative [facility] Leukocytes [#/area] in Urine sediment by Automated countOrdered By: Parminder Powell on 06-29-2024 WBC Auto (Urine sed) [#/Area] Leukocytes [#/area] in Urine sediment by Automated count High 0-4 [facility] Leukocytes [#/volume] correc rossy for nucleated erythrocytes in Blood by Automated counOrdered By: Parminder Powell on 06-29-2024 WBC corrected for nucl RBC Auto (Bld) [#/Vol] Leukocytes [#/volume] corrected for nucleated erythrocytes in Blood by Automated coun 3.8-11.6 [facility] Lymphocytes Auto (Bld) [#/Vo l]Ordered By: Parminder Powell on 06-29-2024 Lymphocytes (Bld) [#/Vol] Lymphocytes [#/volume] in Blood by Automated count Low 1.00-4.8 [facility] Lymphocytes/100 WBC Auto (Bl d)Ordered By: Parminder Powell on 06-29-2024 Lymphocytes/100 WBC (Bld) Lymphocytes/100 leukocytes in Blood by Automated count . [facility] MCH Auto (RBC) [Entitic mass ]Ordered By: Parminder Powell on 06-29-2024 MCH (RBC) [Entitic mass] MCH [Entitic mass] by Automated count 24.7-34.3 [facility] MCHC Auto (RBC) [Mass/Vol]Or dered By: Parminder Powell on 06-29-2024 MCHC (RBC) [Mass/Vol] MCHC [Mass/volume] by Automated count 32.0-35.0 [facility] MCV Auto (RBC) [Entitic vol] Ordered By: Parminder Powell on 06-29-2024 MCV (RBC) [Entitic vol] MCV [Entitic volume] by Automated count 80-100 [facility] Magnesiumon 06-29-2024 Magnesium Normal 1.9-2.7 [facility] Comment on above: Result Comment: Spec imen hemolyzed, redraw requested PERFORMED BY: [place] [address] PATHOLOGIST PATIENT EXPERIENCE COORDINATOR SARAH ANDREWS M.D. Performed By: #### H EPATIC, CBC, BMP, LIPASE #### [facility] [address] [place] [address] Magnesium [Mass/volume] in S mayte or PlasmaOrdered By: Parminder Powell on 06-29-2024 Magnesium [Mass/Vol] Magnesium [Mass/vol ume] in Serum or Plasma Low 1.9-2.7 [facility] Monocyte distribution width [Entitic volume] in Blood by AutomatedOrdered By: Parminder Powell on 06-29-2024 Monocyte distribution width Auto (Bld) [Entitic vol] Monocyte distribution width [Entitic volume] in Blood by Automated High 0.00-20.00 [facility] Comment on above: For adults in ED, MD W > 20.0 may be associated with a higher risk of sepsis during the first 12 hrs of hospital admission Monocytes Auto (Bld) [#/Vol] Ordered By: Parminder Powell on 06-29-2024 Monocytes (Bld) [#/Vol] Automated blood monocyte count 0.0-0.8 [facility] Monocytes/100 WBC Auto (Bld) Ordered By: Parminder Powell on 06-29-2024 Monocytes/100 WBC (Bld) Automated monocyte % . [facility] Mucus [Presence] in Urine by AutomatedOrdered By: Parminder Powell on 06-29-2024 Mucus Auto Ql (U) Mucus [Presence] in Urine by Automated [facility] Neutrophils Auto (Bld) [#/Vo l]Ordered By: Parminder Powell on 06-29-2024 Neutrophils (Bld) [#/Vol] Neutrophils [#/volume] in Blood by Automated count High 1.8-7.7 [facility] Neutrophils/100 WBC Auto (Bl d)Ordered By: Parminder Powell on 06-29-2024 Neutrophils/100 WBC (Bld) Automated neutrophil % . [facility] Nitrite Test strip Ql (U)Ord ered By: Parminder Powell on 06-29-2024 Nitrite Ql (U) Nitrite [Presence] i n Urine by Test strip Negative [facility] No Panel InformationOrdered By: Parminder Powell on 06-29-2024 Estimated GFR (CKD-EPI) > 60.0 mL/Min [facility] Creatinine Clearance (Chem 173.12 [facility] Nucleated erythrocytes [Pres ence] in Blood by Automated countOrdered By: Parminder Powell on 06-29-2024 Nucleated RBC Auto Ql (Bld) Nucleated erythrocytes [Presence] in Blood by Automated count 0-0.5 [facility] Opiates [Presence] in Urine by Screen methodOrdered By: Parminder Powell on 06-29-2024 Opiates Screen Ql (U) Opiates [Presence] in Urine by Screen method Negative [facility] Phencyclidine Screen Ql (U)O rdered By: Parminder Powell on 06-29-2024 Phencyclidine Ql (U) Phencyclidine [Pres ence] in Urine by Screen method Negative [facility] Platelet mean volume Auto (B ld) [Entitic vol]Ordered By: Parminder Powell on 06-29-2024 Platelet mean volume (Bld) [Entitic vol] Platelet mean volume [Entitic volume] in Blood by Automated count High 6.3-10.7 [facility] Platelets Auto (Bld) [#/Vol] Ordered By: Parminder Powell on 06-29-2024 Platelets (Bld) [#/Vol] Platelets [#/volume] in Blood by Automated count 150-450 [facility] Potassium [Moles/volume] in Serum or PlasmaOrdered By: Parminder Powell on 06-29-2024 Potassium [Moles/Vol] Potassium [Moles/v olume] in Serum or Plasma 3.5-5.1 [facility] Protein Test strip (U) [Mass /Vol]Ordered By: Parminder Powell on 06-29-2024 Protein (U) [Mass/Vol] Protein [Mass/volume] in Urine by Test strip High Negative [facility] Protein [Mass/volume] in Ser um or PlasmaOrdered By: Parminder Powell on 06-29-2024 Protein [Mass/Vol] Protein [Mass/volume ] in Serum or Plasma 6.4-8.9 [facility] RBC Auto (Bld) [#/Vol]Ordere d By: Parminder Powell on 06-29-2024 RBC (Bld) [#/Vol] Erythrocytes [#/volu me] in Blood by Automated count 3.60-5.00 [facility] Redraw Shine 06-29-2024 AST [Catalytic activity/Vol] 10 U/L Low 13-39 [facility] Comment on above: Result Comment: PERF ORMED BY: [place] [address] PATHOLOGIST PATIENT EXPERIENCE COORDINATOR SARAH ANDREWS M.D. Performed By: #### H EPATIC, CBC, BMP, LIPASE #### [facility] [address] Redraw Magnesiumon Magnesium [Mass/Vol] 1.7 mg/dL Low 1.9-2.7 [facility] Comment on above: Performed By: #### H EPATIC, CBC, BMP, LIPASE #### [facility] [address] Redraw Potassiumon Potassium [Moles/Vol] 3.8 mmol/L Normal 3.5-5.1 [facility] Comment on above: Performed By: #### H EPATIC, CBC, BMP, LIPASE #### [facility] [address] Serum or plasma albumin/glob ulin mass ratioOrdered By: Parminder Powell on 06-29-2024 Albumin/Globulin [Mass ratio] Serum or plasma albumin/globulin mass ratio [facility] Serum or plasma anion gap de terminationOrdered By: Parminder Powell on 06-29-2024 Anion gap [Moles/Vol] Serum or plasma an ion gap determination [facility] Comment on above: Test not performed Sodium [Moles/volume] in Ser um or PlasmaOrdered By: Parminder Powell on 06-29-2024 Sodium [Moles/Vol] Sodium [Moles/volume ] in Serum or Plasma 136-145 [facility] Specific gravity Test strip (U) [Rel density]Ordered By: Parminder Powell on 06-29-2024 Specific gravity (U) [Rel density] Specific gravity of Urine by Test strip 1.001-1.03 0 [facility] Urea nitrogen [Mass/volume] in Serum or PlasmaOrdered By: Parminder Powell on 06-29-2024 Urea nitrogen [Mass/Vol] Urea nitrogen [Mass/volume] in Serum or Plasma 7-25 [facility] Urine Cultureon 06-29-2024 Bacteria identified Cx Nom (U) <9,000 colonies/ml mixed bacterial skin contaminants 2 Days PERFORMED BY: [facility] [place] [address] [place] [address] PATHOLOGIST PATIENT EXPERIENCE COORDINATOR SARAH ANDREWS M.D. Normal [facility] Comment on above: Performed By: #### A DDONUAPLUS, URDS, CUU #### [facility] [address] Urobilinogen Test strip (U) [Mass/Vol]Ordered By: Parminder Powell on 06-29-2024 Urobilinogen (U) [Mass/Vol] Urobilinogen [Mass/volume] in Urine by Test strip Normal [facility] WBC Auto (Bld) [#/Vol]Ordere d By: Parminder Powell on 06-29-2024 WBC (Bld) [#/Vol] Leukocytes [#/volume ] in Blood by Automated count 3.8-11.6 [facility] pH Test strip (U)Ordered By: Parminder Powell on 06-29-2024 pH (U) pH of Urine by Test strip 5.0-9.0 [facility] Urinalysis macro (dipstick) panel (U)on 06-21-2024 Bilirubin, UA Negative Negative - 4(70) +++ mg/dL [facility] Blood, UA Negative Negative - 50 Josiah/mcL [facility] Clarity, UA Clear [facility] Color, UA Yellow [facility] Glucose, UA Negative Negative - 2000(110) ++++ mg/dL [facility] Interpretation and review of laboratory results Abnormal [facility] Ketones, UA Negative Negative - 160(16) ++++ mg/dL [facility] Leukocytes, UA Trace Negative - 500+++ Archana/mcL [facility] Nitrite, UA Negative Negative - Positive [facility] pH, UA 7 5 - 9 [facility] Protein, UA Trace Negative - 1999(20) ++++ mg/dL [facility] Spec Grav, UA 1.025 1 - 1.03 [facility] Urobilinogen, UA 0.2 0.2 - 12 mg/dL [facility] Alanine aminotransferase [En zymatic activity/volume] in Serum or PlasmaOrdered By: Mateo Navas on 06-07-2024 ALT [Catalytic activity/Vol] Alanine aminotransferase [Enzymatic activity/volume] in Serum or Plasma 7 [facility] Albumin [Mass/volume] in Ser um or Plasma by Bromocresol green (BCG) dye binding methoOrdered By: Mateo Navas on 06-07-2024 Albumin BCG dye [Mass/Vol] Albumin [Mass/volume] in Serum or Plasma by Bromocresol green (BCG) dye binding metho 3.5-5.7 [facility] Alkaline phosphatase [Enzyma tic activity/volume] in Serum or PlasmaOrdered By: Mateo Navas on 06-07-2024 ALP [Catalytic activity/Vol] Alkaline phosphatase [Enzymatic activity/volume] in Serum or Plasma 34-104 [facility] Amphetamine Screen Ql (U)Ord ered By: Mateo Navas on 06-07-2024 Amphetamines Ql (U) Amphetamines screen Negativ e [facility] Appearance of UrineOrdered B y: Mateo Navas on 06-07-2024 Appearance (U) Urine appearance Clear [facility] Aspartate aminotransferase [ Enzymatic activity/volume] in Serum or PlasmaOrdered By: Mateo Navas on 06-07-2024 AST [Catalytic activity/Vol] Aspartate aminotransferase [Enzymatic activity/volume] in Serum or Plasma Low 13-39 [facility] Barbiturates [Presence] in U rine by Screen methodOrdered By: Mateo Navas on 06-07-2024 Barbiturates Screen Ql (U) Barbiturates [Presence] in Urine by Screen method Negative [facility] Basic Metabolic Panelon 05-20 Anion gap [Moles/Vol] 12.8 mmol/L Normal 6.0-15.0 [facility] Comment on above: Performed By: #### H EPATIC, CBC, BMP, LIPASE #### [facility] [address] Calcium [Mass/Vol] 8.7 mg/dL Normal 8.6-10.3 [facility] Comment on above: Performed By: #### H EPATIC, CBC, BMP, LIPASE #### [facility] [address] [place] [address] [place] Chloride [Moles/Vol] 109 mmol/L High 98-107 [facility] Comment on above: Performed By: #### H EPATIC, CBC, BMP, LIPASE #### [facility] [address] [place] [id number] [place] CO2 [Moles/Vol] 19.6 mmol/L Low 21.0-31.0 [facility] Comment on above: Performed By: #### H EPATIC, CBC, BMP, LIPASE #### [facility] [address] [place] [id number] [place] Creatinine [Mass/Vol] 0.46 mg/dL Low 0.60-1.20 [facility] Comment on above: Performed By: #### H EPATIC, CBC, BMP, LIPASE #### [address] Creatinine Clr Calc Pharmacy 167.01 Normal [facility] Comment on above: Performed By: #### H EPATIC, CBC, BMP, LIPASE #### [address] GFR/1.73 sq M.predicted MDRD (S/P/Bld) [Vol rate/Area] mL/min/{1.73_m2} Normal [facility] Comment on above: Performed By: #### H EPATIC, CBC, BMP, LIPASE #### [address] Glucose [Mass/Vol] 156 mg/dL High 70-100 [facility] Comment on above: Result Comment: [place] Glucose Reference Range is dependent on time and content of last meal. Glucose of more than 200 mg/dL in a nonstressed, ambulatory subject supports the diagnosis of Diabetes Mellitus. ADA recommended reference range Performed By: #### H EPATIC, CBC, BMP, LIPASE #### [address] Potassium [Moles/Vol] 3.4 mmol/L Low 3.5-5.1 [facility] Comment on above: Performed By: #### H EPATIC, CBC, BMP, LIPASE #### [address] Sodium [Moles/Vol] 138 mmol/L Normal 136-145 [facility] Comment on above: Performed By: #### H EPATIC, CBC, BMP, LIPASE #### [address] Urea nitrogen [Mass/Vol] 6 mg/dL Low 7-25 [facility] Comment on above: Performed By: #### H EPATIC, CBC, BMP, LIPASE #### [address] Basophils Auto (Bld) [#/Vol] Ordered By: Mateo Navas on 06-07-2024 Basophils (Bld) [#/Vol] Automated basophil count 0.0-0.2 [facility] Basophils/100 WBC Auto (Bld) Ordered By: Mateo Navas on 06-07-2024 Basophils/100 WBC (Bld) Automated basophil % . [facility] Benzodiazepines Screen Ql (U )Ordered By: Mateo Navas on 06-07-2024 Benzodiazepines Ql (U) Benzodiazepines [Presence] in Urine by Screen method Negative [facility] Benzoylecgonine [Presence] i n Urine by Screen methodOrdered By: Mateo Navas on 06-07-2024 Benzoylecgonine Screen Ql (U) Benzoylecgonine [Presence] in Urine by Screen method Negative [facility] Bilirubin Test strip Ql (U)O rdered By: Mateo Navas on 06-07-2024 Bilirubin Ql (U) Bilirubin.total [Pre sence] in Urine by Test strip Negative [facility] Bilirubin.direct [Mass/volum e] in Serum or PlasmaOrdered By: Mateo Navas on 06-07-2024 Bilirubin.direct [Mass/Vol] Bilirubin.direct [Mass/volume] in Serum or Plasma Low 0.03-0.18 [facility] Comment on above: If the DBIL is less than 0.1, IBIL is not able to becalculated. Bilirubin.total [Mass/volume ] in Serum or PlasmaOrdered By: Mateo Navas on 06-07-2024 Bilirubin [Mass/Vol] Bilirubin.total [Mass/volume] in Serum or Plasma 0.3-1.0 [facility] Calcium [Mass/volume] in Ser um or PlasmaOrdered By: Maeto Navas on 06-07-2024 Calcium [Mass/Vol] Calcium [Mass/volume ] in Serum or Plasma 8.6-10.3 [facility] Cannabinoids [Presence] in U rine by Screen methodOrdered By: Mateo Navas on 06-07-2024 Cannabinoids Screen Ql (U) Cannabinoids [Presence] in Urine by Screen method High Negative [facility] Comment on above: These are unconfirme d [...] [Moles/volume] in Serum or Plasma Low 21.0-31.0 [facility] Chloride [Moles/volume] in S mayte or PlasmaOrdered By: Mateo Navas on 06-07-2024 Chloride [Moles/Vol] Chloride [Moles/vol ume] in Serum or Plasma High 98-107 [facility] Color Auto (U)Ordered By: Lamont Navas on 06-07-2024 Color (U) Color of Urine by Auto [facility] Count Auto Di ffon 06-07-2024 Basophils (Bld) [#/Vol] 0.0 10*3/uL Normal 0.0-0.2 [facility] Comment on above: Result Comment: PERF ORMED BY: [place] [address] PATHOLOGIST PATIENT EXPERIENCE COORDINATOR SARAH ANDREWS M.D. Performed By: #### H EPATIC, CBC, BMP, LIPASE #### [address] Basophils/100 WBC (Bld) 0.1 % Normal . [facility] Comment on above: Performed By: #### H EPATIC, CBC, BMP, LIPASE #### [facility] [address] [place] [address] [place] Eosinophils (Bld) [#/Vol] 0.0 10*3/uL Normal 0.0-0.45 [facility] Comment on above: Performed By: #### H EPATIC, CBC, BMP, LIPASE #### [place] [address] [place] Eosinophils/100 WBC (Bld) 0.0 % Normal . [facility] Comment on above: Performed By: #### H EPATIC, CBC, BMP, LIPASE #### [address] Erythrocyte distribution width (RBC) [Ratio] 13.6 % Normal 11.9-15.3 [facility] Comment on above: Performed By: #### H EPATIC, CBC, BMP, LIPASE #### [address] Hematocrit (Bld) [Volume fraction] 33.6 % Low 34.0-46.4 [facility] Comment on above: Performed By: #### H EPATIC, CBC, BMP, LIPASE #### [address] Hemoglobin (Bld) [Mass/Vol] 11.4 g/dL Low 11.8-15.4 [facility] Comment on above: Performed By: #### H EPATIC, CBC, BMP, LIPASE #### [address] Lymphocytes (Bld) [#/Vol] 0.9 10*3/uL Low 1.00-4.8 [facility] Comment on above: Performed By: #### H EPATIC, CBC, BMP, LIPASE #### [address] Lymphocytes/100 WBC (Bld) 7.2 % Normal . [facility] Comment on above: Performed By: #### H EPATIC, CBC, BMP, LIPASE #### [address] MCH (RBC) [Entitic mass] 29.1 pg Normal 24.7-34.3 [facility] Comment on above: Performed By: #### H EPATIC, CBC, BMP, LIPASE #### [address] MCV (RBC) [Entitic vol] 85.7 fL Normal 80-100 [facility] Comment on above: Performed By: #### H EPATIC, CBC, BMP, LIPASE #### [address] Mean Corpuscular HGB Conc 34.0 g/dL Normal 32.0-35.0 [facility] Comment on above: Performed By: #### H EPATIC, CBC, BMP, LIPASE #### [address] Monocytes (Bld) [#/Vol] 0.3 10*3/uL Normal 0.0-0.8 [facility] Comment on above: Performed By: #### H EPATIC, CBC, BMP, LIPASE #### [address] Monocytes/100 WBC (Bld) 22.40 % High 0.00-20.00 [facility] Comment on above: Result Comment: For adults in ED, MDW > 20.0 may be associated with a higher risk of sepsis during the first 12 hrs of hospital admission Performed By: #### H EPATIC, CBC, BMP, LIPASE #### [address] Monocytes/100 WBC (Bld) 2.4 % Normal . [facility] Comment on above: Performed By: #### H EPATIC, CBC, BMP, LIPASE #### [address] Neutrophils (Bld) [#/Vol] 11.1 10*3/uL High 1.8-7.7 [facility] Comment on above: Performed By: #### H EPATIC, CBC, BMP, LIPASE #### [address] Neutrophils/100 WBC (Bld) 90.3 % Normal . [facility] Comment on above: Performed By: #### H EPATIC, CBC, BMP, LIPASE #### [address] NRBC% 0.1 /100{WBC} Normal 0-0.5 [facility] Comment on above: Performed By: #### H EPATIC, CBC, BMP, LIPASE #### [address] Platelet mean volume (Bld) [Entitic vol] 11.1 fL High 6.3-10.7 [facility] Comment on above: Performed By: #### H EPATIC, CBC, BMP, LIPASE #### [address] Platelets (Bld) [#/Vol] 190 10*3/uL Normal 150-450 [facility] Comment on above: Performed By: #### H EPATIC, CBC, BMP, LIPASE #### [address] RBC (Bld) [#/Vol] 3.92 10*6/uL Normal 3.60-5.[address] [facility] Comment on above: Performed By: #### H EPATIC, CBC, BMP, LIPASE #### [address] WBC (Bld) [#/Vol] 12.3 10*3/uL High 3.8-11.[address] [facility] Comment on above: Performed By: #### H EPATIC, CBC, BMP, LIPASE #### [address] Creatinine [Mass/volume] in Serum or PlasmaOrdered By: Mateo Navas on 06-07-2024 Creatinine [Mass/Vol] Creatinine [Mass/v olume] in Serum or Plasma Low 0.60-1.20 [facility] Drug Screen,Urineon 06-08-19 25 Amphetamine Screen,Urine Negative Normal Negative [facility] Comment on above: Performed By: #### H EPATIC, CBC, BMP, LIPASE #### [address] Barbiturate Screen,Urine Negative Normal Negative [facility] Comment on above: Performed By: #### H EPATIC, CBC, BMP, LIPASE #### [address] Benzodiazepines Screen,Urine Negative Normal Negative [facility] Comment on above: Performed By: #### H EPATIC, CBC, BMP, LIPASE #### [address] Cannabinoid Screen,Urine Positive High Negative [facility] Comment on above: Result Comment: Thes e are unconfirmed results and should not be used for legal purposes. Drug Cut-Off Concentration: AMPH 1000 ng/mL DENIS 200 ng/mL DIOR 200 ng/mL COCM 300 ng/mL OP 300 ng/mL PCP 25 ng/mL THC 20 ng/mL PERFORMED BY: [place] [address] PATHOLOGIST PATIENT EXPERIENCE COORDINATOR SARAH ANDREWS M.D. Performed By: #### H EPATIC, CBC, BMP, LIPASE #### [address] Cocaine Screen,Urine Negative Normal Negative [facility] Comment on above: Performed By: #### H EPATIC, CBC, BMP, LIPASE #### [address] Opiate Screen,Urine Negative Normal Negative [facility] Comment on above: Performed By: #### H EPATIC, CBC, BMP, LIPASE #### [address] Phencyclidine Screen,Urine Negative Normal Negative [facility] Comment on above: Performed By: #### H EPATIC, CBC, BMP, LIPASE #### [address] Eosinophils Auto (Bld) [#/Vo l]Ordered By: Mateo Navas on 06-07-2024 Eosinophils (Bld) [#/Vol] Automated eosinophil count 0.0-0.45 [facility] Eosinophils/100 WBC Auto (Bl d)Ordered By: Mateo Navas on 06-07-2024 Eosinophils/100 WBC (Bld) Automated eosinophil % . [facility] Erythrocyte distribution wid th Auto (RBC) [Ratio]Ordered By: Mateo Navas on 06-07-2024 Erythrocyte distribution width (RBC) [Ratio] Erythrocyte distribution width [Ratio] by Automated count 11.9-15.3 [facility] Globulin Calc (S) [Mass/Vol] Ordered By: Mateo Navas on 03-19-2025 Globulin (S) [Mass/Vol] Serum globulin measurement by calculation (mass/volume) [facility] Glucose [Mass/volume] in Ser um or PlasmaOrdered By: Mateo Navas on 06-07-2024 Glucose [Mass/Vol] Glucose [Mass/volume ] in Serum or Plasma High 70-100 [facility] Comment on above: ADA recommended refe rence [...] in Urine by Test strip High Normal [facility] Hematocrit Auto (Bld) [Volum e fraction]Ordered By: Mateo Navas on 06-07-2024 Hematocrit (Bld) [Volume fraction] Hematocrit [Volume Fraction] of Blood by Automated count Low 34.0-46.4 [facility] Hemoglobin Test strip Ql (U) Ordered By: Mateo Navas on 06-07-2024 Hemoglobin Ql (U) Hemoglobin [Presence ] in Urine by Test strip Negative [facility] Hemoglobin [Mass/volume] in BloodOrdered By: Mateo Navas on 06-07-2024 Hemoglobin (Bld) [Mass/Vol] Hemoglobin [Mass/volume] in Blood Low 11.8-15.4 [facility] Hepatic Panelon 06-07-2024 Albumin [Mass/Vol] 3.9 g/dL Normal 3.5-5.7 [facility] Comment on above: Performed By: #### H EPATIC, CBC, BMP, LIPASE #### [facility] [address] [place] [address] [place] Albumin/Globulin [Mass ratio] 1.2 {ratio} Normal [facility] Comment on above: Performed By: #### H EPATIC, CBC, BMP, LIPASE #### [facility] [address] [place] [id number] [place] ALP [Catalytic activity/Vol] 44 U/L Normal 34-104 [facility] Comment on above: Performed By: #### H EPATIC, CBC, BMP, LIPASE #### [address] ALT [Catalytic activity/Vol] 7 U/L Normal 7-52 [facility] Comment on above: Performed By: #### H EPATIC, CBC, BMP, LIPASE #### [address] AST [Catalytic activity/Vol] 11 U/L Low 13-39 [facility] Comment on above: Performed By: #### H EPATIC, CBC, BMP, LIPASE #### [address] Bilirubin [Mass/Vol] 0.3 mg/dL Normal 0.3-1.0 [facility] Comment on above: Performed By: #### H EPATIC, CBC, BMP, LIPASE #### [address] Bilirubin,Indirect 0.3 mg/dL Normal [facility] Comment on above: Performed By: #### H EPATIC, CBC, BMP, LIPASE #### [address] Bilirubin.indirect [Mass/Vol] 0.00 mg/dL Low 0.03-0.18 [facility] Comment on above: Result Comment: If t he DBIL is less than 0.1, IBIL is not able to be calculated. Performed By: #### H EPATIC, CBC, BMP, LIPASE #### [address] Globulin (S) [Mass/Vol] 3.2 g/dL Normal [facility] Comment on above: Performed By: #### H EPATIC, CBC, BMP, LIPASE #### [address] Protein [Mass/Vol] 7.1 g/dL Normal 6.4-8.9 [facility] Comment on above: Performed By: #### H EPATIC, CBC, BMP, LIPASE #### [address] Ketones Test strip Ql (U)Ord ered By: Mateo Navas on 06-07-2024 Ketones Ql (U) Ketones [Presence] i n Urine by Test strip High Negative [facility] Leukocyte esterase [Presence ] in Urine by Test stripOrdered By: Mateo Navas on 06-07-2024 Leukocyte esterase Test strip Ql (U) Leukocyte esterase [Presence] in Urine by Test strip Negative [facility] Leukocytes [#/volume] correc rossy for nucleated erythrocytes in Blood by Automated counOrdered By: Mateo Navas on 06-07-2024 WBC corrected for nucl RBC Auto (Bld) [#/Vol] Leukocytes [#/volume] corrected for nucleated erythrocytes in Blood by Automated coun High 3.8-11.6 [facility] Lipaseon 06-07-2024 Lipase [Catalytic activity/Vol] 13.0 U/L Normal 11.0-82.0 [facility] Comment on above: Result Comment: PERF ORMED BY: [place] [address] PATHOLOGIST PATIENT EXPERIENCE COORDINATOR SARAH ANDREWS M.D. Performed By: #### H EPATIC, CBC, BMP, LIPASE #### [address] Lipase [Enzymatic activity/v olume] in Serum or PlasmaOrdered By: Mateo Navas on 06-07-2024 Lipase [Catalytic activity/Vol] Lipase [Enzymatic activity/volume] in Serum or Plasma 11.0-82.0 [facility] Lymphocytes Auto (Bld) [#/Vo l]Ordered By: Mateo Navas on 06-07-2024 Lymphocytes (Bld) [#/Vol] Lymphocytes [#/volume] in Blood by Automated count Low 1.00-4.8 [facility] Lymphocytes/100 WBC Auto (Bl d)Ordered By: Mateo Navas on 06-07-2024 Lymphocytes/100 WBC (Bld) Lymphocytes/100 leukocytes in Blood by Automated count . [facility] MCH Auto (RBC) [Entitic mass ]Ordered By: Mateo Navas on 06-07-2024 MCH (RBC) [Entitic mass] MCH [Entitic mass] by Automated count 24.7-34.3 [facility] MCHC Auto (RBC) [Mass/Vol]Or dered By: Mateo Navas on 06-07-2024 MCHC (RBC) [Mass/Vol] MCHC [Mass/volume] by Automated count 32.0-35.0 [facility] MCV Auto (RBC) [Entitic vol] Ordered By: Mateo Navas on 06-07-2024 MCV (RBC) [Entitic vol] MCV [Entitic volume] by Automated count 80-100 [facility] Monocyte distribution width [Entitic volume] in Blood by AutomatedOrdered By: Mateo Navas on 06-07-2024 Monocyte distribution width Auto (Bld) [Entitic vol] Monocyte distribution width [Entitic volume] in Blood by Automated High 0.00-20.00 [facility] Comment on above: For adults in ED, MD W > 20.0 may be associated with a higher risk of sepsis during the first 12 hrs of hospital admission Monocytes Auto (Bld) [#/Vol] Ordered By: Mateo Navas on 06-07-2024 Monocytes (Bld) [#/Vol] Automated blood monocyte count 0.0-0.8 [facility] Monocytes/100 WBC Auto (Bld) Ordered By: Mateo Navas on 06-07-2024 Monocytes/100 WBC (Bld) Automated monocyte % . [facility] Neutrophils Auto (Bld) [#/Vo l]Ordered By: Mateo Navas on 06-07-2024 Neutrophils (Bld) [#/Vol] Neutrophils [#/volume] in Blood by Automated count High 1.8-7.7 [facility] Neutrophils/100 WBC Auto (Bl d)Ordered By: Mateo Navas on 06-07-2024 Neutrophils/100 WBC (Bld) Automated neutrophil % . [facility] Nitrite Test strip Ql (U)Ord ered By: Mateo Navas on 06-07-2024 Nitrite Ql (U) Nitrite [Presence] i n Urine by Test strip Negative [facility] No Panel InformationOrdered By: Mateo Navas on 06-07-2024 Estimated GFR (CKD-EPI) > 60.0 mL/Min [facility] Creatinine Clearance (Chem 167.01 [facility] Nucleated erythrocytes [Pres ence] in Blood by Automated countOrdered By: Mateo Navas on 06-07-2024 Nucleated RBC Auto Ql (Bld) Nucleated erythrocytes [Presence] in Blood by Automated count 0-0.5 [facility] Opiates [Presence] in Urine by Screen methodOrdered By: Mateo Navas on 06-07-2024 Opiates Screen Ql (U) Opiates [Presence] in Urine by Screen method Negative [facility] Phencyclidine Screen Ql (U)O rdered By: Mateo Navas on 06-07-2024 Phencyclidine Ql (U) Phencyclidine [Pres ence] in Urine by Screen method Negative [facility] Platelet mean volume Auto (B ld) [Entitic vol]Ordered By: Mateo Navas on 06-07-2024 Platelet mean volume (Bld) [Entitic vol] Platelet mean volume [Entitic volume] in Blood by Automated count High 6.3-10.7 [facility] Platelets Auto (Bld) [#/Vol] Ordered By: Mateo Navas on 06-07-2024 Platelets (Bld) [#/Vol] Platelets [#/volume] in Blood by Automated count 150-450 [facility] Potassium [Moles/volume] in Serum or PlasmaOrdered By: Mateo Navas on 06-07-2024 Potassium [Moles/Vol] Potassium [Moles/v olume] in Serum or Plasma Low 3.5-5.1 [facility] Protein Test strip (U) [Mass /Vol]Ordered By: Mateo Navas on 06-07-2024 Protein (U) [Mass/Vol] Protein [Mass/volume] in Urine by Test strip Negative [facility] Protein [Mass/volume] in Ser um or PlasmaOrdered By: Mateo Navas on 06-07-2024 Protein [Mass/Vol] Protein [Mass/volume ] in Serum or Plasma 6.4-8.9 [facility] RBC Auto (Bld) [#/Vol]Ordere d By: Mateo Navas on 06-07-2024 RBC (Bld) [#/Vol] Erythrocytes [#/volu me] in Blood by Automated count 3.60-5.00 [facility] Serum or plasma albumin/glob ulin mass ratioOrdered By: Mateo Navas on 06-07-2024 Albumin/Globulin [Mass ratio] Serum or plasma albumin/globulin mass ratio [facility] Serum or plasma anion gap de terminationOrdered By: Mateo Navas on 06-07-2024 Anion gap [Moles/Vol] Serum or plasma an ion gap determination 6.0-15.0 [facility] Serum or plasma non-glucuron idated bilirubin measurement (mass/volume)Ordered By: Mateo Navas on 06-07-2024 Bilirubin.indirect [Mass/Vol] Serum or plasma non-glucuronidated bilirubin measurement (mass/volume) [facility] Sodium [Moles/volume] in Ser um or PlasmaOrdered By: Mateo Navas on 06-07-2024 Sodium [Moles/Vol] Sodium [Moles/volume ] in Serum or Plasma 136-145 [facility] Specific gravity Test strip (U) [Rel density]Ordered By: Mateo Navas on 06-07-2024 Specific gravity (U) [Rel density] Specific gravity of Urine by Test strip 1.001-1.03 0 [facility] Urea nitrogen [Mass/volume] in Serum or PlasmaOrdered By: Mateo Navas on 06-07-2024 Urea nitrogen [Mass/Vol] Urea nitrogen [Mass/volume] in Serum or Plasma Low 7-25 [facility] Urinalysison 06-07-2024 Appearance (U) Clear Normal Clear [facility] Comment on above: Order Comment: Name Collection Type:: Clean-Voided Midstream Performed By: #### H EPATIC, CBC, BMP, LIPASE #### [facility] [address] [place] [address] [place] Bilirubin,Urine Negative Normal Negative [facility] Comment on above: Order Comment: Name Collection Type:: Clean-Voided Midstream Performed By: #### H EPATIC, CBC, BMP, LIPASE #### [facility] [address] [place] [id number] [place] Color (U) Light-Yellow Normal Yellow [facility] Comment on above: Order Comment: Name Collection Type:: Clean-Voided Midstream Performed By: #### H EPATIC, CBC, BMP, LIPASE #### [address] Glucose Ql (U) 200 mg/dL High Normal [facility] Comment on above: Order Comment: Name Collection Type:: Clean-Voided Midstream Performed By: #### H EPATIC, CBC, BMP, LIPASE #### [address] Ketones Ql (U) 4+ High Negative [facility] Comment on above: Order Comment: Name Collection Type:: Clean-Voided Midstream Performed By: #### H EPATIC, CBC, BMP, LIPASE #### [address] Leukocyte esterase Test strip Ql (U) Negative Normal Negative [facility] Comment on above: Order Comment: Name Collection Type:: Clean-Voided Midstream Performed By: #### H EPATIC, CBC, BMP, LIPASE #### [address] Nitrite,Urine Negative Normal Negative [facility] Comment on above: Order Comment: Name Collection Type:: Clean-Voided Midstream Performed By: #### H EPATIC, CBC, BMP, LIPASE #### [address] Occult Blood,Urine Negative Normal Negative [facility] Comment on above: Order Comment: Name Collection Type:: Clean-Voided Midstream Result Comment: PERF ORMED BY: [place] [address] PATHOLOGIST PATIENT EXPERIENCE COORDINATOR SARAH ANDREWS M.D. Performed By: #### H EPATIC, CBC, BMP, LIPASE #### [address] pH (U) 8.0 [pH] Normal 5.0-9.0 [facility] Comment on above: Order Comment: Name Collection Type:: Clean-Voided Midstream Performed By: #### H EPATIC, CBC, BMP, LIPASE #### [address] Protein,Urine Negative Normal Negative [facility] Comment on above: Order Comment: Name Collection Type:: Clean-Voided Midstream Performed By: #### H EPATIC, CBC, BMP, LIPASE #### [facility] [address] Specificy [place],Urine 1.020 Normal 1.001-1.03 0 [facility] Comment on above: Order Comment: Name Collection Type:: Clean-Voided Midstream Performed By: #### H EPATIC, CBC, BMP, LIPASE #### [facility] [address] Urobilinogen,Urine Normal Normal Normal [facility] Comment on above: Order Comment: Name Collection Type:: Clean-Voided Midstream Performed By: #### H EPATIC, CBC, BMP, LIPASE #### [facility] [address] [place] [address] Urobilinogen Test strip (U) [Mass/Vol]Ordered By: Mateo Navas on 06-07-2024 Urobilinogen (U) [Mass/Vol] Urobilinogen [Mass/volume] in Urine by Test strip Normal [facility] WBC Auto (Bld) [#/Vol]Ordere d By: Mateo Navas on 06-07-2024 WBC (Bld) [#/Vol] Leukocytes [#/volume ] in Blood by Automated count High 3.8-11.6 [facility] pH Test strip (U)Ordered By: Mateo Navas on 06-07-2024 pH (U) pH of Urine by Test strip 5.0-9.0 [facility] IGP,APTIMA HPV,AGE GDLNon AGE GDLN ACOG TESTING Note . [facility] Comment on above: TESTS RESULT FLAG UN ITS REF RANGE LAB Clinician Provided Cytology Information Source.............Cervix No. of containers..01 ThinPrep Vial Age Izabela BYNUM Katharina... 28 01 FLAG LEGEND: L-Low Normal,H-High Normal,LL-Alert Low,HH-Alert High <-Panic Low,>-Panic High,A-Abnormal,AA-Critical Abnormal Performed at: 01 =[address] [id number] Naina Arthur MD, HPV APTIMA Negative Negative [facility] Comment on above: This nucleic acid am plification test detects fourteen high- risk HPV types (16,18,31,33,35,39,45,51,52,56,58,59,66,68) without differentiation. Performed at: =[address] [id number] Formula Weigher: Naina Arthur MD, Phone: [phone] Performed at: [address] [id number] Formula Weigher: Naina Arthur MD, Phone: [phone] IGP, APTIMA HPV, RFX 16/18,45 Note . [facility] Comment on above: TESTS RESULT FLAG UN ITS REF RANGE LAB DIAGNOSIS: 02 NEGATIVE FOR INTRAEPITHELIAL LESION OR MALIGNANCY. THIS SPECIMEN WAS RESCREENED PART OF OUR LUBRICATION TECHNICIAN PROGRAM. Specimen adequacy: 02 Satisfactory for evaluation. No endocervical component is identified. Performed by: 02 Yakelin Ramey, Finished Cloth Examiner (ASCP) QC reviewed by: 02 Nash Guerra Finished Cloth Examiner (ASCP) . 02 Note: Note 02 The [...] <-Panic Low,>-Panic High,A-Abnormal,AA-Critical Abnormal Performed at: [address] [phone] Naina Arthur MD, SPATULA-ALONE CERVIX [facility] US OB 14+ WEEKS ANATOMY SCAN [...] II, MD, PHD at 13-Jun-2024 09:57:02 AM [facility] Normal Not Available Comment on above: [...] Negative Negative - 2000(110) ++++ mg/dL [facility] Interpretation and review of laboratory results Abnormal [facility] Ketones, UA Negative Negative - 160(16) ++++ mg/dL [facility] Leukocytes, UA Negative Negative - 500+++ Archana/mcL [facility] Nitrite, UA Negative Negative - Positive [facility] pH, UA 7 5 - 9 [facility] Protein, UA Trace Negative - 2000(20) ++++ mg/dL [facility] Spec Grav, UA 1.025 1 - 1.03 [facility] Urobilinogen, UA 0.2 0.2 - 12 mg/dL [facility] Alanine aminotransferase [En zymatic activity/volume] in Serum or PlasmaOrdered By: Glenn Abdullahi on 05-19-2024 ALT [Catalytic activity/Vol] Alanine aminotransferase [Enzymatic activity/volume] in Serum or Plasma 7-52 [facility] Albumin [Mass/volume] in Ser um or Plasma by Bromocresol green (BCG) dye binding methoOrdered By: Glenn Abdullahi on 05-19-2024 Albumin BCG dye [Mass/Vol] Albumin [Mass/volume] in Serum or Plasma by Bromocresol green (BCG) dye binding metho 3.5-5.7 [facility] Alkaline phosphatase [Enzyma tic activity/volume] in Serum or PlasmaOrdered By: Glenn Abdullahi on 05-19-2024 ALP [Catalytic activity/Vol] Alkaline phosphatase [Enzymatic activity/volume] in Serum or Plasma 34-104 [facility] Amphetamine Screen Ql (U)Ord ered By: Glenn Abdullahi on 05-19-2024 Amphetamines Ql (U) Amphetamines screen Negativ e [facility] Appearance of UrineOrdered B y: Glenn Abdullahi on 05-19-2024 Appearance (U) Urine appearance Abnormal Clear [facility] Aspartate aminotransferase [ Enzymatic activity/volume] in Serum or PlasmaOrdered By: Glenn Abdullahi on 05-19-2024 AST [Catalytic activity/Vol] Aspartate aminotransferase [Enzymatic activity/volume] in Serum or Plasma Low 13-39 [facility] Bacteria [Presence] in Urine by AutomatedOrdered By: Gelnn Abdullahi on 05-19-2024 Bacteria Auto Ql (U) Bacteria [Presence] in Urine by Automated None Seen [facility] Barbiturates [Presence] in U rine by Screen methodOrdered By: Glenn Abdullahi on 05-19-2024 Barbiturates Screen Ql (U) Barbiturates [Presence] in Urine by Screen method Negative [facility] Basophils Auto (Bld) [#/Vol] Ordered By: Glenn Abdullahi on 05-19-2024 Basophils (Bld) [#/Vol] Automated basophil count 0.0-0.2 [facility] Basophils/100 WBC Auto (Bld) Ordered By: Glenn Abdullahi on 05-19-2024 Basophils/100 WBC (Bld) Automated basophil % . [facility] Benzodiazepines Screen Ql (U )Ordered By: Glenn Abdullahi on 05-19-2024 Benzodiazepines Ql (U) Benzodiazepines [Presence] in Urine by Screen method Negative [facility] Benzoylecgonine [Presence] i n Urine by Screen methodOrdered By: Glenn Abdullahi on 05-19-2024 Benzoylecgonine Screen Ql (U) Benzoylecgonine [Presence] in Urine by Screen method Negative [facility] Bilirubin Test strip Ql (U)O rdered By: Glenn Abdullahi on 05-19-2024 Bilirubin Ql (U) Bilirubin.total [Pre sence] in Urine by Test strip Negative [facility] Bilirubin.direct [Mass/volum e] in Serum or PlasmaOrdered By: Glenn Abdullahi on 05-19-2024 Bilirubin.direct [Mass/Vol] Bilirubin.direct [Mass/volume] in Serum or Plasma Low 0.03-0.18 [facility] Comment on above: If the DBIL is less than 0.1, IBIL is not able to becalculated. Bilirubin.total [Mass/volume ] in Serum or PlasmaOrdered By: Glenn Abdullahi on 05-19-2024 Bilirubin [Mass/Vol] Bilirubin.total [Mass/volume] in Serum or Plasma 0.3-1.0 [facility] Calcium [Mass/volume] in Ser um or PlasmaOrdered By: Glenn Abdullahi on 05-19-2024 Calcium [Mass/Vol] Calcium [Mass/volume ] in Serum or Plasma 8.6-10.3 [facility] Cannabinoids [Presence] in U rine by Screen methodOrdered By: Glenn Abdullahi on 05-19-2024 Cannabinoids Screen Ql (U) Cannabinoids [Presence] in Urine by Screen method High Negative [facility] Comment on above: These are unconfirme d [...] [Moles/volume] in Serum or Plasma Low 21.0-31.0 [facility] Chloride [Moles/volume] in S mayte or PlasmaOrdered By: Glenn Abdullahi on 05-19-2024 Chloride [Moles/Vol] Chloride [Moles/vol ume] in Serum or Plasma 98-107 [facility] Choriogonadotropin.beta subu nit [Units/volume] in Serum or PlasmaOrdered By: Glenn Abdullahi on 05-19-2024 HCG.beta subunit Qn Choriogonadotropin.b eta subunit [Units/volume] in Serum or Plasma [facility] Comment on above: Approximate Approxim ate hCG Gestational Age Range (mIU/ml) (weeks)0.2-1 5-50 1-2 50-500 2-3 100-5,000 3-4 500-10,000 4-5 1,000-50,000 5-6 10,000-100,000 6-8 15,000-200,000 8-12 10,000-100,000 Color Auto (U)Ordered By: Toro Abdullahi on 05-19-2024 Color (U) Color of Urine by Auto Abnormal Yellow Fi [facility] Complete Blood Count Auto Di ffon 05-19-2024 Basophils (Bld) [#/Vol] 0.1 10*3/uL Normal 0.0-0.2 [facility] Comment on above: Result Comment: PERF ORMED BY: [place] [address] PATHOLOGIST PATIENT EXPERIENCE COORDINATOR SARAH ANDREWS M.D. Performed By: #### H EPATIC, CBC, BMP, LIPASE #### [address] Basophils/100 WBC (Bld) 1.4 % Normal . [facility] Comment on above: Performed By: #### H EPATIC, CBC, BMP, LIPASE #### [address] Eosinophils (Bld) [#/Vol] 0.0 10*3/uL Normal 0.0-0.45 [facility] Comment on above: Performed By: #### H EPATIC, CBC, BMP, LIPASE #### [address] Eosinophils/100 WBC (Bld) 0.3 % Normal . [facility] Comment on above: Performed By: #### H EPATIC, CBC, BMP, LIPASE #### [address] Erythrocyte distribution width (RBC) [Ratio] 13.7 % Normal 11.9-15.3 [facility] Comment on above: Performed By: #### H EPATIC, CBC, BMP, LIPASE #### [address] Hematocrit (Bld) [Volume fraction] 33.1 % Low 34.0-46.4 [facility] Comment on above: Performed By: #### H EPATIC, CBC, BMP, LIPASE #### [address] Hemoglobin (Bld) [Mass/Vol] 11.6 g/dL Low 11.8-15.4 [facility] Comment on above: Performed By: #### H EPATIC, CBC, BMP, LIPASE #### [address] Lymphocytes (Bld) [#/Vol] 1.3 10*3/uL Normal 1.00-4.8 [facility] Comment on above: Performed By: #### H EPATIC, CBC, BMP, LIPASE #### [address] Lymphocytes/100 WBC (Bld) 14.1 % Normal . [facility] Comment on above: Performed By: #### H EPATIC, CBC, BMP, LIPASE #### [address] MCH (RBC) [Entitic mass] 30.0 pg Normal 24.7-34.3 [facility] Comment on above: Performed By: #### H EPATIC, CBC, BMP, LIPASE #### [address] MCV (RBC) [Entitic vol] 85.6 fL Normal 80-100 [facility] Comment on above: Performed By: #### H EPATIC, CBC, BMP, LIPASE #### [address] Mean Corpuscular HGB Conc 35.0 g/dL Normal 32.0-35.0 [facility] Comment on above: Performed By: #### H EPATIC, CBC, BMP, LIPASE #### [address] Monocytes (Bld) [#/Vol] 0.4 10*3/uL Normal 0.0-0.8 [facility] Comment on above: Performed By: #### H EPATIC, CBC, BMP, LIPASE #### [address] Monocytes/100 WBC (Bld) 15.92 % Normal 0.00-20.00 [facility] Comment on above: Performed By: #### H EPATIC, CBC, BMP, LIPASE #### [address] Monocytes/100 WBC (Bld) 4.2 % Normal . [facility] Comment on above: Performed By: #### H EPATIC, CBC, BMP, LIPASE #### [address] Neutrophils (Bld) [#/Vol] 7.1 10*3/uL Normal 1.8-7.7 [facility] Comment on above: Performed By: #### H EPATIC, CBC, BMP, LIPASE #### [address] Neutrophils/100 WBC (Bld) 80.0 % Normal . [facility] Comment on above: Performed By: #### H EPATIC, CBC, BMP, LIPASE #### [address] NRBC% 0.1 /100{WBC} Normal 0-0.5 [facility] Comment on above: Performed By: #### H EPATIC, CBC, BMP, LIPASE #### [address] Platelet mean volume (Bld) [Entitic vol] 11.0 fL High 6.3-10.7 [facility] Comment on above: Performed By: #### H EPATIC, CBC, BMP, LIPASE #### [address] Platelets (Bld) [#/Vol] 161 10*3/uL Normal 150-450 [facility] Comment on above: Performed By: #### H EPATIC, CBC, BMP, LIPASE #### [address] RBC (Bld) [#/Vol] 3.87 10*6/uL Normal 3.60-5.[address] [facility] Comment on above: Performed By: #### H EPATIC, CBC, BMP, LIPASE #### [address] WBC (Bld) [#/Vol] 8.9 10*3/uL Normal 3.8-11.6 [facility] Comment on above: Performed By: #### H EPATIC, CBC, BMP, LIPASE #### [address] Comprehensive Metabolic Pane blanquita 05-19-2024 Albumin [Mass/Vol] 3.8 g/dL Normal 3.5-5.7 [facility] Comment on above: Performed By: #### H EPATIC, CBC, BMP, LIPASE #### [address] Albumin/Globulin [Mass ratio] 1.3 {ratio} Normal [facility] Comment on above: Performed By: #### H EPATIC, CBC, BMP, LIPASE #### [address] ALP [Catalytic activity/Vol] 38 U/L Normal 34-104 [facility] Comment on above: Performed By: #### H EPATIC, CBC, BMP, LIPASE #### [address] ALT [Catalytic activity/Vol] 8 U/L Normal 7-52 [facility] Comment on above: Performed By: #### H EPATIC, CBC, BMP, LIPASE #### [address] Anion gap [Moles/Vol] 13.4 mmol/L Normal 6.0-15.0 [facility] Comment on above: Performed By: #### H EPATIC, CBC, BMP, LIPASE #### [address] AST [Catalytic activity/Vol] 10 U/L Low 13-39 [facility] Comment on above: Performed By: #### H EPATIC, CBC, BMP, LIPASE #### [address] Bilirubin [Mass/Vol] 0.3 mg/dL Normal 0.3-1.0 [facility] Comment on above: Performed By: #### H EPATIC, CBC, BMP, LIPASE #### [address] Calcium [Mass/Vol] 9.3 mg/dL Normal 8.6-10.3 [facility] Comment on above: Performed By: #### H EPATIC, CBC, BMP, LIPASE #### [place] [address] [place] Chloride [Moles/Vol] 107 mmol/L Normal 98-107 [facility] Comment on above: Performed By: #### H EPATIC, CBC, BMP, LIPASE #### [address] CO2 [Moles/Vol] 18.9 mmol/L Low 21.0-31.0 [facility] Comment on above: Performed By: #### H EPATIC, CBC, BMP, LIPASE #### [facility] [address] Creatinine [Mass/Vol] 0.53 mg/dL Low 0.60-1.20 [facility] Comment on above: Performed By: #### H EPATIC, CBC, BMP, LIPASE #### [facility] [address] Creatinine Clr Calc Pharmacy 143.53 Normal [facility] Comment on above: Performed By: #### H EPATIC, CBC, BMP, LIPASE #### [facility] [address] GFR/1.73 sq M.predicted MDRD (S/P/Bld) [Vol rate/Area] mL/min/{1.73_m2} Normal [facility] Comment on above: Performed By: #### H EPATIC, CBC, BMP, LIPASE #### [facility] [address] Globulin (S) [Mass/Vol] 2.9 g/dL Normal [facility] Comment on above: Performed By: #### H EPATIC, CBC, BMP, LIPASE #### [facility] [address] Glucose [Mass/Vol] 135 mg/dL High 70-100 [facility] Comment on above: Result Comment: [facility] Glucose Reference Range is dependent on time and content of last meal. Glucose of more than 200 mg/dL in a nonstressed, ambulatory subject supports the diagnosis of Diabetes Mellitus. ADA recommended reference range Performed By: #### H EPATIC, CBC, BMP, LIPASE #### [facility] [address] Potassium [Moles/Vol] 3.3 mmol/L Low 3.5-5.1 [facility] Comment on above: Performed By: #### H EPATIC, CBC, BMP, LIPASE #### [facility] [address] Protein [Mass/Vol] 6.7 g/dL Normal 6.4-8.9 [facility] Comment on above: Performed By: #### H EPATIC, CBC, BMP, LIPASE #### [address] Sodium [Moles/Vol] 136 mmol/L Normal 136-145 [facility] Comment on above: Performed By: #### H EPATIC, CBC, BMP, LIPASE #### [address] Urea nitrogen [Mass/Vol] 8 mg/dL Normal 7-25 [facility] Comment on above: Performed By: #### H EPATIC, CBC, BMP, LIPASE #### [place] [address] [place] Creatinine [Mass/volume] in Serum or PlasmaOrdered By: Glenn Abdullahi on 05-19-2024 Creatinine [Mass/Vol] Creatinine [Mass/v olume] in Serum or Plasma Low 0.60-1.20 [facility] Dipstick and Microscopicon 0 05-19-2024 Appearance (U) Turbid Critically abnormal Clear [facility] Comment on above: Order Comment: Name Collection Type:: Clean-Voided Midstream Performed By: #### H EPATIC, CBC, BMP, LIPASE #### [address] Bacteria,Urine None Seen Normal None Seen [facility] Comment on above: Order Comment: Name Collection Type:: Clean-Voided Midstream Performed By: #### H EPATIC, CBC, BMP, LIPASE #### [place] [address] [place] Bilirubin,Urine Negative Normal Negative [facility] Comment on above: Order Comment: Name Collection Type:: Clean-Voided Midstream Performed By: #### H EPATIC, CBC, BMP, LIPASE #### [place] [address] [place] Color (U) [place] Critically abnormal Yellow [facility] Comment on above: Order Comment: Name Collection Type:: Clean-Voided Midstream Performed By: #### H EPATIC, CBC, BMP, LIPASE #### [facility] [address] Glucose Ql (U) Normal Normal Normal [facility] Comment on above: Order Comment: Name Collection Type:: Clean-Voided Midstream Performed By: #### H EPATIC, CBC, BMP, LIPASE #### [facility] [address] Hyaline Casts,Urine None Normal 0-8 [facility] Comment on above: Order Comment: Name Collection Type:: Clean-Voided Midstream Performed By: #### H EPATIC, CBC, BMP, LIPASE #### [address] Ketones Ql (U) 2+ High Negative [facility] Comment on above: Order Comment: Name Collection Type:: Clean-Voided Midstream Performed By: #### H EPATIC, CBC, BMP, LIPASE #### [address] Leukocyte esterase Test strip Ql (U) Negative Normal Negative [facility] Comment on above: Order Comment: Name Collection Type:: Clean-Voided Midstream Performed By: #### H EPATIC, CBC, BMP, LIPASE #### [address] Mucus,Urine Rare Normal [facility] Comment on above: Order Comment: Name Collection Type:: Clean-Voided Midstream Result Comment: PERF ORMED BY: [place] [address] PATHOLOGIST PATIENT EXPERIENCE COORDINATOR SARAH ANDREWS M.D. Performed By: #### H EPATIC, CBC, BMP, LIPASE #### [address] Nitrite,Urine Negative Normal Negative [facility] Comment on above: Order Comment: Name Collection Type:: Clean-Voided Midstream Performed By: #### H EPATIC, CBC, BMP, LIPASE #### [address] Occult Blood,Urine Negative Normal Negative [facility] Comment on above: Order Comment: Name Collection Type:: Clean-Voided Midstream Result Comment: PERF ORMED BY: [place] [address] PATHOLOGIST PATIENT EXPERIENCE COORDINATOR SARAH ANDREWS M.D. Performed By: #### H EPATIC, CBC, BMP, LIPASE #### [address] pH (U) 8.0 [pH] Normal 5.0-9.0 [facility] Comment on above: Order Comment: Name Collection Type:: Clean-Voided Midstream Performed By: #### H EPATIC, CBC, BMP, LIPASE #### [address] Protein,Urine Negative Normal Negative [facility] Comment on above: Order Comment: Name Collection Type:: Clean-Voided Midstream Performed By: #### H EPATIC, CBC, BMP, LIPASE #### [address] RBC,Urine 3-4 Normal 0-4 [facility] Comment on above: Order Comment: Name Collection Type:: Clean-Voided Midstream Performed By: #### H EPATIC, CBC, BMP, LIPASE #### [address] Specificy [place],Urine 1.014 Normal 1.001-1.03 0 [facility] Comment on above: Order Comment: Name Collection Type:: Clean-Voided Midstream Performed By: #### H EPATIC, CBC, BMP, LIPASE #### [address] Squamous Epithelial Cell,Urine 1-2 Normal 0-2 [facility] Comment on above: Order Comment: Name Collection Type:: Clean-Voided Midstream Performed By: #### H EPATIC, CBC, BMP, LIPASE #### [address] Urobilinogen,Urine Normal Normal Normal [facility] Comment on above: Order Comment: Name Collection Type:: Clean-Voided Midstream Performed By: #### H EPATIC, CBC, BMP, LIPASE #### [address] WBC,Urine None Seen Normal 0-4 [facility] Comment on above: Order Comment: Name Collection Type:: Clean-Voided Midstream Performed By: #### H EPATIC, CBC, BMP, LIPASE #### [address] Drug Screen,Urineon 05-19-19 25 Amphetamine Screen,Urine Negative Normal Negative [facility] Comment on above: Performed By: #### H EPATIC, CBC, BMP, LIPASE #### [address] Barbiturate Screen,Urine Negative Normal Negative [facility] Comment on above: Performed By: #### H EPATIC, CBC, BMP, LIPASE #### [address] Benzodiazepines Screen,Urine Negative Normal Negative [facility] Comment on above: Performed By: #### H EPATIC, CBC, BMP, LIPASE #### [address] Cannabinoid Screen,Urine Positive High Negative [facility] Comment on above: Result Comment: Thes e are unconfirmed results and should not be used for legal purposes. Drug Cut-Off Concentration: AMPH 1000 ng/mL DENIS 200 ng/mL DIOR 200 ng/mL COCM 300 ng/mL OP 300 ng/mL PCP 25 ng/mL THC 20 ng/mL PERFORMED BY: [place] [address] PATHOLOGIST PATIENT EXPERIENCE COORDINATOR SARAH ANDREWS M.D. Performed By: #### H EPATIC, CBC, BMP, LIPASE #### [address] Cocaine Screen,Urine Negative Normal Negative [facility] Comment on above: Performed By: #### H EPATIC, CBC, BMP, LIPASE #### [address] Opiate Screen,Urine Negative Normal Negative [facility] Comment on above: Performed By: #### H EPATIC, CBC, BMP, LIPASE #### [facility] [address] Phencyclidine Screen,Urine Negative Normal Negative [facility] Comment on above: Performed By: #### H EPATIC, CBC, BMP, LIPASE #### [facility] [address] [place] [address] [place] Eosinophils Auto (Bld) [#/Vo l]Ordered By: Glenn Abdullahi on 05-19-2024 Eosinophils (Bld) [#/Vol] Automated eosinophil count 0.0-0.45 [facility] Eosinophils/100 WBC Auto (Bl d)Ordered By: Glenn Abdullahi on 05-19-2024 Eosinophils/100 WBC (Bld) Automated eosinophil % . [facility] Epithelial cells.squamous [# /area] in Urine sediment by Automated countOrdered By: Glenn Abdullahi on 05-19-2024 Epithelial cells.squamous Auto (Urine sed) [#/Area] Epithelial cells.squamous [#/area] in Urine sediment by Automated count 0-2 [facility] Erythrocyte distribution wid th Auto (RBC) [Ratio]Ordered By: Glenn Abdullahi on 05-19-2024 Erythrocyte distribution width (RBC) [Ratio] Erythrocyte distribution width [Ratio] by Automated count 11.9-15.3 [facility] Erythrocytes [#/area] in Uri ne sediment by Automated countOrdered By: Glenn Abdullahi on 05-19-2024 RBC Auto (Urine sed) [#/Area] Erythrocytes [#/area] in Urine sediment by Automated count 0-4 [facility] Globulin Calc (S) [Mass/Vol] Ordered By: Glenn Abdullahi on 05-19-2024 Globulin (S) [Mass/Vol] Serum globulin measurement by calculation (mass/volume) [facility] Glucose [Mass/volume] in Ser um or PlasmaOrdered By: Glenn Abdullahi on 05-19-2024 Glucose [Mass/Vol] Glucose [Mass/volume ] in Serum or Plasma High 70-100 [facility] Comment on above: ADA recommended refe rence rangeRandom Glucose Reference Range is dependent on time and content of last meal. Glucose of more than 200 mg/dL in a nonstressed, ambulatory subject supports the diagnosis of Diabetes Mellitus. Glucose [Mass/volume] in Uri ne by Test stripOrdered By: Glenn Abdullahi on 05-19-2024 Glucose Test strip (U) [Mass/Vol] Glucose [Mass/volume] in Urine by Test strip Normal [facility] HCG,Quantitativeon HCG,Quantitative 14197.00 m[iU]/mL Normal [facility] Comment on above: Result Comment: Appr oximate Approximate hCG Gestational Age Range (mIU/ml) (weeks) 0.2-1 5-50 1-2 50-500 2-3 100-5,000 3-4 500-10,000 4-5 1,000-50,000 5-6 10,000-100,000 6-8 15,000-200,000 8-12 10,000-100,000 PERFORMED BY: [place] [address] PATHOLOGIST PATIENT EXPERIENCE COORDINATOR SARAH ANDREWS M.D. Performed By: #### H EPATIC, CBC, BMP, LIPASE #### [facility] [address] [place] [address] Hematocrit Auto (Bld) [Volum e fraction]Ordered By: Glenn Abdullahi on 05-19-2024 Hematocrit (Bld) [Volume fraction] Hematocrit [Volume Fraction] of Blood by Automated count Low 34.0-46.4 [facility] Hemoglobin Test strip Ql (U) Ordered By: Glenn Abdullahi on 05-19-2024 Hemoglobin Ql (U) Hemoglobin [Presence ] in Urine by Test strip Negative [facility] Hemoglobin [Mass/volume] in BloodOrdered By: Glenn bAdullahi on 05-19-2024 Hemoglobin (Bld) [Mass/Vol] Hemoglobin [Mass/volume] in Blood Low 11.8-15.4 [facility] Hepatic Panelon 05-19-2024 Bilirubin,Indirect 0.3 mg/dL Normal [facility] Comment on above: Performed By: #### H EPATIC, CBC, BMP, LIPASE #### [facility] [address] [place] [address] Bilirubin.indirect [Mass/Vol] 0.00 mg/dL Low 0.03-0.18 [facility] Comment on above: Result Comment: If t he DBIL is less than 0.1, IBIL is not able to be calculated. Performed By: #### H EPATIC, CBC, BMP, LIPASE #### [facility] [address] [place] [address] Hyaline casts [#/area] in Ur ine sediment by Automated countOrdered By: Glenn Abdullahi on 05-19-2024 Hyaline casts Auto (Urine sed) [#/Area] Hyaline casts [#/area] in Urine sediment by Automated count 0-8 [facility] Ketones Test strip Ql (U)Ord ered By: Glenn Abdullahi on 05-19-2024 Ketones Ql (U) Ketones [Presence] i n Urine by Test strip High Negative [facility] Leukocyte esterase [Presence ] in Urine by Test stripOrdered By: Glenn Abdullahi on 05-19-2024 Leukocyte esterase Test strip Ql (U) Leukocyte esterase [Presence] in Urine by Test strip Negative [facility] Leukocytes [#/area] in Urine sediment by Automated countOrdered By: Glenn Abdullahi on 05-19-2024 WBC Auto (Urine sed) [#/Area] Leukocytes [#/area] in Urine sediment by Automated count 0-4 [facility] Leukocytes [#/volume] correc rossy for nucleated erythrocytes in Blood by Automated counOrdered By: Glenn Abdullahi on 05-19-2024 WBC corrected for nucl RBC Auto (Bld) [#/Vol] Leukocytes [#/volume] corrected for nucleated erythrocytes in Blood by Automated coun 3.8-11.6 [facility] Lipaseon 05-19-2024 Lipase [Catalytic activity/Vol] 20.0 U/L Normal 11.0-82.0 [facility] Comment on above: Performed By: #### H EPATIC, CBC, BMP, LIPASE #### [address] Lipase [Enzymatic activity/v olume] in Serum or PlasmaOrdered By: Glenn Abdullahi on 05-19-2024 Lipase [Catalytic activity/Vol] Lipase [Enzymatic activity/volume] in Serum or Plasma 11.0-82.0 [facility] Lymphocytes Auto (Bld) [#/Vo l]Ordered By: Glenn Abdullahi on 05-19-2024 Lymphocytes (Bld) [#/Vol] Lymphocytes [#/volume] in Blood by Automated count 1.00-4.8 [facility] Lymphocytes/100 WBC Auto (Bl d)Ordered By: Glenn Abdullahi on 05-19-2024 Lymphocytes/100 WBC (Bld) Lymphocytes/100 leukocytes in Blood by Automated count . [facility] MCH Auto (RBC) [Entitic mass ]Ordered By: Glenn Abdullahi on 05-19-2024 MCH (RBC) [Entitic mass] MCH [Entitic mass] by Automated count 24.7-34.3 [facility] MCHC Auto (RBC) [Mass/Vol]Or dered By: Glenn Abdullahi on 05-19-2024 MCHC (RBC) [Mass/Vol] MCHC [Mass/volume] by Automated count 32.0-35.0 [facility] MCV Auto (RBC) [Entitic vol] Ordered By: Glenn Abdullahi on 05-19-2024 MCV (RBC) [Entitic vol] MCV [Entitic volume] by Automated count 80-100 [facility] Magnesiumon 05-19-2024 Magnesium [Mass/Vol] 1.4 mg/dL Low 1.9-2.7 [facility] Comment on above: Performed By: #### H EPATIC, CBC, BMP, LIPASE #### [address] Magnesium [Mass/volume] in S mayte or PlasmaOrdered By: Glenn Abdullahi on 05-19-2024 Magnesium [Mass/Vol] Magnesium [Mass/vol ume] in Serum or Plasma Low 1.9-2.7 [facility] Monocyte distribution width [Entitic volume] in Blood by AutomatedOrdered By: Glenn Abdullahi on 05-19-2024 Monocyte distribution width Auto (Bld) [Entitic vol] Monocyte distribution width [Entitic volume] in Blood by Automated 0.00-20.00 [facility] Monocytes Auto (Bld) [#/Vol] Ordered By: Glenn Abdullahi on 05-19-2024 Monocytes (Bld) [#/Vol] Automated blood monocyte count 0.0-0.8 [facility] [facility] Mon[facility]/100 WBC Auto (Bld) Ordered By: Glenn Abdullahi on 05-19-2024 Monocytes/100 WBC (Bld) Automated monocyte % . [facility] Mucus [Presence] in Urine by AutomatedOrdered By: Glenn Abdullahi on 05-19-2024 Mucus Auto Ql (U) Mucus [Presence] in Urine by Automated [facility] Neutrophils Auto (Bld) [#/Vo l]Ordered By: Glenn Abdullahi on 05-19-2024 Neutrophils (Bld) [#/Vol] Neutrophils [#/volume] in Blood by Automated count 1.8-7.7 [facility] Neutrophils/100 WBC Auto (Bl d)Ordered By: Glenn Abdullahi on 05-19-2024 Neutrophils/100 WBC (Bld) Automated neutrophil % . [facility] Nitrite Test strip Ql (U)Ord ered By: Glenn Abdullahi on 05-19-2024 Nitrite Ql (U) Nitrite [Presence] i n Urine by Test strip Negative [facility] No Panel InformationOrdered By: Glenn Abdullahi on 05-19-2024 Estimated GFR (CKD-EPI) > 60.0 mL/Min [facility] Creatinine Clearance (Chem 143.53 [facility] Nucleated erythrocytes [Pres ence] in Blood by Automated countOrdered By: Glenn Abdullahi on 05-19-2024 Nucleated RBC Auto Ql (Bld) Nucleated erythrocytes [Presence] in Blood by Automated count 0-0.5 [facility] Opiates [Presence] in Urine by Screen methodOrdered By: Glenn Abdullahi on 05-19-2024 Opiates Screen Ql (U) Opiates [Presence] in Urine by Screen method Negative [facility] Phencyclidine Screen Ql (U)O rdered By: Glenn Abdullahi on 05-19-2024 Phencyclidine Ql (U) Phencyclidine [Pres ence] in Urine by Screen method Negative [facility] Platelet mean volume Auto (B ld) [Entitic vol]Ordered By: Glenn Abdullahi on 05-19-2024 Platelet mean volume (Bld) [Entitic vol] Platelet mean volume [Entitic volume] in Blood by Automated count High 6.3-10.7 [facility] Platelets Auto (Bld) [#/Vol] Ordered By: Glenn Abdullahi on 05-19-2024 Platelets (Bld) [#/Vol] Platelets [#/volume] in Blood by Automated count 150-450 [facility] Potassium [Moles/volume] in Serum or PlasmaOrdered By: Glenn Abdullahi on 05-19-2024 Potassium [Moles/Vol] Potassium [Moles/v olume] in Serum or Plasma Low 3.5-5.1 [facility] Protein Test strip (U) [Mass /Vol]Ordered By: Glenn Abdullahi on 05-19-2024 Protein (U) [Mass/Vol] Protein [Mass/volume] in Urine by Test strip Negative [facility] Protein [Mass/volume] in Ser um or PlasmaOrdered By: Glenn Abdullahi on 05-19-2024 Protein [Mass/Vol] Protein [Mass/volume ] in Serum or Plasma 6.4-8.9 [facility] RBC Auto (Bld) [#/Vol]Ordere d By: Glenn Abdullahi on 05-19-2024 RBC (Bld) [#/Vol] Erythrocytes [#/volu me] in Blood by Automated count 3.60-5.00 [facility] Serum or plasma albumin/glob ulin mass ratioOrdered By: Glenn Abdullahi 05-19-2024 Albumin/Globulin [Mass ratio] Serum or plasma albumin/globulin mass ratio [facility] Serum or plasma anion gap de terminationOrdered By: Glenn Abdullahi 05-19-2024 Anion gap [Moles/Vol] Serum or plasma an ion gap determination 6.0-15.0 [facility] Serum or plasma non-glucuron idated bilirubin measurement (mass/volume)Ordered By: Glenn Abdullahi on 05-19-2024 Bilirubin.indirect [Mass/Vol] Serum or plasma non-glucuronidated bilirubin measurement (mass/volume) [facility] Sodium [Moles/volume] in Ser um or PlasmaOrdered By: Glenn Abdullahi 05-19-2024 Sodium [Moles/Vol] Sodium [Moles/volume ] in Serum or Plasma 136-145 [facility] Specific gravity Test strip (U) [Rel density]Ordered By: Glenn Abdullahi on 05-19-2024 Specific gravity (U) [Rel density] Specific gravity of Urine by Test strip 1.001-1.03 0 [facility] Urea nitrogen [Mass/volume] in Serum or PlasmaOrdered By: Glenn Abdullahi on 05-19-2024 Urea nitrogen [Mass/Vol] Urea nitrogen [Mass/volume] in Serum or Plasma 10-13 [facility] Urobilinogen Test strip (U) [Mass/Vol]Ordered By: Glenn Abdullahi on 05-19-2024 Urobilinogen (U) [Mass/Vol] Urobilinogen [Mass/volume] in Urine by Test strip Normal [facility] WBC Auto (Bld) [#/Vol]Ordere d By: Glenn Abdullahi on 05-19-2024 WBC (Bld) [#/Vol] Leukocytes [#/volume ] in Blood by Automated count 3.8-11.6 [facility] pH Test strip (U)Ordered By: Glenn Abdullahi on 05-19-2024 pH (U) pH of Urine by Test strip 5.0-9.0 [facility] Alanine aminotransferase [En zymatic activity/volume] in Serum or PlasmaOrdered By: Glenn Abdullahi on 05-16-2024 ALT [Catalytic activity/Vol] Alanine aminotransferase [Enzymatic activity/volume] in Serum or Plasma [facility] Albumin [Mass/volume] in Ser um or Plasma by Bromocresol green (BCG) dye binding methoOrdered By: Glenn Abdullahi on 05-16-2024 Albumin BCG dye [Mass/Vol] Albumin [Mass/volume] in Serum or Plasma by Bromocresol green (BCG) dye binding metho 3.5-5.7 [facility] Alkaline phosphatase [Enzyma tic activity/volume] in Serum or PlasmaOrdered By: Glenn Abdullahi on 05-16-2024 ALP [Catalytic activity/Vol] Alkaline phosphatase [Enzymatic activity/volume] in Serum or Plasma 34-104 [facility] Appearance of UrineOrdered B y: Glenn Abdullahi on 02-25-2025 Appearance (U) Urine appearance Clear [facility] Aspartate aminotransferase [ Enzymatic activity/volume] in Serum or PlasmaOrdered By: Glenn Abdullahi on 05-16-2024 AST [Catalytic activity/Vol] Aspartate aminotransferase [Enzymatic activity/volume] in Serum or Plasma 13-39 [facility] Basophils Auto (Bld) [#/Vol] Ordered By: Glenn Abdullahi on 05-16-2024 Basophils (Bld) [#/Vol] Automated basophil count 0.0-0.2 [facility] Basophils/100 WBC Auto (Bld) Ordered By: Glenn Abdullahi on 05-16-2024 Basophils/100 WBC (Bld) Automated basophil % . [facility] Bilirubin Test strip Ql (U)O rdered By: Glenn Abdullahi on 05-16-2024 Bilirubin Ql (U) Bilirubin.total [Pre sence] in Urine by Test strip Negative [facility] Bilirubin.direct [Mass/volum e] in Serum or PlasmaOrdered By: Glenn Abdullahi on 05-16-2024 Bilirubin.direct [Mass/Vol] Bilirubin.direct [Mass/volume] in Serum or Plasma Low 0.03-0.18 [facility] Comment on above: If the DBIL is less than 0.1, IBIL is not able to becalculated. Bilirubin.total [Mass/volume ] in Serum or PlasmaOrdered By: Glenn Abdullahi 05-16-2024 Bilirubin [Mass/Vol] Bilirubin.total [Mass/volume] in Serum or Plasma 0.3-1.0 [facility] Calcium [Mass/volume] in Ser um or PlasmaOrdered By: Glenn Abdullahi 05-16-2024 Calcium [Mass/Vol] Calcium [Mass/volume ] in Serum or Plasma 8.6-10.3 [facility] Carbon dioxide, total [Moles /volume] in Serum or PlasmaOrdered By: Glenn Abdullahi 05-16-2024 CO2 [Moles/Vol] Carbon dioxide, tota l [Moles/volume] in Serum or Plasma Low 21.0-31.0 [facility] Chloride [Moles/volume] in S mayte or PlasmaOrdered By: Glenn Abdullahi 05-16-2024 Chloride [Moles/Vol] Chloride [Moles/vol ume] in Serum or Plasma 98-107 [facility] Choriogonadotropin.beta subu nit [Units/volume] in Serum or PlasmaOrdered By: Glenn Abdullahi on 05-16-2024 HCG.beta subunit Qn Choriogonadotropin.b eta subunit [Units/volume] in Serum or Plasma [facility] Comment on above: Approximate Approxim ate hCG Gestational Age Range (mIU/ml) (weeks)0.2-1 5-50 1-2 50-500 2-3 100-5,000 3-4 500-10,000 4-5 1,000-50,000 5-6 10,000-100,000 6-8 15,000-200,000 8-12 10,000-100,000 Color Auto (U)Ordered By: Toro Abdullahi on 05-16-2024 Color (U) Color of Urine by Auto Yellow Fi [facility] Complete Blood Count Auto Di ffon 05-16-2024 Basophils (Bld) [#/Vol] 0.0 10*3/uL Normal 0.0-0.2 [facility] Comment on above: Result Comment: PERF ORMED BY: [place] [address] PATHOLOGIST PATIENT EXPERIENCE COORDINATOR SARAH ANDREWS M.D. Performed By: #### H EPATIC, CBC, BMP, LIPASE #### [facility] [address] [place] [address] Basophils/100 WBC (Bld) 0.0 % Normal . [facility] Comment on above: Performed By: #### H EPATIC, CBC, BMP, LIPASE #### [facility] [address] [place] [address] Eosinophils (Bld) [#/Vol] 0.0 10*3/uL Normal 0.0-0.45 [facility] Comment on above: Performed By: #### H EPATIC, CBC, BMP, LIPASE #### [facility] [address] [place] [address] Eosinophils/100 WBC (Bld) 0.0 % Normal . [facility] Comment on above: Performed By: #### H EPATIC, CBC, BMP, LIPASE #### [address] Erythrocyte distribution width (RBC) [Ratio] 13.7 % Normal 11.9-15.3 [facility] Comment on above: Performed By: #### H EPATIC, CBC, BMP, LIPASE #### [address] Hematocrit (Bld) [Volume fraction] 33.8 % Low 34.0-46.4 [facility] Comment on above: Performed By: #### H EPATIC, CBC, BMP, LIPASE #### [address] Hemoglobin (Bld) [Mass/Vol] 11.7 g/dL Low 11.8-15.4 [facility] Comment on above: Performed By: #### H EPATIC, CBC, BMP, LIPASE #### [address] Lymphocytes (Bld) [#/Vol] 0.6 10*3/uL Low 1.00-4.8 [facility] Comment on above: Performed By: #### H EPATIC, CBC, BMP, LIPASE #### [address] Lymphocytes/100 WBC (Bld) 4.6 % Normal . [facility] Comment on above: Performed By: #### H EPATIC, CBC, BMP, LIPASE #### [address] MCH (RBC) [Entitic mass] 29.7 pg Normal 24.7-34.3 [facility] Comment on above: Performed By: #### H EPATIC, CBC, BMP, LIPASE #### [address] MCV (RBC) [Entitic vol] 86.3 fL Normal 80-100 [facility] Comment on above: Performed By: #### H EPATIC, CBC, BMP, LIPASE #### [address] Mean Corpuscular HGB Conc 34.5 g/dL Normal 32.0-35.0 [facility] Comment on above: Performed By: #### H EPATIC, CBC, BMP, LIPASE #### [address] Monocyte Distribution Width Not performed Normal 0.00-20.00 [facility] Comment on above: Result Comment: Unab le to calculate MDW because the Absolute Monocyte Count is <0.8. Performed By: #### H EPATIC, CBC, BMP, LIPASE #### [address] Monocytes (Bld) [#/Vol] 0.2 10*3/uL Normal 0.0-0.8 [facility] Comment on above: Performed By: #### H EPATIC, CBC, BMP, LIPASE #### [address] Monocytes/100 WBC (Bld) 1.2 % Normal . [facility] Comment on above: Performed By: #### H EPATIC, CBC, BMP, LIPASE #### [address] Neutrophils (Bld) [#/Vol] 13.0 10*3/uL High 1.8-7.7 [facility] Comment on above: Performed By: #### H EPATIC, CBC, BMP, LIPASE #### [address] Neutrophils/100 WBC (Bld) 94.2 % Normal . [facility] Comment on above: Performed By: #### H EPATIC, CBC, BMP, LIPASE #### [address] NRBC% 0.0 /100{WBC} Normal 0-0.5 [facility] Comment on above: Performed By: #### H EPATIC, CBC, BMP, LIPASE #### [address] Platelet mean volume (Bld) [Entitic vol] 11.1 fL High 6.3-10.7 [facility] Comment on above: Performed By: #### H EPATIC, CBC, BMP, LIPASE #### [address] Platelets (Bld) [#/Vol] 186 10*3/uL Normal 150-450 [facility] Comment on above: Performed By: #### H EPATIC, CBC, BMP, LIPASE #### [address] RBC (Bld) [#/Vol] 3.92 10*6/uL Normal 3.60-5.[address] [facility] Comment on above: Performed By: #### H EPATIC, CBC, BMP, LIPASE #### [address] WBC (Bld) [#/Vol] 13.8 10*3/uL High 3.8-11.[address] [facility] Comment on above: Performed By: #### H EPATIC, CBC, BMP, LIPASE #### [address] Comprehensive Metabolic Pane blanquita 05-16-2024 Albumin [Mass/Vol] 4.2 g/dL Normal 3.5-5.7 [facility] Comment on above: Performed By: #### H EPATIC, CBC, BMP, LIPASE #### [address] Albumin/Globulin [Mass ratio] 1.2 {ratio} Normal [facility] Comment on above: Performed By: #### H EPATIC, CBC, BMP, LIPASE #### [address] ALP [Catalytic activity/Vol] 46 U/L Normal 34-104 [facility] Comment on above: Performed By: #### H EPATIC, CBC, BMP, LIPASE #### [address] ALT [Catalytic activity/Vol] 9 U/L Normal 7-52 [facility] Comment on above: Performed By: #### H EPATIC, CBC, BMP, LIPASE #### [facility] [address] [place] [address] Anion gap [Moles/Vol] 17.4 mmol/L High 6.0-15.0 [facility] Comment on above: Performed By: #### H EPATIC, CBC, BMP, LIPASE #### [address] AST [Catalytic activity/Vol] 17 U/L Normal 13-39 [facility] Comment on above: Performed By: #### H EPATIC, CBC, BMP, LIPASE #### [address] Bilirubin [Mass/Vol] 0.4 mg/dL Normal 0.3-1.0 [facility] Comment on above: Performed By: #### H EPATIC, CBC, BMP, LIPASE #### [address] Calcium [Mass/Vol] 9.4 mg/dL Normal 8.6-10.3 [facility] Comment on above: Performed By: #### H EPATIC, CBC, BMP, LIPASE #### [address] Chloride [Moles/Vol] 106 mmol/L Normal 98-107 [facility] Comment on above: Performed By: #### H EPATIC, CBC, BMP, LIPASE #### [address] CO2 [Moles/Vol] 16.0 mmol/L Low 21.0-31.0 [facility] Comment on above: Performed By: #### H EPATIC, CBC, BMP, LIPASE #### [address] Creatinine [Mass/Vol] 0.52 mg/dL Low 0.60-1.20 [facility] Comment on above: Performed By: #### H EPATIC, CBC, BMP, LIPASE #### [address] Creatinine Clr Calc Pharmacy 146.48 Normal [facility] Comment on above: Performed By: #### H EPATIC, CBC, BMP, LIPASE #### [address] GFR/1.73 sq M.predicted MDRD (S/P/Bld) [Vol rate/Area] mL/min/{1.73_m2} Normal [facility] Comment on above: Performed By: #### H EPATIC, CBC, BMP, LIPASE #### [address] Globulin (S) [Mass/Vol] 3.4 g/dL Normal [facility] Comment on above: Performed By: #### H EPATIC, CBC, BMP, LIPASE #### [address] Glucose [Mass/Vol] 160 mg/dL High 70-100 [facility] Comment on above: Result Comment: [facility] Glucose Reference Range is dependent on time and content of last meal. Glucose of more than 200 mg/dL in a nonstressed, ambulatory subject supports the diagnosis of Diabetes Mellitus. ADA recommended reference range Performed By: #### H EPATIC, CBC, BMP, LIPASE #### [address] Potassium [Moles/Vol] 3.4 mmol/L Low 3.5-5.1 [facility] Comment on above: Result Comment: Hemo lysis is present at a level that could interfere with the result. Contact lab if redraw is required Performed By: #### H EPATIC, CBC, BMP, LIPASE #### [address] Protein [Mass/Vol] 7.6 g/dL Normal 6.4-8.9 [facility] Comment on above: Performed By: #### H EPATIC, CBC, BMP, LIPASE #### [address] Sodium [Moles/Vol] 136 mmol/L Normal 136-145 [facility] Comment on above: Performed By: #### H EPATIC, CBC, BMP, LIPASE #### [address] Urea nitrogen [Mass/Vol] 9 mg/dL Normal 7-25 [facility] Comment on above: Performed By: #### H EPATIC, CBC, BMP, LIPASE #### [facility] [address] Creatinine [Mass/volume] in Serum or PlasmaOrdered By: Glenn Abdullahi on 05-16-2024 Creatinine [Mass/Vol] Creatinine [Mass/v olume] in Serum or Plasma Low 0.60-1.20 [facility] Eosinophils Auto (Bld) [#/Vo l]Ordered By: Glenn Abdullahi on 05-16-2024 Eosinophils (Bld) [#/Vol] Automated eosinophil count 0.0-0.45 [facility] Eosinophils/100 WBC Auto (Bl d)Ordered By: Glenn Abdullahi on 05-16-2024 Eosinophils/100 WBC (Bld) Automated eosinophil % . [facility] Erythrocyte distribution wid th Auto (RBC) [Ratio]Ordered By: Glenn Abdullahi on 05-16-2024 Erythrocyte distribution width (RBC) [Ratio] Erythrocyte distribution width [Ratio] by Automated count 11.9-15.3 [facility] Globulin Calc (S) [Mass/Vol] Ordered By: Glenn Abdullahi on 05-16-2024 Globulin (S) [Mass/Vol] Serum globulin measurement by calculation (mass/volume) [facility] Glucose [Mass/volume] in Ser um or PlasmaOrdered By: Glenn Abdullahi 05-16-2024 Glucose [Mass/Vol] Glucose [Mass/volume ] in Serum or Plasma High 70-100 [facility] Comment on above: ADA recommended refe rence [...] in Urine by Test strip High Normal [facility] HCG,Quantitativeon HCG,Quantitative 20876.00 m[iU]/mL Normal [facility] Comment on above: Result Comment: Appr oximate Approximate hCG Gestational Age Range (mIU/ml) (weeks) 0.2-1 5-50 1-2 50-500 2-3 100-5,000 3-4 500-10,000 4-5 1,000-50,000 5-6 10,000-100,000 6-8 15,000-200,000 8-12 10,000-100,000 PERFORMED BY: [place] [address] PATHOLOGIST PATIENT EXPERIENCE COORDINATOR SARAH ANDREWS M.D. Performed By: #### H EPATIC, CBC, BMP, LIPASE #### [address] Hematocrit Auto (Bld) [Volum e fraction]Ordered By: Glenn Abdullahi on 05-16-2024 Hematocrit (Bld) [Volume fraction] Hematocrit [Volume Fraction] of Blood by Automated count Low 34.0-46.4 [facility] Hemoglobin Test strip Ql (U) Ordered By: Glenn Abdullahi on 05-16-2024 Hemoglobin Ql (U) Hemoglobin [Presence ] in Urine by Test strip Negative [facility] Hemoglobin [Mass/volume] in BloodOrdered By: Glenn Abdullahi on 05-16-2024 Hemoglobin (Bld) [Mass/Vol] Hemoglobin [Mass/volume] in Blood Low 11.8-15.4 [facility] Hepatic Panelon 05-16-2024 Bilirubin,Indirect 0.4 mg/dL Normal [facility] Comment on above: Performed By: #### H EPATIC, CBC, BMP, LIPASE #### [address] Bilirubin.indirect [Mass/Vol] 0.00 mg/dL Low 0.03-0.18 [facility] Comment on above: Result Comment: If t DBIL is less than 0.1, IBIL is not able to be calculated. Performed By: #### H EPATIC, CBC, BMP, LIPASE #### [address] Ketones Test strip Ql (U)Ord ered By: Glenn Abdullahi on 05-16-2024 Ketones Ql (U) Ketones [Presence] i n Urine by Test strip High Negative [facility] Leukocyte esterase [Presence ] in Urine by Test stripOrdered By: Glenn Abdullahi on 05-16-2024 Leukocyte esterase Test strip Ql (U) Leukocyte esterase [Presence] in Urine by Test strip Negative [facility] Leukocytes [#/volume] correc rossy for nucleated erythrocytes in Blood by Automated counOrdered By: Glenn Abdullahi on 05-16-2024 WBC corrected for nucl RBC Auto (Bld) [#/Vol] Leukocytes [#/volume] corrected for nucleated erythrocytes in Blood by Automated coun High 3.8-11.6 [facility] Lipaseon 05-16-2024 Lipase [Catalytic activity/Vol] 25.0 U/L Normal 11.0-82.0 [facility] Comment on above: Performed By: #### H EPATIC, CBC, BMP, LIPASE #### [address] Lipase [Enzymatic activity/v olume] in Serum or PlasmaOrdered By: Glenn Abdullahi on 05-16-2024 Lipase [Catalytic activity/Vol] Lipase [Enzymatic activity/volume] in Serum or Plasma 11.0-82.0 [facility] Lymphocytes Auto (Bld) [#/Vo l]Ordered By: Glenn Abdullahi on 05-16-2024 Lymphocytes (Bld) [#/Vol] Lymphocytes [#/volume] in Blood by Automated count Low 1.00-4.8 [facility] Lymphocytes/100 WBC Auto (Bl d)Ordered By: Glenn Abdullahi on 05-16-2024 Lymphocytes/100 WBC (Bld) Lymphocytes/100 leukocytes in Blood by Automated count . [facility] MCH Auto (RBC) [Entitic mass ]Ordered By: Glenn Abdullahi on 05-16-2024 MCH (RBC) [Entitic mass] MCH [Entitic mass] by Automated count 24.7-34.3 [facility] MCHC Auto (RBC) [Mass/Vol]Or dered By: Glenn Abdullahi on 05-16-2024 MCHC (RBC) [Mass/Vol] MCHC [Mass/volume] by Automated count 32.0-35.0 [facility] MCV Auto (RBC) [Entitic vol] Ordered By: Glenn Abdullahi on 05-16-2024 MCV (RBC) [Entitic vol] MCV [Entitic volume] by Automated count 80-100 [facility] Monocyte distribution width [Entitic volume] in Blood by AutomatedOrdered By: Glenn Abdullahi on 05-16-2024 Monocyte distribution width Auto (Bld) [Entitic vol] Monocyte distribution width [Entitic volume] in Blood by Automated 0.00-20.00 [facility] Comment on above: Unable to calculate MDW because the Absolute Monocyte Count is <0.8. Monocytes Auto (Bld) [#/Vol] Ordered By: Glenn Abdullahi on 05-16-2024 Monocytes (Bld) [#/Vol] Automated blood monocyte count 0.0-0.8 [facility] Monocytes/100 WBC Auto (Bld) Ordered By: Glenn Abdullahi on 05-16-2024 Monocytes/100 WBC (Bld) Automated monocyte % . [facility] Neutrophils Auto (Bld) [#/Vo l]Ordered By: Glenn Abdullahi on 05-16-2024 Neutrophils (Bld) [#/Vol] Neutrophils [#/volume] in Blood by Automated count High 1.8-7.7 [facility] Neutrophils/100 WBC Auto (Bl d)Ordered By: Glenn Abdullahi on 05-16-2024 Neutrophils/100 WBC (Bld) Automated neutrophil % . [facility] Nitrite Test strip Ql (U)Ord ered By: Glenn Abdullahi on 05-16-2024 Nitrite Ql (U) Nitrite [Presence] i n Urine by Test strip Negative [facility] No Panel InformationOrdered By: Glenn Abdullahi on 05-16-2024 Estimated GFR (CKD-EPI) > 60.0 mL/Min [facility] Creatinine Clearance (Chem 146.48 [facility] Nucleated erythrocytes [Pres ence] in Blood by Automated countOrdered By: Glenn Abdullahi on 05-16-2024 Nucleated RBC Auto Ql (Bld) Nucleated erythrocytes [Presence] in Blood by Automated count 0-0.5 [facility] Platelet mean volume Auto (B ld) [Entitic vol]Ordered By: Glenn Abdullahi on 05-16-2024 Platelet mean volume (Bld) [Entitic vol] Platelet mean volume [Entitic volume] in Blood by Automated count High 6.3-10.7 [facility] Platelets Auto (Bld) [#/Vol] Ordered By: Glenn Abdullahi on 05-16-2024 Platelets (Bld) [#/Vol] Platelets [#/volume] in Blood by Automated count 150-450 [facility] Potassium [Moles/volume] in Serum or PlasmaOrdered By: Glenn Abdullahi on 05-16-2024 Potassium [Moles/Vol] Potassium [Moles/v olume] in Serum or Plasma Low 3.5-5.1 [facility] Comment on above: Hemolysis is present at a level that could interfere with the result.Contact lab if redraw is required Protein Test strip (U) [Mass /Vol]Ordered By: Glenn Abdullahi on 05-16-2024 Protein (U) [Mass/Vol] Protein [Mass/volume] in Urine by Test strip Negative [facility] Protein [Mass/volume] in Ser um or PlasmaOrdered By: Glenn Abdullahi on 05-16-2024 Protein [Mass/Vol] Protein [Mass/volume ] in Serum or Plasma 6.4-8.9 [facility] RBC Auto (Bld) [#/Vol]Ordere d By: Glenn Abdullahi on 05-16-2024 RBC (Bld) [#/Vol] Erythrocytes [#/volu me] in Blood by Automated count 3.60-5.00 [facility] Serum or plasma albumin/glob ulin mass ratioOrdered By: Glenn Abdullahi 05-16-2024 Albumin/Globulin [Mass ratio] Serum or plasma albumin/globulin mass ratio [facility] Serum or plasma anion gap de terminationOrdered By: Glenn Abdullahi on 05-16-2024 Anion gap [Moles/Vol] Serum or plasma an ion gap determination High 6.0-15.0 [facility] Serum or plasma non-glucuron idated bilirubin measurement (mass/volume)Ordered By: Glenn Abdullahi on 05-16-2024 Bilirubin.indirect [Mass/Vol] Serum or plasma non-glucuronidated bilirubin measurement (mass/volume) [facility] System Sodium [Moles/volume] in Ser um or PlasmaOrdered By: Glenn Abdullahi on 05-16-2024 Sodium [Moles/Vol] Sodium [Moles/volume ] in Serum or Plasma 136-145 [facility] Specific gravity Test strip (U) [Rel density]Ordered By: Glenn Abdullahi on 05-16-2024 Specific gravity (U) [Rel density] Specific gravity of Urine by Test strip 1.001-1.03 0 [facility] Urea nitrogen [Mass/volume] in Serum or PlasmaOrdered By: Glenn Abdullahi on 05-16-2024 Urea nitrogen [Mass/Vol] Urea nitrogen [Mass/volume] in Serum or Plasma 7-25 [facility] Urinalysison 05-16-2024 Appearance (U) Clear Normal Clear [facility] Comment on above: Order Comment: Name Collection Type:: Clean-Voided Midstream Performed By: #### U A #### [facility] [address] [place] [address] [place] Bilirubin,Urine Negative Normal Negative [facility] Comment on above: Order Comment: Name Collection Type:: Clean-Voided Midstream Performed By: #### U A #### [facility] [address] [place] [address] [place] Color (U) Light-Yellow Normal Yellow [facility] Comment on above: Order Comment: Name Collection Type:: Clean-Voided Midstream Performed By: #### U A #### [facility] [address] [place] [id number] [place] Glucose Ql (U) 500 mg/dL High Normal [facility] Comment on above: Order Comment: Name Collection Type:: Clean-Voided Midstream Performed By: #### U A #### [facility] [address] [place] [id number] [place] Ketones Ql (U) 4+ High Negative [facility] Comment on above: Order Comment: Name Collection Type:: Clean-Voided Midstream Performed By: #### U A #### [facility] [address] [place] [id number] [place] Leukocyte esterase Test strip Ql (U) Negative Normal Negative [facility] Comment on above: Order Comment: Name Collection Type:: Clean-Voided Midstream Performed By: #### U A #### [place] [address] [place] Nitrite,Urine Negative Normal Negative [facility] Comment on above: Order Comment: Name Collection Type:: Clean-Voided Midstream Performed By: #### U A #### [address] Occult Blood,Urine Negative Normal Negative [facility] Comment on above: Order Comment: Name Collection Type:: Clean-Voided Midstream Result Comment: PERF ORMED BY: [place] [address] PATHOLOGIST PATIENT EXPERIENCE COORDINATOR SARAH ANDREWS M.D. Performed By: #### U A #### [address] pH (U) 8.0 [pH] Normal 5.0-9.0 [facility] Comment on above: Order Comment: Name Collection Type:: Clean-Voided Midstream Performed By: #### U A #### [address] Protein,Urine Negative Normal Negative [facility] Comment on above: Order Comment: Name Collection Type:: Clean-Voided Midstream Performed By: #### U A #### [place] [address] [place] Specificy [place],Urine 1.020 Normal 1.001-1.03 0 [facility] Comment on above: Order Comment: Name Collection Type:: Clean-Voided Midstream Performed By: #### U A #### [place] [address] [place] Urobilinogen,Urine Normal Normal Normal [facility] Comment on above: Order Comment: Name Collection Type:: Clean-Voided Midstream Performed By: #### U A #### [address] Urobilinogen Test strip (U) [Mass/Vol]Ordered By: Glenn Abdullahi on 05-16-2024 Urobilinogen (U) [Mass/Vol] Urobilinogen [Mass/volume] in Urine by Test strip Normal [facility] WBC Auto (Bld) [#/Vol]Ordere d By: Glenn Abdullahi on 05-16-2024 WBC (Bld) [#/Vol] Leukocytes [#/volume ] in Blood by Automated count High 3.8-11.6 [facility] pH Test strip (U)Ordered By: Glenn Abdullahi on 05-16-2024 pH (U) pH of Urine by Test strip 5.0-9.0 [facility] Urinalysis macro (dipstick) panel (U)Ordered By: Gloria Garcias on 04-24-2024 Bilirubin, UA Negative Negative - 4(70) +++ mg/dL [facility] Work Phone: Blood, UA Negative Negative - 50 Josiah/mcL [facility] Work Phone: Clarity, UA Clear [facility] Work Phone: Color, UA Yellow [facility] Work Phone: Glucose, UA Negative Negative - 1999(110) ++++ mg/dL [facility] Work Phone: Interpretation and review of laboratory results Abnormal [facility] Work Phone: Ketones, UA Negative Negative - 160(16) ++++ mg/dL [facility] Work Phone: Leukocytes, UA Negative Negative - 500+++ Archana/mcL [facility] Work Phone: Nitrite, UA Negative Negative - Positive [facility] Work Phone: pH, UA 6 5 - 9 [facility] Work Phone: Protein, UA Negative Negative - 2000(20) ++++ mg/dL [facility] Work Phone: Spec Grav, UA 1.03 1 - 1.03 [facility] Work Phone: Urobilinogen, UA 1.0 0.2 - 12 mg/dL [facility] Work Phone: [facility] Work Phone: Alanine aminotransferase [En zymatic activity/volume] in Serum or PlasmaOrdered By: Parminder Powell on 04-05-2024 ALT [Catalytic activity/Vol] Alanine aminotransferase [Enzymatic activity/volume] in Serum or Plasma 7-52 [facility] Albumin [Mass/volume] in Ser um or Plasma by Bromocresol green (BCG) dye binding methoOrdered By: Parminder Powell on 04-05-2024 Albumin BCG dye [Mass/Vol] Albumin [Mass/volume] in Serum or Plasma by Bromocresol green (BCG) dye binding metho 3.5-5.7 [facility] Alkaline phosphatase [Enzyma tic activity/volume] in Serum or PlasmaOrdered By: Parminder Powell on 04-05-2024 ALP [Catalytic activity/Vol] Alkaline phosphatase [Enzymatic activity/volume] in Serum or Plasma 34-104 [facility] Appearance of UrineOrdered B y: Parminder Powell on 04-05-2024 Appearance (U) Urine appearance Clear [facility] Aspartate aminotransferase [ Enzymatic activity/volume] in Serum or PlasmaOrdered By: Parminder Powell on 04-05-2024 AST [Catalytic activity/Vol] Aspartate aminotransferase [Enzymatic activity/volume] in Serum or Plasma 13-39 [facility] Bacteria [Presence] in Urine by AutomatedOrdered By: Parminder Powell on 04-05-2024 Bacteria Auto Ql (U) Bacteria [Presence] in Urine by Automated None Seen [facility] Basophils Auto (Bld) [#/Vol] Ordered By: Parminder Powell on 04-05-2024 Basophils (Bld) [#/Vol] Automated basophil count 0.0-0.2 [facility] Basophils/100 WBC Auto (Bld) Ordered By: Parminder Powell on 04-05-2024 Basophils/100 WBC (Bld) Automated basophil % . [facility] Bilirubin Test strip Ql (U)O rdered By: Parminder Powell on 04-05-2024 Bilirubin Ql (U) Bilirubin.total [Pre sence] in Urine by Test strip Negative [facility] Bilirubin.total [Mass/volume ] in Serum or PlasmaOrdered By: Parminder Powell on 04-05-2024 Bilirubin [Mass/Vol] Bilirubin.total [Mass/volume] in Serum or Plasma 0.3-1.0 [facility] BioFire Not Detectedon 04-05 BioFire Not Detected Not detected Normal Not Detecte [facility] Comment on above: Result Comment: This is a duplicate RP2.1 COVID (PCR) result to be used for statistical tracking purpose only. PERFORMED BY: [place] [address] PATHOLOGIST PATIENT EXPERIENCE COORDINATOR SARAH ANDREWS M.D. Performed By: #### A DDONUAPLUS, URDS, CUU #### [address] COVID-19 Detected/Not Detect edOrdered By: Parminder Powell on 04-05-2024 SARS-CoV-2 (COVID-19) RNA TORRES+non-probe Ql (Nph) Not detected Not Detecte [facility] Comment on above: This is a duplicate RP2.1 COVID (PCR) result to be used for statistical tracking purpose only. Calcium [Mass/volume] in Ser um or PlasmaOrdered By: Parminder Powell on 04-05-2024 Calcium [Mass/Vol] Calcium [Mass/volume ] in Serum or Plasma 8.6-10.3 [facility] Carbon dioxide, total [Moles /volume] in Serum or PlasmaOrdered By: Parminder Powell on 04-05-2024 CO2 [Moles/Vol] Carbon dioxide, tota l [Moles/volume] in Serum or Plasma Low 21.0-31.0 [facility] Chloride [Moles/volume] in S mayte or PlasmaOrdered By: Parminder Powell on 04-05-2024 Chloride [Moles/Vol] Chloride [Moles/vol ume] in Serum or Plasma 98-107 [facility] Color Auto (U)Ordered By: Eduar Powell on 04-05-2024 Color (U) Color of Urine by Auto Yellow [facility] Blood Count Auto Di ffon 04-05-2024 Basophils (Bld) [#/Vol] 0.0 10*3/uL Normal 0.0-0.2 [facility] Comment on above: Result Comment: PERF ORMED BY: [place] [address] PATHOLOGIST PATIENT EXPERIENCE COORDINATOR SARAH ANDREWS M.D. Performed By: #### H EPATIC, CBC, BMP, LIPASE #### [address] Basophils/100 WBC (Bld) 0.2 % Normal . [facility] Comment on above: Performed By: #### H EPATIC, CBC, BMP, LIPASE #### [address] Eosinophils (Bld) [#/Vol] 0.0 10*3/uL Normal 0.0-0.45 [facility] Comment on above: Performed By: #### H EPATIC, CBC, BMP, LIPASE #### [address] Eosinophils/100 WBC (Bld) 0.0 % Normal . [facility] Comment on above: Performed By: #### H EPATIC, CBC, BMP, LIPASE #### [address] Erythrocyte distribution width (RBC) [Ratio] 14.5 % Normal 11.9-15.3 [facility] Comment on above: Performed By: #### H EPATIC, CBC, BMP, LIPASE #### [address] Hematocrit (Bld) [Volume fraction] 34.4 % Normal 34.0-46.4 [facility] Comment on above: Performed By: #### H EPATIC, CBC, BMP, LIPASE #### [address] Hemoglobin (Bld) [Mass/Vol] 11.4 g/dL Low 11.8-15.4 [facility] Comment on above: Performed By: #### H EPATIC, CBC, BMP, LIPASE #### [address] Lymphocytes (Bld) [#/Vol] 0.8 10*3/uL Low 1.00-4.8 [facility] Comment on above: Performed By: #### H EPATIC, CBC, BMP, LIPASE #### [address] Lymphocytes/100 WBC (Bld) 6.0 % Normal . [facility] Comment on above: Performed By: #### H EPATIC, CBC, BMP, LIPASE #### [address] MCH (RBC) [Entitic mass] 28.9 pg Normal 24.7-34.3 [facility] Comment on above: Performed By: #### H EPATIC, CBC, BMP, LIPASE #### [address] MCV (RBC) [Entitic vol] 86.9 fL Normal 80-100 [facility] Comment on above: Performed By: #### H EPATIC, CBC, BMP, LIPASE #### [address] Mean Corpuscular HGB Conc 33.2 g/dL Normal 32.0-35.0 [facility] Comment on above: Performed By: #### H EPATIC, CBC, BMP, LIPASE #### [address] Monocytes (Bld) [#/Vol] 0.3 10*3/uL Normal 0.0-0.8 [facility] Comment on above: Performed By: #### H EPATIC, CBC, BMP, LIPASE #### [address] Monocytes/100 WBC (Bld) 19.24 % Normal 0.00-20.00 [facility] Comment on above: Performed By: #### H EPATIC, CBC, BMP, LIPASE #### [address] Monocytes/100 WBC (Bld) 2.1 % Normal . [facility] Comment on above: Performed By: #### H EPATIC, CBC, BMP, LIPASE #### [address] Neutrophils (Bld) [#/Vol] 11.7 10*3/uL High 1.8-7.7 [facility] Comment on above: Performed By: #### H EPATIC, CBC, BMP, LIPASE #### [address] Neutrophils/100 WBC (Bld) 91.7 % Normal . [facility] Comment on above: Performed By: #### H EPATIC, CBC, BMP, LIPASE #### [address] NRBC% 0.0 /100{WBC} Normal 0-0.5 [facility] Comment on above: Performed By: #### H EPATIC, CBC, BMP, LIPASE #### [address] Platelet mean volume (Bld) [Entitic vol] 11.2 fL High 6.3-10.7 [facility] Comment on above: Performed By: #### H EPATIC, CBC, BMP, LIPASE #### [place] [address] [place] Platelets (Bld) [#/Vol] 205 10*3/uL Normal 150-450 [facility] Comment on above: Performed By: #### H EPATIC, CBC, BMP, LIPASE #### [address] RBC (Bld) [#/Vol] 3.95 10*6/uL Normal 3.60-5.[address] [facility] Comment on above: Performed By: #### H EPATIC, CBC, BMP, LIPASE #### [address] WBC (Bld) [#/Vol] 12.7 10*3/uL High 3.8-11.[address] [facility] Comment on above: Performed By: #### H EPATIC, CBC, BMP, LIPASE #### [address] [address] [place] Comprehensive Metabolic Pane blanquita 04-05-2024 Albumin [Mass/Vol] 4.2 g/dL Normal 3.5-5.7 [facility] Comment on above: Performed By: #### H EPATIC, CBC, BMP, LIPASE #### [address] Albumin/Globulin [Mass ratio] 1.3 {ratio} Normal [facility] Comment on above: Performed By: #### H EPATIC, CBC, BMP, LIPASE #### [address] ALP [Catalytic activity/Vol] 60 U/L Normal 34-104 [facility] Comment on above: Performed By: #### H EPATIC, CBC, BMP, LIPASE #### [address] ALT [Catalytic activity/Vol] 20 U/L Normal 7-52 [facility] Comment on above: Performed By: #### H EPATIC, CBC, BMP, LIPASE #### [address] Anion gap [Moles/Vol] 15.3 mmol/L High 6.0-15.0 [facility] Comment on above: Performed By: #### H EPATIC, CBC, BMP, LIPASE #### [address] AST [Catalytic activity/Vol] 13 U/L Normal 13-39 [facility] Comment on above: Performed By: #### H EPATIC, CBC, BMP, LIPASE #### [address] Bilirubin [Mass/Vol] 0.5 mg/dL Normal 0.3-1.0 [facility] Comment on above: Performed By: #### H EPATIC, CBC, BMP, LIPASE #### [address] Calcium [Mass/Vol] 9.1 mg/dL Normal 8.6-10.3 [facility] Comment on above: Performed By: #### H EPATIC, CBC, BMP, LIPASE #### [facility] [address] Chloride [Moles/Vol] 106 mmol/L Normal 98-107 [facility] Comment on above: Performed By: #### H EPATIC, CBC, BMP, LIPASE #### [facility] [address] CO2 [Moles/Vol] 19.0 mmol/L Low 21.0-31.0 [facility] Comment on above: Performed By: #### H EPATIC, CBC, BMP, LIPASE #### [address] Creatinine [Mass/Vol] 0.41 mg/dL Low 0.60-1.20 [facility] Comment on above: Performed By: #### H EPATIC, CBC, BMP, LIPASE #### [address] Creatinine Clr Calc Pharmacy 181.93 Normal [facility] Comment on above: Performed By: #### H EPATIC, CBC, BMP, LIPASE #### [place] [address] [place] GFR/1.73 sq M.predicted MDRD (S/P/Bld) [Vol rate/Area] mL/min/{1.73_m2} Normal [facility] Comment on above: Performed By: #### H EPATIC, CBC, BMP, LIPASE #### [address] Globulin (S) [Mass/Vol] 3.2 g/dL Normal [facility] Comment on above: Performed By: #### H EPATIC, CBC, BMP, LIPASE #### [address] Glucose [Mass/Vol] 138 mg/dL High 70-100 [facility] Comment on above: Result Comment: [place] Glucose Reference Range is dependent on time and content of last meal. Glucose of more than 200 mg/dL in a nonstressed, ambulatory subject supports the diagnosis of Diabetes Mellitus. ADA recommended reference range Performed By: #### H EPATIC, CBC, BMP, LIPASE #### [address] Potassium [Moles/Vol] 3.3 mmol/L Low 3.5-5.1 [facility] Comment on above: Performed By: #### H EPATIC, CBC, BMP, LIPASE #### [address] Protein [Mass/Vol] 7.4 g/dL Normal 6.4-8.9 [facility] Comment on above: Performed By: #### H EPATIC, CBC, BMP, LIPASE #### [address] Sodium [Moles/Vol] 137 mmol/L Normal 136-145 [facility] Comment on above: Performed By: #### H EPATIC, CBC, BMP, LIPASE #### [address] Urea nitrogen [Mass/Vol] 9 mg/dL Normal 7-25 [facility] Comment on above: Performed By: #### H EPATIC, CBC, BMP, LIPASE #### [address] Creatinine [Mass/volume] in Serum or PlasmaOrdered By: Parminder Powell on 04-05-2024 Creatinine [Mass/Vol] Creatinine [Mass/v olume] in Serum or Plasma Low 0.60-1.20 [facility] Dipstick and Microscopicon 0 04-05-2024 Appearance (U) Clear Normal Clear [facility] Comment on above: Order Comment: Name Collection Type:: Clean-Voided Midstream Performed By: #### A DDONUAPLUS #### [address] Bacteria,Urine None Seen Normal None Seen [facility] Comment on above: Order Comment: Name Collection Type:: Clean-Voided Midstream Performed By: #### A DDONUAPLUS #### [address] Bilirubin,Urine Negative Normal Negative [facility] Comment on above: Order Comment: Name Collection Type:: Clean-Voided Midstream Performed By: #### A DDONUAPLUS #### [address] Color (U) Light-Yellow Normal Yellow [facility] Comment on above: Order Comment: Name Collection Type:: Clean-Voided Midstream Performed By: #### A DDONUAPLUS #### [address] Glucose Ql (U) 150 mg/dL High Normal [facility] Comment on above: Order Comment: Name Collection Type:: Clean-Voided Midstream Performed By: #### A DDONUAPLUS #### [place] [address] [place] Hyaline Casts,Urine None Normal 0-8 [facility] Comment on above: Order Comment: Name Collection Type:: Clean-Voided Midstream Performed By: #### A DDONUAPLUS #### [address] Ketones Ql (U) 4+ High Negative [facility] Comment on above: Order Comment: Name Collection Type:: Clean-Voided Midstream Performed By: #### A DDONUAPLUS #### [address] Leukocyte esterase Test strip Ql (U) 3+ High Negative [facility] Comment on above: Order Comment: Name Collection Type:: Clean-Voided Midstream Performed By: #### A DDONUAPLUS #### [place] [address] [place] Mucus,Urine Rare Normal [facility] Comment on above: Order Comment: Name Collection Type:: Clean-Voided Midstream Result Comment: PERF ORMED BY: [place] [address] PATHOLOGIST PATIENT EXPERIENCE COORDINATOR SARAH ANDREWS M.D. Performed By: #### A DDONUAPLUS #### [place] [address] [place] Nitrite,Urine Negative Normal Negative [facility] Comment on above: Order Comment: Name Collection Type:: Clean-Voided Midstream Performed By: #### A DDONUAPLUS #### [address] Occult Blood,Urine Negative Normal Negative [facility] Comment on above: Order Comment: Name Collection Type:: Clean-Voided Midstream Result Comment: PERF ORMED BY: [place] [address] PATHOLOGIST PATIENT EXPERIENCE COORDINATOR SARAH ANDREWS M.D. Performed By: #### A DDONUAPLUS #### [address] pH (U) 6.5 [pH] Normal 5.0-9.0 [facility] Comment on above: Order Comment: Name Collection Type:: Clean-Voided Midstream Performed By: #### A DDONUAPLUS #### [address] Protein,Urine Negative Normal Negative [facility] Comment on above: Order Comment: Name Collection Type:: Clean-Voided Midstream Performed By: #### A DDONUAPLUS #### [address] RBC,Urine 1 [HPF] Normal 0-4 [facility] Comment on above: Order Comment: Name Collection Type:: Clean-Voided Midstream Performed By: #### A DDONUAPLUS #### [place] [address] [place] Specificy [place],Urine 1.018 Normal 1.001-1.03 0 [facility] Comment on above: Order Comment: Name Collection Type:: Clean-Voided Midstream Performed By: #### A DDONUAPLUS #### [place] [address] [place] Squamous Epithelial Cell,Urine 3 [HPF] High 0-2 [facility] Comment on above: Order Comment: Name Collection Type:: Clean-Voided Midstream Performed By: #### A DDONUAPLUS #### [facility] [address] Urobilinogen,Urine Normal Normal Normal [facility] Comment on above: Order Comment: Name Collection Type:: Clean-Voided Midstream Performed By: #### A DDONUAPLUS #### [facility] [address] WBC,Urine 3 [HPF] Normal 0-4 [facility] Comment on above: Order Comment: Name Collection Type:: Clean-Voided Midstream Performed By: #### A DDONUAPLUS #### [facility] [address] Eosinophils Auto (Bld) [#/Vo l]Ordered By: Parminder Powell on 04-05-2024 Eosinophils (Bld) [#/Vol] Automated eosinophil count 0.0-0.45 [facility] Eosinophils/100 WBC Auto (Bl d)Ordered By: Parminder Powell on 04-05-2024 Eosinophils/100 WBC (Bld) Automated eosinophil % . [facility] Epithelial cells.squamous [# /area] in Urine sediment by Automated countOrdered By: Parminder Powell on 04-05-2024 Epithelial cells.squamous Auto (Urine sed) [#/Area] Epithelial cells.squamous [#/area] in Urine sediment by Automated count High 0-2 [facility] Erythrocyte distribution wid th Auto (RBC) [Ratio]Ordered By: Parminder Powell on 04-05-2024 Erythrocyte distribution width (RBC) [Ratio] Erythrocyte distribution width [Ratio] by Automated count 11.9-15.3 [facility] Erythrocytes [#/area] in Uri ne sediment by Automated countOrdered By: Parminder Powell on 04-05-2024 RBC Auto (Urine sed) [#/Area] Erythrocytes [#/area] in Urine sediment by Automated count 0-4 [facility] Globulin Calc (S) [Mass/Vol] Ordered By: Parminder Powell on 04-05-2024 Globulin (S) [Mass/Vol] Serum globulin measurement by calculation (mass/volume) [facility] Glucose [Mass/volume] in Ser um or PlasmaOrdered By: Parminder Powell on 04-05-2024 Glucose [Mass/Vol] Glucose [Mass/volume ] in Serum or Plasma High 70-100 [facility] Comment on above: ADA recommended refe rence [...] in Urine by Test strip High Normal [facility] Hematocrit Auto (Bld) [Volum e fraction]Ordered By: Parminder Powell on 04-05-2024 Hematocrit (Bld) [Volume fraction] Hematocrit [Volume Fraction] of Blood by Automated count 34.0-46.4 [facility] Hemoglobin Test strip Ql (U) Ordered By: Parminder Powell on 04-05-2024 Hemoglobin Ql (U) Hemoglobin [Presence ] in Urine by Test strip Negative [facility] Hemoglobin [Mass/volume] in BloodOrdered By: Parminder Powell on 04-05-2024 Hemoglobin (Bld) [Mass/Vol] Hemoglobin [Mass/volume] in Blood Low 11.8-15.4 [facility] Hyaline casts [#/area] in Ur ine sediment by Automated countOrdered By: Parminder Powell on 04-05-2024 Hyaline casts Auto (Urine sed) [#/Area] Hyaline casts [#/area] in Urine sediment by Automated count 0-8 [facility] Ketones Test strip Ql (U)Ord ered By: Parminder Powell on 04-05-2024 Ketones Ql (U) Ketones [Presence] i n Urine by Test strip High Negative [facility] Leukocyte esterase [Presence ] in Urine by Test stripOrdered By: Parminder Powell on 04-05-2024 Leukocyte esterase Test strip Ql (U) Leukocyte esterase [Presence] in Urine by Test strip High Negative [facility] Leukocytes [#/area] in Urine sediment by Automated countOrdered By: Parminder Powell on 04-05-2024 WBC Auto (Urine sed) [#/Area] Leukocytes [#/area] in Urine sediment by Automated count 0-4 [facility] Leukocytes [#/volume] correc rossy for nucleated erythrocytes in Blood by Automated counOrdered By: Parminder Powell on 04-05-2024 WBC corrected for nucl RBC Auto (Bld) [#/Vol] Leukocytes [#/volume] corrected for nucleated erythrocytes in Blood by Automated coun High 3.8-11.6 [facility] Lipaseon 04-05-2024 Lipase [Catalytic activity/Vol] 11.0 U/L Normal 11.0-82.0 [facility] Comment on above: Result Comment: PERF ORMED BY: [place] [address] PATHOLOGIST PATIENT EXPERIENCE COORDINATOR SARAH ANDREWS M.D. Performed By: #### H EPATIC, CBC, BMP, LIPASE #### [address] Lipase [Enzymatic activity/v olume] in Serum or PlasmaOrdered By: Parminder Powell on 04-05-2024 Lipase [Catalytic activity/Vol] Lipase [Enzymatic activity/volume] in Serum or Plasma 11.0-82.0 [facility] Lymphocytes Auto (Bld) [#/Vo l]Ordered By: Parminder Powell on 04-05-2024 Lymphocytes (Bld) [#/Vol] Lymphocytes [#/volume] in Blood by Automated count Low 1.00-4.8 [facility] Lymphocytes/100 WBC Auto (Bl d)Ordered By: Parminder Powell on 04-05-2024 Lymphocytes/100 WBC (Bld) Lymphocytes/100 leukocytes in Blood by Automated count . [facility] MCH Auto (RBC) [Entitic mass ]Ordered By: Parminder Powell on 04-05-2024 MCH (RBC) [Entitic mass] MCH [Entitic mass] by Automated count 24.7-34.3 [facility] MCHC Auto (RBC) [Mass/Vol]Or dered By: Parminder Powell on 04-05-2024 MCHC (RBC) [Mass/Vol] MCHC [Mass/volume] by Automated count 32.0-35.0 [facility] MCV Auto (RBC) [Entitic vol] Ordered By: Parminder Powell on 04-05-2024 MCV (RBC) [Entitic vol] MCV [Entitic volume] by Automated count 80-100 [facility] Monocyte distribution width [Entitic volume] in Blood by AutomatedOrdered By: Parminder Powell on 04-05-2024 Monocyte distribution width Auto (Bld) [Entitic vol] Monocyte distribution width [Entitic volume] in Blood by Automated 0.00-20.00 [facility] Monocytes Auto (Bld) [#/Vol] Ordered By: Parminder Powell on 04-05-2024 Monocytes (Bld) [#/Vol] Automated blood monocyte count 0.0-0.8 [facility] Monocytes/100 WBC Auto (Bld) Ordered By: Parminder Powell on 04-05-2024 Monocytes/100 WBC (Bld) Automated monocyte % . [facility] Mucus [Presence] in Urine by AutomatedOrdered By: Parminder Powell on 04-05-2024 Mucus Auto Ql (U) Mucus [Presence] in Urine by Automated [facility] Neutrophils Auto (Bld) [#/Vo l]Ordered By: Parminder Powell on 04-05-2024 Neutrophils (Bld) [#/Vol] Neutrophils [#/volume] in Blood by Automated count High 1.8-7.7 [facility] Neutrophils/100 WBC Auto (Bl d)Ordered By: Parminder Powell on 04-05-2024 Neutrophils/100 WBC (Bld) Automated neutrophil % . [facility] Nitrite Test strip Ql (U)Ord ered By: Parminder Powell on 04-05-2024 Nitrite Ql (U) Nitrite [Presence] i n Urine by Test strip Negative [facility] No Panel InformationOrdered By: Parminder Powell on 04-05-2024 Estimated GFR (CKD-EPI) > 60.0 mL/Min [facility] Creatinine Clearance (Chem 181.93 [facility] Nucleated erythrocytes [Pres ence] in Blood by Automated countOrdered By: Parminder Powell on 04-05-2024 Nucleated RBC Auto Ql (Bld) Nucleated erythrocytes [Presence] in Blood by Automated count 0-0.5 [facility] Platelet mean volume Auto (B ld) [Entitic vol]Ordered By: Parminder Powell on 04-05-2024 Platelet mean volume (Bld) [Entitic vol] Platelet mean volume [Entitic volume] in Blood by Automated count High 6.3-10.7 [facility] Platelets Auto (Bld) [#/Vol] Ordered By: Parminder Powell on 04-05-2024 Platelets (Bld) [#/Vol] Platelets [#/volume] in Blood by Automated count 150-450 [facility] Potassium [Moles/volume] in Serum or PlasmaOrdered By: Parminder Powell on 04-05-2024 Potassium [Moles/Vol] Potassium [Moles/v olume] in Serum or Plasma Low 3.5-5.1 [facility] Protein Test strip (U) [Mass /Vol]Ordered By: Parminder Powell on 04-05-2024 Protein (U) [Mass/Vol] Protein [Mass/volume] in Urine by Test strip Negative [facility] Protein [Mass/volume] in Ser um or PlasmaOrdered By: Parminder Powell on 04-05-2024 Protein [Mass/Vol] Protein [Mass/volume ] in Serum or Plasma 6.4-8.9 [facility] RBC Auto (Bld) [#/Vol]Ordere d By: Parminder Powell on 04-05-2024 RBC (Bld) [#/Vol] Erythrocytes [#/volu me] in Blood by Automated count 3.60-5.00 [facility] Respiratory (Upper) Panel, P CRon 04-05-2024 Respiratory [...] A H3 Blank Space -- PERFORMED BY: [facility] [place] [address] [place] [address] PATHOLOGIST PATIENT EXPERIENCE COORDINATOR SARAH ANDREWS M.D. Normal [facility] Comment on above: Performed By: #### A RAFAEL GORDON CUU #### [address] Respiratory pathogens DNA an d RNA panel - Nasopharynx by TORRES with non-probe detectionOrdered By: Parminder Powell on 04-05-2024 Respiratory pathogens DNA and RNA panel TORRES+non-probe (Nph) Respiratory pathogens DNA and RNA panel - Nasopharynx by TORRES with non-probe detection [facility] Respiratory pathogens DNA and RNA panel TORRES+non-probe (Nph) Respiratory pathogens DNA and RNA panel - Nasopharynx by TORRES with non-probe detection [facility] Serum or plasma albumin/glob ulin mass ratioOrdered By: Parminder Powell 04-05-2024 Albumin/Globulin [Mass ratio] Serum or plasma albumin/globulin mass ratio [facility] Serum or plasma anion gap de terminationOrdered By: Parminder Powell 04-05-2024 Anion gap [Moles/Vol] Serum or plasma an ion gap determination High 6.0-15.0 [facility] Sodium [Moles/volume] in Ser um or PlasmaOrdered By: Parminder Powell 04-05-2024 Sodium [Moles/Vol] Sodium [Moles/volume ] in Serum or Plasma 136-145 [facility] Specific gravity Test strip (U) [Rel density]Ordered By: Parminder Powell on 04-05-2024 Specific gravity (U) [Rel density] Specific gravity of Urine by Test strip 1.001-1.03 0 [facility] Urea nitrogen [Mass/volume] in Serum or PlasmaOrdered By: Parminder Powell on 04-05-2024 Urea nitrogen [Mass/Vol] Urea nitrogen [Mass/volume] in Serum or Plasma 10-13 [facility] Urobilinogen Test strip (U) [Mass/Vol]Ordered By: Parminder Powell on 04-05-2024 Urobilinogen (U) [Mass/Vol] Urobilinogen [Mass/volume] in Urine by Test strip Normal [facility] WBC Auto (Bld) [#/Vol]Ordere d By: Parminder Powell on 04-05-2024 WBC (Bld) [#/Vol] Leukocytes [#/volume ] in Blood by Automated count High 3.8-11.6 [facility] pH Test strip (U)Ordered By: Parminder Powell on 04-05-2024 pH (U) pH of Urine by Test strip 5.0-9.0 [facility] BOX TESTon 04-03-2024 BOX TEST SENT OUT [facility] BOX1 [facility] BOX2 04/03/24 [facility] HCG ( test) Ql (U)o n 03-24-2024 Interpretation and review of laboratory results Abnormal [facility] Preg Test, Ur Positive Negative [facility] US OB TRANSVAGINALon 025 US OB [...] x 5.5 cm (8 weeks, 6 days). [place] rump length is 2.1 cm (8 weeks, [...] UA Positive Negative - 4(70) +++ mg/dL [facility] Comment on above: small Blood, UA Negative Negative - 50 Josiah/mcL [facility] Clarity, UA Clear [facility] Color, UA Yellow [facility] Glucose, UA Negative Negative - 2000(110) ++++ mg/dL [facility] Interpretation and review of laboratory results Abnormal [facility] Ketones, UA Positive Negative - 160(16) ++++ mg/dL [facility] Comment on above: trace Leukocytes, UA Positive Negative - 500+++ Archana/mcL [facility] Comment on above: small Nitrite, UA Negative Negative - Positive [facility] pH, UA 6.5 5 - 9 [facility] Protein, UA Positive Negative - 2000(20) ++++ mg/dL [facility] Comment on above: 30 mg Spec Grav, UA 1.025 1 - 1.03 [facility] Urobilinogen, UA 1.0 0.2 - 12 mg/dL [facility] Alanine aminotransferase [En zymatic activity/volume] in Serum or PlasmaOrdered By: Surjit Stanton on 03-04-2024 ALT [Catalytic activity/Vol] Alanine aminotransferase [Enzymatic activity/volume] in Serum or Plasma [facility] Albumin [Mass/volume] in Ser um or Plasma by Bromocresol green (BCG) dye binding methoOrdered By: Surjit Stanton on 03-04-2024 Albumin BCG dye [Mass/Vol] Albumin [Mass/volume] in Serum or Plasma by Bromocresol green (BCG) dye binding metho 3.5-5.7 [facility] Alkaline phosphatase [Enzyma tic activity/volume] in Serum or PlasmaOrdered By: Surjit Stanton on 03-04-2024 ALP [Catalytic activity/Vol] Alkaline phosphatase [Enzymatic activity/volume] in Serum or Plasma Low 34-104 [facility] Anisocytosis LM Ql (Bld)Orde red By: Surjit Stanton on 03-04-2024 Anisocytosis Ql (Bld) Anisocytosis [Pres ence] in Blood by Light microscopy [facility] Appearance of UrineOrdered B y: Surjit Stanton on 03-04-2024 Appearance (U) Urine appearance Clear [facility] Aspartate aminotransferase [ Enzymatic activity/volume] in Serum or PlasmaOrdered By: Surjit Stanton on 03-04-2024 AST [Catalytic activity/Vol] Aspartate aminotransferase [Enzymatic activity/volume] in Serum or Plasma 13-39 [facility] Bacteria [Presence] in Urine by AutomatedOrdered By: Surjit Stanton on 03-04-2024 Bacteria Auto Ql (U) Bacteria [Presence] in Urine by Automated None Seen [facility] Basic Metabolic Panelon 02-19 Anion gap [Moles/Vol] 12.2 mmol/L Normal 6.0-15.0 [facility] Comment on above: Performed By: #### H EPATIC, CBC, BMP, LIPASE #### [facility] [address] Calcium [Mass/Vol] 9.4 mg/dL Normal 8.6-10.3 [facility] Comment on above: Performed By: #### H EPATIC, CBC, BMP, LIPASE #### [facility] [address] [place] [address] [place] Chloride [Moles/Vol] 109 mmol/L High 98-107 [facility] Comment on above: Performed By: #### H EPATIC, CBC, BMP, LIPASE #### [facility] [address] [place] [address] [place] CO2 [Moles/Vol] 21.1 mmol/L Normal 21.0-31.0 [facility] Comment on above: Performed By: #### H EPATIC, CBC, BMP, LIPASE #### [facility] [address] Creatinine [Mass/Vol] 0.60 mg/dL Normal 0.60-1.20 [facility] Comment on above: Performed By: #### H EPATIC, CBC, BMP, LIPASE #### [place] [address] [place] Creatinine Clr Calc Pharmacy 122.59 Normal [facility] Comment on above: Performed By: #### H EPATIC, CBC, BMP, LIPASE #### [place] [address] [place] GFR/1.73 sq M.predicted MDRD (S/P/Bld) [Vol rate/Area] mL/min/{1.73_m2} Normal [facility] Comment on above: Performed By: #### H EPATIC, CBC, BMP, LIPASE #### [address] Glucose [Mass/Vol] 134 mg/dL High 70-100 [facility] Comment on above: Result Comment: [place] Glucose Reference Range is dependent on time and content of last meal. Glucose of more than 200 mg/dL in a nonstressed, ambulatory subject supports the diagnosis of Diabetes Mellitus. ADA recommended reference range Performed By: #### H EPATIC, CBC, BMP, LIPASE #### [address] Potassium [Moles/Vol] 3.3 mmol/L Low 3.5-5.1 [facility] Comment on above: Performed By: #### H EPATIC, CBC, BMP, LIPASE #### [address] Sodium [Moles/Vol] 139 mmol/L Normal 136-145 [facility] Comment on above: Performed By: #### H EPATIC, CBC, BMP, LIPASE #### [address] [place] [address] [facility] Urea nitrogen [Mass/Vol] 8 mg/dL Normal 7-25 [facility] Comment on above: Performed By: #### H EPATIC, CBC, BMP, LIPASE #### [facility] [address] Basophils Auto (Bld) [#/Vol] Ordered By: Surjit Stanton on 03-04-2024 Basophils (Bld) [#/Vol] Automated basophil count 0.0-0.2 [facility] Basophils/100 WBC Auto (Bld) Ordered By: Surjit Stanton on 03-04-2024 Basophils/100 WBC (Bld) Automated basophil % . [facility] Bilirubin Test strip Ql (U)O rdered By: Surjit Stanton on 03-04-2024 Bilirubin Ql (U) Bilirubin.total [Pre sence] in Urine by Test strip Negative [facility] Bilirubin.direct [Mass/volum e] in Serum or PlasmaOrdered By: Surjit Stanton on 03-04-2024 Bilirubin.direct [Mass/Vol] Bilirubin.direct [Mass/volume] in Serum or Plasma 0.03-0.18 [facility] Bilirubin.total [Mass/volume ] in Serum or PlasmaOrdered By: Surjit Stanton on 03-04-2024 Bilirubin [Mass/Vol] Bilirubin.total [Mass/volume] in Serum or Plasma 0.3-1.0 [facility] Calcium [Mass/volume] in Ser um or PlasmaOrdered By: Surjit Stanton on 03-04-2024 Calcium [Mass/Vol] Calcium [Mass/volume ] in Serum or Plasma 8.6-10.3 [facility] Carbon dioxide, total [Moles /volume] in Serum or PlasmaOrdered By: Surjit Stanton on 03-04-2024 CO2 [Moles/Vol] Carbon dioxide, tota l [Moles/volume] in Serum or Plasma 21.0-31.0 [facility] Chloride [Moles/volume] in S mayte or PlasmaOrdered By: Surjit Stanton on 03-04-2024 Chloride [Moles/Vol] Chloride [Moles/vol ume] in Serum or Plasma High 98-107 [facility] Choriogonadotropin.beta subu nit [Units/volume] in Serum or PlasmaOrdered By: Surjit Stanton on 03-04-2024 HCG.beta subunit Qn Choriogonadotropin.b eta subunit [Units/volume] in Serum or Plasma [facility] Comment on above: Approximate Approxim ate hCG Gestational Age Range (mIU/ml) (weeks)0.2-1 5-50 1-2 50-500 2-3 100-5,000 3-4 500-10,000 4-5 1,000-50,000 5-6 10,000-100,000 6-8 15,000-200,000 8-12 10,000-100,000 Color Auto (U)Ordered By: Neri Stanton on 03-04-2024 Color (U) Color of Urine by Auto Yellow [facility] [place] Creatinine [Mass/volume] in Serum or PlasmaOrdered By: Surjit Stanton on 03-04-2024 Creatinine [Mass/Vol] Creatinine [Mass/v olume] in Serum or Plasma 0.60-1.20 [facility] Dipstick and Microscopicon 1 05-05-2023 Appearance (U) Clear Normal Clear [facility] Comment on above: Order Comment: Name Collection Type:: Clean-Voided Midstream Performed By: #### A DDONUAPLUS #### [facility] [address] [place] [id number] [place] Bacteria,Urine Rare Normal None Seen [facility] Comment on above: Order Comment: Name Collection Type:: Clean-Voided Midstream Performed By: #### A DDONUAPLUS #### [facility] [address] [place] [address] [place] Bilirubin,Urine Negative Normal Negative [facility] Comment on above: Order Comment: Name Collection Type:: Clean-Voided Midstream Performed By: #### A DDONUAPLUS #### [facility] [address] [place] [address] [place] Color (U) Light-Yellow Normal Yellow [facility] Comment on above: Order Comment: Name Collection Type:: Clean-Voided Midstream Performed By: #### A DDONUAPLUS #### [facility] [address] Glucose Ql (U) Normal Normal Normal [facility] Comment on above: Order Comment: Name Collection Type:: Clean-Voided Midstream Performed By: #### A DDONUAPLUS #### [facility] [address] [place] [address] [place] Hyaline Casts,Urine None Normal 0-8 [facility] Comment on above: Order Comment: Name Collection Type:: Clean-Voided Midstream Performed By: #### A DDONUAPLUS #### [place] [address] [place] Ketones Ql (U) 2+ High Negative [facility] Comment on above: Order Comment: Name Collection Type:: Clean-Voided Midstream Performed By: #### A DDONUAPLUS #### [place] [address] [place] Leukocyte esterase Test strip Ql (U) Negative Normal Negative [facility] Comment on above: Order Comment: Name Collection Type:: Clean-Voided Midstream Performed By: #### A DDONUAPLUS #### [place] [address] [place] Mucus,Urine 2+ Critically abnormal [facility] Comment on above: Order Comment: Name Collection Type:: Clean-Voided Midstream Result Comment: PERF ORMED BY: [place] [address] PATHOLOGIST PATIENT EXPERIENCE COORDINATOR SARAH ANDREWS M.D. Performed By: #### A DDONUAPLUS #### [place] [address] [place] Nitrite,Urine Negative Normal Negative [facility] Comment on above: Order Comment: Name Collection Type:: Clean-Voided Midstream Performed By: #### A DDONUAPLUS #### [place] [address] [place] Occult Blood,Urine Negative Normal Negative [facility] Comment on above: Order Comment: Name Collection Type:: Clean-Voided Midstream Result Comment: PERF ORMED BY: [place] [address] PATHOLOGIST PATIENT EXPERIENCE COORDINATOR SARAH ANDREWS M.D. Performed By: #### A DDONUAPLUS #### [address] pH (U) 8.5 [pH] Normal 5.0-9.0 [facility] Comment on above: Order Comment: Name Collection Type:: Clean-Voided Midstream Performed By: #### A DDONUAPLUS #### [address] Protein (U) [Mass/Vol] 20 mg/dL High Negative [facility] Comment on above: Order Comment: Name Collection Type:: Clean-Voided Midstream Performed By: #### A DDONUAPLUS #### [address] RBC,Urine 3 [HPF] Normal 0-4 [facility] Comment on above: Order Comment: Name Collection Type:: Clean-Voided Midstream Performed By: #### A DDONUAPLUS #### [address] Specificy [place],Urine 1.023 Normal 1.001-1.03 0 [facility] Comment on above: Order Comment: Name Collection Type:: Clean-Voided Midstream Performed By: #### A DDONUAPLUS #### [place] [address] [place] Squamous Epithelial Cell,Urine 5 [HPF] High 0-2 [facility] Comment on above: Order Comment: Name Collection Type:: Clean-Voided Midstream Performed By: #### A DDONUAPLUS #### [address] Urobilinogen,Urine Normal Normal Normal [facility] Comment on above: Order Comment: Name Collection Type:: Clean-Voided Midstream Performed By: #### A DDONUAPLUS #### [place] [address] [place] WBC,Urine 1 [HPF] Normal 0-4 [facility] Comment on above: Order Comment: Name Collection Type:: Clean-Voided Midstream Performed By: #### A DDONUAPLUS #### [facility] [address] Eosinophils Auto (Bld) [#/Vo l]Ordered By: Surjit Stanton on 03-04-2024 Eosinophils (Bld) [#/Vol] Automated eosinophil count 0.0-0.45 [facility] Eosinophils/100 WBC Auto (Bl d)Ordered By: Surjit Stanton on 03-04-2024 Eosinophils/100 WBC (Bld) Automated eosinophil % . [facility] Epithelial cells.squamous [# /area] in Urine sediment by Automated countOrdered By: Surjit Stanton on 03-04-2024 Epithelial cells.squamous Auto (Urine sed) [#/Area] Epithelial cells.squamous [#/area] in Urine sediment by Automated count High 0-2 [facility] Erythrocyte distribution wid th Auto (RBC) [Ratio]Ordered By: Surjit Stanton on 03-04-2024 Erythrocyte distribution width (RBC) [Ratio] Erythrocyte distribution width [Ratio] by Automated count 11.9-15.3 [facility] Erythrocyte morphology findi ng [Identifier] in BloodOrdered By: Surjit Stanton on 03-04-2024 RBC morphology finding Nom (Bld) RBC morphology Normal [facility] Erythrocytes [#/area] in Uri ne sediment by Automated countOrdered By: Surjit Stanton on 03-04-2024 RBC Auto (Urine sed) [#/Area] Erythrocytes [#/area] in Urine sediment by Automated count 0-4 [facility] Globulin Calc (S) [Mass/Vol] Ordered By: Surjit Stanton on 03-04-2024 Globulin (S) [Mass/Vol] Serum globulin measurement by calculation (mass/volume) [facility] Glucose [Mass/volume] in Ser um or PlasmaOrdered By: Surjit Stanton on 03-04-2024 Glucose [Mass/Vol] Glucose [Mass/volume ] in Serum or Plasma High 70-100 [facility] Comment on above: ADA recommended refe rence rangeRandom Glucose Reference Range is dependent on time and content of last meal. Glucose of more than 200 mg/dL in a nonstressed, ambulatory subject supports the diagnosis of Diabetes Mellitus. Glucose [Mass/volume] in Uri ne by Test stripOrdered By: Surjit Stanton on 03-04-2024 Glucose Test strip (U) [Mass/Vol] Glucose [Mass/volume] in Urine by Test strip Normal [facility] HCG,Quantitativeon HCG,Quantitative 03479.00 m[iU]/mL Normal [facility] Comment on above: Result Comment: Appr oximate Approximate hCG Gestational Age Range (mIU/ml) (weeks) 0.2-1 5-50 1-2 50-500 2-3 100-5,000 3-4 500-10,000 4-5 1,000-50,000 5-6 10,000-100,000 6-8 15,000-200,000 8-12 10,000-100,000 PERFORMED BY: [place] [address] PATHOLOGIST PATIENT EXPERIENCE COORDINATOR SARAH ANDREWS M.D. Performed By: #### H EPATIC, CBC, BMP, LIPASE #### [address] Hematocrit Auto (Bld) [Volum e fraction]Ordered By: Surjit Stanton on 03-04-2024 Hematocrit (Bld) [Volume fraction] Hematocrit [Volume Fraction] of Blood by Automated count 34.0-46.4 [facility] Hemoglobin Test strip Ql (U) Ordered By: Surjit Stanton on 03-04-2024 Hemoglobin Ql (U) Hemoglobin [Presence ] in Urine by Test strip Negative [facility] Hemoglobin [Mass/volume] in BloodOrdered By: Surjit Stanton on 03-04-2024 Hemoglobin (Bld) [Mass/Vol] Hemoglobin [Mass/volume] in Blood 11.8-15.4 [facility] Hepatic Panelon 03-04-2024 Albumin [Mass/Vol] 4.6 g/dL Normal 3.5-5.7 [facility] Comment on above: Performed By: #### H EPATIC, CBC, BMP, LIPASE #### [address] Albumin/Globulin [Mass ratio] 1.6 {ratio} Normal [facility] Comment on above: Performed By: #### H EPATIC, CBC, BMP, LIPASE #### [address] ALP [Catalytic activity/Vol] 32 U/L Low 34-104 [facility] Comment on above: Performed By: #### H EPATIC, CBC, BMP, LIPASE #### [address] ALT [Catalytic activity/Vol] 16 U/L Normal 7-52 [facility] Comment on above: Performed By: #### H EPATIC, CBC, BMP, LIPASE #### [address] AST [Catalytic activity/Vol] 14 U/L Normal 13-39 [facility] Comment on above: Performed By: #### H EPATIC, CBC, BMP, LIPASE #### [address] Bilirubin [Mass/Vol] 0.7 mg/dL Normal 0.3-1.0 [facility] Comment on above: Performed By: #### H EPATIC, CBC, BMP, LIPASE #### [address] Bilirubin,Indirect 0.6 mg/dL Normal [facility] Comment on above: Performed By: #### H EPATIC, CBC, BMP, LIPASE #### [address] Bilirubin.indirect [Mass/Vol] 0.10 mg/dL Normal 0.03-0.18 [facility] Comment on above: Performed By: #### H EPATIC, CBC, BMP, LIPASE #### [address] Globulin (S) [Mass/Vol] 2.9 g/dL Normal [facility] Comment on above: Performed By: #### H EPATIC, CBC, BMP, LIPASE #### [facility] [address] Protein [Mass/Vol] 7.5 g/dL Normal 6.4-8.9 [facility] Comment on above: Performed By: #### H EPATIC, CBC, BMP, LIPASE #### [facility] [address] Hyaline casts [#/area] in Ur ine sediment by Automated countOrdered By: Surjit Stanton on 03-04-2024 Hyaline casts Auto (Urine sed) [#/Area] Hyaline casts [#/area] in Urine sediment by Automated count 0-8 [facility] Ketones Test strip Ql (U)Ord ered By: Surjit Stanton on 03-04-2024 Ketones Ql (U) Ketones [Presence] i n Urine by Test strip High Negative [facility] Leukocyte esterase [Presence ] in Urine by Test stripOrdered By: Surjit Stanton on 03-04-2024 Leukocyte esterase Test strip Ql (U) Leukocyte esterase [Presence] in Urine by Test strip Negative [facility] Leukocytes [#/area] in Urine sediment by Automated countOrdered By: Surjit Stanton on 03-04-2024 WBC Auto (Urine sed) [#/Area] Leukocytes [#/area] in Urine sediment by Automated count 0-4 [facility] Leukocytes [#/volume] correc rossy for nucleated erythrocytes in Blood by Automated counOrdered By: Surjit Stanton on 03-04-2024 WBC corrected for nucl RBC Auto (Bld) [#/Vol] Leukocytes [#/volume] corrected for nucleated erythrocytes in Blood by Automated coun 3.8-11.6 [facility] Lipaseon 03-04-2024 Lipase [Catalytic activity/Vol] 15.0 U/L Normal 11.0-82.0 [facility] Comment on above: Performed By: #### H EPATIC, CBC, BMP, LIPASE #### [facility] [address] [place] [address] [place] Lipase [Enzymatic activity/v olume] in Serum or PlasmaOrdered By: Surjit Stanton on 03-04-2024 Lipase [Catalytic activity/Vol] Lipase [Enzymatic activity/volume] in Serum or Plasma 11.0-82.0 [facility] Lymphocytes Auto (Bld) [#/Vo l]Ordered By: Surjit Stanton on 03-04-2024 Lymphocytes (Bld) [#/Vol] Lymphocytes [#/volume] in Blood by Automated count 1.00-4.8 [facility] Lymphocytes/100 WBC Auto (Bl d)Ordered By: Surjit Stanton on 03-04-2024 Lymphocytes/100 WBC (Bld) Lymphocytes/100 leukocytes in Blood by Automated count . [facility] MCH Auto (RBC) [Entitic mass ]Ordered By: Surjit Stanton on 03-04-2024 MCH (RBC) [Entitic mass] MCH [Entitic mass] by Automated count 24.7-34.3 [facility] MCHC Auto (RBC) [Mass/Vol]Or dered By: Surjit Stanton on 03-04-2024 MCHC (RBC) [Mass/Vol] MCHC [Mass/volume] by Automated count 32.0-35.0 [facility] MCV Auto (RBC) [Entitic vol] Ordered By: Surjit Stanton on 03-04-2024 MCV (RBC) [Entitic vol] MCV [Entitic volume] by Automated count 80-100 [facility] Microcytes LM Ql (Bld)Ordere d By: Surjit Stanton on 03-04-2024 Microcytes Ql (Bld) Microcytes [Presence ] in Blood by Light microscopy [facility] Monocyte distribution width [Entitic volume] in Blood by AutomatedOrdered By: Surjit Stanton on 03-04-2024 Monocyte distribution width Auto (Bld) [Entitic vol] Monocyte distribution width [Entitic volume] in Blood by Automated 0.00-20.00 [facility] Monocytes Auto (Bld) [#/Vol] Ordered By: Surjit Stanton on 03-04-2024 Monocytes (Bld) [#/Vol] Automated blood monocyte count 0.0-0.8 [facility] Monocytes/100 WBC Auto (Bld) Ordered By: Surjit Stanton on 12-14-2024 Monocytes/100 WBC (Bld) Automated monocyte % . [facility] Mucus [Presence] in Urine by AutomatedOrdered By: Surjit Stanton on 03-04-2024 Mucus Auto Ql (U) Mucus [Presence] in Urine by Automated Abnormal [facility] Neutrophils Auto (Bld) [#/Vo l]Ordered By: Surjit Stanton on 03-04-2024 Neutrophils (Bld) [#/Vol] Neutrophils [#/volume] in Blood by Automated count 1.8-7.7 [facility] Neutrophils/100 WBC Auto (Bl d)Ordered By: Surjit Stanton on 03-04-2024 Neutrophils/100 WBC (Bld) Automated neutrophil % . [facility] Nitrite Test strip Ql (U)Ord ered By: Surjit Stanton on 03-04-2024 Nitrite Ql (U) Nitrite [Presence] i n Urine by Test strip Negative [facility] No Panel InformationOrdered By: Surjit Stanton on 03-04-2024 Estimated GFR (CKD-EPI) > 60.0 mL/Min [facility] Creatinine Clearance (Chem 122.59 [facility] Nucleated erythrocytes [Pres ence] in Blood by Automated countOrdered By: Surjit Stanton on 03-04-2024 Nucleated RBC Auto Ql (Bld) Nucleated erythrocytes [Presence] in Blood by Automated count 0-0.5 [facility] Platelet adequacy [Presence] in Blood by Light microscopyOrdered By: Surjit Stanton on 03-04-2024 Platelets LM Ql (Bld) Platelet adequacy [Presence] in Blood by Light microscopy Normal [facility] Platelet mean volume Auto (B ld) [Entitic vol]Ordered By: Surjit Stanton on 03-04-2024 Platelet mean volume (Bld) [Entitic vol] Platelet mean volume [Entitic volume] in Blood by Automated count High 6.3-10.7 [facility] Platelet morphology finding [Identifier] in BloodOrdered By: Surjit Stanton on 03-04-2024 Platelet morphology finding Nom (Bld) Platelet morphology finding [Identifier] in Blood Normal [facility] Platelets Auto (Bld) [#/Vol] Ordered By: Surjit Stanton on 03-04-2024 Platelets (Bld) [#/Vol] Platelets [#/volume] in Blood by Automated count 150-450 [facility] Potassium [Moles/volume] in Serum or PlasmaOrdered By: Surjit Stanton on 03-04-2024 Potassium [Moles/Vol] Potassium [Moles/v olume] in Serum or Plasma Low 3.5-5.1 [facility] Protein Test strip (U) [Mass /Vol]Ordered By: Surjit Stanton on 03-04-2024 Protein (U) [Mass/Vol] Protein [Mass/volume] in Urine by Test strip High Negative [facility] Protein [Mass/volume] in Ser um or PlasmaOrdered By: Surjit Stanton on 03-04-2024 Protein [Mass/Vol] Protein [Mass/volume ] in Serum or Plasma 6.4-8.9 [facility] RBC Auto (Bld) [#/Vol]Ordere d By: Surjit Stanton on 03-04-2024 RBC (Bld) [#/Vol] Erythrocytes [#/volu me] in Blood by Automated count 3.60-5.00 [facility] Scan and CBCon 03-04-2024 Anisocytosis Ql (Bld) Slight Normal [facility] Comment on above: Performed By: #### A RAFAEL GORDON, CUU #### [facility] [address] [place] [address] [place] Basophils (Bld) [#/Vol] 0.0 10*3/uL Normal 0.0-0.2 [facility] Comment on above: Performed By: #### A RAFAEL GORDON, CUU #### [facility] [address] [place] [address] [place] Basophils/100 WBC (Bld) 0.6 % Normal . [facility] Comment on above: Performed By: #### A RAFAEL GORDON, CUU #### [facility] [address] [place] [address] [place] Eosinophils (Bld) [#/Vol] 0.0 10*3/uL Normal 0.0-0.45 [facility] Comment on above: Performed By: #### A CHETNAUAPLUS, URDS, CUU #### [address] Eosinophils/100 WBC (Bld) 0.2 % Normal . [facility] Comment on above: Performed By: #### A DDONUAPLUS, URDS, CUU #### [address] Erythrocyte distribution width (RBC) [Ratio] 14.6 % Normal 11.9-15.3 [facility] Comment on above: Performed By: #### A DDONUAPLUS, URDS, CUU #### [address] Hematocrit (Bld) [Volume fraction] 38.2 % Normal 34.0-46.4 [facility] Comment on above: Performed By: #### A DDONUAPLUS, URDS, CUU #### [address] Hemoglobin (Bld) [Mass/Vol] 12.9 g/dL Normal 11.8-15.4 [facility] Comment on above: Performed By: #### A DDONUAPLUS URDS, CUU #### [address] Lymphocytes (Bld) [#/Vol] 1.3 10*3/uL Normal 1.00-4.8 [facility] Comment on above: Performed By: #### A DDONUAPLUS, URDS, CUU #### [address] Lymphocytes/100 WBC (Bld) 17.1 % Normal . [facility] Comment on above: Performed By: #### A DDONUAPLUS, URDS, CUU #### [address] MCH (RBC) [Entitic mass] 29.4 pg Normal 24.7-34.3 [facility] Comment on above: Performed By: #### A DDONUAPLUS, URDS, CUU #### [address] MCV (RBC) [Entitic vol] 86.9 fL Normal 80-100 [facility] Comment on above: Performed By: #### A RAFAEL GORDON, CUU #### [address] Mean Corpuscular HGB Conc 33.8 g/dL Normal 32.0-35.0 [facility] Comment on above: Performed By: #### A RAFAEL GORDON, CUU #### [address] Microcytosis Slight Normal [facility] Comment on above: Performed By: #### A RAFAEL GORDON, CUU #### [address] Monocytes (Bld) [#/Vol] 0.3 10*3/uL Normal 0.0-0.8 [facility] Comment on above: Performed By: #### A RAFAEL GORDON, CUU #### [address] Monocytes/100 WBC (Bld) 15.87 % Normal 0.00-20.00 [facility] Comment on above: Performed By: #### A RAFAEL GORDON, CUU #### [address] Monocytes/100 WBC (Bld) 4.4 % Normal . [facility] Comment on above: Performed By: #### A RAFAEL GORDON, CUU #### [place] [address] [place] Neutrophils (Bld) [#/Vol] 6.0 10*3/uL Normal 1.8-7.7 [facility] Comment on above: Performed By: #### A RAFAEL GORDON, CUU #### [place] [address] [place] Neutrophils/100 WBC (Bld) 77.7 % Normal . [facility] Comment on above: Performed By: #### A DDONUAPLUS, URDS, CUU #### [address] NRBC% 0.0 /100{WBC} Normal 0-0.5 [facility] Comment on above: Performed By: #### A DDONUAPLUS, URDS, CUU #### [address] Platelet Estimate Normal Normal Normal [facility] Comment on above: Performed By: #### A DDONUAPLUS, URDS, CUU #### [address] Platelet mean volume (Bld) [Entitic vol] 11.5 fL High 6.3-10.7 [facility] Comment on above: Performed By: #### A DDONUAPLUS, URDS, CUU #### [address] Platelet Morphology Normal Normal Normal [facility] Comment on above: Result Comment: PERF ORMED BY: [place] [address] PATHOLOGIST PATIENT EXPERIENCE COORDINATOR SARAH ANDREWS M.D. Performed By: #### A DDONUAPLUS, URDS, CUU #### [address] Platelets (Bld) [#/Vol] 182 10*3/uL Normal 150-450 [facility] Comment on above: Performed By: #### A DDONUAPLUS, URDS, CUU #### [address] RBC (Bld) [#/Vol] 4.40 10*6/uL Normal 3.60-5.[address] [facility] Comment on above: Performed By: #### A DDONUAPLUS, URDS, CUU #### [address] RBC morphology finding Nom (Bld) Normal Normal Normal [facility] Comment on above: Performed By: #### A DDONUAPLUS, URDS, CUU #### [facility] [address] WBC (Bld) [#/Vol] 7.7 10*3/uL Normal 3.8-11.6 [facility] Comment on above: Performed By: #### A DDONUAPLUS, URDS, CUU #### [facility] [address] Serum or plasma albumin/glob ulin mass ratioOrdered By: Surjit Stanton on 03-04-2024 Albumin/Globulin [Mass ratio] Serum or plasma albumin/globulin mass ratio [facility] Serum or plasma anion gap de terminationOrdered By: Surjit Stanton on 03-04-2024 Anion gap [Moles/Vol] Serum or plasma an ion gap determination 6.0-15.0 [facility] Serum or plasma non-glucuron idated bilirubin measurement (mass/volume)Ordered By: Surjit Stanton on 03-04-2024 Bilirubin.indirect [Mass/Vol] Serum or plasma non-glucuronidated bilirubin measurement (mass/volume) [facility] Sodium [Moles/volume] in Ser um or PlasmaOrdered By: Surjit Stanton on 03-04-2024 Sodium [Moles/Vol] Sodium [Moles/volume ] in Serum or Plasma 136-145 [facility] Specific gravity Test strip (U) [Rel density]Ordered By: Surjit Stanton on 03-04-2024 Specific gravity (U) [Rel density] Specific gravity of Urine by Test strip 1.001-1.03 0 [facility] Urea nitrogen [Mass/volume] in Serum or PlasmaOrdered By: Surjit Stanton on 03-04-2024 Urea nitrogen [Mass/Vol] Urea nitrogen [Mass/volume] in Serum or Plasma 7-25 [facility] Urobilinogen Test strip (U) [Mass/Vol]Ordered By: Surjit Stanton on 03-04-2024 Urobilinogen (U) [Mass/Vol] Urobilinogen [Mass/volume] in Urine by Test strip Normal [facility] WBC Auto (Bld) [#/Vol]Ordere d By: Surjit Romy on 03-04-2024 WBC (Bld) [#/Vol] Leukocytes [#/volume ] in Blood by Automated count 3.8-11.6 [facility] pH Test strip (U)Ordered By: Surjitpreethi Stanton on 03-04-2024 pH (U) pH of Urine by Test strip 5.0-9.[address] [facility] [address] cervical spine wo conon 0 11-25-2023 CT cervical spine wo con [facility] [place] [address] [place] [address] CT Scan Report Signed Patient: Nicole Farris MR#: [id number] : 1995 Acct:[id number] Age/Sex: 28 / F ADM Date: 11/25/23 Loc: ER Room: Type: [facility] ER Attending Dr: Copies to: Vianney Genao APRN Ordering Provider: Vianney Genao APRN Date of Service: 11/25/23 CT/CT cervical spine wo con: increased pain ([id number]) CT/CT head/brain wo con: pain CLINICAL DATA: [...] Priscila Barbosa M.D.11/25/2023 7:01 PM Dictation Location: [place] [address] Transcribed By: [facility] 11/25/231900 Dictated By: Priscila Barbosa MD 11/25/231852 Signed By: 11/25/231900 Normal [facility] XR CERVICAL SPINE [...] [Catalytic activity/Vol] 47 U/L Normal 7-52 U/L [facility] Albumin [Mass/volume] in Ser um or Plasma by Bromocresol green (BCG) dye binding methoOrdered By: Adin Gan on 06-04-2022 Albumin BCG dye [Mass/Vol] 4.9 g/dL 3.5-5.7 [facility] Alkaline phosphatase [Enzyma tic activity/volume] in Serum or PlasmaOrdered By: Adin Gan on 06-04-2022 ALP [Catalytic activity/Vol] 104 U/L Normal 34-104 U/L [facility] Aspartate aminotransferase [ Enzymatic activity/volume] in Serum or PlasmaOrdered By: Adin Gan on 06-04-2022 AST [Catalytic activity/Vol] 23 U/L Normal 13-39 U/L [facility] Bilirubin.total [Mass/volume ] in Serum or PlasmaOrdered By: Adin Gan on 06-04-2022 Bilirubin [Mass/Vol] 0.5 mg/dL 0.3-1.0 [facility] Calcium [Mass/volume] in Ser um or PlasmaOrdered By: Adin Gan on 06-04-2022 Calcium [Mass/Vol] 9.7 mg/dL 8.6-10.3 [facility] Carbon dioxide, total [Moles /volume] in Serum or PlasmaOrdered By: Adin Gan on 06-04-2022 CO2 [Moles/Vol] 27.2 mmol/L 21.0-31.0 [facility] Chloride [Moles/volume] in S mayte or PlasmaOrdered By: Adin Gan on 06-04-2022 Chloride [Moles/Vol] 104 mmol/L Normal 98-107 mmol/L [facility] Comprehensive Metabolic Pane blanquita 06-04-2022 Albumin [Mass/Vol] 4.874758 g/dL Normal 3.5-5.7 g/dL [facility] Other Bilirubin [Mass/Vol] 0.8178267 mg/dL Normal 0.3- 1.0 mg/dL [facility] Other Calcium [Mass/Vol] 9.6496065 mg/dL Normal 8.6-10 .3 mg/dL [facility] Other CO2 [Moles/Vol] 27.31100147 mmol/L Normal 21.0-3 1.0 mmol/L [facility] Other Creatinine [Mass/Vol] 0.94042806 mg/dL Normal 0. 60-1.20 mg/dL [facility] Other Potassium [Moles/Vol] 4.60959877 mmol/L Normal 3 .5-5.1 mmol/L [facility] Other Protein [Mass/Vol] 7.416668 g/dL Normal 6.4-8.9 g/dL [facility] Other Comprehensive Metabolic Panel 3.0 g/dL [facility] Other Creatinine [Mass/volume] in Serum or PlasmaOrdered By: Adin Gan on 06-04-2022 Creatinine [Mass/Vol] 0.71 mg/dL 0.60-1.20 [facility] Erythrocyte distribution wid th Auto (RBC) [Ratio]Ordered By: Adin Gan on 06-04-2022 Erythrocyte distribution width (RBC) [Ratio] 13.5 % 11.9-15.3 [facility] Erythrocytes [#/volume] in B lood by Automated countOrdered By: Adin Gan on 06-04-2022 RBC (Bld) [#/Vol] 4.44 10*6/uL Normal 3.60-5.00 [facility] Globulin Calc (S) [Mass/Vol] Ordered By: Adin Gan on 06-04-2022 Globulin (S) [Mass/Vol] 3.0 g/dL [facility] Glucose [Mass/volume] in Ser um or PlasmaOrdered By: Adin Gan on 06-04-2022 Glucose [Mass/Vol] 89 mg/dL Normal 74-109 mg/dL [facility] Comment on above: ADA recommended refe rence rangeRandom Glucose Reference Range is dependent on time and content of last meal. Glucose of more than 200 mg/dL in a nonstressed, ambulatory subject supports the diagnosis of Diabetes Mellitus. Hematocrit Auto (Bld) [Volum e fraction]Ordered By: Adin Gan on 06-04-2022 Hematocrit (Bld) [Volume fraction] 38.5 % 34.0-46.4 [facility] Hemoglobin [Mass/volume] in BloodOrdered By: Adin Gan on 06-04-2022 Hemoglobin (Bld) [Mass/Vol] 12.8 g/dL 11.8-15.4 [facility] Hemogram CBC Without Diffon 06-04-2022 Erythrocyte distribution width (RBC) [Ratio] 13.500 % Normal 11.9-15.3 % [facility] Other Hematocrit (Bld) [Volume fraction] 38.500 % Normal 34.0-46.4 % [facility] Other Hemoglobin (Bld) [Mass/Vol] 12.604729 g/dL Normal 11.8-15.4 g/dL [facility] Other MCH (RBC) [Entitic mass] 28.7000 pg Normal 24.7-34.3 pg [facility] Other MCV (RBC) [Entitic vol] 86.7000 fL Normal 80-100 fL [facility] Other Platelet mean volume (Bld) [Entitic vol] 11.1000 fL High 6.3-10.7 fL [facility] Other WBC (Bld) [#/Vol] 6.436321934 10*3/uL Normal 3.8 -11.6 10*3/uL [facility] Other Hemogram CBC Without Diff 33.1 g/dL Normal 32.0-35.0 g/dL [facility] Other Laboratory - Chemistry and C hemistry - challengeOrdered By: Adin Gan on 06-04-2022 GFR/1.73 sq M.predicted MDRD (S/P/Bld) [Vol rate/Area] mL/min/{1.73_m2} [facility] Leukocytes [#/volume] correc rossy for nucleated erythrocytes in Blood by Automated counOrdered By: Adin Gan on 06-04-2022 WBC corrected for nucl RBC Auto (Bld) [#/Vol] 6.6 10*3/uL 3.8-11.6 [facility] MCH Auto (RBC) [Entitic mass ]Ordered By: Adin Gan on 06-04-2022 MCH (RBC) [Entitic mass] 28.7 pg 24.7-34.3 [facility] MCHC Auto (RBC) [Mass/Vol]Or dered By: Adin Gan on 06-04-2022 MCHC (RBC) [Mass/Vol] 33.1 g/dL 32.0-35.0 [facility] MCV Auto (RBC) [Entitic vol] Ordered By: Adin Gan on 06-04-2022 MCV (RBC) [Entitic vol] 86.7 fL 80-100 [facility] No Panel InformationOrdered By: Adin Gan on 06-04-2022 Pharmacy Creatinine Clearance (Chem N/A [facility] Platelet mean volume Auto (B ld) [Entitic vol]Ordered By: Adin Gan on 06-04-2022 Platelet mean volume (Bld) [Entitic vol] 11.1 fL 6.3-10.7 [facility] Platelets [#/volume] in Bloo d by Automated countOrdered By: Adin Gan on 06-04-2022 Platelets (Bld) [#/Vol] 196 10*3/uL Normal 150-450 10*3/uL [facility] Potassium [Moles/volume] in Serum or PlasmaOrdered By: Adin Gan on 06-04-2022 Potassium [Moles/Vol] 4.1 mmol/L 3.5-5.1 [facility] Protein [Mass/volume] in Ser um or PlasmaOrdered By: Adin Gan on 06-04-2022 Protein [Mass/Vol] 7.9 g/dL 6.4-8.9 [facility] Serum or plasma albumin/glob ulin mass ratioOrdered By: Adin Gan on 06-04-2022 Albumin/Globulin [Mass ratio] 1.6 {ratio} [facility] Serum or plasma anion gap de terminationOrdered By: Adin Gan on 06-04-2022 Anion gap [Moles/Vol] 12.9 mmol/L 6.0-15.0 [facility] Sodium [Moles/volume] in Ser um or PlasmaOrdered By: Adin Gan on 06-04-2022 Sodium [Moles/Vol] 140 mmol/L Normal 136-145 mmol/L [facility] Thyroid Stim Hormone w/Rflxo n 06-04-2022 Thyroid Stim Hormone w/Rflx 0.93 u[iU]/mL Normal 0.45-5.33 u[iU]/mL [facility] Thyrotropin [Units/volume] i n Serum or PlasmaOrdered By: Adin Gan on 06-04-2022 TSH Qn 0.93 m[IU]/L 0.45-5.33 [facility] Urea nitrogen [Mass/volume] in Serum or PlasmaOrdered By: Adin Gan on 06-04-2022 Urea nitrogen [Mass/Vol] 15 mg/dL Normal 7-25 mg/dL [facility] PAP ACOG PANEL 2: 21 to 29on 02-24-2022 . . Normal [facility] Comment on above: Performed By: #### [id number] #### [facility] [address] [place] [address] [address] Lilia Calvillo Age Gdln ACOG Testing - [facility] Comment on above: Performed By: #### [id number] #### [facility] [address] [place] [address] [address] Lilia Calvillo DIAGNOSIS: Comment [facility] Comment on above: Result Comment: NEGA TIVE FOR INTRAEPITHELIAL LESION OR MALIGNANCY. Performed By: #### [id number] #### [facility] [address] [place] [address] Dr. Lilia Calvillo Methodology: Comment [facility] Comment on above: Result Comment: This liquid based ThinPrep(R) pap test was screened with the use of an image guided system. Performed By: #### [id number] #### [facility] [address] [place] [address] Dr. Lilia Calvillo Note: Comment [facility] Comment on above: Result Comment: The Pap smear is a screening test designed to aid in the detection of premalignant and malignant conditions of the uterine cervix. It is not a diagnostic procedure and should not be used as the sole means of detecting cervical cancer. Both false-positive and false-negative reports do occur. . Performed By: #### [id number] #### [facility] [address] [place] [address] [address] Lilia Calvillo Performed by: Comment [facility] Comment on above: Result Comment: Philippe Garcia Finished Cloth Examiner (ASCP) Performed By: #### [id number] #### [facility] [address] [place] [address] Dr. Lilia Calvillo Reflex Criteria: Comment [facility] Comment on above: Result Comment: The HPV DNA reflex criteria were not met with this specimen result therefore, no HPV testing was performed. . Performed By: #### [id number] #### [facility] [address] [place] [address] Dr. Lilia Calvillo Specimen adequacy: Comment Normal [facility] Comment on above: Result Comment: Sati sfactory for evaluation. No endocervical component is identified. Performed By: #### [id number] #### [facility] [address] [place] [address] Dr. Lilia Calvillo CBC AUTO DIFFon 10-17-2021 BASO # 0.0 103/ul Normal 0.0-0.1 [facility] Comment on above: Performed By: #### C BC #### [facility] [address] [place] [address] Dr. Lilia Calvillo Basophils/100 WBC (Bld) 0.4 % Normal 0.2-2.0 [facility] Comment on above: Performed By: #### C BC #### [facility] [address] [place] [address] Dr. Lilia Calvillo EO # 0.2 103/ul Normal 0.0-0.7 [facility] Comment on above: Performed By: #### C BC #### [facility] [address] [place] [address] Dr. Lilia Calvillo Eosinophils/100 WBC (Bld) 2.1 % Normal 0.9-7.0 [facility] Comment on above: Performed By: #### C BC #### [facility] [address] [place] [address] Dr. Lilia Calvillo Erythrocyte distribution width (RBC) [Ratio] 14.4 % Normal 11.0-15.0 [facility] Comment on above: Performed By: #### C BC #### [facility] [address] [place] [address] Dr. Lilia Calvillo Hematocrit (Bld) [Volume fraction] 27.2 % Critically low 36.0-48.0 [facility] Comment on above: Performed By: #### C BC #### [facility] [address] [place] [address] Dr. Lilia Calvillo Hemoglobin (Bld) [Mass/Vol] 9.0 g/dL Critically low 12.0-16.0 [facility] Comment on above: Performed By: #### C BC #### [facility] [address] [place] [address] Dr. Lilia Calvillo IG # 0.03 10e3/ul Normal 0.00-0.03 [facility] Comment on above: Performed By: #### C BC #### [facility] [address] [place] [address] Dr. Lilia Calvillo IG % 0.4 % Normal 0.0-0.5 [facility] Comment on above: Performed By: #### C BC #### [facility] [address] [place] [address] Dr. Lilia Calvillo LYMPH # 1.6 103/ul Normal 1.2-3.8 [facility] Comment on above: Performed By: #### C BC #### [facility] [address] [place] [address] Dr. Lilia Calvillo Lymphocytes/100 WBC (Bld) 20.2 % Critically low 20.5-60.0 [facility] Comment on above: Performed By: #### C BC #### [facility] [address] [place] [address] Dr. Lilia Calvillo MANUAL DIFF REQ NO Normal [facility] Comment on above: Performed By: #### C BC #### [facility] [address] [place] [address] Dr. Lilia Calvillo MCH (RBC) [Entitic mass] 29.3 pg Normal 26.7-34.0 [facility] Comment on above: Performed By: #### C BC #### [facility] [address] [place] [address] Dr. Lilia Calvillo MCHC (RBC) [Mass/Vol] 33.1 g/dL Normal 29.9-35.2 [facility] Comment on above: Performed By: #### C BC #### [facility] [address] [place] [address] Dr. Lilia Calvillo MCV (RBC) [Entitic vol] 88.6 fL Normal 81.0-99.0 [facility] Comment on above: Performed By: #### C BC #### [facility] [address] [place] [address] Dr. Lilia Calvillo MONO # 0.5 103/ul Normal 0.3-0.8 [facility] Comment on above: Performed By: #### C BC #### [facility] [address] [place] [address] Dr. Lilia Calvillo Monocytes/100 WBC (Bld) 5.7 % Normal 1.7-12.0 [facility] Comment on above: Performed By: #### C BC #### [facility] [address] [place] [address] Dr. Lilia Calvillo NEUT # 5.8 103/ul Normal 1.4-6.5 [facility] Comment on above: Performed By: #### C BC #### [facility] [address] [place] [address] Dr. Lilia Calvillo Neutrophils/100 WBC (Bld) 71.2 % Normal 43.0-75.0 [facility] Comment on above: Performed By: #### C BC #### [facility] [address] [place] [address] Dr. Lilia Calvillo Platelet mean volume (Bld) [Entitic vol] 13.1 fL Normal 9.5-13.5 [facility] Comment on above: Performed By: #### C BC #### [facility] [address] [place] [address] Dr. Lilia Calvillo PLT 109 103/ul Critically low 150-450 [facility] Comment on above: Performed By: #### C BC #### [facility] [address] [place] [address] Dr. Lilia Calvillo RBC 3.07 106/ul Critically low 4.20-5.[address] [facility] Comment on above: Performed By: #### C BC #### [facility] [address] [place] [address] Dr. Lilia Calvillo WBC 8.1 103/ul Normal 4.0-11.0 [facility] Comment on above: Performed By: #### C BC #### [facility] [address] [place] [address] Dr. Lilia Calvillo CBC AUTO DIFFon 10-16-2021 BASO # 0.0 103/ul Normal 0.0-0.1 [facility] Comment on above: Performed By: #### G TT3P #### [facility] [address] [place] [address] Dr. Lilia Calvillo Basophils/100 WBC (Bld) 0.2 % Normal 0.2-2.0 [facility] Comment on above: Performed By: #### G TT3P #### [facility] [address] [place] [address] Dr. Lilia Calvillo EO # 0.1 103/ul Normal 0.0-0.7 [facility] Comment on above: Performed By: #### G TT3P #### [facility] [address] [place] [address] Dr. Lilia Calvillo Eosinophils/100 WBC (Bld) 0.6 % Critically low 0.9-7.0 [facility] Comment on above: Performed By: #### G TT3P #### [facility] [address] [place] [address] Dr. Lilia Calvillo Erythrocyte distribution width (RBC) [Ratio] 14.5 % Normal 11.0-15.0 [facility] Comment on above: Performed By: #### G TT3P #### [facility] [address] [place] [address] Dr. Lilia Calvillo Hematocrit (Bld) [Volume fraction] 36.2 % Normal 36.0-48.0 [facility] Comment on above: Performed By: #### G TT3P #### [facility] [address] [place] [address] Dr. Lilia Calvillo Hemoglobin (Bld) [Mass/Vol] 11.8 g/dL Critically low 12.0-16.0 [facility] Comment on above: Performed By: #### G TT3P #### [facility] [address] [place] [address] Dr. Lilia Calvillo IG # 0.05 10e3/ul Critically high 0.00-0.03 [facility] Comment on above: Performed By: #### G TT3P #### [facility] [address] [place] [address] Dr. Lilia Calvillo IG % 0.5 % Normal 0.0-0.5 [facility] Comment on above: Performed By: #### G TT3P #### [facility] [address] [place] [address] Dr. Lilia Calvillo LYMPH # 2.0 103/ul Normal 1.2-3.8 [facility] Comment on above: Performed By: #### G TT3P #### [facility] [address] [place] [address] Dr. Lilia Calvillo Lymphocytes/100 WBC (Bld) 20.7 % Normal 20.5-60.0 [facility] Comment on above: Performed By: #### G TT3P #### [facility] [address] [place] [address] Dr. Lilia Calvillo MANUAL DIFF REQ NO Normal [facility] Comment on above: Performed By: #### G TT3P #### [facility] [address] [place] [address] Dr. Lilia Calvillo MCH (RBC) [Entitic mass] 28.7 pg Normal 26.7-34.0 [facility] Comment on above: Performed By: #### G TT3P #### [facility] [address] [place] [address] Dr. Lilia Calvillo MCHC (RBC) [Mass/Vol] 32.6 g/dL Normal 29.9-35.2 [facility] Comment on above: Performed By: #### G TT3P #### [facility] [address] [place] [address] Dr. Lilia Calvillo MCV (RBC) [Entitic vol] 88.1 fL Normal 81.0-99.0 [facility] Comment on above: Performed By: #### G TT3P #### [facility] [address] [place] [address] Dr. Lilia Calvillo MONO # 0.5 103/ul Normal 0.3-0.8 [facility] Comment on above: Performed By: #### G TT3P #### [facility] [address] [place] [address] Dr. Lilia Calvillo Monocytes/100 WBC (Bld) 5.7 % Normal 1.7-12.0 [facility] Comment on above: Performed By: #### G TT3P #### [facility] [address] [place] [address] Dr. Lilia Calvillo NEUT # 6.8 103/ul Critically high 1.4-6.5 [facility] Comment on above: Performed By: #### G TT3P #### [facility] [address] [place] [address] Dr. Lilia Calvillo Neutrophils/100 WBC (Bld) 72.3 % Normal 43.0-75.0 [facility] Comment on above: Performed By: #### G TT3P #### [facility] [address] [place] [address] Dr. Lilia Calvillo Platelet mean volume (Bld) [Entitic vol] 13.2 fL Normal 9.5-13.5 [facility] Comment on above: Performed By: #### G TT3P #### [facility] [address] [place] [address] Dr. Lilia Calvillo PLT 130 103/ul Critically low 150-450 [facility] Comment on above: Performed By: #### G TT3P #### [facility] [address] [place] [address] Dr. Lilia Calvillo RBC 4.11 106/ul Critically low 4.20-5.[address] [facility] Comment on above: Performed By: #### G TT3P #### [facility] [address] [place] [address] Dr. Lilia Calvillo WBC 9.5 103/ul Normal 4.0-11.0 [facility] Comment on above: Performed By: #### G TT3P #### [facility] [address] [place] [address] Dr. Lilia Calvillo DRUG SCREEN RAPID (URINE)on 10-16-2021 AMP Negative Normal NEGATIVE [facility] Comment on above: Performed By: #### G TT3P #### [facility] [address] [place] [address] Dr. Lilia Calvlilo BAR Negative Normal NEGATIVE [facility] Comment on above: Performed By: #### G TT3P #### [facility] [address] [place] [address] Dr. Lilia Calvillo BUP Negative Normal NEGATIVE [facility] Comment on above: Performed By: #### G TT3P #### [facility] [address] [place] [address] Dr. Lilia Calvillo BZO Negative Normal NEGATIVE [facility] Comment on above: Performed By: #### G TT3P #### [facility] [address] [place] [address] Dr. Lilia Calvillo LAWANDA Negative Normal NEGATIVE [facility] Comment on above: Performed By: #### G TT3P #### [facility] [address] [place] [address] Dr. Lilia Calvillo CUT-OFFS SEE BELOW Normal [facility] Comment on above: Result Comment: AMP [...] ng/mL Performed By: #### G TT3P #### [facility] [address] [place] [address] Dr. Lilia Calvillo DRUG CUT HEADER DRUG CLASS TEST SYST EM CUT-OFF CONCENTRATIONS ARE FOLLOWS: Normal [facility] Comment on above: Performed By: #### G TT3P #### [facility] [address] [place] [address] Dr. Lilia Calvillo mAMP Negative Normal NEGATIVE [facility] Comment on above: Performed By: #### G TT3P #### [facility] [address] [place] [address] Dr. Lilia Calvillo MTD Negative Normal NEGATIVE [facility] Comment on above: Performed By: #### G TT3P #### [facility] [address] [place] [address] Dr. Lilia Calvillo OPI Negative Normal NEGATIVE [facility] Comment on above: Performed By: #### G TT3P #### [facility] [address] [place] [address] Dr. Lilia Calvillo OXY Negative Normal NEGATIVE [facility] Comment on above: Performed By: #### G TT3P #### [facility] [address] [place] [address] Dr. Lilia Calvillo PCP Negative Normal NEGATIVE [facility] Comment on above: Performed By: #### G TT3P #### [facility] [address] [place] [address] Dr. Lilia Calvillo PPX Negative Normal NEGATIVE [facility] Comment on above: Performed By: #### G TT3P #### [facility] [address] [place] [address] Dr. Lilia Calvillo TCA Negative Normal NEGATIVE [facility] Comment on above: Performed By: #### G TT3P #### [facility] [address] [place] [address] Dr. Lilia Calvillo THC Negative Normal NEGATIVE [facility] Comment on above: Performed By: #### G TT3P #### [facility] [address] [place] [address] Dr. Lilia Calvillo TYPE AND SCREENon 10-16-2021 TYPE AND SCREEN Negative Normal [facility] Comment on above: Performed By: #### G TT3P #### [facility] [address] [place] [address] Dr. Lilia Calvillo UA (CLEAN/CATCH) SOA ARCHITECT/MICRO I F IND.on 10-16-2021 Bilirubin Ql (U) Negative Normal NEGATIVE [facility] Comment on above: Performed By: #### U ACSIND #### [facility] [address] [address] [address] Lilia Calvillo Clarity (U) CLEAR Normal CLEAR [facility] Comment on above: Performed By: #### U ACSIND #### [facility] [address] [address] [address] Lilia Calvillo Color (U) LT. YELLOW Normal YELLOW [facility] Comment on above: Performed By: #### U ACSIND #### [facility] [address] [address] [address] Lilia Calvillo Glucose Ql (U) Negative Normal NEGATIVE [facility] Comment on above: Performed By: #### U ACSIND #### [facility] [address] [place] [address] Dr. Lilia Calvillo Hemoglobin Ql (U) Negative Normal NEGATIVE [facility] Comment on above: Performed By: #### U ACSIND #### [facility] [address] [place] [address] Dr. Lilia Calvillo Ketones Ql (U) Negative Normal NEGATIVE [facility] Comment on above: Performed By: #### U ACSIND #### [facility] [address] [address] [address] Lilia Calvillo LEUKOCYTES Negative Normal NEGATIVE [facility] Comment on above: Performed By: #### U ACSIND #### [facility] [address] [place] [address] Dr. Lilia Calvillo Nitrite Ql (U) Negative Normal NEGATIVE [facility] Comment on above: Performed By: #### U ACSIND #### [facility] [address] [place] [address] Dr. Lilia Calvillo pH (U) 6.5 [pH] Normal 5-9 [facility] Comment on above: Performed By: #### U ACSIND #### [facility] [address] [place] [address] Dr. Lilia Calvillo SPEC GRAVITY 1.020 Normal 1.005-<=1. 025 [facility] Comment on above: Performed By: #### U ACSIND #### [facility] [address] [place] [address] Dr. Lilia Calvillo UA PROTEIN Negative Normal NEGATIVE/ TRACE [facility] Comment on above: Performed By: #### U ACSIND #### [facility] [address] [place] [address] Dr. Lilia Calvillo UR MICRO IND NOT INDICATED Normal [facility] Comment on above: Performed By: #### U ACSIND #### [facility] [address] [place] [address] Dr. Lilia Calvillo Urobilinogen Qn (U) 0.2 {Ann'U}/dL Normal 0.2 - 1. 0 [facility] Comment on above: Performed By: #### U ACSIND #### [facility] [address] [place] [address] Dr. Lilia Calvillo Covid-19 PCR ([facility])on 09-20 SARS-CoV-2 (COVID-19) RNA TORRES+probe Ql (Unsp spec) Not detected Normal NOT DETECTED [facility] Comment on above: Result Comment: This test is not yet approved or cleared by the [place] FDA. When there are no FDA-approved or cleared tests available, and other criteria are met, FDA can make tests available under an emergency access mechanism called an Emergency Use Authorization (EUA). The EUA for this test is supported by the Asset Liability Analyst of Health and Human Service's (HHS's) declaration [...] SARS-CoV-2. Performed By: #### G TT3P #### [facility] [address] [place] [address] Dr. Lilia Calvillo CHLAMYDIA/GONOCOCCUS TORRES (SW AB/URINE/PAPon 09-27-2021 Chlamydia trachomatis, TORRES Negative Normal Negative [facility] Comment on above: Performed By: #### C T/NGNA #### [facility] [address] [address] [address] Lilia Calvillo Neisseria gonorrhoeae, TORRES Negative Normal Negative [facility] Comment on above: Performed By: #### C T/NGNA #### [facility] [address] [place] [address] Dr. Lilia Calvillo GROUP B STREP CULTUREon 07-0 S. agalactiae Ag Ql (Unsp spec) Culture Observations: NEGATIVE FOR GROUP B STREPTOCOCCUS. Normal [facility] Comment on above: Performed By: #### G TT3P #### [facility] [address] [place] [address] Dr. Lilia Calvillo GTT 3 HR PREGon 07-21-2021 Glucose [Mass/Vol] 92 mg/dL Normal 74-106 [facility] Comment on above: Performed By: #### G TT3P #### [facility] [address] [place] [address] Dr. Lilia Calvillo Glucose [Mass/Vol] 193 mg/dL Normal [facility] Comment on above: Performed By: #### G TT3P #### [facility] [address] [place] [address] Dr. Lilia Calvillo Glucose [Mass/Vol] 146 mg/dL Normal [facility] Comment on above: Performed By: #### G TT3P #### [facility] [address] [address] [address] Lilia Calvillo Glucose [Mass/Vol] 123 mg/dL Normal [facility] Comment on above: Performed By: #### G TT3P #### [facility] [address] [place] [address] Dr. Lilia Calvillo GLUCOSE - 1HRon 07-09-2021 Glucose [Mass/Vol] 167 mg/dL Critically high 74-[address] [facility] Comment on above: Performed By: #### G LU1HR #### [facility] [address] [place] [address] Dr. Lilia Calvillo HEMOGRAM AND PLATELon 04-20- 2022 Hematocrit (Bld) [Volume fraction] 33.9 % Critically low 36.0-48.0 [facility] Comment on above: Performed By: #### H H #### [facility] [address] [place] [address] Dr. Lilia Calvillo Hemoglobin (Bld) [Mass/Vol] 10.9 g/dL Critically low 12.0-16.0 [facility] Comment on above: Performed By: #### H H #### [facility] [address] [place] [address] Dr. Lilia Calvillo MCH (RBC) [Entitic mass] 29.9 pg Normal 26.7-34.0 [facility] Comment on above: Performed By: #### H H #### [facility] [address] [place] [address] Dr. Lilia Calvillo MCHC (RBC) [Mass/Vol] 32.2 g/dL Normal 29.9-35.2 [facility] Comment on above: Performed By: #### H H #### [facility] [address] [place] [address] Dr. Lilia Calvillo MCV (RBC) [Entitic vol] 93.1 fL Normal 81.0-99.0 [facility] Comment on above: Performed By: #### H H #### [facility] [address] [place] [address] Dr. Lilia Calvillo PLT 153 103/ul Normal 150-450 [facility] Comment on above: Performed By: #### H H #### [facility] [address] [place] [address] Dr. Lilia Calvillo RBC 3.64 106/ul Critically low 4.20-5.[address] [facility] Comment on above: Performed By: #### H H #### [facility] [address] [place] [address] Dr. Lilia Calvillo WBC 8.4 103/ul Normal 4.0-11.0 [facility] Comment on above: Performed By: #### H H #### [facility] [address] [place] [address] Dr. Lilia Calvillo US PREG ANATOMY SINGLEon [...] by ultrasound, 40% by expected EDC; FL/AC: [id number] FL/BPD: 0.550126 HC/AC: 1.573549 GESTATIONAL AGE: Age by EDC: 20 weeks 0 days ALINA by EDC: 10/23/2021 Age by current US: 19 weeks 4 days ALINA by current US: 10/26/2021 IMPRESSION: Normal anatomy scan *Reference: [facility] Practice Guideline for the performance of Obstetric Ultrasound Examinations, December 20, 2006. Electronically authenticated by: DESTINY BAILEY Date: 2021-06-05 16:17 Normal [facility] AFP MATERNAL FOR SPINA BIFID Aon 05-30-2021 AFP MoM 1.33 Normal [facility] Comment on above: Performed By: #### A FPMAT #### [facility] [address] [address] [address] Lilia Calvillo AFP Value 63.0 ng/mL Normal [facility] Comment on above: Performed By: #### A FPMAT #### [facility] [address] [address] [address] Lilia Calvillo AFP, Serum for Spina Bifida Report Normal [facility] Comment on above: Performed By: #### A FPMAT #### [facility] [address] [address] [address] Lilia Calvillo Comment Comment Normal [facility] Comment on above: Result Comment: Hamlet Sinclair, Ph.D., [facility] Director . References: Available Upon Request. . Multiples Of Median Cutoffs For AFP Elevations Sandoval 2.5 Black 2.8 IDD 2.0 Twins 4.5 Abbreviation Definitions IDD - Insulin Dep Diabetes OSBR - Open Spina Bifida Risk . For further inquiries contact [employer] at [phone]. Performed By: #### A FPMAT #### [facility] [address] [address] [address] Lilia Calvillo Gest Age Collection Date 18.9 weeks Normal [facility] Comment on above: Performed By: #### A FPMAT #### [facility] [address] [address] [address] Lilia Calvillo Gestat, Age Based on Ultrasound Normal [facility] Comment on above: Result Comment: 18.9 on 05/28/2021 Recalculations are not recommended when gestational dating by LMP and ultrasound are within 10 days. Performed By: #### A FPMAT #### [facility] [address] [place] [address] Dr. Lilia Calvillo Insulin Dep Diabetes No Normal [facility] Comment on above: Performed By: #### A FPMAT #### [facility] [address] [place] [address] Dr. Lilia Calvillo Interpretation Comment Normal [facility] Comment on above: Result Comment: Inte rpretation: [...] Customer Services to discuss available options. The [place] [employer] recommends amniocentesis be offered to women age 35 and older. Performed By: #### A FPMAT #### [facility] [address] [place] [address] Dr. Lilia Calvillo [age] Normal [facility] Comment on above: Performed By: #### A FPMAT #### [facility] [address] [place], [place] [id number] Dr. Lilia Calvillo Multiple Gestation No Normal [facility] Comment on above: Performed By: #### A FPMAT #### [facility] [address] [place] [address] Dr. Lilia Calvillo OSBR Risk 1 [place] [address] [facility] Comment on above: Performed By: #### A FPMAT #### [facility] [address] [place] [address] Dr. Lilia Calvillo PDF . [facility] Comment on above: Result Comment: This test was developed and its performance characteristics determined by [employer]. It has not been cleared or approved by the Food and Drug Administration. Performed By: #### A FPMAT #### [facility] [address] [place] [address] Dr. Lilia Calvillo [employer] [facility] Comment on above: Performed By: #### A FPMAT #### [facility] [address] [place] [address] Dr. Lilia Calvillo Test Results: Negative [facility] Comment on above: Performed By: #### A FPMAT #### [facility] [address] [place] [address] Dr. Lilia Calvillo Q - CULTURE,URINE,ROUTINEon 05-21-2021 CULTURE, URINE, ROUTINE SEE NOTE Normal [facility] [employer] Comment on above: Order Comment: [facility] performed at: QPT, [facility], [address] [place] [address], [address] [place] [address], [place], [id number], [employer]: Wilber Wilson MD [facility] Collection Date/Time: [id number] [facility] Results Received Date/Time: [facility] Reported Date/Time: Result Comment: CULT URE, URINE, ROUTINE Micro Number: [id number] Test Status: Final Specimen Source: Urine Specimen Quality: Adequate Result: Mixed genital yair isolated. These superficial bacteria are not indicative of a urinary tract infection. No further organism identification is warranted on this specimen. If clinically indicated, recollect clean-catch, mid-stream urine and transfer immediately to Urine Culture Transport Tube. Performed By: #### 3 020X, 6304R, %SBCULI #### [facility] Default [address] [place] [address] Q - UR CULT [id number] 2021 REFLEXIVE URINE CULTURE SEE NOTE Normal [facility] Steam Conditioner Operator Comment on above: Order Comment: [facility] Testing performed at: [facility], [address] [place] [address], [address] [place] [address], [id number], Welder [employer]xyhydrogen: Wilber Wilson MD [facility] Collection Date/Time: [facility] Results Received Date/Time: [facility] Reported Date/Time: Result Comment: CULT URE INDICATED - RESULTS TO FOLLOW Performed By: #### 3 020X, 6304R, %SBCULI #### [facility] Default [address] [place] [address] Q - URINALYSIS,COMPLETE,WITH REFLEX TO CULTUREon 05-21-2021 Appearance (U) TURBID Abnormal CLEAR [facility] Steam Conditioner Operator Comment on above: Order Comment: [facility] Testing performed at: [facility], [address] [facility], [address] [place] [address], [phone], Welder Oxyhydrogen: Wilber Wilson MD [facility] Collection Date/Time: [facility] Results Received Date/Time: [facility] Reported Date/Time: Performed By: #### 3 020X, 6304R, %SBCULI #### [facility] Default [address] [place] [address] BACTERIA MODERATE Abnormal NONE SEEN [facility] Steam Conditioner Operator Comment on above: Order Comment: [facility] Testing performed at: [facility], [address], [address] [place] [address], [address] [place] [address], Welder Oxy[employer]: Wilber Wilson MD [facility] Collection Date/Time: [facility] Results Received Date/Time: [facility] Reported Date/Time: Performed By: #### 3 020X, 6304R, %SBCULI #### [facility] Default [address] [place] [address] Bilirubin Ql (U) Negative Normal NEGATIVE [facility] Steam Conditioner Operator Comment on above: Order Comment: [facility] Testing performed at: [employer], [employer] [facility], [address] , [address] [place] [address], [address] [place] [address], Welder Oxyhydrogen: Wilber Wilson MD [facility] Collection Date/Time: [facility] Results Received Date/Time: [facility] Reported Date/Time: Performed By: #### 3 020X, 6304R, %SBCULI #### [facility] Default [address] [place] [address] Color (U) YELLOW Normal YELLOW [facility] Steam Conditioner Operator Comment on above: Order Comment: [facility] performed at: [employer], [employer] [facility], [address] , [address] [place] [address], [address] [place] [address], Welder Oxyhydrogen: Wilber Wilson MD [facility] Collection Date/Time: [facility] Results Received Date/Time: [facility] Reported Date/Time: Performed By: #### 3 020X, 6304R, %SBCULI #### [facility] [address] [place] [address] Glucose Ql (U) Negative Normal NEGATIVE [facility] Steam Conditioner Operator Comment on above: Order Comment: [facility] Testing performed at: [employer], [employer] [facility], [address], [address] [place] [address], [address] [place] [address], [employer]der [employer]xyhydrogen: Wilber Wilson MD [facility] Collection Date/Time: [facility] Results Received Date/Time: [facility] Reported Date/Time: Performed By: #### 3 020X, 6304R, %SBCULI #### [facility] Default [address] [place] [address] HYALINE CAST NONE SEEN Normal NONE SEEN [facility] Steam Conditioner Operator Comment on above: Order Comment: [facility] Testing performed at: [employer], [employer] [facility], [address] , [address] [place] [address], [address] [place] [address], [employer]: Wilber Wilson MD [facility] Collection Date/Time: [facility] Results Received Date/Time: [facility] Reported Date/Time: Performed By: #### 3 020X, 6304R, %SBCULI #### [facility] Default [address] [place] [address] Ketones Ql (U) TRACE Abnormal NEGATIVE [facility] Steam Conditioner Operator Comment on above: Order Comment: [facility] performed at: [employer], [employer] [facility], [address] , [address] [place] [address], [address] [place] [address], [employer]: Wilber Wilson MD [facility] Collection Date/Time: [facility] Results Received Date/Time: [facility] Reported Date/Time: Performed By: #### 3 020X, 6304R, %SBCULI #### [facility] Default [address] [place] [address] Leukocyte esterase Test strip Ql (U) 2+ Abnormal NEGATIVE [facility] Specialist Comment on above: Order Comment: [facility] Testing performed at: [employer], [employer] [facility], [address] , [address] [place] [address], [address] [place] [address], Welder [employer]: Wilber Wilson MD [facility] Collection Date/Time: [facility] Results Received Date/Time: [facility] Reported Date/Time: Performed By: #### 3 020X, 6304R, %SBCULI #### [facility] Default [address] [place] [address] Nitrite Ql (U) Negative Normal NEGATIVE [facility] Steam Conditioner Operator Comment on above: Order Comment: [facility] performed at: [employer], [employer] [facility], [address] [facility], [address] [place] [address], [address] [place] [address], Welder Oxyhydrogen: Wilber Wilson MD [facility] Collection Date/Time: [facility] Results Received Date/Time: [facility] Reported Date/Time: Performed By: #### 3 020X, 6304R, %SBCULI #### [facility] Default [address] [place] [address] OCCULT BLOOD Negative Normal NEGATIVE [facility] Steam Conditioner Operator Comment on above: Order Comment: [facility] performed at: [employer], [employer] [facility], [address] [facility], [address] [place] [address], [address] [place] [address], Welder [employer]xy[employer]: Wilber Wilson MD [facility] Collection Date/Time: [facility] Results Received Date/Time: [facility] Reported Date/Time: Performed By: #### 3 020X, 6304R, %SBCULI #### [facility] Default [address] [place] [address] pH (U) 5.5 [pH] Normal 5.0-8.0 [facility] Steam Conditioner Operator Comment on above: Order Comment: [facility] performed at: [employer], [employer] [facility], [address] [place] [address], [address] [place] [address], [phone], Welder Oxyhydrogen: Wilber Wilson MD [facility] Collection Date/Time: [facility] Results Received Date/Time: [facility] Reported Date/Time: Performed By: #### 3 020X, 6304R, %SBCULI #### [facility] Default [address] [place] [address] Protein Ql (U) Negative Normal NEGATIVE [facility] Steam Conditioner Operator Comment on above: Order Comment: [facility] performed at: [employer], [employer] [facility], [address] [facility], [address] [place] [address], [address] [place] [address], Welder [employer]xy[employer]: Wilber Wilson MD [facility] Collection Date/Time: [facility] Results Received Date/Time: [facility] Reported Date/Time: Performed By: #### 3 020X, 6304R, %SBCULI #### [facility] Default [address] [place] [address] RBC NONE SEEN Normal < OR = 2 [facility] Steam Conditioner Operator Comment on above: Order Comment: [facility] performed at: [employer], [employer] [facility], [address] [facility], [address] [place] [address], [address] [place] [address], Welder Oxyhydrogen: Wilber Wilson MD [facility] Collection Date/Time: [facility] Results Received Date/Time: [facility] Reported Date/Time: Performed By: #### 3 020X, 6304R, %SBCULI #### [facility] Default [address] [place] [address] Specific gravity (U) [Rel density] 1.029 Normal 1.001-1.03 5 [facility] Steam Conditioner Operator Comment on above: Order Comment: [facility] performed at: [employer], [employer] [facility], [address] [place] [address], [address] [place] [address], [address] [place] [address], Welder Oxyhydrogen: Wilber Wilson MD [facility] Collection Date/Time: [facility] Results Received Date/Time: [facility] Reported Date/Time: Performed By: #### 3 020X, 6304R, %SBCULI #### [facility] Default [address] [place] [address] SQUAMOUS EPITHELIAL CELLS 10-20 Abnormal < OR = 5 [facility] Steam Conditioner Operator Comment on above: Order Comment: [facility] performed at: [employer], [employer] [facility], [address] , [address] [place] [address], [address] [place] [address], Welder [employer]xyhydrogen: Wilber Wilson MD [facility] Collection Date/Time: [facility] Results Received Date/Time: [facility] Reported Date/Time: Performed By: #### 3 020X, 6304R, %SBCULI #### [facility] Default [address] [place] [address] WBC 20-40 Abnormal < OR = 5 [facility] Steam Conditioner Operator Comment on above: Order Comment: [facility] performed at: [facility], [address] [facility], [address] [facility], [place], [address], Welder Oxyhydrogen: Wilber Wilson MD [facility] Collection Date/Time: [facility] Results Received Date/Time: [facility] Reported Date/Time: Performed By: #### 3 020X, 6304R, %SBCULI #### [facility] Default [address] [place] [address] US PREG LIMITEDon 05-09-2021 US PREG LIMITED [...] BAILEY OTERO Date: 2021-05-09 10:39 Normal [facility] HEPATITIS C VIRUS AB W/ REFL EX QUANTon 04-08-2021 HCV AB >11.0 Critically high 0.0-0.[address] [facility] Comment on above: Result Comment: . Performed By: #### H CVPCRR #### [facility] [address] [address] [address] Lilia Calvillo HCV log10 Normal [facility] Comment on above: Performed By: #### H CVPCRR #### [facility] [address] [address] [address] Lilia Calvillo Hep C Quantitation Not detected Normal [facility] Comment on above: Performed By: #### H CVPCRR #### [facility] [address] [address] [address] Lilia Calvillo Interpretation Comment Normal [facility] Comment on above: Result Comment: Posi tive HCV antibody screen without the presence of HCV RNA is consistent with a resolved past infection or a false positive HCV antibody. Consider repeat testing after one month. Performed By: #### H CVPCRR #### [facility] [address] [address] [address] Lilia Calvillo Test Information: Comment Normal [facility] Comment on above: Result Comment: The quantitative range of this assay is 15 IU/mL to 100 million IU/mL. Performed By: #### H CVPCRR #### [facility] [address] [address] [address] Lilia Calvillo RUBI BOX TEST PT SEND OUTo n 04-03-2021 SENT TO REF LAB 04/03/2021 Normal [facility] Comment on above: Performed By: #### G TT3P #### [facility] [address] [place] [address] Dr. Lilia Calvillo US PREG TVon 04-03-2021 [...] BAILEY OTERO Date: 2021-04-03 14:48 Normal [facility] Drug Screen Comprehensive Ur ineon 04-23-2017 Adulterants Negative Normal [facility] Comment on above: Result Comment: [...] was developed and the performance characteristicsdetermined by [facility]. Thisconfirmation testing has not been cleared or approvedby the FDA. The laboratory is regulated under CLIA asqualified to perform high-complexity testing. This testis used for patient testing purposes. It should not beregarded as investigational or for research.Test performed at [facility],[address] [place] [address] Tkwdjan G. Finn, MD - Business Office Representative Performed By: #### 6 9742-5, 63297-5, 77770-7, 46738-9, 80902-3, 77791-2, 41224-6, 45839-7 ####[facility] [address], [place]#### [address]45[address]-3, 69655-3 ####[facility], [address] [place], [place] Creatinine Urine - Toxicology 48 mg/dL Normal [facility] Comment on above: Performed By: #### 6 9742-5, 85882-2, 05676-4, 55907-8, 83260- 4, 71472-3, 44995-1, 83845-2 ####[facility] [address], [place]#### [address]74[address]-0, 64380-4 ####[facility], [address], [place] Drug Scr Urine SeeBelow Normal [facility] Comment on above: Result Comment: Drug s Detected in Urine: THC Cotinine Caffeine All drugs identified should be considered presumptive positives unless they have been identified by an alternate chemical method. These drugs have been qualitatively identified by either or both immunoassay or gas chromatography/mass spectrometry (GC/MS) Performed By: #### 6 9742-5, 85396-9, 72145-1, 69570-9, 48344-1, 55891-6, 46548-0, 21899-9 ####[facility] [address], [place]#### 49679-3, 50317-9 ####[facility], [address], [place] Hepatitis C RNA (PCR) Quanti tativeon 04-23-2017 Hepatitis C PCR Log IU/ml 3.34 see fn High <1.08 [facility] Comment on above: Result Comment: Unit s: Log (10) IU/mLThis procedure utilizes a real-time polymerase chainreaction test from [employer]. The amplificationtarget is a conserved region of [...] resultdoes not rule out infection.Test performed at [facility],[address] [place] [address] Dbewyyf G. Finn, MD - Business Office Representative Performed By: #### 6 9742-5, 58468-6, 89650-6, 12864-6, 99081-6, 14082-6, 72657-5, 68626-5 ####[facility] [address], [place]#### 23435-3, 93722-1 ####[facility], [address], [place] Hepatitis C RNA PCR seefn High <12 [facility] Comment on above: Result Comment: Resu lt: 2,182 Performed By: #### 6 9742-5, 78015-0, 40708-3, 51448-3, 06690-6, 41378-0, 81153-9, 45865-4 ####[facility] [address], [place]#### 61913-6, 42891-2 ####[facility], [facility] [place], [place] Hepatitis C Virus RNA Ql DETECTED Abnormal [facility] Comment on above: Result Comment: Ref Range: Not detected Performed By: #### 6 9742-5, 98792-6, 54614-7, 84669-2, 60985-7, 28071-4, 53063-4, 67976-9 ####[facility] [address], [place]#### 06419-4, 91302-2 ####[facility], [address], [place] Hepatitis A Antibody Totalon 04-22-2017 Hepatitis A Antibody Negative Normal Negative [facility] Comment on above: Result Comment: Test performed at [facility],[address] [place] [address] Wcwqinc G. Finn, MD - Business Office Representative Performed By: #### 6 9742-5, 23618-8, 64671-3, 73461-2, 23308-6, 93060-7, 62814-0, 02956-0 ####[facility] [address], [place]#### 28346-8, 84741-9 ####[facility], [address], [place] Hepatitis B Core Antibody Ig Mon 04-21-2017 Interpretation and review of laboratory results Negative Normal NEGATIVE [facility] Comment on above: Result Comment: [...] POS VACCINATION Performed By: #### 6 9742-5, 38845-7, 68984-4, 25531-8, 04008-7, 56714-1, 52493-7, 77050-5 ####[facility] [address], [place]#### 27084-8, 01092-7 ####[facility], [address], [place] Hepatitis C Antibodyon 04-21 Hepatitis C Antibody Positive Abnormal NEGATIVE [facility] Comment on above: Result Comment: [...] longer available. Performed By: #### 6 9742-5, 73355-5, 59067-8, 71094-6, 14280-0, 70738-3, 72798-4, 73612-1 ####[facility] [address], [place]#### 15736-4, 46086-7 ####[facility], [address], [place] Hepatitis C Antibody Positive Abnormal NEGATIVE [facility] Comment on above: Result Comment: For [...] longer available. Performed By: #### 6 9742-5, 85589-2, 88931-9, 10193-0, 98174-7, 27462-8, 77212-3, 96141-8 ####[facility] [address] [place], [place]#### 73433-4, 77553-5 ####[facility], [address], [place] CBC with Differentialon 03-24 Basophils Auto #/vol (Bld) 0.00 thou/mcL Normal 0.00-0.20 [facility] Comment on above: Performed By: #### 6 9742-5, 71368-1, 46585-3, 36611-8, 03687- 4, 66608-3, 77291-2, 78081-2 ####[facility] [address], [place]#### 45981-3, 11196-8 ####[facility], [facility] [place] Basophils/100 WBC Auto (Bld) 0.2 % Normal 0.0-2.0 [facility] Comment on above: Performed By: #### 6 9742-5, 26175-6, 02254-8, 85514-8, 54830- 4, 64784-5, 93735-4, 32861-2 ####[facility] [address], [place]#### 26895-0, 16068-0 ####[facility], [facility] [address] [place], [place] Eosinophils 0.10 thou/mcL Normal 0.00-0.70 [facility] Comment on above: Performed By: #### 6 9742-5, 87525-2, 46586-0, 88202-7, 85609- 4, 41070-8, 71915-0, 82610-5 ####[facility] [address], [place]#### 46695-3, 16230-3 ####[facility], [facility] [address] [place], [place] Eosinophils/100 leukocytes 1.8 % Normal 0.0-7.0 [facility] Comment on above: Performed By: #### 6 9742-5, 33810-1, 92958-6, 15342-7, 44744- 4, 39980-6, 72464-2, 30791-0 ####[facility] [address], [place]#### 07047-9, 50261-6 ####[facility], [facility] [address], [place] Erythrocyte distribution width Auto Ratio (RBC) 13.7 % Normal 11.0-14.8 [facility] Comment on above: Performed By: #### 6 9742-5, 47978-9, 90281-6, 12748-5, 33164- 4, 91563-5, 01609-1, 62931-0 ####[facility] [address], [place]#### 80095-4, 60107-4 ####[facility], [facility] [address], [place] Erythrocytes (RBC) 4.15 million/mcL Normal 3.80-5.10 [facility] Comment on above: Performed By: #### 6 9742-5, 56178-1, 69386-0, 42347-3, 54022- 4, 77999-2, 23360-2, 74337-0 ####[facility] [address], [place]#### 29535-3, 48978-0 ####[facility], [address], [place] Hematocrit (HCT) 37.0 % Normal 35.0-45.0 [facility] Comment on above: Performed By: #### 6 9742-5, 16841-9, 99433-4, 06720-2, 69905- 4, 38866-5, 94422-9, 11472-1 ####[facility] [address], [place]#### 08859-1, 59084-7 ####[facility], [address], [place] Hemoglobin mass conc (Bld) 12.2 g/dL Normal 12.0-16.0 [facility] Comment on above: Performed By: #### 6 9742-5, 42252-8, 18393-8, 80216-8, 65989- 4, 72673-1, 06025-5, 58917-8 ####[facility] [address], [place]#### 89670-4, 07490-3 ####[facility], [address], [place] Lymphocytes 1.80 thou/mcL Normal 1.00-4.80 [facility] Comment on above: Performed By: #### 6 9742-5, 74419-0, 63689-9, 68483-2, 49989- 4, 71688-4, 21768-3, 39222-9 ####[facility] [address], [place]#### 25836-6, 87587-9 ####[facility], [facility] [address], [place] Lymphocytes/100 leukocytes 34.6 % Normal 22.0-44.0 [facility] Comment on above: Performed By: #### 6 9742-5, 98199-9, 38233-6, 28782-9, 61261- 4, 97938-7, 54978-5, 85605-5 ####[facility] [address], [place]#### 23295-8, 18046-5 ####[facility], [address], [place] MCH 29.4 Picograms Normal 27.0-34.0 [facility] Comment on above: Performed By: #### 6 9742-5, 58157-0, 82646-1, 16780-5, 05653- 4, 51429-4, 31972-5, 24142-7 ####[facility] [address], [place]#### 95656-1, 62272-2 ####[facility], [address], [place] MCHC mass conc (RBC) 33.0 g/dL Normal 32.0-36.0 [facility] Comment on above: Performed By: #### 6 9742-5, 33315-1, 87847-9, 72261-6, 80701- 4, 71175-8, 84338-8, 85129-3 ####[facility] [address], [place]#### 44763-8, 98436-5 ####[facility], [address], [place] MCV 89.2 fL Normal 80.0-97.0 [facility] Comment on above: Performed By: #### 6 9742-5, 64598-0, 10332-9, 12074-4, 28388- 4, 83686-0, 27497-0, 02086-0 ####[facility] [address], [place]#### 73111-4, 69340-9 ####[facility], [address], [place] Monocytes 0.30 thou/mcL Normal 0.00-0.90 [facility] Comment on above: Performed By: #### 6 9742-5, 03590-2, 37209-9, 05108-5, 80518- 4, 51751-9, 39683-9, 10491-2 ####[facility] [address], [place]#### 47667-4, 69691-7 ####[facility], [address], [place] Monocytes/100 leukocytes 6.0 % Normal 0.0-12.0 [facility] Comment on above: Performed By: #### 6 9742-5, 31679-6, 85683-9, 13024-2, 12709- 4, 71801-4, 16222-6, 46290-3 ####[address] [place], [place]#### 44759-6, 68054-5 ####[facility], [address], [place] Neutrophils 3.00 thou/mcL Normal 1.80-7.70 [facility] Comment on above: Performed By: #### 6 9742-5, 18396-1, 99578-2, 81924-0, 34166- 4, 69734-8, 08091-8, 98049-2 ####[facility] [address], [place]#### 82554-0, 54722-7 ####[facility], [facility] [address], [place] Neutrophils/100 WBC Auto (Bld) 57.4 % Normal 40.0-70.0 [facility] Comment on above: Performed By: #### 6 9742-5, 86868-6, 63309-8, 47207-7, 63360- 4, 15039-4, 33733-2, 61426-5 ####[facility] [address], [place]#### 75031-4, 31594-9 ####[facility], [address], [place] Platelet mean volume (PMV) 11.9 fL Normal 6.2-12.1 [facility] Comment on above: Performed By: #### 6 9742-5, 52783-8, 64755-8, 96722-9, 44529- 4, 78451-2, 91187-0, 88850-9 ####[facility] [address], [place]#### 62889-2, 89451-1 ####[facility], [address], [place] Platelets 173 thou/mcL Normal 142-424 [facility] Comment on above: Performed By: #### 6 9742-5, 69188-9, 83302-3, 74900-6, 28134- 4, 23173-8, 95155-5, 53599-9 ####[facility] [address] [place], [place]#### 43428-8, 63601-1 ####[facility], [address], [place] WBC (Leukocytes) 5.2 thou/mcL Normal 4.6-10.2 [facility] Comment on above: Performed By: #### 6 9742-5, 42720-7, 90145-0, 56342-7, 94324- 4, 72228-6, 53608-3, 25014-1 ####[facility] [address] [place], [place]#### 18230-8, 02290-7 ####[facility], [address] [address], [place] Comprehensive Metabolic Pane blanquita 04-20-2017 Alanine aminotransferase (ALT) 37 Units/L Normal 14-63 [facility] Comment on above: Performed By: #### 6 9742-5, 62242-2, 36744-8, 71337-9, 95781- 4, 50646-8, 62373-7, 79832-8 ####[facility] [address] [place], [place]#### 58451-9, 72149-0 ####[facility], [address], [place] Albumin 4.2 g/dL Normal 3.5-4.8 [facility] Comment on above: Performed By: #### 6 9742-5, 31125-9, 84321-0, 21543-7, 50925- 4, 04537-3, 25016-7, 33851-1 ####[facility] [address], [place]#### 65024-8, 80627-6 ####[facility], [address], [place] Alkaline phosphatase (ALP) 45 Units/L Normal 32-91 [facility] Comment on above: Performed By: #### 6 9742-5, 41229-4, 99922-1, 94480-7, 81993- 4, 59974-6, 10325-1, 41565-3 ####[facility] [address], [place]#### 53574-9, 17551-9 ####[facility], [address], [place] Anion gap 10.0 mmol/L Normal 6.0-18.0 [facility] Comment on above: Result Comment: PLEA NOTE:The calculated Anion Gap(AGAP) does not include Potassium. Performed By: #### 6 9742-5, 49790-2, 57203-2, 23637-8, 38728-2, 87024-7, 24700-5, 57962-6 ####[facility] [address], [place]#### 51318-4, 36192-0 ####[facility], [address], [place] Aspartate aminotransferase (AST) 29 Units/L Normal 15-41 [facility] Comment on above: Performed By: #### 6 9742-5, 68343-1, 64161-9, 58713-6, 03846- 4, 25288-0, 99418-3, 05937-8 ####[facility] [address] [place], [place]#### 05432-0, 19886-6 ####[facility], [address], [place] Bilirubin (total) 0.5 mg/dL Normal 0.3-1.2 [facility] Comment on above: Performed By: #### 6 9742-5, 88958-6, 46255-3, 76262-1, 21411- 4, 96718-1, 89327-4, 55615-4 ####[facility] [address] [place], [place]#### 35902-6, 02394-2 ####[facility], [address], [place] Calcium 9.4 mg/dL Normal 8.9-10.3 [facility] Comment on above: Performed By: #### 6 9742-5, 30322-7, 32373-7, 51331-7, 92519- 4, 09574-6, 41005-0, 13301-7 ####[facility] [address] [place], [place]#### 22283-1, 02855-1 ####[facility], [address], [place] Chloride 102 mmol/L Normal 98-107 [facility] Comment on above: Performed By: #### 6 9742-5, 99248-4, 79069-7, 58727-1, 19907- 4, 71861-0, 15938-6, 81005-9 ####[facility] [address] [place], [place]#### 88294-9, 20874-6 ####[facility], [address], [place] CO2 26 mmol/L Normal 22-32 [facility] Comment on above: Performed By: #### 6 9742-5, 09629-5, 68159-3, 21915-7, 09501- 4, 92965-5, 35234-5, 82446-6 ####[facility] [address] [place], [place]#### 36894-4, 84380-9 ####[facility], [address], [place] Creatinine 0.67 mg/dL Normal 0.60-1.30 [facility] Comment on above: Performed By: #### 6 9742-5, 28216-0, 25426-6, 60853-8, 72725- 4, 18111-0, 12451-3, 55337-7 ####[facility] [address] [place], [place]#### 38453-7, 79614-9 ####[facility], [address], [place] Glucose mass conc 119 mg/dL High 70-110 [facility] Comment on above: Performed By: #### 6 9742-5, 79093-3, 83763-0, 28208-7, 72856- 4, 36862-5, 94899-9, 70211-7 ####[facility] [address] [place], [place]#### 85523-4, 08205-7 ####[facility], [address], [place] Potassium molar conc 4.2 mmol/L Normal 3.6-5.1 [facility] Comment on above: Performed By: #### 6 9742-5, 32866-6, 31846-1, 70396-8, 53186- 4, 29615-9, 32027-5, 76635-7 ####[facility] [address] [place], [place]#### 14405-3, 82942-4 ####[facility], [address], [place] Protein 6.7 g/dL Normal 6.1-7.9 [facility] Comment on above: Performed By: #### 6 9742-5, 22934-3, 32490-1, 23080-4, 53095- 4, 01593-7, 37825-2, 89322-7 ####[facility] [address] [place], [place]#### 70907-4, 81649-0 ####[facility], [address], [place] Sodium 138 mmol/L Normal 136-145 [facility] Comment on above: Performed By: #### 6 9742-5, 94414-6, 67572-2, 73187-4, 44038- 4, 01502-4, 72997-5, 03130-6 ####[facility] [address] [place], [place]#### 89011-5, 94778-9 ####[facility], [address], [place] Urea nitrogen 9 mg/dL Normal 8-20 [facility] Comment on above: Performed By: #### 6 9742-5, 42420-2, 16866-7, 15069-5, 39614- 4, 67471-4, 36585-8, 90582-5 ####[place] [address] [place], [place]#### 90918-9, 06379-1 ####[facility], [address], [place] Culture Urine + Susceptibili tyon 04-20-2017 Urine culture, bacteria [facility] MicrobiologyPROCEDURE: Culture Urine + SusceptibilitySOURCE: Urine BODY SITE:COLLECTED DATE/TIME: 04/20/2017 09:07 EST RECEIVED DATE/TIME: 04/20/2017 09:07 ESTSTART DATE/TIME: 04/20/2017 09:07 EST FREE TEXT SOURCE: URINE-URINEINTERFACED REPORTSFinal Report []Verified Date/Time/Personnel: 04/21/2017 18:58 EST CONTRIBUTOR_SYSTEM, CO_PNNO GROWTH Normal [facility] Comment on above: Performed By: #### 6 9742-5, 78166-7, 20069-5, 18880-2, 39068- 4, 77728-5, 66469-4, 27061-4 ####[facility] [address] [place], [place]#### 37607-0, 18536-4 ####[facility], [address] [place], [place] GFRaaon 04-20-2017 eGFR (black) mL/min/{1.73_m2} Normal [facility] Comment on above: Result Comment: The MDRD equation has not been validated for those over 70 years, women, patients with serious co-morbid conditions, or with extremes of bodysize, muscle mass of nutritional status. Performed By: #### 6 9742-5, 48922-4, 00471-1, 44929-4, 52552-7, 61600-4, 61723-4, 97053-0 ####[facility] [address], [place]#### 00118-1, 39526-7 ####[facility], [address] [place], [place] GFRbbon 04-20-2017 eGFR (non-black) mL/min/{1.73_m2} Normal [facility] Comment on above: Performed By: #### 6 9742-5, 19066-4, 34832-7, 53613-0, 13227- 4, 47283-4, 91533-9, 10751-0 ####[facility] [address], [place]#### 42331-6, 86439-6 ####[facility], [address] [place], [place] HCG Quantitativeon 201 8 HCG Qn m[IU]/mL Normal [facility] Comment on above: Result Comment: [...] immunoassay method. Performed By: #### 6 9742-5, 41610-8, 84751-9, 13103-6, 15243-3, 85364-3, 70764-3, 88612-4 ####[facility] [address], [place]#### 20566-8, 63598-0 ####[facility], [address] [place], [place] HIV 1 Antibodyon 04-20-2017 HIV Screen NONREAC Normal NONREAC [facility] Comment on above: Result Comment: This is a 4th generation test (P24 AG,HIV-1 AB, HIV-2 AB)Specimens with preliminary reactive results will be confirmed by HIV1/2Differentiation test (CoupFlip). THE IDENTITY OF A PERSON ON WHOM [...] equitable relief. Performed By: #### 6 9742-5, 95089-7, 10771-7, 74436-2, 58701-3, 87889-6, 82377-1, 53750-0 ####[facility] [address], [place]#### 02505-4, 26681-6 ####[facility], [address] [place], [place] Hepatitis A (HAAb) Antibody IgMon 04-20-2017 Hepatitis A (HAAb) Antibody IgM Negative Normal NEGATIVE [facility] Comment on above: Result Comment: Hepa titis A Virus Antibody-IgM Specific. Performed By: #### 6 9742-5, 95500-2, 18937-2, 68491-3, 49776-4, 85852-7, 73069-0, 11487-8 ####[facility] [address], [place]#### 08363-0, 35126-9 ####[facility], [address], [place] Hepatitis B Core Antibody To shirley 04-20-2017 Interpretation and review of laboratory results Negative Normal NEGATIVE [facility] Comment on above: Performed By: #### 6 9742-5, 81314-4, 34990-0, 95047-4, 27553- 4, 19562-1, 80747-6, 93281-8 ####[facility] [address] [place], [place]#### 74688-0, 34968-1 ####[facility], [facility] [address], [place] Hepatitis B Surface Antibody on 04-20-2017 Hepatitis B Surface Antibody Interp Negative Normal NEGATIVE [facility] Comment on above: Performed By: #### 6 9742-5, 99522-3, 85572-9, 29862-0, 89240- 4, 26081-1, 39695-5, 21871-9 ####[facility] [address] [place], [place]#### 58276-3, 79427-6 ####[facility], [address], [place] Magnesium Levelon 04-20-2017 Magnesium 2.0 mg/dL Normal 1.8-2.5 [facility] Comment on above: Performed By: #### 6 9742-5, 01967-1, 46002-5, 74976-9, 07003- 4, 01019-9, 08622-0, 16550-1 ####[facility] [address], [place]#### 66952-4, 24624-5 ####[facility], [facility] [address], [place] Phosphorus Levelon 8 Phosphorus Level 3.8 mg/dL Normal 2.4-4.7 [facility] Comment on above: Performed By: #### 6 9742-5, 23034-9, 88825-8, 42588-2, 54273- 4, 39822-1, 83695-5, 25156-3 ####[facility] [address], [place]#### 67376-7, 04191-3 ####[facility], [address] [place], [place] Syphilis Screenon 04-20-2017 Syphilis Screen NONREAC Normal NONREAC [facility] Comment on above: Result Comment: No s erologic evidence of syphilis. Performed By: #### 6 9742-5, 30377-2, 41758-7, 94469-3, 76040-7, 77041-7, 50306-6, 78249-8 ####[facility] [address], [place]#### 54315-4, 69832-2 ####[facility], [address] [place], [place] Vital Signs Date Time Vital Sign Value Performing Clinician Facility 08-28-2024 10:35-0400 Body mass index (BMI) [Ratio] 29.94 kg/m2 Jaguar Ingrid DO Work Phone: [facility] 08-28-2024 10:35-0400 Body weight 74.84 kg Jaguar Ingrid DO Work Phone: [facility] 08-28-2024 10:35-0400 Diastolic blood pressure 72 mm[Hg] Jaguar Ingrid DO Work Phone: [facility] 08-28-2024 10:35-0400 Systolic blood pressure 118 mm[Hg] Jaguar Ingrid DO Work Phone: [facility] 07-19-2024 10:03-0400 Body mass index (BMI) [Ratio] 28.8 kg/m2 Corby Royal NP Work Phone: [facility] 07-19-2024 10:03-0400 Body weight 72.01 kg Corby Royal NP Work Phone: [facility] 07-19-2024 10:03-0400 Diastolic blood pressure 60 mm[Hg] Corby Royal BATTERY INSPECTOR Work Phone: [facility] 07-19-2024 10:03-0400 Systolic blood pressure 100 mm[Hg] Corby Genny BATTERY INSPECTOR Work Phone: [facility] 06-29-2024 17:00-0400 Diastolic blood pressure 46 mm[Hg] Yaz Hollis DO Work Phone: [facility] 06-29-2024 17:00-0400 Heart rate 85 /min GAdeline Hollis DO Work Phone: [facility] 06-29-2024 17:00-0400 Respiratory rate 16 /min Yaz Hollis DO Work Phone: [facility] 06-29-2024 17:00-0400 SaO2% (BldA) [Mass fraction] 98 % Yaz Hollis DO Work Phone: [facility] 06-29-2024 17:00-0400 Systolic blood pressure 114 mm[Hg] Yaz Hollis DO Work Phone: [facility] 06-29-2024 15:13-0400 Body temperature 97.8 [degF] Yaz Hollis DO Work Phone: [facility] 06-29-2024 15:07-0400 Body height 160.02 cm Yaz Hollis DO Work Phone: [facility] 06-29-2024 15:07-0400 Body weight 68.03 kg Yaz Hollis DO Work Phone: [facility] 06-21-2024 13:01-0400 Body mass index (BMI) [Ratio] 27.67 kg/m2 Jaguar Ingrid DO Work Phone: [facility] 06-21-2024 13:01-0400 Body weight 69.17 kg Jaguar Ingrid DO Work Phone: [facility] 06-21-2024 13:01-0400 Diastolic blood pressure 66 mm[Hg] Jaguar Ingrid DO Work Phone: [facility] 06-21-2024 13:01-0400 Systolic blood pressure 104 mm[Hg] Jaguar Ingrid DO Work Phone: [facility] 06-07-2024 14:10-0400 Body temperature 97.9 [degF] Yaz Hollis DO Work Phone: [facility] 06-07-2024 14:10-0400 Diastolic blood pressure 72 mm[Hg] Yaz Hollis DO Work Phone: [facility] 06-07-2024 14:10-0400 Heart rate 88 /min Yaz Hollis DO Work Phone: [facility] 06-07-2024 14:10-0400 Respiratory rate 20 /min Yaz Hollis DO Work Phone: [facility] 06-07-2024 14:10-0400 SaO2% (BldA) [Mass fraction] 98 % Yaz Hollis DO Work Phone: [facility] 06-07-2024 14:10-0400 Systolic blood pressure 119 mm[Hg] Yaz Hollis DO Work Phone: [facility] 06-07-2024 11:07-0400 Body height 160.02 cm Yaz Hollis DO Work Phone: [facility] 06-07-2024 11:07-0400 Body weight 69.3 kg Yaz Hollis DO Work Phone: [facility] 05-25-2024 13:40-0500 Body mass index (BMI) [Ratio] 28.27 kg/m2 Sulema PATEL Work Phone: [facility] 05-25-2024 13:40-0500 Body weight 70.67 kg Sulema PATEL Work Phone: [facility] 05-25-2024 13:40-0500 Diastolic blood pressure 60 mm[Hg] Sulema PATEL Work Phone: [facility] 05-25-2024 13:40-0500 Systolic blood pressure 110 mm[Hg] Sulema PATEL Work Phone: [facility] 05-19-2024 12:23-0500 Diastolic blood pressure 55 mm[Hg] GAdeline Hollis DO Work Phone: [facility] 05-19-2024 12:23-0500 Heart rate 94 /min G. Enoch Smallftan DO Work Phone: [facility] 05-19-2024 12:23-0500 Respiratory rate 18 /min G. Enoch Smallftan DO Work Phone: [facility] 05-19-2024 12:23-0500 SaO2% (BldA) [Mass fraction] 99 % GAdeline Smalltoniemadeline DO Work Phone: [facility] 05-19-2024 12:23-0500 Systolic blood pressure 97 mm[Hg] GAdeline Smithan DO Work Phone: [facility] 05-19-2024 08:55-0500 Body height 160.02 cm G. Enoch Hollis DO Work Phone: [facility] 05-19-2024 08:55-0500 Body temperature 97.9 [degF] Yaz Hollis DO Work Phone: [facility] 05-19-2024 08:55-0500 Body weight 67.85 kg Yaz Smithan DO Work Phone: [facility] 05-16-2024 12:56-0500 Diastolic blood pressure 80 mm[Hg] G. Enoch Smalltoniean DO Work Phone: [facility] 05-16-2024 12:56-0500 Heart rate 94 /min GAdeline Smallftan DO Work Phone: [facility] 05-16-2024 12:56-0500 Respiratory rate 16 /min GAdeline Smallftmadeline DO Work Phone: [facility] 05-16-2024 12:56-0500 SaO2% (BldA) [Mass fraction] 99 % Yaz Hollis DO Work Phone: [facility] 05-16-2024 12:56-0500 Systolic blood pressure 122 mm[Hg] Yaz Hollis DO Work Phone: [facility] 05-16-2024 10:08-0500 Body height 160.02 cm Yaz Hollis DO Work Phone: [facility] 05-16-2024 10:08-0500 Body temperature 97.7 [degF] Yaz Hollis DO Work Phone: [facility] 05-16-2024 10:08-0500 Body weight 68.03 kg Yaz Hollis DO Work Phone: [facility] 04-24-2024 14:45-0500 Body mass index (BMI) [Ratio] 27.16 kg/m2 Jaguar Ingrid DO Work Phone: [facility] 04-24-2024 14:45-0500 Body weight 67.9 kg Jaguar Ingrid DO Work Phone: [facility] 04-24-2024 14:45-0500 Diastolic blood pressure 66 mm[Hg] Jaguar Ingrid DO Work Phone: [facility] 04-24-2024 14:45-0500 Systolic blood pressure 108 mm[Hg] Jaguar Ingrid DO Work Phone: [facility] 04-05-2024 19:16-0500 Diastolic blood pressure 71 mm[Hg] Yaz Hollis DO Work Phone: [facility] 04-05-2024 19:16-0500 Heart rate 87 /min Yaz Hollis DO Work Phone: [facility] 04-05-2024 19:16-0500 Respiratory rate 20 /min Yaz Hollis DO Work Phone: [facility] 04-05-2024 19:16-0500 SaO2% (BldA) [Mass fraction] 97 % Yaz Hollis DO Work Phone: [facility] 04-05-2024 19:16-0500 Systolic blood pressure 106 mm[Hg] Yaz Hollis DO Work Phone: [facility] 04-05-2024 14:46-0500 Body height 160.02 cm Yaz Hollis DO Work Phone: [facility] 04-05-2024 14:46-0500 Body temperature 97.9 [degF] Yaz Hollis DO Work Phone: [facility] 04-05-2024 14:46-0500 Body weight 65 kg Yaz Hollis DO Work Phone: [facility] 03-24-2024 11:29-0500 Body mass index (BMI) [Ratio] 24.49 kg/m2 [facility] 03-24-2024 11:29-0500 Body weight 61.24 kg [facility] 03-24-2024 11:29-0500 Diastolic blood pressure 68 mm[Hg] [facility] 03-24-2024 11:29-0500 Systolic blood pressure 112 mm[Hg] [facility] 03-04-2024 13:32-0500 Diastolic blood pressure 70 mm[Hg] Yaz Hollis DO Work Phone: [facility] 03-04-2024 13:32-0500 Heart rate 76 /min Yaz Hollis DO Work Phone: [facility] 03-04-2024 13:32-0500 Respiratory rate 20 /min Yaz Hollis DO Work Phone: [facility] 03-04-2024 13:32-0500 SaO2% (BldA) [Mass fraction] 100 % Yaz Hollis DO Work Phone: 4(537)579-999226 [address] 03-04-2024 13:32-0500 Systolic blood pressure 115 mm[Hg] Yaz Hollis DO Work Phone: 6(377)020-529067 [place] [address] 03-04-2024 11:14-0500 Body height 160.02 cm Yaz Hollis DO Work Phone: 9(170)435-173467 [place] [address] 03-04-2024 11:14-0500 Body temperature 97.9 [degF] Yaz Hollis DO Work Phone: 0(851)887-048867 [place] [address] 03-04-2024 11:14-0500 Body weight 63 kg Yaz Hollis DO Work Phone: 2(231)835-190126 [address] 11-25-2023 17:46-0400 Body height 160.02 cm DO Yaz Hollis Work Phone: 0(737)130-220426 [address] 11-25-2023 17:46-0400 Body temperature 98 [degF] DO Yaz Hollis Work Phone: 5(404)775-401226 [address] 11-25-2023 17:46-0400 Body weight 65.77 kg DO Yaz Hollis Work Phone: 6(791)927-960867 [place] [address] 11-25-2023 17:46-0400 Diastolic blood pressure 71 mm[Hg] DO Yaz Hollis Work Phone: 3(083)133-473467 [place] [address] 11-25-2023 17:46-0400 Heart rate 68 /min DO Yaz Hollis Work Phone: [facility] 11-25-2023 17:46-0400 Respiratory rate 18 /min DO Yaz Hollis Work Phone: 8(004)348-768867 [place] [address] 11-25-2023 17:46-0400 SaO2% (BldA) [Mass fraction] 97 % DO Yaz Hollis Work Phone: [facility] 11-25-2023 17:46-0400 Systolic blood pressure 107 mm[Hg] DO Yaz Hollis Work Phone: [facility] 12-02-2022 13:15-0400 Body height 160.02 cm Claribelbrie Mora Other [facility] Other 12-02-2022 13:15-0400 Body mass index (BMI) [Ratio] 25.86 kg/m2 Claribel Mora Other [facility] Other 12-02-2022 13:15-0400 Body weight 66.23 kg Claribel Mroa Other [facility] Other 12-02-2022 13:15-0400 Diastolic blood pressure 66 mm[Hg] Claribel Abby Other [facility] Other 12-02-2022 13:15-0400 Respiratory rate 18 /min Claribel Mora Other [facility] Other 12-02-2022 13:15-0400 SaO2% (BldA) [Mass fraction] 98 % Claribelbrie Mora Other [facility] Other 12-02-2022 13:15-0400 Systolic blood pressure 100 mm[Hg] Claribel Mora Other [facility] Other 07-16-2022 14:45-0400 Body height 160.02 cm Claribeljessica Mora Other [facility] Other 07-16-2022 14:45-0400 Body mass index (BMI) [Ratio] 27.22 kg/m2 Claribelbrie Mora Other [facility] Other 07-16-2022 14:45-0400 Body weight 69.72 kg Claribeljessica Mora Other [facility] Other 07-16-2022 14:45-0400 Diastolic blood pressure 64 mm[Hg] Claribel Mora Other [facility] Other 07-16-2022 14:45-0400 Respiratory rate 18 /min Claribel Mora Other [facility] Other 07-16-2022 14:45-0400 SaO2% (BldA) [Mass fraction] 97 % Claribel Mora Other [facility] Other 07-16-2022 14:45-0400 Systolic blood pressure 104 mm[Hg] Claribel Mora Other [facility] Other 06-04-2022 15:15-0400 Body height 160.02 cm Adin Gan Other [facility] Other 06-04-2022 15:15-0400 Body mass index (BMI) [Ratio] 27.28 kg/m2 Adin Gan Other [facility] Other 06-04-2022 15:15-0400 Body weight 69.85 kg Adin Gan Other [facility] Other 06-04-2022 15:15-0400 Diastolic blood pressure 80 mm[Hg] Adin Gan Other [facility] Other 06-04-2022 15:15-0400 Respiratory rate 18 /min Adin Gan Other [facility] Other 06-04-2022 15:15-0400 SaO2% (BldA) [Mass fraction] 98 % Adin Gan Other [facility] Other 06-04-2022 15:15-0400 Systolic blood pressure 126 mm[Hg] Adin Gan Other [facility] Other 05-25-2022 15:30-0500 Body height 160.02 cm Adin Gan Other [facility] Other 05-25-2022 15:30-0500 Body mass index (BMI) [Ratio] 27.28 kg/m2 Adin Gan Other [facility] Other 05-25-2022 15:30-0500 Body weight 69.85 kg Adin Gan Other [facility] Other 05-25-2022 15:30-0500 Diastolic blood pressure 80 mm[Hg] Adin Gan Other [facility] Other 05-25-2022 15:30-0500 Respiratory rate 18 /min Adin Gan Other [facility] Other 05-25-2022 15:30-0500 SaO2% (BldA) [Mass fraction] 99 % Adin Gan Other [facility] Other 05-25-2022 15:30-0500 Systolic blood pressure 124 mm[Hg] Adin Gan Other [facility] Other 05-30-2021 03:06-0500 Body weight 72.[address] RUSTAM SCALES [facility] Comment on above: Performed By: #### AFPMAT #### [facility] [address] [place] [address] Dr. Lilia Calvillo Encounters Encounter Date Encounter [...] Not Available Start: 08-10-2024 End: 08-10-2024 ambulatory JAGURA INGRID Not Available Start: 07-19-2024 End: 07-19-2024 flow sheet Corby Royal BATTERY INSPECTOR Work Phone: [facility] Comment on above: Upper respiratory tr act infection, unspecified type (Primary Dx); Second trimester ; 25 weeks gestation of ; Vomiting complicating Start: 07-19-2024 End: 07-19-2024 ambulatory CORBY ROYAL Not Available Start: 06-29-2024 End: 06-29-2024 Emergency department patient visit Yaz Hollis DO Work Phone: [facility] Work Phone: Start: 06-21-2024 End: [...] patient visit Yaz Hollis DO Work Phone: [facility] Work Phone: Start: 05-25-2024 End: 05-25-2024 [...] patient visit Yaz Hollis DO Work Phone: [facility] Work Phone: Start: 05-16-2024 End: 05-16-2024 Emergency department patient visit Yaz Hollis DO Work Phone: [facility] Work Phone: Start: 04-24-2024 End: 04-24-2024 [...] patient visit Yaz Hollis DO Work Phone: [facility] Work Phone: Start: 04-03-2024 End: 04-03-2024 [...] patient visit Yaz Hollis DO Work Phone: [facility] Work Phone: Start: 11-25-2023 End: 11-25-2023 Emergency department patient visit DO Yaz Hollis Work Phone: [facility] Work Phone: Start: 10-05-2023 End: 10-05-2023 ambulatory RICARDO POWELL Not Available Start: 12-02-2022 End: 12-02-2022 ambulatory Claribelbrie Mora Other [facility] Other Start: 12-02-2022 Office outpatient vi sit 25 minutes Claribelbrie Mora [facility] Start: 07-16-2022 End: 07-16-2022 ambulatory Claribel Mora Other [facility] Other Start: 07-16-2022 Office outpatient vi sit 25 minutes Claribel Mora [facility] Start: 06-08-2022 End: 06-08-2022 ambulatory Adin Gan Other [facility] Other Start: 06-08-2022 Telephone encounter Adin Ahn [facility] [place] Start: 06-05-2022 End: 06-05-2022 ambulatory Adin Gan Other [facility] Other Start: 06-05-2022 Telephone encounter Adin Ahn [facility] [place] Start: 06-04-2022 End: 06-04-2022 Patient encounter procedure DO Adin Gan Work Phone: [facility] Start: 06-04-2022 End: 06-04-2022 ambulatory DO Adin Gan Work Phone: [place] [facility] Work Phone: Start: 06-04-2022 Office outpatient vi sit 15 minutes Adin Gan [facility] Family [facility] [place] Start: 05-25-2022 End: 05-25-2022 ambulatory Adin Gan Other [facility] Other Start: 05-25-2022 Office outpatient vi sit 15 minutes Adin Gan [facility] Medicine [place] Start: 05-22-2022 End: 05-22-2022 ambulatory Adin Gan Other [facility] Other Start: 05-22-2022 Telephone encounter Adin MA G [facility] [place] Start: 05-07-2022 End: 05-07-2022 ambulatory Adin Gan Other [facility] Other Start: 05-07-2022 Telephone encounter Adin MA G [facility] Medicine [place] Start: 04-01-2022 End: 04-01-2022 ambulatory Nabil Mcgraw Other [facility] Other Start: 04-01-2022 Telephone encounter Nabil Mcgraw [facility] [place] Start: 02-17-2022 End: 02-17-[address] JAGUAR QUINTERO Facility:[facility]1 Start: 10-22-2021 Encounter for preprocedural laboratory examination DR JAGUAR QUINTERO [facility] Start: 10-21-2021 End: 10-21-[address] JAGUAR QUINTERO Facility:[facility] Start: 10-16-2021 End: 10-18-2021 Evaluation and management of inpatient DR JAGUAR QUINTERO Facility:[facility] Start: 10-14-2021 Encounter for preprocedural laboratory examination DR JAGUAR QUINTERO [facility] Start: 10-13-2021 End: 10-14-2021 ambulatory NONE [...] 09-08-2024 US OB BPP W NON-STRESS Jaguar Inrgid DO Work Phone: Start: 09-06-2024 US OB GROWTH Generic Ex ternal Data Provider Start: 08-28-2024 Urnls dip stick/tabl et rgnt non-auto w/o micrscp Jaguar Ingrid DO Work Phone: Start: 07-19-2024 Urnls dip stick/tabl et rgnt non-auto w/o micrscp Corby Royal BATTERY INSPECTOR Work Phone: Start: 06-21-2024 Urnls dip stick/tabl [...] Screening for malign ant neoplasm of cervix [facility] Start: 01-02-2026 Screening for malign ant neoplasm of cervix [facility] Start: 11-20-2024 Influenza vaccination Influenz a Vaccine (Season Ended) [facility] Start: 09-11-2024 End: 09-11-2024 Patient encounter procedure 09/11/2024 1:50 PM EDT Routine [facility] [address] [id number] Sulema Lau PA [address] [place] [address] [facility] Start: 09-11-2024 End: 09-11-2024 Patient encounter procedure 09/11/2024 9:30 AM EDT Routine [facility] [address] [place] [phone] Sulema Lau PA [address] [place] [address] [facility] Start: 08-28-2024 End: 08-28-2025 Transferrin [Mass/volume] in Serum or Plasma Transferrin Lab Routine Third trimester Gestational diabetes mellitus (GDM), antepartum, gestational diabetes method of control unspecified Elevated glucose tolerance test Anemia affecting in third trimester Expected: 08/28/2024 (Approximate), Expires: 08/28/2025 [facility] Comment on above: Expected: 08/28/2024 (Approximate), Expires: 08/28/2025 Start: 08-28-2024 End: 02-27-2025 US biophysical profile w non stress test US biophysical profile w non stress test Imaging Routine Third trimester Anemia affecting in third trimester Expected: 08/28/2024 (Approximate), Expires: 02/27/2025 [facility] Work Phone: Comment on above: Expected: 08/28/2024 (Approximate), Expires: 02/27/2025 Start: 08-28-2024 End: 12-28-2024 US for US OB follow up transabdominal approach Imaging Routine Third trimester Gestational diabetes mellitus (GDM), antepartum, gestational diabetes method of control unspecified Elevated glucose tolerance test Anemia affecting in third trimester Expected: 08/28/2024, Expires: 12/28/2024 [facility] Comment on above: Expected: 08/28/2024 , Expires: 12/28/2024 Start: 08-28-2024 End: 08-28-2024 Patient encounter procedure 08/28/2024 10:50 AM EDT Routine [facility] [address] [id number] Jaguar Quintero DO [address] [place] [address] Arrived [facility] Comment on above: Arrived Start: 08-10-2024 End: 08-10-2024 Patient encounter procedure 08/10/2024 11:10 AM EDT Routine [facility] [address] [id number] Jaguar Quintero DO [address] [place] [address] [facility] Start: 07-19-2024 End: 07-19-2024 Patient encounter procedure 07/19/2024 10:30 AM EDT Routine [facility] [address] [place] [address] Sulema Lau PA [address] [place] [address] [facility] Start: 07-19-2024 End: 07-19-2024 Professional / ancillary services management 07/19/2024 9:30 AM EDT Ancillary Procedure [facility] [address] [phone] [facility] Start: 06-29-2024 Urine culture [facility] Start: 06-29-2024 Bacteria identified in Urine by Culture Urine Culture [facility] Start: 06-21-2024 End: 06-21-2025 CBC panel - Blood by Automated count CBC Lab Routine Diabetes mellitus screening Expected: 06/21/2024 (Approximate), Expires: 06/21/2025 [facility] Comment on above: Expected: 06/21/2024 (Approximate), Expires: 06/21/2025 Start: 06-21-2024 End: 06-21-2025 Measurement of glucose 1 hour after glucose challenge for glucose tolerance test Glucose tolerance, 1 hour Lab Routine Diabetes mellitus screening Expected: 06/21/2024 (Approximate), Expires: 06/21/2025 [facility] Comment on above: Expected: 06/21/2024 [...] EDT Ancillary Procedure [facility] [address] [place] [address] [facility] Start: 05-25-2024 End: 05-25-2025 [...] gestational age Expected: 03/24/2024 (Approximate), Expires: 03/24/2025 [facility] Work Phone: Comment on above: Expected: 03/24/2024 (Approximate), Expires: 03/24/2025 Start: 03-24-2024 End: 03-24-2025 Drugs of abuse panel - Urine by Screen method Rapid drug screen, urine Lab Routine , unspecified gestational age Encounter for supervision of normal first in first trimester Expected: 03/24/2024 (Approximate), Expires: 03/24/2025 [facility] Comment on above: Expected: 03/24/2024 (Approximate), Expires: 03/24/2025 Start: 11-21-2023 Influenza vaccination Influenza Vacc ine (#1) [facility] Start: 2014 Screening for malign ant neoplasm of cervix Pap Smear [facility] Bacteria identified in Urine by Culture Urine culture Microbiology Routine Missed menses Ordered: 03/24/2024 [facility] Comment on above: Ordered: 03/24/2024 CBC W Auto Different ial panel - Blood CBC and differential Lab Routine Missed menses , unspecified gestational age Ordered: 03/24/2024 [facility] Comment on above: Ordered: 03/24/2024 CHLAMYDIA TRACHOMATI S (GENITO/STI) CHLAMYDIA TRACHOMATIS (GENITO/STI) Lab Routine Exposure to STD Ordered: 05/25/2024 [facility] Comment on above: Ordered: 05/25/2024 Cytology Cervical or vaginal smear or scraping study Pap Smear Pathology and Cytology Routine Well woman exam with routine gynecological exam Ordered: 05/25/2024 [facility] Comment on above: Ordered: 05/25/2024 Ferritin [Mass/volum e] in Serum or Plasma Ferritin Lab Routine Third trimester Anemia affecting in third trimester Ordered: 08/28/2024 [facility] Comment on above: Ordered: 08/28/2024 Hemoglobin A1c/Hemoglobin.total in Blood Hemoglobin A1c Lab Routine Missed menses , unspecified gestational age Ordered: 03/24/2024 [facility] Comment on above: Ordered: 03/24/2024 Hepatitis B virus surface Ag [Presence] in Serum or Plasma by Immunoassay Hepatitis B surface antigen Lab Routine Missed menses , unspecified gestational age Ordered: 03/24/2024 [facility] Comment on above: Ordered: 03/24/2024 Hepatitis C virus Ab [Presence] in Serum or Plasma by Immunoassay Hepatitis C antibody Lab Routine Missed menses , unspecified gestational age Ordered: 03/24/2024 [facility] Comment on above: Ordered: 03/24/2024 HIV-1/HIV-2 antigen/antibody combination immunoassay HIV-1 and HIV-2 antibodies Lab Routine Missed menses , unspecified gestational age Ordered: 03/24/2024 [facility] Comment on above: Ordered: 03/24/2024 Human papilloma viru s DNA [Presence] in Unspecified specimen by Probe with amplification HPV DNA probe, amplified Microbiology Routine Well woman exam with routine gynecological exam Ordered: 05/25/2024 [facility] Comment on above: Ordered: 05/25/2024 Neisseria gonorrhoea e DNA [Presence] in Unspecified specimen by TORRES with probe detection Neisseria gonorrhea DNA probe, direct Lab Routine Exposure to STD Ordered: 05/25/2024 [facility] Comment on above: Ordered: 05/25/2024 Patient Education [facility] Work Phone: Patient referral [facility] Work Phone: Reagin Ab [Presence] in Serum by RPR RPR Lab Routine Missed menses , unspecified gestational age Ordered: 03/24/2024 [facility] Comment on above: Ordered: 03/24/2024 Rubella antibody, IgG Rubella an tibody, IgG Lab Routine Missed menses , unspecified gestational age Ordered: 03/24/2024 [facility] Comment on above: Ordered: 03/24/2024 SURESWAB(R) ADVANCED VAGINITIS PLUS, TMA SURESWAB(R) ADVANCED VAGINITIS PLUS, TMA Pathology and Cytology Routine Vaginal discharge Ordered: 05/25/2024 [facility] Work Phone: Comment on above: Ordered: 05/25/2024 Immunizations Immunization Date Immunization Notes Care Provider Trace luis 06-30-2019 tetanus toxoid, reduced diphtheria toxoid, and acellular pertussis vaccine, adsorbed DO Adin Gan Work Phone: [facility] 05-12-2013 influenza, seasonal, injectable, preservative free Noms Nurse [facility] 05-12-2013 influenza virus vaccine, unspecified formulation [facility] 10-19-2012 tetanus toxoid, reduced diphtheria toxoid, and acellular pertussis vaccine, adsorbed Noms Nurse [facility] 02-25-2012 influenza, seasonal, injectable Noms Nurse [facility] 01-09-2011 influenza virus vaccine, live, attenuated, for intranasal use Noms Nurse [facility] 02-28-2007 influenza, seasonal, injectable Noms Nurse [facility] 02-01-2006 influenza, seasonal, injectable Noms Nurse [facility] NEGATED: Highlighted row has not occurred!07-16-2022 influenza, seasonal, injectable Patient Objection Claribel Mora Other [facility] Other Payers Date Payer Category Payer [facility] er [id number] 2023 Unknown [id number] 2023 Private Health Insurance [id number] 2017 Unknown [id number] 1993 Unknown [id number] 2.16.840.1.083070.3.579.2. 593 1993 Unknown [id number] .16.840.1.597809.3.579.2. 593 1993 Unknown [id number] 2.16.840.1.510470.3.579.2. 593 1993 Unknown [id number] 2.16.840.1.846571.3.579.2. 593 1993 Unknown [id number] 2.16.840.1.677165.3.579.2. 59 1993 Unknown [id number] 2.16.840.1.213263.3.579.2. 593 1993 Unknown [id number] 2.16.840.1.629442.3.579.2. 59 1993 Unknown [id number] 2.16.840.1.250166.3.579.2. 593 1993 Unknown [id number] 2.16840.1.737500.3.579.2. 59 1993 Unknown [id number] 2.16.840.1.085429.3.579.2. 593 1993 Unknown [id number] 2.16.840.1.230598.3.579.2. 59 1993 Unknown [id number] 2.16840.1.444278.3.579.2. 125 1993 Unknown [id number] 2.16840.1.311796.3.579.2. 125 1993 Unknown [id number] 2.16.840.1.258115.3.579.2. 125 1993 Unknown [id number] 2.16.840.1.391732.3.579.2. 1258 1993 Unknown [id number] 2.16.840.1.619027.3.579.2. 125 1993 Unknown [id number] 2.16.840.1.906264.3.579.2. 125 1993 Unknown [id number] 2.16.840.1.758122.3.579.2. 1258 1993 Unknown [id number] 2.840.1.838224.3.579.2. 1258 1993 Unknown [id number] 2.840.1.173427.3.579.2. 1258 1993 Unknown [id number] 2.840.1.494399.3.579.2. 1258 1993 Unknown [id number] 2.840.1.372126.3.579.2. 1258 1993 Unknown [id number] 2.0.1.454147.3.579.2. 1258 1959 Self-pay 1959 Unknown [id number] 1959 Unknown [id number] Medicaid [id number] Medicaid Bernard Advantage [id number] 401 [id number] Unknown [id number] 2.0.1.989537.3.579.2. 593 Unknown [id number] 2.840.1.428485.3.579.2. 531 Unknown [id number] .840.1.039686.3.579.2. 531 Unknown [id number] .0.1.776021.3.579.2. 531 Unknown [id number] .840.1.439055.3.579.2. 531 Unknown [id number] 2.0.1.591103.3.579.2. 531 Unknown [id number] 2.840.1.671927.3.579.2. 531 Unknown [id number] 2.840.1.531107.3.579.2. 531 Social History Date Type Detail Facility Start: 10-05-2023 Sex Assigned At [facility] Start: 04-28-2020 End: 06-29-2024 Tobacco smoking status NHIS Never smoked tobacco (finding) [facility] Start: 1995 Sex Assigned At Female [facility] Start: 11-25-2023 End: 03-22-2017 Tobacco smoking status NHIS Smoker (finding) [facility] Start: 10-05-2023 Tobacco smoking status MNIS Ex-smoker [facility] End: 03-22-2017 History of tobacco use Cigarette Smoker [facility] Start: 10-05-2023 Tobacco use and exposure Smokeless tobacco non-user [facility] Start: 03-24-2024 End: 08-10-2024 Alcoholic beverage intake Ex-drinker (finding) [facility] Start: 10-05-2023 History of [address] [facility] Start: 06-20-[address] [facility] Start: 06-20-2023 Tobacco Comment Last smoked : 1- [address] [facility] Start: 06-20-2023 Alcohol Comment caffeine intake : 1-[address] [facility] Start: 02-04-2024 [facility] Start: 07-12-2023 Gender identity Identifies as female gender (finding) [facility] Start: 07-12-2023 Sexual orientation Heterosexual (finding) [facility] Start: 04-05-2024 End: 06-29-2024 Sex Female (finding) [facility] Medical Equipment Procedure Code Equipment Code Equipment Origin al Text Equipment Identifier Dates 1 strip by In Vi tro route Daily Use in the morning prior to breakfast, 1 hour after each meal for a total of 4times daily. [id number] Start: 08-28-2024 End: 09-27-2024 1 each by In Vit ro route Daily Use to check FSBS four times daily [id number] Start: 08-28-2024 End: 09-27-2024 Clinical Notes 08-20-2017 [...] to check FSBS. Blood Glucose Monitoring Suppl (D-NOWBOX Glucometer) w/Device kit 1 kit, Does not [...] 04/07/2023 Constipation 04/07/2023 Chronic GERD 04/07/2023 Goiter ([facility]/HCC) 04/07/2023 Migraine without aura and without [...] nursing note reviewed. Exam conducted with a pattern and chain maker present. Vitals: Estimated body mass index is [...] Patient given orders and orders sent to [facility] Scheduling and [facility]BC. Patient was given orders for Transferrin and Ferratin. Patient educated on how to check FSBS and given direct extension to fisheries manager for any questions/concerns. Nursing will reach [...] Jaguar Quintero DO documented in this encounter [facility] 07-19-2024 History of Presen t illness Narrative [...] 04/07/2023 Constipation 04/07/2023 Chronic GERD 04/07/2023 Goiter ([facility]/HCC) 04/07/2023 Migraine without aura and without status migrainosus, not intractable ([facility]/HCC) 04/07/2023 Moderately severe depression ([facility]/HCC) 04/07/2023 Hyperemesis gravidarum 05/19/2024 Resolved Ambulatory [...] Diagnosis Date Allergic Depression (CMS/HCC) Drug addiction ([facility]/HCC) Heroin , alcohol sober 2015 to [...] nursing note reviewed. Exam conducted with a pattern and chain maker present. Vitals: Estimated body mass index is [...] Corby Royal NP documented in this encounter [facility] 06-21-2024 History of Presen t illness Narrative [...] 04/07/2023 Constipation 04/07/2023 Chronic GERD 04/07/2023 Goiter ([facility]/HCC) 04/07/2023 Migraine without aura and without [...] nursing note reviewed. Exam conducted with a pattern and chain maker present. Vitals: Estimated body mass index is [...] Jaguar Quintero DO documented in this encounter [facility] 05-25-2024 History of Presen t illness Narrative [...] 04/07/2023 Constipation 04/07/2023 Chronic GERD 04/07/2023 Goiter ([facility]/HCC) 04/07/2023 Migraine without aura and without status migrainosus, not intractable ([facility]/HCC) 04/07/2023 Moderately severe depression ([facility]/HCC) 04/07/2023 Hyperemesis gravidarum 05/19/2024 Resolved Ambulatory [...] nursing note reviewed. Exam conducted with a pattern and chain maker present. Vitals: Estimated body mass index is [...] of: JORGE Coon documented in this encounter [facility] 04-24-2024 History of Presen t illness Narrative [...] 04/07/2023 Constipation 04/07/2023 Chronic GERD 04/07/2023 Goiter ([facility]/HCC) 04/07/2023 Migraine without aura and without status migrainosus, not intractable ([facility]/HCC) 04/07/2023 Moderately severe depression (CMS/HCC) 04/07/2023 Resolved [...] or undercooked meat, and stay away from [facility]. Patient has been consulted regarding any further do's and don'ts of . Patient voiced understanding and all questions and concerns were answered. No orders of the defined types were placed in this encounter. Follow Up: Patient is to return in 4 weeks for routine OB appointment. Documented by Pat Jaime MA on behalf of: Jaguar Quintero DO documented in this encounter [facility] 03-24-2024 History of Presen t illness Narrative [...] or undercooked meat, and stay away from [facility]. Patient has also been advised to not [...] Chrissy Gomez MA documented in this encounter [facility] 12-02-2022 Evaluation note Encounter Date Diagnosis Assessment [...] time. Nov, Concentration deficit (ICD-10 - R41.840) [facility] 04-27-2023 Evaluation note* Encounter Date Diagnosis [...] f/u if no improvement or worsening symptoms. [facility] 03-16-2023 Evaluation note* Encounter Date Diagnosis [...] Z86.19) May, Chronic fatigue (ICD-10 - R53.82) [facility] 03-06-2023 Evaluation note* Encounter Date Diagnosis Assessment Notes Treatment Notes Treatment Clinical Notes May, SEEMA (generalized anxiety disorder) (ICD-10 - F41.1) She will call if this does not adequately control her symptoms May, Encounter for other contraceptive management (ICD-10 - Z30.8) [facility] Other 02-16-2023 Evaluation note* Encounter Date Diagnosis Assessment Notes Treatment Notes Treatment Clinical Notes Apr, SEEMA (generalized anxiety disorder) (ICD-10 - F41.1) [facility] 07-28-2022 NoteOPERATIVE NOTE OPERATION DATE: 10/16/2021 PROCEDURE: Repeat low transverse section. PREOPERATIVE DIAGNOSIS: 1. Intrauterine at 39 weeks. 2. Previous . POSTOPERATIVE DIAGNOSIS: 1. Intrauterine at 39 weeks. 2. Previous . ANESTHESIA: Spinal with Duramorph. SURGEON: Jaguar Quintero D.O. RICE FARMER: KATHERINE Dao URINE OUTPUT: Yellow and clear. [...] to the Recovery Room in stable condition.[id number] Note DISCHARGE DATE: 10/18/2021 PRIMARY DIAGNOSES: 1. [...] pain free and no longer on narcotics.[id number] History general Narrative - Reported* Type Description Date Medical History Hep C - cured as of August 2017 Medical History Miscarriage 06/2018 Surgical History Pre cancerous cells removed- ou tpatient Derm procedure 2012 Surgical History csection 10/16/2021 [facility] Other [id number] History general Narrative - Reported* Type Description Date Medical History Hep C - cured as of August 2017 Medical History Miscarriage 06/2018 Surgical History Pre cancerous cells removed- outpatient Derm procedure 2012 Surgical History x 2 10/16/2021 Surgical History tonsillectomy Hospitalization History see above Hospitalization History child x 2 [facility] Other Evaluation noteNo InformationNort Emer[employer] Other evaluation noteNo assessment information available [facility] Work Phone: evaluation note* Diagnosis Missed menses [...] episode of care documented in this encounter [facility] note* Diagnosis Upper respiratory tract infection, unspecified type- Primary Second trimester state, incidental 25 weeks gestation of Vomiting complicating Unspecified vomiting of , unspecified as to episode of care documented in this encounter [facility] Healthcare[facility] note* Diagnosis Gestational diabetes mellitus (GDM), antepartum, gestational diabetes method of control unspecified- Primary Third trimester state, incidental 31 weeks gestation of Elevated glucose tolerance test Impaired glucose tolerance test Anemia affecting in third trimester documented in this encounter [facility] Discharge instructions Additional Instructions Flexeril for needed for muscle spasms You cannot work or drive when taking Flexeril Ice for the next 24 hours and then rotate heat Tylenol or Motrin if needed for pain Take steroids as directed Follow-up with your doctor Gentle range of motion Avoid heavy lifting [facility] Discharge instructions Additional Instructions Follow up with your OB-GEOLOGY TECHNICIAN Return to the ED if you develop worsening [facility] Work Phone: Summary Purpose [...] 1 Concentration defici t (R41.840) Referral Organization [facility] Family Medicin e [place] Referring Provider First Name Claribel Referring Provider Last Name Abby Referring Provider Specialty Family Medi cine Referred Organization [facility] [place] Referred Address [address] [place], [place],[address] Referred Provider Specialty Psychologist Referral Priority Routine Additional Source Comments INFORMATION SOURCE (unrecogn ized section and content) DATE CREATED AUTHOR 09/13/2017 [facility] DATE CREATED AUTHOR AUTHOR'S ORGANIZ ATION 05/25/2021 [facility] dical Specialist DATE CREATED AUTHOR AUTHOR'S ORGANIZ ATION 02/27/2022 [facility] DATE CREATED AUTHOR AUTHOR'S ORGANIZ ATION 07/15/2024 [facility] DATE CREATED AUTHOR AUTHOR'S ORGANIZ ATION 08/28/2024 [facility] dical Specialists EPIC REASON FOR VISIT [...] November 25, 2023 End: November 25, 2023 Nurse Technician Relationship Specialty Start Date End Date Kb Hollis DO [address] [place] [address] PCP - General Family Medicine 04/12/23 Enoch Villalobos DO [address] [place] [address] PCP - [facility]h [facility] 06/21/23 Nurse Technician Relationship Specialty Start Date End Date Kb Hollis DO [address] [place] [address] PCP - General Family Medicine 04/12/23 Enoch Villalobos DO [address] [place] [address] PCP - NOM[facility]hesh Cody [facility] 06/21/23 Team Status: Inactive Member Role [...] April 05, 2024 End: April 05, 2024 Nurse Technician Relationship Specialty Start Date End Date Kb Hollis DO [address] [place] [address] PCP - General Family Medicine 04/12/23 Enoch Villalobos DO [address] [place] [address] PCP - [facility] BUILDING SUPERINTENDENT 06/21/23 5 Team Status: Inactive Member Role [...] May 19, 2024 End: May 19, 2024 Nurse Technician Relationship Specialty Start Date End Date Kb Hollis DO [address] [place] [address] PCP - General Family Medicine 04/12/23 Enoch Villalobos DO [address] [place] [address] PCP - [facility] BUILDING SUPERINTENDENT 06/21/23 5 Nurse Technician Relationship Specialty Start Date End Date Kb Hollis DO [address] [place] [address] PCP - General Family Medicine 04/12/23 Enoch Villalobos DO [address] [place] [address] PCP - NOMS [place] BUILDING SUPERINTENDENT 06/21/23 5 Nurse Technician Relationship Specialty Start Date End Date Kb Hollis DO [address] [place] [address] PCP - General Family Medicine 04/12/23 Enoch Villalobos DO [address] [place] [address] PCP - NOMMahesh Cody BUILDING SUPERINTENDENT 06/21/23 5 Team Status: Inactive Member Role Status Dates Yaz Hollis DO Primary Care Provider Active Start: June 07, 2024 End: June 07, 2024 Mateo Navas DO Emergency Provider Active Sta rt: June 07, 2024 End: June 07, 2024 Nurse Technician Relationship Specialty Start Date End Date Kb Hollis DO [address] [place] [address] PCP - General Family Medicine 04/12/23 Enoch Villalobos DO [address] [place] [address] PCP - NOMMahesh Cody [facility] 06/21/23 5 Nurse Technician Relationship Specialty Start Date End Date Kb Hollis DO [address] [place] [address] PCP - General Family Medicine 04/12/23 Enoch Villalobos DO [address] [place] [address] PCP - NOMMahesh Cody BUILDING SUPERINTENDENT 06/21/23 5 Team Status: Inactive Member Role Status Dates Yaz Hollis DO Primary Care Provider Active Start: June 29, 2024 End: June 29, 2024 Parminder Powell PA-C Emergency Provider Active Start: June 29, 2024 End: June 29, 2024 Nurse Technician Relationship Specialty Start Date End Date Kb Hollis DO [address] [place] [address] PCP - General Family Medicine 04/12/23 Enoch Villalobos DO [address] [place] [address] PCP - NOMS [place] [facility] 06/21/232 5 Nurse Technician Relationship Specialty Start Date End Date Kb Hollis DO [address] [place] [address] PCP - General Family Medicine 04/12/23 Enoch Villalobos DO [address] [place] [address] PCP - NOMS [place] [facility] 06/21/23 5 Nurse Technician Relationship Specialty Start Date End Date Kb Hollis DO [address] [place] [address] PCP - General Family Medicine 04/12/23 Enoch Villalobos, DO [address] [place] [address] PCP - NOM[facility] [place] [facility] 06/21/23 5 Nurse Technician Relationship Specialty Start Date End Date Kb Hollis DO [address] [place] [address] PCP - General Family Medicine 04/12/23 Enoch Villalobos, [address] [place] [address] PCP - NOMMahesh Cody [facility] 06/21/23 5 Goals (unrecognized section and [...] BE BASED ON THE PRIMARY CLINICAL RECORDS. [employer] [facility]. provides no warranty or guarantee of the accuracy or completeness of information in this document.
[2024-09-09 10:47] VITALS: BP 120/73; PULSE 96
[2024-09-09 10:50] VITALS: TEMP 36.7
[2024-09-09] MEDS: 0.9 % SODIUM CHLORIDE 1,000 ML 1000 ML IV (10:53)
[2024-09-09 10:54] VITALS: BP 132/84; PULSE 115; O2SAT 99
[2024-09-09 14:33] LABS: Glucometer 105 mg/dL (74-106)
[2024-09-09 14:40] LABS: Amphetamine Screen Urine NEGATIVE (NEGATIVE); Barbiturates Screen Urine NEGATIVE (NEGATIVE); Benzodiazepines Screen Urine NEGATIVE (NEGATIVE); Buprenorphine Screen Urine NEGATIVE (NEGATIVE); Cannabinoid Screen Urine POSITIVE (NEGATIVE); Cocaine Screen Urine NEGATIVE (NEGATIVE); Methadone Screen Urine NEGATIVE (NEGATIVE); Methamphetamines Screen Urine NEGATIVE (NEGATIVE); Opiate Screen Urine NEGATIVE (NEGATIVE); Oxycodone Screen Urine NEGATIVE (NEGATIVE); Phencyclidine Screen Urine NEGATIVE (NEGATIVE); Tricyclic Antidepressant Urine NEGATIVE (NEGATIVE)
[2024-09-09 15:24] VITALS: BP 117/73; PULSE 93
[2024-09-09] MEDS: ONDANSETRON PF 4 MG/2 ML VIAL IV (15:55)
[2024-09-09] MEDS: MULTIVIT INFUSN,ADULT 4,VIT K 10 ML in 0.9 % SODIUM CHLORIDE 1,000 ML 125 ML IV (19:12)
[2024-09-09] MEDS: CITALOPRAM HYDROBROMIDE 20 MG TABLET 40 MG PO (21:54)
[2024-09-09 23:05] VITALS: BP 107/72; PULSE 105; TEMP 36.5
[2024-09-09] MEDS: POTASSIUM CHLORIDE 40 MEQ in 0.9 % SODIUM CHLORIDE 250 ML 130 MEQ IV (23:06)
[2024-09-09] MEDS: NALBUPHINE HCL 10 MG/ML AMPULE IV (23:49)
[2024-09-10] MEDS: PROMETHAZINE HCL 12.5 MG in 0.9 % SODIUM CHLORIDE 50 ML 202 MG IV ×2 (01:28→09:48)
[2024-09-10] MEDS: 0.9 % SODIUM CHLORIDE 1,000 ML 125 ML IV (03:14)
[2024-09-10 04:10] VITALS: BP 109/70; PULSE 93
[2024-09-10 04:39] LABS: Glucometer 111 mg/dL (74-106)
[2024-09-10] MEDS: ONDANSETRON PF 4 MG/2 ML VIAL IV ×2 (05:46→10:53)
[2024-09-10 06:40] LABS: Basophils Percent Auto 0.3 % (0.2-2.0); Eosinophils Percent Auto 0.2 % (0.9-7.0); Hematocrit 26.5 % (36.0-48.0); Hemoglobin 8.1 g/dL (12.0-16.0); Immature Granulocytes Abs Auto 0.16 10^3/uL (0.00-0.03); Immature Granulocytes Pct Auto 1.8 % (0.0-0.5); Lymphocytes Absolute Auto 1.2 10^3/uL (1.2-3.8); Lymphocytes Percent Auto 13.5 % (20.5-60.0); Mean Corpuscular HGB Conc 30.6 g/dL (29.9-35.2); Mean Corpuscular Hemoglobin 24.3 pg (26.7-34.0); Mean Corpuscular Volume 79.3 fL (81.0-99.0); Mean Platelet Volume 11.8 fL (9.5-13.5); Monocytes Absolute Auto 0.6 10^3/uL (0.3-0.8); Monocytes Percent Auto 6.8 % (1.7-12.0); Neutrophils Percent Auto 77.4 % (43.0-75.0); Platelet Count 204 10^3/uL (150-450); Red Blood Count 3.34 10^6/uL (4.20-5.40); Red Cell Distribution Width 15.5 % (11.0-15.0)
[2024-09-10 06:52] LABS: Anion Gap 18.6; Carbon Dioxide 17.9 mmol/L (21.0-32.0); Chloride 104 mmol/L (98-107); Potassium 3.5 mmol/L (3.5-5.1); Sodium 137 mmol/L (136-145)
--- NOTE | 2024-09-10 10:48 | P.OBHP_ITS ---
OB - H&P: HPI History of Present Illness Chief complaint: throwing up VOMITING DEHYDRATION : 3 Para: 2 Gestational age based on last menstrual period: 33 3/7wks Narrative: 29 yo at 33 3/7wks presents with nausea and vomiting, anemia, hypokalemia History of Present Dating criteria: LMP confirmed by 1st trimester US care: good care Ultrasounds: normal 1st trimester US and normal mid trimester US Labs Blood type: O (+) positive Rubella: immune RPR/VDLR: nonreactive GBS status: negative HBsAG: negative Review of Systems ROS Status of ROS: 10 or more systems reviewed and unremarkable except as noted in history and below PFSH PFSH Social History Little interest or pleasure in doing things: not at all Feeling down, depressed, or hopeless: not at all Meds Home Medications and Allergies Home Medications ?Medication ?Instructions ?Recorded ?Confirmed ?Type citalopram 20 mg tablet mg 03/23/24 History citalopram 40 mg tablet mg 03/23/24 History Allergies Allergy/AdvReac Type Severity Reaction Status Date / Time codeine Allergy Unknown Verified 03/23/24 16:20 Penicillins Allergy Unknown Verified 08/10/24 15:24 sulfamethoxazole (From Allergy Unknown Verified 08/10/24 15:24 Bactrim) trimethoprim (From Bactrim) Allergy Unknown Verified 08/10/24 15:24 Exam Constitutional Vital Signs, click to edit/add: Last Vital Signs Temp 97.7 F 09/09/24 23:05 Pulse 93 H 09/10/24 04:10 Resp 14 09/09/24 23:05 BP 109/70 09/10/24 04:10 Pulse Ox 99 09/09/24 10:54 O2 Del Method Room Air 09/09/24 10:54 Documenting provider has reviewed patient's vital signs: yes Common normals: no apparent distress Respiratory Common normals: normal respiratory effort and clear to auscultation bilaterally Cardio Common normals: regular rate and regular rhythm GI Common normals: Normal to inspection, nondistended, normoactive bowel sounds present Extremity Common normals: no clubbing, cyanosis or edema and no calf tenderness Results Labs Labs: Short CBC 09/10/24 Range/Units 06:35 WBC 9.0 (4.0-11.0) 10^3/uL Hgb 8.1 L (12.0-16.0) g/dL Hct 26.5 L (36.0-48.0) % Plt Count 204 (150-450) 10^3/uL [facility] 09/10/24 06:35 Sodium 137 Potassium 3.5 Chloride 104 Carbon Dioxide 17.9 L OB - A/P Assessment and Plan (1) Intrauterine : (2) Cannabis hyperemesis syndrome concurrent with and due to cannabis abuse: (3) Hypokalemia: Assessment and Plan: iv potassium Plan cont iv antiemetic and pain med, cont efm, labs reviewed, dc home later, rx on chart
[2024-09-10] MEDS: NALBUPHINE HCL 10 MG/ML AMPULE IV (10:52)
[2024-09-10] MEDS: CAPSAICIN 0.025% CREAM 60 GM TUBE 1 APPLIC TOPICAL (14:06)
[2024-09-14 20:08] LABS: Cannabinoid Positive (.); Carboxy THC Conf, MS, UR 493 ng/mL (Cutoff=10)
== END 2024-09-10 14:15 | disposition home or self-care (01) ==
LOC: ER 10:18 → FBC 10:43
PROVIDERS: Admitting Provider Obstetrics & Gynecology; Emergency Provider Student in an Organized Health Care Education/Training Program; PCP Family Medicine; Visit Provider Obstetrics & Gynecology
DX: O21.2 Late vomiting of pregnancy (principal); O99.283 Endocrine, nutritional and metabolic diseases complicating pregnancy, third trimester; O99.323 Drug use complicating pregnancy, third trimester; F12.10 Cannabis abuse, uncomplicated; Z3A.33 33 weeks gestation of pregnancy
CPT/HCPCS: 36415; 80051; 80053; 80307; 80349; 81001; 82948; 83690; 85025; 96361; 96365; 96366; 96367; 96368; 96375; 96376; 99284; G0378; J2300; J2405; J2550; J3480

== ENCOUNTER 2024-09-12 14:17 | Outpatient (OUT) | payer MEDICAID, SELFPAY ==
--- NOTE | 2024-09-12 14:18 | US_ITS ---
[address] [address] Patient Name: ABBE VALENZUELA MRN: [facility]:[id number] date: 1995 Sex: F Assigned Patient Location: [facility] Current Patient Location: Accession/Order Number: [id number] Exam Date: 09/12/2024 14:59 Report Date: 09/12/2024 15:12 At the request of: CORBY CAUSEY Procedure: US OB BPP w non-stress BPP. Reason for exam: Anemia affecting . COMPARISON: BDP 09/07/2024. TECHNIQUE: Transabdominal imaging of the gravid uterus was obtained. FINDINGS: Quality Control Analyst reports a BPP of 8 out of 8. CINDY is normal 16.4 cm. heart rate 165 bpm. US/US OB BPP w non-stress Impression: BPP out of 8. Impression dictated by: Davon Goncalves Jr., D.O. 09/12/2024 3:12 PM Dictation Location: [place] [address] Electronically authenticated by: [id number] Y Date: 09/12/2024 15:12
--- OUTSIDE RECORDS SUMMARY | 2024-09-12 14:20 | XMS_ITS | Patient Health Record ---
Author Organization [facility] Address [address] [place] [address] Care Team Providers Care Coloring Room Worker Name Role Phone [facility] Primary Care Provide r Unavailable [...] Immunizations Vaccine Route Administration Date Status Comme [facility] z2022 Fluzone Quad PFS (0.5m L [...] Insured Coverage Start Date Coverage End Date [facility] [address] [place] [address] [id number] Nicole Farris Self - patient is the insured [employer] [place] [address] [place] [address] [id number] Nicole Farris Self - patient is the insured Medical (General) History Medical History History ICD Code Anxiety and depression F41.8 Surgical History Surgery Date(Month/Year) C section 10/16/2021 Hospitalization History Reason Date(Month/Year) surgeries
[2024-09-12 14:39] VITALS: BP 127/80; PULSE 106
== END 2024-09-12 15:08 | disposition home or self-care (01) ==
LOC: US 14:18 → FBC 14:20
PROVIDERS: PCP Family Medicine; Visit Provider Nurse Practitioner Family
DX: O99.013 Anemia complicating pregnancy, third trimester (principal); Z3A.33 33 weeks gestation of pregnancy
CPT/HCPCS: 76818

== ENCOUNTER 2024-09-15 12:18 | Outpatient (OUT) | payer MEDICAID, SELFPAY ==
[2024-09-15 12:21] VITALS: BP 119/67; PULSE 102
== END 2024-09-15 12:52 | disposition home or self-care (01) ==
LOC: FBCO 12:18 → FBC 12:20
PROVIDERS: PCP Family Medicine; Visit Provider Obstetrics & Gynecology
DX: O24.419 Gestational diabetes mellitus in pregnancy, unspecified control (principal); Z3A.34 34 weeks gestation of pregnancy
CPT/HCPCS: 59025

== ENCOUNTER 2024-09-19 13:51 | Outpatient (OUT) | payer MEDICAID, SELFPAY ==
--- NOTE | 2024-09-19 | US_ITS ---
[address] [address] Patient Name: ABBE VALENZUELA MRN: [facility]:[id number] date: 1995 Sex: F Assigned Patient Location: [facility] Current Patient Location: [facility] Accession/Order Number: [id number] Exam Date: 09/19/2024 14:22 Report Date: 09/19/2024 14:23 At the request of: CORBY CAUSEY Procedure: US OB BPP w non-stress BPP. Reason for exam: Anemia affecting . COMPARISON: BPP 09/12/2024 TECHNIQUE: Transabdominal imaging of the gravid uterus was obtained. FINDINGS: Metrology Manager reports a BPP of 8 out of 8. CINDY is normal 12.0cm. heart rate 155 bpm. US/US OB BPP w non-stress Impression: BPP out of 8. Impression dictated by: Davon Goncalves Jr., D.O. 09/19/2024 2:23 PM Dictation Location: [place] [address] Electronically authenticated by: [id number] Y Date: 09/19/2024 14:23
--- OUTSIDE RECORDS SUMMARY | 2024-09-19 13:53 | XMS_ITS | Patient Health Record ---
Author Organization The [facility] Address [address] [place] [address] Care Team Providers Care Gathering Worker Name Role Phone [facility] Primary Care Provide [...] Immunizations Vaccine Route Administration Date Status Comme [facility] z2022 Fluzone Quad PFS (0.5m L [...] Insured Coverage Start Date Coverage End Date [facility] [address] [place] [address] [id number] Nicole Farris Self - patient is the insured [employer] [place] [address] [place] [address] [id number] Nicole Farris Self - patient is the insured Medical (General) History Medical History History ICD Code Anxiety and depression F41.8 Surgical History Surgery Date(Month/Year) C section 10/16/2021 Hospitalization History Reason Date(Month/Year) surgeries
[2024-09-19 14:05] VITALS: BP 115/74; PULSE 100
[2024-09-19 15:30] LABS: Hematocrit 30.2 % (36.0-48.0); Hemoglobin 9.4 g/dL (12.0-16.0); Immature Granulocytes Abs Auto 0.06 10^3/uL (0.00-0.03); Immature Granulocytes Pct Auto 0.7 % (0.0-0.5); Lymphocytes Absolute Auto 1.3 10^3/uL (1.2-3.8); Mean Corpuscular HGB Conc 31.1 g/dL (29.9-35.2); Mean Corpuscular Hemoglobin 24.5 pg (26.7-34.0); Mean Corpuscular Volume 78.6 fL (81.0-99.0); Platelet Count 189 10^3/uL (150-450); Red Blood Count 3.84 10^6/uL (4.20-5.40); White Blood Count 8.7 10^3/uL (4.0-11.0)
[2024-09-19 15:42] LABS: Alanine Aminotransferase 16 U/L (14-59); Albumin Globulin Ratio 0.6; Albumin Level 2.4 g/dL (3.4-5.0); Alkaline Phosphatase 102 U/L (46-116); Aspartate Amino Transferase 9 U/L (15-37); Globulin 4.2 g/dL; Total Protein 6.6 g/dL (6.4-8.2)
[2024-09-19 16:03] LABS: Uric Acid 2.9 mg/dL (2.6-6.0)
== END 2024-09-19 16:15 | disposition home or self-care (01) ==
LOC: US 13:51 → FBC 13:53
PROVIDERS: Obstetrics & Gynecology; PCP Family Medicine; Visit Provider Nurse Practitioner Family
DX: O99.013 Anemia complicating pregnancy, third trimester (principal); Z3A.34 34 weeks gestation of pregnancy
CPT/HCPCS: 36415; 76818; 80076; 82239; 83615; 84550; 85025

== ENCOUNTER 2024-09-26 13:47 | Outpatient (OUT) | payer MEDICAID, SELFPAY ==
--- OUTSIDE RECORDS SUMMARY | 2024-09-25 14:09 | XMS_ITS ---
Author Name Auto Generated Organization OHIP Support Name Relationship Address Phone LUIS FARRIS Next of Kin [address] [place] [address] + MANJU GARCIALONI Next of Kin Unknown [phone] BRENTON LUIS Next of Kin [address] [place] [address] + JOSE LALONI Next of Kin Unknown [phone] FARRIS, LUIS Next of Kin [address] [place] [address] + JOSE LALONI Next of Kin Unknown [phone] FARRIS, LUIS Next of Kin [address] [place] [address] + JOSE LALONI Next of Kin Unknown [phone] FARRIS, LUIS Next of Kin [address] [place] [address] + JOSE LALONI Next of Kin Unknown [phone] FARRIS, LUIS Next of Kin [address] [place] [address] + JOSE LALONI Next of Kin Unknown [phone] Farris, Luis Next of Kin [address] [place] [address] + Jose Laloni Next of Kin [address] [place] [address] + FARRIS, LUIS Next of Kin [address] [place] [address] + GROSSWILER, LALONI Next of Kin Unknown [phone] FARRIS, LUIS Next of Kin [address] [place] [address] + GROSSWILER, LALONI Next of Kin Unknown [phone] Farris, Luis Next of Kin [address] [place] [address] + Grosswiler, Laloni Next of Kin [address] [place] [address] + FARRIS, LUIS Next of Kin [address] [place] [address] + GROSSWILER, LALONI Next of Kin Unknown [phone] Farris, Luis Next of Kin [address] [place] [address] + Grosswiler, Laloni Next of Kin [address] [place] [address] + Farris, Luis Next of Kin [address] [place] [address] + Grosswiler, Laloni Next of Kin [address] [place] [address] + FARRIS, LUIS Next of Kin [address] [place] [address] + GROSSWILER, LALONI Next of Kin Unknown [phone] Farris, Luis Next of Kin [address] [place] [address] + Grosswiler, Laloni Next of Kin [address] [place] [address] + FARRIS, LUIS Next of Kin [address] [place] [address] + SHANITA GARCIA Next of Kin Unknown [phone] AMBER FARRISY Next of Kin [address] [place] [address] + SHANITA GARCIA Next of Kin Unknown [phone] Luis Farris Next of Kin [address] [place] [address] + Shanita Garcia Next of Kin [address] [place] [address] + [place] [address] + Shanita Garcia Next of Kin [address] [place] [address] + LUIS FARRIS Next of Kin [address] [place] [address] + SHANITA GARCIA Next of Kin Unknown [phone] LUIS FARRIS Next of Kin [address] [place] [address] + SHANITA GARCIA Next of Kin Unknown [phone] Care Team Providers Care Editor Dictionary Name Role Phone GABBY GONSALVES Attending Unavailable YANIV LAU Attending Unavailable GABBY GONSALVES Attending Unavailable BRINA, GABBY Referring Unavailable CORBY CAUSEY Attending Unavailable RICARDO POWELL Attending Unavailable RICARDO POWELL Referring Unavailable ZEE GONSALVESY Attending Unavailable BRINA, GABBY Attending Unavailable YANIV LAU Attending Unavailable GABBY GONSALVES Attending Unavailable Yaz Hollis [...] DATE TYPE CONDITION / CODE [facility] Vomiting of , unspecified / O21.9(ICD-10) Parminder Powell [facility] 03/04/2024 Unknown Nausea with vomi ting, unspecified / R11.2(ICD-10) Surjit Stanton [facility] 11/25/2023 Unknown Headache, unspec ified / R51.9(ICD-10) [facility] 11/25/2023 Unknown Cervicalgia / M54.2(ICD-10) [facility] PROCEDURES No Procedure Records Found RESULTS US OB LIMITED 1+ FETUSES Observed: 07/19 9:13 AM Status: F Source: [facility] EPIC Order Comment: US [...] II, MD, PHD at 23-Jul-2024 08:53:16 PM [facility] COMPLETE BLOOD COUNT AUTO DIFF Collected: 06/29/2024 4:27 PM Status: F Source: F [facility] TYPE CODE TESTS RESULT OUT OF RANGE [...] 0.0-0.2 10*3/uL Result Comment: PERFORMED BY : [place] [address] PATHOLOGIST HAND GLOVE CLEANER SARAH ANDREWS M.D. Performed By: #### CMP, MG, CBC #### [facility] [address] [place] [address] REDRAW POTASSIUM Collected: 06/29/2024 4:27 PM Statu s: F Source: [facility] TYPE CODE TESTS RESULT OUT OF RANGE REFERENCE UNITS LAB REDRAW K Redraw Potassium 3.8 Normal 3.5-5.1 mmol/L Performed By: #### REDRAW K, REDRAW MG, REDRAW AST #### [address] REDRAW MAGNESIUM Collected: 06/29/2024 4:27 PM Statu s: F Source: [facility] TYPE CODE TESTS RESULT OUT OF RANGE REFERENCE UNITS LAB REDRAW MG Redraw Magnesium 1.7 Low 1.9-2.7 mg/dL Performed By: #### REDRAW K, REDRAW MG, REDRAW AST #### [address] REDRAW AST Collected: 4:27 PM Status: F Source: [facility] TYPE CODE TESTS RESULT OUT OF RANGE REFERENCE UNITS LAB REDRAW AST Redraw AST 10 Low 13-39 U/L Result Comment: PERFORMED BY : [place] [address] PATHOLOGIST HAND GLOVE CLEANER SARAH ANDREWS M.D. Performed By: #### REDRAW K, REDRAW MG, REDRAW AST #### [facility] [address] [place] [address] DIPSTICK AND MICROSCOPIC Collected: 12/2024 4:27 PM Status: F Source: [facility] Order Comment: Name Collecti on Type:: Clean-Voided Midstream TYPE CODE TESTS RESULT OUT OF RANGE REFERENCE UNITS LAB UCOL Color,Urine Light-Yellow Yellow LAB UAPP Appearance,Uri ne Cloudy Abnormal Alert Clear LAB USG Specificy [place],Urine 1.019 Normal 1.001-1.030 LAB UPH pH,Urine 8.5 [...] Negative Negative Result Comment: PERFORMED BY : [address] [address] PATHOLOGIST HAND GLOVE CLEANER SARAH ANDREWS M.D. LAB URBC RBC,Urine 3-4 0-4 [HPF] LAB UWBC WBC,Urine 10-19 High 0-4 [HPF] LAB USQEPI Squamous Epithelial Cell,Urine 5-9 High 0-2 [HPF] LAB UCRY Othe Crystals,Urine 2+ LAB UBACT Bacteria,Urine Rare None Seen LAB UHYALC Hyaline Casts,Urine None 0-8 LAB MUCUS Mucus,Urine Rare Result Comment: PERFORMED BY : [place] [id number] PATHOLOGIST HAND GLOVE CLEANER SARAH ANDREWS M.D. Performed By: #### ADDONUAPL US, URDS, CUU #### [address] [address] [facility] DRUG SCREEN,URINE Collected: 06/29/2024 4:27 PM Stat us: F Source: [facility] TYPE CODE TESTS RESULT OUT OF [...] 25 ng/mL THC 20 ng/mL PERFORMED BY: [facility] [address] [id number] PATHOLOGIST HAND GLOVE CLEANER SARAH ANDREWS M.D. Performed By: #### RAFAEL HANKS, CUU #### [facility] [address] [id number] [facility] URINE CULTURE Observed: 06/29/2024 4:27 PM Status: F Source: [facility] <9,000 colonies/ml mixed bacterial skin contaminants 2 Days PERFORMED BY: [facility] [address] [place] [address] PATHOLOGIST HAND GLOVE CLEANER SARAH ANDREWS M.D. Performed By: #### RAFAEL HANKS CUU #### [facility] [address] [id number] [facility] COMPREHENSIVE METABOLIC PANEL Collected: 06/29/2024 3 :13 PM Status: F Source: [facility] TYPE CODE TESTS RESULT OUT OF [...] alc Pharmacy 173.12 Performed By: #### CMP, MG, CBC #### [address] MAGNESIUM Collected: 3:13 PM Status: F Source: [facility] TYPE CODE TESTS RESULT OUT OF RANGE REFERENCE UNITS LAB MG Magnesium 1.9-2.7 Result Comment: Specimen hem olyzed, redraw requested PERFORMED BY: [place] [address] PATHOLOGIST HAND GLOVE CLEANER SARAH ANDREWS M.D. Performed By: #### CMP, MG, CBC #### [address] ECG 12 LEAD ECG Observed: 06/29/2024 3:09 PM Status: COMPLETED Source: [facility] [place] [address] Electrocardiograph Report Signed Patient: Nicole Farris MR#: [id number] : 1995 Acct:[id number] Age/Sex: 28 / F ADM Date: 06/29/24 Loc: ER Room: Type: [facility] ER Attending Dr: Ordering Provider: Parminder Powell [...] ECGs available Confirmed by SALUD SCHWARZ DO ([id number]) on 06/30/2024 7:11:38 PM Referred By: Electronically Signed By: SALUD SCHWARZ DO Transcribed By: MUS Signed By Salud Schwarz DO 06/30 191 DRUG SCREEN,URINE Collected: 06/07/2024 12:13 PM Sta tus: F Source: [facility] TYPE CODE TESTS RESULT OUT OF [...] 25 ng/mL THC 20 ng/mL PERFORMED BY: [place] [address] PATHOLOGIST HAND GLOVE CLEANER SARAH ANDREWS M.D. Performed By: #### URDS #### [place] [id number] [facility] URINALYSIS Collected: 12:13 PM Status: F Source: [facility] Order Comment: Name Collecti on Type:: Clean-Voided Midstream TYPE CODE TESTS RESULT OUT OF RANGE REFERENCE UNITS LAB UCOL Color,Urine Light-Yellow Yellow LAB UAPP Appearance,Uri ne Clear Clear LAB USG Specificy [place],Urine 1.020 Normal 1.001-1.030 LAB UPH pH,Urine 8.0 Normal 5.0-9.0 LAB ULE Leukocyte Esterase,Urine Negative Negative LAB UNIT Nitrite,Urine Negative Negative LAB UPRO Protein,Urine Negative Negative LAB UGL Glucose,Urine (UA) 200 High Normal mg/dL LAB UKET Ketones,Urine 4+ High Negative LAB UURO Urobilinogen,U rine Normal Normal LAB UBIL Bilirubin,Urin e Negative Negative LAB UBLD Occult Blood,Urine Negative Negative Result Comment: PERFORMED BY : [place] [id number] PATHOLOGIST HAND GLOVE CLEANER MOHAMED M EL-FAKHARANY M.D. Performed By: #### UA #### [facility] [address] [place] [id number] [facility] COMPLETE BLOOD COUNT AUTO DIFF Collected: 06/07/2024 11:21 AM Status: F Source: [facility] TYPE CODE TESTS RESULT OUT OF [...] 0.0-0.2 10*3/uL Result Comment: PERFORMED BY : [place] [address] PATHOLOGIST HAND GLOVE CLEANER SARAH ANDREWS M.D. Performed By: #### CBC, HEPA TIC, BMP, LIPASE #### [facility] [address] HEPATIC PANEL Collected: 06/07/2024 11:21 AM Status: F Source: [facility] TYPE CODE TESTS RESULT OUT OF [...] 44 Normal 34-104 U/L Performed By: #### CBC, HEPA TIC, BMP, LIPASE #### [facility] [address] BASIC METABOLIC PANEL Collected: 2024 11:21 AM Status: F Source: [facility] TYPE CODE TESTS RESULT OUT OF [...] Clr Calc Pharmacy 167.01 Performed By: #### CBC, HEPA TIC, BMP, LIPASE #### [facility] [address] [id number] [facility] LIPASE Collected: 11:21 AM Status: F Source: [facility] TYPE CODE TESTS RESULT OUT OF RANGE REFERENCE UNITS LAB LIPASE Lipase 13.0 Normal 11.0-82.0 U/L Result Comment: PERFORMED BY : [place] [address] PATHOLOGIST HAND GLOVE CLEANER SARAH ANDREWS M.D. Performed By: #### CBC, HEPA TIC, BMP, LIPASE #### [facility] [address] [id number] [facility] US OB 14+ WEEKS ANATOMY SCAN Observed: 0 05/25/2024 1:27 PM Status: F Source: [facility] EPIC Order Comment: US OB ANATOMY [...] II, MD, PHD at 13-Jun-2024 09:57:02 AM [facility] DIPSTICK AND MICROSCOPIC Collected: 9:45 AM Status: F Source: [facility] Order Comment: Name Collecti on Type:: Clean-Voided Midstream TYPE CODE TESTS RESULT OUT OF RANGE REFERENCE UNITS LAB UCOL Color,Urine Light-[place] Abnormal Alert Yellow LAB UAPP Appearance,Uri ne Turbid Abnormal Alert Clear LAB USG Specificy [place],Urine 1.014 Normal 1.001-1.030 LAB UPH pH,Urine 8.0 Normal 5.0-9.0 LAB ULE Leukocyte Esterase,Urine Negative Negative LAB UNIT Nitrite,Urine Negative Negative LAB UPRO Protein,Urine Negative Negative LAB UGL Glucose,Urine (UA) Normal Normal LAB UKET Ketones,Urine 2+ High Negative LAB UURO Urobilinogen,U rine Normal Normal LAB UBIL Bilirubin,Urin e Negative Negative LAB UBLD Occult Blood,Urine Negative Negative Result Comment: PERFORMED BY : [place] [address] [address] [address] PATHOLOGIST HAND GLOVE CLEANER SARAH ANDREWS M.D. LAB URBC RBC,Urine 3-4 0-4 [HPF] LAB UWBC WBC,Urine None Seen 0-4 LAB USQEPI Squamous Epithelial Cell,Urine 1-2 0-2 [HPF] LAB UBACT Bacteria,Urine None Seen None Seen LAB UHYALC Hyaline Casts,Urine None 0-8 LAB MUCUS Mucus,Urine Rare Result Comment: PERFORMED BY : [place] [address] PATHOLOGIST HAND GLOVE CLEANER SARAH ANDREWS M.D. Performed By: #### ADDONUAPL US #### [place] [id number] [facility] DRUG SCREEN,URINE Collected: 05/19/2024 9:45 AM Stat us: F Source: [facility] TYPE CODE TESTS RESULT OUT OF [...] 25 ng/mL THC 20 ng/mL PERFORMED BY: [place] [address] PATHOLOGIST HAND GLOVE CLEANER SARAH ANDREWS M.D. Performed By: #### URDS #### [facility] [address] [place], [place] [id number] [facility] COMPLETE BLOOD COUNT AUTO DIFF Collected: 05/19/2024 9:15 AM Status: F Source: F [facility] TYPE CODE TESTS RESULT OUT OF RANGE [...] 0.0-0.2 10*3/uL Result Comment: PERFORMED BY : [place] [address] PATHOLOGIST HAND GLOVE CLEANER SARAH ANDREWS M.D. Performed By: #### CBC, CMP, HEPATIC, MG, LIPASE, HCGQNT #### [address] COMPREHENSIVE METABOLIC PANEL Collected: 05/19/2024 9 :15 AM Status: F Source: [facility] TYPE CODE TESTS RESULT OUT OF [...] C alc Pharmacy 143.53 Performed By: #### CBC, CMP, HEPATIC, MG, LIPASE, HCGQNT #### [facility] [address] [id number] [facility] HEPATIC PANEL Collected: 05/19/2024 9:15 AM Status: F Source: [facility] TYPE CODE TESTS RESULT OUT OF RANGE REFERENCE UNITS LAB BILID Bilirubin,Dir ect 0.00 Low 0.03-0.18 mg/dL Result Comment: If the DBIL is less than 0.1, IBIL is not able to be calculated. LAB BILII Bilirubin,Ind irect 0.3 mg/dL Performed By: #### CBC, CMP, HEPATIC, MG, LIPASE, HCGQNT #### [facility] [address] [place] [id number] [facility] MAGNESIUM Collected: 02/28/202 5 9:15 AM Status: F Source: [facility] TYPE CODE TESTS RESULT OUT OF RANGE REFERENCE UNITS LAB MG Magnesium 1.4 Low 1.9-2.7 mg/dL Performed By: #### CBC, CMP, HEPATIC, MG, LIPASE, HCGQNT #### [facility] [address] [place] [id number] [facility] LIPASE Collected: 9:15 AM Status: F Source: [facility] TYPE CODE TESTS RESULT OUT OF RANGE REFERENCE UNITS LAB LIPASE Lipase 20.0 Normal 11.0-82.0 U/L Performed By: #### CBC, CMP, HEPATIC, MG, LIPASE, HCGQNT #### [address] HCG,QUANTITATIVE Collected: 9:15 AM Status: F Source: [facility] TYPE CODE TESTS RESULT OUT OF RANGE REFERENCE UNITS LAB HCGQNT HCG,Quantit ative [address].00 m[iU]/mL Result Comment: Approximate Approximate hCG Gestational Age Range (mIU/ml) (weeks) 0.2-1 5-50 1-2 50-500 2-3 100-5,000 3-4 500-10,000 4-5 1,000-50,000 5-6 10,000-100,000 6-8 15,000-200,000 8-12 10,000-100,000 PERFORMED BY: [place] [address] PATHOLOGIST HAND GLOVE CLEANER SARAH ANDREWS M.D. Performed By: #### CBC, CMP, HEPATIC, MG, LIPASE, HCGQNT #### [place] [id number] [facility] URINALYSIS Collected: 11:38 AM Status: F Source: [facility] Order Comment: Name Collecti on Type:: Clean-Voided Midstream TYPE CODE TESTS RESULT OUT OF RANGE REFERENCE UNITS LAB UCOL Color,Urine Light-Yellow Yellow LAB UAPP Appearance,Uri ne Clear Clear LAB USG Specificy [place],Urine 1.020 Normal 1.001-1.030 LAB UPH pH,Urine 8.0 Normal 5.0-9.0 LAB ULE Leukocyte Esterase,Urine Negative Negative LAB UNIT Nitrite,Urine Negative Negative LAB UPRO Protein,Urine Negative Negative LAB UGL Glucose,Urine (UA) 500 High Normal mg/dL LAB UKET Ketones,Urine 4+ High Negative LAB UURO Urobilinogen,U rine Normal Normal LAB UBIL Bilirubin,Urin e Negative Negative LAB UBLD Occult Blood,Urine Negative Negative Result Comment: PERFORMED BY : [facility] [address] [place] [address] PATHOLOGIST HAND GLOVE CLEANER SARAH ANDREWS M.D. Performed By: #### UA #### [facility] [address] COMPLETE BLOOD COUNT AUTO DIFF Collected: 05/16/2024 10:54 AM Status: F Source: [facility] TYPE CODE TESTS RESULT OUT OF [...] 0.0-0.2 10*3/uL Result Comment: PERFORMED BY : [place] [address] PATHOLOGIST HAND GLOVE CLEANER SARAH ANDREWS M.D. Performed By: #### CBC, CMP, HEPATIC, LIPASE, HCGQNT #### [facility] [address] [place] [address] COMPREHENSIVE METABOLIC PANEL Collected: 05/16/2024 1 0:54 AM Status: F Source: [facility] TYPE CODE TESTS RESULT OUT OF [...] C alc Pharmacy 146.48 Performed By: #### CBC, CMP, HEPATIC, LIPASE, HCGQNT #### [facility] [address] HEPATIC PANEL Collected: 10:54 AM Status: F Source: [facility] TYPE CODE TESTS RESULT OUT OF RANGE REFERENCE UNITS LAB BILID Bilirubin,Dir ect 0.00 Low 0.03-0.18 mg/dL Result Comment: If the DBIL is less than 0.1, IBIL is not able to be calculated. LAB BILII Bilirubin,Ind irect 0.4 mg/dL Performed By: #### CBC, CMP, HEPATIC, LIPASE, HCGQNT #### [place] [id number] [facility] LIPASE Collected: 10:54 AM Status: F Source: [facility] TYPE CODE TESTS RESULT OUT OF RANGE REFERENCE UNITS LAB LIPASE Lipase 25.0 Normal 11.0-82.0 U/L Performed By: #### CBC, CMP, HEPATIC, LIPASE, HCGQNT #### [address] HCG,QUANTITATIVE Collected: 10:54 AM Status: F Source: [facility] TYPE CODE TESTS RESULT OUT OF RANGE REFERENCE UNITS LAB HCGQNT HCG,Quantit ative 19085.00 m[iU]/mL Result Comment: Approximate Approximate hCG Gestational Age Range (mIU/ml) (weeks) 0.2-1 5-50 1-2 50-500 2-3 100-5,000 3-4 500-10,000 4-5 1,000-50,000 5-6 10,000-100,000 6-8 15,000-200,000 8-12 10,000-100,000 PERFORMED BY: [place] [address] PATHOLOGIST HAND GLOVE CLEANER SARAH ANDREWS M.D. Performed By: #### CBC, CMP, HEPATIC, LIPASE, HCGQNT #### [facility] [address] [place] [address] [place] DIPSTICK AND MICROSCOPIC Collected: 5:44 PM Status: F Source: [facility] Order Comment: Name Collecti on Type:: Clean-Voided Midstream TYPE CODE TESTS RESULT OUT OF RANGE REFERENCE UNITS LAB UCOL Color,Urine Light-Yellow Yellow LAB UAPP Appearance,Uri ne Clear Clear LAB USG Specificy [place],Urine 1.018 Normal 1.001-1.030 LAB UPH pH,Urine 6.5 Normal 5.0-9.0 LAB ULE Leukocyte Esterase,Urine 3+ High Negative LAB UNIT Nitrite,Urine Negative Negative LAB UPRO Protein,Urine Negative Negative LAB UGL Glucose,Urine (UA) 150 High Normal mg/dL LAB UKET Ketones,Urine 4+ High Negative LAB UURO Urobilinogen,U rine Normal Normal LAB UBIL Bilirubin,Urin e Negative Negative LAB UBLD Occult Blood,Urine Negative Negative Result Comment: PERFORMED BY : [place] [address] PATHOLOGIST HAND GLOVE CLEANER SARAH ANDREWS M.D. LAB URBC RBC,Urine 1 0-4 [HPF] LAB UWBC WBC,Urine 3 0-4 [HPF] LAB USQEPI Squamous Epithelial Cell,Urine 3 High 0-2 [HPF] LAB UBACT Bacteria,Urine None Seen None Seen LAB UHYALC Hyaline Casts,Urine None 0-8 LAB MUCUS Mucus,Urine Rare Result Comment: PERFORMED BY : [address] [address] PATHOLOGIST HAND GLOVE CLEANER SARAH ANDREWS M.D. Performed By: #### ADDONUAPL US #### [facility] [address] [place] [id number] [facility] RESPIRATORY (UPPER) PANEL, PCR Observed: 04/05/2024 3:52 PM Status: F Source: [facility] Adenovirus Not detected Bordetella parapertussis Not [...] Influenza A H3 Blank Space PERFORMED BY: [place] [address] PATHOLOGIST HAND GLOVE CLEANER SARAH ANDREWS M.D. Performed By: #### RESP COURTNEY Schulte UPP., BIOFIRECOVNOTDE #### [address] BIOFIRE NOT DETECTED Collected: 04/05/2024 3:52 PM S tatus: F Source: [facility] TYPE CODE TESTS RESULT OUT OF RANGE REFERENCE UNITS LAB BIOFIRECOVNOTDE BioFire Not Detected Not Detected Not Detecte Result Comment: This is a du plicate RP2.1 COVID (PCR) result to be used for statistical tracking purpose only. PERFORMED BY: [place] [address] PATHOLOGIST HAND GLOVE CLEANER SARAH ANDREWS M.D. Performed By: #### RESP COURTNEY Schulte UPP., BIOFIRECOVNOTDE #### [facility] [address] COMPLETE BLOOD COUNT AUTO DIFF Collected: 04/05/2024 3:45 PM Status: F Source: F [facility] TYPE CODE TESTS RESULT OUT OF RANGE [...] 0.0-0.2 10*3/uL Result Comment: PERFORMED BY : [facility] [address] [place] [address] PATHOLOGIST HAND GLOVE CLEANER SARAH ANDREWS M.D. Performed By: #### CMP, LIPA SE, CBC #### [facility] [address] COMPREHENSIVE METABOLIC PANEL Collected: 04/05/2024 3 :45 PM Status: F Source: [facility] TYPE CODE TESTS RESULT OUT OF [...] C alc Pharmacy 181.93 Performed By: #### CMP, LIPA SE, CBC #### [facility] [address] LIPASE Collected: 3:45 PM Status: F Source: [facility] TYPE CODE TESTS RESULT OUT OF RANGE REFERENCE UNITS LAB LIPASE Lipase 11.0 Normal 11.0-82.0 U/L Result Comment: PERFORMED BY : [place] [address] PATHOLOGIST HAND GLOVE CLEANER SARAH ANDREWS M.D. Performed By: #### CMP, LIPA SE, CBC #### [facility] [address] [place] [id number] [facility] US OB TRANSVAGINAL Observed: 03/24/2024 10:10 AM Status: F Source: [facility] EPIC Order Comment: US [...] x 5.5 cm (8 weeks, 6 days). Hoffman rump length is 2.1 cm (8 weeks, [...] MICROSCOPIC Collected: 12:30 PM Status: F Source: [facility] Order Comment: Name Collecti on Type:: Clean-Voided Midstream TYPE CODE TESTS RESULT OUT OF RANGE REFERENCE UNITS LAB UCOL Color,Urine Light-Yellow Yellow LAB UAPP Appearance,Uri ne Clear Clear LAB USG Specificy [place],Urine 1.023 Normal 1.001-1.030 LAB UPH pH,Urine 8.5 Normal 5.0-9.0 LAB ULE Leukocyte Esterase,Urine Negative Negative LAB UNIT Nitrite,Urine Negative Negative LAB UPRO Protein,Urine 20 High Negative mg/dL LAB UGL Glucose,Urine (UA) Normal Normal LAB UKET Ketones,Urine 2+ High Negative LAB UURO Urobilinogen,U rine Normal Normal LAB UBIL Bilirubin,Urin e Negative Negative LAB UBLD Occult Blood,Urine Negative Negative Result Comment: PERFORMED BY : [place] [address] PATHOLOGIST HAND GLOVE CLEANER SARAH ANDREWS M.D. LAB URBC RBC,Urine 3 0-4 [HPF] LAB UWBC WBC,Urine 1 0-4 [HPF] LAB USQEPI Squamous Epithelial Cell,Urine 5 High 0-2 [HPF] LAB UBACT Bacteria,Urine Rare None Seen LAB UHYALC Hyaline Casts,Urine None 0-8 LAB MUCUS Mucus,Urine 2+ Abnormal Alert Result Comment: PERFORMED BY : [place] [address] PATHOLOGIST HAND GLOVE CLEANER SARAH ANDREWS M.D. Performed By: #### ADDONUAPL #### [address] HEPATIC PANEL Collected: 03/04/2024 11:30 AM Status: F Source: [facility] TYPE CODE TESTS RESULT OUT OF [...] 32 Low 34-104 U/L Performed By: #### HEPATIC, BMP, LIPASE, HCGQNT, SCAN CBC #### [facility] [address] BASIC METABOLIC PANEL Collected: 2023 11:30 AM Status: F Source: [facility] TYPE CODE TESTS RESULT OUT OF [...] Clr Calc Pharmacy 122.59 Performed By: #### HEPATIC, BMP, LIPASE, HCGQNT, SCAN CBC #### [facility] [address] [place] [id number] [facility] LIPASE Collected: 11:30 AM Status: F Source: [facility] TYPE CODE TESTS RESULT OUT OF RANGE REFERENCE UNITS LAB LIPASE Lipase 15.0 Normal 11.0-82.0 U/L Performed By: #### HEPATIC, BMP, LIPASE, HCGQNT, SCAN CBC #### [facility] [address] HCG,QUANTITATIVE Collected: 11:30 AM Status: F Source: [facility] TYPE CODE TESTS RESULT OUT OF RANGE REFERENCE UNITS LAB HCGQNT HCG,Quantit ative 98073.00 m[iU]/mL Result Comment: Approximate Approximate hCG Gestational Age Range (mIU/ml) (weeks) 0.2-1 5-50 1-2 50-500 2-3 100-5,000 3-4 500-10,000 4-5 1,000-50,000 5-6 10,000-100,000 6-8 15,000-200,000 8-12 10,000-100,000 PERFORMED BY: [facility] [address] [place] [address] PATHOLOGIST HAND [employer] SARAH ANDREWS M.D. Performed By: #### HEPATIC, BMP, LIPASE, HCGQNT, SCAN CBC #### [facility] [address] SCAN AND CBC Collected: 03/04/2024 11:30 AM Status: F Source: [facility] TYPE CODE TESTS RESULT OUT OF [...] Normal Normal Result Comment: PERFORMED BY : CRANE, [place] [id number] PATHOLOGIST HAND GLOVE CLEANER SARAH ANDREWS M.D. Performed By: #### HEPATIC, BMP, LIPASE, HCGQNT, SCAN CBC #### [facility] [address] [place] [address] CT CERVICAL SPINE WO CON Observed: 11/24 6:53 PM Status: COMPLETED Source: [facility] [place] [address] CT Scan Report Signed Patient: Nicole Farris MR#: [id number] : 1995 Acct:[id number] Age/Sex: 28 / F ADM Date: 11/25/23 Loc: ER Room: Type: [facility] ER Attending Dr: Copies to: Vianney Genao APRN Ordering Provider: Vianney Genao APRN Date of Service: 11/25/23 CT/CT cervical spine wo con: increased pain ([id number]) CT/CT head/brain wo con: pain CLINICAL DATA: [...] Priscila Barbosa M.D.11/25/2023 7:01 PM Dictation Location: [place] [address] Transcribed By: [facility] 11/25/231900 Dictated By: Priscila Barbosa MD 11/25/231852 Signed By: <Electronically signed by MD Priscila Barbosa in OV> 11/25/231900 XR CERVICAL SPINE 2-3 VIEWS Observed: 10/05/2023 2:15 PM Status: F Source: [facility] EPIC FINDINGS: Vertebral bodies are normally aligned. Vertebral body heights and disc space heights are well maintained. No significant osteophyte formation. Minimal diffuse facet arthropathy. No acute fracture or dislocation is identified. Soft tissues are unremarkable. IMPRESSION: Minimal arthritis, normal alignment TRANSCRIBED BY: ELECTRONICALLY SIGNED BY: Davon Coles MD ALLERGIES DATE TYPE / CODE NAME / CODE REACTION SEVERITY SOURCE 06/29/2024 Drug Allergy/[id number] (SNOMED CT) codeine/[id number] 0(RXNORM) Hives Unknown [facility] ENCOUNTERS ADMIT/DISCHARGE ACCOUNT NUMBER ADMITTING ENCOUNTER CLASS LOCATION SOURCE 09/25/2024/09/26/19 [id number] Ambulatory Building:[facility] 09/11/2024/09/12/19 [id number] Ambulatory Building:[facility] 08/28/2024/08/29/19 [id number] Ambulatory Building:[facility] 08/10/2024/08/11/19 [id number] Ambulatory Building:[facility] 07/19/2024/07/20/19 [id number] Ambulatory Building:[facility] 07/19/2024/07/20/19 [id number] Ambulatory Building:[facility] 06/29/2024/06/30/19 [id number] [facility]minder Powell [facility] 06/21/2024/06/22/19 [id number] Ambulatory Building:[facility] 06/12/2024/06/13/19 [id number] Ambulatory Building:[facility] 06/07/2024/06/08/19 [id number] Mateo Navas [facility] 05/25/2024/05/26/19 [id number] Ambulatory Building:[facility] 05/19/2024/05/19/19 25 [id number] Glenn Abdullah[facility] 05/16/2024/05/16/19 [id number] Glenn Abdullahi [facility]:EDFTRoom: [facility] 04/24/2024/04/24/19 25 [id number] Ambulatory Building:[facility] EPIC 04/05/2024/04/05/19 25 [id number] Parminder Powell [facility] 03/24/2024/03/24/19 25 [id number] Ambulatory Building:[facility] EP[facility] 03/24/2024/03/24/19 25 [id number] Ambulatory Building:[facility] 03/04/2024/03/04/20 24 [id number] Surjit Stanton [facility] 11/25/2023/11/25/19 24 [id number] Vianney Genao [facility]05/[facility]23/10/05/19 24 [id number] Ambulatory Building:[facility] SWSIMG [facility] EPIC 10/05/2023/10/05/19 24 [id number] [facility] PAYERS ENCOUNTER GUARANTOR PAYER SUBSCRIBER SOURCE 09/25/2024 NICOLE HORANB: [place] [address]Fbc: (ZZ) Primary Insurance:[employer] MEDICAID [place] Number: [id number] Date:2024 NICOLE HORANB: [id number] [place] [address] [facility] 09/11/2024 NICOLE HORANB: [place] [address]Pdt: (OD) Primary Insurance:[facility] Number: [id number] Date:2023-11-21 LUIS HORANB: [id number] [place] [address] [facility] EPIC 08/28/2024 NICOLE Kaye DELGADODOB: [facility] [address]Wtw: (HP) Primary Insurance:BCBSPolicy Number: [id number] Date:2023-11-21 LUIS MONDRAGONDODOB: [id number] [place] [address] [facility] EPIC 08/10/2024 NICOLE H DELGADODOB: [place] [address]Ttn: (HP) Primary Insurance:BCBSPolicy Number: [id number] Date:2023-11-21 LUIS MONDRAGONDODOB: [id number] [place] [address] [facility] EPIC 07/19/2024 NICOLE HEALYGADODOB: [place] [address]Vvq: (HP) Primary Insurance:BCBSPolicy Number: [id number] Date:2023-11-21 LUIS MONDRAGONDODOB: [id number] [place] [address] [facility] EPIC 07/19/2024 NICOLE MONDRAGONDODOB: [place] [address]Uep: (HP) Primary Insurance:BCBSPolicy Number: [id number] Date:2023-11-21 LUIS HEALYGADODOB: [id number] [place] [address] [facility] EPIC 06/29/2024 Nicole Kaye [id number] [place] [address]Yye: (HP) Primary Insurance:[employer]obar [employer]/Elvira Number: [id number] Date:2024-06-29 Luis Martin AyangadoDOB: [id number] [facility] [place] [address]Lil: () [facility] 06/29/2024 Secondary Insurance:Self PayPolicy Number: Effective Date:2024-06-29 [facility] 06/21/2024 NICOLE Kaye BRENTONDOB: [place] [address]Xus: () Primary Insurance:BCBSPolicy Number: [id number] Date:2023-11-21 LUIS BRENTONDOB: [id number] [place] [address] [facility] EPIC 06/12/2024 NICOLE Kaye BRENTONDOB: [place] [address]Qmp: () Primary Insurance:BCBSPolicy Number: [id number] Date:2023-11-21 LUIS MONDRAGONDOB: [id number] [place] [address] [facility] EPIC 06/07/2024 Nicole [id number] [place] [address]Wui: () Primary Insurance:[employer]obar [employer]/Elvira Number: [id number] Date:2024-06-07 Luis Martin AyangadoDOB: [id number] [place] [address]Xtq: () [facility] 06/07/2024 Secondary Insurance:Self PayPolicy Number: Effective Date:2024-06-07 [facility] 05/25/2024 NICOLE Kaye BRENTONDOB: [place] [address]Wvi: (HP) Primary Insurance:BCBSPolicy Number: [id number] Date:2023-11-21 LUIS BRENTONDOB: [id number] [place] [address] [facility] 05/19/2024 Nicole Kaye [id number] [place] [address]Gep: (HP) Primary Insurance:Escobar PA/BSPolicy Number: [id number] Date:2024-05-19 Luis Martin BrentonDOB: [id number] [place] [address]Duj: () [facility] 05/19/2024 Secondary Insurance:Self PayPolicy Number: Effective Date:2024-05-19 [facility] 05/16/2024 Nicole Kaye [id number] [place] [address]Nmf: (HP) Primary Insurance:Escobar PA/BSPolicy Number: [id number] Date:2024-05-16 Luis Martin BrentonDOB: [id number] [place] [address]Fpl: () [facility] 05/16/2024 Secondary Insurance:Self PayPolicy Number: Effective Date:2024-05-16 [facility] 04/24/2024 NICOLE Kaye BRENTONDOB: [id number] [place] [address]Sdf: () Primary Insurance:BCBSPolicy Number: [id number] Date:2023-11-21 LUIS BRENTONDOB: [id number] [place] [address] [facility] 04/05/2024 Nicole H [id number] [place] [address]Ivf: () Primary Insurance:Escobar PA/BSPolicy Number: [id number] Date:2024-04-05 Luis Martin JassidoDOB: [id number] [facility] [place] [address]Vos: () [facility] 04/05/2024 Secondary Insurance:Self PayPolicy Number: Effective Date:2024-04-05 NOT GIVENUNK [facility] 03/24/2024 NICOLE Kaye BRENTONDOB: [place] [address]Ljj: () Primary Insurance:BCBSPolicy Number: [id number] Date:2023-11-21 LUIS MÓNICAB: [id number] [place] [address] [facility] 03/24/2024 NICOLE Kaye BRENTONDOB: [place] [address]Qdk: () Primary Insurance:BCBSPolicy Number: [id number] Date:2023-11-21 LUIS HEALYLIMADOB: [id number] [place] [address] [facility] 03/04/2024 Nicole Kaye [id number] [place] [address]Klt: () Primary Insurance:Escobar PA/BSPolicy Number: [id number] Date:2024-03-04 Luis Martin JassidoDOB: [id number] [place] [address]Sbx: () [facility] 03/04/2024 Secondary Insurance:Self PayPolicy Number: Effective Date:2024-03-04 NOT GIVENUNK [facility] 11/25/2023 Nicole Kaye [id number] [place] [address]Lyz: (HP) Primary Insurance:Escobar PA/SHYAMolicy Number: [id number] Date:2023-11-25 Luis Mario HoranB: [id number] [place] [address]Ctl: (HP) [facility] 11/25/2023 Secondary Insurance:Self PayPolicy Number: Effective Date:2023-11-25 NOT GIVENUNK [facility] 10/05/2023 NICOLE Mikki MÓNICAB: [place] [address]Vfl: (HP) [facility] Number: [id number] Date:2023-10-05 NICOLE HORANB: [id number] [place] [address] [facility] 10/05/2023 NICOLE HORANB: [id number] [place] [address]Whh: (HP) Primary Insurance:[facility]OSPITALPolicy Number: [id number] Date:2023-10-05 NICOLE HORANB: [id number] [place] [address] [facility]
--- NOTE | 2024-09-26 | US_ITS ---
[place] [id number] Patient Name: ABBE VALENZUELA MRN: [facility]:[id number] date: 1995 Sex: F Assigned Patient Location: [facility] Current Patient Location: LAB Accession/Order Number: [id number] Exam Date: 09/26/2024 15:49 Report Date: 09/26/2024 15:50 At the request of: CROBY CAUSEY Procedure: US OB BPP w non-stress Ultrasound biophysical profile HISTORY: Gestational diabetes Adequate breathing movement, gross body movement, tone and amniotic fluid volume for total score of 8 out of 8. The amniotic fluid index is 24.1cm within normal limits. The heart rate 130 bpm. US/US OB BPP w non-stress IMPRESSION: Adequate ultrasound biophysical profile Impression dictated by: Mikie Hurtado M.D. 09/26/2024 3:50 PM Dictation Location: [place] [address] Electronically authenticated by: [id number] Y Date: 09/26/2024 15:50
--- OUTSIDE RECORDS SUMMARY | 2024-09-26 13:49 | XMS_ITS | Patient Health Record ---
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 Role Phone [facility] Primary Care Provide r Unavailable [...] Immunizations Vaccine Route Administration Date Status Comme [facility] [id number] Fluzone Quad PFS (0.5m L [...] Insured Coverage Start Date Coverage End Date [facility] [address] [place] [address] [id number] Nicole Farris Self - patient is the insured [employer] [place] [address] [place] [address] [phone] [id number] Nicole Farris Self - patient is the insured Medical (General) History Medical History History ICD Code Anxiety and depression F41.8 Surgical History Surgery Date(Month/Year) C section 10/16/2021 Hospitalization History Reason Date(Month/Year) surgeries
[2024-09-26 14:33] VITALS: BP 108/68; PULSE 98
== END 2024-09-26 15:00 | disposition home or self-care (01) ==
LOC: US 13:47 → FBC 13:55
PROVIDERS: PCP Family Medicine; Visit Provider Nurse Practitioner Family
DX: O24.419 Gestational diabetes mellitus in pregnancy, unspecified control (principal); O99.013 Anemia complicating pregnancy, third trimester
CPT/HCPCS: 36415; 76818; 82728; 84466

== ENCOUNTER 2024-09-26 15:04 | Outpatient (OUT) | payer MEDICAID, SELFPAY ==
--- OUTSIDE RECORDS SUMMARY | 2024-09-25 14:09 | XMS_ITS ---
Author Name Auto Generated Organization OHIP Support Name Relationship Address Phone LUIS FARRIS Next of Kin [address] [place] [address] + MANJU GARCIALONI Next of Kin Unknown [phone] BRENTON LUIS Next of Kin [address] [place] [address] + JOSE LALONI Next of Kin Unknown [phone] FARRIS, LUIS Next of Kin [address] [place] [address] + JOSE LALONI Next of Kin Unknown [phone] FARRIS, LUIS Next of Kin [address] [place] [address] + JOSE LALONI Next of Kin Unknown [phone] FARRIS, LUIS Next of Kin [address] [place] [address] + JOSE LALONI Next of Kin Unknown [phone] FARRIS, LUIS Next of Kin [address] [place] [address] + JOSE LALONI Next of Kin Unknown [phone] Farris, Luis Next of Kin [address] [place] [address] + Jose Laloni Next of Kin [address] [place] [address] + FARRIS, LUIS Next of Kin [address] [place] [address] + GROSSWILER, LALONI Next of Kin Unknown [phone] FARRIS, LUIS Next of Kin [address] [place] [address] + GROSSWILER, LALONI Next of Kin Unknown [phone] Farris, Luis Next of Kin [address] [place] [address] + Grosswiler, Laloni Next of Kin [address] [place] [address] + FARRIS, LUIS Next of Kin [address] [place] [address] + GROSSWILER, LALONI Next of Kin Unknown [phone] Farris, Luis Next of Kin [address] [place] [address] + Grosswiler, Laloni Next of Kin [address] [place] [address] + Farris, Luis Next of Kin [address] [place] [address] + Grosswiler, Laloni Next of Kin [address] [place] [address] + FARRIS, LUIS Next of Kin [address] [place] [address] + GROSSWILER, LALONI Next of Kin Unknown [phone] Farris, Luis Next of Kin [address] [place] [address] + Grosswiler, Laloni Next of Kin [address] [place] [address] [address] + FARRIS, LUIS Next of Kin [address] [place] [address] + SHANITA GARCIA Next of Kin Unknown [phone] LUIS FARRIS Next of Kin [address] [place] [address] + SHANITA GARCIA Next of Kin Unknown [phone] Luis Farris Next of Kin [address] [place] [address] + Shanita Garcia Next of Kin [address] [place] [address] + [place] [address] + Shanita Garcia Next of Kin [address] [place] [address] + LUIS FARRIS Next of Kin [address] [place] [address] + SHANITA GARCIA Next of Kin Unknown [phone] LUIS FARRIS Next of Kin [address] [place] [address] + SHANITA GARCIA Next of Kin Unknown [phone] Care Team Providers Care Reproduction Specialist Name Role Phone Yaz Hollis Primary Care Unavailable Surjit Stanton [...] Attending Unavailable Yaz Hollis Primary Care Unavailable BRINA, GABBY Attending Unavailable YANIV LAU Attending Unavailable BRINA, GABBY Attending Unavailable BRINA, GABBY Referring Unavailable CORBY CAUSEY Attending Unavailable RICARDO POWELL Attending Unavailable RICARDO POWELL Referring Unavailable BRINA, GABBY Attending Unavailable BRINA, GABBY Attending Unavailable SDI, YANIV Attending Unavailable BRINA, GABBY Attending Unavailable PROBLEMS DATE TYPE CONDITION / CODE ATTENDING STATUS HARINDER RCE 04/05/2024 Unknown Vomiting of , unspecified / O21.9(ICD-10) Parminder Powell [facility] 03/04/2024 Unknown Nausea with vomi ting, unspecified / R11.2(ICD-10) Surjit Stanton [facility] 11/25/2023 Unknown Headache, unspec ified / R51.9(ICD-10) Vianney Genao [facility] 11/25/2023 Unknown Cervicalgia / M54.2(ICD-10) [facility] PROCEDURES No Procedure Records Found RESULTS US OB LIMITED 1+ FETUSES Observed: 07/19 9:13 AM Status: F Source: [facility] EPIC Order Comment: US OB [...] II, MD, PHD at 23-Jul-2024 08:53:16 PM [facility] COMPLETE BLOOD COUNT AUTO DIFF Collected: 06/29/2024 4:27 PM Status: F Source: F [facility] TYPE CODE TESTS RESULT OUT OF [...] 0.0-0.2 10*3/uL Result Comment: PERFORMED BY : [place] [address] PATHOLOGIST ICE SELLER SARAH ANDREWS M.D. Performed By: #### CMP, MG, CBC #### [facility] [address] [place] [address] REDRAW POTASSIUM Collected: 06/29/2024 4:27 PM Statu s: F Source: [facility] TYPE CODE TESTS RESULT OUT OF RANGE REFERENCE UNITS LAB REDRAW K Redraw Potassium 3.8 Normal 3.5-5.1 mmol/L Performed By: #### REDRAW K, REDRAW MG, REDRAW AST #### [address] REDRAW MAGNESIUM Collected: 06/29/2024 4:27 PM Statu s: F Source: [facility] TYPE CODE TESTS RESULT OUT OF RANGE REFERENCE UNITS LAB REDRAW MG Redraw Magnesium 1.7 Low 1.9-2.7 mg/dL Performed By: #### REDRAW K, REDRAW MG, REDRAW AST #### [address] REDRAW AST Collected: 4:27 PM Status: F Source: [facility] TYPE CODE TESTS RESULT OUT OF RANGE REFERENCE UNITS LAB REDRAW AST Redraw AST 10 Low 13-39 U/L Result Comment: PERFORMED BY : [place] [address] PATHOLOGIST ICE SELLER SARAH ANDREWS M.D. Performed By: #### REDRAW K, REDRAW MG, REDRAW AST #### [facility] [address] [place] [address] DIPSTICK AND MICROSCOPIC Collected: 12/2024 4:27 PM Status: F Source: [facility] Order Comment: Name Collecti on Type:: Clean-Voided Midstream TYPE CODE TESTS RESULT OUT OF RANGE REFERENCE UNITS LAB UCOL Color,Urine Light-Yellow Yellow LAB UAPP Appearance,Uri ne Cloudy Abnormal Alert Clear LAB USG Specificy [place],Urine 1.019 Normal 1.001-1.030 LAB UPH pH,Urine 8.5 [...] Negative Negative Result Comment: PERFORMED BY : [address] [address] PATHOLOGIST ICE SELLER SARAH ANDREWS M.D. LAB URBC RBC,Urine 3-4 0-4 [HPF] LAB UWBC WBC,Urine 10-19 High 0-4 [HPF] LAB USQEPI Squamous Epithelial Cell,Urine 5-9 High 0-2 [HPF] LAB UCRY Othe Crystals,Urine 2+ LAB UBACT Bacteria,Urine Rare None Seen LAB UHYALC Hyaline Casts,Urine None 0-8 LAB MUCUS Mucus,Urine Rare Result Comment: PERFORMED BY : [place] [id number] PATHOLOGIST ICE SELLER SARAH ANDREWS M.D. Performed By: #### ADDONUAPL US, URDS, CUU #### [address] [address] [facility] DRUG SCREEN,URINE Collected: 06/29/2024 4:27 PM Stat us: F Source: [facility] TYPE CODE TESTS RESULT OUT OF [...] 25 ng/mL THC 20 ng/mL PERFORMED BY: [facility] [address] [place] [id number] PATHOLOGIST ICE SELLER SARAH ANDREWS M.D. Performed By: #### RAFAEL HANKS, CUU #### [facility] [address] [place] [id number] [facility] URINE CULTURE Observed: 06/29/2024 4:27 PM Status: F Source: [facility] <9,000 colonies/ml mixed bacterial skin contaminants 2 Days PERFORMED BY: [facility] [address] [place] [address] PATHOLOGIST ICE SELLER SARAH ANDREWS M.D. Performed By: #### RAFAEL HANKS CUU #### [facility] [address] [id number] [facility] COMPREHENSIVE METABOLIC PANEL Collected: 06/29/2024 3 :13 PM Status: F Source: [facility] TYPE CODE TESTS RESULT OUT OF [...] Performed By: #### CMP, MG, CBC #### [address] MAGNESIUM Collected: 3:13 PM Status: F Source: [facility] TYPE CODE TESTS RESULT OUT OF RANGE REFERENCE UNITS LAB MG Magnesium 1.9-2.7 Result Comment: Specimen hem olyzed, redraw requested PERFORMED BY: [place] [address] PATHOLOGIST ICE SELLER SARAH ANDREWS M.D. Performed By: #### CMP, MG, CBC #### [address] ECG 12 LEAD ECG Observed: 06/29/2024 3:09 PM Status: COMPLETED Source: [facility] [place] [address] Electrocardiograph Report Signed Patient: Nicole Farris MR#: [id number] : 1995 Acct:[id number] Age/Sex: 28 / F ADM Date: 06/29/24 Loc: ER Room: Type: [facility] ER Attending Dr: Ordering Provider: Parminder [...] ECGs available Confirmed by SALUD SCHWARZ DO ([id number]) on 06/30/2024 7:11:38 PM Referred By: Electronically Signed By: SALUD SCHWARZ DO Transcribed By: MUS Signed By Salud Schwarz DO 06/30 191 DRUG SCREEN,URINE Collected: 06/07/2024 12:13 PM Sta tus: F Source: [facility] TYPE CODE TESTS RESULT OUT OF [...] 25 ng/mL THC 20 ng/mL PERFORMED BY: [place] [address] PATHOLOGIST ICE SELLER SARAH ANDREWS M.D. Performed By: #### URDS #### [place] [id number] [facility] URINALYSIS Collected: 12:13 PM Status: F Source: [facility] Order Comment: Name Collecti on Type:: Clean-Voided Midstream TYPE CODE TESTS RESULT OUT OF RANGE REFERENCE UNITS LAB UCOL Color,Urine Light-Yellow Yellow LAB UAPP Appearance,Uri ne Clear Clear LAB USG Specificy [place],Urine 1.020 Normal 1.001-1.030 LAB UPH pH,Urine 8.0 Normal 5.0-9.0 LAB ULE Leukocyte Esterase,Urine Negative Negative LAB UNIT Nitrite,Urine Negative Negative LAB UPRO Protein,Urine Negative Negative LAB UGL Glucose,Urine (UA) 200 High Normal mg/dL LAB UKET Ketones,Urine 4+ High Negative LAB UURO Urobilinogen,U rine Normal Normal LAB UBIL Bilirubin,Urin e Negative Negative LAB UBLD Occult Blood,Urine Negative Negative Result Comment: PERFORMED BY : [place] [id number] PATHOLOGIST ICE SELLER MOHAMED M EL-FAKHARANY M.D. Performed By: #### UA #### [facility] [address] [id number] [facility] COMPLETE BLOOD COUNT AUTO DIFF Collected: 06/07/2024 11:21 AM Status: F Source: [facility] TYPE CODE TESTS RESULT OUT OF [...] 0.0-0.2 10*3/uL Result Comment: PERFORMED BY : [place] [address] PATHOLOGIST ICE SELLER SARAH ANDREWS M.D. Performed By: #### CBC, HEPA TIC, BMP, LIPASE #### [facility] [address] HEPATIC PANEL Collected: 06/07/2024 11:21 AM Status: F Source: [facility] TYPE CODE TESTS RESULT OUT OF [...] #### CBC, HEPA TIC, BMP, LIPASE #### [facility] [address] BASIC METABOLIC PANEL Collected: 2024 11:21 AM Status: F Source: [facility] TYPE CODE TESTS RESULT OUT OF [...] #### CBC, HEPA TIC, BMP, LIPASE #### [facility] [address] [place] [id number] [facility] LIPASE Collected: 11:21 AM Status: F Source: [facility] TYPE CODE TESTS RESULT OUT OF RANGE REFERENCE UNITS LAB LIPASE Lipase 13.0 Normal 11.0-82.0 U/L Result Comment: PERFORMED BY : [place] [address] PATHOLOGIST ICE SELLER SARAH ANDREWS M.D. Performed By: #### CBC, HEPA TIC, BMP, LIPASE #### [facility] [address] [place] [id number] [facility] US OB 14+ WEEKS ANATOMY SCAN Observed: 0 05/25/2024 1:27 PM Status: F Source: [facility] EPIC Order Comment: US OB ANATOMY [...] II, MD, PHD at 13-Jun-2024 09:57:02 AM [facility] DIPSTICK AND MICROSCOPIC Collected: 9:45 AM Status: F Source: [facility] Order Comment: Name Collecti on Type:: Clean-Voided Midstream TYPE CODE TESTS RESULT OUT OF RANGE REFERENCE UNITS LAB UCOL Color,Urine Light-[place] Abnormal Alert Yellow LAB UAPP Appearance,Uri ne Turbid Abnormal Alert Clear LAB USG Specificy [place],Urine 1.014 Normal 1.001-1.030 LAB UPH pH,Urine 8.0 Normal 5.0-9.0 LAB ULE Leukocyte Esterase,Urine Negative Negative LAB UNIT Nitrite,Urine Negative Negative LAB UPRO Protein,Urine Negative Negative LAB UGL Glucose,Urine (UA) Normal Normal LAB UKET Ketones,Urine 2+ High Negative LAB UURO Urobilinogen,U rine Normal Normal LAB UBIL Bilirubin,Urin e Negative Negative LAB UBLD Occult Blood,Urine Negative Negative Result Comment: PERFORMED BY : [place] [address] [place] [address] PATHOLOGIST ICE SELLER SARAH ANDREWS M.D. LAB URBC RBC,Urine 3-4 0-4 [HPF] LAB UWBC WBC,Urine None Seen 0-4 LAB USQEPI Squamous Epithelial Cell,Urine 1-2 0-2 [HPF] LAB UBACT Bacteria,Urine None Seen None Seen LAB UHYALC Hyaline Casts,Urine None 0-8 LAB MUCUS Mucus,Urine Rare Result Comment: PERFORMED BY : [place] [address] PATHOLOGIST ICE SELLER SARAH ANDERWS M.D. Performed By: #### ADDONUAPL US #### [place] [id number] [facility] DRUG SCREEN,URINE Collected: 05/19/2024 9:45 AM Stat us: F Source: [facility] TYPE CODE TESTS RESULT OUT OF [...] 25 ng/mL THC 20 ng/mL PERFORMED BY: [place] [address] PATHOLOGIST ICE SELLER SARAH ANDREWS M.D. Performed By: #### URDS #### [facility] [address] [place], [place] [id number] [facility] COMPLETE BLOOD COUNT AUTO DIFF Collected: 05/19/2024 9:15 AM Status: F Source: F [facility] TYPE CODE TESTS RESULT OUT OF [...] 0.0-0.2 10*3/uL Result Comment: PERFORMED BY : [place] [address] PATHOLOGIST ICE SELLER SARAH ANDREWS M.D. Performed By: #### CBC, CMP, HEPATIC, MG, LIPASE, HCGQNT #### [address] COMPREHENSIVE METABOLIC PANEL Collected: 05/19/2024 9 :15 AM Status: F Source: [facility] TYPE CODE TESTS RESULT OUT OF [...] CBC, CMP, HEPATIC, MG, LIPASE, HCGQNT #### [facility] [address] [place] [id number] [facility] HEPATIC PANEL Collected: 05/19/2024 9:15 AM Status: F Source: [facility] TYPE CODE TESTS RESULT OUT OF RANGE REFERENCE UNITS LAB BILID Bilirubin,Dir ect 0.00 Low 0.03-0.18 mg/dL Result Comment: If the DBIL is less than 0.1, IBIL is not able to be calculated. LAB BILII Bilirubin,Ind irect 0.3 mg/dL Performed By: #### CBC, CMP, HEPATIC, MG, LIPASE, HCGQNT #### [facility] [address] [place] [id number] [facility] MAGNESIUM Collected: 02/28/202 5 9:15 AM Status: F Source: [facility] TYPE CODE TESTS RESULT OUT OF RANGE REFERENCE UNITS LAB MG Magnesium 1.4 Low 1.9-2.7 mg/dL Performed By: #### CBC, CMP, HEPATIC, MG, LIPASE, HCGQNT #### [facility] [address] [place] [id number] [facility] LIPASE Collected: 9:15 AM Status: F Source: [facility] TYPE CODE TESTS RESULT OUT OF RANGE REFERENCE UNITS LAB LIPASE Lipase 20.0 Normal 11.0-82.0 U/L Performed By: #### CBC, CMP, HEPATIC, MG, LIPASE, HCGQNT #### [address] HCG,QUANTITATIVE Collected: 9:15 AM Status: F Source: [facility] TYPE CODE TESTS RESULT OUT OF RANGE REFERENCE UNITS LAB HCGQNT HCG,Quantit ative 73533.00 m[iU]/mL Result Comment: Approximate Approximate hCG Gestational Age Range (mIU/ml) (weeks) 0.2-1 5-50 1-2 50-500 2-3 100-5,000 3-4 500-10,000 4-5 1,000-50,000 5-6 10,000-100,000 6-8 15,000-200,000 8-12 10,000-100,000 PERFORMED BY: [place] [address] PATHOLOGIST ICE SELLER SARAH ANDREWS M.D. Performed By: #### CBC, CMP, HEPATIC, MG, LIPASE, HCGQNT #### [place] [id number] [facility] URINALYSIS Collected: 11:38 AM Status: F Source: [facility] Order Comment: Name Collecti on Type:: Clean-Voided Midstream TYPE CODE TESTS RESULT OUT OF RANGE REFERENCE UNITS LAB UCOL Color,Urine Light-Yellow Yellow LAB UAPP Appearance,Uri ne Clear Clear LAB USG Specificy [place],Urine 1.020 Normal 1.001-1.030 LAB UPH pH,Urine 8.0 Normal 5.0-9.0 LAB ULE Leukocyte Esterase,Urine Negative Negative LAB UNIT Nitrite,Urine Negative Negative LAB UPRO Protein,Urine Negative Negative LAB UGL Glucose,Urine (UA) 500 High Normal mg/dL LAB UKET Ketones,Urine 4+ High Negative LAB UURO Urobilinogen,U rine Normal Normal LAB UBIL Bilirubin,Urin e Negative Negative LAB UBLD Occult Blood,Urine Negative Negative Result Comment: PERFORMED BY : [facility] [address] [place] [address] PATHOLOGIST ICE SELLER SARAH ANDREWS M.D. Performed By: #### UA #### [facility] [address] COMPLETE BLOOD COUNT AUTO DIFF Collected: 05/16/2024 10:54 AM Status: F Source: [facility] TYPE CODE TESTS RESULT OUT OF [...] 0.0-0.2 10*3/uL Result Comment: PERFORMED BY : [place] [address] PATHOLOGIST ICE SELLER SARAH ANDREWS M.D. Performed By: #### CBC, CMP, HEPATIC, LIPASE, HCGQNT #### [facility] [address] [place] [address] COMPREHENSIVE METABOLIC PANEL Collected: 05/16/2024 1 0:54 AM Status: F Source: [facility] TYPE CODE TESTS RESULT OUT OF [...] #### CBC, CMP, HEPATIC, LIPASE, HCGQNT #### [facility] [address] HEPATIC PANEL Collected: 10:54 AM Status: F Source: [facility] TYPE CODE TESTS RESULT OUT OF RANGE REFERENCE UNITS LAB BILID Bilirubin,Dir ect 0.00 Low 0.03-0.18 mg/dL Result Comment: If the DBIL is less than 0.1, IBIL is not able to be calculated. LAB BILII Bilirubin,Ind irect 0.4 mg/dL Performed By: #### CBC, CMP, HEPATIC, LIPASE, HCGQNT #### [place] [id number] [facility] LIPASE Collected: 10:54 AM Status: F Source: [facility] TYPE CODE TESTS RESULT OUT OF RANGE REFERENCE UNITS LAB LIPASE Lipase 25.0 Normal 11.0-82.0 U/L Performed By: #### CBC, CMP, HEPATIC, LIPASE, HCGQNT #### [address] HCG,QUANTITATIVE Collected: 10:54 AM Status: F Source: [facility] TYPE CODE TESTS RESULT OUT OF RANGE REFERENCE UNITS LAB HCGQNT HCG,Quantit ative 76053.00 m[iU]/mL Result Comment: Approximate Approximate hCG Gestational Age Range (mIU/ml) (weeks) 0.2-1 5-50 1-2 50-500 2-3 100-5,000 3-4 500-10,000 4-5 1,000-50,000 5-6 10,000-100,000 6-8 15,000-200,000 8-12 10,000-100,000 PERFORMED BY: [place] [address] PATHOLOGIST ICE SELLER SARAH ANDREWS M.D. Performed By: #### CBC, CMP, HEPATIC, LIPASE, HCGQNT #### [facility] [address] [place] [address] [place] DIPSTICK AND MICROSCOPIC Collected: 5:44 PM Status: F Source: [facility] Order Comment: Name Collecti on Type:: Clean-Voided Midstream TYPE CODE TESTS RESULT OUT OF RANGE REFERENCE UNITS LAB UCOL Color,Urine Light-Yellow Yellow LAB UAPP Appearance,Uri ne Clear Clear LAB USG Specificy [place],Urine 1.018 Normal 1.001-1.030 LAB UPH pH,Urine 6.5 Normal 5.0-9.0 LAB ULE Leukocyte Esterase,Urine 3+ High Negative LAB UNIT Nitrite,Urine Negative Negative LAB UPRO Protein,Urine Negative Negative LAB UGL Glucose,Urine (UA) 150 High Normal mg/dL LAB UKET Ketones,Urine 4+ High Negative LAB UURO Urobilinogen,U rine Normal Normal LAB UBIL Bilirubin,Urin e Negative Negative LAB UBLD Occult Blood,Urine Negative Negative Result Comment: PERFORMED BY : [place] [address] PATHOLOGIST ICE SELLER SARAH ANDREWS M.D. LAB URBC RBC,Urine 1 0-4 [HPF] LAB UWBC WBC,Urine 3 0-4 [HPF] LAB USQEPI Squamous Epithelial Cell,Urine 3 High 0-2 [HPF] LAB UBACT Bacteria,Urine None Seen None Seen LAB UHYALC Hyaline Casts,Urine None 0-8 LAB MUCUS Mucus,Urine Rare Result Comment: PERFORMED BY : [address] [address] PATHOLOGIST ICE SELLER SARAH ANDREWS M.D. Performed By: #### ADDONUAPL US #### [facility] [address] [place] [address] [facility] RESPIRATORY (UPPER) PANEL, PCR Observed: 04/05/2024 3:52 PM Status: F Source: [facility] Adenovirus Not detected Bordetella parapertussis Not [...] Influenza A H3 Blank Space PERFORMED BY: [place] [address] PATHOLOGIST ICE SELLER SARAH ANDREWS M.D. Performed By: #### RESP COURTNEY Schulte UPP., BIOFIRECOVNOTDE #### [address] BIOFIRE NOT DETECTED Collected: 04/05/2024 3:52 PM S tatus: F Source: [facility] TYPE CODE TESTS RESULT OUT OF RANGE REFERENCE UNITS LAB BIOFIRECOVNOTDE BioFire Not Detected Not Detected Not Detecte Result Comment: This is a du plicate RP2.1 COVID (PCR) result to be used for statistical tracking purpose only. PERFORMED BY: [place] [address] PATHOLOGIST ICE SELLER SARAH ANDREWS M.D. Performed By: #### RESP COURTNEY Schulte UPP., BIOFIRECOVNOTDE #### [facility] [address] COMPLETE BLOOD COUNT AUTO DIFF Collected: 04/05/2024 3:45 PM Status: F Source: F [facility] TYPE CODE TESTS RESULT OUT OF [...] 0.0-0.2 10*3/uL Result Comment: PERFORMED BY : [facility] [address] [place] [address] PATHOLOGIST ICE SELLER SARAH ANDREWS M.D. Performed By: #### CMP, LIPA SE, CBC #### [facility] [address] COMPREHENSIVE METABOLIC PANEL Collected: 04/05/2024 3 :45 PM Status: F Source: [facility] TYPE CODE TESTS RESULT OUT OF [...] By: #### CMP, LIPA SE, CBC #### [facility] [address] LIPASE Collected: 3:45 PM Status: F Source: [facility] TYPE CODE TESTS RESULT OUT OF RANGE REFERENCE UNITS LAB LIPASE Lipase 11.0 Normal 11.0-82.0 U/L Result Comment: PERFORMED BY : [place] [address] PATHOLOGIST ICE SELLER SARAH ANDREWS M.D. Performed By: #### CMP, LIPA SE, CBC #### [facility] [address] [place] [id number] [facility] US OB TRANSVAGINAL Observed: 03/24/2024 10:10 AM Status: F Source: [facility] EPIC Order Comment: US OB [...] x 5.5 cm (8 weeks, 6 days). [place] rump length is 2.1 cm (8 weeks, [...] MICROSCOPIC Collected: 12:30 PM Status: F Source: [facility] Order Comment: Name Collecti on Type:: Clean-Voided Midstream TYPE CODE TESTS RESULT OUT OF RANGE REFERENCE UNITS LAB UCOL Color,Urine Light-Yellow Yellow LAB UAPP Appearance,Uri ne Clear Clear LAB USG Specificy [place],Urine 1.023 Normal 1.001-1.030 LAB UPH pH,Urine 8.5 Normal 5.0-9.0 LAB ULE Leukocyte Esterase,Urine Negative Negative LAB UNIT Nitrite,Urine Negative Negative LAB UPRO Protein,Urine 20 High Negative mg/dL LAB UGL Glucose,Urine (UA) Normal Normal LAB UKET Ketones,Urine 2+ High Negative LAB UURO Urobilinogen,U rine Normal Normal LAB UBIL Bilirubin,Urin e Negative Negative LAB UBLD Occult Blood,Urine Negative Negative Result Comment: PERFORMED BY : [place] [address] PATHOLOGIST ICE SELLER SARAH ANDREWS M.D. LAB URBC RBC,Urine 3 0-4 [HPF] LAB UWBC WBC,Urine 1 0-4 [HPF] LAB USQEPI Squamous Epithelial Cell,Urine 5 High 0-2 [HPF] LAB UBACT Bacteria,Urine Rare None Seen LAB UHYALC Hyaline Casts,Urine None 0-8 LAB MUCUS Mucus,Urine 2+ Abnormal Alert Result Comment: PERFORMED BY : [place] [address] PATHOLOGIST ICE SELLER SARAH ANDREWS M.D. Performed By: #### ADDONUAPL #### [address] HEPATIC PANEL Collected: 03/04/2024 11:30 AM Status: F Source: [facility] TYPE CODE TESTS RESULT OUT OF [...] HEPATIC, BMP, LIPASE, HCGQNT, SCAN CBC #### [facility] [address] BASIC METABOLIC PANEL Collected: 2023 11:30 AM Status: F Source: [facility] TYPE CODE TESTS RESULT OUT OF [...] HEPATIC, BMP, LIPASE, HCGQNT, SCAN CBC #### [facility] [address] [place] [id number] [facility] LIPASE Collected: 11:30 AM Status: F Source: [facility] TYPE CODE TESTS RESULT OUT OF RANGE REFERENCE UNITS LAB LIPASE Lipase 15.0 Normal 11.0-82.0 U/L Performed By: #### HEPATIC, BMP, LIPASE, HCGQNT, SCAN CBC #### [facility] [address] HCG,QUANTITATIVE Collected: 11:30 AM Status: F Source: [facility] TYPE CODE TESTS RESULT OUT OF RANGE REFERENCE UNITS LAB HCGQNT HCG,Quantit ative 17960.00 m[iU]/mL Result Comment: Approximate Approximate hCG Gestational Age Range (mIU/ml) (weeks) 0.2-1 5-50 1-2 50-500 2-3 100-5,000 3-4 500-10,000 4-5 1,000-50,000 5-6 10,000-100,000 6-8 15,000-200,000 8-12 10,000-100,000 PERFORMED BY: [facility] [address] [place] [address] PATHOLOGIST [employer] SE[employer]ER SARAH ANDREWS M.D. Performed By: #### HEPATIC, BMP, LIPASE, HCGQNT, SCAN CBC #### [facility] [address] SCAN AND CBC Collected: 03/04/2024 11:30 AM Status: F Source: [facility] TYPE CODE TESTS RESULT OUT OF [...] Normal Normal Result Comment: PERFORMED BY : [place] [address] PATHOLOGIST ICE SELLER SARAH ANDREWS M.D. Performed By: #### HEPATIC, BMP, LIPASE, HCGQNT, SCAN CBC #### [facility] [address] [place] [address] CT CERVICAL SPINE WO CON Observed: 11/24 6:53 PM Status: COMPLETED Source: [facility] [place] [address] CT Scan Report Signed Patient: Nicole Farris MR#: [id number] : 1995 Acct:[id number] Age/Sex: 28 / F ADM Date: 11/25/23 Loc: ER Room: Type: [facility] [facility] Attending Dr: Copies to: Vianney Genao APRN Ordering Provider: Vianney Genao APRN Date of Service: 11/25/23 CT/CT cervical spine wo con: increased pain ([id number]) CT/CT head/brain wo con: pain CLINICAL DATA: [...] M.D.11/25/2023 7:01 PM Dictation Location: [place] [address] Transcribed By: [facility] 11/25/231900 Dictated By: Priscila Barbosa MD 11/25/231852 Signed By: <Electronically signed by MD Priscila Barbosa in OV> 11/25/231900 XR CERVICAL SPINE 2-3 VIEWS Observed: 10/05/2023 2:15 PM Status: F Source: [facility] EPIC FINDINGS: Vertebral bodies are normally aligned. Vertebral body heights and disc space heights are well maintained. No significant osteophyte formation. Minimal diffuse facet arthropathy. No acute fracture or dislocation is identified. Soft tissues are unremarkable. IMPRESSION: Minimal arthritis, normal alignment TRANSCRIBED BY: ELECTRONICALLY SIGNED BY: Davon Coles MD ALLERGIES DATE TYPE / CODE NAME / CODE REACTION SEVERITY SOURCE 06/29/2024 Drug Allergy/[id number] (SNOMED CT) codeine/[id number] 0(RXNORM) Hives Unknown [facility] ENCOUNTERS ADMIT/DISCHARGE ACCOUNT NUMBER ADMITTING ENCOUNTER CLASS LOCATION SOURCE 09/25/2024/09/26/19 [id number] Ambulatory Building:[facility] 09/11/2024/09/12/19 [id number] Ambulatory Building:[facility] 08/28/2024/08/29/19 [id number] Ambulatory Building:[facility] 08/10/2024/08/11/19 [id number] Ambulatory Building:[facility] 07/19/2024/07/20/19 [id number] Ambulatory Building:[facility] 07/19/2024/07/20/19 [id number] Ambulatory Building:[facility] 06/29/2024/06/30/19 [id number] [facility] 06/21/2024/06/22/19 [id number] Ambulatory Building:[facility] 06/12/2024/06/13/19 [id number] Ambulatory Building:[facility] 06/07/2024/06/08/19 [id number] [facility] 05/25/2024/05/26/19 [id number] Ambulatory Building:[facility] 05/19/2024/05/19/19 25 [id number] Glenn [facility] 05/16/2024/05/16/19 [id number] Glenn [facility] 04/24/2024/04/24/19 25 [id number] Ambulatory Building:[facility] OB [facility] EPIC 04/05/2024/04/05/19 25 [id number] [facility]minder [facility] 03/24/2024/03/24/19 25 [id number] Ambulatory Building:[facility] EPIC 03/24/2024/03/24/19 25 [id number] Ambulatory Building:[facility] EPIC 03/04/2024/03/04/20 24 [id number] Surjit [facility] 11/25/2023/11/25/19 24 [id number] [facility]05[facility]10/05/19 24 [id number] Ambulatory Building:[facility] SWSIMG [facility] EPIC 10/05/2023/10/05/19 24 [id number] [facility] PAYERS ENCOUNTER GUARANTOR PAYER SUBSCRIBER SOURCE 09/25/2024 NICOLE HOR[place]B: [place] [address]Weo: (WQ) Primary Insurance:[employer] [employer] MEDICAID [place] Number: [id number] Date:2024 NICOLE HORANB: [id number] [place] [address] [facility] 09/11/2024 NICOLE HORANB: [place] [address]Uvl: (YI) Primary Insurance:[facility] Number: [id number] Date:2023-11-21 LUIS HORANB: [id number] [place] [address] [facility] EPIC 08/28/2024 NICOLE Kaye DELGADODOB: [facility] [place] [address]Weu: (HP) Primary Insurance:BCBSPolicy Number: [id number] Date:2023-11-21 LUIS MONDRAGONDODOB: [id number] [place] [address] [facility] EPIC 08/10/2024 NICOLE H DELGADODOB: [place] [address]Ljo: (HP) Primary Insurance:BCBSPolicy Number: [id number] Date:2023-11-21 LUIS MONDRAGONDODOB: [id number] [place] [address] [facility] EPIC 07/19/2024 NICOLE HEALYGADODOB: [place] [address]Epp: (HP) Primary Insurance:BCBSPolicy Number: [id number] Date:2023-11-21 LUIS MONDRAGONDODOB: [id number] [place] [address] [facility] EPIC 07/19/2024 NICOLE MONDRAGONDODOB: [place] [address]Tdy: (HP) Primary Insurance:BCBSPolicy Number: [id number] Date:2023-11-21 LUIS HEALYGADODOB: [id number] [place] [address] [facility] EPIC 06/29/2024 Nicole Kaye [id number] [place] [address]Pcg: (HP) Primary Insurance:[employer]obar [employer]/Elvira Number: [id number] Date:2024-06-29 Luis Martin AyangadoDOB: [id number] [facility] [place] [address]Ubg: () [facility] 06/29/2024 Secondary Insurance:Self PayPolicy Number: Effective Date:2024-06-29 [facility] 06/21/2024 NICOLE Kaye BRENTONDOB: [place] [address]Ncn: () Primary Insurance:BCBSPolicy Number: [id number] Date:2023-11-21 LUIS BRENTONDOB: [id number] [place] [address] [facility] EPIC 06/12/2024 NICOLE Kaye BRENTONDOB: [place] [address]Wdb: () Primary Insurance:BCBSPolicy Number: [id number] Date:2023-11-21 LUIS MONDRAGONDOB: [id number] [place] [address] [facility] EPIC 06/07/2024 Nicole Mondragondo3613 [place] [address]Rli: () Primary Insurance:[employer]obar [employer]/Elvira Number: [id number] Date:2024-06-07 Luis Martin AyangadoDOB: [id number] [place] [address]Dlt: () [facility] 06/07/2024 Secondary Insurance:Self PayPolicy Number: Effective Date:2024-06-07 [facility] 05/25/2024 NICOLE Kaye BRENTONDOB: [place] [address]Uht: (HP) Primary Insurance:BCBSPolicy Number: [id number] Date:2023-11-21 LUIS BRENTONDOB: [id number] [place] [address] [facility] 05/19/2024 Nicole Kaye [id number] [place] [address]Kkn: (HP) Primary Insurance:[employer]obar PA/BSPolicy Number: [id number] Date:2024-05-19 Luis Martin BrentonDOB: [id number] [place] [address]Gpu: () [facility] 05/19/2024 Secondary Insurance:Self PayPolicy Number: Effective Date:2024-05-19 [facility] 05/16/2024 Nicole Kaye [id number] [place] [address]Ndg: (HP) Primary Insurance:Escobar PA/BSPolicy Number: [id number] Date:2024-05-16 Luis Martin BrentonDOB: [id number] [place] [address]Qpr: () [facility] 05/16/2024 Secondary Insurance:Self PayPolicy Number: Effective Date:2024-05-16 [facility] 04/24/2024 NICOLE Kaye BRENTONDOB: [id number] [place] [address]Awc: () Primary Insurance:BCBSPolicy Number: [id number] Date:2023-11-21 LUIS BRENTONDOB: [id number] [place] [address] [facility] 04/05/2024 Nicole H [id number] [place] [address]Zqg: () Primary Insurance:Escobar PA/BSPolicy Number: [id number] Date:2024-04-05 Luis Martin JassidoDOB: [id number] [facility] [place] [address]Noz: () [facility] 04/05/2024 Secondary Insurance:Self PayPolicy Number: Effective Date:2024-04-05 NOT GIVENUNK [facility] 03/24/2024 NICOLE Kaye BRENTONDOB: [place] [address]Set: () Primary Insurance:BCBSPolicy Number: [id number] Date:2023-11-21 LUIS MÓNICAB: [id number] [place] [address] [facility] 03/24/2024 NICOLE Kaye BRENTONDOB: [place] [address]Yhn: () Primary Insurance:BCBSPolicy Number: [id number] Date:2023-11-21 LUIS HEALYLIMADOB: [id number] [place] [address] [facility] 03/04/2024 Nicole Kaye [id number] [place] [address]Axg: () Primary Insurance:Escobar PA/BSPolicy Number: [id number] Date:2024-03-04 Luis Martin JassidoDOB: [id number] [place] [address]Fjp: () [facility] 03/04/2024 Secondary Insurance:Self PayPolicy Number: Effective Date:2024-03-04 NOT GIVENUNK [facility] 11/25/2023 Nicole Kaye [id number] [place] [address]Lby: (HP) Primary Insurance:Escobar PA/SHYAMolicy Number: [id number] Date:2023-11-25 Luis Mario HoranB: [id number] [place] [address]Mbj: (HP) [facility] 11/25/2023 Secondary Insurance:Self PayPolicy Number: Effective Date:2023-11-25 NOT GIVENUNK [facility] 10/05/2023 NICOLE Mikki MÓNICAB: [place] [address]Hqf: (HP) Primary Insurance:[facility]IGHPolicy Number: [id number] Date:2023-10-05 NICOLE HORANB: [id number] [place] [address] [facility] 10/05/2023 NICOLE HORANB: [id number] [place] [address]Rnq: (HP) Primary Insurance:[facility] GLENBEIGHPolicy Number: [id number] Date:2023-10-05 NICOLE HORANB: [id number] [place] [address] [facility]
[2024-09-26 16:05] LABS: Ferritin 8.0 ng/mL (8.0-252.0)
[2024-09-27 04:08] LABS: Transferrin 472 mg/dL (192-364)
== END 2024-09-26 15:05 | disposition home or self-care (01) ==
PROVIDERS: PCP Family Medicine; Visit Provider Nurse Practitioner Family
DX: O24.419 Gestational diabetes mellitus in pregnancy, unspecified control (principal); O99.013 Anemia complicating pregnancy, third trimester
CPT/HCPCS: 36415; 82728; 84466

== ENCOUNTER 2024-09-29 11:55 | Outpatient (OUT) | payer MEDICAID, SELFPAY ==
[2024-09-29 12:24] VITALS: BP 103/63; PULSE 106
== END 2024-09-29 12:58 | disposition home or self-care (01) ==
LOC: FBCO 11:55 → FBC 12:20
PROVIDERS: PCP Family Medicine; Visit Provider Obstetrics & Gynecology
DX: O24.419 Gestational diabetes mellitus in pregnancy, unspecified control (principal)
CPT/HCPCS: 59025

== ENCOUNTER 2024-10-03 13:37 | Outpatient (OUT) | payer MEDICAID, SELFPAY ==
--- NOTE | 2024-10-03 | US_ITS ---
[place] [id number] Patient Name: ABBE VALENZUELA MRN: [facility]:[id number] date: 1995 Sex: F Assigned Patient Location: [facility] Current Patient Location: [facility] Accession/Order Number: [id number] Exam Date: 10/03/2024 15:13 Report Date: 10/03/2024 15:13 At the request of: CORBY CAUSEY Procedure: US OB BPP w non-stress Ultrasound biophysical profile HISTORY: Gestational diabetes Adequate breathing movement, gross body movement, tone and amniotic fluid volume for total score of 8 out of 8. The amniotic fluid index is 18.9cm within normal limits. The heart rate 135 bpm. US/US OB BPP w non-stress IMPRESSION: Adequate ultrasound biophysical profile Impression dictated by: Mikie Hurtado M.D. 10/03/2024 3:13 PM Dictation Location: [place] [address] Electronically authenticated by: [id number] Y Date: 10/03/2024 15:13
[2024-10-03 14:24] VITALS: BP 104/65; PULSE 90
== END 2024-10-03 15:00 | disposition home or self-care (01) ==
LOC: US 13:37 → FBC 13:49
PROVIDERS: PCP Family Medicine; Visit Provider Nurse Practitioner Family
DX: O24.419 Gestational diabetes mellitus in pregnancy, unspecified control (principal); Z3A.00 Weeks of gestation of pregnancy not specified
CPT/HCPCS: 76818

== ENCOUNTER 2024-10-04 14:58 | Outpatient (REF) | payer MEDICAID, SELFPAY ==
--- OUTSIDE RECORDS SUMMARY | 2024-10-04 15:01 | XMS_ITS | Patient Health Record ---
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 Role Phone [facility] Primary Care Provide r Unavailable [...] Notes Problem Mixed anxiety and depressive disorder (215187758) Anxiety and depression (F41.8) Active confirmed Plan Of Treatment No Information Insurance Providers Payer Name Payer Address Payer Phone Subscriber Number Group Number Insured Name Patient Relationship to Insured Coverage Start Date Coverage End Date [facility] [address] [place] [address] [id number] Nicole Farris Self - patient is the insured [employer] [place] [address] [place] [address] [id number] Nicole Farris Self - patient is the insured Medical (General) History Medical History History ICD Code Anxiety and depression F41.8 Surgical History Surgery Date(Month/Year) C section 10/16/2021 Hospitalization History Reason Date(Month/Year) surgeries
== END 2024-10-04 14:59 | disposition home or self-care (01) ==
LOC: LAB 14:58
PROVIDERS: PCP Family Medicine; Visit Provider Obstetrics & Gynecology
DX: Z34.93 Encounter for supervision of normal pregnancy, unspecified, third trimester (principal)
CPT/HCPCS: 87081

== ENCOUNTER 2024-10-09 07:31 | Outpatient (RCR) | payer MEDICAID, SELFPAY ==
[2024-10-04 14:48] VITALS: BP 101/70; PULSE 102; TEMP 36.6; O2SAT 96
[2024-10-04] MEDS: FERRIC CARBOXYMALTOSE 750 MG in 0.9 % SODIUM CHLORIDE 250 ML 795 MG IV (15:03)
[2024-10-09] MEDS: FERRIC CARBOXYMALTOSE 750 MG in 0.9 % SODIUM CHLORIDE 250 ML 795 MG IV (14:49)
--- NOTE | 2024-10-09 15:47 | PC.NURSE ---
1525, nauseated, emesis in bathroom, Dr. Quintero notified order received for zofran 4 mg ivp.
--- NOTE | 2024-10-09 15:48 | PC.NURSE ---
8319 patient states nausea much improved. IV dc'd catheter intact. cottonball and coban applied, released ambulatory with spouse
== END 2024-10-19 23:59 | disposition home or self-care (01) ==
LOC: INF 07:31
PROVIDERS: PCP Family Medicine; Visit Provider Nurse Practitioner Family
DX: D50.9 Iron deficiency anemia, unspecified (principal)
CPT/HCPCS: 87081; 96365; 96375; J1439; J2405

== ENCOUNTER 2024-10-10 04:53 | Inpatient (IN) | payer MEDICAID, SELFPAY ==
[2024-10-10] VITALS (30 sets, daily range): BP systolic 97–124; BP diastolic 59–78; PULSE 76–100; TEMP 36.4–37.1; O2SAT 97–100
--- OUTSIDE RECORDS SUMMARY | 2024-10-10 05:00 | XMS_ITS | CCD ---
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 Name Role Phone PRIYANKA, CHRISTOPHER Unavailable Unavailable [...] INGRID, DR PIERRE Attending Unavailable INGRID, DR PIRERE Consulting Unavailable INGRID, DR PIERRE Admitting Unavailable [...] Care Provider DO Adin Gan Attending Provider [phone] Claribel Mora Unavailable DO Yaz Hollis Primary Care Provider [phone] CHARLEEN Genao Emergency Provider Kb Hollis DO Primary Care Provider Enoch Villalobos DO Unavailable [phone] Yaz Hollis DO Primary Care Provider Surjit Stanton DO Emergency Provider Unavai Parminder Sorto PA-C Emergency Provider Enoch Villalobos DO Unavailable [phone] Glenn Abdullahi APRN Emergency Provider [phone] Yaz Hollis DO Primary Care Provider Parminder Serrano PA-C Emergency Provider Glenn Abdullahi APRN Emergency [...] Attending Unavailable Yaz Hollis Primary Care Unavailable Eloise, Mateo M Admitting Unavailable Eloise, Mateo M Attending Unavailable Yaz Hollis Primary Care Unavailable Parminder Serrano Admitting Unavailable Parminder Serrano Attending Unavailable Vianney Genao Admitting Unavailable SafandieeVianney N Attending Unavailable Yaz Hollis Primary Care Unavailable INGRID, JAGUAR Attending Unavailable SID, SULEMA Attending Unavailable INGRID, JAGUAR Attending Unavailable INGRID, JAGUAR Referring Unavailable CORBY ROYAL Attending Unavailable INGRID, JAGUAR Attending Unavailable INGRID, JAGUAR Attending Unavailable SID, SULEMA Attending Unavailable INGRID, JAGUAR Attending Unavailable INGRID, JAGUAR Attending Unavailable Allergies Allergy Classification Reported Allergen(s) Allergy Type Date of Onset Reaction(s) Facility (1 source) black walnut pollen extract Drug Allergy [facility] Repository (8 sources) Codeine Drug Allergy 04-28-19 21 Hives The [facility] Repository (8 sources) Penicillins Drug allergy (disorder) 04-28-19 21 [facility] Repository (1 source) Plasmin Drug Allergy 10-17-19 22 The [facility] Repository (1 source) Sulfamethoxazole / Trimethoprim Drug Allergy 10-17-19 22 The [facility] Repository (1 source) Sulfonamides (Antibiotic) Drug allergy (disorder) 10-17-19 22 The [facility] Repository (20 sources) Codeine Drug Allergy 04-07-19 24 hives, Unknown [facility] Work Phone: (9 sources) Penicillin Drug Allergy [facility] [employer] Other (9 sources) Sulfamethoxazole / Trimethoprim Drug Allergy [facility] [employer] Other (20 sources) Sulfamethoxazole; Translations: [sulfamethoxazole] Drug Allergy 04-28-19 21 Swelling of Lip/Tongue/Thr oat, Swelling of Lip/Tongue/Thr oat, [facility] (20 sources) Trimethoprim; Translations: [trimethoprim] Drug Allergy 04-28-19 21 Swelling of Lip/Tongue/Thr oat, Swelling of Lip/Tongue/Thr oat, hives [facility] (20 sources) penicillAMINE Drug Allergy 04-07-19 Unknown [facility] (20 sources) Penicillin G Drug Allergy 04-12-19 [facility] Work Phone: (20 sources) Sulfamethoxazole / Trimethoprim Drug Allergy 04-12-19 [facility] (20 sources) Sulfonamides (Antibiotic) Drug Allergy 04-07-19 Unknown [facility] (20 sources) SUMAtriptan Drug Allergy 04-07-19 [facility] (1 source) Codeine Drug Allergy 06-30-19 [facility] Repository (1 source) Penicillins Drug allergy (disorder) 06-30-19 [facility] Repository (20 sources) Penicillins Drug Allergy 11-25-19 [facility] Medications Current Medications Medication Drug Class(es) Dates Sig (Normalized) Sig (Original) azithromycin 250 mg oral tablet (2 sources) Macrolide Antimicrobial Start: 07-19-2024 End: 07-24-2024 azithromycin (Zithromax) 250 MG tablet Indications: Upper respiratory tract infection, unspecified type Take 2 tablets on the first day, then 1 tablet daily for 4 days. 6 tablet 07/19/2024 07/24/2024 Active Blood Glucose Monitoring Suppl (D-Care Glucometer) w/Device kit (19 sources) Start: 08-28-2024 End: 08-28-2025 Blood Glucose Monitoring Suppl (D-Care Glucometer) w/Device kit Indications: Third trimester ([facility]) , Gestational diabetes mellitus (GDM), antepartum, gestational diabetes method of control unspecified ([facility]) , Elevated glucose tolerance test 1 [...] if symptoms are persisting for 2 days 13 Nov, 2022 Active isopropyl alcohol 0.7 ml/ml medicated pad (19 sources) Start: 08-28-2024 Alcohol Swabs (Alcohol Prep Pad) 70 % pads Indications: Third trimester ([facility]) , Gestational diabetes mellitus (GDM), antepartum, gestational diabetes method of control unspecified ([facility]) , Elevated glucose tolerance test Apply 1 Pad topically Daily Use four times daily to check FSBS. 150 each 3 08/28/2024 Active methylPREDNISolone 4 mg oral tablet (6 sources) Corticosteroid Start: 11-25-2023 take 1 tablet by mouth once Methylprednisolone (Medrol (Jose Ramon)) 4 mg tablets,dose pack Active 0 PO .COMPLEX November 25, 2023 12:00am orally per package directions ondansetron 4 mg oral tablet (20 sources) Serotonin-3 Receptor Antagonist Start: 09-13-2024 take 1 tablet by mouth every six hours as needed for nausea and nausea, then take 1 tablet by mouth every six hours as needed for nausea and nausea ondansetron (Zofran) 4 MG tablet Indications: Vomiting complicating ([facility]) Take 1 tablet (4 mg) by mouth every 6 (six) hours if needed for nausea or vomiting for up to 30 doses Take 1 tablet by mouth every 6 hours as needed for nausea. 30 tablet 2 09/13/2024 Active Start: 07-19-2024 End: 09-09-2024 take 1 tablet by mouth every six hours as needed for nausea and nausea, then take 1 tablet by mouth every six hours as needed for nausea and nausea ondansetron (Zofran) 4 MG tablet Indications: Vomiting complicating ([facility]) Take 1 tablet (4 mg) by mouth every 6 (six) hours if needed for nausea or vomiting for up to 30 doses Take 1 tablet by mouth every 6 hours as needed for nausea. 30 tablet 2 07/19/2024 Active Start: 07-06-2024 End: 10-11-2024 take 1 tablet by mouth every eight hours for nausea ondansetron ODT (Zofran-ODT) 4 MG disintegrating tablet Indications: Nausea and vomiting in ([facility]) Take 1 tablet (4 mg) by mouth every 8 (eight) hours if needed for nausea or vomiting 20 tablet 3 09/11/2024 Active Start: 06-21-2024 take 1 tablet by [...] polysaccharide iron complex 391 mg oral capsule (14 sources) Start: 08-28-2024 End: 09-27-2024 take 1 capsule by mouth once daily iron polysaccharides (ProFe) 391.3 (180 Fe) MG capsule Indications: Third trimester ([facility]) , Anemia affecting in third trimester ([facility]) Take 1 capsule (391.3 mg) by mouth Daily 30 capsule 6 08/28/2024 09/27/2024 Active valACYclovir 500 mg oral tablet (20 sources) Herpesvirus Nucleoside Analog DNA Polymerase Inhibitor, Herpes Simplex Virus Nucleoside Analog DNA Polymerase Inhibitor, Herpes Zoster Virus Nucleoside Analog DNA Polymerase Inhibitor Start: 07-27-2023 End: 10-25-2024 take 1 tablet by mouth in the morning valACYclovir (Valtrex) 500 MG tablet Indications: Recurrent cold sores Take 1 tablet (500 mg) by mouth in the morning and 1 tablet (500 mg) before bedtime. 60 tablet 2 09/25/2024 10/25/2024 Active Completed/Discontinued Medications Medication Drug Class(es) Dates [...] 09, 2017 1:00am June 05, 2017 1:56pm fluticasone propionate 0.05 mg/actuat metered dose nasal spray (20 sources) Corticosteroid Start: 06-16-2023 End: 09-25-2024 take 1-2 spray(s) nasal route once daily fluticasone (Flonase) 50 MCG/ACT nasal spray Indications: Strep pharyngitis Administer 1-2 sprays into each nostril Daily Shake gently. Before first use, prime pump. After use, clean tip and replace cap 16 g 3 06/16/2023 09/25/2024 Discontinued ibuprofen 600 mg oral tablet (7 sources) Nonsteroidal Anti-inflammatory Drug Start: 07-01-2019 End: 04-28-2020 take 1 tablet by mouth every six hours Ibuprofen 600 mg Tablet Discontinued 600 MG PO Every 6 hours 60 July 01, 2019 12:00am April 28, 2020 4:44pm metoclopramide 10 mg oral tablet (20 sources) Dopamine-2 Receptor Antagonist Start: 03-10-2024 End: 09-25-2024 metoclopramide (Reglan) 10 MG tablet Indications: Nausea and vomiting in ([facility]) Take 1 tablet (10 mg) by mouth in the morning and 1 tablet (10 mg) at noon and 1 tablet (10 mg) in the evening. Take before meals. Take 1 tablet by mouth 30 minutes prior to meals 3 times daily as needed for nausea.. 90 tablet 03/10/2024 09/25/2024 Discontinued metroNIDAZOLE 500 mg oral tablet (7 sources) Nitroimidazole Antimicrobial Start: 05-09-2017 End: 05-16-2017 take 1 tablet by mouth twice daily Metronidazole (Flagyl) 500 mg tablet Discontinued 500 MG PO Twice daily 14 May 09, 2017 1:00am May 15, 2017 1:00am May 16, 2017 1:07am Tn-Km-Okvg-Fa-Herba l Cmplx#190 (Vitamin D3 Complete) 18 mg iron-800 mcg-150 mg Tablet (7 sources) Start: 05-09-2017 End: 06-05-2017 Qx-Kw-Diql-Fa-Herb al Cmplx#190 (Vitamin D3 Complete) 18 mg iron-800 mcg-150 mg Tablet Discontinued TABLET May 09, 2017 12:00am June 05, 2017 12:56pm Start: 05-09-2017 End: 06-05-2017 Gn-Lr-Zohl-Fa-Herbal Cmplx#1 90 (Vitamin D3 Complete) 18 mg [...] full glass of water with each meal promethazine hydrochloride 12.5 mg oral tablet (20 sources) Phenothiazine Start: 06-21-2024 End: 12-12-2024 take 1 tablet by mouth every six hours for nausea promethazine (Phenergan) 12.5 MG tablet Indications: Nausea and vomiting in ([facility]) Take 1 tablet (12.5 mg) by mouth every 6 (six) hours if needed for nausea or vomiting 180 tablet 1 09/13/2024 09/25/2024 Discontinued Start: 03-08-2024 End: 06-06-2024 take 1 tablet [...] nausea. 30 tablet 2 03/08/2024 06/06/2024 Active zolpidem tartrate 10 mg oral tablet (5 sources) gamma-Aminobutyric Acid-ergic Agonist Start: 09-11-2024 End: 09-25-2024 zolpidem (Ambien) 10 MG tablet Indications: Third trimester ([facility]) , 34 weeks gestation of ([facility]) , Nausea and vomiting in ([facility]) , Insomnia, unspecified type Take 1 tablet (10 mg) by mouth as needed at bedtime for sleep (every other night) for up to 5 doses 5 tablet 09/11/2024 09/25/2024 Discontinued Problems Active Problems Problem Classification Problem Date [...] tolerance complicating ; childbirth; or the puerperium (4 sources) Gestational diabetes mellitus; Translations: [Gestational diabetes mellitus in , unspecified control] 08-28-2024 Episodic Esophageal disorders (20 sources) Gastroesophageal reflux disease; Translations: [Gastro-esophageal reflux [...] Translations: [Chronic fatigue, unspecified] Chronic Menstrual disorders (20 sources) Missed period; Translations: [Irregular menstruation, unspecified] Onset: 4 03-24-2024 Chronic Mood disorders (20 sources) Moderately severe depression; Translations: [Moderately severe depression] Onset: 4 04-07-2023 Chronic Open wounds of head; neck; and trunk (7 sources) Laceration - injury; Translations: [Laceration] 04-28-2020 Episodic Comment on above: Problem List clean-u p per request of Phys. EHR Cmte Other complications of (4 sources) Anemia in mother complicating , childbirth AND/OR puerperium; Translations: [Anemia complicating , third trimester] 08-28-2024 Chronic Other complications of (11 sources) Vomiting of , unspecified; Translations: [Unspecified vomiting of , unspecified as to episode of care or not applicable] Onset: 5 03-24-2024 Episodic Other complications of (2 sources) Vomiting of ; Translations: [Vomiting of , unspecified] 07-19-2024 Episodic Other congenital anomalies (20 sources) Birthmark; Translations: [Congenital non-neoplastic nevus] Onset: [...] [31 weeks gestation of ] 08-28-2024 Episodic Residual codes; unclassified (2 sources) Gestation period, 34 weeks; Translations: [34 weeks gestation of ] 09-11-2024 Episodic Residual codes; unclassified (2 sources) Gestation period, 35 weeks; Translations: [35 weeks gestation of ] 09-25-2024 Episodic Residual codes; unclassified (2 sources) Gestation period, 36 weeks; Translations: [36 weeks gestation of ] 10-04-2024 Episodic Spontaneous (7 sources) with abortive outcome; Translations: [Incomplete spontaneous without complication] 07-05-2018 Episodic Comment on above: Problem List clean-u p per request of Phys. EHR Cmte Substance-related disorders (1 source) Cannabis abuse; Translations: [Cannabis abuse, uncomplicated] 06-29-2024 Chronic Thyroid disorders (20 sources) Goiter; Translations: [Nontoxic goiter, unspecified] Onset: [...] request of Phys. EHR Cmte Viral infection (7 sources) Disease due to Rhinovirus; Translations: [Other viral infections of unspecified site] 04-05-2024 Episodic Past or Other Problems Problem Classification Problem Date Documented Da te Episodic/Chronic Nausea and vomiting (2 sources) Nausea and vomiting; Translations: [Nausea with vomiting, unspecified] Onset: 03-04-2024 06-29-2024 Episodic Other complications of (20 sources) Hyperemesis [...] Test Name Value Interpretation Reference Range Facility STREP GP B CULTURE+RFLXon STREP GP B CULTURE+RFLX Strep Gp B Culture+Rflx [facility] STREP GP B CULTURE+RFLX Negative [facility] STREP GP B CULTURE+RFLX Centers for Disease Control and Prevention (CDC) and [facility] STREP GP B CULTURE+RFLX [employer] [facility] STREP GP B CULTURE+RFLX (ACOG) guidelines for prevention of group B [facility] STREP GP B CULTURE+RFLX streptococcal (GBS) disease specify co-collection of [facility] STREP GP B CULTURE+RFLX a vaginal and rectal swab specimen to maximize [facility] STREP GP B CULTURE+RFLX sensitivity of GBS detection. Per the CDC and ACOG, [facility] STREP GP B CULTURE+RFLX swabbing both the lower vagina and rectum [facility] STREP GP B CULTURE+RFLX substantially increases the yield of detection [facility] STREP GP B CULTURE+RFLX compared with sampling the vagina alone. [facility] STREP GP B CULTURE+RFLX Penicillin G, ampicillin, or cefazolin are indicated [facility] STREP GP B CULTURE+RFLX for intrapartum prophylaxis of GBS [facility] STREP GP B CULTURE+RFLX colonization. Reflex susceptibility testing should be [facility] STREP GP B CULTURE+RFLX performed prior to use of clindamycin only on GBS [facility] STREP GP B CULTURE+RFLX isolates from penicillin-allergic women who are [facility] STREP GP B CULTURE+RFLX considered a high risk for anaphylaxis. Treatment with [facility] STREP GP B CULTURE+RFLX vancomycin without additional testing is warranted if [facility] STREP GP B CULTURE+RFLX resistance to clindamycin is noted. [facility] STREP GP B CULTURE+RFLX Performed at: [facility] STREP GP B CULTURE+RFLX [address] [place] [address] [id number] [facility] STREP GP B CULTURE+RFLX Button Inspector: José Barnes PhD, Phone: [phone] [facility] Urinalysis macro (dipstick) panel (U)on 10-04-2024 Bilirubin, UA Negative Negative - 4(70) +++ mg/dL [facility] Blood, UA Negative Negative - 50 Josiah/mcL [facility] Clarity, UA Clear [facility] Color, UA Yellow [facility] Glucose, UA Negative Negative - 2000(110) ++++ mg/dL [facility] Interpretation and review of laboratory results Abnormal [facility] Ketones, UA Positive Negative - 160(16) ++++ mg/dL [facility] Comment on above: Trace Leukocytes, UA Negative Negative - 500+++ Archana/mcL [facility] Nitrite, UA Negative Negative - Positive [facility] pH, UA 7 5 - 9 [facility] Protein, UA Trace Negative - 2000(20) ++++ mg/dL [facility] Spec Grav, UA 1.02 1 - 1.03 [facility] Urobilinogen, UA 0.2 0.2 - 12 mg/dL [facility] OB BPP W NON-STRESS on 10-03-2024 [place] [address] Ultrasound Report Signed Patient: NICOLE FRARIS MR#: [id number] : 1995 Acct:[id number] Age/Sex: 29 / F ADM Date: 10/03/24 Loc: [facility] 250-[address]: Corby Royal Ordering Physician: Corby Royal Date of Service: 10/03/24 Procedure(s): US OB BPP w non-stress Accession Number(s): [id number] cc: Corby Royal; Jimy HOLLIS [place] [address] Patient Name: NICOLE FARRIS MRN: [facility]:[id number] date: 1995 Sex: F Assigned Patient Location: [facility] Current Patient Location: [facility] Accession/Order Number: [id number] Exam Date: 10/03/2024 15:13 Report Date: 10/03/2024 15:13 At the request of: CORBY ROYAL Procedure: US OB BPP w non-stress Ultrasound biophysical profile HISTORY: Gestational diabetes Adequate breathing movement, gross body movement, tone and amniotic fluid volume for total score of 8 out of 8. The amniotic fluid index is 18.9cm within normal limits. The heart rate 135 bpm. US/US OB BPP w non-stress IMPRESSION: Adequate ultrasound biophysical profile Impression dictated by: Mikie Hurtado M.D. 10/03/2024 3:13 PM Dictation Location: [place] [address] Electronically authenticated by: [id number] Y Date: 10/03/2024 15:13 Dictated By: Mikie Hurtado D.O. Signed By: 10/03/24 1515 DD/ 151 TD/TT: House Designer: [facility] Radiology, Radiologi MD esau - 10/03/[address] [address] Ultrasound Report Signed Patient: NICOLE FARRIS MR#: [id number] : 1995 Acct:[id number] Age/Sex: 29 / F ADM Date: 10/03/24 Loc: [facility] 250-[address]: Corby Royal Ordering Physician: Corby Royal Date of Service: 10/03/24 Procedure(s): US OB BPP w non-stress Accession Number(s): [id number] cc: Corby Royal; Jimy HOLLIS The [place] [address] Patient Name: NICOLE FARRIS MRN: [id number] date: 1995 Sex: F Assigned Patient Location: [facility] Current Patient Location: [facility] Accession/Order Number: [id number] Exam Date: 10/03/2024 15:13 Report Date: 10/03/2024 15:13 At the request of: CORBY ROYAL Procedure: US OB BPP w non-stress Ultrasound biophysical profile HISTORY: Gestational diabetes Adequate breathing movement, gross body movement, tone and amniotic fluid volume for total score of 8 out of 8. The amniotic fluid index is 18.9cm within normal limits. The heart rate 135 bpm. US/US OB BPP w non-stress IMPRESSION: Adequate ultrasound biophysical profile Impression dictated by: Mikie Hurtado M.D. 10/03/2024 3:13 PM Dictation Location: [place] [address] Electronically authenticated by: [id number] Y Date: 10/03/2024 15:13 Dictated By: Mikie Hurtado D.O. Signed By: 10/03/241514 DD/ 12 TD/TT: House Designer: [facility] Rad[facility] Study observation (narrative) [facility] US OB BPP W NON-STRESS Ordered By: Radiologist Radiology on 10-03-2024 [facility] Work Phone: US OB BPP W NON-STRESS on 09-26-[address] [address] Ultrasound Report Signed Patient: NICOLE FARRIS MR#: [id number] : 1995 Acct:[id number] Age/Sex: 29 / F ADM Date: 09/26/24 Loc: US Attending Dr: Corby Royal Ordering Physician: Corby Royal Date of Service: 09/26/24 Procedure(s): US OB BPP w non-stress Accession Number(s): [id number] cc: Corby Royal; Jimy HOLLIS The [address] [address] Patient Name: NICOLE FARRIS MRN: [facility]:[id number] date: 1995 Sex: F Assigned Patient Location: [facility] Current Patient Location: LAB Accession/Order Number: [id number] Exam Date: 09/26/2024 15:49 Report Date: 09/26/2024 15:50 At the request of: CORBY ROYAL Procedure: US OB BPP w non-stress Ultrasound biophysical profile HISTORY: Gestational diabetes Adequate breathing movement, gross body movement, tone and amniotic fluid volume for total score of 8 out of 8. The amniotic fluid index is 24.1cm within normal limits. The heart rate 130 bpm. US/US OB BPP w non-stress IMPRESSION: Adequate ultrasound biophysical profile Impression dictated by: Mikie Hurtado M.D. 09/26/2024 3:50 PM Dictation Location: [place] [address] Electronically authenticated by: [id number] Y Date: 09/26/2024 15:50 Dictated By: Mikie Hurtado D.O. Signed By: 09/26/24 1552 DD/ 155 TD/TT: House Designer: Tory Patton MD - 09/26/2024 The [place] [id number] Ultrasound Report Signed Patient: NICOLE FARRIS MR#: [id number] : 1995 Acct:[id number] Age/Sex: 29 / F ADM Date: 09/26/24 Loc: US Attending Dr: Corby Royal Ordering Physician: Corby Royal Date of Service: 09/26/24 Procedure(s): US OB BPP w non-stress Accession Number(s): [id number] cc: Corby Royal; Jimy HOLLIS [place] [id number] Patient Name: NICOLE FARRIS MRN: [facility]:[id number] date: 1995 Sex: F Assigned Patient Location: [facility] Current Patient Location: LAB Accession/Order Number: [id number] Exam Date: 09/26/2024 15:49 Report Date: 09/26/2024 15:50 At the request of: CORBY ROYAL Procedure: US OB BPP w non-stress Ultrasound biophysical profile HISTORY: Gestational diabetes Adequate breathing movement, gross body movement, tone and amniotic fluid volume for total score of 8 out of 8. The amniotic fluid index is 24.1cm within normal limits. The heart rate 130 bpm. US/US OB BPP w non-stress IMPRESSION: Adequate ultrasound biophysical profile Impression dictated by: Mikie Hurtado M.D. 09/26/2024 3:50 PM Dictation Location: [place] [address] Electronically authenticated by: [id number] Y Date: 09/26/2024 15:50 Dictated By: Mikie Hurtado D.O. Signed By: 09/26/24 1552 DD/ 1550 TD/TT: House Designer: [facility] Rad[facility] Study observation (narrative) [facility] US OB BPP W NON-STRESS Ordered By: Radiologist Radiology on 09-26-2024 [facility] Work Phone: Urinalysis macro (dipstick) panel (U)on 09-25-2024 Bilirubin, UA Negative Negative - 4(70) +++ mg/dL [facility] Blood, UA Negative Negative - 50 Josiah/mcL [facility] Clarity, UA Clear [facility] Color, UA Felisha [facility] Glucose, UA Negative Negative - 1999(110) ++++ mg/dL [facility] Interpretation and review of laboratory results Abnormal [facility] Ketones, UA Positive Negative - 160(16) ++++ mg/dL [facility] Leukocytes, UA Negative Negative - 500+++ Archana/mcL [facility] Nitrite, UA Negative Negative - Positive [facility] pH, UA 7.5 5 - 9 [facility] Protein, UA Trace Negative - 1999(20) ++++ mg/dL [facility] Spec Grav, UA 1.01 1 - 1.03 [facility] Urobilinogen, UA 0.2 0.2 - 12 mg/dL [facility] US OB BPP W NON-STRESS on 09-19-2024 [place] [address] Ultrasound Report Signed Patient: NICOLE FARRIS MR#: [id number] : 1995 Acct:[id number] Age/Sex: 29 / F ADM Date: 09/19/24 Loc: [place] [address]- Attending Dr: Corby Royal Ordering Physician: Corby Royal Date of Service: 09/19/24 Procedure(s): US OB BPP w non-stress Accession Number(s): [id number] cc: Corby Royal; Jimy HOLLIS [place] [address] Patient Name: NICOLE FARRIS MRN: [facility]:[id number] date: 1995 Sex: F Assigned Patient Location: [facility] Current Patient Location: [facility] Accession/Order Number: [id number] Exam Date: 09/19/2024 14:22 Report Date: 09/19/2024 14:23 At the request of: CORBY ROYAL Procedure: US OB BPP w non-stress BPP. Reason for exam: Anemia affecting . COMPARISON: BPP 09/12/2024 TECHNIQUE: Transabdominal imaging of the gravid uterus was obtained. FINDINGS: Demand Manager reports a BPP of 8 out of 8. CINDY is normal 12.0cm. heart rate 155 bpm. US/US OB BPP w non-stress Impression: BPP out of 8. Impression dictated by: Davon Goncalves Jr., D.O. 09/19/2024 2:23 PM Dictation Location: [place] [place] [address] Electronically authenticated by: [id number] Y Date: 09/19/2024 14:23 Dictated By: Davon Goncalves M.D. Signed By: 09/19/241424 DD/ 22 TD/TT: House Designer: [facility] Radiology, Radiologi MD esau - 09/19/2024 [place] [address] Ultrasound Report Signed Patient: NICOLE FARRIS MR#: [id number] : 1995 Acct:[id number] Age/Sex: 29 / F ADM Date: 09/19/24 Loc: [place] [address]: Corby Royal Ordering Physician: Corby Royal Date of Service: 09/19/24 Procedure(s): US OB BPP w non-stress Accession Number(s): [id number] cc: Corby Royal; Jimy HOLLIS [place] [id number] Patient Name: NICOLE FARRIS MRN: [facility]:[id number] date: 1995 Sex: F Assigned Patient Location: [facility] Current Patient Location: [facility] Accession/Order Number: [id number] Exam Date: 09/19/2024 14:22 Report Date: 09/19/2024 14:23 At the request of: CORBY ROYAL Procedure: US OB BPP w non-stress BPP. Reason for exam: Anemia affecting . COMPARISON: BPP 09/12/2024 TECHNIQUE: Transabdominal imaging of the gravid uterus was obtained. FINDINGS: Demand Manager reports a BPP of 8 out of 8. CINDY is normal 12.0cm. heart rate 155 bpm. US/US OB BPP w non-stress Impression: BPP out of 8. Impression dictated by: Davon Goncalves Jr., D.O. 09/19/2024 2:23 PM Dictation Location: [place] [address] Electronically authenticated by: [id number] Y Date: 09/19/2024 14:23 Dictated By: Davon Goncalves M.D. Signed By: 09/19/241424 DD/ 22 TD/TT: House Designer: [facility] Rad[facility] Study observation (narrative) [facility] US OB BPP W NON-STRESS Ordered By: Radiologist Radiology on 09-19-2024 [facility] [employer] Work Phone: US OB BPP W NON-STRESS on 09-12-2024 [place] [address] Ultrasound Report Signed Patient: NICOLE FARRIS MR#: [id number] : 1995 Acct:[id number] Age/Sex: 29 / F ADM Date: 09/12/24 Loc: US Attending Dr: Corby Royal Ordering Physician: Corby Royal Date of Service: 09/12/24 Procedure(s): US OB BPP w non-stress Accession Number(s): [id number] cc: Corby Royal; Jimy HOLLIS [place] [id number] Patient Name: NICOLE FARRIS MRN: [facility]:[id number] date: 1995 Sex: F Assigned Patient Location: [facility] Current Patient Location: Accession/Order Number: [id number] Exam Date: 09/12/2024 14:59 Report Date: 09/12/2024 15:12 At the request of: CORBY ROYAL Procedure: US OB BPP w non-stress BPP. Reason for exam: Anemia affecting . COMPARISON: BDP 09/07/2024. TECHNIQUE: Transabdominal imaging of the gravid uterus was obtained. FINDINGS: Demand Manager reports a BPP of 8 out of 8. CINDY is normal 16.4 cm. heart rate 165 bpm. US/US OB BPP w non-stress Impression: BPP out of 8. Impression dictated by: Davon Goncalves Jr., D.O. 09/12/2024 3:12 PM Dictation Location: [place] [address] Electronically authenticated by: [id number] Y Date: 09/12/2024 15:12 Dictated By: Davon Goncalves M.D. Signed By: 09/12/24 1514 DD/ 1512 TD/TT: House Designer: [facility] Radiology, Radiologparth cifuentes MD - 09/12/2024 [place] [address] Ultrasound Report Signed Patient: NICOLE FARRIS MR#: [id number] : 1995 Acct:[id number] Age/Sex: 29 / F ADM Date: 09/12/24 Loc: US Attending Dr: Corby Royal Ordering Physician: Corby Royal Date of Service: 09/12/24 Procedure(s): US OB BPP w non-stress Accession Number(s): [id number] cc: Corby Royal; Jimy HOLLIS [place] [phone] Patient Name: NICOLE FARRIS MRN: [facility]:[id number] date: 1995 Sex: F Assigned Patient Location: [facility] Current Patient Location: Accession/Order Number: [id number] Exam Date: 09/12/2024 14:59 Report Date: 09/12/2024 15:12 At the request of: CORBY ROYAL Procedure: US OB BPP w non-stress BPP. Reason for exam: Anemia affecting . COMPARISON: BDP 09/07/2024. TECHNIQUE: Transabdominal imaging of the gravid uterus was obtained. FINDINGS: Demand Manager reports a BPP of 8 out of 8. CINDY is normal 16.4 cm. heart rate 165 bpm. US/US OB BPP w non-stress Impression: BPP out of 8. Impression dictated by: Davon Goncalves Jr., D.O. 09/12/2024 3:12 PM Dictation Location: [place] [address] Electronically authenticated by: [id number] Y Date: 09/12/2024 15:12 Dictated By: Davon Goncalves M.D. Signed By: 09/12/24 1514 DD/ 11 TD/TT: House Designer: [facility] Rad[facility] Study observation (narrative) [facility] US OB BPP W NON-STRESS Ordered By: Radiologist Radiology on 09-12-2024 [facility] Work Phone: Urinalysis macro (dipstick) panel (U)on 09-11-2024 Bilirubin, UA Moderate Negative - 4(70) +++ mg/dL [facility] Blood, UA Negative Negative - 50 Josiah/mcL [facility] Clarity, UA Clear [facility] Color, UA [place] [facility] Glucose, UA Negative Negative - 2000(110) ++++ mg/dL [facility] Interpretation and review of laboratory results Abnormal [facility] Ketones, UA Positive Negative - 160(16) ++++ mg/dL [facility] Leukocytes, UA Positive Negative - 500+++ Archana/mcL [facility] Nitrite, UA Negative Negative - Positive [facility] pH, UA 6 5 - 9 [facility] Protein, UA Positive Negative - 2000(20) ++++ mg/dL [facility] Spec Grav, UA 1.025 1 - 1.03 [facility] Urobilinogen, UA 1.0 0.2 - 12 mg/dL [facility] ALL CBC WITH AUTO DIFFon BASOPHILS ABSOLUTE AUTO 0 [facility] Basophils/100 WBC (Bld) 0.3 % 0.2 - 2.0 % [facility] Eosinophils/100 WBC (Bld) 0.2 % Low 0.9 - 7.0 % [facility] Erythrocyte distribution width (RBC) [Ratio] 15.5 % High 11.0 - 15.0 % [facility] Hematocrit (Bld) [Volume fraction] 26.5 % Low 36.0 - 48.0 % [facility] Hemoglobin (Bld) [Mass/Vol] 8.1 g/dL Low 12.0 - 16.0 g/dL [facility] IMMATURE GRANULOCYTES ABS AUTO 0.16 High [facility] Immature granulocytes/100 WBC (Bld) 1.8 % High 0.0 - 0.5 % [facility] Interpretation and review of laboratory results Abnormal [facility] LYMPHOCYTES ABSOLUTE AUTO 1.2 [facility] Lymphocytes/100 WBC (Bld) 13.5 % Low 20.5 - 60.0 % [facility] MCH (RBC) [Entitic mass] 24.3 pg Low 26.7 - 34.0 pg [facility] MCHC (RBC) [Mass/Vol] 30.6 g/dL 29.9 - 35.2 g/dL [facility] MCV (RBC) [Entitic vol] 79.3 fL Low 81.0 - 99.0 fL [facility] MONOCYTES ABSOLUTE AUTO 0.6 [facility] Monocytes/100 WBC (Bld) 6.8 % 1.7 - 12.0 % [facility] NEUTROPHILS ABSOLUTE AUTO 7 High [facility] Neutrophils/100 WBC (Bld) 77.4 % High 43.0 - 75.0 % [facility] Platelet mean volume (Bld) [Entitic vol] 11.8 fL 9.5 - 13.5 fL [facility] EO # 0 [facility] TB PLT 204 [facility] RBC 3.34 Low [facility] WBC 9 [facility] DRUG SCREEN RAPID (URINE )on 09-09-2024 AMPHETAMINE SCREEN URINE Negative NEGATIVE [facility] BARBITURATES SCREEN URINE Negative NEGATIVE [facility] BENZODIAZEPINES SCREEN URINE Negative NEGATIVE [facility] BUPRENORPHINE SCREEN URINE Negative NEGATIVE [facility] Comment on above: DRUG CLASS TEST SYST EM CUT-OFF CONCENTRATIONS ARE FOLLOWS: AMP (Amphetamine): 500 ng/mL BAR (Barbiturates): 200 ng/mL BZO (Benzodiazepines): 150 ng/mL BUP (Buprenorphine): 10 ng/mL LAWANDA (Cocaine): 150 ng/mL mAMP (Methamphetamine): 500 ng/mL MTD (Methadone): 200 ng/mL OPI (Opiates): 100 ng/mL OXY (Oxycodone): 100 ng/mL PCP (Phencyclidine): 25 ng/mL THC (Cannabinoids): 50 ng/mL TCA (Trycyclic Antidepressants): 300 ng/mL CANNABINOID SCREEN URINE Positive Abnormal NEGATIVE [facility] COCAINE SCREEN URINE Negative NEGATIVE [facility] Healthcare Interpretation and review of laboratory results Abnormal [facility] METHADONE SCREEN URINE Negative NEGATIVE [facility] METHAMPHETAMINES SCREEN URINE Negative NEGATIVE [facility] OPIATE SCREEN URINE Negative NEGATIVE [facility] OXYCODONE SCREEN URINE Negative NEGATIVE [facility] PHENCYCLIDINE SCREEN URINE Negative NEGATIVE [facility] TRICYCLIC ANTIDEPRESSANT URINE Negative NEGATIVE [facility] Healthcare OB BPP W NON-STRESS on 09-08-2024 [place] [address] Ultrasound Report Signed Patient: NICOLE FARRIS MR#: [id number] : 1995 Acct:[id number] Age/Sex: 29 / F ADM Date: Loc: [facility] 250-[address]: Jaguar Quintero D.O. Ordering Physician: Jaguar Quintero D.O. Date of Service: 09/07/24 Procedure(s): US OB BPP w non-stress Accession Number(s): [id number] cc: Jaguar Quintero D.O.; Jimy HOLLIS [place] [address] Patient Name: NICOLE FARRIS MRN: [facility]:[id number] date: 1995 Sex: F Assigned Patient Location: [facility] Current Patient Location: [facility] Accession/Order Number: [id number] Exam Date: 09/08/2024 08:20 Report Date: 09/08/2024 [...] Barbosa M.D. 09/08/2024 8:22 AM Dictation Location: [place] [address] Electronically authenticated by: [id number] Y Date: 09/08/2024 08:22 Dictated By: Priscila Barbosa M.D. Signed By: 09/08/24823 DD/ 1 TD/TT: House Designer: [facility] Radiology, Radiologi MD esau - 09/08/2024 [place] [address] Ultrasound Report Signed Patient: NICOLE FARRIS MR#: [id number] : 1995 Acct:[id number] Age/Sex: 29 / F ADM Date: Loc: [facility] 250- Attending Dr: Jaguar Quintero D.O. Ordering Physician: Jaguar Quintero D.O. Date of Service: 09/07/24 Procedure(s): US OB BPP w non-stress Accession Number(s): [id number] cc: Jaguar Quintero D.O.; Jimy HOLLIS [place] [address] Patient Name: NICOLE FARRIS MRN: [facility]:[id number] date: 1995 Sex: F Assigned Patient Location: [facility] Current Patient Location: [facility] Accession/Order Number: [id number] Exam Date: 09/08/2024 08:20 Report Date: 09/08/2024 [...] Barbosa M.D. 09/08/2024 8:22 AM Dictation Location: [place] [address] Electronically authenticated by: [id number] Y Date: 09/08/2024 08:22 Dictated By: Priscila Barbosa M.D. Signed By: 09/08/24823 DD/ 1 TD/TT: House Designer: [facility] Radiology Study observation (narrative) [facility] OB BPP W NON-STRESS Ordered By: Radiologist Radiology on 09-08-2024 [facility] Work Phone: OB GROWTHon 09-06-2024 [place] [address] Ultrasound Report Signed Patient: NICOLE FARRIS MR#: [id number] : 1995 Acct:[id number] Age/Sex: 29 / F ADM Date: 09/05/24 Loc: US Attending Dr: Corby Royal Ordering Physician: Corby Royal Date of Service: 09/05/24 Procedure(s): US OB growth Accession Number(s): [id number] cc: Corby Royal; Jimy HOLLIS [address] [address] Patient Name: NICOLE FARRIS MRN: [facility]:[id number] date: 1995 Sex: F Assigned Patient Location: [facility] Current Patient Location: [facility] Accession/Order Number: [id number] Exam Date: 09/06/2024 07:48 Report Date: 09/06/2024 [...] Hurtado M.D. 09/06/2024 7:50 AM Dictation Location: [place] [address] Electronically authenticated by: [id number] Y Date: 09/06/2024 07:50 Dictated By: Mikie Hurtado D.O. Signed By: 09/06/24 0753 DD/ 0750 TD/TT: House Designer: [facility] Radiology, Radiologi MD esau - 09/06/2024 [place] [address] Ultrasound Report Signed Patient: NICOLE FARRIS MR#: [id number] : 1995 Acct:[id number] Age/Sex: 29 / F ADM Date: 09/05/24 Loc: US Attending Dr: Corby Royal Ordering Physician: Corby Royal Date of Service: 09/05/24 Procedure(s): US OB growth Accession Number(s): [id number] cc: Corby Royal; Jimy HOLLIS [address] [address] Patient Name: NICOLE FARRIS MRN: [facility]:[id number] date: 1995 Sex: F Assigned Patient Location: [facility] Current Patient Location: [facility] Accession/Order Number: [id number] Exam Date: 09/06/2024 07:48 Report Date: 09/06/2024 [...] Hurtado M.D. 09/06/2024 7:50 AM Dictation Location: [employer] Electronically authenticated by: [id number] Y Date: 09/06/2024 07:50 Dictated By: Mikie Hurtado D.O. Signed By: 09/06/24 0753 DD/ 0750 TD/TT: House Designer: [facility] Radiology Study observation (narrative) [facility] US OB GROWTHOrdered By: Chidi bland Radiology on 09-06-2024 [facility] Work Phone: Urinalysis macro (dipstick) panel (U)on 08-28-2024 Bilirubin, UA Negative Negative - 4(70) +++ mg/dL [facility] Blood, UA Negative Negative - 50 Josiah/mcL [facility] Clarity, UA Clear [facility] Color, UA Fel[place] [facility] Glucose, UA Negative Negative - 2000(110) ++++ mg/dL [facility] Interpretation and review of laboratory results Abnormal [facility] Ketones, UA Positive Negative - 160(16) ++++ mg/dL [facility] Comment on above: 15 Leukocytes, UA Positive Negative - 500+++ Archana/mcL [facility] Comment on above: small Nitrite, UA Negative Negative - Positive [facility] pH, UA 6.5 5 - 9 [facility] Protein, UA Trace Negative - 2000(20) ++++ mg/dL [facility] Spec Grav, UA 1.025 1 - 1.03 [facility] Urobilinogen, UA 1.0 0.2 - 12 mg/dL [facility] US OB LIMITED 1+ FETUSESon 0 07-19-2024 [...] II, MD, PHD at 23-Jul-2024 08:53:16 PM [facility] Normal Not Available Comment on above: Order Comment: US OB PLACENTA W US OB TRANSVAGINAL Estimated Date of Delivery: 10/27/24 Gestational Age as of 06/21/2024: 21w5d Urinalysis macro (dipstick) panel (U)on 07-19-2024 Bilirubin, UA Negative Negative - 4(70) +++ mg/dL [facility] Blood, UA Negative Negative - 50 Josiah/mcL [facility] Clarity, UA Clear [facility] Color, UA Yellow [facility] Glucose, UA Negative Negative - 1999(110) ++++ mg/dL [facility] Interpretation and review of laboratory results Abnormal [facility] Ketones, UA Negative Negative - 160(16) ++++ mg/dL [facility] Leukocytes, UA Trace Negative - 500+++ Archana/mcL [facility] Nitrite, UA Negative Negative - Positive [facility] pH, UA 7 5 - 9 [facility] Protein, UA Negative Negative - 2000(20) ++++ mg/dL [facility] Spec Grav, UA 1.02 1 - 1.03 [facility] Urobilinogen, UA 0.2 0.2 - 12 mg/dL [facility] Alanine aminotransferase [En zymatic activity/volume] in Serum or PlasmaOrdered By: Parminder Serrano on 06-29-2024 ALT [Catalytic activity/Vol] Alanine aminotransferase [Enzymatic activity/volume] in Serum or Plasma 7-52 [facility] Albumin [Mass/volume] in Ser um or Plasma by Bromocresol green (BCG) dye binding methoOrdered By: Parminder Serrano on 06-29-2024 Albumin BCG dye [Mass/Vol] Albumin [Mass/volume] in Serum or Plasma by Bromocresol green (BCG) dye binding metho 3.5-5.7 [facility] Alkaline phosphatase [Enzyma tic activity/volume] in Serum or PlasmaOrdered By: Parminder Serrano on 06-29-2024 ALP [Catalytic activity/Vol] Alkaline phosphatase [Enzymatic activity/volume] in Serum or Plasma 34-104 [facility] Amphetamine Screen Ql (U)Ord ered By: Parminder Serrano on 06-29-2024 Amphetamines Ql (U) Amphetamines screen Negativ e [facility] Appearance of UrineOrdered B y: Parminder Serrano on 06-29-2024 Appearance (U) Urine appearance Abnormal Clear [facility] Aspartate aminotransferase [ Enzymatic activity/volume] in Serum or PlasmaOrdered By: Parminder Serrano on 06-29-2024 AST [Catalytic activity/Vol] Aspartate aminotransferase [Enzymatic activity/volume] in Serum or Plasma Low 13-39 [facility] Bacteria [Presence] in Urine by AutomatedOrdered By: Parminder Serrano on 06-29-2024 Bacteria Auto Ql (U) Bacteria [Presence] in Urine by Automated None Seen [facility] Barbiturates [Presence] in U rine by Screen methodOrdered By: Parminder Serrano on 06-29-2024 Barbiturates Screen Ql (U) Barbiturates [Presence] in Urine by Screen method Negative [facility] Basophils Auto (Bld) [#/Vol] Ordered By: Parminder Serrano 06-29-2024 Basophils (Bld) [#/Vol] Automated basophil count 0.0-0.2 [facility] Basophils/100 WBC Auto (Bld) Ordered By: Parminder Serrano on 06-29-2024 Basophils/100 WBC (Bld) Automated basophil % . [facility] Benzodiazepines Screen Ql (U )Ordered By: Parminder Serrano on 06-29-2024 Benzodiazepines Ql (U) Benzodiazepines [Presence] in Urine by Screen method Negative [facility] Benzoylecgonine [Presence] i n Urine by Screen methodOrdered By: Parminder Serrano on 06-29-2024 Benzoylecgonine Screen Ql (U) Benzoylecgonine [Presence] in Urine by Screen method Negative [facility] Bilirubin Test strip Ql (U)O rdered By: Parminder Serrano on 06-29-2024 Bilirubin Ql (U) Bilirubin.total [Pre sence] in Urine by Test strip Negative [facility] Bilirubin.total [Mass/volume ] in Serum or PlasmaOrdered By: Parminder Serrano on 06-29-2024 Bilirubin [Mass/Vol] Bilirubin.total [Mass/volume] in Serum or Plasma 0.3-1.0 [facility] Calcium [Mass/volume] in Ser um or PlasmaOrdered By: Parminder Serrano on 06-29-2024 Calcium [Mass/Vol] Calcium [Mass/volume ] in Serum or Plasma 8.6-10.3 [facility] Cannabinoids [Presence] in U rine by Screen methodOrdered By: Parminder Serrano on 06-29-2024 Cannabinoids Screen Ql (U) Cannabinoids [Presence] in Urine by Screen method High Negative [facility] Comment on above: These are unconfirme d [...] [Moles/volume] in Serum or Plasma Low 21.0-31.0 [facility] Chloride [Moles/volume] in S mayte or PlasmaOrdered By: Parminder Serrano on 06-29-2024 Chloride [Moles/Vol] Chloride [Moles/vol ume] in Serum or Plasma 98-107 [facility] Color Auto (U)Ordered By: Eduar Serrano on 06-29-2024 Color (U) Color of Urine by Auto Yellow [facility] Complete Blood Count Auto Di ffon 06-29-2024 Basophils (Bld) [#/Vol] 0.0 10*3/uL Normal 0.0-0.2 [facility] Comment on above: Result Comment: PERF ORMED BY: [place] [address] PATHOLOGIST PROCESSING SPECIALIST SARAH ANDREWS M.D. Performed By: #### H EPATIC, CBC, BMP, LIPASE #### [address] Basophils/100 WBC (Bld) 0.3 % Normal . [facility] Comment on above: Performed By: #### H EPATIC, CBC, BMP, LIPASE #### [address] Eosinophils (Bld) [#/Vol] 0.0 10*3/uL Normal 0.0-0.45 [facility] Comment on above: Performed By: #### H EPATIC, CBC, BMP, LIPASE #### [address] Eosinophils/100 WBC (Bld) 0.0 % Normal . [facility] Comment on above: Performed By: #### H EPATIC, CBC, BMP, LIPASE #### [address] Erythrocyte distribution width (RBC) [Ratio] 14.2 % Normal 11.9-15.3 [facility] Comment on above: Performed By: #### H EPATIC, CBC, BMP, LIPASE #### [address] Hematocrit (Bld) [Volume fraction] 31.2 % Low 34.0-46.4 [facility] Comment on above: Performed By: #### H EPATIC, CBC, BMP, LIPASE #### [address] Hemoglobin (Bld) [Mass/Vol] 10.3 g/dL Low 11.8-15.4 [facility] Comment on above: Performed By: #### H EPATIC, CBC, BMP, LIPASE #### [address] Lymphocytes (Bld) [#/Vol] 0.7 10*3/uL Low 1.00-4.8 [facility] Comment on above: Performed By: #### H EPATIC, CBC, BMP, LIPASE #### [address] Lymphocytes/100 WBC (Bld) 6.0 % Normal . [facility] Comment on above: Performed By: #### H EPATIC, CBC, BMP, LIPASE #### [address] MCH (RBC) [Entitic mass] 27.9 pg Normal 24.7-34.3 [facility] Comment on above: Performed By: #### H EPATIC, CBC, BMP, LIPASE #### [address] MCV (RBC) [Entitic vol] 84.8 fL Normal 80-100 [facility] Comment on above: Performed By: #### H EPATIC, CBC, BMP, LIPASE #### [address] Mean Corpuscular HGB Conc 32.9 g/dL Normal 32.0-35.0 [facility] Comment on above: Performed By: #### H EPATIC, CBC, BMP, LIPASE #### [address] Monocytes (Bld) [#/Vol] 0.2 10*3/uL Normal 0.0-0.8 [facility] Comment on above: Performed By: #### H EPATIC, CBC, BMP, LIPASE #### [address] Monocytes/100 WBC (Bld) 20.01 % High 0.00-20.00 [facility] Comment on above: Result Comment: For adults in ED, MDW > 20.0 may be associated with a higher risk of sepsis during the first 12 hrs of hospital admission Performed By: #### H EPATIC, CBC, BMP, LIPASE #### [address] Monocytes/100 WBC (Bld) 1.9 % Normal . [facility] Comment on above: Performed By: #### H EPATIC, CBC, BMP, LIPASE #### [address] Neutrophils (Bld) [#/Vol] 10.5 10*3/uL High 1.8-7.7 [facility] Comment on above: Performed By: #### H EPATIC, CBC, BMP, LIPASE #### [address] Neutrophils/100 WBC (Bld) 91.8 % Normal . [facility] Comment on above: Performed By: #### H EPATIC, CBC, BMP, LIPASE #### [address] NRBC% 0.1 /100{WBC} Normal 0-0.5 [facility] Comment on above: Performed By: #### H EPATIC, CBC, BMP, LIPASE #### [address] Platelet mean volume (Bld) [Entitic vol] 11.0 fL High 6.3-10.[address] [facility] Comment on above: Performed By: #### H EPATIC, CBC, BMP, LIPASE #### [place] [address] [place] Platelets (Bld) [#/Vol] 206 10*3/uL Normal 150-450 [facility] Comment on above: Performed By: #### H EPATIC, CBC, BMP, LIPASE #### [place] [address] [place] RBC (Bld) [#/Vol] 3.69 10*6/uL Normal 3.60-5.00 [facility] Comment on above: Performed By: #### H EPATIC, CBC, BMP, LIPASE #### [place] [address] [place] WBC (Bld) [#/Vol] 11.4 10*3/uL Normal 3.8-11.6 [facility] Comment on above: Performed By: #### H EPATIC, CBC, BMP, LIPASE #### [address] Comprehensive Metabolic Pane blanquita 06-29-2024 Albumin [Mass/Vol] 3.8 g/dL Normal 3.5-5.7 [facility] Comment on above: Performed By: #### H EPATIC, CBC, BMP, LIPASE #### [address] Albumin/Globulin [Mass ratio] 1.0 {ratio} Normal [facility] Comment on above: Performed By: #### H EPATIC, CBC, BMP, LIPASE #### [address] ALP [Catalytic activity/Vol] 53 U/L Normal 34-104 [facility] Comment on above: Performed By: #### H EPATIC, CBC, BMP, LIPASE #### [address] ALT [Catalytic activity/Vol] 7 U/L Normal 7-52 [facility] Comment on above: Performed By: #### H EPATIC, CBC, BMP, LIPASE #### [address] Anion gap [Moles/Vol] Not performed Normal 6.0-15.0 [facility] Comment on above: Performed By: #### H EPATIC, CBC, BMP, LIPASE #### [address] Aspartate Amino Transferase Normal 13-39 [facility] Comment on above: Result Comment: Spec imen hemolyzed, redraw requested Performed By: #### H EPATIC, CBC, BMP, LIPASE #### [address] Bilirubin [Mass/Vol] 0.5 mg/dL Normal 0.3-1.0 [facility] Comment on above: Performed By: #### H EPATIC, CBC, BMP, LIPASE #### [address] Calcium [Mass/Vol] 9.5 mg/dL Normal 8.6-10.3 [facility] Comment on above: Performed By: #### H EPATIC, CBC, BMP, LIPASE #### [address] Chloride [Moles/Vol] 106 mmol/L Normal 98-107 [facility] Comment on above: Performed By: #### H EPATIC, CBC, BMP, LIPASE #### [address] CO2 [Moles/Vol] 19.4 mmol/L Low 21.0-31.0 [facility] Comment on above: Performed By: #### H EPATIC, CBC, BMP, LIPASE #### [address] Creatinine [Mass/Vol] 0.44 mg/dL Low 0.60-1.20 [facility] Comment on above: Performed By: #### H EPATIC, CBC, BMP, LIPASE #### [address] Creatinine Clr Calc Pharmacy 173.12 Normal [facility] Comment on above: Performed By: #### H EPATIC, CBC, BMP, LIPASE #### [address] GFR/1.73 sq M.predicted MDRD (S/P/Bld) [Vol rate/Area] mL/min/{1.73_m2} Normal [facility] Comment on above: Performed By: #### H EPATIC, CBC, BMP, LIPASE #### [address] Globulin (S) [Mass/Vol] 3.7 g/dL Normal [facility] Comment on above: Performed By: #### H EPATIC, CBC, BMP, LIPASE #### [address] Glucose [Mass/Vol] 130 mg/dL High 70-100 [facility] Comment on above: Result Comment: [place] Glucose Reference Range is dependent on time and content of last meal. Glucose of more than 200 mg/dL in a nonstressed, ambulatory subject supports the diagnosis of Diabetes Mellitus. ADA recommended reference range Performed By: #### H EPATIC, CBC, BMP, LIPASE #### [facility] [address] Potassium Normal 3.5-5.1 [facility] Comment on above: Result Comment: Spec imen hemolyzed, redraw requested Performed By: #### H EPATIC, CBC, BMP, LIPASE #### [facility] [address] Protein [Mass/Vol] 7.5 g/dL Normal 6.4-8.9 [facility] Comment on above: Performed By: #### H EPATIC, CBC, BMP, LIPASE #### [address] Sodium [Moles/Vol] 138 mmol/L Normal 136-145 [facility] Comment on above: Performed By: #### H EPATIC, CBC, BMP, LIPASE #### [address] Urea nitrogen [Mass/Vol] 8 mg/dL Normal 7-25 [facility] Comment on above: Performed By: #### H EPATIC, CBC, BMP, LIPASE #### [address] Creatinine [Mass/volume] in Serum or PlasmaOrdered By: Parminder Serrano on 06-29-2024 Creatinine [Mass/Vol] Creatinine [Mass/v olume] in Serum or Plasma Low 0.60-1.20 [facility] Crystals [Presence] in Urine by AutomatedOrdered By: Parminder Serrano on 06-29-2024 Crystals Auto Ql (U) Crystals [Presence] in Urine by Automated [facility] Dipstick and Microscopicon 0 06-29-2024 Appearance (U) Cloudy Critically abnormal Clear [facility] Comment on above: Order Comment: Name Collection Type:: Clean-Voided Midstream Performed By: #### A DDONUAPLUS, URDS, CUU #### [place] [address] [place] Bacteria,Urine Rare Normal None Seen [facility] Comment on above: Order Comment: Name Collection Type:: Clean-Voided Midstream Performed By: #### A DDONUAPLUS, URDS, CUU #### [place] [address] [place] Bilirubin,Urine Negative Normal Negative [facility] Comment on above: Order Comment: Name Collection Type:: Clean-Voided Midstream Performed By: #### A DDONUAPLUS, URDS, CUU #### [address] Color (U) Light-Yellow Normal Yellow [facility] Comment on above: Order Comment: Name Collection Type:: Clean-Voided Midstream Performed By: #### A DDONUAPLUS, URDS, CUU #### [address] Glucose Ql (U) 50 mg/dL High Normal [facility] Comment on above: Order Comment: Name Collection Type:: Clean-Voided Midstream Performed By: #### A DDONUAPLUS, URDS, CUU #### [address] Hyaline Casts,Urine None Normal 0-8 [facility] Comment on above: Order Comment: Name Collection Type:: Clean-Voided Midstream Performed By: #### A DDONUAPLUS, URDS, CUU #### [place] [address] [place] Ketones Ql (U) 4+ High Negative [facility] Comment on above: Order Comment: Name Collection Type:: Clean-Voided Midstream Performed By: #### A DDONUAPLUS, URDS, CUU #### [address] Leukocyte esterase Test strip Ql (U) 3+ High Negative [facility] Comment on above: Order Comment: Name Collection Type:: Clean-Voided Midstream Performed By: #### A DDONUAPLUS, URDS, CUU #### [place] [address] [place] Mucus,Urine Rare Normal [facility] Comment on above: Order Comment: Name Collection Type:: Clean-Voided Midstream Result Comment: PERF ORMED BY: [place] [address] PATHOLOGIST PROCESSING SPECIALIST SARAH ANDREWS M.D. Performed By: #### A DDONUAPLUS, URDS, CUU #### [place] [address] [place] Nitrite,Urine Negative Normal Negative [facility] Comment on above: Order Comment: Name Collection Type:: Clean-Voided Midstream Performed By: #### A DDONUAPLUS, URDS, CUU #### [place] [address] [place] Occult Blood,Urine Negative Normal Negative [facility] Comment on above: Order Comment: Name Collection Type:: Clean-Voided Midstream Result Comment: PERF ORMED BY: [place] [address] PATHOLOGIST PROCESSING SPECIALIST SARAH ANDREWS M.D. Performed By: #### A DDONUAPLUS, URDS, CUU #### [place] [address] [place] Othe Crystals,Urine 2+ Normal [facility] Comment on above: Order Comment: Name Collection Type:: Clean-Voided Midstream Performed By: #### A DDONUAPLUS, URDS, CUU #### [place] [address] [place] pH (U) 8.5 [pH] Normal 5.0-9.0 [facility] Comment on above: Order Comment: Name Collection Type:: Clean-Voided Midstream Performed By: #### A DDONUAPLUS, URDS, CUU #### [place] [address] [place] Protein (U) [Mass/Vol] 30 mg/dL High Negative [facility] Comment on above: Order Comment: Name Collection Type:: Clean-Voided Midstream Performed By: #### A DDONUAPLUS, URDS, CUU #### [address] RBC,Urine 3-4 Normal 0-4 [facility] Comment on above: Order Comment: Name Collection Type:: Clean-Voided Midstream Performed By: #### A DDONUAPLUS, URDS, CUU #### [address] Specificy [place],Urine 1.019 Normal 1.001-1.03 0 [facility] Comment on above: Order Comment: Name Collection Type:: Clean-Voided Midstream Performed By: #### A DDONUAPLUS, URDS, CUU #### [address] Squamous Epithelial Cell,Urine 5-9 High 0-2 [facility] Comment on above: Order Comment: Name Collection Type:: Clean-Voided Midstream Performed By: #### A DDONUAPLUS, URDS, CUU #### [address] Urobilinogen,Urine Normal Normal Normal [facility] Comment on above: Order Comment: Name Collection Type:: Clean-Voided Midstream Performed By: #### A DDONUAPLUS, URDS, CUU #### [place] [address] [place] WBC,Urine 10-19 High 0-4 [facility] Comment on above: Order Comment: Name Collection Type:: Clean-Voided Midstream Performed By: #### A DDONUAPLUS, URDS, CUU #### [place] [address] [place] Drug Screen,Urineon 06-30-19 25 Amphetamine Screen,Urine Negative Normal Negative [facility] Comment on above: Performed By: #### A DDONUAPLUS, URDS, CUU #### [address] [place] [address] [place] Barbiturate Screen,Urine Negative Normal Negative [facility] Comment on above: Performed By: #### A DDONUAPLUS, URDS, CUU #### [address] Benzodiazepines Screen,Urine Negative Normal Negative [facility] Comment on above: Performed By: #### A DDONUAPLUS, URDS, CUU #### [address] Cannabinoid Screen,Urine Positive High Negative [facility] Comment on above: Result Comment: Thes e are unconfirmed results and should not be used for legal purposes. Drug Cut-Off Concentration: AMPH 1000 ng/mL DENIS 200 ng/mL DIOR 200 ng/mL COCM 300 ng/mL OP 300 ng/mL PCP 25 ng/mL THC 20 ng/mL PERFORMED BY: [place] [address] PATHOLOGIST PROCESSING SPECIALIST SARAH ANDREWS M.D. Performed By: #### A DDONUAPLUS, URDS, CUU #### [place] [address] [place] Cocaine Screen,Urine Negative Normal Negative [facility] Comment on above: Performed By: #### A DDONUAPLUS, URDS, CUU #### [place] [address] [place] Opiate Screen,Urine Negative Normal Negative [facility] Comment on above: Performed By: #### A DDONUAPLUS, URDS, CUU #### [place] [address] [place] Phencyclidine Screen,Urine Negative Normal Negative [facility] Comment on above: Performed By: #### A DDONUAPLUS, URDS, CUU #### [address] ECG 12 lead ECGon 06-29-2024 ECG 12 lead ECG [facility] [place] [address] [place] [address] Electrocardiograph Report Signed Patient: Nicole Farris MR#: [id number] : 1995 Acct:[id number] Age/Sex: 28 / F ADM Date: 06/29/24 Loc: ER Room: Type: [facility] ER Attending Dr: Ordering Provider: Parminder [...] ECGs available Confirmed by SALUD SCHWARZ DO ([id number]) on 06/30/2024 7:11:38 PM Referred By: Electronically Signed By: SALUD SCHWARZ DO Transcribed By: MUS Signed By Salud Schwarz DO 06/30 191 Normal [facility] Eosinophils Auto (Bld) [#/Vo l]Ordered By: Parminder Serrano on 06-29-2024 Eosinophils (Bld) [#/Vol] Automated eosinophil count 0.0-0.45 [facility] Eosinophils/100 WBC Auto (Bl d)Ordered By: Parminder Serrano on 06-29-2024 Eosinophils/100 WBC (Bld) Automated eosinophil % . [facility] Epithelial cells.squamous [# /area] in Urine sediment by Automated countOrdered By: Parminder Serrano on 06-29-2024 Epithelial cells.squamous Auto (Urine sed) [#/Area] Epithelial cells.squamous [#/area] in Urine sediment by Automated count High 0-2 [facility] Erythrocyte distribution wid th Auto (RBC) [Ratio]Ordered By: Parminder Serrano on 06-29-2024 Erythrocyte distribution width (RBC) [Ratio] Erythrocyte distribution width [Ratio] by Automated count 11.9-15.3 [facility] Erythrocytes [#/area] in Uri ne sediment by Automated countOrdered By: Parminder Serrano on 06-29-2024 RBC Auto (Urine sed) [#/Area] Erythrocytes [#/area] in Urine sediment by Automated count 0-4 [facility] Globulin Calc (S) [Mass/Vol] Ordered By: Parminder Serrano on 06-29-2024 Globulin (S) [Mass/Vol] Serum globulin measurement by calculation (mass/volume) [facility] Glucose [Mass/volume] in Ser um or PlasmaOrdered By: Parminder Serrano on 06-29-2024 Glucose [Mass/Vol] Glucose [Mass/volume ] in Serum or Plasma High 70-100 [facility] Comment on above: ADA recommended refe rence [...] in Urine by Test strip High Normal [facility] Hematocrit Auto (Bld) [Volum e fraction]Ordered By: Parminder Serrano on 06-29-2024 Hematocrit (Bld) [Volume fraction] Hematocrit [Volume Fraction] of Blood by Automated count Low 34.0-46.4 [facility] Hemoglobin Test strip Ql (U) Ordered By: Parminder Serrano 06-29-2024 Hemoglobin Ql (U) Hemoglobin [Presence ] in Urine by Test strip Negative [facility] Hemoglobin [Mass/volume] in BloodOrdered By: Parminder Serrano 06-29-2024 Hemoglobin (Bld) [Mass/Vol] Hemoglobin [Mass/volume] in Blood Low 11.8-15.4 [facility] Hyaline casts [#/area] in Ur ine sediment by Automated countOrdered By: Parminder Serrnao 06-29-2024 Hyaline casts Auto (Urine sed) [#/Area] Hyaline casts [#/area] in Urine sediment by Automated count 0-8 [facility] Ketones Test strip Ql (U)Ord ered By: Parminder Serrano on 06-29-2024 Ketones Ql (U) Ketones [Presence] i n Urine by Test strip High Negative [facility] Leukocyte esterase [Presence ] in Urine by Test stripOrdered By: Parminder Serrano 06-29-2024 Leukocyte esterase Test strip Ql (U) Leukocyte esterase [Presence] in Urine by Test strip High Negative [facility] Leukocytes [#/area] in Urine sediment by Automated countOrdered By: Parminder Serrano on 06-29-2024 WBC Auto (Urine sed) [#/Area] Leukocytes [#/area] in Urine sediment by Automated count High 0-4 [facility] Leukocytes [#/volume] correc rossy for nucleated erythrocytes in Blood by Automated counOrdered By: Parminder Serrano on 06-29-2024 WBC corrected for nucl RBC Auto (Bld) [#/Vol] Leukocytes [#/volume] corrected for nucleated erythrocytes in Blood by Automated coun 3.8-11.6 [facility] Lymphocytes Auto (Bld) [#/Vo l]Ordered By: Parminder Serrano on 06-29-2024 Lymphocytes (Bld) [#/Vol] Lymphocytes [#/volume] in Blood by Automated count Low 1.00-4.8 [facility] Lymphocytes/100 WBC Auto (Bl d)Ordered By: Parminder Serrano on 06-29-2024 Lymphocytes/100 WBC (Bld) Lymphocytes/100 leukocytes in Blood by Automated count . [facility] MCH Auto (RBC) [Entitic mass ]Ordered By: Parminder Serrano on 06-29-2024 MCH (RBC) [Entitic mass] MCH [Entitic mass] by Automated count 24.7-34.3 [facility] MCHC Auto (RBC) [Mass/Vol]Or dered By: Parminder Serrano on 06-29-2024 MCHC (RBC) [Mass/Vol] MCHC [Mass/volume] by Automated count 32.0-35.0 [facility] MCV Auto (RBC) [Entitic vol] Ordered By: Parminder Serrano on 06-29-2024 MCV (RBC) [Entitic vol] MCV [Entitic volume] by Automated count 80-100 [facility] Magnesiumon 06-29-2024 Magnesium Normal 1.9-2.7 [facility] Comment on above: Result Comment: Spec imen hemolyzed, redraw requested PERFORMED BY: [facility] [address] [place] [address] PATHOLOGIST PROCESSING SPECIALIST SARAH ANDREWS M.D. Performed By: #### H EPATIC, CBC, BMP, LIPASE #### [facility] [address] Magnesium [Mass/volume] in S mayte or PlasmaOrdered By: Parminder Serrano on 06-29-2024 Magnesium [Mass/Vol] Magnesium [Mass/vol ume] in Serum or Plasma Low 1.9-2.7 [facility] Monocyte distribution width [Entitic volume] in Blood by AutomatedOrdered By: Parminder Serrano on 06-29-2024 Monocyte distribution width Auto (Bld) [Entitic vol] Monocyte distribution width [Entitic volume] in Blood by Automated High 0.00-20.00 [facility] Comment on above: For adults in ED, MD W > 20.0 may be associated with a higher risk of sepsis during the first 12 hrs of hospital admission Monocytes Auto (Bld) [#/Vol] Ordered By: Parminder Serrano on 06-29-2024 Monocytes (Bld) [#/Vol] Automated blood monocyte count 0.0-0.8 [facility] Monocytes/100 WBC Auto (Bld) Ordered By: Parminder Serrano on 06-29-2024 Monocytes/100 WBC (Bld) Automated monocyte % . [facility] Mucus [Presence] in Urine by AutomatedOrdered By: Parminder Serrano on 06-29-2024 Mucus Auto Ql (U) Mucus [Presence] in Urine by Automated [facility] Neutrophils Auto (Bld) [#/Vo l]Ordered By: Parminder Serrano on 06-29-2024 Neutrophils (Bld) [#/Vol] Neutrophils [#/volume] in Blood by Automated count High 1.8-7.7 [facility] Neutrophils/100 WBC Auto (Bl d)Ordered By: Parminder Serrano on 06-29-2024 Neutrophils/100 WBC (Bld) Automated neutrophil % . [facility] Nitrite Test strip Ql (U)Ord ered By: Parminder Serrano on 06-29-2024 Nitrite Ql (U) Nitrite [Presence] i n Urine by Test strip Negative [facility] No Panel InformationOrdered By: Parminder Serrano on 06-29-2024 Estimated GFR (CKD-EPI) > 60.0 mL/Min [facility] Creatinine Clearance (Chem 173.12 [facility] Nucleated erythrocytes [Pres ence] in Blood by Automated countOrdered By: Parminder Serrano on 06-29-2024 Nucleated RBC Auto Ql (Bld) Nucleated erythrocytes [Presence] in Blood by Automated count 0-0.5 [facility] Opiates [Presence] in Urine by Screen methodOrdered By: Parminder Serrano on 06-29-2024 Opiates Screen Ql (U) Opiates [Presence] in Urine by Screen method Negative [facility] Phencyclidine Screen Ql (U)O rdered By: Parminder Serrano on 06-29-2024 Phencyclidine Ql (U) Phencyclidine [Pres ence] in Urine by Screen method Negative [facility] Platelet mean volume Auto (B ld) [Entitic vol]Ordered By: Parminder Serrano on 06-29-2024 Platelet mean volume (Bld) [Entitic vol] Platelet mean volume [Entitic volume] in Blood by Automated count High 6.3-10.7 [facility] Platelets Auto (Bld) [#/Vol] Ordered By: Parminder Serrano 06-29-2024 Platelets (Bld) [#/Vol] Platelets [#/volume] in Blood by Automated count 150-450 [facility] Potassium [Moles/volume] in Serum or PlasmaOrdered By: Parminder Serrano 06-29-2024 Potassium [Moles/Vol] Potassium [Moles/v olume] in Serum or Plasma 3.5-5.1 [facility] Protein Test strip (U) [Mass /Vol]Ordered By: Parminder Serrano on 06-29-2024 Protein (U) [Mass/Vol] Protein [Mass/volume] in Urine by Test strip High Negative [facility] Protein [Mass/volume] in Ser um or PlasmaOrdered By: Parminder Serrano 06-29-2024 Protein [Mass/Vol] Protein [Mass/volume ] in Serum or Plasma 6.4-8.9 [facility] RBC Auto (Bld) [#/Vol]Ordere d By: Parminder Serrano on 06-29-2024 RBC (Bld) [#/Vol] Erythrocytes [#/volu me] in Blood by Automated count 3.60-5.00 [facility] Redraw Shine 06-29-2024 AST [Catalytic activity/Vol] 10 U/L Low 13-39 [facility] Comment on above: Result Comment: PERF ORMED BY: [place] [address] PATHOLOGIST PROCESSING SPECIALIST SARAH ANDREWS M.D. Performed By: #### H EPATIC, CBC, BMP, LIPASE #### [facility] [address] [place] [address] Redraw Magnesiumon 5 Magnesium [Mass/Vol] 1.7 mg/dL Low 1.9-2.7 [facility] Comment on above: Performed By: #### H EPATIC, CBC, BMP, LIPASE #### [address] Redraw Potassiumon 5 Potassium [Moles/Vol] 3.8 mmol/L Normal 3.5-5.1 [facility] Comment on above: Performed By: #### H EPATIC, CBC, BMP, LIPASE #### [address] Serum or plasma albumin/glob ulin mass ratioOrdered By: Parminder Serrano on 06-29-2024 Albumin/Globulin [Mass ratio] Serum or plasma albumin/globulin mass ratio [facility] Serum or plasma anion gap de terminationOrdered By: Parminder Serrano on 06-29-2024 Anion gap [Moles/Vol] Serum or plasma an ion gap determination [facility] Comment on above: Test not performed Sodium [Moles/volume] in Ser um or PlasmaOrdered By: Parminder Serrano on 06-29-2024 Sodium [Moles/Vol] Sodium [Moles/volume ] in Serum or Plasma 136-145 [facility] Specific gravity Test strip (U) [Rel density]Ordered By: Parminder Serrano on 06-29-2024 Specific gravity (U) [Rel density] Specific gravity of Urine by Test strip 1.001-1.03 0 [facility] Urea nitrogen [Mass/volume] in Serum or PlasmaOrdered By: Parminder Serrano on 06-29-2024 Urea nitrogen [Mass/Vol] Urea nitrogen [Mass/volume] in Serum or Plasma 7-25 [facility] Urine Cultureon 06-29-2024 Bacteria identified Cx Nom (U) <9,000 colonies/ml mixed bacterial skin contaminants 2 Days PERFORMED BY: [place] [address] PATHOLOGIST PROCESSING SPECIALIST SARAH ANDREWS M.D. Normal [facility] Comment on above: Performed By: #### A DDONUAPLUS, URDS, CUU #### [address] Urobilinogen Test strip (U) [Mass/Vol]Ordered By: Parminder Serrano on 06-29-2024 Urobilinogen (U) [Mass/Vol] Urobilinogen [Mass/volume] in Urine by Test strip Normal [facility] WBC Auto (Bld) [#/Vol]Ordere d By: Parminder Serrano on 06-29-2024 WBC (Bld) [#/Vol] Leukocytes [#/volume ] in Blood by Automated count 3.8-11.6 [facility] pH Test strip (U)Ordered By: Parminder Serrano on 06-29-2024 pH (U) pH of Urine by Test strip 5.0-9.0 [facility] Urinalysis macro (dipstick) panel (U)on 06-21-2024 Bilirubin, UA Negative Negative - 4(70) +++ mg/dL [facility] Blood, UA Negative Negative - 50 Josiah/mcL [facility] Clarity, UA Clear [facility] Color, UA Yellow [facility] Glucose, UA Negative Negative - 1999(110) ++++ mg/dL [facility] Interpretation and review of laboratory results Abnormal [facility] Ketones, UA Negative Negative - 160(16) ++++ mg/dL [facility] Leukocytes, UA Trace Negative - 500+++ [place]/mcL [facility] Nitrite, UA Negative Negative - Positive [facility] pH, UA 7 5 - 9 [facility] Protein, UA Trace Negative - 1999(20) ++++ mg/dL [facility] Spec Grav, UA 1.025 1 - 1.03 [facility] Urobilinogen, UA 0.2 0.2 - 12 mg/dL [facility] Alanine aminotransferase [En zymatic activity/volume] in Serum or PlasmaOrdered By: Mateo Navas on 06-07-2024 ALT [Catalytic activity/Vol] Alanine aminotransferase [Enzymatic activity/volume] in Serum or Plasma 752 [facility] Albumin [Mass/volume] in Ser um or Plasma by Bromocresol green (BCG) dye binding methoOrdered By: Mateo Navas on 06-07-2024 Albumin BCG dye [Mass/Vol] Albumin [Mass/volume] in Serum or Plasma by Bromocresol green (BCG) dye binding metho 3.5-5.7 [facility] Alkaline phosphatase [Enzyma tic activity/volume] in Serum or PlasmaOrdered By: Mateo Navas on 06-07-2024 ALP [Catalytic activity/Vol] Alkaline phosphatase [Enzymatic activity/volume] in Serum or Plasma 34-104 [facility] Amphetamine Screen Ql (U)Ord ered By: Mateo Navas on 06-07-2024 Amphetamines Ql (U) Amphetamines screen Negativ e [facility] Appearance of UrineOrdered B y: Mateo Navas on 06-07-2024 Appearance (U) Urine appearance Clear [facility] Aspartate aminotransferase [ Enzymatic activity/volume] in Serum or PlasmaOrdered By: Mateo Navas on 06-07-2024 AST [Catalytic activity/Vol] Aspartate aminotransferase [Enzymatic activity/volume] in Serum or Plasma Low 13-39 [facility] Barbiturates [Presence] in U rine by Screen methodOrdered By: Mateo Navas on 06-07-2024 Barbiturates Screen Ql (U) Barbiturates [Presence] in Urine by Screen method Negative [facility] Basic Metabolic Panelon 05-20 Anion gap [Moles/Vol] 12.8 mmol/L Normal 6.0-15.0 [facility] Comment on above: Performed By: #### H EPATIC, CBC, BMP, LIPASE #### [address] Calcium [Mass/Vol] 8.7 mg/dL Normal 8.6-10.3 [facility] Comment on above: Performed By: #### H EPATIC, CBC, BMP, LIPASE #### [facility] [address] [place] [address] [place] Chloride [Moles/Vol] 109 mmol/L High 98-107 [facility] Comment on above: Performed By: #### H EPATIC, CBC, BMP, LIPASE #### [facility] [address] CO2 [Moles/Vol] 19.6 mmol/L Low 21.0-31.0 [facility] Comment on above: Performed By: #### H EPATIC, CBC, BMP, LIPASE #### [facility] [address] [place] [address] [place] Creatinine [Mass/Vol] 0.46 mg/dL Low 0.60-1.20 [facility] Comment on above: Performed By: #### H EPATIC, CBC, BMP, LIPASE #### [facility] [address] [place] [address] [place] Creatinine Clr Calc Pharmacy 167.01 Normal [facility] Comment on above: Performed By: #### H EPATIC, CBC, BMP, LIPASE #### [facility] [address] [place] [address] [place] GFR/1.73 sq M.predicted MDRD (S/P/Bld) [Vol rate/Area] mL/min/{1.73_m2} Normal [facility] Comment on above: Performed By: #### H EPATIC, CBC, BMP, LIPASE #### [place] [address] [place] Glucose [Mass/Vol] 156 mg/dL High 70-100 [facility] Comment on above: Result Comment: [place] Glucose Reference Range is dependent on time and content of last meal. Glucose of more than 200 mg/dL in a nonstressed, ambulatory subject supports the diagnosis of Diabetes Mellitus. ADA recommended reference range Performed By: #### H EPATIC, CBC, BMP, LIPASE #### [facility] [address] Potassium [Moles/Vol] 3.4 mmol/L Low 3.5-5.1 [facility] Comment on above: Performed By: #### H EPATIC, CBC, BMP, LIPASE #### [facility] [address] Sodium [Moles/Vol] 138 mmol/L Normal 136-145 [facility] Comment on above: Performed By: #### H EPATIC, CBC, BMP, LIPASE #### [facility] [address] Urea nitrogen [Mass/Vol] 6 mg/dL Low 7-25 [facility] Comment on above: Performed By: #### H EPATIC, CBC, BMP, LIPASE #### [facility] [address] [place] [address] [place] Basophils Auto (Bld) [#/Vol] Ordered By: Mateo Navas on 06-07-2024 Basophils (Bld) [#/Vol] Automated basophil count 0.0-0.2 [facility] Basophils/100 WBC Auto (Bld) Ordered By: Mateo Navas on 06-07-2024 Basophils/100 WBC (Bld) Automated basophil % . [facility] Benzodiazepines Screen Ql (U )Ordered By: Mateo Navas on 06-07-2024 Benzodiazepines Ql (U) Benzodiazepines [Presence] in Urine by Screen method Negative [facility] Benzoylecgonine [Presence] i n Urine by Screen methodOrdered By: Mateo Navas on 06-07-2024 Benzoylecgonine Screen Ql (U) Benzoylecgonine [Presence] in Urine by Screen method Negative [facility] Bilirubin Test strip Ql (U)O rdered By: Mateo Navas on 06-07-2024 Bilirubin Ql (U) Bilirubin.total [Pre sence] in Urine by Test strip Negative [facility] Bilirubin.direct [Mass/volum e] in Serum or PlasmaOrdered By: Mateo Navas on 06-07-2024 Bilirubin.direct [Mass/Vol] Bilirubin.direct [Mass/volume] in Serum or Plasma Low 0.03-0.18 [facility] Comment on above: If the DBIL is less than 0.1, IBIL is not able to becalculated. Bilirubin.total [Mass/volume ] in Serum or PlasmaOrdered By: Mateo Navas on 06-07-2024 Bilirubin [Mass/Vol] Bilirubin.total [Mass/volume] in Serum or Plasma 0.3-1.0 [facility] Calcium [Mass/volume] in Ser um or PlasmaOrdered By: Mateo Navas on 06-07-2024 Calcium [Mass/Vol] Calcium [Mass/volume ] in Serum or Plasma 8.6-10.3 [facility] Cannabinoids [Presence] in U rine by Screen methodOrdered By: Mateo Navas on 06-07-2024 Cannabinoids Screen Ql (U) Cannabinoids [Presence] in Urine by Screen method High Negative [facility] Comment on above: These are unconfirme d [...] [Moles/volume] in Serum or Plasma Low 21.0-31.0 [facility] Chloride [Moles/volume] in S mayte or PlasmaOrdered By: Mateo Navas on 06-07-2024 Chloride [Moles/Vol] Chloride [Moles/vol ume] in Serum or Plasma High 98-107 [facility] Color Auto (U)Ordered By: Lamont red Eloise on 06-07-2024 Color (U) Color of Urine by Auto Yellow [facility] Complete Blood Count Auto Di ffon 06-07-2024 Basophils (Bld) [#/Vol] 0.0 10*3/uL Normal 0.0-0.2 [facility] Comment on above: Result Comment: PERF ORMED BY: [place] [address] PATHOLOGIST PROCESSING SPECIALIST SARAH ANDREWS M.D. Performed By: #### H EPATIC, CBC, BMP, LIPASE #### [address] Basophils/100 WBC (Bld) 0.1 % Normal . [facility] Comment on above: Performed By: #### H EPATIC, CBC, BMP, LIPASE #### [address] Eosinophils (Bld) [#/Vol] 0.0 10*3/uL Normal 0.0-0.45 [facility] Comment on above: Performed By: #### H EPATIC, CBC, BMP, LIPASE #### [address] Eosinophils/100 WBC (Bld) 0.0 % Normal . [facility] Comment on above: Performed By: #### H EPATIC, CBC, BMP, LIPASE #### [address] Erythrocyte distribution width (RBC) [Ratio] 13.6 % Normal 11.9-15.3 [facility] Comment on above: Performed By: #### H EPATIC, CBC, BMP, LIPASE #### [address] Hematocrit (Bld) [Volume fraction] 33.6 % Low 34.0-46.4 [facility] Comment on above: Performed By: #### H EPATIC, CBC, BMP, LIPASE #### [address] Hemoglobin (Bld) [Mass/Vol] 11.4 g/dL Low 11.8-15.4 [facility] Comment on above: Performed By: #### H EPATIC, CBC, BMP, LIPASE #### [address] Lymphocytes (Bld) [#/Vol] 0.9 10*3/uL Low 1.00-4.8 [facility] Comment on above: Performed By: #### H EPATIC, CBC, BMP, LIPASE #### [address] Lymphocytes/100 WBC (Bld) 7.2 % Normal . [facility] Comment on above: Performed By: #### H EPATIC, CBC, BMP, LIPASE #### [address] MCH (RBC) [Entitic mass] 29.1 pg Normal 24.7-34.3 [facility] Comment on above: Performed By: #### H EPATIC, CBC, BMP, LIPASE #### [address] MCV (RBC) [Entitic vol] 85.7 fL Normal 80-100 [facility] Comment on above: Performed By: #### H EPATIC, CBC, BMP, LIPASE #### [address] Mean Corpuscular HGB Conc 34.0 g/dL Normal 32.0-35.0 [facility] Comment on above: Performed By: #### H EPATIC, CBC, BMP, LIPASE #### [address] Monocytes (Bld) [#/Vol] 0.3 10*3/uL Normal 0.0-0.8 [facility] Comment on above: Performed By: #### H EPATIC, CBC, BMP, LIPASE #### [address] Monocytes/100 WBC (Bld) 22.40 % High 0.00-20.00 [facility] Comment on above: Result Comment: For adults in ED, MDW > 20.0 may be associated with a higher risk of sepsis during the first 12 hrs of hospital admission Performed By: #### H EPATIC, CBC, BMP, LIPASE #### [address] Monocytes/100 WBC (Bld) 2.4 % Normal . [facility] Comment on above: Performed By: #### H EPATIC, CBC, BMP, LIPASE #### [address] Neutrophils (Bld) [#/Vol] 11.1 10*3/uL High 1.8-7.7 [facility] Comment on above: Performed By: #### H EPATIC, CBC, BMP, LIPASE #### [address] Neutrophils/100 WBC (Bld) 90.3 % Normal . [facility] Comment on above: Performed By: #### H EPATIC, CBC, BMP, LIPASE #### [address] NRBC% 0.1 /100{WBC} Normal 0-0.5 [facility] Comment on above: Performed By: #### H EPATIC, CBC, BMP, LIPASE #### [address] Platelet mean volume (Bld) [Entitic vol] 11.1 fL High 6.3-10.[address] [facility] Comment on above: Performed By: #### H EPATIC, CBC, BMP, LIPASE #### [address] Platelets (Bld) [#/Vol] 190 10*3/uL Normal 150-450 [facility] Comment on above: Performed By: #### H EPATIC, CBC, BMP, LIPASE #### [address] RBC (Bld) [#/Vol] 3.92 10*6/uL Normal 3.60-5.00 [facility] Comment on above: Performed By: #### H EPATIC, CBC, BMP, LIPASE #### [address] WBC (Bld) [#/Vol] 12.3 10*3/uL High 3.8-11.6 [facility] Comment on above: Performed By: #### H EPATIC, CBC, BMP, LIPASE #### [address] Creatinine [Mass/volume] in Serum or PlasmaOrdered By: Mateo Navas on 06-07-2024 Creatinine [Mass/Vol] Creatinine [Mass/v olume] in Serum or Plasma Low 0.60-1.20 [facility] Drug Screen,Urineon 03-19-20 25 Amphetamine Screen,Urine Negative Normal Negative [facility] Comment on above: Performed By: #### H EPATIC, CBC, BMP, LIPASE #### [address] Barbiturate Screen,Urine Negative Normal Negative [facility] Comment on above: Performed By: #### H EPATIC, CBC, BMP, LIPASE #### [address] Benzodiazepines Screen,Urine Negative Normal Negative [facility] Comment on above: Performed By: #### H EPATIC, CBC, BMP, LIPASE #### [address] Cannabinoid Screen,Urine Positive High Negative [facility] Comment on above: Result Comment: Thes e are unconfirmed results and should not be used for legal purposes. Drug Cut-Off Concentration: AMPH 1000 ng/mL DENIS 200 ng/mL DIOR 200 ng/mL COCM 300 ng/mL OP 300 ng/mL PCP 25 ng/mL THC 20 ng/mL PERFORMED BY: [place] [address] PATHOLOGIST PROCESSING SPECIALIST SARAH ANDREWS M.D. Performed By: #### H EPATIC, CBC, BMP, LIPASE #### [address] Cocaine Screen,Urine Negative Normal Negative [facility] Comment on above: Performed By: #### H EPATIC, CBC, BMP, LIPASE #### [address] Opiate Screen,Urine Negative Normal Negative [facility] Comment on above: Performed By: #### H EPATIC, CBC, BMP, LIPASE #### [address] Phencyclidine Screen,Urine Negative Normal Negative [facility] Comment on above: Performed By: #### H EPATIC, CBC, BMP, LIPASE #### [address] Eosinophils Auto (Bld) [#/Vo l]Ordered By: Mateo Navas on 06-07-2024 Eosinophils (Bld) [#/Vol] Automated eosinophil count 0.0-0.45 [facility] Eosinophils/100 WBC Auto (Bl d)Ordered By: Mateo Navas on 06-07-2024 Eosinophils/100 WBC (Bld) Automated eosinophil % . [facility] Erythrocyte distribution wid th Auto (RBC) [Ratio]Ordered By: Mateo Navas on 06-07-2024 Erythrocyte distribution width (RBC) [Ratio] Erythrocyte distribution width [Ratio] by Automated count 11.9-15.3 [facility] Globulin Calc (S) [Mass/Vol] Ordered By: Mateo Navas on 06-07-2024 Globulin (S) [Mass/Vol] Serum globulin measurement by calculation (mass/volume) [facility] Glucose [Mass/volume] in Ser um or PlasmaOrdered By: Mateo Navas on 06-07-2024 Glucose [Mass/Vol] Glucose [Mass/volume ] in Serum or Plasma High 70-100 [facility] Comment on above: ADA recommended refe rence [...] in Urine by Test strip High Normal [facility] Hematocrit Auto (Bld) [Volum e fraction]Ordered By: Mateo Navas on 06-07-2024 Hematocrit (Bld) [Volume fraction] Hematocrit [Volume Fraction] of Blood by Automated count Low 34.0-46.4 [facility] Hemoglobin Test strip Ql (U) Ordered By: Mateo Navas on 06-07-2024 Hemoglobin Ql (U) Hemoglobin [Presence ] in Urine by Test strip Negative [facility] Hemoglobin [Mass/volume] in BloodOrdered By: Mateo Navas on 06-07-2024 Hemoglobin (Bld) [Mass/Vol] Hemoglobin [Mass/volume] in Blood Low 11.8-15.4 [facility] Hepatic Panelon 06-07-2024 Albumin [Mass/Vol] 3.9 g/dL Normal 3.5-5.7 [facility] Comment on above: Performed By: #### H EPATIC, CBC, BMP, LIPASE #### [address] Albumin/Globulin [Mass ratio] 1.2 {ratio} Normal [facility] Comment on above: Performed By: #### H EPATIC, CBC, BMP, LIPASE #### [address] ALP [Catalytic activity/Vol] 44 U/L Normal 34-104 [facility] Comment on above: Performed By: #### H EPATIC, CBC, BMP, LIPASE #### [address] ALT [Catalytic activity/Vol] 7 U/L Normal 7-52 [facility] Comment on above: Performed By: #### H EPATIC, CBC, BMP, LIPASE #### [address] AST [Catalytic activity/Vol] 11 U/L Low 13-39 [facility] Comment on above: Performed By: #### H EPATIC, CBC, BMP, LIPASE #### [address] Bilirubin [Mass/Vol] 0.3 mg/dL Normal 0.3-1.0 [facility] Comment on above: Performed By: #### H EPATIC, CBC, BMP, LIPASE #### [address] Bilirubin,Indirect 0.3 mg/dL Normal [facility] Comment on above: Performed By: #### H EPATIC, CBC, BMP, LIPASE #### [address] Bilirubin.indirect [Mass/Vol] 0.00 mg/dL Low 0.03-0.18 [facility] Comment on above: Result Comment: If t he DBIL is less than 0.1, IBIL is not able to be calculated. Performed By: #### H EPATIC, CBC, BMP, LIPASE #### [facility] [address] Globulin (S) [Mass/Vol] 3.2 g/dL Normal [facility] Comment on above: Performed By: #### H EPATIC, CBC, BMP, LIPASE #### [address] Protein [Mass/Vol] 7.1 g/dL Normal 6.4-8.9 [facility] Comment on above: Performed By: #### H EPATIC, CBC, BMP, LIPASE #### [facility] [address] [place] [address] Ketones Test strip Ql (U)Ord ered By: Mateo Navas on 06-07-2024 Ketones Ql (U) Ketones [Presence] i n Urine by Test strip High Negative [facility] Leukocyte esterase [Presence ] in Urine by Test stripOrdered By: Mateo Navas on 06-07-2024 Leukocyte esterase Test strip Ql (U) Leukocyte esterase [Presence] in Urine by Test strip Negative [facility] Leukocytes [#/volume] correc rossy for nucleated erythrocytes in Blood by Automated counOrdered By: Mateo Navas on 06-07-2024 WBC corrected for nucl RBC Auto (Bld) [#/Vol] Leukocytes [#/volume] corrected for nucleated erythrocytes in Blood by Automated coun High 3.8-11.6 [facility] Lipaseon 06-07-2024 Lipase [Catalytic activity/Vol] 13.0 U/L Normal 11.0-82.0 [facility] Comment on above: Result Comment: PERF ORMED BY: [place] [address] PATHOLOGIST PROCESSING SPECIALIST SARAH ANDREWS M.D. Performed By: #### H EPATIC, CBC, BMP, LIPASE #### [facility] [address] [place] [address] Lipase [Enzymatic activity/v olume] in Serum or PlasmaOrdered By: Mateo Navas on 06-07-2024 Lipase [Catalytic activity/Vol] Lipase [Enzymatic activity/volume] in Serum or Plasma 11.0-82.0 [facility] Lymphocytes Auto (Bld) [#/Vo l]Ordered By: Mateo Navas on 06-07-2024 Lymphocytes (Bld) [#/Vol] Lymphocytes [#/volume] in Blood by Automated count Low 1.00-4.8 [facility] Lymphocytes/100 WBC Auto (Bl d)Ordered By: Mateo Navas on 06-07-2024 Lymphocytes/100 WBC (Bld) Lymphocytes/100 leukocytes in Blood by Automated count . [facility] MCH Auto (RBC) [Entitic mass ]Ordered By: Mateo Navas on 06-07-2024 MCH (RBC) [Entitic mass] MCH [Entitic mass] by Automated count 24.7-34.3 [facility] MCHC Auto (RBC) [Mass/Vol]Or dered By: Mateo Navas on 06-07-2024 MCHC (RBC) [Mass/Vol] MCHC [Mass/volume] by Automated count 32.0-35.0 [facility] MCV Auto (RBC) [Entitic vol] Ordered By: Mateo Navas on 06-07-2024 MCV (RBC) [Entitic vol] MCV [Entitic volume] by Automated count 80-100 [facility] Monocyte distribution width [Entitic volume] in Blood by AutomatedOrdered By: Mateo Navas on 06-07-2024 Monocyte distribution width Auto (Bld) [Entitic vol] Monocyte distribution width [Entitic volume] in Blood by Automated High 0.00-20.00 [facility] Comment on above: For adults in ED, MD W > 20.0 may be associated with a higher risk of sepsis during the first 12 hrs of hospital admission Monocytes Auto (Bld) [#/Vol] Ordered By: Mateo Navas on 06-07-2024 Monocytes (Bld) [#/Vol] Automated blood monocyte count 0.0-0.8 [facility] Monocytes/100 WBC Auto (Bld) Ordered By: Mateo Navas on 06-07-2024 Monocytes/100 WBC (Bld) Automated monocyte % . [facility] Neutrophils Auto (Bld) [#/Vo l]Ordered By: Mateo Navas on 06-07-2024 Neutrophils (Bld) [#/Vol] Neutrophils [#/volume] in Blood by Automated count High 1.8-7.7 [facility] Neutrophils/100 WBC Auto (Bl d)Ordered By: Mateo Navas on 06-07-2024 Neutrophils/100 WBC (Bld) Automated neutrophil % . [facility] Nitrite Test strip Ql (U)Ord ered By: Mateo Navas on 06-07-2024 Nitrite Ql (U) Nitrite [Presence] i n Urine by Test strip Negative [facility] No Panel InformationOrdered By: Mateo Navas on 06-07-2024 Estimated GFR (CKD-EPI) > 60.0 mL/Min [facility] Creatinine Clearance (Chem 167.01 [facility] Nucleated erythrocytes [Pres ence] in Blood by Automated countOrdered By: Mateo aNvas on 06-07-2024 Nucleated RBC Auto Ql (Bld) Nucleated erythrocytes [Presence] in Blood by Automated count 0-0.5 [facility] Opiates [Presence] in Urine by Screen methodOrdered By: Mateo Navas on 06-07-2024 Opiates Screen Ql (U) Opiates [Presence] in Urine by Screen method Negative [facility] Phencyclidine Screen Ql (U)O rdered By: Mateo Navas on 06-07-2024 Phencyclidine Ql (U) Phencyclidine [Pres ence] in Urine by Screen method Negative [facility] Platelet mean volume Auto (B ld) [Entitic vol]Ordered By: Mateo Navas on 06-07-2024 Platelet mean volume (Bld) [Entitic vol] Platelet mean volume [Entitic volume] in Blood by Automated count High 6.3-10.7 [facility] Platelets Auto (Bld) [#/Vol] Ordered By: Mateo Navas on 06-07-2024 Platelets (Bld) [#/Vol] Platelets [#/volume] in Blood by Automated count 150-450 [facility] Potassium [Moles/volume] in Serum or PlasmaOrdered By: Mateo Navas on 06-07-2024 Potassium [Moles/Vol] Potassium [Moles/v olume] in Serum or Plasma Low 3.5-5.1 [facility] Protein Test strip (U) [Mass /Vol]Ordered By: Mateo Navas on 06-07-2024 Protein (U) [Mass/Vol] Protein [Mass/volume] in Urine by Test strip Negative [facility] Protein [Mass/volume] in Ser um or PlasmaOrdered By: Mateo Navas on 06-07-2024 Protein [Mass/Vol] Protein [Mass/volume ] in Serum or Plasma 6.4-8.9 [facility] RBC Auto (Bld) [#/Vol]Ordere d By: Mateo Navas on 06-07-2024 RBC (Bld) [#/Vol] Erythrocytes [#/volu me] in Blood by Automated count 3.60-5.00 [facility] Serum or plasma albumin/glob ulin mass ratioOrdered By: Mateo Navas on 06-07-2024 Albumin/Globulin [Mass ratio] Serum or plasma albumin/globulin mass ratio [facility] Serum or plasma anion gap de terminationOrdered By: Mateo Navas on 06-07-2024 Anion gap [Moles/Vol] Serum or plasma an ion gap determination 6.0-15.0 [facility] Serum or plasma non-glucuron idated bilirubin measurement (mass/volume)Ordered By: Mateo Navas on 06-07-2024 Bilirubin.indirect [Mass/Vol] Serum or plasma non-glucuronidated bilirubin measurement (mass/volume) [facility] Sodium [Moles/volume] in Ser um or PlasmaOrdered By: Mateo Navas on 06-07-2024 Sodium [Moles/Vol] Sodium [Moles/volume ] in Serum or Plasma 136-145 [facility] Specific gravity Test strip (U) [Rel density]Ordered By: Mateo Navas on 06-07-2024 Specific gravity (U) [Rel density] Specific gravity of Urine by Test strip 1.001-1.03 0 [facility] Urea nitrogen [Mass/volume] in Serum or PlasmaOrdered By: Mateo Navas on 06-07-2024 Urea nitrogen [Mass/Vol] Urea nitrogen [Mass/volume] in Serum or Plasma Low 7-25 [facility] Urinalysison 06-07-2024 Appearance (U) Clear Normal Clear [facility] Comment on above: Order Comment: Name Collection Type:: Clean-Voided Midstream Performed By: #### H EPATIC, CBC, BMP, LIPASE #### [facility] [address] [place] [address] [place] Bilirubin,Urine Negative Normal Negative [facility] Comment on above: Order Comment: Name Collection Type:: Clean-Voided Midstream Performed By: #### H EPATIC, CBC, BMP, LIPASE #### [facility] [address] [place] [address] [place] Color (U) Light-Yellow Normal Yellow [facility] Comment on above: Order Comment: Name Collection Type:: Clean-Voided Midstream Performed By: #### H EPATIC, CBC, BMP, LIPASE #### [place] [address] [place] Glucose Ql (U) 200 mg/dL High Normal [facility] Comment on above: Order Comment: Name Collection Type:: Clean-Voided Midstream Performed By: #### H EPATIC, CBC, BMP, LIPASE #### [address] Ketones Ql (U) 4+ High Negative [facility] Comment on above: Order Comment: Name Collection Type:: Clean-Voided Midstream Performed By: #### H EPATIC, CBC, BMP, LIPASE #### [place] [address] [place] Leukocyte esterase Test strip Ql (U) Negative Normal Negative [facility] Comment on above: Order Comment: Name Collection Type:: Clean-Voided Midstream Performed By: #### H EPATIC, CBC, BMP, LIPASE #### [place] [address] [place] Nitrite,Urine Negative Normal Negative [facility] Comment on above: Order Comment: Name Collection Type:: Clean-Voided Midstream Performed By: #### H EPATIC, CBC, BMP, LIPASE #### [place] [address] [place] Occult Blood,Urine Negative Normal Negative [facility] Comment on above: Order Comment: Name Collection Type:: Clean-Voided Midstream Result Comment: PERF ORMED BY: [place] [address] PATHOLOGIST PROCESSING SPECIALIST SARAH ANDREWS M.D. Performed By: #### H EPATIC, CBC, BMP, LIPASE #### [address] pH (U) 8.0 [pH] Normal 5.0-9.0 [facility] Comment on above: Order Comment: Name Collection Type:: Clean-Voided Midstream Performed By: #### H EPATIC, CBC, BMP, LIPASE #### [address] Protein,Urine Negative Normal Negative [facility] Comment on above: Order Comment: Name Collection Type:: Clean-Voided Midstream Performed By: #### H EPATIC, CBC, BMP, LIPASE #### [address] Specificy [place],Urine 1.020 Normal 1.001-1.03 0 [facility] Comment on above: Order Comment: Name Collection Type:: Clean-Voided Midstream Performed By: #### H EPATIC, CBC, BMP, LIPASE #### [address] Urobilinogen,Urine Normal Normal Normal [facility] Comment on above: Order Comment: Name Collection Type:: Clean-Voided Midstream Performed By: #### H EPATIC, CBC, BMP, LIPASE #### [address] Urobilinogen Test strip (U) [Mass/Vol]Ordered By: Mateo Navas on 06-07-2024 Urobilinogen (U) [Mass/Vol] Urobilinogen [Mass/volume] in Urine by Test strip Normal [facility] WBC Auto (Bld) [#/Vol]Ordere d By: Mateo Navas on 06-07-2024 WBC (Bld) [#/Vol] Leukocytes [#/volume ] in Blood by Automated count High 3.8-11.6 [facility] pH Test strip (U)Ordered By: Mateo Navas on 06-07-2024 pH (U) pH of Urine by Test strip 5.0-9.0 [facility] IGP,APTIMA HPV,AGE GDLNon AGE GDLN ACOG TESTING Note . [facility] Comment on above: TESTS RESULT FLAG UN ITS REF RANGE LAB Clinician Provided Cytology Information Source.............Cervix No. of containers..01 ThinPrep Vial Age Algo ACOG Katharina... FLAG LEGEND: L-Low Normal,H-High Normal,LL-Alert Low,HH-Alert High <-Panic Low,>-Panic High,A-Abnormal,AA-Critical Abnormal Performed at: 01 = [employer] [id number] Naina Arthur MD, HPV APTIMA Negative Negative [facility] Comment on above: This nucleic acid am plification test detects fourteen high- risk HPV types (16,18,31,33,35,39,45,51,52,56,58,59,66,68) without differentiation. Performed at: =[facility] [employer] [id number] Button Inspector: Naina Arthur MD, Phone: [phone] Performed at: [facility] [employer] [id number] Button Inspector: Naina Arthur MD, Phone: [phone] IGP, APTIMA HPV, RFX 16/18,45 Note . [facility] Comment on above: TESTS RESULT FLAG U NITS REF RANGE LAB DIAGNOSIS: 02 NEGATIVE FOR INTRAEPITHELIAL LESION OR MALIGNANCY. THIS SPECIMEN WAS RESCREENED PART OF OUR INTERFACE DEVELOPER PROGRAM. Specimen adequacy: 02 Satisfactory for evaluation. No endocervical component is identified. Performed by: Prabha Ramey, Authorization Representative (ASCP) QC reviewed by: Prabha Guerra, Authorization Representative (ASCP) . 02 Note: Note 02 The [...] <-Panic Low,>-Panic High,A-Abnormal,AA-Critical Abnormal Performed at: 02 WB [facility] [address] [place] [address] Naina Arthur MD, SPATULA-ALONE CERVIX [facility] US OB 14+ WEEKS ANATOMY SCAN [...] II, MD, PHD at 13-Jun-2024 09:57:02 AM [facility] Normal Not Available Comment on above: Order Comment: US OB ANATOMY SINGLE W US OB CERVICAL LENGTH Estimated Date of Delivery: 10/27/24 Gestational Age as of 05/25/2024: 17w6d Urinalysis macro (dipstick) panel (U)on 05-25-2024 Bilirubin, UA Negative Negative - 4(70) +++ mg/dL [facility] Blood, UA Negative Negative - 50 Josiah/mcL [facility] Clarity, UA Clear [facility] Color, UA Yellow [facility] Glucose, UA Negative Negative - 2000(110) ++++ mg/dL [facility] Interpretation and review of laboratory results Abnormal [facility] Ketones, UA Negative Negative - 160(16) ++++ mg/dL [facility] Leukocytes, UA Negative Negative - 500+++ Archana/mcL [facility] Nitrite, UA Negative Negative - Positive [facility] pH, UA 7 5 - 9 [facility] Protein, UA Trace Negative - 2000(20) ++++ mg/dL [facility] Spec Grav, UA 1.025 1 - 1.03 [facility] Urobilinogen, UA 0.2 0.2 - 12 mg/dL [facility] Alanine aminotransferase [En zymatic activity/volume] in Serum or PlasmaOrdered By: Glenn Abdullahi on 05-19-2024 ALT [Catalytic activity/Vol] Alanine aminotransferase [Enzymatic activity/volume] in Serum or Plasma 7-52 [facility] Albumin [Mass/volume] in Ser um or Plasma by Bromocresol green (BCG) dye binding methoOrdered By: Glenn Abdullahi on 05-19-2024 Albumin BCG dye [Mass/Vol] Albumin [Mass/volume] in Serum or Plasma by Bromocresol green (BCG) dye binding metho 3.5-5.7 [facility] Alkaline phosphatase [Enzyma tic activity/volume] in Serum or PlasmaOrdered By: Glenn Abdullahi on 05-19-2024 ALP [Catalytic activity/Vol] Alkaline phosphatase [Enzymatic activity/volume] in Serum or Plasma 34-104 [facility] Amphetamine Screen Ql (U)Ord ered By: Glenn Abdullahi on 05-19-2024 Amphetamines Ql (U) Amphetamines screen Negativ e [facility] Appearance of UrineOrdered B y: Glenn Abdullahi on 05-19-2024 Appearance (U) Urine appearance Abnormal Clear [facility] Aspartate aminotransferase [ Enzymatic activity/volume] in Serum or PlasmaOrdered By: Glenn Abdullahi on 05-19-2024 AST [Catalytic activity/Vol] Aspartate aminotransferase [Enzymatic activity/volume] in Serum or Plasma Low 13-39 [facility] Bacteria [Presence] in Urine by AutomatedOrdered By: Glenn Abdullahi on 05-19-2024 Bacteria Auto Ql (U) Bacteria [Presence] in Urine by Automated None Seen [facility] Barbiturates [Presence] in U rine by Screen methodOrdered By: Glenn Abdullahi on 05-19-2024 Barbiturates Screen Ql (U) Barbiturates [Presence] in Urine by Screen method Negative [facility] Basophils Auto (Bld) [#/Vol] Ordered By: Glenn Abdullahi on 05-19-2024 Basophils (Bld) [#/Vol] Automated basophil count 0.0-0.2 [facility] Basophils/100 WBC Auto (Bld) Ordered By: Glenn Abdullahi on 05-19-2024 Basophils/100 WBC (Bld) Automated basophil % . [facility] Benzodiazepines Screen Ql (U )Ordered By: Glenn Abdullahi on 05-19-2024 Benzodiazepines Ql (U) Benzodiazepines [Presence] in Urine by Screen method Negative [facility] Benzoylecgonine [Presence] i n Urine by Screen methodOrdered By: Glenn Abdullahi on 05-19-2024 Benzoylecgonine Screen Ql (U) Benzoylecgonine [Presence] in Urine by Screen method Negative [facility] Bilirubin Test strip Ql (U)O rdered By: Glenn Abdullahi on 05-19-2024 Bilirubin Ql (U) Bilirubin.total [Pre sence] in Urine by Test strip Negative [facility] Bilirubin.direct [Mass/volum e] in Serum or PlasmaOrdered By: Glenn Abdullahi on 05-19-2024 Bilirubin.direct [Mass/Vol] Bilirubin.direct [Mass/volume] in Serum or Plasma Low 0.03-0.18 [facility] Comment on above: If the DBIL is less than 0.1, IBIL is not able to becalculated. Bilirubin.total [Mass/volume ] in Serum or PlasmaOrdered By: Glenn Abdullahi on 05-19-2024 Bilirubin [Mass/Vol] Bilirubin.total [Mass/volume] in Serum or Plasma 0.3-1.0 [facility] Calcium [Mass/volume] in Ser um or PlasmaOrdered By: Glenn Abdullahi on 05-19-2024 Calcium [Mass/Vol] Calcium [Mass/volume ] in Serum or Plasma 8.6-10.3 [facility] Cannabinoids [Presence] in U rine by Screen methodOrdered By: Glenn Abdullahi on 05-19-2024 Cannabinoids Screen Ql (U) Cannabinoids [Presence] in Urine by Screen method High Negative [facility] Comment on above: These are unconfirme d [...] [Moles/volume] in Serum or Plasma Low 21.0-31.0 [facility] Chloride [Moles/volume] in S mayte or PlasmaOrdered By: Glenn Abdullahi 05-19-2024 Chloride [Moles/Vol] Chloride [Moles/vol ume] in Serum or Plasma 98-107 [facility] Choriogonadotropin.beta subu nit [Units/volume] in Serum or PlasmaOrdered By: Glenn Abdullahi on 05-19-2024 HCG.beta subunit Qn Choriogonadotropin.b eta subunit [Units/volume] in Serum or Plasma [facility] Comment on above: Approximate Approxim ate hCG Gestational Age Range (mIU/ml) (weeks)0.2-1 5-50 1-2 50-500 2-3 100-5,000 3-4 500-10,000 4-5 1,000-50,000 5-6 10,000-100,000 6-8 15,000-200,000 8-12 10,000-100,000 Color Auto (U)Ordered By: Toro Abdullahi on 05-19-2024 Color (U) Color of Urine by Auto Abnormal Yellow [facility] Complete Blood Count Auto Di ffon 05-19-2024 Basophils (Bld) [#/Vol] 0.1 10*3/uL Normal 0.0-0.2 [facility] Comment on above: Result Comment: PERF ORMED BY: [place] [address] PATHOLOGIST PROCESSING SPECIALIST SARAH ANDREWS M.D. Performed By: #### H EPATIC, CBC, BMP, LIPASE #### [address] Basophils/100 WBC (Bld) 1.4 % Normal . [facility] Comment on above: Performed By: #### H EPATIC, CBC, BMP, LIPASE #### [address] Eosinophils (Bld) [#/Vol] 0.0 10*3/uL Normal 0.0-0.45 [facility] Comment on above: Performed By: #### H EPATIC, CBC, BMP, LIPASE #### [address] Eosinophils/100 WBC (Bld) 0.3 % Normal . [facility] Comment on above: Performed By: #### H EPATIC, CBC, BMP, LIPASE #### [address] Erythrocyte distribution width (RBC) [Ratio] 13.7 % Normal 11.9-15.3 [facility] Comment on above: Performed By: #### H EPATIC, CBC, BMP, LIPASE #### [address] Hematocrit (Bld) [Volume fraction] 33.1 % Low 34.0-46.4 [facility] Comment on above: Performed By: #### H EPATIC, CBC, BMP, LIPASE #### [address] Hemoglobin (Bld) [Mass/Vol] 11.6 g/dL Low 11.8-15.4 [facility] Comment on above: Performed By: #### H EPATIC, CBC, BMP, LIPASE #### [address] Lymphocytes (Bld) [#/Vol] 1.3 10*3/uL Normal 1.00-4.8 [facility] Comment on above: Performed By: #### H EPATIC, CBC, BMP, LIPASE #### [address] Lymphocytes/100 WBC (Bld) 14.1 % Normal . [facility] Comment on above: Performed By: #### H EPATIC, CBC, BMP, LIPASE #### [address] MCH (RBC) [Entitic mass] 30.0 pg Normal 24.7-34.3 [facility] Comment on above: Performed By: #### H EPATIC, CBC, BMP, LIPASE #### [address] MCV (RBC) [Entitic vol] 85.6 fL Normal 80-100 [facility] Comment on above: Performed By: #### H EPATIC, CBC, BMP, LIPASE #### [address] Mean Corpuscular HGB Conc 35.0 g/dL Normal 32.0-35.0 [facility] Comment on above: Performed By: #### H EPATIC, CBC, BMP, LIPASE #### [address] Monocytes (Bld) [#/Vol] 0.4 10*3/uL Normal 0.0-0.8 [facility] Comment on above: Performed By: #### H EPATIC, CBC, BMP, LIPASE #### [address] Monocytes/100 WBC (Bld) 15.92 % Normal 0.00-20.00 [facility] Comment on above: Performed By: #### H EPATIC, CBC, BMP, LIPASE #### [place] [id number] [place] Monocytes/100 WBC (Bld) 4.2 % Normal . [facility] Comment on above: Performed By: #### H EPATIC, CBC, BMP, LIPASE #### [address] Neutrophils (Bld) [#/Vol] 7.1 10*3/uL Normal 1.8-7.7 [facility] Comment on above: Performed By: #### H EPATIC, CBC, BMP, LIPASE #### [address] Neutrophils/100 WBC (Bld) 80.0 % Normal . [facility] Comment on above: Performed By: #### H EPATIC, CBC, BMP, LIPASE #### [address] NRBC% 0.1 /100{WBC} Normal 0-0.5 [facility] Comment on above: Performed By: #### H EPATIC, CBC, BMP, LIPASE #### [address] Platelet mean volume (Bld) [Entitic vol] 11.0 fL High 6.3-10.[address] [facility] Comment on above: Performed By: #### H EPATIC, CBC, BMP, LIPASE #### [address] Platelets (Bld) [#/Vol] 161 10*3/uL Normal 150-450 [facility] Comment on above: Performed By: #### H EPATIC, CBC, BMP, LIPASE #### [address] RBC (Bld) [#/Vol] 3.87 10*6/uL Normal 3.60-5.00 [facility] Comment on above: Performed By: #### H EPATIC, CBC, BMP, LIPASE #### [address] WBC (Bld) [#/Vol] 8.9 10*3/uL Normal 3.8-11.6 [facility] Comment on above: Performed By: #### H EPATIC, CBC, BMP, LIPASE #### [address] Comprehensive Metabolic Pane blanquita 05-19-2024 Albumin [Mass/Vol] 3.8 g/dL Normal 3.5-5.7 [facility] Comment on above: Performed By: #### H EPATIC, CBC, BMP, LIPASE #### [address] Albumin/Globulin [Mass ratio] 1.3 {ratio} Normal [facility] Comment on above: Performed By: #### H EPATIC, CBC, BMP, LIPASE #### [address] ALP [Catalytic activity/Vol] 38 U/L Normal 34-104 [facility] Comment on above: Performed By: #### H EPATIC, CBC, BMP, LIPASE #### [address] ALT [Catalytic activity/Vol] 8 U/L Normal 7-52 [facility] Comment on above: Performed By: #### H EPATIC, CBC, BMP, LIPASE #### [address] Anion gap [Moles/Vol] 13.4 mmol/L Normal 6.0-15.0 [facility] Comment on above: Performed By: #### H EPATIC, CBC, BMP, LIPASE #### [address] AST [Catalytic activity/Vol] 10 U/L Low 13-39 [facility] Comment on above: Performed By: #### H EPATIC, CBC, BMP, LIPASE #### [address] Bilirubin [Mass/Vol] 0.3 mg/dL Normal 0.3-1.0 [facility] Comment on above: Performed By: #### H EPATIC, CBC, BMP, LIPASE #### [address] Calcium [Mass/Vol] 9.3 mg/dL Normal 8.6-10.3 [facility] Comment on above: Performed By: #### H EPATIC, CBC, BMP, LIPASE #### [address] Chloride [Moles/Vol] 107 mmol/L Normal 98-107 [facility] Comment on above: Performed By: #### H EPATIC, CBC, BMP, LIPASE #### [address] CO2 [Moles/Vol] 18.9 mmol/L Low 21.0-31.0 [facility] Comment on above: Performed By: #### H EPATIC, CBC, BMP, LIPASE #### [address] Creatinine [Mass/Vol] 0.53 mg/dL Low 0.60-1.20 [facility] Comment on above: Performed By: #### H EPATIC, CBC, BMP, LIPASE #### [place] [address] [place] Creatinine Clr Calc Pharmacy 143.53 Normal [facility] Comment on above: Performed By: #### H EPATIC, CBC, BMP, LIPASE #### [place] [address] [place] GFR/1.73 sq M.predicted MDRD (S/P/Bld) [Vol rate/Area] mL/min/{1.73_m2} Normal [facility] Comment on above: Performed By: #### H EPATIC, CBC, BMP, LIPASE #### [place] [address] [place] Globulin (S) [Mass/Vol] 2.9 g/dL Normal [facility] Comment on above: Performed By: #### H EPATIC, CBC, BMP, LIPASE #### [address] Glucose [Mass/Vol] 135 mg/dL High 70-100 [facility] Comment on above: Result Comment: [place] Glucose Reference Range is dependent on time and content of last meal. Glucose of more than 200 mg/dL in a nonstressed, ambulatory subject supports the diagnosis of Diabetes Mellitus. ADA recommended reference range Performed By: #### H EPATIC, CBC, BMP, LIPASE #### [address] Potassium [Moles/Vol] 3.3 mmol/L Low 3.5-5.1 [facility] Comment on above: Performed By: #### H EPATIC, CBC, BMP, LIPASE #### [address] Protein [Mass/Vol] 6.7 g/dL Normal 6.4-8.9 [facility] Comment on above: Performed By: #### H EPATIC, CBC, BMP, LIPASE #### [address] Sodium [Moles/Vol] 136 mmol/L Normal 136-145 [facility] Comment on above: Performed By: #### H EPATIC, CBC, BMP, LIPASE #### [address] Urea nitrogen [Mass/Vol] 8 mg/dL Normal 7-25 [facility] Comment on above: Performed By: #### H EPATIC, CBC, BMP, LIPASE #### [address] Creatinine [Mass/volume] in Serum or PlasmaOrdered By: Glenn Abdullahi on 05-19-2024 Creatinine [Mass/Vol] Creatinine [Mass/v olume] in Serum or Plasma Low 0.60-1.20 [facility] Dipstick and Microscopicon 0 05-19-2024 Appearance (U) Turbid Critically abnormal Clear [facility] Comment on above: Order Comment: Name Collection Type:: Clean-Voided Midstream Performed By: #### H EPATIC, CBC, BMP, LIPASE #### [address] Bacteria,Urine None Seen Normal None Seen [facility] Comment on above: Order Comment: Name Collection Type:: Clean-Voided Midstream Performed By: #### H EPATIC, CBC, BMP, LIPASE #### [address] Bilirubin,Urine Negative Normal Negative [facility] Comment on above: Order Comment: Name Collection Type:: Clean-Voided Midstream Performed By: #### H EPATIC, CBC, BMP, LIPASE #### [address] Color (U) [place] Critically abnormal Yellow [facility] Comment on above: Order Comment: Name Collection Type:: Clean-Voided Midstream Performed By: #### H EPATIC, CBC, BMP, LIPASE #### [address] Glucose Ql (U) Normal Normal Normal [facility] Comment on above: Order Comment: Name Collection Type:: Clean-Voided Midstream Performed By: #### H EPATIC, CBC, BMP, LIPASE #### [address] Hyaline Casts,Urine None Normal 0-8 [facility] Comment on above: Order Comment: Name Collection Type:: Clean-Voided Midstream Performed By: #### H EPATIC, CBC, BMP, LIPASE #### [address] Ketones Ql (U) 2+ High Negative [facility] Comment on above: Order Comment: Name Collection Type:: Clean-Voided Midstream Performed By: #### H EPATIC, CBC, BMP, LIPASE #### [address] Leukocyte esterase Test strip Ql (U) Negative Normal Negative [facility] Comment on above: Order Comment: Name Collection Type:: Clean-Voided Midstream Performed By: #### H EPATIC, CBC, BMP, LIPASE #### [place] [address] [place] Mucus,Urine Rare Normal [facility] Comment on above: Order Comment: Name Collection Type:: Clean-Voided Midstream Result Comment: PERF ORMED BY: [place] [address] PATHOLOGIST PROCESSING SPECIALIST SARAH ANDREWS M.D. Performed By: #### H EPATIC, CBC, BMP, LIPASE #### [place] [address] [place] Nitrite,Urine Negative Normal Negative [facility] Comment on above: Order Comment: Name Collection Type:: Clean-Voided Midstream Performed By: #### H EPATIC, CBC, BMP, LIPASE #### [place] [address] [place] Occult Blood,Urine Negative Normal Negative [facility] Comment on above: Order Comment: Name Collection Type:: Clean-Voided Midstream Result Comment: PERF ORMED BY: [place] [address] PATHOLOGIST PROCESSING SPECIALIST SARAH ANDREWS M.D. Performed By: #### H EPATIC, CBC, BMP, LIPASE #### [address] pH (U) 8.0 [pH] Normal 5.0-9.0 [facility] Comment on above: Order Comment: Name Collection Type:: Clean-Voided Midstream Performed By: #### H EPATIC, CBC, BMP, LIPASE #### [place] [address] [place] Protein,Urine Negative Normal Negative [facility] Comment on above: Order Comment: Name Collection Type:: Clean-Voided Midstream Performed By: #### H EPATIC, CBC, BMP, LIPASE #### [place] [address] [place] RBC,Urine 3-4 Normal 0-4 [facility] Comment on above: Order Comment: Name Collection Type:: Clean-Voided Midstream Performed By: #### H EPATIC, CBC, BMP, LIPASE #### [address] Specificy [place],Urine 1.014 Normal 1.001-1.03 0 [facility] Comment on above: Order Comment: Name Collection Type:: Clean-Voided Midstream Performed By: #### H EPATIC, CBC, BMP, LIPASE #### [address] Squamous Epithelial Cell,Urine 1-2 Normal 0-2 [facility] Comment on above: Order Comment: Name Collection Type:: Clean-Voided Midstream Performed By: #### H EPATIC, CBC, BMP, LIPASE #### [address] Urobilinogen,Urine Normal Normal Normal [facility] Comment on above: Order Comment: Name Collection Type:: Clean-Voided Midstream Performed By: #### H EPATIC, CBC, BMP, LIPASE #### [address] WBC,Urine None Seen Normal 0-4 [facility] Comment on above: Order Comment: Name Collection Type:: Clean-Voided Midstream Performed By: #### H EPATIC, CBC, BMP, LIPASE #### [address] Drug Screen,Urineon 05-19-19 25 Amphetamine Screen,Urine Negative Normal Negative [facility] Comment on above: Performed By: #### H EPATIC, CBC, BMP, LIPASE #### [address] Barbiturate Screen,Urine Negative Normal Negative [facility] Comment on above: Performed By: #### H EPATIC, CBC, BMP, LIPASE #### [address] Benzodiazepines Screen,Urine Negative Normal Negative [facility] Comment on above: Performed By: #### H EPATIC, CBC, BMP, LIPASE #### [address] Cannabinoid Screen,Urine Positive High Negative [facility] Comment on above: Result Comment: Thes e are unconfirmed results and should not be used for legal purposes. Drug Cut-Off Concentration: AMPH 1000 ng/mL DENIS 200 ng/mL DIOR 200 ng/mL COCM 300 ng/mL OP 300 ng/mL PCP 25 ng/mL THC 20 ng/mL PERFORMED BY: [place] [address] PATHOLOGIST PROCESSING SPECIALIST SARAH ANDREWS M.D. Performed By: #### H EPATIC, CBC, BMP, LIPASE #### [facility] [address] [place] [address] Cocaine Screen,Urine Negative Normal Negative [facility] Comment on above: Performed By: #### H EPATIC, CBC, BMP, LIPASE #### [facility] [address] Opiate Screen,Urine Negative Normal Negative [facility] Comment on above: Performed By: #### H EPATIC, CBC, BMP, LIPASE #### [address] Phencyclidine Screen,Urine Negative Normal Negative [facility] Comment on above: Performed By: #### H EPATIC, CBC, BMP, LIPASE #### [facility] [address] [place] [address] Eosinophils Auto (Bld) [#/Vo l]Ordered By: Glenn Abdullahi on 05-19-2024 Eosinophils (Bld) [#/Vol] Automated eosinophil count 0.0-0.45 [facility] Eosinophils/100 WBC Auto (Bl d)Ordered By: Glenn Abdullahi on 05-19-2024 Eosinophils/100 WBC (Bld) Automated eosinophil % . [facility] Epithelial cells.squamous [# /area] in Urine sediment by Automated countOrdered By: Glenn Abdullahi on 05-19-2024 Epithelial cells.squamous Auto (Urine sed) [#/Area] Epithelial cells.squamous [#/area] in Urine sediment by Automated count 0-2 [facility] Erythrocyte distribution wid th Auto (RBC) [Ratio]Ordered By: Glenn Abdullahi on 05-19-2024 Erythrocyte distribution width (RBC) [Ratio] Erythrocyte distribution width [Ratio] by Automated count 11.9-15.3 [facility] Erythrocytes [#/area] in Uri ne sediment by Automated countOrdered By: Glenn Abdullahi on 05-19-2024 RBC Auto (Urine sed) [#/Area] Erythrocytes [#/area] in Urine sediment by Automated count 0-4 [facility] Globulin Calc (S) [Mass/Vol] Ordered By: Glenn Abdullahi on 05-19-2024 Globulin (S) [Mass/Vol] Serum globulin measurement by calculation (mass/volume) [facility] Glucose [Mass/volume] in Ser um or PlasmaOrdered By: Glenn Abdullahi on 05-19-2024 Glucose [Mass/Vol] Glucose [Mass/volume ] in Serum or Plasma High 70-100 [facility] Comment on above: ADA recommended refe rence rangeRandom Glucose Reference Range is dependent on time and content of last meal. Glucose of more than 200 mg/dL in a nonstressed, ambulatory subject supports the diagnosis of Diabetes Mellitus. Glucose [Mass/volume] in Uri ne by Test stripOrdered By: Glenn Abdullahi on 05-19-2024 Glucose Test strip (U) [Mass/Vol] Glucose [Mass/volume] in Urine by Test strip Normal [facility] HCG,Quantitativeon HCG,Quantitative 90665.00 m[iU]/mL Normal T [facility] Comment on above: Result Comment: Appr oximate Approximate hCG Gestational Age Range (mIU/ml) (weeks) 0.2-1 5-50 1-2 50-500 2-3 100-5,000 3-4 500-10,000 4-5 1,000-50,000 5-6 10,000-100,000 6-8 15,000-200,000 8-12 10,000-100,000 PERFORMED BY: [place] [address] PATHOLOGIST PROCESSING SPECIALIST SARAH ANDREWS M.D. Performed By: #### H EPATIC, CBC, BMP, LIPASE #### [address] Hematocrit Auto (Bld) [Volum e fraction]Ordered By: Glenn Abdullahi on 05-19-2024 Hematocrit (Bld) [Volume fraction] Hematocrit [Volume Fraction] of Blood by Automated count Low 34.0-46.4 [facility] Hemoglobin Test strip Ql (U) Ordered By: Glenn Abdullahi on 05-19-2024 Hemoglobin Ql (U) Hemoglobin [Presence ] in Urine by Test strip Negative [facility] Hemoglobin [Mass/volume] in BloodOrdered By: Glenn Abdullahi on 05-19-2024 Hemoglobin (Bld) [Mass/Vol] Hemoglobin [Mass/volume] in Blood Low 11.8-15.4 [facility] Hepatic Panelon 05-19-2024 Bilirubin,Indirect 0.3 mg/dL Normal [facility] Comment on above: Performed By: #### H EPATIC, CBC, BMP, LIPASE #### [facility] [address] Bilirubin.indirect [Mass/Vol] 0.00 mg/dL Low 0.03-0.18 [facility] Comment on above: Result Comment: If t he DBIL is less than 0.1, IBIL is not able to be calculated. Performed By: #### H EPATIC, CBC, BMP, LIPASE #### [facility] [address] Hyaline casts [#/area] in Ur ine sediment by Automated countOrdered By: Glenn Abdullahi on 05-19-2024 Hyaline casts Auto (Urine sed) [#/Area] Hyaline casts [#/area] in Urine sediment by Automated count 0-8 [facility] Ketones Test strip Ql (U)Ord ered By: Glenn Abdullahi on 05-19-2024 Ketones Ql (U) Ketones [Presence] i n Urine by Test strip High Negative [facility] Leukocyte esterase [Presence ] in Urine by Test stripOrdered By: Glenn Abdullahi on 05-19-2024 Leukocyte esterase Test strip Ql (U) Leukocyte esterase [Presence] in Urine by Test strip Negative [facility] Leukocytes [#/area] in Urine sediment by Automated countOrdered By: Glenn Abdullahi on 05-19-2024 WBC Auto (Urine sed) [#/Area] Leukocytes [#/area] in Urine sediment by Automated count 0-4 [facility] Leukocytes [#/volume] correc rossy for nucleated erythrocytes in Blood by Automated counOrdered By: Glenn Abdullahi on 05-19-2024 WBC corrected for nucl RBC Auto (Bld) [#/Vol] Leukocytes [#/volume] corrected for nucleated erythrocytes in Blood by Automated coun 3.8-11.6 [facility] Lipaseon 05-19-2024 Lipase [Catalytic activity/Vol] 20.0 U/L Normal 11.0-82.0 [facility] Comment on above: Performed By: #### H EPATIC, CBC, BMP, LIPASE #### [address] Lipase [Enzymatic activity/v olume] in Serum or PlasmaOrdered By: Glenn Abdullahi on 05-19-2024 Lipase [Catalytic activity/Vol] Lipase [Enzymatic activity/volume] in Serum or Plasma 11.0-82.0 [facility] Lymphocytes Auto (Bld) [#/Vo l]Ordered By: Glenn Abdullahi on 05-19-2024 Lymphocytes (Bld) [#/Vol] Lymphocytes [#/volume] in Blood by Automated count 1.00-4.8 [facility] Lymphocytes/100 WBC Auto (Bl d)Ordered By: Glenn Abdullahi on 05-19-2024 Lymphocytes/100 WBC (Bld) Lymphocytes/100 leukocytes in Blood by Automated count . [facility] MCH Auto (RBC) [Entitic mass ]Ordered By: Glenn Abdullahi on 05-19-2024 MCH (RBC) [Entitic mass] MCH [Entitic mass] by Automated count 24.7-34.3 [facility] MCHC Auto (RBC) [Mass/Vol]Or dered By: Glenn Abdullahi on 05-19-2024 MCHC (RBC) [Mass/Vol] MCHC [Mass/volume] by Automated count 32.0-35.0 [facility] MCV Auto (RBC) [Entitic vol] Ordered By: Glenn Abdullahi on 05-19-2024 MCV (RBC) [Entitic vol] MCV [Entitic volume] by Automated count 80-100 [facility] Magnesiumon 05-19-2024 Magnesium [Mass/Vol] 1.4 mg/dL Low 1.9-2.7 [facility] Comment on above: Performed By: #### H EPATIC, CBC, BMP, LIPASE #### [facility] [address] [id number] [facility] Magnesium [Mass/volume] in S mayte or PlasmaOrdered By: Glenn Abdullahi on 05-19-2024 Magnesium [Mass/Vol] Magnesium [Mass/vol ume] in Serum or Plasma Low 1.9-2.7 [facility] Monocyte distribution width [Entitic volume] in Blood by AutomatedOrdered By: Glenn Abdullahi on 05-19-2024 Monocyte distribution width Auto (Bld) [Entitic vol] Monocyte distribution width [Entitic volume] in Blood by Automated 0.00-20.00 [facility] Monocytes Auto (Bld) [#/Vol] Ordered By: Glenn Abdullahi on 05-19-2024 Monocytes (Bld) [#/Vol] Automated blood monocyte count 0.0-0.8 [facility] Monocytes/100 WBC Auto (Bld) Ordered By: Glenn Abdullahi on 05-19-2024 Monocytes/100 WBC (Bld) Automated monocyte % . [facility] Mucus [Presence] in Urine by AutomatedOrdered By: Glenn Abdullahi on 05-19-2024 Mucus Auto Ql (U) Mucus [Presence] in Urine by Automated [facility] Neutrophils Auto (Bld) [#/Vo l]Ordered By: Glenn Abdullahi on 05-19-2024 Neutrophils (Bld) [#/Vol] Neutrophils [#/volume] in Blood by Automated count 1.8-7.7 [facility] Neutrophils/100 WBC Auto (Bl d)Ordered By: Glenn Abdullahi on 05-19-2024 Neutrophils/100 WBC (Bld) Automated neutrophil % . [facility] Nitrite Test strip Ql (U)Ord ered By: Glenn Abdullahi on 05-19-2024 Nitrite Ql (U) Nitrite [Presence] i n Urine by Test strip Negative [facility] No Panel InformationOrdered By: Glenn Abdullahi on 05-19-2024 Estimated GFR (CKD-EPI) > 60.0 mL/Min [facility] Creatinine Clearance (Chem 143.53 [facility] Nucleated erythrocytes [Pres ence] in Blood by Automated countOrdered By: Glenn Abdullahi on 05-19-2024 Nucleated RBC Auto Ql (Bld) Nucleated erythrocytes [Presence] in Blood by Automated count 0-0.5 [facility] Opiates [Presence] in Urine by Screen methodOrdered By: Glenn Abdullahi on 05-19-2024 Opiates Screen Ql (U) Opiates [Presence] in Urine by Screen method Negative [facility] Phencyclidine Screen Ql (U)O rdered By: Glenn Abdullahi on 05-19-2024 Phencyclidine Ql (U) Phencyclidine [Pres ence] in Urine by Screen method Negative [facility] Platelet mean volume Auto (B ld) [Entitic vol]Ordered By: Glenn Abdullahi on 05-19-2024 Platelet mean volume (Bld) [Entitic vol] Platelet mean volume [Entitic volume] in Blood by Automated count High 6.3-10.7 [facility] Platelets Auto (Bld) [#/Vol] Ordered By: Glenn Abdullahi on 05-19-2024 Platelets (Bld) [#/Vol] Platelets [#/volume] in Blood by Automated count 150-450 [facility] Potassium [Moles/volume] in Serum or PlasmaOrdered By: Glenn Abdullahi on 05-19-2024 Potassium [Moles/Vol] Potassium [Moles/v olume] in Serum or Plasma Low 3.5-5.1 [facility] Protein Test strip (U) [Mass /Vol]Ordered By: Glenn Abdullahi on 05-19-2024 Protein (U) [Mass/Vol] Protein [Mass/volume] in Urine by Test strip Negative [facility] Protein [Mass/volume] in Ser um or PlasmaOrdered By: Glenn Abdullahi on 05-19-2024 Protein [Mass/Vol] Protein [Mass/volume ] in Serum or Plasma 6.4-8.9 [facility] RBC Auto (Bld) [#/Vol]Ordere d By: Glenn Abdullahi on 05-19-2024 RBC (Bld) [#/Vol] Erythrocytes [#/volu me] in Blood by Automated count 3.60-5.00 [facility] Serum or plasma albumin/glob ulin mass ratioOrdered By: Glenn Abdullahi on 05-19-2024 Albumin/Globulin [Mass ratio] Serum or plasma albumin/globulin mass ratio [facility] Serum or plasma anion gap de terminationOrdered By: Glenn Abdullahi on 05-19-2024 Anion gap [Moles/Vol] Serum or plasma an ion gap determination 6.0-15.0 [facility] Serum or plasma non-glucuron idated bilirubin measurement (mass/volume)Ordered By: Glenn Abdullahi on 05-19-2024 Bilirubin.indirect [Mass/Vol] Serum or plasma non-glucuronidated bilirubin measurement (mass/volume) [facility] Sodium [Moles/volume] in Ser um or PlasmaOrdered By: Glenn Abdullahi on 05-19-2024 Sodium [Moles/Vol] Sodium [Moles/volume ] in Serum or Plasma 136-145 [facility] Specific gravity Test strip (U) [Rel density]Ordered By: Glenn Abdullahi 05-19-2024 Specific gravity (U) [Rel density] Specific gravity of Urine by Test strip 1.001-1.03 0 [facility] Urea nitrogen [Mass/volume] in Serum or PlasmaOrdered By: Glenn Abdullahi on 05-19-2024 Urea nitrogen [Mass/Vol] Urea nitrogen [Mass/volume] in Serum or Plasma 7-25 [facility] Urobilinogen Test strip (U) [Mass/Vol]Ordered By: Glenn Abdullahi on 05-19-2024 Urobilinogen (U) [Mass/Vol] Urobilinogen [Mass/volume] in Urine by Test strip Normal [facility] WBC Auto (Bld) [#/Vol]Ordere d By: Glenn Abdullahi 05-19-2024 WBC (Bld) [#/Vol] Leukocytes [#/volume ] in Blood by Automated count 3.8-11.6 [facility] pH Test strip (U)Ordered By: Glenn Abdullahi 05-19-2024 pH (U) pH of Urine by Test strip 5.0-9.0 [facility] Alanine aminotransferase [En zymatic activity/volume] in Serum or PlasmaOrdered By: Glenn Abdullahi 05-16-2024 ALT [Catalytic activity/Vol] Alanine aminotransferase [Enzymatic activity/volume] in Serum or Plasma 7-52 [facility] Albumin [Mass/volume] in Ser um or Plasma by Bromocresol green (BCG) dye binding methoOrdered By: Glenn Abdullahi on 05-16-2024 Albumin BCG dye [Mass/Vol] Albumin [Mass/volume] in Serum or Plasma by Bromocresol green (BCG) dye binding metho 3.5-5.7 [facility] Alkaline phosphatase [Enzyma tic activity/volume] in Serum or PlasmaOrdered By: Glenn Abdullahi on 05-16-2024 ALP [Catalytic activity/Vol] Alkaline phosphatase [Enzymatic activity/volume] in Serum or Plasma 34-104 [facility] Appearance of UrineOrdered B y: Glenn Abdullahi on 05-16-2024 Appearance (U) Urine appearance Clear [facility] Aspartate aminotransferase [ Enzymatic activity/volume] in Serum or PlasmaOrdered By: Glenn Abdullahi on 05-16-2024 AST [Catalytic activity/Vol] Aspartate aminotransferase [Enzymatic activity/volume] in Serum or Plasma 13-39 [facility] Basophils Auto (Bld) [#/Vol] Ordered By: Glenn Abdullahi on 05-16-2024 Basophils (Bld) [#/Vol] Automated basophil count 0.0-0.2 [facility] Basophils/100 WBC Auto (Bld) Ordered By: Glenn Abdullahi on 05-16-2024 Basophils/100 WBC (Bld) Automated basophil % . [facility] Bilirubin Test strip Ql (U)O rdered By: Glenn Abdullahi on 05-16-2024 Bilirubin Ql (U) Bilirubin.total [Pre sence] in Urine by Test strip Negative [facility] Bilirubin.direct [Mass/volum e] in Serum or PlasmaOrdered By: Glenn Abdullahi on 05-16-2024 Bilirubin.direct [Mass/Vol] Bilirubin.direct [Mass/volume] in Serum or Plasma Low 0.03-0.18 [facility] Comment on above: If the DBIL is less than 0.1, IBIL is not able to becalculated. Bilirubin.total [Mass/volume ] in Serum or PlasmaOrdered By: Glenn Abdullahi on 05-16-2024 Bilirubin [Mass/Vol] Bilirubin.total [Mass/volume] in Serum or Plasma 0.3-1.0 [facility] Calcium [Mass/volume] in Ser um or PlasmaOrdered By: Glenn Abdullahi on 05-16-2024 Calcium [Mass/Vol] Calcium [Mass/volume ] in Serum or Plasma 8.6-10.3 [facility] Carbon dioxide, total [Moles /volume] in Serum or PlasmaOrdered By: Glenn Abdullahi on 05-16-2024 CO2 [Moles/Vol] Carbon dioxide, tota l [Moles/volume] in Serum or Plasma Low 21.0-31.0 [facility] Chloride [Moles/volume] in S mayte or PlasmaOrdered By: Glenn Abdullahi on 05-16-2024 Chloride [Moles/Vol] Chloride [Moles/vol ume] in Serum or Plasma 98-107 [facility] Choriogonadotropin.beta subu nit [Units/volume] in Serum or PlasmaOrdered By: Glenn Abdullahi on 05-16-2024 HCG.beta subunit Qn Choriogonadotropin.b eta subunit [Units/volume] in Serum or Plasma [facility] Comment on above: Approximate Approxim ate hCG Gestational Age Range (mIU/ml) (weeks)0.2-1 5-50 1-2 50-500 2-3 100-5,000 3-4 500-10,000 4-5 1,000-50,000 5-6 10,000-100,000 6-8 15,000-200,000 8-12 10,000-100,000 Color Auto (U)Ordered By: Toro Abdullahi on 05-16-2024 Color (U) Color of Urine by Auto [facility] Complete Blood Count Auto Di ffon 05-16-2024 Basophils (Bld) [#/Vol] 0.0 10*3/uL Normal 0.0-0.2 [facility] Comment on above: Result Comment: PERF ORMED BY: [place] [address] PATHOLOGIST PROCESSING SPECIALIST SARAH ANDREWS M.D. Performed By: #### H EPATIC, CBC, BMP, LIPASE #### [address] Basophils/100 WBC (Bld) 0.0 % Normal . [facility] Comment on above: Performed By: #### H EPATIC, CBC, BMP, LIPASE #### [address] Eosinophils (Bld) [#/Vol] 0.0 10*3/uL Normal 0.0-0.45 [facility] Comment on above: Performed By: #### H EPATIC, CBC, BMP, LIPASE #### [address] Eosinophils/100 WBC (Bld) 0.0 % Normal . [facility] Comment on above: Performed By: #### H EPATIC, CBC, BMP, LIPASE #### [address] Erythrocyte distribution width (RBC) [Ratio] 13.7 % Normal 11.9-15.3 [facility] Comment on above: Performed By: #### H EPATIC, CBC, BMP, LIPASE #### [address] Hematocrit (Bld) [Volume fraction] 33.8 % Low 34.0-46.4 [facility] Comment on above: Performed By: #### H EPATIC, CBC, BMP, LIPASE #### [address] Hemoglobin (Bld) [Mass/Vol] 11.7 g/dL Low 11.8-15.4 [facility] Comment on above: Performed By: #### H EPATIC, CBC, BMP, LIPASE #### [address] Lymphocytes (Bld) [#/Vol] 0.6 10*3/uL Low 1.00-4.8 [facility] Comment on above: Performed By: #### H EPATIC, CBC, BMP, LIPASE #### [address] Lymphocytes/100 WBC (Bld) 4.6 % Normal . [facility] Comment on above: Performed By: #### H EPATIC, CBC, BMP, LIPASE #### [address] MCH (RBC) [Entitic mass] 29.7 pg Normal 24.7-34.3 [facility] Comment on above: Performed By: #### H EPATIC, CBC, BMP, LIPASE #### [address] MCV (RBC) [Entitic vol] 86.3 fL Normal 80-100 [facility] Comment on above: Performed By: #### H EPATIC, CBC, BMP, LIPASE #### [address] Mean Corpuscular HGB Conc 34.5 g/dL Normal 32.0-35.0 [facility] Comment on above: Performed By: #### H EPATIC, CBC, BMP, LIPASE #### [address] Monocyte Distribution Width Not performed Normal 0.00-20.00 [facility] Comment on above: Result Comment: Unab le to calculate MDW because the Absolute Monocyte Count is <0.8. Performed By: #### H EPATIC, CBC, BMP, LIPASE #### [address] Monocytes (Bld) [#/Vol] 0.2 10*3/uL Normal 0.0-0.8 [facility] Comment on above: Performed By: #### H EPATIC, CBC, BMP, LIPASE #### [address] Monocytes/100 WBC (Bld) 1.2 % Normal . [facility] Comment on above: Performed By: #### H EPATIC, CBC, BMP, LIPASE #### [address] Neutrophils (Bld) [#/Vol] 13.0 10*3/uL High 1.8-7.7 [facility] Comment on above: Performed By: #### H EPATIC, CBC, BMP, LIPASE #### [address] Neutrophils/100 WBC (Bld) 94.2 % Normal . [facility] Comment on above: Performed By: #### H EPATIC, CBC, BMP, LIPASE #### [address] NRBC% 0.0 /100{WBC} Normal 0-0.5 [facility] Comment on above: Performed By: #### H EPATIC, CBC, BMP, LIPASE #### [address] Platelet mean volume (Bld) [Entitic vol] 11.1 fL High 6.3-10.[address] [facility] Comment on above: Performed By: #### H EPATIC, CBC, BMP, LIPASE #### [address] Platelets (Bld) [#/Vol] 186 10*3/uL Normal 150-450 [facility] Comment on above: Performed By: #### H EPATIC, CBC, BMP, LIPASE #### [address] RBC (Bld) [#/Vol] 3.92 10*6/uL Normal 3.60-5.00 [facility] Comment on above: Performed By: #### H EPATIC, CBC, BMP, LIPASE #### [address] WBC (Bld) [#/Vol] 13.8 10*3/uL High 3.8-11.6 [facility] Comment on above: Performed By: #### H EPATIC, CBC, BMP, LIPASE #### [address] Comprehensive Metabolic Pane blanquita 05-16-2024 Albumin [Mass/Vol] 4.2 g/dL Normal 3.5-5.7 [facility] Comment on above: Performed By: #### H EPATIC, CBC, BMP, LIPASE #### [address] Albumin/Globulin [Mass ratio] 1.2 {ratio} Normal [facility] Comment on above: Performed By: #### H EPATIC, CBC, BMP, LIPASE #### [address] ALP [Catalytic activity/Vol] 46 U/L Normal 34-104 [facility] Comment on above: Performed By: #### H EPATIC, CBC, BMP, LIPASE #### [address] ALT [Catalytic activity/Vol] 9 U/L Normal 7-52 [facility] Comment on above: Performed By: #### H EPATIC, CBC, BMP, LIPASE #### [address] Anion gap [Moles/Vol] 17.4 mmol/L High 6.0-15.0 [facility] Comment on above: Performed By: #### H EPATIC, CBC, BMP, LIPASE #### [address] AST [Catalytic activity/Vol] 17 U/L Normal 13-39 [facility] Comment on above: Performed By: #### H EPATIC, CBC, BMP, LIPASE #### [address] Bilirubin [Mass/Vol] 0.4 mg/dL Normal 0.3-1.0 [facility] Comment on above: Performed By: #### H EPATIC, CBC, BMP, LIPASE #### [address] Calcium [Mass/Vol] 9.4 mg/dL Normal 8.6-10.3 [facility] Comment on above: Performed By: #### H EPATIC, CBC, BMP, LIPASE #### [place] [address] [place] Chloride [Moles/Vol] 106 mmol/L Normal 98-107 [facility] Comment on above: Performed By: #### H EPATIC, CBC, BMP, LIPASE #### [place] [address] [place] CO2 [Moles/Vol] 16.0 mmol/L Low 21.0-31.0 [facility] Comment on above: Performed By: #### H EPATIC, CBC, BMP, LIPASE #### [address] Creatinine [Mass/Vol] 0.52 mg/dL Low 0.60-1.20 [facility] Comment on above: Performed By: #### H EPATIC, CBC, BMP, LIPASE #### [address] Creatinine Clr Calc Pharmacy 146.48 Normal [facility] Comment on above: Performed By: #### H EPATIC, CBC, BMP, LIPASE #### [address] GFR/1.73 sq M.predicted MDRD (S/P/Bld) [Vol rate/Area] mL/min/{1.73_m2} Normal [facility] Comment on above: Performed By: #### H EPATIC, CBC, BMP, LIPASE #### [address] Globulin (S) [Mass/Vol] 3.4 g/dL Normal [facility] Comment on above: Performed By: #### H EPATIC, CBC, BMP, LIPASE #### [address] Glucose [Mass/Vol] 160 mg/dL High 70-100 [facility] Comment on above: Result Comment: [facility] Glucose Reference Range is dependent on time and content of last meal. Glucose of more than 200 mg/dL in a nonstressed, ambulatory subject supports the diagnosis of Diabetes Mellitus. ADA recommended reference range Performed By: #### H EPATIC, CBC, BMP, LIPASE #### [address] Potassium [Moles/Vol] 3.4 mmol/L Low 3.5-5.1 [facility] Comment on above: Result Comment: Hemo lysis is present at a level that could interfere with the result. Contact lab if redraw is required Performed By: #### H EPATIC, CBC, BMP, LIPASE #### [facility] [address] [id number] [place] Protein [Mass/Vol] 7.6 g/dL Normal 6.4-8.9 [facility] Comment on above: Performed By: #### H EPATIC, CBC, BMP, LIPASE #### [facility] [address] [place] [address] [place] Sodium [Moles/Vol] 136 mmol/L Normal 136-145 [facility] Comment on above: Performed By: #### H EPATIC, CBC, BMP, LIPASE #### [facility] [address] [place] [address] [place] Urea nitrogen [Mass/Vol] 9 mg/dL Normal 7-25 [facility] Comment on above: Performed By: #### H EPATIC, CBC, BMP, LIPASE #### [facility] [address] Creatinine [Mass/volume] in Serum or PlasmaOrdered By: Glenn Abdullahi on 05-16-2024 Creatinine [Mass/Vol] Creatinine [Mass/v olume] in Serum or Plasma Low 0.60-1.20 [facility] Eosinophils Auto (Bld) [#/Vo l]Ordered By: Glenn Abdullahi on 05-16-2024 Eosinophils (Bld) [#/Vol] Automated eosinophil count 0.0-0.45 [facility] Eosinophils/100 WBC Auto (Bl d)Ordered By: Glenn Abdullahi on 05-16-2024 Eosinophils/100 WBC (Bld) Automated eosinophil % . [facility] Erythrocyte distribution wid th Auto (RBC) [Ratio]Ordered By: Glenn Abdullahi on 05-16-2024 Erythrocyte distribution width (RBC) [Ratio] Erythrocyte distribution width [Ratio] by Automated count 11.9-15.3 [facility] Globulin Calc (S) [Mass/Vol] Ordered By: Glenn Abdullahi on 05-16-2024 Globulin (S) [Mass/Vol] Serum globulin measurement by calculation (mass/volume) [facility] Glucose [Mass/volume] in Ser um or PlasmaOrdered By: Glenn Abdullahi on 05-16-2024 Glucose [Mass/Vol] Glucose [Mass/volume ] in Serum or Plasma High 70-100 [facility] Comment on above: ADA recommended refe rence [...] in Urine by Test strip High Normal [facility] HCG,Quantitativeon HCG,Quantitative 87938.00 m[iU]/mL Normal T [facility] Comment on above: Result Comment: Appr oximate Approximate hCG Gestational Age Range (mIU/ml) (weeks) 0.2-1 5-50 1-2 50-500 2-3 100-5,000 3-4 500-10,000 4-5 1,000-50,000 5-6 10,000-100,000 6-8 15,000-200,000 8-12 10,000-100,000 PERFORMED BY: [place] [address] PATHOLOGIST PROCESSING SPECIALIST SARAH ANDREWS M.D. Performed By: #### H EPATIC, CBC, BMP, LIPASE #### [address] Hematocrit Auto (Bld) [Volum e fraction]Ordered By: Glenn Abdullahi on 05-16-2024 Hematocrit (Bld) [Volume fraction] Hematocrit [Volume Fraction] of Blood by Automated count Low 34.0-46.4 [facility] Hemoglobin Test strip Ql (U) Ordered By: Glenn Abdullahi on 05-16-2024 Hemoglobin Ql (U) Hemoglobin [Presence ] in Urine by Test strip Negative [facility] Hemoglobin [Mass/volume] in BloodOrdered By: Glenn Abdullahi on 05-16-2024 Hemoglobin (Bld) [Mass/Vol] Hemoglobin [Mass/volume] in Blood Low 11.8-15.4 [facility] Hepatic Panelon 05-16-2024 Bilirubin,Indirect 0.4 mg/dL Normal [facility] Comment on above: Performed By: #### H EPATIC, CBC, BMP, LIPASE #### [facility] [address] Bilirubin.indirect [Mass/Vol] 0.00 mg/dL Low 0.03-0.18 [facility] Comment on above: Result Comment: If t he DBIL is less than 0.1, IBIL is not able to be calculated. Performed By: #### H EPATIC, CBC, BMP, LIPASE #### [address] Ketones Test strip Ql (U)Ord ered By: Glenn Abdullahi on 05-16-2024 Ketones Ql (U) Ketones [Presence] i n Urine by Test strip High Negative [facility] Leukocyte esterase [Presence ] in Urine by Test stripOrdered By: Glenn Abdullahi on 05-16-2024 Leukocyte esterase Test strip Ql (U) Leukocyte esterase [Presence] in Urine by Test strip Negative [facility] Leukocytes [#/volume] correc rossy for nucleated erythrocytes in Blood by Automated counOrdered By: Glenn Abdullahi on 05-16-2024 WBC corrected for nucl RBC Auto (Bld) [#/Vol] Leukocytes [#/volume] corrected for nucleated erythrocytes in Blood by Automated coun High 3.8-11.6 [facility] Lipaseon 05-16-2024 Lipase [Catalytic activity/Vol] 25.0 U/L Normal 11.0-82.0 [facility] Comment on above: Performed By: #### H EPATIC, CBC, BMP, LIPASE #### [place] [address] [place] Lipase [Enzymatic activity/v olume] in Serum or PlasmaOrdered By: Glenn Abdullahi on 05-16-2024 Lipase [Catalytic activity/Vol] Lipase [Enzymatic activity/volume] in Serum or Plasma 11.0-82.0 [facility] Lymphocytes Auto (Bld) [#/Vo l]Ordered By: Glenn Abdullahi on 05-16-2024 Lymphocytes (Bld) [#/Vol] Lymphocytes [#/volume] in Blood by Automated count Low 1.00-4.8 [facility] Lymphocytes/100 WBC Auto (Bl d)Ordered By: Glenn Abdullahi on 05-16-2024 Lymphocytes/100 WBC (Bld) Lymphocytes/100 leukocytes in Blood by Automated count . [facility] MCH Auto (RBC) [Entitic mass ]Ordered By: Glenn Abdullahi on 05-16-2024 MCH (RBC) [Entitic mass] MCH [Entitic mass] by Automated count 24.7-34.3 [facility] MCHC Auto (RBC) [Mass/Vol]Or dered By: Glenn Abdullahi on 05-16-2024 MCHC (RBC) [Mass/Vol] MCHC [Mass/volume] by Automated count 32.0-35.0 [facility] MCV Auto (RBC) [Entitic vol] Ordered By: Glenn Abdullahi on 05-16-2024 MCV (RBC) [Entitic vol] MCV [Entitic volume] by Automated count 80-100 [facility] Monocyte distribution width [Entitic volume] in Blood by AutomatedOrdered By: Glenn Abdullahi on 05-16-2024 Monocyte distribution width Auto (Bld) [Entitic vol] Monocyte distribution width [Entitic volume] in Blood by Automated 0.00-20.00 [facility] Comment on above: Unable to calculate MDW because the Absolute Monocyte Count is <0.8. Monocytes Auto (Bld) [#/Vol] Ordered By: Glenn Abdullahi on 05-16-2024 Monocytes (Bld) [#/Vol] Automated blood monocyte count 0.0-0.8 [facility] Monocytes/100 WBC Auto (Bld) Ordered By: Glenn Abdullahi on 05-16-2024 Monocytes/100 WBC (Bld) Automated monocyte % . [facility] Neutrophils Auto (Bld) [#/Vo l]Ordered By: Glenn Abdullahi on 05-16-2024 Neutrophils (Bld) [#/Vol] Neutrophils [#/volume] in Blood by Automated count High 1.8-7.7 [facility] [facility] Neutrophils/100 WBC Auto (Bl d)Ordered By: Glenn Abdullahi on 05-16-2024 Neutrophils/100 WBC (Bld) Automated neutrophil % . [facility] Nitrite Test strip Ql (U)Ord ered By: Glenn Abdullahi on 05-16-2024 Nitrite Ql (U) Nitrite [Presence] i n Urine by Test strip Negative [facility] No Panel InformationOrdered By: Glenn Abdullahi on 05-16-2024 Estimated GFR (CKD-EPI) > 60.0 mL/Min [facility] Creatinine Clearance (Chem 146.48 [facility] Nucleated erythrocytes [Pres ence] in Blood by Automated countOrdered By: Glenn Abdullahi on 05-16-2024 Nucleated RBC Auto Ql (Bld) Nucleated erythrocytes [Presence] in Blood by Automated count 0-0.5 [facility] Platelet mean volume Auto (B ld) [Entitic vol]Ordered By: Glenn Abdullahi on 05-16-2024 Platelet mean volume (Bld) [Entitic vol] Platelet mean volume [Entitic volume] in Blood by Automated count High 6.3-10.7 [facility] Platelets Auto (Bld) [#/Vol] Ordered By: Glenn Abdullahi on 05-16-2024 Platelets (Bld) [#/Vol] Platelets [#/volume] in Blood by Automated count 150-450 [facility] Potassium [Moles/volume] in Serum or PlasmaOrdered By: Glenn Abdullahi 05-16-2024 Potassium [Moles/Vol] Potassium [Moles/v olume] in Serum or Plasma Low 3.5-5.1 [facility] Comment on above: Hemolysis is present at a level that could interfere with the result.Contact lab if redraw is required Protein Test strip (U) [Mass /Vol]Ordered By: Glenn Abdullahi on 05-16-2024 Protein (U) [Mass/Vol] Protein [Mass/volume] in Urine by Test strip Negative [facility] Protein [Mass/volume] in Ser um or PlasmaOrdered By: Glenn Abdullahi 05-16-2024 Protein [Mass/Vol] Protein [Mass/volume ] in Serum or Plasma 6.4-8.9 [facility] RBC Auto (Bld) [#/Vol]Ordere d By: Glenn Abdullahi 05-16-2024 RBC (Bld) [#/Vol] Erythrocytes [#/volu me] in Blood by Automated count 3.60-5.00 [facility] Serum or plasma albumin/glob ulin mass ratioOrdered By: Glenn Abdullahi on 05-16-2024 Albumin/Globulin [Mass ratio] Serum or plasma albumin/globulin mass ratio [facility] Serum or plasma anion gap de terminationOrdered By: Glenn Abdullahi on 05-16-2024 Anion gap [Moles/Vol] Serum or plasma an ion gap determination High 6.0-15.0 [facility] Serum or plasma non-glucuron idated bilirubin measurement (mass/volume)Ordered By: Glenn Abdullahi on 05-16-2024 Bilirubin.indirect [Mass/Vol] Serum or plasma non-glucuronidated bilirubin measurement (mass/volume) [facility] Sodium [Moles/volume] in Ser um or PlasmaOrdered By: Glenn Abdullahi on 05-16-2024 Sodium [Moles/Vol] Sodium [Moles/volume ] in Serum or Plasma 136-145 [facility] Specific gravity Test strip (U) [Rel density]Ordered By: Glenn Abdullahi on 05-16-2024 Specific gravity (U) [Rel density] Specific gravity of Urine by Test strip 1.001-1.03 0 [facility] Urea nitrogen [Mass/volume] in Serum or PlasmaOrdered By: Glenn Abdullahi on 05-16-2024 Urea nitrogen [Mass/Vol] Urea nitrogen [Mass/volume] in Serum or Plasma 7-25 [facility] Urinalysison 05-16-2024 Appearance (U) Clear Normal Clear [facility] Comment on above: Order Comment: Name Collection Type:: Clean-Voided Midstream Performed By: #### U A #### [facility] [address] [place] [address] [place] Bilirubin,Urine Negative Normal Negative [facility] Comment on above: Order Comment: Name Collection Type:: Clean-Voided Midstream Performed By: #### U A #### [facility] [address] [place] [id number] [place] Color (U) Light-Yellow Normal Yellow [facility] Comment on above: Order Comment: Name Collection Type:: Clean-Voided Midstream Performed By: #### U A #### [address] Glucose Ql (U) 500 mg/dL High Normal [facility] Comment on above: Order Comment: Name Collection Type:: Clean-Voided Midstream Performed By: #### U A #### [address] Ketones Ql (U) 4+ High Negative [facility] Comment on above: Order Comment: Name Collection Type:: Clean-Voided Midstream Performed By: #### U A #### [address] Leukocyte esterase Test strip Ql (U) Negative Normal Negative [facility] Comment on above: Order Comment: Name Collection Type:: Clean-Voided Midstream Performed By: #### U A #### [place] [address] [place] Nitrite,Urine Negative Normal Negative [facility] Comment on above: Order Comment: Name Collection Type:: Clean-Voided Midstream Performed By: #### U A #### [place] [address] [place] Occult Blood,Urine Negative Normal Negative [facility] Comment on above: Order Comment: Name Collection Type:: Clean-Voided Midstream Result Comment: PERF ORMED BY: [place] [address] PATHOLOGIST PROCESSING SPECIALIST SARAH ANDREWS M.D. Performed By: #### U A #### [place] [address] [place] pH (U) 8.0 [pH] Normal 5.0-9.0 [facility] Comment on above: Order Comment: Name Collection Type:: Clean-Voided Midstream Performed By: #### U A #### [place] [address] [place] Protein,Urine Negative Normal Negative [facility] Comment on above: Order Comment: Name Collection Type:: Clean-Voided Midstream Performed By: #### U A #### [facility] [address] Specificy [place],Urine 1.020 Normal 1.001-1.03 0 [facility] Comment on above: Order Comment: Name Collection Type:: Clean-Voided Midstream Performed By: #### U A #### [facility] [address] Urobilinogen,Urine Normal Normal Normal [facility] Comment on above: Order Comment: Name Collection Type:: Clean-Voided Midstream Performed By: #### U A #### [facility] [address] Urobilinogen Test strip (U) [Mass/Vol]Ordered By: Glenn Abudllahi on 05-16-2024 Urobilinogen (U) [Mass/Vol] Urobilinogen [Mass/volume] in Urine by Test strip Normal [facility] WBC Auto (Bld) [#/Vol]Ordere d By: Glenn Abdullahi on 05-16-2024 WBC (Bld) [#/Vol] Leukocytes [#/volume ] in Blood by Automated count High 3.8-11.6 [facility] pH Test strip (U)Ordered By: Glenn Abdullahi on 05-16-2024 pH (U) pH of Urine by Test strip 5.0-9.0 [facility] Urinalysis macro (dipstick) panel (U)Ordered By: Gloria Garcias on 04-24-2024 Bilirubin, UA Negative Negative - 4(70) +++ mg/dL [facility] Work Phone: Blood, UA Negative Negative - 50 Josiah/mcL [facility] Work Phone: Clarity, UA Clear [facility] Work Phone: Color, UA Yellow [facility] Work Phone: Glucose, UA Negative Negative - 2000(110) ++++ mg/dL [facility] Work Phone: Interpretation and review of laboratory results Abnormal [facility] Work Phone: Ketones, UA Negative Negative - 160(16) ++++ mg/dL [facility] Work Phone: Leukocytes, UA Negative Negative - 500+++ Archana/mcL [facility] Work Phone: Nitrite, UA Negative Negative - Positive [facility] Work Phone: pH, UA 6 5 - 9 [facility] Work Phone: Protein, UA Negative Negative - 2000(20) ++++ mg/dL [facility] Work Phone: Spec Grav, UA 1.03 1 - 1.03 [facility] Work Phone: Urobilinogen, UA 1.0 0.2 - 12 mg/dL [facility] Work Phone: [facility] Work Phone: Alanine aminotransferase [En zymatic activity/volume] in Serum or PlasmaOrdered By: Parminder Serrano on 04-05-2024 ALT [Catalytic activity/Vol] Alanine aminotransferase [Enzymatic activity/volume] in Serum or Plasma 7-52 [facility] Albumin [Mass/volume] in Ser um or Plasma by Bromocresol green (BCG) dye binding methoOrdered By: Parminder Serrano on 04-05-2024 Albumin BCG dye [Mass/Vol] Albumin [Mass/volume] in Serum or Plasma by Bromocresol green (BCG) dye binding metho 3.5-5.7 [facility] Alkaline phosphatase [Enzyma tic activity/volume] in Serum or PlasmaOrdered By: Parminder Serrano on 04-05-2024 ALP [Catalytic activity/Vol] Alkaline phosphatase [Enzymatic activity/volume] in Serum or Plasma 34-104 [facility] Appearance of UrineOrdered B y: Parminder Serrano on 04-05-2024 Appearance (U) Urine appearance Clear [facility] Aspartate aminotransferase [ Enzymatic activity/volume] in Serum or PlasmaOrdered By: Parminder Serrano on 04-05-2024 AST [Catalytic activity/Vol] Aspartate aminotransferase [Enzymatic activity/volume] in Serum or Plasma 13-39 [facility] Bacteria [Presence] in Urine by AutomatedOrdered By: Parminder Serrano on 04-05-2024 Bacteria Auto Ql (U) Bacteria [Presence] in Urine by Automated None Seen [facility] Basophils Auto (Bld) [#/Vol] Ordered By: Parminder Serrano on 04-05-2024 Basophils (Bld) [#/Vol] Automated basophil count 0.0-0.2 [facility] Basophils/100 WBC Auto (Bld) Ordered By: Parminder Serrano on 04-05-2024 Basophils/100 WBC (Bld) Automated basophil % . [facility] Bilirubin Test strip Ql (U)O rdered By: Parminder Serrano on 04-05-2024 Bilirubin Ql (U) Bilirubin.total [Pre sence] in Urine by Test strip Negative [facility] Bilirubin.total [Mass/volume ] in Serum or PlasmaOrdered By: Parminder Serrano on 04-05-2024 Bilirubin [Mass/Vol] Bilirubin.total [Mass/volume] in Serum or Plasma 0.3-1.0 [facility] BioFire Not Detectedon 04-05 BioFire Not Detected Not detected Normal Not Detecte [facility] Comment on above: Result Comment: This is a duplicate RP2.1 COVID (PCR) result to be used for statistical tracking purpose only. PERFORMED BY: [place] [address] PATHOLOGIST PROCESSING SPECIALIST SARAH ANDREWS M.D. Performed By: #### A DDONUAPEPE, URDS, CUU #### [address] COVID-19 Detected/Not Detect edOrdered By: Parminder Serrano on 04-05-2024 SARS-CoV-2 (COVID-19) RNA TORRES+non-probe Ql (Nph) Not detected Not Detecte [facility] Comment on above: This is a duplicate RP2.1 COVID (PCR) result to be used for statistical tracking purpose only. Calcium [Mass/volume] in Ser um or PlasmaOrdered By: Parminder Serrano on 04-05-2024 Calcium [Mass/Vol] Calcium [Mass/volume ] in Serum or Plasma 8.6-10.3 [facility] Carbon dioxide, total [Moles /volume] in Serum or PlasmaOrdered By: Parminder Serrano on 04-05-2024 CO2 [Moles/Vol] Carbon dioxide, tota l [Moles/volume] in Serum or Plasma Low 21.0-31.0 [facility] Chloride [Moles/volume] in S mayte or PlasmaOrdered By: Parminder Serrano on 04-05-2024 Chloride [Moles/Vol] Chloride [Moles/vol ume] in Serum or Plasma 98-107 [facility] Color Auto (U)Ordered By: Eduar Serrano on 04-05-2024 Color (U) Color of Urine by Auto [facility] Blood Count Auto Di ffon 04-05-2024 Basophils (Bld) [#/Vol] 0.0 10*3/uL Normal 0.0-0.2 [facility] Comment on above: Result Comment: PERF ORMED BY: [place] [address] PATHOLOGIST PROCESSING SPECIALIST SARAH ANDREWS M.D. Performed By: #### H EPATIC, CBC, BMP, LIPASE #### [address] Basophils/100 WBC (Bld) 0.2 % Normal . [facility] Comment on above: Performed By: #### H EPATIC, CBC, BMP, LIPASE #### [address] Eosinophils (Bld) [#/Vol] 0.0 10*3/uL Normal 0.0-0.45 [facility] Comment on above: Performed By: #### H EPATIC, CBC, BMP, LIPASE #### [address] Eosinophils/100 WBC (Bld) 0.0 % Normal . [facility] Comment on above: Performed By: #### H EPATIC, CBC, BMP, LIPASE #### [address] Erythrocyte distribution width (RBC) [Ratio] 14.5 % Normal 11.9-15.3 [facility] Comment on above: Performed By: #### H EPATIC, CBC, BMP, LIPASE #### [address] Hematocrit (Bld) [Volume fraction] 34.4 % Normal 34.0-46.4 [facility] Comment on above: Performed By: #### H EPATIC, CBC, BMP, LIPASE #### [address] Hemoglobin (Bld) [Mass/Vol] 11.4 g/dL Low 11.8-15.4 [facility] Comment on above: Performed By: #### H EPATIC, CBC, BMP, LIPASE #### [address] Lymphocytes (Bld) [#/Vol] 0.8 10*3/uL Low 1.00-4.8 [facility] Comment on above: Performed By: #### H EPATIC, CBC, BMP, LIPASE #### [address] Lymphocytes/100 WBC (Bld) 6.0 % Normal . [facility] Comment on above: Performed By: #### H EPATIC, CBC, BMP, LIPASE #### [address] MCH (RBC) [Entitic mass] 28.9 pg Normal 24.7-34.3 [facility] Comment on above: Performed By: #### H EPATIC, CBC, BMP, LIPASE #### [address] MCV (RBC) [Entitic vol] 86.9 fL Normal 80-100 [facility] Comment on above: Performed By: #### H EPATIC, CBC, BMP, LIPASE #### [address] Mean Corpuscular HGB Conc 33.2 g/dL Normal 32.0-35.0 [facility] Comment on above: Performed By: #### H EPATIC, CBC, BMP, LIPASE #### [address] Monocytes (Bld) [#/Vol] 0.3 10*3/uL Normal 0.0-0.8 [facility] Comment on above: Performed By: #### H EPATIC, CBC, BMP, LIPASE #### [address] Monocytes/100 WBC (Bld) 19.24 % Normal 0.00-20.00 [facility] Comment on above: Performed By: #### H EPATIC, CBC, BMP, LIPASE #### [address] Monocytes/100 WBC (Bld) 2.1 % Normal . [facility] Comment on above: Performed By: #### H EPATIC, CBC, BMP, LIPASE #### [address] Neutrophils (Bld) [#/Vol] 11.7 10*3/uL High 1.8-7.7 [facility] Comment on above: Performed By: #### H EPATIC, CBC, BMP, LIPASE #### [address] Neutrophils/100 WBC (Bld) 91.7 % Normal . [facility] Comment on above: Performed By: #### H EPATIC, CBC, BMP, LIPASE #### [address] NRBC% 0.0 /100{WBC} Normal 0-0.5 [facility] Comment on above: Performed By: #### H EPATIC, CBC, BMP, LIPASE #### [address] Platelet mean volume (Bld) [Entitic vol] 11.2 fL High 6.3-10.[address] [facility] Comment on above: Performed By: #### H EPATIC, CBC, BMP, LIPASE #### [address] Platelets (Bld) [#/Vol] 205 10*3/uL Normal 150-450 [facility] Comment on above: Performed By: #### H EPATIC, CBC, BMP, LIPASE #### [address] RBC (Bld) [#/Vol] 3.95 10*6/uL Normal 3.60-5.00 [facility] Comment on above: Performed By: #### H EPATIC, CBC, BMP, LIPASE #### [address] WBC (Bld) [#/Vol] 12.7 10*3/uL High 3.8-11.6 [facility] Comment on above: Performed By: #### H EPATIC, CBC, BMP, LIPASE #### [address] Comprehensive Metabolic Pane blanquita 04-05-2024 Albumin [Mass/Vol] 4.2 g/dL Normal 3.5-5.7 [facility] Comment on above: Performed By: #### H EPATIC, CBC, BMP, LIPASE #### [address] Albumin/Globulin [Mass ratio] 1.3 {ratio} Normal [facility] Comment on above: Performed By: #### H EPATIC, CBC, BMP, LIPASE #### [address] ALP [Catalytic activity/Vol] 60 U/L Normal 34-104 [facility] Comment on above: Performed By: #### H EPATIC, CBC, BMP, LIPASE #### [address] ALT [Catalytic activity/Vol] 20 U/L Normal 7-52 [facility] Comment on above: Performed By: #### H EPATIC, CBC, BMP, LIPASE #### [address] Anion gap [Moles/Vol] 15.3 mmol/L High 6.0-15.0 [facility] Comment on above: Performed By: #### H EPATIC, CBC, BMP, LIPASE #### [address] AST [Catalytic activity/Vol] 13 U/L Normal 13-39 [facility] Comment on above: Performed By: #### H EPATIC, CBC, BMP, LIPASE #### [address] Bilirubin [Mass/Vol] 0.5 mg/dL Normal 0.3-1.0 [facility] Comment on above: Performed By: #### H EPATIC, CBC, BMP, LIPASE #### [address] Calcium [Mass/Vol] 9.1 mg/dL Normal 8.6-10.3 [facility] Comment on above: Performed By: #### H EPATIC, CBC, BMP, LIPASE #### [address] Chloride [Moles/Vol] 106 mmol/L Normal 98-107 [facility] Comment on above: Performed By: #### H EPATIC, CBC, BMP, LIPASE #### [address] CO2 [Moles/Vol] 19.0 mmol/L Low 21.0-31.0 [facility] Comment on above: Performed By: #### H EPATIC, CBC, BMP, LIPASE #### [address] Creatinine [Mass/Vol] 0.41 mg/dL Low 0.60-1.20 [facility] Comment on above: Performed By: #### H EPATIC, CBC, BMP, LIPASE #### [address] Creatinine Clr Calc Pharmacy 181.93 Normal [facility] Comment on above: Performed By: #### H EPATIC, CBC, BMP, LIPASE #### [address] GFR/1.73 sq M.predicted MDRD (S/P/Bld) [Vol rate/Area] mL/min/{1.73_m2} Normal [facility] Comment on above: Performed By: #### H EPATIC, CBC, BMP, LIPASE #### [address] Globulin (S) [Mass/Vol] 3.2 g/dL Normal [facility] Comment on above: Performed By: #### H EPATIC, CBC, BMP, LIPASE #### [address] Glucose [Mass/Vol] 138 mg/dL High 70-100 [facility] Comment on above: Result Comment: [facility] Glucose Reference Range is dependent on time and content of last meal. Glucose of more than 200 mg/dL in a nonstressed, ambulatory subject supports the diagnosis of Diabetes Mellitus. ADA recommended reference range Performed By: #### H EPATIC, CBC, BMP, LIPASE #### [address] Potassium [Moles/Vol] 3.3 mmol/L Low 3.5-5.1 [facility] Comment on above: Performed By: #### H EPATIC, CBC, BMP, LIPASE #### [address] Protein [Mass/Vol] 7.4 g/dL Normal 6.4-8.9 [facility] Comment on above: Performed By: #### H EPATIC, CBC, BMP, LIPASE #### [address] Sodium [Moles/Vol] 137 mmol/L Normal 136-145 [facility] Comment on above: Performed By: #### H EPATIC, CBC, BMP, LIPASE #### [address] Urea nitrogen [Mass/Vol] 9 mg/dL Normal 7-25 [facility] Comment on above: Performed By: #### H EPATIC, CBC, BMP, LIPASE #### [address] Creatinine [Mass/volume] in Serum or PlasmaOrdered By: Parminder Serrano on 04-05-2024 Creatinine [Mass/Vol] Creatinine [Mass/v olume] in Serum or Plasma Low 0.60-1.20 [facility] Dipstick and Microscopicon 0 04-05-2024 Appearance (U) Clear Normal Clear [facility] Comment on above: Order Comment: Name Collection Type:: Clean-Voided Midstream Performed By: #### A DDONUAPLUS #### [facility] [address] [place] [address] [place] Bacteria,Urine None Seen Normal None Seen [facility] Comment on above: Order Comment: Name Collection Type:: Clean-Voided Midstream Performed By: #### A DDONUAPLUS #### [place] [address] [place] Bilirubin,Urine Negative Normal Negative [facility] Comment on above: Order Comment: Name Collection Type:: Clean-Voided Midstream Performed By: #### A DDONUAPLUS #### [place] [address] [place] Color (U) Light-Yellow Normal Yellow [facility] Comment on above: Order Comment: Name Collection Type:: Clean-Voided Midstream Performed By: #### A DDONUAPLUS #### [place] [address] [place] Glucose Ql (U) 150 mg/dL High Normal [facility] Comment on above: Order Comment: Name Collection Type:: Clean-Voided Midstream Performed By: #### A DDONUAPLUS #### [facility] [address] [place] [address] [place] Hyaline Casts,Urine None Normal 0-8 [facility] Comment on above: Order Comment: Name Collection Type:: Clean-Voided Midstream Performed By: #### A DDONUAPLUS #### [facility] [address] [place] [address] [place] Ketones Ql (U) 4+ High Negative [facility] Comment on above: Order Comment: Name Collection Type:: Clean-Voided Midstream Performed By: #### A DDONUAPLUS #### [facility] [address] [place] [address] [place] Leukocyte esterase Test strip Ql (U) 3+ High Negative [facility] Comment on above: Order Comment: Name Collection Type:: Clean-Voided Midstream Performed By: #### A DDONUAPLUS #### [place] [address] [place] Mucus,Urine Rare Normal [facility] Comment on above: Order Comment: Name Collection Type:: Clean-Voided Midstream Result Comment: PERF ORMED BY: [place] [address] PATHOLOGIST PROCESSING SPECIALIST SARAH ANDREWS M.D. Performed By: #### A DDONUAPLUS #### [place] [address] [place] Nitrite,Urine Negative Normal Negative [facility] Comment on above: Order Comment: Name Collection Type:: Clean-Voided Midstream Performed By: #### A DDONUAPLUS #### [place] [address] [place] Occult Blood,Urine Negative Normal Negative [facility] Comment on above: Order Comment: Name Collection Type:: Clean-Voided Midstream Result Comment: PERF ORMED BY: [place] [address] PATHOLOGIST PROCESSING SPECIALIST SARAH ANDREWS M.D. Performed By: #### A DDONUAPLUS #### [place] [address] [place] pH (U) 6.5 [pH] Normal 5.0-9.0 [facility] Comment on above: Order Comment: Name Collection Type:: Clean-Voided Midstream Performed By: #### A DDONUAPLUS #### [place] [address] [place] Protein,Urine Negative Normal Negative [facility] Comment on above: Order Comment: Name Collection Type:: Clean-Voided Midstream Performed By: #### A DDONUAPLUS #### [place] [address] [place] RBC,Urine 1 [HPF] Normal 0-4 [facility] Comment on above: Order Comment: Name Collection Type:: Clean-Voided Midstream Performed By: #### A DDONUAPLUS #### [address] Specificy [place],Urine 1.018 Normal 1.001-1.03 0 [facility] Comment on above: Order Comment: Name Collection Type:: Clean-Voided Midstream Performed By: #### A DDONUAPLUS #### [address] Squamous Epithelial Cell,Urine 3 [HPF] High 0-2 [facility] Comment on above: Order Comment: Name Collection Type:: Clean-Voided Midstream Performed By: #### A DDONUAPLUS #### [address] Urobilinogen,Urine Normal Normal Normal [facility] Comment on above: Order Comment: Name Collection Type:: Clean-Voided Midstream Performed By: #### A DDONUAPLUS #### [address] WBC,Urine 3 [HPF] Normal 0-4 [facility] Comment on above: Order Comment: Name Collection Type:: Clean-Voided Midstream Performed By: #### A DDONUAPLUS #### [address] Eosinophils Auto (Bld) [#/Vo l]Ordered By: Parminder Serrano on 04-05-2024 Eosinophils (Bld) [#/Vol] Automated eosinophil count 0.0-0.45 [facility] Eosinophils/100 WBC Auto (Bl d)Ordered By: Parminder Serrano on 04-05-2024 Eosinophils/100 WBC (Bld) Automated eosinophil % . [facility] Epithelial cells.squamous [# /area] in Urine sediment by Automated countOrdered By: Parminder Serrano on 04-05-2024 Epithelial cells.squamous Auto (Urine sed) [#/Area] Epithelial cells.squamous [#/area] in Urine sediment by Automated count High 0-2 [facility] Erythrocyte distribution wid th Auto (RBC) [Ratio]Ordered By: Parminder Serrano on 04-05-2024 Erythrocyte distribution width (RBC) [Ratio] Erythrocyte distribution width [Ratio] by Automated count 11.9-15.3 [facility] Erythrocytes [#/area] in Uri ne sediment by Automated countOrdered By: Parminder Serrano on 04-05-2024 RBC Auto (Urine sed) [#/Area] Erythrocytes [#/area] in Urine sediment by Automated count 0-4 [facility] Globulin Calc (S) [Mass/Vol] Ordered By: Parminder Serrano on 04-05-2024 Globulin (S) [Mass/Vol] Serum globulin measurement by calculation (mass/volume) [facility] Glucose [Mass/volume] in Ser um or PlasmaOrdered By: Parminder Serrano on 04-05-2024 Glucose [Mass/Vol] Glucose [Mass/volume ] in Serum or Plasma High 70-100 [facility] Comment on above: ADA recommended refe rence [...] in Urine by Test strip High Normal [facility] Hematocrit Auto (Bld) [Volum e fraction]Ordered By: Parminder Serrano 04-05-2024 Hematocrit (Bld) [Volume fraction] Hematocrit [Volume Fraction] of Blood by Automated count 34.0-46.4 [facility] Hemoglobin Test strip Ql (U) Ordered By: Parminder Serrano 04-05-2024 Hemoglobin Ql (U) Hemoglobin [Presence ] in Urine by Test strip Negative [facility] Hemoglobin [Mass/volume] in BloodOrdered By: Parminder Serrano 04-05-2024 Hemoglobin (Bld) [Mass/Vol] Hemoglobin [Mass/volume] in Blood Low 11.8-15.4 [facility] Hyaline casts [#/area] in Ur ine sediment by Automated countOrdered By: Parminder Serrano 04-05-2024 Hyaline casts Auto (Urine sed) [#/Area] Hyaline casts [#/area] in Urine sediment by Automated count 0-8 [facility] Ketones Test strip Ql (U)Ord ered By: Parminder Serrano on 04-05-2024 Ketones Ql (U) Ketones [Presence] i n Urine by Test strip High Negative [facility] Leukocyte esterase [Presence ] in Urine by Test stripOrdered By: Parminder Serrano on 04-05-2024 Leukocyte esterase Test strip Ql (U) Leukocyte esterase [Presence] in Urine by Test strip High Negative [facility] Leukocytes [#/area] in Urine sediment by Automated countOrdered By: Parminder Serrano on 04-05-2024 WBC Auto (Urine sed) [#/Area] Leukocytes [#/area] in Urine sediment by Automated count 0-4 [facility] Leukocytes [#/volume] correc rossy for nucleated erythrocytes in Blood by Automated counOrdered By: Parminder Serrano on 04-05-2024 WBC corrected for nucl RBC Auto (Bld) [#/Vol] Leukocytes [#/volume] corrected for nucleated erythrocytes in Blood by Automated coun High 3.8-11.6 [facility] Lipaseon 04-05-2024 Lipase [Catalytic activity/Vol] 11.0 U/L Normal 11.0-82.0 [facility] Comment on above: Result Comment: PERF ORMED BY: [place] [address] PATHOLOGIST PROCESSING SPECIALIST SARAH ANDREWS M.D. Performed By: #### H EPATIC, CBC, BMP, LIPASE #### [address] Lipase [Enzymatic activity/v olume] in Serum or PlasmaOrdered By: Parminder Serrano on 04-05-2024 Lipase [Catalytic activity/Vol] Lipase [Enzymatic activity/volume] in Serum or Plasma 11.0-82.0 [facility] Lymphocytes Auto (Bld) [#/Vo l]Ordered By: Parminder Serrano on 04-05-2024 Lymphocytes (Bld) [#/Vol] Lymphocytes [#/volume] in Blood by Automated count Low 1.00-4.8 [facility] Lymphocytes/100 WBC Auto (Bl d)Ordered By: Parminder Serrano on 04-05-2024 Lymphocytes/100 WBC (Bld) Lymphocytes/100 leukocytes in Blood by Automated count . [facility] MCH Auto (RBC) [Entitic mass ]Ordered By: Parminder Serrano on 04-05-2024 MCH (RBC) [Entitic mass] MCH [Entitic mass] by Automated count 24.7-34.3 [facility] MCHC Auto (RBC) [Mass/Vol]Or dered By: Parminder Serrano on 04-05-2024 MCHC (RBC) [Mass/Vol] MCHC [Mass/volume] by Automated count 32.0-35.0 [facility] MCV Auto (RBC) [Entitic vol] Ordered By: Parminder Serrano on 04-05-2024 MCV (RBC) [Entitic vol] MCV [Entitic volume] by Automated count 80-100 [facility] Monocyte distribution width [Entitic volume] in Blood by AutomatedOrdered By: Parminder Serrano on 04-05-2024 Monocyte distribution width Auto (Bld) [Entitic vol] Monocyte distribution width [Entitic volume] in Blood by Automated 0.00-20.00 [facility] Monocytes Auto (Bld) [#/Vol] Ordered By: Parminder Serrano on 04-05-2024 Monocytes (Bld) [#/Vol] Automated blood monocyte count 0.0-0.8 [facility] Monocytes/100 WBC Auto (Bld) Ordered By: Parminder Serrano on 04-05-2024 Monocytes/100 WBC (Bld) Automated monocyte % . [facility] Mucus [Presence] in Urine by AutomatedOrdered By: Parminder Serrano on 04-05-2024 Mucus Auto Ql (U) Mucus [Presence] in Urine by Automated [facility] Neutrophils Auto (Bld) [#/Vo l]Ordered By: Parminder Serrano on 04-05-2024 Neutrophils (Bld) [#/Vol] Neutrophils [#/volume] in Blood by Automated count High 1.8-7.7 [facility] Neutrophils/100 WBC Auto (Bl d)Ordered By: Parminder Serrano on 04-05-2024 Neutrophils/100 WBC (Bld) Automated neutrophil % . [facility] Nitrite Test strip Ql (U)Ord ered By: Parminder Serrano on 04-05-2024 Nitrite Ql (U) Nitrite [Presence] i n Urine by Test strip Negative [facility] No Panel InformationOrdered By: Parminder Serrano on 04-05-2024 Estimated GFR (CKD-EPI) > 60.0 mL/Min [facility] Creatinine Clearance (Chem 181.93 [facility] Nucleated erythrocytes [Pres ence] in Blood by Automated countOrdered By: Parminder Serrano on 04-05-2024 Nucleated RBC Auto Ql (Bld) Nucleated erythrocytes [Presence] in Blood by Automated count 0-0.5 [facility] Platelet mean volume Auto (B ld) [Entitic vol]Ordered By: Parminder Serrano on 04-05-2024 Platelet mean volume (Bld) [Entitic vol] Platelet mean volume [Entitic volume] in Blood by Automated count High 6.3-10.7 [facility] Platelets Auto (Bld) [#/Vol] Ordered By: Parminder Serrano on 04-05-2024 Platelets (Bld) [#/Vol] Platelets [#/volume] in Blood by Automated count 150-450 [facility] Potassium [Moles/volume] in Serum or PlasmaOrdered By: Parminder Serrano on 04-05-2024 Potassium [Moles/Vol] Potassium [Moles/v olume] in Serum or Plasma Low 3.5-5.1 [facility] Protein Test strip (U) [Mass /Vol]Ordered By: Parminder Serrano on 04-05-2024 Protein (U) [Mass/Vol] Protein [Mass/volume] in Urine by Test strip Negative [facility] Protein [Mass/volume] in Ser um or PlasmaOrdered By: Parminder Serrano on 04-05-2024 Protein [Mass/Vol] Protein [Mass/volume ] in Serum or Plasma 6.4-8.9 [facility] RBC Auto (Bld) [#/Vol]Ordere d By: Parminder Serrano on 04-05-2024 RBC (Bld) [#/Vol] Erythrocytes [#/volu me] in Blood by Automated count 3.60-5.00 [facility] Respiratory (Upper) Panel, P CRon 04-05-2024 Respiratory [...] A H3 Blank Space -- PERFORMED BY: [place] [address] PATHOLOGIST PROCESSING SPECIALIST SARAH ANDREWS M.D. Normal [facility] Comment on above: Performed By: #### A RAFAEL GORDON CUU #### [address] Respiratory pathogens DNA an d RNA panel - Nasopharynx by TORRES with non-probe detectionOrdered By: Parminder Serrano on 04-05-2024 Respiratory pathogens DNA and RNA panel TORRES+non-probe (Nph) Respiratory pathogens DNA and RNA panel - Nasopharynx by TORRES with non-probe detection [facility] Respiratory pathogens DNA and RNA panel TORRES+non-probe (Nph) Respiratory pathogens DNA and RNA panel - Nasopharynx by TORRES with non-probe detection [facility] Serum or plasma albumin/glob ulin mass ratioOrdered By: Parminder Serrano on 04-05-2024 Albumin/Globulin [Mass ratio] Serum or plasma albumin/globulin mass ratio [facility] Serum or plasma anion gap de terminationOrdered By: Parminder Serrano on 04-05-2024 Anion gap [Moles/Vol] Serum or plasma an ion gap determination High 6.0-15.0 [facility] Sodium [Moles/volume] in Ser um or PlasmaOrdered By: Parminder Serrano on 04-05-2024 Sodium [Moles/Vol] Sodium [Moles/volume ] in Serum or Plasma 136-145 [facility] Specific gravity Test strip (U) [Rel density]Ordered By: Parminder Serrano on 04-05-2024 Specific gravity (U) [Rel density] Specific gravity of Urine by Test strip 1.001-1.03 0 [facility] Urea nitrogen [Mass/volume] in Serum or PlasmaOrdered By: Parminder Serrano on 04-05-2024 Urea nitrogen [Mass/Vol] Urea nitrogen [Mass/volume] in Serum or Plasma 7-25 [facility] Urobilinogen Test strip (U) [Mass/Vol]Ordered By: Parminder Serrano on 04-05-2024 Urobilinogen (U) [Mass/Vol] Urobilinogen [Mass/volume] in Urine by Test strip Normal [facility] WBC Auto (Bld) [#/Vol]Ordere d By: Parminder Serrano on 04-05-2024 WBC (Bld) [#/Vol] Leukocytes [#/volume ] in Blood by Automated count High 3.8-11.6 [facility] pH Test strip (U)Ordered By: Parminder Serrano on 04-05-2024 pH (U) pH of Urine by Test strip 5.0-9.0 [facility] BOX TESTon 04-03-2024 BOX TEST SENT OUT [facility] BOX1 [facility] BOX2 04[facility]03/[facility] ( test[facility] Ql (U)o n 03-24-2024 Interpretation and review of laboratory results Abnormal [facility] Preg Test, Ur Positive Negative [facility] US OB TRANSVAGINALon 025 US OB [...] x 5.5 cm (8 weeks, 6 days). [place] rump length is 2.1 cm (8 weeks, [...] UA Positive Negative - 4(70) +++ mg/dL [facility] Comment on above: small Blood, UA Negative Negative - 50 Josiah/mcL [facility] Clarity, UA Clear [facility] Color, UA Yellow [facility] Glucose, UA Negative Negative - 2000(110) ++++ mg/dL [facility] Interpretation and review of laboratory results Abnormal [facility] Ketones, UA Positive Negative - 160(16) ++++ mg/dL [facility] Comment on above: trace Leukocytes, UA Positive Negative - 500+++ Archana/mcL [facility] Comment on above: small Nitrite, UA Negative Negative - Positive [facility] pH, UA 6.5 5 - 9 [facility] Protein, UA Positive Negative - 2000(20) ++++ mg/dL [facility] Comment on above: 30 mg Spec Grav, UA 1.025 1 - 1.03 [facility] Urobilinogen, UA 1.0 0.2 - 12 mg/dL [facility] Alanine aminotransferase [En zymatic activity/volume] in Serum or PlasmaOrdered By: Surjit Stanton on 03-04-2024 ALT [Catalytic activity/Vol] Alanine aminotransferase [Enzymatic activity/volume] in Serum or Plasma [facility] Albumin [Mass/volume] in Ser um or Plasma by Bromocresol green (BCG) dye binding methoOrdered By: Surjit Stanton on 03-04-2024 Albumin BCG dye [Mass/Vol] Albumin [Mass/volume] in Serum or Plasma by Bromocresol green (BCG) dye binding metho 3.5-5.7 [facility] Alkaline phosphatase [Enzyma tic activity/volume] in Serum or PlasmaOrdered By: Surjit Stanton on 03-04-2024 ALP [Catalytic activity/Vol] Alkaline phosphatase [Enzymatic activity/volume] in Serum or Plasma Low 34-104 [facility] Anisocytosis LM Ql (Bld)Orde red By: Surjit Stanton on 03-04-2024 Anisocytosis Ql (Bld) Anisocytosis [Pres ence] in Blood by Light microscopy [facility] Appearance of UrineOrdered B y: Surjit Stanton on 03-04-2024 Appearance (U) Urine appearance Clear [facility] Aspartate aminotransferase [ Enzymatic activity/volume] in Serum or PlasmaOrdered By: Surjit Stanton on 03-04-2024 AST [Catalytic activity/Vol] Aspartate aminotransferase [Enzymatic activity/volume] in Serum or Plasma 1339 [facility] Bacteria [Presence] in Urine by AutomatedOrdered By: Surjit Stanton on 03-04-2024 Bacteria Auto Ql (U) Bacteria [Presence] in Urine by Automated None Seen [facility] Basic Metabolic Panelon 02-19 Anion gap [Moles/Vol] 12.2 mmol/L Normal 6.0-15.0 [facility] Comment on above: Performed By: #### H EPATIC, CBC, BMP, LIPASE #### [facility] [address] Calcium [Mass/Vol] 9.4 mg/dL Normal 8.6-10.3 [facility] Comment on above: Performed By: #### H EPATIC, CBC, BMP, LIPASE #### [facility] [address] [place] [address] [place] Chloride [Moles/Vol] 109 mmol/L High 98-107 [facility] Comment on above: Performed By: #### H EPATIC, CBC, BMP, LIPASE #### [facility] [address] CO2 [Moles/Vol] 21.1 mmol/L Normal 21.0-31.0 [facility] Comment on above: Performed By: #### H EPATIC, CBC, BMP, LIPASE #### [facility] [address] [place] [address] [place] Creatinine [Mass/Vol] 0.60 mg/dL Normal 0.60-1.20 [facility] Comment on above: Performed By: #### H EPATIC, CBC, BMP, LIPASE #### [facility] [address] [place] [address] [place] Creatinine Clr Calc Pharmacy 122.59 Normal [facility] Comment on above: Performed By: #### H EPATIC, CBC, BMP, LIPASE #### [facility] [address] [place] [address] [place] GFR/1.73 sq M.predicted MDRD (S/P/Bld) [Vol rate/Area] mL/min/{1.73_m2} Normal [facility] Comment on above: Performed By: #### H EPATIC, CBC, BMP, LIPASE #### [facility] [address] [place] [address] [place] Glucose [Mass/Vol] 134 mg/dL High 70-100 [facility] Comment on above: Result Comment: [place] Glucose Reference Range is dependent on time and content of last meal. Glucose of more than 200 mg/dL in a nonstressed, ambulatory subject supports the diagnosis of Diabetes Mellitus. ADA recommended reference range Performed By: #### H EPATIC, CBC, BMP, LIPASE #### [facility] [address] Potassium [Moles/Vol] 3.3 mmol/L Low 3.5-5.1 [facility] Comment on above: Performed By: #### H EPATIC, CBC, BMP, LIPASE #### [facility] [address] Sodium [Moles/Vol] 139 mmol/L Normal 136-145 [facility] Comment on above: Performed By: #### H EPATIC, CBC, BMP, LIPASE #### [facility] [address] Urea nitrogen [Mass/Vol] 8 mg/dL Normal 7-25 [facility] Comment on above: Performed By: #### H EPATIC, CBC, BMP, LIPASE #### [facility] [address] Basophils Auto (Bld) [#/Vol] Ordered By: Surjit Stanton on 03-04-2024 Basophils (Bld) [#/Vol] Automated basophil count 0.0-0.2 [facility] Basophils/100 WBC Auto (Bld) Ordered By: Surjit Stanton on 03-04-2024 Basophils/100 WBC (Bld) Automated basophil % . [facility] Bilirubin Test strip Ql (U)O rdered By: Surjit Stanton on 03-04-2024 Bilirubin Ql (U) Bilirubin.total [Pre sence] in Urine by Test strip Negative [facility] Bilirubin.direct [Mass/volum e] in Serum or PlasmaOrdered By: Surjit Stanton on 03-04-2024 Bilirubin.direct [Mass/Vol] Bilirubin.direct [Mass/volume] in Serum or Plasma 0.03-0.18 [facility] Bilirubin.total [Mass/volume ] in Serum or PlasmaOrdered By: Surjit Stanton on 03-04-2024 Bilirubin [Mass/Vol] Bilirubin.total [Mass/volume] in Serum or Plasma 0.3-1.0 [facility] Calcium [Mass/volume] in Ser um or PlasmaOrdered By: Surjit Stanton on 03-04-2024 Calcium [Mass/Vol] Calcium [Mass/volume ] in Serum or Plasma 8.6-10.3 [facility] Carbon dioxide, total [Moles /volume] in Serum or PlasmaOrdered By: Surjit Stanton on 03-04-2024 CO2 [Moles/Vol] Carbon dioxide, tota l [Moles/volume] in Serum or Plasma 21.0-31.0 [facility] Chloride [Moles/volume] in S mayte or PlasmaOrdered By: Surjit Stanton on 03-04-2024 Chloride [Moles/Vol] Chloride [Moles/vol ume] in Serum or Plasma High 98-107 [facility] Choriogonadotropin.beta subu nit [Units/volume] in Serum or PlasmaOrdered By: Surjit Stanton on 03-04-2024 HCG.beta subunit Qn Choriogonadotropin.b eta subunit [Units/volume] in Serum or Plasma [facility] Comment on above: Approximate Approxim ate hCG Gestational Age Range (mIU/ml) (weeks)0.2-1 5-50 1-2 50-500 2-3 100-5,000 3-4 500-10,000 4-5 1,000-50,000 5-6 10,000-100,000 6-8 15,000-200,000 8-12 10,000-100,000 Color Auto (U)Ordered By: Neri Stanton on 03-04-2024 Color (U) Color of Urine by Auto Yellow [facility] Creatinine [Mass/volume] in Serum or PlasmaOrdered By: Surjit Stanton on 03-04-2024 Creatinine [Mass/Vol] Creatinine [Mass/v olume] in Serum or Plasma 0.60-1.20 [facility] Dipstick and Microscopicon 1 05-05-2023 Appearance (U) Clear Normal Clear [facility] Comment on above: Order Comment: Name Collection Type:: Clean-Voided Midstream Performed By: #### A DDONUAPLUS #### [address] Bacteria,Urine Rare Normal None Seen [facility] Comment on above: Order Comment: Name Collection Type:: Clean-Voided Midstream Performed By: #### A DDONUAPLUS #### [place] [address] [place] Bilirubin,Urine Negative Normal Negative [facility] Comment on above: Order Comment: Name Collection Type:: Clean-Voided Midstream Performed By: #### A DDONUAPLUS #### [address] Color (U) Light-Yellow Normal Yellow [facility] Comment on above: Order Comment: Name Collection Type:: Clean-Voided Midstream Performed By: #### A DDONUAPLUS #### [address] Glucose Ql (U) Normal Normal Normal [facility] Comment on above: Order Comment: Name Collection Type:: Clean-Voided Midstream Performed By: #### A DDONUAPLUS #### [place] [address] [place] Hyaline Casts,Urine None Normal 0-8 [facility] Comment on above: Order Comment: Name Collection Type:: Clean-Voided Midstream Performed By: #### A DDONUAPLUS #### [address] Ketones Ql (U) 2+ High Negative [facility] Comment on above: Order Comment: Name Collection Type:: Clean-Voided Midstream Performed By: #### A DDONUAPLUS #### [address] Leukocyte esterase Test strip Ql (U) Negative Normal Negative [facility] Comment on above: Order Comment: Name Collection Type:: Clean-Voided Midstream Performed By: #### A DDONUAPLUS #### [place] [address] [place] Mucus,Urine 2+ Critically abnormal [facility] Comment on above: Order Comment: Name Collection Type:: Clean-Voided Midstream Result Comment: PERF ORMED BY: [address] [place] [address] PATHOLOGIST PROCESSING SPECIALIST SARAH ANDREWS M.D. Performed By: #### A DDONUAPLUS #### [address] Nitrite,Urine Negative Normal Negative [facility] Comment on above: Order Comment: Name Collection Type:: Clean-Voided Midstream Performed By: #### A DDONUAPLUS #### [address] Occult Blood,Urine Negative Normal Negative [facility] Comment on above: Order Comment: Name Collection Type:: Clean-Voided Midstream Result Comment: PERF ORMED BY: [place] [address] PATHOLOGIST PROCESSING SPECIALIST SARAH ANDREWS M.D. Performed By: #### A DDONUAPLUS #### [address] pH (U) 8.5 [pH] Normal 5.0-9.0 [facility] Comment on above: Order Comment: Name Collection Type:: Clean-Voided Midstream Performed By: #### A DDONUAPLUS #### [address] Protein (U) [Mass/Vol] 20 mg/dL High Negative [facility] Comment on above: Order Comment: Name Collection Type:: Clean-Voided Midstream Performed By: #### A DDONUAPLUS #### [address] RBC,Urine 3 [HPF] Normal 0-4 [facility] Comment on above: Order Comment: Name Collection Type:: Clean-Voided Midstream Performed By: #### A DDONUAPLUS #### [address] Specificy [place],Urine 1.023 Normal 1.001-1.03 0 [facility] Comment on above: Order Comment: Name Collection Type:: Clean-Voided Midstream Performed By: #### A DDONUAPLUS #### [facility] [address] Squamous Epithelial Cell,Urine 5 [HPF] High 0-2 [facility] Comment on above: Order Comment: Name Collection Type:: Clean-Voided Midstream Performed By: #### A DDONUAPLUS #### [facility] [address] Urobilinogen,Urine Normal Normal Normal [facility] Comment on above: Order Comment: Name Collection Type:: Clean-Voided Midstream Performed By: #### A DDONUAPLUS #### [facility] [address] [place] [address] WBC,Urine 1 [HPF] Normal 0-4 [facility] Comment on above: Order Comment: Name Collection Type:: Clean-Voided Midstream Performed By: #### A DDONUAPLUS #### [facility] [address] [place] [address] Eosinophils Auto (Bld) [#/Vo l]Ordered By: Surjit Stanton on 03-04-2024 Eosinophils (Bld) [#/Vol] Automated eosinophil count 0.0-0.45 [facility] Eosinophils/100 WBC Auto (Bl d)Ordered By: Surjit Stanton on 03-04-2024 Eosinophils/100 WBC (Bld) Automated eosinophil % . [facility] Epithelial cells.squamous [# /area] in Urine sediment by Automated countOrdered By: Surjit Stanton on 03-04-2024 Epithelial cells.squamous Auto (Urine sed) [#/Area] Epithelial cells.squamous [#/area] in Urine sediment by Automated count High 0-2 [facility] Erythrocyte distribution wid th Auto (RBC) [Ratio]Ordered By: Surjit Stanton on 03-04-2024 Erythrocyte distribution width (RBC) [Ratio] Erythrocyte distribution width [Ratio] by Automated count 11.9-15.3 [facility] Erythrocyte morphology findi ng [Identifier] in BloodOrdered By: Surjit Stanton on 03-04-2024 RBC morphology finding Nom (Bld) RBC morphology Normal [facility] Erythrocytes [#/area] in Uri ne sediment by Automated countOrdered By: Surjit Stanton on 03-04-2024 RBC Auto (Urine sed) [#/Area] Erythrocytes [#/area] in Urine sediment by Automated count 0-4 [facility] Globulin Calc (S) [Mass/Vol] Ordered By: Surjit Stanton on 03-04-2024 Globulin (S) [Mass/Vol] Serum globulin measurement by calculation (mass/volume) [facility] Glucose [Mass/volume] in Ser um or PlasmaOrdered By: Surjit Stanton on 03-04-2024 Glucose [Mass/Vol] Glucose [Mass/volume ] in Serum or Plasma High 70-100 [facility] Comment on above: ADA recommended refe rence rangeRandom Glucose Reference Range is dependent on time and content of last meal. Glucose of more than 200 mg/dL in a nonstressed, ambulatory subject supports the diagnosis of Diabetes Mellitus. Glucose [Mass/volume] in Uri ne by Test stripOrdered By: Surjit Stanton on 03-04-2024 Glucose Test strip (U) [Mass/Vol] Glucose [Mass/volume] in Urine by Test strip Normal [facility] HCG,Quantitativeon HCG,Quantitative 72381.00 m[iU]/mL Normal T [facility] Comment on above: Result Comment: Appr oximate Approximate hCG Gestational Age Range (mIU/ml) (weeks) 0.2-1 5-50 1-2 50-500 2-3 100-5,000 3-4 500-10,000 4-5 1,000-50,000 5-6 10,000-100,000 6-8 15,000-200,000 8-12 10,000-100,000 PERFORMED BY: [place] [address] PATHOLOGIST PROCESSING SPECIALIST SARAH ANDREWS M.D. Performed By: #### H EPATIC, CBC, BMP, LIPASE #### [address] Hematocrit Auto (Bld) [Volum e fraction]Ordered By: Surjit Stanton on 03-04-2024 Hematocrit (Bld) [Volume fraction] Hematocrit [Volume Fraction] of Blood by Automated count 34.0-46.4 [facility] Hemoglobin Test strip Ql (U) Ordered By: Surjit Stanton on 03-04-2024 Hemoglobin Ql (U) Hemoglobin [Presence ] in Urine by Test strip Negative [facility] Hemoglobin [Mass/volume] in BloodOrdered By: Surjit Stanton on 03-04-2024 Hemoglobin (Bld) [Mass/Vol] Hemoglobin [Mass/volume] in Blood 11.8-15.4 [facility] Hepatic Panelon 03-04-2024 Albumin [Mass/Vol] 4.6 g/dL Normal 3.5-5.7 [facility] Comment on above: Performed By: #### H EPATIC, CBC, BMP, LIPASE #### [address] Albumin/Globulin [Mass ratio] 1.6 {ratio} Normal [facility] Comment on above: Performed By: #### H EPATIC, CBC, BMP, LIPASE #### [address] ALP [Catalytic activity/Vol] 32 U/L Low 34-104 [facility] Comment on above: Performed By: #### H EPATIC, CBC, BMP, LIPASE #### [address] ALT [Catalytic activity/Vol] 16 U/L Normal 7-52 [facility] Comment on above: Performed By: #### H EPATIC, CBC, BMP, LIPASE #### [address] AST [Catalytic activity/Vol] 14 U/L Normal 13-39 [facility] Comment on above: Performed By: #### H EPATIC, CBC, BMP, LIPASE #### [address] Bilirubin [Mass/Vol] 0.7 mg/dL Normal 0.3-1.0 [facility] Comment on above: Performed By: #### H EPATIC, CBC, BMP, LIPASE #### [address] Bilirubin,Indirect 0.6 mg/dL Normal [facility] Comment on above: Performed By: #### H EPATIC, CBC, BMP, LIPASE #### [address] Bilirubin.indirect [Mass/Vol] 0.10 mg/dL Normal 0.03-0.18 [facility] Comment on above: Performed By: #### H EPATIC, CBC, BMP, LIPASE #### [address] Globulin (S) [Mass/Vol] 2.9 g/dL Normal [facility] Comment on above: Performed By: #### H EPATIC, CBC, BMP, LIPASE #### [address] Protein [Mass/Vol] 7.5 g/dL Normal 6.4-8.9 [facility] Comment on above: Performed By: #### H EPATIC, CBC, BMP, LIPASE #### [address] Hyaline casts [#/area] in Ur ine sediment by Automated countOrdered By: Surjit Stanton on 03-04-2024 Hyaline casts Auto (Urine sed) [#/Area] Hyaline casts [#/area] in Urine sediment by Automated count 0-8 [facility] Ketones Test strip Ql (U)Ord ered By: Surjit Stanton on 03-04-2024 Ketones Ql (U) Ketones [Presence] i n Urine by Test strip High Negative [facility] Leukocyte esterase [Presence ] in Urine by Test stripOrdered By: Surjit Stanton on 03-04-2024 Leukocyte esterase Test strip Ql (U) Leukocyte esterase [Presence] in Urine by Test strip Negative [facility] Leukocytes [#/area] in Urine sediment by Automated countOrdered By: Surjit Stanton on 03-04-2024 WBC Auto (Urine sed) [#/Area] Leukocytes [#/area] in Urine sediment by Automated count 0-4 [facility] Leukocytes [#/volume] correc rossy for nucleated erythrocytes in Blood by Automated counOrdered By: Surjit Stanton on 03-04-2024 WBC corrected for nucl RBC Auto (Bld) [#/Vol] Leukocytes [#/volume] corrected for nucleated erythrocytes in Blood by Automated coun 3.8-11.6 [facility] Lipaseon 03-04-2024 Lipase [Catalytic activity/Vol] 15.0 U/L Normal 11.0-82.0 [facility] Comment on above: Performed By: #### H EPATIC, CBC, BMP, LIPASE #### [facility] [address] Lipase [Enzymatic activity/v olume] in Serum or PlasmaOrdered By: Surjit Stanton on 03-04-2024 Lipase [Catalytic activity/Vol] Lipase [Enzymatic activity/volume] in Serum or Plasma 11.0-82.0 [facility] Lymphocytes Auto (Bld) [#/Vo l]Ordered By: Surjit Stanton on 03-04-2024 Lymphocytes (Bld) [#/Vol] Lymphocytes [#/volume] in Blood by Automated count 1.00-4.8 [facility] Lymphocytes/100 WBC Auto (Bl d)Ordered By: Surjit Stanton on 03-04-2024 Lymphocytes/100 WBC (Bld) Lymphocytes/100 leukocytes in Blood by Automated count . [facility] MCH Auto (RBC) [Entitic mass ]Ordered By: Surjit Stanton on 03-04-2024 MCH (RBC) [Entitic mass] MCH [Entitic mass] by Automated count 24.7-34.3 [facility] MCHC Auto (RBC) [Mass/Vol]Or dered By: Surjit Stanton on 03-04-2024 MCHC (RBC) [Mass/Vol] MCHC [Mass/volume] by Automated count 32.0-35.0 [facility] MCV Auto (RBC) [Entitic vol] Ordered By: Surjit Stanton on 03-04-2024 MCV (RBC) [Entitic vol] MCV [Entitic volume] by Automated count 80-100 [facility] Microcytes LM Ql (Bld)Ordere d By: Surjit Stanton on 03-04-2024 Microcytes Ql (Bld) Microcytes [Presence ] in Blood by Light microscopy [facility] Monocyte distribution width [Entitic volume] in Blood by AutomatedOrdered By: Surjit Stanton on 03-04-2024 Monocyte distribution width Auto (Bld) [Entitic vol] Monocyte distribution width [Entitic volume] in Blood by Automated 0.00-20.00 [facility] Monocytes Auto (Bld) [#/Vol] Ordered By: Surjit Stanton on 03-04-2024 Monocytes (Bld) [#/Vol] Automated blood monocyte count 0.0-0.8 [facility] Monocytes/100 WBC Auto (Bld) Ordered By: Surjit Stanton on 03-04-2024 Monocytes/100 WBC (Bld) Automated monocyte % . [facility] Mucus [Presence] in Urine by AutomatedOrdered By: Surjit Stanton on 03-04-2024 Mucus Auto Ql (U) Mucus [Presence] in Urine by Automated Abnormal [facility] Neutrophils Auto (Bld) [#/Vo l]Ordered By: Surjit Stanton on 03-04-2024 Neutrophils (Bld) [#/Vol] Neutrophils [#/volume] in Blood by Automated count 1.8-7.7 [facility] Neutrophils/100 WBC Auto (Bl d)Ordered By: Surjit Stanton on 03-04-2024 Neutrophils/100 WBC (Bld) Automated neutrophil % . [facility] Nitrite Test strip Ql (U)Ord ered By: Surjit Stanton on 03-04-2024 Nitrite Ql (U) Nitrite [Presence] i n Urine by Test strip Negative [facility] No Panel InformationOrdered By: Surjit Stanton on 03-04-2024 Estimated GFR (CKD-EPI) > 60.0 mL/Min [facility] Creatinine Clearance (Chem 122.59 [facility] Nucleated erythrocytes [Pres ence] in Blood by Automated countOrdered By: Surjit Stanton on 03-04-2024 Nucleated RBC Auto Ql (Bld) Nucleated erythrocytes [Presence] in Blood by Automated count 0-0.5 [facility] Platelet adequacy [Presence] in Blood by Light microscopyOrdered By: Surjit Stanton on 03-04-2024 Platelets LM Ql (Bld) Platelet adequacy [Presence] in Blood by Light microscopy Normal [facility] Platelet mean volume Auto (B ld) [Entitic vol]Ordered By: Surjit Stanton on 03-04-2024 Platelet mean volume (Bld) [Entitic vol] Platelet mean volume [Entitic volume] in Blood by Automated count High 6.3-10.7 [facility] Platelet morphology finding [Identifier] in BloodOrdered By: Surjit Stanton on 03-04-2024 Platelet morphology finding Nom (Bld) Platelet morphology finding [Identifier] in Blood Normal [facility] Platelets Auto (Bld) [#/Vol] Ordered By: Surjit Stanton on 03-04-2024 Platelets (Bld) [#/Vol] Platelets [#/volume] in Blood by Automated count 150-450 [facility] Potassium [Moles/volume] in Serum or PlasmaOrdered By: Surjit tSanton on 03-04-2024 Potassium [Moles/Vol] Potassium [Moles/v olume] in Serum or Plasma Low 3.5-5.1 [facility] Protein Test strip (U) [Mass /Vol]Ordered By: Surjit Stanton on 03-04-2024 Protein (U) [Mass/Vol] Protein [Mass/volume] in Urine by Test strip High Negative [facility] Protein [Mass/volume] in Ser um or PlasmaOrdered By: Surjit Stanton on 03-04-2024 Protein [Mass/Vol] Protein [Mass/volume ] in Serum or Plasma 6.4-8.9 [facility] RBC Auto (Bld) [#/Vol]Ordere d By: Surjit Stanton on 03-04-2024 RBC (Bld) [#/Vol] Erythrocytes [#/volu me] in Blood by Automated count 3.60-5.00 [facility] Scan and CBCon 03-04-2024 Anisocytosis Ql (Bld) Slight Normal [facility] Comment on above: Performed By: #### A DDONUAPLUS, URDS, CUU #### [address] Basophils (Bld) [#/Vol] 0.0 10*3/uL Normal 0.0-0.2 [facility] Comment on above: Performed By: #### A DDONUARAFAEL CANTU, CUU #### [address] Basophils/100 WBC (Bld) 0.6 % Normal . [facility] Comment on above: Performed By: #### A DDONUAPLUS URDS, CUU #### [address] Eosinophils (Bld) [#/Vol] 0.0 10*3/uL Normal 0.0-0.45 [facility] Comment on above: Performed By: #### A DDONUAPLUSKIERRADS, CUU #### [address] Eosinophils/100 WBC (Bld) 0.2 % Normal . [facility] Comment on above: Performed By: #### A DDONUAPLUS URDS, CUU #### [address] Erythrocyte distribution width (RBC) [Ratio] 14.6 % Normal 11.9-15.3 [facility] Comment on above: Performed By: #### A DDONUAKIERRA CANTUDS, CUU #### [address] Hematocrit (Bld) [Volume fraction] 38.2 % Normal 34.0-46.4 [facility] Comment on above: Performed By: #### A DDONUAPLUS URDS, CUU #### [address] Hemoglobin (Bld) [Mass/Vol] 12.9 g/dL Normal 11.8-15.4 [facility] Comment on above: Performed By: #### A DDONUAPLUS URDS, CUU #### [address] Lymphocytes (Bld) [#/Vol] 1.3 10*3/uL Normal 1.00-4.8 [facility] Comment on above: Performed By: #### A DDONUAPLUS, URDS, CUU #### [address] Lymphocytes/100 WBC (Bld) 17.1 % Normal . [facility] Comment on above: Performed By: #### A DDONUAPLUS, URDS, CUU #### [address] MCH (RBC) [Entitic mass] 29.4 pg Normal 24.7-34.3 [facility] Comment on above: Performed By: #### A DDONUAPLUS, URDS, CUU #### [address] MCV (RBC) [Entitic vol] 86.9 fL Normal 80-100 [facility] Comment on above: Performed By: #### A DDONUAPLUS, URDS, CUU #### [address] Mean Corpuscular HGB Conc 33.8 g/dL Normal 32.0-35.0 [facility] Comment on above: Performed By: #### A DDONUAPLUS, URDS, CUU #### [address] Microcytosis Slight Normal [facility] Comment on above: Performed By: #### A DDONUAPLUS, URDS, CUU #### [address] Monocytes (Bld) [#/Vol] 0.3 10*3/uL Normal 0.0-0.8 [facility] Comment on above: Performed By: #### A DDONUAPLUS, URDS, CUU #### [address] Monocytes/100 WBC (Bld) 15.87 % Normal 0.00-20.00 [facility] Comment on above: Performed By: #### A DDONUAPLUS, URDS, CUU #### [place] [address] [place] Monocytes/100 WBC (Bld) 4.4 % Normal . [facility] Comment on above: Performed By: #### A RAFAEL GORDON, CUU #### [address] Neutrophils (Bld) [#/Vol] 6.0 10*3/uL Normal 1.8-7.7 [facility] Comment on above: Performed By: #### A RAFAEL GORDON, CUU #### [address] Neutrophils/100 WBC (Bld) 77.7 % Normal . [facility] Comment on above: Performed By: #### A RAFAEL GORDON, CUU #### [address] NRBC% 0.0 /100{WBC} Normal 0-0.5 [facility] Comment on above: Performed By: #### A RAFAEL GORDON, CUU #### [address] Platelet Estimate Normal Normal Normal [facility] Comment on above: Performed By: #### A RAFAEL GORDON, CUU #### [address] Platelet mean volume (Bld) [Entitic vol] 11.5 fL High 6.3-10.[address] [facility] Comment on above: Performed By: #### A RAFAEL GORDON, CUU #### [address] Platelet Morphology Normal Normal Normal [facility] Comment on above: Result Comment: PERF ORMED BY: [place] [address] PATHOLOGIST PROCESSING SPECIALIST SARAH ANDREWS M.D. Performed By: #### A RAFAEL GORDON, CUU #### [place] [address] [place] Platelets (Bld) [#/Vol] 182 10*3/uL Normal 150-450 [facility] Comment on above: Performed By: #### A RAFAEL GORDON, CUU #### [address] RBC (Bld) [#/Vol] 4.40 10*6/uL Normal 3.60-5.00 [facility] Comment on above: Performed By: #### A RAFAEL GORDON, CUU #### [address] RBC morphology finding Nom (Bld) Normal Normal Normal [facility] Comment on above: Performed By: #### A RAFAEL GORDON, CUU #### [address] WBC (Bld) [#/Vol] 7.7 10*3/uL Normal 3.8-11.6 [facility] Comment on above: Performed By: #### A RAFAEL GORDON, CUU #### [address] Serum or plasma albumin/glob ulin mass ratioOrdered By: Surjit Stanton on 03-04-2024 Albumin/Globulin [Mass ratio] Serum or plasma albumin/globulin mass ratio [facility] Serum or plasma anion gap de terminationOrdered By: Surjit Stanton on 03-04-2024 Anion gap [Moles/Vol] Serum or plasma an ion gap determination 6.0-15.0 [facility] Serum or plasma non-glucuron idated bilirubin measurement (mass/volume)Ordered By: Surjit Stanton on 03-04-2024 Bilirubin.indirect [Mass/Vol] Serum or plasma non-glucuronidated bilirubin measurement (mass/volume) [facility] Sodium [Moles/volume] in Ser um or PlasmaOrdered By: Surjit Stanton on 03-04-2024 Sodium [Moles/Vol] Sodium [Moles/volume ] in Serum or Plasma 136-145 [facility] Specific gravity Test strip (U) [Rel density]Ordered By: Surjit Stanton on 03-04-2024 Specific gravity (U) [Rel density] Specific gravity of Urine by Test strip 1.001-1.03 0 [facility] Urea nitrogen [Mass/volume] in Serum or PlasmaOrdered By: Surjit Stanton on 03-04-2024 Urea nitrogen [Mass/Vol] Urea nitrogen [Mass/volume] in Serum or Plasma 7-25 [facility] Urobilinogen Test strip (U) [Mass/Vol]Ordered By: Surjit Stanton on 03-04-2024 Urobilinogen (U) [Mass/Vol] Urobilinogen [Mass/volume] in Urine by Test strip Normal [facility] WBC Auto (Bld) [#/Vol]Ordere d By: Surjit Stanton on 03-04-2024 WBC (Bld) [#/Vol] Leukocytes [#/volume ] in Blood by Automated count 3.8-11.6 [facility] pH Test strip (U)Ordered By: Surjit Stanton on 03-04-2024 pH (U) pH of Urine by Test strip 5.0-9.[address] [facility] [address] cervical spine wo conon 0 11-25-2023 CT cervical spine wo con [facility] [place] [address] CT Scan Report Signed Patient: Nciole Farris MR#: [id number] : 1995 Acct:[id number] Age/Sex: 28 / F ADM Date: 11/25/23 Loc: ER Room: Type: [facility] ER Attending Dr: Copies to: Vianney Genao APRN Ordering Provider: Vianney Genao APRN Date of Service: 11/25/23 CT/CT cervical spine wo con: increased pain ([id number]) CT/CT head/brain wo con: pain CLINICAL DATA: [...] Priscila Barbosa M.D.11/25/2023 7:01 PM Dictation Location: [place] [address] Transcribed By: [facility] 11/25/231900 Dictated By: Priscila Barbosa MD 11/25/231852 Signed By: 11/25/231900 Normal [facility] Alanine aminotransferase [En zymatic activity/volume] in Serum or PlasmaOrdered By: Adin Gan on 06-04-2022 ALT [Catalytic activity/Vol] 47 U/L Normal 7-52 U/L [facility] Albumin [Mass/volume] in Ser um or Plasma by Bromocresol green (BCG) dye binding methoOrdered By: Adin Gan on 06-04-2022 Albumin BCG dye [Mass/Vol] 4.9 g/dL 3.5-5.7 [facility] Alkaline phosphatase [Enzyma tic activity/volume] in Serum or PlasmaOrdered By: Adin Gan on 06-04-2022 ALP [Catalytic activity/Vol] 104 U/L Normal 34-104 U/L [facility] Aspartate aminotransferase [ Enzymatic activity/volume] in Serum or PlasmaOrdered By: Adin Gan on 06-04-2022 AST [Catalytic activity/Vol] 23 U/L Normal 13-39 U/L [facility] Bilirubin.total [Mass/volume ] in Serum or PlasmaOrdered By: Adin Gan on 06-04-2022 Bilirubin [Mass/Vol] 0.5 mg/dL 0.3-1.0 [facility] Calcium [Mass/volume] in Ser um or PlasmaOrdered By: Adin Gan on 06-04-2022 Calcium [Mass/Vol] 9.7 mg/dL 8.6-10.3 [facility] Carbon dioxide, total [Moles /volume] in Serum or PlasmaOrdered By: Adin Gan on 06-04-2022 CO2 [Moles/Vol] 27.2 mmol/L 21.0-31.0 [facility] Chloride [Moles/volume] in S mayte or PlasmaOrdered By: Adin Gan on 06-04-2022 Chloride [Moles/Vol] 104 mmol/L Normal 98-107 mmol/L [facility] Comprehensive Metabolic Pane blanquita 06-04-2022 Albumin [Mass/Vol] 4.605518 g/dL Normal 3.5-5.7 g/dL [facility] Other Bilirubin [Mass/Vol] 0.3598986 mg/dL Normal 0.3- 1.0 mg/dL [facility] Other Calcium [Mass/Vol] 9.9366568 mg/dL Normal 8.6-10 .3 mg/dL [facility] Other CO2 [Moles/Vol] 27.30199963 mmol/L Normal 21.0-3 1.0 mmol/L [facility] Other Creatinine [Mass/Vol] 0.91876988 mg/dL Normal 0. 60-1.20 mg/dL [facility] Other Potassium [Moles/Vol] 4.61386397 mmol/L Normal 3 .5-5.1 mmol/L [facility] Other Protein [Mass/Vol] 7.142664 g/dL Normal 6.4-8.9 g/dL [facility] Other Comprehensive Metabolic Panel 3.0 g/dL [facility] Other Creatinine [Mass/volume] in Serum or PlasmaOrdered By: Adin Gan on 06-04-2022 Creatinine [Mass/Vol] 0.71 mg/dL 0.60-1.20 [facility] Erythrocyte distribution wid th Auto (RBC) [Ratio]Ordered By: Adin Gan on 06-04-2022 Erythrocyte distribution width (RBC) [Ratio] 13.5 % 11.9-15.3 [facility] Erythrocytes [#/volume] in B lood by Automated countOrdered By: Adin Gan on 06-04-2022 RBC (Bld) [#/Vol] 4.44 10*6/uL Normal 3.60-5.00 [facility] Globulin Calc (S) [Mass/Vol] Ordered By: Adin Gan on 06-04-2022 Globulin (S) [Mass/Vol] 3.0 g/dL [facility] Glucose [Mass/volume] in Ser um or PlasmaOrdered By: Adin Gan on 06-04-2022 Glucose [Mass/Vol] 89 mg/dL Normal 74-109 mg/dL [facility] Comment on above: ADA recommended refe rence rangeRandom Glucose Reference Range is dependent on time and content of last meal. Glucose of more than 200 mg/dL in a nonstressed, ambulatory subject supports the diagnosis of Diabetes Mellitus. Hematocrit Auto (Bld) [Volum e fraction]Ordered By: Adin Gan on 06-04-2022 Hematocrit (Bld) [Volume fraction] 38.5 % 34.0-46.4 [facility] Hemoglobin [Mass/volume] in BloodOrdered By: Adin Gan on 06-04-2022 Hemoglobin (Bld) [Mass/Vol] 12.8 g/dL 11.8-15.4 [facility] Hemogram CBC Without Diffon 06-04-2022 Erythrocyte distribution width (RBC) [Ratio] 13.500 % Normal 11.9-15.3 % [facility] Other Hematocrit (Bld) [Volume fraction] 38.500 % Normal 34.0-46.4 % [facility] Other Hemoglobin (Bld) [Mass/Vol] 12.681522 g/dL Normal 11.8-15.4 g/dL [facility] Other MCH (RBC) [Entitic mass] 28.7000 pg Normal 24.7-34.3 pg [facility] Other MCV (RBC) [Entitic vol] 86.7000 fL Normal 80-100 fL [facility] Other Platelet mean volume (Bld) [Entitic vol] 11.1000 fL High 6.3-10.7 fL [facility] Other WBC (Bld) [#/Vol] 6.668874495 10*3/uL Normal 3.8 -11.6 10*3/uL [facility] Other Hemogram CBC Without Diff 33.1 g/dL Normal 32.0-35.0 g/dL [facility] Other Laboratory - Chemistry and C hemistry - challengeOrdered By: Adin Gan on 06-04-2022 GFR/1.73 sq M.predicted MDRD (S/P/Bld) [Vol rate/Area] mL/min/{1.73_m2} [facility] Leukocytes [#/volume] correc rossy for nucleated erythrocytes in Blood by Automated counOrdered By: Adin Gan on 06-04-2022 WBC corrected for nucl RBC Auto (Bld) [#/Vol] 6.6 10*3/uL 3.8-11.6 [facility] MCH Auto (RBC) [Entitic mass ]Ordered By: Adin Gan on 06-04-2022 MCH (RBC) [Entitic mass] 28.7 pg 24.7-34.3 [facility] MCHC Auto (RBC) [Mass/Vol]Or dered By: Adin Gan on 06-04-2022 MCHC (RBC) [Mass/Vol] 33.1 g/dL 32.0-35.0 [facility] MCV Auto (RBC) [Entitic vol] Ordered By: Adni Gan on 06-04-2022 MCV (RBC) [Entitic vol] 86.7 fL 80-100 [facility] No Panel InformationOrdered By: Adin Gan on 06-04-2022 Pharmacy Creatinine Clearance (Chem N/A [facility] Platelet mean volume Auto (B ld) [Entitic vol]Ordered By: Adin Gan on 06-04-2022 Platelet mean volume (Bld) [Entitic vol] 11.1 fL 6.3-10.7 [facility] Platelets [#/volume] in Bloo d by Automated countOrdered By: Adin Gan on 06-04-2022 Platelets (Bld) [#/Vol] 196 10*3/uL Normal 150-450 10*3/uL [facility] Potassium [Moles/volume] in Serum or PlasmaOrdered By: Adin Gan on 06-04-2022 Potassium [Moles/Vol] 4.1 mmol/L 3.5-5.1 [facility] Protein [Mass/volume] in Ser um or PlasmaOrdered By: Adin Gan on 06-04-2022 Protein [Mass/Vol] 7.9 g/dL 6.4-8.9 [facility] Serum or plasma albumin/glob ulin mass ratioOrdered By: Adin Gan on 06-04-2022 Albumin/Globulin [Mass ratio] 1.6 {ratio} [facility] Serum or plasma anion gap de terminationOrdered By: Adin Gan on 06-04-2022 Anion gap [Moles/Vol] 12.9 mmol/L 6.0-15.0 [facility] Sodium [Moles/volume] in Ser um or PlasmaOrdered By: Adin Gan on 06-04-2022 Sodium [Moles/Vol] 140 mmol/L Normal 136-145 mmol/L [facility] Thyroid Stim Hormone w/Rflxo n 06-04-2022 Thyroid Stim Hormone w/Rflx 0.93 u[iU]/mL Normal 0.45-5.33 u[iU]/mL [facility] Other Thyrotropin [Units/volume] i n Serum or PlasmaOrdered By: Adin Gan on 06-04-2022 TSH Qn 0.93 m[IU]/L 0.45-5.33 [facility] Urea nitrogen [Mass/volume] in Serum or PlasmaOrdered By: Adin Gan on 06-04-2022 Urea nitrogen [Mass/Vol] 15 mg/dL Normal 7-25 mg/dL [facility] PAP ACOG PANEL 2: 21 to 29on 02-24-2022 . . Normal [facility] Comment on above: Performed By: #### [id number] #### [facility] [address] [place] [address] Dr. Lilia Calvillo Age Gdln ACOG Testing - [facility] Comment on above: Performed By: #### [id number] #### [facility] [address] [place] [address] Dr. Lilia Calvillo DIAGNOSIS: Comment [facility] Comment on above: Result Comment: NEGA TIVE FOR INTRAEPITHELIAL LESION OR MALIGNANCY. Performed By: #### [id number] #### [facility] [address] [place] [address] Dr. Lilia Calvillo Methodology: Comment [facility] Comment on above: Result Comment: This liquid based ThinPrep(R) pap test was screened with the use of an image guided system. Performed By: #### [id number] #### [facility] [address] [place] [address] Dr. Lilia Calvillo Note: Comment [facility] Comment on above: Result Comment: The Pap smear is a screening test designed to aid in the detection of premalignant and malignant conditions of the uterine cervix. It is not a diagnostic procedure and should not be used as the sole means of detecting cervical cancer. Both false-positive and false-negative reports do occur. . Performed By: #### [id number] #### [facility] [address] [place] [address] Dr. Lilia Calvillo Performed by: Comment [facility] [facility] Comment on above: Result Comment: Philippe Garcia Authorization Representative (ASCP) Performed By: #### [id number] #### [facility] [address] [place] [address] Dr. Lilia Calvillo Reflex Criteria: Comment Normal [facility] Comment on above: Result Comment: The HPV DNA reflex criteria were not met with this specimen result therefore, no HPV testing was performed. . Performed By: #### [id number] #### [facility] [address] [place] [address] Dr. Lilia Calvillo Specimen adequacy: Comment Normal [facility] Comment on above: Result Comment: Sati sfactory for evaluation. No endocervical component is identified. Performed By: #### [id number] #### [facility] [address] [place] [address] Dr. Lilia Calvillo CBC AUTO DIFFon 10-17-2021 BASO # 0.0 103/ul Normal 0.0-0.1 [facility] Comment on above: Performed By: #### C BC #### [facility] [address] [place] [address] Dr. Lilia Calvillo Basophils/100 WBC (Bld) 0.4 % Normal 0.2-2.0 [facility] Comment on above: Performed By: #### C BC #### [facility] [address] [place] [address] Dr. Lilia Calvillo EO # 0.2 103/ul Normal 0.0-0.7 [facility] Comment on above: Performed By: #### C BC #### [facility] [address] [place] [address] Dr. Lilia Calvillo Eosinophils/100 WBC (Bld) 2.1 % Normal 0.9-7.0 [facility] Comment on above: Performed By: #### C BC #### [facility] [address] [place] [address] Dr. Lilia Calvillo Erythrocyte distribution width (RBC) [Ratio] 14.4 % Normal 11.0-15.0 [facility] Comment on above: Performed By: #### C BC #### [facility] [address] [place] [address] Dr. Lilia Calvillo Hematocrit (Bld) [Volume fraction] 27.2 % Critically low 36.0-48.0 [facility] Comment on above: Performed By: #### C BC #### [facility] [address] [place] [address] Dr. Lilia Calvillo Hemoglobin (Bld) [Mass/Vol] 9.0 g/dL Critically low 12.0-16.0 [facility] Comment on above: Performed By: #### C BC #### [facility] [address] [place] [address] Dr. Lilia Calvillo IG # 0.03 10e3/ul Normal 0.00-0.03 [facility] Comment on above: Performed By: #### C BC #### [facility] [address] [place] [address] Dr. Lilia Calvillo IG % 0.4 % Normal 0.0-0.5 [facility] Comment on above: Performed By: #### C BC #### [facility] [address] [place] [address] Dr. Lilia Calvillo LYMPH # 1.6 103/ul Normal 1.2-3.8 [facility] Comment on above: Performed By: #### C BC #### [facility] [address] [place] [address] Dr. Lilia Calvillo Lymphocytes/100 WBC (Bld) 20.2 % Critically low 20.5-60.0 [facility] Comment on above: Performed By: #### C BC #### [facility] [address] [place] [address] Dr. Lilia Calvillo MANUAL DIFF REQ NO Normal [facility] Comment on above: Performed By: #### C BC #### [facility] [address] [place] [address] Dr. Lilia Calvillo MCH (RBC) [Entitic mass] 29.3 pg Normal 26.7-34.0 [facility] Comment on above: Performed By: #### C BC #### [facility] [address] [place] [address] Dr. Lilia Calvillo MCHC (RBC) [Mass/Vol] 33.1 g/dL Normal 29.9-35.2 [facility] Comment on above: Performed By: #### C BC #### [facility] [address] [place] [address] Dr. Lilia Calvillo MCV (RBC) [Entitic vol] 88.6 fL Normal 81.0-99.0 [facility] Comment on above: Performed By: #### C BC #### [facility] [address] [place] [address] Dr. Lilia Calvillo MONO # 0.5 103/ul Normal 0.3-0.8 [facility] Comment on above: Performed By: #### C BC #### [facility] [address] [place] [address] Dr. Lilia Calvillo Monocytes/100 WBC (Bld) 5.7 % Normal 1.7-12.0 [facility] Comment on above: Performed By: #### C BC #### [facility] [address] [place] [address] Dr. Lilia Calvillo NEUT # 5.8 103/ul Normal 1.4-6.5 [facility] Comment on above: Performed By: #### C BC #### [facility] [address] [place] [address] Dr. Lilia Calvillo Neutrophils/100 WBC (Bld) 71.2 % Normal 43.0-75.0 [facility] Comment on above: Performed By: #### C BC #### [facility] [address] [place] [address] Dr. Lilia Calvillo Platelet mean volume (Bld) [Entitic vol] 13.1 fL Normal 9.5-13.5 [facility] Comment on above: Performed By: #### C BC #### [facility] [address] [place] [address] Dr. Lilia Calvillo PLT 109 103/ul Critically low 150-450 [facility] Comment on above: Performed By: #### C BC #### [facility] [address] [place] [address] Dr. Lilia Calvillo RBC 3.07 106/ul Critically low 4.20-5.40 [facility] Comment on above: Performed By: #### C BC #### [facility] [address] [place] [address] Dr. Lilia Calvillo WBC 8.1 103/ul Normal 4.0-11.0 [facility] Comment on above: Performed By: #### C BC #### [facility] [address] [place] [address] Dr. Lilia Calvillo CBC AUTO DIFFon 10-16-2021 BASO # 0.0 103/ul Normal 0.0-0.1 [facility] Comment on above: Performed By: #### G TT3P #### [facility] [address] [place] [address] Dr. Lilia Calvillo Basophils/100 WBC (Bld) 0.2 % Normal 0.2-2.0 [facility] Comment on above: Performed By: #### G TT3P #### [facility] [address] [place] [address] Dr. Lilia Calvillo EO # 0.1 103/ul Normal 0.0-0.7 [facility] Comment on above: Performed By: #### G TT3P #### [facility] [address] [place] [address] Dr. Lilia Calvillo Eosinophils/100 WBC (Bld) 0.6 % Critically low 0.9-7.0 [facility] Comment on above: Performed By: #### G TT3P #### [facility] [address] [place] [address] Dr. Lilia Calvillo Erythrocyte distribution width (RBC) [Ratio] 14.5 % Normal 11.0-15.0 [facility] Comment on above: Performed By: #### G TT3P #### [facility] [address] [place] [address] Dr. Lilia Calvillo Hematocrit (Bld) [Volume fraction] 36.2 % Normal 36.0-48.0 [facility] Comment on above: Performed By: #### G TT3P #### [facility] [address] [place] [address] Dr. Lilia Calvillo Hemoglobin (Bld) [Mass/Vol] 11.8 g/dL Critically low 12.0-16.0 [facility] Comment on above: Performed By: #### G TT3P #### [facility] [address] [place] [address] Dr. Lilia Calvillo IG # 0.05 10e3/ul Critically high 0.00-0.03 [facility] Comment on above: Performed By: #### G TT3P #### [facility] [address] [address] [address] Lilia Calvillo IG % 0.5 % Normal 0.0-0.5 [facility] Comment on above: Performed By: #### G TT3P #### [facility] [address] [place] [address] Dr. Lilia Calvillo LYMPH # 2.0 103/ul Normal 1.2-3.8 [facility] Comment on above: Performed By: #### G TT3P #### [facility] [address] [place] [address] Dr. Lilia Calvillo Lymphocytes/100 WBC (Bld) 20.7 % Normal 20.5-60.0 [facility] Comment on above: Performed By: #### G TT3P #### [facility] [address] [place] [address] Dr. Lilia Calvillo MANUAL DIFF REQ NO Normal [facility] Comment on above: Performed By: #### G TT3P #### [facility] [address] [place] [address] Dr. Lilia Calvillo MCH (RBC) [Entitic mass] 28.7 pg Normal 26.7-34.0 [facility] Comment on above: Performed By: #### G TT3P #### [facility] [address] [place] [address] Dr. Lilia Calvillo MCHC (RBC) [Mass/Vol] 32.6 g/dL Normal 29.9-35.2 [facility] Comment on above: Performed By: #### G TT3P #### [facility] [address] [place] [address] Dr. Lilia Calvillo MCV (RBC) [Entitic vol] 88.1 fL Normal 81.0-99.0 [facility] Comment on above: Performed By: #### G TT3P #### [facility] [address] [place] [address] Dr. Lilia Calvillo MONO # 0.5 103/ul Normal 0.3-0.8 [facility] Comment on above: Performed By: #### G TT3P #### [facility] [address] [place] [address] Dr. Lilia Calvillo Monocytes/100 WBC (Bld) 5.7 % Normal 1.7-12.0 [facility] Comment on above: Performed By: #### G TT3P #### [facility] [address] [place] [address] Dr. Lilia Calvillo NEUT # 6.8 103/ul Critically high 1.4-6.5 [facility] Comment on above: Performed By: #### G TT3P #### [facility] [address] [place] [address] Dr. Lilia Calvillo Neutrophils/100 WBC (Bld) 72.3 % Normal 43.0-75.0 [facility] Comment on above: Performed By: #### G TT3P #### [facility] [address] [place] [address] Dr. Lilia Calvillo Platelet mean volume (Bld) [Entitic vol] 13.2 fL Normal 9.5-13.5 [facility] Comment on above: Performed By: #### G TT3P #### [facility] [address] [place] [address] Dr. Lilia Calvillo PLT 130 103/ul Critically low 150-450 [facility] Comment on above: Performed By: #### G TT3P #### [facility] [address] [place] [address] Dr. Lilia Calvillo RBC 4.11 106/ul Critically low 4.20-5.40 [facility] Comment on above: Performed By: #### G TT3P #### [facility] [address] [place] [address] Dr. Lilia Calvillo WBC 9.5 103/ul Normal 4.0-11.0 [facility] Comment on above: Performed By: #### G TT3P #### [facility] [address] [place] [address] Dr. Lilia Calvillo DRUG SCREEN RAPID (URINE)on 10-16-2021 AMP Negative Normal NEGATIVE [facility] Comment on above: Performed By: #### G TT3P #### [facility] [address] [place] [address] Dr. Lilia Calvillo BAR Negative Normal NEGATIVE [facility] Comment on above: Performed By: #### G TT3P #### [facility] [address] [place] [address] Dr. Lilia Calvillo BUP Negative Normal NEGATIVE [facility] Comment on above: Performed By: #### G TT3P #### [facility] [address] [place] [address] Dr. Lilia Calvillo BZO Negative Normal NEGATIVE [facility] Comment on above: Performed By: #### G TT3P #### [facility] [address] [place] [address] Dr. Lilia Calvillo LAWANDA Negative Normal NEGATIVE [facility] Comment on above: Performed By: #### G TT3P #### [facility] [address] [place] [address] Dr. Lilia Calvillo CUT-OFFS SEE BELOW Normal [facility] Comment on above: Result Comment: AMP (Amphetamine): [...] TT3P #### [facility] [address] [place] [address] Dr. Lilia Calvillo DRUG CUT HEADER DRUG CLASS TEST SYST EM CUT-OFF CONCENTRATIONS ARE FOLLOWS: Normal [facility] Comment on above: Performed By: #### G TT3P #### [facility] [address] [place] [address] Dr. Lilia Calvillo mAMP Negative Normal NEGATIVE [facility] Comment on above: Performed By: #### G TT3P #### [facility] [address] [place] [address] Dr. Lilia Calvillo MTD Negative Normal NEGATIVE [facility] Comment on above: Performed By: #### G TT3P #### [facility] [address] [place] [address] Dr. Lilia Calvillo OPI Negative Normal NEGATIVE [facility] Comment on above: Performed By: #### G TT3P #### [facility] [address] [place] [address] Dr. Lilia Calvillo OXY Negative Normal NEGATIVE [facility] Comment on above: Performed By: #### G TT3P #### [facility] [address] [place] [address] Dr. Lilia Calvillo PCP Negative Normal NEGATIVE [facility] Comment on above: Performed By: #### G TT3P #### [facility] [address] [place] [address] Dr. Lilia Calvillo PPX Negative Normal NEGATIVE [facility] Comment on above: Performed By: #### G TT3P #### [facility] [address] [place] [address] Dr. Lilia Calvillo TCA Negative Normal NEGATIVE [facility] Comment on above: Performed By: #### G TT3P #### [facility] [address] [place] [address] Dr. Lilia Calvillo THC Negative Normal NEGATIVE [facility] Comment on above: Performed By: #### G TT3P #### [facility] [address] [place] [address] Dr. Lilia Calvillo TYPE AND SCREENon 10-16-2021 TYPE AND SCREEN Negative Normal [facility] Comment on above: Performed By: #### G TT3P #### [facility] [address] [place] [address] Dr. Lilia Calvillo UA (CLEAN/CATCH) SEXOLOGIST/MICRO I F IND.on 10-16-2021 Bilirubin Ql (U) Negative Normal NEGATIVE [facility] Comment on above: Performed By: #### U ACSIND #### [facility] [address] [place] [address] Dr. Lilia Calvillo Clarity (U) CLEAR Normal CLEAR [facility] Comment on above: Performed By: #### U ACSIND #### [facility] [address] [place] [address] Dr. Lilia Calvillo Color (U) LT. YELLOW Normal YELLOW [facility] Comment on above: Performed By: #### U ACSIND #### [facility] [address] [place] [address] Dr. Lilia Calvillo Glucose Ql (U) Negative Normal NEGATIVE [facility] Comment on above: Performed By: #### U ACSIND #### [facility] [address] [place] [address] Dr. Lilia Calvillo Hemoglobin Ql (U) Negative Normal NEGATIVE [facility] Comment on above: Performed By: #### U ACSIND #### [facility] [address] [place] [address] Dr. Lilia Calvillo Ketones Ql (U) Negative Normal NEGATIVE [facility] Comment on above: Performed By: #### U ACSIND #### [facility] [address] [place] [address] Dr. Lilia Calvillo LEUKOCYTES Negative Normal NEGATIVE [facility] Comment on above: Performed By: #### U ACSIND #### [facility] [address] [place] [address] Dr. Lilia Calvillo Nitrite Ql (U) Negative Normal NEGATIVE [facility] Comment on above: Performed By: #### U ACSIND #### [facility] [address] [place] [address] Dr. Lilia Calvillo pH (U) 6.5 [pH] Normal 5-9 [facility] Comment on above: Performed By: #### U ACSIND #### [facility] [address] [place] [address] Dr. Lilia Calvillo SPEC GRAVITY 1.020 Normal 1.005-<=1. 025 [facility] Comment on above: Performed By: #### U ACSIND #### [facility] [address] [place] [address] Dr. Lilia Calvillo UA PROTEIN Negative Normal NEGATIVE/ TRACE [facility] Comment on above: Performed By: #### U ACSIND #### [facility] [address] [place] [address] Dr. Lilia Calvillo UR MICRO IND NOT INDICATED Normal [facility] Comment on above: Performed By: #### U ACSIND #### [facility] [address] [place] [address] Dr. Lilia Calvillo Urobilinogen Qn (U) 0.2 {Ann'U}/dL Normal 0.2 - 1. 0 [facility] Comment on above: Performed By: #### U ACSIND #### [facility] [address] [place] [address] Dr. Lilia Calvillo [facility]on 09-20 SARS-CoV-2 (COVID-19) RNA TORRES+probe Ql (Unsp spec) Not detected Normal NOT DETECTED [facility] Comment on above: Result Comment: This test is not yet approved or cleared by the [place] FDA. When there are no FDA-approved or cleared tests available, and other criteria are met, FDA can make tests available under an emergency access mechanism called an Emergency Use Authorization (EUA). The EUA for this test is supported by the [place] of Health and Human Service's (HHS's) declaration [...] TT3P #### [facility] [address] [place] [address] Dr. Lilia Calvillo CHLAMYDIA/GONOCOCCUS TORRES ( AB/URINE/PAPon 09-27-2021 Chlamydia trachomatis, TORRES Negative Normal Negative [facility] Comment on above: Performed By: #### C T/NGNA #### [facility] [address] [place] [address] Dr. Lilia Calvillo Neisseria gonorrhoeae, TORRES Negative Normal Negative [facility] Comment on above: Performed By: #### C T/NGNA #### [facility] [address] [place] [address] Dr. Lilia Calvillo GROUP B STREP CULTUREon S. agalactiae Ag Ql (Unsp spec) Culture Observations: NEGATIVE FOR GROUP B STREPTOCOCCUS. Normal [facility] Comment on above: Performed By: #### G TT3P #### [facility] [address] [place] [address] Dr. Lilia Calvillo GTT 3 HR PREGon 07-21-2021 Glucose [Mass/Vol] 92 mg/dL Normal 74-106 [facility] Comment on above: Performed By: #### G TT3P #### [facility] [address] [place] [address] Dr. Lilia Calvillo Glucose [Mass/Vol] 193 mg/dL Normal [facility] Comment on above: Performed By: #### G TT3P #### [facility] [address] [place] [address] Dr. Lilia Calvillo Glucose [Mass/Vol] 146 mg/dL Normal [facility] Comment on above: Performed By: #### G TT3P #### [facility] [address] [place] [address] Dr. Lilia Calvillo Glucose [Mass/Vol] 123 mg/dL Normal [facility] Comment on above: Performed By: #### G TT3P #### [facility] [address] [place] [address] Dr. Lilia Calvillo GLUCOSE - 1HRon 07-09-2021 Glucose [Mass/Vol] 167 mg/dL Critically high 74-106 [facility] Comment on above: Performed By: #### G LU1HR #### [facility] [address] [place] [address] Dr. Lilia Calvillo HEMOGRAM AND PLATELon 2021 Hematocrit (Bld) [Volume fraction] 33.9 % Critically low 36.0-48.0 [facility] Comment on above: Performed By: #### H H #### [facility] [address] [place] [address] Dr. Lilia Calvillo Hemoglobin (Bld) [Mass/Vol] 10.9 g/dL Critically low 12.0-16.0 [facility] Comment on above: Performed By: #### H H #### [facility] [address] [place] [address] Dr. Lilia Calvillo MCH (RBC) [Entitic mass] 29.9 pg Normal 26.7-34.0 [facility] Comment on above: Performed By: #### H H #### [facility] [address] [place] [address] Dr. Lilia Calvillo MCHC (RBC) [Mass/Vol] 32.2 g/dL Normal 29.9-35.2 [facility] Comment on above: Performed By: #### H H #### [facility] [address] [place] [address] Dr. Lilia Calvillo MCV (RBC) [Entitic vol] 93.1 fL Normal 81.0-99.0 [facility] Comment on above: Performed By: #### H H #### [facility] [address] [place] [address] Dr. Lilia Calvillo PLT 153 103/ul Normal 150-450 [facility] Comment on above: Performed By: #### H H #### [facility] [address] [place] [address] Dr. Lilia Calvillo RBC 3.64 106/ul Critically low 4.20-5.40 [facility] Comment on above: Performed By: #### H H #### [facility] [address] [place] [address] Dr. Lilia Calvillo WBC 8.4 103/ul Normal 4.0-11.0 [facility] Comment on above: Performed By: #### H H #### [facility] [address] [place], [place] [id number] Dr. Lilia Calvillo US PREG ANATOMY SINGLEon [...] by ultrasound, 40% by expected EDC; FL/AC: 0.628542 FL/BPD: 0.005197 HC/AC: 1.984217 GESTATIONAL AGE: Age by EDC: 20 weeks 0 days ALINA by EDC: 10/23/2021 Age by current US: 19 weeks 4 days ALINA by current US: 10/26/2021 IMPRESSION: Normal anatomy scan *Reference: [facility] Practice Guideline for the performance of Obstetric Ultrasound Examinations, December 20, 2006. Electronically authenticated by: DESTINY BAILEY Date: 2021-06-05 16:17 Normal [facility] AFP MATERNAL FOR SPINA BIFID Aon 05-30-2021 AFP MoM 1.33 Normal [facility] Comment on above: Performed By: #### A FPMAT #### [facility] [address] [address] [address] Lilia Calvillo AFP Value 63.0 ng/mL Normal [facility] Comment on above: Performed By: #### A FPMAT #### [facility] [address] [address] [address] Lilia Calvillo AFP, Serum for Spina Bifida Report Normal [facility] Comment on above: Performed By: #### A FPMAT #### [facility] [address] [address] [address] Lilia Calvillo Comment Comment Normal [facility] Comment on above: Result Comment: Hamlet Sinclair, Ph.D., [facility] Director . References: Available Upon Request. . Multiples Of Median Cutoffs For AFP Elevations Sandoval 2.5 Black 2.8 IDD 2.0 Twins 4.5 Abbreviation Definitions IDD - Insulin Dep Diabetes OSBR - Open Spina Bifida Risk . For further inquiries contact [employer] at [phone]. Performed By: #### A FPMAT #### [facility] [address] [address] [address] Lilia Calvillo Gest Age Collection Date 18.9 weeks Normal [facility] Comment on above: Performed By: #### A FPMAT #### [facility] [address] [address] [address] Lilia Calvillo Gestat, Age Based on Ultrasound Normal [facility] Comment on above: Result Comment: 18.9 on 05/28/2021 Recalculations are not recommended when gestational dating by LMP and ultrasound are within 10 days. Performed By: #### A FPMAT #### [facility] [address] [place] [address] Dr. Lilia Calvillo Insulin Dep Diabetes No Normal [facility] Comment on above: Performed By: #### A FPMAT #### [facility] [address] [address] [address] Lilia Calvillo Interpretation Comment Normal [facility] Comment on above: Result Comment: Inte [...] Customer Services to discuss available options. The [employer] recommends amniocentesis be offered to women age 35 and older. Performed By: #### A FPMAT #### [facility] [address] [place] [address] Dr. Lilia Calvillo [age] Normal [facility] Comment on above: Performed By: #### A FPMAT #### [facility] [address] [place] [address] Dr. Lilia Calvillo Multiple Gestation No Normal [facility] Comment on above: Performed By: #### A FPMAT #### [facility] [address] [place] [address] Dr. Lilia Calvillo OSBR Risk 1 [place] 4399 Normal [facility] Comment on above: Performed By: #### A FPMAT #### [facility] [address] [place] [address] Dr. Lilia Calvillo PDF . [facility] Comment on above: Result Comment: This test was developed and its performance characteristics determined by [facility]. It has not been cleared or approved by the Food and Drug Administration. Performed By: #### A FPMAT #### [facility] [address] [place] [address] Dr. Lilia Calvillo Race Normal [facility] Comment on above: Performed By: #### A FPMAT #### [facility] [address] [place] [address] Dr. Lilia Calvillo Test Results: Negative Normal [facility] Comment on above: Performed By: #### A FPMAT #### [facility] [address] [place] [address] Dr. Lilia Calvillo Q - CULTURE,URINE,ROUTINEon 05-21-2021 CULTURE, URINE, ROUTINE SEE NOTE Normal [facility] [employer] Comment on above: Order Comment: [facility] performed at: [employer] [facility], [address] [facility], [address] [place] [address], [address] [place] [address], Sewage Plant Operator: Wilber Wilson MD [facility] Collection Date/Time: [facility] Results Received Date/Time: [facility] Reported Date/Time: Result Comment: CULT URE, URINE, ROUTINE Micro Number: [id number] Test Status: Final Specimen Source: Urine Specimen Quality: Adequate Result: Mixed genital yair isolated. These superficial bacteria are not indicative of a urinary tract infection. No further organism identification is warranted on this specimen. If clinically indicated, recollect clean-catch, mid-stream urine and transfer immediately to Urine Culture Transport Tube. Performed By: #### 3 020X, 6304R, %SBCULI #### [facility] Default [address] [place] [address] Q - UR CULT [id number] 2021 REFLEXIVE URINE CULTURE SEE NOTE Normal [facility] [employer] Comment on above: Order Comment: [facility] performed at: [employer] [facility], [address] [facility], [address] [place] [address], [address] [place] [address], Sewage Plant Operator: Wilber Wilson MD [facility] Collection Date/Time: [facility] Results Received Date/Time: [facility] Reported Date/Time: Result Comment: CULT URE INDICATED - RESULTS TO FOLLOW Performed By: #### 3 020X, 6304R, %SBCULI #### [facility] Default [address] [place] [address] Q - URINALYSIS,COMPLETE,WITH REFLEX TO CULTUREon 05-21-2021 Appearance (U) TURBID Abnormal CLEAR [facility] Sql Engineer Comment on above: Order Comment: [facility] performed at: [employer] [facility], [address] , [address] [place] [address], [address] [place] [address], Sewage Plant Operator: Wilber Wilson MD [facility] Collection Date/Time: [facility] Results Received Date/Time: [facility] Reported Date/Time: [id number] Performed By: #### 3 020X, 6304R, %SBCULI #### [facility] Default [address] [place] [address] BACTERIA MODERATE Abnormal NONE SEEN [facility] [employer] Comment on above: Order Comment: [facility] performed at: [employer], [employer] [facility], [address] , [address] [place] [address], [address] [place] [address], Sewage Plant Operator: Wilber Wilson MD [facility] Collection Date/Time: [facility] Results Received Date/Time: [facility] Reported Date/Time: Performed By: #### 3 020X, 6304R, %SBCULI #### [facility] Default [address] [place] [address] Bilirubin Ql (U) Negative Normal NEGATIVE [facility] Specialist Comment on above: Order Comment: [facility] performed at: [employer] [facility], [address] , [address] [place] [address], [address] [place] [address], Sewage Plant Operator: Wilber Wilson MD [facility] Collection Date/Time: [facility] Results Received Date/Time: [facility] Reported Date/Time: Performed By: #### 3 020X, 6304R, %SBCULI #### [facility] Default [address] [place] [address] Color (U) YELLOW Normal YELLOW [facility] [employer] Comment on above: Order Comment: [facility] performed at: [employer] [facility], [address] , [address] [place] [address], [address] [place] [address], Sewage Plant Operator: Wilber Wilson MD [facility] Collection Date/Time: [facility] Results Received Date/Time: [facility] Reported Date/Time: Performed By: #### 3 020X, 6304R, %SBCULI #### [facility] Default [address] [place] [address] Glucose Ql (U) Negative Normal NEGATIVE [facility] Specialist Comment on above: Order Comment: [facility] performed at: [employer] [facility], [address] [facility], [address] [place] [address], [address] [place] [address], Sewage Plant Operator: Wilber Wilson MD [facility] Collection Date/Time: [facility] Results Received Date/Time: [facility] Reported Date/Time: Performed By: #### 3 020X, 6304R, %SBCULI #### [facility] Default [address] [place] [address] HYALINE CAST NONE SEEN Normal NONE SEEN [facility] Sql Engineer Comment on above: Order Comment: [facility] performed at: [employer], [employer] [facility], [address] [place] [address], [address] [place] [address], [address] [place] [address], Sewage Plant Operator: Wilber Wilson MD [facility] Collection Date/Time: [facility] Results Received Date/Time: [facility] Reported Date/Time: Performed By: #### 3 020X, 6304R, %SBCULI #### [facility] Default [address] [place] [address] Ketones Ql (U) TRACE Abnormal NEGATIVE [facility] Specialist Comment on above: Order Comment: [facility] performed at: [employer], [employer] [facility], [address] [place] [address], [address] [place] [address], [address] [place] [address], Sewage Plant Operator: Wilber Wilson MD [facility] Collection Date/Time: [facility] Results Received Date/Time: [facility] Reported Date/Time: Performed By: #### 3 020X, 6304R, %SBCULI #### [facility] Default [address] [place] [address] Leukocyte esterase Test strip Ql (U) 2+ Abnormal NEGATIVE [facility] Specialist Comment on above: Order Comment: [facility] performed at: [employer], [employer] [facility], [address] [place] [address], [address] [place] [address], [address] [place] [address], Sewage Plant Operator: Wilber Wilson MD [facility] Collection Date/Time: [facility] Results Received Date/Time: [facility] Reported Date/Time: Performed By: #### 3 020X, 6304R, %SBCULI #### [facility] Default [address] [place] [address] Nitrite Ql (U) Negative Normal NEGATIVE [facility] Sql Engineer Comment on above: Order Comment: [facility] performed at: [employer], [employer] [facility], [address] [facility], [address] [place] [address], [address] [place] [address], Sewage Plant Operator: Wilber Wilson MD [facility] Collection Date/Time: [facility] Results Received Date/Time: [facility] Reported Date/Time: Performed By: #### 3 020X, 6304R, %SBCULI #### [facility] Default [address] [place] [address] OCCULT BLOOD Negative Normal NEGATIVE [facility] Sql Engineer Comment on above: Order Comment: [facility] performed at: [employer], [employer] [facility], [address] [facility], [address] [place] [address], [address] [place] [address], Sewage Plant Operator: Wilber Wilson MD [facility] Collection Date/Time: [facility] Results Received Date/Time: [facility] Reported Date/Time: Performed By: #### 3 020X, 6304R, %SBCULI #### [facility] Default [address] [place] [address] pH (U) 5.5 [pH] Normal 5.0-8.0 [facility] Sql [employer] Comment on above: Order Comment: [facility] performed at: [employer], [employer] [facility], [address] [facility], [address] [place] [address], [address] [place] [address], Sewage Plant Operator: Wilber Wilson MD [facility] Collection Date/Time: [facility] Results Received Date/Time: [facility] Reported Date/Time: Performed By: #### 3 020X, 6304R, %SBCULI #### [facility] Default [address] [place] [address] Protein Ql (U) Negative Normal NEGATIVE [facility] Specialist Comment on above: Order Comment: [facility] performed at: [employer], [employer] [facility], [address] [place] [address], [address] [place] [address], [address] [place] [address], Sewage Plant Operator: Wilber Wilson MD [facility] Collection Date/Time: [facility] Results Received Date/Time: [facility] Reported Date/Time: Performed By: #### 3 020X, 6304R, %SBCULI #### [facility] Default [address] [place] [address] RBC NONE SEEN Normal < OR = 2 [facility] Sql Engineer Comment on above: Order Comment: [facility] performed at: [employer], [employer] [facility], [address] [place] [address], [address] [place] [address], [address] [place] [address], Sewage Plant Operator: Wilber Wilson MD [facility] Collection Date/Time: [facility] Results Received Date/Time: [facility] Reported Date/Time: Performed By: #### 3 020X, 6304R, %SBCULI #### [facility] Default [address] [place] [address] Specific gravity (U) [Rel density] 1.029 Normal 1.001-1.03 5 [facility] Sql [employer] Comment on above: Order Comment: [facility] performed at: [employer] [facility], [address] [place] [address], [address] [place] [address], [address] [place] [address], Sewage Plant Operator: Wilber Wilson MD [facility] Collection Date/Time: [facility] Results Received Date/Time: [facility] Reported Date/Time: Performed By: #### 3 020X, 6304R, %SBCULI #### [facility] Default [address] [place] [address] SQUAMOUS EPITHELIAL CELLS 10-20 Abnormal < OR = 5 [facility] Comment on above: Order Comment: [facility] performed at: [employer] [facility], [address], [address] [place], [address], Sewage Plant Operator: Wilber Wilson MD [facility] Collection Date/Time: [facility] Results Received Date/Time: [facility] Reported Date/Time: Performed By: #### 3 020X, 6304R, %SBCULI #### [facility] Default [address] [place] [address] WBC 20-40 Abnormal < OR = 5 [facility] Sql Engineer Comment on above: Order Comment: [facility] performed at: [employer], [employer] [facility], [address], [address] [place], [address], Sewage Plant Operator: Wilber Wilson MD [facility] Collection Date/Time: [facility] Results Received Date/Time: [facility] Reported Date/Time: Performed By: #### 3 020X, 6304R, %SBCULI #### [facility] Default [address] [place] [address] US PREG LIMITEDon 05-09-2021 US PREG LIMITED [...] Normal The [facility] HEPATITIS C VIRUS AB W/ REFL EX QUANTon 04-08-2021 HCV AB >11.0 Critically high 0.0-0.9 The [facility] Comment on above: Result Comment: . Performed By: #### H CVPCRR #### [facility] [address] [address] [address] Lilia Calvillo HCV log10 Normal [facility] Comment on above: Performed By: #### H CVPCRR #### [facility] [address] [address] [address] Lilia Calvillo Hep C Quantitation Not detected Normal [facility] Comment on above: Performed By: #### H CVPCRR #### [facility] [address] [place] [address] Dr. Lilia Calvillo Interpretation Comment Normal [facility] Comment on above: Result Comment: Posi tive HCV antibody screen without the presence of HCV RNA is consistent with a resolved past infection or a false positive HCV antibody. Consider repeat testing after one month. Performed By: #### H CVPCRR #### [facility] [address] [place] [address] Dr. Lilia Calvillo Test Information: Comment Normal The [facility] Comment on above: Result Comment: The quantitative range of this assay is 15 IU/mL to 100 million IU/mL. Performed By: #### H CVPCRR #### [facility] [address] [place] [address] Dr. Lilia Calvillo RUBI BOX TEST PT SEND OUTo n 04-03-2021 SENT TO REF LAB 04/03/2021 Normal [facility] Comment on above: Performed By: #### G TT3P #### [facility] [address] [place] [address] Dr. Lilia Calvillo US PREG TVon 04-03-2021 [...] Normal [facility] Drug Screen Comprehensive Ur ineon 04-23-2017 Adulterants Negative Normal [facility] Comment on above: Result Comment: Franki arzola Decision Limit: General Oxidants 200 ug/mL The [...] developed and the performance characteristicsdetermined by [facility]. Thisconfirmation testing has not been cleared or approvedby the FDA. The laboratory is regulated under CLIA asqualified to perform high-complexity testing. This testis used for patient testing purposes. It should not beregarded as investigational or for research.Test performed at [facility],[address], [place] [address] Kaagykm G. Finn, MD - Concrete Finishing Machine Operator Performed By: #### 6 9742-5, 16872-5, 45323-5, 08313-4, 10200-2, 84720-1, 59698-1, 17725-1 ####[facility] [address], [place]#### 564[address]-1, 66294-6 ####[facility], [facility] [address], [place] Creatinine Urine - Toxicology 48 mg/dL Normal [facility] Comment on above: Performed By: #### 6 9742-5, 09533-1, 00871-1, 70703-5, 03499- 4, 93352-8, 74917-1, 06892-3 ####[facility] [address], [place]#### 55883-5, 28201-6 ####[facility], [facility] [address], [place] Drug Scr Urine SeeBelow Normal [facility] Comment on above: Result Comment: Drug s Detected in Urine: THC Cotinine Caffeine All drugs identified should be considered presumptive positives unless they have been identified by an alternate chemical method. These drugs have been qualitatively identified by either or both immunoassay or gas chromatography/mass spectrometry (GC/MS) Performed By: #### 6 9742-5, 24967-3, 56903-5, 32432-1, 60335-7, 51485-3, 92362-4, 38818-1 ####[facility] [address], [place]#### 08339-9, 89015-6 ####[facility], [facility] [place], [place] Hepatitis C RNA (PCR) Quanti tativeon 04-23-2017 Hepatitis C PCR Log IU/ml 3.34 see fn High <1.08 [facility] Comment on above: Result Comment: Unit s: Log (10) IU/mLThis procedure utilizes a real-time polymerase chainreaction test from [employer] The amplificationtarget is a conserved region of [...] not rule out infection.Test performed at [facility],[address] [place] [address] Leztyko G. Finn, MD - Concrete Finishing Machine Operator Performed By: #### 6 9742-5, 33626-9, 47573-6, 28501-5, 05177-7, 06605-7, 84190-1, 93176-6 ####[facility] [address], [place]#### 53984-1, 03425-4 ####[facility], [address] [facility], [place] Hepatitis C RNA PCR seefn High <12 [facility] Comment on above: Result Comment: Resu lt: 2,182 Performed By: #### 6 9742-5, 69018-6, 98489-3, 47642-8, 02231-7, 13232-1, 24749-2, 74315-3 ####[facility] [address], [place]#### 16259-2, 54971-6 ####[facility], [facility] [address], [place] Hepatitis C Virus RNA Ql DETECTED Abnormal seefn [facility] Comment on above: Result Comment: Ref Range: Not detected Performed By: #### 6 9742-5, 92700-3, 52624-5, 97114-3, 30348-2, 86313-1, 28773-0, 46690-3 ####[facility] [address], [place]#### 57227-0, 96953-3 ####[facility], [address] [facility] [place] Hepatitis A Antibody Totalon 04-22-2017 Hepatitis A Antibody Negative Normal Negative [facility] Comment on above: Result Comment: Test performed at [facility],[address] [place] [address] Kskubji G. Finn, MD - Concrete Finishing Machine Operator Performed By: #### 6 9742-5, 46544-7, 62254-9, 76249-5, 24042-9, 06521-4, 39849-5, 97108-6 ####[facility] [address], [place]#### 77253-2, 38533-6 ####[facility], [address] [place] Hepatitis B Core Antibody Ig Mon 04-21-2017 Interpretation and review of laboratory results Negative Normal NEGATIVE [facility] Comment on above: Result Comment: Hepa titis [...] POS VACCINATION Performed By: #### 6 9742-5, 81252-8, 01385-3, 61705-6, 95769-7, 59974-9, 03944-6, 41236-6 ####[facility] [address], [place]#### 11626-9, 93175-1 ####[facility], [address] [facility], [place] Hepatitis C Antibodyon 04-21 Hepatitis C Antibody Positive Abnormal NEGATIVE [facility] Comment on above: Result Comment: For a [...] longer available. Performed By: #### 6 9742-5, 26141-2, 39592-1, 26942-8, 15288-7, 75351-9, 55439-8, 33328-1 ####[facility] [address], [place]#### 21126-9, 16554-0 ####[facility], [address], [place] Hepatitis C Antibody Positive Abnormal NEGATIVE [facility] Comment on above: Result Comment: For a [...] longer available. Performed By: #### 6 9742-5, 56777-8, 48853-3, 36636-0, 69517-7, 08214-2, 07156-4, 03543-7 ####[facility] [address], [place]#### 73939-1, 15162-7 ####[facility], [address], [place] CBC with Differentialon 03-24 Basophils Auto #/vol (Bld) 0.00 thou/mcL Normal 0.00-0.20 [facility] Comment on above: Performed By: #### 6 9742-5, 67421-0, 34925-2, 63647-7, 92760- 4, 71504-4, 87983-8, 80077-8 ####[facility] [address], [place]#### 61536-8, 98821-1 ####[facility], [address], [place] Basophils/100 WBC Auto (Bld) 0.2 % Normal 0.0-2.0 [facility] Comment on above: Performed By: #### 6 9742-5, 11392-2, 61957-7, 42385-5, 09226- 4, 78253-4, 51658-4, 35336-4 ####[facility] [address], [place]#### 67521-1, 56661-3 ####[facility], [address], [place] Eosinophils 0.10 thou/mcL Normal 0.00-0.70 [facility] Comment on above: Performed By: #### 6 9742-5, 46124-3, 52873-3, 83354-5, 92328- 4, 92551-2, 96916-7, 68972-9 ####[facility] [address], [place]#### 34684-4, 29977-1 ####[facility], [facility] [address], [place] Eosinophils/100 leukocytes 1.8 % Normal 0.0-7.0 [facility] Comment on above: Performed By: #### 6 9742-5, 46197-4, 06635-4, 00999-2, 15257- 4, 68593-9, 40292-9, 48595-5 ####[facility] [address], [place]#### 21077-9, 84678-1 ####[facility], [facility] [address], [place] Erythrocyte distribution width Auto Ratio (RBC) 13.7 % Normal 11.0-14.8 [facility] Comment on above: Performed By: #### 6 9742-5, 53142-0, 90337-5, 19521-1, 74515- 4, 76401-8, 94703-7, 40915-6 ####[facility] [address], [place]#### 72601-7, 02229-3 ####[facility], [facility] [address], [place] Erythrocytes (RBC) 4.15 million/mcL Normal 3.80-5.10 [facility] Comment on above: Performed By: #### 6 9742-5, 42710-9, 04691-5, 13102-9, 78099- 4, 19687-1, 13102-4, 85495-7 ####[facility] [address], [place]#### 71245-4, 73303-2 ####[facility], [facility] [address] [place], [place] Hematocrit (HCT) 37.0 % Normal 35.0-45.0 [facility] Comment on above: Performed By: #### 6 9742-5, 78920-3, 59429-7, 93321-9, 32818- 4, 04007-0, 32062-6, 64816-5 ####[facility] [address], [place]#### 69126-2, 40646-9 ####[facility], [facility] [address] Hemoglobin mass conc (Bld) 12.2 g/dL Normal 12.0-16.0 [facility] Comment on above: Performed By: #### 6 9742-5, 62131-5, 26875-4, 72088-1, 53345- 4, 46361-1, 75031-1, 34711-4 ####[facility] [address], [place]#### 04374-4, 60693-1 ####[facility], [facility] [address] Lymphocytes 1.80 thou/mcL Normal 1.00-4.80 [facility] Comment on above: Performed By: #### 6 9742-5, 22279-3, 13454-4, 11218-3, 69745- 4, 53054-9, 02048-4, 70678-4 ####[facility] [address], [place]#### 43278-7, 98587-9 ####[facility], [address], [place] Lymphocytes/100 leukocytes 34.6 % Normal 22.0-44.0 [facility] Comment on above: Performed By: #### 6 9742-5, 88802-5, 28069-6, 13494-0, 18916- 4, 39959-1, 66209-8, 76607-9 ####[facility] [address], [place]#### 84265-9, 04601-3 ####[facility], [address], [place] MCH 29.4 Picograms Normal 27.0-34.0 [facility] Comment on above: Performed By: #### 6 9742-5, 94838-1, 34228-2, 55810-0, 14278- 4, 46370-7, 55761-7, 71683-7 ####[facility] [address], [place]#### 80214-4, 33338-6 ####[facility], [address], [place] MCHC mass conc (RBC) 33.0 g/dL Normal 32.0-36.0 [facility] Comment on above: Performed By: #### 6 9742-5, 19095-6, 90190-1, 10121-6, 42324- 4, 83644-2, 51901-8, 87921-0 ####[facility] [address], [place]#### 38357-2, 48219-1 ####[facility], [address], [place] MCV 89.2 fL Normal 80.0-97.0 [facility] Comment on above: Performed By: #### 6 9742-5, 40940-5, 05658-3, 16354-5, 86185- 4, 15785-0, 81271-6, 77800-6 ####[facility] [address], [place]#### 62123-8, 68285-8 ####[facility], [address], [place] Monocytes 0.30 thou/mcL Normal 0.00-0.90 [facility] Comment on above: Performed By: #### 6 9742-5, 10586-7, 81574-3, 81472-9, 67576- 4, 30353-9, 72196-3, 81748-6 ####[facility] [address], [place]#### 42732-5, 85827-1 ####[facility], [facility] [address], [place] Monocytes/100 leukocytes 6.0 % Normal 0.0-12.0 [facility] Comment on above: Performed By: #### 6 9742-5, 40300-9, 91320-2, 01973-5, 97195- 4, 72408-8, 54180-0, 67324-4 ####[facility] [address], [place]#### 50021-6, 76315-4 ####[facility], [address], [place] Neutrophils 3.00 thou/mcL Normal 1.80-7.70 [facility] Comment on above: Performed By: #### 6 9742-5, 01505-2, 38026-6, 01415-2, 47340- 4, 89372-2, 58780-1, 16125-3 ####[facility] [address], [place]#### 13766-0, 18726-5 ####[facility], [facility] [address], [place] Neutrophils/100 WBC Auto (Bld) 57.4 % Normal 40.0-70.0 [facility] Comment on above: Performed By: #### 6 9742-5, 12213-4, 24858-3, 75049-9, 11711- 4, 92845-3, 44587-0, 05254-9 ####[facility] [address], [place]#### 20672-6, 59144-7 ####[facility], [address], [place] Platelet mean volume (PMV) 11.9 fL Normal 6.2-12.1 [facility] Comment on above: Performed By: #### 6 9742-5, 67088-5, 12707-8, 14551-2, 94620- 4, 69721-9, 36538-3, 13958-5 ####[facility] [address], [place]#### 75566-0, 51043-3 ####[facility], [facility] [address], [place] Platelets 173 thou/mcL Normal 142-424 [facility] Comment on above: Performed By: #### 6 9742-5, 75880-2, 27981-5, 67875-5, 40844- 4, 66010-1, 70130-7, 89306-6 ####[facility] [address], [place]#### 60052-7, 65745-4 ####[facility], [facility] [address], [place] WBC (Leukocytes) 5.2 thou/mcL Normal 4.6-10.2 [facility] Comment on above: Performed By: #### 6 9742-5, 59490-9, 06459-2, 18113-7, 31217- 4, 66319-6, 31127-9, 97133-2 ####[facility] [address], [place]#### 74783-6, 79144-4 ####[facility], [facility] [address], [place] Comprehensive Metabolic Pane blanquita 04-20-2017 Alanine aminotransferase (ALT) 37 Units/L Normal 14-63 [facility] Comment on above: Performed By: #### 6 9742-5, 34724-3, 35113-7, 17482-6, 30856- 4, 56044-6, 53620-8, 70194-4 ####[facility] [address], [place]#### 47277-7, 13576-9 ####[facility], [address], [place] Albumin 4.2 g/dL Normal 3.5-4.8 [facility] Comment on above: Performed By: #### 6 9742-5, 16893-1, 40172-6, 72555-3, 35682- 4, 10522-2, 49594-5, 18854-3 ####[facility] [address], [place]#### 31204-9, 68604-9 ####[facility], [address], [place] Alkaline phosphatase (ALP) 45 Units/L Normal 32-91 [facility] Comment on above: Performed By: #### 6 9742-5, 57040-0, 99903-7, 75013-0, 79314- 4, 98966-4, 67738-7, 59285-0 ####[facility] [address], [place]#### 36276-0, 75315-9 ####[facility], [address], [place] Anion gap 10.0 mmol/L Normal 6.0-18.0 [facility] Comment on above: Result Comment: PLEA SE NOTE:The calculated Anion Gap(AGAP) does not include Potassium. Performed By: #### 6 9742-5, 77746-0, 11190-7, 54189-5, 25906-3, 11809-0, 39308-6, 87853-6 ####[facility] [address], [place]#### 58956-7, 85288-9 ####[facility], [address], [place] Aspartate aminotransferase (AST) 29 Units/L Normal 15-41 [facility] Comment on above: Performed By: #### 6 9742-5, 64647-0, 85254-5, 06919-0, 88019- 4, 58297-5, 87947-8, 97452-8 ####[facility] [address], [place]#### 04903-1, 34866-3 ####[facility], [address], [place] Bilirubin (total) 0.5 mg/dL Normal 0.3-1.2 [facility] Comment on above: Performed By: #### 6 9742-5, 80373-5, 72355-2, 37409-3, 88226- 4, 37115-2, 01717-5, 41582-5 ####[facility] [address], [place]#### 37743-3, 95493-9 ####[facility], [address], [place] Calcium 9.4 mg/dL Normal 8.9-10.3 [facility] Comment on above: Performed By: #### 6 9742-5, 30438-2, 65801-8, 93664-7, 94778- 4, 34177-0, 46905-1, 69589-9 ####[facility] [address], [place]#### 99700-6, 04654-7 ####[facility], [address], [place] Chloride 102 mmol/L Normal 98-107 [facility] Comment on above: Performed By: #### 6 9742-5, 25015-0, 83318-8, 81219-7, 21808- 4, 00953-1, 31132-9, 85990-5 ####[facility] [address], [place]#### 38129-5, 79580-5 ####[facility], [address], [place] CO2 26 mmol/L Normal 22-32 [facility] Comment on above: Performed By: #### 6 9742-5, 54189-7, 05141-0, 34521-5, 74234- 4, 56912-4, 69437-6, 65691-2 ####[facility] [address], [place]#### 68997-8, 16674-1 ####[facility], [address], [place] Creatinine 0.67 mg/dL Normal 0.60-1.30 [facility] Comment on above: Performed By: #### 6 9742-5, 15123-0, 83684-1, 58300-8, 29840- 4, 22845-0, 74479-0, 79077-3 ####[facility] [address], [place]#### 60541-5, 20438-9 ####[facility], [address], [place] Glucose mass conc 119 mg/dL High 70-110 [facility] Comment on above: Performed By: #### 6 9742-5, 75812-2, 98224-2, 70408-8, 73839- 4, 76853-1, 70423-9, 76461-9 ####[facility] [address], [place]#### 77222-7, 81790-4 ####[facility], [address], [place] Potassium molar conc 4.2 mmol/L Normal 3.6-5.1 [facility] Comment on above: Performed By: #### 6 9742-5, 55244-0, 75705-9, 87815-5, 10474- 4, 91830-0, 77240-3, 96743-8 ####[facility] [address], [place]#### 37022-7, 09617-0 ####[facility], [address], [place] Protein 6.7 g/dL Normal 6.1-7.9 [facility] Comment on above: Performed By: #### 6 9742-5, 38540-4, 70200-9, 53765-5, 57512- 4, 89092-3, 52455-0, 35818-6 ####[facility] [address], [place]#### 68678-1, 24053-3 ####[facility], [facility] [address] [place], [place] Sodium 138 mmol/L Normal 136-145 [facility] Comment on above: Performed By: #### 6 9742-5, 40915-4, 03031-1, 26147-5, 05858- 4, 11017-5, 39703-2, 49068-1 ####[facility] [address], [place]#### 73740-1, 68574-3 ####[facility], [facility] [address] [place], [place] Urea nitrogen 9 mg/dL Normal 8-20 [facility] Comment on above: Performed By: #### 6 9742-5, 38636-6, 58179-1, 80381-7, 64729- 4, 76434-8, 32180-5, 43870-4 ####[facility] [address], [place]#### 20265-5, 76886-0 ####[facility], [facility] [address] [place] Culture Urine + Susceptibili tyon 04-20-2017 Urine culture, bacteria [facility] MicrobiologyPROCEDURE: Culture Urine + SusceptibilitySOURCE: Urine BODY SITE:COLLECTED DATE/TIME: 04/20/2017 09:07 EST RECEIVED DATE/TIME: 04/20/2017 09:07 ESTSTART DATE/TIME: 04/20/2017 09:07 EST FREE TEXT SOURCE: URINE-URINEINTERFACED REPORTSFinal Report []Verified Date/Time/Personnel: 04/21/2017 18:58 EST CONTRIBUTOR_SYSTEM, CO_PNNO GROWTH Normal [facility] Comment on above: Performed By: #### 6 9742-5, 71606-3, 28606-3, 67775-7, 97784- 4, 73293-7, 66300-0, 23513-6 ####[facility] [address], [place]#### 10737-4, 24628-0 ####[facility], [address] [place], [place] GFRaaon 04-20-2017 eGFR (black) mL/min/{1.73_m2} Normal [facility] Comment on above: Result Comment: The MDRD equation has not been validated for those over 70 years, women, patients with serious co-morbid conditions, or with extremes of bodysize, muscle mass of nutritional status. Performed By: #### 6 9742-5, 46028-3, 68098-5, 46511-8, 07369-6, 77423-2, 89531-2, 83151-2 ####[facility] [address], [place]#### 84245-8, 81049-3 ####[facility], [address], [place] GFRbbon 04-20-2017 eGFR (non-black) mL/min/{1.73_m2} Normal [facility] Comment on above: Performed By: #### 6 9742-5, 63404-1, 42902-3, 46092-7, 27123- 4, 17196-1, 49721-9, 18834-1 ####[facility] [address], [place]#### 91580-4, 23072-6 ####[facility], [address], [place] HCG Quantitativeon 8 HCG Qn m[IU]/mL Normal [facility] Comment on above: Result Comment: Preg edna [...] immunoassay method. Performed By: #### 6 9742-5, 42842-6, 67548-3, 02993-5, 22622-1, 16853-7, 39289-2, 91171-3 ####[facility] [address], [place]#### 31778-9, 65037-7 ####[facility], [address], [place] HIV 1 Antibodyon 04-20-2017 HIV Screen NONREAC Normal NONREAC [facility] Comment on above: Result Comment: This is a 4th generation test (P24 AG,HIV-1 AB, HIV-2 AB)Specimens with preliminary reactive results will be confirmed by HIV1/2Differentiation test ([employer]). THE IDENTITY OF A PERSON ON WHOM [...] equitable relief. Performed By: #### 6 9742-5, 45982-2, 88884-6, 77374-8, 62887-1, 90018-9, 52936-7, 14097-4 ####[facility] [address], [place]#### 28971-7, 91276-9 ####[facility], [address] [place], [place] Hepatitis A (HAAb) Antibody IgMon 04-20-2017 Hepatitis A (HAAb) Antibody IgM Negative Normal NEGATIVE [facility] Comment on above: Result Comment: Hepa titis A Virus Antibody-IgM Specific. Performed By: #### 6 9742-5, 54039-1, 94002-1, 56355-3, 73034-6, 40857-9, 10009-5, 08303-9 ####[facility] [address], [place]#### 21211-8, 21492-0 ####[facility], [address], [place] Hepatitis B Core Antibody To shirley 04-20-2017 Interpretation and review of laboratory results Negative Normal NEGATIVE [facility] Comment on above: Performed By: #### 6 9742-5, 86368-7, 31773-3, 15938-4, 95871- 4, 87500-0, 80039-1, 12765-8 ####[address]#### 68098-3, 30167-4 ####[facility], [address], [place] Hepatitis B Surface Antibody on 04-20-2017 Hepatitis B Surface Antibody Interp Negative Normal NEGATIVE [facility] Comment on above: Performed By: #### 6 9742-5, 59418-9, 56769-6, 95045-9, 79791- 4, 25160-0, 34438-0, 14320-0 ####[facility] [address], [place]#### 69106-9, 29165-9 ####[facility], [address], [place] Magnesium Levelon 04-20-2017 Magnesium 2.0 mg/dL Normal 1.8-2.5 [facility] Comment on above: Performed By: #### 6 9742-5, 65432-7, 90795-3, 12622-2, 00658- 4, 42692-9, 14011-8, 91119-8 ####[facility] [address], [place]#### 98027-5, 79536-4 ####[facility], [address] [place], [place] Phosphorus Levelon 8 Phosphorus Level 3.8 mg/dL Normal 2.4-4.7 [facility] Comment on above: Performed By: #### 6 9742-5, 85610-5, 78498-8, 87861-5, 46044- 4, 98209-6, 01323-7, 31941-2 ####[facility] [address], [place]#### 43216-4, 41805-8 ####[facility], [address] [place] Syphilis Screenon 04-20-2017 Syphilis Screen NONREAC Normal NONREAC [facility] Comment on above: Result Comment: No s erologic evidence of syphilis. Performed By: #### 6 9742-5, 38122-1, 80680-2, 40103-5, 74007-0, 56444-2, 61818-6, 35569-1 ####[facility] [address], [place]#### 34610-5, 28271-8 ####[facility], [address] [place], [place] Vital Signs Date Time Vital Sign Value Performing Clinician Facility 10-04-2024 13:59-0400 Body mass index (BMI) [Ratio] 30.62 kg/m2 Pick a Student DO Work Phone: [facility] 10-04-2024 13:59-0400 Body weight 76.54 kg Jaguar Ingrid DO Work Phone: [facility] 10-04-2024 13:59-0400 Diastolic blood pressure 70 mm[Hg] [employer] [facility] Work Phone: [facility] 10-04-2024 13:59-0400 Systolic blood pressure 102 mm[Hg] [employer] [facility] Work Phone: [facility] 09-25-2024 14:26-0400 Body mass index (BMI) [Ratio] 30.45 kg/m2 Jaguar Ingrid DO Work Phone: [facility] 09-25-2024 14:26-0400 Body weight 76.11 kg Jaguar Ingrid DO Work Phone: [facility] 09-25-2024 14:26-0400 Diastolic blood pressure 70 mm[Hg] Jaguar Ingrid DO Work Phone: [facility] 09-25-2024 14:26-0400 Systolic blood pressure 110 mm[Hg] Jaguar Ingrid DO Work Phone: [facility] 09-11-2024 13:41-0400 Body mass index (BMI) [Ratio] 29.28 kg/m2 Sulema PATEL Work Phone: [facility] 09-11-2024 13:41-0400 Body weight 73.21 kg Sulema PATEL Work Phone: [facility] 09-11-2024 13:41-0400 Diastolic blood pressure 68 mm[Hg] Sulema PATEL Work Phone: [facility] 09-11-2024 13:41-0400 Systolic blood pressure 120 mm[Hg] Sulema PATEL Work Phone: [facility] 08-28-2024 10:35-0400 Body mass index (BMI) [Ratio] 29.94 kg/m2 Jaugar Ingrid DO Work Phone: [facility] 08-28-2024 10:35-0400 Body weight 74.84 kg Jaguar Ingrid DO Work Phone: [facility] 08-28-2024 10:35-0400 Diastolic blood pressure 72 mm[Hg] Jaguar Ingrid DO Work Phone: [facility] 08-28-2024 10:35-0400 Systolic blood pressure 118 mm[Hg] Jaguar Ingrid DO Work Phone: [facility] 07-19-2024 10:03-0400 Body mass index (BMI) [Ratio] 28.8 kg/m2 Corby Royal NP Work Phone: [facility] 07-19-2024 10:03-0400 Body weight 72.01 kg Corby Royal [employer] OPERATOR Work Phone: [facility] 07-19-2024 10:03-0400 Diastolic blood pressure 60 mm[Hg] Corby Royal HYDRAULIC PILE HAMMER OPERATOR Work Phone: [facility] 07-19-2024 10:03-0400 Systolic blood pressure 100 mm[Hg] Corby Royal HYDRAULIC PILE HAMMER OPERATOR Work Phone: [facility] 06-29-2024 17:00-0400 Diastolic blood pressure 46 mm[Hg] Yaz Hollis DO Work Phone: [facility] 06-29-2024 17:00-0400 Heart rate 85 /min Yaz Smallguy DO Work Phone: [facility] 06-29-2024 17:00-0400 Respiratory rate 16 /min Yaz Smallguy DO Work Phone: [facility] 06-29-2024 17:00-0400 SaO2% (BldA) [Mass fraction] 98 % Yaz Hollis DO Work Phone: [facility] 06-29-2024 17:00-0400 Systolic blood pressure 114 mm[Hg] Yaz Hollis DO Work Phone: [facility] 06-29-2024 15:13-0400 Body temperature 97.8 [degF] Yaz Hollis DO Work Phone: [facility] 06-29-2024 15:07-0400 Body height 160.02 cm Yaz Smalltoniemadeline DO Work Phone: [facility] 06-29-2024 15:07-0400 Body weight 68.03 kg Yaz Hollis DO Work Phone: [facility] 06-21-2024 13:01-0400 Body mass index (BMI) [Ratio] 27.67 kg/m2 Jaguar Ingrid DO Work Phone: [facility] 06-21-2024 13:01-0400 Body weight 69.17 kg Jaguar Ingrid DO Work Phone: [facility] 06-21-2024 13:01-0400 Diastolic blood pressure 66 mm[Hg] Jaguar Ingrid DO Work Phone: [facility] 06-21-2024 13:01-0400 Systolic blood pressure 104 mm[Hg] Jaguar Ingrid DO Work Phone: [facility] 06-07-2024 14:10-0400 Body temperature 97.9 [degF] Yaz Hollis DO Work Phone: [facility] 06-07-2024 14:10-0400 Diastolic blood pressure 72 mm[Hg] Yaz Hollis DO Work Phone: [facility] 06-07-2024 14:10-0400 Heart rate 88 /min GAdeline Hollis DO Work Phone: [facility] 06-07-2024 14:10-0400 Respiratory rate 20 /min GAdeline Hollis DO Work Phone: [facility] 06-07-2024 14:10-0400 SaO2% (BldA) [Mass fraction] 98 % Yaz Hollis DO Work Phone: [facility] 06-07-2024 14:10-0400 Systolic blood pressure 119 mm[Hg] Yaz Hollis DO Work Phone: [facility] 06-07-2024 11:07-0400 Body height 160.02 cm GAdeline Hollis DO Work Phone: [facility] 06-07-2024 11:07-0400 Body weight 69.3 kg Yaz Hollis DO Work Phone: [facility] 05-25-2024 13:40-0500 Body mass index (BMI) [Ratio] 28.27 kg/m2 Sulema PATEL Work Phone: [facility] 05-25-2024 13:40-0500 Body weight 70.67 kg Sulema PATEL Work Phone: [facility] 05-25-2024 13:40-0500 Diastolic blood pressure 60 mm[Hg] Sulema PATEL Work Phone: [facility] 05-25-2024 13:40-0500 Systolic blood pressure 110 mm[Hg] Sulema PATEL Work Phone: [facility] 05-19-2024 12:23-0500 Diastolic blood pressure 55 mm[Hg] Yaz Smalltoniemadeline DO Work Phone: [facility] 05-19-2024 12:23-0500 Heart rate 94 /min Yaz Smalltoniemadeline DO Work Phone: [facility] 05-19-2024 12:23-0500 Respiratory rate 18 /min Yaz Smalltoniemadeline DO Work Phone: [facility] 05-19-2024 12:23-0500 SaO2% (BldA) [Mass fraction] 99 % Yaz Hollis DO Work Phone: [facility] 05-19-2024 12:23-0500 Systolic blood pressure 97 mm[Hg] Yaz Hollis DO Work Phone: [facility] 05-19-2024 08:55-0500 Body height 160.02 cm Yaz Hollis DO Work Phone: [facility] 05-19-2024 08:55-0500 Body temperature 97.9 [degF] Yaz Hollis DO Work Phone: [facility] 05-19-2024 08:55-0500 Body weight 67.85 kg Yaz Smalltoniemadeline DO Work Phone: [facility] 05-16-2024 12:56-0500 Diastolic blood pressure 80 mm[Hg] Yaz Smallguy DO Work Phone: [facility] 05-16-2024 12:56-0500 Heart rate 94 /min Yaz Hollis DO Work Phone: [facility] 05-16-2024 12:56-0500 Respiratory rate 16 /min Yaz Hollis DO Work Phone: [facility] 05-16-2024 12:56-0500 SaO2% (BldA) [Mass fraction] 99 % Yaz Hollis DO Work Phone: [facility] 05-16-2024 12:56-0500 Systolic blood pressure 122 mm[Hg] Yaz Hollis DO Work Phone: [facility] 05-16-2024 10:08-0500 Body height 160.02 cm Yaz Hollis DO Work Phone: [facility] 05-16-2024 10:08-0500 Body temperature 97.7 [degF] Yaz Hollis DO Work Phone: [facility] 05-16-2024 10:08-0500 Body weight 68.03 kg Yaz Hollis DO Work Phone: [facility] 04-24-2024 14:45-0500 Body mass index (BMI) [Ratio] 27.16 kg/m2 Jaguar Ingrid DO Work Phone: [facility] 04-24-2024 14:45-0500 Body weight 67.9 kg Jaguar Ingrid DO Work Phone: [facility] 04-24-2024 14:45-0500 Diastolic blood pressure 66 mm[Hg] Jaguar Ingrid DO Work Phone: [facility] 04-24-2024 14:45-0500 Systolic blood pressure 108 mm[Hg] Jaguar Ingrid DO Work Phone: [facility] 04-05-2024 19:16-0500 Diastolic blood pressure 71 mm[Hg] Yaz Hollis DO Work Phone: [facility] 04-05-2024 19:16-0500 Heart rate 87 /min Yaz Hollis DO Work Phone: [facility] 04-05-2024 19:16-0500 Respiratory rate 20 /min Yaz Hollis DO Work Phone: [facility] 04-05-2024 19:16-0500 SaO2% (BldA) [Mass fraction] 97 % Yaz Hollis DO Work Phone: [facility] 04-05-2024 19:16-0500 Systolic blood pressure 106 mm[Hg] Yaz Hollis DO Work Phone: [facility] 04-05-2024 14:46-0500 Body height 160.02 cm Yaz Hollis DO Work Phone: [facility] 04-05-2024 14:46-0500 Body temperature 97.9 [degF] Yaz Hollis DO Work Phone: [facility] 04-05-2024 14:46-0500 Body weight 65 kg Yaz Hollis DO Work Phone: [facility] 03-24-2024 11:29-0500 Body mass index (BMI) [Ratio] 24.49 kg/m2 [facility] 03-24-2024 11:29-0500 Body weight 61.24 kg [facility] 03-24-2024 11:29-0500 Diastolic blood pressure 68 mm[Hg] [facility] 03-24-2024 11:29-0500 Systolic blood pressure 112 mm[Hg] [facility] 03-04-2024 13:32-0500 Diastolic blood pressure 70 mm[Hg] Yaz Hollis DO Work Phone: [facility] 03-04-2024 13:32-0500 Heart rate 76 /min Yaz Hollis DO Work Phone: [facility] 03-04-2024 13:32-0500 Respiratory rate 20 /min Yaz Hollis DO Work Phone: [facility] 03-04-2024 13:32-0500 SaO2% (BldA) [Mass fraction] 100 % Yaz Hollis DO Work Phone: [facility] 03-04-2024 13:32-0500 Systolic blood pressure 115 mm[Hg] Yaz Hollis DO Work Phone: [facility] 03-04-2024 11:14-0500 Body height 160.02 cm Yaz Hollis DO Work Phone: [facility] 03-04-2024 11:14-0500 Body temperature 97.9 [degF] Yaz Hollis DO [facility] [place] 03-04-2024 11:14-0500 Body weight 63 kg Yaz Hollis DO Work Phone: [facility] 11-25-2023 17:46-0400 Body height 160.02 cm DO Yaz Hollis Work Phone: [facility] 11-25-2023 17:46-0400 Body temperature 98 [degF] DO Yaz Hollis Work Phone: [facility] 11-25-2023 17:46-0400 Body weight 65.77 kg DO Yaz Hollis Work Phone: [facility] 11-25-2023 17:46-0400 Diastolic blood pressure 71 mm[Hg] DO Yaz Hollis Work Phone: [facility] 11-25-2023 17:46-0400 Heart rate 68 /min DO Yaz Hollis Work Phone: [facility] 11-25-2023 17:46-0400 Respiratory rate 18 /min DO Yaz Hollis Work Phone: [facility] 11-25-2023 17:46-0400 SaO2% (BldA) [Mass fraction] 97 % DO Yaz Hollis Work Phone: [facility] 11-25-2023 17:46-0400 Systolic blood pressure 107 mm[Hg] DO Yaz Hollis Work Phone: [facility] 12-02-2022 13:15-0400 Body height 160.02 cm Claribelbrie Mora [facility] Other 12-02-2022 13:15-0400 Body mass index (BMI) [Ratio] 25.86 kg/m2 Claribel Abby Other [facility] Other 12-02-2022 13:15-0400 Body weight 66.23 kg Claribel Abby Other [facility] Other 12-02-2022 13:15-0400 Diastolic blood pressure 66 mm[Hg] Claribel Abby Other [facility] Other 12-02-2022 13:15-0400 Respiratory rate 18 /min Claribelbrie Mora Other [facility] Other 12-02-2022 13:15-0400 SaO2% (BldA) [Mass fraction] 98 % Claribelbrie Mora Other [facility] Other 12-02-2022 13:15-0400 Systolic blood pressure 100 mm[Hg] Claribel Abby Other [facility] Other 07-16-2022 14:45-0400 Body height 160.02 cm Claribel Abby Other [facility] Other 07-16-2022 14:45-0400 Body mass index (BMI) [Ratio] 27.22 kg/m2 Claribeljessica Mora Other [facility] Other 07-16-2022 14:45-0400 Body weight 69.72 kg Claribeljessica Mora Other [facility] Other 07-16-2022 14:45-0400 Diastolic blood pressure 64 mm[Hg] Claribeljessica Mora Other [facility] Other 07-16-2022 14:45-0400 Respiratory rate 18 /min Claribeljessica Mora Other [facility] Other 07-16-2022 14:45-0400 SaO2% (BldA) [Mass fraction] 97 % Claribeljessica Mora Other [facility] Other 07-16-2022 14:45-0400 Systolic blood pressure 104 mm[Hg] Claribeljessica Mora Other [facility] Other 06-04-2022 15:15-0400 Body height 160.02 cm Adin Gan Other [facility] Other 06-04-2022 15:15-0400 Body mass index (BMI) [Ratio] 27.28 kg/m2 Adin Gan Other [facility] Other 06-04-2022 15:15-0400 Body weight 69.85 kg Adin Gan Other [facility] Other 06-04-2022 15:15-0400 Diastolic blood pressure 80 mm[Hg] Adin Gan Other [facility] Other 06-04-2022 15:15-0400 Respiratory rate 18 /min Adin Gan Other [facility] Other 06-04-2022 15:15-0400 SaO2% (BldA) [Mass fraction] 98 % Adin Gan Other [facility] Other 06-04-2022 15:15-0400 Systolic blood pressure 126 mm[Hg] Adin Gan Other [facility] Other 05-25-2022 15:30-0500 Body height 160.02 cm Adin Gan Other [facility] Other 05-25-2022 15:30-0500 Body mass index (BMI) [Ratio] 27.28 kg/m2 Adin Gan Other [facility] Other 05-25-2022 15:30-0500 Body weight 69.85 kg Adin Gan Other [facility] Other 05-25-2022 15:30-0500 Diastolic blood pressure 80 mm[Hg] Adin Gan Other [facility] Other 05-25-2022 15:30-0500 Respiratory rate 18 /min Adin Gan Other [facility] Other 05-25-2022 15:30-0500 SaO2% (BldA) [Mass fraction] 99 % Adin Gan Other [facility] Other 05-25-2022 15:30-0500 Systolic blood pressure 124 mm[Hg] Adin Gan Other [facility] Other 05-30-2021 03:06-0500 Body weight 72.[address] RUSTAM SCALES [facility] Comment on above: Performed By: #### AFPMAT #### [facility] [address] [address] [address] Lilia Calvillo Encounters Encounter Date Encounter Type Care Provider Facility Start: 10-04-2024 End: 10-04-2024 Office outpatient visit 15 minutes Jaguar Ingrid DO Work Phone: [facility] Comment on above: Third trimester preg edna ([facility]); 36 weeks gestation of ([facility]); Gestational diabetes mellitus (GDM), antepartum, gestational diabetes method of control unspecified ([facility]); Anemia affecting in third trimester ([facility]) Start: 10-04-2024 End: 10-04-2024 Bamboo flowsheet Jaguar Ingrid DO Work Phone: [facility] Start: 10-04-2024 End: 10-08-2024 Bamboo flowsheet Jaguar Ingrid DO Work Phone: [facility] Start: 10-04-2024 End: 10-08-2024 Clinisync Result Encounter Generic External Data Provider [facility] External [facility] Unsolicited Start: 10-04-2024 End: 10-04-2024 ambulatory JAGUAR INGRID Not Available Start: 10-03-2024 End: 10-03-2024 Clinisync Result Encounter Generic External Data Provider [facility] External [facility] Unsolicited Start: 10-03-2024 End: 10-03-2024 Clinisync Result Encounter Generic External Data Provider [facility] External Department Unsolicited Start: 09-26-2024 End: 09-26-2024 Clinisync Result Encounter Generic External Data Provider [facility] External Department Unsolicited Start: 09-26-2024 End: 09-26-2024 Clinisync Result Encounter Generic External Data Provider [facility] External Department Unsolicited Start: 09-25-2024 End: 09-25-2024 Office outpatient visit 15 minutes Jaguar Ingrid DO Work Phone: [facility] Comment on above: 35 weeks gestation o f ([facility]); Third trimester ([facility]); Recurrent cold sores Start: 09-25-2024 End: 09-25-2024 ambulatory JAGUAR INGRID Not Available Start: 09-25-2024 End: 09-25-2024 Bamboo flowsheet Jaguar Ingrid DO Work Phone: [facility] Start: 09-25-2024 End: 09-25-2024 Bamboo flowsheet Jaguar Ingrid DO Work Phone: [facility] Start: 09-19-2024 End: 09-19-2024 Clinisync Result Encounter Corby Royal [employer] OPERATOR Work Phone: [facility] Unsolicited Start: 09-19-2024 End: 09-19-2024 Clinisync Result Encounter Corby Royal HYDRA[employer] PILE HAMMER OPERATOR Work Phone: [facility] Unsolicited Start: 09-12-2024 End: 09-12-2024 Clinisync Result Encounter Generic External Data Provider [facility] External Department Unsolicited Start: 09-12-2024 End: 09-12-2024 Clinisync Result Encounter Generic External Data Provider [facility] External Department Unsolicited Start: 09-11-2024 End: 09-11-2024 flow sheet Sulema PATEL Work Phone: [facility] Comment on above: Third trimester preg edna ([facility]); 34 weeks gestation of ([facility]); Nausea and vomiting in ([facility]) Start: 09-11-2024 End: 09-11-2024 ambulatory SULEMA MENDENHALL Not Available Start: 09-10-2024 End: 09-10-2024 Clinisync Result Encounter Jaguar Ingrid DO Work Phone: [facility] Unsolicited Start: 09-10-2024 End: 09-10-2024 Clinisync Result Encounter Jaguar Ingrid DO Work Phone: [facility] Unsolicited Start: 09-09-2024 End: 09-09-2024 Clinisync Result Encounter Jaguar Ingrid DO Work Phone: [facility] Unsolicited Start: 09-09-2024 End: 09-09-2024 Clinisync Result Encounter Jaguar Ingrid DO Work [...] 07-19-2024 End: 07-19-2024 flow sheet Corby Royal HYDRA[employer] PILE HAMMER OPERATOR Work Phone: [facility] Comment on above: Upper respiratory tr act infection, unspecified type (Primary Dx); Second trimester ; 25 weeks gestation of ; Vomiting complicating Start: 07-19-2024 End: 07-19-2024 ambulatory CORBY ROYAL Not Available Start: 06-29-2024 End: 06-29-2024 Emergency department patient visit Yaz Hollis DO Work Phone: [facility] Work Phone: Start: 06-21-2024 End: [...] visit Yaz Hollis DO Work Phone: [facility] Work Phone: Start: 05-25-2024 End: [...] 05-25-2024 End: 05-25-2024 Patient encounter procedure Sulema Mendenhall PA Work Phone: [facility] Start: 05-25-2024 End: 05-25-2024 ambulatory SULEMA MENDENHALL Not Available Start: 05-19-2024 End: 05-19-2024 Emergency department patient visit Yaz Hollis DO Work Phone: [facility] Work Phone: Start: 05-16-2024 End: 05-16-2024 Emergency department patient visit Yaz Hollis DO Work Phone: [facility] Work Phone: Start: 04-24-2024 End: [...] visit Yaz Hollis DO Work Phone: [facility] Work Phone: Start: 04-03-2024 End: [...] patient visit Yaz Hollis DO Work Phone: [facility] Work Phone: Start: 11-25-2023 End: 11-25-2023 Emergency department patient visit DO Yaz Hollis Work Phone: [facility] Work Phone: Start: 12-02-2022 End: 12-02-2022 ambulatory Claribel Mora Other [facility] Other Start: 12-02-2022 Office outpatient vi sit 25 minutes Claribelbrie Mora [facility] Start: 07-16-2022 End: 07-16-2022 ambulatory Claribel Mora Other [facility] Other Start: 07-16-2022 Office outpatient vi sit 25 minutes Claribel Mora [facility] Start: 06-08-2022 End: 06-08-2022 ambulatory Adin Gan Other [facility] Other Start: 06-08-2022 Telephone encounter Adin Ahn [facility] [place] Start: 06-05-2022 End: 06-05-2022 ambulatory Adin Gan Other [facility] Other Start: 06-05-2022 Telephone encounter Adin Ahn [facility] Start: 06-04-2022 End: 06-04-2022 Patient encounter procedure DO Adin Gan Work Phone: [facility] Start: 06-04-2022 End: 06-04-2022 ambulatory DO Adin Gan Work Phone: [facility] Work Phone: Start: 06-04-2022 Office outpatient vi sit 15 minutes Adin Gan [facility] [place] Start: 05-25-2022 End: 05-25-2022 ambulatory Adin Gan Other [facility] Other Start: 05-25-2022 Office outpatient vi sit 15 minutes Adin Gan [facility] [place] Start: 05-22-2022 End: 05-22-2022 ambulatory Adin Gan Other [facility] Other Start: 05-22-2022 Telephone encounter Adin MA [facility] [place] Start: 05-07-2022 End: 05-07-2022 ambulatory Adin Gan Other [facility] Other Start: 05-07-2022 Telephone encounter Adin MA [facility] [place] Start: 04-01-2022 End: 04-01-2022 ambulatory Nabil Mcgraw Other [facility] Other Start: 04-01-2022 Telephone encounter Nabil Mcgraw [facility] [place] Start: 02-17-2022 End: 02-17-[address] JAGUAR QUINTERO Facility:[facility] Start: 10-22-2021 Encounter for preprocedural laboratory examination DR JAGUAR QUINTERO [facility] Start: 10-21-2021 End: 10-21-[address] JAGUAR QUINTERO Facility:[facility] Start: 10-16-2021 End: 10-18-2021 Evaluation and management of inpatient DR JAGUAR QUINTERO Facility:[facility] Start: 10-14-2021 Encounter for preprocedural laboratory examination DR JAGUAR QUINTERO [facility] Start: 10-13-2021 End: 10-14-2021 ambulatory NONE [...] Date Procedure Procedure Detail Performing Clinician Start: 10-04-2024 Urnls dip stick/tabl et rgnt non-auto w/o micrscp Jaguar Ingrid DO Work Phone: Start: 10-04-2024 STREP GP B CULTURE+RFLX Generic External Data Provider Start: 10-03-2024 OB BPP W NON-STRESS Generic External Data Provider Start: 09-26-2024 OB BPP W NON-STRESS Generic External Data Provider Start: 09-25-2024 Urnls dip stick/tabl et rgnt non-auto w/o micrscp Jaguar Ingrid DO Work Phone: Start: 09-19-2024 OB BPP W NON-STRESS Corby Royal HYDRA[employer] PILE HAMMER OPERATOR Work Phone: Start: 09-12-2024 OB BPP W NON-STRESS Generic External Data Provider Start: 09-11-2024 Urnls dip stick/tabl et rgnt non-auto w/o micrscp Sulema PATEL Work Phone: Start: 09-10-2024 ALL CBC WITH AUTO DIFF Jaguar Quintero DO Work Phone: Start: 09-09-2024 [facility] DRUG SCREEN RAPI D (URINE) Jaguar Quintero DO Work Phone: Start: 09-08-2024 US OB BPP W NON-STRESS Jaguar Quintero DO Work Phone: Start: 09-06-2024 US OB GROWTH Generic Ex ternal Data Provider Start: 08-28-2024 Urnls dip stick/tabl et rgnt non-auto w/o micrscp Jaguar Peaceo DO Work Phone: Start: 07-19-2024 Urnls dip stick/tabl et rgnt non-auto w/o micrscp Corby Royal NP Work Phone: Start: 06-21-2024 Urnls dip stick/tabl et rgnt non-auto w/o micrscp Jaguar Peaceo DO Work Phone: Start: 05-25-2024 Urnls dip [...] section Status pos t delivery DO Adin Gna Work Phone: Comment on above: Problem List clean-u p per request of Phys. EHR Cmte Plan of Treatment Date Care Activity Detail Author Start: 05-25-2029 Screening for malign ant neoplasm of cervix [facility] Start: 01-02-2026 Screening for malign ant neoplasm of cervix [facility] Start: 11-20-2024 Influenza vaccination [facility] Start: 10-17-2024 End: 10-17-2024 Patient encounter procedure 10/17/2024 1:20 PM EDT Office Visit [facility] [address] [place] [place] [address] Sulema Mendenhall PA [address] [place] [address] [facility] Start: 10-04-2024 End: 10-04-2024 Patient encounter procedure [facility] Comment on above: Arrived Start: 10-04-2024 End: 10-04-2025 CULTURE, GROUP B STREP WITH SUSCEPTIBLITY CULTURE, GROUP B STREP WITH SUSCEPTIBLITY Lab Routine Third trimester ([facility]) Expected: 10/04/2024, Expires: 10/04/2025 [facility] Work Phone: Comment on above: Expected: 10/04/2024 , Expires: 10/04/2025 Start: 09-25-2024 End: 09-25-2024 Patient encounter procedure [facility] Comment on above: Arrived Start: 09-11-2024 End: 09-11-2024 Patient encounter procedure 09/11/2024 1:50 PM EDT Routine [facility] [address] [place] [place] [address] Sulema Mendenhall PA [address] [place] [address] [facility] Start: 09-11-2024 End: 09-11-2024 Patient encounter procedure 09/11/2024 9:30 AM EDT Routine [facility] [address] [place] [place] [id number] Sulema Mendenhall PA [address] [place] [address] [facility] Start: 08-28-2024 End: 08-28-2025 Transferrin [Mass/volume] in Serum or Plasma Transferrin Lab Routine Third trimester Gestational diabetes mellitus (GDM), antepartum, gestational diabetes method of control unspecified Elevated glucose tolerance test Anemia affecting in third trimester Expected: 08/28/2024 (Approximate), Expires: 08/28/2025 [facility] Comment on above: Expected: 08/28/2024 (Approximate), Expires: 08/28/2025 Start: 08-28-2024 End: 02-27-2025 US biophysical profile w non stress test US biophysical profile w non stress test Imaging Routine Third trimester Anemia affecting in third trimester Expected: 08/28/2024 (Approximate), Expires: 02/27/2025 [facility] Work Phone: Comment on above: Expected: 08/28/2024 (Approximate), Expires: 02/27/2025 Start: 08-28-2024 End: 12-28-2024 US for US OB follow up transabdominal approach Imaging Routine Third trimester Gestational diabetes mellitus (GDM), antepartum, gestational diabetes method of control unspecified Elevated glucose tolerance test Anemia affecting in third trimester Expected: 08/28/2024, Expires: 12/28/2024 [facility] Comment on above: Expected: 08/28/2024 , Expires: 12/28/2024 Start: 08-28-2024 End: 08-28-2024 Patient encounter procedure 08/28/2024 10:50 AM EDT Routine [facility] [address] [place] [address] Jaguar Quintero, DO [address] [place], [place] [address] [address] Arrived [facility] Comment on above: Arrived Start: 08-10-2024 End: 08-10-2024 Patient encounter procedure 08/10/2024 11:10 AM EDT Routine [facility] [address] [place] [phone] Jaguar Quintero, [facility] [place] [address] [facility] Start: 07-19-2024 End: 07-19-2024 Patient encounter procedure 07/19/2024 10:30 AM EDT Routine [facility] [address] [place] [address] Sulema Mendenhall PA [address] [place] [address] [facility] Start: 07-19-2024 End: 07-19-2024 Professional / ancillary services management 07/19/2024 9:30 AM EDT Ancillary Procedure [facility] [address] [place] [id number] [facility] Start: 06-29-2024 Urine culture [facility] Start: 06-29-2024 Bacteria identified in Urine by Culture Urine Culture [facility] Start: 06-21-2024 End: 06-21-2025 CBC panel - Blood by Automated count CBC Lab Routine Diabetes mellitus screening Expected: 06/21/2024 (Approximate), Expires: 06/21/2025 [facility] Comment on above: Expected: 06/21/2024 (Approximate), Expires: 06/21/2025 Start: 06-21-2024 End: 06-21-2025 Measurement of glucose 1 hour after glucose challenge for glucose tolerance test Glucose tolerance, 1 hour Lab Routine Diabetes mellitus screening Expected: 06/21/2024 (Approximate), Expires: 06/21/2025 [facility] Comment on above: Expected: 06/21/2024 (Approximate), [...] PM EDT Ancillary Procedure [facility] [address] [place] [address] [place] [address] [facility] Start: 05-25-2024 End: 05-25-2025 [...] gestational age Expected: 03/24/2024 (Approximate), Expires: 03/24/2025 [facility] Comment on above: Expected: 03/24/2024 (Approximate), Expires: 03/24/2025 Start: 03-24-2024 End: 03-24-2025 Blood type and Indirect antibody screen panel - Blood Type and screen Lab Routine Missed menses , unspecified gestational age Expected: 03/24/2024 (Approximate), Expires: 03/24/2025 [facility] Work Phone: Comment on above: Expected: 03/24/2024 (Approximate), Expires: 03/24/2025 Start: 03-24-2024 End: 03-24-2025 Drugs of abuse panel - Urine by Screen method Rapid drug screen, urine Lab Routine , unspecified gestational age Encounter for supervision of normal first in first trimester Expected: 03/24/2024 (Approximate), Expires: 03/24/2025 [facility] Comment on above: Expected: 03/24/2024 (Approximate), Expires: 03/24/2025 Start: 11-21-2023 Influenza vaccination Influenza Vacc ine (#1) [facility] Start: 2014 Screening for malign ant neoplasm of cervix Pap Smear [facility] Bacteria identified in Urine by Culture Urine culture Microbiology Routine Missed menses Ordered: 03/24/2024 [facility] Comment on above: Ordered: 03/24/2024 CBC W Auto Different ial panel - Blood CBC and differential Lab Routine Missed menses , unspecified gestational age Ordered: 03/24/2024 [facility] Comment on above: Ordered: 03/24/2024 CHLAMYDIA TRACHOMATI S (GENITO/STI) CHLAMYDIA TRACHOMATIS (GENITO/STI) Lab Routine Exposure to STD Ordered: 05/25/2024 [facility] Comment on above: Ordered: 05/25/2024 Cytology Cervical or vaginal smear or scraping study Pap Smear Pathology and Cytology Routine Well woman exam with routine gynecological exam Ordered: 05/25/2024 [facility] Comment on above: Ordered: 05/25/2024 Ferritin [Mass/volum e] in Serum or Plasma Ferritin Lab Routine Third trimester Anemia affecting in third trimester Ordered: 08/28/2024 [facility] Comment on above: Ordered: 08/28/2024 Hemoglobin A1c/Hemoglobin.total in Blood Hemoglobin A1c Lab Routine Missed menses , unspecified gestational age Ordered: 03/24/2024 [facility] Comment on above: Ordered: 03/24/2024 Hepatitis B virus surface Ag [Presence] in Serum or Plasma by Immunoassay Hepatitis B surface antigen Lab Routine Missed menses , unspecified gestational age Ordered: 03/24/2024 [facility] Comment on above: Ordered: 03/24/2024 Hepatitis C virus Ab [Presence] in Serum or Plasma by Immunoassay Hepatitis C antibody Lab Routine Missed menses , unspecified gestational age Ordered: 03/24/2024 [facility] Comment on above: Ordered: 03/24/2024 HIV-1/HIV-2 antigen/antibody combination immunoassay HIV-1 and HIV-2 antibodies Lab Routine Missed menses , unspecified gestational age Ordered: 03/24/2024 [facility] Comment on above: Ordered: 03/24/2024 Human papilloma viru s DNA [Presence] in Unspecified specimen by Probe with amplification HPV DNA probe, amplified Microbiology Routine Well woman exam with routine gynecological exam Ordered: 05/25/2024 [facility] Comment on above: Ordered: 05/25/2024 Neisseria gonorrhoea e DNA [Presence] in Unspecified specimen by TORRES with probe detection Neisseria gonorrhea DNA probe, direct Lab Routine Exposure to STD Ordered: 05/25/2024 [facility] Comment on above: Ordered: 05/25/2024 Patient Education [facility] Work Phone: Patient referral [facility] Work Phone: Reagin Ab [Presence] in Serum by RPR RPR Lab Routine Missed menses , unspecified gestational age Ordered: 03/24/2024 [facility] Comment on above: Ordered: 03/24/2024 Rubella antibody, IgG Rubella an tibody, IgG Lab Routine Missed menses , unspecified gestational age Ordered: 03/24/2024 [facility] Comment on above: Ordered: 03/24/2024 SURESWAB(R) ADVANCED VAGINITIS PLUS, TMA SURESWAB(R) ADVANCED VAGINITIS PLUS, TMA Pathology and Cytology Routine Vaginal discharge Ordered: 05/25/2024 [facility] Work Phone: Comment on above: Ordered: 05/25/2024 Immunizations Immunization Date Immunization Notes Care Provider Trace luis 06-30-2019 tetanus toxoid, reduced diphtheria toxoid, and acellular pertussis vaccine, adsorbed DO Adin Gan Work Phone: [facility] 05-12-2013 influenza, seasonal, injectable, preservative free [facility] 05-12-2013 influenza virus vaccine, unspecified formulation [facility] 10-19-2012 tetanus toxoid, reduced diphtheria toxoid, and acellular pertussis vaccine, adsorbed [facility] 02-25-2012 influenza, seasonal, injectable [facility] 01-09-2011 influenza virus vaccine, live, attenuated, for intranasal use [facility] 02-28-2007 influenza, seasonal, injectable [facility] 02-01-2006 influenza, seasonal, injectable [facility] NEGATED: Highlighted row has not occurred!07-16-2022 influenza, seasonal, injectable Patient Objection Claribel Mora [facility] Other Payers Date Payer Category Payer Medicaid [facility] [id number] 2024 Medicaid [id number] 2023 [facility] [id number] 2023 Unknown [id number] 2017 Unknown [id number] 1993 Unknown [id number] [id number]. 593 1993 Unknown [id number] 2.16.840.1.020957.3.579.2. 593 1993 Unknown [id number] 2.16.840.1.861315.3.579.2. 593 1993 Unknown [id number] 2.16.840.1.460893.3.579.2. 593 1993 Unknown [id number] 2.16.840.1.995222.3.579.2. 593 1993 Unknown [id number] 2.16.840.1.912400.3.579.2. 593 1993 Unknown [id number] 2.16.840.1.205106.3.579.2. 593 1993 Unknown [id number] 2.16.840.1.123014.3.579.2. 593 1993 Unknown [id number] 2.16.840.1.305301.3.579.2. 593 1993 Unknown [id number] 2.16.840.1.491993.3.579.2. 593 1993 Unknown [id number] 2.16.840.1.153349.3.579.2. 593 1993 Unknown [id number] 2.16.840.1.178132.3.579.2. 9 1993 Unknown [id number] 2.16.840.1.199404.3.579.2. 1258 1993 Unknown [id number] 2.16.840.1.927605.3.579.2. 1258 1993 Unknown [id number] 2.16.840.1.468959.3.579.2. 1258 1993 Unknown [id number] 2.16.840.1.656494.3.579.2. 1258 1993 Unknown [id number] 2.16.840.1.958454.3.579.2. 1258 1993 Unknown [id number] 2.16.840.1.977192.3.579.2. 1258 1993 Unknown [id number] 2.16.840.1.686579.3.579.2. 1258 1993 Unknown [id number] 2.16.840.1.067077.3.579.2. 1258 1993 Unknown [id number] 2.16.840.1.279601.3.579.2. 1258 1993 Unknown [id number] 2.16.840.1.817812.3.579.2. 1258 1993 Unknown [id number] 2.16.840.1.805734.3.579.2. 1258 1993 Unknown [id number] 2.16.840.1.612054.3.579.2. 9 1959 Self-pay 1959 Unknown [id number] 1959 Unknown [id number] Medicaid [employer] [id number] [facility] [id number] Unknown [id number] 2.16.840.1.450285.3.579.2. 593 Unknown [id number] 2.16.840.1.922937.3.579.2. 531 Unknown [id number] 2.16.840.1.500982.3.579.2. 531 Unknown [id number] 2.16.840.1.339525.3.579.2. 531 Unknown [id number] 2.16.840.1.556983.3.579.2. 531 Unknown [id number] 2.16.840.1.802609.3.579.2. 531 Unknown [id number] 2.16.840.1.573227.3.579.2. 531 Unknown [id number] 2.16.840.1.623756.3.579.2. 531 Social History Date Type Detail Facility Start: 10-05-2023 End: 03-23-2024 Sex Assigned At [facility] Other Start: 04-28-2020 End: 06-29-2024 Tobacco smoking status [facility] Never smoked tobacco (finding) [facility] Start: 1995 Sex Assigned At Female [facility] Start: 11-25-2023 End: 03-22-2017 Tobacco smoking status [facility] Smoker (finding) [facility] Start: 10-05-2023 Tobacco smoking status [facility] Ex-smoker [facility] End: 03-22-2017 History of tobacco use Cigarette Smoker [facility] Start: 10-05-2023 Tobacco use and exposure Smokeless tobacco non-user [facility] Start: 03-24-2024 End: 09-25-2024 Alcoholic beverage intake Ex-drinker (finding) [facility] Start: 10-05-2023 End: 03-23-2024 History of Social function [facility] Start: 06-20-2023 Education 21 [facility] Start: 06-20-2023 Tobacco Comment Last smoked : 1- 5 years [facility] Start: 06-20-2023 Alcohol Comment caffeine intake : 1-2 cups per day [facility] Start: 02-04-2024 [facility] Start: 07-12-2023 Gender identity Identifies as female gender (finding) [facility] Start: 07-12-2023 Sexual orientation Heterosexual (finding) [facility] Start: 04-05-2024 End: 06-29-2024 Sex Female (finding) [facility] Medical Equipment Procedure Code Equipment Code Equipment Origin al Text Equipment Identifier Dates 1 strip by In Vi tro route Daily Use in the morning prior to breakfast, 1 hour after each meal for a total of 4times daily. [id number] Start: 08-28-2024 End: 09-27-2024 1 each by In Vit ro route Daily Use to check FSBS four times daily [id number] Start: 08-28-2024 End: 09-27-2024 Clinical Notes 08-20-2017 to 10-04-2024 Priscila Mercado LPN - 10/04/2024 2:30 PM EDTCorby Royal NP - 09/25/2024 2:30 PM JORGE Castellanos - 09/11/2024 1:50 PM EDTMamador Gomez MA - 08/28/2024 10:50 AM EDT Note Date & Type Note Facility 10-04-2024 History of Presen t illness Narrative Reason [...] daily. citalopram (CELEXA) 40 mg, Oral, Daily ondansetron (ZOFRAN) 4 mg, Oral, Every 6 hours PRN, Take 1 tablet by mouth every 6 hours as needed for nausea. valACYclovir (VALTREX) 500 mg, Oral, 2 times daily ALLERGIES Allergies Allergen Reactions Codeine Unknown Other [...] 04/07/2023 Constipation 04/07/2023 Chronic GERD 04/07/2023 Goiter 04/07/2023 Migraine without aura and without status migrainosus, not intractable 04/07/2023 Moderately severe depression 04/07/2023 Hyperemesis gravidarum ([facility]) 05/19/2024 Resolved Ambulatory Problems Diagnosis Date Noted No Resolved Ambulatory Problems Past Medical History: Diagnosis Date Allergic Depression Drug addiction (HCC) Enlarged thyroid Hepatitis C Hepatitis C Hx of abnormal cervical Pap smear 2014 Migraine Seasonal allergies UTI (urinary tract infection) Vaccine for VZV (varicella-zoster virus) HISTORY PAST MEDICAL HISTORY SOCIAL HISTORY Past Medical History: Diagnosis Date Allergic Depression Drug addiction (HCC) Heroin , alcohol sober 2015 to 2019 Enlarged thyroid Hepatitis C treatment 2018 Hepatitis C treatment 2018 Hx of abnormal cervical Pap smear 2014 had laser cervix for pre cancerous changes Migraine Seasonal allergies UTI (urinary tract infection) Vaccine for VZV (varicella-zoster virus) Social History Tobacco Use Smoking status: Former Current packs/day: 0.00 Types: Cigarettes Quit date: 03/22/2017 Years since quittin.5 Smokeless tobacco: Never Tobacco comments: Last smoked [...] appearance. She is well-developed. Genitourinary: Vulva normal. Cardiovascular: Rate and Rhythm: Normal rate and [...] nursing note reviewed. Exam conducted with a systems tester present. Vitals: Estimated body mass index is 30.62 kg/m as calculated from the following: Height as of 06/16/23: 5' 2.25 . Weight as of this encounter: 168 lb 12 oz. BP: 102/70 Patient's last menstrual period was 01/21/2024. ASSESSMENT & PLAN ICD-10-CM 1. Third trimester ([facility]) Z34.93 POCT urinalysis dipstick manually resulted CULTURE, GROUP B STREP WITH SUSCEPTIBLITY CULTURE, GROUP B STREP WITH SUSCEPTIBLITY 2. 36 weeks gestation of ([facility]) Z3A.36 3. Gestational diabetes mellitus (GDM), antepartum, gestational diabetes method of control unspecified ([facility]) O24.419 4. Anemia affecting in third trimester ([facility]) O99.013 Patient is doing well but has complaints of being tired and having maternal discomfort due to . Patient verbalized frequent movement and was instructed to perform kick counts three times per day. labor precautions were given, LARC consent was signed/declined, and GBS was obtained. Orders Placed This Encounter Procedures CULTURE, GROUP B STREP WITH SUSCEPTIBLITY POCT urinalysis dipstick manually resulted Follow Up: Patient is to return to office in 1 week for routine OB appointment Documented by Priscila Mercado LPN on behalf of: Jaguar Quintero DO documented in this encounter [facility] 09-25-2024 History of Presen t illness Narrative Reason for Appointment: Patient ID: Nicole Farris is a 29 y.o. female who presents for Routine Visit Patient presents today for Return OB appointment. MEDICATIONS Current Outpatient Medications Medication Instructions Alcohol Swabs (Alcohol Prep Pad) 70 % pads 1 Pad, Topical, Daily, Use four times daily to check FSBS. Blood Glucose Monitoring Suppl ([employer] Glucometer) w/Device kit 1 kit, Does not apply, Daily, Use four times daily to check FSBS. In the morning prior to breakfast & 1 hour after each meal for a total of 4times daily. citalopram (CELEXA) 40 mg, Oral, Daily Glucose Blood (Blood Glucose Test) strip 1 strip, In Vitro, Daily, Use in the morning prior to breakfast, 1 hour after each meal for a total of 4times daily. iron polysaccharides (PROFE) 391.3 mg, Oral, Daily Lancets Ultra Thin misc 1 each, In Vitro, Daily, Use to check FSBS four times daily ondansetron (ZOFRAN) 4 mg, Oral, Every 6 hours PRN, Take 1 tablet by mouth every 6 hours as needed for nausea. valACYclovir (VALTREX) 500 mg, Oral, 2 times daily ALLERGIES Allergies Allergen Reactions Codeine Unknown Other [...] 04/07/2023 Constipation 04/07/2023 Chronic GERD 04/07/2023 Goiter 04/07/2023 Migraine without aura and without status migrainosus, not intractable 04/07/2023 Moderately severe depression 04/07/2023 Hyperemesis gravidarum ([facility]) 05/19/2024 Resolved Ambulatory Problems Diagnosis Date Noted No Resolved Ambulatory Problems Past Medical History: Diagnosis Date Allergic Depression Drug addiction (HCC) Enlarged thyroid Hepatitis C Hepatitis C Hx of abnormal cervical Pap smear 2014 Migraine Seasonal allergies UTI (urinary tract infection) Vaccine for VZV (varicella-zoster virus) HISTORY PAST MEDICAL HISTORY SOCIAL HISTORY Past Medical History: Diagnosis Date Allergic Depression Drug addiction (HCC) Heroin , alcohol sober 2015 to 2019 Enlarged thyroid Hepatitis C treatment 2018 Hepatitis C treatment 2018 Hx of abnormal cervical Pap smear 2014 had laser cervix for pre cancerous changes Migraine Seasonal allergies UTI (urinary tract infection) Vaccine for VZV (varicella-zoster virus) Social History Tobacco Use Smoking status: Former Current packs/day: 0.00 Types: Cigarettes Quit date: 03/22/2017 Years since quittin.5 Smokeless tobacco: Never Tobacco comments: Last smoked [...] nursing note reviewed. Exam conducted with a systems tester present. Vitals: Estimated body mass index is 30.45 kg/m as calculated from the following: Height as of 06/16/23: 5' 2.25 . Weight as of this encounter: 167 lb 12.8 oz. BP: 110/70 Patient's last menstrual period was 01/21/2024. ASSESSMENT & PLAN ICD-10-CM 1. 35 weeks gestation of ([facility]) Z3A.35 POCT urinalysis dipstick manually resulted 2. Third trimester ([facility]) Z34.93 POCT urinalysis dipstick manually resulted 3. 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 Patient is currently 35w3d . Patient states she is doing well but has complaints of being tired due to current . Patient has verbalizes frequent movement. labor precautions was discussed/given and patient was instructed to perform kick counts three times a day. Orders Placed This Encounter Procedures POCT urinalysis dipstick manually resulted Follow Up: Patient is to return to office in 2 week for routine OB appointment. Hgb 8.1 will obtain transferrin and ferritin and refer for iron infusion. Patient evaluated at [facility] for intractable nausea and vomiting over the weekend and was given antiemetic medication and hydration. Patient with significant itching to soles of feet and palms of hands Liver enzymes and bile acid salts within normal limits. Will discuss early delivery with concerns for cholestasis. Documented by Corby Royal NP on behalf of: Jaguar Quintero DO documented in this encounter [facility] 09-11-2024 History of Presen t illness Narrative Reason for Appointment: Patient ID: Nicole Farris is a 29 y.o. female who presents for Routine Visit Patient presents today for Return OB appointment. MEDICATIONS Current Outpatient Medications Medication Instructions Alcohol Swabs (Alcohol Prep Pad) 70 % pads 1 Pad, Topical, Daily, Use four times daily to check FSBS. Blood Glucose Monitoring Suppl ([employer] Glucometer) w/Device kit 1 kit, Does not [...] 6 hours as needed for nausea. ondansetron ODT (ZOFRAN-ODT) [...] 04/07/2023 Constipation 04/07/2023 Chronic GERD 04/07/2023 Goiter 04/07/2023 Migraine without aura and without status migrainosus, not intractable 04/07/2023 Moderately severe depression 04/07/2023 Hyperemesis gravidarum ([facility]) 05/19/2024 Resolved Ambulatory Problems Diagnosis Date Noted No Resolved Ambulatory Problems Past Medical History: Diagnosis Date Allergic Depression Drug addiction (HCC) Enlarged thyroid Hepatitis C Hepatitis C Hx of abnormal cervical Pap smear 2014 Migraine Seasonal allergies UTI (urinary tract infection) Vaccine for VZV (varicella-zoster virus) HISTORY PAST MEDICAL HISTORY SOCIAL HISTORY Past Medical History: Diagnosis Date Allergic Depression Drug addiction (HCC) Heroin , alcohol sober 2015 to 2019 Enlarged thyroid Hepatitis C treatment 2018 Hepatitis C treatment 2018 Hx of abnormal cervical Pap [...] Exam Constitutional: Appearance: Normal appearance. She is normal weight. HENT: Head: Normocephalic. Cardiovascular: Rate and Rhythm: Normal rate. Pulses: Normal pulses. Pulmonary: Effort: Pulmonary effort is normal. Breath sounds: Normal breath sounds. Abdominal: Palpations: Abdomen is soft. Musculoskeletal: General: Normal range of motion. Neurological: General: No focal deficit present. Mental Status: She is alert and oriented to person, place, and time. Psychiatric: Mood and Affect: Mood normal. Behavior: Behavior normal. Thought Content: Thought content normal. Judgment: Judgment normal. Vitals and nursing note reviewed. Vitals: Estimated body mass index is 29.28 kg/m as calculated from the following: Height as of 06/16/23: 5' 2.25 . Weight as of this encounter: 161 lb 6.4 oz. BP: 120/68 Patient's last menstrual period was 01/21/2024. ASSESSMENT & PLAN ICD-10-CM 1. Third trimester ([facility]) Z34.93 Urine dip 2. 34 weeks gestation of ([facility]) Z3A.34 Urine dip Return OB: Patient presents today for a routine obstetrics appointment. Patient is currently 33w3d . Patient states she is doing well but has complaints of being tired due to current . Patient has verbalizes frequent movement. labor precautions was discussed/given and patient was instructed to perform kick counts three times a day. Patient continues to have nausea, encouraged to drink protein drinks slowly to try to get nutrients. Patient to continue with nst/bpp as scheduled. I will send in small script of ambien 10 mg and refill of zofran Orders Placed This Encounter Procedures Urine dip Follow Up: Patient is to return to office in 2 week for routine OB appointment. Documented by JORGE Coon on behalf of: JORGE Coon documented in this encounter [facility] 06-09-2025 History of Presen t illness Narrative Reason [...] 04/07/2023 Constipation 04/07/2023 Chronic GERD 04/07/2023 Goiter ([facility]) 04/07/2023 Migraine without aura and without status migrainosus, not intractable ([facility]) 04/07/2023 Moderately severe depression ([facility]) 04/07/2023 Hyperemesis gravidarum 05/19/2024 Resolved Ambulatory Problems Diagnosis Date Noted No Resolved Ambulatory Problems Past Medical History: Diagnosis Date Allergic Depression ([facility]) Drug addiction ([facility]) Enlarged thyroid ([facility]) Hepatitis C ([facility]) Hepatitis C ([facility]) Hx of abnormal cervical Pap smear 2014 Migraine Seasonal allergies UTI (urinary tract infection) Vaccine for VZV (varicella-zoster virus) HISTORY PAST MEDICAL HISTORY SOCIAL HISTORY Past Medical History: Diagnosis Date Allergic Depression ([facility]) Drug addiction ([facility]) Heroin , alcohol sober 2015 to 2019 Enlarged thyroid ([facility]) Hepatitis C ([facility]) treatment 2018 Hepatitis C ([facility]) treatment 2018 Hx of abnormal cervical Pap [...] nursing note reviewed. Exam conducted with a systems tester present. Vitals: Estimated body mass index is [...] Patient given orders and orders sent to [facility] Scheduling and [facility]. Patient was given orders for Transferrin and Ferratin. Patient educated on how to check FSBS and given direct extension to probation manager for any questions/concerns. Nursing will reach [...] Jaguar Quintero DO documented in this encounter [facility] 07-19-2024 History of Presen t illness Narrative [...] 04/07/2023 Constipation 04/07/2023 Chronic GERD 04/07/2023 Goiter ([facility]) 04/07/2023 Migraine without aura and without status migrainosus, not intractable ([facility]) 04/07/2023 Moderately severe depression ([facility]) 04/07/2023 Hyperemesis gravidarum 05/19/2024 Resolved Ambulatory Problems Diagnosis Date Noted No Resolved Ambulatory Problems Past Medical History: Diagnosis Date Allergic Depression (CMS/HCC) Drug addiction ([facility]) Enlarged thyroid ([facility]) Hepatitis C ([facility]) Hepatitis C ([facility]) Hx of abnormal cervical Pap smear 2014 Migraine ([facility]) Seasonal allergies UTI (urinary tract infection) Vaccine for VZV (varicella-zoster virus) HISTORY PAST MEDICAL HISTORY SOCIAL HISTORY Past Medical History: Diagnosis Date Allergic Depression (CMS/HCC) Drug addiction ([facility]) Heroin , alcohol sober 2015 to 2019 Enlarged thyroid ([facility]) Hepatitis C ([facility]) treatment 2018 Hepatitis C ([facility]) treatment 2018 Hx of abnormal cervical Pap [...] nursing note reviewed. Exam conducted with a systems tester present. Vitals: Estimated body mass index is [...] Corby Royal NP documented in this encounter [facility] 06-21-2024 History of Presen t illness Narrative [...] aura and without status migrainosus, not intractable ([facility]) 04/07/2023 Moderately severe depression ([facility]) 04/07/2023 Hyperemesis gravidarum 05/19/2024 Resolved Ambulatory Problems [...] nursing note reviewed. Exam conducted with a systems tester present. Vitals: Estimated body mass index is [...] Jaguar Quintero DO documented in this encounter [facility] 05-25-2024 History of Presen t illness Narrative [...] nursing note reviewed. Exam conducted with a systems tester present. Vitals: Estimated body mass index is [...] obtained without difficulty and patient was given [facility] order to have obtained. Orders Placed This [...] of: JORGE Coon documented in this encounter [facility] 04-24-2024 History of Presen t illness Narrative [...] 04/07/2023 Constipation 04/07/2023 Chronic GERD 04/07/2023 Goiter ([facility]) 04/07/2023 Migraine without aura and without status [...] or undercooked meat, and stay away from [facility]. Patient has been consulted regarding any further do's and don'ts of . Patient voiced understanding and all questions and concerns were answered. No orders of the defined types were placed in this encounter. Follow Up: Patient is to return in 4 weeks for routine OB appointment. Documented by Pat Jaime MA on behalf of: Jaguar Quintero DO documented in this encounter [facility] 03-24-2024 History of Presen t illness Narrative [...] or undercooked meat, and stay away from [facility]. Patient has also been advised to [...] Chrissy Gomez MA documented in this encounter [facility] 12-02-2022 Evaluation note Encounter Date Diagnosis Assessment [...] time. Nov, Concentration deficit (ICD-10 - R41.840) [facility] Other 04-27-2023 Evaluation note* Encounter Date Diagnosis [...] f/u if no improvement or worsening symptoms. [facility] Other 03-16-2023 Evaluation note* Encounter Date Diagnosis [...] Z86.19) May, Chronic fatigue (ICD-10 - R53.82) [facility] Other 03-06-2023 Evaluation note* Encounter Date Diagnosis Assessment Notes Treatment Notes Treatment Clinical Notes May, SEEMA (generalized anxiety disorder) (ICD-10 - F41.1) She will call if this does not adequately control her symptoms May, Encounter for other contraceptive management (ICD-10 - Z30.8) [facility] Other 02-16-2023 Evaluation note* Encounter Date Diagnosis Assessment Notes Treatment Notes Treatment Clinical Notes Apr, SEEMA (generalized anxiety disorder) (ICD-10 - F41.1) [facility] Other 07-28-2022 NoteOPERATIVE NOTE OPERATION DATE: 10/16/2021 PROCEDURE: Repeat low transverse section. PREOPERATIVE DIAGNOSIS: 1. Intrauterine at 39 weeks. 2. Previous . POSTOPERATIVE DIAGNOSIS: 1. Intrauterine at 39 weeks. 2. Previous . ANESTHESIA: Spinal with Duramorph. SURGEON: Jaguar Quintero D.O. WEEKEND CAREGIVER: KATHERINE Dao URINE OUTPUT: Yellow and clear. [...] stable condition.[id number] Note DISCHARGE DATE: 10/18/2021 PRIMARY DIAGNOSES: 1. [...] on narcotics.[id number] History general Narrative - Reported* Type Description Date Medical History Hep C - cured as of August 2017 Medical History Miscarriage 06/2018 Surgical History Pre cancerous cells removed- ou tpatient Derm procedure 2012 Surgical History csection 10/16/2021 [facility] Other [id number] History general Narrative - Reported* Type Description Date Medical History Hep C - cured as of August 2017 Medical History Miscarriage 06/2018 Surgical History Pre cancerous cells removed- outpatient Derm procedure 2013 Surgical History x 2 10/16/2021 Surgical History tonsillectomy Hospitalization History see above Hospitalization History child x 2 [facility] Other evaluation noteNo assessment information available [facility] Work Phone: evaluation note* Diagnosis Missed menses [...] [facility] Diagnosis Upper respiratory tract infection, unspecified type- Primary Second trimester state, incidental 25 weeks gestation of Vomiting complicating Unspecified vomiting of , unspecified as to episode of care [facility] Diagnosis Gestational diabetes mellitus (GDM), antepartum, gestational diabetes method of control unspecified- Primary Third trimester state, incidental 31 weeks gestation of Elevated glucose tolerance test Impaired glucose tolerance test Anemia affecting in third trimester [facility] Diagnosis Third trimester ([facility]) state, incidental 34 weeks gestation of ([facility]) Nausea and vomiting in ([facility]) Unspecified vomiting of , unspecified as to episode of care [facility] Diagnosis 35 weeks gestation of ([facility]) Third trimester ([facility]) state, incidental Recurrent cold sores Herpes simplex without mention of complication [facility] Diagnosis Third trimester ([facility]) state, incidental 36 weeks gestation of ([facility]) Gestational diabetes mellitus (GDM), antepartum, gestational diabetes method of control unspecified ([facility]) Anemia affecting in third trimester ([facility]) [facility] Additional Instructions Flexeril for needed for muscle spasms You cannot work or drive when taking Flexeril Ice for the next 24 hours and then rotate heat Tylenol or Motrin if needed for pain Take steroids as directed Follow-up with your doctor Gentle range of motion Avoid heavy lifting Return here if any problems persist or [facility] Work Phone: Hospital Discharge instructions Additional Instructions Follow up with your OB-TAG STRINGER Return to the ED if you develop worsening symptoms or concernsR[facility] Work Phone: Summary Purpose Family History [...] 1 Concentration defici t (R41.840) Referral Organization [facility] Referring Provider First Name Claribel Referring Provider Last Name Mora Referring Provider Specialty Family Medi cine Referred Organization [facility] Referred Address [address] [place], [place],[address] Referred Provider Specialty Psychologist Referral Priority Routine Additional Source Comments INFORMATION SOURCE (unrecogn ized section and content) DATE CREATED AUTHOR 09/13/2017 [facility] DATE CREATED AUTHOR AUTHOR'S ORGANIZ ATION 05/25/2021 [facility] dical Specialist DATE CREATED AUTHOR AUTHOR'S ORGANIZ ATION 02/27/2022 [facility] DATE CREATED AUTHOR AUTHOR'S ORGANIZ ATION 07/15/2024 [facility] DATE CREATED AUTHOR AUTHOR'S ORGANIZ ATION 10/08/2024 [facility] EPIC REASON FOR VISIT [...] November 25, 2023 End: November 25, 2023 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 Control Programmer Relationship Specialty Start Date End Date Kb Hollis DO [address] [place] [address] PCP - General Family Medicine 04/12/23 Enoch Villalobos DO [address] [place] [address] PCP - [facility] 06/21/23 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 Control Programmer Relationship Specialty Start Date End Date Kb Hollis DO [address] [place] [address] PCP - General Family Medicine 04/12/23 Enoch Villalobos DO [address] [place] [address] PCP - [facility] 06/21/23 Team Status: Inactive Member Role [...] April 05, 2024 End: April 05, 2024 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 Control Programmer Relationship Specialty Start Date End Date Kb Hollis DO [address] [place] [address] PCP - General Family Medicine 04/12/23 Enoch Villalobos DO [address] [place] [address] PCP - [facility] 06/21/23 5 Team Status: Inactive Member Role [...] May 19, 2024 End: May 19, 2024 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 Control Programmer Relationship Specialty Start Date End Date Kb Hollis DO [address] [place] [address] PCP - General Family Medicine 04/12/23 Enoch Villalobos DO [address] [place] [address] PCP - [facility]h [facility] 06/21/232 5 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 Control Programmer Relationship Specialty Start Date End Date Kb Hollis DO [address] [place] [address] PCP - General Family Medicine 04/12/23 Enoch Villalobos DO [address] [place] [address] PCP - [facility] 06/21/23 5 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 Control Programmer Relationship Specialty Start Date End Date Kb Hollis DO [address] [place] [address] PCP - General Family Medicine 04/12/23 Enoch Villalobos DO [address] [place] [address] PCP - [facility] [employer] 06/21/23 5 Team Status: Inactive Member Role Status Hilda Hollis DO Primary Care Provider Active Start: June 07, 2024 End: June 07, 2024 Mateo Navas DO Emergency Provider Active Sta rt: June 07, 2024 End: June 07, 2024 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 Control Programmer Relationship Specialty Start Date End Date Kb Hollis DO [address] [place] [address] PCP - General Family Medicine 04/12/23 Enoch Villalobos DO [address] [place] [address] PCP - [facility] [employer] 06/21/232 5 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 Control Programmer Relationship Specialty Start Date End Date Kb Hollis DO [address] [place] [address] PCP - General Family Medicine 04/12/23 Enoch Villalobos DO [address] [place] [address] PCP - [facility] 06/21/23 5 Team Status: Inactive Member Role Status Hilda Hollis DO Primary Care Provider Active Start: June 29, 2024 End: June 29, 2024 Parminder Serrano PA-C Emergency Provider Active Start: June 29, 2024 End: June 29, 2024 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 Control Programmer Relationship Specialty Start Date End Date Kb Hollis DO [address] [place] [address] PCP - General Family Medicine 04/12/23 Enoch Villalobos DO [address] [place] [address] PCP - [facility] 06/21/23 5 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 Control 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 Relationship Specialty Start Date End Date Kb Hollis DO [address] [place] [address] PCP - General Family Medicine 04/12/23 Enoch Villalobos DO [address] [place] [address] PCP - [facility] 06/21/23 5 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 Control Programmer Relationship Specialty Start Date End Date Kb Hollis DO [address] [place] [address] PCP - General Family Medicine 04/12/23 Enoch Villalobos DO [address] [place] [address] PCP - [facility] [place] [facility] 06/21/23 5 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 Control Programmer Relationship Specialty Start Date End Date Kb Hollis DO [address] [place] [address] PCP - General Family Medicine 04/12/23 Enoch Villalobos DO [address] [place] [address] PCP - [facility] [place] [facility] 06/21/23 5 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 Control Programmer Relationship Specialty Start Date End Date Kb Hollis DO [address] [place] [address] PCP - General Family Medicine 04/12/23 Enoch Villalobos, [address] [place] [address] PCP - [facility] [place] [facility] 06/21/23 5 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 Control Programmer Relationship Specialty Start Date End Date Kb Hollis DO [address] [place] [address] PCP - General Family Medicine 04/12/23 Enoch Villalobos, [address] [place] [address] PCP - [facility] [place] [facility] 06/21/23 5 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 Control Programmer Relationship Specialty Start Date End Date Kb Hollis DO [address] [place] [address] PCP - General Family Medicine 04/12/23 Enoch Villalobos DO [address] [place] [address] PCP - [facility] [place] [facility] [employer] 06/21/23 5 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 Control Programmer Relationship Specialty Start Date End Date Kb Hollis DO [address] [place] [address] PCP - General Family Medicine 04/12/23 Enoch Villalobos, [address] [place] [address] PCP - [facility] [place] [facility] 06/21/23 5 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 Control Programmer Relationship Specialty Start Date End Date Kb Hollis DO [address] [place] [address] PCP - General Family Medicine 04/12/23 Enoch Villalobos, DO [address] [place] [address] PCP - [facility] 06/21/23 5 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 Control Programmer Relationship Specialty Start Date End Date Kb Hollis DO [address] [place] [address] PCP - General Family Medicine 04/12/23 Enoch Villalobos, [address] [place] [address] PCP - [facility] [place] [facility] [employer] 06/21/23 5 Goals (unrecognized section and content) [...] BE BASED ON THE PRIMARY CLINICAL RECORDS. [facility] provides no warranty or guarantee of the accuracy or completeness of information in this document.
[2024-10-10 05:39] LABS: Hematocrit 28.4 % (36.0-48.0); Hemoglobin 8.7 g/dL (12.0-16.0); Immature Granulocytes Abs Auto 0.16 10^3/uL (0.00-0.03); Immature Granulocytes Pct Auto 1.6 % (0.0-0.5); Lymphocytes Absolute Auto 1.6 10^3/uL (1.2-3.8); Mean Corpuscular HGB Conc 30.6 g/dL (29.9-35.2); Mean Corpuscular Hemoglobin 24.0 pg (26.7-34.0); Mean Corpuscular Volume 78.5 fL (81.0-99.0); Platelet Count 188 10^3/uL (150-450); Red Blood Count 3.62 10^6/uL (4.20-5.40); White Blood Count 9.9 10^3/uL (4.0-11.0)
[2024-10-10 05:40] LABS: Glucose Urine UA NEGATIVE (NEGATIVE)
[2024-10-10] MEDS: FAMOTIDINE/PF 20 MG/2 ML VIAL IV (05:49)
[2024-10-10] MEDS: METOCLOPRAMIDE HCL 10 MG/2 ML VIAL IVP (05:49)
[2024-10-10] MEDS: CITRIC ACID/SODIUM CITRATE 30 ML SOLUTION ORACIT SHOHL'S SOLN PO (05:49)
[2024-10-10 06:16] LABS: Cannabinoid Screen Urine POSITIVE (NEGATIVE); Methamphetamines Screen Urine NEGATIVE (NEGATIVE); Tricyclic Antidepressant Urine NEGATIVE (NEGATIVE)
[2024-10-10 06:19] LABS: Cast Seen? NONE SEEN #/LPF (NONE SEEN); Crystals Seen? None Seen #/HPF (None Seen); Urine Culture Indicated NO
[2024-10-10] MEDS: CEFAZOLIN SODIUM/DEXTROSE,ISO 2 GM/50 ML PIGGYBACK IV ×2 (07:45→14:33)
--- NOTE | 2024-10-10 08:40 | PM.ONB ---
Brief Operative Note Date of procedure: 10/10/24 Pre-op diagnosis general: iup at 37 3/7wks, previous c/s, ho hsv, desires permanent sterilization Post-op diagnosis: same as pre-op Procedure: NAME OF PROCEDURE: [ section with bilateral salpingectomy ] PROCEDURE: Patient was taken back to the Operating Room where she was given a spinal anesthesia with Duramorph without difficulty. She was prepped and draped in the normal sterile fashion. A Pfannenstiel skin incision was then made 2?cm above the symphysis pubis and carried down to underlying rectus fascia using a Bovie. The fascia was incised in the midline and extended laterally using Montanez scissors. Two Cathi clamps were placed on the superior aspect of the fascia and dissected off the underlying rectus muscles. The same was performed on the inferior aspect as well. The muscles were then in the midline. Peritoneum was identified and entered bluntly. The peritoneum was then extended superiorly and inferiorly with good visualization of the bladder. The bladder blade was inserted. Vesicouterine peritoneum was identified, tented up, and entered with Metzenbaum scissors. A bladder flap was then created digitally. The bladder blade was reinserted. A low transverse incision was made on the patient's uterus and extended laterally digitally. The was then delivered atraumatically after the bladder blade was removed in the cephalic position. The cord was clamped and cut. Cord blood was obtained. The was handed off to awaiting team. The patient's placenta was spontaneously delivered. The uterus was then exteriorized. The uterus was cleared of all clots and debris. The bladder blade was reinserted. The patient's uterine incision was closed using #0 Vicryl in a running lock fashion. Excellent hemostasis was assured.? The rt tube was identified and grasped with babock, the ligasure was used to transect and ligate the tube in its entirity, this was done on the contralateral side as well. The uterus was then returned to the patient's abdomen. The patient's abdomen was copiously irrigated using warm saline. Peritoneal gutters were cleared of all clots and debris. Again excellent hemostasis was assured. The patient's fascia was closed using #0 Vicryl in a running fashion. The patient's skin was closed using 4-0 Vicryl subcuticularly. The patient tolerated the procedure well. Sponge, lap, and needle counts were correct x2. The patient was taken to the Recovery Room in stable condition. Anesthesia: spinal Surgeon: Jaguar Quintero [employer] Assistant Director: Nirali De Estimated blood loss (mL): 575 Pathology: other (tubes) Condition: stable Disposition: floor Urinary Catheter Management Urinary Catheter Management Urethral: Cath placed during this visit: no
--- NOTE | 2024-10-10 08:44 | P.OBPRC_ITS ---
Procedure Pre-op/Post-op diagnoses: Pre-Op/Post-Op Diagnoses Operation Date: 10/10/24 07:30 <No data on this case meets the specified criteria> Procedure: Procedures Operation Date: 10/10/24 07:30 Actual Procedure Side Surgeon p Repeat with bilateral Salpingectomy Not Applicable Jaguar Quintero DO Media Executive: Nirali De Estimated blood loss (mL): 575 Disposition: floor Anesthesia type: Spinal
[2024-10-10] MEDS: KETOROLAC TROMETHAMINE 30 MG/ML VIAL IVP ×2 (14:33→21:11)
[2024-10-10] MEDS: ENOXAPARIN SODIUM 40 MG/0.4 ML SYRINGE SUBQ (21:11)
[2024-10-11] MEDS: KETOROLAC TROMETHAMINE 30 MG/ML VIAL IVP ×2 (03:30→09:09)
[2024-10-11] MEDS: CITALOPRAM HYDROBROMIDE 20 MG TABLET 40 MG PO (03:33)
[2024-10-11 03:35] VITALS: BP 107/58; PULSE 80; TEMP 36.6
--- NOTE | 2024-10-11 04:03 | W.PC.ACHO ---
Registration Status: ADM IN Primary Language: Preferred Language: Tajik Report received at 1900 from Kody GAYTAN. Care assumed. Active Medications Generic Name Dose Route Start Last Admin Trade Name Freq PRN Reason Stop Dose Admin Al Hydroxide/Mg Hydroxide 2,400 mg 10/10/24 08:44 Magnesium Hydroxide 2,400 Mg/10 Ml Oral.Susp PO Q6H PRN Dyspepsia Celecoxib 40 mg 10/10/24 21:00 10/11/24 03:33 Citalopram Hydrobromide 20 Mg Tablet PO 40 mg Q24H ROBSON Administration Diphenhydramine HCl 25 mg 10/10/24 08:44 Diphenhydramine Hcl 50 Mg/Ml Vial IV 10/11/24 08:45 Q6H PRN Itching Docusate Sodium 100 mg 10/11/24 09:00 Docusate Sodium 100 Mg Capsule PO BID ROBSON Enoxaparin Sodium 40 mg 10/10/24 21:00 10/10/24 21:11 Enoxaparin Sodium 40 Mg/0.4 Ml Syringe SUBQ 40 mg Q24H ROBSON Administration Sodium Chloride 1,000 mls @ 125 mls/hr 10/10/24 05:00 Sodium Chloride 0.9% 1,000 Ml IV .Q8H ROBSON Oxytocin/Sodium Chloride 20 units in 1,000 mls @ 125 mls/hr 10/10/24 04:59 Pitocin 20 Unit/1,000 Ml-Ns IV Q8H PRN POST DELIVERY Promethazine HCl 25 mg/ Sodium 51 mls @ 204 mls/hr 10/10/24 08:44 Chloride IV Q6H PRN Nausea And Vomiting Sodium Chloride 1,000 mls @ 125 mls/hr 10/10/24 08:44 Sodium Chloride 0.9% 1,000 Ml IV .Q8H PRN IF NOT TOLERATING PO FLUIDS OR Ibuprofen 800 mg 10/10/24 08:44 Ibuprofen 400 Mg Tablet PO Q8H PRN Pain Ketorolac Tromethamine 30 mg 10/10/24 08:44 10/11/24 03:30 Ketorolac Tromethamine 30 Mg/Ml Vial IVP 10/12/24 08:45 30 mg Q6H PRN Administration Pain Measles/Mumps/Rubella Vaccine Live 0.5 ml 10/12/24 09:00 Measles,Mumps,Rubella Vacc/Pf 0.5 Ml Vial SQ 10/12/24 09:01 .ONCE ONE Nalbuphine HCl 10 mg 10/10/24 08:44 Nalbuphine Hcl 10 Mg/Ml Ampule IV 10/11/24 08:45 Q3H PRN Itching Ondansetron HCl 4 mg 10/10/24 08:44 Ondansetron Pf 4 Mg/2 Ml Vial IV Q6H PRN Nausea And Vomiting Ondansetron HCl 4 mg 10/10/24 08:44 Ondansetron 4 Mg Rapdis Tablet PO Q6H PRN Nausea And Vomiting Oxycodone/Acetaminophen 1 tab 10/10/24 08:44 Oxycodone Hcl/Acetaminophen 5mg/325mg PO Q4H PRN Pain Scale 4-6 Oxycodone/Acetaminophen 2 tab 10/10/24 08:44 Oxycodone Hcl/Acetaminophen 5mg/325mg PO Q4H PRN Pain Scale 7-10 Senna 17.2 mg 10/10/24 20:00 Sennosides 8.6 Mg Tablet PO QHS PRN Constipation Simethicone 80 mg 10/10/24 08:44 Simethicone 80 Mg Tab.Chew PO QID PRN Abdominal Distention Diet Category Date Time Status Regular Consistency Diet Diet 10/10/24 08:45 Active IV Insertion/Site Date of IV Line Insertion [ 10/10/24 Short PIV (<1.75 in) 20g left Hand] IV Insertion Time [Short PIV ( 05:15 <1.75 in) 20g left Hand] Neurology Patient orientation (short person,place,time,situation list) Respiratory Pulse Oximetry 98 Pulse Oximetry 99 Pulse Oximetry 99 Pulse Oximetry 99 Pulse Oximetry 100 Pulse Oximetry 100 Pulse Oximetry 99 Pulse Oximetry 100 Pulse Oximetry 100 Pulse Oximetry 100 Pulse Oximetry 100 Pulse Oximetry 100 Pulse Oximetry 100 Pulse Oximetry 100 Pulse Oximetry 97 Oxygen Delivery Method Room Air Catheter Urinary Catheter Date of 10/10/24 Insertion [Urethral] Urinary Catheter Time of 08:00 Insertion [Urethral] Date Urinary Catheter Removed 10/10/24 [Urethral] Time Urinary Catheter 16:30 Discontinued [Urethral]
[2024-10-11 06:46] LABS: Hematocrit 25.2 % (36.0-48.0); Hemoglobin 7.8 g/dL (12.0-16.0); Immature Granulocytes Abs Auto 0.18 10^3/uL (0.00-0.03); Immature Granulocytes Pct Auto 1.6 % (0.0-0.5); Lymphocytes Absolute Auto 2.1 10^3/uL (1.2-3.8); Mean Corpuscular HGB Conc 31.0 g/dL (29.9-35.2); Mean Corpuscular Hemoglobin 24.5 pg (26.7-34.0); Mean Corpuscular Volume 79.0 fL (81.0-99.0); Platelet Count 183 10^3/uL (150-450); Red Blood Count 3.19 10^6/uL (4.20-5.40); White Blood Count 11.1 10^3/uL (4.0-11.0)
--- NOTE | 2024-10-11 07:17 | W.PC.ACHO ---
Registration Status: ADM IN Primary Language: Preferred Language: Nepali Report given to Fozia GAYTAN at 0705. Care relinquished. Active Medications Generic Name Dose Route Start Last Admin Trade Name Freq PRN Reason Stop Dose Admin Al Hydroxide/Mg Hydroxide 2,400 mg 10/10/24 08:44 Magnesium Hydroxide 2,400 Mg/10 Ml Oral.Susp PO Q6H PRN Dyspepsia Celecoxib 40 mg 10/10/24 21:00 10/11/24 03:33 Citalopram Hydrobromide 20 Mg Tablet PO 40 mg Q24H ROBSON Administration Diphenhydramine HCl 25 mg 10/10/24 08:44 Diphenhydramine Hcl 50 Mg/Ml Vial IV 10/11/24 08:45 Q6H PRN Itching Docusate Sodium 100 mg 10/11/24 09:00 Docusate Sodium 100 Mg Capsule PO BID ROBSON Enoxaparin Sodium 40 mg 10/10/24 21:00 10/10/24 21:11 Enoxaparin Sodium 40 Mg/0.4 Ml Syringe SUBQ 40 mg Q24H ROBSON Administration Sodium Chloride 1,000 mls @ 125 mls/hr 10/10/24 05:00 Sodium Chloride 0.9% 1,000 Ml IV .Q8H ROBSON Oxytocin/Sodium Chloride 20 units in 1,000 mls @ 125 mls/hr 10/10/24 04:59 Pitocin 20 Unit/1,000 Ml-Ns IV Q8H PRN POST DELIVERY Promethazine HCl 25 mg/ Sodium 51 mls @ 204 mls/hr 10/10/24 08:44 Chloride IV Q6H PRN Nausea And Vomiting Sodium Chloride 1,000 mls @ 125 mls/hr 10/10/24 08:44 Sodium Chloride 0.9% 1,000 Ml IV .Q8H PRN IF NOT TOLERATING PO FLUIDS OR Ibuprofen 800 mg 10/10/24 08:44 Ibuprofen 400 Mg Tablet PO Q8H PRN Pain Ketorolac Tromethamine 30 mg 10/10/24 08:44 10/11/24 03:30 Ketorolac Tromethamine 30 Mg/Ml Vial IVP 10/12/24 08:45 30 mg Q6H PRN Administration Pain Measles/Mumps/Rubella Vaccine Live 0.5 ml 10/12/24 09:00 Measles,Mumps,Rubella Vacc/Pf 0.5 Ml Vial SQ 10/12/24 09:01 .ONCE ONE Nalbuphine HCl 10 mg 10/10/24 08:44 Nalbuphine Hcl 10 Mg/Ml Ampule IV 10/11/24 08:45 Q3H PRN Itching Ondansetron HCl 4 mg 10/10/24 08:44 Ondansetron Pf 4 Mg/2 Ml Vial IV Q6H PRN Nausea And Vomiting Ondansetron HCl 4 mg 10/10/24 08:44 Ondansetron 4 Mg Rapdis Tablet PO Q6H PRN Nausea And Vomiting Oxycodone/Acetaminophen 1 tab 10/10/24 08:44 Oxycodone Hcl/Acetaminophen 5mg/325mg PO Q4H PRN Pain Scale 4-6 Oxycodone/Acetaminophen 2 tab 10/10/24 08:44 Oxycodone Hcl/Acetaminophen 5mg/325mg PO Q4H PRN Pain Scale 7-10 Senna 17.2 mg 10/10/24 20:00 Sennosides 8.6 Mg Tablet PO QHS PRN Constipation Simethicone 80 mg 10/10/24 08:44 Simethicone 80 Mg Tab.Chew PO QID PRN Abdominal Distention Diet Category Date Time Status Regular Consistency Diet Diet 10/10/24 08:45 Active Respiratory Pulse Oximetry 98 Pulse Oximetry 100 Pulse Oximetry 98 Pulse Oximetry 99 Pulse Oximetry 99 Pulse Oximetry 99 Pulse Oximetry 98 Pulse Oximetry 99 Pulse Oximetry 99 Pulse Oximetry 99 Pulse Oximetry 100 Pulse Oximetry 100 Pulse Oximetry 99 Pulse Oximetry 100 Pulse Oximetry 100 Pulse Oximetry 100 Pulse Oximetry 100 Pulse Oximetry 100 Pulse Oximetry 100 Pulse Oximetry 100 Pulse Oximetry 97 Oxygen Delivery Method Room Air Oxygen Delivery Method Room Air Oxygen Delivery Method Room Air Oxygen Delivery Method Room Air Cardiology Heart Sounds Regular,Strong Heart Sounds Regular,Strong Heart Sounds Regular,Strong Bowels Bowel Pattern No Bowel Movement Bowel Pattern No Bowel Movement Bowel Pattern No Bowel Movement Renal Bladder Pattern Continent Bladder Pattern Continent Bladder Pattern Continent Catheter Urinary Catheter Date of 10/10/24 Insertion [Urethral] Urinary Catheter Time of 08:00 Insertion [Urethral] Date Urinary Catheter Removed 10/10/24 [Urethral] Time Urinary Catheter 16:30 Discontinued [Urethral]
[2024-10-11 09:03] VITALS: TEMP 36.6
[2024-10-11 09:04] VITALS: BP 109/69; PULSE 84
[2024-10-11] MEDS: DOCUSATE SODIUM 100 MG CAPSULE PO ×2 (09:09→21:42)
--- NOTE | 2024-10-11 10:58 | P.OBPN_ITS ---
OB - PN: Subj Subjective Patient comments: no complaints and pain well controlled [place] status: doing well Exam Constitutional Vital Signs, click to edit/add: Last Vital Signs Temp 97.9 F 10/11/24 09:03 Pulse 84 10/11/24 09:04 Resp 18 10/11/24 09:03 BP 109/69 10/11/24 09:04 Pulse Ox 98 10/10/24 23:45 O2 Del Method Room Air 10/11/24 09:14 Documenting provider has reviewed patient's vital signs: yes Common normals: no apparent distress Respiratory Common normals: normal respiratory effort and clear to auscultation bilaterally Cardio Common normals: regular rate and regular rhythm GI Common normals: Normal to inspection, nondistended, normoactive bowel sounds present Extremity Common normals: no clubbing, cyanosis or edema and no calf tenderness Results Labs Labs: Short CBC 10/11/24 Range/Units 06:19 WBC 11.1 H (4.0-11.0) 10^3/uL Hgb 7.8 L (12.0-16.0) g/dL Hct 25.2 L (36.0-48.0) % Plt Count 183 (150-450) 10^3/uL Urinary Catheter Management Urinary Catheter Management Urethral: Cath placed during this visit: yes, but has since been removed by the yosi se Insertion date: 10/10/24 Insertion time: 08:00 Removal date: 10/10/24 Removal time: 16:30 OB - PN: A/P Plan - day: 1 Plan: routine postop care Time Spent with Patient Time: Total time spent is greater than 50% in coordination of care (as documented) at patient's floor/unit and/or counseling patient: Total time spent with greater than 50% in coordination of care (as documented) at patient's floor/unit and/or counseling patient: less than 15 minutes
--- NOTE | 2024-10-11 11:15 | SWNOTE1 ---
SW consulted due to positive drug screen on admission for THC. SW met with pt and in room. Pt voiced she is feeling well and baby is doing well too. They voiced they have everything they need at home for baby. They do have 2 daughters together, they are 3 & 5. Pt's also has a daughter who is 11. They voiced they do have good support at home as well. SW and pt spoke about Post Depression, pt did not have with her other children, but will reach out to support when needed. SW did ask her about WIC. She voiced she has not called yet. She stated she used to be on it, but then stopped. She does plan on calling them and still has there number saved. SW did speak with patient about her positive THC drug screen on admission. She voiced she would take a few hits here and there due to her nausea and to help her eat. She voiced she was very nauseous throughout this . She voiced she did tell her physician as well. She spoke about [employer] and that not working as well. She does not have medical marijuana card. She does not plan on continuing use once home. 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 Pt did voice understanding, pt's did ask about Marijuana being legal and if SW still had to call. SW did let him know that SW does still need to call. No further questions at this time. Report made to [facility] CPS. HIPAA form filled out and sent to Alia Dykes.
[2024-10-11] MEDS: IBUPROFEN 400 MG TABLET 800 MG PO (16:08)
[2024-10-11 16:10] VITALS: BP 97/65; PULSE 85; TEMP 37.1
--- NOTE | 2024-10-11 17:08 | RESP.RT ---
Done per nursing
[2024-10-11] MEDS: OXYCODONE HCL/ACETAMINOPHEN 5MG/325MG 2 TAB PO (21:42)
[2024-10-11] MEDS: ENOXAPARIN SODIUM 40 MG/0.4 ML SYRINGE SUBQ (21:42)
[2024-10-12] MEDS: IBUPROFEN 400 MG TABLET 800 MG PO ×2 (00:25→08:11)
[2024-10-12 00:26] VITALS: BP 94/57; PULSE 86; TEMP 36.8
[2024-10-12] MEDS: DOCUSATE SODIUM 100 MG CAPSULE PO (08:11)
--- NOTE | 2024-10-12 08:20 | PM.OBPN ---
OB - PN: Subj Subjective Patient comments: no complaints [place] status: doing well [place] feeding status: exclusively Exam Constitutional Vital Signs, click to edit/add: Last Vital Signs Temp 98.2 F 10/12/24 00:26 Pulse 86 10/12/24 00:26 Resp 16 10/12/24 00:26 BP 94/57 10/12/24 00:26 Pulse Ox 98 10/10/24 23:45 O2 Del Method Room Air 10/12/24 00:26 Documenting provider has reviewed patient's vital signs: yes Common normals: no apparent distress General appearance: cooperative, comfortable and well kempt Orientation/consciousness: Yes awake, Yes oriented to person, Yes oriented to place and Yes oriented to time HENMT Common normals: normocephalic Eye Common normals: EOMs intact bilaterally General eye: normal appearance of both eyes Neck & C-Spine Common normals: full ROM Lymph Lymphatic: no lymphadenopathy noted Chest Common normals: inspection of chest normal Respiratory Common normals: normal respiratory effort Effort & inspection: able to speak in complete sentences Auscultation: clear to auscultation bilaterally Cardio Common normals: regular rate and regular rhythm Rate: regular rate Rhythm: regular rhythm GI Common normals: Normal to inspection, nondistended, normoactive bowel sounds present Inspection: normal to inspection Auscultation: normoactive bowel sounds Palpation: soft Common normals: no CVA tenderness Back & Pelvis Common normals: no CVA tenderness Extremity Common normals: normal to inspection and full ROM Neuro Common normals: oriented x3 Psych Common normals: mental status grossly normal, thought process normal, cooperative, affect normal, speech normal, activity/motor behavior normal, denies hallucinations, denies homicidal ideation and denies suicidal ideation Urinary Catheter Management Urinary Catheter Management Urethral: Cath placed during this visit: yes, but has since been removed by the nurse Insertion date: 10/10/24 Insertion time: 08:00 Removal date: 10/10/24 Removal time: 16:30 OB - PN: A/P Assessment and Plan (1) Delivery by section: Plan - day: 2 Plan: routine postop care Time Spent with Patient Time: Total time spent is greater than 50% in coordination of care (as documented) at patient's floor/unit and/or counseling patient: Total time spent with greater than 50% in coordination of care (as documented) at patient's floor/unit and/or counseling patient: less than 15 minutes
[2024-10-12 08:47] VITALS: BP 110/71; PULSE 78; TEMP 36.7
[2024-10-12] MEDS: OXYCODONE HCL/ACETAMINOPHEN 5MG/325MG 2 TAB PO (09:07)
[2024-10-13 17:14] LABS: Carboxy THC Conf, MS, UR >750 ng/mL (Cutoff=10)
== END 2024-10-12 10:45 | disposition home or self-care (01) | DRG 539 ==
PROVIDERS: Admitting Provider Obstetrics & Gynecology; PCP Family Medicine; Visit Provider Obstetrics & Gynecology
PROC: 10D00Z1 Extraction of Products of Conception, Low, Open Approach (ICD-10-PCS; CPT 59514; principal; 2024-10-10 07:30)
DX: O34.211 Maternal care for low transverse scar from previous cesarean delivery (principal); O24.429 Gestational diabetes mellitus in childbirth, unspecified control; O99.324 Drug use complicating childbirth; F12.90 Cannabis use, unspecified, uncomplicated; Z3A.37 37 weeks gestation of pregnancy; Z37.0 Single live birth; Z30.2 Encounter for sterilization; Z87.891 Personal history of nicotine dependence; Z87.440 Personal history of urinary (tract) infections; F10.11 Alcohol abuse, in remission; F11.20 Opioid dependence, uncomplicated; F14.11 Cocaine abuse, in remission; Z87.59 Personal history of other complications of pregnancy, childbirth and the puerperium; D50.9 Iron deficiency anemia, unspecified
CPT/HCPCS: 36415; 51702; 80307; 80349; 81001; 85025; 86850; 86900; 86901; 88302; 94667; 94668; 96365; 96375; J0690; J1100; J1439; J1650; J1885; J2274; J2371; J2405; J2590; J2765; J3490